=== PATIENT | male | born 1955 | race Caucasian/White ===

== ENCOUNTER 2020-02-23 15:49 | Outpatient (CLI) | payer MEDICARE, SELFPAY ==
--- NOTE | ~2020-02-23 | MR_ITS ---
EXAMINATION: MR lumbar spine wo/w con DATE: 02/23/2020 17:40 INDICATION: Lumbar radiculopathy. TECHNIQUE: Magnetic resonance imaging (MRI) of the lumbar spine was performed without and with 20 mL MultiHance intravenous contrast. Sequences included sagittal T2-weighted FSE, sagittal T2-weighted FS FSE, and sagittal and axial T1-weighted FSE. Postcontrast sequences included axial T2-weighted FSE a nd axial and sagittal T1-weighted FS FSE. COMPARISON: Lumbar spine MRI 12/05/2017 FINDINGS: There is 8 degrees dextrocurvature of lumbar spine. There is 4 mm retrolisthesis of L1 on L 2 and L2 on L3. There is a chronic burst fracture of L1 with 2/5 loss of height. There are changes of posterior fusion procedure from L3 to L5 with pedicle screws and laminectomies. There is a 2.3 x 0.9 x 1.9 cm fluid collection in the postlaminectomy space, consistent with a seroma. There is severely decreased disc height at L1-L2 and L2-L3, moderately decreased disc height at L3-L4, mildly decreased disc height at L4-L5, and severely decreased disc height at L5-S1. The distal spinal cord signal int ensity is normal. The conus medullaris is at L1. The following disc levels are specifically discussed : L1-L2: The disc is bulging. There is severe bilateral facet joint osteoarthritis. There is mild right and moderate left neural foraminal stenosis. There is mild central canal stenosis. L2-L3: The disc is bulging and has an annular fissure. There is severe bilateral facet joint osteoart hritis. There is moderate bilateral neural foraminal stenosis. There is severe central canal stenosis . L3-L4: The disc is bulging and has an annular fissure. There is mild bilateral facet joint hypertroph y. There is mild bilateral neural foraminal stenosis. There is mild central canal stenosis. L4-L5: The disc is bulging and has an annular fissure. There is severe bilateral facet joint hypertro phy. There is mild bilateral neural foraminal stenosis. There is mild central canal stenosis. L5-S1: The disc is bulging and has an annular fissure. There is severe right and moderate left facet joint osteoarthritis. There is mild bilateral neural foraminal stenosis. There is mild central canal stenosis. IMPRESSION: 1. Severe lumbar spondylosis, stable from 12/05/2017. 2. Posterior fusion procedure from L3 to L5. Reviewed, dictated and finalized at location E.
[2020-02-23 17:01] LABS: Estimated Glomerular Filt Rate > 60
== END 2020-02-23 15:50 | disposition home or self-care (01) ==
PROVIDERS: PCP Internal Medicine
DX: M47.26 Other spondylosis with radiculopathy, lumbar region (principal); Z98.1 Arthrodesis status
CPT/HCPCS: 36415; 72158; A9577

== ENCOUNTER 2020-06-29 08:27 | Outpatient (CLI) | payer MEDICARE, SELFPAY ==
--- NOTE | ~2020-06-29 | NM_ITS ---
EXAMINATION: NM bone 3 phase DATE: 06/29/2020 12:36 INDICATION: Other mechanical complication of other specified internal prosthetic. TECHNIQUE: 25.2 mCi Tc-99m HDP was administered intravenously. Scintigrams of the knees were obtained in angiographic, blood pool, and delayed phases. COMPARISON: Bilateral knee radiographs 05/05/2020 FINDINGS: Angiographic phase images are normal. The intermediate static and delayed phases images dem onstrate increased activity in both knees at the distal femora, proximal tibiae, and patellae adjacen t to the arthroplasties. The radiographs demonstrate no periprosthetic lucencies to suggest loosening or infection. IMPRESSION: 1. Increased activity around the arthroplasties of both knees, which is a nonspecific finding and ma y be normal or may be a sign of loosening or infection. Reviewed, dictated and finalized at location A. IMPRESSION: 1. Increased activity around the arthroplasties of both knees, which is a nons pecific finding and may be normal or may be a sign of loosening or infection.
--- NOTE | ~2020-06-29 | XR_ITS ---
XR lumbar spine 2-3V 06/29/2020 09:12 Indication: Low back pain Procedure: 3 views lumbar spine Comparison: MRI dated 02/23/2020 Findings: There is subtle retrolisthesis at L1-2. There is chronic burst fracture of L1. There is dis c narrowing at all lumbar levels. There are changes of posterior fusion from L3-L5 with pedicle screw s and laminectomies. There is lateral bone graft mass at the fusion levels. Sacral foramen are symmet cesar. There is a left hip arthroplasty. No significant change to alignment from MRI overlying for diff erences of technique. Impression: 1: Severe lumbar spondylosis, stable alignment. 2: Posterior spinal fusion at L3-L5. Reviewed, dictated and finalized at location A. Impression: 1: Severe lumbar spondylosis, stable alignment. 2: Posterior spinal fusion at L3-L5.
== END 2020-06-29 08:28 | disposition home or self-care (01) ==
PROVIDERS: PCP Internal Medicine; Referring Provider Neurological Surgery; Visit Provider Orthopaedic Surgery
DX: T85.698A Other mechanical complication of other specified internal prosthetic devices, implants and grafts, initial encounter (principal); M47.896 Other spondylosis, lumbar region; Z98.1 Arthrodesis status
CPT/HCPCS: 72100; 78315; A9561

== ENCOUNTER 2020-08-11 10:00 | Outpatient (CLI) | payer MEDICARE, SELFPAY ==
--- NOTE | 2020-08-11 | ECG_ITS ---
Measurements Intervals [place] Rate: 84 P: [place]: 0 QRS: -12 QRSD: 108 T: 8 QT: 394 QTc: 468 Interpretive Statements ATRIAL FIBRILLATION BORDERLINE T WAVE ABNORMALITY- INFERIOR LEADS ABNORMAL ECG Electronically Signed On 08-11-2020 10:47:00 BAG SEALER by Shen Parsons D.O.
== END 2020-08-11 10:01 | disposition home or self-care (01) ==
LOC: ANHCARD 10:03
PROVIDERS: PCP Internal Medicine; Visit Provider Orthopaedic Surgery
DX: Z01.818 Encounter for other preprocedural examination (principal); I48.91 Unspecified atrial fibrillation
CPT/HCPCS: 93005

== ENCOUNTER 2020-08-19 11:27 | Emergency (ER) | payer MEDICARE, SELFPAY ==
--- NOTE | ~2020-08-19 | CT_ITS ---
EXAMINATION: CTA chest PE protocol DATE: 08/19/2020 13:40 INDICATION: Chest pain. COVID-19 pneumonia. TECHNIQUE: Computed tomography angiography (CTA) of the chest was performed with 100 mL Omnipaque-350 intravenous contrast timed to evaluate the pulmonary arteries. Coronal maximum intensity projection 3D-reconstructions were created by the technologist. Automated exposure control and iterative reconst ruction technique were employed. The dose-length product was 946.95 mGy-cm. COMPARISON: CT abdomen 03/26/2008, chest single view 08/19/2020 FINDINGS: There are peripheral groundglass opacities in all lobes, left worse than right. No pleural effusion. The heart size is normal. There are coronary artery calcifications. No pericardial effusion . There is no pulmonary embolus. There are gallstones in the gallbladder, which is normal in size. Gy necomastia is noted. There is a multinodular goiter. There are bridging endplate osteophytes at multi ple levels in the spine, consistent with diffuse idiopathic skeletal hyperostosis (DISH). There is mo derate thoracic spondylosis. IMPRESSION: 1. No pulmonary embolus. 2. Multifocal peripheral lung disease, consistent with COVID-19 pneumonia. Reviewed, dictated and finalized at location A. E SPLITTER
--- NOTE | ~2020-08-19 | XR_ITS ---
EXAMINATION: XR chest 1V portable DATE: 08/19/2020 13:11 INDICATION: COVID-19 pneumonia. TECHNIQUE: A single frontal view of the chest was obtained on 2 radiographs. COMPARISON: Chest 2 views 10/05/2018 FINDINGS: There are mild airspace opacities in left mid and lower lung zones. No pleural effusion or pneumothorax. The heart size is normal. IMPRESSION: 1. Mild airspace opacities in left mid and lower lung zones, consistent with pneumonia. Reviewed, dictated and finalized at location A. TENANCE MECHANIC MILLWRIGHT IMPRESSION: 1. Mild airspace opacities in left mid and lower lung zones, consistent with pn eumonia.
[2020-08-19 11:34] VITALS: BP 107/63; PULSE 109; RESP 18; TEMP 38.1; O2SAT 99
--- NOTE | 2020-08-19 11:44 | ED.SOB ---
HPI - SOB/Dyspnea General Chief Complaint: Shortness of Breath/Dyspnea Stated Complaint: covid +, CP, SOB Time Seen by Provider: 08/19/20 11:44 Source: patient Mode of arrival: ambulatory Limitations: no limitations History of Present Illness HPI Narrative: Patient is a 64-year-old gentleman with a history of hypertension, congestive heart failure, coronary artery disease with history of stent, A. fib, taking Plavix and Eliquis, who presents for evaluation of chest pain and shortness of breath in the setting of a Covid infection. Patient has had symptoms for over 10 days, reporting intermittent fevers, myalgias, diarrhea. He denies nausea. He reports feeling diffusely weak without focal numbness or weakness. Patient states the chest pain has been constant over his chest over the past several days, described as a heaviness without radiation to the jaw, shoulder or back. No associated diaphoresis. Patient feels mostly short of breath with exertion. Related Data Allergies Allergy/AdvReac Type Severity Reaction Status Date / Time No Known Allergies Allergy Unknown Verified 08/05/19 18:48 No Known Allergies Allergy Uncoded 08/05/19 18:48 Review of Systems Review of Systems: Narrative: CONSTITUTIONAL: Reports fever and chills EYES: Denies visual changes, redness, or discharge. ENT: Reporting congestion CARDIOVASCULAR: Reporting chest pain without edema RESPIRATORY: Reporting cough and shortness of breath GASTROINTESTINAL: Denies abdominal pain, nausea, vomiting, reporting diarrhea GENITOURINARY: Denies dysuria or hematuria. SKIN: Denies rash or itching. MUSCULOSKELETAL: Denies back pain, joint pain, reporting myalgias NEUROLOGIC: Denies headache, numbness, reports feeling weak PMFSH Past Medical History Medical History Atrial fibrillation Coronary artery disease Hyperlipidemia Hypertension Surgical History Surgical History History of coronary artery stent placement Social History Social History (Updated 08/19/20 @ 12:26 by Varsha Hernandez MD) Alcohol intake: never Substance use: never Living arrangements: with family Gender identity (if verbalized by the patient): Male Exam Narrative: Exam Narrative: GENERAL: Awake, alert, conversant HEAD: Normocephalic, atraumatic. EYES: PERRLA and EOMI. ENT: Nares clear, no rhinorrhea or epistaxis. Mucous membranes moist. NECK: Supple. CHEST: Mild tachypnea, no yuly respiratory distress, breathing is even and nonlabored, no audible wheezing HEART: Tachycardic rate, sinus rhythm ABDOMEN:Non distended, non tender EXTREMITIES: Normal range of motion. No edema. SKIN: Warm, dry, chronic skin changes bilateral lower extremities, no calf tenderness NEURO:No focal deficits. Alert and oriented x3 Course Vital Signs Vital signs: Vital Signs Temperature 38.1 C H 08/19/20 11:34 Pulse Rate 109 H 08/19/20 11:34 Respiratory Rate 18 08/19/20 11:34 Blood Pressure 107/63 08/19/20 11:34 Pulse Oximetry 99 08/19/20 11:34 Temperature 38.1 C H 08/19/20 11:34 Pulse Rate 118 H 08/19/20 12:40 Respiratory Rate 20 08/19/20 12:40 Blood Pressure 103/82 08/19/20 12:40 Pulse Oximetry 97 08/19/20 12:40 MDM - SOB/Dyspnea MDM Narrative Medical decision making narrative: Patient presenting for evaluation of cough, shortness of breath in the setting of a Covid diagnosis. The time of assessment, patient is not having any respiratory distress. Oxygen saturations are 99% on room air. He is mildly tachycardic, rate is atrial fibrillation which she has a history of and is anticoagulated for. IV access obtained and labs are drawn. Laboratory results are reassuring. No leukocytosis. No anemia. No acute kidney injury or electrolyte derangement. No elevation in troponin. D-dimer was a bit elevated so we obtain a CTA which shows no evidence of PE. Patient w
[2020-08-19 11:52] LABS: Basophils Percent Auto 0.2 % (0.2-1.2); Hematocrit 42.5 % (42.0-52.0); Hemoglobin 14.5 g/dL (14.0-18.0); Immature Granulocyte Absolute 0.02 K/mm3 (0.00-0.031); Immature Granulocyte Percent A 0.4 % (0-0.5); Lymphocytes Absolute Auto 1.16 K/mm3 (0.9-3.2); Lymphocytes Percent Auto 21.8 % (18.3-44.2); Mean Corpuscular HGB Conc 34.1 g/dl (32-36); Mean Corpuscular Volume 93.8 fl (80-100); Mean Platelet Volume 11.2 fl (7.4-10.4); Monocytes Absolute Auto 0.4 K/mm3 (0.1-0.6); Monocytes Percent Auto 7.5 % (2.6-8.5); Neutrophils Absolute Auto 3.7 K/mm3 (1.3-6.7); Neutrophils Percent Auto 70.1 % (45.5-73.1); Platelet Count Result 197 k/mm3 (150-375); Red Blood Count 4.53 M/mm3 (4.6-6.20); Red Cell Distribution Width 12.2 % (11.5-14.5); White Blood Count 5.3 K/mm3 (4.5-10.0)
[2020-08-19 12:03] LABS: Alanine Aminotransferase 26 U/L (4-50); Albumin Level 4.3 g/dL (3.5-5.1); Alkaline Phosphatase 82 U/L (38-126); Anion Gap 13 mmol/L (8-16); Aspartate Amino Transferase 49 U/L (17-59); Bilirubin,Total 0.8 mg/dL (0.2-1.3); Blood Urea Nitrogen 15 mg/dL (9-20); Calcium 9.5 mg/dL (8.4-10.2); Carbon Dioxide 26 mmol/L (22-30); Chloride 97 mmol/L (98-107); Estimated CRCL calculation 112 ml/min; Estimated Glomerular Filt Rate > 60; Glucose 117 mg/dL (75-110); Potassium 3.4 mmol/L (3.4-5.0); Sodium 136 mmol/L (137-145)
[2020-08-19 12:38] LABS: Alveolar/Arterial O2 Gradient 43.8 mmHg; Base Excess ABG -0.8 mEq/l (+/-2.0); Carboxyhemoglobin 0.8 % THb (0-2.0); Fractional Inspired Oxygen 21 %; HCO3 ABG 20.6 mEq/l (22.0-26.0); Methemoglobin ABG 0.3 %THb (0-1.5); Oxygen Content ABG 18.7 %vol (16.0-22.0); Oxygen Saturation ABG 96.4 % (95.0-100.0); Oxyhemoglobin 94.1 % THb (90.0-100.0); PO2 ABG 74.8 mmHg (80.0-100.0); PO2 FiO2 Ratio Arterial Blood 3.56 %; Reduced Hemoglobin 4.8 %THb (0-5.0); Total Hemoglobin 14.1 g/dL (12.0-18.0)
[2020-08-19 12:39] LABS: pH ABG 7.516 (7.350-7.450)
[2020-08-19 12:40] VITALS: BP 103/82; PULSE 118; RESP 20; O2SAT 97
[2020-08-19 12:40] LABS: Device ROOM AIR; Modified Allen's Test Pass; Site Drawn LEFT RADIAL
[2020-08-19 12:49] LABS: CRP 3.1 mg/dL (<1.0); Lactate Dehydrogenase 637 U/L (313-618)
[2020-08-19 12:59] LABS: NT Pro B Type Natriuretic Pept 512 PG/ML (5-100); Troponin I < 0.012 ng/mL (0.000-0.034)
[2020-08-19] MEDS: SODIUM CHLORIDE 0.9% IV 1,000 ML 999 ML IV CONT (13:13)
[2020-08-19] MEDS: ONDANSETRON INJ 4 MG/2 ML VIAL IV PUSH (13:14)
[2020-08-19] MEDS: MORPHINE SULFATE (*CRX) 4 MG/ML INJ IV PUSH (13:15)
[2020-08-19] MEDS: ACETAMINOPHEN 500 MG TABLET 1000 MG PO (13:17)
[2020-08-19 13:18] LABS: Prothrombin Time 14.1 Seconds (11.1-14.7)
[2020-08-19 13:19] LABS: Lactic Acid Reflex 1.6 mmol/L (0.7-2.1); Partial Thromboplastin Time 32.6 SECONDS (22.3-36.8)
[2020-08-19 13:21] LABS: D Dimer 0.93 ug/mL (<0.48)
[2020-08-19 14:41] VITALS: BP 110/65; PULSE 90; RESP 17; O2SAT 100
--- NOTE | 2020-08-19 14:43 | PC.NURSE ---
PT was walked with pulse ox on finger, Pt stats went from 97-96% . Will inform Dr. Hernandez of this.
[2020-08-19 14:55] LABS: Add Urine Microscopic? YES; Appearance Urine Clear (Clear); Bilirubin Urine Negative (Negative); Blood Urine Negative (Negative); Color Urine Yellow (Yellow); Glucose Urine UA Negative (Negative); Ketones Urine Negative (Negative); Leukocyte Esterase Ur Negative LEU/UL (Negative); Mucus Urine Rare /lpf; Nitrate Urine Negative (Negative); Protein Urine 1+ mg/dL (Negative); RBC Urine 0-2 /hpf (0-2); Squamous Epithelial Cell Urine Rare /hpf (Few); WBC Urine 0-3 /hpf
[2020-08-19 14:56] LABS: Specific Grav Ur 1.043 (1.001-1.035)
--- NOTE | 2020-08-19 15:39 | ECG_ITS ---
Measurements Intervals [place] Rate: 112 P: [place]: 0 QRS: -21 QRSD: 113 T: -11 QT: 343 QTc: 470 Interpretive Statements ATRIAL FIBRILLATION WITH RAPID VENTRICULAR RESPONSE INTRAVENTRICULAR CONDUCTION DELAY BASELINE ARTIFACT- I, III, AVL, AVF, V6 ABNORMAL ECG Electronically Signed On 08-19-2020 16:41:24 ELECTRIC MELT OPERATOR by Shen Parsons D.O.
== END 2020-08-19 15:03 | disposition home or self-care (01) ==
PROVIDERS: Emergency Provider Emergency Medicine; PCP Internal Medicine
DX: U07.1 COVID-19 (principal); E86.0 Dehydration; I11.0 Hypertensive heart disease with heart failure; I50.9 Heart failure, unspecified; I25.10 Atherosclerotic heart disease of native coronary artery without angina pectoris; Z95.5 Presence of coronary angioplasty implant and graft; I48.91 Unspecified atrial fibrillation; Z79.01 Long term (current) use of anticoagulants; Z79.02 Long term (current) use of antithrombotics/antiplatelets; R91.8 Other nonspecific abnormal finding of lung field
CPT/HCPCS: 36415; 36600; 71045; 71275; 80053; 81001; 82375; 82728; 82805; 83050; 83605; 83615; 83880; 84484; 85025; 85380; 85610; 85730; 86140; 87040; 93005; 96361; 96374; 96375; 99284; A9270; J2270; J2405; J7030; Q9967

== ENCOUNTER → 2020-11-19 01:06 | Outpatient (CLI) | payer MEDICARE, SELFPAY ==
[2020-11-19 19:48] LABS: SARS-CoV-2 RNA PCR Negative
== END ==
PROVIDERS: PCP Internal Medicine; Visit Provider Internal Medicine Gastroenterology
DX: Z01.812 Encounter for preprocedural laboratory examination (principal); Z20.822 Contact with and (suspected) exposure to COVID-19
CPT/HCPCS: C9803; U0003; U0005

== ENCOUNTER 2020-11-23 01:10 | Day surgery (SDC) | payer MEDICARE, SELFPAY ==
[2020-11-07 13:06] VITALS: BMI 25.3
--- NOTE | 2020-11-07 13:24 | PC.NURSE ---
Pt. tested positive for COVID 08/09/2020. Symptoms included: headache, fever, loss of appetite, and congestion. Nay Abernathy RN 11/07/20 [id number]
[2020-11-23 09:54] VITALS: BP 125/80; PULSE 82; RESP 18; TEMP 36.2; O2SAT 98; BMI 39.2
[2020-11-23] MEDS: LACTATED RINGERS 1,000 ML 150 ML IV CONT (10:08)
--- NOTE | 2020-11-23 10:31 | WPDANESEPPF ---
Anes - Initial Pre Proc Eval Procedure: Operation Date: 11/23/20 10:30 Proposed Procedures p Screening Colonoscopy - Glenn Aguero MD Date/Time: 11/23/20 10:31 Surgeon: Glenn Aguero MD Pre Op Diagnosis: personal hx colon polyps Patient Data Age: 64 Gender: M Height: 6 ft 5 in Weight: 150.2 kg Last Vital Signs Temp 36.2 C L 11/23/20 09:54 Pulse 82 11/23/20 09:54 Resp 18 11/23/20 09:54 BP 125/80 11/23/20 09:54 Pulse Ox 98 11/23/20 09:54 Allergies Allergy/AdvReac Type Severity Reaction Status Date / Time No Known Allergies Allergy Unknown Verified 11/23/20 09:47 Home Medications Medication Instructions Recorded Confirmed Type allopurinol 300 mg PO DAILY 11/07/20 11/07/20 History amlodipine 5 mg PO DAILY 11/07/20 11/07/20 History amoxicillin 500 mg PO DAILY PRN 11/07/20 11/07/20 History apixaban [Eliquis] 5 mg PO DAILY 11/07/20 11/23/20 History atorvastatin 40 mg PO DAILY 11/07/20 11/07/20 History carvedilol 6.25 mg PO BID 11/07/20 11/07/20 History cholecalciferol (vitamin D3) 50 mcg PO DAILY 11/07/20 11/07/20 History clopidogrel 75 mg PO DAILY 11/07/20 11/23/20 History furosemide 20 mg PO DAILY 11/07/20 11/07/20 History hydrochlorothiazide 25 mg PO DAILY 11/07/20 11/07/20 History [id number]-[id number]-vit K-lycop 1 tablet PO DAILY 11/07/20 11/07/20 History [Men's Multivitamin] potassium chloride 20 meq PO DAILY 11/07/20 11/07/20 History quinapril 40 mg PO DAILY 11/07/20 11/07/20 History sodium,potassium,mag sulfates See Rx Instructions .ROUTE 11/07/20 Rx [Suprep Bowel Prep Kit] .COMPLEX #1 ml spironolactone 25 mg PO DAILY 11/07/20 11/07/20 History Patient hx anesthesia problems: none Family hx anesthesia problems: none PMFSH Past Medical History Medical History Atrial fibrillation Coronary artery disease Hyperlipidemia Hypertension Surgical History Surgical History History of coronary artery stent placement Social History Social History Smoking status: Never smoker Alcohol intake: never Alcohol use details: very rarely Substance use: never Living arrangements: with family Gender identity (if verbalized by the patient): Male Spiritual care concerns: No Anes - Eval Final PreProcedure Day of Procedure 11/23/20 10:31 Patient weight: morbidly obese Heart: irregular rhythm Lungs: clear to auscultation Airway: Mallampati scale class II Neurological: alert and oriented Last oral intake: >/= 8 hours ASA classification: III Emergent: no Anesthetic plan: proceed Anesthesia type and monitoring: general GIVS and standard monitoring Informed Consent: The patient's anesthetic plan and its attendant risks and benefits were discussed with the patient/family/POA. Questions were solicited and answers provided to the satisfaction of the patient/family/POA.
--- NOTE | 2020-11-23 10:34 | PM.HPGS ---
History of Present Illness History of Present Illness Consent: Risks, benefits, and alternatives have been discussed and questions answered. Patient agrees to proceed with procedure. Chief complaint: personal hx colon polyps Narrative: Du Anderson is a 64 year old male with colon polyps about 5 years ago. Review of Systems Constitutional: Constitutional: Denies headache(s) and Denies weakness Eyes: Eyes: Denies blurry vision ENT: Reports Normal hearing present, Denies headache(s) and Denies neck pain Cardiovascular: Cardiovascular: Denies chest pain and Denies dyspnea Respiratory: Respiratory: Denies dyspnea Gastrointestinal: Gastrointestinal: Reports no additional gastrointestinal complaints Genitourinary: Genitourinary: Denies dysuria Musculoskeletal: Musculoskeletal: Denies neck pain Integumentary/Breasts: Skin/Breast: Denies dry skin Neurologic: Reports Normal hearing present, Denies headache(s) and Denies weakness Psychiatric: Psychiatric: Denies anxiety Endocrine: Endocrine: Denies change in body appearance Hematologic/Lymphatic: Hematologic/Lymphatic: Denies easy bleeding Allergic/Immunologic: Allergic/Immunologic: Denies urticaria PMFSH Past Medical History Medical History Atrial fibrillation Coronary artery disease Hyperlipidemia Hypertension Surgical History Surgical History History of coronary artery stent placement Social History Social History Smoking status: Never smoker Alcohol intake: never Alcohol use details: very rarely Substance use: never Living arrangements: with family Gender identity (if verbalized by the patient): Male Spiritual care concerns: No Meds Home Medications and Allergies Home Medications Medication Instructions Recorded Confirmed Type allopurinol 300 mg PO DAILY 11/07/20 11/07/20 History amlodipine 5 mg PO DAILY 11/07/20 11/07/20 History amoxicillin 500 mg PO DAILY PRN 11/07/20 11/07/20 History apixaban [Eliquis] 5 mg PO DAILY 11/07/20 11/23/20 History atorvastatin 40 mg PO DAILY 11/07/20 11/07/20 History carvedilol 6.25 mg PO BID 11/07/20 11/07/20 History cholecalciferol (vitamin D3) 50 mcg PO DAILY 11/07/20 11/07/20 History clopidogrel 75 mg PO DAILY 11/07/20 11/23/20 History furosemide 20 mg PO DAILY 11/07/20 11/07/20 History hydrochlorothiazide 25 mg PO DAILY 11/07/20 11/07/20 History cuznhgqb-oqh-qmpvn-vit K-lycop 1 tablet PO DAILY 11/07/20 11/07/20 History [Men's Multivitamin] potassium chloride 20 meq PO DAILY 11/07/20 11/07/20 History quinapril 40 mg PO DAILY 11/07/20 11/07/20 History sodium,potassium,mag sulfates See Rx Instructions .ROUTE 11/07/20 Rx [Suprep Bowel Prep Kit] .COMPLEX #1 ml spironolactone 25 mg PO DAILY 11/07/20 11/07/20 History Allergies Allergy/AdvReac Type Severity Reaction Status Date / Time No Known Allergies Allergy Unknown Verified 11/23/20 09:47 Vital Signs Vital Signs - 24 hr 11/23/20 09:54 Temperature 97.1 F L Pulse Rate 82 Respiratory Rate 18 Blood Pressure 125/80 Pulse Oximetry 98 Exam Const: General: comfortable and no acute distress HENMT: General nose exam: Normal nares present Eyes: General: appearance normal, both eyes and all related structures Neck: Neck: no JVD Resp: Auscultation: clear to auscultation bilaterally Cardio: Rate: regular rate Rhythm: regular rhythm GI: Inspection: non-distended GI Palp: Yes Soft to palpation Skin: General skin exam: normal color Neuro: General: gait normal Speech: normal speech Extrem: General: normal to inspection Psych: Mental Status: mental status grossly normal Assessment and Plan Assessment and plan (1) Adenomatous colon polyp: Code(s): D12.6 - Benign neoplasm of colon, unspecified Status: Acute Assessment and Plan:
[2020-11-23 11:06] VITALS: BP 120/80; PULSE 88; RESP 22; O2SAT 97
--- NOTE | 2020-11-23 11:14 | SUR.PHASEII ---
PT ARRIVED TO RECOVERY WITH NASAL PACKING FOR NOSE BLEED. SPOKE WITH DR FALK ABOUT WHEN PT SHOULD RESTART BLOOD THINNERS. PER DR FALK PT SHOULD RESTART PLAVIX AND ELIQUIS IN 3 DAYS, PT NOTIFIED AND STATES UNDERSTANDING.
[2020-11-23 11:16] VITALS: BP 110/78; PULSE 86; RESP 20; O2SAT 98
[2020-11-23 11:26] VITALS: BP 102/70; PULSE 88; RESP 22; O2SAT 99
[2020-11-23 11:36] VITALS: BP 124/85; PULSE 68; RESP 20; O2SAT 99
--- NOTE | 2020-11-23 11:48 | SUR.PHASEII ---
1140: PT REMOVED NASAL PACKING WITHOUT DIFFICULTY, NO FURTHER BLEEDING OR ISSUES.
== END 2020-11-23 11:47 | disposition home or self-care (01) ==
PROVIDERS: PCP Internal Medicine; Visit Provider Internal Medicine Gastroenterology
PROC: 0DJD8ZZ Inspection of Lower Intestinal Tract, Via Natural or Artificial Opening Endoscopic (ICD-10-PCS; CPT 45378; principal; 2020-11-23 10:30)
DX: Z12.11 Encounter for screening for malignant neoplasm of colon (principal); K63.89 Other specified diseases of intestine; K62.1 Rectal polyp; K57.30 Diverticulosis of large intestine without perforation or abscess without bleeding; K64.8 Other hemorrhoids; I48.91 Unspecified atrial fibrillation; I25.10 Atherosclerotic heart disease of native coronary artery without angina pectoris; I10 Essential (primary) hypertension; E78.5 Hyperlipidemia, unspecified; Z79.01 Long term (current) use of anticoagulants; Z79.02 Long term (current) use of antithrombotics/antiplatelets; Z95.5 Presence of coronary angioplasty implant and graft; E66.01 Morbid (severe) obesity due to excess calories; Z68.39 Body mass index [BMI] 39.0-39.9, adult
CPT/HCPCS: 45385; 88305; C9803; J2704; J7120; U0003; U0005

== ENCOUNTER 2024-09-28 00:43 | Day surgery (SDC) | payer MEDICARE, SELFPAY ==
[2024-09-18 10:54] VITALS: BMI 40.1
--- NOTE | 2024-09-24 12:35 | PC.NURSE ---
Spoke with patient regarding medication plavix and eliquis. Patient verbalizes understanding that the last dose is to be taken on respectively 09/23/24 and 09/25/2024 and the Endoscopist will instruct them when to restart after the procedure.
[2024-09-28 07:23] VITALS: BP 151/93; PULSE 86; RESP 18; TEMP 36.2; O2SAT 99
[2024-09-28] MEDS: LACTATED RINGERS 1,000 ML 150 ML IV CONT (07:34)
--- NOTE | 2024-09-28 08:17 | P.PNAN_ITS ---
Anes - Initial Pre Proc Eval Procedure: Operation Date: 09/28/24 08:30 Proposed Procedures p Colonoscopy - Glenn Aguero MD Date/Time: 09/28/24 08:17 Surgeon: Glenn Aguero MD Pre Op Diagnosis: Personal hx of colon polyps Patient Data Age: 68 Gender: M Height: 1.93 m Weight: 150.6 kg Last Vital Signs Temp 97.1 F L 09/28/24 07:23 Pulse 86 09/28/24 07:23 Resp 18 09/28/24 07:23 BP 151/93 H 09/28/24 07:23 Pulse Ox 99 09/28/24 07:23 O2 Del Method Room Air 09/28/24 07:23 Allergies Allergy/AdvReac Type Severity Reaction Status Date / Time rosuvastatin (From Crestor) AdvReac Abdominal Verified 09/28/24 07:20 Pain Home Medications ?Medication ?Instructions ?Recorded ?Confirmed ?Type allopurinol 300 mg tablet 300 mg PO DAILY 11/07/20 09/28/24 History apixaban 5 mg tablet (Eliquis) 5 mg PO DAILY 11/07/20 09/28/24 History atorvastatin 40 mg tablet 40 mg PO DAILY 11/07/20 09/28/24 History carvedilol 6.25 mg tablet 6.25 mg PO BID 11/07/20 09/28/24 History cholecalciferol (vitamin D3) 25 50 mcg PO DAILY 11/07/20 09/28/24 History mcg (1,000 unit) capsule clopidogrel 75 mg tablet 75 mg PO DAILY 11/07/20 09/28/24 History furosemide 20 mg tablet 20 mg PO DAILY 11/07/20 09/28/24 History nzyvxhid-eglggrbb-qycrm acid 400 1 tablet PO DAILY 11/07/20 09/28/24 History mcg-vit K 20 mcg-lycop 300 mcg tablet (Men's Multivitamin) potassium chloride 20 mEq 20 meq PO DAILY 11/07/20 09/28/24 History tablet,extended release(part/cryst) dapagliflozin propanediol 5 mg 5 mg PO DAILY 09/17/22 09/28/24 History tablet (Farxiga) sacubitril 24 mg-valsartan 26 mg 1 tablet PO BID 09/17/22 09/28/24 History tablet (Entresto) Patient hx anesthesia problems: none Family hx anesthesia problems: none Results Review: All pre-operative results and documents have been reviewed as part of the pre- operative evaluation. [facility] Past Medical History Medical History Adenomatous colon polyp Atrial fibrillation Coronary artery disease Hyperlipidemia Hypertension Surgical History Surgical History History of incision and drainage I&D perirectal abscess 09/17/2022 History of coronary artery stent placement Family History Family History Other Heart disease Hypertension Social History Social History Smoking status: Never smoker Alcohol intake: current Alcohol use details: once a week Substance use: never Substance use type: does not use Living arrangements: with family Gender identity (if verbalized by the patient): Male Spiritual care concerns: No Anes - Eval Final PreProcedure Day of Procedure 09/28/24 08:17 Patient weight: morbidly obese Heart: regular rate and rhythm Lungs: clear to auscultation Airway: Mallampati scale class II Neurological: alert and oriented ASA classification: IV Emergent: no Anesthetic plan: proceed Anesthesia type and monitoring: general GIVS and standard monitoring Results Review: All pre-operative results and documents have been reviewed as part of the pre- operative evaluation. Cardiology note reviewed. S/p PTCA multiple times, most recently 2021. ECHO 2023 w LVEF 43%. Afib, PHILLIP, hyperlipidemia. Informed Consent: The patient's anesthetic plan and its attendant risks and benefits were discussed with the patient/family/POA. Questions were solicited and answers provided to the satisfaction of the patient/family/POA.
--- NOTE | 2024-09-28 08:17 | PM.HPGS ---
History of Present Illness History of Present Illness Consent: Risks, benefits, and alternatives have been discussed and questions answered. Patient agrees to proceed with procedure. 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. Review of Systems Review of Systems: All systems reviewed & are unremarkable except as noted in HPI and below PMFSH Past Medical History Medical History (Updated 10/29/22 @ 14:53 by Kristy Stone) Adenomatous colon polyp Atrial fibrillation Coronary artery disease Hyperlipidemia Hypertension Surgical History Surgical History (Updated 10/02/22 @ 10:40 by Clara Felix) History of incision and drainage I&D perirectal abscess 09/17/2022 History of coronary artery stent placement Family History Family History Other Heart disease Hypertension Social History Social History Smoking status: Never smoker Alcohol intake: current Alcohol use details: once a week Substance use: never Substance use type: does not use Living arrangements: with family Gender identity (if verbalized by the patient): Male Spiritual care concerns: No Meds Home Medications and Allergies Home Medications ?Medication ?Instructions ?Recorded ?Confirmed ?Type allopurinol 300 mg tablet 300 mg PO DAILY 11/07/20 09/28/24 History apixaban 5 mg tablet (Eliquis) 5 mg PO DAILY 11/07/20 09/28/24 History atorvastatin 40 mg tablet 40 mg PO DAILY 11/07/20 09/28/24 History carvedilol 6.25 mg tablet 6.25 mg PO BID 11/07/20 09/28/24 History cholecalciferol (vitamin D3) 25 50 mcg PO DAILY 11/07/20 09/28/24 History mcg (1,000 unit) capsule clopidogrel 75 mg tablet 75 mg PO DAILY 11/07/20 09/28/24 History furosemide 20 mg tablet 20 mg PO DAILY 11/07/20 09/28/24 History hwenzlus-tcieldio-jpswa acid 400 1 tablet PO DAILY 11/07/20 09/28/24 History mcg-vit K 20 mcg-lycop 300 mcg tablet (Men's Multivitamin) potassium chloride 20 mEq 20 meq PO DAILY 11/07/20 09/28/24 History tablet,extended release(part/cryst) dapagliflozin propanediol 5 mg 5 mg PO DAILY 09/17/22 09/28/24 History tablet (Farxiga) sacubitril 24 mg-valsartan 26 mg 1 tablet PO BID 09/17/22 09/28/24 History tablet (Entresto) Allergies Allergy/AdvReac Type Severity Reaction Status Date / Time rosuvastatin (From Crestor) AdvReac Abdominal Verified 09/28/24 07:20 Pain Vital Signs Vital Signs - 24 hr 09/28/24 07:23 Temperature 97.1 F L Pulse Rate 86 Respiratory Rate 18 Blood Pressure 151/93 H Pulse Oximetry 99 Oxygen Delivery Room Air Exam Const: General: comfortable and no acute distress HENMT: Face/Nose/Sinus: Normal nares present Eyes: General: appearance normal, both eyes and all related structures Neck: Neck: no JVD Resp: Auscultation: clear to auscultation bilaterally Cardio: Rate: regular rate Rhythm: regular rhythm GI: Inspection: non-distended GI Palp: Yes Soft to palpation Skin: General skin exam: normal color Neuro: General: gait normal Speech: normal speech Extrem: General: normal to inspection Psych: Mental Status: mental status grossly normal Assessment and Plan Assessment and plan (1) Adenomatous colon polyp: Code(s): D12.6 - Benign neoplasm of colon, unspecified Status: Acute Assessment and Plan: colonoscopy
[2024-09-28 08:48] VITALS: BP 133/75; PULSE 93; RESP 18; O2SAT 99
[2024-09-28 08:58] VITALS: BP 117/83; PULSE 96; RESP 18; O2SAT 100
[2024-09-28 09:08] VITALS: BP 125/80; PULSE 97; RESP 18; O2SAT 98
--- OUTSIDE RECORDS SUMMARY | 2024-10-05 02:44 | XMS_ITS | Encounter Summary ---
Author Organization [facility] Address [address] [place] [address] Care Team Providers Care Hospital Technician Name Role Phone Gianluca Price MD Primary Care Provider [phone] Reason for Visit * Auth/Cert Specialty Diagnoses / Procedures Referred By Antonietta livingston Referred To Contact Diagnoses na Procedures ARTHROPLASTY TOTAL HIP Referral ID Status Reason Start Date Expiration Date Visits Re quested Visits Authorized [id number] 1 1 Encounter Details Date Type Department Care Team (Late st Contact Info) Description 09/13/2021 10:05 AM REPORT WRITER Anesthesia Event [facility] - Perioperative Surgery [address] [place] [address] Kj Herrmann, [address] [place] [address] Zenon Durham MD [address] [place] [address] Anesthesia Record Procedure Summary Procedure Name Responsible Anesthesiologist Anesthesia Start Time Anesthesia Stop Time RIGHT TOTAL HIP ARTHROPLASTY (Right: Hip) Kj Herrmann DO 09/13/21 1005 09/13/21 1200 Events Date Time Event Comment 09/13/2021 0752 1005 An Start 1005 An Start Data 1010 PT Reassessment 1011 An Induction 1014 An Intubation 1035 Timeout Anesthesia part icipated in timeout at the time documented in the record by nursing. 1036 Incision 1147 An Emergence 1153 Extubation 1153 Electnc Sig This record is electronically signed by the providers listed under staff. 1154 an stop data 1154 ANPTO2 1200 An Stop Meds Name Total midazolam 2 mg/2mL injection 2 mg fentaNYL 100 mcg/2mL injection 200 mcg lidocaine 1% (PF) injection (50 mg/5mL) 100 mg propofol 200 mg/20mL injection 100 mg rocuronium 50 mg/5mL injection 80 mg ondansetron 4 mg/2mL injection 4 mg phenylephrine 100 mcg/mL solution 1,200 mcg dexamethasone 4 mg/mL injection 4 mg ceFAZolin (Ancef) 3,000 mg in 115 mL IVP B 3 g vancomycin (Vancocin) 1,500 mg in 500 mL NaCl IVPB 1,500 mg etomidate 20 mg/10mL injection 20 mg ePHEDrine 50 mg/mL injection 20 mg tranexamic acid 1000 mg/10mL injection 1 ,000 mg sugammadex 200 mg/2mL injection 400 mg lactated ringers infusion 700 mL * Agents Name Exp. Sevoflurane Exp. N2O O2 Air Insp. Sevoflurane * Blood No blood administrations on file. Lines, Drains, and Airways Type Details Placement Removal Peripheral IV Date: 09/13/21; Time : 0757; Orientation: Left, Posterior; Placed By: kevyn veronica rn; Tolerance: Well 09/13/21 0757 by Lauren Aldrich RN 09/16/21 1130 by Eileen Nuno RN ETT Date: 09/13/21; Time : 1014; Placed By: CRYS Vargas; Vent: easy with oral airway mask; Induction: Standard IV; Blade Type: Claudio; Blade Size: 4; Laryngoscopy View: Grade 2 (partial cords); Intubation Adjuncts: Stylet, Cricoid Pressure; Tube: Endotracheal Tube; Tube Type: Cuffed-inflated; Tube Size(mm): 8 MM; Depth of Insertion: 23 CM; Measured From: teeth; Attempts: 1; Cuff Vol(mL): 10 mL; Verified By: Direct visualization, Bilateral breath sounds, Chest Auscultation, CO2 Monitor 09/13/21 1014 by Corrina Keyes APRN-CRNA 09/13/21 1153 by Corrina Keyes APRN-CRNA Procedural Site (Incision) 09/13/21; 1036; Right, Lateral; Hip; 09/16/21; 185109/13/21 1036 by Greer Putnam RN 09/16/21 185 by [facility], Auto Release documented in this encounter Social History Tobacco Use Types Packs/Day Years Used Date Smoking Tobacco: Never Smokeless Tobacco: Never Alcohol Use Standard Drinks/Week Comments Yes 0 (1 standard drink = 0.6 oz pur e alcohol) occas AUDIT-C Answer Date Recorded Q1: How often do you have a drink containing alc ohol? Never 09/13/2021 Average Number of Drinks Not on file 021 Q3: How often do you have si x or more drinks on one occasion? Never 09/13/2021 Sex and Gender Information Value Date Recorded Sex Assigned at Not on file Gender Identity Not on file Sexual Orientation Not on file documented as of this encounter Functional Status Functional Status Response Date of Assess ment Is person deaf or have serious hearing difficult y? No 09/13/2021 Is person blind or have serious difficulty seein g? No 09/13/2021 Does person have serious dif ficulty walking/climbing stairs? No 09/13/2021 Does person have difficulty dressing/bathing? No 09/13/2021 Does person have difficulty doing errands alone? No 09/13/2021 Cognitive Status Response Date of Assessm ent Does person have difficulty concentrating/remembering/making decisions? No 09/13/2021 documented as of this encounter Progress Notes * Corrina Keyes APRN-NURSING FACULTY - 09/13/2021 12:04 PM CST ANESTHESIA POSTOP EVALUATION NOTE Procedure: RIGHT TOTAL HIP ARTHROPLASTY (Right Hip) Du Anderson is a 65 year old male Patient Vitals for the past 6 hrs: BP Temp Pulse Resp SpO2 Pain Rating Score #1 Pain Scale/Observation 09/13/21 0754 121/87 97.9 ??F (36.6 ??C) 88 17 97 % 6 N 09/13/21 1158 136/90 98 ??F (36.7 ??C) 92 16 99 % -- B 09/13/21 1200 123/79 -- 91 18 98 % -- -- Anesthesia Type: general ETT * No Diagnosis Codes entered * Mental Status: awake, alert and oriented Neuro Status: No numbness, tingling or visual disturbances Respiratory Function: natural Cardiac Function: stable Postop Pain: acceptable to the patient Postop Hydration: adequate Postop Nausea: none Assessment: no apparent anesthetic complications, patient tolerated procedure well and no evidence of recall Patient Disposition: Release from Anesthesia Care COMPLICATIONS: No complications documented. RT WRITER * Zenon Durham MD - 09/13/2021 7:50 AM CST ANESTHESIA PREOPERATIVE EVALUATION NOTE Procedure: RIGHT TOTAL HIP ARTHROPLASTY (Right ) Vitals: See nursing notes ANESTHESIA PRE-EVALUATION NOTE History of Present Illness: Pre anesthesia clinic notes: +PONV. H/o lumbar spinal fusion in 2013.??Endorses that anesthesia team was??ultimately??unable to place spinal anesthetic for??right knee replacement??surgery??in 2016, though it was attempted.?? Denies any family history of anesthetic complications. ?? CAD s/p stenting x 4 in 2016 A.Fib CHF -- EF 46% per TTE 05/2021 Mild MR per TTE 05/2021 HTN, HLD -compliant with all daily meds- amlodipine, quinapril, carvedilol, furosemide, HCTZ, atorvastatin, Eliquis 5 mg BID, Plavix 75 mg daily -follows [place] [place]Sudhir [place] [facility] OV -cardiology presurgical clearance documentation note is in paper chart. Cardiac Cath 11/2019: (care everywhere): [id number] 3 vessel disease of the RCA, LAD and superior ramus. ??His prior complex stents are patent with mild to moderate restenosis. ??We will continue to medically manage his coronary disease. ?? BP 114/70 / HR 74 here today -denies ever sx of A.Fib- no palpitations or tachycardia. ?? PHILLIP- compliant with nightly CPAP use. ?? Previous Airway Management: ETT Placed: Blade Type: MAC Blade Size: 4 GradeGrade: 1 The patient is a current non-smoker. Physical Exam: Orientation X3 Airway/Mallampati Score: I Mouth Opening Distance: 3 fingerwidths Neck ROM: full TM Distance: > 3 FB Teeth: normal Heart: normal - S1 S2 Lungs: clear to ausculation bilaterally Abdomen Exam: obese Review of Systems: History of anesthetic complications: Yes PONV: Yes Diagnostic Tests: Echo(s) reviewed: Yes. Lab(s) reviewed: Yes. ANESTHESIA PLAN ASA Score: 3 NPO Status: No solids since midnight Anesthesia Plan: general ETT Planned Induction: intravenous Planned Postop Destination: PACU Anesthetic plan was discussed with: patient Anesthetic Plan discussion was: Consented BMI, Height, Weight Tobacco History Estimated body mass index is 41.72 kg/m?? as calculated from the following: Height as of this encounter: 1.956 m (6' 5 ). Weight as of this encounter: 159.6 kg (351 lb 12.8 oz). Social History Tobacco Use Smoking Status Never Smoker Smokeless Tobacco Never Used Alcohol History Drug History Social History Substance and Sexual Activity Alcohol Use Yes Comment: occas Social History Substance and Sexual Activity Drug Use Not Currently Outpatient Medications: Inpatient Medications: No outpatient medications have been marked as taking for the 09/13/21 encounter (Hospital Encounter). Current Facility-Administered Medications Medication Dose Last Admin ??? acetaminophen 1,000 mg ??? ceFAZolin 1 g ??? ceFAZolin 2 g ??? celecoxib 400 mg ??? lactated ringers ??? lidocaine 0.5 mL ??? oxyCODONE CR 12hr 20 mg ??? povidone-iodine ??? vancomycin 1,500 mg Allergies: Allergies Allergen Reactions ??? Rosuvastatin Myalgias Relevant Problems No relevant active problems Problem List: Patient Active Problem List Diagnosis Date Noted ??? Primary osteoarthritis of left hip 12/22/2019 Priority: Not Prioritized Medical History: Past Medical History: Diagnosis Date ??? Atherosclerosis of coronary artery ??? Atrial fibrillation a fib ??? CHF (congestive heart failure) ??? Essential hypertension ??? Obesity ??? PONV (postoperative nausea and vomiting) ??? Pure hypercholesterolemia ??? Sleep apnea Surgical History: Past Surgical History: Procedure Laterality Date ??? CARDIAC CATHETERIZATION, LEFT 2016 4 stents total ??? HIP ARTHROPLASTY, TOTAL Left 12/22/2019 LEFT HIP ARTHROPLASTY ??? HIP ARTHROPLASTY, TOTAL Left 12/22/2019 Left; LEFT HIP ARTHROPLASTY ??? Knee Replacement Right 2016 ??? Knee Replacement Left 2017 ??? LUMBAR SPINE FUSION 2013 Covid Vaccine: Lab Results: Recent Labs Component Name 08/29/21 0830 SODIUM 136 POTASSIUM 3.4* CALCIUM 9.9 CHLORIDE 103 CO2 23 GLUCOSE 104 BUN 12 CREATININE 0.84 No results found for requested labs within last 120 days. Recent Labs Result Component Current Result Albumin 4.0 (08/29/2021) Alkaline Phosphatase 89 (08/29/2021) ALT 16 (08/29/2021) Anion Gap 10 (08/29/2021) AST 16 (08/29/2021) Bilirubin Total 0.6 (08/29/2021) eGFR by MDRD >60 (08/29/2021) RT WRITER documented in this encounter Procedure Notes * Corrina Keyes APRN-CRNA - 09/13/2021 10:37 AM CSTAssociated Order(s): ETT Placement Endotracheal Tube Placement: Patient Location: OR. Intubation Event Date/Time: 09/13/2021 10:14 AM Procedure: intubation (87289). Procedure Section: Sedation: under general anesthesia. Indications for Airway Management: anesthesia Induction: standard IV Patient Position: sniffing Mask Ventilation: easy with oral airway. Blade Type: Claudio Blade Size: 4 Laryngoscopy View: grade 2 (partial cords) Intubation Adjuncts: cricoid pressure and stylet Tube: endotracheal tube Tube type: cuff - inflated Tube Size (MM): 8 Depth of Insertion (CM): 23 Measured From: teeth Cuff volume (mL): 10 Number of Attempts: 1. Placement Verified By: direct visualization, bilateral breath sounds, chest auscultation and CO2 monitor Tube secured with: adhesive tape. Dentition unchanged? Yes Difficult Airway? No. Procedure Start Time: 09/13/2021 10:14 AM. Staff Section Anesthesia Provider: Corrina Keyes APRN-CRNA, Performed the procedure RT WRITER documented in this encounter Miscellaneous Notes * Anesthesia Transfer of Care - Corrina Keyes APRN-CRNA - 09/13/2021 12:00 PM CST ANESTHESIA TRANSFER OF CARE NOTE Today's Date: 09/13/2021 Date of : 1955 Patient: Du Anderson Procedure(s): RIGHT TOTAL HIP ARTHROPLASTY Surgeon(s): Primary: Maryjane Segura MD Preop Diagnosis: * No Diagnosis Codes entered * Pre-op Meds (From admission, onward) Start Stop Status Route Frequency Ordered 09/13/21 0745 acetaminophen (Tylenol) tablet 1,000 mg 09/13 0750 Completed PO PRE-OP ONCE 09/13/21 0740 09/13/21 0745 ceFAZolin (Ancef) 3,000 mg in 115 mL IVPB 09/13 1020 Completed IV ONCE 09/13/21 0740 09/13/21 0745 celecoxib (CeleBREX) capsule 400 mg 09/13 0749 Completed PO PRE-OP ONCE 09/13/21 0740 09/13/21 1025 dexAMETHasone (Decadron) injection -- Sent IV PRN 09/13/21 1040 09/13/21 1036 ePHEDrine injection -- Sent IV PRN 09/13/21 1036 09/13/21 1011 etomidate (Amidate) injection -- Sent IV PRN 09/13/21 1041 09/13/21 1010 fentaNYL (PF) (Sublimaze) injection -- Sent IV PRN 09/13/21 1039 09/13/21 0745 lactated ringers infusion 09/13 0744 Dispensed IV PRE-OP CONTINUOUS 09/13/21 0740 09/13/21 1011 lidocaine PF (Xylocaine MPF) 1 % injection -- Sent IV PRN 09/13/21 1039 09/13/21 0745 lidocaine PF (Xylocaine MPF) 1 % injection 0.5 mL 09/13 0750 Completed INFILTRATION PRE-OP ONCE 09/13/21 0740 09/13/21 1005 midazolam (Versed) injection -- Sent IV PRN 09/13/21 1039 09/13/21 1129 ondansetron (Zofran) injection -- Sent IV PRN 09/13/21 1129 09/13/21 0745 oxyCODONE CR 12hr (OxyCONTIN) tablet 20 mg 09/13 0749 Completed PO PRE-OP ONCE 09/13/21 0740 09/13/21 1026 phenylephrine 100 mcg/mL injection -- Sent IV PRN 09/13/21 1029 09/13/21 0745 povidone-iodine (Betadine) 5 % solution 09/13 0750 Completed NA PRE-OP ONCE 09/13/21 0741 09/13/21 1011 propofol (Diprivan) injection -- Sent IV PRN 09/13/21 1039 09/13/21 1012 rocuronium (Zemuron) injection -- Sent IV PRN 09/13/21 1040 09/13/21 0755 scopolamine (Transderm-Scop) 1 patch -- Verified TD EVERY 72 HOURS PRN 09/13/21 0755 09/13/21 0900 scopolamine patch placement confirmation -- Verified TD 2 TIMES DAILY 09/13/21 0806 09/13/21 1030 tranexamic acid (Cyklokapron) injection -- Sent IV PRN 09/13/21 1038 09/13/21 0745 vancomycin (Vancocin) 1,500 mg in 500 mL NaCl IVPB 09/13 1025 Completed IV PRE-OP ONCE 09/13/21 0740 * No Diagnosis Codes entered * . Allergies Allergen Reactions ??? Rosuvastatin Myalgias Vitals: Patient Vitals for the past 3 hrs: BP Temp Pulse Resp SpO2 09/13/21 1200 123/79 -- 91 18 98 % 09/13/21 1158 136/90 98 ??F (36.7 ??C) 92 16 99 % Lines, Drains, and Airways Type Details Placement Removal Peripheral IV Date: 09/13/21; Time: 756; Orientation: Left, Posterior; Location: Hand; Placed By: kevyn veronica rn; Gauge: 20 Gauge; Locals: Injectable; Tolerance: Well 09/13/[id number] by Lauren Aldrich RN ETT Date: 09/13/21; Time: 1013; Placed By: CRYS Vargas; Vent: easy with oral airway mask; Induction: Standard IV; Blade Type: Claudio; Blade Size: 4; Laryngoscopy View: Grade 2 (partial cords); Intubation Adjuncts: Stylet, Cricoid Pressure; Tube: Endotracheal Tube; Tube Type: Cuffed-inflated; Tube Size(mm): 8 MM; Depth of Insertion: 23 CM; Measured From: teeth; Attempts: 1; Cuff Vol(mL): 10 mL; Verified By: Direct visualization, Bilateral breath sounds, Chest Auscultation, CO2 Monitor 09/13/21 1014 by Corrina Keyes APRN-CRNA 09/13/21 1153 by Corrina Keyes APRN-CRNA Intraprocedure I/O Totals Intake ceFAZolin (Ancef) 3,000 mg in 115 mL IVPB 60.00 mL vancomycin (Vancocin) 1,500 mg in 500 mL NaCl IVPB 500.00 mL Total Intake 560 mL Output Estimated Blood Loss 600 mL Total Output 600 mL Net Net Volume -40 mL Patient Transfer Location: PACU Transport Airway: supplemental O2 and spontaneous respirations Complications: None Handoff Given? Yes Checklist or Protocol - The aldrich handoff elements that must be included in the transfer of care checklist include: 1. Identification of patient. 2. Identification of responsible practitioner (PACU nurse or advanced practitioner). 3. Discussion of pertinent medical history. 4. Discussion of the surgical/procedure course (procedure, reason for surgery, procedure performed). 5. Intraoperative anesthetic management and issue/concerns. 6. Expectations/Plans for the early post-procedure period. 7. Opportunity for questions and acknowledgement of understanding of report from the receiving PACUteam. CRYS Vargas RT WRITER documented in this encounter Plan of Treatment Not on file documented as of this encounter Procedures Procedure Name Priority Date/Time Associated Diagnosis Comments ENDOTRACHEAL TUBE NOTE Routine 09/13/2021 10:37 AM REPORT WRITER documented in this encounter Results * ETT LINE PERFORMABLE (09/13/2021 10:37 AM REPORT WRITER) Narrative Corrina Keyes APRN-CRNA - 09/13/2021 10:37 AM REPORT WRITER Corrina Keyes APRN-CRNA ? 09/13/2021 10:38 AM Endotracheal Tube Placement: ? Patient Location: OR. Intubation Event Date/Time: ??09/13/2021 10:14 AM Procedure: intubation ([id number]). Procedure Section: ?? Sedation: under general anesthesia. Indications for Airway Management: ??anesthesia Induction: standard IV Patient Position: ??sniffing Mask Ventilation: easy with oral airway. Blade Type: Claudio Blade Size: 4 Laryngoscopy View: grade 2 (partial cords) Intubation Adjuncts: cricoid pressure and stylet Tube: endotracheal tube Tube type: cuff - inflated Tube Size (MM): 8 Depth of Insertion (CM): 23 Measured From: teeth Cuff volume (mL): ??10 Number of Attempts: 1. Placement Verified By: direct visualization, bilateral breath sounds, chest auscultation and CO2 monitor Tube secured with: ??adhesive tape. Dentition unchanged? ??Yes Difficult Airway? ??No. Procedure Start Time: 09/13/2021 10:14 AM. Staff Section ? Anesthesia Provider: Corrina Keyes APRN-NURSING FACULTY, Performed the procedure Kj Herrmann DO GENERAL ANESTHESIA O RDERABLES documented in this encounter Visit Diagnoses Not on filedocumented in this encounter Administered Medications Inactive Administered Medications - up to 3 most recent administrations Medication Order MAR Action Action Date Dose Rate Site ceFAZolin (Ancef) 3,000 mg in 115 mL IVPB 3,000 mg (3 g), at 230 mL/hr, Intravenous, ONCE, 1 dose, On Sat09/13/21 at 0745, Administer 30 minutes prior to surgical incision. May repeat dose in 3 hours if surgical incision is not yet closed. Refrigerate, Indication for anti-infective therapy: Surgical prophylaxis, Pre-op $ Given 09/13/2021 10:20 AM REPORT WRITER 3 g dexAMETHasone (Decadron) injection Intravenous, PRN, Starting on Sat09/13/21 at 1025, Until Sat09/13/21 at 1205, Anesthesia Intra-op $ Given 09/13/2021 10:25 AM REPORT WRITER 4 mg ePHEDrine injection Intravenous, PRN, Starting on Sat09/13/21 at 1036, Until Sat09/13/21 at 1205, Anesthesia Intra-op $ Given 09/13/2021 11:33 AM REPORT WRITER 5 mg $ Given 09/13/2021 11:11 AM REPORT WRITER 5 mg $ Given 09/13/2021 10:40 AM REPORT WRITER 5 mg etomidate (Amidate) injection Intravenous, PRN, Starting on Sat09/13/21 at 1011, Until Sat09/13/21 at 1205, Anesthesia Intra-op $ Given 09/13/2021 10:11 AM REPORT WRITER 20 mg fentaNYL (PF) (Sublimaze) injection Intravenous, PRN, Starting on Sat09/13/21 at 1010, Until Sat09/13/21 at 1205, Anesthesia Intra-op $ Given 09/13/2021 11:54 AM REPORT WRITER 50 mcg $ Given 09/13/2021 11:19 AM REPORT WRITER 50 mcg $ Given 09/13/2021 10:10 AM REPORT WRITER 100 mcg lactated ringers infusion at 20 mL/hr, Intravenous, PRE-OP CONTINUOUS, Starting on Sat09/13/21 at 0745, Until Sat09/13/21 at 1401, Pre-op Restarted 09/13/2021 11:54 AM REPORT WRITER $ New Bag/Syringe 09/13/2021 7:50 AM REPORT WRITER 20 mL/ hr lidocaine PF (Xylocaine MPF) 1 % injection Intravenous, PRN, Starting on Sat09/13/21 at 1011, Until Sat09/13/21 at 1205, Anesthesia Intra-op $ Given 09/13/2021 10:11 AM REPORT WRITER 100 mg midazolam (Versed) injection Intravenous, PRN, Starting on Sat09/13/21 at 1005, Until Sat09/13/21 at 1205, Anesthesia Intra-op $ Given 09/13/2021 10:05 AM REPORT WRITER 2 mg ondansetron (Zofran) injection Intravenous, PRN, Starting on Sat09/13/21 at 1129, Until Sat09/13/21 at 1205, Anesthesia Intra-op $ Given 09/13/2021 11:29 AM REPORT WRITER 4 mg phenylephrine 100 mcg/mL injection Intravenous, PRN, Starting on Sat09/13/21 at 1026, Until Sat09/13/21 at 1205, Anesthesia Intra-op $ Given 09/13/2021 11:41 AM REPORT WRITER 100 mcg $ Given 09/13/2021 11:38 AM REPORT WRITER 100 mcg $ Given 09/13/2021 11:31 AM REPORT WRITER 100 mcg propofol (Diprivan) injection Intravenous, PRN, Starting on Sat09/13/21 at 1011, Until Sat09/13/21 at 1205, Anesthesia Intra-op $ Given 09/13/2021 10:13 AM REPORT WRITER 50 mg $ Given 09/13/2021 10:11 AM REPORT WRITER 50 mg rocuronium (Zemuron) injection Intravenous, PRN, Starting on Sat09/13/21 at 1012, Until Sat09/13/21 at 1205, Anesthesia Intra-op $ Given 09/13/2021 11:20 AM REPORT WRITER 10 mg $ Given 09/13/2021 10:50 AM REPORT WRITER 20 mg $ Given 09/13/2021 10:12 AM REPORT WRITER 50 mg sugammadex (Bridion) injection Intravenous, PRN, Starting on Sat09/13/21 at 1147, Until Sat09/13/21 at 1205, Anesthesia Intra-op $ Given 09/13/2021 11:47 AM REPORT WRITER 400 mg tranexamic acid (Cyklokapron) injection Intravenous, PRN, Starting on Sat09/13/21 at 1030, Until Sat09/13/21 at 1205, Anesthesia Intra-op $ Given 09/13/2021 10:30 AM REPORT WRITER 1,000 mg vancomycin (Vancocin) 1,500 mg in 500 mL NaCl IVPB 1,500 mg, at 333.33 mL/hr, Intravenous, PRE-OP ONCE, 1 dose, On Sat09/13/21 at 0745, Infuse over 90 minutes, initiated within 2 hours prior to surgical incision., Indication for anti-infective therapy: Surgical prophylaxis, Pre-op $ Given 09/13/2021 10:25 AM REPORT WRITER 1,500 mg documented in this encounter Care Teams Hospital Technician Relationship Specialty Start Date End Date Gianluca Price MD [address] [place] [phone] PCP - General Internal Medicine 08/29/21 documented as of this encounter
--- OUTSIDE RECORDS SUMMARY | 2024-10-05 02:44 | XMS_ITS | Referral Summary ---
Author Organization [facility] [employer] Address [address] [place] [address] Care Team Providers Care Supercalender Operator Helper Name Role Phone Gianluca Price MD Primary Care Provider [phone] Source Comments [facility] [employer],non-[facility] Affiliates and Associated Physician Practices is amultiple site organization consisting of ambulatory clinics and hospital sitesin [place], [place], [place] and [place]. This disclosure is being madepursuant to the Care Everywhere program and may not contain all information available regarding this patient. Last updated 18.[facility] [employer] Allergies Active Allergy Reactions Criticality Noted Date Comments Rosuvastatin Myalgias 12/22/2019 Medications * Be aware that medications may not be up to date on this document. Alwaysverify current medications with the patient. Medication Sig Dispensed Refills Start Date End Date Status allopurinol (ZYLOPRIM) 300 MG tabletIndications :Primary Gout Take 300 mg by mouth once daily Reasons: Primary Gout Active quinapril (ACCUPRIL) 40 MG tabletIndications :Hypertension Take 40 mg by mouth once daily Reasons: High Blood Pressure Disorder Active hydroCHLOROthiazi de (HYDRODIURIL) 25 MG tabletIndications :Hypertension Take 25 mg by mouth once daily Reasons: High Blood Pressure Disorder Active atorvastatin (LIPITOR) 40 MG tabletIndications :Hyperlipidemia Take 40 mg by mouth once daily Reasons: High Amount of Fats in the Blood Active clopidogrel (PLAVIX) 75 MG tabletIndications :Acute Coronary Syndrome Take 75 mg by mouth once daily Reasons: Acute Coronary Syndrome Active carvedilol (COREG) 6.25 MG tabletIndications :Hypertension Take 6.25 mg by mouth 2 times daily with morning and evening meal Reasons: High Blood Pressure Disorder Active furosemide (LASIX) 20 MG tabletIndications :Hypertension Take 20 mg by mouth 2 times daily Reasons: High Blood Pressure Disorder Active potassium chloride ER (KLOR-CON M) 20 MEQ tabletIndications :Hypokalemia Take 20 mEq by mouth once daily Reasons: Low Amount of Potassium in the Blood Active amLODIPine (NORVASC) 5 MG tabletIndications :Hypertension Take 5 mg by mouth once daily Reasons: High Blood Pressure Disorder Active apixaban (ELIQUIS) 5 MG tabletIndications :Cerebrovascular Accident Take 5 mg by mouth 2 times daily Reasons: Cerebrovascular Accident or Stroke Active HYDROcodone-aceta minophen (NORCO) 7.5-325 MG tablet Take 1 (one) tablet by mouth every 4 hours as needed for Pain 40 tablet 09/15/2021 Active Active Problems Problem Noted Date Diagnosed Date Primary osteoarthritis of right hip 09/13/2021 Primary osteoarthritis of left hip 12/22/2019 Social History Tobacco Use Types Packs/Day Years [...] on file Sexual Orientation Not on file Last Filed Vital Signs Vital Sign Reading Time Taken Comments Blood Pressure 149/93 09/16/2021 7:19 AM [employer] Pulse 89 09/16/2021 7:19 AM [employer] Temperature 36.3 ??C (97.3 ??F) 09/16/2021 7:19 AM CS T Respiratory Rate 17 09/16/2021 7:19 AM [employer] Oxygen Saturation 99% 09/16/2021 7:19 AM [employer] Inhaled Oxygen Concentration - - Weight 159.6 kg (351 lb 12.8 oz) 09/13/2021 7:45 AM [employer] Height 195.6 cm (6' 5 ) 09/13/2021 7:45 AM [employer] Body Mass Index 41.72 09/13/2021 7:45 AM [employer] Functional Status Functional Status Response Date of [...] person have difficulty concentrating/remembering/making decisions? No 09/13/2021 Plan of Treatment Not on file Medical Devices Implanted Type Area Top Distribution Executive Device Identifier Shelf Expiration Date Model / Serial / Lot Screw 6.5mm 35mm Dome Hip Actb Canc Implanted:Qty: 1 on 12/22/2019 by Maryjane Segura MD at [facility] Left: Hip [employer] 09/14/2026 [id number] / / [id number] Shell Actb 58mm Hip Lmt Hl Rnglc+ Implanted:Qty: 1 on 12/22/2019 by Maryjane Segura MD at [facility] Left: Hip [employer] 08/08/2029 [id number] / / [id number] Acetabular Liner E1 Antioxidant Infused 36mm Head Size Liner Size 25 Implanted:Qty: 1 on 12/22/2019 by Maryjane Segura MD at [facility] Left: Hip [employer] 09/12/2023 [id number] / / [id number] Standard Femoral Stemsize 12 X 140mm Implanted:Qty: 1 on 12/22/2019 by Maryjane Segura MD at [facility] Left: Hip [employer] 07/31/2029 [id number] / / [id number] Head Fem 36mm Hip Blx D Optn G7 Implanted:Qty: 1 on 12/22/2019 by Maryjane Segura MD at [facility] Left: Hip [employer] 08/28/2028 [id number] / / [id number] Slv Centering G7 +3mm Ofst Tpr Hip Ti Ty Implanted:Qty: 1 on 12/22/2019 by Maryjane Segura MD at [facility] Left: Hip [employer] 09/23/2028 [id number] / / [id number] Head Fem 36mm Hip Blx D Optn G7 Implanted:Qty: 1 on 09/13/2021 by Maryjane Segura MD at [facility] Right: Hip [employer] 01/10/2031 [id number] / / [id number] Slv Centering G7 Std Ofst Tpr Hip Ti Ty Implanted:Qty: 1 on 09/13/2021 by Maryjane Segura MD at [facility] Right: Hip [employer] 03/16/2031 [id number] / / [id number] Stem Fem 11mm 135mm Hip 135d Std Ofst Implanted:Qty: 1 on 09/13/2021 by Maryjane Segura MD at [facility] Right: Hip [employer] 03/10/2031 [id number] / / [id number] Self Tapping Bone Screw 6.5 X35mm Implanted:Qty: 1 on 09/13/2021 by Maryjane Segura MD at [facility] Right: Hip 06/20/2031 / / [id number] High Wall Loaner Implanted:Qty: 1 on 09/13/2021 by Maryjane Segura MD at [facility] Right: Hip 05/20/2026 [id number] / / [id number] Shell Actb 54mm Hip Lmt Hl Clr Cd Pps G7 Implanted:Qty: 1 on 09/13/2021 by Maryjane Segura MD at [facility] Right: Hip [employer] 05/19/2031 [id number] / / [id number] Advance Directives * Full Code (Latest Code Status on File) Date Activated Date Inactivated Comments 09/13/2021 2:02 PM 09/16/2021 1:57 PM * Full Code Date Activated Date Inactivated Comments 12/22/2019 3:46 PM 12/25/2019 4:57 PM Care Teams Supercalender Operator Helper Relationship Specialty Start Date End Date Gianluca Price MD [address] [place] [phone] PCP - General Internal Medicine 08/29/21
--- OUTSIDE RECORDS SUMMARY | 2024-10-05 02:44 | XMS_ITS | Patient Health Summary ---
Author Organization [facility] Address [address] [place] [address] Care Team Providers Care Backfiller Name Role Phone Gianluca Price MD Primary Care Provider [phone] [facility],non-owned Affiliates and Associated Physician Practices is amultiple site organization consisting of ambulatory clinics and hospital sitesin [place], [place], [place] and [place]. This disclosure is being madepursuant to the Care Everywhere program and may not contain all information available regarding this patient. Last updated 18.[facility] Allergies * Rosuvastatin(Myalgias) Medications * Be aware that medications may not be up to date on this document. Alwaysverify current medications with the patient. * allopurinol (ZYLOPRIM) 300 MG tablet Take 300 mg by mouth once daily Reasons: Primary Gout * quinapril (ACCUPRIL) 40 MG tablet Take 40 mg by mouth once daily Reasons: High Blood Pressure Disorder * hydroCHLOROthiazide (HYDRODIURIL) 25 MG tablet Take 25 mg by mouth once daily Reasons: High Blood Pressure Disorder * atorvastatin (LIPITOR) 40 MG tablet Take 40 mg by mouth once daily Reasons: High Amount of Fats in the Blood * clopidogrel (PLAVIX) 75 MG tablet Take 75 mg by mouth once daily Reasons: Acute Coronary Syndrome * carvedilol (COREG) 6.25 MG tablet Take 6.25 mg by mouth 2 times daily with morning and evening meal Reasons: High Blood Pressure Disorder * furosemide (LASIX) 20 MG tablet Take 20 mg by mouth 2 times daily Reasons: High Blood Pressure Disorder * potassium chloride ER (KLOR-CON M) 20 MEQ tablet Take 20 mEq by mouth once daily Reasons: Low Amount of Potassium in the Blood * amLODIPine (NORVASC) 5 MG tablet Take 5 mg by mouth once daily Reasons: High Blood Pressure Disorder * apixaban (ELIQUIS) 5 MG tablet Take 5 mg by mouth 2 times daily Reasons: Cerebrovascular Accident or Stroke * HYDROcodone-acetaminophen (NORCO) 7.5-325 MG tablet(Started 09/15/2021) Take 1 (one) tablet by mouth every 4 hours as needed for Pain Active Problems Problem Noted Date Diagnosed Date [...] Comments Blood Pressure 149/93 09/16/2021 7:19 AM IRRIGATION ENGINEER Pulse 89 09/16/2021 7:19 AM IRRIGATION ENGINEER Temperature 36.3 ??C (97.3 ??F) 09/16/2021 7:19 AM CS T Respiratory Rate 17 09/16/2021 7:19 AM IRRIGATION ENGINEER Oxygen Saturation 99% 09/16/2021 7:19 AM IRRIGATION ENGINEER Inhaled Oxygen Concentration - - Weight 159.6 kg (351 lb 12.8 oz) 09/13/2021 7:45 AM IRRIGATION ENGINEER Height 195.6 cm (6' 5 ) 09/13/2021 7:45 AM IRRIGATION ENGINEER Body Mass Index 41.72 09/13/2021 7:45 AM IRRIGATION ENGINEER Medical Devices Implanted Type Area Commercial Shrimping Captain Device Identifier Shelf Expiration Date Model / Serial / Lot Screw 6.5mm 35mm Dome Hip Actb Canc Implanted:Qty: 1 on 12/22/2019 by Maryjane Segura MD at [facility] Left: Hip [employer] 09/14/2026 [id number] / / [id number] Shell Actb 58mm Hip Lmt Hl Rnglc+ Implanted:Qty: 1 on 12/22/2019 by Maryjane Segura MD at [facility] Left: Hip [employer] 08/08/2029 [id number] / / [id number] Acetabular Liner E1 Antioxidant Infused 36mm Head Size Liner Size 25 Implanted:Qty: 1 on 12/22/2019 by Maryjane Segura MD at [facility] Left: Hip [employer] 09/12/2023 [id number] / / [id number] Standard Femoral Stemsize 12 X 140mm Implanted:Qty: 1 on 12/22/2019 by Maryjane Segura MD at [facility] Left: Hip [employer] 07/31/2029 [id number] / / [id number] Head Fem 36mm Hip Blx D Optn G7 Implanted:Qty: 1 on 12/22/2019 by Maryjane Segura MD at [facility] Left: Hip [employer] 08/28/2028 [id number] / / [id number] Slv Centering G7 +3mm Ofst Tpr Hip Ti Ty Implanted:Qty: 1 on 12/22/2019 by Maryjane Segura MD at [facility] Left: Hip [employer] 09/23/2028 [id number] / / [id number] Head Fem 36mm Hip Blx D Optn G7 Implanted:Qty: 1 on 09/13/2021 by Maryjane Segura MD at [facility] Right: Hip [employer] 01/10/2031 [id number] / / [id number] Slv Centering G7 Std Ofst Tpr Hip Ti Ty Implanted:Qty: 1 on 09/13/2021 by Maryjane Segura MD at [facility] Right: Hip [employer] 03/16/2031 [id number] / / [id number] Stem Fem 11mm 135mm Hip 135d Std Ofst Implanted:Qty: 1 on 09/13/2021 by Maryjane Segura MD at [facility] Right: Hip [employer] 03/10/2031 [id number] / / [id number] Self Tapping Bone Screw 6.5 X35mm Implanted:Qty: 1 on 09/13/2021 by Maryjane Segura MD at [facility] Right: Hip 06/20/2031 / / [id number] High Wall Loaner Implanted:Qty: 1 on 09/13/2021 by Maryjane Segura MD at [facility] Right: Hip 05/20/2026 [id number] / / [id number] Shell Actb 54mm Hip Lmt Hl Clr Cd Pps G7 Implanted:Qty: 1 on 09/13/2021 by Maryjane Segura MD at [facility] Right: Hip [employer] 05/19/2031 [id number] / / [id number] Procedures * CARDIAC STRESS TEST ORDER(Performed 09/18/2021) * IMAGING/RADIOLOGY/XRAY RESULTS ORDER(Performed 09/18/2021) * HGB HCT PANEL(Performed 09/15/2021) Performed for Primary osteoarthritis of right hip * HGB HCT PANEL(Performed 09/14/2021) Performed for Primary osteoarthritis of right hip * HOME CPAP/BIPAP FOR HOSP USE: NOCTURNAL 02(Performed 09/14/2021) * ENDOTRACHEAL TUBE NOTE(Performed 09/13/2021) * OK TOTAL HIP REPLACEMENT(Performed 09/13/2021) * HOME CPAP/BIPAP FOR HOSP USE: NOCTURNAL 02(Performed 09/13/2021) * COMPREHENSIVE METABOLIC PANEL(Performed 08/29/2021) Performed for Preop examination * CARDIAC RHYTHM STRIP ORDER(Performed 12/29/2019) * IMAGING/RADIOLOGY/XRAY RESULTS ORDER(Performed 12/29/2019) * B-TYPE NATRIURETIC PEPTIDE(Performed 12/24/2019) * HGB HCT PANEL(Performed 12/24/2019) Performed for Primary osteoarthritis of left hip * EKG 12-LEAD(Performed 12/23/2019) Performed for Coronary artery disease involving [place] coronary artery of [place] heart without angina pectoris * HGB HCT PANEL(Performed 12/23/2019) Performed for Primary osteoarthritis of left hip * EKG 12-LEAD(Performed 12/23/2019) Performed for Coronary artery disease involving [place] coronary artery of [place] heart without angina pectoris * CULTURE WOUND+GRAM STAIN(Performed 12/22/2019) Performed for Diagnosis unknown * CULTURE ANAEROBE(Performed 12/22/2019) Performed for Diagnosis unknown * ENDOTRACHEAL TUBE NOTE(Performed 12/22/2019) * OK TOTAL HIP REPLACEMENT(Performed 12/22/2019) * MAGNESIUM BLOOD(Performed 12/22/2019) Performed for Preop examination * BASIC METABOLIC PANEL (CALCIUM TOTAL)(Performed 12/22/2019) Performed for Preop examination * EKG 12-LEAD(Performed 10/22/2019) Performed for Preop examination * CBC W AUTO DIFFERENTIAL(Performed 10/22/2019) Performed for Preop examination * COMPREHENSIVE METABOLIC PANEL(Performed 10/22/2019) Performed for Preop examination * CULTURE MSSA/MRSA(Performed 10/22/2019) Performed for Preop examination Results * CARDIAC STRESS TEST ORDER (09/18/2021 9:47 PM IRRIGATION ENGINEER) Narrative 09/18/2021 9:47 PM IRRIGATION ENGINEER Ordered by an unspecified provider. Scanned Document CARDIAC SERVICES ORD ERABLES * IMAGING RADIOLOGY XRAY RESULTS ORDER (09/18/2021 8:34 PM IRRIGATION ENGINEER) Only the most recent of2 resultswithin the time period is included. Anatomical Region Laterality Modality Other Narrative 09/18/2021 8:34 PM IRRIGATION ENGINEER Ordered by an unspecified provider. Scanned Document IMAGING * (ABNORMAL) HGB HCT PANEL (09/15/2021 3:53 AM IRRIGATION ENGINEER) Only the most recent of4 resultswithin the time period is included. Hemoglobin 9.5(L) 12.0 - 17.6 gm/dL 09/15/2021 4:04 AM IRRIGATION ENGINEER [facility] Hematocrit 30.7(L) 35.2 - 51.7 % 09/15/2021 4:04 AM IRRIGATION ENGINEER [facility] Blood BLOOD SPECIMEN / Unknown Venipuncture / Unknown 09/15/2021 3:53 AM IRRIGATION ENGINEER 09/15/2021 3:58 AM IRRIGATION ENGINEER Maryjane Segura MD LAB - HEMATOLOGY ORD ERABLES [facility] [address] [place] [address] * ETT LINE PERFORMABLE (09/13/2021 10:37 AM IRRIGATION ENGINEER) Narrative Corrina Keyes APRN-CRNA - 09/13/2021 10:37 AM IRRIGATION ENGINEER Corrina Keyes APRN-CRNA ? 09/13/2021 10:38 AM Endotracheal Tube Placement: ? Patient Location: OR. Intubation Event Date/Time: ??09/13/2021 10:14 AM Procedure: intubation (11385). Procedure Section: ?? Sedation: under general anesthesia. [...] Staff Section ? Anesthesia Provider: Corrina Keyes APRN-CRNA, Performed the procedure Kj Herrmann DO GENERAL ANESTHESIA O RDERABLES * (ABNORMAL) COMPREHENSIVE METABOLIC PANEL (08/29/2021 8:30 AM IRRIGATION ENGINEER) Only the most recent of2 resultswithin the time period is included. Glucose 104 70 - 105 mg/dL 08/29/2021 9:16 AM IRRIGATION ENGINEER [facility] Sodium 136 136 - 145 mmol/L 08/29/2021 9:16 AM IRRIGATION ENGINEER [facility] Potassium 3.4(L) 3.5 - 5.1 mmol/L 08/29/2021 9:16 AM [facility] Chloride 103 98 - 107 mmol/L 08/29/2021 9:16 AM [facility] CO2 23 23 - 31 mmol/L 08/29/2021 9:16 AM [facility] Calcium 9.9 8.4 - 10.4 mg/dL 08/29/2021 9:16 AM [facility] Anion Gap 10 8 - 18 mmol/L 08/29/2021 9:16 AM [facility] BUN 12 8.4 - 25.7 mg/dL 08/29/2021 9:16 AM [facility] Creatinine 0.84 0.72 - 1.25 mg/dL 08/29/2021 9:16 AM [facility] Alkaline Phosphatase 89 40 - 150 U/L 08/29/2021 9:16 AM [facility] ALT 16 0 - 61 U/L 08/29/2021 9:16 AM [facility] AST 16 5 - 34 U/L 08/29/2021 9:16 AM [facility] Protein Total 7.4 6.4 - 8.3 gm/dL 08/29/2021 9:16 AM [facility] Albumin 4.0 3.2 - 4.6 gm/dL 08/29/2021 9:16 AM [facility] Bilirubin Total 0.6 0.2 - 1.2 mg/dL 08/29/2021 9:16 AM [facility] eGFR by MDRD >60 >60 mL/min/1.7 3m2 08/29/2021 9:16 AM [facility] eGFR by MDRD >60 >60 mL/min/1.7 3m2 08/29/2021 9:16 AM [facility] Blood BLOOD SPECIMEN / Unknown Venipuncture / Unknown 08/29/2021 8:30 AM IRRIGATION ENGINEER 08/29/2021 8:52 AM [facility] Coreen Tripp AOC OPERATIONS INTELLIGENCE OFFICER[employer] TRUCK DRIVER LAB - CHEM ISTRY ORDERABLES [facility] [address] [place] [address] * CARDIAC RHYTHM STRIP ORDER (12/29/2019 3:04 PM CDT) Narrative 12/29/2019 3:04 PM CDT Ordered by an unspecified provider. Scanned Document CARDIAC SERVICES ORD ERABLES * (ABNORMAL) B-TYPE NATRIURETIC PEPTIDE (12/24/2019 5:40 AM CDT) BNP 129(H) <=100 pg/mL 12/24/2019 6:33 AM CDT [facility] Blood BLOOD SPECIMEN / Unknown Venipuncture / Unknown 12/24/2019 5:40 AM CDT 12/24/2019 5:44 AM CDT Mansoor Lafleur MD LAB - CHEMISTRY ORDE RABAUDRA Performing Organization Address City/[facility] Co de Phone Number [facility] [address] [place] [address] * EKG 12-LEAD (12/23/2019 12:49 PM CDT) Only the most recent of3 resultswithin the time period is included. Ventricular Rate 118 BPM [facility] Atrial Rate 125 BPM [facility] QRS Duration ms 98 ms [facility] Q-T Interval ms 376 ms [facility] QTC Calculation (Bezet) 527 ms [facility] Calculated R [place] 0 degrees [facility] Calculated T [place] 2 degrees [facility] Interpretation EKG Atrial fibrillation with rapid ventricular response with premature ventricular or aberrantly conducted complexes Prolonged QT Abnormal ECG Confirmed by ALLIE SUN NAN ([id number]) on 12/31/2019 9:38:07 AM [facility] 12/23/2019 12:4 9 PM CDT 12/31/2019 9:38 AM CDT Mansoor Lafleur MD ECG ORDERABLES Performing Organization Address City/[facility]/ZIP Co de Phone Number [facility] * CULTURE WOUND+GRAM STAIN (12/22/2019 1:00 PM CDT) Pathologist [facility] Culture No growth MARCELLO 12/25/2019 6:48 AM CDT [facility] Gram Stain Heavy Red blood cells 12/25/2019 6:48 AM CDT [facility] Gram Stain No organisms seen 12/25/2019 6:48 AM CDT [facility] Microbiology ENTIRE HIP REGION / Unknown 12/22/2019 1:00 PM CDT 12/22/2019 1:53 PM CDT Narrative [facility] - 12/25/2019 6:48 AM CDT Surgical Description: Swab Left Hip Maryjane Segura MD LAB - MICROBIOLOGY O AYAKA Performing Organization Address [facility] de Phone Number [facility] [address] [place] [address], [facility] [phone] * CULTURE ANAEROBE (12/22/2019 1:00 PM CDT) Culture No anaerobic organisms isolated MARCELLO 2019 7:08 AM CDT [facility] Microbiology E[place]IRE [place]IP REGION / Unknown 12/22/2019 1:00 PM CDT 12/22/2019 1:53 PM CDT Narrative [facility] - 2019 7:08 AM CDT Surgical Description: Swab Left Hip Maryjane Segura MD LAB - MICROBIOLOGY O AYAKA Performing Organization Address [facility] Phone Number [facility] [address] [place] [address], [facility] [phone] * ETT LINE PERFORMABLE (12/22/2019 12:35 PM CDT) Narrative Pasquale Coronado APRN-TOWERMAN - 12/22/2019 12:35 PM CDT Pasquale Coronado APRN-TOWERMAN ? 12/22/2019 12:35 PM Endotracheal Tube Placement: ? Patient Location: OR. Procedure: intubation (37094). Procedure Section: ?? Sedation: under general anesthesia. Indications for Airway Management: ??anesthesia Procedure pretreatments used? ??Nursing documentation on the MAR ? Procedure Pretreatments (manual): ??100% O2 Induction: standard IV Patient Position: ??sniffing Mask Ventilation: easy with oral airway. Blade Type: Claudio Blade Size: 4 Laryngoscopy View: grade 1 (full cords) Intubation Adjuncts: stylet Tube: endotracheal tube Placement: oral Tube type: cuff - inflated Tube Size (MM): 8 Depth of Insertion (CM): 22 Measured From: teeth Cuff volume (mL): ??8 Cuff Inflated With: air Number of Attempts: 1. Placement Verified By: direct visualization, bilateral breath sounds and CO2 monitor Tube secured with: ??adhesive tape. Difficult Airway? ??No. Staff Section ?? Anesthesia Provider: Pasquale Coronado, AOC OPERATIONS INTELLIGENCE OFFICER-TOWERMAN, Performed the procedure Fredo Will MD GENERAL ANESTHESIA O RDERABLES * (ABNORMAL) BASIC METABOLIC PANEL (CALCIUM TOTAL) (12/22/2019 10:46 AM CDT) Pathologist [facility] Glucose 105 70 - 105 mg/dL 12/22/2019 11:15 AM CDT [facility] Sodium 138 136 - 145 mmol/L 12/22/2019 11:15 AM CDT [facility] Potassium 3.3(L) 3.5 - 5.1 mmol/L 12/22/2019 11:15 AM CDT [facility] Chloride 104 98 - 107 mmol/L 12/22/2019 11:15 AM CDT [facility] CO2 21(L) 23 - 31 mmol/L 12/22/2019 11:15 AM CDT [facility] Calcium 10.2 8.4 - 10.4 mg/dL 12/22/2019 11:15 AM CDT [facility] Anion Gap 13 8 - 16 mmol/L 12/22/2019 11:15 AM CDT [facility] BUN 18 8.4 - 25.7 mg/dL 12/22/2019 11:15 AM CDT [facility] Creatinine 0.77 0.72 - 1.25 mg/dL 12/22/2019 11:15 AM CDT [facility] eGFR by MDRD >60 >60 mL/min/1.7 3m2 12/22/2019 11:15 AM CDT [facility] eGFR by MDRD >60 >60 mL/min/1.7 3m2 12/22/2019 11:15 AM CDT [facility] Blood BLOOD SPECIMEN / Unknown Venipuncture / Unknown 12/22/2019 10:46 AM CDT 12/22/2019 10:54 AM CDT Vicenta Morejon LAB - CHEMISTRY MILLY WEBER Performing Organization Address [facility] Co de Phone Number [facility] [address] [place] [address] * MAGNESIUM BLOOD (12/22/2019 10:46 AM CDT) Magnesium 1.7 1.6 - 2.6 mg/dL 12/22/2019 11:15 AM CDT [facility] Blood BLOOD SPECIMEN / Unknown Venipuncture / Unknown 12/22/2019 10:46 AM CDT 12/22/2019 10:54 AM CDT Vicenta Morejon LAB - CHEMISTRY M[place]Y WEBER Performing Organization Address [facility] Co de Phone Number [facility] [address] [place] [phone] * CULTURE MSSA/MRSA (10/22/2019 10:34 AM IRRIGATION ENGINEER) Pathologist [facility] Culture Negative for Staphylococcus aureus (MRSA/MSSA) 10/24/2019 8:12 AM IRRIGATION ENGINEER [facility] Microbiology SPECIMEN FROM NASAL FOSSAE / Unknown Collection / Unknown 10/22/2019 10:34 AM IRRIGATION ENGINEER 10/22/2019 10:42 AM IRRIGATION ENGINEER Coreen Tripp AOC [employer]PER[employer] INTELLIGENCE OFFICER[employer] TRUCK DRIVER LAB - MICR OBIOLOGY ORDERABLES Performing Organization Address [facility] Co de Phone Number [facility] [address] [place] [phone] * (ABNORMAL) CBC W AUTO DIFFERENTIAL (10/22/2019 10:34 AM IRRIGATION ENGINEER) WBC 9.4 4.4 - 10.7 x10E9/L 10/22/2019 10:47 AM IRRIGATION ENGINEER [facility] WBC Corrected 10/22/2019 10:47 AM IRRIGATION ENGINEER [facility] RBC 4.73 3.80 - 5.40 x10E12/L 10/22/2019 10:47 AM IRRIGATION ENGINEER [facility] Hemoglobin 14.5 12.0 - 17.6 gm/dL 10/22/2019 10:47 AM IRRIGATION ENGINEER [facility] Hematocrit 44.0 35.2 - 51.7 % 10/22/2019 10:47 AM [facility] MCV 93.0 80.7 - 98.3 fl 10/22/2019 10:47 AM [facility] MCH 30.7 26.7 - 34.0 pg 10/22/2019 10:47 AM [facility] MCHC 33.0 30.8 - 35.9 gm/dL 10/22/2019 10:47 AM [facility] Platelet Count 237 153 - 416 x10E9/L 10/22/2019 10:47 AM [facility] RDW-CV 13.4 12.1 - 14.9 % 10/22/2019 10:47 AM [facility] MPV 11.1 9.4 - 12.9 fl 10/22/2019 10:47 AM [facility] Neutrophils % 65.6 44.0 - 73.0 % 10/22/2019 10:47 AM [facility] Lymphocytes % 20.9 20.0 - 43.0 % 10/22/2019 10:47 AM [facility] Monocytes % 10.8 5.0 - 13.0 % 10/22/2019 10:47 AM [facility] Eosinophils % 1.0 0.0 - 6.0 % 10/22/2019 10:47 AM [facility] Basophils % 0.7 0.0 - 2.0 % 10/22/2019 10:47 AM [facility] Immature Granulocytes 1.0 0 - 1 % 10/22/2019 10:47 AM [facility] Neutrophil Absolute 6.16 2.01 - 7.14 x10E9/L 10/22/2019 10:47 AM [facility] Lymphocytes Absolute 1.96 1.07 - 3.94 x10E9/L 10/22/2019 10:47 AM [facility] Monocytes Absolute 1.01 0.26 - 1.07 x10E9/L 10/22/2019 10:47 AM [facility] Eosinophils Absolute 0.09 0 - 0.47 x10E9/L 10/22/2019 10:47 AM [facility] Basophils Absolute 0.07 0 - 0.08 x10E9/L 10/22/2019 10:47 AM [facility] Immature Granulocytes Absolute 0.09(H) 0.00 - 0.06 x10E9/L 10/22/2019 10:47 AM IRRIGATION ENGINEER [facility] nRBC Auto 0 /100 WBC 10/22/2019 10:47 AM IRRIGATION ENGINEER [facility] Blood BLOOD SPECIMEN / Unknown Venipuncture / Unknown 10/22/2019 10:34 AM IRRIGATION ENGINEER 10/22/2019 10:43 AM IRRIGATION ENGINEER Coreen Tripp AOC [employer]PER[employer] INTELLIGENCE OFFICER[employer] TRUCK DRIVER LAB - [place] TOLOGY ORDERABLES Performing Organization Address City/State/[facility] Co de Phone Number [facility] [address] [place] [phone] Care Teams Backfiller Relationship Specialty Start Date End Date Gianluca Price MD [address] [place] [phone] PCP - General Internal Medicine 08/29/21
--- OUTSIDE RECORDS SUMMARY | 2024-10-05 02:44 | XMS_ITS | Encounter Summary ---
Author Organization [facility] Address [address] [place] [address] Care Team Providers Care Legislative Director Name Role Phone Gianluca Price MD Primary Care Provider [phone] Reason for Visit * Auth/Cert Specialty Diagnoses / Procedures Referred By Antonietta livingston Referred To Contact Diagnoses na Procedures ARTHROPLASTY TOTAL HIP Referral ID Status Reason Start Date Expiration Date Visits Re quested Visits Authorized [id number] 1 1 Encounter Details Date Type Department Care Team (Late st Contact Info) Description 09/13/2021 9:14 AM CREDIT UNION FIELD EXAMINER - 09/13/2021 11:07 AM CREDIT UNION FIELD EXAMINER Surgery [facility] - Perioperative Surgery [address] [place] [address] [place] [id number] [place] [id number] RIGHT TOTAL HIP ARTHROPLASTY Surgery Details Date/Time Status Location OR Service Patient Class Case Class Case Type Trauma Case? 09/13/2021 9:14 AM Posted [facility] MAIN OR OR 15 Orthopedics Surgery Day Care Over Night Elective > 5 days Panel 1 Procedure LRB Anes Op Region Wound Class Comments RIGHT TOTAL HIP ARTHROPLASTY Right General Hip C lean Surgeon Surgeon Role Service Panel Maryjane Chowdhury MD Primary Orthopedics 1 Special Needs BIOMET (BERTO) NOTIFIED-NB documented in this encounter Social History Tobacco [...] on file documented as of this encounter Last Filed Vital Signs Vital Sign Reading Time Taken Comments Blood Pressure 121/87 09/13/2021 7:54 AM CREDIT UNION FIELD EXAMINER Pulse 88 09/13/2021 7:54 AM CREDIT UNION FIELD EXAMINER Temperature 36.6 ??C (97.9 ??F) 09/13/2021 7:54 AM CS T Respiratory Rate 17 09/13/2021 7:54 AM CREDIT UNION FIELD EXAMINER Oxygen Saturation 97% 09/13/2021 7:54 AM CREDIT UNION FIELD EXAMINER Inhaled Oxygen Concentration - - Weight 159.6 kg (351 lb 12.8 oz) 09/13/2021 7:45 AM CREDIT UNION FIELD EXAMINER Height 195.6 cm (6' 5 ) 09/13/2021 7:45 AM CREDIT UNION FIELD EXAMINER Body Mass Index 41.72 09/13/2021 7:45 AM CREDIT UNION FIELD EXAMINER documented in this encounter Functional Status Functional Status Response [...] No 09/13/2021 documented as of this encounter Discharge Summaries * Maryjane Chowdhury MD - 09/16/2021 12:48 PM CST Dc summary Dc home Regular Diet Full wb Pain meds- norco Low Dose aspiri Dx djd Procedure thr Right complcaiotn None Condition improved oiffice Fu 3 Weeks fmayylack IT UNION FIELD EXAMINER documented in this encounter Medications at Time of Discharge Medication Sig Dispensed Refills Start Date End Date allopurinol (ZYLOPRIM) 300 MG tabletIndications:Pr imary Gout Take 300 mg by mouth once daily Reasons: Primary Gout amLODIPine (NORVASC) 5 MG tabletIndications:Hy pertension Take 5 mg by mouth once daily Reasons: High Blood Pressure Disorder apixaban (ELIQUIS) 5 MG tabletIndications:Ce rebrovascular Accident Take 5 mg by mouth 2 times daily Reasons: Cerebrovascular Accident or Stroke atorvastatin (LIPITOR) 40 MG tabletIndications:Hy perlipidemia Take 40 mg by mouth once daily Reasons: High Amount of Fats in the Blood carvedilol (COREG) 6.25 MG tabletIndications:Hy pertension Take 6.25 mg by mouth 2 times daily with morning and evening meal Reasons: High Blood Pressure Disorder clopidogrel (PLAVIX) 75 MG tabletIndications:Ac antione Coronary Syndrome Take 75 mg by mouth once daily Reasons: Acute Coronary Syndrome furosemide (LASIX) 20 MG tabletIndications:Hy pertension Take 20 mg by mouth 2 times daily Reasons: High Blood Pressure Disorder hydroCHLOROthiazide (HYDRODIURIL) 25 MG tabletIndications:Hy pertension Take 25 mg by mouth once daily Reasons: High Blood Pressure Disorder HYDROcodone-acetamin ophen (NORCO) 7.5-325 MG tablet Take 1 (one) tablet by mouth every 4 hours as needed for Pain 40 tablet 09/15/2021 potassium chloride ER (KLOR-CON M) 20 MEQ tabletIndications:Hy pokalemia Take 20 mEq by mouth once daily Reasons: Low Amount of Potassium in the Blood quinapril (ACCUPRIL) 40 MG tabletIndications:Hy pertension Take 40 mg by mouth once daily Reasons: High Blood Pressure Disorder documented as of this encounter Progress Notes * Eileen Pool - 09/16/2021 11:27 AM CST Problem: Pain/Discomfort Goal: Patient exhibits reduced pain/discomfort as evidenced by pain scores 09/16/2021 1126 by Eileen Pool Outcome: Adequate for Discharge 09/16/2021 1041 by Eileen Pool Outcome: Progressing Note: Lian will use pharmacologic and non-pharmacological means, such as ice and rest, to help reduce pain Goal: Patient uses pharmacological and non-pharmacological pain management strategies. Outcome: Adequate for Discharge Goal: Patient verbalizes acceptable level of pain relief and ability to engage in desired activity. Outcome: Adequate for Discharge Problem: Procedural Site (Incision) Care Goal: Incision remains intact with edges well approximated 09/16/2021 1126 by Eileen Pool Outcome: Adequate for Discharge 09/16/2021 1041 by Eileen Pool Outcome: Progressing Note: Lian's dressing will remain clean, dry, and intact Goal: Incision is free of infection. Outcome: Adequate for Discharge Problem: Hip Precautions Goal: Hip precautions are followed Outcome: Adequate for Discharge Problem: Fall Risk Goal: Fall risk and fall related injury risk are minimized (interventions related to the fall risk can be found in the flowsheet documentation) 09/16/2021 1126 by Eileen Pool Outcome: Adequate for Discharge 09/16/2021 1041 by Eileen Pool Outcome: Progressing Note: Lian will use his call light and ask for assistance when trying to ambulate out of bed IT UNION FIELD EXAMINER * Mary Lou Chaidez, OT - 09/16/2021 11:11 AM CST Occupational Therapy Treatment Summary Chart reviewed for diagnosis and medical systems review. Nursing consented for OT. . Explained purpose of OT and patient consented to participate in therapy. PPE worn by staff: gloves;mask - surgical Precautions: Falls, RLE WBAT w/ posterior hip precautions Patient participated in education/review of precautions/restrictions this session. SUBJECTIVE: Pt awake, agreeable to participate. Patient Arthroplasty Liaison (PAL): Psychosocial: Patient Behaviors: Calm;Cooperative Patient's goal for the day: not stated OBJECTIVE: Cognition: Orientation Level: Oriented X4 Cognition: Follows Commands-Consistent;Attention/concentration-normal for age;Processing-Appropriate Pain Assessment: Pain Rating Score #: 5 Pain Location : Hip Pain Orientation: Right Functional Mobility: Bed Mobility: Supine to Sit: Minimal Assistance Transfers: Sit to Stand: Stand By Assist Stand to Sit: Stand By Assist ADL Tasks: Feeding: Complete [place] Oral Facial Hygiene: Minimal Assistance Bathing: Moderate Assistance Upper Body Dressing: Set-up Lower Body Dressing: Moderate Assistance Toileting: Minimal Assistance Activity Tolerance/Vital Signs: Activity Tolerance: Requires rest breaks ASSESSMENT: Pt tolerated OT well. Pt able to verbalize hip precautions in supine. Pt sat EOB min A to move RLE towards EOB. Pt required mod A to don sweatpants, when standing to pull clothing up, pants fell down needing assist from OT to pull pants back up due to posterior hip precaution, total A to [facility] socks and don personal socks and tennis shoes due to no AE present. Pt requesting tostay sitting EOB, declined need for grooming stating he already completed it earlier. Call light and phone in reach. All lines, monitors, IV's, equipment in place and intact pre and post visit. RN, Demarcus, notified of patient's performance/location end of session. Educated patient/family in role of OT, POC, ADLs and functional mobility, safety/fall precautions Please refer to the Filed Flowsheet OT Treatment for further details. Refer to care plan for goals. RECOMMENDATIONS/PLAN: Continue OT OT Discharge Recommendations: Home;Daily Assist;Home Health OT Recommended Transportation Method: Private Car If this is the last Occupational Therapy visit, this serves as the discharge summary. CARLOS Barreto/L X [id number] IT UNION FIELD EXAMINER * Eileen Pool - 09/16/2021 10:44 AM CST Patient is A&O X 4 VSS Dressing is clean, dry, and intact [place] given for pain CGA with walker when ambulating Voiding adequate amounts of urine via the urinal Discharged home at 1248, with medication and ice IT UNION FIELD EXAMINER * Eileen Pool - 09/16/2021 10:44 AM CST Problem: Pain/Discomfort Goal: Patient exhibits reduced pain/discomfort as evidenced by pain scores Outcome: Progressing Note: Lian will use pharmacologic and non-pharmacological means, such as ice and rest, to help reduce pain Problem: Procedural Site (Incision) Care Goal: Incision remains intact with edges well approximated Outcome: Progressing Note: Lian's dressing will remain clean, dry, and intact Problem: Fall Risk Goal: Fall risk and fall related injury risk are minimized (interventions related to the fall risk can be found in the flowsheet documentation) Outcome: Progressing Note: Lian will use his call light and ask for assistance when trying to ambulate out of bed IT UNION FIELD EXAMINER * Zenon Ramirez DO - 09/16/2021 10:30 AM CST Hospitalist Progress Note 09/16/2021 Clinical Course Admitted with a right elliot Drainage stopped No new complaints ROS No cp, sob, n/v Exam Vitals: 09/15/21 1720 09/15/21 2041 09/16/21 0406 09/16/21 0719 BP: 112/55 113/75 146/88 149/93 Pulse: 93 93 89 Resp: 20 20 17 Temp: 97.4 ??F (36.3 ??C) 97.3 ??F (36.3 ??C) SpO2: 96% 94% 99% Weight: Height: General appearance: alert, cooperative, no distress, oriented to person, place, and time Lungs: breath sounds normal and symmetric; no rales or wheezes Heart: regular rhythm, normal S1 and S2, without murmurs, gallops or rubs Abdomen: soft without mass, non-tender, with normal bowel sounds Extremities: no clubbing, cyanosis or edema Skin: dressing intact MEDICATIONS FOR CURRENT ENCOUNTER: SCHEDULED MEDICATIONS: 0.9% NaCl injection 3 mL, Intracatheter, q8h allopurinol (Zyloprim) tablet 300 mg, Oral, QDAY amLODIPine (Norvasc) tablet 5 mg, Oral, QDAY aspirin tablet 325 mg, Oral, BID WC atorvastatin (Lipitor) tablet 40 mg, Oral, AT BEDTIME carvedilol (Coreg) tablet 6.25 mg, Oral, BID WC celecoxib (CeleBREX) capsule 400 mg, Oral, QDAY furosemide (Lasix) tablet 20 mg, Oral, BID hydroCHLOROthiazide (Hydrodiuril) tablet 25 mg, Oral, QDAY lisinopril (Prinivil; Zestril) tablet 20 mg, Oral, QDAY polyethylene glycol 3350 (Miralax) packet 17 g, Oral, QDAY potassium chloride ER (Klor-Con M) tablet 20 mEq, Oral, QDAY scopolamine patch placement confirmation, Transdermal, BID ?? senna-docusate (Senokot-S) tablet 1 tablet, Oral, BID CONTINUOUS MEDICATIONS: ?? lactated ringers infusion, Intravenous, Continuous PRN MEDICATIONS: Or Or Or Or acetaminophen (Tylenol) tablet 650 mg, Oral, q4h PRN bisacodyl (Dulcolax) suppository 10 mg, Rectal, QDAY PRN bisacodyl EC (Dulcolax) tablet 5 mg, Oral, QDAY PRN diphenhydrAMINE (Benadryl) capsule 25 mg, Oral, q8h PRN diphenhydrAMINE (Benadryl) capsule 50 mg, Oral, q8h PRN famotidine (Pepcid) tablet 20 mg, Oral, BID PRN HYDROcodone-acetaminophen ([place]) 10-325 MG tablet 1 tablet, Oral, q4h PRN HYDROcodone-acetaminophen ([place]) 5-325 MG tablet 1 tablet, Oral, q4h PRN magnesium hydroxide (Milk Of Magnesia) suspension 30 mL, Oral, PRN ondansetron (Zofran) injection 4 mg, Intravenous, q6h PRN scopolamine (Transderm-Scop) 1 patch, Transdermal, q72h PRN sodium phosphate rectal (Fleet) enema 133 mL, Rectal, PRN ?? zolpidem (Ambien) tablet 5 mg, Oral, AT BEDTIME PRN Data My review of labs, imaging, notes and other tests is significant for : Recent Labs Component Name 08/29/21 0830 12/22/19 1046 10/22/19 1034 SODIUM 136 138 139 POTASSIUM 3.4* 3.3* 3.7 CHLORIDE 103 104 104 CO2 23 21* 24 BUN 12 18 15 CREATININE 0.84 0.77 0.79 GLUCOSE 104 105 93 CALCIUM 9.9 10.2 9.8 Recent Labs Component Name 09/15/21 0353 09/14/21 0200 12/24/19 0540 12/23/19 0208 10/22/19 1034 WBC - - - - 9.4 HGB 9.5* 10.7* 11.3* - 14.5 HCT 30.7* 34.5* 34.1* - 44.0 PLTCOUNT - - - - 237 - = values in this interval not displayed. No data found. Assessment and Plan CAD -asa -hold plavix ?? afib -hold eliquis ?? Hypertension - continue home regimen and adjust as needed. -hold for low bp ?? sandra -cont cpap ?? S/p right total hip arthroplasty - physical therapy - pain management -Dvt prophylaxis per orthopedic surgery recommendations. - Encourage incentive spirometry. Zenon Ramirez DO IT UNION FIELD EXAMINER * Laila Wong, CHIEF TELEPHONE OPERATOR - 09/16/2021 9:55 AM CST Physical Therapy Treatment Summary Chart review completed. Nursing consented for PT. Explained purpose of PT and patient consented to participate in therapy. Pt medicated prior to PT.Pt ed in WBAT, safe gt and transfers with ww, HEP, ice use, post hip prec. PPE worn by staff: mask - surgical PPE worn by patient: mask - surgical SUBJECTIVE: I have a leg culinary art teacher at home. Dr. Chowdhury just said not to turn my leg in. My back is my biggest problem . Patient's Goal for the Day: Go home. Pain Assessment: Pt with his usual back pn. OBJECTIVE: Orientation Level: Oriented X4 Precautions: Fall, post hip prec. Bed Mobility: Supine to Sit: Minimal Assistance (with HOB up and rail.) Transfers: Sit to Stand: Stand By Assist;Requires Verbal Cues for Safety;Requires Verbal Cues for Technique from very tall bed Stand to Sit: Stand By Assist;Requires Verbal Cues for Safety;Requires Verbal Cues for Technique tovery tall bed Mobility: Distance Ambulated: 80 FEET (-100 ft.) Ambulation: Assistive Device: Gait Belt;Walker-Bariatric;Walker-2 Wheeled Ambulation: Level of Assistance: Stand By Assist;Requires Verbal Cues for Safety;Requires Verbal Cues for Technique (to mod I, too far from ww, flexed posture (back issues).) Ambulation: Gait Deviations: Base of Support - Increased;Doris - Decreased;Heel Strike - Decreased;Increased Trunk Flexion;Push Off - Decreased;Step Length - Decreased Weight Bearing Status-RLE: Weight Bearing as Tolerated Balance: Standing - Static: Good;With Both Upper Extremity's Support Standing - Dynamic: Good;With Both Upper Extremity's Support Exercise: 10 reps. Activity Tolerance: Activity Tolerance: Tolerates ADLs without rest breaks ASSESSMENT: Pt shantanu rx well. He demo varied gt pattern and transfer techniques due to long standing back issues. He has a leg culinary art teacher and other AE at home that he is encouraged to use to assist in his recovery. He verbalizes 3/3 hip prec. Cues for hand placement sit/stand. Pt states he has a tall bedat home, and a recliner. His bed is adjustable (required min A to sit up from hospital bed with HOBelevated and use of rail). When amb he is steady but demo wide CARYL, flexed posture with pt a littledistanced from ww (back issues, difficulty straightening up). Pt feels ready for home. He states hehas a roomy car (PT did not practice car transfer yesterday due to this, nor did CHIEF TELEPHONE OPERATOR assess today as transfer car is low and small. Pt is a tall, big corrina. He declines practice). He also states there are no TREE his home so stair training was not assessed today per pt request. Pt shantanu well overall andfeels ready for home. Goals reviewed. Pt sitting EOB after RX with tray table, phone and call lightin reach to await nurse to check his bandage before getting his clean clothes on to go home. Call light and phone in reach. All lines, monitors, IV's, equipment in place and intact pre and post visit. RNDemarcus, notified of patient's performance/location end of session. She was in room at end of session. PT Tech, not, present to assist throughout the session. Pt was educated in PT plan of care, fall precautions, and benefits of OOB activity/PT. Please refer to the Filed Flowsheet PT Treatment for further details. RECOMMENDATIONS/PLAN: Anticipate discharge home today. Pt will benefit from HH PT to maximize independent, functional mobility post ELLIOT surgery. PT Discharge Recommendations: Home;Daily Assist;24 Hour Supervision;Home Health PT Recommended Transportation Method: Private Car EDIN [place], 8656 IT UNION FIELD EXAMINER * Joana Finnegan RN - 09/16/2021 12:02 AM CST Problem: Pain/Discomfort Goal: Patient exhibits reduced pain/discomfort as evidenced by pain scores Outcome: Progressing Goal: Patient uses pharmacological and non-pharmacological pain management strategies. Outcome: Progressing Goal: Patient verbalizes acceptable level of pain relief and ability to engage in desired activity. Outcome: Progressing Ms. Andrade will have tolerable pain during this shift. Problem: Procedural Site (Incision) Care Goal: Incision remains intact with edges well approximated Outcome: Progressing Goal: Incision is free of infection. Outcome: Progressing Mr. Andrade will have no signs of infection during this shift,. Problem: Hip Precautions Goal: Hip precautions are followed Outcome: Progressing Mr. Andrade will follow hip precautions during this shift. Problem: Fall Risk Goal: Fall risk and fall related injury risk are minimized (interventions related to the fall risk can be found in the flowsheet documentation) Outcome: Progressing Mr. Andrade will have bed alarm on during this shift. IT UNION FIELD EXAMINER * Fabiana You RN - 09/15/2021 4:37 PM CST Alert and orientated X4. Vital signs stable. Pain controlled with norco, ice and rest Abd, 4x4 and medipore changed as dressing was saturated with serosanguinous drainage, will continueto monitor Voiding without difficulty Up with PT/OT with no problems IT UNION FIELD EXAMINER * Nu Hernandez RN - 09/15/2021 3:22 PM CST Case Management Progress Note Anticipated level of care at discharge: Home Health Care Discharge Plan: Home with home health care Pt admitted s/p right knee arthroplasty. Plan is for pt to discharge home with home health care when medically ready. Pt's will provide transportation. Basic Needs Assessment (BNA) Score: 7 Anticipated Discharge Date: Anticipated Discharge Date: 09/15/21 Transportation at Discharge: Family Transportation to MD:Family Equipment at Home: Equipment At Home: Cane-Straight;Walker-2 Wheeled;Scooter- Power;Electromechanical Assembly Technician;Shoe Horn-Long Handled;Sock Aid Additional DME needed: Hunger Screening: Within the past 12 months the food we bought just didn't last and we didn't have money to get more.: Never true Within the past 12 months we worried whether our food would run out before we got money to buy more: Never true Food Bank Resources Provided: Not offered to the patient Medication affordability concerns: No Auth Number (if required) NH: DME: Medications: Transportation: Name: Nu Hernandez RN Phone: [phone] IT UNION FIELD EXAMINER * Jaleesa Hodges PT - 09/15/2021 2:36 PM CST Physical Therapy Treatment Summary Patient was seen BID this date for physical therapy. Pt consented to treatment. PPE worn by staff: gloves, mask PPE worn by patient: mask Subjective: Pt reporting most of his pain is coming from his back rather than his hip. Agreeable toPT. States he is going home tomorrow AM. Pain: 5/10 in the R hip and spine. Objective: Transfers: Supine to/from sit with minimal assistance and use of gait belt as leg culinary art teacher. Sit to/from stand with standby assistance from elevated bed, minimal assistance from low w/c. Ambulation: Patient ambulated 20 feet with bariatric ww and standby assistance Steps/Curb: Instructed patient to ascend/descend 4 steps with rails with miin assistance. Instructed patient to ascend/descend curb with bariatric ww and min assistance. Patient educated in safe gait and transfer technique, use of ice therapy, posterior hip precautions, step and curb technique and importance of increased activity. Patient remained in reach of call light. Applied ice pack post-treatment. Assessment/Plan: Pt tolerates session well, educated on step and curb technique this date with goodunderstanding. Pt continues to fatigue quickly. Requires assist to stand from lower w/c and for step/curb. No drainage observed from dressing. Pt will benefit from one more session tomorrow morning and possible family training with spouse to ensure safety at home. Jaleesa PT, DPT [phone] 09/15/2021 IT UNION FIELD EXAMINER * Maryjane Chowdhury MD - 09/15/2021 2:06 PM CST Ortho Pod 2 Doing Well Dc Home Tomorrow fmayrama IT UNION FIELD EXAMINER * Jaleesa Hodges, PT - 09/15/2021 11:49 AM CST Physical Therapy Treatment Summary Chart review completed. Nursing consented for PT. Explained purpose of PT and patient consented to participate in therapy. PPE worn by staff: gloves;mask - surgical PPE worn by patient: gown - patient, clean;mask - surgical SUBJECTIVE: Pt c/o nausea upon arrival, RN informed. Pt stating they just changed his dressing, butevery time he sits up in the chair it gets worse. Pt reports his back pain is probably worse than his hip pain at this point. Patient Arthroplasty Liaison (PAL): spouse Patient's Goal for the Day: walk Pain Assessment: Pain Rating Score #: 5 Pain Location : Hip Pain Orientation: Right OBJECTIVE: Orientation Level: Oriented X4 Precautions: falls, WBAT RLE, posterior hip Bed Mobility: Supine to Sit: Activity Does Not Occur (sitting EOB pre and post session) Sit to Supine: Activity Does Not Occur Transfers: Sit to Stand: Stand By Assist Stand to Sit: Stand By Assist Mobility: Distance Ambulated: 100 FEET Ambulation: Assistive Device: Gait Belt;Walker-2 Wheeled Ambulation: Level of Assistance: Minimum Assistance Ambulation: Gait Deviations: Antalgic;Doris - Decreased;Increased Trunk Flexion;Increased Weight Bearing through Upper Extremity;Step Length - Decreased Weight Bearing Status-RLE: Weight Bearing as Tolerated Balance: Sitting - Static: Good Standing - Static: Fair + Activity Tolerance: Activity Tolerance: Requires rest breaks;Observed shortness of breath after activity ASSESSMENT: Pt tolerates session fair. Activity limited this date by pt c/o nausea. RN informed. Ptambulates with antalgic gait and increased trunk flexion, pt reports he does this at baseline d/t spinal pain. Pt fatigues quickly and ambulates quickly back to room for seated rest break. Pt left sitting EOB at end of session. Ice therapy applied after treatment. Call light and phone in reach. All lines, monitors, IV's, equipment in place and intact pre and post visit. RN notified of patient's performance/location end of session. Pt educated in PT plan of care, fall precautions, and benefits of OOB activity. Please refer to the Filed Flowsheet PT Treatment for further details. RECOMMENDATIONS/PLAN: PT Discharge Recommendations: Home;Daily Assist;Home Health PT Recommended Transportation Method: Private Car Jaleesa PT, DPT [phone] IT UNION FIELD EXAMINER * Zenon Ramirez, DO - 09/15/2021 11:34 AM CST Hospitalist Progress Note 09/15/2021 Clinical Course Admitted with a right elliot Some draining from incision. Walks stooped over ROS No cp, sob, n/v Exam Vitals: 09/14/21 2020 09/15/21 0035 09/15/21 0448 09/15/21 1040 BP: 142/85 112/70 Pulse: 87 88 91 108 Resp: 16 Temp: 98.5 ??F (36.9 ??C) SpO2: 94% 93% 93% 95% Weight: Height: General appearance: alert, cooperative, no distress, oriented to person, place, and time Lungs: breath sounds normal and symmetric; no rales or wheezes Heart: regular rhythm, normal S1 and S2, without murmurs, gallops or rubs Abdomen: soft without mass, non-tender, with normal bowel sounds Extremities: no clubbing, cyanosis or edema Skin: dressing intact MEDICATIONS FOR CURRENT ENCOUNTER: SCHEDULED MEDICATIONS: 0.9% NaCl injection 3 mL, Intracatheter, q8h allopurinol (Zyloprim) tablet 300 mg, Oral, QDAY amLODIPine (Norvasc) tablet 5 mg, Oral, QDAY aspirin tablet 325 mg, Oral, BID WC atorvastatin (Lipitor) tablet 40 mg, Oral, AT BEDTIME carvedilol (Coreg) tablet 6.25 mg, Oral, BID WC celecoxib (CeleBREX) capsule 400 mg, Oral, QDAY furosemide (Lasix) tablet 20 mg, Oral, BID hydroCHLOROthiazide (Hydrodiuril) tablet 25 mg, Oral, QDAY lisinopril (Prinivil; Zestril) tablet 20 mg, Oral, QDAY polyethylene glycol 3350 (Miralax) packet 17 g, Oral, QDAY potassium chloride ER (Klor-Con M) tablet 20 mEq, Oral, QDAY scopolamine patch placement confirmation, Transdermal, BID senna-docusate (Senokot-S) tablet 1 tablet, Oral, BID ?? [] ondansetron (Zofran) injection 4 mg, Intravenous, q6h CONTINUOUS MEDICATIONS: ?? lactated ringers infusion, Intravenous, Continuous PRN MEDICATIONS: Or Or Or Or acetaminophen (Tylenol) tablet 650 mg, Oral, q4h PRN bisacodyl (Dulcolax) suppository 10 mg, Rectal, QDAY PRN bisacodyl EC (Dulcolax) tablet 5 mg, Oral, QDAY PRN diphenhydrAMINE (Benadryl) capsule 25 mg, Oral, q8h PRN diphenhydrAMINE (Benadryl) capsule 50 mg, Oral, q8h PRN famotidine (Pepcid) tablet 20 mg, Oral, BID PRN HYDROcodone-acetaminophen ([place]) 10-325 MG tablet 1 tablet, Oral, q4h PRN HYDROcodone-acetaminophen ([place]) 5-325 MG tablet 1 tablet, Oral, q4h PRN magnesium hydroxide (Milk Of Magnesia) suspension 30 mL, Oral, PRN ondansetron (Zofran) injection 4 mg, Intravenous, q6h PRN scopolamine (Transderm-Scop) 1 patch, Transdermal, q72h PRN sodium phosphate rectal (Fleet) enema 133 mL, Rectal, PRN ?? zolpidem (Ambien) tablet 5 mg, Oral, AT BEDTIME PRN Data My review of labs, imaging, notes and other tests is significant for : Recent Labs Component Name 08/29/21 0830 12/22/19 1046 10/22/19 1034 SODIUM 136 138 139 POTASSIUM 3.4* 3.3* 3.7 CHLORIDE 103 104 104 CO2 23 21* 24 BUN 12 18 15 CREATININE 0.84 0.77 0.79 GLUCOSE 104 105 93 CALCIUM 9.9 10.2 9.8 Recent Labs Component Name 09/15/21 0353 09/14/21 0200 12/24/19 0540 12/23/19 0208 10/22/19 1034 WBC - - - - 9.4 HGB 9.5* 10.7* 11.3* - 14.5 HCT 30.7* 34.5* 34.1* - 44.0 PLTCOUNT - - - - 237 - = values in this interval not displayed. No data found. Assessment and Plan CAD -asa -hold plavix ?? afib -hold eliquis ?? Hypertension - continue home regimen and adjust as needed. -hold for low bp ?? sandra -cont cpap ?? S/p right total hip arthroplasty - physical therapy - pain management -Dvt prophylaxis per orthopedic surgery recommendations. - Encourage incentive spirometry. Zenon Ramirez DO IT UNION FIELD EXAMINER * Chen Flores, OT - 09/15/2021 10:32 AM CST Occupational Therapy Treatment Summary Chart reviewed for diagnosis and medical systems review. Nursing consented for OT. . Explained purpose of OT and patient consented to participate in therapy. PPE worn by staff: gloves;mask - surgical Precautions: RLE WBAT, posterior hip precautions Patient participated in education/review of precautions/restrictions this session. SUBJECTIVE: Patient agreeable to OT session, states I am doing fine. I am going home tomorrow. Patient Arthroplasty Liaison (PAL): spouse (not present) Psychosocial: Patient Behaviors: Calm;Cooperative Patient's goal for the day: Walk to bathroom to brush my teeth OBJECTIVE: Cognition: Orientation Level: Oriented X4 Cognition: Follows Commands-Consistent Attention Span: Appears intact Pain Assessment: Pain Rating Score #: 5 Pain Location : Hip Pain Orientation: Right Functional Mobility: Bed Mobility: Supine to Sit: Minimal Assistance (assist for RLE management) Sit to Supine: Activity Does Not Occur Transfers: using WW Sit to Stand: Stand By Assist;Requires Verbal Cues for Safety;Requires Verbal Cues for Technique Stand to Sit: Stand By Assist;Requires Verbal Cues for Safety;Requires Verbal Cues for Technique Toilet Transfers: Declined Balance: Static standing using WW: close SPV Pt ambulates from bedside <> bathroom using WW with SBA for safety, requires intermittent v/cfor safety ADL Tasks: (per observation and clinical judgment) Feeding: Complete Meade Oral Facial Hygiene: Set-up;Supervision (standing at sink ) Bathing: Minimal Assistance (using AE) Upper Body Dressing: Set-up Lower Body Dressing: Minimal Assistance (anticipated using AE) Toileting: Set-up;Supervision Activity Tolerance/Vital Signs: Activity Tolerance: Requires rest breaks;Observed shortness of breath after activity SpO2: 95 % Pulse: 108 BP: 112/70 ASSESSMENT: Patient tolerated session fairly well this date. Goal of session to progress safety/independence with ADLs and in room functional mobility to support safe d/c home. Pt able to verbalize 75% of posterior precautions independently, with primarily discussion on use during LE dressing d/t having all AE items at home including sock aide, pneumatic tool repairer, and long handled shoe horn. Pt requires SBA-close SPV in standing for safety and cues for technique for AD management. Patient will benefit from acute OT services to support return maximum baseline independence. Call light and phone in reach. Pt sitting EOB with all needs met at end of session. All lines, monitors, IV's, equipment in place and intact pre and post visit. RN, notified of patient's performance/location end of session. Please refer to the Filed Flowsheet OT Treatment for further details. Refer to care plan for goals. RECOMMENDATIONS/PLAN: Will continue to follow OT Discharge Recommendations: Home;Daily Assist;Home Health OT If this is the last Occupational Therapy visit, this serves as the discharge summary. Chen OTR/L [phone] IT UNION FIELD EXAMINER * Fabiana You RN - 09/15/2021 10:09 AM CST Problem: Pain/Discomfort Goal: Patient exhibits reduced pain/discomfort as evidenced by pain scores Outcome: Progressing Note: Pain is controlled by [place] 10, ice, and rest Goal: Patient uses pharmacological and non-pharmacological pain management strategies. Outcome: Progressing Goal: Patient verbalizes acceptable level of pain relief and ability to engage in desired activity. Outcome: Progressing Problem: Procedural Site (Incision) Care Goal: Incision remains intact with edges well approximated Outcome: Progressing Note: 4x4, abd, and medipore tape to right hip extremity remains intact with scant serosanguinous drainage, will change Goal: Incision is free of infection. Outcome: Progressing Note: No signs or symptoms of infection noted Problem: Hip Precautions Goal: Hip precautions are followed Outcome: Progressing Note: All proper hip precautions put in place Problem: Fall Risk Goal: Fall risk and fall related injury risk are minimized (interventions related to the fall risk can be found in the flowsheet documentation) Outcome: Progressing Note: Pt will work with PT to learn ambulate safely and will remain free from falls IT UNION FIELD EXAMINER * Mari Zavala RN - 09/15/2021 7:30 AM CST Patient was given norco for pain. With dressings to right hip intact.will continue to observe. IT UNION FIELD EXAMINER * Sandra Mcneill, PT - 09/14/2021 2:51 PM CST Physical Therapy Treatment Summary Patient was seen BID this date for physical therapy. Pt consented to treatment. PPE worn by staff:Gloves, surgical mask. PPE worn by patient: Surgical mask. Subjective: I just want to try walking this afternoon and get back to bed . Pain: 7/10 in the right hip. Objective: Transfers: Supine to/from sit with min/mod assist of R LE. Sit to/from stand with min assist x1. . Ambulation: Patient ambulated 65feet with BWW SBA. Cues for posture correction, proper stride. Exercise: Instructed ankle pumps only. Other ex deferred d/t hip drainage. Patient educated in safe transfers, BWW gait, ex modification. Patient remained in reach of call light. Applied ice pack post-treatment. PT tech did not assist with treatment this date. Assessment/Plan: Seated tall bedside chair start of session. Sit-stand min assist. Observed surgical wound dressing with min bloody shadowing. No active drainage. Proceeded with BWW gait as noted above. Demonstrates antalgic step to gait, increased trunk flex, wt bearing thru UE's.Cues for proper technique. Patient returned to bed with min/mod R LE assist in hip prec range. Observed increase in bloody drainage on gown post ambulation. Ju EDDY, notified and will assess. Resting comfortably end of visit. Ice applied. Ex deferred d/t drainage. Patient educated ankle pumps, breathing ex only until drainage reassessed. Verbalized understanding. Continue acute PT. Plan BID with possible Dc Sat per Dr. Chowdhury. Sandra, PT [phone] 09/14/2021 IT UNION FIELD EXAMINER * Aurora Angelo RN - 09/14/2021 1:46 PM CST Case Management Initial Note Anticipated level of care at discharge: Home Health Care Right total hip arthroplasty. 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 He Has increase incisional drainage that is being evaluated overnight and today. He continues with PT treatments. Discharge Plan: Chart review. S/P right knee arthroplasty. Plan is to discharge home with HHPT. Patient lives with his in a single story home with no steps to enter. Patient was ambulatory with a cane and walker prior to admit. His will provide transportation at discharge. He has a 2 Wheeled walker for home use. Agreeable to [facility] at discharge. Will continue to follow for dc needs. 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 No Basic Needs Assessment (BNA) Score: 7 Anticipated Discharge Date: Anticipated Discharge Date: 09/17/21 Transportation at Discharge: Family Transportation to MD:Family Equipment at Home: Equipment At Home: Cane-Straight;Walker-2 Wheeled;Scooter- Power;Electromechanical Assembly Technician;Shoe Horn-Long Handled;Sock Aid Additional DME needed: none Pharmacy benefit: Yes Patient voiced concerns with affordability of medications: no Hunger Screening: Within the past 12 months the food we bought just didn't last and we didn't have money to get more.: Never true Within the past 12 months we worried whether our food would run out before we got money to buy more: Never true [employer] Resources Provided: Not offered to the patient Name: Aurora Angelo RN IT UNION FIELD EXAMINER * Celina Dale RN - 09/14/2021 1:41 PM CST Pt A and O x 4. VSS. Pt tolerating his diet. Up with CGA using walker. Incisional dressing is saturated x 2 and was changed. Pt complaining of incisional pain given [place] and he verbalized relief. Will continue to monitor.Celina Dale RN 09/14/2021 1:45 PM Given report to Jael EDDY. IT UNION FIELD EXAMINER * Charito Sandra, PT - 09/14/2021 1:01 PM CST Physical Therapy Treatment Summary Chart review completed. Nursing consented for PT. (Ju) Explained purpose of PT and patient consented to participate in therapy. PPE worn by staff: gloves;mask - surgical PPE worn by patient: gown - patient, clean SUBJECTIVE: The nurse just changed my dressing due to drainage . (Prior to therapist arrival). Patient Arthroplasty Liaison (PAL): Spouse Patient's Goal for the Day: Consents to working with therapy. Pain Assessment: Pain Rating Score #: 5 Pain Location : Hip Pain Orientation: Right Pain Quality: Aching;Sharp OBJECTIVE: Orientation Level: Oriented X4 Precautions: Total Hip Precautions: Yes (R Post ELLIOT, No abd ex or abd pillow, WBAT) Other Precautions: (Fall) Bed Mobility: Supine to Sit: Minimal Assistance (Of R LE) Sit to Supine: Activity Does Not Occur (Seated bedside chair end of visit) Transfers: Sit to Stand: Minimal Assistance;Requires Verbal Cues for Technique Stand to Sit: Minimal Assistance;Requires Verbal Cues for Technique Mobility: Distance Ambulated: 24 FEET Ambulation: Assistive Device: Gait Belt;Walker-2 Wheeled Chidi Ambulation: Level of Assistance: Minimum Assistance Ambulation: Gait Deviations: Antalgic;Doris - Decreased;Increased Trunk Flexion;Increased Weight Bearing through Upper Extremity;Step Length - Decreased Weight Bearing Status-RLE: Weight Bearing as Tolerated Balance: Sitting - Static: Good;With Both Upper Extremity's Support Standing - Static: Fair +;With Both Upper Extremity's Support Exercise: ELLIOT x 10 reps. No Abd Ex Activity Tolerance: SpO2: 94 % Pulse: 108 BP: 121/90 ASSESSMENT: Patient able to verbalize post hip precautions. Patient performed supine ELLIOT ex x 10 reps. No abd ex. Requires min assist of R LE for bed transfer. Ambulation to restroom SBA BWW. + void.Cues for posture awareness, proper stride. Patient requesting assistance with LE dressing change d/t soilage. As therapist was assisting, observed active bloody drainage distal incision. Notified Ju EDDY who performed assessment, surgical dressing change. Patient resting comfortably tall bedside chair end of session. Call light and phone in reach. All lines, monitors, IV's, equipment in place and intact pre and post visit. SURJIT Dodd notified of patient's performance/location end of session. PT Tech not present to assist throughout the session. Pt educated in PT plan of care, fall precautions, and benefits of OOB activity. Please refer to the Filed Flowsheet PT Treatment for further details. RECOMMENDATIONS/PLAN: Continue acute PT. Plan PM session. Possible DC Sat per Dr. Chowdhury. PT Discharge Recommendations: Home;Daily Assist;Home Health PT Recommended Transportation Method: Private Car JODI Flores [phone] IT UNION FIELD EXAMINER * Zenon Ramirez, DO - 09/14/2021 11:50 AM CST Hospitalist Progress Note 09/14/2021 Clinical Course Admitted with a right elliot ROS No cp, sob, n/v Exam Vitals: 09/13/21 2348 09/14/21 0431 09/14/21 0811 09/14/21 1053 BP: 117/77 122/84 144/88 103/63 Pulse: 87 105 (!) 112 101 Resp: 16 16 18 Temp: 98.1 ??F (36.7 ??C) 97.5 ??F (36.4 ??C) 97.7 ??F (36.5 ??C) 99 ??F (37.2 ??C) SpO2: 92% 94% 94% 96% Weight: Height: General appearance: alert, cooperative, no distress, oriented to person, place, and time Lungs: breath sounds normal and symmetric; no rales or wheezes Heart: regular rhythm, normal S1 and S2, without murmurs, gallops or rubs Abdomen: soft without mass, non-tender, with normal bowel sounds Extremities: no clubbing, cyanosis or edema Skin: dressing intact MEDICATIONS FOR CURRENT ENCOUNTER: ?? SCHEDULED MEDICATIONS: ?? 0.9% NaCl injection 3 mL, Intracatheter, q8h ?? allopurinol (Zyloprim) tablet 300 mg, Oral, QDAY ?? amLODIPine (Norvasc) tablet 5 mg, Oral, QDAY ?? aspirin tablet 325 mg, Oral, BID WC ?? atorvastatin (Lipitor) tablet 40 mg, Oral, AT BEDTIME ?? carvedilol (Coreg) tablet 6.25 mg, Oral, BID WC ?? celecoxib (CeleBREX) capsule 400 mg, Oral, QDAY ?? furosemide (Lasix) tablet 20 mg, Oral, BID ?? hydroCHLOROthiazide (Hydrodiuril) tablet 25 mg, Oral, QDAY ?? lisinopril (Prinivil; Zestril) tablet 20 mg, Oral, QDAY ?? ondansetron (Zofran) injection 4 mg, Intravenous, q6h ?? potassium chloride ER (Klor-Con M) tablet 20 mEq, Oral, QDAY ?? scopolamine patch placement confirmation, Transdermal, BID ?? senna-docusate (Senokot-S) tablet 1 tablet, Oral, BID ?? CONTINUOUS MEDICATIONS: ?? lactated ringers infusion, Intravenous, Continuous ?? PRN MEDICATIONS: ?? Or ?? Or ?? Or ?? Or ?? acetaminophen (Tylenol) tablet 650 mg, Oral, q4h PRN ?? bisacodyl (Dulcolax) suppository 10 mg, Rectal, QDAY PRN ?? bisacodyl EC (Dulcolax) tablet 5 mg, Oral, QDAY PRN ?? diphenhydrAMINE (Benadryl) capsule 25 mg, Oral, q8h PRN ?? diphenhydrAMINE (Benadryl) capsule 50 mg, Oral, q8h PRN ?? famotidine (Pepcid) tablet 20 mg, Oral, BID PRN ?? HYDROcodone-acetaminophen ([place]) 10-325 MG tablet 1 tablet, Oral, q4h PRN ?? HYDROcodone-acetaminophen ([place]) 5-325 MG tablet 1 tablet, Oral, q4h PRN ?? ketorolac (Toradol) injection 15 mg, Intravenous, q6h PRN ?? magnesium hydroxide (Milk Of Magnesia) suspension 30 mL, Oral, PRN ?? ondansetron (Zofran) injection 4 mg, Intravenous, q6h PRN ?? scopolamine (Transderm-Scop) 1 patch, Transdermal, q72h PRN ?? sodium phosphate rectal (Fleet) enema 133 mL, Rectal, PRN ?? zolpidem (Ambien) tablet 5 mg, Oral, AT BEDTIME PRN Data My review of labs, imaging, notes and other tests is significant for : Recent Labs Component Name 08/29/21 0830 12/22/19 1046 10/22/19 1034 SODIUM 136 138 139 POTASSIUM 3.4* 3.3* 3.7 CHLORIDE 103 104 104 CO2 23 21* 24 BUN 12 18 15 CREATININE 0.84 0.77 0.79 GLUCOSE 104 105 93 CALCIUM 9.9 10.2 9.8 Recent Labs Component Name 09/14/21 0200 12/24/19 0540 12/23/19 0208 10/22/19 1034 10/22/19 1034 WBC - - - - 9.4 HGB 10.7* 11.3* 12.5 - 14.5 HCT 34.5* 34.1* 38.3 - 44.0 PLTCOUNT - - - - 237 - = values in this interval not displayed. No data found. Assessment and Plan CAD -asa -hold plavix ?? afib -hold eliquis ?? Hypertension - continue home regimen and adjust as needed. -hold for low bp ?? sandra -cont cpap ?? S/p right total hip arthroplasty - physical therapy - pain management -Dvt prophylaxis per orthopedic surgery recommendations. - Encourage incentive spirometry. Zenon Ramirez DO IT UNION FIELD EXAMINER * Dulce Juarez - 09/14/2021 8:46 AM CST - Lian is alert and orientated x4 - VSS - Pt remained free from falls this shift - Voiding w/o difficulties - Last BM 09/13 - Pain managed with ice and [place] 5mg - Ambulating with CGA - Pressure dressing c/d/i. Did become saturated at shift change per day shift RN after ambulating. Dulce Juarez RN IT UNION FIELD EXAMINER * Chaidez Mary Lou, OT - 09/14/2021 8:45 AM CST Occupational Therapy Initial Evaluation Orders received. Chart reviewed for diagnosis and medical systems review. Nursing consented for OT. Explained purpose of OT and patient consented to participate in therapy. PPE worn by staff: gloves;mask - surgical Precautions: Falls, RLE WBAT w/ posterior hip precautions SUBJECTIVE: Pt awake, supine, agreeable to participate. Pt had h/o L ELLIOT December 2019, said he didn'tuse a shower chair before. Pt used the AE for LB dressing last time, and knows how to use it. Patient Arthroplasty Liaison (PAL): Pt's Apoorva Psychosocial: Patient Behaviors: Calm;Cooperative Pt's goal for therapy: Not stated Occupational Profile/PLOF: Pt indep w/ ADLs and functional mobility w/o AD inside, pt used a scooter for longer distances. Pt reports he has a bad back. Type of Residence: Private Residence Lives with:: Spouse Home Structure: One Story Primary Bedroom: First Floor Primary Bathroom: First Floor Bathroom : Tub/Shower Combo Equipment At Home: Cane-Straight;Walker-2 Wheeled;Scooter-Power;Electromechanical Assembly Technician;Shoe Horn-Long Handled;SockAid (Taller toilet) Mobility: Ambulate-In Home ;With Assistive Device Fallen Within 6 Mos: No Have Help at Home?: Yes, there is help at home now How often is assistance provided?: assist prn Level of Help Sufficient?: Yes Oxygen at Home: No Activity at Home: Driving Vision: No impairment Hearing Exceptions: No impairment PLOF ADL: Prior to Admission Feeding: Complete Meade Prior to Admission Oral Facial Hygiene: Complete Meade Prior to Admission Bathing: Complete Meade Prior to Admission Upper Body Dressing: Complete Meade Prior to Admission Lower Body Dressing: Complete Meade Prior to Admission Toileting: Complete Meade Prior to Admission Bladder: Independent Prior to Admission Bowel: Independent Cognition: Orientation Level: Oriented X4 Cognition: Follows Commands-Consistent;Attention/concentration-normal for age;Processing-Appropriate Pain Assessment: Pain Rating Score #: 5 (pt pre-medicated per RN) Pain Location : Hip Pain Orientation: Right RUE Assessment: AROM - Right Upper Extremity: Within Functional Limits Strength - Right Upper Extremity: Within Functional Limits Disc Jockey Strength: Disc Jockey Strength - Right Upper Extremity: WFL LUE Assessment: AROM - Left Upper Extremity: Within Functional Limits Strength - Left Upper Extremity: Within Functional Limits Disc Jockey Strength: Disc Jockey Strength - Left Upper Extremity: WFL Basic ADL's: Feeding: Complete Meade Oral Facial Hygiene: Minimal Assistance Bathing: Moderate Assistance Upper Body Dressing: Minimal Assistance Lower Body Dressing: Other (Comment) (TBD-no AE present) Toileting: Minimal Assistance Functional Mobility: Bed Mobility: Supine to Sit: Minimal Assistance Transfers: Sit to Stand: Minimal Assistance Stand to Sit: Minimal Assistance Vitals: Activity Tolerance: Requires rest breaks HR elevated to approx 152 after activity, decreases to 90s-110s (RN notified) ASSESSMENT: Pt tolerated OT well. Pt sat EOB min A. Pt ambulated to sink min A w/ bariatric FWW, completed grooming standing at sink min A w/ OT cues for pt to stand upright as tolerated w/ awarenessof limited forward flexion w/ hip precaution. Pt returned to tall hip chair min A w/ FWW. OT issuedpt LH bath sponge. Call light and phone in reach. All lines, monitors, IV's, equipment in place and intact pre and post visit. RNJu, notified of patient's performance/location end of session. Educated patient/family in role of OT, POC, ADLs and functional mobility, safety/fall precautions Problem list: Decreased strength, decreased ROM, decreased balance, impaired functional mobility Functional limitation: Decreased independence with transfers; decreased ability to perform ADLs, decreased safety with functional mobility. Rationale for therapy: Patient will benefit from OT to address the above issues. Patient will be seen for: ADL retraining, functional transfers, balance Refer to Plan of Care for OT goals. Refer to filed flow sheet for further details. RECOMMENDATIONS/PLAN: Continue OT OT Discharge Recommendations: Home;Daily Assist;Home Health OT Recommended Transportation Method: To be Determined If this is the last Occupational Therapy visit, this serves as the discharge summary. CARLOS Barreto/Saira X [phone] IT UNION FIELD EXAMINER * Sandra Mcneill, PT - 09/13/2021 10:33 PM CST Physical Therapy Evaluation R Post ELLIOT 09/13/21, WBAT. PT orders received. Chart reviewed for diagnosis and medical systems review. Nursing consented for PT. Christina Explained purpose of PT and patient consented to participate in therapy. PPE worn by staff: gloves;mask - surgical PPE worn by patient: gown - patient, clean SUBJECTIVE: I can feel the soreness in the hip. What do we need to do? Patient educated purpose of visit. Agreeable. 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 Scooter use for longer distances. Hx of L ELLIOT December 2019 so familiar with program. Patient Arthroplasty Liaison (PAL): Spouse Home Situation: Type of Residence: Private Residence Lives with:: Spouse Steps to Enter: No Home Structure: One Story (no basement) Equipment At Home: Cane-Straight;CPAP;Electromechanical Assembly Technician;Shoe Horn-Long Handled;Sock Aid;Toilet Seat - Raised;Walker-2 Wheeled;Other - Comment (Scooter, leg culinary art teacher) Prior Level of Functioning: Mobility: Ambulate-In Community;Ambulate-In Home ;Independent;With Assistive Device;Driving Fallen Within 6 Mos: No Have Help at Home?: Yes, there is help at home now Activity at Home: Active;Driving Pain Assessment: Pain Rating Score #: 7 Pain Location : Hip Pain Orientation: Right Pain Quality: Aching;Sharp Patient/family stated goal: Consents to working with therapy. OBJECTIVE: Precautions: Total Hip Precautions: Yes (R Post ELLIOT, No abd ex or abd pillow, WBAT) Other Precautions: (Fall) Cognition: Orientation Level: Oriented X4 Level of Consciousness-Adult: Alert ROM and Strength: AROM - Right Lower Extremity: Exceptions AROM - Left Lower Extremity: Within Functional Limits Sensation: Intact light touch LE's Balance: Sitting - Static: Good;With Both Upper Extremity's Support Standing - Static: Fair +;With Both Upper Extremity's Support Bed Mobility: Supine to Sit: Minimal Assistance;Requires Verbal Cues for Technique;Requires Physical Cues for Technique Sit to Supine: Moderate Assistance;Requires Verbal Cues for Technique;Requires Physical Cues for Technique Transfers: Sit to Stand: Minimal Assistance;Moderate Assistance;Requires Verbal Cues for Technique;Requires Physical Cues for Technique Stand to Sit: Minimal Assistance;Moderate Assistance;Requires Verbal Cues for Technique;Requires Physical Cues for Technique Mobility: Distance Ambulated: 20 FEET Ambulation: Assistive Device: Gait Belt;Walker-2 Wheeled Ambulation: Level of Assistance: Minimum Assistance Ambulation: Gait Deviations: Antalgic;Doris - Decreased;Increased Trunk Flexion;Step Length - Decreased Weight Bearing Status-RLE: Weight Bearing as Tolerated Exercise: Educated significance of ankle pumps, proper breathing exercise every hour. Activity Tolerance: SpO2: 94 % Pulse: 108 BP: 121/90 ASSESSMENT: Fair tolerance functional activity. Limited d/t pain requiring min/mod assist mobility activities. Demonstrates antalgic gait, flexed posture. (Hx chronic back pain). Cues for posture awareness, proper stride. Issued and reviewed post hip precautions. Educated safe transfers, proper legpositioning, icing. + void. Patient resting comfortably end of visit. Ice and sequentials applied. Call light and phone in reach with bed alarm activated. All lines, monitors, IV's, equipment in place and intact pre and post visit. SURJIT Vasquez notified of patient's performance/location end of session. PT Tech not present to assist throughout the session. Pt educated in PT plan of care, fall precautions, and benefits of OOB activity. Problem list: decreased strength, decreased balance, decreased endurance, decreased ROM Functional limitations: Decreased independence with ambulation/transfers, decreased safety with functional mobility. Rationale for therapy: Patient will benefit from PT to address the above issues. Please refer to Filed Flowsheet PT Evaluation for further details. Refer to Plan of Care for PT goals. RECOMMENDATIONS/PLAN: Continue acute PT. Plan BID. May need time. PT Discharge Recommendations: 24 Hour Supervision;Home Health PT Recommended Transportation Method: Private Car JODI Flores [phone] IT UNION FIELD EXAMINER * Brigida Soares RN - 09/13/2021 8:02 PM CST Problem: Pain/Discomfort Goal: Patient exhibits reduced pain/discomfort as evidenced by pain scores Outcome: Progressing Note: Pain is controlled by medications, ice, and rest. Goal: Patient uses pharmacological and non-pharmacological pain management strategies. Outcome: Progressing Goal: Patient verbalizes acceptable level of pain relief and ability to engage in desired activity. Outcome: Progressing Problem: Procedural Site (Incision) Care Goal: Incision remains intact with edges well approximated Outcome: Progressing Note: Surgical dressing remains C/D/I. Goal: Incision is free of infection. Outcome: Progressing Note: Dressing C/D/I and no S/S of infection noted. Problem: Hip Precautions Goal: Hip precautions are followed Outcome: Progressing Problem: Fall Risk Goal: Fall risk and fall related injury risk are minimized (interventions related to the fall risk can be found in the flowsheet documentation) Note: Patient uses call light appropriately and has good safety awareness. IT UNION FIELD EXAMINER * Brigida Soares RN - 09/13/2021 7:58 PM CST Pt. Is alert and oriented x 4. SBA with wheeled walker. VSS. Tolerating regular diet. [place] 10 given for pain control. Silver dressing bloody upon admission to floor from PACU and changed, changed again at this time aspatient was sitting up in bed and bled through dressing. Encouraged patient lie down and ice hip atthis time. Ambulated to , voiding adequate amounts of urine. IT UNION FIELD EXAMINER documented in this encounter H&P Notes * Maryjane Chowdhury MD - 09/12/2021 4:39 PM CST [facility] HISTORY AND PHYSICAL PATIENT: LIAN ANDRADE MR#: [id number] ADMIT DATE: CSN: [id number] : 1955 ROOM: PHYSICIAN: MARYJANE CHOWDHURY MD CHIEF COMPLAINT: Right hip pain. HISTORY OF PRESENT ILLNESS: The patient is here for elective right total hip replacement. He has 10 years of progressive right hip pain, is limiting ability to stand, walk, stoop, drive, climb, bend, and with fear of falling. The patient has failed conservative measures including NSAIDs and over 3 months of physical therapy. He is here for elective right total hip replacement. PAST MEDICAL HISTORY: Hip pain. REVIEW OF SYSTEMS: Hip pain. FAMILY HISTORY: DJD. SOCIAL HISTORY: Nonsmoker. PHYSICAL EXAMINATION: GENERAL: The patient is awake, alert, and oriented x3. CHEST: Clear. HEART: Regular rate and rhythm. ABDOMEN: Soft. NEUROVASCULAR: Intact. No mental status changes. Good motion in neck, upper extremities. Painful limited range of motion in the right hip. DIAGNOSTIC DATA: X-rays showed advanced DJD of the right hip. PLAN: Right total hip replacement. The patient understands and wished to proceed. Maryjane Chowdhury MD [facility] #: [id number] IT UNION FIELD EXAMINER documented in this encounter Consult Notes * Nu Bruno - 09/16/2021 12:48 PM CSTAssociated Order(s): IP CONSULT TO HOME HEALTH CARE Received home care orders. Patient is an advanced ortho patient set up with [facility]. Face sheet, HH orders, admitting H&P, & AVS were faxed. Thank you for the referral. Nu Bruno Admissions Associate [facility] IT UNION FIELD EXAMINER * Zenon Ramirez DO - 09/13/2021 4:15 PM CSTAssociated Order(s): IP CONSULT TO HOSPITALIST Initial Hospitalist Consult Note Date of Consult: 09/13/2021 Patient's Primary Care Physician: Gianluca Price MD Physician Requesting Consult: Maryjane Chowdhury MD Reason for Consultation: Evaluation of patient's medical problems, which include hypertension, coronary artery disease and sandra Name: Lian Andrade Age: [age] year old Sex: male Chief Complaint/History of Present Illness This is a 65 year old male admitted to the hosptial to undergo right elliot. The procedure was done under General anesthetic and there was 600 mls of blood loss noted. The patient tolerated the procedure well and is seen on the floor for further evaluation. Patient denies complaints of: Headache , Chest Pain, Cough, Dyspnea, Abdominal Pain, nausea, Vomiting, Diarrhea, Constipation, Dysuria, or dizziness. The patients right Hip is symptomatic for over several years, aggravated with activity. Radiographs show severe DJD of the right Hip. Patient is failing conservative management. Past Medical History: Diagnosis Date ??? Atherosclerosis of coronary artery ??? Atrial fibrillation a fib ??? CHF (congestive heart failure) ??? Essential hypertension ??? Obesity ??? PONV (postoperative nausea and vomiting) ??? Pure hypercholesterolemia ??? Sleep apnea Past Surgical History: Procedure Laterality Date ??? CARDIAC CATHETERIZATION, LEFT 2016 4 stents total ??? HIP ARTHROPLASTY, TOTAL Left 12/22/2019 Left; LEFT HIP ARTHROPLASTY ??? Hip Replacement Right 09/13/2021 ??? Knee Replacement Right 2016 ??? Knee Replacement Left 2017 ??? LUMBAR SPINE FUSION 2013 Medications Prior to Admission Medication Sig Dispense Refill ??? allopurinol (ZYLOPRIM) 300 MG tablet Take 300 mg by mouth once daily Reasons: Primary Gout ??? amLODIPine (NORVASC) 5 MG tablet Take 5 mg by mouth once daily Reasons: High Blood Pressure Disorder ??? apixaban (ELIQUIS) 5 MG tablet Take 5 mg by mouth 2 times daily Reasons: Cerebrovascular Accident or Stroke ??? atorvastatin (LIPITOR) 40 MG tablet Take 40 mg by mouth once daily Reasons: High Amount of Fatsin the Blood ??? carvedilol (COREG) 6.25 MG tablet Take 6.25 mg by mouth 2 times daily with morning and evening meal Reasons: High Blood Pressure Disorder ??? clopidogrel (PLAVIX) 75 MG tablet Take 75 mg by mouth once daily Reasons: Acute Coronary Syndrome ??? furosemide (LASIX) 20 MG tablet Take 20 mg by mouth 2 times daily Reasons: High Blood Pressure Disorder ??? hydroCHLOROthiazide (HYDRODIURIL) 25 MG tablet Take 25 mg by mouth once daily Reasons: High Blood Pressure Disorder ??? potassium chloride ER (KLOR-CON M) 20 MEQ tablet Take 20 mEq by mouth once daily Reasons: Low Amount of Potassium in the Blood ??? quinapril (ACCUPRIL) 40 MG tablet Take 40 mg by mouth once daily Reasons: High Blood Pressure Disorder Allergies Allergen Reactions ??? Rosuvastatin Myalgias Social History Socioeconomic History ??? Marital status: Spouse name: Not on file ??? Number of children: Not on file ??? Years of education: Not on file ??? Highest education level: Not on file Occupational History ??? Not on file Tobacco Use ??? Smoking status: Never Smoker ??? Smokeless tobacco: Never Used Vaping Use ??? Vaping Use: Never used Substance and Sexual Activity ??? Alcohol use: Yes Comment: occas ??? Drug use: Not Currently ??? Sexual activity: Not on file Other Topics Concern ??? Not on file Social History Narrative ??? Not on file Social Determinants of Health Financial Resource Strain: Not on file Food Insecurity: Not on file Transportation Needs: Not on file Physical Activity: Not on file Stress: Not on file Social Connections: Not on file Intimate Partner Violence: Not on file Housing Stability: Not on file No family history on file. Review of Systems Constitutional: No unexplained fever, sweats. Eyes: Vision stable, no discomfort. Ears, nose, mouth, and throat: No mouth dryness, sores, hearing stable , no nasal discharge. Respiratory: No cough, dyspnea, wheezing, pleuritic pain. Cardiovascular: No exertional chest pain, palpitations, edema, claudication. Gastrointestinal: No bleeding, frequent reflux, dysphagia, change in bowels, pain. Genitourinary: No dysuria,frequency, bleeding. Skin: No recent rashes, or pruritus Hematologic/lymphatic: No history of anemia. No abnormal bleeding or bruising. Musculoskeletal: Hip pain Neurological: Stable gait, no numbness, tingling, syncope, dizziness. Behavioral/Psych: No sleep disturbance, memory changes, depression. Endocrine: No fatigue or weight change. Exam Vitals: 09/13/21 1315 09/13/21 1330 09/13/21 1354 09/13/21 1440 BP: 126/87 133/96 117/74 139/81 Pulse: 82 88 73 91 Resp: 18 19 18 Temp: 97.3 ??F (36.3 ??C) 97.3 ??F (36.3 ??C) SpO2: 97% 97% 95% 96% Weight: Height: General appearance: alert, cooperative, no distress Head: Normocephalic, without trauma Eyes: sclera and conjunctiva clear, EOMI and PERRLA, lids normal Throat: no mucous membrane abnormalities Neck: range of motion is intact, no masses, thyroid not enlarged, no adenopathy. No bruit. Lungs: breath sounds normal and symmetric; no rales or wheezes Heart: regular rhythm, normal S1 and S2, without murmurs, gallops or rubs Abdomen: soft without mass, non-tender, with normal bowel sounds Extremities: no clubbing, cyanosis or edema. Right hip bandaged Skin: no rashes or other abnormalities are noted Neurologic: mental status normal; alert and oriented X 3; cranial nerves II - XII are grossly intact Data Recent Labs Component Name 12/24/19 0540 12/23/19 0208 10/22/19 1034 WBC - - 9.4 HGB 11.3* 12.5 14.5 HCT 34.1* 38.3 44.0 PLTCOUNT - - 237 Recent Labs Component Name 08/29/21 0830 SODIUM 136 POTASSIUM 3.4* CHLORIDE 103 CO2 23 BUN 12 CREATININE 0.84 GLUCOSE 104 CALCIUM 9.9 ALBUMIN 4.0 ALKPHOS 89 ALT 16 AST 16 TBIL 0.6 TPROT 7.4 EGFR >60 No results for input(s): TROPONIN in the last 74303 hours. No results for input(s): TSH in the last 31844 hours. Assessment and Plan CAD -asa -hold plavix afib -hold eliquis Hypertension - continue home regimen and adjust as needed. -hold for low bp sandra -cont cpap S/p right total hip arthroplasty - physical therapy - pain management -Dvt prophylaxis per orthopedic surgery recommendations. - Encourage incentive spirometry. Zenon Ramirez DO CC: Maryjane Chowdhury MD , Gianluca Price MD IT UNION FIELD EXAMINER documented in this encounter OR Notes * Operative - Maryjane Chowdhury MD - 09/13/2021 6:38 PM CST [facility] OPERATIVE REPORT PATIENT: : LIAN ANDRADE MR#: [id number] ADMIT DATE: 09/13/2021 CSN: [id number] DATE OF SURGERY: 09/13/2021 : 1955 PHYSICIAN: Maryjane Chowdhury MD ROOM: 0126 SURGEON: Maryjane Chowdhury MD. PREOPERATIVE DIAGNOSIS: Degenerative joint disease of the right hip. POSTOPERATIVE DIAGNOSIS: Degenerative joint disease of the right hip. PROCEDURE PERFORMED: Right total hip replacement. ANESTHESIA: General. INFORMED CONSENT: Yes. TIME-OUT: Yes. ANTIBIOTICS: Yes. COMPLICATIONS: None. TSA: Yes. COMPONENTS: Biomet. ESTIMATED BLOOD LOSS: Minimal. PROCEDURE: The patient was brought to the operating room, placed supine on the operating table and induced with general anesthesia, placed in lateral position, properly positioned and padded. Right hip was prepped and draped in usual sterile fashion. Time-out was performed and a 5-inch longitudinal incision was made in the lateral aspect of the right hip. Dissection was carried down to subcutaneous tissues, fascia split longitudinally. A posterior approach to hip was performed by dividing external rotators and posterior capsule. Hip was dislocated posteriorly. Femoral neck was cut. Femoral head was removed. Acetabulum was exposed, cleared of soft tissue and debris. Reamed to 53 mm, and 100 then 54. A 54 mm cementless acetabular cup was placed with a 35 mm screw and an E-poly Hi-Wall liner. Femoral canal was then exposed, reamed, and broached. An 11 reduced proximal cementless femoral stem was placed with a +3 neck and a 36 mm ceramic head. Hip was reduced. Good fixation, stability, alignment, range of motion stability and range of motion was obtained. Wound was irrigated antibiotic containing solution and IrriSept solution g vancomycin powder was placed wound was closed in sequential layers using #2 Quill for repair of the fascia 2-0 Vicryl to avoid subcutaneous tissues and gio for the skin. Sterile dressing was applied. Sponge and instrument counts were correct. Stable to recovery room no intraoperative complication compartment. Maryjane Huynh. MD [place] [facility] #: [id number] IT UNION FIELD EXAMINER * Brief Op Note - Maryjane Chowdhury MD - 09/13/2021 10:36 AM CST Brief Op Note Procedure: RIGHT TOTAL HIP ARTHROPLASTY Patient Name: Lian Andrade Date of Service: 09/13/2021 Pre-Op Diagnosis: *djd Post-Op Diagnosis: djd Surgeon(s) and Role: * Maryjane Chowdhury MD - Primary Agriculture Research Director(s): Anesthesia Type: general ETT Complications: none Findings: djd EBL: 600 mL Urine Output : IV Fluid Intake: Drains: * No LDAs found * Specimen(s): * No specimens in log * Implant(s): Implant Name Type Inv. Item Serial No. Circle Edger Lot No. LRB No. Used Action SELF TAPPING BONE SCREW 6.5 X35MM [id number] Right 1 Implanted HIGH WALL LOANER [id number] Right 1 Implanted Shell Actb 54Mm Hip Lmt Hl Clr Cd Pps G7 Shell Actb 54Mm Hip Lmt Hl Clr Cd Pps G7 Tana Biomet [id number] Right 1 Implanted Head Fem 36Mm Hip Blx D Optn G7 Head Fem 36Mm Hip Blx D Optn G7 Tana Biomet [id number] Right 1 Implanted Slv Centering G7 Std Ofst Tpr Hip Ti Ty Slv Centering G7 Std Ofst Tpr Hip Ti Ty Tana Biomet [id number] Right 1 Implanted Stem Fem 11Mm 135Mm Hip 135D Std Ofst Stem Fem 11Mm 135Mm Hip 135D Std Ofst Tana Biomet [id number] Right 1 Implanted Maryjane Chowdhury MD [id number] IT UNION FIELD EXAMINER documented in this encounter Plan of Treatment Not on file documented as of this encounter Procedures Procedure Name Priority Date/Time Associated Diagnosis Comments CARDIAC STRESS TEST ORDER 09/18/2021 9:47 PM CREDIT UNION FIELD EXAMINER IMAGING/RADIOLOGY/ XRAY RESULTS ORDER 09/18/2021 8:34 PM CREDIT UNION FIELD EXAMINER HGB HCT PANEL AM Draw 09/15/2021 3:53 AM CREDIT UNION FIELD EXAMINER Primary osteoarthritis of right hip HGB HCT PANEL AM Draw 09/14/2021 2:00 AM CREDIT UNION FIELD EXAMINER Primary osteoarthritis of right hip HOME CPAP/BIPAP FOR HOSP USE: NOCTURNAL 02 Routine 09/14/2021 12:01 AM CREDIT UNION FIELD EXAMINER MS TOTAL HIP REPLACEMENT 09/13/2021 9:55 AM CREDIT UNION FIELD EXAMINER Special Needs BIOMET (BERTO) NOTIFIED-NB HOME CPAP/BIPAP FOR HOSP USE: NOCTURNAL 02 Routine 09/13/2021 8:07 AM CREDIT UNION FIELD EXAMINER documented in this encounter Results * CARDIAC STRESS TEST ORDER (09/18/2021 9:47 PM CREDIT UNION FIELD EXAMINER) Narrative 09/18/2021 9:47 PM CREDIT UNION FIELD EXAMINER Ordered by an unspecified provider. Scanned Document CARDIAC SERVICES ORD ERABLES * IMAGING RADIOLOGY XRAY RESULTS ORDER (09/18/2021 8:34 PM CREDIT UNION FIELD EXAMINER) Anatomical Region Laterality Modality Other Narrative 09/18/2021 8:34 PM CREDIT UNION FIELD EXAMINER Ordered by an unspecified provider. Scanned Document IMAGING * (ABNORMAL) HGB HCT PANEL (09/15/2021 3:53 AM CREDIT UNION FIELD EXAMINER) Hemoglobin 9.5(L) 12.0 - 17.6 gm/dL 09/15/2021 4:04 AM CREDIT UNION FIELD EXAMINER [facility] Hematocrit 30.7(L) 35.2 - 51.7 % 09/15/2021 4:04 AM CREDIT UNION FIELD EXAMINER [facility] Blood BLOOD SPECIMEN / Unknown Venipuncture / Unknown 09/15/2021 3:53 AM CREDIT UNION FIELD EXAMINER 09/15/2021 3:58 AM CREDIT UNION FIELD EXAMINER Maryjane Chowdhury MD LAB - HEMATOLOGY ORD ERABLES [facility] [address] [place] [address] * (ABNORMAL) HGB HCT PANEL (09/14/2021 2:00 AM CREDIT UNION FIELD EXAMINER) Hemoglobin 10.7(L) 12.0 - 17.6 gm/dL 09/14/2021 2:15 AM CREDIT UNION FIELD EXAMINER [facility] Hematocrit 34.5(L) 35.2 - 51.7 % 09/14/2021 2:15 AM CREDIT UNION FIELD EXAMINER [facility] Blood BLOOD SPECIMEN / Unknown Venipuncture / Unknown 09/14/2021 2:00 AM CREDIT UNION FIELD EXAMINER 09/14/2021 2:12 AM CREDIT UNION FIELD EXAMINER Maryjane Chowdhury MD LAB - HEMATOLOGY ORD ERABLES [facility] [address] [place] [address] documented in this encounter Visit Diagnoses Not on filedocumented in this encounter Administered Medications Inactive Administered Medications - up to 3 most recent administrations Medication Order MAR Action Action Date Dose Rate Site 0.9% NaCl injection 3 mL 3 mL, Intracatheter, EVERY 8 HOURS, First dose on Sat09/14/21 at 0600, Until Discontinued, Post-op $ Given 09/16/2021 6:12 AM CREDIT UNION FIELD EXAMINER 3 mL $ Given 09/15/2021 8:28 PM CREDIT UNION FIELD EXAMINER 3 mL $ Given 09/15/2021 12:38 PM CREDIT UNION FIELD EXAMINER 3 mL acetaminophen (Tylenol) tablet 650 mg 650 mg, Oral, EVERY 4 HOURS PRN, Fever, Mild Pain, Starting on Sat09/13/21 at 1402, Until 09/16/21 at 1352, For temperature greater [id number] [id number] F or for mild pain., Post-op allopurinol (Zyloprim) tablet 300 mg 300 mg, Oral, DAILY, First dose on Sat09/14/21 at 0900, Until Discontinued $ Given 09/16/2021 8:29 AM CREDIT UNION FIELD EXAMINER 300 mg $ Given 09/15/2021 8:33 AM CREDIT UNION FIELD EXAMINER 300 mg $ Given 09/14/2021 8:14 AM CREDIT UNION FIELD EXAMINER 300 mg amLODIPine (Norvasc) tablet 5 mg 5 mg, Oral, DAILY, First dose on Sat09/14/21 at 0900, Until Discontinued, Hold for sbp < 120 $ Given 09/16/2021 8:29 AM CREDIT UNION FIELD EXAMINER 5 mg $ Given 09/15/2021 8:34 AM CREDIT UNION FIELD EXAMINER 5 mg $ Given 09/14/2021 8:14 AM CREDIT UNION FIELD EXAMINER 5 mg aspirin tablet 325 mg 325 mg, Oral, 2 TIMES DAILY WITH MEALS, First dose on Sat09/14/21 at 0800, Until Discontinued, VTE Prophylaxis, post-op Hip, Post-op $ Given 09/16/2021 8:29 AM CREDIT UNION FIELD EXAMINER 325 mg $ Given 09/15/2021 5:19 PM CREDIT UNION FIELD EXAMINER 325 mg $ Given 09/15/2021 8:33 AM CREDIT UNION FIELD EXAMINER 325 mg atorvastatin (Lipitor) tablet 40 mg 40 mg, Oral, AT BEDTIME, First dose on Sat09/13/21 at 2100, Until Discontinued $ Given 09/15/2021 8:28 PM CREDIT UNION FIELD EXAMINER 40 mg $ Given 09/14/2021 8:21 PM CREDIT UNION FIELD EXAMINER 40 mg $ Given 09/13/2021 8:53 PM CREDIT UNION FIELD EXAMINER 40 mg bisacodyl (Dulcolax) suppository 10 mg 10 mg, Rectal, DAILY PRN, Constipation, Starting on Sat09/13/21 at 1402, Until 09/16/21 at 1352, Not to be given night of surgery. Use MOM first. If MOM ineffective then use bisacodyl. If bisacodyl ineffective use Fleets enema. Use rectal if oral is ineffective, or patient is unable to take oral medications., Post-op bisacodyl EC (Dulcolax) tablet 5 mg 5 mg, Oral, DAILY PRN, Constipation, Starting on Sat09/13/21 at 1402, Until 09/16/21 at 1352, Not to be given night of surgery. Use MOM first. If MOM ineffective then use bisacodyl. If bisacodyl ineffective use Fleets enema., Post-op bupivacaine liposome (Exparel) 1.3 % injection PRN, Starting on Sat09/13/21 at 1059, Until Sat09/13/21 at 1157, Intra-op $ Given 09/13/2021 10:59 AM CREDIT UNION FIELD EXAMINER 20 mL Operative Site bupivacaine PF (Marcaine PF) 0.25 % injection PRN, Starting on Sat09/13/21 at 1059, Until Sat09/13/21 at 1157, Intra-op $ Given 09/13/2021 10:59 AM CREDIT UNION FIELD EXAMINER 30 mL Operative Site carvedilol (Coreg) tablet 6.25 mg 6.25 mg, Oral, 2 TIMES DAILY WITH MEALS, First dose on Sat09/13/21 at 1800, Until Discontinued, Hold for sbp < 120 Take with food $ Given 09/16/2021 8:29 AM CREDIT UNION FIELD EXAMINER 6.25 mg $ Given 09/15/2021 8:34 AM CREDIT UNION FIELD EXAMINER 6.25 mg $ Given 09/14/2021 5:47 PM CREDIT UNION FIELD EXAMINER 6.25 mg celecoxib (CeleBREX) capsule 400 mg 400 mg, Oral, DAILY, First dose on Alina 09/14/21 at 0900, Until Discontinued, Post-op $ Given 09/16/2021 8:29 AM CREDIT UNION FIELD EXAMINER 400 mg $ Given 09/15/2021 8:33 AM CREDIT UNION FIELD EXAMINER 400 mg $ Given 09/14/2021 8:13 AM CREDIT UNION FIELD EXAMINER 400 mg diphenhydrAMINE (Benadryl) capsule 25 mg 25 mg, Oral, EVERY 8 HOURS PRN, Itching, Starting on Sat09/13/21 at 1402, Until 09/16/21 at 1352, Post-op diphenhydrAMINE (Benadryl) capsule 50 mg 50 mg, Oral, EVERY 8 HOURS PRN, Itching, Starting on Sat09/13/21 at 1402, Until 09/16/21 at 1352, May give 50 mg if 25 mg is ineffective., Post-op famotidine (Pepcid) tablet 20 mg 20 mg, Oral, 2 TIMES DAILY PRN, Heartburn, Starting on Sat09/13/21 at 1402, Until 09/16/21 at 1352, Post-op $ Given 09/15/2021 5:19 PM CREDIT UNION FIELD EXAMINER 20 mg furosemide (Lasix) tablet 20 mg 20 mg, Oral, 2 TIMES DAILY, First dose on Alina 09/14/21 at 0900, Until Discontinued, Hold for sbp < 120 $ Given 09/16/2021 8:29 AM CREDIT UNION FIELD EXAMINER 20 mg $ Given 09/15/2021 8:34 AM CREDIT UNION FIELD EXAMINER 20 mg $ Given 09/14/2021 8:21 PM CREDIT UNION FIELD EXAMINER 20 mg hydroCHLOROthiazide (Hydrodiuril) tablet 25 mg 25 mg, Oral, DAILY, First dose on Alina 09/14/21 at 0900, Until Discontinued, Hold for sbp < 120 $ Given 09/16/2021 8:29 AM CREDIT UNION FIELD EXAMINER 25 mg $ Given 09/15/2021 8:33 AM CREDIT UNION FIELD EXAMINER 25 mg $ Given 09/14/2021 8:13 AM CREDIT UNION FIELD EXAMINER 25 mg HYDROcodone-acetaminophen ([place]) 10-325 MG tablet 1 tablet 1 tablet, Oral, EVERY 4 HOURS PRN, Severe Pain, Starting on Sat09/13/21 at 1402, Until 09/16/21 at 1352, Post-op $ Given 09/16/2021 8:28 AM CREDIT UNION FIELD EXAMINER 1 tablet $ Given 09/16/2021 12:27 AM CREDIT UNION FIELD EXAMINER 1 tablet $ Given 09/15/2021 8:33 PM CREDIT UNION FIELD EXAMINER 1 tablet HYDROcodone-acetaminophen ([place]) 5-325 MG tablet 1 tablet 1 tablet, Oral, EVERY 4 HOURS PRN, Moderate Pain, or for pain prior to painful procedures/therapy, Starting on Sat09/13/21 at 1402, Until 09/16/21 at 1352, Post-op $ Given 09/14/2021 6:52 AM CREDIT UNION FIELD EXAMINER 1 tablet $ Given 09/14/2021 2:09 AM CREDIT UNION FIELD EXAMINER 1 tablet $ Given 09/13/2021 10:41 PM CREDIT UNION FIELD EXAMINER 1 tablet lactated ringers infusion at 100 mL/hr, Intravenous, CONTINUOUS, Starting on Sat09/13/21 at 1230, Until 09/16/21 at 1352, Post-op $ New Bag/Syringe 09/13/2021 2:40 PM CREDIT UNION FIELD EXAMINER 100 mL/hr lisinopril (Prinivil; Zestril) tablet 20 mg 20 mg, Oral, DAILY, First dose on Alina 09/14/21 at 0900, Until Discontinued, Hold for sbp < 120 $ Given 09/16/2021 8:29 AM CREDIT UNION FIELD EXAMINER 20 mg $ Given 09/15/2021 8:33 AM CREDIT UNION FIELD EXAMINER 20 mg $ Given 09/14/2021 8:13 AM CREDIT UNION FIELD EXAMINER 20 mg magnesium hydroxide (Milk Of Magnesia) suspension 30 mL 30 mL, Oral, PRN, Constipation, Starting on Sat09/13/21 at 1402, Until 09/16/21 at 1352, Use MOM first. If MOM ineffective then use bisacodyl. If bisacodyl ineffective use Fleets enema. Shake well before using., Post-op ondansetron (Zofran) injection 4 mg 4 mg, Intravenous, EVERY 6 HOURS PRN, Nausea/Vomiting, Starting on Sat09/14/21 at 1200, Until 09/16/21 at 1352, May repeat x1 if no relief for total of 8 mg., Post-op $ Given 09/15/2021 11:32 AM CREDIT UNION FIELD EXAMINER 4 mg polyethylene glycol 3350 (Miralax) packet 17 g 17 g, Oral, DAILY, First dose on Sat09/15/21 at 0900, Until Discontinued, Mix in 8 ounces of water, juice, soda, coffee or tea prior to administration $ Given 09/16/2021 8:28 AM CREDIT UNION FIELD EXAMINER 17 g $ Given 09/15/2021 8:34 AM CREDIT UNION FIELD EXAMINER 17 g potassium chloride ER (Klor-Con M) tablet 20 mEq 20 mEq, Oral, DAILY, First dose on Alina 09/14/21 at 0900, Until Discontinued, Do not crush or chew. $ Given 09/16/2021 8:29 AM CREDIT UNION FIELD EXAMINER 20 mEq $ Given 09/15/2021 8:33 AM CREDIT UNION FIELD EXAMINER 20 mEq $ Given 09/14/2021 8:13 AM CREDIT UNION FIELD EXAMINER 20 mEq scopolamine (Transderm-Scop) 1 patch 1 patch, Administer over 72 Hours, EVERY 72 HOURS PRN, Nausea/Vomiting, Starting on Sat09/13/21 at 0755, Until 09/16/21 at 1352, Apply patch behind the ear, do not cut patch, only 1 patch should be worn at a time and remove old patch before applying new patch.This patch may contain metal and is not compatible with MRI. Notify radiology of patch location upon arrival to MRI. Each patch contains 1.5 mg scopolamine base and is formulated to deliver 1 mg of scopolamine over 72 hours. $ Applied 09/13/2021 7:56 AM [employer] 1 patch Behind Right Ear scopolamine patch placement confirmation Transdermal, 2 TIMES DAILY, First dose on Sat09/13/21 at 0900, Until Discontinued, Patient has a patch to be confirmed on transition to inpatient and 2 times daily. senna-docusate (Senokot-S) tablet 1 tablet 1 tablet, Oral, 2 TIMES DAILY, First dose on Sat09/13/21 at 1730, Until Discontinued, Post-op $ Given 09/16/2021 8:28 AM [employer]AM[employer]ER 1 tablet $ Given 09/15/2021 8:27 PM [employer]AM[employer]ER 1 tablet $ Given 09/15/2021 8:33 AM [employer] EXAMINER 1 tablet sodium phosphate rectal (Fleet) enema 133 mL 133 mL (1 enema), Rectal, PRN, Constipation, Starting on Sat09/13/21 at 1402, Until 09/16/21 at 1352, Use MOM first. If MOM ineffective then use bisacodyl. If bisacodyl ineffective use Fleets enema., Post-op vancomycin (Vancocin) injection PRN, Starting on Sat09/13/21 at 1059, Until Sat09/13/21 at 1157, Intra-op $ Given 09/13/2021 10:59 AM [employer]ER 1,000 mg Operative Site zolpidem (Ambien) tablet 5 mg 5 mg, Oral, AT BEDTIME PRN, Insomnia, Starting on Alina 09/14/21 at 2100, Until 09/16/21 at 1352, Not to be given the night of surgery, Post-op documented in this encounter Active and Recently Administered Medications Times are shown in [employer]. Scheduled Medication Order 09/14/2021 09/15/2021 09/16/2021 0.9% NaCl injection 3 mL 3 mL, Intracatheter, EVERY 8 HOURS, First dose on Alina 09/14/21 at 0600, Until Discontinued, Post-op 0652 ($ Given - Provider: Dulce Juarez)1504 ($ Given - Provider: Celina Dale RN)2020 ($ Given - Provider: Natalia Lo, SURJIT) 0715 ($ Given - Provider: Mari Zavala RN)1238 ($ Given - Provider: Fabiana You RN)2027 ($ Given - Provider: Joana Finnegan RN) 0612 ($ Given - Provider: Joana Finnegan RN) allopurinol (Zyloprim) tablet 300 mg 300 mg, Oral, DAILY, First dose on Alina 09/14/21 at 0900, Until Discontinued 0814 ($ Given - Provider: Celina Dale RN) 0833 ($ Given - Provider: Fabiana You RN) 0829 ($ Given - Provider: Eileen Pool) amLODIPine (Norvasc) tablet 5 mg 5 mg, Oral, DAILY, First dose on Alina 09/14/21 at 0900, Until Discontinued, Hold for sbp < 120 0814 ($ Given - Provider: Celina Dale RN) 0834 ($ Given - Provider: Fabiana You RN) 0829 ($ Given - Provider: Eileen Pool) aspirin tablet 325 mg 325 mg, Oral, 2 TIMES DAILY WITH MEALS, First dose on Alina 09/14/21 at 0800, Until Discontinued, VTE Prophylaxis, post-op Hip, Post-op 0813 ($ Given - Provider: Celina Dale RN)1747 ($ Given - Provider: Natalia Lo RN) 0833 ($ Given - Provider: Fabiana You RN)1719 ($ Given - Provider: Fabiana You RN) 0829 ($ Given - Provider: Eileen Pool) atorvastatin (Lipitor) tablet 40 mg 40 mg, Oral, AT BEDTIME, First dose on Sat09/13/21 at 2100, Until Discontinued 2020 ($ Given - Provider: Natalia Lo, SURJIT) 2027 ($ Given - Provider: Joana Finnegan, SURJIT) carvedilol (Coreg) tablet 6.25 mg 6.25 mg, Oral, 2 TIMES DAILY WITH MEALS, First dose on Sat09/13/21 at 1800, Until Discontinued, Hold for sbp < 120 Take with food 0813 ($ Given - Provider: Celina Dale RN)1747 ($ Given - Provider: Natalia Lo RN) 0834 ($ Given - Provider: Fabiana You RN)172 (Not Administered - Provider: Fabiana You RN - Reason: Per Administration Instructions) 0829 ($ Given - Provider: Eileen Pool) celecoxib (CeleBREX) capsule 400 mg 400 mg, Oral, DAILY, First dose on Sat09/14/21 at 0900, Until Discontinued, Post-op 0813 ($ Given - Provider: Celina Dale RN) 0833 ($ Given - Provider: Fabiana You RN) 0829 ($ Given - Provider: Eileen Pool) furosemide (Lasix) tablet 20 mg 20 mg, Oral, 2 TIMES DAILY, First dose on Sat09/14/21 at 0900, Until Discontinued, Hold for sbp < 120 0814 ($ Given - Provider: Celina Dale RN)2020 ($ Given - Provider: Natalia Lo, SURJIT) 0834 ($ Given - Provider: Fabiana You RN)2034 (Not Administered - Provider: Joana Finnegan, SURJIT - Reason: Per Administration Instructions) 0829 ($ Given - Provider: Eileen Pool) hydroCHLOROthiazide (Hydrodiuril) tablet 25 mg 25 mg, Oral, DAILY, First dose on Sat09/14/21 at 0900, Until Discontinued, Hold for sbp < 120 0813 ($ Given - Provider: Celina Dale RN) 0833 ($ Given - Provider: Fabiana You RN) 0829 ($ Given - Provider: Eileen Pool) lisinopril (Prinivil; Zestril) tablet 20 mg 20 mg, Oral, DAILY, First dose on Sat09/14/21 at 0900, Until Discontinued, Hold for sbp < 120 0813 ($ Given - Provider: Celina Dale RN) 0833 ($ Given - Provider: Fabiana You RN) 0829 ($ Given - Provider: Eileen Pool) ondansetron (Zofran) injection 4 mg ()(Linked Group 1) 4 mg, Intravenous, EVERY 6 HOURS, 3 doses, First dose on Sat09/13/21 at 1800, Last dose on Sat09/14/21 at 0600, Administer over 2 to 5 minutes., Post-op 0006 (Not Administered - Provider: Christina Burton RN - Reason: Refused-Patient)0653 ($ Given - Provider: Dulce Juarez) polyethylene glycol 3350 (Miralax) packet 17 g 17 g, Oral, DAILY, First dose on Sat09/15/21 at 0900, Until Discontinued, Mix in 8 ounces of water, juice, soda, coffee or tea prior to administration 0834 ($ Given - Provider: Fabiana You RN) 0828 ($ Given - Provider: Eileen Pool) potassium chloride ER (Klor-Con M) tablet 20 mEq 20 mEq, Oral, DAILY, First dose on Sat09/14/21 at 0900, Until Discontinued, Do not crush or chew. 0813 ($ Given - Provider: Celina Dale RN) 0833 ($ Given - Provider: Fabiana You RN) 0829 ($ Given - Provider: iEleen Pool) scopolamine patch placement confirmation Transdermal, 2 TIMES DAILY, First dose on Sat09/13/21 at 0900, Until Discontinued, Patient has a patch to be confirmed on transition to inpatient and 2 times daily. 0814 (Removed - Provider: Celina Dale RN - Comment: by patient)2020 (Removed - Provider: Natalia Lo RN - Comment: via pt) 102 (Removed - Provider: Fabiana You RN)2033 (*Reviewed - Provider: Joana Finnegan RN) 0830 (Removed - Provider: Eileen Pool) senna-docusate (Senokot-S) tablet 1 tablet 1 tablet, Oral, 2 TIMES DAILY, First dose on Sat09/13/21 at 1730, Until Discontinued, Post-op 0813 ($ Given - Provider: Celina Dale RN)2020 ($ Given - Provider: Natalia Lo, SURJIT) 0833 ($ Given - Provider: Fabiana You RN)2026 ($ Given - Provider: Joana Finnegan RN) 0828 ($ Given - Provider: Eileen Pool) Continuous Medication Order 09/14/2021 09/15/2021 09/16/2021 lactated ringers infusion at 100 mL/hr, Intravenous, CONTINUOUS, Starting on Sat09/13/21 at 1230, Until 09/16/21 at 1352, Post-op PRN Medication Order 09/14/2021 09/15/2021 09/16/2021 acetaminophen (Tylenol) tablet 650 mg 650 mg, Oral, EVERY 4 HOURS PRN, Fever, Mild Pain, Starting on Sat09/13/21 at 1402, Until 09/16/21 at 1352, For temperature greater [id number] degress F or for mild pain., Post-op bisacodyl (Dulcolax) suppository 10 mg(Linked Group 2) 10 mg, Rectal, DAILY PRN, Constipation, Starting on Sat09/13/21 at 1402, Until 09/16/21 at 1352, Not to be given night of surgery. Use MOM first. If MOM ineffective then use bisacodyl. If bisacodyl ineffective use Fleets enema. Use rectal if oral is ineffective, or patient is unable to take oral medications., Post-op bisacodyl EC (Dulcolax) tablet 5 mg(Linked Group 2) 5 mg, Oral, DAILY PRN, Constipation, Starting on Sat09/13/21 at 1402, Until 09/16/21 at 1352, Not to be given night of surgery. Use MOM first. If MOM ineffective then use bisacodyl. If bisacodyl ineffective use Fleets enema., Post-op diphenhydrAMINE (Benadryl) capsule 25 mg(Linked Group 3) 25 mg, Oral, EVERY 8 HOURS PRN, Itching, Starting on Sat09/13/21 at 1402, Until 09/16/21 at 1352, Post-op diphenhydrAMINE (Benadryl) capsule 50 mg(Linked Group 3) 50 mg, Oral, EVERY 8 HOURS PRN, Itching, Starting on Sat09/13/21 at 1402, Until 09/16/21 at 1352, May give 50 mg if 25 mg is ineffective., Post-op famotidine (Pepcid) tablet 20 mg 20 mg, Oral, 2 TIMES DAILY PRN, Heartburn, Starting on Sat09/13/21 at 1402, Until 09/16/21 at 1352, Post-op 1719 ($ Given - Provider: Fabiana You RN) HYDROcodone-acetaminop hen ([place]) 10-325 MG tablet 1 tablet 1 tablet, Oral, EVERY 4 HOURS PRN, Severe Pain, Starting on Sat09/13/21 at 1402, Until 09/16/21 at 1352, Post-op 1154 ($ Given - Provider: Celina Dale RN)1747 ($ Given - Provider: Natalia Lo RN)2219 ($ Given - Provider: Natalia Lo RN) 0246 ($ Given - Provider: Natalia Lo RN)0715 ($ Given - Provider: Mari Zavala RN)1238 ($ Given - Provider: Fabiana You RN)2033 ($ Given - Provider: Joana Finnegan RN) 0027 ($ Given - Provider: Joana Finnegan RN)0828 ($ Given - Provider: Eileen Pool) HYDROcodone-acetaminop hen ([place]) 5-325 MG tablet 1 tablet 1 tablet, Oral, EVERY 4 HOURS PRN, Moderate Pain, or for pain prior to painful procedures/therapy, Starting on Sat09/13/21 at 1402, Until 09/16/21 at 1352, Post-op 0209 ($ Given - Provider: Christina Burton RN)0652 ($ Given - Provider: Dulce Juarez) magnesium hydroxide (Milk Of Magnesia) suspension 30 mL(Linked Group 2) 30 mL, Oral, PRN, Constipation, Starting on Sat09/13/21 at 1402, Until 09/16/21 at 1352, Use MOM first. If MOM ineffective then use bisacodyl. If bisacodyl ineffective use Fleets enema. Shake well before using., Post-op ondansetron (Zofran) injection 4 mg(Linked Group 1) 4 mg, Intravenous, EVERY 6 HOURS PRN, Nausea/Vomiting, Starting on Alina 09/14/21 at 1200, Until 09/16/21 at 1352, May repeat x1 if no relief for total of 8 mg., Post-op 1132 ($ Given - Provider: Fabiana You RN) scopolamine (Transderm-Scop) 1 patch 1 patch, Administer over 72 Hours, EVERY 72 HOURS PRN, Nausea/Vomiting, Starting on Sat09/13/21 at 0755, Until 09/16/21 at 1352, Apply patch behind the ear, do not cut patch, only 1 patch should be worn at a time and remove old patch before applying new patch.This patch may contain metal and is not compatible with MRI. Notify radiology of patch location upon arrival to MRI. Each patch contains 1.5 mg scopolamine base and is formulated to deliver 1 mg of scopolamine over 72 hours. 0829 (Removed - Provider: Eileen Pool) sodium phosphate rectal (Fleet) enema 133 mL(Linked Group 2) 133 mL (1 enema), Rectal, PRN, Constipation, Starting on Sat09/13/21 at 1402, Until 09/16/21 at 1352, Use MOM first. If MOM ineffective then use bisacodyl. If bisacodyl ineffective use Fleets enema., Post-op zolpidem (Ambien) tablet 5 mg 5 mg, Oral, AT BEDTIME PRN, Insomnia, Starting on Sat09/14/21 at 2100, Until 09/16/21 at 1352, Not to be given the night of surgery, Post-op Linked Groups Order Group 1: ondansetron (Zofran) injection 4 mg ()Jump to med 4 mg, Intravenous, EVERY 6 HOURS, 3 doses, First dose on Sat09/13/21 at 1800, Last dose on Sat09/14/21 at 0600, Administer over 2 to 5 minutes., Post-op Followed by ondansetron (Zofran) injection 4 mgJump to med 4 mg, Intravenous, EVERY 6 HOURS PRN, Nausea/Vomiting, Starting on Alina 09/14/21 at 1200, Until 09/16/21 at 1352, May repeat x1 if no relief for total of 8 mg., Post-op Group 2: magnesium hydroxide (Milk Of Magnesia) suspension 30 mLJump to med 30 mL, Oral, PRN, Constipation, Starting on 09/13/21 at 1402, Until 09/16/21 at 1352, Use MOM first. If MOM ineffective then use bisacodyl. If bisacodyl ineffective use Fleets enema. Shake well before using., Post-op Or bisacodyl EC (Dulcolax) tablet 5 mgJump to med 5 mg, Oral, DAILY PRN, Constipation, Starting on 09/13/21 at 1402, Until 09/16/21 at 1352, Not to be given night of surgery. Use MOM first. If MOM ineffective then use bisacodyl. If bisacodyl ineffective use Fleets enema., Post-op Or bisacodyl (Dulcolax) suppository 10 mgJump to med 10 mg, Rectal, DAILY PRN, Constipation, Starting on 09/13/21 at 1402, Until 09/16/21 at 1352, Not to be given night of surgery. Use MOM first. If MOM ineffective then use bisacodyl. If bisacodyl ineffective use Fleets enema. Use rectal if oral is ineffective, or patient is unable to take oral medications., Post-op Or sodium phosphate rectal (Fleet) enema 133 mLJump to med 133 mL (1 enema), Rectal, PRN, Constipation, Starting on 09/13/21 at 1402, Until 09/16/21 at 1352, Use MOM first. If MOM ineffective then use bisacodyl. If bisacodyl ineffective use Fleets enema., Post-op Group 3: diphenhydrAMINE (Benadryl) capsule 25 mgJump to med 25 mg, Oral, EVERY 8 HOURS PRN, Itching, Starting on 09/13/21 at 1402, Until 09/16/21 at 1352, Post-op Or diphenhydrAMINE (Benadryl) capsule 50 mgJump to med 50 mg, Oral, EVERY 8 HOURS PRN, Itching, Starting on Sat09/13/21 at 1402, Until 09/16/21 at 1352, May give 50 mg if 25 mg is ineffective., Post-op documented in this encounter Care Teams Legislative Director Relationship Specialty Start Date End Date Gianluca Price MD [address] [place] [id number] PCP - General Internal Medicine 08/29/21 documented as of this encounter
--- OUTSIDE RECORDS SUMMARY | 2024-10-05 02:44 | XMS_ITS | Encounter Summary ---
Author Organization [facility] Address [facility] [place] [address] Care Team Providers Care Complex Manager Name Role Phone Unavailable Primary Care Provider Unavailabl e Reason for Visit * Auth/Cert Specialty Diagnoses / Procedures Referred By Contac t Referred To Contact Procedures ARTHROPLASTY TOTAL HIP Referral ID Status Reason Start Date Expiration Date Visits Re quested Visits Authorized [id number] 1 1 Encounter Details Date Type Department Care Team (Latest Contact Info) Description 12/22/2019 9:57 AM CDT - 12/25/2019 3:07 PM CDT Hospital Encounter DP 1[facility] [id number] [place] [id number] [place] [address] [place] [address] Surgery Orthopedics Discharge Disposition: Home Health Care Svc Social History Tobacco Use Types Packs/Day Years Used Date Smoking Tobacco: Never Smokeless Tobacco: Never Alcohol Use Standard Drinks/Week Comments Yes 0 (1 standard drink = 0.6 oz pur e alcohol) occas Sex and Gender Information Value Date Recorded Sex Assigned at Not on file Gender Identity Not on file Sexual Orientation Not on file documented as of this encounter Last Filed Vital Signs Vital Sign Reading Time Taken Comments Blood Pressure 113/77 12/25/2019 12:36 PM CDT Pulse 102 12/25/2019 12:36 PM CDT Temperature 36.8 ??C (98.2 ??F) 12/25/2019 12:36 PM C DT Respiratory Rate 18 12/25/2019 12:36 PM CDT Oxygen Saturation 100% 12/25/2019 12:36 PM CDT Inhaled Oxygen Concentration - - Weight 139.7 kg (308 lb) 12/22/2019 11:34 AM CDT Height 195.6 cm (6' 5 ) 12/22/2019 11:34 AM CDT Body Mass Index 36.52 12/22/2019 11:34 AM CDT documented in this encounter Functional Status Functional Status Response Date of Assess ment Is person deaf or have serious hearing difficult y? No 12/25/2019 Is person blind or have serious difficulty seein g? No 12/25/2019 Does person have serious dif ficulty walking/climbing stairs? No 12/25/2019 Does person have difficulty dressing/bathing? No 12/25/2019 Does person have difficulty doing errands alone? Yes 12/25/2019 Cognitive Status Response Date of Assessm ent Does person have difficulty concentrating/remembering/making decisions? No 12/25/2019 documented as of this encounter Discharge Summaries * Maryjane Segura MD - 12/25/2019 3:07 PM CDT Dc summary Dc home regular diet Full wb Pain meds- norco Elaquis Dx djd right hip Procedure right total hip complications none Condition improved office fu 3 weeks fmrama documented in this encounter Medications at Time of Discharge Medication Sig Dispensed Refills Start Date End Date allopurinol (ZYLOPRIM) 300 MG tabletIndications:P rimary Gout Take 300 mg by mouth once daily Reasons: Primary Gout amLODIPine (NORVASC) 5 MG tabletIndications:H ypertension Take 5 mg by mouth once daily Reasons: High Blood Pressure Disorder apixaban (ELIQUIS) 5 MG tabletIndications:C erebrovascular Accident Take 5 mg by mouth 2 times daily Reasons: Cerebrovascular Accident or Stroke atorvastatin (LIPITOR) 40 MG tabletIndications:H yperlipidemia Take 40 mg by mouth once daily Reasons: High Amount of Fats in the Blood carvedilol (COREG) 6.25 MG tabletIndications:H ypertension Take 6.25 mg by mouth 2 times daily with morning and evening meal Reasons: High Blood Pressure Disorder clopidogrel (PLAVIX) 75 MG tabletIndications:A cute Coronary Syndrome Take 75 mg by mouth once daily Reasons: Acute Coronary Syndrome furosemide (LASIX) 20 MG tabletIndications:H ypertension Take 20 mg by mouth 2 times daily Reasons: High Blood Pressure Disorder hydroCHLOROthiazide (HYDRODIURIL) 25 MG tabletIndications:H ypertension Take 25 mg by mouth once daily Reasons: High Blood Pressure Disorder potassium chloride ER (KLOR-CON M) 20 MEQ tabletIndications:H ypokalemia Take 20 mEq by mouth once daily Reasons: Low Amount of Potassium in the Blood quinapril (ACCUPRIL) 40 MG tabletIndications:H ypertension Take 40 mg by mouth once daily Reasons: High Blood Pressure Disorder HYDROcodone-acetami nophen (NORCO) 10-325 MG tablet Take 1 tablet by mouth every 6 hours as needed for Pain 50 tablet 12/24/2019 08/29/2021 spironolactone (ALDACTONE) 25 MG tabletIndications:H ypertension Take 25 mg by mouth once daily Reasons: High Blood Pressure Disorder 08/29/20 21 documented as of this encounter Progress Notes * Kiersten Castro RN - 12/25/2019 3:46 PM CDT Shift summary: Lian is A&O x4. Approved for discharge by Dr. Segura, Dr. Lafleur and Dr. Alarcon. IV and telemetry were removed. Discharge instructions were provided and all questions were answered. He was wheeled out for discharge at 15:07. * Kiersten Castro RN - 12/25/2019 3:44 PM CDT Problem: Fall Risk Goal: Fall risk and fall related injury risk are minimized Outcome: Goal Met Note: Fall precautions in place. Patient remains safe. Problem: Incision Care Goal: Incision remains intact with edges well approximated Outcome: Goal Met Note: Dressing is c/d/I. Goal: Incision is free of infection. Outcome: Goal Met Note: No signs or symptoms of infection noted. Problem: Hip Precautions Goal: Hip precautions are followed Outcome: Goal Met Note: Patient is aware of hip precautions. Problem: Pain/Discomfort Goal: Patient exhibits reduced pain/discomfort as evidenced by pain scores Outcome: Goal Met Note: Pain is controlled by ice, rest and medication. Goal: Patient uses pharmacological and non-pharmacological pain management strategies. Outcome: Goal Met Goal: Patient exhibits reduced pain/discomfort as evidenced by pain scores Outcome: Goal Met Note: Pain is controlled by ice, rest and medication. * Brendan Alarcon MD - 12/25/2019 3:07 PM CDT [facility] [place] Brendan Alarcon MD Patient's Primary Care Physician: Gianluca Price MD , Name: Lian Andrade Age: [age] year old Sex: male Admission date:12/22/2019 Reason for Cardiac Evaluation CAD, history of atrial fibrillation History of Present Illness Lian Andrade is a 63 year old male has a past medical history of Atherosclerosis of coronary artery, Essential hypertension, Obesity, PONV (postoperative nausea and vomiting), Pure hypercholesterolemia, and Sleep apnea. Patient was admitted to the hospital for hip replacement. No cp No dyspnea No Syncope No palpitations ROS A complete review of systems is performed. Pertinent negatives and/or positives are noted in HPI HISTORY Past Medical History: Diagnosis Date ??? Atherosclerosis of coronary artery ??? Essential hypertension ??? Obesity ??? PONV (postoperative nausea and vomiting) ??? Pure hypercholesterolemia ??? Sleep apnea Past Surgical History: Procedure Laterality Date ??? CARDIAC CATHETERIZATION, LEFT 2015 4 stents total ??? HIP ARTHROPLASTY, TOTAL Left 12/22/2019 LEFT HIP ARTHROPLASTY ??? HIP ARTHROPLASTY, TOTAL Left 12/22/2019 Left; LEFT HIP ARTHROPLASTY ??? Knee Replacement Right 2016 ??? Knee Replacement Left 2017 ??? LUMBAR SPINE FUSION 2013 No family history on file. Allergies Allergen Reactions ??? Rosuvastatin Myalgias Social History Tobacco Use ??? Smoking status: Never Smoker ??? Smokeless tobacco: Never Used Substance Use Topics ??? Alcohol use: Yes Comment: occas ??? Drug use: Not Currently EXAMINATION Filed Vitals: 12/25/19 0719 12/25/19 0956 12/25/19 1027 12/25/19 1236 BP: 109/64 110/67 113/77 Pulse: 96 (!) 113 102 Resp: 18 18 Temp: 99 ??F (37.2 ??C) 98.2 ??F (36.8 ??C) TempSrc: Oral Oral SpO2: 98% 100% Weight: Height: Intake/Output Summary (Last 24 hours) at 12/25/2019 1724 Last data filed at 12/25/2019 1338 Gross per 24 hour Intake 790 ml Output 900 ml Net -110 ml General appearance- NAD- conversant Eyes- anicteric ENMT Oral mucosa moist. Neck- supple Chest Clear no rales ronchi CVS Nl s1 s2 no murmurs/gallops irreg JVD - none/No carotid bruit Abdomen Soft Nontender Bowel sounds present Extremities Edema None. No cyanosis Psych- Awake alert oriented LABS Recent Labs Component Name 12/24/19 0540 12/23/19 0208 10/22/19 1034 WBC - - 9.4 HGB 11.3* 12.5 14.5 HCT 34.1* 38.3 44.0 PLTCOUNT - - 237 Recent Labs Component Name 12/22/19 1046 10/22/19 1034 SODIUM 138 139 POTASSIUM 3.3* 3.7 BUN 18 15 CREATININE 0.77 0.79 No results for input(s): CHOL, TRIG, HDL, LDLCALC in the last 16131 hours. Recent Labs Component Name 12/24/19 0540 BNP 129* No results for input(s): INR in the last 29434 hours. No results for input(s): TROPONINI in the last 40819 hours. ASSESSMENT/ PLAN Status post hip replacement History of coronary artery disease status post 4 stents No CP Old records reviewed CAD s/p Complex coronary disease. PCI of trifurcating left main circumflex, inferior ramus, superior ramus, and ostial LAD in a staged manner with multiple CRISTHIAN stents in 2016, atrial fibrillation s/pTEE/CV 11-05-19. WILMER showed Mod-severe MR and Moderate TR Stress test showed-stress test revealed Evidence of moderate size and - severe ischemia in the basal- and mid-segment of the anterior wall extending into the anterolateral wall. Recent cardiac catheterization revealed [id number] 3 vessel disease of the RCA, LAD and superior ramus. ??His prior complex stents are patent with mild to moderate restenosis. History of atrial fibrillation Patient has paroxysmal atrial fibrillation. Rates controlled Patient is on Eliquis.- Low blood pressure. Patient received IV fluids. We may need to modify his BP meds. Dyslipidemia Continue statin therapy. Thank you for allowing us to participate in the care of Lian Andrade BRENDAN ALARCON MD [facility] Pager # [phone] * Susanne Baltazar RN - 12/25/2019 11:51 AM CDT Progressing with therapy. Plan remains to discharge home with [facility]. Spouse to provide transportationat discharge. Will continue to follow for discharge needs. Susanne Baltazar RN, BSN Gemologist [phone] * Josselyn Louise, PT - 12/25/2019 11:02 AM CDT Physical Therapy Treatment Summary Chart review completed. Nursing consented for PT. Explained purpose of PT and patient consented to participate in therapy. Sp L post ELLIOT SUBJECTIVE: Patient sitting up in chair. Declines supine exercises or instr in supine<> sit- states he has been using leg telemarketer and also his will be able to assist him at home. States he has no steps at home and his L LE is too sore to practice step today. Patient Patient Arthroplasty Liaison (PAL): will assist at DC Patient's Goal for the Day: Pain Assessment: Pain Rating Score #: 5 Pain Location : Hip Pain Orientation: Left Pain Quality: Aching OBJECTIVE: Orientation Level: Oriented X4 Precautions: L post ELLIOT Bed Mobility: Supine to Sit: (pt declined- states he is using leg telemarketer ) Sit to Supine: Moderate Assistance;Requires Verbal Cues for Technique;Requires Verbal Cues for Safety(instr in use of leg telemarketer.using side rails) Transfers: Sit to Stand: Modified Echo Stand to Sit: Modified Echo Mobility: Distance Ambulated: 70 FEET(x2) Ambulation: Assistive Device: Gait Belt;Walker-2 Wheeled Ambulation: Level of Assistance: Modified Echo;Requires Verbal Cues for Technique;Requires Verbal Cues for Safety Ambulation: Gait Deviations: Antalgic;Doris - Decreased;Increased Trunk Flexion;Step Length - Decreased;Weight Shift - Decreased;Increased Weight Bearing through Upper Extremity;Heel Strike - Decreased Weight Bearing Status-LLE: Weight Bearing as Tolerated Balance: Standing - Static: Good -;With Both Upper Extremity's Support Standing - Dynamic: Good -;With Both Upper Extremity's Support Exercise: instr in sitting B LE AP GS and LAQ x 12-15 reps Activity Tolerance: Pulse: (!) 113(at rest. post gait HR 123) ASSESSMENT: Patient progressing with gait training - improved stride length and foot clearance L LE. PT demonstrates ability to maintain L ELLIOT precautions with mobility. Ice therapy applied after treatment. Call light and phone in reach RN, , notified of patient's performance/location end of session. Pt educated in PT plan of care, fall precautions, and benefits of OOB activity Please refer to the Filed Flowsheet PT Treatment for further details. RECOMMENDATIONS/PLAN: Patient planning DC home with [facility] Josselyn Louise, PT x * Mansoor Lafleur MD - 12/25/2019 10:41 AM CDT Admit Date: 12/22/2019 9:57 AM Hospital Day: 3 Reason for visit/follow up: Joint replacement New Symptoms Patient has no new symptoms Data Vitals: 12/24/19 2331 12/25/19 0455 12/25/19 0719 12/25/19 0956 BP: 115/63 125/65 109/64 110/67 Pulse: 105 106 96 Resp: 18 18 18 Temp: 97.9 ??F (36.6 ??C) 98.6 ??F (37 ??C) 99 ??F (37.2 ??C) SpO2: 95% 99% 98% Weight: Height: Intake/Output Summary (Last 24 hours) at 12/25/2019 1041 Last data filed at 12/25/2019 0720 Gross per 24 hour Intake 1030 ml Output 1100 ml Net -70 ml My review of labs, imaging, notes and other tests is significant for anemia Recent Labs Component Name 12/22/19 1046 10/22/19 1034 SODIUM 138 139 POTASSIUM 3.3* 3.7 CHLORIDE 104 104 CO2 21* 24 BUN 18 15 CREATININE 0.77 0.79 GLUCOSE 105 93 CALCIUM 10.2 9.8 Recent Labs Component Name 12/24/19 0540 12/23/19 0208 10/22/19 1034 WBC - - 9.4 HGB 11.3* 12.5 14.5 HCT 34.1* 38.3 44.0 PLTCOUNT - - 237 MEDICATIONS FOR CURRENT ENCOUNTER: SCHEDULED MEDICATIONS: 0.9% NaCl injection 3 mL, Intracatheter, q8h allopurinol (ZYLOPRIM) tablet 300 mg, Oral, QDAY amLODIPine (NORVASC) tablet 5 mg, Oral, QDAY apixaban (ELIQUIS) tablet 5 mg, Oral, BID atorvastatin (LIPITOR) tablet 40 mg, Oral, QDAY carvedilol (COREG) tablet 6.25 mg, Oral, BID WC celecoxib (CeleBREX) capsule 400 mg, Oral, QDAY furosemide (LASIX) tablet 20 mg, Oral, QDAY hydroCHLOROthiazide (HYDRODIURIL) tablet 25 mg, Oral, QDAY lisinopril (PRINIVIL; ZESTRIL) tablet 10 mg, Oral, QDAY polyethylene glycol 3350 (MIRALAX) packet 17 g, Oral, QDAY potassium chloride ER (KLOR-CON M) tablet 20 mEq, Oral, BID senna-docusate (SENOKOT-S) tablet 1 tablet, Oral, BID ?? spironolactone (ALDACTONE) tablet 25 mg, Oral, QDAY CONTINUOUS MEDICATIONS: ?? lactated ringers infusion, Intravenous, Continuous Exam General appearance: alert, cooperative, Heart: regular rhythm, normal S1 and S2, without murmurs, Lungs: breath sounds symmetric; no rales or wheezes Abdomen: soft , non-tender, with normal bowel sounds Extremities: no cyanosis , trace edema Assessment and Plan CAD Resume cardiac meds. resume plavix at dc Resumed eliquis ?? HTN Resumed home medications with parameters. PRN antihypertensives also ordered BP in acceptable range ?? Hyperlipidemia Continue statin ?? 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 Noted and asymptomatic. ?? Left total hip replacement. Followed post op orders. Tolerated PT per protocol DVT prophylaxis: back on Eliquis Okay to discharge patient from medical standpoint Discharge medication list reviewed and reconciled. ?? * Rosetta Blanchard, OT - 12/25/2019 9:49 AM CDT Occupational Therapy Treatment Summary Chart reviewed for diagnosis and medical systems review. Nursing consented for OT. Explained purpose of OT and patient consented to participate in therapy. 63 y/o male presenting s/p L ELLIOT Posterior Approach PMH and chart reviewed.?? Precautions:??fall; Posterior Hip Precautions Patient participated in education/review of precautions/restrictions this session. SUBJECTIVE: Pt agreeable to OT session, sitting up in chair on arrival. Pt reporting possibly discharging home today. Pt reporting spouse will be able to provide supervision for ADLs at home. Psychosocial: Calm; Cooperative Pt's goal for therapy: LE dressing OBJECTIVE: Pain Assessment: Pain Rating Score #: 3 Pain Location : Hip Pain Orientation: Left Cognition: Orientation Level: Oriented X4 Level of Consciousness-Adult: Alert Cognition: Follows Commands-Consistent;Attention/concentration-normal for age;Processing-Appropriate Functional Mobility: Transfers (with use of 2-WW): Sit to Stand: Stand By Assist;Requires Verbal Cues for Safety;Requires Verbal Cues for Technique Stand to Sit: Stand By Assist;Requires Verbal Cues for Safety;Requires Verbal Cues for Technique ADL Tasks (clinical observation and judgement): Feeding: Complete Echo Oral Facial Hygiene: Stand By Assist Bathing: Minimal Assistance Upper Body Dressing: Set-up Lower Body Dressing: Minimal Assistance Toileting: Minimal Assistance Activity Tolerance/Vital Signs: Activity Tolerance: Requires rest breaks ASSESSMENT: Pt able to recall 3/3 posterior total hip precautions. Therapist reviewed use of DME, safe techniques for ADL completion, and fall prevention techniques. Pt completing LE dressing (don/doff socks, pants, and shoes) with use of AE with min A (A required for correct use of LH shoe horn and A for standing balance/transfer with use of 2-WW). Will continue to follow and progress activity as able/tolerated. Call light and phone in reach. All lines, monitors, IV's, equipment in place and intact pre and post visit. RN notified of patient's performance/location end of session. Please refer to the Filed Flowsheet OT Treatment for further details. Refer to care plan for goals. RECOMMENDATIONS/PLAN: AM-PAC Basic Activity score for this patient is CMS 0-100% Score (Calculated): 42.8 % degree of impairment with higher scores indicating patient may benefit from further inpatient services. OT Discharge Recommendations: Home Health OT If this is the last Occupational Therapy visit, this serves as the discharge summary. Rosetta Blanchard OT [phone] * Mari Zavala RN - 12/25/2019 6:16 AM CDT Shift highlight:patient was given norco for left hip pain. With abductor pillow in place while in bed. * Cindi Pressley RN - 12/24/2019 7:49 PM CDT Resting in bed alert, oriented Up with contact guard assist. Remains tachy/ afib on tele. Paged screen print operator exchange to discuss rate control, waiting for return call. Pt denies chest pain, no sob. Pain controlled with norco. No further drainage visible on left hip dressing * Mari Zavala RN - 12/24/2019 6:54 PM CDT Problem: Fall Risk Goal: Fall risk and fall related injury risk are minimized Outcome: Ongoing Lian calls before getting up Problem: Incision Care Goal: Incision remains intact with edges well approximated Outcome: Ongoing Goal: Incision is free of infection. Outcome: Ongoing Dressing changed this morning Problem: Hip Precautions Goal: Hip precautions are followed Outcome: Ongoing With abductor pillow in place while in bed Problem: Pain/Discomfort Goal: Patient exhibits reduced pain/discomfort as evidenced by pain scores Outcome: Ongoing Lian verbalized acceptable pain score within 1 hour of taking norco. * Maryjane Segura MD - 12/24/2019 4:43 PM CDT orto Pos 2 Doing well Dc home tomorrow fmaylack * Josselyn Louise, PT - 12/24/2019 2:25 PM CDT Physical Therapy Treatment Summary Patient was seen BID this date for physical therapy. Pt consented to treatment. Sp L Post ELLIOT. Subjective: I am doing better with using the strap and getting in and out of bed. Pain: 5/10 in the L hip Objective: Patient sitting up in chair when therapist arrived Transfers: Sit to/from stand with min- sba assistance Car transfer demonstrates to patient- patient is DC in [facility]. Ambulation: Patient ambulated 70 feet x 2 with ww and min assistance- flexed posture. Step to gait pattern. Improving with L foot clearance Steps/Curb: VC for sequence and ww placement Instructed patient to ascend/descend curb with ww and min assistance. Exercise: Patient performed 12 reps of ELLIOT HEP in sitting Patient educated in ELLIOT precautions. patientrecalls 3/3 and demonstrates ability to maintain precautions with mobility. Patient remained in reach of call light. Applied ice pack post-treatment. Assessment/Plan: Patient progressing with functional mobility. Demonstrates good balance and safetywith gait and transfers. Continue PT per SALEEM Louise, PT 12/24/2019 * Mansoor Lafleur MD - 12/24/2019 12:16 PM CDT Admit Date: 12/22/2019 9:57 AM Hospital Day: 2 Reason for visit/follow up: Joint replacement New Symptoms Patient has no new symptoms Data Vitals: 12/23/19 1925 12/23/19 2141 12/24/19 0308 12/24/19 0710 BP: 137/79 117/67 113/67 149/83 Pulse: (!) 134 (!) 114 109 99 Resp: 18 Temp: 98.1 ??F (36.7 ??C) 98.6 ??F (37 ??C) 98.2 ??F (36.8 ??C) 98.4 ??F (36.9 ??C) SpO2: 98% 99% 98% 97% Weight: Height: Intake/Output Summary (Last 24 hours) at 12/24/2019 1216 Last data filed at 12/24/2019 0522 Gross per 24 hour Intake 2610.36 ml Output 2975 ml Net -364.64 ml My review of labs, imaging, notes and other tests is significant for stable hgb Recent Labs Component Name 12/22/19 1046 10/22/19 1034 SODIUM 138 139 POTASSIUM 3.3* 3.7 CHLORIDE 104 104 CO2 21* 24 BUN 18 15 CREATININE 0.77 0.79 GLUCOSE 105 93 CALCIUM 10.2 9.8 Recent Labs Component Name 12/24/19 0540 12/23/19 0208 10/22/19 1034 WBC - - 9.4 HGB 11.3* 12.5 14.5 HCT 34.1* 38.3 44.0 PLTCOUNT - - 237 MEDICATIONS FOR CURRENT ENCOUNTER: SCHEDULED MEDICATIONS: 0.9% NaCl injection 3 mL, Intracatheter, q8h allopurinol (ZYLOPRIM) tablet 300 mg, Oral, QDAY amLODIPine (NORVASC) tablet 5 mg, Oral, QDAY apixaban (ELIQUIS) tablet 5 mg, Oral, BID atorvastatin (LIPITOR) tablet 40 mg, Oral, QDAY carvedilol (COREG) tablet 6.25 mg, Oral, BID WC celecoxib (CeleBREX) capsule 400 mg, Oral, QDAY furosemide (LASIX) tablet 20 mg, Oral, QDAY hydroCHLOROthiazide (HYDRODIURIL) tablet 25 mg, Oral, QDAY lisinopril (PRINIVIL; ZESTRIL) tablet 10 mg, Oral, QDAY polyethylene glycol 3350 (MIRALAX) packet 17 g, Oral, QDAY senna-docusate (SENOKOT-S) tablet 1 tablet, Oral, BID ?? [] ondansetron (ZOFRAN) injection 4 mg, Intravenous, q6h CONTINUOUS MEDICATIONS: ?? lactated ringers infusion, Intravenous, Continuous Exam General appearance: alert, cooperative, Heart: regular rhythm, normal S1 and S2, without murmurs, Lungs: breath sounds symmetric; no rales or wheezes Abdomen: soft , non-tender, with normal bowel sounds Extremities: no cyanosis , trace edema Assessment and Plan CAD Resume cardiac meds. resume plavix at dc Resumed eliquis ?? HTN Resumed home medications with parameters. PRN antihypertensives also ordered BP in acceptable range ?? Hyperlipidemia Continue statin ?? 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 Noted and asymptomatic. ?? Left total hip replacement. Following post op orders. PT per protocol DVT prophylaxis: back on Eliquis Bowel regimen ordered. ?? * Rosetta Blanchard OT - 12/24/2019 11:45 AM CDT Occupational Therapy Treatment Summary Chart reviewed for diagnosis and medical systems review. Nursing consented for OT. . Explained purpose of OT and patient consented to participate in therapy. 63 y/o male presenting s/p L ELLIOT Posterior Approach PMH and chart reviewed. Precautions: fall; Posterior Hip Precautions Patient participated in education/review of precautions/restrictions this session. SUBJECTIVE: Pt agreeable to OT session, in bed on arrival. Pt reporting spouse can assist him at d/c, reporting she works in a school cafeteria, but only working mornings at this time. Psychosocial: Calm; Cooperative Patient's goal for the day: UE/LE dressing OBJECTIVE: Cognition: Orientation Level: Oriented X4 Cognition: Follows Commands-Consistent;Processing-Appropriate;Attention/concentration-normal for age Pain Assessment: Pain Rating Score #: 5 Pain Location : Hip Pain Orientation: Left Functional Mobility: Bed Mobility: Supine to Sit: Moderate Assistance;Requires Verbal Cues for Technique;Requires Physical Cues for Technique Transfers (with use of 2-WW): Sit to Stand: Minimal Assistance;Requires Verbal Cues for Technique;Requires Physical Cues for Technique Stand to Sit: Minimal Assistance;Requires Verbal Cues for Technique;Requires Physical Cues for Technique Toilet Transfers: Minimal Assistance;Requires Verbal Cues for Technique;Requires Physical Cues for Technique ADL Tasks (clinical observation and judgement): Feeding: Complete Echo Oral Facial Hygiene: Minimal Assistance Bathing: Moderate Assistance Upper Body Dressing: Set-up Lower Body Dressing: Minimal Assistance Toileting: Minimal Assistance Activity Tolerance/Vital Signs: Activity Tolerance: Complains of fatigue after standing activity/gait;Requires rest breaks ASSESSMENT: Pt benefiting from OT services. Posterior total hip precautions reviewed with completion of ADLs. UE/LE dressing completed seated/standing from chair with use of 2-WW this date. Cues required for correct use of AE and min A for dynamic standing balance for LE dressing. Pt also educated on use of DME to ensure adherence to hip precautions on handout and educated/issued Fall Prevention handout. Will continue to follow and progress activity as able/tolerated. Call light and phone in reach. All lines, monitors, IV's, equipment in place and intact pre and post visit. RN notified of patient's performance/location end of session. Please refer to the Filed Flowsheet OT Treatment for further details. Refer to care plan for goals. RECOMMENDATIONS/PLAN: AM-PAC Basic Activity score for this patient is CMS 0-100% Score (Calculated): 46.65 % degree of impairment with higher scores indicating patient may benefit from further inpatient services. OT Discharge Recommendations: Home Health OT;24 Hour Supervision;24 Hour Care;Daily Assist;To Be Determined If this is the last Occupational Therapy visit, this serves as the discharge summary. Rosetta Blanchard OT [phone] * Josselyn Louise, PT - 12/24/2019 10:02 AM CDT Physical Therapy Treatment Summary Chart review completed. Nursing consented for PT. Explained purpose of PT and patient consented to participate in therapy. Sp L ELLIOT posterior - WBAT SUBJECTIVE: I really could not walk very far at home- just room to room. Patient Arthroplasty Liaison (PAL): will assist at DC Patient's Goal for the Day: walk Pain Assessment: Pain Rating Score #: 5 Pain Location : Hip Pain Orientation: Left Pain Quality: Gnawing;Pressure OBJECTIVE: Orientation Level: Oriented X4 Precautions: L posterior LELIOT. WBAT Bed Mobility: Sit to Supine: Moderate Assistance;Requires Verbal Cues for Technique;Requires Verbal Cues for Safety(instr in use of leg telemarketer.using side rails) Transfers: Sit to Stand: Minimal Assistance;Requires Verbal Cues for Technique;Requires Verbal Cues for Safety Stand to Sit: Minimal Assistance;Requires Verbal Cues for Safety;Requires Verbal Cues for Technique Mobility: Distance Ambulated: 50 FEET Ambulation: Assistive Device: Gait Belt;Walker-2 Wheeled Ambulation: Level of Assistance: Requires Verbal Cues for Technique;Requires Verbal Cues for Safety;Minimum Assistance Ambulation: Gait Deviations: Step Length - Decreased;Weight Shift - Decreased;Increased Weight Bearing through Upper Extremity;Doris - Decreased;Push Off - Decreased;Heel Strike - Decreased Weight Bearing Status-LLE: Weight Bearing as Tolerated Balance: Standing - Static: Good -;With Both Upper Extremity's Support Standing - Dynamic: Good -;With Both Upper Extremity's Support Exercise: instr in L ELLIOT exercises x 12 reps Activity Tolerance: VSS see doc flow ASSESSMENT: Patient demonstrated progress with supine- sit with use of leg telemarketer. Patient presentswith flexed posture, L Le weakness, requires min a with gait for safety and balance. Ice therapy applied after treatment. Call light and phone in reach RN, notified of patient's performance/location end of session. Pt educated in PT plan of care, fall precautions, and benefits of OOB activity Please refer to the Filed Flowsheet PT Treatment for further details. RECOMMENDATIONS/PLAN: Patient planning DC home with [facility] Josselyn Louise, PT x * Mari Zavala RN - 12/24/2019 7:47 AM CDT Problem: Fall Risk Goal: Fall risk and fall related injury risk are minimized Outcome: Ongoing Ilan calls before getting up Problem: Incision Care Goal: Incision remains intact with edges well approximated Outcome: Ongoing Goal: Incision is free of infection. Outcome: Ongoing Dressing changed this morning Problem: Hip Precautions Goal: Hip precautions are followed Outcome: Ongoing With abductor pillow in place while in bed Problem: Pain/Discomfort Goal: Patient exhibits reduced pain/discomfort as evidenced by pain scores Outcome: Ongoing Lian verbalized acceptable pain score within 1 hour of taking norco. * Mari Zavala RN - 12/24/2019 7:34 AM CDT Shift highlight:patient was up at bedside using walker with contact guard assist and gait belt. 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 * Brendan Alarcon MD - 12/23/2019 9:06 PM CDT [facility] [place] Brendan Alarcon MD Patient's Primary Care Physician: Gianluca Price MD , Name: Lian Andrade Age: [age] year old Sex: male Admission date:12/22/2019 Reason for Cardiac Evaluation CAD, history of atrial fibrillation History of Present Illness Lian Andrade is a 63 year old male has a past medical history of Atherosclerosis of coronary artery, Essential hypertension, Obesity, PONV (postoperative nausea and vomiting), Pure hypercholesterolemia, and Sleep apnea. Patient was admitted to the hospital for hip replacement. No cp No dyspnea No Syncope No palpitations ROS A complete review of systems is performed. Pertinent negatives and/or positives are noted in HPI HISTORY Past Medical History: Diagnosis Date ??? Atherosclerosis of coronary artery ??? Essential hypertension ??? Obesity ??? PONV (postoperative nausea and vomiting) ??? Pure hypercholesterolemia ??? Sleep apnea Past Surgical History: Procedure Laterality Date ??? CARDIAC CATHETERIZATION, LEFT 2015 4 stents total ??? HIP ARTHROPLASTY, TOTAL Left 12/22/2019 LEFT HIP ARTHROPLASTY ??? HIP ARTHROPLASTY, TOTAL Left 12/22/2019 Left; LEFT HIP ARTHROPLASTY ??? Knee Replacement Right 2016 ??? Knee Replacement Left 2017 ??? LUMBAR SPINE FUSION 2013 No family history on file. Allergies Allergen Reactions ??? Rosuvastatin Myalgias Social History Tobacco Use ??? Smoking status: Never Smoker ??? Smokeless tobacco: Never Used Substance Use Topics ??? Alcohol use: Yes Comment: occas ??? Drug use: Not Currently EXAMINATION Filed Vitals: 12/23/19 1442 12/23/19 1530 12/23/19 1740 12/23/19 1925 BP: 106/54 100/57 113/70 137/79 Pulse: (!) 136 (!) 169 (!) 120 (!) 134 Resp: 18 18 Temp: 98.4 ??F (36.9 ??C) 98.1 ??F (36.7 ??C) TempSrc: Oral Oral SpO2: 97% 100% 98% Weight: Height: Intake/Output Summary (Last 24 hours) at 12/23/20192105 Last data filed at 12/23/20192004 Gross per 24 hour Intake 3450.36 ml Output 825 ml Net 2625.36 ml General appearance- NAD- conversant Eyes- anicteric ENMT Oral mucosa moist. Neck- supple Chest Clear no rales ronchi CVS Nl s1 s2 no murmurs/gallops irregular JVD - none/No carotid bruit Abdomen Soft Nontender Bowel sounds present Extremities Edema None. No cyanosis Psych- Awake alert oriented LABS Recent Labs Component Name 12/23/19 0208 10/22/19 1034 WBC - 9.4 HGB 12.5 14.5 HCT 38.3 44.0 PLTCOUNT - 237 Recent Labs Component Name 12/22/19 1046 10/22/19 1034 SODIUM 138 139 POTASSIUM 3.3* 3.7 BUN 18 15 CREATININE 0.77 0.79 No results for input(s): CHOL, TRIG, HDL, LDLCALC in the last 14059 hours. No results for input(s):BNP, NTPROBNP in the last 31215 hours. No results for input(s): INR in the last 08169 hours. No results for input(s): TROPONINI in the last 59707 hours. CURRENT MEDS SCHEDULED MEDICATIONS: 0.9% NaCl injection 3 mL, Intracatheter, q8h allopurinol (ZYLOPRIM) tablet 300 mg, Oral, QDAY amLODIPine (NORVASC) tablet 5 mg, Oral, QDAY apixaban (ELIQUIS) tablet 5 mg, Oral, BID atorvastatin (LIPITOR) tablet 40 mg, Oral, QDAY carvedilol (COREG) tablet 6.25 mg, Oral, BID WC celecoxib (CeleBREX) capsule 400 mg, Oral, QDAY furosemide (LASIX) tablet 20 mg, Oral, QDAY hydroCHLOROthiazide (HYDRODIURIL) tablet 25 mg, Oral, QDAY lisinopril (PRINIVIL; ZESTRIL) tablet 10 mg, Oral, QDAY polyethylene glycol 3350 (MIRALAX) packet 17 g, Oral, QDAY senna-docusate (SENOKOT-S) tablet 1 tablet, Oral, BID [COMPLETED] ceFAZolin (ANCEF) 2,000 mg in 50 ml IVPB, Intravenous, q8h [] ondansetron (ZOFRAN) injection 4 mg, Intravenous, q6h CONTINUOUS MEDICATIONS: 0.9% NaCl infusion, Intravenous, Continuous lactated ringers infusion, Intravenous, Continuous DATA ASSESSMENT/ PLAN Status post hip replacement History of coronary artery disease status post 4 stents No chest pain. No evidence of acute coronary syndrome. Old records reviewed CAD s/p Complex coronary disease. PCI of trifurcating left main circumflex, inferior ramus, superior ramus, and ostial LAD in a staged manner with multiple CRISTHIAN stents in 2016, atrial fibrillation s/pTEE/CV 11-05-19. WILMER showed Mod-severe MR and Moderate TR Stress test showed-stress test revealed Evidence of moderate size and - severe ischemia in the basal- and mid-segment of the anterior wall extending into the anterolateral wall. Recent cardiac catheterization revealed [id number] 3 vessel disease of the RCA, LAD and superior ramus. ??His prior complex stents are patent with mild to moderate restenosis. History of atrial fibrillation Patient has paroxysmal atrial fibrillation. Rates are under control. Patient is on Eliquis.- restarted Low blood pressure. Patient received IV fluids. We may need to modify his BP meds. Dyslipidemia Continue statin therapy. Thank you for allowing us to participate in the care of Lian Andrade BRENDAN ALARCON MD [facility] Pager # [phone] * Maddi Em RN - 12/23/2019 8:12 PM CDT A/O X 4 BP was low most of AM; Dr Lafleur made aware and 500cc bolus of NS given and started on NS at 100/hr. BP came up in afternoon. Because of low BP, tylenol given in AM and then in afternoon when BP higher [place] 5 given. [place] dsg to L posterior hip is cdi this afternoon; it was changed on NOC shift last night. Voiding without difficulties. Pt on telemetry and stays in A Fib most of time. Pt is asymptomatic. Cardiology notified of consultyesterday and call placed to office early today. 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 * Maddi Em RN - 12/23/2019 8:12 PM CDT Problem: Fall Risk Goal: Fall risk and fall related injury risk are minimized Outcome: Ongoing Flowsheets (Taken 12/23/2019 0909) Ariadna Mendez Fall Risk Total: 12 [place] Fall Risk Precaution Interventions: Call light/belongings in reach Bed in low position and locked Wheelchairs and chairs locked Side rails upx2 Ensure adequate lighting Clutter free and spill free environment Educate to the purpose of universal fall precautions Educate to call for assistance Keep closet and bathroom doors closed when not in use Use of appropriate footwear (see row information) Moderate Fall Risk Interventions (11-14): Follow universal fall precautions (UFPs) Individualize HD Falls Care Plan Place FALL RISK ID band on patient Instruct patient/ family to call staff for assistance when getting out of bed or access out of reach items Provide patient/family education based on risk assessment using the HDS Place YELLOW Fall Precaution signage outside patient door Do not leave pts unattended while toileting or in the bathroom Mobility Interventions Related to Falls: Use gait belt when assisting patient to ambulate when not contraindicated Use proper positioning assist devices (chair belts, wedges, recliners) Toileting Fall Interventions: Toilet patient at regular and frequent intervals Toilet prior to giving pain medications Note: Pt will work with PT to learn to ambulate safely with walker Problem: Incision Care Goal: Incision remains intact with edges well approximated Outcome: Ongoing Note: Unable to assess due to dsg in place. Goal: Incision is free of infection. Outcome: Ongoing Note: Unable to assess due to dsg in place; there will be no drainage or odor coming from dsg. Problem: Hip Precautions Goal: Hip precautions are followed Outcome: Ongoing Note: Hip precautions are being followed. Problem: Pain/Discomfort Goal: Patient exhibits reduced pain/discomfort as evidenced by pain scores Outcome: Ongoing Goal: Patient uses pharmacological and non-pharmacological pain management strategies. Outcome: Ongoing * Zora Felix RPH - 12/23/2019 5:23 PM CDT [facility] Pharmacy Services Admission Medication Review Lian Andrade is a 63 year old male I have reviewed patient's home medication list with the patient and the electronic medical record. The medication list review was after the physician has seen and acted upon, and is now ready for re-review/order by physician. Medication List Revisions Medications removed: aspirin, baclofen, temazepam, ciprofloxacin Medications added: Eliquis 5mg twice daily & Aldactone 25mg daily Thank you for the opportunity to take part of Lian Andrade's care. Zora Felix RPH * Laila Wong PTA - 12/23/2019 2:55 PM CDT Physical Therapy Treatment Summary Patient was seen BID this date for physical therapy. Pt consented to treatment. Pt cont'd with low BP, on IVF. BP monitored t/o session. Subjective: I feel the best now that I have since I've been here . Pain: no real c/o. Objective: Transfers: Supine to sit with mod assistance with HOB up and rail Sit to/from stand with min assistance Ambulation: Patient ambulated 38 feet with ww and min assistance of 1 and SBA of another for safety/IV pole Exercise: Patient performed 10 reps of ELLIOT HEP. Patient educated in no hip ABD ex, post hip prec, safe mob, S/S of low BP if symptomatic and to usecall light for assist back to bed if feeling symptomatic. Pt's BP stable at 103/58 HOB up 20 deg, 100/61 sitting EOB and 106/54 post amb. HR 132 post amb. Pt in chair after RX with tray table, phone and call light in reach. Patient remained in reach of call light. Applied ice pack post-treatment. Pt stated he felt his wound was bleeding. Assessed bandage, some faint red drainage noted through bandage with [address] the way through bandage but not dripping or leaking. Nsg notified. Assessment/Plan: Pt progress is slow. Advance to inc mobility, stairs, car transfer as able. Laila Wong PTA Ext [phone] 12/23/2019 * Susanne Baltazar RN - 12/23/2019 11:32 AM CDT Case Management Progress Note Anticipated level of care at discharge: Home Health Care Discharge Plan: Met with patient at the bedside. S/P left total hip arthroplasty. Plan is to discharge home with [facility]. Patient lives with his spouse in a 1 story home with no steps to enter. Spouse will provide transportation at discharge. Patient has a 2 Wheeled walker for home use. Will have [facility] at discharge. Patient declined offer to contact family/caregiver to discuss discharge plans. 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 Chart reviewed for diagnosis and medical systems review. Nursing consented for OT. Explained purpose of OT and patient consented to participate in therapy. 63 y/o male presenting s/p L ELLIOT Posterior Approach PMH and chart reviewed. Precautions: fall; Posterior Hip Precautions SUBJECTIVE: Pt agreeable to OT eval, sitting up in chair on arrival. Pt reporting spouse is off of work at this time and can assist him PRN. 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 Psychosocial: Patient Behaviors: Calm;Cooperative Pt's goal for therapy: to go home with family support Occupational Profile/PLOF: Type of Residence: Private Residence Lives with:: Spouse Home Structure: One Story Primary Bedroom: First Floor Primary Bathroom: First Floor Bathroom : Tub/Shower Combo(and walk-in shower ) Equipment At Home: Cane-Straight;Walker-2 Wheeled;Toilet Seat - Raised;Sock Aid Mobility: Ambulate-In Community;Ambulate-In Home ;Independent Fallen Within 6 Mos: 1 Have Help at Home?: Yes, there is help at home now How often is assistance provided?: spouse can assist PRN at d/c Level of Help Sufficient?: Yes Activity at Home: Sedentary Cognition: Orientation Level: Oriented X4 Level of Consciousness-Adult: Alert Cognition: Follows Commands-Consistent;Attention/concentration-normal for age;Processing-Appropriate Pain Assessment: Pain Rating Score #: 5 Pain Location : Hip Pain Orientation: Left RUE Assessment: AROM - Right Upper Extremity: Within Functional Limits Strength - Right Upper Extremity: Within Functional Limits LUE Assessment: AROM - Left Upper Extremity: Within Functional Limits Strength - Left Upper Extremity: Within Functional Limits Basic ADL's (clinical observation and judgement): Feeding: Complete Echo Oral Facial Hygiene: Minimal Assistance Bathing: Moderate Assistance Upper Body Dressing: Set-up Lower Body Dressing: Moderate Assistance Toileting: Minimal Assistance Functional Mobility: -to/from bathroom with use of 2-WW with min A for balance/WW management Transfers (With use of 2-WW): Sit to Stand: Minimal Assistance;Requires Verbal Cues for Technique;Requires Physical Cues for Technique Stand to Sit: Minimal Assistance;Requires Verbal Cues for Technique;Requires Physical Cues for Technique Toilet Transfers: Minimal Assistance;Requires Verbal Cues for Technique;Requires Physical Cues for Technique Vitals: Activity Tolerance: Requires rest breaks;Complains of fatigue after standing activity/gait ASSESSMENT: Pt educated on posterior hip precautions on handout and safe use of 2-WW for ADL completion. Pt reporting has sock aid at home, spouse to bring in to practice use next session. Pt also educated/issued card filer, LH sponge, shoe horn to assist. Pt able to demo back use for LE dressing (doff B socks and don/doff pants) with mod A (min A for use of AE and min A for dynamic standing balance for clothing management). Pt educated on elevated toilet seat and tub-transfer bench for showering at d/manufacturing director ensure adherence with hip precautions. Pt educated on sponge bathing until home health to complete assessment for DME needs. Will continue to follow and progress activity as able/tolerated. Call light and phone in reach. All lines, monitors, IV's, equipment in place and intact pre and post visit. RN notified of patient's performance/location end of session. Problem list: Decreased strength, decreased ROM, decreased endurance, decreased balance, impaired functional mobility, decreased coordination, impaired safety awareness, cognitive impairment, impaired cardiopulmonary function, decreased knowledge of condition, decreased pain tolerance, need for family/caregiver training Functional limitation: Decreased independence with transfers; decreased ability to perform ADLs, decreased UE strength, decreased safety with functional mobility. Rationale for therapy: Patient will benefit from OT to address the above issues. Patient will be seen for: ADL retraining, functional transfers, balance, endurance, exercise. Refer to Plan of Care for OT goals. Refer to filed flow sheet for further details. RECOMMENDATIONS/PLAN: AM-PAC Basic Activity score for this patient is CMS 0-100% Score (Calculated): 50.11 % degree of impairment with higher scores indicating patient may benefit from further inpatient services. OT Discharge Recommendations: Home Health OT and daily assist from spouse PRN If this is the last Occupational Therapy visit, this serves as the discharge summary. Rosetta Blanchard OT [phone] * Mansoor Lafleur MD - 12/23/2019 10:17 AM CDT Admit Date: 12/22/2019 9:57 AM Hospital Day: 1 Reason for visit/follow up: Joint replacement New Symptoms Patient has no new symptoms Data Vitals: 12/22/19 2243 12/23/19 0154 12/23/19 0829 12/23/19 1006 BP: 125/81 101/66 107/63 (!) 138/100 Pulse: 103 94 58 80 Resp: Temp: 97.9 ??F (36.6 ??C) 97.7 ??F (36.5 ??C) 98.2 ??F (36.8 ??C) SpO2: 100% 99% 97% Weight: Height: Intake/Output Summary (Last 24 hours) at 12/23/2019 1017 Last data filed at 12/23/2019 0909 Gross per 24 hour Intake 2230 ml Output 450 ml Net 1780 ml My review of labs, imaging, notes and other tests is significant for stable hgb Recent Labs Component Name 12/22/19 1046 10/22/19 1034 SODIUM 138 139 POTASSIUM 3.3* 3.7 CHLORIDE 104 104 CO2 21* 24 BUN 18 15 CREATININE 0.77 0.79 GLUCOSE 105 93 CALCIUM 10.2 9.8 Recent Labs Component Name 12/23/19 0208 10/22/19 1034 WBC - 9.4 HGB 12.5 14.5 HCT 38.3 44.0 PLTCOUNT - 237 MEDICATIONS FOR CURRENT ENCOUNTER: ?? SCHEDULED MEDICATIONS: ?? 0.9% NaCl injection 3 mL, Intracatheter, q8h ?? allopurinol (ZYLOPRIM) tablet 300 mg, Oral, QDAY ?? amLODIPine (NORVASC) tablet 5 mg, Oral, QDAY ?? aspirin tablet 325 mg, Oral, BID WC ?? atorvastatin (LIPITOR) tablet 40 mg, Oral, QDAY ?? carvedilol (COREG) tablet 6.25 mg, Oral, BID WC ?? celecoxib (CeleBREX) capsule 400 mg, Oral, QDAY ?? furosemide (LASIX) tablet 20 mg, Oral, QDAY ?? hydroCHLOROthiazide (HYDRODIURIL) tablet 25 mg, Oral, QDAY ?? lisinopril (PRINIVIL; ZESTRIL) tablet 10 mg, Oral, QDAY ?? ondansetron (ZOFRAN) injection 4 mg, Intravenous, q6h ?? polyethylene glycol 3350 (MIRALAX) packet 17 g, Oral, QDAY ?? senna-docusate (SENOKOT-S) tablet 1 tablet, Oral, BID ?? [COMPLETED] ceFAZolin (ANCEF) 2,000 mg in 50 ml IVPB, Intravenous, q8h ?? [COMPLETED] ceFAZolin (ANCEF) 3,000 mg in 115 mL IVPB, Intravenous, Once ?? [COMPLETED] fentaNYL (PF) (SUBLIMAZE) injection 50 mcg, Intravenous, Once ?? [COMPLETED] fentaNYL (PF) (SUBLIMAZE) injection 50 mcg, Intravenous, Once ?? [COMPLETED] fentaNYL (PF) (SUBLIMAZE) injection 50 mcg, Intravenous, Once ?? [COMPLETED] povidone-iodine (BETADINE) 5 % solution, Topical, Once ?? CONTINUOUS MEDICATIONS: ?? lactated ringers infusion, Intravenous, Continuous Exam General appearance: alert, cooperative, Heart: regular rhythm, normal S1 and S2, without murmurs, Lungs: breath sounds symmetric; no rales or wheezes Abdomen: soft , non-tender, with normal bowel sounds Extremities: no cyanosis , trace edema Assessment and Plan CAD Resume cardiac meds. Holding plavix Resume once okay with Dr Segura Home med review per pharmacist. Patient mentioned he takes ?oral anticoagulant ?? HTN Resumed home medications with parameters. PRN antihypertensives also ordered BP in acceptable range ?? Hyperlipidemia Continue statin ?? History of gout Continue allopurinol History of a fib Irregular on telemetry today HR elevated IV fluids Resume BB Cardiology consult noted. Communicated with Dr Alarcon 12 lead EKG: A fib with RVR Discussed with RN ?? Left total hip replacement. Following post op orders. PT per protocol DVT prophylaxis per surgeon preference Bowel regimen ordered. ?? Discussed with Dr Segura, will resume Eliquis as per home dose * Laila Wong PTA - 12/23/2019 10:10 AM CDT Physical Therapy Treatment Summary Chart review completed. Nursing consented for PT. Explained purpose of PT and patient consented to participate in therapy. Pt up in hip chair. Issueddischarge ticket and ed. Reviewed post hip prec with handout in room. Pt left hip booklet at home. Pt ed in use of call light and not to get up without staff assist.Reviewed hip prec with in depth demo/explanation of 90 degrees of hip flex in sup/sit/stand.Pt ed in performing frequent AP, QS, IS everette quently and drinking plenty of fluids.Pt ed in WBAT, safe gt and transfers with ww, HEP, ice use, role of OT, use/purpose of ABD wedge, pt allowed to sleep on R side with pillow or folded blanket between knees, how to inc seat height with folded blankets/pillows at home if needed. Pt states he has a power recliner chair at home, sleeps in bed at home. H/O chronic back pn/issues. SUBJECTIVE: I've been up in the chair a while, I'll stay here until it's bed time. That bed is notcomfortable . Patient Arthroplasty Liaison (PAL): not stated. Patient's Goal for the Day: Agrees/ready for PT. Pain Assessment: No real c/o, states 12/14. Using ice, meds per nsg/doctor due to low BP per nsg. OBJECTIVE: Orientation Level: Appropriate for developmental age;Oriented X4 Precautions: Fall, post hip prec, no ABD ex per Dr. Segura. Bed Mobility: Not assessed. Pt prefers to stay up in hip chair, modified ex with use of stool to prop leg on while sitting. Will assess this p.m. Transfers: Sit to Stand: Minimal Assistance;Requires Verbal Cues for Safety;Requires Verbal Cues for Technique(tall/hip chair.) Stand to Sit: Minimal Assistance;Requires Verbal Cues for Safety;Requires Verbal Cues for Technique(tall/hip chair.) Mobility: Distance Ambulated: 30 FEET Ambulation: Assistive Device: Gait Belt;Walker-Bariatric;Walker-2 Wheeled Ambulation: Level of Assistance: Minimum Assistance;Stand By Assist;Requires Verbal Cues for Safety;Requires Verbal Cues for Technique Ambulation: Gait Deviations: Doris - Decreased;Heel Strike - Decreased;Push Off - Decreased;Increased Trunk Flexion;Increased Weight Bearing through Upper Extremity;Step Length - Decreased Weight Bearing Status-LLE: Weight Bearing as Tolerated Balance: Standing - Static: Good;With Both Upper Extremity's Support Standing - Dynamic: Good -;With Both Upper Extremity's Support Exercise: 10 reps. Activity Tolerance: Activity Tolerance: Requires rest breaks;Requires seated rest breaks;Complains of fatigue after standing activity/gait Pulse: 80('s to 110's at rest and up to 130 post amb.) BP: (!) 138/100(took x 2 with similar reading.) ASSESSMENT: Pt shantanu fairly well. Amb short distance with flexed posture and H/O chronic back pn. VSSexcept BP reading as noted, nsg notified. No SOB. Progress may be a little slower than expected pending cardiology/ H/O back pn/issues. Goals reviewed. Pt in hip chair after RX with tray table, phoneand call light in reach. Ice therapy applied after treatment. Call light and phone in reach. All lines, monitors, IV's, equipment in place and intact pre and post visit. RNKassidy, notified of patient's performance/location end of session. Pt was educated in PT plan of care, fall precautions, and benefits of OOB activity/PT. Please refer to the Filed Flowsheet PT Treatment for further details. RECOMMENDATIONS/PLAN: Rec cont'd PT for gt, strength, AD and ROM progression.Anticipate discharge home Fri, or [place] if needed pending progress, team to be updated at rounds this afternoon. Pt will benefit from PT to maximize independent, functional mobility post ELLIOT surgery. PT Discharge Recommendations: Home;24 Hour Supervision;Home Health PT(vs AR.) Recommended Transportation Method: Private Car Laila Wong PTA x [phone] * Blaine Riley RN - 12/23/2019 12:38 AM CDT Problem: Fall Risk Goal: Fall risk and fall related injury risk are minimized Outcome: Ongoing Fall precautions in place Problem: Incision Care Goal: Incision remains intact with edges well approximated Outcome: Ongoing Monitor Problem: Hip Precautions Goal: Hip precautions are followed Outcome: Ongoing Review hip precautions with pt * Joana Finnegan RN - 12/22/2019 6:25 PM CDT Shift Summary: Arrived to the unit at 1600. 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 Neuro checks completed. Silver dressing intact. Up with therapy, sitting in chair. Significant other at bedside. * Vicenta Abbasi, PT - 12/22/2019 5:14 PM CDT Physical Therapy Evaluation PT orders received. Chart reviewed for diagnosis and medical systems review. Nursing consented for PT. Explained purpose of PT and patient consented to participate in therapy. S/p L Posterior ELLIOT H/o B TKA, L spine fusiion, cardiac stents, apnea, obesity SUBJECTIVE: Pt states I'm drowsy but is agreeable to therapy. Pt stated he was limited in his mobility prior to surgery to walking to the bathroom d/t pain. Patient Arthroplasty Liaison (PAL): pt's Home Situation: Type of Residence: Private Residence Lives with:: Spouse Steps to Enter: No Home Structure: One Story Equipment At Home: Cane-Straight;Walker-2 Wheeled;Toilet Seat - Raised Prior Level of Functioning: Mobility: Ambulate-In Community;Driving Fallen Within 6 Mos: 1 Have Help at Home?: Yes, there is help at home now Pain Assessment: Pain Rating Score #: 5 Pain Location : Hip Pain Orientation: Left Pain Quality: Gnawing;Pressure Patient/family stated goal: Return to walking and activities without pain OBJECTIVE: Precautions: Total Hip Precautions: Yes(L Posterior ) Other Precautions: Fall Cognition: Orientation Level: Oriented X4 Level of Consciousness-Adult: Alert;Drowsy Participation: Active Participation ROM and Strength: AROM - Right Lower Extremity: Within Functional Limits Strength - Right Lower Extremity: Within Functional Limits AROM - Left Lower Extremity: Exceptions Strength - Left Lower Extremity: Exceptions Sensation: Sensation - Right Lower Extremity: Within Normal Limits Sensation - Left Lower Extremity: Within Normal Limits Balance: Standing - Static: Fair;With Both Upper Extremity's Support Standing - Dynamic: Fair;With Both Upper Extremity's Support Bed Mobility: Supine to Sit: Minimal Assistance;Requires Verbal Cues for Safety;Requires Verbal Cues for Technique Transfers: Sit to Stand: Moderate Assistance;Requires Verbal Cues for Safety;Requires Verbal Cues for Technique Stand to Sit: Minimal Assistance;Requires Verbal Cues for Safety;Requires Verbal Cues for Technique Mobility: Distance Ambulated: 5 FEET Ambulation: Assistive Device: Walker-2 Wheeled;Gait Belt Ambulation: Level of Assistance: Requires Verbal Cues for Safety;Requires Verbal Cues for Technique;Minimum Assistance Ambulation: Gait Deviations: Doris - Decreased;Heel Strike - Decreased;Push Off - Decreased;Increased Trunk Flexion;Increased Weight Bearing through Upper Extremity Weight Bearing Status-LLE: Weight Bearing as Tolerated Exercise: ELLIOT protocol with ankle pumps, quad sets, glut sets x 10 reps, seated LAQ Activity Tolerance: SpO2: 100 % Pulse: 65 BP: 114/82 ASSESSMENT: S/p L posterior ELLIOT with pt tolerating Tx well with pain managed at 5/10 with PEST CONTROL OPERATOR. Pt amb 5 ft from bed to chair with min A and VCs with flexed trunk, and mod A for sit to stand d/t c/o weakness . Pt has chronic back pain that also limits pt's mobility.Pt will need to ambulate 150 ft FWW independently to return home with his and HHPT. Call light and phone in reach with pt up in chair. All lines, monitors, IV's, equipment in place and intact pre and post visit. RNJoana, notified of patient's performance/location end of session. Pt educated in PT plan of care, fall precautions, and benefits of OOB activity, ELLIOT ex, hip precautions, proper technique with transfers and bed mobility. Problem list: decreased strength, decreased balance, decreased endurance, decreased ROM Functional limitations: Decreased independence with ambulation/transfers, decreased safety with functional mobility. Rationale for therapy: Patient will benefit from PT to address the above issues. Please refer to Filed Flowsheet PT Evaluation for further details. Refer to Plan of Care for PT goals. RECOMMENDATIONS/PLAN: Continue PT BID in hospital to maximize pt's functional independence. Discharge Equipment Recommendations: None(pt has DME) PT Discharge Recommendations: Home Health PT Recommended Transportation Method: Private Car )Vicenta Abbasi, PT x [phone] * Joana Finnegan RN - 12/22/2019 4:31 PM CDT Problem: Fall Risk Goal: Fall risk and fall related injury risk are minimized Outcome: Ongoing Flowsheets (Taken 12/22/2019 1710) [place] Fall Risk Precaution Interventions: Call light/belongings in reach Bed in low position and locked Wheelchairs and chairs locked Side rails upx2 Ensure adequate lighting Clutter free and spill free environment Educate to the purpose of universal fall precautions Educate to call for assistance Keep closet and bathroom doors closed when not in use Use of appropriate footwear (see row information) Problem: Incision Care Goal: Incision remains intact with edges well approximated Outcome: Ongoing Note: Mr. Hutchinsons incisions will remain intact during this shift. Goal: Incision is free of infection. Outcome: Ongoing Problem: Incision Care Goal: Incision is free of infection. Outcome: Ongoing Mr. Andrade will have incisons intact during this shift. Problem: Hip Precautions Goal: Hip precautions are followed Outcome: Ongoing Mr. Andrade will have hip precautions during this shift. * Franca Canada RN - 12/22/2019 11:43 AM CDT Potassium 3.3, Dr Morejon aware. documented in this encounter H&P Notes * Maryjane Segura MD - 12/23/2019 12:25 PM CDT Images from the original note were not included. HISTORY AND PHYSICAL PATIENT: LIAN ANDRADE MR#: [id number] ADMIT DATE: 10/22/2019 CSN: [id number] : 1955 ROOM: PHYSICIAN: MARYJANE Huynh. MD [place] ? CHIEF COMPLAINT: Left hip pain. ?? HISTORY OF PRESENT ILLNESS: The patient is here with a 10 years of sharp, stabbing, progressive left hip pain Release ability to stand, walk drive climb exercise perform hygiene, activities of daily living, and with fear of falling. It has been refractory to all conservative measures including NSAIDs, injections, and therapy. Here for elective left total hip replacement. ?? PAST MEDICAL HISTORY: Hip pain. ?? REVIEW OF SYSTEMS: Hip pain. ?? FAMILY HISTORY: DJD. ?? SOCIAL HISTORY: Nonsmoker. ?? [address] [id number] Notes Report Lian Andrade , : 1955, Sex: M Adm: 10/22/2019, D/C: 10/22/2019 Maryjane Segura MD Physician Surgery Orthopedics H&P Signed Date of Service: 10/22/2019 11:59 PM Creation Time: 12/21/2019 ??4:39 PM Show:Clear all [x]Manual[]Template[]Copied Added by: [x]Maryjane Segura MD []Hover for details ? [facility] ?? HISTORY AND PHYSICAL PATIENT: LIAN ANDRADE MR#: [id number] ADMIT DATE: 10/22/2019 CSN: [id number] : 1955 ROOM: PHYSICIAN: MARYJANE Huynh. MD [place] ? CHIEF COMPLAINT: Left hip pain. ?? HISTORY OF PRESENT ILLNESS: The patient is here with a 10 years of sharp, stabbing, progressive left hip pain Release ability to stand, walk drive climb exercise perform hygiene, activities of daily living, and with fear of falling. It has been refractory to all conservative measures including NSAIDs, injections, and therapy. Here for elective left total hip replacement. ?? PAST MEDICAL HISTORY: Hip pain. ?? REVIEW OF SYSTEMS: Hip pain. ?? FAMILY HISTORY: DJD. ?? SOCIAL HISTORY: Nonsmoker. ?? PHYSICAL EXAM: Patient awake alert oriented x3. CHEST: Clear. HEART: Regular rate and rhythm. ABDOMEN: Soft. NEUROVASCULAR: Intact. No mental status changes. Good motion of neck, upper extremities. Painful limited range of motion of left hip with limp and antalgia. ?? DIAGNOSTIC DATA: X-rays show advanced DJD of the left hip with pevm-ob-lhot disease. ?? PLAN: Elective left total hip replacement patient understands and wished to proceed. ? Maryjane Huynh. MD [place] ? [facility] #: [id number] ?? 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 CHEST: Clear. HEART: Regular rate and rhythm. ABDOMEN: Soft. NEUROVASCULAR: Intact. No mental status changes. Good motion of neck, upper extremities. Painful limited range of motion of left hip with limp and antalgia. ?? DIAGNOSTIC DATA: X-rays show advanced DJD of the left hip with vtrm-ye-wozb Disease. * Maryjane Segura MD - 12/23/2019 12:24 PM CDT Cc djd hpi Hip djd for elective total hip replacement Full note dictated p e Painful right hip with limp xrays djd right hip Plan Right thr fmayrama documented in this encounter Consult Notes * Lindsey Concepcion - 12/25/2019 3:19 PM CDT Pt discharge paperwork has been faxed to [facility]. Thank you for this referral. Lindsey Concepcion Admission Associate [facility] [phone] [email or web address] * Lindsey Concepcion - 12/23/2019 4:36 PM CDTAssociated Order(s): IP CONSULT TO HOME HEALTH CARE Pt information has been faxed to [facility]. Will follow upon discharge. Lindsey Concepcion Admission Associate [facility] [phone] [email or web address] * Brendan Alarcon MD - 12/22/2019 11:10 PM CDT [facility] [place] Brendan Alarcon MD Patient's Primary Care Physician: Gianluca Price MD , Name: Lian Andrade Age: [age] year old Sex: male Admission date:12/22/2019 Reason for Cardiac Evaluation CAD, history of atrial fibrillation History of Present Illness Lian Andrade is a 63 year old male has a past medical history of Atherosclerosis of coronary artery, Essential hypertension, Obesity, PONV (postoperative nausea and vomiting), Pure hypercholesterolemia, and Sleep apnea. Patient was admitted to the hospital for hip replacement. No chest pain no shortness of breath no palpitations no syncope. ROS A complete review of systems is performed. Pertinent negatives and/or positives are noted in HPI HISTORY Past Medical History: Diagnosis Date ??? Atherosclerosis of coronary artery ??? Essential hypertension ??? Obesity ??? PONV (postoperative nausea and vomiting) ??? Pure hypercholesterolemia ??? Sleep apnea Past Surgical History: Procedure Laterality Date ??? CARDIAC CATHETERIZATION, LEFT 2015 4 stents total ??? HIP ARTHROPLASTY, TOTAL Left 12/22/2019 LEFT HIP ARTHROPLASTY ??? Knee Replacement Right 2016 ??? Knee Replacement Left 2017 ??? LUMBAR SPINE FUSION 2013 No family history on file. Allergies Allergen Reactions ??? Rosuvastatin Myalgias Social History Tobacco Use ??? Smoking status: Never Smoker ??? Smokeless tobacco: Never Used Substance Use Topics ??? Alcohol use: Yes Comment: occas ??? Drug use: Not Currently EXAMINATION Filed Vitals: 12/22/19 1804 12/22/19 1825 12/22/19 2030 12/22/19 2243 BP: 103/67 141/78 125/81 Pulse: 80 54 (!) 123 103 Resp: 18 18 18 18 Temp: 97.3 ??F (36.3 ??C) 97.9 ??F (36.6 ??C) 97.9 ??F (36.6 ??C) TempSrc: Oral Oral Oral SpO2: 100% 100% 100% 100% Weight: Height: Intake/Output Summary (Last 24 hours) at 12/22/2019 2310 Last data filed at 12/22/20192030 Gross per 24 hour Intake 1750 ml Output 300 ml Net 1450 ml General appearance- NAD- conversant Eyes- anicteric ENMT Oral mucosa moist. Neck- supple Chest Clear no rales ronchi CVS Nl s1 s2 no murmurs/gallops JVD - none/No carotid bruit Abdomen Soft Nontender Bowel sounds present Extremities Edema None. No cyanosis Psych- Awake alert oriented LABS Recent Labs Component Name 10/22/19 1034 WBC 9.4 HGB 14.5 HCT 44.0 PLTCOUNT 237 Recent Labs Component Name 12/22/19 1046 10/22/19 1034 SODIUM 138 139 POTASSIUM 3.3* 3.7 BUN 18 15 CREATININE 0.77 0.79 No results for input(s): CHOL, TRIG, HDL, LDLCALC in the last 56395 hours. No results for input(s):BNP, NTPROBNP in the last 98121 hours. No results for input(s): INR in the last 56673 hours. No results for input(s): TROPONINI in the last 96818 hours. CURRENT MEDS SCHEDULED MEDICATIONS: allopurinol (ZYLOPRIM) tablet 300 mg, Oral, QDAY amLODIPine (NORVASC) tablet 5 mg, Oral, QDAY atorvastatin (LIPITOR) tablet 40 mg, Oral, QDAY carvedilol (COREG) tablet 6.25 mg, Oral, BID WC ceFAZolin (ANCEF) 2,000 mg in 50 ml IVPB, Intravenous, q8h lisinopril (PRINIVIL; ZESTRIL) tablet 10 mg, Oral, QDAY ondansetron (ZOFRAN) injection 4 mg, Intravenous, q6h polyethylene glycol 3350 (MIRALAX) packet 17 g, Oral, QDAY senna-docusate (SENOKOT-S) tablet 1 tablet, Oral, BID [COMPLETED] ceFAZolin (ANCEF) 3,000 mg in 115 mL IVPB, Intravenous, Once [COMPLETED] fentaNYL (PF) (SUBLIMAZE) injection 50 mcg, Intravenous, Once [COMPLETED] fentaNYL (PF) (SUBLIMAZE) injection 50 mcg, Intravenous, Once [COMPLETED] fentaNYL (PF) (SUBLIMAZE) injection 50 mcg, Intravenous, Once [COMPLETED] povidone-iodine (BETADINE) 5 % solution, Topical, Once [START ON 12/23/2019] 0.9% NaCl injection 3 mL, Intracatheter, q8h [START ON 12/23/2019] aspirin tablet 325 mg, Oral, BID WC [START ON 12/23/2019] celecoxib (CeleBREX) capsule 400 mg, Oral, QDAY [START ON 12/23/2019] furosemide (LASIX) tablet 20 mg, Oral, QDAY [START ON 12/23/2019] hydroCHLOROthiazide (HYDRODIURIL) tablet 25 mg, Oral, QDAY CONTINUOUS MEDICATIONS: lactated ringers infusion, Intravenous, Continuous DATA ASSESSMENT/ PLAN Status post hip replacement History of coronary artery disease status post 4 stents No chest pain. No evidence of acute coronary syndrome. Old records will be reviewed History of atrial fibrillation Patient is on Eliquis. Dyslipidemia Continue statin therapy. Thank you for allowing us to participate in the care of Lian Andrade BRENDAN ALARCON MD [facility] Pager # [phone] * Mansoor Lafleur MD - 12/22/2019 5:00 PM CDTAssociated Order(s): IP CONSULT TO HOSPITALIST Initial Hospitalist Consult Note Date of Consult: 12/22/2019 Patient's Primary Care Physician: Gianluca Price MD Physician Requesting Consult: Maryjane Segura MD Reason for Consultation: Evaluation of patient's medical problems, Name: Lian Andrade Age: [age] year old Race: Sex: male Chief Complaint/History of Present Illness Patient is , a 63 year old male, who has been admitted to [facility] Replacement center after a successful hip repalcement Patient is sleepy but able to answer questions. No complains of nausea or vomiting, chest pain or shortness of breath. No recent fevers or chills. No headache or blurred vision. No weight gain or loss. No falls, seizures or loss of consciousness . No cough with expectoration. No diplopia, tinnitus.No abdominal pain. Some pain in operated hip2/10 worse with movement. Not associated with fever Past Medical History: Diagnosis Date ??? Atherosclerosis of coronary artery ??? Essential hypertension ??? Obesity ??? PONV (postoperative nausea and vomiting) ??? Pure hypercholesterolemia ??? Sleep apnea Past Surgical History: Procedure Laterality Date ??? CARDIAC CATHETERIZATION, LEFT 2016 4 stents total ??? HIP ARTHROPLASTY, TOTAL Left 12/22/2019 LEFT HIP ARTHROPLASTY ??? Knee Replacement Right 2017 ??? Knee Replacement Left 2017 ??? LUMBAR SPINE FUSION 2014 No family history on file. mother had DM Social History Occupational History ??? Not on file Tobacco Use ??? Smoking status: Never Smoker ??? Smokeless tobacco: Never Used Substance and Sexual Activity ??? Alcohol use: Yes Comment: occas ??? Drug use: Not Currently ??? Sexual activity: Not on file Medications Prior to Admission Medication Sig Dispense Refill ??? allopurinol (ZYLOPRIM) 300 MG tablet Take 300 mg by mouth once daily ??? amLODIPine (NORVASC) 5 MG tablet Take 5 mg by mouth once daily ??? aspirin (ASPIRIN) 81 MG tablet Take 81 mg by mouth once daily ??? atorvastatin (LIPITOR) 40 MG tablet Take 40 mg by mouth once daily ??? carvedilol (COREG) 6.25 MG tablet Take 6.25 mg by mouth 2 times daily with morning and evening meal ??? clopidogrel (PLAVIX) 75 MG tablet Take 75 mg by mouth once daily ??? furosemide (LASIX) 20 MG tablet Take 20 mg by mouth once daily ??? hydroCHLOROthiazide (HYDRODIURIL) 25 MG tablet Take 25 mg by mouth once daily ??? potassium chloride ER (KLOR-CON M) 20 MEQ tablet Take 20 mEq by mouth 2 times daily ??? quinapril (ACCUPRIL) 40 MG tablet Take 40 mg by mouth once daily ??? traMADol (ULTRAM) 50 MG tablet Take 50 mg by mouth Allergies Allergen Reactions ??? Rosuvastatin Myalgias Review of Systems A 14 point review of systems was negative except as described in HPI. 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 Psychiatric: patient calm and does not appear anxious Skin: no rashes Data I have reviewed the patient's labs and the review is significant for: Recent Labs Component Name 10/22/19 1034 WBC 9.4 HGB 14.5 HCT 44.0 PLTCOUNT 237 Recent Labs Component Name 12/22/19 1046 10/22/19 1034 SODIUM 138 139 POTASSIUM 3.3* 3.7 CHLORIDE 104 104 CO2 21* 24 BUN 18 15 CREATININE 0.77 0.79 GLUCOSE 105 93 CALCIUM 10.2 9.8 Assessment and Plan Records available in chart ( paper and electronic) were reviewed. Home medications were reviewed CAD Resume cardiac meds. Holding plavix till dc HTN Resume home medications with parameters. PRN antihypertensives also ordered. Monitor BP. Hyperlipidemia Continue statin History of gout Continue allopurinol Left total hip replacement. Follow post op orders.Initiate PT per protocol DVT prophylaxis per surgeon preference Bowel regimen ordered. Treatment plan discussed with patient at bedside. All questions were answered. Orders placed in chart. CC: Gianluca Price MD, Maryjane Segura MD documented in this encounter OR Notes * Operative - Maryjane Segura MD - 12/22/2019 2:11 PM CDT [facility] OPERATIVE REPORT PATIENT: : LIAN ANDRADE MR#: [id number] ADMIT DATE: 12/22/2019 CSN: [id number] DATE OF SURGERY: 12/22/2019 : 1955 PHYSICIAN: Maryjane Segura MD [facility]OM: [facility] SURGEON: Maryjane Segura MD. PREOPERATIVE DIAGNOSIS: Degenerative joint disease of left hip. POSTOPERATIVE DIAGNOSIS: Degenerative joint disease of left hip. PROCEDURES PERFORMED: Left total hip replacement. ANESTHESIA: General. INFORMED CONSENT: Yes. TIME-OUT: Yes. ANTIBIOTICS: Yes. COMPLICATIONS: None. TXA: Yes. COMPONENTS: Biomet. PROCEDURE: The patient was brought to the operating room, placed supine on the operating table, and induced with general anesthesia, placed in lateral position, properly positioned, padded. Left hip was prepped and draped in usual sterile fashion. Time-out was performed and a 4 inch longitudinal incision was made in the lateral aspect of the left hip dissection carried down through subcutaneous tissues. Fascia was split longitudinally. Hemostasis was obtained with electrocautery. Posterior approach to hip was performed dividing external rotators and posterior capsule. Marked amount of fluid was in anterior capsule and was cultured. Hip was dislocated. Femoral head was rotated and femoral neck was cut. Femoral head was extracted. Acetabulum was exposed, cleared of soft tissue debris, reamed to 57 mm and 58 mm cementless acetabular cup was placed with a 35 mm screw and an E-poly Hi- Wall liner. Femoral canal was then exposed, reamed, and broached, and a 12 reduced proximal cementless femoral stem was placed with a +3 neck and a 36 mm ceramic head. Hip was reduced. Good fixation, stability, alignment, range of motion, leg length, and stability were obtained. Hemostasis was obtained with electrocautery. Wound was irrigated with antibiotic-containing solution and IrriSept solution. A gram of vancomycin powder was placed. Wound was in closed sequential layers using #2 Quill for the fascia, 2-0 Vicryl for subcutaneous tissues, and 4-0 Monocryl and Steri-Strips for skin. Sterile dressing was applied. Sponge and instrument counts were correct. Stable to recovery room. Maryjane Segura MD [facility] #: [id number] * Brief Op Note - Maryjane Segura MD - 12/22/2019 12:37 PM CDT Brief Op Note Procedure: LEFT HIP ARTHROPLASTY Patient Name: Lian Andrade Date of Service: 12/22/2019 Pre-Op Diagnosis: * djd Post-Op Diagnosis: djd Surgeon(s) and Role: * Maryjane Segura MD - Primary Semiconductor Engineer(s): Anesthesia Type: general ETT Complications: none Findings: djd EBL: minimal blood loss Urine Output : IV Fluid Intake: Drains: * No LDAs found * Specimen(s): Maryjane Segura MD [id number] documented in this encounter Plan of Treatment Scheduled Orders Name Type Priority Associated Diagnoses Orde r Schedule EKG 12-LEAD ECG Routine Preop examination ONCE for 1 Occurrences starting 12/23/2019 until 12/23/2019 documented as of this encounter Procedures Procedure Name Priority Date/Time Associated Diagnosis Comments CARDIAC RHYTHM STRIP ORDER 12/29/2019 3:04 PM CDT IMAGING/RADIOLOGY/ XRAY RESULTS ORDER 12/29/2019 2:51 PM CDT HGB HCT PANEL AM Draw 12/24/2019 5:40 AM CDT Primary osteoarthritis of left hip B-TYPE NATRIURETIC PEPTIDE AM Draw 12/24/2019 5:40 AM CDT EKG 12-LEAD Routine 12/23/2019 12:49 PM CDT Coronary artery disease involving [place] coronary artery of [place] heart without angina pectoris HGB HCT PANEL AM Draw 12/23/2019 2:08 AM CDT Primary osteoarthritis of left hip EKG 12-LEAD Routine 12/23/2019 12:35 AM CDT Coronary artery disease involving [place] coronary artery of [place] heart without angina pectoris CULTURE WOUND+GRAM STAIN STAT 12/22/2019 1:00 PM CDT Diagnosis unknown CULTURE ANAEROBE STAT 12/22/2019 1:00 PM CDT Diagnosis unknown TN TOTAL HIP REPLACEMENT 12/22/2019 11:57 AM CDT Special Needs BIOMET (BERTO) NOTIFIED-NB BASIC METABOLIC PANEL (CALCIUM TOTAL) STAT 12/22/2019 10:46 AM CDT Preop examination MAGNESIUM BLOOD STAT 12/22/2019 10:46 AM CDT Preop examination documented in this encounter Results * CARDIAC RHYTHM STRIP ORDER (12/29/2019 3:04 PM CDT) Narrative 12/29/2019 3:04 PM CDT Ordered by an unspecified provider. Scanned Document CARDIAC SERVICES ORD ERABLES * IMAGING RADIOLOGY XRAY RESULTS ORDER (12/29/2019 2:51 PM CDT) Anatomical Region Laterality Modality Other Narrative 12/29/2019 2:51 PM CDT Ordered by an unspecified provider. Scanned Document IMAGING * (ABNORMAL) B-TYPE NATRIURETIC PEPTIDE (12/24/2019 5:40 AM CDT) [facility] BNP 129(H) <=100 pg/mL 12/24/2019 6:33 AM CDT [facility] Blood BLOOD SPECIMEN / Unknown Venipuncture / Unknown 12/24/2019 5:40 AM CDT 12/24/2019 5:44 AM CDT Mansoor Lafleur MD LAB - CHEMISTRY [place] Performing Organization Address City/[facility]/ZIP Co de Phone Number [facility] [address] [place] [address] * (ABNORMAL) HGB HCT PANEL (12/24/2019 5:40 AM CDT) [facility] Hemoglobin 11.3(L) 12.0 - 17.6 gm/dL 12/24/2019 5:53 AM CDT [facility] Hematocrit 34.1(L) 35.2 - 51.7 % 12/24/2019 5:53 AM CDT [facility] Blood BLOOD SPECIMEN / Unknown Venipuncture / Unknown 12/24/2019 5:40 AM CDT 12/24/2019 5:44 AM CDT Maryjane Segura MD LAB - HEMATOLOGY ORD CHRIS Performing Organization Address City/[facility]/ZIP Co de Phone Number [facility] [address] [place] [address] * EKG 12-LEAD (12/23/2019 12:49 PM CDT) Ventricular Rate 118 BPM [facility] Atrial Rate 125 BPM [facility] QRS Duration ms 98 ms [facility] Q-T Interval ms 376 ms [facility] QTC Calculation (Bezet) 527 ms [facility] Calculated R Stringer 0 degrees [facility] Calculated T Stringer 2 degrees [facility] Interpretation EKG Atrial fibrillation with rapid ventricular response with premature ventricular or aberrantly conducted complexes Prolonged QT Abnormal ECG Confirmed by NAN KELLEY MD ([id number]) on 12/31/2019 9:38:07 AM [facility] 12/23/2019 12:4 9 PM CDT 12/31/2019 9:38 AM CDT Mansoor Lafleur MD ECG ORDERABLES Performing Organization Address City/[facility] Co de Phone Number [facility] * HGB HCT PANEL (12/23/2019 2:08 AM CDT) Hemoglobin 12.5 12.0 - 17.6 gm/dL 12/23/2019 3:48 AM CDT [facility] Hematocrit 38.3 35.2 - 51.7 % 12/23/2019 3:48 AM CDT [facility] Blood BLOOD SPECIMEN / Unknown Venipuncture / Unknown 12/23/2019 2:08 AM CDT 12/23/2019 3:33 AM CDT Maryjane Segura MD LAB - HEMATOLOGY ORD ERABLES Performing Organization Address City/[facility]/ZIP Co de Phone Number [facility] [address] [place] [address] * EKG 12-LEAD (12/23/2019 12:35 AM CDT) Ventricular Rate 103 BPM [facility] Atrial Rate 150 BPM [facility] QRS Duration ms 100 ms [facility] Q-T Interval ms 398 ms [facility] QTC Calculation (Bezet) 521 ms [facility] Calculated R Stringer -14 degrees [facility] Calculated T Stringer 19 degrees [facility] Interpretation EKG Atrial fibrillation with rapid ventricular response Nonspecific ST abnormality Prolonged QT Abnormal ECG When compared with ECG of 22-OCT-2019 11:56, No significant change was found Confirmed by AZRAK MD, EM ([id number]) on 12/23/2019 8:43:50 AM [facility]USE 12/23/2019 12:3 5 AM CDT 12/23/2019 8:43 AM CDT Brendan Alarcon MD ECG ORDERABLES Performing Organization Address [facility] Co de Phone Number [facility] * CULTURE WOUND+GRAM STAIN (12/22/2019 1:00 PM CDT) Culture No growth MARCELLO 12/25/2019 6:48 AM CDT [facility] Gram Stain Heavy Red blood cells 12/25/2019 6:48 AM CDT [facility] Gram Stain No organisms seen 12/25/2019 6:48 AM CDT [facility] Microbiology ENTIRE HIP REGION / Unknown 12/22/2019 1:00 PM CDT 12/22/2019 1:53 PM CDT Narrative [facility] - 12/25/2019 6:48 AM CDT Surgical Description: Swab Left Hip Maryjane Segura MD LAB - MICROBIOLOGY O AYAKA Performing Organization Address [facility] Phone Number [facility] [address] [place] [address], [facility] [phone] * CULTURE ANAEROBE (12/22/2019 1:00 PM CDT) Culture No anaerobic organisms isolated MARCELLO 2019 7:08 AM CDT [facility] Microbiology ENTIRE HIP REGION / Unknown 12/22/2019 1:00 PM CDT 12/22/2019 1:53 PM CDT Narrative [facility] - 2019 7:08 AM CDT Surgical Description: Swab Left Hip aMryjane Segura MD LAB - MICROBIOLOGY O AYAKA Performing Organization Address [facility]/ZIP Co de Phone Number [facility] [address] [place] [address], [facility] [phone] * MAGNESIUM BLOOD (12/22/2019 10:46 AM CDT) Magnesium 1.7 1.6 - 2.6 mg/dL 12/22/2019 11:15 AM CDT [facility] Blood BLOOD SPECIMEN / Unknown Venipuncture / Unknown 12/22/2019 10:46 AM CDT 12/22/2019 10:54 AM CDT Vicenta Morejon DO LAB - CHEMISTRY [place] [facility] [address] [place] [address] * (ABNORMAL) BASIC METABOLIC PANEL (CALCIUM TOTAL) (12/22/2019 10:46 AM CDT) Pathologist [facility] Glucose 105 70 - 105 mg/dL 12/22/2019 11:15 AM CDT [facility] Sodium 138 136 - 145 mmol/L 12/22/2019 11:15 AM CDT [facility] Potassium 3.3(L) 3.5 - 5.1 mmol/L 12/22/2019 11:15 AM CDT [facility] Chloride 104 98 - 107 mmol/L 12/22/2019 11:15 AM CDT [facility] CO2 21(L) 23 - 31 mmol/L 12/22/2019 11:15 AM CDT [facility] Calcium 10.2 8.4 - 10.4 mg/dL 12/22/2019 11:15 AM CDT [facility] Anion Gap 13 8 - 16 mmol/L 12/22/2019 11:15 AM CDT [facility] BUN 18 8.4 - 25.7 mg/dL 12/22/2019 11:15 AM CDT [facility] Creatinine 0.77 0.72 - 1.25 mg/dL 12/22/2019 11:15 AM CDT [facility] eGFR by MDRD >60 >60 mL/min/1.7 3m2 12/22/2019 11:15 AM CDT [facility] eGFR by MDRD >60 >60 mL/min/1.7 3m2 12/22/2019 11:15 AM CDT [facility] Blood BLOOD SPECIMEN / Unknown Venipuncture / Unknown 12/22/2019 10:46 AM CDT 12/22/2019 10:54 AM CDT Vicenta Morejon DO LAB - CHEMISTRY [place] [facility] [address] [place] [address] documented in this encounter Visit Diagnoses Diagnosis Preop examination- Primary Preoperative examination, unspecified Diagnosis unknown Other unknown and unspecified cause of morbidity or mortality Primary osteoarthritis of left hip Primary localized osteoarthrosis, pelvic region and thigh Coronary artery disease involving [place] coronary artery of [place] heart without angina pectoris Primary osteoarthritis of left hip Primary localized osteoarthrosis, pelvic region and thigh documented in this encounter Administered Medications Inactive Administered Medications - up to 3 most recent administrations Medication Order MAR Action Action Date Dose Rate Site 0.9% NaCl infusion at 100 mL/hr, Intravenous, CONTINUOUS, Starting on Sat12/23/19 at 1330, Until Sat12/23/19 at 2329 $ New Bag/Syringe 12/23/2019 2:15 PM CDT 100 mL/hr 0.9% NaCl injection 3 mL 3 mL, Intracatheter, EVERY 8 HOURS, First dose on Sat12/23/19 at 0600, Until Discontinued, Post-op $ Given 12/25/2019 5:09 AM CDT 3 mL $ Given 12/24/2019 7:36 PM CDT 3 mL $ Given 12/24/2019 5:50 PM CDT 3 mL 0.9% NaCl IV Bolus 500 mL, at 247.93 mL/hr, Administer over 121 Minutes, 4 TIMES DAILY PRN, if BP is less than 90 mmHg Systolic, Starting on Sat12/22/19 at 1632, Until Sat12/25/19 at 1652 $ New Bag/Syringe 12/23/2019 12:06 PM CDT 500 mL 247.93 mL/hr acetaminophen (TYLENOL) tablet 1,000 mg 1,000 mg, Oral, PRE-OP ONCE, 1 dose, On Sat12/22/19 at 0830, For patients >50 Kg. Not for bariatric or cardiac patients., Pre-op $ Given 12/22/2019 10:46 AM CDT 1,000 mg acetaminophen (TYLENOL) tablet 650 mg 650 mg, Oral, EVERY 4 HOURS PRN, Fever, Mild Pain, Starting on Sat12/22/19 at 1545, Until Sat12/25/19 at 1652, For temperature greater [id number] [id number] F or for mild pain., Post-op $ Given 12/23/2019 9:35 AM CDT 650 mg allopurinol (ZYLOPRIM) tablet 300 mg 300 mg, Oral, DAILY, First dose on Sat12/22/19 at 1700, Until Discontinued $ Given 12/25/2019 9:57 AM CDT 300 mg $ Given 12/24/2019 8:52 AM CDT 300 mg $ Given 12/23/2019 12:03 PM CDT 300 mg delivzop-tbrpzctun-gknyytfnxxa (MAALOX;MYLANTA) suspension 15 mL 15 mL, Oral, EVERY 6 HOURS PRN, Heartburn, use if TUMS unable to control symptoms of if patient has difficulty swallowing TUMS, Starting on Sat12/22/19 at 1632, Until Sat12/25/19 at 1652, Shake well before using. amLODIPine (NORVASC) tablet 5 mg 5 mg, Oral, DAILY, First dose on Sat12/22/19 at 1700, Until Discontinued, Hold dose if Blood pressure is less than 120mm Hg systolic $ Given 12/24/2019 1:3 8 PM CDT 5 mg $ Given 12/22/2019 5:47 PM CDT 5 mg apixaban (ELIQUIS) tablet 5 mg 5 mg, Oral, 2 TIMES DAILY, First dose on Sat12/23/19 at 2100, Until Discontinued $ Given 12/25/2019 9:58 AM CDT 5 mg $ Given 12/24/2019 7:31 PM CDT 5 mg $ Given 12/24/2019 8:52 AM CDT 5 mg aspirin tablet 325 mg 325 mg, Oral, 2 TIMES DAILY WITH MEALS, 730 doses, First dose on Sat12/23/19 at 0800, Last dose on Sat12/21/20 at 1800, VTE Prophylaxis, post-op Hip, Post-op $ Given 12/23/2019 5:45 PM CDT 325 mg atorvastatin (LIPITOR) tablet 40 mg 40 mg, Oral, DAILY, First dose on Sat12/22/19 at 1700, Until Discontinued $ Given 12/25/2019 9:58 AM CDT 40 mg $ Given 12/24/2019 8:52 AM CDT 40 mg $ Given 12/23/2019 9:12 AM CDT 40 mg bisacodyl (DULCOLAX) suppository 10 mg 10 mg, Rectal, DAILY PRN, Constipation, Starting on Sat12/22/19 at 1545, Until Sat12/25/19 at 1652, Not to be given night of surgery. Use MOM first. If MOM ineffective then use bisacodyl. If bisacodyl ineffective use Fleets enema. Use rectal if oral is ineffective, or patient is unable to take oral medications., Post-op bisacodyl EC (DULCOLAX) tablet 5 mg 5 mg, Oral, DAILY PRN, Constipation, Starting on Sat12/22/19 at 1545, Until Sat12/25/19 at 1652, Not to be given night of surgery. Use MOM first. If MOM ineffective then use bisacodyl. If bisacodyl ineffective use Fleets enema., Post-op calcium carbonate (TUMS) chew tablet 1 tablet 1 tablet, Oral, PRN, Heartburn, Starting on Sat12/22/19 at 1632, Until Sat12/25/19 at 1652 carvedilol (COREG) tablet 6.25 mg 6.25 mg, Oral, 2 TIMES DAILY WITH MEALS, First dose on Sat12/22/19 at 1800, Until Discontinued, Take with food .Hold dose if BP is less than 110 systolic or heart rate is less than 60 bpm. $ Given 12/25/2019 9:56 AM CDT 6.25 mg $ Given 12/24/2019 5:49 PM CDT 6.25 mg $ Given 12/24/2019 8:52 AM CDT 6.25 mg ceFAZolin (ANCEF) 2,000 mg in 50 ml IVPB 2,000 mg (2 g), at 100 mL/hr, Intravenous, EVERY 8 HOURS, 2 doses, First dose on Sat12/22/19 at 1800, Last dose on Sat12/23/19 at 0200, Give first dose 6 hours after last dose in surgery. Last dose to be completed within 24 hours of close of incision., Indication for anti-infective therapy: Surgical prophylaxis, Post-op $ New Bag/Syringe 12/23/2019 1:45 AM CDT 2,000 mg 100 mL/hr $ New Bag/Syringe 12/22/2019 5:48 PM CDT 2,000 mg 100 mL /hr celecoxib (CeleBREX) capsule 400 mg 400 mg, Oral, PRE-OP ONCE, 1 dose, On Sat12/22/19 at 0830, Pre-op $ Given 12/22/2019 10:46 AM CDT 400 mg celecoxib (CeleBREX) capsule 400 mg 400 mg, Oral, DAILY, First dose on Sat12/23/19 at 0900, Until Discontinued, Post-op $ Given 12/25/2019 9:57 AM CDT 400 mg $ Given 12/24/2019 8:52 AM CDT 400 mg $ Given 12/23/2019 9:12 AM CDT 400 mg diphenhydrAMINE (BENADRYL) capsule 25 mg 25 mg, Oral, EVERY 8 HOURS PRN, Itching, Starting on Sat12/22/19 at 1545, Until Sat12/25/19 at 1652, Post-op diphenhydrAMINE (BENADRYL) capsule 50 mg 50 mg, Oral, EVERY 8 HOURS PRN, Itching, Starting on Sat12/22/19 at 1545, Until Sat12/25/19 at 1652, May give 50 mg if 25 mg is ineffective., Post-op famotidine (PEPCID) tablet 20 mg 20 mg, Oral, 2 TIMES DAILY PRN, Heartburn, Starting on Sat12/22/19 at 1545, Until Sat12/25/19 at 1652, Post-op fentaNYL (PF) (SUBLIMAZE) injection 50 mcg 50 mcg, Intravenous, ONCE, 1 dose, On Sat12/22/19 at 1130, Pre-op $ Given 12/22/2019 11:16 AM CDT 50 mcg fentaNYL (PF) (SUBLIMAZE) injection 50 mcg 50 mcg, Intravenous, ONCE, 1 dose, On Sat12/22/19 at 1130, Pre-op $ Given 12/22/2019 11:24 AM CDT 50 mcg fentaNYL (PF) (SUBLIMAZE) injection 50 mcg 50 mcg, Intravenous, ONCE, 1 dose, On Sat12/22/19 at 1145, Pre-op $ Given 12/22/2019 11:44 AM CDT 50 mcg fluticasone propionate (FLONASE) nasal spray 1 spray 1 spray, Each Nostril, DAILY PRN, nasal congestion, Starting on Sat12/22/19 at 1632, Until Sat12/25/19 at 1652, Shake gently before use. furosemide (LASIX) tablet 20 mg 20 mg, Oral, DAILY, First dose on Sat12/23/19 at 0900, Until Discontinued, Hold dose if Blood pressure is less than 120mm Hg systolic $ Given 12/24/2019 8:52 AM CDT 20 mg guaiFENesin (ROBITUSSIN) solution 10 mL 10 mL, Oral, EVERY 6 HOURS PRN, Cough, Starting on Sat12/22/19 at 1632, Until Sat12/25/19 at 1652 hydroCHLOROthiazide (HYDRODIURIL) tablet 25 mg 25 mg, Oral, DAILY, First dose on Sat12/23/19 at 0900, Until Discontinued, Hold dose if Blood pressure is less than 120mm Hg systolic $ Given 12/24/2019 8:52 AM CDT 25 mg HYDROcodone-acetaminophen (NORCO) 10-325 MG tablet 1 tablet 1 tablet, Oral, EVERY 4 HOURS PRN, Severe Pain, Starting on Sat12/22/19 at 1545, Until Sat12/25/19 at 1652, Post-op $ Given 12/24/2019 5:49 PM CDT 1 tablet HYDROcodone-acetaminophen (NORCO) 5-325 MG tablet 1 tablet 1 tablet, Oral, EVERY 4 HOURS PRN, Moderate Pain, or for pain prior to painful procedures/therapy, Starting on Sat12/22/19 at 1545, Until Sat12/25/19 at 1652, Post-op $ Given 12/25/2019 9:57 AM CDT 1 tablet $ Given 12/25/2019 5:07 AM CDT 1 tablet $ Given 12/24/2019 9:33 PM CDT 1 tablet HYDROmorphone (DILAUDID) injection 0.5 mg 0.5 mg, Intravenous, EVERY 10 MIN PRN, Severe Pain, 4 doses, Starting on Sat12/22/19 at 1400, Until Sat12/22/19 at 1515, Maximum total of 4 doses If patient reaches max total dose, please consult anesthesiologist prior to further administration of pain meds. Hold pain meds if there are signs of hypoventilation., PACU $ Given 12/22/2019 3:15 PM CDT 0.5 mg $ Given 12/22/2019 2:45 PM CDT 0.5 mg $ Given 12/22/2019 2:30 PM CDT 0.5 mg ketorolac (TORADOL) injection 15 mg 15 mg, Intravenous, EVERY 6 HOURS PRN, Moderate Pain, Starting on Sat12/22/19 at 1545, Until Sat12/23/19 at 1544, Post-op $ Given 12/23/2019 4:26 AM CDT 15 mg $ Given 12/22/2019 9:49 PM CDT 15 mg lactated ringers infusion at 20 mL/hr, Intravenous, PRE-OP CONTINUOUS, Starting on Sat12/22/19 at 0830, Until Sat12/22/19 at 1545, Pre-op $ New Bag/Syringe 12/22/2019 1:26 PM CDT $ New Bag/Syringe 12/22/2019 10:46 AM CDT 20 mL /hr lactated ringers infusion at 100 mL/hr, Intravenous, CONTINUOUS, Starting on Sat12/22/19 at 1415, Until Sat12/25/19 at 1652, Post-op $ New Bag/Syringe 12/22/2019 7:44 PM CDT 1 00 mL/hr $ New Bag/Syringe 12/22/2019 3:50 PM CDT 100 mL /hr lidocaine buffered 1 % injection 0.5 mL 0.5 mL, Infiltration, PRE-OP ONCE, 1 dose, On Sat12/22/19 at 0830, May be used (0.5 ml locally to anesthetize prior to insertion). For patients not allergic to local anesthetics., Pre-op $ Given 12/22/2019 10:46 AM CDT 0.5 mL lisinopril (PRINIVIL; ZESTRIL) tablet 10 mg 10 mg, Oral, DAILY, First dose on Sat12/22/19 at 1715, Until Discontinued, Hold dose if Blood pressure is less than 120mm Hg systolic $ Given 12/24/2019 5:49 PM CDT 10 mg $ Given 12/22/2019 5:46 PM CDT 10 mg magnesium hydroxide (MILK OF MAGNESIA) suspension 30 mL 30 mL, Oral, PRN, Constipation, Starting on Sat12/22/19 at 1545, Until Sat12/25/19 at 1652, Use MOM first. If MOM ineffective then use bisacodyl. If bisacodyl ineffective use Fleets enema. Shake well before using., Post-op $ Given 12/24/2019 7:36 PM CDT 30 mL metoclopramide (REGLAN) injection 5 mg 5 mg, Intravenous, EVERY 6 HOURS PRN, Nausea/Vomiting, Starting on Sat12/22/19 at 1632, Until Sat12/25/19 at 1652, Try reglan if zofran is unable to control nausea. morphine 1 mg/ml PEST CONTROL OPERATOR PEST CONTROL OPERATOR Dose: 1 mg, PEST CONTROL OPERATOR Lockout Interval: 12 Minutes, One Hour Limit\Max Limit: 6 mg, Clinician Bolus (Load): Not Ordered, Intravenous, PEST CONTROL OPERATOR, Starting on Sat12/22/19 at 1415, Until Sat12/25/19 at 1652, PEST CONTROL OPERATOR Pump Therapy: Normal Risk (PEST CONTROL OPERATOR only) Contact physician if respiratory rate falls below 10/minute. If respiratory rate < 7/min administer naloxone (Narcan) 0.2 mg IV STAT, begin oxygen at 4-10 LPM, STOP PEST CONTROL OPERATOR immediately, and contact physician., Post-op $ New Bag/Syringe 12/22/2019 2:22 PM CDT naloxone (NARCAN) injection 0.2 mg 0.2 mg, Intravenous, PRN, Other, respiratoryrate less than 7, Starting on Sat12/22/19 at 1545, Until Sat12/25/19 at 1652, If respiratory rate < 7/min administer naloxone (Narcan) 0.2 mg IV STAT, Post-op nitroGLYCERIN (NITRO-BID) 2 % ointment 1 inch 1 inch, Topical, 3 TIMES DAILY PRN, HTN, Starting on Sat12/22/19 at 1632, Until Sat12/25/19 at 1652, If blood pressure more than 160mmHg systolic or 100mmHg diastolic ondansetron (ZOFRAN) injection 4 mg 4 mg, Intravenous, EVERY 6 HOURS, 3 doses, First dose on Sat12/22/19 at 1930, Last dose on Sat12/23/19 at 0730, Administer over 2 to 5 minutes., Post-op $ Given 12/23/2019 1:44 AM CDT 4 mg $ Given 12/22/2019 7:34 PM CDT 4 mg ondansetron (ZOFRAN) injection 4 mg 4 mg, Intravenous, EVERY 6 HOURS PRN, Nausea/Vomiting, Starting on Sat12/23/19 at 1330, Until Sat12/25/19 at 1652, May repeat x1 if no relief for total of 8 mg., Post-op oxyCODONE CR 12hr (OxyCONTIN) tablet 20 mg 20 mg, Oral, PRE-OP ONCE, 1 dose, On Sat12/22/19 at 0830, Do not crush, chew, or cut in half., Pre-op $ Given 12/22/2019 10:46 AM CDT 20 mg polyethylene glycol 3350 (MIRALAX) packet 17 g 17 g, Oral, DAILY, First dose on Sat12/22/19 at 1645, Until Discontinued, Mix in 8 ounces of water, juice, soda, coffee or tea prior to administration $ Given 12/25/2019 9:56 AM CDT 17 g $ Given 12/24/2019 8:56 AM CDT 17 g $ Given 12/23/2019 9:11 AM CDT 17 g potassium chloride ER (KLOR-CON M) tablet 20 mEq 20 mEq, Oral, 2 TIMES DAILY, First dose on Sat12/25/19 at 0930, Until Discontinued, Do not crush or chew. $ Given 12/25/2019 9:58 AM CDT 20 mEq povidone-iodine (BETADINE) 5 % solution Topical, ONCE, 1 dose, On Sat12/22/19 at 1100, Pre-op $ Given 12/22/2019 10:45 AM CDT prochlorperazine (COMPAZINE) injection 10 mg 10 mg, Intravenous, ONCE PRN, Nausea/Vomiting, 1 dose, Starting on Sat12/22/19 at 1400, Until Sat12/22/19 at 1415, Second choice, use if first choice was ineffective., PACU $ Given 12/22/2019 2:15 PM CDT 10 mg senna-docusate (SENOKOT-S) tablet 1 tablet 1 tablet, Oral, 2 TIMES DAILY, First dose on Sat12/22/19 at 2100, Until Discontinued, Post-op $ Given 12/25/2019 9:56 AM CDT 1 tablet $ Given 12/24/2019 7:31 PM CDT 1 tablet $ Given 12/24/2019 8:52 AM CDT 1 tablet sodium phosphate rectal (FLEET) enema 133 mL 133 mL (1 enema), Rectal, PRN, Constipation, Starting on Sat12/22/19 at 1545, Until Sat12/25/19 at 1652, Use MOM first. If MOM ineffective then use bisacodyl. If bisacodyl ineffective use Fleets enema., Post-op spironolactone (ALDACTONE) tablet 25 mg 25 mg, Oral, DAILY, First dose on Sat12/25/19 at 0930, Until Discontinued $ Given 12/25/2019 9:57 AM CDT 25 mg throat lozenge 1 lozenge 1 lozenge, Oral, EVERY 2 HOURS PRN, Sore Throat, Starting on Sat12/23/19 at 1314, Until Sat12/25/19 at 1652 $ Given 12/23/2019 1:29 PM CDT 1 lozenge trimethobenzamide (TIGAN) injection 200 mg 200 mg, Intramuscular, EVERY 6 HOURS PRN, Nausea/Vomiting, Starting on Sat12/22/19 at 1632, Until Sat12/25/19 at 1652, IM use only; do not administer IV Use Tigan if zofran and reglan unable to control nausea. zolpidem (AMBIEN) tablet 5 mg 5 mg, Oral, AT BEDTIME PRN, Insomnia, Starting on Sat12/23/19 at 0000, Until Sat12/25/19 at 1652, Not to be given the night of surgery, Post-op $ Given 12/25/2019 1:36 AM CDT 5 mg documented in this encounter Active and Recently Administered Medications Times are shown in CDT. Scheduled Medication Order 12/23/2019 12/24/2019 12/25/2019 0.9% NaCl injection 3 mL 3 mL, Intracatheter, EVERY 8 HOURS, First dose on Sat12/23/19 at 0600, Until Discontinued, Post-op 0426 ($ Given - Provider: Blaine Riley RN)1415 (Not Administered - Provider: Maddi Em RN - Reason: IV Currently Infusing)2141 (Not Administered - Provider: Mari Zavala, SURJIT - Reason: Loss of Access) 0522 ($ Given - Provider: Mari Zavala RN)1750 ($ Given - Provider: Theresa Lees RN)1935 ($ Given - Provider: Mari Zavala RN)215 (Not Administered - Provider: Mari Zavala RN - Reason: See Comments - Comment: given at 1935) 0509 ($ Given - Provider: Mari Zavala RN)1400 (Due) allopurinol (ZYLOPRIM) tablet 300 mg 300 mg, Oral, DAILY, First dose on Sat12/22/19 at 1700, Until Discontinued 1203 ($ Given - Provider: Maddi Em RN) 0852 ($ Given - Provider: Cindi Pressley RN) 0957 ($ Given - Provider: Kiersten Castro RN) amLODIPine (NORVASC) tablet 5 mg 5 mg, Oral, DAILY, First dose on Sat12/22/19 at 1700, Until Discontinued, Hold dose if Blood pressure is less than 120mm Hg systolic 0912 (Not Administered - Provider: Maddi Em RN - Reason: Per Administration Instructions) 1338 ($ Given - Provider: Cindi Pressley RN) 0957 (Not Administered - Provider: Kiersten Castro RN - Reason: Per Administration Instructions) apixaban (ELIQUIS) tablet 5 mg 5 mg, Oral, 2 TIMES DAILY, First dose on Sat12/23/19 at 2100, Until Discontinued 214 ($ Given - Provider: Mari Zavala RN) 0852 ($ Given - Provider: Cindi Pressley RN)193 ($ Given - Provider: Mari Zavala RN) 0958 ($ Given - Provider: Kiersten Castro RN) aspirin tablet 325 mg (CANCELED) 325 mg, Oral, 2 TIMES DAILY WITH MEALS, 730 doses, First dose on Sat12/23/19 at 0800, Last dose on Sat12/21/20 at 1800, VTE Prophylaxis, post-op Hip, Post-op 0933 (Not Administered - Provider: Maddi Em RN - Reason: Refused-Patient)1745 ($ Given - Provider: Maddi Em RN) atorvastatin (LIPITOR) tablet 40 mg 40 mg, Oral, DAILY, First dose on Sat12/22/19 at 1700, Until Discontinued 0912 ($ Given - Provider: Maddi Em RN) 0852 ($ Given - Provider: Cindi Pressley, RN) 0958 ($ Given - Provider: Kiersten Castro, RN) carvedilol (COREG) tablet 6.25 mg 6.25 mg, Oral, 2 TIMES DAILY WITH MEALS, First dose on Sat12/22/19 at 1800, Until Discontinued, Take with food .Hold dose if BP is less than 110 systolic or heart rate is less than 60 bpm. 0912 (Not Administered - Provider: Maddi Em RN - Reason: Per Administration Instructions)1400 ($ Given - Provider: Maddi Em RN - Comment: wants given to slow HR)1745 ($ Given - Provider: Maddi Em RN) 0852 ($ Given - Provider: Cindi Pressley RN)1749 ($ Given - Provider: Theresa Lees RN) 0956 ($ Given - Provider: Kiersten Castro, SURJIT) ceFAZolin (ANCEF) 2,000 mg in 50 ml IVPB (COMPLETED) 2,000 mg (2 g), at 100 mL/hr, Intravenous, EVERY 8 HOURS, 2 doses, First dose on Sat12/22/19 at 1800, Last dose on Sat12/23/19 at 0200, Give first dose 6 hours after last dose in surgery. Last dose to be completed within 24 hours of close of incision., Indication for anti-infective therapy: Surgical prophylaxis, Post-op 0145 ($ New Bag/Syringe - Provider: Blaine Riley RN)0232 (Stopped - Provider: Blaine Riley RN) celecoxib (CeleBREX) capsule 400 mg 400 mg, Oral, DAILY, First dose on Sat12/23/19 at 0900, Until Discontinued, Post-op 0912 ($ Given - Provider: Maddi Em RN) 0852 ($ Given - Provider: Cindi Pressley RN) 0957 ($ Given - Provider: Kiersten Castro, SURJIT) furosemide (LASIX) tablet 20 mg 20 mg, Oral, DAILY, First dose on Sat12/23/19 at 0900, Until Discontinued, Hold dose if Blood pressure is less than 120mm Hg systolic 0912 (Not Administered - Provider: Maddi Em RN - Reason: Per Administration Instructions) 0852 ($ Given - Provider: Cindi Pressley RN) 0957 (Not Administered - Provider: Kiersten Castro RN - Reason: Per Administration Instructions) hydroCHLOROthiazide (HYDRODIURIL) tablet 25 mg 25 mg, Oral, DAILY, First dose on Sat12/23/19 at 0900, Until Discontinued, Hold dose if Blood pressure is less than 120mm Hg systolic 0912 (Not Administered - Provider: Maddi Em RN - Reason: Per Administration Instructions) 0852 ($ Given - Provider: Cindi Pressley RN) 0957 (Not Administered - Provider: Kiersten Castro RN - Reason: Per Administration Instructions) lisinopril (PRINIVIL; ZESTRIL) tablet 10 mg 10 mg, Oral, DAILY, First dose on Sat12/22/19 at 1715, Until Discontinued, Hold dose if Blood pressure is less than 120mm Hg systolic 0912 (Not Administered - Provider: Maddi Em RN - Reason: Per Administration Instructions) 1749 ($ Given - Provider: Theresa Lees RN) 0956 (Not Administered - Provider: Kiersten Castro RN - Reason: Per Administration Instructions) ondansetron (ZOFRAN) injection 4 mg ()(Linked Group 1) 4 mg, Intravenous, EVERY 6 HOURS, 3 doses, First dose on Sat12/22/19 at 1930, Last dose on Sat12/23/19 at 0730, Administer over 2 to 5 minutes., Post-op 0144 ($ Given - Provider: Blaine Riley RN)0913 (Not Administered - Provider: Maddi Em RN - Reason: Refused-Patient) polyethylene glycol 3350 (MIRALAX) packet 17 g 17 g, Oral, DAILY, First dose on Sat12/22/19 at 1645, Until Discontinued, Mix in 8 ounces of water, juice, soda, coffee or tea prior to administration 0911 ($ Given - Provider: Maddi Em RN) 0856 ($ Given - Provider: Cindi Pressley RN) 0956 ($ Given - Provider: Kiersten Castro, SURJIT) potassium chloride ER (KLOR-CON M) tablet 20 mEq 20 mEq, Oral, 2 TIMES DAILY, First dose on Sat12/25/19 at 0930, Until Discontinued, Do not crush or chew. 0958 ($ Given - Provider: Kiersten Castro, SURJIT) senna-docusate (SENOKOT-S) tablet 1 tablet 1 tablet, Oral, 2 TIMES DAILY, First dose on Sat12/22/19 at 2100, Until Discontinued, Post-op 0912 ($ Given - Provider: Maddi Em, SURJIT)2140 ($ Given - Provider: Mari Zavala, SURJIT) 0852 ($ Given - Provider: Cindi Pressley, SURJIT)1931 ($ Given - Provider: Mari Zavala, SURJIT) 0956 ($ Given - Provider: Kiersten Castro RN) spironolactone (ALDACTONE) tablet 25 mg 25 mg, Oral, DAILY, First dose on Sat12/25/19 at 0930, Until Discontinued 0957 ($ Given - Provider: Kiersten Castro RN) Continuous Medication Order 12/23/2019 12/24/2019 12/25/2019 0.9% NaCl infusion () at 100 mL/hr, Intravenous, CONTINUOUS, Starting on Sat12/23/19 at 1330, Until Sat12/23/19 at 2329 1415 ($ New Bag/Syringe - Provider: Maddi Em RN) lactated ringers infusion at 100 mL/hr, Intravenous, CONTINUOUS, Starting on Sat12/22/19 at 1415, Until Sat12/25/19 at 1652, Post-op morphine 1 mg/ml PEST CONTROL OPERATOR PEST CONTROL OPERATOR Dose: 1 mg, PEST CONTROL OPERATOR Lockout Interval: 12 Minutes, One Hour Limit\Max Limit: 6 mg, Clinician Bolus (Load): Not Ordered, Intravenous, PEST CONTROL OPERATOR, Starting on Sat12/22/19 at 1415, Until Sat12/25/19 at 1652, PEST CONTROL OPERATOR Pump Therapy: Normal Risk (PEST CONTROL OPERATOR only) Contact physician if respiratory rate falls below 10/minute. If respiratory rate < 7/min administer naloxone (Narcan) 0.2 mg IV STAT, begin oxygen at 4-10 LPM, STOP PEST CONTROL OPERATOR immediately, and contact physician., Post-op PRN Medication Order 12/23/2019 12/24/2019 12/25/2019 0.9% NaCl IV Bolus 500 mL, at 247.93 mL/hr, Administer over 121 Minutes, 4 TIMES DAILY PRN, if BP is less than 90 mmHg Systolic, Starting on Sat12/22/19 at 1632, Until Sat12/25/19 at 1652 1206 ($ New Bag/Syringe - Provider: Maddi Em, RN)1411 (Stopped - Provider: Maddi Em RN) acetaminophen (TYLENOL) tablet 650 mg 650 mg, Oral, EVERY 4 HOURS PRN, Fever, Mild Pain, Starting on Sat12/22/19 at 1545, Until Sat12/25/19 at 1652, For temperature greater [id number] [id number] F or for mild pain., Post-op 0935 ($ Given - Provider: Maddi Em RN) uesiwsob-fpvlrmfcn-ivaaad icone (MAALOX;MYLANTA) suspension 15 mL 15 mL, Oral, EVERY 6 HOURS PRN, Heartburn, use if TUMS unable to control symptoms of if patient has difficulty swallowing TUMS, Starting on Sat12/22/19 at 1632, Until Sat12/25/19 at 1652, Shake well before using. bisacodyl (DULCOLAX) suppository 10 mg(Linked Group 2) 10 mg, Rectal, DAILY PRN, Constipation, Starting on Sat12/22/19 at 1545, Until Sat12/25/19 at 1652, Not to be given night of surgery. Use MOM first. If MOM ineffective then use bisacodyl. If bisacodyl ineffective use Fleets enema. Use rectal if oral is ineffective, or patient is unable to take oral medications., Post-op 1935 (See Alternative - Provider: Mari Zavala RN) bisacodyl EC (DULCOLAX) tablet 5 mg(Linked Group 2) 5 mg, Oral, DAILY PRN, Constipation, Starting on Sat12/22/19 at 1545, Until Sat12/25/19 at 1652, Not to be given night of surgery. Use MOM first. If MOM ineffective then use bisacodyl. If bisacodyl ineffective use Fleets enema., Post-op 1935 (See Alternative - Provider: Mari Zavala RN) calcium carbonate (TUMS) chew tablet 1 tablet 1 tablet, Oral, PRN, Heartburn, Starting on Sat12/22/19 at 1632, Until Sat12/25/19 at 1652 diphenhydrAMINE (BENADRYL) capsule 25 mg(Linked Group 3) 25 mg, Oral, EVERY 8 HOURS PRN, Itching, Starting on Sat12/22/19 at 1545, Until Sat12/25/19 at 1652, Post-op diphenhydrAMINE (BENADRYL) capsule 50 mg(Linked Group 3) 50 mg, Oral, EVERY 8 HOURS PRN, Itching, Starting on Sat12/22/19 at 1545, Until Sat12/25/19 at 1652, May give 50 mg if 25 mg is ineffective., Post-op famotidine (PEPCID) tablet 20 mg 20 mg, Oral, 2 TIMES DAILY PRN, Heartburn, Starting on Sat12/22/19 at 1545, Until Sat12/25/19 at 1652, Post-op fluticasone propionate (FLONASE) nasal spray 1 spray 1 spray, Each Nostril, DAILY PRN, nasal congestion, Starting on Sat12/22/19 at 1632, Until Sat12/25/19 at 1652, Shake gently before use. guaiFENesin (ROBITUSSIN) solution 10 mL 10 mL, Oral, EVERY 6 HOURS PRN, Cough, Starting on Sat12/22/19 at 1632, Until Sat12/25/19 at 1652 HYDROcodone-acetaminophen (NORCO) 10-325 MG tablet 1 tablet 1 tablet, Oral, EVERY 4 HOURS PRN, Severe Pain, Starting on Sat12/22/19 at 1545, Until Sat12/25/19 at 1652, Post-op 1749 ($ Given - Provider: Theresa Lees RN) HYDROcodone-acetaminophen (NORCO) 5-325 MG tablet 1 tablet 1 tablet, Oral, EVERY 4 HOURS PRN, Moderate Pain, or for pain prior to painful procedures/therapy, Starting on Sat12/22/19 at 1545, Until Sat12/25/19 at 1652, Post-op 0426 ($ Given - Provider: Blaine Riley RN)0913 (Not Administered - Provider: Maddi Em RN - Reason: See Comments - Comment: BP 98/62)1744 ($ Given - Provider: Maddi Em, SURJIT)2144 ($ Given - Provider: Mari Zavala, SURJIT) 0156 ($ Given - Provider: Mari Zavala RN)0532 ($ Given - Provider: Mari Zavala RN)1055 ($ Given - Provider: Cindi Pressley RN)2133 ($ Given - Provider: Mari Zavala, SURJIT) 0507 ($ Given - Provider: Mari Zavala RN)0957 ($ Given - Provider: Kiersten Castro RN) ketorolac (TORADOL) injection 15 mg () 15 mg, Intravenous, EVERY 6 HOURS PRN, Moderate Pain, Starting on Sat12/22/19 at 1545, Until Sat12/23/19 at 1544, Post-op 0426 ($ Given - Provider: Blaine Riley RN) magnesium hydroxide (MILK OF MAGNESIA) suspension 30 mL(Linked Group 2) 30 mL, Oral, PRN, Constipation, Starting on Sat12/22/19 at 1545, Until Sat12/25/19 at 1652, Use MOM first. If MOM ineffective then use bisacodyl. If bisacodyl ineffective use Fleets enema. Shake well before using., Post-op 1936 ($ Given - Provider: Mari Zavala RN) metoclopramide (REGLAN) injection 5 mg 5 mg, Intravenous, EVERY 6 HOURS PRN, Nausea/Vomiting, Starting on Sat12/22/19 at 1632, Until Sat12/25/19 at 1652, Try reglan if zofran is unable to control nausea. naloxone (NARCAN) injection 0.2 mg 0.2 mg, Intravenous, PRN, Other, respiratoryrate less than 7, Starting on Sat12/22/19 at 1545, Until Sat12/25/19 at 1652, If respiratory rate < 7/min administer naloxone (Narcan) 0.2 mg IV STAT, Post-op nitroGLYCERIN (NITRO-BID) 2 % ointment 1 inch 1 inch, Topical, 3 TIMES DAILY PRN, HTN, Starting on Sat12/22/19 at 1632, Until Sat12/25/19 at 1652, If blood pressure more than 160mmHg systolic or 100mmHg diastolic ondansetron (ZOFRAN) injection 4 mg(Linked Group 1) 4 mg, Intravenous, EVERY 6 HOURS PRN, Nausea/Vomiting, Starting on Sat12/23/19 at 1330, Until Sat12/25/19 at 1652, May repeat x1 if no relief for total of 8 mg., Post-op sodium phosphate rectal (FLEET) enema 133 mL(Linked Group 2) 133 mL (1 enema), Rectal, PRN, Constipation, Starting on Sat12/22/19 at 1545, Until Sat12/25/19 at 1652, Use MOM first. If MOM ineffective then use bisacodyl. If bisacodyl ineffective use Fleets enema., Post-op 1936 (See Alternative - Provider: Mari Zavala, SURJIT) throat lozenge 1 lozenge 1 lozenge, Oral, EVERY 2 HOURS PRN, Sore Throat, Starting on Sat12/23/19 at 1314, Until Sat12/25/19 at 1652 1329 ($ Given - Provider: Maddi Em RN) trimethobenzamide (TIGAN) injection 200 mg 200 mg, Intramuscular, EVERY 6 HOURS PRN, Nausea/Vomiting, Starting on Sat12/22/19 at 1632, Until Sat12/25/19 at 1652, IM use only; do not administer IV Use Tigan if zofran and reglan unable to control nausea. zolpidem (AMBIEN) tablet 5 mg 5 mg, Oral, AT BEDTIME PRN, Insomnia, Starting on Sat12/23/19 at 0000, Until Sat12/25/19 at 1652, Not to be given the night of surgery, Post-op 0136 ($ Given - Provider: Mari Zavala, SURJIT) Linked Groups Order Group 1: ondansetron (ZOFRAN) injection 4 mg ()Jump to med 4 mg, Intravenous, EVERY 6 HOURS, 3 doses, First dose on Sat12/22/19 at 1930, Last dose on Sat12/23/19 at 0730, Administer over 2 to 5 minutes., Post-op Followed by ondansetron (ZOFRAN) injection 4 mgJump to med 4 mg, Intravenous, EVERY 6 HOURS PRN, Nausea/Vomiting, Starting on Sat12/23/19 at 1330, Until Sat12/25/19 at 1652, May repeat x1 if no relief for total of 8 mg., Post-op Group 2: magnesium hydroxide (MILK OF MAGNESIA) suspension 30 mLJump to med 30 mL, Oral, PRN, Constipation, Starting on Tu12/22/19 at 1545, Until Sat12/25/19 at 1652, Use MOM first. If MOM ineffective then use bisacodyl. If bisacodyl ineffective use Fleets enema. Shake well before using., Post-op Or bisacodyl EC (DULCOLAX) tablet 5 mgJump to med 5 mg, Oral, DAILY PRN, Constipation, Starting on Sat12/22/19 at 1545, Until Sat12/25/19 at 1652, Not to be given night of surgery. Use MOM first. If MOM ineffective then use bisacodyl. If bisacodyl ineffective use Fleets enema., Post-op Or bisacodyl (DULCOLAX) suppository 10 mgJump to med 10 mg, Rectal, DAILY PRN, Constipation, Starting on Sat12/22/19 at 1545, Until Sat12/25/19 at 1652, Not to be given night of surgery. Use MOM first. If MOM ineffective then use bisacodyl. If bisacodyl ineffective use Fleets enema. Use rectal if oral is ineffective, or patient is unable to take oral medications., Post-op Or sodium phosphate rectal (FLEET) enema 133 mLJump to med 133 mL (1 enema), Rectal, PRN, Constipation, Starting on Sat12/22/19 at 1545, Until Sat12/25/19 at 1652, Use MOM first. If MOM ineffective then use bisacodyl. If bisacodyl ineffective use Fleets enema., Post-op Group 3: diphenhydrAMINE (BENADRYL) capsule 25 mgJump to med 25 mg, Oral, EVERY 8 HOURS PRN, Itching, Starting on Sat12/22/19 at 1545, Until Sat12/25/19 at 1652, Post-op Or diphenhydrAMINE (BENADRYL) capsule 50 mgJump to med 50 mg, Oral, EVERY 8 HOURS PRN, Itching, Starting on Sat12/22/19 at 1545, Until Sat12/25/19 at 1652, May give 50 mg if 25 mg is ineffective., Post-op documented in this encounter
--- OUTSIDE RECORDS SUMMARY | 2024-10-05 02:44 | XMS_ITS | Encounter Summary ---
Author Organization [facility] Address [address] [place] [address] Care Team Providers Care Balloon Tester Name Role Phone Unavailable Primary Care Provider Unavailabl e Reason for Visit * Auth/Cert Specialty Diagnoses / Procedures Referred By Contac t Referred To Contact Procedures ARTHROPLASTY TOTAL HIP Referral ID Status Reason Start Date Expiration Date Visits Re quested Visits Authorized [id number] 1 Encounter Details Date Type Department Care Team (Late st Contact Info) Description 12/22/2019 12:07 PM CDT Anesthesia Event [facility] - Perioperative Surgery [address] [place] [address] [place] [address] [place] [address] Kj Herrmann, DO [address] [facility] [address] [place] [address] Anesthesia Record Procedure Summary Procedure Name Responsible Anesthesiologist Anesthesia Start Time Anesthesia Stop Time LEFT HIP ARTHROPLASTY (Left: Hip) Fredo Will MD 12/22/19 1207 12/22/19 1354 Events Date Time Event Comment 12/22/2019 1140 1207 An Start 1207 An Start Data 1214 PT Reassessment 1214 An Induction 1217 An Intubation 1236 Timeout Anesthesia part icipated in timeout at the time documented in the record by nursing. 1237 Incision 1334 An Emergence 1344 Extubation 1344 Electnc Sig 1344 an stop data 1344 ANPTO2 1354 An Stop Meds Name Total midazolam 2 mg/2mL injection 2 mg fentaNYL 100 mcg/2mL injection 200 mcg propofol 200 mg/20mL injection 50 mg rocuronium 50 mg/5mL injection 50 mg ondansetron 4 mg/2mL injection 4 mg phenylephrine 100 mcg/mL solution 200 mc g dexamethasone 4 mg/mL injection 4 mg ceFAZolin (ANCEF) 3,000 mg in 115 mL IVP B 3 g etomidate 20 mg/10mL injection 20 mg sugammadex 200 mg/2mL injection 200 mg lactated ringers infusion 1,000 mL * Agents Name Exp. Sevoflurane Exp. N2O O2 Air Insp. Sevoflurane * Blood No blood administrations on file. Lines, Drains, and Airways Type Details Placement Removal Peripheral IV Date: 12/22/19; Time : 1102; Orientation: Left; Placed By: melissa carbajal rn; Length (in): 1 14in; Tolerance: Well 12/22/19 1102 by Franca Canada RN 12/23/190 by Mari Zavala RN ETT Date: 12/22/19; Time : 1235; Placed By: CRYS Jacobo; Vent: easy with oral airway mask; Induction: Standard IV; Blade Type: Claudio; Blade Size: 4; Laryngoscopy View: Grade 1 (full cords); Intubation Adjuncts: Stylet; Tube: Endotracheal Tube; Placement: Oral; Tube Type: Cuffed-inflated; Tube Size(mm): 8 MM; Depth of Insertion: 22 CM; Measured From: teeth; Attempts: 1; Cuff Infated: Air; Cuff Vol(mL): 8 mL; Verified By: Direct visualization, Bilateral breath sounds, CO2 Monitor 12/22/19 1235 by Pasquale Coronado APRN-CRNA 12/22/19 1344 by Pasquale Coronado APRN-CRNA Procedural Site (Incision) 12/22/19; 1340; Left; Hip; 12/25/19; 215112/22/19 1340 by Fabiana Webb RN 12/25/192151 by Generic, Auto Release documented in this encounter Social [...] or have serious hearing difficult y? No 12/22/2019 Is person blind or have serious difficulty seein g? No 12/22/2019 Does person have serious dif ficulty walking/climbing stairs? No 12/22/2019 Does person have difficulty dressing/bathing? No 12/22/2019 Does person have difficulty doing errands alone? No 12/22/2019 Cognitive Status Response Date of Assessm ent Does person have difficulty concentrating/remembering/making decisions? No 12/22/2019 documented as of this encounter Progress Notes * Pasquale Coronado, FEEDER CATCHER TOBACCO-SCANNING SUPERVISOR - 12/22/2019 1:54 PM CDT ANESTHESIA POSTOP EVALUATION NOTE Procedure: LEFT HIP ARTHROPLASTY (Left Hip) Du Anderson is a 63 year old male Patient Vitals for the past 6 hrs: BP Temp Pulse Resp SpO2 Pain Rating Score #1 Pain Scale/Observation 12/22/19 1109 -- -- -- -- -- 9 N 12/22/19 1134 115/89 98.3 ??F (36.8 ??C) 97 20 98 % 9 N Anesthesia Type: general ETT * No Diagnosis Codes entered * Mental Status: awake, alert, oriented, sufficiently recovered from acute administration of anesthesia to participate in the evaluation, neurologic status has returned to preoperative level and neurologic status has returned to expected level of consciousness Neuro Status: No numbness, tingling or visual disturbances Respiratory Function: natural and requires O2 Cardiac Function: stable Postop Pain: acceptable to the patient Postop Hydration: adequate Postop Nausea: none Assessment: no apparent anesthetic complications, patient tolerated procedure well and no evidence of recall Patient Disposition: Release from Anesthesia Care Non Reportable Improvement Section (otherwise blank): * Vicenta Morejon DO - 12/22/2019 11:43 AM CDT ANESTHESIA PREOPERATIVE EVALUATION NOTE Procedure: LEFT HIP ARTHROPLASTY NPO status: Since Midnight;*Except Oral meds with H2O (12/22/2019 11:20 AM) Vitals: Patient Vitals for the past 6 hrs: BP Temp Pulse Resp SpO2 Pain Rating Score #1 12/22/19 1134 115/89 98.3 ??F (36.8 ??C) 97 20 98 % 9 12/22/19 1109 -- -- -- -- -- 9 ANESTHESIA PRE-EVALUATION NOTE Physical Exam: Orientation X3 (pt has left eye droop.) Airway/Mallampati Score: I Mouth Opening Distance: 3 fingerwidths Neck ROM: full Teeth: normal Heart: regular rate rhythm Lungs: normal Abdomen Exam: obese ANESTHESIA PLAN ASA Score: 3 NPO Status: No solids since midnight and No liquids within 2 hours Planned Induction: intravenous Planned Adjuncts: art line Planned Postop Destination: PACU Anesthetic plan was discussed with: patient Anesthetic Plan discussion was: Consented Overall additional findings/comments: Patient has hx of afib 25-40% ef. He was cleared by his male infertility specialist Dr. Mitchell. He has had a recent cath as well. Pt today is in afib, with a rate of about 107, bp 115/89. I spoke with his male infertility specialist, to be sure Mr Anderson was optimized despite the afib, he stated Mr. Anderson is still optimized but requested that we consult cardiology for inpatient care as well. Consult entered for Dr. Cruz. Dr. Mitchell requests Dr. Cruz keep him in the loop. . BMI, Height, Weight Tobacco History Estimated body mass index is 36.52 kg/m?? as calculated from the following: Height as of this encounter: 1.956 m (6' 5 ). Weight as of this encounter: 139.7 kg (308 lb). Social History Tobacco Use Smoking Status Never Smoker Smokeless Tobacco Never Used Alcohol History Drug History Social History Substance and Sexual Activity Alcohol Use Yes Comment: occas Social History Substance and Sexual Activity Drug Use Not Currently Outpatient Medications: Inpatient Medications: No outpatient medications have been marked as taking for the 12/22/19 encounter (Hospital Encounter). Current Facility-Administered Medications Medication Dose Last Dose ??? ceFAZolin 3 g ??? lactated ringers Allergies: Allergies Allergen Reactions ??? Rosuvastatin Myalgias Relevant Problems No relevant active problems Problem List: There are no active problems to display for this patient. Medical History: Past Medical History: Diagnosis Date ??? Atherosclerosis of coronary artery ??? Essential hypertension ??? Obesity ??? PONV (postoperative nausea and vomiting) ??? Pure hypercholesterolemia ??? Sleep apnea Surgical History: Past Surgical History: Procedure Laterality Date ??? CARDIAC CATHETERIZATION, LEFT 2016 4 stents total ??? Knee Replacement Right 2017 ??? Knee Replacement Left 2018 ??? LUMBAR SPINE FUSION 2013 Lab Results: Recent Labs Component Name 10/22/19 1034 WBC 9.4 RBC 4.73 HCT 44.0 HGB 14.5 PLTCOUNT 237 MCV 93.0 MCH 30.7 MCHC 33.0 MPV 11.1 Recent Labs Component Name 12/22/19 1046 SODIUM 138 POTASSIUM 3.3* CALCIUM 10.2 CHLORIDE 104 CO2 21* GLUCOSE 105 BUN 18 CREATININE 0.77 Recent Labs Component Name 12/22/19 1046 MAGNESIUM 1.7 Invalid input(s): PREGTESTUR Recent Labs Component Name 12/22/19 1046 10/22/19 1034 ALT - 27 AST - 19 ALKPHOS - 113 ANIONGAP 13 11 EGFR >60 >60 ALBUMIN - 4.3 documented in this encounter Procedure Notes * Pasquale Coronado APRN-CRNA - 12/22/2019 12:35 PM CDTAssociated Order(s): ETT Placement Endotracheal Tube Placement: Patient Location: OR. Procedure: intubation (31144). Procedure Section: Sedation: under general anesthesia. Indications for Airway Management: anesthesia Procedure pretreatments used? Nursing documentation on the [facility] Procedure Pretreatments (manual): 100% O2 Induction: standard IV Patient Position: sniffing Mask Ventilation: easy with oral airway. Blade Type: Claudio Blade Size: 4 Laryngoscopy View: grade 1 (full cords) Intubation Adjuncts: stylet Tube: endotracheal tube Placement: oral Tube type: cuff - inflated Tube Size (MM): 8 Depth of Insertion (CM): 22 Measured From: teeth Cuff volume (mL): 8 Cuff Inflated With: air Number of Attempts: 1. Placement Verified By: direct visualization, bilateral breath sounds and CO2 monitor Tube secured with: adhesive tape. Difficult Airway? No. Staff Section Anesthesia Provider: Pasquale Coronado APRN-CRNA, Performed the procedure documented in this encounter Miscellaneous Notes * Anesthesia Transfer of Care - Pasquale Coronado, CRYS - 12/22/2019 1:54 PM CDT ANESTHESIA TRANSFER OF CARE NOTE Today's Date: 12/22/2019 Date of : 1955 Patient: Du Anderson Procedure(s): LEFT HIP ARTHROPLASTY Surgeon(s): Primary: Maryjane Segura MD Preop Diagnosis: * No Diagnosis Codes entered * Pre-op Meds (From admission, onward) Start Stop Status Route Frequency Ordered 12/22/19 0830 acetaminophen (TYLENOL) tablet 1,000 mg 12/21 1046 Completed PO PRE-OP ONCE 12/22/19 0821 12/22/19 0830 ceFAZolin (ANCEF) 3,000 mg in 115 mL IVPB 12/21 1207 Completed IV ONCE 12/22/19 0821 12/22/19 0830 celecoxib (CeleBREX) capsule 400 mg 12/21 1046 Completed PO PRE-OP ONCE 12/22/19 0821 12/22/19 1130 fentaNYL (PF) (SUBLIMAZE) injection 50 mcg 12/21 1116 Completed IV ONCE 12/22/19 1115 12/22/19 1130 fentaNYL (PF) (SUBLIMAZE) injection 50 mcg 12/21 1124 Completed IV ONCE 12/22/19 1123 12/22/19 1145 fentaNYL (PF) (SUBLIMAZE) injection 50 mcg 12/21 1144 Completed IV ONCE 12/22/19 1143 12/22/19 0830 lactated ringers infusion 12/21 0829 Dispensed IV PRE-OP CONTINUOUS 12/22/19 0821 12/22/19 0830 lidocaine buffered 1 % injection 0.5 mL 12/21 1046 Completed INFILTRATION PRE-OP ONCE 12/22/19 0821 12/22/19 0830 oxyCODONE CR 12hr (OxyCONTIN) tablet 20 mg 12/21 1046 Completed PO PRE-OP ONCE 12/22/19 0821 12/22/19 1100 povidone-iodine (BETADINE) 5 % solution 12/21 1045 Completed TP ONCE 12/22/19 1045 * No Diagnosis Codes entered * . Allergies Allergen Reactions ??? Rosuvastatin Myalgias Vitals: Patient Vitals for the past 3 hrs: BP Temp Pulse Resp SpO2 Pain Rating Score #1 12/22/19 1134 115/89 98.3 ??F (36.8 ??C) 97 20 98 % 9 12/22/19 1109 -- -- -- -- -- 9 Lines, Drains, and Airways Type Details Placement Removal Peripheral IV Date: 12/22/19; Time: 1102; Orientation: Left; Location: Wrist; Placed By: melissa carbajal rn; Length (in): 1 14in; Gauge: 18 Gauge; Locals: Trans Dermal; Tolerance: Well 12/22/19 1102 by Franca Canada RN ETT Date: 12/22/19; Time: 1235; Placed By: CRYS Jacobo; Vent: easy with oral airway mask; Induction: Standard IV; Blade Type: Claudio; Blade Size: 4; Laryngoscopy View: Grade 1 (full cords); Intubation Adjuncts: Stylet; Tube: Endotracheal Tube; Placement: Oral; Tube Type: Cuffed-inflated; Tube Size(mm): 8 MM; Depth of Insertion: 22 CM; Measured From: teeth; Attempts: 1; Cuff Infated: Air; Cuff Vol(mL): 8 mL; Verified By: Direct visualization, Bilateral breath sounds, CO2 Monitor 12/22/19 1235 by Pasquale Coronado APRN-CRNA 12/22/19 1344 by Pasquale Coronado APRN-CRNA Intraprocedure I/O Totals lactated ringers infusion Volume infused 1000 ml Patient Transfer Location: PACU Transport Airway: supplemental O2 and spontaneous respirations Complications: None Handoff Given? Yes Checklist or Protocol - The [place] handoff elements that must be included in [...] of report from the receiving PACUteam. CRYS Jacobo documented in this encounter Plan of Treatment Not on file documented as of this encounter Procedures Procedure Name Priority Date/Time Associated Diagnosis Comments ENDOTRACHEAL TUBE NOTE Routine 12/22/2019 12:35 PM CDT documented in this encounter Results * ETT LINE PERFORMABLE (12/22/2019 12:35 PM CDT) Narrative Pasquale Coronado APRN-CRNA - 12/22/2019 12:35 PM CDT Pasquale Coronado APRN-CRNA ? 12/22/2019 12:35 PM Endotracheal Tube Placement: ? Patient Location: OR. Procedure: intubation ([id number]). Procedure Section: ?? Sedation: under general anesthesia. [...] ??No. Staff Section ?? Anesthesia Provider: Pasquale Coronado APRN-CRNA, Performed the procedure Fredo Will MD GENERAL ANESTHESIA O RDERABLES documented in this encounter Visit Diagnoses Not on filedocumented in this encounter Administered Medications Inactive Administered Medications - up to 3 most recent administrations Medication Order MAR Action Action Date Dose Rate Site ceFAZolin (ANCEF) 3,000 mg in 115 mL IVPB 3,000 mg (3 g), at 230 mL/hr, Intravenous, ONCE, 1 dose, On Sat12/22/19 at 0830, Administer 30 minutes prior to surgical incision. May repeat dose in 3 hours if surgical incision is not yet closed. Refrigerate, Indication for anti-infective therapy: Surgical prophylaxis, Pre-op $ Given 12/22/2019 12:07 PM CDT 3 g dexamethasone (DECADRON) injection PRN, Starting on Sat12/22/19 at 1238, Until Sat12/22/19 at 1354, Anesthesia Intra-op $ Given 12/22/2019 12:38 PM CDT 4 mg etomidate (AMIDATE) injection PRN, Starting on Sat12/22/19 at 1214, Until Sat12/22/19 at 1354, Anesthesia Intra-op $ Given 12/22/2019 12:14 PM CDT 20 mg fentaNYL (PF) (SUBLIMAZE) injection PRN, Starting on Sat12/22/19 at 1213, Until Sat12/22/19 at 1354, Anesthesia Intra-op $ Given 12/22/2019 1:30 PM CDT 50 mcg $ Given 12/22/2019 12:36 PM CDT 50 mcg $ Given 12/22/2019 12:13 PM CDT 100 mcg lactated ringers infusion at 20 mL/hr, Intravenous, PRE-OP CONTINUOUS, Starting on Sat12/22/19 at 0830, Until Sat12/22/19 at 1545, Pre-op $ New Bag/Syringe 12/22/2019 1:26 PM CDT $ New Bag/Syringe 12/22/2019 10:46 AM CDT 20 mL /hr midazolam (VERSED) injection PRN, Starting on Sat12/22/19 at 1207, Until Sat12/22/19 at 1354, Anesthesia Intra-op $ Given 12/22/2019 12:07 PM CDT 2 mg ondansetron (ZOFRAN) injection PRN, Starting on Sat12/22/19 at 1324, Until Sat12/22/19 at 1354, Anesthesia Intra-op $ Given 12/22/2019 1:24 PM CDT 4 mg phenylephrine 100 mcg/mL injection PRN, Starting on Sat12/22/19 at 1333, Until Sat12/22/19 at 1354, Anesthesia Intra-op $ Given 12/22/2019 1:33 PM CDT 200 mcg propofol (DIPRIVAN) injection PRN, Starting on Sat12/22/19 at 1214, Until Sat12/22/19 at 1354, Anesthesia Intra-op $ Given 12/22/2019 12:14 PM CDT 50 mg rocuronium (ZEMURON) injection PRN, Starting on Sat12/22/19 at 1214, Until Sat12/22/19 at 1354, Anesthesia Intra-op $ Given 12/22/2019 12:14 PM CDT 50 mg sugammadex (BRIDION) injection PRN, Starting on Sat12/22/19 at 1330, Until Sat12/22/19 at 1354, Anesthesia Intra-op $ Given 12/22/2019 1:30 PM CDT 200 mg documented in this encounter
--- OUTSIDE RECORDS SUMMARY | 2024-10-05 02:44 | XMS_ITS | Clinical Summary ---
Author Organization [facility] [employer] Address [address] [place] [address] Care Team Providers Care Manager Investigations Name Role Phone Gianluca Price MD Primary Care Provider [phone] Source Comments [facility] [employer],non-owned Affiliates and Associated Physician Practices is amultiple site organization consisting of ambulatory clinics and hospital sitesin [place], [place], [place] and [place]. This disclosure is being madepursuant to the Care Everywhere program and may not contain all information available regarding this patient. Last updated 18.[facility] [employer] Allergies Active Allergy Reactions Criticality Noted Date [...] Comments Blood Pressure 149/93 09/16/2021 7:19 AM PRESSER MACHINE Pulse 89 09/16/2021 7:19 AM PRESSER MACHINE Temperature 36.3 ??C (97.3 ??F) 09/16/2021 7:19 AM CS T Respiratory Rate 17 09/16/2021 7:19 AM PRESSER MACHINE Oxygen Saturation 99% 09/16/2021 7:19 AM PRESSER MACHINE Inhaled Oxygen Concentration - - Weight 159.6 kg (351 lb 12.8 oz) 09/13/2021 7:45 AM PRESSER MACHINE Height 195.6 cm (6' 5 ) 09/13/2021 7:45 AM PRESSER MACHINE Body Mass Index 41.72 09/13/2021 7:45 AM PRESSER MACHINE Plan of Treatment Health Maintenance Due Date Last Done Comments COLOGUARD (AGES 45-75) - COLON CA SCREENING 1955 COLON MONITORING 1955 COLONOSCOPY - COLON CA SCREENING 1955 CT COLONOGRAPHY - COLON CA SCREENING 1955 Colorectal Cancer Screening 1955 FIT - COLON CA SCREENING 1955 FLEX SIG - COLON CA SCREENING 1955 HEPATITIS C SCREENING 12/23/1973 DTAP/TDAP/TD VACCINES (1 - Tdap) 12/27/1974 ZOSTER VACCINE (1 of 2) 12/27/2005 Respiratory Syncytial Virus (RSV) Vaccine Pt: or over 60 yrs (1 - Risk 60-74 years 1-dose series) 2015 PNEUMOCOCCAL VACCINE 65+ (1 of 1 - PCV) 12/27/2020 DEPRESSION SCREENING 10/07/2023 MEDICARE AWV ? CALENDAR YEAR 2023 COVID-19 VACCINE ( season) 2024 08/02/2021, 12/08/2020 INFLUENZA VACCINE (#1) 2024 , 06/28/2021, 06/27/2020, Additional history exists HEPATITIS B VACCINE Aged Out No longe r eligible based on patient's age to complete this topic HIB VACCINE Aged Out No longer eligi ble based on patient's age to complete this topic HPV VACCINE Aged Out No longer eligi ble based on patient's age to complete this topic MENINGOCOCCAL VACCINE Aged Out No wyatt lynnette eligible based on patient's age to complete this topic Medical Devices Implanted Type Area Fruit Cutter Device Identifier Shelf Expiration Date Model / Serial / Lot Screw 6.5mm 35mm Dome Hip Actb Canc Implanted:Qty: 1 on 12/22/2019 by Maryjane Segura MD at [facility] Left: Hip [employer] 09/14/2026 [id number] / / [id number] Shell Actb 58mm Hip Lmt Hl Rnglc+ Implanted:Qty: 1 on 12/22/2019 by Maryjane Segura MD at [facility] Left: Hip [employer] 08/08/2029 [id number] / / [id number] Acetabular Liner E1 Antioxidant Infused 36mm Head Size Liner Size 25 Implanted:Qty: 1 on 12/22/2019 by Maryjane Segura MD at [facility] Left: Hip [employer] 09/12/2023 [id number] / / [id number] Standard Femoral Stemsize 12 X 140mm Implanted:Qty: 1 on 12/22/2019 by Maryjane Segura MD at [facility] Left: Hip [employer] 07/31/2029 [id number] / / [id number] Head Fem 36mm Hip Blx D Optn G7 Implanted:Qty: 1 on 12/22/2019 by Maryjane Segura MD at [facility] Left: Hip [employer] 08/28/2028 [id number] / / [id number] Slv Centering G7 +3mm Ofst Tpr Hip Ti Ty Implanted:Qty: 1 on 12/22/2019 by Maryjane Segura MD at [facility] Left: Hip [employer] 09/23/2028 [id number] / / [id number] Head Fem 36mm Hip Blx D Optn G7 Implanted:Qty: 1 on 09/13/2021 by Maryjane Segura MD at [facility] Right: Hip [employer] 01/10/2031 [id number] / / [id number] Slv Centering G7 Std Ofst Tpr Hip Ti Ty Implanted:Qty: 1 on 09/13/2021 by Maryjane Segura MD at [facility] Right: Hip [employer] 03/16/2031 [id number] / / [id number] Stem Fem 11mm 135mm Hip 135d Std Ofst Implanted:Qty: 1 on 09/13/2021 by Maryjane Segrua MD at [facility] Right: Hip [employer] 03/10/2031 [id number] / / [id number] Self Tapping Bone Screw 6.5 X35mm Implanted:Qty: 1 on 09/13/2021 by Maryjane Segura MD at [facility] Right: Hip 06/20/2031 / / [id number] High Wall Loaner Implanted:Qty: 1 on 09/13/2021 by Maryjane Segura MD at [facility] Right: Hip 05/20/2026 [id number] / / [id number] Shell Actb 54mm Hip Lmt Hl Clr Cd Pps G7 Implanted:Qty: 1 on 09/13/2021 by Maryjane Segura MD at [facility] Right: Hip [employer] 05/19/2031 [id number] / / [id number] Advance Directives * Full Code (Latest Code Status on File) Date Activated Date Inactivated Comments 09/13/2021 2:02 PM 09/16/2021 1:57 PM * Full Code Date Activated Date Inactivated Comments 12/22/2019 3:46 PM 12/25/2019 4:57 PM Care Teams Manager Investigations Relationship Specialty Start Date End Date Gianluca Price MD [address] [place] [address] [address] [place] [id number] PCP - General Internal Medicine 08/29/21
--- OUTSIDE RECORDS SUMMARY | 2024-10-05 02:44 | XMS_ITS | Encounter Summary ---
Author Organization [facility] Address [address] [place] [address] Care Team Providers Care Hose Seamer Name Role Phone Unavailable Primary Care Provider Unavailabl e Reason for Visit * Auth/Cert Specialty Diagnoses / Procedures Referred By Contac t Referred To Contact Procedures ARTHROPLASTY TOTAL HIP Referral ID Status Reason Start Date Expiration Date Visits Re quested Visits Authorized [id number] 1 1 Encounter Details Date Type Department Care Team (Late st Contact Info) Description 12/22/2019 12:00 PM CDT - 12/22/2019 1:57 PM CDT Surgery [facility] - Perioperative Surgery [address] [place] [address] [place] [id number] [facility] [address] [place] [id number] LEFT HIP ARTHROPLASTY Surgery Details Date/Time Status Location OR Service Patient Class Case Class Case Type Trauma Case? 12/22/2019 12:00 PM Posted [facility] MAIN OR OR 16 Orthopedics Surgery Day Care Over Night Elective > 5 days Panel 1 Procedure LRB Anes Op Region Wound Class Comments LEFT HIP ARTHROPLASTY Left General Hip Clean Surgeon Surgeon Role Service Panel Maryjane Chowdhury [...] Sign Reading Time Taken Comments Blood Pressure 125/93 12/22/2019 1:50 PM CDT Pulse 119 12/22/2019 1:50 PM CDT Temperature 36.2 ??C (97.2 ??F) 12/22/2019 1:50 PM CD T Respiratory Rate 16 12/22/2019 1:50 PM CDT Oxygen Saturation 100% 12/22/2019 1:50 PM CDT Inhaled Oxygen Concentration - - [...] Discharge Summaries * Maryjane Chowdhury MD - 12/25/2019 3:07 PM CDT Dc summary Dc home regular diet Full wb Pain meds- norco Elaquis Dx djd right hip Procedure right total hip complications none Condition improved office fu 3 weeks elsa documented in this encounter Medications at Time [...] A&O x4. Approved for discharge by Dr. Chowdhury, Dr. Lafleur and Dr. Alarcon. IV and [...] Alarcon MD - 12/25/2019 3:07 PM CDT [facility] [place] Brendan Alarcon MD Patient's Primary Care Physician: [...] CHOL, TRIG, HDL, LDLCALC in the last 33879 hours. Recent Labs Component Name 12/24/19 0540 BNP 129* No results for input(s): INR in the last 15600 hours. No results for input(s): TROPONINI in the last 65296 hours. ASSESSMENT/ PLAN Status post hip replacement [...] the anterolateral wall. Recent cardiac catheterization revealed [id number] 3 vessel disease of the RCA, LAD [...] care of Lian Andrade BRENDAN ALARCON MD [facility] Pager # [phone] * Susanne Baltazar RN - 12/25/2019 11:51 AM CDT Progressing with therapy. Plan remains to discharge home with [facility]. Spouse to provide transportationat discharge. Will continue to follow for discharge needs. Susanne Baltazar RN, BSN Interactive Video Technician [phone] * Josselyn Louise, PT - 12/25/2019 11:02 AM CDT Physical Therapy Treatment Summary Chart review completed. Nursing consented for PT. Explained purpose of PT and patient consented to participate in therapy. Sp L post ELLIOT SUBJECTIVE: Patient sitting up in chair. Declines supine exercises or instr in supine<> sit- states he has been using leg director of promotions and also his will be able to [...] (pt declined- states he is using leg director of promotions ) Sit to Supine: Moderate Assistance;Requires Verbal Cues for Technique;Requires Verbal Cues for Safety(instr in use of leg director of promotions.using side rails) Transfers: Sit to Stand: Modified [place] Stand to Sit: Modified [place] Mobility: Distance Ambulated: 70 FEET(x2) Ambulation: Assistive Device: Gait Belt;Walker-2 Wheeled Ambulation: Level of Assistance: Modified [place];Requires Verbal Cues for Technique;Requires Verbal Cues for [...] details. RECOMMENDATIONS/PLAN: Patient planning DC home with [facility] Josselyn Louise, PT x * Mansoor Lafleur [...] CAD Resume cardiac meds. resume plavix at mi Resumed eliquis ?? HTN Resumed home medications with parameters. PRN antihypertensives also ordered BP in acceptable range ?? Hyperlipidemia Continue statin ?? History of gout Continue allopurinol History of a fib In A fib with RVR at times On coreg computer security manager following Mild expected anemia of acute blood [...] Tasks (clinical observation and judgement): Feeding: Complete [place] Oral Facial Hygiene: Stand By Assist Bathing: [...] assist. Remains tachy/ afib on tele. Paged computer security manager exchange to discuss rate control, waiting for [...] 1 hour of taking norco. * Maryjane Chowdhury MD - 12/24/2019 4:43 PM CDT orto [...] demonstrates to patient- patient is DC in SUV. Ambulation: Patient ambulated 70 feet x 2 [...] safetywith gait and transfers. Continue PT per POC Josselyn Louise, PT 12/24/2019 * Mansoor Lafleur MD - 12/24/2019 12:16 PM CDT Admit Date: 12/22/2019 9:57 AM Hospital Day: 2 Reason for visit/follow up: Joint replacement New Symptoms Patient has no new symptoms Data Vitals: 12/23/19 1925 12/23/19 2141 12/24/19 0308 12/24/19 0710 BP: 137/79 117/67 113/67 149/83 Pulse: (!) 134 (!) 114 109 99 Resp: Temp: 98.1 ??F (36.7 ??C) 98.6 ??F [...] In A fib with RVR On coreg computer security manager following Mild expected anemia of acute blood loss. Noted and asymptomatic. ?? Left total hip replacement. Following post op orders. PT per protocol DVT prophylaxis: back on Eliquis Bowel regimen ordered. ?? * Rosetta Blanchard, OT - 12/24/2019 11:45 AM CDT Occupational [...] Tasks (clinical observation and judgement): Feeding: Complete [place] Oral Facial Hygiene: Minimal Assistance Bathing: Moderate [...] Orientation Level: Oriented X4 Precautions: L posterior ELLIOT. WBAT Bed Mobility: Sit to Supine: Moderate Assistance;Requires Verbal Cues for Technique;Requires Verbal Cues for Safety(instr in use of leg director of promotions.using side rails) Transfers: Sit to Stand: Minimal [...] with supine- sit with use of leg director of promotions. Patient presentswith flexed posture, L Le weakness, [...] details. RECOMMENDATIONS/PLAN: Patient planning DC home with [facility] Josselyn Louise, PT x * Mari Zavala [...] contact guard assist and gait belt. On classroom monitor. * Brendan Alarcon MD - 12/23/2019 9:06 PM CDT [facility] [place] Brendan Alarcon MD Patient's Primary Care Physician: [...] CHOL, TRIG, HDL, LDLCALC in the last 62222 hours. No results for input(s):BNP, NTPROBNP in the last 91544 hours. No results for input(s): INR in the last 23315 hours. No results for input(s): TROPONINI in the last 66791 hours. CURRENT MEDS SCHEDULED MEDICATIONS: 0.9% NaCl [...] staged manner with multiple CRISTHIAN stents in 2015, atrial fibrillation s/pTEE/CV 11-05-19. WILMER showed Mod-severe MR and Moderate TR Stress test showed-stress test revealed Evidence of moderate size and - severe ischemia in the basal- and mid-segment of the anterior wall extending into the anterolateral wall. Recent cardiac catheterization revealed [id number]-bv-[id number] 3 vessel disease of the RCA, LAD [...] care of Lian Andrade BRENDAN ALARCON MD [facility] Pager # [phone] * Maddi Em RN - 12/23/2019 8:12 PM CDT A/O X 4 BP was low most of AM; Dr Lafleur made aware and 500cc bolus of NS given and started on NS at 100/hr. BP came up in afternoon. Because of low BP, tylenol given in AM and then in afternoon when BP higher [place] 5 given. [place] dsg to L posterior hip is cdi this afternoon; it was changed on NOC shift last night. Voiding without difficulties. Pt on telemetry and stays in A Fib most of time. Pt is asymptomatic. Cardiology notified of consultyesterday and call placed to office early today. Brine Purifier came by this afternoon but have not received any new orders as of the end of this shift. * Maddi Em RN - 12/23/2019 8:12 PM CDT Problem: Fall Risk Goal: Fall risk and fall related injury risk are minimized Outcome: Ongoing Flowsheets (Taken 12/23/2019 0909) Rosenthal Andrea Fall Risk Total: 12 [place] Fall Risk Precaution Interventions: Call light/belongings in [...] Felix RPH - 12/23/2019 5:23 PM CDT [facility] Pharmacy Services Admission Medication Review Lian Andrade [...] arthroplasty. Plan is to discharge home with [facility]. Patient lives with his spouse in a 1 story home with no steps to enter. Spouse will provide transportation at discharge. Patient has a 2 Wheeled walker for home use. Will have [facility] at discharge. Patient declined offer to contact family/caregiver to discuss discharge plans. Basic Needs Assessment (BNA) Score: 7 Complex Needs Assessment (COIL FORMER) Score: Social Support Domain Score: Medical Status [...] PRN. 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 Psychosocial: Patient [...] ADL's (clinical observation and judgement): Feeding: Complete [place] Oral Facial Hygiene: Minimal Assistance Bathing: Moderate [...] practice use next session. Pt also educated/issued LH firer automatic stoker, LH sponge, LH shoe horn to assist. Pt able to demo back use for LE dressing (doff B socks and don/doff pants) with mod A (min A for use of AE and min A for dynamic standing balance for clothing management). Pt educated on elevated toilet seat and tub-transfer bench for showering at d/hairspring i inspector ensure adherence with hip precautions. Pt educated [...] Vitals: 12/22/19 2243 12/23/19 0154 12/23/19 0829 03/18/20 1006 BP: 125/81 101/66 107/63 (!) 138/100 [...] Holding plavix Resume once okay with Dr Chowdhury Home med review per pharmacist. Patient mentioned [...] Bowel regimen ordered. ?? Discussed with Dr Chowdhury, will resume Eliquis as per home dose [...] hip prec, no ABD ex per Dr. Chowdhury. Bed Mobility: Not assessed. Pt prefers to [...] and intact pre and post visit. RN, Pat, notified of patient's performance/location end of session. [...] Method: Private Car Laila Wong PTA x [phone] * Blaine Riley RN - 12/23/2019 12:38 [...] at 1600. Pain well controlled with morphine COUNSELING DEPARTMENT CHAIR. Neuro checks completed. Silver dressing intact. Up [...] tolerating Tx well with pain managed at 02/13 with COUNSELING DEPARTMENT CHAIR. Pt amb 5 ft from bed to [...] place and intact pre and post visit. Joana EDDY, notified of patient's performance/location end of session. [...] are minimized Outcome: Ongoing Flowsheets (Taken 12/22/2019 6742) [place] Fall Risk Precaution Interventions: Call light/belongings in [...] edges well approximated Outcome: Ongoing Note: Mr. Cobian incisions will remain intact during this shift. [...] H&P Notes * Maryjane Chowdhury MD - 12/23/2019 12:25 PM CDT Images from the original note were not included. HISTORY AND PHYSICAL PATIENT: LIAN ANDRADE MR#: [id number] ADMIT DATE: 10/22/2019 CSN: [id number] : 1955 ROOM: PHYSICIAN: MARYJANE CHOWDHURY MD ? CHIEF COMPLAINT: Left hip pain. ?? [...] HISTORY: DJD. ?? SOCIAL HISTORY: Nonsmoker. ?? [address] [address] Notes Report Lian Andrade , : 1955, Sex: M Adm: 10/22/2019, D/C: 10/22/2019 Maryjane Chowdhury MD Physician Surgery Orthopedics H&P Signed Date of Service: 10/22/2019 11:59 PM Creation Time: 12/21/2019 ??4:39 PM Show:Clear all [x]Manual[]Template[]Copied Added by: [x]Maryjane Chowdhury MD []Hover for details ? [facility] ?? HISTORY AND PHYSICAL PATIENT: LIAN ANDRADE MR#: [id number] ADMIT DATE: 10/22/2019 CSN: [id number] : 1955 ROOM: PHYSICIAN: MARYJANE CHOWDHURY MD ? CHIEF COMPLAINT: Left hip pain. ?? [...] advanced DJD of the left hip with onga-sx-emcz disease. ?? PLAN: Elective left total hip replacement patient understands and wished to proceed. ? Maryjane Huynh. MD [place] ? [facility]/MODL #: [id number] ?? Last signed by: Maryjane Chowdhury MD at 12/22/2019 ??1:40 PM ??1:40 PM Pensions Retirement Plan Specialist Information Trans ID [id number] Dictation Time 12/21/2019 ??2:44 PM Trans Status Signed Trans Time 12/21/2019 ??4:30 PM Trans Doc Type History and Physical Note Details Author Maryjane Chowdhury MD File Time 12/22/2019 ??1:40 PM Author Type Physician Status Signed Last Core Maker Maryjane Chowdhury MD [facility] 10/22/2019 PRE ADMIT TESTING on 10/22/2019 Detailed Report PHYSICAL EXAM: Patient awake alert oriented x3. CHEST: Clear. HEART: Regular rate and rhythm. ABDOMEN: Soft. NEUROVASCULAR: Intact. No mental status changes. Good motion of neck, upper extremities. Painful limited range of motion of left hip with limp and antalgia. ?? DIAGNOSTIC DATA: X-rays show advanced DJD of the left hip with tesp-zo-ymkw Disease. * Maryjane Chowdhury MD - 12/23/2019 12:24 PM CDT Cc djd hpi Hip djd for elective total hip replacement Full note dictated p e Painful right hip with limp xrays djd right hip Plan Right thr fmaylack documented in this encounter Consult Notes * Lindsey Concepcion - 12/25/2019 3:19 PM CDT Pt discharge paperwork has been faxed to [facility]. Thank you for this referral. Lindsey Concepcion Admission Associate [facility] [place] [phone] [email or web address] * Lindsey Concepcion - 12/23/2019 4:36 PM CDTAssociated Order(s): IP CONSULT TO HOME HEALTH CARE Pt information has been faxed to [facility]. Will follow upon discharge. Lindseyglenys Concepcion Admission Associate [facility] Health at Home [phone] [email or web address] * Brendan Alarcon MD - 12/22/2019 11:10 PM CDT [facility] [place] Brendan Alarcon MD Patient's Primary Care Physician: [...] Height: Intake/Output Summary (Last 24 hours) at 12/22/20192309 Last data filed at 12/22/20192030 Gross per [...] CHOL, TRIG, HDL, LDLCALC in the last 01350 hours. No results for input(s):BNP, NTPROBNP in the last 82083 hours. No results for input(s): INR in the last 58300 hours. No results for input(s): TROPONINI in the last 47681 hours. CURRENT MEDS SCHEDULED MEDICATIONS: allopurinol (ZYLOPRIM) [...] care of Lian Andrade BRENDAN ALARCON MD [facility] Pager # [phone] * Mansoor Lafleur MD - 12/22/2019 5:00 [...] FUSION 2013 No family history on file. 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 Psychiatric: patient [...] in chart. CC: Gianluca Price MD, Maryjane Chowdhury MD documented in this encounter OR Notes * Operative - Maryjane Chowdhury MD - 12/22/2019 2:11 PM CDT [facility] OPERATIVE REPORT PATIENT: : LIAN ANDRADE MR#: [id number] ADMIT DATE: 12/22/2019 CSN: [id number] DATE OF SURGERY: 12/22/2019 : 1955 PHYSICIAN: Maryjane Chowdhury MD ROOM: [facility] SURGEON: Maryjane Chowdhury MD. PREOPERATIVE DIAGNOSIS: Degenerative [...] were correct. Stable to recovery room. Maryjane Chowdhury MD [facility]/MODL #: [id number] * Brief Op Note - Maryjane Chowdhury MD - 12/22/2019 12:37 PM CDT Brief Op Note Procedure: LEFT HIP ARTHROPLASTY Patient Name: Lian Andrade Date of Service: 12/22/2019 Pre-Op Diagnosis: * djd Post-Op Diagnosis: djd Surgeon(s) and Role: * Maryjane Chowdhury MD - Primary Mechanical Tech(s): Anesthesia Type: general ETT Complications: none Findings: djd EBL: minimal blood loss Urine Output : IV Fluid Intake: Drains: * No LDAs found * Specimen(s): Maryjane Chowdhury MD [id number] documented in this encounter Plan of Treatment [...] 12:49 PM CDT Coronary artery disease involving beaver coronary artery of beaver heart without angina pectoris HGB HCT PANEL AM Draw 12/23/2019 2:08 AM CDT Primary osteoarthritis of left hip EKG 12-LEAD Routine 12/23/2019 12:35 AM CDT Coronary artery disease involving beaver coronary artery of beaver heart without angina pectoris CULTURE WOUND+GRAM STAIN STAT 12/22/2019 1:00 PM CDT Diagnosis unknown CULTURE ANAEROBE STAT 12/22/2019 1:00 PM CDT Diagnosis unknown NM TOTAL HIP REPLACEMENT 12/22/2019 11:57 AM CDT [...] 129(H) <=100 pg/mL 12/24/2019 6:33 AM CDT [facility] Blood BLOOD SPECIMEN / Unknown Venipuncture / Unknown 12/24/2019 5:40 AM CDT 12/24/2019 5:44 AM CDT Mansoor Lafleur MD LAB - CHEMISTRY [place] [facility] [address] [place] [address] * (ABNORMAL) HGB HCT PANEL (12/24/2019 5:40 AM CDT) Hemoglobin 11.3(L) 12.0 - 17.6 gm/dL 12/24/2019 5:53 AM CDT [facility] Hematocrit 34.1(L) 35.2 - 51.7 % 12/24/2019 5:53 AM CDT [facility] Blood BLOOD SPECIMEN / Unknown Venipuncture / Unknown 12/24/2019 5:40 AM CDT 12/24/2019 5:44 AM CDT Maryjane Chowdhury MD LAB - HEMATOLOGY ORD ERABLES Performing Organization Address [facility]/ZIP Co de Phone Number [facility] [address] [place] [address] * EKG 12-LEAD (12/23/2019 12:49 PM CDT) Ventricular Rate 118 BPM [facility] Atrial Rate 125 BPM [facility] QRS Duration ms 98 ms [facility] Q-T Interval ms 376 ms [facility] QTC Calculation (Bezet) 527 ms [facility] Calculated R Mor[place] 0 degrees [facility] Calculated T Mora 2 degrees [facility] Interpretation EKG Atrial fibrillation with rapid ventricular response with premature ventricular or aberrantly conducted complexes Prolonged QT Abnormal ECG Confirmed by ALLIE SUN NAN ([id number]) on 12/31/2019 9:38:07 AM [facility] 12/23/2019 12:4 9 PM CDT 12/31/2019 9:38 AM CDT Mansoor Lafleur MD ECG ORDERABLES Performing Organization Address [facility] Co de Phone Number [facility] * HGB HCT PANEL (12/23/2019 2:08 AM CDT) Hemoglobin 12.5 12.0 - 17.6 gm/dL 12/23/2019 3:48 AM CDT [facility] Hematocrit 38.3 35.2 - 51.7 % 12/23/2019 3:48 AM CDT [facility] Blood BLOOD SPECIMEN / Unknown Venipuncture / Unknown 12/23/2019 2:08 AM CDT 12/23/2019 3:33 AM CDT Maryjane Chowdhury MD LAB - HEMATOLOGY ORD ERABLES Performing Organization Address [place]/[facility]/ZIP Co de Phone Number [facility] [address] [place] [address] * EKG 12-LEAD (12/23/2019 12:35 AM CDT) Ventricular Rate 103 BPM [facility] Atrial Rate 150 BPM [facility] QRS Duration ms 100 ms [facility] Q-T Interval ms 398 ms [facility] QTC Calculation (Bezet) 521 ms [facility] Calculated R Mora -14 degrees [facility] Calculated T Mora 19 degrees [facility] Interpretation EKG Atrial fibrillation with rapid ventricular response Nonspecific ST abnormality Prolonged QT Abnormal ECG When compared with ECG of 22-OCT-2019 11:56, No significant change was found Confirmed by EM TO MD ([id number]) on 12/23/2019 8:43:50 AM [facility] 12/23/2019 12:3 5 AM CDT 12/23/2019 8:43 AM CDT Brendan Alarcon MD ECG ORDERABLES Performing Organization Address [place]/[facility]/ZIP Co de Phone Number [facility] * CULTURE WOUND+GRAM STAIN (12/22/2019 1:00 PM CDT) Culture No growth MARCELLO 12/25/2019 6:48 AM CDT [facility] Gram Stain Heavy Red blood cells 12/25/2019 6:48 AM CDT [facility] Gram Stain No organisms seen 12/25/2019 6:48 AM CDT [facility] Microbiology ENTIRE HIP REGION / Unknown 12/22/2019 1:00 PM CDT 12/22/2019 1:53 PM CDT Narrative [facility] - 12/25/2019 6:48 AM CDT Surgical Description: Swab Left Hip Maryjane Chowdhury MD LAB - MICROBIOLOGY O RDERABLES Performing Organization Address [place]/[facility]/ZIP Co de Phone Number [facility] [address] [place] [address], [facility] [phone] * CULTURE ANAEROBE (12/22/2019 1:00 PM CDT) Culture No anaerobic organisms isolated MARCELLO 2019 7:08 AM CDT [facility] Microbiology ENTIRE HIP REGION / Unknown 12/22/2019 1:00 PM CDT 12/22/2019 1:53 PM CDT Narrative [facility] - 2019 7:08 AM CDT Surgical Description: Swab Left Hip Maryjane Chowdhury MD LAB - MICROBIOLOGY O RDERABLES [facility] [address] [place] [address], [facility] [phone] * MAGNESIUM BLOOD (12/22/2019 10:46 AM CDT) Magnesium 1.7 1.6 - 2.6 mg/dL 12/22/2019 11:15 AM CDT [facility] Blood BLOOD SPECIMEN / Unknown Venipuncture / Unknown 12/22/2019 10:46 AM CDT 12/22/2019 10:54 AM CDT Vicenta Morejon DO LAB - CHEMISTRY [place] Performing Organization Address [place]/[facility]/ZIP Co de Phone Number [facility] [address] [place] [address] * (ABNORMAL) BASIC METABOLIC PANEL (CALCIUM TOTAL) (12/22/2019 10:46 AM CDT) Glucose 105 70 - 105 mg/dL 12/22/2019 11:15 AM CDT [facility] Sodium 138 136 - 145 mmol/L 12/22/2019 11:15 AM CDT [facility] Potassium 3.3(L) 3.5 - 5.1 mmol/L 12/22/2019 11:15 AM CDT [facility] Chloride 104 98 - 107 mmol/L 12/22/2019 11:15 AM CDT [facility] CO2 21(L) 23 - 31 mmol/L 12/22/2019 11:15 AM CDT [facility] Calcium 10.2 8.4 - 10.4 mg/dL 12/22/2019 11:15 AM CDT [facility] Anion Gap 13 8 - 16 mmol/L 12/22/2019 11:15 AM CDT [facility] BUN 18 8.4 - 25.7 mg/dL 12/22/2019 11:15 AM CDT [facility] Creatinine 0.77 0.72 - 1.25 mg/dL 12/22/2019 11:15 AM CDT [facility] eGFR by MDRD >60 >60 mL/min/1.7 3m2 12/22/2019 11:15 AM CDT [facility] eGFR by MDRD >60 >60 mL/min/1.7 3m2 12/22/2019 11:15 AM CDT [facility] Blood BLOOD SPECIMEN / Unknown Venipuncture / Unknown 12/22/2019 10:46 AM CDT 12/22/2019 10:54 AM CDT Vicenta Morejon DO LAB - CHEMISTRY [place] [facility] [address] [place] [address] documented in this encounter Visit Diagnoses Not [...] 500 mL 247.93 mL/hr acetaminophen (TYLENOL) tablet 650 mg 650 mg, Oral, EVERY 4 HOURS PRN, Fever, Mild Pain, Starting on Sat12/22/19 at 1545, Until Sat12/25/19 at 1652, For temperature greater [id number] [id number] F or for mild pain., Post-op $ Given 12/23/2019 9:35 AM CDT 650 mg allopurinol (ZYLOPRIM) tablet 300 mg 300 mg, Oral, DAILY, First dose on Sat12/22/19 at 1700, Until Discontinued $ Given 12/25/2019 9:57 AM CDT 300 mg $ Given 12/24/2019 8:52 AM CDT 300 mg $ Given 12/23/2019 12:03 PM CDT 300 mg kshnhszg-zsolqtnzj-ergplqrcukt (MAALOX;MYLANTA) suspension 15 mL 15 mL, Oral, [...] Given 12/24/2019 8:52 AM CDT 5 mg atorvastatin (LIPITOR) tablet 40 mg 40 [...] ineffective use Fleets enema., Post-op bupivacaine liposome (EXPAREL) 1.3 % injection PRN, Starting on Sat12/22/19 at 1237, Until Sat12/22/19 at 1349, Intra-op $ Given 12/22/2019 12:37 PM CDT 20 mL Left Hip bupivacaine PF (MARCAINE PF) 0.25 % injection PRN, Starting on Sat12/22/19 at 1237, Until Sat12/22/19 at 1349, Intra-op $ Given 12/22/2019 12:37 PM CDT 30 mL Left Hip calcium carbonate (TUMS) chew tablet 1 tablet [...] Given 12/24/2019 8:52 AM CDT 6.25 mg celecoxib (CeleBREX) capsule 400 mg [...] Given 12/24/2019 9:33 PM CDT 1 tablet lactated ringers infusion at 100 mL/hr, Intravenous, CONTINUOUS, Starting on Sat12/22/19 at 1415, Until Sat12/25/19 at 1652, Post-op $ New Bag/Syringe 12/22/2019 7:44 PM CDT 1 00 mL/hr $ New Bag/Syringe 12/22/2019 3:50 PM CDT 100 mL /hr lisinopril (PRINIVIL; ZESTRIL) tablet 10 mg 10 [...] unable to control nausea. morphine 1 mg/ml COUNSELING DEPARTMENT CHAIR COUNSELING DEPARTMENT CHAIR Dose: 1 mg, COUNSELING DEPARTMENT CHAIR Lockout Interval: 12 Minutes, One Hour Limit\Max Limit: 6 mg, Clinician Bolus (Load): Not Ordered, Intravenous, COUNSELING DEPARTMENT CHAIR, Starting on Sat12/22/19 at 1415, Until Sat12/25/19 at 1652, COUNSELING DEPARTMENT CHAIR Pump Therapy: Normal Risk (COUNSELING DEPARTMENT CHAIR only) Contact physician if respiratory rate falls below 10/minute. If respiratory rate < 7/min administer naloxone (Narcan) 0.2 mg IV STAT, begin oxygen at 4-10 LPM, STOP COUNSELING DEPARTMENT CHAIR immediately, and contact physician., Post-op $ New [...] relief for total of 8 mg., Post-op polyethylene glycol 3350 (MIRALAX) packet 17 g [...] Given 12/25/2019 9:58 AM CDT 20 mEq senna-docusate (SENOKOT-S) tablet 1 tablet 1 tablet, [...] zofran and reglan unable to control nausea. vancomycin (VANCOCIN) injection PRN, Starting on Sat12/22/19 at 1237, Until Sat12/22/19 at 1349, Intra-op $ Given 12/22/2019 12:37 PM CDT 1,000 mg Left Hip zolpidem (AMBIEN) tablet 5 mg 5 mg, [...] Post-op 0426 ($ Given - Provider: Blaine Riley, SURJIT)1415 (Not Administered - Provider: Maddi Em RN - Reason: IV Currently Infusing)214 (Not Administered - Provider: Mari Zavala RN - Reason: Loss of Access) 0522 ($ Given - Provider: Mari Zavala, SURJIT)1750 ($ Given - Provider: Theresa Lees, SURJIT)193 ($ Given - Provider: Mari Zavala, SURJIT)215 (Not Administered - Provider: Mari Zavala RN - Reason: See Comments - Comment: given at 193) 0509 ($ Given - Provider: Mari Zavala [...] dose on Sat12/23/19 at 2100, Until Discontinued 2141 ($ Given - Provider: Mari Zavala RN) 0852 ($ Given - Provider: Cindi Pressley RN)1931 ($ Given - Provider: Mari Zavala RN) [...] ($ Given - Provider: Cindi Pressley RN) 0958 ($ Given - Provider: Kiersetn Castro RN) carvedilol (COREG) tablet 6.25 mg 6.25 mg, Oral, 2 TIMES DAILY WITH MEALS, First dose on Sat12/22/19 at 1800, Until Discontinued, Take with food .Hold dose if BP is less than 110 systolic or heart rate is less than 60 bpm. 09 (Not Administered - Provider: Maddi Em RN - Reason: Per Administration Instructions)1400 ($ Given - Provider: Maddi Em RN - Comment: wants given to slow HR)1745 ($ Given - Provider: Maddi Em RN) 0852 ($ Given - Provider: Cindi Pressley RN)1749 ($ Given - Provider: Theresa Lees RN) 0956 ($ Given - Provider: Kiersten Castro RN) ceFAZolin (ANCEF) 2,000 mg in 50 ml [...] on Sat12/23/19 at 0900, Until Discontinued, Post-op 09 ($ Given - Provider: Maddi Em RN) 0852 ($ Given - Provider: Cindi Pressley RN) 0957 ($ Given - Provider: Kiersten Castro, SURJIT) furosemide (LASIX) tablet 20 mg 20 mg, Oral, DAILY, First dose on Sat12/23/19 at 0900, Until Discontinued, Hold dose if Blood pressure is less than 120mm Hg systolic 911 (Not Administered - Provider: Maddi Em RN [...] administration 0911 ($ Given - Provider: Maddi Em, SURJIT) 0856 ($ Given - Provider: Cindi Pressley RN) 0956 ($ Given - Provider: Kiersten Castro, SURJIT) potassium chloride ER (KLOR-CON M) tablet 20 mEq 20 mEq, Oral, 2 TIMES DAILY, First dose on Sat12/25/19 at 0930, Until Discontinued, Do not crush or chew. 0958 ($ Given - Provider: Kierstenconchita Castro RN) senna-docusate (SENOKOT-S) tablet 1 tablet 1 tablet, Oral, 2 TIMES DAILY, First dose on Sat12/22/19 at 2100, Until Discontinued, Post-op 0912 ($ Given - Provider: Maddi Em RN)2140 ($ Given - Provider: Mari Zavala, SURJIT) 0852 ($ Given - Provider: Cindi Pressley RN)1931 ($ Given - Provider: Mari Zavala, SURJIT) [...] Sat12/25/19 at 1652, Post-op morphine 1 mg/ml COUNSELING DEPARTMENT CHAIR COUNSELING DEPARTMENT CHAIR Dose: 1 mg, COUNSELING DEPARTMENT CHAIR Lockout Interval: 12 Minutes, One Hour Limit\Max Limit: 6 mg, Clinician Bolus (Load): Not Ordered, Intravenous, COUNSELING DEPARTMENT CHAIR, Starting on Sat12/22/19 at 1415, Until Sat12/25/19 at 1652, COUNSELING DEPARTMENT CHAIR Pump Therapy: Normal Risk (COUNSELING DEPARTMENT CHAIR only) Contact physician if respiratory rate falls below 10/minute. If respiratory rate < 7/min administer naloxone (Narcan) 0.2 mg IV STAT, begin oxygen at 4-10 LPM, STOP COUNSELING DEPARTMENT CHAIR immediately, and contact physician., Post-op PRN Medication [...] HOURS PRN, Fever, Mild Pain, Starting on 12/22/19 at 1545, Until Sat12/25/19 at 1652, For temperature greater [id number] degress F or for mild pain., Post-op 0935 ($ Given - Provider: Maddi Em, SURJIT) vuwvnchj-dbbigdeyc-uekcco icone (MAALOX;MYLANTA) suspension 15 mL 15 mL, [...] is unable to take oral medications., Post-op 193 (See Alternative - Provider: Mari Zavala, SURJIT) bisacodyl EC (DULCOLAX) tablet 5 mg(Linked Group 2) 5 mg, Oral, DAILY PRN, Constipation, Starting on Sat12/22/19 at 1545, Until Sat12/25/19 at 1652, Not to be given night of surgery. Use MOM first. If MOM ineffective then use bisacodyl. If bisacodyl ineffective use Fleets enema., Post-op 1935 (See Alternative - Provider: Mari Zavala, SURJIT) calcium carbonate (TUMS) chew tablet 1 tablet 1 tablet, Oral, PRN, Heartburn, Starting on 12/22/19 at 1632, Until Sat12/25/19 at 1652 diphenhydrAMINE [...] 1652, Post-op 0426 ($ Given - Provider: lBaine Riley RN)0913 (Not Administered - Provider: Maddi Em RN - Reason: See Comments - Comment: BP 98/62)1744 ($ Given - Provider: Maddi Em RN)2144 ($ Given - Provider: Mari Zavala RN) 0156 ($ Given - Provider: Mari Zavala, SURJIT)0532 ($ Given - Provider: Mari Zavala, SURJIT)1055 ($ Given - Provider: Cindi Pressley RN)2133 ($ Given - Provider: Mari Zavala RN) 0507 ($ Given - Provider: Mari Zavala, SURJIT)0957 ($ Given - Provider: Kiersten Castro RN) [...] (1 enema), Rectal, PRN, Constipation, Starting on Tu12/22/19 at 1545, Until Sat12/25/19 at 1652, Use MOM first. If MOM ineffective then use bisacodyl. If bisacodyl ineffective use Fleets enema., Post-op Group 3: diphenhydrAMINE (BENADRYL) capsule 25 mgJump to med 25 mg, Oral, EVERY 8 HOURS PRN, Itching, Starting on Tu12/22/19 at 1545, Until Sat12/25/19 at 1652, Post-op Or diphenhydrAMINE (BENADRYL) capsule 50 mgJump to med 50 mg, Oral, EVERY 8 HOURS PRN, Itching, Starting on Tu12/22/19 at 1545, Until Sat12/25/19 at 1652, May give 50 mg if 25 mg is ineffective., Post-op documented in this encounter
--- OUTSIDE RECORDS SUMMARY | 2024-10-05 02:44 | XMS_ITS | Encounter Summary ---
Author Organization [facility] Address [address] [place] [address] [place] [address] Care Team Providers Care Call Center Trainer Name Role Phone Gianluca Price MD Primary Care Provider [phone] Reason for Visit * Auth/Cert Specialty Diagnoses / Procedures Referred By Antonietta livingston Referred To Contact Diagnoses na Procedures ARTHROPLASTY TOTAL HIP Referral ID Status Reason Start Date Expiration Date Visits Re quested Visits Authorized [id number] 1 1 Encounter Details Date Type Department Care Team (Latest Contact Info) Description 09/13/2021 7:06 AM TUBE BENDER - 09/16/2021 12:48 PM TUBE BENDER Hospital Encounter DP [address] [address] [place] [address] [address] [place] [address] Surgery Orthopedics Discharge Disposition: Home [...] Comments Blood Pressure 149/93 09/16/2021 7:19 AM TUBE BENDER Pulse 89 09/16/2021 7:19 AM TUBE BENDER Temperature 36.3 ??C (97.3 ??F) 09/16/2021 7:19 AM CS T Respiratory Rate 17 09/16/2021 7:19 AM TUBE BENDER Oxygen Saturation 99% 09/16/2021 7:19 AM TUBE BENDER Inhaled Oxygen Concentration - - Weight 159.6 kg (351 lb 12.8 oz) 09/13/2021 7:45 AM TUBE BENDER Height 195.6 cm (6' 5 ) 09/13/2021 7:45 AM TUBE BENDER Body Mass Index 41.72 09/13/2021 7:45 AM TUBE BENDER documented in this encounter Functional Status Functional [...] Condition improved oiffice Fu 3 Weeks fmayylack BENDER documented in this encounter Medications at Time [...] Pressure Disorder clopidogrel (PLAVIX) 75 MG tabletIndications:Ac hamilton Coronary Syndrome Take 75 mg by mouth [...] when trying to ambulate out of bed BENDER * Mary Lou Chaidez, OT - 09/16/2021 [...] Stand By Assist ADL Tasks: Feeding: Complete Yolo Oral Facial Hygiene: Minimal Assistance Bathing: Moderate [...] to posterior hip precaution, total A to [facility] socks and don personal socks and tennis [...] visit, this serves as the discharge summary. MUNA BarretoR/Saira X [id number] BENDER * Eileen Pool - 09/16/2021 10:44 AM CST Patient is A&O X 4 VSS Dressing is clean, dry, and intact [place] given for pain CGA with walker when ambulating Voiding adequate amounts of urine via the urinal Discharged home at 1248, with medication and ice BENDER * Eileen Pool - 09/16/2021 10:44 AM [...] when trying to ambulate out of bed BENDER * Zenon Ramirez DO - 09/16/2021 10:30 AM CST Hospitalist Progress Note 09/16/2021 Clinical Course Admitted with a right elliot Drainage stopped No new complaints ROS No cp, sob, n/v Exam Vitals: 09/15/21 1720 09/15/21 2041 09/16/21 0406 09/16/21 0719 BP: 112/55 113/75 146/88 149/93 Pulse: 93 93 89 Resp: 17 Temp: 97.4 ??F (36.3 ??C) 97.3 [...] tablet 20 mg, Oral, BID PRN HYDROcodone-acetaminophen ([place]) 10-325 MG tablet 1 tablet, Oral, q4h PRN HYDROcodone-acetaminophen ([place]) 5-325 MG tablet 1 tablet, Oral, q4h [...] - Encourage incentive spirometry. Zenon Ramirez DO BENDER * Laila Wong, PODIATRY TEACHER - 09/16/2021 9:55 AM CST Physical Therapy [...] - surgical SUBJECTIVE: I have a leg motor express clerk at home. Dr. Chowdhury just said not [...] standing back issues. He has a leg motor express clerk and other AE at home that he [...] transfer yesterday due to this, nor did PODIATRY TEACHER assess today as transfer car is low and small. Pt is a tall, big corrina. He declines practice). He also states there are no RUBY his home so stair training was not [...] discharge home today. Pt will benefit from PT to maximize independent, functional mobility post ELLIOT surgery. PT Discharge Recommendations: Home;Daily Assist;24 Hour Supervision;Home Health PT Recommended Transportation Method: Private Car EDIN Ulloa, 0766 BENDER * Joana Finnegan RN - 09/16/2021 12:02 [...] have bed alarm on during this shift. BENDER * Fabiana You RN - 09/15/2021 4:37 PM CST Alert and orientated X4. Vital signs stable. Pain controlled with norco, ice and rest Abd, 4x4 and medipore changed as dressing was saturated with serosanguinous drainage, will continueto monitor Voiding without difficulty Up with PT/OT with no problems BENDER * Nu Hernandez RN - 09/15/2021 3:22 [...] at Home: Equipment At Home: Cane-Straight;Walker-2 Wheeled;Scooter- Power;Ritual Circumciser;Shoe Horn-Long Handled;Sock Aid Additional DME needed: Hunger [...] Medications: Transportation: Name: Nu Hernandez RN Phone: [phone] BENDER * Jaleesa Hodges PT - 09/15/2021 2:36 [...] and use of gait belt as leg motor express clerk. Sit to/from stand with standby assistance from [...] at home. Jaleesa PT, DPT [id number] 09/15/2021 BENDER * Maryjane Chowdhury MD - 09/15/2021 2:06 PM CST Ortho Pod 2 Doing Well Dc Home Tomorrow fmayrama BENDER * Jaleesa Hodges PT - 09/15/2021 11:49 AM CST Physical [...] PT Recommended Transportation Method: Private Car JODI Lazcano, DPT [phone] BENDER * Zenon Ramirez DO - 09/15/2021 11:34 AM CST Hospitalist Progress Note 09/15/2021 Clinical Course Admitted with a right elliot Some draining from incision. Walks stooped over ROS No cp, sob, n/v Exam Vitals: 09/14/21201909/15/21 0035 09/15/21 0448 09/15/21 1040 BP: 142/85 [...] tablet 20 mg, Oral, BID PRN HYDROcodone-acetaminophen ([place]) 10-325 MG tablet 1 tablet, Oral, q4h PRN HYDROcodone-acetaminophen ([place]) 5-325 MG tablet 1 tablet, Oral, q4h [...] - Encourage incentive spirometry. Zenon Ramirez DO BENDER * Chen Flores, OT - 09/15/2021 10:32 [...] (per observation and clinical judgment) Feeding: Complete Yolo Oral Facial Hygiene: Set-up;Supervision (standing at sink [...] AE items at home including sock aide, hot mill supervisor, and long handled shoe horn. Pt requires [...] this serves as the discharge summary. Chen TOROR/L [phone] BENDER * Fabiana You RN - 09/15/2021 10:09 AM CST Problem: Pain/Discomfort Goal: Patient exhibits reduced pain/discomfort as evidenced by pain scores Outcome: Progressing Note: Pain is controlled by [place] 10, ice, and rest Goal: Patient uses [...] safely and will remain free from falls BENDER * Mari Zavala RN - 09/15/2021 7:30 AM CST Patient was given norco for pain. With dressings to right hip intact.will continue to observe. BENDER * Sandra Mcneill, PT - 09/14/2021 2:51 [...] per Dr. Chowdhury. Sandra, PT [phone] 09/14/2021 BENDER * Aurora Angelo RN - 09/14/2021 1:46 [...] Wheeled walker for home use. Agreeable to [facility] at discharge. Will continue to follow for dc needs. Patient or outside medical sales representative requests care coordination reach out to family or caregiver listed above regarding discharge planning and at time of discharge? No Basic Needs Assessment (BNA) Score: 7 Anticipated Discharge Date: Anticipated Discharge Date: 09/17/21 Transportation at Discharge: Family Transportation to MD:Family Equipment at Home: Equipment At Home: Cane-Straight;Walker-2 Wheeled;Scooter- Power;Ritual Circumciser;Shoe Horn-Long Handled;Sock Aid Additional DME needed: none [...] to the patient Name: Aurora Angelo RN BENDER * Celina Dale RN - 09/14/2021 1:41 PM CST Pt A and O x 4. VSS. Pt tolerating his diet. Up with CGA using walker. Incisional dressing is saturated x 2 and was changed. Pt complaining of incisional pain given [place] and he verbalized relief. Will continue to monitor.Celina Dale RN 09/14/2021 1:45 PM Given report to Jael EDDY. BENDER * Sandra Mcneill, PT - 09/14/2021 1:01 PM CST Physical [...] Transportation Method: Private Car JODI Flores [phone] BENDER * Zenon Ramirez, DO - 09/14/2021 11:50 [...] 20 mg, Oral, BID PRN ?? HYDROcodone-acetaminophen ([place]) 10-325 MG tablet 1 tablet, Oral, q4h PRN ?? HYDROcodone-acetaminophen ([place]) 5-325 MG tablet 1 tablet, Oral, q4h [...] - Encourage incentive spirometry. Zenon Ramirez DO BENDER * Dulce Juarez - 09/14/2021 8:46 AM CST - Lian is alert and orientated x4 - VSS - Pt remained free from falls this shift - Voiding w/o difficulties - Last BM 09/13 - Pain managed with ice and [place] 5mg - Ambulating with CGA - Pressure dressing c/d/i. Did become saturated at shift change per day shift RN after ambulating. Dulce Juarez RN BENDER * Mary Lou Chaidez OT - 09/14/2021 8:45 AM CST Occupational [...] : Tub/Shower Combo Equipment At Home: Cane-Straight;Walker-2 Wheeled;Scooter-Power;Ritual Circumciser;Shoe Horn-Long Handled;SockAid (Taller toilet) Mobility: Ambulate-In Home ;With Assistive Device Fallen Within 6 Mos: No Have Help at Home?: Yes, there is help at home now How often is assistance provided?: assist prn Level of Help Sufficient?: Yes Oxygen at Home: No Activity at Home: Driving Vision: No impairment Hearing Exceptions: No impairment PLOF ADL: Prior to Admission Feeding: Complete Yolo Prior to Admission Oral Facial Hygiene: Complete Yolo Prior to Admission Bathing: Complete Yolo Prior to Admission Upper Body Dressing: Complete Yolo Prior to Admission Lower Body Dressing: Complete Yolo Prior to Admission Toileting: Complete Yolo Prior to Admission Bladder: Independent Prior to Admission Bowel: Independent Cognition: Orientation Level: Oriented X4 Cognition: Follows Commands-Consistent;Attention/concentration-normal for age;Processing-Appropriate Pain Assessment: Pain Rating Score #: 5 (pt pre-medicated per RN) Pain Location : Hip Pain Orientation: Right RUE Assessment: AROM - Right Upper Extremity: Within Functional Limits Strength - Right Upper Extremity: Within Functional Limits Reliability Technologist Strength: Reliability Technologist Strength - Right Upper Extremity: WFL LUE Assessment: AROM - Left Upper Extremity: Within Functional Limits Strength - Left Upper Extremity: Within Functional Limits Reliability Technologist Strength: Reliability Technologist Strength - Left Upper Extremity: WFL Basic ADL's: Feeding: Complete Yolo Oral Facial Hygiene: Minimal Assistance Bathing: Moderate [...] place and intact pre and post visit. Ju EDDY, notified of patient's performance/location end of [...] visit, this serves as the discharge summary. MUNA BarretoR/Saira X [id number] BENDER * Sandra Mcneill, PT - 09/13/2021 10:33 [...] do? Patient educated purpose of visit. Agreeable. 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 Scooter use for longer distances. Hx of L ELLIOT December 2019 so familiar with program. Patient Arthroplasty Liaison (PAL): Spouse Home Situation: Type of Residence: Private Residence Lives with:: Spouse Steps to Enter: No Home Structure: One Story (no basement) Equipment At Home: Cane-Straight;CPAP;Ritual Circumciser;Shoe Horn-Long Handled;Sock Aid;Toilet Seat - Raised;Walker-2 Wheeled;Other - Comment (Scooter, leg motor express clerk) Prior Level of Functioning: Mobility: Ambulate-In Community;Ambulate-In [...] Health PT Recommended Transportation Method: Private Car JOID Flores [phone] BENDER * Brigida Soares RN - 09/13/2021 8:02 [...] light appropriately and has good safety awareness. BENDER * Brigida Soares RN - 09/13/2021 7:58 PM CST Pt. Is alert and oriented x 4. SBA with wheeled walker. VSS. Tolerating regular diet. [place] 10 given for pain control. Silver dressing bloody upon admission to floor from PACU and changed, changed again at this time aspatient was sitting up in bed and bled through dressing. Encouraged patient lie down and ice hip atthis time. Ambulated to BR, voiding adequate amounts of urine. BENDER documented in this encounter H&P Notes * Maryjane Chowdhury MD - 09/12/2021 4:39 PM CST [facility] HISTORY AND PHYSICAL PATIENT: LIAN ANDRADE MR#: [id number] ADMIT DATE: CSN: [id number] : 1955 ROOM: PHYSICIAN: MARYJANE CHOWDHURY MD [...] and wished to proceed. Maryjane Chowdhury MD [facility] #: [id number] BENDER documented in this encounter Consult Notes * Nu Bruno - 09/16/2021 12:48 PM CSTAssociated Order(s): IP CONSULT TO HOME HEALTH CARE Received home care orders. Patient is an advanced ortho patient set up with [facility]. Face sheet, HH orders, admitting H&P, & AVS were faxed. Thank you for the referral. uN Bruno Admissions Associate [facility] BENDER * Zenon Ramirez DO - 09/13/2021 4:15 [...] results for input(s): TROPONIN in the last 65859 hours. No results for input(s): TSH in the last 86434 hours. Assessment and Plan CAD -asa -hold plavix afib -hold eliquis Hypertension - continue home regimen and adjust as needed. -hold for low bp sandra -cont cpap S/p right total hip arthroplasty - physical therapy - pain management -Dvt prophylaxis per orthopedic surgery recommendations. - Encourage incentive spirometry. Zenon Ramirez DO CC: Maryjane Chowdhury MD , Gianluca Price MD BENDER documented in this encounter OR Notes * Operative - Maryjane Chowdhury MD - 09/13/2021 6:38 PM CST [facility] OPERATIVE REPORT PATIENT: : LIAN ANDRADE MR#: [id number] ADMIT DATE: 09/13/2021 CSN: [id number] DATE OF SURGERY: 09/13/2021 : 1955 PHYSICIAN: [...] recovery room no intraoperative complication compartment. Maryjane Chowdhury MD [facility] #: [id number] BENDER * Brief Op Note - Maryjane Chowdhury MD - 09/13/2021 10:36 AM CST Brief Op Note Procedure: RIGHT TOTAL HIP ARTHROPLASTY Patient Name: Lian Andrade Date of Service: 09/13/2021 Pre-Op Diagnosis: *djd Post-Op Diagnosis: djd Surgeon(s) and Role: * Maryjane Chowdhury MD - Primary Hybrid Powertrain Development Engineer(s): Anesthesia Type: general ETT Complications: none Findings: djd EBL: 600 mL Urine Output : IV Fluid Intake: Drains: * No LDAs found * Specimen(s): * No specimens in log * Implant(s): Implant Name Type Inv. Item Serial No. Maid Cleaning Cooking Lot No. LRB No. Used Action SELF TAPPING BONE SCREW 6.5 X35MM [id number] Right 1 Implanted HIGH WALL LOANER [id number] Right 1 Implanted Shell Actb 54Mm Hip Lmt Hl Clr Cd Pps G7 Shell Actb 54Mm Hip Lmt Hl Clr Cd Pps G7 Tana Biomet [id number] Right 1 Implanted Head Fem 36Mm Hip Blx D Optn G7 Head Fem 36Mm Hip Blx D Optn G7 Tana Biomet [id number] Right 1 Implanted Slv Centering G7 Std Ofst Tpr Hip Ti Ty Slv Centering G7 Std Ofst Tpr Hip Ti Ty Tana Biomet [id number] Right 1 Implanted Stem Fem 11Mm 135Mm Hip 135D Std Ofst Stem Fem 11Mm 135Mm Hip 135D Std Ofst Tana Biomet [id number] Right 1 Implanted Maryjane Chowdhury MD [id number] BENDER documented in this encounter Plan of Treatment Not on file documented as of this encounter Procedures Procedure Name Priority Date/Time Associated Diagnosis Comments CARDIAC STRESS TEST ORDER 09/18/2021 9:47 PM TUBE BENDER IMAGING/RADIOLOGY/ XRAY RESULTS ORDER 09/18/2021 8:34 PM TUBE BENDER HGB HCT PANEL AM Draw 09/15/2021 3:53 AM TUBE BENDER Primary osteoarthritis of right hip HGB HCT PANEL AM Draw 09/14/2021 2:00 AM TUBE BENDER Primary osteoarthritis of right hip HOME CPAP/BIPAP FOR HOSP USE: NOCTURNAL 02 Routine 09/14/2021 12:01 AM TUBE BENDER AR TOTAL HIP REPLACEMENT 09/13/2021 9:55 AM TUBE BENDER Special Needs BIOMET (BERTO) NOTIFIED-NB HOME CPAP/BIPAP FOR HOSP USE: NOCTURNAL 02 Routine 09/13/2021 8:07 AM TUBE BENDER documented in this encounter Results * CARDIAC STRESS TEST ORDER (09/18/2021 9:47 PM TUBE BENDER) Narrative 09/18/2021 9:47 PM TUBE BENDER Ordered by an unspecified provider. Scanned Document CARDIAC SERVICES ORD ERABLES * IMAGING RADIOLOGY XRAY RESULTS ORDER (09/18/2021 8:34 PM TUBE BENDER) Anatomical Region Laterality Modality Other Narrative 09/18/2021 8:34 PM TUBE BENDER Ordered by an unspecified provider. Scanned Document IMAGING * (ABNORMAL) HGB HCT PANEL (09/15/2021 3:53 AM TUBE BENDER) Hemoglobin 9.5(L) 12.0 - 17.6 gm/dL 09/15/2021 4:04 AM TUBE BENDER [facility] Hematocrit 30.7(L) 35.2 - 51.7 % 09/15/2021 4:04 AM TUBE BENDER [facility] Blood BLOOD SPECIMEN / Unknown Venipuncture / Unknown 09/15/2021 3:53 AM TUBE BENDER 09/15/2021 3:58 AM TUBE BENDER Maryjane Chowdhury MD LAB - HEMATOLOGY ORD ERABLES Performing Organization Address City/[facility] Co de Phone Number [facility] [address] [place] [id number] * (ABNORMAL) HGB HCT PANEL (09/14/2021 2:00 AM TUBE BENDER) Hemoglobin 10.7(L) 12.0 - 17.6 gm/dL 09/14/2021 2:15 AM TUBE BENDER [facility] Hematocrit 34.5(L) 35.2 - 51.7 % 09/14/2021 2:15 AM TUBE BENDER [facility] Blood BLOOD SPECIMEN / Unknown Venipuncture / Unknown 09/14/2021 2:00 AM TUBE BENDER 09/14/2021 2:12 AM TUBE BENDER Maryjane Chowdhury MD LAB - HEMATOLOGY ORD ERABLES Performing Organization Address City/[facility] Co de Phone Number [facility] [id number] [place] [phone] documented in this encounter Visit Diagnoses Diagnosis Primary osteoarthritis of right hip- Primary Primary localized osteoarthrosis, pelvic region and thigh Primary osteoarthritis of right hip Primary localized osteoarthrosis, pelvic region and thigh Primary osteoarthritis of left hip Primary localized osteoarthrosis, pelvic region and thigh documented in this encounter Administered Medications Inactive Administered Medications - up to 3 most recent administrations Medication Order MAR Action Action Date Dose Rate Site 0.9% NaCl injection 3 mL 3 mL, Intracatheter, EVERY 8 HOURS, First dose on Alina 09/14/21 at 0600, Until Discontinued, Post-op $ Given 09/16/2021 6:12 AM TUBE BENDER 3 mL $ Given 09/15/2021 8:28 PM TUBE BENDER 3 mL $ Given 09/15/2021 12:38 PM TUBE BENDER 3 mL acetaminophen (Tylenol) tablet 1,000 mg 1,000 mg, Oral, PRE-OP ONCE, 1 dose, On Sat09/13/21 at 0745, For patients >50 Kg. Not for bariatric or cardiac patients., Pre-op $ Given 09/13/2021 7:50 AM TUBE BENDER 1,000 mg acetaminophen (Tylenol) tablet 650 mg 650 mg, Oral, EVERY 4 HOURS PRN, Fever, Mild Pain, Starting on Sat09/13/21 at 1402, Until 09/16/21 at 1352, For temperature greater [id number] degress F or for mild pain., Post-op allopurinol (Zyloprim) tablet 300 mg 300 mg, Oral, DAILY, First dose on Alina 09/14/21 at 0900, Until Discontinued $ Given 09/16/2021 8:29 AM TUBE BENDER 300 mg $ Given 09/15/2021 8:33 AM TUBE BENDER 300 mg $ Given 09/14/2021 8:14 AM TUBE BENDER 300 mg amLODIPine (Norvasc) tablet 5 mg 5 mg, Oral, DAILY, First dose on Alina 09/14/21 at 0900, Until Discontinued, Hold for sbp < 120 $ Given 09/16/2021 8:29 AM TUBE BENDER 5 mg $ Given 09/15/2021 8:34 AM TUBE BENDER 5 mg $ Given 09/14/2021 8:14 AM TUBE BENDER 5 mg aspirin tablet 325 mg 325 mg, Oral, 2 TIMES DAILY WITH MEALS, First dose on Alina 09/14/21 at 0800, Until Discontinued, VTE Prophylaxis, post-op Hip, Post-op $ Given 09/16/2021 8:29 AM TUBE BENDER 325 mg $ Given 09/15/2021 5:19 PM TUBE BENDER 325 mg $ Given 09/15/2021 8:33 AM TUBE BENDER 325 mg atorvastatin (Lipitor) tablet 40 mg 40 mg, Oral, AT BEDTIME, First dose on Sat09/13/21 at 2100, Until Discontinued $ Given 09/15/2021 8:28 PM TUBE BENDER 40 mg $ Given 09/14/2021 8:21 PM TUBE BENDER 40 mg $ Given 09/13/2021 8:53 PM TUBE BENDER 40 mg bisacodyl (Dulcolax) suppository 10 mg [...] If bisacodyl ineffective use Fleets enema., Post-op carvedilol (Coreg) tablet 6.25 mg 6.25 mg, Oral, 2 TIMES DAILY WITH MEALS, First dose on Sat09/13/21 at 1800, Until Discontinued, Hold for sbp < 120 Take with food $ Given 09/16/2021 8:29 AM TUBE BENDER 6.25 mg $ Given 09/15/2021 8:34 AM TUBE BENDER 6.25 mg $ Given 09/14/2021 5:47 PM TUBE BENDER 6.25 mg ceFAZolin (Ancef) 1,000 mg in 50 ml IVPB 1,000 mg (1 g), at 100 mL/hr, Intravenous, ONCE, 1 dose, On Sat09/13/21 at 0745, Administer 30 minutes prior to surgical incision. May repeat dose in 3 hours if surgical incision is not yet closed., Indication for anti-infective therapy: Surgical prophylaxis, Pre-op $ Admin. by Other Provider 09/13/2021 5:57 PM TUBE BENDER 1,000 mg 100 mL/hr celecoxib (CeleBREX) capsule 400 mg 400 mg, Oral, PRE-OP ONCE, 1 dose, On Sat09/13/21 at 0745, Pre-op $ Given 09/13/2021 7:49 AM TUBE BENDER 400 mg celecoxib (CeleBREX) capsule 400 mg 400 mg, Oral, DAILY, First dose on Alina 09/14/21 at 0900, Until Discontinued, Post-op $ Given 09/16/2021 8:29 AM TUBE BENDER 400 mg $ Given 09/15/2021 8:33 AM TUBE BENDER 400 mg $ Given 09/14/2021 8:13 AM TUBE BENDER 400 mg diphenhydrAMINE (Benadryl) capsule 25 mg [...] 2 TIMES DAILY PRN, Heartburn, Starting on 09/13/21 at 1402, Until 09/16/21 at 1352, Post-op $ Given 09/15/2021 5:19 PM TUBE BENDER 20 mg fentaNYL (PF) (Sublimaze) injection 50 mcg 50 mcg, Intravenous, EVERY 10 MIN PRN, Severe Pain, 4 doses, Starting on Sat09/13/21 at 1208, Until 09/13/21 at 1401, Maximum total of 4 doses If patient reaches max total dose, please consult anesthesiologist prior to further administration of pain meds. Hold pain meds if there are signs of hypoventilation., PACU $ Given 09/13/2021 12:57 PM TUBE BENDER 50 mcg $ Given 09/13/2021 12:18 PM TUBE BENDER 50 mcg furosemide (Lasix) tablet 20 mg 20 mg, Oral, 2 TIMES DAILY, First dose on Alina 09/14/21 at 0900, Until Discontinued, Hold for sbp < 120 $ Given 09/16/2021 8:29 AM TUBE BENDER 20 mg $ Given 09/15/2021 8:34 AM TUBE BENDER 20 mg $ Given 09/14/2021 8:21 PM TUBE BENDER 20 mg hydroCHLOROthiazide (Hydrodiuril) tablet 25 mg 25 mg, Oral, DAILY, First dose on Alina 09/14/21 at 0900, Until Discontinued, Hold for sbp < 120 $ Given 09/16/2021 8:29 AM TUBE BENDER 25 mg $ Given 09/15/2021 8:33 AM TUBE BENDER 25 mg $ Given 09/14/2021 8:13 AM TUBE BENDER 25 mg HYDROcodone-acetaminophen ([place]) 10-325 MG tablet 1 tablet 1 tablet, Oral, EVERY 4 HOURS PRN, Severe Pain, Starting on Sat09/13/21 at 1402, Until 09/16/21 at 1352, Post-op $ Given 09/16/2021 8:28 AM TUBE BENDER 1 tablet $ Given 09/16/2021 12:27 AM TUBE BENDER 1 tablet $ Given 09/15/2021 8:33 PM TUBE BENDER 1 tablet HYDROcodone-acetaminophen ([place]) 5-325 MG tablet 1 tablet 1 tablet, Oral, EVERY 4 HOURS PRN, Moderate Pain, or for pain prior to painful procedures/therapy, Starting on Sat09/13/21 at 1402, Until 09/16/21 at 1352, Post-op $ Given 09/14/2021 6:52 AM TUBE BENDER 1 tablet $ Given 09/14/2021 2:09 AM TUBE BENDER 1 tablet $ Given 09/13/2021 10:41 PM TUBE BENDER 1 tablet lactated ringers infusion at 20 mL/hr, Intravenous, PRE-OP CONTINUOUS, Starting on Sat09/13/21 at 0745, Until Sat09/13/21 at 1401, Pre-op Restarted 09/13/2021 11:54 AM TUBE BENDER $ New Bag/Syringe 09/13/2021 7:50 AM TUBE BENDER 20 mL/ hr lactated ringers infusion at 100 mL/hr, Intravenous, CONTINUOUS, Starting on Sat09/13/21 at 1230, Until 09/16/21 at 1352, Post-op $ New Bag/Syringe 09/13/2021 2:40 PM TUBE BENDER 100 mL/hr lidocaine PF (Xylocaine MPF) 1 % injection 0.5 mL 0.5 mL, Infiltration, PRE-OP ONCE, 1 dose, On Sat09/13/21 at 0745, May be used (0.5 ml locally to anesthetize prior to insertion). For patients not allergic to local anesthetics., Pre-op $ Given 09/13/2021 7:50 AM TUBE BENDER 0.5 mL lisinopril (Prinivil; Zestril) tablet 20 mg 20 mg, Oral, DAILY, First dose on Sat09/14/21 at 0900, Until Discontinued, Hold for sbp < 120 $ Given 09/16/2021 8:29 AM TUBE BENDER 20 mg $ Given 09/15/2021 8:33 AM TUBE BENDER 20 mg $ Given 09/14/2021 8:13 AM TUBE BENDER 20 mg magnesium hydroxide (Milk Of Magnesia) [...] 2 to 5 minutes., Post-op $ Given 09/14/2021 6:53 AM TUBE BENDER 4 mg ondansetron (Zofran) injection 4 mg 4 mg, Intravenous, EVERY 6 HOURS PRN, Nausea/Vomiting, Starting on Sat09/14/21 at 1200, Until 09/16/21 at 1352, May repeat x1 if no relief for total of 8 mg., Post-op $ Given 09/15/2021 11:32 AM TUBE BENDER 4 mg oxyCODONE CR 12hr (OxyCONTIN) tablet 20 mg 20 mg, Oral, PRE-OP ONCE, 1 dose, On Sat09/13/21 at 0745, Do not crush, chew, or cut in half., Pre-op $ Given 09/13/2021 7:49 AM TUBE BENDER 20 mg polyethylene glycol 3350 (Miralax) packet 17 g 17 g, Oral, DAILY, First dose on Sat09/15/21 at 0900, Until Discontinued, Mix in 8 ounces of water, juice, soda, coffee or tea prior to administration $ Given 09/16/2021 8:28 AM TUBE BENDER 17 g $ Given 09/15/2021 8:34 AM TUBE BENDER 17 g potassium chloride ER (Klor-Con M) tablet 20 mEq 20 mEq, Oral, DAILY, First dose on Alina 09/14/21 at 0900, Until Discontinued, Do not crush or chew. $ Given 09/16/2021 8:29 AM TUBE BENDER 20 mEq $ Given 09/15/2021 8:33 AM TUBE BENDER 20 mEq $ Given 09/14/2021 8:13 AM TUBE BENDER 20 mEq povidone-iodine (Betadine) 5 % solution Nasal, PRE-OP ONCE, 1 dose, On Sat09/13/21 at 0745 $ Given 09/13/2021 7:50 AM TUBE BENDER scopolamine (Transderm-Scop) 1 patch 1 patch, Administer [...] 72 hours. $ Applied 09/13/2021 7:56 AM TUBE BENDER 1 patch Behind Right Ear scopolamine patch placement confirmation Transdermal, 2 TIMES DAILY, First dose on Sat09/13/21 at 0900, Until Discontinued, Patient has a patch to be confirmed on transition to inpatient and 2 times daily. senna-docusate (Senokot-S) tablet 1 tablet 1 tablet, Oral, 2 TIMES DAILY, First dose on Sat09/13/21 at 1730, Until Discontinued, Post-op $ Given 09/16/2021 8:28 AM TUBE BENDER 1 tablet $ Given 09/15/2021 8:27 PM TUBE BENDER 1 tablet $ Given 09/15/2021 8:33 AM TUBE BENDER 1 tablet sodium phosphate rectal (Fleet) enema [...] Recently Administered Medications Times are shown in TUBE BENDER. Scheduled Medication Order 09/14/2021 09/15/2021 09/16/2021 0.9% [...] You RN)2027 ($ Given - Provider: Joana Finnegan, SURJIT) 0612 ($ Given - Provider: Joana Finnegan [...] Dale RN)1747 ($ Given - Provider: Natalia Lo, SURJIT) 0833 ($ Given - Provider: Fabiana You RN)1719 ($ Given - Provider: Fabiana You RN) 0829 ($ Given - Provider: Eileen Pool) atorvastatin (Lipitor) tablet 40 mg 40 mg, Oral, AT BEDTIME, First dose on Sat09/13/21 at 2100, Until Discontinued 2020 ($ Given - Provider: Natalia Lo RN) 2027 ($ Given - Provider: Joana Finnegan, SURJIT) carvedilol (Coreg) tablet 6.25 mg 6.25 mg, Oral, 2 TIMES DAILY WITH MEALS, First dose on Sat09/13/21 at 1800, Until Discontinued, Hold for sbp < 120 Take with food 0813 ($ Given - Provider: Celina Dale RN)1747 ($ Given - Provider: Natalia Lo RN) 0834 ($ Given - Provider: Fabiana You RN)1720 (Not Administered - Provider: Fabiana You RN - Reason: Per Administration Instructions) 0829 ($ Given - Provider: Eileen Pool) celecoxib (CeleBREX) capsule 400 mg 400 mg, Oral, DAILY, First dose on Sat09/14/21 at 0900, Until Discontinued, Post-op 0813 ($ Given - Provider: Celina Dale RN) 0833 ($ Given - Provider: Fabiana oYu RN) 0829 ($ Given - Provider: Eileen Pool) furosemide (Lasix) tablet 20 mg 20 mg, Oral, 2 TIMES DAILY, First dose on Sat09/14/21 at 0900, Until Discontinued, Hold for sbp < 120 0814 ($ Given - Provider: Celina Dale RN)2020 ($ Given - Provider: Natalia Lo RN) [...] 0829 ($ Given - Provider: Eileen Pool) scopolamine patch placement confirmation Transdermal, 2 TIMES DAILY, First dose on Sat09/13/21 at 0900, Until Discontinued, Patient has a patch to be confirmed on transition to inpatient and 2 times daily. 0814 (Removed - Provider: Celina Dale RN - Comment: by patient)2020 (Removed - Provider: Natalia Lo RN - Comment: via pt) 1021 (Removed - Provider: Fabiana You RN)2033 (*Reviewed - Provider: Joana Finnegan RN) 08 (Removed - Provider: Eileen Pool) senna-docusate (Senokot-S) tablet 1 tablet 1 tablet, Oral, 2 TIMES DAILY, First dose on Sat09/13/21 at 1730, Until Discontinued, Post-op 0813 ($ Given - Provider: Celina Dale, RN)2020 ($ Given - Provider: Natalai Lo, RN) 0833 ($ Given - Provider: Fabiana You, SURJIT)2026 ($ Given - Provider: Joana Finnegan RN) [...] Until 09/16/21 at 1352, For temperature greater [id number] degress F or for mild pain., Post-op [...] - Provider: Fabiana You RN) HYDROcodone-acetaminop hen ([place]) 10-325 MG tablet 1 tablet 1 tablet, [...] Given - Provider: Eileen Pool) HYDROcodone-acetaminop hen ([place]) 5-325 MG tablet 1 tablet 1 tablet, [...] on Sat09/13/21 at 1800, Last dose on Alina 09/14/21 at 0600, Administer over 2 to 5 [...] Post-op documented in this encounter Care Teams Call Center Trainer Relationship Specialty Start Date End Date Gianluca Price MD [address] [place] [id number] PCP - General Internal Medicine 08/29/21 documented as of this encounter
--- OUTSIDE RECORDS SUMMARY | 2024-10-05 02:44 | XMS_ITS | Encounter Summary ---
Author Organization [facility] Address [address] [place] [address] [place] [address] Care Team Providers Care Genetic Coordinator Name Role Phone Gianluca Price MD Primary Care Provider Encounter Details Date Type Department Care Team (Latest Contact Info) Description 08/29/2021 7:54 AM CAR RESTORER - 08/29/2021 11:59 PM CAR RESTORER Hospital Encounter [facility] [address] [place] [address] [place] [address] [place] [address] Discharge Disposition: Home or Self Care Social History Tobacco Use Types Packs/Day Years [...] Sign Reading Time Taken Comments Blood Pressure 114/70 08/29/2021 8:30 AM CAR RESTORER Pulse 74 08/29/2021 8:30 AM CAR RESTORER Temperature 36.8 ??C (98.2 ??F) 08/29/2021 8:30 AM CS T Respiratory Rate - - Oxygen Saturation 97% 08/29/2021 8:30 AM CAR RESTORER Inhaled Oxygen Concentration - - Weight 156.5 kg (345 lb) 08/29/2021 8:30 AM CAR RESTORER Height 195.6 cm (6' 5 ) 08/29/2021 8:30 AM CAR RESTORER Body Mass Index 40.91 08/29/2021 8:30 AM CAR RESTORER documented in this encounter Functional Status Functional [...] 12/25/2019 documented as of this encounter Discharge Instructions * Patient Instructions* Coreen Tripp, KILN ST[employer]IC[employer]UST[employer] BROKER - 08/29/2021 8:45 AM CAR RESTORER 1) Please contact the prescribing provider of the Eliquis in order to obtain the plan for holding this medication prior to surgery. Ideally, our anesthesia team requests that Eliquis is held (stopped) for 72 hours prior to surgery,HOWEVER, ultimately, the decision-maker regarding determining the plan for holding this medication prior to surgery is the prescribing provider (ie. gate technician or primary care provider, etc). 2) Please contact the prescribing provider of the Plavix in order to obtain the plan for holding this medication prior to surgery. Ideally, our anesthesia team requests that Plavix is held (stopped) for 7 days prior to surgery, HOWEVER, ultimately, the decision-maker regarding determining the plan for holding this medication prior to surgery is the prescribing provider (ie. gate technician or primary care provider, etc). 3) Your potassium is LOW on the labs that were done today. I would recommend that you increase potassium-rich foods in your diet, to include foods such as: bananas, sweet potatoes, cooked broccoli, & cooked spinach, as examples. The labs done today will be sent to your primary care provider. You will be notified if your primary care provider has any additional recommendations for management of this lab result prior to surgery. Medication Instructions for Surgery Current Outpatient Medications Medication Sig Note Dispense Refill ??? allopurinol (ZYLOPRIM) 300 MG tablet Take 300 mg by mouth once daily Reasons: Primary Gout ??? amLODIPine (NORVASC) 5 MG tablet Take 5 mg by mouth once daily Reasons: High Blood Pressure Disorder 08/29/2021: Take morning of surgery ??? apixaban (ELIQUIS) 5 MG tablet Take 5 mg by mouth 2 times daily Reasons: Cerebrovascular Accident or Stroke 08/29/2021: To verify with gate technician when to hold prior to surgery ??? atorvastatin (LIPITOR) 40 MG tablet Take 40 mg by mouth once daily Reasons: High Amount of Fatsin the Blood ??? carvedilol (COREG) 6.25 MG tablet Take 6.25 mg by mouth 2 times daily with morning and evening meal Reasons: High Blood Pressure Disorder 08/29/2021: Take morning of surgery ??? clopidogrel (PLAVIX) 75 MG tablet Take 75 mg by mouth once daily Reasons: Acute Coronary Syndrome 08/29/2021: To verify with gate technician when to hold prior to surgery ??? furosemide (LASIX) 20 MG tablet Take [...] once daily Reasons: High Blood Pressure Disorder 08/29/2021: Take morning of surgery If you are taking any NSAIDs (Advil, Ibuprofen, Naproxen, Aleve, Motrin, Meloxicam, etc.), please stop 10 days prior to surgery as these are considered blood thinning medications. Date of surgery: 09-13-2021 Arrival Time: 6:30 am Time of surgery: 8:30 am ??? You will be notified if your arrival time changes ??? Please report to the [facility] Building. Take the elevators across from outpatient registration to the second floor, exit left and enter the Outpatient Surgery waiting room. Sign in and be seated. ??? Bring a copy of your living will or power of ip attorney form if we do not have a current copy. Day of surgery instructions ??? Do not eat or drink anything after midnight unless directed by your surgeon (no gum, mints, or candy). You may brush your teeth, swish and spit. ??? If you use a CPAP/BiPAP machine, please bring it with you on the day of surgery (for overnight stay). ??? Do not bring or wear jewelry (including body piercings). Leave valuables at home ??? Bring your eyeglasses. Do not wear contacts. ??? Take a shower using the antibacterial soap, following the instructions given. ??? Dress in clean clothing appropriate to wear after your surgery. ??? Arrange for a responsible adult to bring you to the hospital, and to drive you home. ??? Bring you insurance information and proof of identification, such as your local city driver's license, with you to the hospital, and any necessary co-insurance. If you are having any problems on the day of surgery, please call the Ambulatory Surgery desk at [phone]. Since you have received a COVID vaccine, you will not be required to complete a COVID test prior tosurgery. However, if you develop any symptoms of COVID 19 or have a significant exposure to COVID 19 please contact your surgeons office immediately. A REMINDER, YOU SHOULD PRACTICE SOCIAL DISTANCING FOR AT LEAST 7 DAYS PRIOR TO SURGERY. COVID Related Hospital Precautions When you arrive to the hospital the day of your surgery you will enter the [facility]. We are currently requiring [place] Masking in the hospital. You will need to wear a mask into thehospital and at all times while admitted. We recommend that you bring a second mask with you. VISITOR GUIDELINES: To promote the safety of our patients, employees and the community, we continueto limit visitors throughout our [facility] care sites.You will be allowed two visitors at a time. Visiting hours once you are admitted to the hospital after surgery are from 8AM-8PM. All visitors must wear a mask. PREOPERATIVE CHRLORHEXIDINE (CHG) ? BATHING INSTRUCTIONS Before surgery, you can play an important role in your own health. Because skin is not sterile,we need to be sure that your skin is as free of germs as possible before surgery. You can reduce the number of germs on your skin by carefully washing before surgery. Following these instructions will help you be sure that your skin is clean before surgery IMPORTANT: You will need to shower with a special soap called Chlorohexidine gluconate (CHG) ?. A common brand name for this soap is Hibiclens, but any brand is acceptable to use. The soap will come in a liquid. This may be purchased at any local pharmacy. If you are allergic to Chlorohexidine use Dial antibacterial soap for your shower/bath. ? Shower or bathe with CHG? the night before and the morning of surgery. ? Do not shave the area of your body where surgery will be performed. ? Wash your hair usual with your normal shampoo. ? Rinse your hair and body thoroughly after you shampoo remove all shampoo residues. ? Apply the CHG? to the entire body ONLY FROM THE NECK DOWN. Do not use CHG? near your eyes or earsto avoid permanent injury to those areas. ? Wash thoroughly, paying special attention to the area where surgery will be performed. ? Turn the water off to prevent rinsing the soap off too soon. ? Wash your body gently for five (5) minutes. Do not scrub your skin too hard. ? Do not wash with your regular soap after CHG? is used. ? Turn the water back on and rinse your body thoroughly. ? Pat yourself dry with a clean, soft towel. ? Do not use lotion, cream, or powder. ? Make sure clean linens are on your bed the night prior to surgery. ? Wear clean clothes. ? Repeat this process the morning of surgery using ONLY CHG soap. * Not to be used by people allergic to Chlorhexidine INCENTIVE SPIROMETER The following provides an overview of how you will use the spirometer after your surgery. Our goal is for you to become familiar with usage prior to your surgery date, as this improves the ability touse properly. Please attempt to use 2-3 times daily in the week leading up to your surgery date. DO NOT bring this spirometer with you the day of surgery, as you will be provided a new one after your surgery. Using your incentive spirometer after surgery will help your lungs clear and will help keep your lungs active throughout the recovery process, as if you were performing your daily activities. How to use the incentive spirometer: 1. Sit on the edge of your bed if possible, or sit up as far as you can in bed. 2. Hold the incentive spirometer in an upright position. 3. Place the mouthpiece in your mouth and seal your lips tightly around it. 4. Breathe in slowly and as deeply as possible. Notice the blue piston rising toward the top of thecolumn. The blue indicator on the right should float between the two blue arrows. 5. Hold your breath as long as possible. Then exhale slowly and allow the piston to fall to fall tothe bottom of the column. 6. Rest for a few seconds and repeat steps one to 5 at least 10 times every hour. 7. Position the blue indicator on the left side of the spirometer to show your best effort. Use theindicator as a goal to work toward during each slow deep breath. 8. After each set of 10 deep breaths. Cough to be sure your lungs are clear. If you have an incision, support your incision when coughing by placing a pillow firmly against it. 9. Once you are able to get out of bed safely, take frequent walks and practice the cough. RESTORER documented in this encounter Medications at Time [...] as of this encounter Progress Notes * Muriel Nicolas RN - 08/29/2021 9:37 AM CST Labs from SEC visit faxed to PCP via [employer] per instructions. RESTORER * Coreen Tripp APRN-CNP - 08/29/2021 8:01 AM CST Images from the original note were not included. PRESURGICAL OPTIMIZATION EVALUATION Patient Name: Du Anderson : 1955 SUBJECTIVE: Du Anderson is a 65 year old y.o. male presenting to the [facility]. He is scheduled for the followin09/13/21 RIGHT TOTAL HIP ARTHROPLASTY Maryjane Segura MD +PONDelma. H/o lumbar spinal fusion in 2013. Endorses that anesthesia team was ultimately unable to place spinal anesthetic for right knee replacement surgery in 2016, though it was attempted. Denies any family history of anesthetic complications. CAD s/p stenting x 4 in 2016 A.Fib CHF -- EF 46% per TTE 05/2021 Mild MR per TTE 05/2021 HTN, HLD -compliant with all daily meds- amlodipine, quinapril, carvedilol, furosemide, HCTZ, atorvastatin, Eliquis 5 mg BID, Plavix 75 mg daily -follows with gate technician Dr.Sudhir Bradley @ [facility] -- last OV -cardiology presurgical clearance documentation note is in paper chart. Cardiac Cath 11/2019: (care everywhere): [id number] 3 vessel disease of the RCA, LAD and superior ramus. ??His prior complex stents are patent with mild to moderate restenosis. ??We will continue to medically manage his coronary disease. ?? BP 114/70 / HR 74 here today -denies ever sx of A.Fib- no palpitations or tachycardia. PHILLIP- compliant with nightly CPAP use. Patient denies h/o asthma, COPD, PE, CHF, cardiac devices, stroke, seizure, neuromuscular diseases,bleeding/clotting disorders, diabetes, thyroid disease, kidney disease, liver disease. PCP is Dr.Lawrence Price -- PCP preop medical clearance documentation note is in paper chart. Review of Systems: As noted in HPI and also as outlined below Denies chest pain/pressure, palpitations, TOLLIVER, orthopnea, PND, syncope and swelling of the BLE. No cough, wheezing or shortness of breath Denies rash, open or unhealed sores and lesions No URI's in past 4-6 weeks. +reflux intermittently after eating Filipino food- sx resolve with taking Tums or Rolaids prn basis. Functional Status Assessment: METS (Metabolic Equivalents of Task) Score: equal to 4 METs Does cooking and laundry at home. Walks around his home with a cane. Uses a motorized scooter when needs to go longer distances, such as at the hospital today for his appointment. Reports unable to stand/walk for longer than 3 minutes because it then causes lower back pain. No exertional CP or SOB with this activity. PMH: Past Medical History: Diagnosis Date ??? Atherosclerosis of coronary artery ??? Atrial fibrillation a fib ??? CHF (congestive heart failure) ??? Essential hypertension ??? Obesity ??? PONV (postoperative nausea and vomiting) ??? Pure hypercholesterolemia ??? Sleep apnea PSH: Past Surgical History: Procedure Laterality Date ??? CARDIAC CATHETERIZATION, LEFT 2016 4 stents total ??? HIP ARTHROPLASTY, TOTAL Left 12/22/2019 LEFT HIP ARTHROPLASTY ??? HIP ARTHROPLASTY, TOTAL Left 12/22/2019 Left; LEFT HIP ARTHROPLASTY ??? Knee Replacement Right 2016 ??? Knee Replacement Left 2017 ??? LUMBAR SPINE FUSION 2013 Allergies: Allergies Allergen Reactions ??? Rosuvastatin Myalgias Current Medications: Outpatient Medications Marked as Taking for the 08/29/21 encounter (Hospital Encounter) with [facility] Medication Sig ??? allopurinol (ZYLOPRIM) 300 MG tablet Take [...] once daily Reasons: High Blood Pressure Disorder OBJECTIVE: BP 114/70 Pulse 74 Temp 98.2 ??F (36.8 ??C) Ht 1.956 m (6' 5 ) Wt 156.5 kg (345 lb) SpO2 97% BMI 40.91 kg/m2 Physical Exam: Airway/Mallamapati Score: deferred due to masking/covid precautions Mouth Opening Distance: deferred due to masking/covid precautions Neck ROM: normal range of motion and supple TM Distance: deferred due to masking/covid precautions Teeth: deferred due to masking/covid precautions General appearance - alert, well appearing, and in no distress and overweight Mental status - alert, oriented to person, place, and time Chest - clear to auscultation, no wheezes, rales or rhonchi, symmetric air entry Heart - regular rate, irregular rhythm. No murmur. 1+ pitting edema noted to BLE. Pertinent Diagnostic Tests: EKG tracing 07/2021 is in paper chart. NM Stress Test 07/12/21: (care everywhere): TTE 05/15/21: (care everywhere): Cardiac Cath 11/30/19: (care everywhere): Recent Labs Component Name 08/29/21 0830 12/22/19 1046 10/22/19 1034 SODIUM 136 138 139 POTASSIUM 3.4* 3.3* 3.7 CHLORIDE 103 104 104 CO2 23 21* 24 BUN 12 18 15 CREATININE 0.84 0.77 0.79 GLUCOSE 104 105 93 CALCIUM 9.9 10.2 9.8 ALT 16 - 27 ALKPHOS 89 - 113 AST 16 - 19 TBIL 0.6 - 0.8 TPROT 7.4 - 7.3 EGFR >60 >60 >60 A/P 1. Encounter for other pre-procedural examination All labs completed today were discussed with patient during clinic visit. Thoroughly discussed withpatient that all labs done today were obtained for preoperative screening purposes, and further management/recommendations and additional work-up (if necessary) will be deferred to the patient's primary care provider. All labwork done today will be sent to patient's primary care provider for continuity/coordination of care. Consulted with anesthesiologist ; case discussed, including NM Stress Test report 07/12/21. has no further recommendations preoperatively. Mild hypokalemia - K+ 3.4 -pt will continue taking daily oral potassium supplementation as has been doing -advised to increase potassium-rich foods in diet -advised f/u with PCP regarding lab results -will send a copy of all labs done today to PCP office for presurgical review and continuity/coordination of care -further management perioperatively, surveillance in future, and additional work-up as deemed necessary will be deferred to PCP. Preoperative Domain Results Recommendations BMI BMI (Calculated): 40.9 Initiate anti-inflammatory ( Mediterranean ) style diet in the perioperative period, unless otherwise contraindicated. Nutrition Recent Labs Component Name 08/29/21 0830 10/22/19 1034 ALBUMIN 4.0 4.3 Anti-inflammatory ( Mediterranean ) style diet discussed/encouraged perioperatively. Educational resource provided. Diabetes No results for input(s): HGBA1C, A1C, [id number], EAG in the last 18497 hours. N/A Non-diabetic Cardiac Records reviewed Will defer to both PCP and anesthesia team to determine if any additional cardiac testing/work-up is necessary prior to upcoming scheduled surgery. Pulmonary /PHILLIP +PHILLIP compliant with nightly CPAP use. Incentive Spirometer (IS) provided and patient was instructed regarding use. Encouraged daily use of IS prior to surgery. Smoking Social History Tobacco Use Smoking Status Never Smoker Smokeless Tobacco Never Used N/A Non-smoker Infection Prevention Denies h/o MRSA. CHG bathing instructions given to patient by nursing staff per protocol. Encouraged good hygiene and handwashing preoperatively. Chronic narcotic use Reviewed medication use with patient, specifically regarding if currently taking narcotics or not. If patient reported current narcotic use: Discussed with patient that if able to minimize narcotic use in the preoperative period, it will certainly aid/help with pain control/management postoperatively. VTE prophylaxis N/A Education provided re: Post-op VTE prevention. Follow specific recommendations from surgeon's office re: VTE prophylaxis. Preoperative testing CBC CMP results reviewed See notes above NPO instructions given to patient by RN per protocol. Preoperative/Day of Surgery medication instructions given to patient by RN per surgeon/anesthesia standing orders. AVS printed and given to patient. See AVS for additional instructions/information that was given topatient during this clinic visit. RUPINDER Loaiza RESTORER documented in this encounter Plan of Treatment Not on file documented as of this encounter Procedures Procedure Name Priority Date/Time Associated Diagnosis Comments COMPREHENSIVE METABOLIC PANEL Routine 08/29/2021 8:30 AM CAR RESTORER Preop examination documented in this encounter Results * (ABNORMAL) COMPREHENSIVE METABOLIC PANEL (08/29/2021 8:30 AM CAR RESTORER) [facility] Glucose 104 70 - 105 mg/dL 08/29/2021 9:16 AM CAR RESTORER [facility] Sodium 136 136 - 145 mmol/L 08/29/2021 9:16 AM CAR RESTORER [facility] Potassium 3.4(L) 3.5 - 5.1 mmol/L 08/29/2021 9:16 AM CAR RESTORER [facility] Chloride 103 98 - 107 mmol/L 08/29/2021 9:16 AM CAR RESTORER [facility] CO2 23 23 - 31 mmol/L 08/29/2021 9:16 AM CAR RESTORER [facility] Calcium 9.9 8.4 - 10.4 mg/dL 08/29/2021 9:16 AM CAR RESTORER [facility] Anion Gap 10 8 - 18 mmol/L 08/29/2021 9:16 AM CAR RESTORER [facility] BUN 12 8.4 - 25.7 mg/dL 08/29/2021 9:16 AM [facility] Creatinine 0.84 0.72 - 1.25 mg/dL 08/29/2021 9:16 AM CAR RESTORER [facility] Alkaline Phosphatase 89 40 - 150 U/L 08/29/2021 9:16 AM CAR RESTORER [facility] ALT 16 0 - 61 U/L 08/29/2021 9:16 AM CAR RESTORER [facility] AST 16 5 - 34 U/L 08/29/2021 9:16 AM [facility] Protein Total 7.4 6.4 - 8.3 gm/dL 08/29/2021 9:16 AM [facility] Albumin 4.0 3.2 - 4.6 gm/dL 08/29/2021 9:16 AM [facility] Bilirubin Total 0.6 0.2 - 1.2 mg/dL 08/29/2021 9:16 AM CAR RESTORER [facility] eGFR by MDRD >60 >60 mL/min/1.7 3m2 08/29/2021 9:16 AM [facility] eGFR by MDRD >60 >60 mL/min/1.7 3m2 08/29/2021 9:16 AM [facility] Blood BLOOD SPECIMEN / Unknown Venipuncture / Unknown 08/29/2021 8:30 AM CAR RESTORER 08/29/2021 8:52 AM CAR RESTORER Coreen Tripp [employer] BROKER [facility] - CHEM ISTRY ORDERABLES [facility] [address] [place] [address] documented in this encounter Visit Diagnoses Diagnosis Preop examination- Primary Preoperative examination, unspecified documented in this encounter Care Teams Genetic Coordinator Relationship Specialty Start Date End Date Gianluca Price MD [address] [place] [address] [address] [place] [address] PCP - General Internal Medicine 08/29/21 documented as of this encounter
--- OUTSIDE RECORDS SUMMARY | 2024-10-05 02:44 | XMS_ITS | Encounter Summary ---
Author Organization [facility] Address [address] [place] [address] Care Team Providers Care Project Consultant Name Role Phone Unavailable Primary Care Provider Unavailabl e Encounter Details Date Type Department Care Team (Late st Contact Info) Description 11/12/2019 6:30 PM GENERAL OPERATIONS MANAGER Anesthesia Event [facility] - Perioperative Surgery [address] [place], [place] [id number] Nuris Moser MD [address] [facility] [address] [place] [address] Anesthesia Record Procedure Summary Procedure Name Responsible Anesthesiologist Anesthesia Start Time Anesthesia Stop Time SURGICAL CASE DISCONTINUED PREOP Events Date Time Event Comment 11/12/2019 1830 AN Not Meds * Agents No agents on file. * Blood No blood administrations on file. Lines, Drains, and Airways No LDAs on file. documented in this encounter Social History Tobacco [...] on file documented as of this encounter Plan of Treatment Not on file documented as of this encounter Visit Diagnoses Not on filedocumented in this encounter
--- OUTSIDE RECORDS SUMMARY | 2024-10-05 02:44 | XMS_ITS | Encounter Summary ---
Author Organization [facility] Address [address] [place] [address] [place] [address] Care Team Providers Care Program Control Analyst Name Role Phone Unavailable Primary Care Provider Unavailabl e Encounter Details Date Type Department Care Team (Latest Contact Info) Description 10/22/2019 10:08 AM DIRECTOR OF CODING - 10/22/2019 11:59 PM DIRECTOR OF CODING Hospital Encounter [facility] [address] [place] [address] [place] [address] [place] [address] Discharge Disposition: Home or Self Care Anesthesia Record Procedure Summary Procedure Name Responsible [...] Sign Reading Time Taken Comments Blood Pressure 136/90 10/22/2019 10:54 AM DIRECTOR OF CODING Pulse 96 10/22/2019 11:36 AM DIRECTOR OF CODING Temperature - - Respiratory Rate - - Oxygen Saturation 95% 10/22/2019 10:35 AM DIRECTOR OF CODING Inhaled Oxygen Concentration - - Weight 150.6 kg (332 lb) 10/22/2019 10:35 AM DIRECTOR OF CODING Height 193 cm (6' 4 ) 10/22/2019 10:35 AM DIRECTOR OF CODING Body Mass Index 40.41 10/22/2019 10:35 AM DIRECTOR OF CODING documented in this encounter Discharge Instructions * Patient Instructions* Coreen Tripp, PHYSICIAN PRACTICE COORDINATOR-SENIOR SOFTWARE DEVELOPMENT MANAGER - 10/22/2019 12:13 PM DIRECTOR OF CODING I spoke with your camera technician . I notified him of the abnormal heart rhythm that we noted today. is going to have his nurse Verenice call you later today in order to set-up an appointment in the office prior to your surgery. He is sending a prescription for a blood thinner called Zayda to your pharmacy, and he would likeyou pick-up this prescription today. He wants you to STOP the aspirin staring today. Additionally, when nurse Verenice calls you, please make sure that you verify/understand the instructions that has regarding your blood thinners and how he wants you to take them. If you do not get call from Verenice the nurse this afternoon, then please give Paula's office a call first thing tomorrow morning. It was nice meeting you today! Pre-Surgery Nasal Screening [facility] is dedicated to providing you with excellent care. Patient safety is our top priority and we are committed to delivering best practices to ensure your protection during the pre- and post-surgical timeframe. Bacteria both inside and outside the hospital can cause infection. Two germs of particular concern are Multidrug-Resistant Staphylococcus Aureus (MRSA) and Methicillin-Sensitive Staphylococcus Aureus(MSSA). These germs can cause infection, but it also can live in or on the body without causing anysymptoms. MSSA also is very common, and is found on the skin or in the nose. To identify and properly manage MRSA or MSSA, we obtain a nasal swab for culture from all patients before surgery. The culture will identify if any MRSA or MSSA is present in your nose so that it can be treated before yoursurgery. If MRSA or MSSA is identified, you will be notified by our office. You will be called ONLY if the test is positive, and instructed to do the following treatment: 1. A topical antibiotic nasal ointment will be prescribed for you. This ointment is commonly referred to as Mupirocin or Bactroban. Apply this ointment to the inside of both your nares (nostrils) with a cotton swab (Q-tip) TWICE daily for 5 days. The office staff will go over these specific instructions with you. 2. You were provided a bottle of Chlorhexidine (Hibiclens) at the time of your preadmission testingvisit. To effectively treat the MRSA/MSSA you need to shower daily for 5 days using the Chlorhexidine from the neck down. The bottle provided will not last for the entire 5 day course, so you will want to pick one up from your local pharmacy. If you are allergic to Chlorhexidine, you may use liquid antibacterial soap such as Dial. These measures can reduce the potential for infection in your incision following your surgery. If you have any questions, you may call us or your surgeons office. Thank you for trusting [facility] with your care as we strive to achieve exceptional patient outcomes. [facility] Incentive Spirometer OVERIVEW The following provides an overview of how [...] and as deeply as possible. Notice the yellow piston rising toward the top of the column. The yellow indicator should reach the blue outlined area. 5. Hold your breath as long as possible. Then exhale slowly and allow the piston to fall to fall tothe bottom of the column. 6. Rest for a few seconds and repeat steps one to 5 at least 10 times every hour. 7. Position the yellow indicatior on the left side of the spirometer to show your best effort. Use the indicator as a goal to work toward during each slow deep breath. 8. After each set of 10 deep breaths. Cough to be sure your lungs are clear. If you have an incision, support your incision when coughing by placing a pillow firmly against it. 9. Once you are able to get out of bed safely, take frequent walks and practice the cough. CTOR OF CODING documented in this encounter Medications at Time of Discharge Medication Sig Dispensed Refills Start Date End Date allopurinol (ZYLOPRIM) 300 MG tabletIndications:Prima ry Gout Take 300 mg by mouth once daily Reasons: Primary Gout amLODIPine (NORVASC) 5 MG tabletIndications:Hyper tension Take 5 mg by mouth once daily Reasons: High Blood Pressure Disorder atorvastatin (LIPITOR) 40 MG tabletIndications:Hyper lipidemia Take 40 mg by mouth once daily Reasons: High Amount of Fats in the Blood carvedilol (COREG) 6.25 MG tabletIndications:Hyper tension Take 6.25 mg by mouth 2 times daily with morning and evening meal Reasons: High Blood Pressure Disorder clopidogrel (PLAVIX) 75 MG tabletIndications:Acute Coronary Syndrome Take 75 mg by mouth once daily Reasons: Acute Coronary Syndrome furosemide (LASIX) 20 MG tabletIndications:Hyper tension Take 20 mg by mouth 2 times daily Reasons: High Blood Pressure Disorder hydroCHLOROthiazide (HYDRODIURIL) 25 MG tabletIndications:Hyper tension Take 25 mg by mouth once daily Reasons: High Blood Pressure Disorder potassium chloride ER (KLOR-CON M) 20 MEQ tabletIndications:Hypok alemia Take 20 mEq by mouth once daily Reasons: Low Amount of Potassium in the Blood quinapril (ACCUPRIL) 40 MG tabletIndications:Hyper tension Take 40 mg by mouth once daily Reasons: High Blood Pressure Disorder aspirin (ASPIRIN) 81 MG tablet Take 81 mg by mouth once daily 12/23/2019 traMADol (ULTRAM) 50 MG tablet Take 50 mg by mouth 12/25/19 20 documented as of this encounter Progress Notes * Muriel Nicolas RN - 10/22/2019 1:23 PM CST Labs from SEC visit faxed to PCP via [employer] per instructions. CTOR OF CODING * Michell Perea RN - 10/22/2019 1:[address] Tamayo office spoke with Jenni and informed her pt has new onset afib and needs updated cardiac clearance prior to surgery. Pt is aware and is scheduled for preop appt prior to OR. CTOR OF CODING * Coreen Tripp, PHYSICIAN PRACTICE COORDINATOR-SENIOR SOFTWARE DEVELOPMENT MANAGER - 10/22/2019 11:11 AM CST PRESURGICAL OPTIMIZATION EVALUATION Patient Name: Lian Andrade : 1955 SUBJECTIVE: Lian Andrade is a 63 year old y.o. male presenting [facility] the [facility]. He is scheduled for the followin11/11/19 LEFT HIP ARTHROPLASTY Maryjane Chowdhury MD +PONDelma. H/o lumbar spinal fusion in 2013. Endorses that anesthesia team was ultimately unable to place spinal anesthetic for right knee replacement surgery in 2016, though it was attempted. Denies any family history of anesthetic complications. CAD s/p stenting x 4 in 2015 HTN HLD -compliant with all medications, including ASA 81 mg daily & Plavix daily -follows with camera technician Dr.Amit Mitchell at [facility] ---> see paper chart for cardiology clearance documentation dated 10/14/19 -denies h/o [place] in past -does not check BP's at home -states ONLY took quinapril, lipitor, & tramadol this morning. Did not yet take beta modesta this morning. He wasn't sure if needed to take meds today or not in light of uncertainness of testing to be done today. -denies any recent cardiac testing (ie. Stress test, Echo) since stenting in 2015 BP 120/86 on 10/16/19 documented PCP note BP Readings from Last 3 Encounters: 10/22/19 136/90 -plan to hold Plavix 5 days preoperatively per camera technician note PHILLIP- compliant with nightly CPAP use; follows with barber or beauty shop manager Dr.Martinez ---> see presurgical pulm clearance in paper chart. Obesity- BMI 40.41 on today's calculation PCP is Dr.Lawrence Price -- PCP preoperative medical evaluation clearance documentation note date10/16/19 is in paper chart. Patient denies h/o asthma, COPD, PE, CHF, heart murmur, heart arrhythmia, cardiac devices, stoke, seizure, neuromuscular diseases, bleeding/clotting disorders, diabetes, thyroid disease, kidney disease, liver disease. Review of Systems: Denies chest pain, palpitations, irregular heart beat, syncope, TOLLIVER, orthopnea, PND, or swelling ofthe feet or ankles. No dizziness. No cough, wheezing or shortness of breath Admits easy bruising secondary to anticoagulation use Denies rash and open or unhealed sores No URI's in past 4-6 weeks No reflux Functional Status Assessment: METS (Metabolic Equivalents of Task) Score: < 4 METs Physical activity/exertion is very limited secondary to left hip pain. Generally, uses a walker and/or cane when getting around. When going longer distances, he does use a scooter, which he is using here today during this clinic visit. States would be unable to walk >1 block without stopping due to left hip pain, though, he would not have any chest pain or shortness of breath with this activity. PMH: Past Medical History: Diagnosis Date ??? Atherosclerosis of coronary artery ??? Essential hypertension ??? Obesity ??? PONV (postoperative nausea and vomiting) ??? Pure hypercholesterolemia ??? Sleep apnea PSH: Past Surgical History: Procedure Laterality Date ??? CARDIAC CATHETERIZATION, LEFT 2016 4 stents total ??? Knee Replacement Right 2017 ??? Knee Replacement Left 2017 ??? LUMBAR SPINE FUSION 2013 Allergies: No Known Allergies Current Medications: Outpatient Medications Marked as Taking for the 10/22/19 encounter (Hospital Encounter) with [facility] OPTIMIZATION Medication [...] MG tablet Take 50 mg by mouth OBJECTIVE: BP 136/90 Pulse 96 Ht 1.93 m (6' 4 ) Wt 150.6 kg (332 lb) SpO2 95% BMI 40.41 kg/m2 HR varying 96-110 bpm when pulse ox was placed on patient continuously for the latter half of this clinic visit. Physical Exam: Airway/Mallamapati Score: Grade 2: Soft palate, base of uvula, tonsillar pillars, and portion of posterior pharyngeal wall visible Mouth Opening Distance: 3 fingerwidths Neck ROM: normal range of motion and supple TM Distance: > 3 FB Teeth: normal General appearance - alert, well appearing, and in no distress and overweight Mental status - alert, oriented to person, place, and time Chest - clear to auscultation, no wheezes, rales or rhonchi, symmetric air entry Heart - irregular rhythm; tachycardia. No murmurs. Pertinent Diagnostic Tests: Recent Labs Component Name 10/22/19 1034 WBC 9.4 RBC 4.73 HGB 14.5 HCT 44.0 MCV 93.0 MCHC 33.0 PLTCOUNT 237 NEUTPCT 65.6 LYMPHPCT 20.9 BASOPHILPCT 0.7 GRANSIMMPCT 1.0 NEUTABS 6.16 LYMPHABS 1.96 BASOABS 0.07 Recent Labs Component Name 10/22/19 1034 SODIUM 139 POTASSIUM 3.7 CHLORIDE 104 CO2 24 BUN 15 CREATININE 0.79 GLUCOSE 93 CALCIUM 9.8 ALT 27 ALKPHOS 113 AST 19 TBIL 0.8 TPROT 7.3 EGFR >60 fasting labs done today. A/P 1. Encounter for other pre-procedural examination [...] primary care provider for continuity/coordination of care. Irregular heart rhythm --- A.Fib per EKG tracing x 2 done today -pt unaware of any past diagnosis A.Fib or other cardiac arrhythmia -HR varying range 96-110 bpm today, though did not take carvedilol dose this morning -BP stable -pt asymptomatic -I personally called and spoke directly w/ camera technician during clinic visit today and we discussed all pertinent findings - relays that pt stable to leave [facility] appt now, and he will have his nurse Verenice call patient later this afternoon in order to set-up an office appointment with him prior to upcoming surgery. - also states that he will have patient do the following: STOP ASA. Start Eliquis. Continue Plavix. He recommended to advise patient to pick-up Eliquis prescription from pharmacy this afternoon. I did thoroughly educate the patient to make sure that he receives/verifies the plan for anticoagulants directly from nurse Verenice when she gives him a call later on this afternoon. -pt plans to go directly home from this clinic visit and take carvedilol and other antihypertensivemedications as prescribed -further mgmt of A.Fib per camera technician -will notify surgeon office of above information -additionally, I discussed with patient that he will need to obtain the plan for holding Eliquis preoperatively from -d/w with anesthesiologist today ----> she elected to not come visit with patient during clinic visit today, but advised to ensure that camera technician is aware of new-onset AFib preoperatively. Preoperative Domain Results Recommendations BMI BMI (Calculated): 40.43 Initiate anti-inflammatory ( Mediterranean ) style diet in the perioperative period, unless otherwise contraindicated. Nutrition Recent Labs Component Name 10/22/19 1034 ALBUMIN 4.3 Anti-inflammatory ( Mediterranean ) style diet discussed/encouraged perioperatively. Educational resource provided. Diabetes No results for input(s): HGBA1C, A1C, [id number], EAG in the last 41419 hours. N/A Non-diabetic Cardiac Records reviewed EKG obtained today 10/22/2019 per anesthesia team. Cardiology to complete final confirmatory read ofEKG. Will defer to both PCP and anesthesia team to determine if any additional cardiac testing/work-up is necessary prior to upcoming scheduled surgery. See above notes Pulmonary /PHILLIP +PHILLIP compliant with nightly CPAP use Incentive Spirometer (IS) provided and patient was instructed regarding use. Encouraged daily use of IS prior to surgery. Smoking Social History Tobacco Use Smoking Status Never Smoker Smokeless Tobacco Never Used N/A Non-smoker Infection Prevention Nasal Culture MRSA/MSSA: Obtained and pending Final culture result expected inapproximately 72 hr. If positive, will initiate treatment per guidelines. Encouraged good hygiene and handwashing preoperatively. Chronic narcotic use Tramadol 50 mg PRN for left hip pain. Discussed with patient that if able to [...] was given topatient during this clinic visit. Coreen Tripp, PHYSICIAN PRACTICE COORDINATOR-SENIOR SOFTWARE DEVELOPMENT MANAGER CTOR OF CODING documented in this encounter H&P Notes * Maryjane Chowdhury MD - 10/22/2019 11:59 PM CST [facility] HISTORY AND PHYSICAL PATIENT: LIAN ANDRADE MR#: [id number] ADMIT DATE: 10/22/2019 CSN: [id number] : 1955 ROOM: PHYSICIAN: MARYJANE CHOWDHURY MD CHIEF COMPLAINT: Left hip pain. HISTORY OF PRESENT ILLNESS: The patient is here with a 10 years of sharp, stabbing, progressive left hip pain Release ability to stand, walk drive climb exercise perform hygiene, activities of daily living, and with fear of falling. It has been refractory to all conservative measures including NSAIDs, injections, and therapy. Here for elective left total hip replacement. PAST MEDICAL HISTORY: Hip pain. REVIEW OF SYSTEMS: Hip pain. FAMILY HISTORY: DJD. SOCIAL HISTORY: Nonsmoker. PHYSICAL EXAM: Patient awake alert oriented x3. CHEST: Clear. HEART: Regular rate and rhythm. ABDOMEN: Soft. NEUROVASCULAR: Intact. No mental status changes. Good motion of neck, upper extremities. Painful limited range of motion of left hip with limp and antalgia. 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 PLAN: Elective left total hip replacement patient understands and wished to proceed. Maryjane Chowdhury MD FH/MODL #: [id number] documented in this encounter Plan of Treatment Not on file documented as of this encounter Procedures Procedure Name Priority Date/Time Associated Diagnosis Comments EKG 12-LEAD Routine 10/22/2019 11:56 AM DIRECTOR OF CODING Preop examination CULTURE MSSA/MRSA Routine 10/22/2019 10: 34 AM DIRECTOR OF CODING Preop examination CBC W AUTO DIFFERENTIAL STAT 10/22/2019 10:34 AM DIRECTOR OF CODING Preop examination COMPREHENSIVE METABOLIC PANEL STAT 10/22/2019 10:34 AM DIRECTOR OF CODING Preop examination documented in this encounter Results * EKG 12-LEAD (10/22/2019 11:56 AM DIRECTOR OF CODING) Ventricular Rate 107 BPM [facility] Atrial Rate 113 BPM [facility] QRS Duration ms 98 ms [facility] Q-T Interval ms 370 ms [facility] QTC Calculation (Bezet) 493 ms [facility] Calculated R Lisco -4 degrees [facility] Calculated T Lisco -12 degrees [facility] Interpretation EKG Atrial fibrillation with rapid ventricular response Abnormal ECG No previous ECGs available Confirmed by AGNES SUN, BRENDAN ([id number]) on 10/23/2019 1:16:07 PM [facility] 10/22/2019 11:5 6 AM DIRECTOR OF CODING 10/23/2019 1:16 PM DIRECTOR OF CODING Vicenta Morejon DO ECG ORDERABLES [facility] * (ABNORMAL) CBC W AUTO DIFFERENTIAL (10/22/2019 10:34 AM DIRECTOR OF CODING) WBC 9.4 4.4 - 10.7 x10E9/L 10/22/2019 10:47 AM [facility] WBC Corrected 10/22/2019 10:47 AM [facility] RBC 4.73 3.80 - 5.40 x10E12/L 10/22/2019 10:[address] [facility] Hemoglobin 14.5 12.0 - 17.6 gm/dL 10/22/2019 10:47 AM [facility] Hematocrit 44.0 35.2 - 51.7 % 10/22/2019 10:[address] [facility] MCV 93.0 80.7 - 98.3 fl 10/22/2019 10:[address] [facility] MCH 30.7 26.7 - 34.0 pg 10/22/2019 10:47 AM [facility] MCHC 33.0 30.8 - 35.9 gm/dL 10/22/2019 10:[address] [facility] Platelet Count 237 153 - 416 x10E9/L 10/22/2019 10:[address] [facility] RDW-CV 13.4 12.1 - 14.9 % 10/22/2019 10:[address] [facility] MPV 11.1 9.4 - 12.9 fl 10/22/2019 10:[address] [facility] Neutrophils % 65.6 44.0 - 73.0 % 10/22/2019 10:[address] [facility] Lymphocytes % 20.9 20.0 - 43.0 % 10/22/2019 10:[address] [facility] Monocytes % 10.8 5.0 - 13.0 % 10/22/2019 10:47 AM [facility] Eosinophils % 1.0 0.0 - 6.0 % 10/22/2019 10:47 AM [facility] Basophils % 0.7 0.0 - 2.0 % 10/22/2019 10:[address] [facility] Immature Granulocytes 1.0 0 - 1 % 10/22/2019 10:[address] [facility] Neutrophil Absolute 6.16 2.01 - 7.14 x10E9/L 10/22/2019 10:[address] [facility] Lymphocytes Absolute 1.96 1.07 - 3.94 x10E9/L 10/22/2019 10:[address] [facility] Monocytes Absolute 1.01 0.26 - 1.07 x10E9/L 10/22/2019 10:[address] [facility] Eosinophils Absolute 0.09 0 - 0.47 x10E9/L 10/22/2019 10:[address] [facility] Basophils Absolute 0.07 0 - 0.08 x10E9/L 10/22/2019 10:[address] [facility] Immature Granulocytes Absolute 0.09(H) 0.00 - 0.06 x10E9/L 10/22/2019 10:[address] [facility] nRBC Auto 0 /100 WBC 10/22/2019 10:[address] [facility] Blood BLOOD SPECIMEN / Unknown Venipuncture / Unknown 10/22/2019 10:34 AM DIRECTOR OF CODING 10/22/2019 10:43 AM [facility] Coreen Tripp PHYSICIAN PRACTICE COORDINATOR-SENIOR SOFTWARE DEVELOPMENT MANAGER LAB - [place] TOLOGY ORDERABLES [facility] [address] [place] [id number] * COMPREHENSIVE METABOLIC PANEL (10/22/2019 10:34 AM [facility]) [facility] Glucose 93 70 - 105 mg/dL 10/22/2019 11:[address] [facility] Sodium 139 136 - 145 mmol/L 10/22/2019 11:[address] [facility] Potassium 3.7 3.5 - 4.7 mmol/L 10/22/2019 11:[address] [facility] Chloride 104 98 - 107 mmol/L 10/22/2019 11:[address] [facility] CO2 24 23 - 31 mmol/L 10/22/2019 11:[address] [facility] Calcium 9.8 8.4 - 10.4 mg/dL 10/22/2019 11:[address] [facility] Anion Gap 11 8 - 16 mmol/L 10/22/2019 11:[address] [facility] BUN 15 8.4 - 25.7 mg/dL 10/22/2019 11:[address] [facility] Creatinine 0.79 0.72 - 1.25 mg/dL 10/22/2019 11:[address] [facility] Alkaline Phosphatase 113 40 - 150 U/L 10/22/2019 11:[address] [facility] ALT 27 0 - 61 U/L 10/22/2019 11:[address] [facility] AST 19 5 - 34 U/L 10/22/2019 11:[address] [facility] Protein Total 7.3 6.4 - 8.3 gm/dL 10/22/2019 11:[address] [facility] Albumin 4.3 3.2 - 4.6 gm/dL 10/22/2019 11:[address] [facility] Bilirubin Total 0.8 0.2 - 1.2 mg/dL 10/22/2019 11:[address] [facility] eGFR by MDRD >60 >60 mL/min/1.7 3m2 10/22/2019 11:[address] [facility] eGFR by MDRD >60 >60 mL/min/1.7 3m2 10/22/2019 11:[address] [facility] Blood BLOOD SPECIMEN / Unknown 10/22/2019 10:34 AM DIRECTOR OF CODING 10/22/2019 10:43 AM DIRECTOR OF CODING Coreen Tripp APRN-SENIOR SOFTWARE DEVELOPMENT MANAGER LAB - CHEM ISTRY ORDERABLES Performing Organization Address City/State/[facility] Co de Phone Number [facility] [address] [place] [address] * CULTURE MSSA/MRSA (10/22/2019 10:34 AM DIRECTOR OF CODING) Culture Negative for Staphylococcus aureus (MRSA/MSSA) 10/24/2019 8:12 AM DIRECTOR OF CODING [facility] Microbiology SPECIMEN FROM NASAL FOSSAE / Unknown Collection / Unknown 10/22/2019 10:34 AM DIRECTOR OF CODING 10/22/2019 10:42 AM DIRECTOR OF CODING Coreen Tripp PHYSICIAN PRACTICE COORDINATOR-SENIOR SOFTWARE DEVELOPMENT MANAGER LAB - MICR OBIOLOGY ORDERABLES [facility] [address] [place], [place] [address], [facility] [phone] documented in this encounter Visit Diagnoses Diagnosis Preop examination- Primary Preoperative examination, unspecified Irregular heart rhythm Cardiac dysrhythmia, unspecified Atrial fibrillation, unspecified type (HCC) documented in this encounter
--- OUTSIDE RECORDS SUMMARY | 2024-10-05 02:46 | XMS_ITS | Encounter Summary ---
Author Organization [facility] - [facility] Address [address] [place] [address]. [place], [place] [id number] [place] [address] Care Team Providers Care Groundman Name Role Phone Gianluca Price MD Primary Care Provider [phone] Reason for Visit * Reason Onset Date Comments Information 04/04/2022 Encounter Details Date Type Department Care Team (Late st Contact Info) Description 04/04/2022 Telephone [facility] Medical [facility] Multispecialty Care - [facility] [address] [facility] [address] [place] [address] Shola Cunha MD 3 [facility] [address] [place] [address] Information Social History Tobacco Use Types Packs/Day Years Used Date Smoking Tobacco: Never Smokeless Tobacco: Never Alcohol Use Standard Drinks/Week Comments No 0 (1 standard drink = 0.6 oz pur e alcohol) AUDIT-C Answer Date Recorded Frequency of Alcohol Consumption Never 09/05/2018 Average Number of Drinks Not on file 018 Frequency of Binge Drinking Not on file 08/09 PHQ-2 Answer Date Recorded PHQ-2 Score - If the patient scores above 3, please move on to questions 3-9 0 2020 Sex and Gender Information Value Date Recorded Sex Assigned at Not on file Legal Sex Male 9:31 PM CDT Gender Identity Not on file Sexual Orientation Not on file documented as of this encounter Progress Notes * Shola Cunha MD - 04/04/2022 1:04 PM CDT Let him know he needs to follow up in December 2022 for compliance, required by insurance. Shola Cunha MD * Raegan Downey MA - 04/04/2022 12:07 PM CDT FYI * Kia Lopez - 04/04/2022 11:05 AM CDT Du stated that he is doing great with his new CPAP. No follow up needed. documented in this encounter Plan of Treatment Upcoming Encounters Date Type Department Care Team (Late st Contact Info) Description 01/13/2025 11:00 AM CDT Office Visit [facility] Pul[facility]ology Specialty Clinic - [address] [place] [address] Shola Cunha MD 3 [facility] [address] [place] [address] documented as of this encounter Visit Diagnoses Not on filedocumented in this encounter Care Teams Groundman Relationship Specialty Start Date End Date Gianluca Price MD 2043 [facility] [address] [place] [id number] PCP - General INTERNAL MEDICINE 09/04/18 documented as of this encounter
--- OUTSIDE RECORDS SUMMARY | 2024-10-05 02:46 | XMS_ITS | Encounter Summary ---
Author Organization [facility] Address [address] [place] [address]. [place], [place] [address] [place] [address] Care Team Providers Care Director Of Promotions Name Role Phone Gianluca Price MD Primary Care Provider [phone] Reason for Visit * Reason Comments Obstructive Sleep Apnea CPAP @ 11 cm Pro vider Plus * Consultation/Treatment (Routine) - Closed Specialty Diagnoses / Procedures Referred By Contac t Referred To Contact Internal Medicine Pulmonary Disease / SLEEP & RESPIRATORY CARE Diagnoses PHILLIP (obstructive sleep apnea) PHILLIP Procedures FOLLOW UP Gianluca Price MD 2043 [facility] 23 [place] [address] Phone: tel: fax: Shola Cunha MD [address] [place] [address] Phone: tel: fax: Referral ID Status Reason Start Date Expiration Date Visits Re quested Visits Authorized [id number] Closed 12/31/2020 06/29/2021 6 6 Encounter Details Date Type Department Care Team (Latest Contact Info) Description 2020 10:20 AM CDT Office Visit [facility] Medical Group Multispecialty Care - [address] [place] [address] Shola Cunha MD 3 [facility] [address] [place] [address] Obstructive Sleep Apnea (CPAP @ 11 cm Provider Plus ) Social History Tobacco Use Types Packs/Day Years Used Date Smoking Tobacco: Never Smokeless Tobacco: Never Tobacco Cessation:Counseling Given: Yes Alcohol Use Standard Drinks/Week Comments No 0 [...] on file Sexual Orientation Not on file COVID-19 Exposure Response Date Recorded In the last month, have you been in contact with someone who was confirmed or suspected to have Coronavirus / COVID-19? No / Unsure 2020 10:05 AM CDT documented as of this encounter Last Filed Vital Signs Vital Sign Reading Time Taken Comments Blood Pressure 122/72 2020 10:16 AM CDT Pulse 103 2020 10:16 AM CDT Temperature 36.8 ??C (98.2 ??F) 2020 10:16 AM C DT Respiratory Rate 16 2020 10:16 AM CDT Oxygen Saturation 98% 2020 10:16 AM CDT Inhaled Oxygen Concentration - - Weight 156.5 kg (345 lb) 2020 10:16 AM CDT Height 193 cm (6' 4 ) 2020 10:16 AM CDT Body Mass Index 41.99 2020 10:16 AM CDT documented in this encounter Patient Instructions * Patient Instructions* Shola Cunha MD - 2020 10:20 AM CDT -Continue using CPAP nightly -Change of the mask straps, tubing every 3 to 6 months -Use distilled water -Follow-up in 1 year documented in this encounter Progress Notes * Shola Cunha MD - 2020 10:20 AM CDT [facility] PULMONARY MEDICINE History Chief Complaint Patient presents with ??? Obstructive Sleep Apnea CPAP @ 11 cm Provider Plus Referring provider: Gianluca Price MD 2020 OV: He is using his CPAP nightly. Denies any issues. No problems with the mask, straps, tubing. Feels well rested and is able to stay awake easily during the day. No respiratory symptoms. 09/15/2020 OV: Du Anderson is a 65-year-old male with a past medical history of obstructive sleep apnea on CPAP, hypertension, coronary artery disease who follows up today for obstructive sleep apnea. Overall, he says that he is been doing well. He uses his CPAP every single night. He wakes up feeling refreshed. No issues falling asleep or dozing off during the day. He typically goes to bed PM and wakes up around 8:52 AM. He may wake up a few times at night to adjust his mask. He thinks that he has lost a little bit of weight. Continues to use distilled water. He is a never smoker. 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 No significant respiratory exposures that he is aware of. He does have a cat at home. No birds. Denies any respiratory symptoms including cough, dyspnea, phlegm production. Past Medical History: Diagnosis Date ??? CAD (coronary artery disease) ??? Hypertension ??? Obesity ??? PHILLIP on CPAP Past Surgical History: Procedure Laterality Date ??? BACK SURGERY ??? CARDIAC CATHETERIZATION ??? CARPAL TUNNEL RELEASE ??? REPLACEMENT TOTAL KNEE ??? TOTAL HIP ARTHROPLASTY 12/2019 right Social History Tobacco Use ??? Smoking status: Never Smoker ??? Smokeless tobacco: Never Used Substance Use Topics ??? Alcohol use: No Frequency: Never ??? Drug use: No Family History Problem Relation Name Age of Onset ??? Heart Disease Father Current Outpatient Medications Medication Sig Dispense Refill ??? allopurinol 300 MG tablet Take 300 mg by mouth daily. ??? amlodipine 5 MG tablet Take 5 mg by mouth daily. ??? apixaban (ELIQUIS) 5 MG tablet Eliquis 5 mg tablet ONE TABLET BID ??? aspirin 81 MG tablet Take 81 mg by mouth daily. ??? atorvastatin 40 MG tablet Take 40 mg by mouth daily. ??? carvedilol 6.25 MG tablet Take 6.25 mg by mouth 2 (two) times daily. ??? clopidogrel 75 MG tablet Take 75 mg by mouth daily. ??? CPAP MACHINE CPAP11 CM HS use while [id number], VentrapragadaActive ??? fenofibrate 145 MG tablet Take 145 mg by mouth daily. ??? furosemide 20 MG tablet Take 20 mg by mouth 2 (two) times daily. ??? hydrochlorothiazide 25 MG tablet Take 25 mg by mouth every morning. ??? potassium chloride CR 20 MEQ tablet TAKE 1 TABLET BY MOUTH TWO TIMES DAILY ??? quinapril (ACCUPRIL) 40 MG tablet Take 40 mg by mouth daily. ??? spironolactone 25 MG tablet spironolactone 25 mg tablet No current facility-administered medications for this visit. Allergies Allergen Reactions ??? Rosuvastatin Myalgias Immunization History Administered Date(s) Administered ??? Fluzone 6 Months+ (0.5 mL Prefilled Syringe IIV4) 06/27/2020 ??? Influenza Adult (Generic) 09/05/2018, 06/27/2020 ??? MODERNA COVID-19, mRNA, LNP-S, PF, 100 mcg/ 0.5 mL dose 12/08/2020 ??? Tdap (Generic) 08/22/2015 ??? Zoster (Zostavax) 27086 Unt/0.65Ml 12/03/2018, 04/15/2019 Review of Systems Constitutional: Negative for chills, fever and weight loss. HENT: Negative for ear pain, hearing loss and nosebleeds. Eyes: Negative for blurred vision, double vision and redness. Respiratory: Negative for cough, hemoptysis, sputum production, shortness of breath and wheezing. Cardiovascular: Negative for chest pain, palpitations, orthopnea, leg swelling and PND. Gastrointestinal: Negative for heartburn, nausea and vomiting. Genitourinary: Negative for dysuria, frequency and urgency. Musculoskeletal: Negative for myalgias. Skin: Negative for rash. Neurological: Negative for dizziness, tingling and headaches. Endo/Heme/Allergies: Does not bruise/bleed easily. Psychiatric/Behavioral: Negative for depression and suicidal ideas. Physical Exam Filed Vitals: 12/28/20 1016 BP: 122/72 Pulse: 103 Resp: 16 Temp: 98.2 ??F (36.8 ??C) TempSrc: Temporal SpO2: 98% Weight: (!) 156.5 kg (345 lb) Height: 6' 4 (1.93 m) Body mass index is 41.99 kg/m??. Physical Exam: General: Alert, pleasant, in NAD Neuro: Alert, appropriate Psych: Affect normal Head: NC, AT EENT: No Sinus tenderness to palpation, mallampati 3 Neck: Supple Lymph: No appreciable cervical lymphadenopathy Respiratory: non-labored, ctab, no wheezes/crackles, unchanged Cardiovascular: s1,s2, rrr, no audible murmur GI: non-distended, bs+ Musc: Bilateral wrist ROM wnl Ext: no edema, no clubbing Skin: No visible rashes, No visible tattoos Sleep Studies: 06/02/2003 split-night polysomnography Diagnostic portion RDI 116.3/h. CPAP at pressure 9 cm H2O was effective Pertinent Labs Reviewed [place] Sleepiness Scale Score: [facility] AMB EPWORTH SCORE 09/02/2019 Total score 0 CPAP compliance 09/15/2020 CPAP compliance reviewed. 100% use over the last 90 days. Average time 8 hours and 31 minutes. Set pressure 11 cm H2O. 95th percentile for leak is 116.6 L/min. AHI 6.3/h. 2020 reviewed. 100% use over the last 90 days. Average time 8 hours and 27 minutes. Set pressure 11 cm H2O. AHI 5.9/h Assessment 1. Obstructive sleep apnea on CPAP 2. Elevated BMI 3. Hypertension 4. Coronary artery disease Plan -Continue CPAP at 11 cm H2O, he has demonstrated good compliance and will continue to benefit from its use -Continue to change the mask, straps, tubing every 3 to 6 months -Use distilled water -Continue to work on weight loss Return in about 1 year (around 2021). Shola Cunha MD I spent over 20 minutes today reviewing the patient's medical record, obtaining history, performingan exam, documenting in the medical record and counseling and educating the patient/family/caregiver. documented in this encounter Plan of Treatment Upcoming Encounters Date Type Department Care Team (Late st Contact Info) Description 01/13/2025 11:00 AM CDT Office Visit [facility] Medical Group Pulmonology Specialty Clinic - [address] [place] [address] Shola Cunha MD 3 [facility] [address] [place] [address] documented as of this encounter Visit Diagnoses Diagnosis PHILLIP (obstructive sleep apnea)- Primary Obstructive sleep apnea (adult) (pediatric) BMI 40.0-44.9, adult ([facility]) Body Mass Index 40.0-44.9, adult CPAP (continuous positive airway pressure) dependence Dependence on other enabling machine documented in this encounter Care Teams Director Of Promotions Relationship Specialty Start Date End Date Gianluca Price MD 2043 [facility] [address] [place] [address] PCP - General INTERNAL MEDICINE 09/04/18 documented as of this encounter
--- OUTSIDE RECORDS SUMMARY | 2024-10-05 02:46 | XMS_ITS | Encounter Summary ---
Author Organization [facility] Address [address] [place] [address]. [place], [place] [address] [place] [address] Care Team Providers Care Shaft Repairer Name Role Phone Gianluca Price MD Primary Care Provider [phone] Encounter Details Date Type Department Care Team (Latest Contact Info) Description 04/25/2021 Scan HEALTH INFO SRVCS Scanned, Documents Social History Tobacco Use Types Packs/Day Years [...] as of this encounter Plan of Treatment Upcoming Encounters Date Type Department Care Team (Late st Contact Info) Description 01/13/2025 11:00 AM CDT Office Visit [facility] Medical Group Pulmonology Specialty Clinic - [address] [place] [address] Shola Cunha MD [address] [place] [address] documented as of this encounter Visit Diagnoses Not on filedocumented in this encounter Care Teams Shaft Repairer Relationship Specialty Start Date End Date Gianluca Price MD [address] [address] PCP - General INTERNAL MEDICINE 09/04/18 documented as of this encounter
--- OUTSIDE RECORDS SUMMARY | 2024-10-05 02:46 | XMS_ITS | Encounter Summary ---
Author Organization [facility] Address [address] [place] [address]. [place], [place] [address] [place] [address] Care Team Providers Care Iron Melter Name Role Phone Gianluca Price MD Primary Care Provider [phone] Reason for Visit * Reason Comments Sleep Study (SCAN) Encounter Details Date Type Department [facility] Team [facility] Description 10/03/2021 Scan HEALTH INFO SRVCS Scanned, Documents Sleep Study (SCAN) Social History Tobacco Use Types Packs/Day Years [...] Exposure Response Date Recorded In the last 10 days, have yo u been in contact with someone who was confirmed or suspected to have Coronavirus/COVID-19? No / Unsure 01/02/2022 10:16 AM CDT documented as of this encounter Plan of Treatment Upcoming Encounters Date Type Department Care Team ([facility] Contact Info) Description 01/13/2025 11:00 AM CDT Office Visit [facility] Pulmonology Specialty Clinic - [address] [place] [address] Shola Cunha MD 3 [facility] [address] [place] [address] documented as of this encounter Procedures Procedure Name Priority Date/Time Associated Diagnosis Comments SLEEP STUDY GENERIC (SCAN ORDER) 10/03/2021 documented in this encounter Results * SLEEP STUDY GENERIC (10/03/2021) 10/03/2021 Narrative 10/03/2021 Ordered by an unspecified provider. us Documents Scanned SCANNING Final Result documented in this encounter Visit Diagnoses Not on filedocumented in this encounter Care Teams Iron Melter Relationship Specialty Start Date End Date Gianluca Price MD [facility] [address] [place] [id number] PCP - General INTERNAL MEDICINE 09/04/18 documented as of this encounter
--- OUTSIDE RECORDS SUMMARY | 2024-10-05 02:46 | XMS_ITS | Encounter Summary ---
Author Organization [facility] Address [address] [place] [address]. [place], [place] [address] [place] [address] Care Team Providers Care Records Manager Name Role Phone Gianluca Price MD Primary Care Provider [phone] Reason for Visit * Reason Comments Obstructive Sleep Apnea CPAP @ 11 cm Pro vider Plus Encounter Details Date Type Department Care Team (Latest Contact Info) Description 09/15/2020 9:00 AM JUKEBOX CHECKER Office Visit [facility] Medical [facility] Multispecialty Care - [address] [place] [address] Calista Gilmore MD 3 [facility] [address] [place] [address] Obstructive Sleep Apnea (CPAP @ 11 cm [...] of Binge Drinking Not on file 08/09 Sex and Gender Information Value Date Recorded Sex Assigned at Not on file Legal Sex Male 9:31 PM CDT Gender Identity Not on file Sexual Orientation Not on file COVID-19 Exposure Response Date Recorded In the last month, have you been in contact with someone who was confirmed or suspected to have Coronavirus / COVID-19? No / Unsure 09/15/2020 8:54 AM JUKEBOX CHECKER documented as of this encounter Last Filed Vital Signs Vital Sign Reading Time Taken Comments Blood Pressure 122/72 09/15/2020 9:12 AM JUKEBOX CHECKER Pulse 79 09/15/2020 9:12 AM JUKEBOX CHECKER Temperature 36.6 ??C (97.9 ??F) 09/15/2020 9:12 AM CS T Respiratory Rate 16 09/15/2020 9:12 AM JUKEBOX CHECKER Oxygen Saturation 97% 09/15/2020 9:12 AM JUKEBOX CHECKER Inhaled Oxygen Concentration - - Weight 146.1 kg (322 lb) 09/15/2020 9:12 AM JUKEBOX CHECKER Height 193 cm (6' 4 ) 09/15/2020 9:12 AM JUKEBOX CHECKER Body Mass Index 39.2 09/15/2020 9:12 AM JUKEBOX CHECKER documented in this encounter Patient Instructions * Patient Instructions* Calista Gilmore MD - 09/15/2020 9:00 AM JUKEBOX CHECKER -Work on weight loss -We will have your mask refit to try to fix leak BOX CHECKER documented in this encounter Progress Notes * Calista Gilmore MD - 09/15/2020 9:00 AM CSTAddended by: CALISTA GILMORE on: 09/21/2020 11:02 AM Modules accepted: Level of Service BOX CHECKER * Calista Gilmore MD - 09/15/2020 9:00 AM CST [facility] PULMONARY MEDICINE History Chief Complaint Patient presents with ??? Obstructive Sleep Apnea CPAP @ 11 cm Provider Plus Referring provider: Gianluca Price MD Du Anderson is a 64-year-old male with a past medical history of obstructive sleep apnea on CPAP, hypertension, coronary artery disease who follows up today for obstructive sleep apnea. Overall, he says that he is been doing well. He uses his CPAP every single night. He wakes up feeling refreshed. No issues falling asleep or dozing off during the day. He typically goes to bed [id number] PM and wakes up around 8:52 AM. He may wake up a few times at night to adjust his mask. He thinks that he has lost a little bit of weight. Continues to use distilled water. He is a never smoker. 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 No significant respiratory exposures that he is aware of. He does have a cat at home. No birds. Denies any respiratory symptoms including cough, dyspnea, phlegm production. Past Medical History: Diagnosis Date ??? CAD (coronary artery disease) ??? Hypertension ??? Obesity ??? PHILLIP on CPAP Past Surgical History: Procedure Laterality Date ??? BACK SURGERY ??? CARDIAC CATHETERIZATION ??? REPLACEMENT TOTAL KNEE ??? TOTAL HIP [...] Take 5 mg by mouth daily. ??? aspirin 81 MG tablet Take 81 mg by mouth daily. ??? atorvastatin 40 MG tablet Take 40 mg by mouth daily. ??? carvedilol 6.25 MG tablet Take 6.25 mg by mouth 2 (two) times daily. ??? clopidogrel 75 MG tablet Take 75 mg by mouth daily. ??? CPAP MACHINE CPAP11 CM HS use while [id number], VentrapragadaActive ??? fenofibrate 145 MG tablet Take 145 mg by mouth daily. ??? furosemide 20 MG tablet Take 20 mg by mouth 2 (two) times daily. ??? hydrochlorothiazide 25 MG tablet Take 25 mg by mouth every morning. ??? potassium chloride (KLOR-CON 10) 10 MEQ Tab CR tablet Take 10 mEq by mouth daily. ??? quinapril (ACCUPRIL) 40 MG tablet Take 40 mg by mouth daily. ??? spironolactone 25 MG tablet spironolactone 25 mg tablet No current facility-administered medications for this visit. Allergies Allergen Reactions ??? Rosuvastatin Myalgias Immunization History Administered Date(s) Administered ??? Fluzone 6 Months+ (0.5 mL Prefilled Syringe IIV4) 06/27/2020 ??? Influenza Adult (Generic) 09/05/2018, 06/27/2020 ??? Tdap (Generic) 08/22/2015 ??? Zoster (Zostavax) [id number] Unt/0.65Ml 12/03/2018, 04/15/2019 Review of Systems Constitutional: [...] and suicidal ideas. Physical Exam Filed Vitals: 09/15/20 0912 BP: 122/72 Pulse: 79 Resp: 16 Temp: 97.9 ??F (36.6 ??C) TempSrc: Temporal SpO2: 97% Weight: (!) 146.1 kg (322 lb) Height: 6' 4 (1.93 m) Body mass index is 39.2 kg/m??. Physical Exam: General: Alert, pleasant, in NAD Neuro: Alert, appropriate Psych: Affect normal Head: NC, AT EENT: No Sinus tenderness to palpation, mallampati 3 Neck: Supple Lymph: No appreciable cervical lymphadenopathy Respiratory: non-labored, ctab, no wheezes/crackles Cardiovascular: s1,s2, rrr, no audible murmur GI: non-distended, bs+ Musc: Bilateral wrist ROM wnl Ext: no edema, no clubbing Skin: No visible rashes, No visible tattoos Sleep Studies: 06/02/2003 split-night polysomnography Diagnostic portion RDI 116.3/h. CPAP at pressure 9 cm H2O was effective Pertinent Labs Reviewed [place] Sleepiness Scale Score: [facility] AMB EPWORTH SCORE 09/02/2019 Total score 0 09/15/2020 CPAP compliance reviewed. 100% use over the last 90 days. Average time 8 hours and 31 minutes. Set pressure 11 cm H2O. 95th percentile for leak is 116.6 L/min. AHI 6.3/h. Assessment 1. Obstructive sleep apnea on CPAP 2. Elevated BMI 3. Hypertension 4. Coronary artery disease Plan -Continue CPAP at 11 cm H2O, he has demonstrated good compliance and will continue to benefit from its use -We will asked provider plus to reach out to him to refit his mask and try to correct leak, prior to adjusting pressure, fixing leak may improve AHI -Continue to change the mask, straps, tubing every 3 to 6 months -Use distilled water -Continue to work on weight loss Return in about 3 months (around 12/14/2020). Calista Gilmore MD BOX CHECKER documented in this encounter Plan of Treatment Upcoming Encounters Date Type Department Care Team (Late st Contact Info) Description 01/13/2025 11:00 AM CDT Office Visit [facility] Medical Group Pulmonology Specialty Clinic - [address] [place] [address] Calista Gilmore MD 3 [facility] [address] [place] [address] documented as of this encounter Visit Diagnoses Diagnosis PHILLIP (obstructive sleep apnea)- Primary Obstructive sleep apnea (adult) (pediatric) BMI 40.0-44.9, adult ([facility]) Body Mass Index 40.0-44.9, adult CPAP (continuous positive airway pressure) dependence Dependence on other enabling machine documented in this encounter Care Teams Records Manager Relationship Specialty Start Date End Date Gianluca Price MD 2043 [facility] [address] [place] [id number] PCP - General INTERNAL MEDICINE 09/04/18 documented as of this encounter
--- OUTSIDE RECORDS SUMMARY | 2024-10-05 02:46 | XMS_ITS | Encounter Summary ---
Author Organization [facility] Address [address] [place] [address]. [place], [place] [address] [place] [address] Care Team Providers Care Forming Department End Finder Name Role Phone Gianluca Price MD Primary Care Provider [phone] Encounter Details Date Type Department Care Team (Latest Contact Info) Description 12/20/2023 Travel Social History Tobacco Use Types Packs/Day Years Used Date Smoking Tobacco: Never Smokeless Tobacco: Never Alcohol Use Standard Drinks/Week Comments No 0 (1 standard drink = 0.6 oz pur e alcohol) AUDIT-C Answer Date Recorded Frequency of Alcohol Consumption Never 09/05/2018 Average Number of Drinks Not on file 018 Frequency of Binge Drinking Not on file 08/09 PHQ-2 Answer Date Recorded Patient Health Questionnaire-2 Score 0 12/20/2023 Sex and Gender Information Value Date Recorded Sex Assigned at Not on file Legal Sex Male 9:31 PM CDT Gender Identity Not on file Sexual Orientation Not on file documented as of this encounter Plan of Treatment Upcoming Encounters Date Type Department Care Team (Late st Contact Info) Description 01/13/2025 11:00 AM CDT Office Visit [facility] Medical Group Pulmonology Specialty Clinic - [address] [place] [address] Shola Cunha MD [address] [place] [address] [place] [address] documented as of this encounter Visit Diagnoses Not on filedocumented in this encounter Care Teams Forming Department End Finder Relationship Specialty Start Date End Date Gianluca Price MD [address] [phone] PCP - General INTERNAL MEDICINE 09/04/18 documented as of this encounter
--- OUTSIDE RECORDS SUMMARY | 2024-10-05 02:46 | XMS_ITS | Encounter Summary ---
Author Organization [facility] Address [address] [place] [address]. [place], [place] [address] [place] [address] Care Team Providers Care Manager English Name Role Phone Gianluca Price MD Primary Care Provider Reason for Visit * Reason Onset Date Comments Reschedule 12/10/2023 Encounter Details Date Type Department Care Team (Late st Contact Info) Description 12/10/2023 Telephone [facility] Multispecialty Care - [facility] [address] [facility] [address] [place] [address] Shola Cunha MD 3 [facility] [address] [place] [address] Reschedule Social History Tobacco Use Types Packs/Day Years [...] Date Recorded Patient Health Questionnaire-2 Score 0 01/02/2023 Sex and Gender Information Value Date Recorded Sex Assigned at Not on file Legal Sex Male 9:31 PM CDT Gender Identity Not on file Sexual Orientation Not on file documented as of this encounter Progress Notes * Balta Chirinos, Nurse Student - 12/10/2023 2:03 PM CST LVM to patient... I have been unable to reach this patient by phone. A letter is being sent to the last known home address to reschedule your 01/08/24 appointment ENTER GENERAL documented in this encounter Plan of Treatment Upcoming Encounters Date Type Department Care Team (Late st Contact Info) Description 01/13/2025 11:00 AM CDT Office Visit [facility] - [address] [place] [address] Shola Cunha MD 3 [facility] [address] [place] [address] documented as of this encounter Visit Diagnoses Not on filedocumented in this encounter Care Teams Manager English Relationship Specialty Start Date End Date Gianluca Price MD 2043 [facility] 23 [place] [phone] PCP - General INTERNAL MEDICINE 09/04/18 documented as of this encounter
--- OUTSIDE RECORDS SUMMARY | 2024-10-05 02:46 | XMS_ITS | Encounter Summary ---
Author Organization [facility] Address [address] [place] [address]. [place], [place] [address] [place] [address] Care Team Providers Care Supervisor Prepress Name Role Phone Gianluca Price MD Primary Care Provider [phone] Encounter Details Date Type Department Care Team (Latest Contact Info) Description 2020 Travel Social History Tobacco Use Types Packs/Day [...] Description 01/13/2025 11:00 AM CDT Office Visit [facility] - [address] [place] [address] Shola Cunha MD 3 [place] [address] [place] [address] documented as of this encounter Visit Diagnoses Not on filedocumented in this encounter Care Teams Supervisor Prepress Relationship Specialty Start Date End Date Gianluca Price MD 4 [facility] 23 [place] [phone] PCP - General INTERNAL MEDICINE 09/04/18 documented as of this encounter
--- OUTSIDE RECORDS SUMMARY | 2024-10-05 02:46 | XMS_ITS | Encounter Summary ---
Author Organization [facility] Address [address] [place] [address]. [place], [place] [address] [place] [address] Care Team Providers Care Air Brakes Inspector Name Role Phone Gianluca Price MD Primary Care Provider [phone] Encounter Details Date Type Department Care Team (Latest Contact Info) Description 01/02/2022 Scan HEALTH INFO SRVCS Scanned, Documents Social [...] Description 01/13/2025 11:00 AM CDT Office Visit [facility] - [address] [place], [place] [phone] Shola Cunha MD 3 [facility] 5000 [place] [address] documented as of this encounter Visit Diagnoses Not on filedocumented in this encounter Care Teams Air Brakes Inspector Relationship Specialty Start Date End Date Gianluca Price MD [address] [facility] 23 [place] [address] PCP - General INTERNAL MEDICINE 09/04/18 documented as of this encounter
--- OUTSIDE RECORDS SUMMARY | 2024-10-05 02:46 | XMS_ITS | Encounter Summary ---
Author Organization [facility] Address [address] [place] [address]. [place], [place] [address] [place] [address] Care Team Providers Care Local Owner Operator Truck Driver Name Role Phone Gianluca Price MD Primary Care Provider [phone] Reason for Visit * Reason Onset Date Comments Record Request 01/22/2024 Encounter Details Date Type Department Care Team (Late st Contact Info) Description 01/22/2024 Telephone [facility] Medical [facility] Multispecialty Care - [facility] [address] [facility] [address] [place] [address] Shola Cunha MD 3 [facility] [address] [place] [address] Record Request Social History Tobacco Use Types Packs/Day Years [...] as of this encounter Progress Notes * Marcel De León MA - 01/24/2024 9:24 AM CDT Information sent per pt request * Balta Chirinos MA - 01/23/2024 2:53 PM CDT Called pt no answer voice mail left. * Balta Chirinos MA - 01/22/2024 1:51 PM CDT Called pt at this time no answer voice mail left. * Sydney Yin - 01/22/2024 1:37 PM CDT Patient call with fax # [phone]. Dr Lang * Juliann Mendez - 01/22/2024 1:27 PM CDT Pt has requested a copy of his most recent OV and sleep study to provide his employer. He is to call back to provide the information for the office. documented in this encounter Plan of Treatment Upcoming Encounters Date Type Department Care Team (Late st Contact Info) Description 01/13/2025 11:00 AM CDT Office Visit [facility] Medical [facility] Pul[facility]ty [facility] - [place] [address] [place] [address] Shola Cunha MD [address] [place] [address] documented as of this encounter Visit Diagnoses Not on filedocumented in this encounter Care Teams Local Owner Operator Truck Driver Relationship Specialty Start Date End Date Gianluca Price MD [address] [address] PCP - General INTERNAL MEDICINE 09/04/18 documented as of this encounter
--- OUTSIDE RECORDS SUMMARY | 2024-10-05 02:46 | XMS_ITS | Encounter Summary ---
Author Organization [facility] Address [address] [place] [address]. [place], [place] [address] [place] [address] Care Team Providers Care Airline Radio Operator Name Role Phone Gianluca Price MD Primary Care Provider [phone] Encounter Details Date Type Department Care Team (Latest Contact Info) Description 09/15/2020 Travel Social History Tobacco Use Types Packs/Day [...] COVID-19? No / Unsure 09/15/2020 8:54 AM NITRATING ACID MIXER documented as of this encounter Plan of Treatment Upcoming Encounters Date Type Department Care Team (Late st Contact Info) Description 01/13/2025 11:00 AM CDT Office Visit [facility] Medical [facility] Pul[facility] Specialty Clinic - [address] [place] [address] Shola Cunha MD [address] [place] [address] documented as of this encounter Visit Diagnoses Not on filedocumented in this encounter Care Teams Airline Radio Operator Relationship Specialty Start Date End Date Gianluca Price MD [address] [address] PCP - General INTERNAL MEDICINE 09/04/18 documented as of this encounter
--- OUTSIDE RECORDS SUMMARY | 2024-10-05 02:46 | XMS_ITS | Encounter Summary ---
Author Organization [facility] Address [address] [place] [address]. [place], [place] [address] [place] [address] Care Team Providers Care Practicing Dermatologist Name Role Phone Gianluca Price MD Primary Care Provider [phone] Encounter Details Date Type Department Care Team (Latest Contact Info) Description 01/02/2022 Travel Social History Tobacco Use Types Packs/Day [...] Description 01/13/2025 11:00 AM CDT Office Visit [facility] Pul[facility]ty Clinic - [address] [place] [address] Shola Cunha MD 3 [facility] [address] [place] [address] documented as of this encounter Visit Diagnoses Not on filedocumented in this encounter Care Teams Practicing Dermatologist Relationship Specialty Start Date End Date Gianluca Price MD 2043 [facility] 23 [place] [phone] PCP - General INTERNAL MEDICINE 09/04/18 documented as of this encounter
--- OUTSIDE RECORDS SUMMARY | 2024-10-05 02:46 | XMS_ITS | Encounter Summary ---
Author Organization [facility] Address [address] [place] [address]. [place] [id number] [place] [address] Care Team Providers Care Brand Engineer Name Role Phone Gianluca Price MD Primary Care Provider [phone] Reason for Visit * Reason Comments Sleep Study (SCAN) Encounter Details Date Type Department Care Team ([facility] Contact Info) Description 01/01/2023 Scan HEALTH INFO SRVCS Scanned, Doc Med Group Sleep Study (SCAN) Social History Tobacco Use [...] suspected to have Coronavirus/COVID-19? No / Unsure 01/02/2023 10:40 AM CDT documented as of this encounter Plan of Treatment Upcoming Encounters Date Type Department Care Team ([facility] Contact Info) Description 01/13/2025 11:00 AM CDT Office Visit [facility] Medical [facility] Pulmonology Specialty Clinic - [address] [place] [address] Shola Cunha MD 3 [facility] 5000 [place] [address] documented as of this encounter Procedures Procedure Name Priority Date/Time Associated Diagnosis Comments SLEEP STUDY GENERIC (SCAN ORDER) 01/01/2023 documented in this encounter Results * SLEEP STUDY GENERIC (01/01/2023) 01/01/2023 us Doc Med Group Scanned SCANNING Final Resu lt documented in this encounter Visit Diagnoses Not on filedocumented in this encounter Care Teams Brand Engineer Relationship Specialty Start Date End Date Gianluca Price MD 2043 [facility] 23 [place] [phone] PCP - General INTERNAL MEDICINE 09/04/18 documented as of this encounter
--- OUTSIDE RECORDS SUMMARY | 2024-10-05 02:46 | XMS_ITS | Encounter Summary ---
Author Organization [facility] Address [address] [place] [address]. [place], [place] [address] [place] [address] Care Team Providers Care Slip Dumper Name Role Phone Gianluca Price MD Primary Care Provider [phone] Encounter Details Date Type Department Care Team (Latest Contact Info) Description 09/02/2019 Scan HEALTH INFO SRVCS Scanned, Documents Social [...] Description 01/13/2025 11:00 AM CDT Office Visit [facility] Medical [facility] Pulmonology Specialty Clinic - [address] [place] [address] Shola Cunha MD 3 [facility] [address] [place] [address] documented as of this encounter Visit Diagnoses Not on filedocumented in this encounter Care Teams Slip Dumper Relationship Specialty [place] [address] [place] [phone] PCP - General INTERNAL MEDICINE 09/04/18 documented as of this encounter
--- OUTSIDE RECORDS SUMMARY | 2024-10-05 02:46 | XMS_ITS | Clinical Summary ---
Author Organization [facility] Address [address] [place] [address]. [place], [place] [address] [place] [address] Care Team Providers Care Armor Reconnaissance Vehicle Crewman Name Role Phone Gianluca Price MD Primary Care Provider [phone] Allergies Active Allergy Reactions Criticality Noted Date Comments Rosuvastatin Myalgias Medium 06/30/2019 Medications CPAP MACHINE CPAP11 CM HS use while [id number] ohan, VentrapragadaActive Activ e carvedilol 6.25 MG tablet Take 1 tablet (6.25 mg total) by mouth 2 (two) times daily. Active fenofibrate 145 MG tablet Take 1 tablet (145 mg total) by mouth daily. Ac tive clopidogrel 75 MG tablet Take 1 tablet (75 mg total) by mouth daily. 08/18/20 19 Active allopurinol 300 MG tablet Take 1 tablet (300 mg total) by mouth daily. 07/08/20 19 Active apixaban (ELIQUIS) 5 MG tablet Eliquis 5 mg tablet ONE TABLET BID Active potassium chloride CR 20 MEQ tablet TAKE 1 TABLET BY MOUTH TWO TIMES DAILY 12/09/19 21 Active dapagliflozin (FARXIGA) 10 MG tablet daily. 06/21/20 22 Active sacubitril-va lsartan (ENTRESTO) 24-26 MG tablet Entresto 24 mg-26 mg tablet 03/15/20 22 Active furosemide (LASIX) 80 MG tablet furosemide 80 mg tablet 12/25/19 23 Active atorvastatin (LIPITOR) 80 MG tablet atorvastatin 80 mg tablet 04/19/20 22 Active Cholecalcifer ol 250 MCG (35906 UT) Cap Take 10,000 Units by mouth daily. Active nitroglycerin (NITROSTAT) 0.4 MG SL tablet nitroglycerin 0.4 mg sublingual tablet 06/21/20 22 Active albuterol sulfate HFA 108 (90 Base) MCG/ACT inhaler inhale 2 puffs by mouth every 6 hours 12/11/19 24 Active Active Problems Problem Noted Date Diagnosed Date Status post total hip replacement, left 12/29/19 21 Carpal tunnel syndrome 09/15/2020 Coronary arteriosclerosis 09/15/2020 Enthesopathy of hip region 09/15/2020 Lesion of ulnar nerve 09/15/2020 Olecranon bursitis 09/15/2020 Osteoarthritis of knee 09/15/2020 Pure hypercholesterolemia 09/15/2020 Spinal stenosis of lumbar region 09/15/2020 Impotence 09/15/2020 Low back pain, non-specific 06/08/2020 Overview (09/15/2020): Last Assessment & Plan: Mr. Anderson has recurrent low back pain and neurogenic claudication secondary to adjacent level lumbar stenosis at L2-3. Patient also has a BMI of 39.93. His current weight is 328 lb. We discussed that patient benefit from adjacent level decompression and fusion, but is at high risk for complication given his medical comorbidities and excessive weight. He will need to reduce his weight down to BMI of 35 which weights to weight of 287 lb to become a surgical candidate. He will talk to Dr. Okeefe about options and will research ketogenic diet for weight loss. We discussed this is a hard stop for surgical intervention and that he need to down to this weight to proceed the surgery. I plan to see him back in three months for re-evaluation. Primary osteoarthritis of left hip 12/22/2019 Entrapment of left ulnar nerve 11/25/2018 Entrapment of right ulnar nerve 11/25/2018 CPAP (continuous positive airway pressure) depen dence 12/23/2017 Gout 11/19/2017 Arthralgia of multiple joints 05/07/2017 Obesity 12/25/2016 PHILLIP (obstructive sleep apnea) 12/25/2016 Triple vessel coronary artery disease 11/04/2015 Abnormal cardiovascular stress test 10/19/2015 Hyperlipidemia 10/19/2015 Shortness of breath 10/19/2015 Essential hypertension 10/19/2015 Immunizations Name Administration Dates Next Due COVID-19 Vaccine (Generic) 07/06/2022,01/05/2021 ,12/08/2020 Fluzone 6 Months+ Quad (0.5 mL Prefilled Syringe) 06/27/2020 Influenza (Generic) 07/06/2022 Influenza Adult (Generic) 07/07/2021,06/27/2020, 09/05/2018 MODERNA COVID-19 (12+) MRNA, LNP-S, PF, 100 MCG/ 0.5 ML DOSE 12/08/2020 PFIZER COVID-19 (CHILD 6M-4Y ), MRNA [place]RARIO-SUCROSE, 3 MCG/0.2ML DOSE 08/09/2021 Pneumococcal (Pneumovax 23) 05/04/2022 Pneumococcal (Prevnar 13) 02/21/2021 Tdap (Generic) 08/22/2015 Zoster (Zostavax) 15013 Unt/0.65Ml 04/15/2019, Family History Medical History Relation Comments Heart Disease Father Relation Status Comments Father Social History Tobacco Use Types Packs/Day Years [...] Sign Reading Time Taken Comments Blood Pressure 121/84 12/20/2023 11:31 AM CDT Pulse 85 12/20/2023 11:31 AM CDT Temperature 36.9 ??C (98.4 ??F) 12/20/2023 11:31 AM C DT Respiratory Rate 18 12/20/2023 11:31 AM CDT Oxygen Saturation 97% 12/20/2023 11:31 AM CDT RA Inhaled Oxygen Concentration - - Weight 156.5 kg (345 lb) 12/20/2023 11:31 AM CDT Height 193 cm (6' 4 ) 12/20/2023 11:31 AM CDT Body Mass Index 41.99 12/20/2023 11:31 AM CDT Plan of Treatment Upcoming Encounters Date Type Department Care Team (Late st Contact Info) Description 01/13/2025 11:00 AM CDT Office Visit [facility] Group Pulmonology Specialty Clinic - [address] [place] [address] Shola Cunha MD 3 [facility] [address] [place] [address] Health Maintenance Due Date Last Done Comments ASCVD LDL 1955 Colorectal Cancer Screening Colonoscopy (10 Years) 1955 Hepatitis C 12/27/1973 RSV Immunization or 60+ Years (1 - Risk 60-74 years 1-dose series) 2015 Zoster Vaccines (2 of 3) 06/10/2019 04/15/2019, 11/08 Annual Medicare Wellness Visit 12/27/2020 COVID-19 Vaccine ( season) 2024 07/06/2022, 08/09/2021, 01/05/2021, Additional history exists Influenza Adult (#1) 2024 07/06/2022, 07/07/2021, 06/27/2020, Additional history exists DTaP, Tdap and Td Vaccines (2 - Td or Tdap) 08/22/2025 08/22/2015 Pneumococcal Vaccine: 65+ Years Completed 05/04/2022, 02/21/2021 Meningococcal Vaccine Aged Out No wyatt lynnette eligible based on patient's age to complete this topic RSV Immunizations Under 20 Months Aged Out No longer eligible based on patient's age to complete this topic Insurance [employer] Care Teams Armor Reconnaissance Vehicle Crewman Relationship Specialty Start Date End Date Gianluca Price MD [address] [address] PCP - General INTERNAL MEDICINE 09/04/18
--- OUTSIDE RECORDS SUMMARY | 2024-10-05 02:46 | XMS_ITS | Encounter Summary ---
Author Organization [facility] Address [address] [place] [address]. [place], [place] [address] [place] [address] Care Team Providers Care Mutual Fund Sales Agent Name Role Phone Gianluca Price MD Primary Care Provider [phone] Reason for Visit * Reason Comments Sleep Study (SCAN) Encounter Details Date Type Department Care Team ([facility] Contact Info) Description 12/27/2020 Scan HEALTH INFO SRVCS Scanned, Documents Sleep [...] Upcoming Encounters Date Type Department Care Team ([facility] Contact Info) Description 01/13/2025 11:00 AM CDT Office Visit [facility] Medical [facility] Pulmonology Specialty Clinic - [address] [place] [address] Shola Cunha MD [address] [place] [address] documented as of this encounter Procedures Procedure Name Priority Date/Time Associated Diagnosis Comments SLEEP STUDY GENERIC (SCAN ORDER) 12/27/2020 documented in this encounter Results * SLEEP STUDY GENERIC (12/27/2020) 12/27/2020 Narrative 12/27/2020 Ordered by an unspecified provider. us Documents Scanned SCANNING Final Result documented in this encounter Visit Diagnoses Not on filedocumented in this encounter Care Teams Mutual Fund Sales Agent Relationship Specialty Start Date End Date Gianluca Price MD 2044 [facility] 23 [place] [address] PCP - General INTERNAL MEDICINE 09/04/18 documented as of this encounter
--- OUTSIDE RECORDS SUMMARY | 2024-10-05 02:46 | XMS_ITS | Encounter Summary ---
Author Organization [facility] Address [address] [place] [address]. [place], [place] [address] [place] [address] Care Team Providers Care Buggy Loader Name Role Phone Gianluca Price MD Primary Care Provider [phone] Reason for Visit * Reason Comments Obstructive Sleep Apnea CPAP Encounter Details Date Type Department Care Team (Latest Contact Info) Description 01/02/2023 11:00 AM CDT Office Visit [facility] Medical [facility] Multispecialty Care - [address], [address] [place] [address] Shola Cunha MD 3 [facility] [address] [place] [address] Obstructive Sleep Apnea (CPAP ) Social History Tobacco Use Types Packs/Day [...] Sign Reading Time Taken Comments Blood Pressure 146/87 01/02/2023 10:56 AM CDT Pulse 93 01/02/2023 10:56 AM CDT Temperature 36.3 ??C (97.4 ??F) 01/02/2023 10:56 AM C DT Respiratory Rate 12 01/02/2023 10:56 AM CDT Oxygen Saturation 98% 01/02/2023 10:56 AM CDT Inhaled Oxygen Concentration - - Weight 158.3 kg (349 lb) 01/02/2023 10:56 AM CDT Height 193 cm (6' 4 ) 01/02/2023 10:56 AM CDT Body Mass Index 42.48 01/02/2023 10:56 AM CDT documented in this encounter Patient Instructions * Patient Instructions* Shola Cunha MD - 01/02/2023 11:00 AM CDT - Continue using CPAP nightly - Use distilled water - Change the mask, headgear, tubing every 3 to 6 months - Work on weight loss - Follow-up with me in 1 year documented in this encounter Progress Notes * Shola Cunha MD - 01/02/2023 11:00 AM CDT [facility] PULMONARY MEDICINE History Chief Complaint Patient presents with ??? Obstructive Sleep Apnea CPAP Referring provider: Gianluca Price MD 01/02/2023 OV: Overall no significant issues or changes in his health over the past year. Continues to use his CPAP nightly. Feeling better with the auto settings. 01/02/2022 OV: No significant issues or changes in his health over the past year. He did have a hip replacement. No issues with the CPAP machine. Using it nightly. Finds it to be beneficial. 2020 OV: He is using his CPAP nightly. Denies any issues. No problems with the mask, straps, tubing. Feels well rested and is able to stay awake easily during the day. No respiratory symptoms. 09/15/2020 OV: Du Anderson is a 67-year-old male with a past medical history of obstructive sleep apnea on CPAP, hypertension, coronary artery disease who follows up today for obstructive sleep apnea. Overall, he says that he is been doing well. He uses his CPAP every single night. He wakes up feeling refreshed. No issues falling asleep or dozing off during the day. He typically goes to bed [id number] PM and wakes up around 8:52 AM. He may wake up a few times at night to adjust his mask. He thinks that he has lost a little bit of weight. Continues to use distilled water. He is a never smoker. 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 No significant respiratory exposures that he is [...] History Tobacco Use ??? Smoking status: Never ??? Smokeless tobacco: Never Vaping Use ??? Vaping Use: Never used Substance Use Topics ??? Alcohol use: No ??? Drug use: No Family History Problem Relation Name Age of Onset ??? Heart Disease Father Current Outpatient Medications Medication Sig Dispense Refill ??? allopurinol 300 MG tablet Take 1 tablet (300 mg total) by mouth daily. ??? apixaban (ELIQUIS) 5 MG tablet Eliquis 5 mg tablet ONE TABLET BID ??? atorvastatin (LIPITOR) 80 MG tablet atorvastatin 80 mg tablet ??? carvedilol 6.25 MG tablet Take 1 tablet (6.25 mg total) by mouth 2 (two) times daily. ??? Cholecalciferol 250 MCG (82133 UT) Cap Take 10,000 Units by mouth daily. ??? clopidogrel 75 MG tablet Take 1 tablet (75 mg total) by mouth daily. ??? CPAP MACHINE CPAP11 CM HS use while [id number], VentrapragadaActive ??? dapagliflozin (FARXIGA) 10 MG tablet daily. ??? fenofibrate 145 MG tablet Take 1 tablet (145 mg total) by mouth daily. ??? furosemide (LASIX) 80 MG tablet furosemide 80 mg tablet ??? nitroglycerin (NITROSTAT) 0.4 MG SL tablet nitroglycerin 0.4 mg sublingual tablet ??? potassium chloride CR 20 MEQ tablet TAKE 1 TABLET BY MOUTH TWO TIMES DAILY ??? sacubitril-valsartan (ENTRESTO) 24-26 MG tablet Entresto 24 mg-26 mg tablet No current facility-administered medications for this visit. Allergies Allergen Reactions ??? Rosuvastatin Myalgias Immunization History Administered Date(s) Administered ??? Fluzone 6 Months+ Quad (0.5 mL Prefilled Syringe) 06/27/2020 ??? Influenza Adult (Generic) 09/05/2018, 06/27/2020 ??? MODERNA COVID-19, MRNA, LNP-S, PF, 100 MCG/ 0.5 ML DOSE 12/08/2020 ??? Tdap (Generic) 08/22/2015 ??? Zoster (Zostavax) 24609 Unt/0.65Ml 12/03/2018, 04/15/2019 Review of Systems Constitutional: [...] and suicidal ideas. Physical Exam Filed Vitals: 01/02/23 1056 BP: (!) 146/87 Pulse: 93 Resp: 12 Temp: 97.4 ??F (36.3 ??C) TempSrc: Temporal SpO2: 98% Weight: (!) 158.3 kg (349 lb) Height: 6' 4 (1.93 m) Body mass index is 42.48 kg/m??. Physical Exam: General: Alert, pleasant, in NAD Neuro: Alert, appropriate Psych: Affect normal Head: NC, AT EENT: No Sinus tenderness to palpation, mallampati 3 Neck: Supple Lymph: No appreciable cervical lymphadenopathy Respiratory: No crackles. No wheezing. Cardiovascular: s1,s2, rrr, no audible murmur GI: non-distended, bs+ Musc: Bilateral wrist ROM wnl Ext: no edema, no clubbing Skin: No visible rashes, No visible tattoos Sleep Studies: 06/02/2003 split-night polysomnography Diagnostic portion RDI 116.3/h. CPAP at pressure 9 cm H2O was effective Pertinent Labs Reviewed [place] Sleepiness Scale Score: 09/02/2019 11:07 AM [facility] AMB EPWORTH SCORE Total score 0 CPAP compliance 09/15/2020 CPAP compliance reviewed. 100% use over the last 90 days. Average time 8 hours and 31 minutes. Set pressure 11 cm H2O. 95th percentile for leak is 116.6 L/min. AHI 6.3/h. 2020 reviewed. 100% use over the last 90 days. Average time 8 hours and 27 minutes. Set pressure 11 cm H2O. AHI 5.9/h 01/02/2022 reviewed. 100% use over the last 90 days. Average time 8 hours and 30 minutes. Pressure set at 11 cm H2O. AHI 6.4/h. 01/02/2023 reviewed. 100% use over the last 90 days but average time 8 hours and 7 minutes. Pressureset between 11 and 20 cm H2O. AHI 4.7/h Assessment 1. Obstructive sleep apnea on CPAP 2. Elevated BMI 3. Hypertension 4. Coronary artery disease Plan -Continue auto CPAP 11 to 20 cm H2O. He demonstrates good compliance and will continue to benefit from use -Continue to change the mask, straps, tubing every 3 to 6 months -Use distilled water -Weight loss heavily encouraged Return in about 1 year (around 01/03/2024). Shola Cunha MD documented in this encounter Plan of Treatment Upcoming Encounters Date Type Department Care Team (Late st Contact Info) Description 01/13/2025 11:00 AM CDT Office Visit [facility] - [address] [place] [address] Shola Cunha MD 3 [facility] [address] [place] [address] documented as of this encounter Visit Diagnoses Diagnosis PHILLIP (obstructive sleep apnea)- Primary Obstructive sleep apnea (adult) (pediatric) Class 3 severe obesity due to excess calories without serious comorbidity with body mass index (BMI) of 40.0 to 44.9 in adult ([facility]) CPAP (continuous positive airway pressure) dependence Dependence on other enabling machine documented in this encounter Care Teams Buggy Loader Relationship Specialty Start Date End Date Gianluca Price MD 2044 [facility] [address] [place] [address] PCP - General INTERNAL MEDICINE 09/04/18 documented as of this encounter
--- OUTSIDE RECORDS SUMMARY | 2024-10-05 02:46 | XMS_ITS | Encounter Summary ---
Author Organization [facility] Address [address] [place] [address]. [place], [place] [address] [place] [address] Care Team Providers Care Machine Tool Mechanic Name Role Phone Gianluca Price MD Primary Care Provider [phone] Reason for Visit * Reason Comments Obstructive Sleep Apnea * Consultation/Treatment (Routine) - Authorized Specialty Diagnoses / Procedures Referred By Contac t Referred To Contact Internal Medicine Pulmonary Disease / SLEEP & RESPIRATORY CARE Diagnoses 1 yr PHILLIP Procedures FOLLOW UP Shola Cunha MD [address] [address] Phone: tel: fax: Shola Cunha MD [address] [address] Phone: tel: fax: Referral ID Status Reason Start Date Expiration Date V isits Requested Visits Authorized [id number] Authorized 12/20/2023 12/19/2024 99 99 Encounter Details Date Type Department Care Team (Late st Contact Info) Description 12/20/2023 11:40 AM CDT Office Visit [facility] Group Pulmonology Specialty Clinic - [address] [place] [address] Shola Cunha MD [address] [id number] Obstructive Sleep Apnea Social History Tobacco Use Types Packs/Day Years [...] Mass Index 41.99 12/20/2023 11:31 AM CDT documented in this encounter Patient Instructions * Patient Instructions* Shola Cunha MD - 12/20/2023 11:40 AM CDT Continue using CPAP every single night Use distilled water Change the mask, headgear, tubing every 3 to 6 months Work on weight loss Follow-up with me in 1 year documented in this encounter Progress Notes * Shola Cunha MD - 12/20/2023 11:40 AM CDT [facility] PULMONARY MEDICINE History Chief Complaint Patient presents with Obstructive Sleep Apnea Referring provider: Shola Cunha MD 12/20/2023 OV: No significant issues since his last visit with me. Remains on CPAP, using it nightly. No issues with the machine. Weight is about the same 01/02/2023 OV: Overall no significant issues or [...] the day. He typically goes to bed [id number] PM and wakes up around 8:52 AM. He may wake up a few times at night to adjust his mask. He thinks that he has lost a little bit of weight. Continues to use distilled water. He is a never smoker. 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 No significant respiratory exposures that he is aware of. He does have a cat at home. No birds. Denies any respiratory symptoms including cough, dyspnea, phlegm production. Past Medical History: Diagnosis Date CAD (coronary artery disease) Hypertension Obesity PHILLIP on CPAP Past Surgical History: Procedure Laterality Date BACK SURGERY CARDIAC CATHETERIZATION CARPAL TUNNEL RELEASE REPLACEMENT TOTAL KNEE TOTAL HIP ARTHROPLASTY 12/2019 right Social History Tobacco Use Smoking status: Never Smokeless tobacco: Never Vaping Use Vaping Use: Never used Substance Use Topics Alcohol use: No Drug use: No Family History Problem Relation Name Age of Onset Heart Disease Father Current Outpatient Medications Medication Sig Dispense Refill albuterol sulfate HFA 108 (90 Base) MCG/ACT inhaler inhale 2 puffs by mouth every 6 hours allopurinol 300 MG tablet Take 1 tablet (300 mg total) by mouth daily. apixaban (ELIQUIS) 5 MG tablet Eliquis 5 mg tablet ONE TABLET BID atorvastatin (LIPITOR) 80 MG tablet atorvastatin 80 mg tablet carvedilol 6.25 MG tablet Take 1 tablet (6.25 mg total) by mouth 2 (two) times daily. Cholecalciferol 250 MCG (82411 UT) Cap Take 10,000 Units by mouth daily. clopidogrel 75 MG tablet Take 1 tablet (75 mg total) by mouth daily. CPAP MACHINE CPAP11 CM HS use while [id number], VentrapragadaActive dapagliflozin (FARXIGA) 10 MG tablet daily. fenofibrate 145 MG tablet Take 1 tablet (145 mg total) by mouth daily. furosemide (LASIX) 80 MG tablet furosemide 80 mg tablet nitroglycerin (NITROSTAT) 0.4 MG SL tablet nitroglycerin 0.4 mg sublingual tablet potassium chloride CR 20 MEQ tablet TAKE 1 TABLET BY MOUTH TWO TIMES DAILY sacubitril-valsartan (ENTRESTO) 24-26 MG tablet Entresto 24 mg-26 mg tablet No current facility-administered medications for this visit. Review of patient's allergies indicates: Allergen Reactions Rosuvastatin Myalgias Immunization History Administered Date(s) Administered COVID-19 Vaccine (Generic) 12/08/2020, 01/05/2021, 07/06/2022 Fluzone 6 Months+ Quad (0.5 mL Prefilled Syringe) 06/27/2020 Influenza 07/06/2022 Influenza Adult (Generic) 09/05/2018, 06/27/2020, 07/07/2021 MODERNA COVID-19 (12+) MRNA, LNP-S, PF, 100 MCG/ 0.5 ML DOSE 12/08/2020 BigString COVID-19 (CHILD 6M-4Y), MRNA [place]-SUCROSE, 3 MCG/0.2ML DOSE 08/09/2021 Pneumococcal (Pneumovax 23) 05/04/2022 Pneumococcal (Prevnar 13) 02/21/2021 Tdap (Generic) 08/22/2015 Zoster (Zostavax) 74261 Unt/0.65Ml 12/03/2018, 04/15/2019 Review of Systems Constitutional: [...] and suicidal ideas. Physical Exam Filed Vitals: 12/20/23 1131 BP: 121/84 Pulse: 85 Resp: 18 Temp: 98.4 ??F (36.9 ??C) TempSrc: Temporal SpO2: 97% Weight: (!) 156.5 kg (345 lb) Height: 1.93 m (6' 4 ) Body mass index is 41.99 kg/m??. Physical Exam: General: Alert, pleasant, in NAD Neuro: Alert, appropriate Psych: Affect normal Head: NC, AT EENT: No Sinus tenderness to palpation, mallampati 3 Neck: Supple Lymph: No appreciable cervical lymphadenopathy Respiratory: Normal bilateral breath sounds Cardiovascular: s1,s2, rrr, no audible murmur GI: non-distended, bs+ Musc: Bilateral wrist ROM wnl Ext: no edema, no clubbing Skin: No visible rashes, No visible tattoos Sleep Studies: 06/02/2003 split-night polysomnography Diagnostic portion RDI 116.3/h. CPAP at pressure 9 cm H2O was effective Pertinent Labs Reviewed [place] Sleepiness Scale Score: 09/02/2019 11:07 AM [facility] AMB EPWORTH SCORE Total score 0 CPAP [...] 11 and 20 cm H2O. AHI 4.7/h 12/20/2023 reviewed. 100% use over the past 30 days per average time 8 hours and 33 minutes. Pressure set between 11 and 20 cm H2O. AHI 4.4/h Assessment 1. Obstructive sleep apnea on CPAP 2. Obesity, BMI 41 3. Hypertension 4. Coronary artery disease Plan -Continue auto CPAP 11 to 20 cm H2O. compliance is perfect and he continues to benefit from use -Continue to change the mask, straps, tubing every 3 to 6 months -Use distilled water - Encouraged weight loss efforts today Return in about 1 year (around 12/19/2024). Shola Cunha MD documented in this encounter Plan of Treatment Upcoming Encounters Date Type Department Care Team (Late st Contact Info) Description 01/13/2025 11:00 AM CDT Office Visit [facility] Medical Group Pulmonology Specialty Clinic - [address] [place] [address] Shola Cunha MD [address] [address] documented as of this encounter Visit Diagnoses Diagnosis PHILLIP (obstructive sleep apnea)- Primary Obstructive sleep apnea (adult) (pediatric) Class 3 severe obesity due to excess calories without serious comorbidity with body mass index (BMI) of 40.0 to 44.9 in adult ([facility]) CPAP (continuous positive airway pressure) dependence Dependence on other enabling machine documented in this encounter Care Teams Machine Tool Mechanic Relationship Specialty Start Date End Date Gianluca Price MD 2043 [facility] [address] [place] [id number] PCP - General INTERNAL MEDICINE 09/04/18 documented as of this encounter
--- OUTSIDE RECORDS SUMMARY | 2024-10-05 02:46 | XMS_ITS | Encounter Summary ---
Author Organization [facility] Address [address] [place] [address]. [place], [place] [address] [place] [address] Care Team Providers Care Melter Helper Name Role Phone Gianluca Price MD Primary Care Provider [phone] Encounter Details Date Type Department Care Team (Latest Contact Info) Description 01/02/2023 Travel Social History Tobacco Use Types Packs/Day [...] Description 01/13/2025 11:00 AM CDT Office Visit [facility] Pulmonology Specialty Clinic - [address] [place] [address] Shola Cunha MD [address] [place] [address] documented as of this encounter Visit Diagnoses Not on filedocumented in this encounter Care Teams Melter Helper Relationship Specialty Start Date End Date Gianluca Price MD [address] [address] PCP - General INTERNAL MEDICINE 09/04/18 documented as of this encounter
--- OUTSIDE RECORDS SUMMARY | 2024-10-05 02:46 | XMS_ITS | Encounter Summary ---
Author Organization [facility] Address [address] [place] [address]. [place], [place] [address] [place] [address] Care Team Providers Care Liquid Yeast Supervisor Name Role Phone Gianluca Price MD Primary Care Provider [phone] Reason for Visit * Reason Comments Obstructive Sleep Apnea CPAP @ 11 cm Pro vider Plus * Consultation/Treatment (Routine) - Closed Specialty Diagnoses / Procedures Referred By Contac t Referred To Contact Internal Medicine Pulmonary Disease / SLEEP & RESPIRATORY CARE Diagnoses Sleep apnea, unspecified 1 yr PHILLIP Procedures FOLLOW UP Gianluca Price MD 2043 [facility] [address] [place] [address] Phone: tel: fax: Shola Cunha MD [address] [place] [address] Phone: tel: fax: Referral ID Status Reason Start Date Expiration Date Visits Re quested Visits Authorized [id number] Closed 12/29/2021 06/27/2022 6 6 Encounter Details Date Type Department Care Team (Latest Contact Info) Description 01/02/2022 11:00 AM CDT Office Visit [facility] Medical Group Multispecialty Care - [address] [place] [address] Shola Cunha MD 3 [facility] [address] [place] [address] Obstructive Sleep Apnea (CPAP @ 11 cm Provider Plus) Social History Tobacco Use Types Packs/Day Years [...] Sign Reading Time Taken Comments Blood Pressure 118/64 01/02/2022 10:32 AM CDT Pulse 88 01/02/2022 10:32 AM CDT Temperature 36.3 ??C (97.3 ??F) 01/02/2022 10:32 AM C DT Respiratory Rate 14 01/02/2022 10:32 AM CDT Oxygen Saturation 98% 01/02/2022 10:32 AM CDT Inhaled Oxygen Concentration - - Weight 156.9 kg (346 lb) 01/02/2022 10:32 AM CDT Height 193 cm (6' 4 ) 01/02/2022 10:32 AM CDT Body Mass Index 42.12 01/02/2022 10:32 AM CDT documented in this encounter Patient Instructions * Patient Instructions* Shola Cunha MD - 01/02/2022 11:00 AM CDT 1. We are going to adjust the settings on her CPAP to be an auto CPAP between 11 and 20 to see if this controls the pauses in breathing a little bit better 2. Continue using distilled water 3. Change the mask adjustment to every 3 to 6 months 4. Let us know if our orders were not followed and we can call provider plus to be sure they do it 5. In 3 months, call the office and asked for us to check your compliance to be sure that the new settings are working okay for you 6. Work on some efforts of weight loss, diet, exercise 7. Plan to follow-up with me in 1 year, sooner if needed documented in this encounter Progress Notes * Shola Cunha MD - 01/02/2022 11:00 AM CDT [facility] PULMONARY MEDICINE History Chief Complaint Patient presents with ??? Obstructive Sleep Apnea CPAP @ 11 cm Provider Plus Referring provider: Gianluca Price MD 01/02/2022 OV: No significant issues or changes [...] symptoms. 09/15/2020 OV: Du Anderson is a 66-year-old male with a past medical history of obstructive sleep apnea on CPAP, hypertension, coronary artery disease who follows up today for obstructive sleep apnea. Overall, he says that he is been doing well. He uses his CPAP every single night. He wakes up feeling refreshed. No issues falling asleep or dozing off during the day. He typically goes to bed [id number] PM and wakes up around 8:52 AM. He may wake up a few times at night to adjust his mask. He thinks that he has lost a little bit of weight. Continues to use distilled water. He is a never smoker. 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 No significant respiratory exposures that he [...] mg tablet ONE TABLET BID ??? atorvastatin 40 MG tablet Take 40 mg by mouth daily. ??? carvedilol 6.25 MG tablet Take 6.25 mg by mouth 2 (two) times daily. ??? clopidogrel 75 MG tablet Take 75 mg by mouth daily. ??? CPAP MACHINE CPAP11 CM HS use while [id number], VentrapragadaActive ??? furosemide 20 MG tablet Take 20 mg by mouth 2 (two) times daily. ??? hydrochlorothiazide 25 MG tablet Take 25 mg by mouth every morning. ??? potassium chloride CR 20 MEQ tablet TAKE 1 TABLET BY MOUTH TWO TIMES DAILY ??? quinapril (ACCUPRIL) 40 MG tablet Take 40 mg by mouth daily. ??? fenofibrate 145 MG tablet Take 145 mg by mouth daily. No current facility-administered medications for this visit. Allergies Allergen Reactions ??? Rosuvastatin Myalgias Immunization History Administered Date(s) Administered ??? Fluzone 6 Months+ Quad (0.5 mL Prefilled Syringe) 06/27/2020 ??? Influenza Adult (Generic) 09/05/2018, 06/27/2020 ??? MODERNA COVID-19, mRNA, LNP-S, PF, 100 mcg/ 0.5 mL dose 12/08/2020 ??? Tdap (Generic) 08/22/2015 ??? Zoster (Zostavax) 56026 Unt/0.65Ml 12/03/2018, 04/15/2019 Review of Systems Constitutional: [...] and suicidal ideas. Physical Exam Filed Vitals: 01/02/22 1032 BP: 118/64 Pulse: 88 Resp: 14 Temp: 97.3 ??F (36.3 ??C) TempSrc: Temporal SpO2: 98% Weight: (!) 156.9 kg (346 lb) Height: 6' 4 (1.93 m) Body mass index is 42.12 kg/m??. Physical Exam: General: Alert, pleasant, in [...] cm H2O was effective Pertinent Labs Reviewed [place] Sleepiness Scale Score: [facility] AMB EPWORTH SCORE 09/02/2019 Total score [...] set at 11 cm H2O. AHI 6.4/h. Assessment 1. Obstructive sleep apnea on CPAP 2. Elevated BMI 3. Hypertension 4. Coronary artery disease Plan -Change CPAP to an auto 11 to 20 cm H2O to try to improve his AHI -Continue to change the mask, straps, tubing every 3 to 6 months -Use distilled water -Advised further efforts at weight loss with diet, exercise -Advised that he call in 3 months so that we can check on his compliance to be sure the new settings are working well Return in about 1 year (around 01/02/2023). Shola Cunha MD documented in this encounter Plan of Treatment Upcoming Encounters Date Type Department Care Team (Late st Contact Info) Description 01/13/2025 11:00 AM CDT Office Visit [facility] Medical [facility] Pulmonology Specialty Clinic - [address] [place] [address] Shola Cunha MD 3 [facility] [address] [place] [address] documented as of this encounter Visit Diagnoses Diagnosis PHILLIP (obstructive sleep apnea)- Primary Obstructive sleep apnea (adult) (pediatric) BMI 40.0-44.9, adult ([facility]) Body Mass Index 40.0-44.9, adult CPAP (continuous positive airway pressure) dependence Dependence on other enabling machine Class 3 severe obesity due to excess calories without serious comorbidity with body mass index (BMI) of 40.0 to 44.9 in adult ([facility]) documented in this encounter Care Teams Liquid Yeast Supervisor Relationship Specialty Start Date End Date Gianluca Priec MD 2043 [facility] [address] [place] [id number] PCP - General INTERNAL MEDICINE 09/04/18 documented as of this encounter
--- OUTSIDE RECORDS SUMMARY | 2024-10-05 02:46 | XMS_ITS | Encounter Summary ---
Author Organization [facility] Address [address] [place] [address]. [place], [place] [address] [place] [address] Care Team Providers Care Sales Representative Business Courses Name Role Phone Gianulca Price MD Primary Care Provider [phone] Reason for Visit * Reason Onset Date Comments Surgical Clearance 10/13/2019 Encounter Details Date Type Department Care Team (Late st Contact Info) Description 10/13/2019 Telephone [facility] Multispecialty Care - [facility] [address] [facility], [address] [place] [id number] Diego Martinez MD Surgical Clearance Social History Tobacco Use Types Packs/Day Years [...] as of this encounter Progress Notes * Raegan Benjamin MA - 10/13/2019 4:00 PM CST Letter faxed and pt informed OR GROUP MANAGER * Raegan Benjamin MA - 10/13/2019 2:47 PM CST Last seen 09-02-19, would he need another visit? Or okay for surgery ? OR GROUP MANAGER * Brigida Loyd - 10/13/2019 1:45 PM CST Pt is going to be having a hip replacement surgery but is needing a pulmonary clearance first. Can we do this for him? Please call pt. OR GROUP MANAGER documented in this encounter Plan of Treatment Upcoming Encounters Date Type Department Care Team (Late st Contact Info) Description 01/13/2025 11:00 AM CDT Office Visit [facility] - [address] [place] [address] Shola Cunha MD 3 [facility] [address] [place] [address] documented as of this encounter Visit Diagnoses Not on filedocumented in this encounter Care Teams Sales Representative Business Courses Relationship Specialty Start Date End Date Gianluca Price MD [address] [facility] [address] [place] [address] PCP - General INTERNAL MEDICINE 09/04/18 documented as of this encounter
--- OUTSIDE RECORDS SUMMARY | 2024-10-05 02:46 | XMS_ITS | Encounter Summary ---
Author Organization [facility] Address [address] [place] [address]. [place], [place] [address] [place] [address] Care Team Providers Care Auto Job Estimator Name Role Phone Gianluca Price MD Primary Care Provider [phone] Reason for Visit * Reason Comments Sleep Study (SCAN) Encounter Details Date Type Department Care Team ([facility] Contact Info) Description 09/14/2020 Scan HEALTH INFO SRVCS Scanned, Documents Sleep [...] COVID-19? No / Unsure 09/15/2020 8:54 AM SOLIDS CONTROL TECHNICIAN documented as of this encounter Plan of Treatment Upcoming Encounters Date Type Department Care Team ([facility] Contact Info) Description 01/13/2025 11:00 AM CDT Office Visit [facility] Pul[facility]ty [facility] - [address] [place] [address] Shola Cunha MD [address] [place] [address] documented as of this encounter Procedures Procedure Name Priority Date/Time Associated Diagnosis Comments SLEEP STUDY GENERIC (SCAN ORDER) 09/14/2020 documented in this encounter Results * SLEEP STUDY GENERIC (09/14/2020) 09/14/2020 Narrative 09/14/2020 Ordered by an unspecified provider. us Documents Scanned SCANNING Final Result documented in this encounter Visit Diagnoses Not on filedocumented in this encounter Care Teams Auto Job Estimator Relationship Specialty Start Date End Date Gianluca Price MD [address] [place] [address] PCP - General INTERNAL MEDICINE 09/04/18 documented as of this encounter
--- OUTSIDE RECORDS SUMMARY | 2024-10-05 02:46 | XMS_ITS | Encounter Summary ---
Author Organization [facility] Address [address] [place] [address]. [place], [place] [address] [place] [address] Care Team Providers Care Machine Chocolate Molder Name Role Phone Gianluca Price MD Primary Care Provider [phone] Reason for Visit * Reason Onset Date Comments Orders 01/02/2022 Encounter Details Date Type Department Care Team (Late st Contact Info) Description 01/02/2022 Telephone [facility] Medical Group Multispecialty Care - [facility] [address] [facility] [address] [place] [address] Shola Cunha MD 3 [facility] [address] [place] [address] Orders Social History Tobacco Use Types Packs/Day Years [...] AM CDT documented as of this encounter Progress Notes * Raegan Downey MA - 01/02/2022 12:06 PM CDT Order faxed * Raegan Downey MA - 01/02/2022 11:57 AM CDT ----- Message from Shola Cunha MD sent at 01/02/2022 10:46 AM CDT ----- Regarding: Change CPAP settings Change settings to an autoCPAP 11-20 cmH2O. Shola Cunha MD documented in this encounter Plan of Treatment Upcoming Encounters Date Type Department Care Team (Late st Contact Info) Description 01/13/2025 11:00 AM CDT Office Visit [facility] Pul[facility]ty [facility] - [address] [place] [address] Shola Cunha MD 3 [facility] [address] [place] [address] documented as of this encounter Visit Diagnoses Not on filedocumented in this encounter Care Teams Machine Chocolate Molder Relationship Specialty Start Date End Date Gianluca Price MD 20[address] [facility] 23 [place] [address] PCP - General INTERNAL MEDICINE 09/04/18 documented as of this encounter
--- OUTSIDE RECORDS SUMMARY | 2024-10-05 02:46 | XMS_ITS | Encounter Summary ---
Author Organization [facility] Address [address] [place] [address]. [place], [place] [address] [place] [address] Care Team Providers Care Machine Pie Maker Name Role Phone Gianluca Price MD Primary Care Provider [phone] Reason for Visit * Reason Onset Date Comments Reschedule 12/10/2023 Encounter Details Date Type Department Care Team (Late st Contact Info) Description 12/10/2023 Telephone [facility] Medical Group Multispecialty Care - [facility] 3 [facility] [address] [place] [address] Shola Cunha MD 3 [facility] [address] [place] [address] Reschedule Social History Tobacco Use Types Packs/Day [...] * Balta Chirinos, Nurse Student - 12/10/2023 2:02 PM CST LVM to patient.. I have been unable to reach this patient by phone. A letter is being sent to the last known home address to reschedule your 01/08/24 appointment. CTOR OF INSTRUCTIONAL TECHNOLOGY documented in this encounter Plan of Treatment Upcoming Encounters Date Type Department Care Team (Late st Contact Info) Description 01/13/2025 11:00 AM CDT Office Visit [facility] Medical [facility] Pul[facility] Specialty Clinic - [address] [place] [address] Shola Cunha MD 3 [facility] [address] [place] [address] documented as of this encounter Visit Diagnoses Not on filedocumented in this encounter Care Teams Machine Pie Maker Relationship Specialty Start Date End Date Gianluca Price MD 2043 [facility] 23 [place] [phone] PCP - General INTERNAL MEDICINE 09/04/18 documented as of this encounter
--- OUTSIDE RECORDS SUMMARY | 2024-10-05 02:46 | XMS_ITS | Encounter Summary ---
Author Organization [facility] Address [address] [place] [address]. [place], [place] [address] [place] [address] Care Team Providers Care Ironworker Foreman Name Role Phone Gianluca Price MD Primary Care Provider [phone] Reason for Visit * Reason Onset Date Comments Orders 09/15/2020 Encounter Details Date Type Department Care Team (Late st Contact Info) Description 09/15/2020 Telephone [facility] Medical Group Multispecialty Care - [facility] [address] [facility] [place] [address] Shola Cunha MD 3 [facility] [address] [place] [address] Orders Social History Tobacco Use Types Packs/Day [...] COVID-19? No / Unsure 09/15/2020 8:54 AM BIOLOGICAL TECHNICAL OFFICER documented as of this encounter Progress Notes * Nu Lerner CRT - 09/15/2020 9:24 AM CST ----- Message from Shola Cunha MD sent at 09/15/2020 9:19 AM BIOLOGICAL TECHNICAL OFFICER ----- Regarding: CPAP Please reach out and ask the company to refit his mask, there is too much leak with current mask. Shola Cunha MD OGICAL TECHNICAL OFFICER documented in this encounter Plan of Treatment Upcoming Encounters Date Type Department Care Team (Late st Contact Info) Description 01/13/2025 11:00 AM CDT Office Visit [facility]ty [facility] - [address] [place] [address] Shola Cunha MD 3 [facility] [address] [place] [address] documented as of this encounter Visit Diagnoses Not on filedocumented in this encounter Care Teams Ironworker Foreman Relationship Specialty Start Date End Date Gianluca Price MD 2043 [facility] 23 [place] [address] PCP - General INTERNAL MEDICINE 09/04/18 documented as of this encounter
--- OUTSIDE RECORDS SUMMARY | 2024-10-05 02:47 | XMS_ITS | Encounter Summary ---
Author Organization [facility] Address [address] [place] [address]. [place], [place] [address] [place] [address] Care Team Providers Care Gyro Mechanic Name Role Phone Unavailable Primary Care Provider Unavailabl e Encounter Details Date Type Department Care Team (Late st Contact Info) Description 01/01/2017 Abstract [facility] Medical Group Multispecialty Care - [facility] [address] [facility], [address] [place] [phone] Diego Martinez MD Social History Tobacco Use Types Packs/Day Years Used Date Smoking Tobacco: Never Assessed Sex and Gender Information Value Date Recorded Sex Assigned at Not on file Legal Sex Male 9:31 PM CDT Gender Identity Not on file Sexual Orientation Not on file documented as of this encounter Last Filed Vital Signs Vital Sign Reading Time Taken Comments Blood Pressure 110/62 01/01/2017 10:47 AM CDT Pulse 66 01/01/2017 10:47 AM CDT Temperature - - Respiratory Rate - - Oxygen Saturation - - Inhaled Oxygen Concentration - - Weight 138.3 kg (305 lb) 01/01/2017 10:47 AM CDT Height 193 cm (6' 4 ) 01/01/2017 10:47 AM CDT Body Mass Index 37.13 01/01/2017 10:47 AM CDT documented in this encounter Progress Notes * Diego Martinez MD - 01/01/2017 4:06 PM CDT Message Recorded as Task Date: 01/01/2017 10:59 AM, Created By: Diego Martinez Task Name: Follow Up Assigned To: [facility]-Nursing Team Regarding Patient: Du Anderson, Status: In Progress Comment: Diego Martinez - 01 Jan 2017 10:59 AM TASK CREATED decrease cpap to 11cm Quiana Gibsonan 01 Jan 2017 11:37 AM TASK EDITED Order faxed to Provider Ananth, waiting on office note to fax. ArthurVicenta 01 Jan 2017 11:38 AM TASK IN PROGRESS Vicenta Gibson 01 Jan 2017 4:06 PM TASK EDITED Office note faxed to Provider Ananth. Signatures Electronically signed by : Vicenta Gibson, ; Jan 01 2017 4:06PM TIRE DUSTER (Author) * Diego Martinez MD - 01/01/2017 10:30 AM CDT Assessment 1. PHILLIP (obstructive sleep apnea) (327.23) (G47.33) 2. Obesity (278.00) (E66.9) Plan Obesity 1. Follow-up visit in 1 year Outpatient Follow-up Status: Hold For - Scheduling Requested for: 01Jan2017 Ordered; For: Obesity; Ordered By: Diego Martinez Performed: Due: [id number] PHILLIP (obstructive sleep apnea) 2. From CPAP To CPAP 11 CM HS use while sleeping Rx By: Diego Martinez; Dispense: 0 Days ; #:1; Refill: 0; For: PHILLIP (obstructive sleep apnea);GONZALEZ = N; Record Compliance with CPAP has been excellent. I recommended that he should continue his CPAP. If his family notices snoring after the CPAP has been decreased to 11 cm he was advised to contact us. He was advised to continue using the CPAP postoperatively. I recommended replacement mask and straps every 6 months Reason For Visit Chronic Recheck Visit Chief Complaint Follow-up of CPAP therapy History of Present Illness HPI: He claims to use the CPAP nightly. He denies any issues with the mask fit. He denies daytime somnolence. He has been slowly losing weight. He is scheduled to have an elective knee surgery. He would like the CPAP decreased. Review of Systems Constitutional: weight loss Head Eyes Ears Nose and Throat: negative. Cardiovascular: Negative. Respiratory: Negative. Gastrointestinal: Negative. Genitourinary: Negative. Musculoskeletal: Negative. Integumentary: Negative. Neurological: Negative. Psychiatric: Negative. Endocrine: Negative. Hematologic/Lymphatic: Negative. Active Problems 1. CAD (coronary artery disease) (414.00) (I25.10) 2. Essential hypertension (401.9) (I10) 3. Obesity (278.00) (E66.9) 4. PHILLIP (obstructive sleep apnea) (327.23) (G47.33) Surgical History 1. History of Back Surgery 2. History of Cath Placement Of Stent 2 Family History 1. No pertinent family history 2. No pertinent family history Social History ?? Never a smoker Current Meds 1. Accupril 40 MG Oral Tablet; Therapy: (Recorded:25Dec2016) to Recorded 2. Aspirin 81 MG TABS; Therapy: (Recorded:25Dec2016) to Recorded 3. Brilinta 90 MG Oral Tablet; Therapy: (Recorded:25Dec2016) to Recorded 4. Carvedilol 6.25 MG Oral Tablet; Therapy: (Recorded:01Jan2017) to Recorded 5. CPAP; Therapy: (Recorded:25Dec2016) to Recorded 6. Fenofibrate 145 MG Oral Tablet; Therapy: (Recorded:25Dec2016) to Recorded 7. HydroCHLOROthiazide 25 MG Oral Tablet; Therapy: (Recorded:25Dec2016) to Recorded 8. Hydrocodone-Acetaminophen 5-325 MG Oral Tablet; Therapy: (Recorded:01Jan2017) to Recorded 9. Klor-Con 10 10 MEQ Oral Tablet Extended Release; Therapy: (Recorded:25Dec2016) to Recorded 10. Lipitor 20 MG Oral Tablet; Therapy: (Recorded:25Dec2016) to Recorded 11. Niacin 500 MG Oral Tablet; Therapy: (Recorded:25Dec2016) to Recorded Allergies 1. No Known Drug Allergies Vitals Recorded: 01Jan2017 10:47AM Temperature 98.1 F Heart Rate 66 Respiration 18 Systolic 110 Diastolic 62 O2 Saturation 95, RA Height 6 ft 4 in Weight 305 lb BMI Calculated 37.13 BSA Calculated 2.65 Physical Exam Constitutional: General appearance: Normal. patient was observed to be, but well developed and well nourished. Head and Face: no strap zacarias. Eyes: Conjunctiva and lids: Normal. Ears, Nose, Mouth, and Throat: External inspection of ears and nose: Normal. Neck: Neck Appearance: Normal. The neck was normal and was supple. the trachea was midline. Cardiovascular Auscultation of heart: Normal. The heart rate was normal. The rhythm was regular. Heart sounds: normal S1 and normal S2. Pulmonary Chest: Normal. Respiratory effort: Normal. Auscultation of lungs: Normal. Auscultation of the lungs revealed decreased breath sounds diffusely. no rales or crackles were heard bilaterally. no wheezing. Lymphatic Palpation of lymph nodes in neck: Normal. Skin Skin and subcutaneous tissue: Normal. Spirometry He uses the CPAP 100% of the time, more than 8 hours per night. Signatures Electronically signed by : Diego Martinez M.D.; Jan 01 2017 12:28PM TIRE DUSTER (Author) documented in this encounter Plan of Treatment Upcoming Encounters Date Type Department Care Team (Late st Contact Info) Description 01/13/2025 11:00 AM CDT Office Visit [facility] Medical Group Pulmonology Specialty Clinic - [address] [place] [address] Shola Cunha MD [address] [place] [address] documented as of this encounter Visit Diagnoses Not on filedocumented in this encounter
--- OUTSIDE RECORDS SUMMARY | 2024-10-05 02:47 | XMS_ITS | Encounter Summary ---
Author Organization [facility] Address [address] [place] [address]. [place], [place] [address] [place] [address] Care Team Providers Care Mattress Stuffer Name Role Phone Gianluca Price MD Primary Care Provider [phone] Reason for Visit * Reason Comments Lab (SCAN) Encounter Details Date Type Department Care Team (Latest Contact Info) Description 09/01/2019 Scan [facility] HEALTH INFO SRVCS Scanned, Documents Lab (SCAN) Social History Tobacco Use Types Packs/Day [...] 01/13/2025 11:00 AM CDT Office Visit [facility] Pulmonology Specialty Clinic - [address] [place] [address] Shola Cunha MD [address] [place] [address] documented as of this encounter Procedures Procedure Name Priority Date/Time Associated Diagnosis Comments OUTSIDE LAB (SCAN ORDER) Routine 09/01/2019 documented in this encounter Results * OUTSIDE LAB (09/01/2019) 09/01/2019 us Documents Scanned SCANNING Edited Result - Final documented in this encounter Visit Diagnoses Not on filedocumented in this encounter Care Teams Mattress Stuffer Relationship Specialty Start Date End Date Gianluca Price MD [address] [address] PCP - General INTERNAL MEDICINE 09/04/18 documented as of this encounter
--- OUTSIDE RECORDS SUMMARY | 2024-10-05 02:47 | XMS_ITS | Encounter Summary ---
Author Organization [facility] Address [address] [place] [address]. [place], [place] [address] [place] [address] Care Team Providers Care Piece Work Checker Name Role Phone Gianluca Price MD Primary Care Provider [phone] Reason for Visit * Reason Comments Obstructive Sleep Apnea CPAP @ 11 cm Pro vider Plus * Consultation/Treatment (Routine) - Closed Specialty Diagnoses / Procedures Referred By Contact Referred To Contact INTERNAL MEDICINE / SLEEP & RESPIRATORY CARE Diagnoses PHILLIP (obstructive sleep apnea) 1 yr follow up Procedures FOLLOW UP Gianluca Price MD [address] [phone] Phone: tel: fax: Diego Haley MD Referral ID Status Reason Start Date Expiration Date Visits Re quested Visits Authorized [id number] Closed 08/10/2019 10/05/2019 6 6 Encounter Details Date Type Department Care Team (Late st Contact Info) Description 09/02/2019 11:00 AM COCOA BUTTER FILTER OPERATOR Office Visit [facility] Medical Group Multispecialty Care - [facility] 3 [facility], [address] [place] [phone] Diego Haley MD Obstructive Sleep Apnea (CPAP @ 11 cm [...] Sign Reading Time Taken Comments Blood Pressure 132/72 09/02/2019 11:04 AM COCOA BUTTER FILTER OPERATOR Pulse 97 09/02/2019 11:04 AM COCOA BUTTER FILTER OPERATOR Temperature 36.9 ??C (98.5 ??F) 09/02/2019 11:[address] Respiratory Rate 16 09/02/2019 11:04 AM COCOA BUTTER FILTER OPERATOR Oxygen Saturation 98% 09/02/2019 11:04 AM COCOA BUTTER FILTER OPERATOR Inhaled Oxygen Concentration - - Weight 154.7 kg (341 lb) 09/02/2019 11:04 AM COCOA BUTTER FILTER OPERATOR Height 193 cm (6' 4 ) 09/02/2019 11:04 AM COCOA BUTTER FILTER OPERATOR Body Mass Index 41.51 09/02/2019 11:04 AM COCOA BUTTER FILTER OPERATOR documented in this encounter Progress Notes * Diego Haley MD - 09/02/2019 11:00 AM CST [facility] SLEEP MEDICINE History Chief Complaint Patient presents with ??? Obstructive Sleep Apnea CPAP @ 11 cm Provider Plus HPI: Du Anderson is a 63-year-old male who presents for follow-up of CPAP therapy. He claims to use the CPAP nightly. He recently replaced his CPAP, he likes the new CPAP which he feels is quieter he denies daytime somnolence. He also states that he cannot sleep without CPAP. Past Medical History: Diagnosis Date ??? CAD (coronary artery disease) ??? Hypertension ??? Obesity ??? PHILLIP on CPAP Past Surgical History: Procedure Laterality Date ??? BACK SURGERY ??? CARDIAC CATHETERIZATION ??? REPLACEMENT TOTAL KNEE Social History Tobacco Use ??? Smoking status: Never Smoker ??? Smokeless tobacco: Never Used Substance Use Topics ??? Alcohol use: No Frequency: Never ??? Drug use: No Family History Family history unknown: Yes Current Outpatient Medications Medication Sig Dispense Refill ??? allopurinol 300 MG tablet ??? amlodipine 5 MG tablet ??? aspirin 81 MG tablet ??? atorvastatin 40 MG tablet ??? carvedilol 6.25 MG tablet ??? clopidogrel 75 MG tablet ??? CPAP MACHINE CPAP11 CM use while [id number], VentrapragadaActive ??? fenofibrate 145 MG tablet ??? furosemide 20 MG tablet ??? hydrochlorothiazide 25 MG tablet ??? niacin 500 MG Tab ??? potassium chloride (KLOR-CON 10) 10 MEQ Tab CR tablet ??? quinapril (ACCUPRIL) 40 MG tablet No current facility-administered medications for this visit. No Known Allergies Immunization History Administered Date(s) Administered ??? Influenza Adult (Generic) 09/05/2018 Review of Systems Constitutional: Negative for chills, diaphoresis, fever, malaise/fatigue and weight loss. HENT: Positive for congestion. Negative for ear discharge, hearing loss, nosebleeds, sinus pain, sore throat and tinnitus. Eyes: Negative for discharge. Respiratory: Negative for sputum production, shortness of breath, wheezing and stridor. Cardiovascular: Negative for chest pain, palpitations, orthopnea, claudication, leg swelling and PND. Gastrointestinal: Negative for abdominal pain, blood in stool, constipation, diarrhea, heartburn, melena, nausea and vomiting. Genitourinary: Negative for frequency and urgency. Musculoskeletal: Negative for back pain, joint pain and myalgias. Skin: Negative for rash. Neurological: Negative for dizziness, tingling, sensory change, weakness and headaches. Endo/Heme/Allergies: Negative for environmental allergies and polydipsia. Bruises/bleeds easily. Psychiatric/Behavioral: Negative for depression. The patient is not nervous/anxious. Physical Exam Wt Readings from Last 3 Encounters: 09/02/19 (!) 154.7 kg (341 lb) 09/05/18 (!) 153.8 kg (339 lb) Temp Readings from Last 3 Encounters: 09/02/19 98.5 ??F (36.9 ??C) 09/05/18 98.3 ??F (36.8 ??C) BP Readings from Last 3 Encounters: 09/02/19 132/72 09/05/18 124/60 Pulse Readings from Last 3 Encounters: 09/02/19 97 09/05/18 77 Resp Readings from Last 3 Encounters: 09/02/19 16 09/05/18 18 PF Readings from Last 3 Encounters: No data found for PF SpO2 Readings from Last 3 Encounters: 09/02/19 98% 09/05/18 97% Physical Exam: General: Well-developed, well-nourished, not in distress Neuro: alert, appropriate Head: No strap zacarias, no facial abnormalities Neck: supple, no jvd, no thyromegaly, no adenopathy Resp: non-labored, clear to auscultation, no adventitious sounds CV: S1 and S2 are well heard Ext: no clubbing or edema. Skin: no visible rashes Data: [facility] AMB EPWORTH SCORE 09/02/2019 Total score 0 He uses CPAP consistently more than 8 hours, Apnea Hypopnea index is 2.4/h on 11 cm of CPAP Assessment SNOMED CT(R) 1. PHILLIP (obstructive sleep apnea) OBSTRUCTIVE SLEEP APNEA SYNDROME 2. CPAP (continuous positive airway pressure) dependence DEPENDENCE ON CONTINUOUS POSITIVE AIRWAY PRESSURE VENTILATION 3. BMI 40.0-44.9, adult ([facility]) BODY MASS INDEX 40+ - SEVERELY OBESE Plan He is advised to continue using the CPAP, replaced the mask and straps every 6 months. Weight loss was encouraged. I also recommended replacing the mask and straps every 6 months. Dictation performed with [employer], variance may occur. DIEGO HALEY MD A BUTTER FILTER OPERATOR documented in this encounter Plan of Treatment Upcoming Encounters Date Type Department Care Team (Late st Contact Info) Description 01/13/2025 11:00 AM CDT Office Visit [facility] Medical Group Pulmonology Specialty Clinic - [address] [place] [address] Shola Cunha MD [address] [place] [address] documented as of this encounter Visit Diagnoses Diagnosis PHILLIP (obstructive sleep apnea)- Primary Obstructive sleep apnea (adult) (pediatric) CPAP (continuous positive airway pressure) dependence Dependence on other enabling machine BMI 40.0-44.9, adult ([facility]) Body Mass Index 40.0-44.9, adult documented in this encounter Care Teams Piece Work Checker Relationship Specialty Start Date End Date Gianluca Price MD [address] [phone] PCP - General INTERNAL MEDICINE 09/04/18 documented as of this encounter
--- OUTSIDE RECORDS SUMMARY | 2024-10-05 02:47 | XMS_ITS | Encounter Summary ---
Author Organization [facility] Address [address] [place] [address]. [place], [place] [address] [place] [address] Care Team Providers Care Soup Person Name Role Phone Gianluca Price MD Primary Care Provider [phone] Reason for Visit * Reason Onset Date Comments Orders 03/11/2019 Encounter Details Date Type Department Care Team (Late st Contact Info) Description 03/11/2019 Telephone [facility] Medical Group Multispecialty Care - [address], [address] [place] [phone] Diego Martinez MD Orders Social History Tobacco Use Types Packs/Day [...] Progress Notes * Raegan Benjamin MA - 03/11/2019 1:38 PM CDT Order sent to [facility] and pt informed * Ana Gandhi - 03/11/2019 11:59 AM CDT Pt called saying that he needs a new cpap order to [facility]. He said his machine is no longer working correctly and also to give him a call back to let him know that we sent theorder. documented in this encounter Plan of Treatment Upcoming Encounters Date Type Department Care Team (Late st Contact Info) Description 01/13/2025 11:00 AM CDT Office Visit [facility] Pul[facility]ology Specialty Clinic - [address] [place] [address] Shola Cunha MD 3 [facility] [address] [place] [address] documented as of this encounter Visit Diagnoses Not on filedocumented in this encounter Care Teams Soup Person Relationship Specialty Start Date End Date Gianluca Price MD 2043 [facility] [place] [facility] 23 [place] [phone] PCP - General INTERNAL MEDICINE 09/04/18 documented as of this encounter
--- OUTSIDE RECORDS SUMMARY | 2024-10-05 02:47 | XMS_ITS | Encounter Summary ---
Author Organization [facility] Address [address] [place] [address]. [place], [place] [address] [place] [address] Care Team Providers Care Regional Sales Coordinator Name Role Phone Gianluca Price MD Primary Care Provider [phone] Encounter Details Date Type Department Care Team (Latest Contact Info) Description 03/11/2019 Scan HEALTH INFO SRVCS Scanned, Documents Social [...] Description 01/13/2025 11:00 AM CDT Office Visit [facility] Medical Group Pulmonology Specialty Clinic - [address] [place] [address] Shola Cunha MD 3 [facility] [address] [place] [address] documented as of this encounter Visit Diagnoses Not on filedocumented in this encounter Care Teams Regional Sales Coordinator Relationship Specialty [place] [address] [place] [phone] PCP - General INTERNAL MEDICINE 09/04/18 documented as of this encounter
--- OUTSIDE RECORDS SUMMARY | 2024-10-05 02:47 | XMS_ITS | Encounter Summary ---
Author Organization [facility] Address [address] [place] [address]. [place], [place] [address] [place] [address] Care Team Providers Care Retention Specialist Name Role Phone Gianluca Price MD Primary Care Provider [phone] Reason for Visit * Reason Onset Date Comments Orders 11/10/2018 Encounter Details Date Type Department Care Team (Late st Contact Info) Description 11/10/2018 Telephone [facility] Medical Group Multispecialty Care - [address], [address] [place] [phone] Diego Martinez MD Orders Social History Tobacco [...] Progress Notes * Raegan Benjamin MA - 11/12/2018 3:39 PM CST Order sent to [facility] along with OV note and LM informing patient. INE BENDER * Brigida Loyd - 11/10/2018 11:06 AM CST Pt is needing new supplies (mask etc) for his cpap Please fax order for supplies to [facility] in [place] and also his most recent office note INE BENDER documented in this encounter Plan of Treatment Upcoming Encounters Date Type Department Care Team (Late st Contact Info) Description 01/13/2025 11:00 AM CDT Office Visit [facility] Medical [facility] Pul[facility]ology Specialty Clinic - [address] [place] [address] hSola Cunha MD 3 [facility] [address] [place] [address] documented as of this encounter Visit Diagnoses Not on filedocumented in this encounter Care Teams Retention Specialist Relationship Specialty Start Date End Date Gianluca Price MD 2043 [facility] 23 [place] [phone] PCP - General INTERNAL MEDICINE 09/04/18 documented as of this encounter
--- OUTSIDE RECORDS SUMMARY | 2024-10-05 02:47 | XMS_ITS | Encounter Summary ---
Author Organization [facility] Address [address] [place] [address]. [place], [place] [address] [place] [address] Care Team Providers Care Broaching Machine Operator Name Role Phone Unavailable Primary Care Provider Unavailabl e Encounter Details Date Type Department Care Team (Latest Contact Info) Description 01/02/2017 Abstract [facility] Medical Group Social History Tobacco Use Types Packs/Day Years [...] Description 01/13/2025 11:00 AM CDT Office Visit [facility] Medical Group Pulmonology Specialty Clinic - [address] [place] [address] Shola Cunha MD [address] [place] [address] documented as of this encounter Visit Diagnoses Not on filedocumented in this encounter
--- OUTSIDE RECORDS SUMMARY | 2024-10-05 02:47 | XMS_ITS | Encounter Summary ---
Author Organization [facility] Address [address] [place] [address]. [place], [place] [address] [place] [address] Care Team Providers Care Electrical Project Engineer Name Role Phone Gianluca Price MD Primary Care Provider [phone] Reason for Visit * Reason Onset Date Comments Appointment Request 09/04/2018 Error 09/04/2018 Encounter Details Date Type Department Care Team (Late Contact Info) Description 09/04/2018 Telephone [facility] Multispecialty Care - [address], [address] [place] [phone] Diego Martinez MD Appointment Request; Error Social History Tobacco Use Types Packs/Day Years Used Date Smoking Tobacco: Never Assessed AUDIT-C Answer Date Recorded Frequency of Alcohol Consumption Never 09/05/2018 Average Number of Drinks Not on file 018 Frequency of Binge Drinking Not on file 08/09 Sex and Gender Information Value Date Recorded Sex Assigned at Not on file Legal Sex Male 9:31 PM CDT Gender Identity Not on file Sexual Orientation Not on file documented as of this encounter Progress Notes * Janay Ruiz - 09/04/2018 10:21 AM CST Encounter opened in error. ARCHITECT documented in this encounter Plan of Treatment Upcoming Encounters Date Type Department Care Team (Late st Contact Info) Description 01/13/2025 11:00 AM CDT Office Visit [facility] Medical [address] Medical [facility] Pulmonology Specialty Clinic - [address] [place] [address] Shola Cunha MD 3 [facility] [address] [place] [address] documented as of this encounter Visit Diagnoses Diagnosis ERRONEOUS ENCOUNTER--DISREGARD- Primary documented in this encounter Care Teams Electrical Project Engineer Relationship Specialty Start Date End Date Gianluca Price MD 2043 [facility] 23 [place] [phone] PCP - General INTERNAL MEDICINE 09/04/18 documented as of this encounter
--- OUTSIDE RECORDS SUMMARY | 2024-10-05 02:47 | XMS_ITS | Encounter Summary ---
Author Organization [facility] Address [address] [place] [address]. [place], [place] [address] [place] [address] Care Team Providers Care Well Driller Name Role Phone Unavailable Primary Care Provider Unavailabl e Encounter Details Date Type Department Care Team (Latest Contact Info) Description 06/02/2003 Abstract [facility] Social History Tobacco Use Types [...] [place] [facility]ty Clinic - [address] [place] [address] Shola Cunha MD [address] [place] [address] documented as of this encounter Visit Diagnoses Not on filedocumented in this encounter
--- OUTSIDE RECORDS SUMMARY | 2024-10-05 02:47 | XMS_ITS | Encounter Summary ---
Author Organization [facility] Address [address] [place] [address]. [place], [place] [address] [place] [address] Care Team Providers Care Pea Viner Mechanic Name Role Phone Unavailable Primary Care Provider Unavailabl e Encounter Details Date Type Department Care Team (Latest Contact Info) Description 05/18/2003 Abstract [facility] Medical Group Social History Tobacco Use Types [...] 11:00 AM CDT Office Visit [facility] Pul[facility]ology Specialty Clinic - [address] [place] [address] Shola Cunha MD [address] [place] [address] documented as of this encounter Visit Diagnoses Not on filedocumented in this encounter
--- OUTSIDE RECORDS SUMMARY | 2024-10-05 02:47 | XMS_ITS | Encounter Summary ---
Author Organization [facility] Address [address] [place] [address]. [place] [address] [place] [address] Care Team Providers Care Behavioral Pediatrician Name Role Phone Unavailable Primary Care Provider Unavailabl e Encounter Details Date Type Department Care Team (Late st Contact Info) Description 12/23/2017 Abstract [facility] Medical Group Multispecialty Care - [address], [address] [place] [phone] Diego Martinez MD Social History Tobacco Use Types Packs/Day Years Used Date Smoking Tobacco: Never Assessed Sex and Gender Information Value Date Recorded Sex Assigned at Not on file Legal Sex Male 9:31 PM CDT Gender Identity Not on file Sexual Orientation Not on file documented as of this encounter Last Filed Vital Signs Vital Sign Reading Time Taken Comments Blood Pressure 122/68 12/23/2017 9:25 AM CDT Pulse 82 12/23/2017 9:25 AM CDT Temperature - - Respiratory Rate - - Oxygen Saturation - - Inhaled Oxygen Concentration - - Weight 152 kg (335 lb) 12/23/2017 9:25 AM CDT Height 193 cm (6' 4 ) 12/23/2017 9:25 AM CDT Body Mass Index 40.78 12/23/2017 9:25 AM CDT documented in this encounter Progress Notes * Diego Martinez MD - 12/23/2017 9:20 AM CDT Assessment 1. PHILLIP (obstructive sleep apnea) (327.23) (G47.33) 2. Obesity (278.00) (E66.9) 3. BMI 40.0-44.9, adult (V85.41) (Z68.41) 4. CPAP (continuous positive airway pressure) dependence (V46.8) (Z99.89) Plan PHILLIP (obstructive sleep apnea) 1. CPAP; 11 CM HS use while sleeping Rx By: Diego Martinez; Dispense: 0 Days ; #:1; Refill: 0; For: PHILLIP (obstructive sleep apnea);GONZALEZ = N; Record 2. Follow-up visit in 1 year Outpatient Follow-up Status: Hold For - Scheduling Requested for: 23Dec2017 Ordered; For: PHILLIP (obstructive sleep apnea); Ordered By: Diego Martinez Performed: Due: 06Jan2018 Discussion/Summary Appliance with CPAP has been excellent. He was advised to continue using the CPAP, lose weight, replaced the mask and straps every 6 months. Note completed with Óscar, variance may occur. Reason For Visit Chronic Recheck Visit Chief Complaint Follow-up of CPAP therapy History of Present Illness HPI: Claims to use the CPAP nightly, in fact he states that he cannot sleep without the CPAP. He denies problems with the mask fit, daytime somnolence, his family does not report snoring. Review of Systems Constitutional: Negative. Head Eyes Ears Nose and Throat: negative. Cardiovascular: Negative... Respiratory: Negative. Gastrointestinal: Negative. Genitourinary: Negative. Musculoskeletal: Negative. Integumentary: Negative. Neurological: Negative. Psychiatric: Negative. Endocrine: Negative. Hematologic/Lymphatic: Negative. Active Problems 1. CAD (coronary artery disease) (414.00) (I25.10) 2. Essential hypertension (401.9) (I10) 3. Obesity (278.00) (E66.9) 4. PHILLIP (obstructive sleep apnea) (327.23) (G47.33) Surgical History 1. History of Back Surgery 2. History of Cath Placement Of Stent 2 3. History of Knee Surgery Right Family History 1. No pertinent family history 2. No pertinent family history Social History ?? Never a smoker Current Meds 1. Accupril 40 MG Oral Tablet; Therapy: (Recorded:25Dec2016) to Recorded 2. Aspirin 81 MG TABS; Therapy: (Recorded:25Dec2016) to Recorded 3. Brilinta 90 MG Oral Tablet; Therapy: (Recorded:25Dec2016) to Recorded 4. Carvedilol 6.25 MG Oral Tablet; Therapy: (Recorded:01Jan2017) to Recorded 5. CPAP; 11 CM HS use while sleeping; Last Rx:01Jan2017 Ordered 6. Fenofibrate 145 MG Oral Tablet; Therapy: [...] 1. No Known Drug Allergies Vitals Recorded: 23Dec2017 09:25AM Temperature 98.2 F Heart Rate 82 Respiration 18 Systolic 122 Diastolic 68 O2 Saturation 95 Height 6 ft 4 in Weight 335 lb BMI Calculated 40.78 BSA Calculated 2.76 Physical Exam Constitutional: General appearance: Normal. patient was observed to be, but well developed and well nourished. Head and Face: no strap zacarias.. Eyes: Conjunctiva and lids: Normal. Ears, Nose, [...] Normal. Skin Skin and subcutaneous tissue: Normal. Results/Data He uses the CPAP consistently 8 hours per night Signatures Electronically signed by : Diego Martinez M.D.; Dec 23 2017 10:39AM OLDER WORKER SPECIALIST (Author) documented in this encounter Plan of Treatment Upcoming Encounters Date Type Department Care Team (Late st Contact Info) Description 01/13/2025 11:00 AM CDT Office Visit [facility] Medical Group Pulmonology Specialty Clinic - [address] [place] [address] Shola Cunha MD [address] [place] [address] documented as of this encounter Visit Diagnoses Not on filedocumented in this encounter
--- OUTSIDE RECORDS SUMMARY | 2024-10-05 02:47 | XMS_ITS | Encounter Summary ---
Author Organization [facility] Address [address] [place] [address]. [place], [place] [address] [place] [address] Care Team Providers Care Technical Implementation Lead Name Role Phone Unavailable Primary Care Provider Unavailabl e Encounter Details Date Type Department Care Team (Latest Contact Info) Description 01/11/2016 Abstract [facility] Medical Group Social History Tobacco Use Types [...] Description 01/13/2025 11:00 AM CDT Office Visit [facility] Medical Group Pulmonology Specialty Clinic - [address] [place] [address] Shola Cunha MD [address] [place] [address] documented as of this encounter Visit Diagnoses Not on filedocumented in this encounter
--- OUTSIDE RECORDS SUMMARY | 2024-10-05 02:47 | XMS_ITS | Encounter Summary ---
Author Organization [facility] Address [address] [place] [address]. [place], [place] [address] [place] [address] Care Team Providers Care Doughnut Batter Mixer Name Role Phone Gianluca Price MD Primary Care Provider [phone] Reason for Visit * Reason Comments Outside Record (SCAN) Encounter Details Date Type Department Care Team (Late Contact Info) Description 09/04/2018 Scan HEALTH INFO SRVCS Scanned, Documents Outside Record (SCAN) Social History Tobacco Use Types Packs/Day [...] Upcoming Encounters Date Type Department Care Team ([facility] Contact Info) Description 01/13/2025 11:00 AM CDT Office Visit [facility] Medical Group Pulmonology Specialty Clinic - [address] [place] [address] Shola Cunha MD [address] [facility] [address] [place] [address] documented as of this encounter Visit Diagnoses Not on filedocumented in this encounter Care Teams Doughnut Batter Mixer Relationship Specialty Start Date End Date Gianluca Price MD 2043 [facility] [address] [place] [phone] PCP - General INTERNAL MEDICINE 09/04/18 documented as of this encounter
--- OUTSIDE RECORDS SUMMARY | 2024-10-05 02:47 | XMS_ITS | Encounter Summary ---
Author Organization [facility] / [facility] Address [address] [place] [address] [address] Care Team Providers Care Lead Cytogenetic Technologist Name Role Phone Gianluca Price MD Primary Care Provider [phone] Reason for Visit * Reason Comments Obstructive Sleep Apnea CPAP F/U (new to medicare needs F2F) Excessive Sleepiness Daytime * Consultation/Treatment (Routine) - Closed Specialty Diagnoses / Procedures Referred By Contact Referred To Contact INTERNAL MEDICINE / SLEEP & RESPIRATORY CARE Diagnoses PHILLIP (obstructive sleep apnea) 1 yr follow up Procedures FOLLOW UP Gianluca Pirce MD [address] [address] Phone: tel: fax: Diego Haley MD Referral ID Status Reason Start Date Expiration Date Visits Re quested Visits Authorized [id number] Closed 08/10/2019 10/05/2019 6 6 Encounter Details Date Type Department Care Team (Late st Contact Info) Description 09/05/2018 11:00 AM ARCHIVAL RECORDS CLERK Office Visit [facility] Medical Group Multispecialty Care - [facility] [address] [facility] [address] [place] [phone] Diego Haley MD Obstructive Sleep Apnea (CPAP F/U (new to medicare needs F2F)); Excessive Sleepiness Daytime Social History Tobacco Use Types Packs/Day Years [...] Sign Reading Time Taken Comments Blood Pressure 124/60 09/05/2018 11:04 AM ARCHIVAL RECORDS CLERK Pulse 77 09/05/2018 11:04 AM ARCHIVAL RECORDS CLERK Temperature 36.8 ??C (98.3 ??F) 09/05/2018 11:[address] Respiratory Rate 18 09/05/2018 11:04 AM ARCHIVAL RECORDS CLERK Oxygen Saturation 97% 09/05/2018 11:04 AM ARCHIVAL RECORDS CLERK Inhaled Oxygen Concentration - - Weight 153.8 kg (339 lb) 09/05/2018 11:04 AM ARCHIVAL RECORDS CLERK Height 193 cm (6' 4 ) 09/05/2018 11:04 AM ARCHIVAL RECORDS CLERK Body Mass Index 41.26 09/05/2018 11:04 AM ARCHIVAL RECORDS CLERK documented in this encounter Progress Notes * Diego Haley MD - 09/05/2018 11:00 AM CST [facility] SLEEP MEDICINE History Chief Complaint Patient presents with ??? Obstructive Sleep Apnea CPAP F/U (new to medicare needs F2F) ??? Excessive Sleepiness Daytime HPI: Du Anderson is a 62-year-old male who presents for follow-up of CPAP therapy and sleep apnea syndrome. Patient claims that he has been using the CPAP faithfully, denies any problems with the mask fit, denies daytime somnolence. He recently became a Medicare patient. He feels that the CPAP has been beneficial. Past Medical History: Diagnosis Date ??? CAD [...] Outpatient Medications Medication Sig Dispense Refill ??? aspirin 81 MG tablet ??? atorvastatin (LIPITOR) 20 MG tablet ??? carvedilol 6.25 MG tablet ??? CPAP MACHINE CPAP11 CM HS use while [id number], VentrapragadaActive ??? fenofibrate 145 MG tablet ??? hydrochlorothiazide 25 MG tablet ??? niacin 500 MG Tab ??? potassium chloride (KLOR-CON 10) 10 MEQ Tab CR tablet ??? quinapril (ACCUPRIL) 40 MG tablet ??? ticagrelor (BRILINTA) 90 MG tablet No current facility-administered medications for this visit. No Known Allergies Immunization History Administered Date(s) Administered ??? Influenza Adult (Generic) 09/05/2018 Review of Systems Constitutional: Negative for chills, diaphoresis, fever, malaise/fatigue and weight loss. HENT: Positive for congestion. Negative for ear discharge, hearing loss, nosebleeds, sinus pain, sore throat and tinnitus. Respiratory: Negative for sputum production, shortness of breath, wheezing and stridor. Cardiovascular: Negative for chest pain, palpitations, orthopnea, claudication, leg swelling and PND. Gastrointestinal: Positive for heartburn. Negative for abdominal pain, blood in stool, constipation, diarrhea, melena, nausea and vomiting. Neurological: Negative for sensory change, speech change, focal weakness, loss of consciousness andweakness. Endo/Heme/Allergies: Negative for environmental allergies and polydipsia. Bruises/bleeds easily. Physical Exam Filed Vitals: 09/05/18 1104 BP: 124/60 Pulse: 77 Resp: 18 Temp: 98.3 ??F (36.8 ??C) SpO2: 97% Weight: (!) 153.8 kg (339 lb) Height: 6' 4 (1.93 m) Physical Exam: General: Well-developed, well-nourished, not in distress Neuro: alert, appropriate Head: No strap zacarias, no facial abnormalities Neck: supple, no jvd, no thyromegaly, no adenopathy Resp: non-labored, clear to auscultation, no adventitious sounds CV: S1 and S2 are well heard Ext: no clubbing or edema. Skin: no visible rashes Data: He uses the CPAP consistently more than 8 hours ESS 11/30 Assessment Compliance with CPAP has been excellent, sleep apnea appears to be under good control with CPAP. Shira Sandy was seen today for obstructive sleep apnea and excessive sleepiness daytime. Diagnoses and all orders for this visit: Obstructive sleep apnea CPAP (continuous positive airway pressure) dependence BMI 40.0-44.9, adult ([facility]) He was advised to continue using the CPAP, replaced the mask and straps every 6 months. I also encouraged him to lose weight. Dictation performed with Dragon, variance may occur. DIEGO HALEY MD IVAL RECORDS CLERK documented in this encounter Plan of Treatment Upcoming Encounters Date Type Department Care Team (Late st Contact Info) Description 01/13/2025 11:00 AM CDT Office Visit [facility] Medical Group Pulmonology [facility]ty [facility] - [address] [place] [address] Shola Cunha MD 3 [facility] [address] [place], [place] [id number] Scheduled Orders Name Type Priority Associated Diagnoses Orde r Schedule POS AIRWAY PRESSURE, CPAP (in Clinic) Procedures Routine Obstructive sleep apnea Ordered: 09/05/2018 documented as of this encounter Visit Diagnoses Diagnosis Obstructive sleep apnea- Primary Obstructive sleep apnea (adult) (pediatric) CPAP (continuous positive airway pressure) dependence Dependence on other enabling machine BMI 40.0-44.9, adult ([facility]) Body Mass Index 40.0-44.9, adult documented in this encounter Care Teams Lead Cytogenetic Technologist Relationship Specialty Start Date End Date Gianluca Price MD [address] [facility] [address] [place] [id number] PCP - General INTERNAL MEDICINE 09/04/18 documented as of this encounter
--- OUTSIDE RECORDS SUMMARY | 2024-10-05 02:49 | XMS_ITS | Encounter Summary ---
Author Organization [facility] Address [address] [place] [address] Phone Care Team Providers Care Folder Seamer Name Role Phone Gianluca Price MD Primary Care Provider Ayden Corona DO Unavailable [phone] Roberto Medley MD Unavailable [phone] Encounter Details Date Type Department Care Team (Late st Contact Info) Description 04/13/2024 Telephone [facility] Cardiology [address] [place] [address] Ari Bradley MD [address] [facility] [address] [place] [address] Social History Tobacco Use Types Packs/Day Years Used Date Smoking Tobacco: Never Passive Smoke Exposure: Never Smokeless Tobacco: Never Alcohol Use Standard Drinks/Week Comments Yes 0 (1 standard drink = 0.6 oz pur e alcohol) Occasionally AUDIT-C Answer Date Recorded Q1: How often do you have a drink containing alc ohol? 2-4 times a month 01/09/2024 Q2: How many drinks containi ng alcohol do you have on a typical day when you are drinking? 1 or 2 01/09/2024 Q3: How often do you have si x or more drinks on one occasion? Never 01/09/2024 PHQ-2 Answer Date Recorded PHQ-2 Total Score (If total score is 3 or more points, staff should administer the PHQ-9) 2 06/07/2020 Personal Safety Answer Date Recorded Have you ever been in or are you currently in a harmful physical or emotional relationship or is someone making you feel afraid or unsafe? Denies 01/09/2024 Sex and Gender Information Value Date Recorded Sex Assigned at Not on file Legal Sex Male 3:11 AM TEMPERING MACHINE OPERATOR Gender Identity Not on file Sexual Orientation Not on file Occupation Industry Job Start Date Job End Date Retired Not on file Not on file Not on file documented as of this encounter Miscellaneous Notes * Telephone Encounter - Varsha Evans NP - 04/13/2024 8:42 AM CDT ----- Message from Ari Bradley MD sent at 04/13/2024 7:36 AM CDT ----- Low sugar diet ----- Message ----- From: [facility] Results In Sent: 04/08/2024 4:35 PM CDT To: Ari Bradley MD My chart message sent documented in this encounter Plan of Treatment Not on file documented as of this encounter Visit Diagnoses Not on filedocumented in this encounter Care Teams Folder Seamer Relationship Specialty Start Date End Date Gianluca Price MD PCP - General 06/18/17 Ayden Corona DO [address] [facility] [address] [place] [address] Referring Physician Surgery 10/29/22 Roberto Medley MD [phone] [place] [address] Surgeon Colon and Rectal Surgery 11/23/22 documented as of this encounter
--- OUTSIDE RECORDS SUMMARY | 2024-10-05 02:49 | XMS_ITS | Encounter Summary ---
Author Organization [facility] Address [address] [place] [address] Phone Care Team Providers Care Oil Burner Name Role Phone Gianluca Price MD Primary Care Provider Ayden Corona DO Unavailable [phone] Roberto Medley MD Unavailable [phone] Encounter Details Date Type Department Care Team (Late st Contact Info) Description 07/02/2024 Telephone [facility] Cardiology [address] [facility] [address] [place] [address] [place] [address] Ari Bradley MD [address] [facility] [address] [place] [address] Social History Tobacco Use Types Packs/Day Years [...] on file Legal Sex Male 3:11 AM LINK FABRIC MACHINE OPERATOR Gender Identity Not on file Sexual Orientation Not on file Occupation Industry Job Start Date Job End Date Retired Not on file Not on file Not on file documented as of this encounter Ordered Prescriptions Prescription Sig Dispense Quantity Refills Last Filled Start Date End Date nitroglycerin (NITROSTAT) 0.[address] 1 tablet (0.4 mg total) under the tongue every 5 (five) minutes as needed for chest pain (prn) 25 tablet 1 07/02/2024 4 documented in this encounter Miscellaneous Notes * Telephone Encounter - Bipin Mills RMA - 07/02/2024 12:37 PM CDT Requested Prescriptions Pending Prescriptions Disp Refills nitroglycerin (NITROSTAT) 0.4 mg SL tablet 25 tablet 2 Sig: Place 1 tablet (0.4 mg total) under the tongue every 5 (five) minutes as needed for chest pain(prn) Last provider visit: 04/06/24 Next provider visit: 10/28/24 Preferred pharmacy: [facility]/pharmacy #[id number] - [place], [place] - [address] [place] [address] [address] [facility] [address] Was med refilled or sent back to Provider Pool for clarification? MED WAS REFILLED * Telephone Encounter - Kia Colón - 07/02/2024 11:51 AM CDT Kirk Pt calling to have nitro .4 mg sent to [facility] pharmacy on [address] in [place], [place]. States he has never taken it and his bottle is . Would like a smaller supply as well if possible. documented in this encounter Plan of Treatment Not on file documented as of this encounter Visit Diagnoses Not on filedocumented in this encounter Discontinued Medications Medication Sig Discontinue Reason Start Date End Da te nitroglycerin (NITROSTAT) 0.[address] 1 tablet (0.4 mg total) under the tongue every 5 (five) minutes as needed for chest pain (prn) Reorder 06/21/2022 07/02/2024 documented as of this encounter Care Teams Oil Burner Relationship Specialty Start Date End Date Gianluca Price MD PCP - General 06/18/17 Ayden Corona DO [address] [place] [address] Referring Physician Surgery 10/29/22 Roberto Medley MD [phone] [place] [address] Surgeon Colon and Rectal Surgery 11/23/22 documented as of this encounter
--- OUTSIDE RECORDS SUMMARY | 2024-10-05 02:49 | XMS_ITS | Encounter Summary ---
Author Organization [facility] Address [address] [place] [address] Phone Care Team Providers Care Oncology Registrar Name Role Phone Gianluca Price MD Primary Care Provider Ayden Coorna DO Unavailable [phone] Roberto Medley MD Unavailable [phone] Reason for Referral * Cardiology (Routine) - Pending Review Specialty Diagnoses / Procedures Referred By Contac t Referred To Contact Diagnoses Acute diastolic congestive heart failure (CMS/HCC) (HCC) Procedures Transthoracic Echo (TTE) Complete W Doppler/CF Ari Bradley MD [address] [facility] [address] [place] [address] Phone: tel: fax: [facility] Cardiology [address] [facility] [address] [place] [address] Phone: tel: fax: Referral ID Status Reason Start Date Expiration Date V isits Requested Visits Authorized [id number] Pending Review 09/23/2024 10/23/2025 1 1 ATIONS MANAGER/COORDINATOR Reason for Visit * Reason Onset Date Comments Request For Order(s) 09/23/2024 Echo Encounter Details Date Type Department Care Team (Late st Contact Info) Description 09/23/2024 Telephone [facility] Cardiology [address] [facility] 8th [place] [address] [place] [address] Ari Bradley MD [address] [facility] [address] [place] [address] Request For Order(s) (Echo) Social History Tobacco Use Types Packs/Day Years [...] on file Legal Sex Male 3:11 AM OPERATIONS MANAGER/COORDINATOR Gender Identity Not on file Sexual Orientation Not on file Occupation Industry Job Start Date Job End Date Retired Not on file Not on file Not on file documented as of this encounter Miscellaneous Notes * Telephone Encounter - Vickie Ann - 09/24/2024 10:32 AM OPERATIONS MANAGER/COORDINATOR LMOR @ [phone] for pt to c/b to schedule Echo. Right now there are available Echo's at [facility] or [facility] on 09/28/24 ATIONS MANAGER/COORDINATOR * Telephone Encounter - Sydney Nunez RN - 09/23/2024 4:29 PM OPERATIONS MANAGER/COORDINATOR Kirk Bonilla to Nurse Pls call [facility] Pt has questions about the office notes. Did pt have echo with doppler? Echo need prior to colonoscopy on Saturday. ATIONS MANAGER/COORDINATOR * Telephone Encounter - Tata Cross - 09/23/2024 3:16 PM CST Kirk Bonilla to Nurse Pls call [facility] Pt has questions about the office notes. Did pt have echo with doppler? ATIONS MANAGER/COORDINATOR documented in this encounter Plan of Treatment Scheduled Orders Name Type Priority Associated Diagnoses Order Schedule Transthoracic Echo (TTE) Complete W Doppler/CF Echocardiography Routine Acute diastolic congestive heart failure (CMS/HCC) (HCC) Expected: 09/24/2024, Expires: 09/23/2025 documented as of this encounter Visit Diagnoses Diagnosis Acute diastolic congestive heart failure (CMS/HCC) (HCC)- Primary documented in this encounter Care Teams Oncology Registrar Relationship Specialty Start Date End Date Gianluca Price MD PCP - General 06/18/17 Ayden Corona DO [address] [facility] [address] [place] [address] Referring Physician Surgery 10/29/22 Roberto Medley MD [phone] [place] [address] Surgeon Colon and Rectal Surgery 11/23/22 documented as of this encounter
--- OUTSIDE RECORDS SUMMARY | 2024-10-05 02:49 | XMS_ITS | Encounter Summary ---
Author Organization [facility] Healthcare Address [address] [place] [address] Care Team Providers Care Scabbler Name Role Phone Gianluca Price MD Primary Care Provider Ayden Corona DO Unavailable [phone] Roberto Medley MD Unavailable [phone] Reason for Visit * Auth/Cert (Routine) Specialty Diagnoses / Procedures Referred By Contac t Referred To Contact Diagnoses Anal fistula Anal fistula [K60.3] Procedures MA RECTAL TUMOR EXCISION TRANSANAL ENDOSCOPIC MA CLOSURE RECTOVESICAL FISTULA MA UNLISTED PROCEDURE RECTUM ENDOSCOPIC TRANSANAL MICROSURGERY - CLOSURE OF FISTULA Referral ID Status Reason Start Date Expiration Date Visits Re quested Visits Authorized [id number] 1 1 Encounter Details Date Type Department Care Team (Late st Contact Info) Description 01/09/2024 11:40 AM CDT Anesthesia Event [facility] Operating Room [address] ABHILASH Escobar [id number] Michela Izaguirre MD [address] [place] [address] Sydney Truong NP [address] [facility] [id number] [place] [address] Anesthesia Record Procedure Summary Procedure Name Responsible Anesthesiologist Anesthesia Start Time Anesthesia Stop Time ENDOSCOPIC TRANSANAL MICROSURGERY - CLOSURE OF FISTULA (Anus) Michela Izaguirre MD 01/09/24 1140 01/09/24 1326 Events Date Time Event Comment 01/09/2024 0828 In Preop 0853 1104 AN Equip Check 1140 An Start 1143 In Room 1144 An Start Data 1150 An Induction The patient was reevaluated immediately before moderate or deep sedation use and before anesthesia induction. 1152 An Intubation 1154 Anesthesia Ready 1213 Proc Start 1307 An Extubation 1308 Proc Fin 1309 Quick Note Weak, Mask vent on 100%. Sat increasing with oral airway. Still acting weak despite To4s. IV Suggam 1314 an stop data 1317 Out of Room 1326 Handoff to RN I completed my handoff to the receiving nurse during which we: 1. Patient identified 2. Responsible provider identified 3. Pertinent medical history reviewed 4. Procedure type and surgical course discussed 5. Intraoperative anesthetic management and any significant issues discussed 6. Expectations and concerns for postop period discussed 7. Questions solicited from receiving nurse 8. Patient disposition at the time of handoff: PACU 1326 An Stop Meds Name Total fentaNYL PF 100 mcg Lidocaine IV 1% PF 50 mg propofol 140 mg rocuronium 30 mg ondansetron PF 4 mg dexamethasone 4 mg/ml 4 mg ertapenem (INVanz) 1,000 mg in sodium ch loride 0.9% 100 mL IVPB 1,000 mg sugammadex 200 mg Lactated Ringer's (LR) infusion 900 mL * Agents Name O2 N2O Air Sevoflurane Inspired Sevoflurane * Blood No blood administrations on file. Lines, Drains, and Airways Type Details Placement Removal Closed/Suction/Open Drain 11/22/23; 1130; No; 1; Other (Comment) (rectum); Other (Comment) (16 fr. mushroom catheter); 16 Fr. 11/22/23 1130 by Natacha Rae RN Peripheral IV Placement Date: 01/09/24; Placement Time: 904; Catheter Size: 20 G; Orientation: Posterior, Right; Location: Forearm; Site Prep: Chlorhexidine; Technique: Anatomical landmarks; Inserted by: SURJIT Rubio; Insertion Attempts: 1; Patient Tolerance: Tolerated well 01/09/24 09 by Miki Rubio RN Closed/Suction/Open Drain 01/09/24; 1259; No; Buttock; Other (Comment) (mushroom catheter); 16 Fr. 04/04/24 1259 by Lynette Packer RN ETT Placement Date: 01/09/24; Placement Time: 1221 (created via procedure documentation); Mask Ventilation: 1; Technique: Video laryngoscopy; Type: ETT - single; Single Lumen Tube Size: 7.5 mm; Cuffed: Yes; Laryngoscope: Claudio; Blade Size: 4; Location: Oral; Insertion Attempts: 1; Placement Verification: Auscultation; Airway Comment: Atraumatic x 1. +BBS/+ETCO2. 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 Gender Identity Not on file Sexual Orientation Not on file Occupation Industry Job Start Date Job End Date Retired Not on file Not on file Not on file documented as of this encounter OR Notes * Anesthesia Postprocedure Evaluation - Michela Izaguirre MD - 01/09/2024 4:51 PM CDT Patient: Du Anderson Procedure Summary Date: 01/09/24 Room / Location: [facility] Anesthesia Start: 1140 Anesthesia Stop: 1326 Procedure: ENDOSCOPIC TRANSANAL MICROSURGERY - CLOSURE OF FISTULA (Anus) Diagnosis: Anal fistula (Anal fistula [K60.3]) Surgeons: Roberto Medley MD Responsible Provider: Michela Izaguirre MD Anesthesia Type: general ASA Status: 3 Anesthesia Type: general Last vitals BP 134/82 Pulse 101 Temp (!) 35.6 ??C (96.1 ??F) Resp 17 SpO2 96% Anesthesia Post Evaluation Patient location during evaluation: PACU Patient participation: complete - patient participated Level of consciousness: fully awake Pain score: 0 Pain management: adequate Airway patency: adequate Evidence of recall: no Cardiovascular status: acceptable Respiratory status: acceptable Hydration status: acceptable Pt is: normothermic Nausea/Vomiting status: none Comments: Pt stable and ready for discharge No notable events documented. * Anesthesia Procedure Notes - Abigail Steen CRNA - 01/09/2024 12:20 PM CDT Associated Order(s): Airway Airway Patient location: OR Urgency: elective Indications for airway management: anesthesia Difficult airway: no Staff: Placed by: MANAGER WATER WASTEWATER: Abigail Steen CRNA Emergent airway documentation: Risks and benefits discussed: yes Consent obtained: yes Consent given by: patient Airway prep: Preoxygenated: yes Patient position: sniffing Mask difficulty assessment: 1 - vent by mask Spontaneous ventilation during airway: absent Sedation level during airway: GA Final airway details: Final airway type: endotracheal airway Tube type: ETT ETT size: 7.5 mm Cuffed: yes Technique used for successful ETT placement: video laryngoscopy Devices/Methods used in placement: cricoid pressure and stylet Insertion site: oral Blade type: Claudio Video blade type: Lee Blade size: 4 Cormack-Lehane (video): grade I - full view of glottis Cuff volume: 8 mL Cuff inflated with: air ETT to lips: 22 cm Placement verified by: auscultation Airway secured with: transpore tape Number of attempts: 1 Additional comments: Atraumatic x 1. +BBS/+ETCO2. Mouth and dentition unchanged. * Anesthesia Preprocedure Evaluation - Michela Izaguirre MD - 12/26/2023 10:10 AM CDT Images from the original note were not included. [facility] for Preoperative Assessment and Planning Preoperative Evaluation Record Evaluation type/location: TPAP from [facility] Planned procedure site: [facility] OR Date: 12/26/23 NOTE: This note represents a preoperative evaluation initiated via telephone interview. NO PHYSICALEXAM was performed at the time of initial assessment. A physical exam may be added to this note anddocumented below. Anesthesia Evaluation Du Anderson is a 67 y.o. male ENDOSCOPIC TRANSANAL MICROSURGERY - CLOSURE OF FISTULA (Anus) Pre-Op Diagnosis Codes: * Anal fistula [K60.3] HISTORY HPI Du Anderson 67 year old male s/p EUA rectum , unroofing anal sinus on 11/22/23 ([facility]) who is beingevaluated prior to undergoing endoscopic transanal microsurgery- closure of fistula for anal fistula PMH HTN, HLD, CAD, with CRISTHIAN 2021, 2015,a-fib on Eliquis, PHILLIP, GERD, chronic pain,and obesity Past Medical History Information obtained from: patient and chart. Neurological Pertinent negatives: seizures; neuromuscular disease; CVA/stroke; TIA; CEA; ICA stenosis; dementia/mild cognitive impairment and carotid artery stent Cardiovascular + Hypertension Hypertension year diagnosed: 2003. Typical systolic BP - 125 Typical diastolic BP - 75 + Hyperlipidemia (Treated with statin) + CAD + Drug-eluting stent(s) (04/27 RCA CRISTHIAN placed and s/p multiple CRISTHIAN-- 04/2016 CRISTHIAN X 1 to RCA; 12/2015 CRISTHIAN X 2-- Superior Ramus & Prox LAD; 11/2015 CRISTHIAN X 2-- LCx & Inferior Ramus) - Prior stent(s) date: 04/2022, 2015. + CHF (EF 45% per TTE 07/2022) Diastolic function: unknown/unspecified LVEF: 40-50%. + Current valvular disease - MR - mild; TR - mild. + Atrial fibrillation/flutter (on Eliquis) - Pertinent negatives: LA ; CABG ; valve replacement; arrhythmia; pacemaker/ICD; PVD; DVT/PE; bare metal stent(s) and coronary angioplasty Comments: Followed by gravure press operator, Dr Bradley-- Last OV 05/2023 Respiratory + Sleep apnea (PHILLIP) Prescribed device: CPAP and PAP compliant. Pertinent negatives: COPD; asthma; pulmonary hypertension; no O2 use outside the hospital and non-smoker Hepatic / Heme Pertinent negatives: liver disease; history of anemia; history of thrombocytopenia and history of Eddie positive Gastrointestinal + GERD - PRN medication use only. Symptoms < 1x/week. Pertinent negatives: hiatal hernia Renal / Pertinent negatives: renal disease; dialysis and nephrolithiasis Musculoskeletal/Pain + Chronic pain (Lower back) - back pain. + Osteoarthritis Pertinent negatives: chronic opioid use and previous treatment for opioid use disorder Endocrine / Other + Obesity (BMI >30) (BMI 40.08)- morbid obesity (BMI>40). Pertinent negatives: diabetes mellitus; thyroid disease; cancer history; rheumatological disease and transplanted organ Functional Capacity Functional capacity: <4 METs Functional capacity limited by a non-cardiovascular, non-pulmonary condition. Comments: Can walk ~200 feet before needing to stop and rest d/t back pain and need to lean againstsomething or sit down from pain- Denies SOB/CP with activity. Review of Systems + palpitations (Occasional with Afib remote hx) + easy bruising (d/t Eliquis and Plavix-- denies excessive bleeding no nose bleeed or bleeding fromhis gums) + chronic pain (Lower back) + vision loss (corrective lenses) Pertinent negatives: productive cough; wheezing; SOB; recent cold/flu; fever; chest pain; orthopnea; pedal edema; PND; Sickle Cell disease/trait; previous transfusion; transfusion reaction; melena/hematochezia; bleeding problems; syncope and dizziness PAT Summary and Plans Cardiac risk classification of planned procedure: low cardiac risk. Preoperative assessment status: complete. Initial preoperative evaluation discussed with: Santiago Ashford MD Additional comments: Du Anderson is a 67 y.o. male who is being evaluated prior to undergoing a low cardiac risk surgery. Revised Cardiac Risk Index factors are (ischemic heart disease and historyof CHF) for a total RCRI of 2 out of 6. Functional capacity is <4 METs Obstructive sleep apnea (PHILLIP) screening status is HIGH RISK due to known PHILLIP. This assessment was performed via telephone. Therefore the physical exam has been deferred to the day of surgery team. The patient was provided with preoperative instructions for their medications. The patient was informed that instructions regarding stopping any therapeutic antiplatelet or anticoagulant medications will be provided by the surgeon's office. Patient instructions were provided by telephone and electronically sent via [employer]. Patient verbalized understanding of instructions. Blood bank needs for day of procedure: No type and screen needed Pending labs/tests include: None The patient is on clopidogrel therapy and has a history of CRISTHIAN and CAD. Because the risk of increased bleeding likely outweighs the benefits of this therapy perioperatively, we recommend discontinuing clopidogrel for 7 days prior to the procedure and resuming therapy when feasible in the postoperative period. The patient reports the following plan is already in place, which we are in agreement with: hold 7 days prior to procedure. Please call the CPAP clinic ([phone]) with any questions. The patient is on oral anticoagulation therapy with apixaban (ELIQUIS) and is scheduled for a procedure with a planned/possible nerve block and/or is at low or intermediate risk for perioperative thrombosis. Estimated creatinine clearance is presumed to be greater than 30 ml/min pending lab results. We recommend holding all doses of this anticoagulant for 72 hours prior to the procedure. Therapeutic anticoagulation should be resumed post-operatively when the bleeding risk is acceptable. Alternative anticoagulation therapies can be used in the interim if acceptable. The patient reports the following plan is already in place, which we are in agreement with: stop 3 days prior to procedure.. Please call the CPAP chart room clinician ([phone]) to revisit risk assessment, with any questions, or to discuss alternative management plans. Similar procedure completed at [facility] [place] [place] 04/2023 without issues. Discussed case with CPAP attending complex hx and plan for Plavix and Eliquis. OK to proceed as planned. TPAP assessment complete Preoperative evaluation performed by Sydney Truong NP on 12/26/23 at 10:06 AM . 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/26/2022 Abnormal EKG 04/19/2022 Chest pain 04/19/2022 Acute diastolic congestive heart failure (CMS/HCC) ([facility]) 04/19/2022 Low back pain, non-specific 06/08/2020 Coronary artery disease involving [place] coronary artery of [place] heart without angina pectoris 11/04/2015 Abnormal cardiovascular stress test 10/19/2015 Shortness of breath 10/19/2015 Hyperlipidemia 10/19/2015 Hypertension 10/19/2015 Past Medical History: Diagnosis Date Arthritis Atrial fibrillation ([facility]) ([facility]) s/p cardioversion 2019-- Currently treated with Eliquis CHF (congestive heart failure) (CMS/[facility]) ([facility]) Coronary artery disease s/p multiple CRISTHIAN-- 04/2016 CRISTHIAN X 1 to RCA; 12/2015 CRISTHIAN X 2-- Superior Ramus & Prox LAD; 11/2015 CRISTHIAN X 2-- LCx & Inferior Ramus Gout Hypercholesterolemia Treated with statin Hypertension Dxd ~2003 Mitral regurgitation Morbid obesity ([facility]) PHILLIP (obstructive sleep apnea) CPAP machine nightly Osteoarthritis PONV (postoperative nausea and vomiting) Tricuspid regurgitation Past Surgical History: Procedure Laterality Date ANAL EXAMINATION UNDER ANESTHESIA 12/10/2022 Exam under anesthesia and seton placement ANAL EXAMINATION UNDER ANESTHESIA 04/26/2023 Exam under anesthesia and perineal drain placement CARDIAC STENT PLACEMENT 12/2015 CRISTHIAN X 2-- Superior Ramus & Prox LAD; 11/2015 CRISTHIAN X 2-- LCx & Inferior Ramus CARDIAC STENT PLACEMENT 04/2022 CRISTHIAN X 1 to RCA CARDIOVERSION 2019 WILMER guided COLONOSCOPY Multiple-- Last ~2019 EXAMINATION UNDER ANESTHESIA 11/2023 EXAM UNDER ANESTHESIA - RECTUM with mushroom drain placement FISTULA REPAIR 02/21/2023 Ligation of intersphincteric fistula tract and drainage of perianal sinus tract PARTIAL HIP ARTHROPLASTY Right 09/2021 POSTERIOR FUSION LUMBAR SPINE 2014 L3-5 PSF ([facility]) TOTAL HIP ARTHROPLASTY Left 12/2019 TOTAL KNEE ARTHROPLASTY Right 01/2016 TOTAL KNEE ARTHROPLASTY Left 05/2018 Allergies Allergen Reactions Rosuvastatin Muscle pain Med List Status: Nurse Complete Set By: Jenny Jorge RN at 12/19/2023 9:42 AM Taking? Last Dose Start Date End Date Provider acetaminophen (TYLENOL) 500 mg tablet -- -- -- Abran Canales MD allopurinol (ZYLOPRIM) 300 mg tablet 12/18/2023 06/01/18 -- Abran Canales MD apixaban (ELIQUIS) 5 mg tablet 12/19/2023 07/06/20 -- Hussain Mitchell MD Take 1 tablet (5 mg total) by mouth 2 (two) times a day Patient taking differently: Take 1 tablet (5 mg total) by mouth 2 (two) times a day atorvastatin (LIPITOR) 80 mg tablet 12/19/2023 11/18/23 -- Ari Bradley MD Take 1 tablet (80 mg total) by mouth ball worker before breakfast Notes: Requesting 1 year supply bisacodyL 5 mg tablet -- 11/26/23 -- Roberto Medley MD The day before surgery take 2 tabs at 10 am with 8 oz of clear liquid. At 12 pm, take 2 more tabs with 8 oz of clear liquid. Notes: If this is not covered by insurance, please direct patient to the OTC product. carvediloL (COREG) 6.25 mg tablet 12/19/2023 11/18/23 -- Ari Bradley MD Take 1 tablet (6.25 mg total) by mouth 2 (two) times a day with meals Patient taking differently: Take 1 tablet (6.25 mg total) by mouth 2 (two) times a day with meals Notes: Please send a replace/new response with 100-Day Supply if appropriate to maximize member benefit. Requesting 1 year supply. cholecalciferol (VITAMIN D-3) 52166 unit capsule 12/19/2023 -- -- Abran Canales MD clopidogreL (PLAVIX) 75 mg tablet 12/19/2023 11/18/23 -- Ari Bradley MD Take 1 tablet (75 mg total) by mouth every morning Patient taking differently: Take 1 tablet (75 mg total) by mouth every morning dapagliflozin (FARXIGA) 10 mg tablet 12/19/2023 06/21/22 -- Ari Bradley MD Take 1 tablet (10 mg total) by mouth daily Patient taking differently: Take 1 tablet (10 mg total) by mouth ball worker before breakfast Notes: [id number] 09/05/2024 furosemide (LASIX) 80 mg tablet 12/19/2023 11/18/23 -- Ari Bradley MD Take 1 tablet (80 mg total) by mouth daily Patient taking differently: Take 1 tablet (80 mg total) by mouth every morning Notes: Please send a replace/new response with 100-Day Supply if appropriate to maximize member benefit. Requesting 1 year supply. metroNIDAZOLE (FLAGYL) 500 mg tablet -- 11/26/23 -- Roberto Medley MD The day before surgery take metronidazole (Flagyl) 500 mg by mouth at 1 PM, 2 PM, and 10 PM. multivitamin capsule 12/19/2023 -- -- ProviderAbran MD neomycin (MYCIFRADIN) 500 mg tablet -- 11/26/23 -- Roberto Medley MD The day before surgery take neomycin 1000 mg (2 tablets) by mouth at 1 PM, 2 PM, and 10 PM. nitroglycerin (NITROSTAT) 0.4 mg SL tablet () -- 06/21/22 12/19/[address] 1 tablet (0.4 mg total) under the tongue every 5 (five) minutes as needed for chest pain (prn) Notes: Never taken polyethylene glycol (MIRALAX) 17 gram/dose bulk powder () -- 11/26/23 12/19/23 Roberto Medley MD Take 238 g by mouth once for 1 dose The day before surgery mix 238 grams Miralax with 64 ounces clear liquid. 11 AM begin drinking Miralax 8 ounces every 15 minutes until finished for bowel evacuation. potassium chloride ER 20 mEq CR tablet 12/19/2023 10/01/23 -- Ari Bradley MD TAKE 1 TABLET BY MOUTH TWICE DAILY Notes: Please send a replace/new response with 100-Day Supply if appropriate to maximize member benefit. Requesting 1 year supply. sacubitriL-valsartan (ENTRESTO) 24-26 mg tablet 12/19/2023 05/16/23 -- Ari Bradley MD Take 1 tablet by mouth 2 (two) times a day Patient taking differently: Take 1 tablet by mouth 2 (two) times a day No current facility-administered medications for this encounter. Current Outpatient Medications: acetaminophen (TYLENOL) 500 mg tablet allopurinol (ZYLOPRIM) 300 mg tablet apixaban (ELIQUIS) 5 mg tablet atorvastatin (LIPITOR) 80 mg tablet bisacodyL 5 mg tablet carvediloL (COREG) 6.25 mg tablet cholecalciferol (VITAMIN D-3) 67495 unit capsule clopidogreL (PLAVIX) 75 mg tablet dapagliflozin (FARXIGA) 10 mg tablet furosemide (LASIX) 80 mg tablet metroNIDAZOLE (FLAGYL) 500 mg tablet multivitamin capsule neomycin (MYCIFRADIN) 500 mg tablet nitroglycerin (NITROSTAT) 0.4 mg SL tablet polyethylene glycol (MIRALAX) 17 gram/dose bulk powder potassium chloride ER 20 mEq CR tablet sacubitriL-valsartan (ENTRESTO) 24-26 mg tablet Social History Tobacco Use Smoking Status Never Passive exposure: Never Smokeless Tobacco Never Alcohol Use: Not At Risk (12/19/2023) AUDIT-C Frequency of Alcohol Consumption: 2-4 times a month Average Number of Drinks: 1 or 2 Frequency of Binge Drinking: Never Substance and Sexual Activity Drug Use Never Family History Problem Relation Age of Onset Diabetes Mother Hypertension Mother Heart attack Father 59 Family history of heart attack - (Added by TW Conv) Hypertension Father Heart disease Brother Hypertension Brother Anesthesia problems Neg Hx There were no vitals filed for this visit. Relevant diagnostics: ECG(s): N/A Echocardiogram(s):07/20/2022 SUMMARY: LA is markedly dilated. Normal RV cavity size. LV cavity size is normal. Normal LV wall thickness/mass. Mild LV global hypokinesis. Normal Inferior vena cava. Normal aorta. No AR seen, Mild MR, no , no MS, mild TV regurgitation, normal PV.Diastolic function: indeterminate.LVEF 45%. Stress test(s): N/A Cardiac catheterization(s): 04/25/2022 [facility] RESULTS: - Interventional Comments Right coronary artery was wired with a power turn flex without difficulty. Most severe lesion in the midportion was pre-dilated with a 2 5 x 15 NC emerge. Intravascular ultrasound revealed diffuse disease extending to the proximal aspect of the vessel before became more normal in appearance. On thebasis 4 0 x 40 mm drug-eluting Synergy stent was selected and deployed at 20 atmospheres. The mid and proximal portion team under expanded was post dilated with a 4026 NC [place]. This gave excellent result with 0% stenosis ANTHONY 3 flow. - Diagnostic Impression Successful drug-eluting Synergy stent to the proximal mid right coronary artery with 0% stenosis ANTHONY 3 flow. - Therapeutic Recommendations Patient's post intervention regimen should include daily aspirin 81 mg likely limited 2 weeks givenhis need to be on Eliquis. He should be on clopidogrel 75 mg a day with a goal of 6 months. His Eliquis may be resumed on 04/26.. If his clopidogrel was stopped after 6 months,aspirin 81mg should be restarted. PFT(s): N/A Vascular studies: N/A Other: N/A PT: No results found for requested labs within last 30 days. INR: No results found for requested labs within last 30 days. APTT: No results found for requested labs within last 30 days. Hgb A1C: No results found for requested labs within last 30 days. CBC RBC: No results found for requested labs within last 30 days. RDW: No results found for requested labs within last 30 days. MCHC: No results found for requested labs within last 30 days. MCH: No results found for requested labs within last 30 days. MCV: No results found for requested labs within last 30 days. Hct: No results found for requested labs within last 30 days. Hgb: No results found for requested labs within last 30 days. WBC: No results found for requested labs within last 30 days. MPV: No results found for requested labs within last 30 days. Platelets: No results found for requested labs within last 30 days. RDW CV: No results found for requested labs within last 30 days. RDW Sd: No results found for requested labs within last 30 days. BMP Glucose: No results found for requested labs within last 30 days. Calcium: No results found for requested labs within last 30 days. Sodium: No results found for requested labs within last 30 days. Potassium: No results found for requested labs within last 30 days. CO2: No results found for requested labs within last 30 days. Chloride: No results found for requested labs within last 30 days. BUN: No results found for requested labs within last 30 days. Creatinine: No results found for requested labs within last 30 days. Dawson index score: 85 DOS Physical Exam Medical history, medications, and allergies reviewed. Attestation: This PAT evaluation 12/26/2023. Airway Exam: Mallampati: III Cervical ROM: FROM TM distance: normal Patient presents with thick neck and gibson. Cardiovascular Exam: Rate: regular Rhythm: regular Pulmonary Exam: LCTA, bilat EENT Exam: trachea midline Dental Exam: Appears intact Skin Exam: Skin is warm. Current state: Patient's current state is cooperative. Anesthesia Plan ASA 3 My patient is approved for the Anesthesia Controlled Medication protocol when under care of a MANAGER WATER WASTEWATER Planned anesthesia: General Team communication plan: oral ET tube Induction: Induction: intravenous. Informed Consent: Discussed plan with MANAGER WATER WASTEWATER. Anesthesia plan and risks discussed with patient. Consent and Attending signature: I and/or my designee have discussed the anesthesia plan, benefits, possible alternatives, parental presence at time of induction (if indicated), and clinically relevant risks that may include dental injury, unintentional awareness, and/or other complications. The patient and/or parent/legal guardian understand, and agree to proceed. All questions answered. documented in this encounter Plan of Treatment Not on file documented as of this encounter Procedures Procedure Name Priority Date/Time Associated Diagnosis Comments MA AN PROCEDURE PLACEHOLDER Routine 01/09/2024 12:20 PM CDT MA AN ELECTIVE ENDOTRACHEAL AIRWAY Routine 01/09/2024 12:20 PM CDT documented in this encounter Results * MA AN ELECTIVE ENDOTRACHEAL AIRWAY, MA AN PROCEDURE PLACEHOLDER (01/09/2024 12:20 PM CDT) Narrative Abigail Steen CRNA - 01/09/2024 12:20 PM CDT Abigail Steen CRNA ? 01/09/2024 12:21 PM Airway Patient location: OR Urgency: elective Indications for airway management: anesthesia Difficult airway: no Staff: Placed by: MANAGER WATER WASTEWATER: Abigail Steen CRNA Emergent airway documentation: Risks and benefits discussed: yes Consent obtained: yes Consent given by: patient Airway prep: Preoxygenated: yes Patient position: sniffing Mask difficulty assessment: 1 - vent by mask Spontaneous ventilation during airway: absent Sedation level during airway: GA Final airway details: Final airway type: endotracheal airway Tube type: ETT ETT size: 7.5 mm Cuffed: yes Technique used for successful ETT placement: video laryngoscopy Devices/Methods used in placement: cricoid pressure and stylet Insertion site: oral Blade type: Claudio Video blade type: Lee Blade size: 4 Cormack-Lehane (video): grade I - full view of glottis Cuff volume: 8 mL Cuff inflated with: air ETT to lips: 22 cm Placement verified by: auscultation Airway secured with: transpore tape Number of attempts: 1 Additional comments: Atraumatic x 1. +BBS/+ETCO2. Mouth and dentition unchanged. [facility] Lenny Izaguirre MD ANESTHESIA ORDERABLES Zayra gupta Result documented in this encounter Visit Diagnoses Not on filedocumented in this encounter Administered Medications Inactive Administered Medications - up to 3 most recent administrations Medication Order MAR Action Action Date Dose Rate Site dexAMETHasone (DECADRON) 4 mg/mL injection intravenous, Administer over 2 Minutes, As needed, Starting on Alina 01/09/24 at 1204, Anesthesia Intra-op Given 01/09/2024 12:04 PM CDT 4 mg ertapenem (INVanz) 1,000 mg in sodium chloride 0.9% 100 mL IVPB 1,000 mg, intravenous, at 200 mL/hr, Administer over 30 Minutes, Every 24 hours scheduled, First dose on Alina 01/09/24 at 1145, For 1 dose, Intra-Op, Do not mix with dextrose or other medications. Mini-bag Plus, Indications: Prophylaxis, SurgicalIndications:Prophylaxis , Surgical New Bag 01/09/2024 12:17 PM CDT 1,000 mg fentaNYL (SUBLIMAZE) preservative free injection intravenous, As needed, Starting on Alina 01/09/24 at 1140, Anesthesia Intra-op Given 01/09/2024 11:48 AM CDT 50 mcg Given 01/09/2024 11:40 AM CDT 50 mcg Lactated Ringer's (LR) infusion 30 mL/hr, intravenous, Continuous, Starting on Ailna 01/09/24 at 0915, For 4 hours, Use a 500 ml bag for End Stage Renal Disease Patients. Discontinue if fluid still running once patient arrives to floor. Restarted 01/09/2024 1:15 PM CDT Rate/Dose Verify 01/09/2024 11:40 AM CDT 30 mL/ hr New Bag 01/09/2024 9:07 AM CDT 30 mL/hr 30 mL/hr lidocaine (PF) (XYLOCAINE) 10 mg/mL (1 %) preservative free injection intravenous, As needed, Starting on Alina 01/09/24 at 1150, Anesthesia Intra-op Given 01/09/2024 11:50 AM CDT 50 mg ondansetron (ZOFRAN) injection intravenous, Administer over 2 Minutes, As needed, Starting on Alina 01/09/24 at 1201, Anesthesia Intra-op Given 01/09/2024 12:01 PM CDT 4 mg propofoL (DIPRIVAN) 10 mg/mL IV intravenous, As needed, Starting on Alina 01/09/24 at 1150, Anesthesia Intra-op Bolus 01/09/2024 12:43 PM CDT 50 mg New Bag 01/09/2024 11:50 AM CDT 90 mg rocuronium (ZEMURON) injection intravenous, As needed, Starting on Alina 01/09/24 at 1151, Anesthesia Intra-op Given 01/09/2024 11:51 AM CDT 30 mg sugammadex (BRIDION) 100 mg/mL intravenous solution intravenous, As needed, Starting on Alina 01/09/24 at 1312, Anesthesia Intra-op Given 01/09/2024 1:12 PM CDT 200 mg documented in this encounter Care Teams Scabbler Relationship Specialty Start Date End Date Gianluca Price MD PCP - General 06/18/17 Ayden Corona DO [address] [place] [address] Referring Physician Surgery 10/29/22 Roberto Medley MD [id number] [place] [address] Surgeon Colon and Rectal Surgery 11/23/22 documented as of this encounter
--- OUTSIDE RECORDS SUMMARY | 2024-10-05 02:49 | XMS_ITS | Encounter Summary ---
Author Organization [facility] Healthcare Address [address] [place] [address] Care Team Providers Care Event Technician Name Role Phone Gianluca Price MD Primary Care Provider Chloe Ayden Pham DO Unavailable [phone] Roberto Medley MD Unavailable [phone] Reason for Visit * Auth/Cert (Routine) Specialty Diagnoses / Procedures Referred By Contac t Referred To Contact Diagnoses Anal fistula Anal fistula [K60.3] Procedures MI RECTAL TUMOR EXCISION TRANSANAL ENDOSCOPIC MI CLOSURE RECTOVESICAL FISTULA MI UNLISTED PROCEDURE RECTUM ENDOSCOPIC TRANSANAL MICROSURGERY - CLOSURE OF FISTULA Referral ID Status Reason Start Date Expiration Date Visits Re quested Visits Authorized [id number] 1 1 Encounter Details Date Type Department Care Team (Late st Contact Info) Description 01/09/2024 10:45 AM CDT - 01/09/2024 12:45 PM CDT Surgery [facility] Operating Room [address] [place] [address] Robetro Medley MD [id number] [place], [place] [id number] ENDOSCOPIC TRANSANAL MICROSURGERY - CLOSURE OF FISTULA Surgery Details Date/Time Status Location OR Service Patient Class Case Class Case Type Trauma Case? 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 Gender Identity Not on file Sexual Orientation Not on file Occupation Industry Job Start Date Job End Date Retired Not on file Not on file Not on file documented as of this encounter Last Filed Vital Signs Vital Sign Reading Time Taken Comments Blood Pressure 117/78 01/09/2024 8:53 AM CDT Pulse 85 01/09/2024 8:53 AM CDT Temperature 36 ??C (96.8 ??F) 01/09/2024 8:53 AM CDT Respiratory Rate - - Oxygen Saturation 96% 01/09/2024 8:53 AM CDT Inhaled Oxygen Concentration - - Weight 153.3 kg (338 lb) 12/19/2023 9:40 AM CDT Height 195.6 cm (6' 5 ) 12/19/2023 9:40 AM CDT Body Mass Index 40.08 12/19/2023 9:40 AM CDT documented in this encounter Discharge Summaries * Natacha Pa, OPTICAL INSTRUMENT ASSEMBLER - 01/10/2024 8:13 AM CDT Inpatient Discharge Summary BRIEF OVERVIEW Admitting Provider: Roberto Medley MD Discharge Provider: Roberto Medley MD Primary Care Physician at Discharge: Gianluca Price MD [phone] Admission Date: 01/09/2024 Discharge Date: 01/10/2024 Admission Location: [facility] Problems/Diagnoses: Principal Problem (Resolved): Anal fistula Active Problems: No Active Problems: There are no active problems currently on the Problem List. Please update the Problem List and refresh. DETAILS OF HOSPITAL STAY Presenting Problem/History of Present Illness: Du Anderson 67 year old male s/p EUA rectum , unroofing anal sinus on 11/22/23 ([facility]) who presentsfor an endoscopic transanal microsurgery- closure of anal fistula. PMH HTN, HLD, CAD, with CRISTHIAN 2021, 2015,a-fib on Eliquis, PHILLIP, GERD, chronic pain,and obesity Hospital Course: Mr. Du Anderson with a diagnosis of Anal fistula, was electively taken to the operating room on 01/09/2024 and underwent a Procedure(s) (LRB): ENDOSCOPIC TRANSANAL MICROSURGERY - CLOSURE OF FISTULA (N/A) with Dr. Roberto Medley MD. For full operative details, please see dictated summary. The patient tolerated the procedure well and post operatively was admitted to the Colorectal Surgery Floor, on the enhanced recovery pathway. There, hisdiet was advanced and his pain was controlled on IV and oral medication. By day of discharge, 01/10/24: The patient's pain was well controlled on oral medications. The patient was participating in IS and had stable respirations with good oxygen saturations on room air. The patient's IVF had been discontinued. The patient was tolerating a regular diet. The patient was voiding spontaneously. The patient ambulated without difficulty. Throughout the patient's hospital stay, DVT prophylaxis was administered via SCDs and subcutaneous injections. The patient was deemed fit for discharge to Home with a anal mushroom catheter in place.. He will resume his Plavix on 01/10, resume Eliquis on 01/14. Patient was cautioned to check his blood pressureprior to resumption of antihypertensive medications. He verbalized understanding of all these instructions. Active Issues Requiring Follow-up: Follow up with Dr. Medley in 1 month. Operative Procedures Performed: Procedure(s): ENDOSCOPIC TRANSANAL MICROSURGERY - CLOSURE OF FISTULA Discharge Details Physical Exam at Discharge: Discharge Condition: good Pulse: 78 Resp: 17 BP: 109/70 Temp: 36.1 ??C (97 ??F) Weight: (!) 153.3 kg (338 lb) Pertinent Exam Findings at Discharge: rectum: mushroom catheter intact. No bleeding noted. Discharge Disposition: Discharge to home or self care Code Status at Discharge: Full code Discharge Instructions: Activity Instructions Discharge Activity: Driving restrictions -Do not drive for 1 week or while taking narcotic pain medications. Discharge Activity: Lifting restrictions -Do NOT lift greater than 10 pounds for 6 weeks. Discharge Activity: Stairs -You may climb one flight of stairs. Discharge Activity: Walking -You may walk as tolerated. Diet Instructions Adult Discharge Diet Diet Type: Return to previous diet Other Instructions Call provider for: increased temperature -Temperature greater than 101 degrees F Call provider for: nausea, vomiting, diarrhea -If you have persistent nausea, vomiting or diarrhea (more than 10 stools per day) that does not stop Call provider for: redness, tenderness, or signs of infection (pain, swelling, redness, odor or green/yellow discharge around incision site) Call provider for: severe uncontrolled pain Call provider for: any other concerns or questions The Colorectal surgery office hours are Saturday- Saturday 8:00am to 4:00pm, phone number: . After hours, on the weekends or holidays the exchange line is . Call provider if: you feel dizzy, very tired or like you may faint Care Instructions: Incentive Spirometer - Continue to use your incentive spirometer Care Instructions: Shower -You may shower Special Instructions: Continue following PT/OT instructions Discharge Medications: Current Medications TAKE these medications acetaminophen 500 mg tablet Take 2 tablets (1,000 mg total) by mouth every 6 (six) hours as needed for pain Commonly known as: TYLENOL allopurinoL 300 mg tablet Take 1 tablet (300 mg total) by mouth nightly For: treatment to prevent acute gout attack Commonly known as: ZYLOPRIM apixaban 5 mg tablet Take 1 tablet (5 mg total) by mouth 2 (two) times a day Commonly known as: ELIQUIS Start taking on: January 15, 2024 atorvastatin 80 mg tablet Take 1 tablet (80 mg total) by mouth applications analyst before breakfast For: excessive fat in the blood Commonly known as: LIPITOR carvediloL 6.25 mg tablet Take 1 tablet (6.25 mg total) by mouth 2 (two) times a day with meals Commonly known as: COREG cholecalciferol 17936 unit capsule Take 1 capsule (10,000 Units total) by mouth applications analyst before breakfast For: supplement Commonly known as: VITAMIN D-3 clopidogreL 75 mg tablet Take 1 tablet (75 mg total) by mouth every morning For: stent placed 2019 Commonly known as: PLAVIX Start taking on: January 11, 2024 dapagliflozin propanediol 10 mg tablet Take 1 tablet (10 mg total) by mouth daily Commonly known as: FARXIGA furosemide 80 mg tablet Take 1 tablet (80 mg total) by mouth daily Commonly known as: LASIX multivitamin capsule Take 1 capsule by mouth applications analyst before breakfast For: treatment to prevent vitamin deficiency nitroglycerin 0.[address] 1 tablet (0.4 mg total) under the tongue every 5 (five) minutes as needed for chest pain (prn) Commonly known as: NITROSTAT oxyCODONE 5 mg immediate release tablet Take 1 tablet (5 mg total) by mouth every 4 (four) hours as needed for pain For: pain Commonly known as: ROXICODONE polyethylene glycol 17 gram/dose bulk powder Take 238 g by mouth once for 1 dose The day before surgery mix 238 grams Miralax with 64 ounces clear liquid. 11 AM begin drinking Miralax 8 ounces every 15 minutes until finished for bowel evacuation. Commonly known as: MIRALAX potassium chloride ER 20 mEq CR tablet TAKE 1 TABLET BY MOUTH TWICE DAILY Commonly known as: KLOR-CON sacubitriL-valsartan 24-26 mg tablet Take 1 tablet by mouth 2 (two) times a day Commonly known as: ENTRESTO Outpatient Follow-Up: Future Appointments Date Time Provider Department Center 02/07/2024 3:30 PM Roberto Medley MD C/R [facility] 04/06/2024 3:30 PM Ari Bradley MD [facility] Cardiology Cosigned by Roberto Medley MD at 01/17/2024 11:21 AM CDT documented in this encounter Medications at Time of Discharge acetaminophen (TYLENOL) 500 mg tablet Take 2 tablets (1,000 mg total) by mouth every 6 (six) hours as needed for pain allopurinol (ZYLOPRIM) 300 mg tabletIndications :prevention of acute gout attack Take 1 tablet (300 mg total) by mouth nightly 06/01/2018 apixaban (ELIQUIS) 5 mg tablet Take 1 tablet (5 mg total) by mouth 2 (two) times a day 60 tablet 3 01/15/2024 cholecalciferol (VITAMIN D-3) 12778 unit capsuleIndication s:supplement Take 1 capsule (10,000 Units total) by mouth applications analyst before breakfast clopidogreL (PLAVIX) 75 mg tabletIndications :stent placed 2019 Take 1 tablet (75 mg total) by mouth every morning 90 tablet 3 01/11/2024 multivitamin capsuleIndication s:Vitamin Deficiency Prevention Take 1 capsule by mouth applications analyst before breakfast atorvastatin (LIPITOR) 80 mg tabletIndications :hyperlipidemia Take 1 tablet (80 mg total) by mouth applications analyst before breakfast 90 tablet 3 11/18/2023 4 carvediloL (COREG) 6.25 mg tablet Take 1 tablet (6.25 mg total) by mouth 2 (two) times a day with meals 200 tablet 2 11/18/2023 4 dapagliflozin propanediol (FARXIGA) 10 mg tablet Take 1 tablet (10 mg total) by mouth daily 21 tablet 12/31/2023 4 furosemide (LASIX) 80 mg tablet Take 1 tablet (80 mg total) by mouth daily 100 tablet 2 11/18/2023 4 nitroglycerin (NITROSTAT) 0.[address] 1 tablet (0.4 mg total) under the tongue every 5 (five) minutes as needed for chest pain (prn) 25 tablet 2 06/21/2022 4 oxyCODONE (ROXICODONE) 5 mg immediate release tabletIndications :Pain Take 1 tablet (5 mg total) by mouth every 4 (four) hours as needed for pain 10 tablet 01/10/2024 4 polyethylene glycol (MIRALAX) 17 gram/dose bulk powder Take 238 g by mouth once for 1 dose The day before surgery mix 238 grams Miralax with 64 ounces clear liquid. 11 AM begin drinking Miralax 8 ounces every 15 minutes until finished for bowel evacuation. 238 g 11/26/2023 4 potassium chloride ER 20 mEq CR tablet TAKE 1 TABLET BY MOUTH TWICE DAILY 200 tablet 2 10/01/2023 4 sacubitriL-valsar stanley (ENTRESTO) 24-26 mg tablet Take 1 tablet by mouth 2 (two) times a day 180 tablet 3 05/16/2023 4 documented as of this encounter Ordered Prescriptions Prescription Sig Dispense Quantity Refills Last Filled Start Date End Date clopidogreL (PLAVIX) 75 mg tabletIndications: stent placed 2019 Take 1 tablet (75 mg total) by mouth every morning 90 tablet 3 01/11/2024 apixaban (ELIQUIS) 5 mg tablet Take 1 tablet (5 mg total) by mouth 2 (two) times a day 60 tablet 3 01/15/2024 oxyCODONE (ROXICODONE) 5 mg immediate release tabletIndications: Pain Take 1 tablet (5 mg total) by mouth every 4 (four) hours as needed for pain 10 tablet 01/10/2024 4 documented in this encounter Discharge Disposition Disposition Code Departure Means Destination Comment s Discharge to home or self care documented in this encounter Progress Notes * Katie Hou MD - 01/09/2024 3:31 PM CDT Colorectal Surgery Post-Operative Check Overview Du Anderson is a 68 y.o. male who presents to the floor following a Procedure(s): ENDOSCOPIC TRANSANAL MICROSURGERY - CLOSURE OF FISTULA for Anal fistula Subjective and Interval - pain well controlled; denies shortness of breath, nausea, vomiting - sitting up in bed, watching TV Objective: Physical Exam: Constitutional: appears well-developed, no acute distress, awake/conversant, appropriate HEENT: normocephalic/atraumatic CV: palpable pulses bilaterally Resp: breathing unlabored on room air Abd: soft, non-tender, non-distended Vitals: 24hr Min/Max: Temp Min: 35.5 ??C (95.9 ??F) Max: 36 ??C (96.8 ??F) Pulse Min: 85 Max: 106 BP Min: 117/78 Max: 143/83 Resp Min: 10 Max: 18 SpO2 Min: 96 % Max: 99 % Most Recent : Vitals: 01/09/24 1420 BP: 134/82 Pulse: 101 Resp: 17 Temp: (!) 35.6 ??C (96.1 ??F) SpO2: 96% No intake/output data recorded. I/O this shift: In: 1100 [I.V.:1000; IV Piggyback:100] Out: 150 [Emesis/NG output:100; Blood:50] Assessment and Plan Patient doing well on the floor following endoscopic transanal closure of fistula - Regular diet - Pain control - Eliquis held Katie Hou MD S General Surgery, PGY1 documented in this encounter H&P Notes * Roberto Medley MD - 01/09/2024 10:19 AM CDT I have reviewed the H&P, examined the patient, and endorse the findings as written. Plan of Care : Based on the above findings, I consider Du Anderson to be an acceptable risk for : Procedure(s): ENDOSCOPIC TRANSANAL MICROSURGERY - CLOSURE OF FISTULA Source Note - Michela Izaguirre MD - 12/26/2023 10:10 AM CDT Images from the original note were not included. Center for Preoperative Assessment and Planning Preoperative Evaluation Record Evaluation type/location: TPAP from [facility] Planned procedure site: [facility] OR Date: 12/26/23 NOTE: This note represents [...] rectum , unroofing anal sinus on 11/22/23 ([facility]) who is beingevaluated prior to undergoing endoscopic [...] & Inferior Ramus) - Prior stent(s) date: 2015. + CHF (EF 45% per TTE 07/2022) Diastolic function: unknown/unspecified LVEF: 40-50%. + Current valvular disease - MR - mild; TR - mild. + Atrial fibrillation/flutter (on Eliquis) - Pertinent negatives: [place] ; CABG ; valve replacement; arrhythmia; pacemaker/ICD; PVD; DVT/PE; bare metal stent(s) and coronary angioplasty Comments: Followed by ring stamper, Dr Bradley-- Last OV 05/2023 Respiratory + [...] provided by telephone and electronically sent via [employer]. Patient verbalized understanding of instructions. Blood bank [...] to procedure. Please call the CPAP clinic ([phone]) with any questions. The patient is on [...] Please call the CPAP chart room clinician ([phone]) to revisit risk assessment, with any questions, or to discuss alternative management plans. Similar procedure completed [place] [facility] 04[place]2023 without issues. Discussed case with CPAP [...] 04/19/2022 Acute diastolic congestive heart failure (CMS/HCC) ([facility]) 04/19/2022 Low back pain, non-specific 06/08/2020 Coronary artery disease involving tulalip coronary artery of tulalip heart without angina pectoris 11/04/2015 Abnormal cardiovascular stress test 10/19/2015 Shortness of breath 10/19/2015 Hyperlipidemia 10/19/2015 Hypertension 10/19/2015 Past Medical History: Diagnosis Date Arthritis Atrial fibrillation (CMS/HCC) ([facility]) s/p cardioversion 2019-- Currently treated with Eliquis CHF (congestive heart failure) (CMS/[facility]) ([facility]) Coronary artery disease s/p multiple CRISTHIAN-- 04/2016 CRISTHIAN X 1 to RCA; 12/2015 CRISTHIAN X 2-- Superior Ramus & Prox LAD; 11/2015 CRISTHIAN X 2-- LCx & Inferior Ramus Gout Hypercholesterolemia Treated with statin Hypertension Dxd ~2003 Mitral regurgitation Morbid obesity ([facility]) PHILLIP (obstructive sleep apnea) CPAP machine nightly Osteoarthritis PONV (postoperative nausea and vomiting) Tricuspid regurgitation Past Surgical History: Procedure Laterality Date ANAL EXAMINATION UNDER ANESTHESIA 12/10/2022 Exam under anesthesia and seton placement ANAL EXAMINATION UNDER ANESTHESIA 04/26/2023 Exam under anesthesia and perineal drain placement CARDIAC STENT PLACEMENT 2016 12/2015 CRISTHIAN X 2-- Superior Ramus & [...] (TYLENOL) 500 mg tablet -- -- -- ProviderAbran MD allopurinol (ZYLOPRIM) 300 mg tablet 12/18/2023 [...] 1 tablet (80 mg total) by mouth applications analyst before breakfast Notes: Requesting 1 year supply [...] Requesting 1 year supply. cholecalciferol (VITAMIN D-3) 54803 unit capsule 12/19/2023 -- -- Abran Canales [...] 1 tablet (10 mg total) by mouth applications analyst before breakfast Notes: [id number] 09/05/2024 furosemide (LASIX) 80 mg tablet 12/19/2023 [...] 10 PM. multivitamin capsule 12/19/2023 -- -- Abran Canales MD neomycin (MYCIFRADIN) 500 mg tablet -- [...] (COREG) 6.25 mg tablet cholecalciferol (VITAMIN D-3) 64644 unit capsule clopidogreL (PLAVIX) 75 mg tablet [...] 45%. Stress test(s): N/A Cardiac catheterization(s): 04/25/2022 [facility] RESULTS: - Interventional Comments Right coronary artery [...] Medication protocol when under care of a TELECOMMUNICATIONS LINE INSTALLER Planned anesthesia: General Team communication plan: oral ET tube Induction: Induction: intravenous. Informed Consent: Discussed plan with TELECOMMUNICATIONS LINE INSTALLER. Anesthesia plan and risks discussed with patient. Consent and Attending signature: I and/or my designee have discussed the anesthesia plan, benefits, possible alternatives, parental presence at time of induction (if indicated), and clinically relevant risks that may include dental injury, unintentional awareness, and/or other complications. The patient and/or parent/legal guardian understand, and agree to proceed. All questions answered. documented in this encounter Nursing Notes * Dillan Jeter RN - 01/10/2024 10:58 AM CDT Patient was sent for discharge, ID band and IV line was removed. Discharge instruction was given and explained to the patient documented in this encounter Miscellaneous Notes * Plan of Care - Raissa Moe RN - 01/10/2024 11:00 AM CDT Patient care and status discussed at multidisciplinary discharge rounds. Charge Nurse, Therapy Lead, Seater Grinder, Pharmacist, Furniture Sales Associate, Studio Operations Manager, and Provider present. Patient discussed in care team rounds today, no needs identified for case management. * Plan of Care - Dillan Jeter RN - 01/10/2024 10:56 AM CDT Goals: Summary: Problem: Neurosensory Goal: Achieves stable or improved neurological status Outcome: Adequate for Discharge Goal: Absence of seizures Outcome: Adequate for Discharge Goal: Remains free of injury related to seizures activity Outcome: Adequate for Discharge Goal: Achieves maximal functionality and self care Outcome: Adequate for Discharge Goal: Ability to maintain intracranial pressure will improve Outcome: Adequate for Discharge Problem: Respiratory Goal: Achieves optimal ventilation and oxygenation Outcome: Adequate for Discharge Goal: Ability to maintain a clear airway will improve Outcome: Adequate for Discharge Goal: Mechanical Ventilation will be safely managed Outcome: Adequate for Discharge Problem: Cardiovascular Goal: Maintains optimal cardiac output and hemodynamic stability Outcome: Adequate for Discharge Goal: Absence of cardiac dysrhythmias or at baseline Outcome: Adequate for Discharge Goal: Cardiovascular status will improve Outcome: Adequate for Discharge Problem: Skin/Tissue Integrity Goal: Skin integrity remains intact Outcome: Adequate for Discharge Goal: Incisions, wounds, or drain sites healing without S/S of infection Outcome: Adequate for Discharge Goal: Oral mucous membranes remain intact Description: Outcome: Adequate for Discharge Problem: Musculoskeletal Goal: Return mobility to safest level of function Outcome: Adequate for Discharge Goal: Maintain proper alignment of affected body part Outcome: Adequate for Discharge Goal: Return ADL status to a safe level of function Outcome: Adequate for Discharge Goal: Ability to perform activities at highest level will improve Outcome: Adequate for Discharge Goal: Mobility, ROM and muscle strength will improve Outcome: Adequate for Discharge * Plan of Care - Yuli Vides RN - 01/09/2024 9:07 PM CDT Problem: Respiratory Goal: Achieves optimal ventilation and oxygenation Outcome: Progressing Problem: Skin/Tissue Integrity Goal: Skin integrity remains intact Outcome: Progressing Flowsheets (Taken 01/09/20242104) Skin integrity remains intact: Assess and document risk factors for pressure injury development Assess and document skin integrity Monitor for areas of redness and/or skin breakdown Goal: Incisions, wounds, or drain sites healing without S/S of infection Outcome: Progressing Flowsheets (Taken 01/09/20242104) Incision(s), Wound(s) or Drain Site(s) healing without S/S of infection: Assess and document skin integrity Assess and document dressing/incision, wound bed, drain sites and surrounding tissue Problem: Musculoskeletal Goal: Return mobility to safest level of function Outcome: Progressing Flowsheets (Taken 01/09/20242104) Return mobility to safest level of function: Assess patient stability and activity tolerance for standing, transferring and ambulating with or without assistive devices Assist with transfers and ambulation using safe patient handling equipment as needed Ensure adequate protection for wounds/incisions during mobilization Problem: Gastrointestinal Goal: Minimal or absence of nausea and vomiting Outcome: Progressing Flowsheets (Taken 01/09/20242104) Minimal or absence of nausea and vomiting: Assess gastrointestinal status * Plan of Care - Dayday Booker RN - 01/09/2024 3:31 PM CDT Goals: monitor perineal dressing, I&O, elevate, ambulate safely, pain control Summary: Problem: Neurosensory Goal: Achieves stable or improved neurological status Outcome: Progressing Goal: Absence of seizures Outcome: Progressing Goal: Remains free of injury related to seizures activity Outcome: Progressing Goal: Achieves maximal functionality and self care Outcome: Progressing Goal: Ability to maintain intracranial pressure will improve Outcome: Progressing Problem: Respiratory Goal: Achieves optimal ventilation and oxygenation Outcome: Progressing Goal: Ability to maintain a clear airway will improve Outcome: Progressing Goal: Mechanical Ventilation will be safely managed Outcome: Progressing Problem: Cardiovascular Goal: Maintains optimal cardiac output and hemodynamic stability Outcome: Progressing Goal: Absence of cardiac dysrhythmias or at baseline Outcome: Progressing Goal: Cardiovascular status will improve Outcome: Progressing Problem: Skin/Tissue Integrity Goal: Skin integrity remains intact Outcome: Progressing Goal: Incisions, wounds, or drain sites healing without S/S of infection Outcome: Progressing Goal: Oral mucous membranes remain intact Description: Outcome: Progressing Problem: Musculoskeletal Goal: Return mobility to safest level of function Outcome: Progressing Goal: Maintain proper alignment of affected body part Outcome: Progressing Goal: Return ADL status to a safe level of function Outcome: Progressing Goal: Ability to perform activities at highest level will improve Outcome: Progressing Goal: Mobility, ROM and muscle strength will improve Outcome: Progressing Problem: Gastrointestinal Goal: Minimal or absence of nausea and vomiting Outcome: Progressing Goal: Maintains or returns to baseline bowel function Outcome: Progressing Goal: Maintains adequate nutritional intake Outcome: Progressing Goal: Establish and maintain optimal ostomy function Outcome: Progressing Goal: Will show no signs and symptoms of gastrointestinal bleeding Outcome: Progressing Problem: Genitourinary Goal: Absence of urinary retention Outcome: Progressing Problem: Infection Goal: Absence of fever/infection during anticipated neutropenic period Outcome: Progressing Problem: Metabolic/Fluid and Electrolytes Goal: Electrolytes maintained within normal limits Outcome: Progressing Goal: Hemodynamic stability and optimal renal function maintained Outcome: Progressing Goal: Glucose maintained within prescribed range Outcome: Progressing Problem: Hematologic Goal: Maintains hematologic stability Outcome: Progressing * Op Note - Roberto Medley MD - 01/09/2024 10:45 AM CDT SURGICAL TEAM: Surgeons and Role: * Roberto Medley MD - Primary * Katie Hou MD - Resident - Assisting * Sandeep Bueno MD - Fellow ANESTHESIA: General PREOPERATIVE DIAGNOSIS (ES): Rectal perineal fistula POSTOPERATIVE DIAGNOSIS (ES): Rectal perineal fistula NAME OF OPERATION: Transanal Endoscopic closure of rectal perineal fistula INDICATIONS FOR PROCEDURE: The patient is a 68 y.o. 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 It has been nonhealing and on a recent exam, he had an internal opening in the rectum. He comes to the operating room for an attempt at TEM closure. OPERATIVE FINDINGS: There was relatively dense induration around the internal opening. Infection present at the time of surgery as evidenced by gross infection in the operative field. DESCRIPTION OF PROCEDURE: The patient was brought to the operating room and placed under general anesthesia in the right lateral decubitus position. After gentle anal dilatation, the TEM scope was passed transanally. The rectum was insufflated to 15 mm of mercury. The internal opening was visualized in the right low to mid r ectum. The internal opening was inspected. There were no masses. There was some granulation tissue within this opening. That was completely fulgurated. The internal opening was then closed with a running V lock suture in two layers. The procedure was terminated. ESTIMATED BLOOD LOSS: Minimal INTRAOPERATIVE FLUIDS: See anesthesia record. SPONGE/INSTRUMENT/NEEDLE COUNTS: Correct times two. PRESENCE STATEMENT: I was present for the entire procedure from start to finish. * Perioperative Nursing Note - Jenny Jorge RN - 12/19/2023 9:51 AM CDT [facility] Perioperative Nursing Note Telephone Preoperative Evaluation ([facility]) - TELEPHONE ONLY, NO PHYSICAL EXAM Date: 12/19/23 This assessment was completed with the patient. Vitals: 12/19/23 0940 Weight: (!) 153.3 kg (338 lb) Height: 195.6 cm (6' 5 ) CHEST CIRCUMFERENCE: n/a Social History Tobacco Use Smoking Status Never Passive exposure: Never Smokeless Tobacco Never Substance and Sexual Activity Drug Use Never Alcohol Use Q1: How often do you have a drink containing alcohol?: 2-4 times a month Q2: How many drinks containing alcohol do you have on a typical day when you are drinking?: 1 or 2 Outpatient Medications Marked as Taking for the 01/09/24 encounter (Hospital Encounter) Medication Sig Dispense Refill acetaminophen (TYLENOL) 500 mg tablet Take 2 tablets (1,000 mg total) by mouth every 6 (six) hours as needed for pain allopurinol (ZYLOPRIM) 300 mg tablet Take 1 tablet (300 mg total) by mouth nightly apixaban (ELIQUIS) 5 mg tablet Take 1 tablet (5 mg total) by mouth 2 (two) times a day (Patient taking differently: Take 1 tablet (5 mg total) by mouth 2 (two) times a day) 60 tablet 3 atorvastatin (LIPITOR) 80 mg tablet Take 1 tablet (80 mg total) by mouth applications analyst before breakfast 90 tablet 3 bisacodyL 5 mg tablet The day before surgery take 2 tabs at 10 am with 8 oz of clear liquid. At 12 pm, take 2 more tabs with 8 oz of clear liquid. 4 tablet 0 carvediloL (COREG) 6.25 mg tablet Take 1 tablet (6.25 mg total) by mouth 2 (two) times a day with meals (Patient taking differently: Take 1 tablet (6.25 mg total) by mouth 2 (two) times a day with meals) 200 tablet 2 cholecalciferol (VITAMIN D-3) 22166 unit capsule Take 1 capsule (10,000 Units total) by mouth earlymorning before breakfast clopidogreL (PLAVIX) 75 mg tablet Take 1 tablet (75 mg total) by mouth every morning (Patient taking differently: Take 1 tablet (75 mg total) by mouth every morning) 90 tablet 3 dapagliflozin (FARXIGA) 10 mg tablet Take 1 tablet (10 mg total) by mouth daily (Patient taking differently: Take 1 tablet (10 mg total) by mouth applications analyst before breakfast) 14 tablet 0 furosemide (LASIX) 80 mg tablet Take 1 tablet (80 mg total) by mouth daily (Patient taking differently: Take 1 tablet (80 mg total) by mouth every morning) 100 tablet 2 metroNIDAZOLE (FLAGYL) 500 mg tablet The day before surgery take metronidazole (Flagyl) 500 mg by mouth at 1 PM, 2 PM, and 10 PM. 3 tablet 0 multivitamin capsule Take 1 capsule by mouth applications analyst before breakfast neomycin (MYCIFRADIN) 500 mg tablet The day before surgery take neomycin 1000 mg (2 tablets) by mouth at 1 PM, 2 PM, and 10 PM. 6 tablet 0 nitroglycerin (NITROSTAT) 0.[address] 1 tablet (0.4 mg total) under the tongue every 5 (five) minutes as needed for chest pain (prn) 25 tablet 2 polyethylene glycol (MIRALAX) 17 gram/dose bulk powder Take 238 g by mouth once for 1 dose The day before surgery mix 238 grams Miralax with 64 ounces clear liquid. 11 AM begin drinking Miralax 8 ounces every 15 minutes until finished for bowel evacuation. 238 g 0 potassium chloride ER 20 mEq CR tablet TAKE 1 TABLET BY MOUTH TWICE DAILY 200 tablet 2 sacubitriL-valsartan (ENTRESTO) 24-26 mg tablet Take 1 tablet by mouth 2 (two) times a day (Patienttaking differently: Take 1 tablet by mouth 2 (two) times a day) 180 tablet 3 Implants Stent CloudRunner I/O Synergy Xd 4mm 48mm System Coronary Stent Everolimus [id number] - [id number] - [id number] - Implanted (Right) Coronary Artery Inventory item: Cequel Data SYNERGY XD 4MM 48MM SYSTEM CORONARY STENT EVEROLIMUS [id number] Model/Cat number: [id number] Serial number: [id number] Change Agent: CloudRunner I/O Lot number: [id number] As of 04/25/2022 Status: Implanted SKIN SCREENINGS Dawson index score: 85 NUTRITION PATIENT CARE PLANNING Advance Directives (For Healthcare) Have you reviewed your Advance Directive and is it valid for this stay?: Not applicable Advance Directive: Patient does not have advance directive Assistive Devices/DME: Cane, Eyeglasses, CPAP/BiPAP, Motorized scooter Hearing - Right Ear: Functional Hearing - Left Ear: Functional Discharge Planning Type of Residence: Private residence Living Arrangements: Spouse/significant other Support Systems: Spouse/significant other Patient expects to be discharged to:: 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 Arrival time and surgical time will be provided to the patient by their surgeon. You should wear clothing that is clean, loose, comfortable and easy to get in and out of on the dayof surgery. You should remove nail coverings, artificial nails and nail nigerien prior to the day of surgery. You should leave your valuables and any jewelry at home. No metal or piercings are allowed in the operating room. You should bring your insurance card, a photo ID (example: Photo Finish Photographer's License) and a method of payment for any insurance copay, deductible or copay for discharge medications. You should bring a complete, up-to-date, list of all your medications on the day of surgery, including any over the counter medications or supplements you may take. Please note on your medication list, the last date & time you took each medication. The healthcare team, on the day of surgery, will ask for this information. You should bring your Advanced Directive and/or Living Will with you on the day of surgery if you have not verified a copy is already in your Epic Chart. If you are having surgery at [facility], please arrive on the day of surgery with the name and phone number of your local 24 hour pharmacy. Due to evening discharges, your routine pharmacy may be closed. In order to obtain your prescriptions that evening, your surgeon may need to send prescriptions to this pharmacy or have you take prescriptions to this pharmacy when you are discharged. Without this information, you may not be able to obtain your prescriptions that evening. A Guide for Patients Having Surgery: Your Pathway to Excellent Care OUR GOAL IS TO PROVIDE YOU WITH EXCELLENT CARE Use this guide to learn about what you can do before, during and after surgery to help your recovery. You are the most important person on your health care team. By becoming informed and involved, you can contribute to the success of your surgery. If your surgeon's directions are different than those in this guide, talk with your nurse or surgeon to confirm the information. It is important that you understand how to take care of yourself at home after surgery. Be sure to bring this guide with you on the day of surgery and take it home with you after surgery. Write down questions for your nurse or surgeon on the last page of this booklet. Important pages to be reviewed BEFORE surgery: Page 1: QR codes for Surgery Center maps Page 3: Types of Anesthesia Page 5: Tips for the day & night before surgery Page 6: When to stop eating BEFORE surgery and examples of clear liquids Page 7-10: Preventing Infection: Chlorhexidine Gluconate (CHG) Bathing Instructions You may access A Guide for Patients Having Surgery: Your Pathway to Excellent Care by the followinglink: [email or web address] How To Prepare Your Skin For Surgery Below is the Pre-Surgical Bathing Protocol you should follow for your surgery. If your surgeon provides you different bathing instructions, please follow your surgeon's orders. Normal Bathing: Bathe with regular soap the night before and/or day of surgery. Normal Bathing Protocol Bathe with your normal soap the night before and/or the morning of surgery. Wear clean clothes or pajamas to sleep in. After showering DO NOT put on deodorant, hair products, conditioners, lotions, creams, powders, Vaseline or any non-essential products. Remove nail coverings, artificial nails and nail nigerien. Place clean linens on your bed the night before surgery. Shaving: You may shave your face, legs and underarms during your evening shower. Avoid shaving on the day of surgery. Travel/Exposure Screening: Travel Screening Have you traveled outside the [place] in the last 6 months?: No Exposure Screening Have you been exposed to anyone who is sick in the last 30 days?: No Have you been exposed to or tested positive for COVID-19 within the last 10 days?: No Infectious Disease Screening Are you having any of the following:: Cough New or worsening cough for more than one month? : No As of 07/31/2022 any COVID TESTING required for surgery will be set up by your surgeon's office. Please reach out to your surgeon's office if you develop any COVID symptoms, test positive for COVID or are exposed to a COVID positive person. If you have questions, please call the [facility] Staff at [phone], Saturday-Saturday 8am-4:30pm. All patients should read the below section: COVID 19 Updates & Visitor Policy: Please access [email or web address] for the most updated information. Information on [facility]: Please view [email or web address] (Patient & Visitor Information) for additional details regarding Advanced Directive forms, AWARE, directions, parking information, lodging, Internet access, dining and more. Information on [facility] or [facility] ([facility]): Please view [email or web address] (Patient and Visitor Information) for parking/directions and more. For MyChart information, to activate account or password recovery, please go to [email or web address] or call [phone] (toll-free: [phone]), Sat- Saturday 8am-5pm. Information for Suicide Prevention: National Suicide Prevention Lifeline (7-061- 737-QRGE (2568)) or call or text 420. Chat resources: [email or web address]. Surgery Times: For patients having surgery @ [facility], if your surgeon's office has not notified you of your surgery time by 2pm THE BUSINESS DAY BEFORE your surgery, please call the surgery center at [phone] and ask for your surgeon's office Dr Medley. The [facility] Planning ([facility]) does not provide arrival times for the day of surgery or provide the duration of surgery. This information is provided by your surgeon'soffice or by the center where you are having surgery. We appreciate your understanding. documented in this encounter Plan of Treatment Not on file documented as of this encounter Procedures Procedure Name Priority Date/Time Associated Diagnosis Comments ENDOSCOPIC TRANSANAL MICROSURGERY 01/09/2024 11:43 AM CDT Anal fistula POC ISTAT Routine 01/09/2024 9:10 AM CDT POCT GLUCOSE DEVICE Routine 01/09/2024 9 :08 AM CDT documented in this encounter Results * POC ISTAT (01/09/2024 9:10 AM CDT) K POC 3.7 3.3 - 4.9 mmol/L Comment: Interpretive Data This method is not able to assess for hemolysis, which may falsely increase potassium concentrations. If further testing is needed to evaluate this result, consider in-laboratory plasma potassium. Current Interpretive Data was last revised on 2022. POC Device Number [id number] CYNTHIA [email or web address] POC Performer [id number] CYNTHIA [email or web address] Blood 01/09/2024 9:10 AM CDT 01/09/2024 9:10 AM CDT Roberto Medley MD LAB BLOOD ORDERABLES Final Res ult Performing Organization Address City/[facility]/ZIP Co de Phone Number [facility] [id number] [facility]. Department [place] [address] * POCT glucose (01/09/2024 9:08 AM CDT) Pathologist [facility] Glucose, POC 100 70 - 199 mg/dL Comment: Interpretive Data Glucose is assumed to be non-fasting. Fasting Glucose reference ranges are: 0 - 150 years: ??70 mg/dL - 99 mg/dL Current interpretive data was last revised on 2014. POC Performer [id number] CYN[employer]IA [email or web address] POC Device Number [id number] CY[email or web address] Blood 01/09/2024 9:08 AM CDT 01/09/2024 9:08 AM CDT Roberto Medley MD LAB POCT ORDERABLES - DEVICE F inal Result Performing Organization Address City/[facility]/ZIP Co de Phone Number [facility]YARELI [facility] [address] [facility]. [place] [address] documented in this encounter Visit Diagnoses Diagnosis Anal fistula- Primary Anal fistula Anal fistula documented in this encounter Admitting Diagnoses Diagnosis Anal fistula documented in this encounter Administered Medications Inactive Administered Medications - up to 3 most recent administrations Medication Order MAR Action Action Date Dose Rate Site acetaminophen (TYLENOL) tablet 1,000 mg 1,000 mg, oral, Every 6 hours scheduled, First dose on Sat01/09/24 at 1800 Given 01/10/2024 5:31 AM CDT 1,000 mg Given 01/09/2024 11:10 PM CDT 1,000 mg Given 01/09/2024 6:44 PM CDT 1,000 mg allopurinoL (ZYLOPRIM) tablet 300 mg 300 mg, oral, Nightly, First dose on Sat01/09/24 at 2100, Indications: prevention of acute gout attackIndications:prevention of acute gout attack Given 01/09/2024 8:07 PM CDT 300 mg atorvastatin (LIPITOR) tablet 80 mg 80 mg, oral, Daily (early AM), First dose on Sat01/10/24 at 0600, Indications: hyperlipidemiaIndications:hyperlipidemia Given 01/10/2024 5:31 AM CDT 80 mg carvediloL (COREG) tablet 6.25 mg 6.25 mg, oral, 2 times daily with meals (bkfst, dinner), First dose on Sat01/09/24 at 1800, Hold for SBP <120 or HR <60 Given 01/10/2024 9:47 AM CDT 6.25 mg Given 01/09/2024 6:44 PM CDT 6.25 mg dextrose 5% and Lactated Ringer's infusion 75 mL/hr, intravenous, Continuous, Starting on Sat01/09/24 at 1500, Discontinue POD1 after breakfast New Bag 01/10/2024 4:27 AM CDT 75 mL/hr 75 mL/hr New Bag 01/09/2024 3:13 PM CDT 75 mL/hr 75 mL/hr enoxaparin (LOVENOX) syringe 40 mg 40 mg, subcutaneous, Every 12 hours scheduled, First dose on Sat01/09/24 at 2100, Indications: Deep Vein Thrombosis PreventionIndications:Deep Vein Thrombosis Prevention Given 01/10/2024 9:48 AM CDT 40 mg Left Lower Abdomen Given 01/09/2024 8:07 PM CDT 40 mg Ri ght Lower Abdomen HYDROmorphone (DILAUDID) injection 0.2 mg 0.2 mg, intravenous, Administer over 2 Minutes, Every 4 hours PRN, 2nd line for pain, Starting on Alina 01/09/24 at 1520 mineral oil As needed, Starting on Alina 01/09/24 at 1219, Intra-Op Given 01/09/2024 12:19 PM CDT 1 Application ondansetron (ZOFRAN) injection 4 mg 4 mg, intravenous, Administer over 2 Minutes, Every 4 hours PRN, nausea, vomiting, 1st line, Starting on Alina 01/09/24 at 1507, Indications: for nausea/vomitingIndications:for nausea/vomiting Given 01/09/2024 3:13 PM CDT 4 mg oxyCODONE (ROXICODONE) tablet 5 mg 5 mg, oral, Every 4 hours PRN, 1st line for pain, Starting on Alina 01/09/24 at 1520, Indications: PainIndications:Pain prochlorperazine (COMPAZINE) injection 5 mg 5 mg, intravenous, Administer over 2 Minutes, Every 6 hours PRN, nausea, vomiting, Starting on Alina 01/09/24 at 1507 sodium chloride 0.9% flush 0.5-20 mL 0.5-20 mL, intra-catheter, Every 8 hours scheduled, First dose on Alina 01/09/24 at 1500, Flush volume based on line type and size. Given 01/10/2024 5:31 AM CDT 10 mL Given 01/09/2024 9:17 PM CDT 10 mL Given 01/09/2024 3:13 PM CDT 10 mL sodium chloride 0.9% irrigation As needed, Starting on Alina 01/09/24 at 1240, Intra-Op Given 01/09/2024 12:40 PM CDT 1,000 mL documented in this encounter Discontinued Medications Medication Sig Discontinue Reason Start Date End Da te bisacodyL 5 mg tablet The day before surgery take 2 tabs at 10 am with 8 oz of clear liquid. At 12 pm, take 2 more tabs with 8 oz of clear liquid. 11/26/2023 01/09/2024 neomycin (MYCIFRADIN) 500 mg tablet The day before surgery take neomycin 1000 mg (2 tablets) by mouth at 1 PM, 2 PM, and 10 PM. 11/26/2023 01/09/2024 metroNIDAZOLE (FLAGYL) 500 mg tablet The day before surgery take metronidazole (Flagyl) 500 mg by mouth at 1 PM, 2 PM, and 10 PM. 11/26/2023 01/09/2024 apixaban (ELIQUIS) 5 mg tablet Take 1 tablet (5 mg total) by mouth 2 (two) times a day 07/06/2020 01/10/2024 clopidogreL (PLAVIX) 75 mg tabletIndications:gela nt placed 2018 Take 1 tablet (75 mg total) by mouth every morning 11/18/2023 01/10/2024 documented as of this encounter Active and Recently Administered Medications Times are shown in CDT. Scheduled Medication Order 01/08/2024 01/09/2024 01/10/2024 acetaminophen (TYLENOL) tablet 1,000 mg 1,000 mg, oral, Every 6 hours scheduled, First dose on Sat01/09/24 at 1800 1844 (Given - Provider: Dayday Booker RN)2310 (Given - Provider: Yuli Vides RN) 0531 (Given - Provider: Yuli Vides RN) allopurinoL (ZYLOPRIM) tablet 300 mg 300 mg, oral, Nightly, First dose on Sat01/09/24 at 2100, Indications: prevention of acute gout attack 2006 (Given - Provider: Yuli Vides RN) atorvastatin (LIPITOR) tablet 80 mg 80 mg, oral, Daily (early AM), First dose on Sat01/10/24 at 0600, Indications: hyperlipidemia 0531 (Given - Provid er: Yuli Vides RN) calcium carbonate (TUMS) chewable tablet 500 mg (COMPLETED) 500 mg (200 mg of elemental calcium), oral, Once, On Sat01/09/24 at 2345, For 1 dose 2311 (Given - Provider: Yuli Vides RN) carvediloL (COREG) tablet 6.25 mg 6.25 mg, oral, 2 times daily with meals (bkfst, dinner), First dose on Sat01/09/24 at 1800, Hold for SBP <120 or HR <60 1844 (Given - Provider: Dayday Booker, SURJIT) 0947 (Given - Provider: Dillan Jeter, SURJIT) enoxaparin (LOVENOX) syringe 40 mg 40 mg, subcutaneous, Every 12 hours scheduled, First dose on Sat01/09/24 at 2100, Indications: Deep Vein Thrombosis Prevention 2006 (Given - Provider: Yuli Vides, RN) 0948 (Given - Provider: Dillan Jeter, SURJIT) ertapenem (INVanz) 1,000 mg in sodium chloride 0.9% 100 mL IVPB (CANCELED) 1,000 mg, intravenous, at 200 mL/hr, Administer over 30 Minutes, Every 24 hours scheduled, First dose on Sat01/09/24 at 1145, For 1 dose, Intra-Op, Do not mix with dextrose or other medications. Mini-bag Plus, Indications: Prophylaxis, Surgical 1217 (New Bag - Provider: Abigail Steen CRNA) furosemide (LASIX) tablet 80 mg 80 mg, oral, Daily, First dose on Sat01/10/24 at 0900, Indications: Edema, On hold since Sat01/10/2024 at 0711 until manually unheld 0711 (Held by Provid er - Provider: Natacha Pa NP - Reason: Change in Patient Status)0900 (Dose Auto Held - Provider: Natacha Pa NP)1521 (Unheld by Provider - Provider: Automatic Discharge Provider) sacubitriL-valsartan (ENTRESTO) 24-26 mg tablet 1 tablet 1 tablet, oral, 2 times daily, First dose on Sat01/09/24 at 1800, On hold since Sat01/09/2024 at 1507 until manually unheld 1507 (Held by Provider - Provider: Katie Hou MD - Reason: Change in Patient Status)1800 (Not Given - Provider: Dayday Booker RN - Reason: See Provider Order) 0900 (Dose Auto Held - Provider: Katie Hou MD)1521 (Unheld by Provider - Provider: Automatic Discharge Provider) sodium chloride 0.9% flush 0.5-20 mL 0.5-20 mL, intra-catheter, Every 8 hours scheduled, First dose on Sat01/09/24 at 1500, Flush volume based on line type and size. 1513 (Given - Provider: Dayday Booker RN)2117 (Given - Provider: Yuli Vides, RN) 0531 (Given - Provider: Yuli Vides, RN) Continuous Medication Order 01/08/2024 01/09/2024 01/10/2024 dextrose 5% and Lactated Ringer's infusion 75 mL/hr, intravenous, Continuous, Starting on Alina 01/09/24 at 1500, Discontinue POD1 after breakfast 1513 (New Bag - Provider: Dayday Booker RN) 0427 (New Bag - Provider: Yuli Vides, RN)1521 (Due: Stopped) Lactated Ringer's (LR) infusion () 30 mL/hr, intravenous, Continuous, Starting on Alina 01/09/24 at 0915, For 4 hours, Use a 500 ml bag for End Stage Renal Disease Patients. Discontinue if fluid still running once patient arrives to floor. 0907 (New Bag - Provider: Miki Rubio RN)1140 (Rate/Dose Verify - Provider: Abigail Steen CRNA)1314 (Paused - Provider: Abigail Steen CRNA - Comment: Switch to gravity)1315 (Restarted - Provider: Abigail Steen CRNA) Lactated Ringer's (LR) infusion () 125 mL/hr, intravenous, Continuous, Starting on Alina 01/09/24 at 1400, For 4 hours, Phase I, Discontinue upon discharge from PACU to the floor. 1348 (New Bag - Provider: Brigida Piper RN) PRN Medication Order 01/08/2024 01/09/2024 01/10/2024 Carrier Fluids for Secondary Infusion - 0.9% Sodium Chloride 30 mL, intravenous, As needed, For priming tubing and/or flushing, Starting on Alina 01/09/24 at 1420, 0-250 ml/hr to flush line after IV infusions when no maintenance IV ordered. Infuse 30mL at the same rate as the secondary infusion. Run as primary IV, not intended for KVO. HYDROmorphone (DILAUDID) injection 0.2 mg (CANCELED) 0.2 mg, intravenous, Administer over 2 Minutes, Every 5 min PRN, 1st line for pain, Use as 1st line pain med for inpatients or for patients with extremely severe pain., Starting on Alina 01/09/24 at 1328, Phase I, Use as first line pain medication for inpatients. May use as first line medication for outpatients with extremely severe pain (7 out of 10 or above), history of opioid tolerance, or history of Chronic Pain with opioid tolerance, after consulting with Anesthesiologist. Inform anesthesiologist when dose reaches 2 mg for inpatients or 1 mg for outpatients., Indications: Chronic Pain with Opioid Tolerance, Pain, Severe Pain with Opioid Tolerance 1330 (Given - Provider: Brigida Piper, SURJIT)1335 (Given - Provider: Brigida Piper RN)1340 (Given - Provider: Brigida Piper RN)1350 (Given - Provider: Brigida Piper RN)1415 (Given - Provider: Brigida Piper RN) HYDROmorphone (DILAUDID) injection 0.2 mg 0.2 mg, intravenous, Administer over 2 Minutes, Every 4 hours PRN, 2nd line for pain, Starting on Alina 01/09/24 at 1520 mineral oil (CANCELED) As needed, Starting on Alina 01/09/24 at 1219, Intra-Op 1219 (Given - Provider: Roberto Medley MD - Comment: instrument use) ondansetron (ZOFRAN) injection 4 mg 4 mg, intravenous, Administer over 2 Minutes, Every 4 hours PRN, nausea, vomiting, 1st line, Starting on Alina 01/09/24 at 1507, Indications: for nausea/vomiting 1513 (Given - Provider: Dayday Booker, SURJIT) oxyCODONE (ROXICODONE) tablet 5 mg 5 mg, oral, Every 4 hours PRN, 1st line for pain, Starting on Alina 01/09/24 at 1520, Indications: Pain prochlorperazine (COMPAZINE) injection 5 mg 5 mg, intravenous, Administer over 2 Minutes, Every 6 hours PRN, nausea, vomiting, Starting on Alina 01/09/24 at 1507 sodium chloride 0.9% flush 0.5-20 mL 0.5-20 mL, intra-catheter, As needed, line care, Starting on Alina 01/09/24 at 1420, Flush volume based on line type and size. Flush before and after each use. sodium chloride 0.9% irrigation (CANCELED) As needed, Starting on Alina 01/09/24 at 1240, Intra-Op 1240 (Given - Provider: Roberto Medley MD - Comment: on field for irrigation) documented in this encounter Orders Medications Ordered That Laith ht Not Have Been Administered Count Last Ordered Date First Ordered Date acetaminophen (TYLENOL) tablet 1,000 mg 1 0 01/09/2024 acetaminophen (TYLENOL) tablet 500 mg 1 01/2024 allopurinoL (ZYLOPRIM) tablet 300 mg 1 01/2024 atorvastatin (LIPITOR) tablet 80 mg 1 01/08 calcium carbonate (TUMS) ezequiel wable tablet 500 mg 1 01/09/2024 Carrier Fluids for Secondary Infusion - 0.9% Sodium Chloride 1 01/09/2024 carvediloL (COREG) tablet 6.25 mg 1 024 dextrose 5% and Lactated Ringer's infusion 1 01/09/2024 diphenhydrAMINE (BENADRYL) 5 0 mg/mL injection 12.5 mg 1 01/09/2024 enoxaparin (LOVENOX) syringe 40 mg 1 2023 ertapenem (INVanz) 1,000 mg in sodium chloride 0.9% 100 mL IVPB 1 01/09/2024 famotidine (PEPCID) injection 20 mg 1 01/08 fentaNYL (SUBLIMAZE) preserv ative free injection 25 mcg 1 01/09/2024 furosemide (LASIX) tablet 80 mg 1 4 hydrALAZINE (APRESOLINE) injection 5 mg 1 0 01/09/2024 HYDROcodone-acetaminophen (N ORCO) 5-325 mg per tablet 1 tablet 1 01/09/2024 HYDROmorphone (DILAUDID) injection 0.2 mg 2 01/09/2024 labetaloL (NORMODYNE,TRANDAT E) injection 5 mg 1 01/09/2024 Lactated Ringer's (LR) infusion 2 lidocaine (PF) (XYLOCAINE) 1 0 mg/mL (1 %) preservative free injection 2-10 mg 1 01/09/2024 meperidine (DEMEROL) preserv ative free injection 12.5 mg 1 01/09/2024 naloxone (NARCAN) 0.4 mg/mL injection 0.04-0.4 mg 1 01/09/2024 ondansetron (ZOFRAN) injection 4 mg 2 01/08 oxyCODONE (ROXICODONE) tablet 5 mg 1 2023 prochlorperazine (COMPAZINE) injection 5 mg 2 01/09/2024 sacubitriL-valsartan (ENTRES TO) 24-26 mg tablet 1 tablet 1 01/09/2024 scopolamine patch 72 hour 1 patch 1 024 sodium chloride 0.9% flush 0.5-20 mL 3 01/2024 Diet Count Last Ordered Date First Orde red Date ADULT DISCHARGE DIET 1 01/10/2024 Nursing Count Last Ordered Date First Orde red Date DISCHARGE ACTIVITY 4 01/10/2024 DISCHARGE CALL PROVIDER 6 01/10/2024 DISCHARGE DRESSING 2 01/10/2024 DISCHARGE INSTRUCTIONS 1 01/10/2024 Admission Count Last Ordered Date First Orde red Date ADMIT TO INPATIENT 2 01/10/2024 INITIATE OUTPATIENT IN A BED 1 01/09/2024 Discharge Count Last Ordered Date First Orde red Date DISCHARGE PATIENT 1 01/10/2024 documented in this encounter Care Teams Event Technician Relationship Specialty Start Date End Date Gianluca Price MD PCP - General 06/18/17 Ayden Corona DO [address] [facility] [address] [place] [address] Referring Physician Surgery 10/29/22 Roberto Medley MD [phone] [place] [address] Surgeon Colon and Rectal Surgery 11/23/22 documented as of this encounter
--- OUTSIDE RECORDS SUMMARY | 2024-10-05 02:49 | XMS_ITS | Encounter Summary ---
Author Organization [facility] Address [address] [place] [address] Phone Care Team Providers Care Land Examiner Name Role Phone Gianluca Price MD Primary Care Provider Ayden Corona DO Unavailable [phone] Roberto Medley MD Unavailable [phone] Encounter Details Date Type Department Care Team (Late st Contact Info) Description 05/25/2024 Telephone [facility] Cardiology [address] [facility] Advanced Medicine 8th [place] [address] [place] [address] Lori Hernandez Social History Tobacco Use Types Packs/Day Years [...] on file 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 Gender Identity Not on file Sexual Orientation Not on file Occupation Industry Job Start Date Job End Date Retired Not on file Not on file Not on file documented as of this encounter Miscellaneous Notes * Telephone Encounter - Lori Hernandez - 05/25/2024 11:15 AM CDT [facility] CALLING TO R/S 10/15/24 F/U APPT documented in this encounter Plan of Treatment Not on file documented as of this encounter Visit Diagnoses Not on filedocumented in this encounter Care Teams Land Examiner Relationship Specialty Start Date End Date Gianluca Price MD PCP - General 06/18/17 Ayden Corona DO [address] [address] Referring Physician Surgery 10/29/22 Roberto Medley MD [phone] [place] [address] Surgeon Colon and Rectal Surgery 11/23/22 documented as of this encounter
--- OUTSIDE RECORDS SUMMARY | 2024-10-05 02:49 | XMS_ITS | Encounter Summary ---
Author Organization [facility] Address [address] [place] [address] Care Team Providers Care Production Pattern Maker Name Role Phone Gianluca Price MD Primary Care Provider ChloeAyden DO Unavailable [phone] Roberto Medley MD Unavailable [phone] Reason for Visit * Auth/Cert (Routine) Specialty Diagnoses / Procedures Referred By Contac t Referred To Contact Diagnoses Anal fistula Anal fistula [K60.3] Procedures MS RECTAL TUMOR EXCISION TRANSANAL ENDOSCOPIC MS CLOSURE RECTOVESICAL FISTULA MS UNLISTED PROCEDURE RECTUM ENDOSCOPIC TRANSANAL MICROSURGERY - CLOSURE OF FISTULA Referral ID Status Reason Start Date Expiration Date Visits Re quested Visits Authorized [id number] 1 1 Encounter Details Date Type Department Care Team (Latest Contact Info) Description 01/09/2024 8:28 AM CDT - 01/10/2024 11:21 AM CDT Hospital Encounter [facility] [address] [address] [place] [address] Roberto Medley MD [phone] [place] [address] Anal fistula (Primary Dx) Discharge Disposition: Discharge to home or self care Social History Tobacco Use Types Packs/Day Years [...] on file 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 Gender Identity Not on file Sexual Orientation Not on file Occupation Industry Job Start Date Job End Date Retired Not on file Not on file Not on file documented as of this encounter Last Filed Vital Signs Vital Sign Reading Time Taken Comments Blood Pressure 109/70 01/10/2024 3:35 AM CDT Pulse 78 01/10/2024 3:35 AM CDT Temperature 36.1 ??C (97 ??F) 01/10/2024 3:35 AM CDT Respiratory Rate 17 01/10/2024 3:30 AM CDT Oxygen Saturation 99% 01/10/2024 6:05 AM CDT Inhaled Oxygen Concentration - - Weight 153.3 kg (338 lb) 12/19/2023 9:40 AM CDT Height 195.6 cm (6' 5 ) 12/19/2023 9:40 AM CDT Body Mass Index 40.08 12/19/2023 9:40 AM CDT documented in this encounter Discharge Summaries * Natacha Pa NP - 01/10/2024 8:13 AM CDT Inpatient Discharge Summary BRIEF OVERVIEW Admitting Provider: Roberto Medley MD Discharge Provider: Roberto Medley MD Primary Care Physician at Discharge: Gianluca Price MD [phone] Admission Date: 01/09/2024 Discharge Date: 01/10/2024 Admission Location: [facility] Problems/Diagnoses: Principal Problem (Resolved): Anal fistula Active Problems: No Active Problems: There are no active problems currently on the Problem List. Please update the Problem List and refresh. DETAILS OF HOSPITAL STAY Presenting Problem/History of Present Illness: Du Anderson 67 year old male s/p EUA rectum , unroofing anal sinus on 11/22/23 ([facility]) who presentsfor an endoscopic transanal microsurgery- [...] 1 tablet (80 mg total) by mouth tombstone polisher before breakfast For: excessive fat in the blood Commonly known as: LIPITOR carvediloL 6.25 mg tablet Take 1 tablet (6.25 mg total) by mouth 2 (two) times a day with meals Commonly known as: COREG cholecalciferol 09563 unit capsule Take 1 capsule (10,000 Units total) by mouth tombstone polisher before breakfast For: supplement Commonly known as: [...] multivitamin capsule Take 1 capsule by mouth tombstone polisher before breakfast For: treatment to prevent vitamin [...] 02/07/2024 3:30 PM Roberto Medley MD C/R [facility] 04/06/2024 3:30 PM Ari Bradley MD [facility] Cardiology Cosigned by Roberto Medley MD at [...] 60 tablet 3 01/15/2024 cholecalciferol (VITAMIN D-3) 13450 unit capsuleIndication s:supplement Take 1 capsule (10,000 Units total) by mouth tombstone polisher before breakfast clopidogreL (PLAVIX) 75 mg tabletIndications :stent placed 2019 Take 1 tablet (75 mg total) by mouth every morning 90 tablet 3 01/11/2024 multivitamin capsuleIndication s:Vitamin Deficiency Prevention Take 1 capsule by mouth tombstone polisher before breakfast atorvastatin (LIPITOR) 80 mg tabletIndications :hyperlipidemia Take 1 tablet (80 mg total) by mouth tombstone polisher before breakfast 90 tablet 3 11/18/2023 4 [...] finished for bowel evacuation. 238 g 11/26/2023 07/01/202 4 potassium chloride ER 20 mEq CR [...] Preoperative Evaluation Record Evaluation type/location: TPAP from [facility] Planned procedure site: [facility] OR Date: 12/26/23 NOTE: This note [...] rectum , unroofing anal sinus on 11/22/23 ([facility]) who is beingevaluated prior to undergoing endoscopic [...] Atrial fibrillation/flutter (on Eliquis) - Pertinent negatives: GA ; CABG ; valve replacement; arrhythmia; pacemaker/ICD; PVD; DVT/PE; bare metal stent(s) and coronary angioplasty Comments: Followed by lay brother, Dr Bradley-- Last OV 05/2023 Respiratory + [...] provided by telephone and electronically sent via [employer]. Patient verbalized understanding of instructions. Blood bank [...] to procedure. Please call the CPAP clinic ([phone]) with any questions. The patient is on [...] Please call the CPAP chart room clinician ([phone]) to revisit risk assessment, with any questions, or to discuss alternative management plans. Similar procedure completed at [facility] [place] [place] 04/2023 without issues. Discussed case with [...] pain 04/19/2022 Acute diastolic congestive heart failure (CMS/[facility]) ([facility]) 04/19/2022 Low back pain, non-specific 06/08/2020 Coronary artery disease involving [place] coronary artery of [place] heart without angina pectoris 11/04/2015 Abnormal cardiovascular stress test 10/19/2015 Shortness of breath 10/19/2015 Hyperlipidemia 10/19/2015 Hypertension 10/19/2015 Past Medical History: Diagnosis Date Arthritis Atrial fibrillation (CMS/[facility]) ([facility]) s/p cardioversion 2019-- Currently treated with Eliquis CHF (congestive heart failure) ([facility]) ([facility]) Coronary artery disease s/p multiple CRISTHIAN-- 04/2016 CRISTHIAN X 1 to RCA; 12/2015 CRISTHIAN X 2-- Superior Ramus & Prox LAD; 11/2015 CRISTHIAN X 2-- LCx & Inferior Ramus Gout Hypercholesterolemia Treated with statin Hypertension Dxd ~2003 Mitral regurgitation Morbid obesity (HCC) PHILLIP (obstructive sleep apnea) CPAP machine nightly [...] 1 tablet (80 mg total) by mouth tombstone polisher before breakfast Notes: Requesting 1 year supply [...] Requesting 1 year supply. cholecalciferol (VITAMIN D-3) 30472 unit capsule 12/19/2023 -- -- Abran Canales [...] 1 tablet (10 mg total) by mouth tombstone polisher before breakfast Notes: [id number] 09/05/2024 furosemide (LASIX) 80 mg tablet 12/19/2023 [...] (COREG) 6.25 mg tablet cholecalciferol (VITAMIN D-3) 40076 unit capsule clopidogreL (PLAVIX) 75 mg tablet [...] 45%. Stress test(s): N/A Cardiac catheterization(s): 04/25/2022 [facility] RESULTS: - Interventional Comments Right coronary artery [...] Medication protocol when under care of a PROPERTY MASTER Planned anesthesia: General Team communication plan: oral ET tube Induction: Induction: intravenous. Informed Consent: Discussed plan with PROPERTY MASTER. Anesthesia plan and risks discussed with patient. [...] multidisciplinary discharge rounds. Charge Nurse, Therapy Lead, [facility] Shift Lead, Pharmacist, Shirt Trimmer, Senior Advisory, and Provider present. Patient discussed in care [...] 1 tablet (80 mg total) by mouth tombstone polisher before breakfast 90 tablet 3 bisacodyL 5 [...] meals) 200 tablet 2 cholecalciferol (VITAMIN D-3) 01086 unit capsule Take 1 capsule (10,000 Units [...] 1 tablet (10 mg total) by mouth tombstone polisher before breakfast) 14 tablet 0 furosemide (LASIX) [...] multivitamin capsule Take 1 capsule by mouth tombstone polisher before breakfast neomycin (MYCIFRADIN) 500 mg tablet [...] a day) 180 tablet 3 Implants Stent Yidio Synergy Xd 4mm 48mm System Coronary Stent Everolimus [id number] - [id number] - [id number] - Implanted (Right) Coronary Artery Inventory item: [employer] SYNERGY XD 4MM 48MM SYSTEM CORONARY STENT EVEROLIMUS [id number] Model/Cat number: [id number] Serial number: [id number] Kick Boxer: Yidio Lot number: [id number] As of 04/25/2022 Status: Implanted SKIN SCREENINGS [...] expects to be discharged to:: Private residence ASSURANCE ANALYST NO ADDITIONAL COMMENTS/ FOLLOW UP * Pre-Procedure [...] remove nail coverings, artificial nails and nail macedonian prior to the day of surgery. You should leave your valuables and any jewelry at home. No metal or piercings are allowed in the operating room. You should bring your insurance card, a photo ID (example: Preventative Maintenance Technician's License) and a method of payment for [...] Chart. If you are having surgery at [facility], please arrive on the day of surgery [...] Pathway to Excellent Care by the followinglink: [email or web address] How To Prepare Your Skin For Surgery [...] Remove nail coverings, artificial nails and nail macedonian. Place clean linens on your bed the [...] questions, please call the CPAP Staff at [phone], Saturday-Saturday 8am-4:30pm. All patients should read the below section: COVID 19 Updates & Visitor Policy: Please access [email or web address] for the most updated information. Information on [facility]: Please view [email or web address] (Patient & Visitor Information) for additional details regarding Advanced Directive forms, AWARE, directions, parking information, lodging, Internet access, dining and more. Information on [facility] or [facility] ([facility]): Please view [email or web address] (Patient and Visitor Information) for parking/directions and more. For MyChart information, to activate account or password recovery, please go to [email or web address] or call [phone] (toll-free: [phone]), Sat- Saturday 8am-5pm. Information for Suicide Prevention: National Suicide Prevention Lifeline (5-181- 509-FUNW (8969)) or call or text 407. Chat resources: SocialTagg.100e.com. Surgery Times: For patients having surgery @ [facility], if your surgeon's office has not notified you of your surgery time by 2pm THE BUSINESS DAY BEFORE your surgery, please call the surgery center at [phone] and ask for your surgeon's office Dr [...] * POC ISTAT (01/09/2024 9:10 AM CDT) Pathologist [facility] K POC 3.7 3.3 - 4.9 mmol/L Comment: Interpretive Data This method is not able to assess for hemolysis, which may falsely increase potassium concentrations. If further testing is needed to evaluate this result, consider in-laboratory plasma potassium. Current Interpretive Data was last revised on 2022. POC Device Number [id number] CYNTHIA RICECrowd FusionJENNIFER POC Performer [id number] CYNTHIA TUTTLE Blood 01/09/2024 9:10 AM CDT 01/09/2024 9:10 AM CDT Roberto Medley MD LAB BLOOD ORDERABLES Final Res ult Performing Organization Address [facility] Co de Phone Number CYNTHIA [facility] [address] [place] [address] * POCT glucose (01/09/2024 9:08 AM CDT) [facility] Glucose, POC 100 70 - 199 mg/dL Comment: Interpretive Data Glucose is assumed to be non-fasting. Fasting Glucose reference ranges are: 0 - 150 years: ??70 mg/dL - 99 mg/dL Current interpretive data was last revised on 2014. POC Performer [id number] CYNTHIA Targazyme POC Device Number [id number] CYNTHIA RICEWJENNIFER Blood 01/09/2024 9:08 AM CDT 01/09/2024 9:08 AM CDT Roberto Medley MD LAB POCT ORDERABLES - DEVICE F inal Result Performing Organization Address [facility] Co de Phone Number CYNTHIA BJWCH [address] [place] [address] documented in this encounter Visit Diagnoses Diagnosis Anal fistula- Primary Anal fistula documented in this encounter Admitting Diagnoses Diagnosis Anal fistula documented in this encounter Administered Medications Inactive Administered Medications - up to 3 most recent administrations Medication Order MAR Action Action Date Dose Rate Site acetaminophen (TYLENOL) tablet 1,000 mg 1,000 mg, oral, Every 6 hours scheduled, First dose on Alina 01/09/24 at 1800 Given 01/10/2024 5:31 AM CDT [...] Given 01/10/2024 5:31 AM CDT 80 mg calcium carbonate (TUMS) chewable tablet 500 mg 500 mg (200 mg of elemental calcium), oral, Once, On Sat01/09/24 at 2345, For 1 dose Given 01/09/2024 11:11 PM CDT 500 mg carvediloL (COREG) tablet 6.25 mg 6.25 [...] Opioid Tolerance, Pain, Severe Pain with Opioid ToleranceIndications:Chronic Pain with Opioid Tolerance,Pain,Severe Pain with Opioid Tolerance Given 01/09/2024 2:15 PM CDT 0.2 mg Given 01/09/2024 1:50 PM CDT 0.2 mg Given 01/09/2024 1:40 PM CDT 0.2 mg HYDROmorphone (DILAUDID) injection 0.2 mg 0.2 mg, intravenous, Administer over 2 Minutes, Every 4 hours PRN, 2nd line for pain, Starting on Alina 01/09/24 at 1520 Lactated Ringer's (LR) infusion 30 mL/hr, intravenous, Continuous, Starting on Alina 01/09/24 at 0915, For 4 hours, Use a 500 ml bag for End Stage Renal Disease Patients. Discontinue if fluid still running once patient arrives to floor. Restarted 01/09/2024 1:15 PM CDT Rate/Dose Verify 01/09/2024 11:40 AM CDT 30 mL/ hr New Bag 01/09/2024 9:07 AM CDT 30 mL/hr 30 mL/hr Lactated Ringer's (LR) infusion 125 mL/hr, intravenous, Continuous, Starting on Alina 01/09/24 at 1400, For 4 hours, Phase I, Discontinue upon discharge from PACU to the floor. New Bag 01/09/2024 1:48 PM CDT 125 mL/hr 125 mL/hr ondansetron (ZOFRAN) injection 4 mg 4 mg, [...] Given 01/09/2024 3:13 PM CDT 10 mL documented in this encounter Discontinued Medications [...] Every 6 hours scheduled, First dose on Alina 01/09/24 at 1800 1844 (Given - Provider: Dayday Booker RN)2310 (Given - Provider: Yuli Vides RN) 0531 (Given - Provider: Yuli Vides RN) allopurinoL (ZYLOPRIM) tablet 300 mg 300 mg, oral, Nightly, First dose on Alina 01/09/24 at 2100, Indications: prevention of acute gout attack 2006 (Given - Provider: Yuli Vides RN) atorvastatin (LIPITOR) tablet 80 mg 80 mg, oral, Daily (early AM), First dose on Sat01/10/24 at 0600, Indications: hyperlipidemia 0531 (Given - Provid er: Yuli Vides RN) calcium carbonate (TUMS) chewable tablet 500 mg (COMPLETED) 500 mg (200 mg of elemental calcium), oral, Once, On Alina 01/09/24 at 2345, For 1 dose 2311 (Given - Provider: Yuli Vides RN) carvediloL (COREG) tablet 6.25 mg 6.25 mg, oral, 2 times daily with meals (bkfst, dinner), First dose on Alina 01/09/24 at 1800, Hold for SBP <120 or HR <60 1844 (Given - Provider: Dayday Booker RN) 0947 (Given - Provider: Dillan Jeter, SURJIT) enoxaparin (LOVENOX) syringe 40 mg 40 mg, subcutaneous, Every 12 hours scheduled, First dose on Alina 01/09/24 at 2100, Indications: Deep Vein Thrombosis Prevention 2006 (Given - Provider: Yuli Vides RN) 0948 (Given - Provider: Dillan Jeter, [...] Surgical 1217 (New Bag - Provider: Abigail Steen, FRANCISCO J) furosemide (LASIX) tablet 80 mg 80 mg, [...] Sat01/09/24 at 1500, Discontinue POD1 after breakfast 151 (New Bag - Provider: Dayday Booker RN) 0427 (New Bag - Provider: Yuli Vides, RN)1521 (Due: Stopped) Lactated Ringer's (LR) infusion () 30 mL/hr, intravenous, Continuous, Starting on Sat01/09/24 at 0915, For 4 hours, Use a [...] floor. 1348 (New Bag - Provider: Brigida Piper, SURJIT) PRN Medication Order 01/08/2024 01/09/2024 01/10/2024 Carrier [...] Opioid Tolerance 1330 (Given - Provider: Brigida Piper RN)1335 (Given - Provider: Brigida Piper RN)1340 (Given - Provider: Brigida Piper RN)1350 (Given - Provider: Brigida Piper, SURJIT)1415 (Given - Provider: Brigida Piper RN) HYDROmorphone [...] for nausea/vomiting 1513 (Given - Provider: Dayday Booker RN) oxyCODONE (ROXICODONE) tablet 5 mg 5 mg, [...] Date First Ordered Date acetaminophen (TYLENOL) tablet 500 mg 1 01/2024 Carrier Fluids for Secondary Infusion - 0.9% Sodium Chloride 01/09/2024 diphenhydrAMINE (BENADRYL) 5 0 mg/mL injection 12.5 mg 1 01/09/2024 ertapenem (INVanz) 1,000 mg in sodium chloride 0.9% 100 mL IVPB 01/09/2024 famotidine (PEPCID) injection 20 mg 01/08 fentaNYL (SUBLIMAZE) preserv ative free injection 25 mcg 1 01/09/2024 furosemide (LASIX) tablet 80 mg 1 hydrALAZINE (APRESOLINE) injection 5 mg 1 0 01/09/2024 HYDROcodone-acetaminophen (N ORCO) 5-325 mg per tablet 1 tablet 1 01/09/2024 HYDROmorphone (DILAUDID) injection 0.2 mg 1 01/09/2024 labetaloL (NORMODYNE,TRANDAT E) injection 5 mg 1 01/09/2024 lidocaine (PF) (XYLOCAINE) 1 0 mg/mL (1 %) preservative free injection 2-10 mg 1 01/09/2024 meperidine (DEMEROL) preserv ative free injection 12.5 mg 1 01/09/2024 mineral oil 1 01/09/2024 naloxone (NARCAN) 0.4 mg/mL injection 0.04-0.4 mg 1 01/09/2024 ondansetron (ZOFRAN) injection 4 mg 1 01/08 oxyCODONE (ROXICODONE) tablet 5 mg 1 2023 prochlorperazine (COMPAZINE) injection 5 mg 2 01/09/2024 sacubitriL-valsartan (ENTRES TO) 24-26 mg tablet 1 tablet 1 01/09/2024 scopolamine patch 72 hour 1 patch 1 024 sodium chloride 0.9% flush 0.5-20 mL 2 01/2024 sodium chloride 0.9% irrigation 1 Diet Count Last Ordered Date First Orde [...] 01/10/2024 documented in this encounter Care Teams Production Pattern Maker Relationship Specialty Start Date End Date Gianluca Price MD PCP - General 06/18/17 Ayden Corona DO [address] [facility] [address] [place] [address] Referring Physician Surgery 10/29/22 Roberto Medley MD [phone] [place] [address] Surgeon Colon and Rectal Surgery 11/23/22 documented as of this encounter
--- OUTSIDE RECORDS SUMMARY | 2024-10-05 02:49 | XMS_ITS | Encounter Summary ---
Author Organization [facility] Address [address] [place] [address] Phone Care Team Providers Care 1St Grade Teacher Name Role Phone Gianluca Price MD Primary Care Provider Ayden Corona DO Unavailable [phone] Roberto Medley MD Unavailable [phone] Reason for Visit * Reason Onset Date Comments Med Refill 05/26/2024 Encounter Details Date Type Department Care Team (Late st Contact Info) Description 05/26/2024 Telephone [facility] Scheduling [address] [place] [address] Ari Bradley MD [address] [facility] [address] [place] [address] Med Refill Social History Tobacco Use Types Packs/Day Years [...] on file 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 Gender Identity Not on file Sexual Orientation Not on file Occupation Industry Job Start Date Job End Date Retired Not on file Not on file Not on file documented as of this encounter Ordered Prescriptions Prescription Sig Dispense Quantity Refills Last Filled Start Date End Date dapagliflozin propanediol (FARXIGA) 10 mg tabletIndications: Heart Failure Take 1 tablet (10 mg total) by mouth daily 30 tablet 05/26/2024 07/24/2024 documented in this encounter Miscellaneous Notes * Telephone Encounter - Alcira Feliz CMA - 05/26/2024 10:05 AM CDT Sent a refill on farxiga 10 mg into [facility] for pt fu cem 10/28/2024 documented in this encounter Plan of Treatment Not on file documented as of this encounter Visit Diagnoses Not on filedocumented in this encounter Discontinued Medications Medication Sig Discontinue Reason Start Date End Da te dapagliflozin propanediol (FARXIGA) 10 mg tabletIndications:Heart Failure Take 1 tablet (10 mg total) by mouth daily Reorder 04/03/2024 05/26/2024 documented as of this encounter Care Teams 1St Grade Teacher Relationship Specialty Start Date End Date Gianluca Price MD PCP - General 06/18/17 Ayden Corona DO [address] [address] Referring Physician Surgery 10/29/22 Roberto Medley MD [phone] [place] [address] Surgeon Colon and Rectal Surgery 11/23/22 documented as of this encounter
--- OUTSIDE RECORDS SUMMARY | 2024-10-05 02:49 | XMS_ITS | Referral Summary ---
Author Organization [facility] Address [address] [place] [address] Care Team Providers Care Electric Detector Operator Name Role Phone Gianluca Price MD Primary Care Provider Chloe Ayden Pham DO Unavailable Roberto Medley MD Unavailable [phone] Encounters Date Type Department Care Team Description 09/23/2024 Telephone [facility] Cardiology [address] [facility] 8th [place] [address] [place] [address] Ari Bradley MD Request For Order(s) (Echo) from Last 3 Months Allergies Active Allergy Reactions Criticality Noted Date Comments Rosuvastatin Muscle pain Medium 06/30/2019 Medications allopurinol (ZYLOPRIM) 300 mg tabletIndicatio ns:prevention of acute gout attack Take 1 tablet (300 mg total) by mouth nightly 8 Active multivitamin capsuleIndicati ons:Vitamin Deficiency Prevention Take 1 capsule by mouth house parent before breakfast Active cholecalciferol (VITAMIN D-3) 65493 unit capsuleIndicati ons:supplement Take 1 capsule (10,000 Units total) by mouth house parent before breakfast Active acetaminophen (TYLENOL) 500 mg tablet Take 2 tablets (1,000 mg total) by mouth every 6 (six) hours as needed for pain Active apixaban (ELIQUIS) 5 mg tablet Take 1 tablet (5 mg total) by mouth 2 (two) times a day 60 tablet 3 4 Active clopidogreL (PLAVIX) 75 mg tabletIndicatio ns:stent placed 2019 Take 1 tablet (75 mg total) by mouth every morning 90 tablet 3 4 Active sacubitriL-vals kayleigh (ENTRESTO) 24-26 mg tabletIndicatio ns:chronic heart failure Take 1 tablet by mouth 2 (two) times a day 60 tablet 11 4 Active amoxicillin 500 mg capsule 4 Active potassium chloride ER 20 mEq CR tablet Take 1 tablet (20 mEq total) by mouth 2 (two) times a day 200 tablet 2 4 Active furosemide (LASIX) 80 mg tablet TAKE 1 TABLET BY MOUTH EVERY DAY 90 tablet 1 4 Active carvediloL (COREG) 6.25 mg tablet TAKE 1 TABLET BY MOUTH TWICE A DAY WITH MEALS 180 tablet 1 4 Active dapagliflozin propanediol (Farxiga) 10 mg tablet TAKE 1 TABLET BY MOUTH EVERY DAY 90 tablet 1 4 Active atorvastatin (LIPITOR) 80 mg tablet TAKE 1 TABLET BY MOUTH PHARMACEUTICAL ENGINEER BEFORE BREAKFAST 90 tablet 3 4 Active nitroglycerin (NITROSTAT) 0.4 mg SL tabletIndicatio ns:acute episode of anginal pain Place 1 tablet (0.4 mg total) under the tongue every 5 (five) minutes as needed for chest pain (prn) Up to 3 doses per episode. If chest pain persists after the 3rd dose, call 911. 25 tablet 4 4 Active nitroglycerin (NITROSTAT) 0.[address] 1 tablet (0.4 mg total) under the tongue every 5 (five) minutes as needed for chest pain (prn) 25 tablet 1 4 09/21/20 24 Discontinu ed(Reorder ) Active Problems Problem Noted Date Diagnosed Date Anal fistula 01/10/2024 Surgical wound, non healing 11/08/2023 Abnormal EKG 04/19/2022 Overview (04/19/2022): Added automatically from request for surgery [id number] Chest pain 04/19/2022 Overview (04/19/2022): Added automatically from request for surgery [id number] Acute diastolic congestive heart failure (CMS/HC C) 04/19/2022 Overview (04/19/2022): Added automatically from request for surgery [id number] Low back pain, non-specific 06/08/2020 Assessment & Plan (06/08/2020 11:09 AM CDT): Mr. Anderson has recurrent low back pain [...] him back in three months for re-evaluation. Coronary artery disease invo lving [place] coronary artery of [place] heart without angina pectoris 11/04/2015 Abnormal cardiovascular stress test 10/19/2015 Shortness of breath 10/19/2015 Hyperlipidemia 10/19/2015 Hypertension 10/19/2015 Resolved Problems Problem Noted Date Diagnosed Date Resolved Date Anal fistula 11/26/2022 01/10/2024 Overview (11/26/2022): Added automatically from request for surgery [id number] Social History Tobacco Use Types Packs/Day Years Used Date Smoking Tobacco: Never Passive Smoke Exposure: Never Smokeless Tobacco: Never Tobacco Cessation:Counseling Given: Not Answered Alcohol Use Standard Drinks/Week Comments Yes 0 [...] on file 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 Gender Identity Not on file Sexual Orientation Not on file Occupation Industry Job Start Date Job End Date Retired Not on file Not on file Not on file Last Filed Vital Signs Vital Sign Reading Time Taken Comments Blood Pressure 134/96 04/06/2024 3:19 PM CDT Pulse 95 04/06/2024 3:19 PM CDT Temperature 36.4 ??C (97.6 ??F) 04/06/2024 3:19 PM CD T Respiratory Rate 17 01/10/2024 3:30 AM CDT Oxygen Saturation 99% 04/06/2024 3:19 PM CDT Inhaled Oxygen Concentration - - Weight 154.1 kg (339 lb 12.8 oz) 04/06/2024 3:19 PM CDT Height 195.6 cm (6' 5 ) 04/06/2024 3:19 PM CDT Body Mass Index 40.29 04/06/2024 3:19 PM CDT Plan of Treatment Not on file Medical Devices Implanted Type Area Product Assurance Engineer Device Identifier Shelf Expiration Date Model / Serial / Lot [employer] Petros Synergy Xd 4mm 48mm System Coronary Stent Everolimus [id number] - [id number] - [id number] Implanted:Qty: 1 on 04/25/2022 by Kam Adamson MD at [facility] Stent Right: Coronary Artery [employer] Petros 07/04/2023 [id number] / [id number] / [id number] Insurance AETNA MEDICARE GOLD [facility] MDCR HMO REF [facility] Address: [address] [address] [place] [address] [facility] MEDICARE GOLD Advance Directives For more information, please contact: [phone] * Full Code (Latest Code Status on File) Date Activated Date Inactivated Comments 01/09/2024 2:20 PM 01/10/2024 3:26 PM * Full Code Date Activated Date Inactivated Comments 04/25/2022 5:48 PM 04/26/2022 1:03 AM * Full Code Date Activated Date Inactivated Comments 11/30/2019 1:02 PM 11/30/2019 8:23 PM Care Teams Electric Detector Operator Relationship Specialty Start Date End Date Gianluca Price MD PCP - General 06/18/17 Ayden Corona DO [address] [address] Referring Physician Surgery 10/29/22 Roberto Medley MD [phone] [place] [address] Surgeon Colon and Rectal Surgery 11/23/22
--- OUTSIDE RECORDS SUMMARY | 2024-10-05 02:49 | XMS_ITS | CONTINUITY OF CARE DOCUMENT ---
Author Name paula mitchell Address Unknown Organization [facility] Address [address] [place] [address] [address] [place] [address] Phone [phone] Care Team Providers Care Electric Meter Tester Shop Name Role Phone Lilo Gordon MD Unavailable [phone] JONO SHEA MD Unavailable [phone] JONO SHEA MD Unavailable [phone] INSURANCE PROVIDERS Payer name Policy type / Coverage type Pitman red republican ID [facility] Code Blue insurance Post.Bid.Ship [id number]
--- OUTSIDE RECORDS SUMMARY | 2024-10-05 02:49 | XMS_ITS | Clinical Summary ---
Author Organization [facility] Address [address] [place] [address] Care Team Providers Care Radiator Core Tester Name Role Phone Gianluca Price MD Primary Care Provider Ayden Corona DO Unavailable [phone] Roberto Medley MD Unavailable [phone] Allergies Active Allergy Reactions Criticality Noted Date Comments Rosuvastatin Muscle pain Medium 06/30/2019 Medications allopurinol (ZYLOPRIM) 300 mg tabletIndicatio ns:prevention of acute gout attack Take 1 tablet (300 mg total) by mouth nightly 8 Active multivitamin capsuleIndicati ons:Vitamin Deficiency Prevention Take 1 capsule by mouth press assistant and feeder before breakfast Active cholecalciferol (VITAMIN D-3) 29757 unit capsuleIndicati ons:supplement Take 1 capsule (10,000 Units total) by mouth press assistant and feeder before breakfast Active acetaminophen (TYLENOL) 500 mg tablet Take 2 tablets (1,000 mg total) by mouth every 6 (six) hours as needed for pain Active apixaban (ELIQUIS) 5 mg tablet Take 1 tablet (5 mg total) by mouth 2 (two) times a day 60 tablet 3 4 Active clopidogreL (PLAVIX) 75 mg tabletIndicatio ns:stent placed 2018 Take 1 tablet (75 mg [...] mg tablet TAKE 1 TABLET BY MOUTH STRIP CATCHER BEFORE BREAKFAST 90 tablet 3 4 Active [...] (04/19/2022): Added automatically from request for surgery [id number] Chest pain 04/19/2022 Overview (04/19/2022): Added automatically from request for surgery [id number] Acute diastolic congestive heart failure (CMS/HC C) 04/19/2022 Overview (04/19/2022): Added automatically from request for surgery [id number] Low back pain, non-specific 06/08/2020 Assessment & [...] for re-evaluation. Coronary artery disease invo lving [place] coronary artery of [place] heart without angina pectoris 11/04/2015 Abnormal cardiovascular stress test 10/19/2015 Shortness of breath 10/19/2015 Hyperlipidemia 10/19/2015 Hypertension 10/19/2015 Resolved Problems Problem Noted Date Diagnosed Date Resolved Date Anal fistula 11/26/2022 01/10/2024 Overview (11/26/2022): Added automatically from request for surgery [id number] Encounters Date Type Department Care Team Description 09/23/2024 Telephone [facility] [address] [facility] 8th [place] [address] [place] [address] Ari Bradley MD Request For Order(s) (Echo) from Last 3 Months Surgical History Surgery Date Site/Laterality Comments CARDIAC STENT PLACEMENT 10/07/2015 - 10/06/201612/2015 CRISTHIAN X 2-- Superior Ramus & Prox LAD; 11/2015 CRISTHIAN X 2-- LCx & Inferior Ramus CARDIOVERSION 10/07/2019 - 10/06/2020 WILMER guided POSTERIOR FUSION LUMBAR SPINE 10/07/2013 - 10/06/2014 L3-5 PSF ([facility]) TOTAL KNEE ARTHROPLASTY 01/06/2016 - 02/04/2016 Right TOTAL KNEE ARTHROPLASTY 05/07/2018 - 06/06/2018 Left TOTAL HIP ARTHROPLASTY 12/06/2019 - 01/05/2020 Left PARTIAL HIP ARTHROPLASTY 09/06/2021 - 10/06/2021 Right CARDIAC STENT PLACEMENT 04/06/2022 - 05/06/2022 CRISTHIAN X 1 to RCA ANAL EXAMINATION UNDER ANESTHESIA 12/10/2022 Exam under anesthesia and seton placement FISTULA REPAIR 02/21/2023 Ligation of intersphincteric fistula tract and drainage of perianal sinus tract COLONOSCOPY Multiple-- Last ~2019 ANAL EXAMINATION UNDER ANESTHESIA 04/26/2023 Exam under anesthesia and perineal drain placement EXAMINATION UNDER ANESTHESIA 11/07/2023 - 12/05/2023 EXAM UNDER ANESTHESIA - RECTUM with mushroom drain placement FISTULA REPAIR 01/09/2024 Transanal Endoscopic closure of rectal perineal fistula Medical History Medical History Date Comments Coronary artery disease s/p mult iple CRISTHIAN-- 04/2016 CRISTHIAN X 1 to RCA; 12/2015 CRISTHIAN X 2-- Superior Ramus & Prox LAD; 11/2015 CRISTHIAN X 2-- LCx & Inferior Ramus Hypertension Dxd ~2003 Hypercholesterolemia Treated wit h statin Gout PHILLIP (obstructive sleep apnea) CP AP machine nightly Osteoarthritis Atrial fibrillation (CMS/HCC) ([facility]) s/p cardioversion 2019-- Currently treated with Eliquis Mitral regurgitation Tricuspid regurgitation CHF (congestive heart failur e) (CMS/HCC) ([facility]) Arthritis PONV (postoperative nausea and vomiting) Morbid obesity ([facility]) Family History Medical History Relation Name Comments Heart disease Brother Hypertension Brother Heart attack Father Family history of heart attack - (Added by TW Conv) Hypertension Father Diabetes Mother Hypertension Mother Anesthesia problems Neg Hx Relation Name Status Comments Brother Father Mother Social History Tobacco Use Types Packs/Day Years [...] on file 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 Gender Identity Not on file Sexual Orientation Not on file Occupation Industry Job Start Date Job End Date Retired Not on file Not on file Not on file Obstetrics History Last Filed Vital Signs Vital Sign Reading [...] 04/06/2024 3:19 PM CDT Plan of Treatment Health Maintenance Due Date Last Done Comments Colon Cancer Screening-Colonoscopy 1955 Hepatitis C Screening 1955 Prostate Cancer Screening-PSA 1955 Hepatitis B Screening 12/27/1973 Zoster Vaccine (2 of 3) 06/10/2019 04/15/2019, 12/03 Well Visit 65+ 12/27/2020 Depression Screening 06/07/2021 06/07/2020, 06/07/20 20 Influenza Vaccine (#1) 2024 2, 07/07/2021, 06/27/2020, Additional history exists Fall Risk Assessment 01/09/2025 01/10/2024 DTaP/Tdap/Td Vaccine (2 - Td or Tdap) 08/22/2025 08/22/2015 Pneumococcal vaccine 65+ Completed 05/04/2022, 02/04 Medical Devices Implanted Type Area President And Chief Executive Officer Device Identifier Shelf Expiration Date Model / Serial / Lot [employer] Petros Synergy Xd 4mm 48mm System Coronary Stent Everolimus [id number] - [id number] - [id number] Implanted:Qty: 1 on 04/25/2022 by Kam Adamson MD at [facility] Stent Right: Coronary Artery [employer] Petros 07/04/2023 [id number] / [id number] / [id number] Insurance AETNA MEDICARE GOLD [facility] MDCR HMO REF AETNA MEDICARE GOLD Advance Directives For more information, please contact: [phone] * Full Code (Latest Code Status on File) Date Activated Date Inactivated Comments 01/09/2024 2:20 PM 01/10/2024 3:26 PM * Full Code Date Activated Date Inactivated Comments 04/25/2022 5:48 PM 04/26/2022 1:03 AM * Full Code Date Activated Date Inactivated Comments 11/30/2019 1:02 PM 11/30/2019 8:23 PM Care Teams Radiator Core Tester Relationship Specialty Start Date End Date Gianluca Price MD PCP - General 06/18/17 Ayden Corona DO [address] [facility] [address] [place] [address] Referring Physician Surgery 10/29/22 Roberto Medley MD [phone] [place] [address] Surgeon Colon and Rectal Surgery 11/23/22
--- OUTSIDE RECORDS SUMMARY | 2024-10-05 02:49 | XMS_ITS | Encounter Summary ---
Author Organization [facility] Address [address] [place] [address] Phone Care Team Providers Care Torpedoman'S Mate Name Role Phone Gianluca Price MD Primary Care Provider Ayden Corona DO Unavailable [phone] Roberto Medley MD Unavailable [phone] Encounter Details Date Type Department Care Team (Late st Contact Info) Description 04/08/2024 Orders Only [facility] Cardiology [address] 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 Gender Identity Not on file Sexual Orientation Not on file Occupation Industry Job Start Date Job End Date Retired Not on file Not on file Not on file documented as of this encounter Plan of Treatment Not on file documented as of this encounter Procedures Procedure Name Priority Date/Time Associated Diagnosis Comments CBC WITH AUTO DIFFERENTIAL Routine 04/08/2024 9:25 AM CDT LIPID PANEL Routine 04/08/2024 9:25 AM CDT COMPREHENSIVE METABOLIC PANEL Routine 04/08/2024 9:25 AM CDT documented in this encounter Results * CBC with auto differential (04/08/2024 9:25 AM CDT) WBC 5.1 3.8 - 10.8 Thousand/u L [facility] RBC, POC 4.60 4.20 - 5.80 Million/uL [facility] Hgb 14.8 13.2 - 17.1 g/dL [employer] Hct 44.9 38.5 - 50.0 % [facility] MCV 97.6 80.0 - 100.0 fL [facility] MCH 32.2 27.0 - 33.0 pg [facility] MCHC 33.0 32.0 - 36.0 g/dL [facility] Rdw 14.2 11.0 - 15.0 % [facility] Platelets 192 140 - 400 Thousand/u L [facility] MPV 12.2 7.5 - 12.5 fL [facility] Neutrophils, abs 2,412 1,500 - 7,800 cells/uL [facility] Lymphocytes, abs 1,969 850 - 3,900 cells/uL [facility] Monocyte abs 500 200 - 950 cells/uL [facility] Eosinophils, abs 158 15 - 500 cells/uL [facility] Basophils, abs 61 0 - 200 cells/uL [facility] Neutrophils 47.3 % [facility] Lymphocyte pct 38.6 % [facility] Monocytes 9.8 % [facility] Eosinophils 3.1 % [facility] Basophils 1.2 % [facility] 04/08/2024 9:25 AM CDT 04/08/2024 9:26 AM CDT Narrative [facility] - 04/08/2024 4:30 PM CDT FASTING:YES FASTING: YES us Ari Bradley MD LAB BLOOD ORDERABLES Final Res ult SELENE [facility] [address] [place] [address] * Comprehensive metabolic panel (04/08/2024 9:25 AM CDT) Pathologist [facility] Glucose 96 65 - 99 mg/dL [facility] Comment: ? Fasting reference interval BUN 18 7 - 25 mg/dL [facility] Creatinine 0.85 0.70 - 1.35 mg/dL [facility] eGFR 95 > OR = 60 mL/min/1.7 3m2 [facility] BUN/creat ratio SEE NOTE: (calc) [facility] Comment: ?? Not Reported: BUN and Creatinine are within ?? reference range. ? Sodium 139 135 - 146 mmol/L [facility] Potassium, pl 3.5 3.5 - 5.3 mmol/L [facility] Chloride 103 98 - 110 mmol/L [facility] CO2 29 20 - 32 mmol/L [facility] Calcium 9.2 8.6 - 10.3 mg/dL [facility] Protein, sr 6.8 6.1 - 8.1 g/dL [facility] Albumin 4.1 3.6 - 5.1 g/dL [facility] GLOBULIN 2.7 1.9 - 3.7 g/dL (calc) [facility] Alb/glob ratio 1.5 1.0 - 2.5 (calc) [facility] Bilirubin, total 0.8 0.2 - 1.2 mg/dL [facility] Alk phos 81 35 - 144 U/L [facility] AST 16 10 - 35 U/L [facility] ALT (SGPT) 20 9 - 46 U/L [facility] 04/08/2024 9:25 AM CDT 04/08/2024 9:26 AM CDT Narrative [facility] - 04/08/2024 4:30 PM CDT FASTING:YES FASTING: YES us Ari Bradley MD LAB BLOOD ORDERABLES Final Res ult [facility] [address] [place] [address] * (ABNORMAL) Lipid panel (04/08/2024 9:25 AM CDT) [facility] Cholesterol 123 <200 mg/dL [facility] HDL 37(L) > OR = 40 mg/dL [facility] Triglycerides 230(H) <150 mg/dL [facility] Comment: If a non-fasting specimen was collected, consider repeat triglyceride testing on a fasting specimen if clinically indicated. Naomi et al. J. of Clin. Lipidol. 2015;9:129-169. LDL 57 mg/dL (calc) [facility] Comment: Reference range: <100 Desirable range <100 mg/dL for primary prevention; ?? <70 mg/dL for patients with CHD or diabetic patients with > or = 2 CHD risk factors. LDL-C is now calculated using the Kenyon calculation, which is a validated novel method providing better accuracy than the Friedewald equation in the estimation of LDL-C. Carroll SS et al. LULA. 2013;310(19): 3502-5653 (http://education.Latio/faq/NGH553) Chol/HDL ratio 3.3 <5.0 (calc) [facility] Non-HDL, (LDL+VLDL) 86 <130 mg/dL (calc) [facility] Comment: For patients with diabetes plus 1 major ASCVD risk factor, treating to a non-HDL-C goal of <100 mg/dL (LDL-C of <70 mg/dL) is considered a therapeutic option. 04/08/2024 9:25 AM CDT 04/08/2024 9:26 AM CDT Narrative [facility] - 04/08/2024 4:30 PM CDT FASTING:YES FASTING: YES us Ari Bradley MD LAB BLOOD ORDERABLES Final Res ult [facility] [address] [place] [address] documented in this encounter Visit Diagnoses Not on filedocumented in this encounter Care Teams Torpedoman'S Mate Relationship Specialty Start Date End Date Gianluca Price MD PCP - General 06/18/17 Ayden Corona DO [address] [facility] [address] [place] [address] Referring Physician Surgery 10/29/22 Roberto Medley MD [phone] [place] [address] Surgeon Colon and Rectal Surgery 11/23/22 documented as of this encounter
--- OUTSIDE RECORDS SUMMARY | 2024-10-05 02:49 | XMS_ITS | Encounter Summary ---
Author Organization [facility] Address [address] [facility] [address] [place] [address] Phone Care Team Providers Care Beach Attendant Name Role Phone Gianluca Price MD Primary Care Provider Ayden Corona DO Unavailable [phone] Roberto Medley MD Unavailable [phone] Reason for Visit * Reason Comments Post-op Visit S/P Transanal Endosc opic closure of rectal perineal fistula * Consultation (Routine) - Authorized Specialty Diagnoses / Procedures Referred By Antonietta livingston Referred To Contact Surgery / Colon and Rectal Surgery Diagnoses Anal fistula Gianluca Price MD [address] [facility] [address] [place] [address] Phone: tel: fax: Roberto Medley MD [address] [facility] [phone] [place] [address] Phone: tel: fax: Referral ID Status Reason Start Date Expiration Date Visits Requested Visits Authorized [id number] Authorized Specialty Services Required 11/08/2023 12/07/2024 12 12 Encounter Details Date Type Department Care Team (Late st Contact Info) Description 02/07/2024 3:30 PM CDT Office Visit [facility] Surgery [address] 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 Gender Identity Not on file Sexual Orientation Not on file Occupation Industry Job Start Date Job End Date Retired Not on file Not on file Not on file documented as of this encounter Last Filed Vital Signs Vital Sign Reading Time Taken Comments Blood Pressure 134/89 02/07/2024 3:03 PM CDT Pulse 101 02/07/2024 3:03 PM CDT Temperature 36.7 ??C (98 ??F) 02/07/2024 3:03 PM CDT Respiratory Rate - - Oxygen Saturation 99% 02/07/2024 3:03 PM CDT Inhaled Oxygen Concentration - - Weight 152.9 kg (337 lb) 02/07/2024 3:03 PM CDT Height 195.6 cm (6' 5 ) 02/07/2024 3:03 PM CDT Body Mass Index 39.96 02/07/2024 3:03 PM CDT documented in this encounter Progress Notes * Roberto Medley MD - 02/07/2024 3:30 PM CDT Established Patient Follow-up Visit Interval History: The patient is a 68 y.o. male with a rectocutaneous fistula that we treated with a TEM procedure. He says he has doing a lot better. He says he has no pain. He says the drain fell out. He is still having some mild drainage. Review of Systems: All other systems negative except as per HPI and scanned media Physical exam: Constellation: No apparent distress. Head: Normocephalic Eyes: Anicteric Ears, mouth and nose: Normal Neurologic: Non-focal motor function Respiratory: Non-labored breathing Skin: No rashes Musculoskeletal: No gross bony deformities On exam externally, the fistula site still has some seropurulent drainage and some hypertrophic granulation tissue. Assessment and Plan: Mr. Du Anderson is a 68 y.o. male who is symptomatically much better after a TEM repair of a fistula. I am not 100% convinced that it is completely healed. I told him to watch the drainage. If it is still draining after another couple of months, I asked him to call us and we would see him again.I am not sure where to go from here. If he still does have the fistula and is doing well without a s eton, I would probably leave it as it is. There are no other good fixes for this fistula. Roberto Medley MD 02/07/2024 4:02 PM This note was created in part with the assistance of [employer] voice recognition software. Cutting And Creasing Press Operator variances and error may occur. Not every sentence has been reviewed in its entirety. For questions about the documentation above, please contact Dr. Medley. documented in this encounter Plan of Treatment Not on file documented as of this encounter Visit Diagnoses Diagnosis Anal fistula documented in this encounter Discontinued Medications Medication Sig Discontinue Reason Start Date End Da te apixaban (ELIQUIS) 5 mg tabletIndications:atrial fibrillation Take 1 tablet (5 mg total) by mouth 2 (two) times a day Therapy completed 02/07/2024 02/07/2024 sacubitriL-valsartan (ENTRESTO) 24-26 mg tabletIndications:chronic heart failure Take 1 tablet by mouth 2 (two) times a day Therapy completed 02/07/2024 02/07/2024 documented as of this encounter Orders Outpatient Referral Count Last Ordered Date Fir st Ordered Date AMB REFERRAL TO COLORECTAL SURGERY 1 2023 documented in this encounter Care Teams Beach Attendant Relationship Specialty Start Date End Date Gianluca Price MD PCP - General 06/18/17 Ayden Corona DO [address] [facility] [address] [place] [address] Referring Physician Surgery 10/29/22 Roberto Medley MD [address] [facility] [phone] [place] [address] Surgeon Colon and Rectal Surgery 11/23/22 documented as of this encounter
--- OUTSIDE RECORDS SUMMARY | 2024-10-05 02:49 | XMS_ITS | Encounter Summary ---
Author Organization [facility] Address [address] [place] [address] Phone Care Team Providers Care Cadmium Liquor Maker Name Role Phone Gianluca Price MD Primary Care Provider Ayden Corona DO Unavailable [phone] Roberto Medley MD Unavailable [phone] Encounter Details Date Type Department Care Team (Latest Contact Info) Description 04/06/2024 3:30 PM CDT Office Visit [facility] Cardiology [address] [place] [address] Ari Bradley MD [address] [facility] [address] [place] [address] Coronary artery disease involving match-e-be-nash-she-wish band coronary artery of match-e-be-nash-she-wish band heart without angina pectoris (Primary Dx); Primary hypertension; Mixed hyperlipidemia Social History Tobacco Use Types Packs/Day Years [...] on file 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 Gender Identity Not on file Sexual Orientation [...] 04/06/2024 3:19 PM CD T Respiratory Rate - - Oxygen Saturation 99% 04/06/2024 3:19 PM CDT Inhaled Oxygen Concentration - - Weight 154.1 kg (339 lb 12.8 oz) 04/06/2024 3:19 PM CDT Height 195.6 cm (6' 5 ) 04/06/2024 3:19 PM CDT Body Mass Index 40.29 04/06/2024 3:19 PM CDT documented in this encounter Ordered Prescriptions Prescription Sig Dispense Quantity Refills Last Filled Start Date End Date potassium chloride ER 20 mEq CR tablet Take 1 tablet (20 mEq total) by mouth 2 (two) times a day 200 tablet 2 04/06/2024 documented in this encounter Progress Notes * Ari Bradley MD - 04/06/2024 3:30 PM CDT 04/06/2024 Cardiology Consult Patient's Name: Du Anderson : 1955 [place]: 04/06/2024 PRINCIPAL AND SECONDARY DIAGNOSES: 1. Complex coronary disease. PCI of trifurcating left main circumflex, inferior ramus, superior ramus, and ostial LAD in a staged manner with multiple CRISTHIAN stents in 2016. Cath /PCI 04/25/2022 ; Successful drug-eluting Synergy stent to the proximal mid right coronary artery with 0% stenosis ANTHONY 3 flow. 2. Ischemic Cardiomyopathy . Echo 04/06/2022 LVEF 44% 3. Moderate to severe MR, central MR (ERO: 0.32, RVol: 44) without systolic flow reversal in the pulmonary veins. Improved to mild MR by Echo on 04/06/2022 4. Atrial fibrillation. 5. Hypertension. 6. Morbid obesity which is central abdominal obesity. 7. Obstructive sleep apnea. 8. Dyslipidemia. Very atherogenic LDL particle size of 215 as well as type B pattern. 9. Elevated lipoprotein A of 215 which is three times the reference value of 75. INTERVAL HISTORY: Du Anderson is a 68 y.o. male who returns for follow-up. He is doing well. He continues to do well. His shortness of breath improved. No chest pain noted.. In fact chest pain was never his main symptoms. He denies any leg swelling.No history of COV-19 infection noted. He had a stenting of his ostial LAD, ostial ramus, and ostial circumflex in the past. He had a PCI of RCA on 04/25/2022. He had LV dysfunction and moderate to severe central mitral regurgitation based on echocardiogram done in October 2019. His echo on 04/06/2022 showed LVEF 44% with mild MR only. REVIEW OF SYMPTOMS: All systems were reviewed and were negative except those stated above. ALLERGIES: Allergies Allergen Reactions Rosuvastatin Muscle pain MEDICATIONS: Current Outpatient Medications on File Prior to Visit Medication Sig Dispense Refill acetaminophen (TYLENOL) 500 mg tablet Take 2 tablets (1,000 mg total) by mouth every 6 (six) hours as needed for pain allopurinol (ZYLOPRIM) 300 mg tablet Take 1 tablet (300 mg total) by mouth nightly apixaban (ELIQUIS) 5 mg tablet Take 1 tablet (5 mg total) by mouth 2 (two) times a day 60 tablet 3 apixaban (ELIQUIS) 5 mg tablet Take 1 tablet (5 mg total) by mouth 2 (two) times a day 56 tablet 0 atorvastatin (LIPITOR) 80 mg tablet Take 1 tablet (80 mg total) by mouth chemical dependency nurse before breakfast 90 tablet 3 carvediloL (COREG) 6.25 mg tablet Take 1 tablet (6.25 mg total) by mouth 2 (two) times a day with meals (Patient taking differently: Take 1 tablet (6.25 mg total) by mouth 2 (two) times a day with meals) 200 tablet 2 cholecalciferol (VITAMIN D-3) 90405 unit capsule Take 1 capsule (10,000 Units total) by mouth earlymorning before breakfast clopidogreL (PLAVIX) 75 mg tablet Take 1 tablet (75 mg total) by mouth every morning 90 tablet 3 dapagliflozin propanediol (FARXIGA) 10 mg tablet Take 1 tablet (10 mg total) by mouth daily 21 tablet 0 furosemide (LASIX) 80 mg tablet Take 1 tablet (80 mg total) by mouth daily (Patient taking differently: Take 1 tablet (80 mg total) by mouth every morning) 100 tablet 2 multivitamin capsule Take 1 capsule by mouth chemical dependency nurse before breakfast nitroglycerin (NITROSTAT) 0.[address] 1 tablet (0.4 mg total) under the tongue every 5 (five) minutes as needed for chest pain (prn) 25 tablet 2 oxyCODONE (ROXICODONE) 5 mg immediate release tablet Take 1 tablet (5 mg total) by mouth every 4 (four) hours as needed for pain (Patient not taking: Reported on 02/07/2024) 10 tablet 0 polyethylene glycol (MIRALAX) 17 gram/dose bulk powder Take 238 g by mouth once for 1 dose The day before surgery mix 238 grams Miralax with 64 ounces clear liquid. 11 AM begin drinking Miralax 8 ounces every 15 minutes until finished for bowel evacuation. (Patient not taking: Reported on 02/07/2024)238 g 0 potassium chloride ER 20 mEq CR tablet TAKE 1 TABLET BY MOUTH TWICE DAILY 200 tablet 2 sacubitriL-valsartan (ENTRESTO) 24-26 mg tablet Take 1 tablet by mouth 2 (two) times a day (Patienttaking differently: Take 1 tablet by mouth 2 (two) times a day) 180 tablet 3 sacubitriL-valsartan (ENTRESTO) 24-26 mg tablet Take 1 tablet by mouth 2 (two) times a day 60 tablet 11 No current facility-administered medications on file prior to visit. PHYSICAL EXAM: Blood pressure 134/96, pulse 95, temperature 36.4 ??C (97.6 ??F), height 195.6 cm (6' 5 ), weight (!) 154.1 kg (339 lb 12.8 oz), SpO2 99%. Constitutional: Appearance: He is well-developed. HENT: Head: Normocephalic and atraumatic. Eyes: Conjunctiva/sclera: Conjunctivae normal. Pupils: Pupils are equal, round, and reactive to light. Comments: No Xanthelasma Neck: Thyroid: No thyromegaly. Vascular: No JVD. Cardiovascular: Rate and Rhythm: Normal rate and regular rhythm. Pulses: Intact distal pulses. Heart sounds: Normal heart sounds. No murmur heard. No friction rub. No gallop. Pulmonary: Effort: Pulmonary effort is normal. No respiratory distress. Breath sounds: Normal breath sounds. No wheezing or rales. Chest: Chest wall: No tenderness. Abdominal: General: Bowel sounds are normal. Palpations: Abdomen is soft. There is no mass. Tenderness: There is no abdominal tenderness. Musculoskeletal: General: No tenderness. Normal range of motion. Cervical back: Neck supple. Skin: General: Skin is warm and dry. Findings: No erythema or rash. Neurological: Mental Status: He is alert and oriented to person, place, and time. Deep Tendon Reflexes: Reflexes are normal and symmetric. OBJECTIVE DATA: I reviewed the following labs and discussed with the patient. Lab Results Component Value Date CHOL 130 06/21/2022 CHOL 128 07/29/2020 CHOL 111 06/02/2019 Lab Results Component Value Date HDL 42 06/21/2022 HDL 41 07/29/2020 HDL 44 06/02/2019 Lab Results Component Value Date LDLCALC 59 06/21/2022 LDLCALC 63 07/29/2020 LDL 44 06/02/2019 LDL 57 09/23/2018 LDL 75 06/04/2018 Lab Results Component Value Date TRIG 145 06/21/2022 TRIG 121 07/29/2020 TRIG 146 06/02/2019 Lab Results Component Value Date GLUCOSE 100 01/09/2024 CALCIUM 9.9 06/21/2022 SODIUM 139 06/21/2022 POTASSIUM 4.0 06/21/2022 CO2 28 06/21/2022 CHLORIDE 104 06/21/2022 BUNSER 14 06/21/2022 CREATININE 0.88 06/21/2022 Lab Results Component Value Date TROPONINI <0.01 11/08/2013 No results found for: HGBA1C Lab Results Component Value Date WBC 7.0 04/25/2022 HGB 11.5 (L) 04/25/2022 HCT 37.5 (L) 04/25/2022 MCV 79.4 (L) 04/25/2022 LABPLAT 227 04/25/2022 Lab Results Component Value Date ALT 22 06/21/2022 AST 26 06/21/2022 ALKPHOS 102 06/21/2022 BILITOT 0.7 06/21/2022 Cardiac PET 11/19/2019 IMPRESSION: 1. Evidence of moderate size and - severe ischemia in the basal- and mid-segment of the anterior wall extending into the anterolateral wall. 2. Normal rest perfusion. 3. Left ventricular size and systolic function were not evaluated due to presence of atrial fibrillation. 4. Flow quantification with more pronounced reductions in hyperemic MBF and MFR in the described ischemic areas, while stress related flows and MFR also reduced in the remote regions. Nuclear Stress Test 07/12/2021 Images Interpretation The Spect gated images revealed medium evidence of irreversible perfusion defect at the inferior wall that is nontransmural, with paul-infarct ischemia. The Spect gated images demonstrate abnormal wall motion. Gated Spect imaging demonstrates hypokinesis that is more prominent in the inferior wall. Calculated ejection fraction is 54 %. The TID ratio is 1.00. The LHR is 0.40. [employer] Myocardial perfusion imaging is abnormal. There are moderate areas of ischemia in the inferior locations of moderate severity. (See interpretation above) Overall left ventricular systolic function was normal with a calculated LVEF of 54 % with regional wall abnormalities. Gated Spect imaging demonstrates hypokinesis that is more prominent in the inferior wall. There was not LV dilatation present. Clinically normal ECG. Electrocardiographically normal ECG. Cardiac Cath 04/25/2022 Selective Coronary Arteriography: Left Coronary System: 1. The left main coronary artery is large caliber vessel and patent with luminal irregularities. 2. The circumflex coronary artery is non dominant vessel, . Proximal LCX is 30% atherosclerotic plaque noted. , First very proximal marginal branch stent is patent with luminal irregularities. Obtusemarginal branch is patent with luminal irregularities. 3. The right coronary artery is large dominant vessel, proximally 30% stenosed,mid RCA is 70% stenosed, distal RCA have luminal irregularities, PDA have luminal irregularities. Distal PLV branchs areoccluded fills by left to right collaterals. 4. Th Left Anterior descending artery ; Stent in proximal LAD is patent with luminal irregularities. Stent in ramus is patent with luminal irregularities. Mod LAD and distal LAD is patent with luminal irregularities. Diagonal and septal branches are patent with luminal irregularities. DIAGNOSTIC IMPRESSIONS: 1. 3 Vessel CAD with patent stent in LAD, Ramus ,first marginal branch and 70% mid RCA lesion. 2. No gradient across aortic valve. 3. The left ventricular end-diastolic pressure is 19-21 mmHg. THERAPEUTIC RECOMMENDATIONS: Finding discussed with Dr Adamson ,He will plan to intrervene the RCA in view of abnormal stress test. PCI 04/25/2022 Diagnostic Impression Successful drug-eluting Synergy stent to the proximal mid right coronary artery with 0% stenosis ANTHONY 3 flow Echo 01/03/24 SUMMARY: LA is mildly dilated. Normal RV cavity size. LV cavity size is normal. Normal LV wall thickness/mass Mild LV global hypokinesis with LVEF 43%. . Normal Inferior vena cava. Normal aorta. No AR seen, Mild MR, no , no MS, mild TV regurgitation, normal PV.Strain quality is inadequate for accurate reporting. Diastolic function: indeterminate I reviewed the following labs and discussed with the patient. Lab Results Component Value Date CHOL 130 06/21/2022 CHOL 128 07/29/2020 CHOL 111 06/02/2019 Lab Results Component Value Date HDL 42 06/21/2022 HDL 41 07/29/2020 HDL 44 06/02/2019 Lab Results Component Value Date LDLCALC 59 06/21/2022 LDLCALC 63 07/29/2020 LDL 44 06/02/2019 LDL 57 09/23/2018 LDL 75 06/04/2018 Lab Results Component Value Date TRIG 145 06/21/2022 TRIG 121 07/29/2020 TRIG 146 06/02/2019 No results found for: POCCHDLR No results found for: POCNONHDL No results found for: POCCHLPL Lab Results Component Value Date GLUCOSE 100 01/09/2024 CALCIUM 9.9 06/21/2022 SODIUM 139 06/21/2022 POTASSIUM 4.0 06/21/2022 CO2 28 06/21/2022 CHLORIDE 104 06/21/2022 BUNSER 14 06/21/2022 CREATININE 0.88 06/21/2022 Lab Results Component Value Date TROPONINI <0.01 11/08/2013 No results found for: HGBA1C Lab Results Component Value Date WBC 7.0 04/25/2022 HGB 11.5 (L) 04/25/2022 HCT 37.5 (L) 04/25/2022 MCV 79.4 (L) 04/25/2022 LABPLAT 227 04/25/2022 Lab Results Component Value Date ALT 22 06/21/2022 AST 26 06/21/2022 ALKPHOS 102 06/21/2022 BILITOT 0.7 06/21/2022 ASSESSMENT AND PLAN: 1. Coronary disease; His prior stents were patent. Recent PCI of RCA was done successfully on 04/25/2022. He is on Plavix. He is also on Eliquis.He have NTG prn available. 2. Atrial Fibrillation; He is on Eliquis. No history of TIA/CVA noted. CHF and moderate to severe MR ; Recent Echo on 04/06/2022 as mentioned above did not showed significant MR. ,His LVEF is 44%. He is on Plavix for his stents and Eliquis for his atrial fibrillation. He is off of aspirin. No sign of fluid overload. 2. Hypertension, well controlled., low salt diet. 3. Dyslipidemia. He is on high-dose Lipitor and Niacin 1,000 mg BID. Tolerating well. He is on atorvastatin to 80 mg a day. Will get a lipid profile., CBC, BMP. 4. Obstructive sleep apnea. 5. Osteoarthritis. He has done well after B/l knee replacements. 6. Lifestyle. I advised daily exercise. 7. Hypokalemia. We will continue KCL to 40 mEq daily 8. Chronic atrial fibrillation: He is on Eliquis 5 mg BID. In the past he has been attempted to getcardioversion in 11/05/2019 , he had WILMER cardioversion lasted for few minutes only. Last ECG showed Afib with HR 92 bpm. Low voltage to body habitus. She is off aspirin. 9. Mild LV systolic dysfunction esequiel to ischemic cardiomyopathy or previous severe MR. : His recent echo showed only mild MR. LVEF 44%. He is On entresto 24/26 mg BID. Will get BNP, BMP in 2 weeks. Echo with doppler in 2-3 months. Will add Jardiance 10 mg a day. He will continue lasix 80 mg a day. Low salt diet. He as it caused gynecomastia. Will get an echocardiogram with Doppler for evaluation LVEF could not tolerate spironolactone in the past, we are trying again to add spironolactone 12.5 mga day BNP in 1-2 weeks' time Heart Failure: Reduced Ejection Fraction (HFrEF) and Improved Ejection Fraction (HFimpEF) Guideline-directed medications: Current: Notes/plan: Evidence-based beta-modesta (1) Coreg 6.25 mg twice a day ARNi, Acei or ARB (1) sacubitriL-valsartan (ENTRESTO) 24/26 mg twice a day Mineralocorticoid Receptor Antagonist (1) Spironolactone 12.5 mg SGLT2i (1) Jardiance 10 mg a day Hydralazine & nitrate (1 in -Americans) Diuretics as needed (1) Advance care planning & code status Code Status: RTc 6 m Thank you for letting me participating in this patient care. Please feel free to call me or my office for any cardiac questions. Ari Bradley M.D., F.A.C.C., M.B.A. rotogravure press operator Cardiovascular Division [facility] [employer] Senior Vice President [place] [address] This note contains information and findings from prior encounters which remain the same for today'sencounter. I have reviewed and made updates where applicable. This note was written using a voice recognition system hardware device. Please note there may be variance in spelling, grammar, and syntax because of the voice recognition system hardware. Therefore,not every sentence has been reviewed in its entirety. If there are any concerns about verbiage above please contact me at [phone]. documented in this encounter Plan of Treatment Not on file documented as of this encounter Visit Diagnoses Diagnosis Coronary artery disease involving match-e-be-nash-she-wish band coronary artery of match-e-be-nash-she-wish band heart without angina pectoris- Primary Primary hypertension Unspecified essential hypertension Mixed hyperlipidemia documented in this encounter Discontinued Medications Medication Sig Discontinue Reason Start Date End Da te apixaban (ELIQUIS) 5 mg tablet Take 1 tablet (5 mg total) by mouth 2 (two) times a day Duplicate order 04/03/2024 04/06/2024 oxyCODONE (ROXICODONE) 5 mg immediate release tabletIndications:Pain Take 1 tablet (5 mg total) by mouth every 4 (four) hours as needed for pain Therapy completed 01/10/2024 04/06/2024 polyethylene glycol (MIRALAX) 17 gram/dose bulk powder Take 238 g by mouth once for 1 dose The day before surgery mix 238 grams Miralax with 64 ounces clear liquid. 11 AM begin drinking Miralax 8 ounces every 15 minutes until finished for bowel evacuation. Therapy completed 11/26/2023 04/06/2024 sacubitriL-valsartan (ENTRESTO) 24-26 mg tablet Take 1 tablet by mouth 2 (two) times a day Duplicate order 05/16/2023 04/06/2024 potassium chloride ER 20 mEq CR tablet TAKE 1 TABLET BY MOUTH TWICE DAILY Reorder 10/01/2023 04/06/2024 documented as of this encounter Historical Medications * This list may reflect changes made after this encounter. Medication Sig Dispense Quantity Refills Last Filled Start D ate End Date amoxicillin 500 mg capsule 04/06/2024 added in this encounter Care Teams Cadmium Liquor Maker Relationship Specialty Start Date End Date Gianluca Price MD PCP - General 06/18/17 Ayden Corona DO [address] [facility] [address] [address] Referring Physician Surgery 10/29/22 Roberto Medley MD [address] [facility] [phone] [place] [address] Surgeon Colon and Rectal Surgery 11/23/22 documented as of this encounter
--- OUTSIDE RECORDS SUMMARY | 2024-10-05 02:49 | XMS_ITS | Encounter Summary ---
Author Organization [facility] Address [address] [place] [address] Phone Care Team Providers Care Pizzamaker Name Role Phone Gianluca Price MD Primary Care Provider Ayden Corona DO Unavailable [phone] Roberto Medley MD Unavailable Reason for Visit * Reason Onset Date Comments Surgery Confirmation 01/08/2024 Encounter Details Date Type Department Care Team (Late st Contact Info) Description 01/08/2024 Telephone [facility] Department of Surgery, Section of Colon and Rectal Surgery [address] 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 Prep: Miralax/Duloclax. Antibiotics: Flagyl and Neomycin Immunonutrition: taking Ensure Surgery and will have completed 5 days of immunonutrition. Shower: patient aware to use the night before and morning of procedure Carbohydrate: 2 bottles of Ensure Pre-Surgery the evening before, and 1 bottle to be completed by 6:45 am. Patient reminded to bring Patient Journey Guides: Yes Cysto/Stent placement: No Confirmed arrival time of 8:45 am at [facility], report to Main Entrance. documented in this encounter Plan of Treatment Not on file documented as of this encounter Visit Diagnoses Not on filedocumented in this encounter Care Teams Pizzamaker Relationship Specialty Start Date End Date Gianluca Price MD PCP - General 06/18/17 Ayden Corona DO [address] [address] Referring Physician Surgery 10/29/22 Roberto Medley MD [phone] [place] [address] Surgeon Colon and Rectal Surgery 11/23/22 documented as of this encounter
--- OUTSIDE RECORDS SUMMARY | 2024-10-05 02:50 | XMS_ITS | Encounter Summary ---
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 Name Role Phone Gianluca Price MD Primary Care Provider ChloeAyden DO Unavailable [phone] Roberto Medley MD Unavailable [phone] Reason for Visit * Auth/Cert (Routine) Specialty Diagnoses / Procedures Referred By Contac t Referred To Contact Diagnoses Anal fistula Anal fistula [K60.3] Procedures TX ANRCT XM SURG REQ ANES GENERAL SPI/EDRL DX TX I&D PERIANAL ABSCESS SUPERFICIAL EXAM UNDER ANESTHESIA - RECTUM INCISION AND DRAINAGE ABSCESS - GREGORIO-ANAL Referral ID Status Reason Start Date Expiration Date Visits Re quested Visits Authorized [id number] 1 1 Encounter Details Date Type Department Care Team (Late st Contact Info) Description 04/26/2023 8:00 AM CDT - 04/26/2023 8:30 AM CDT Surgery [facility] at [facility] [address] [place] [address] Roberto Medley MD [phone] [place] [address] EXAM UNDER ANESTHESIA - RECTUM with drain plalcement Surgery Details Date/Time Status Location OR Service Patient Class Case Cl ass Case Type Trauma Case? 04/26/2023 8:00 AM Posted [facility] Operating Room [place] OR 2 Colorectal Outpatient Elective Panel 1 Procedure LRB Anes Op Region Wound Class Comments EXAM UNDER ANESTHESIA - RECTUM with drain plalcement N/A Monitor Anesthesia Care Anus N/A Surgeon Surgeon Role Service Panel Roberto Medley MD Primary Colorectal 1 Phoenix Nathan MD Fellow Colorectal 1 documented in this encounter Social History Tobacco Use Types Packs/Day Years Used Date Smoking Tobacco: Never Passive Smoke Exposure: Never Smokeless Tobacco: Never Alcohol Use Standard Drinks/Week Comments Yes 0 (1 standard drink = 0.6 oz pur e alcohol) Occasionally AUDIT-C Answer Date Recorded Q1: How often do you have a drink containing alc ohol? 2-4 times a month 04/26/2023 Q2: How many drinks containi ng alcohol do you have on a typical day when you are drinking? 3 or 4 04/26/2023 Q3: How often do you have si x or more drinks on one occasion? 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 Gender Identity Not on file Sexual Orientation Not on file Occupation Industry Job Start Date Job End Date Retired Not on file Not on file Not on file documented as of this encounter Last Filed Vital Signs Vital Sign Reading Time Taken Comments Blood Pressure 99/70 04/26/2023 8:30 AM CDT Pulse 78 04/26/2023 8:30 AM CDT Temperature 36.5 ??C (97.7 ??F) 04/26/2023 8:15 AM CD T Respiratory Rate 9 04/26/2023 8:30 AM CDT Oxygen Saturation 92% 04/26/2023 8:30 AM CDT Inhaled Oxygen Concentration - - Weight 154.2 kg (340 lb) 04/10/2023 1:25 PM CDT Height 195.6 cm (6' 5 ) 04/10/2023 1:25 PM CDT Body Mass Index 40.32 04/10/2023 1:25 PM CDT documented in this encounter Discharge Instructions * Discharge Instructions* Phoenix Nathan MD - 04/26/2023 7:47 AM CDT COLON AND RECTAL SURGERY Post-Operative Instructions for Outpatient Procedure Pain Some pain is to be expected after a procedure. We recommend alternating between Tylenol 1000mg and Ibuprofen 600mg every 3 hours (maximum dose of Tylenol 4000mg and Ibuprofen 2400mg) and using the prescribed narcotics for any breakthrough pain. Heat or ice may also be used to provide relief, but becareful not to burn yourself as this area is numb. Make sure to take pain medication with food. Sitz baths/warm tub soaks can be used 3 times daily or as needed. If prescribed Percocet, Petal, Tylenol #3, or any agent containing acetaminophen (Tylenol), do not use additional Tylenol. If using another NSAID, do not use additional Ibuprofen. If previously instructed by another physician NOT to use Tylenol or Ibuprofen, please refrain from using this Medication. Bowel Function It is important to keep your bowel movements soft and easy to pass. Eat a high fiber diet, take a stool softener daily or 1 tablespoon of Metamucil daily to help with this. Drink at least 64 oz of non-caffeinated fluids daily. Narcotics cause constipation quickly, which can lead to increased pain and healing time, take Miralax as needed if you have not had a bowel movement in 48 hours. Bleeding Some bleeding is common after a procedure. Please call our office if you notice any blood loss greater than ?? cup of blood, blood clots larger than a quarter or if blood is dripping out and not stopping. If you feel faint, lightheaded, and dizzy or like you will pass out, call 9-1-1 immediately. Nausea/ Vomiting It is not uncommon to have nausea or vomiting after anesthesia. Taking pain medication on an empty stomach can cause nausea or vomiting. If you develop nausea or vomiting 24 hours after your procedure or cannot keep fluids down, call our office or go to your local Emergency Room. Fever/ Chills If you develop any fever over 101.5F or chills, please call our office. It is common to have a low grade fever after a procedure (under 101.5F), use of the OTC medications can help with this. Activity No driving while taking any narcotics. No lifting anything over 10 lbs or straining for 2 weeks following a removal of a hemorrhoid. Walk as much as possible to help prevent constipation. Wound Care If you have an incision, keep the incision clean and dry. Please shower daily, letting soap and water run over the incision and pat dry. Do not scrub. If there is any drainage, you can cover the area with gauze to absorb this. Change this gauze daily, or as needed if it becomes saturated throughout the day. Do not apply any antibioticointments to this area. If your doctor left in packing, remove this 24 hours after your procedure. Wash hands and replace packing if directed. If you have a seton, rotate the seton once a week to prevent skin from covering opening. Other If unable to urinate for 8 hours, call our office or go to the ER. If having skin breakdown or irritation, using a skin barrier (Brandi or Calmoseptine) can provide relief and healing. Sutures may be visible or felt, these will dissolve over time. If the suture is causing irritation,you can tuck gauze in between it and your skin or call the oce and we can schedule an appointment to have it cut back. Please restart your Plavix and Eliquis today. Call Your Surgeon???s Office for All Questions and Concerns Office: [phone] (Saturday - Saturday, 8am to 4pm) Exchange: [phone] (after hours, holidays and weekends) * Attachments The following attachments cannot be sent through Care Everywhere. * [facility] PATHWAY TO EXCELLENT CARE AFTER SURGERY documented in this encounter Medications at Time of Discharge allopurinol (ZYLOPRIM) 300 mg tabletIndication s:prevention of acute gout attack Take 1 tablet (300 mg total) by mouth nightly 06/01/2018 cholecalciferol (VITAMIN D-3) 13081 unit capsuleIndicatio ns:supplement Take 1 capsule (10,000 Units total) by mouth director home before breakfast multivitamin capsuleIndicatio ns:Vitamin Deficiency Prevention Take 1 capsule by mouth director home before breakfast amoxicillin 500 mg capsule Take by mouth as needed (dental procedure) 01/25/2023 4 apixaban (ELIQUIS) 5 mg tablet Take 1 tablet (5 mg total) by mouth 2 (two) times a day 60 tablet 3 07/06/2020 4 atorvastatin (LIPITOR) 80 mg tablet Take 1 tablet (80 mg total) by mouth daily 30 tablet 11 04/19/2022 3 carvediloL (COREG) 6.25 mg tablet TAKE 1 TABLET BY MOUTH TWICE DAILY WITH MEALS 200 tablet 2 12/24/2022 4 clopidogreL (PLAVIX) 75 mg tablet TAKE 1 TABLET BY MOUTH DAILY 90 tablet 3 07/29/2022 3 dapagliflozin (FARXIGA) 10 mg tablet Take 1 tablet (10 mg total) by mouth daily 14 tablet 06/21/2022 4 furosemide (LASIX) 80 mg tablet TAKE 1 TABLET BY MOUTH DAILY 100 tablet 2 12/24/2022 4 nitroglycerin (NITROSTAT) 0.[address] 1 tablet (0.4 mg total) under the tongue every 5 (five) minutes as needed for chest pain (prn) 25 tablet 2 06/21/2022 4 oxyCODONE (ROXICODONE) 5 mg immediate release tabletIndication s:Pain Take 1 tablet (5 mg total) by mouth every 6 (six) hours as needed for pain 5 tablet 04/26/2023 4 polyethylene glycol (MIRALAX) 17 gram/dose powder Take 17 g by mouth daily for 14 days 238 g 04/26/2023 4 potassium chloride ER 20 mEq CR tablet Take 1 tablet (20 mEq total) by mouth 2 (two) times a day 180 tablet 3 09/06/2022 3 sacubitriL-valsa rtan (ENTRESTO) 24-26 mg tablet Take 1 tablet by mouth 2 (two) times a day 180 tablet 3 03/15/2022 3 documented as of this encounter Ordered Prescriptions Prescription Sig Dispense Quantity Refills Last Filled Start Date End Date oxyCODONE (ROXICODONE) 5 mg immediate release tabletIndications: Pain Take 1 tablet (5 mg total) by mouth every 6 (six) hours as needed for pain 5 tablet 04/26/2023 11/22/2023 polyethylene glycol (MIRALAX) 17 gram/dose powder Take 17 g by mouth daily for 14 days 238 g 04/26/2023 11/11/2023 documented in this encounter Discharge Disposition Disposition Code Departure Means Destination Comment s Discharge to home or self care documented in this encounter H&P Notes * Phoenix Nathan MD - 04/26/2023 7:45 AM CDT I have reviewed the H&P, examined the patient, and endorse the findings as written. Plan of Care : Based on the above findings, I consider Du Anderson to be an acceptable risk for : Procedure(s): EXAM UNDER ANESTHESIA - RECTUM INCISION AND DRAINAGE ABSCESS - GREGORIO-ANAL Cosigned by Roberto Medley MD at 04/26/2023 7:47 AM CDT Source Note - Rosetta Lombardi MD - 04/12/2023 11:34 AM CDT Images from the original note were not included. Center for Preoperative Assessment and Planning Preoperative Evaluation Record Evaluation type/location: TPAP from [facility] Planned procedure site: [facility] OR Date: 04/12/23 NOTE: This note represents a preoperative evaluation initiated via telephone interview. NO PHYSICALEXAM was performed at the time of initial assessment. A physical exam may be added to this note anddocumented below. Anesthesia Evaluation Du Anderson is a 67 y.o. male Procedure(s): EXAM UNDER ANESTHESIA - RECTUM INCISION AND DRAINAGE ABSCESS - GREGORIO-ANAL Pre-Op Diagnosis Codes: * Anal fistula [K60.3] HISTORY HPI Du Anderson is a 67 y.o. male with CAD s/p CRISTHIAN (2015 & 04/2022), CHF (EF 45%), Afib, HTN, HLD, PHILLIP, Morbid Obesity (BMI= 40), Chronic pain presenting for evaluation having EUA Rectum, I&D Abscess for Anal fistula. Past Medical History Information obtained from: patient and chart. Neurological Pertinent negatives: seizures; neuromuscular disease; CVA/stroke; TIA; CEA; ICA stenosis; dementia/mild cognitive impairment and carotid artery stent Cardiovascular + Hypertension Hypertension year diagnosed: 2003. Typical systolic BP - 125 Typical diastolic BP - 75 + Hyperlipidemia (Treated with statin) + CAD (s/p multiple CRISTHIAN-- 04/2016 CRISTHIAN X 1 to RCA; 12/2015 CRISTHIAN X 2-- Superior Ramus & Prox LAD; 11/2015 CRISTHIAN X 2-- LCx & Inferior Ramus) + Drug-eluting stent(s) (s/p multiple CRISTHIAN-- 04/2016 CRISTHIAN X 1 to RCA; 12/2015 CRISTHIAN X 2-- Superior Ramus & Prox LAD; 11/2015 CRISTHIAN X 2-- LCx & Inferior Ramus) + CHF (EF 45% per TTE 07/2022) Diastolic function: unknown/unspecified LVEF: 40-50%. + Current valvular disease - MR - mild; TR - mild. Pertinent negatives: [place] ; CABG ; valve replacement; atrial fibrillation; arrhythmia; pacemaker/ICD;PVD; DVT/PE; bare metal stent(s) and coronary angioplasty Comments: Followed by asphalt worker, Dr Bradley-- Last OV Respiratory + Sleep apnea (PHILLIP) Prescribed device: [...] disorder Endocrine / Other + Obesity (BMI >30)- morbid obesity (BMI>40). Pertinent negatives: diabetes mellitus; thyroid disease; cancer history; rheumatological disease and transplanted organ Functional Capacity Functional capacity: <4 METs Functional capacity limited by a non-cardiovascular, non-pulmonary condition. Comments: Can walk ~200 feet before needing to stop and rest d/t back pains-- Denies SOB/CP with activity. Review of Systems + palpitations (Occasional with Afib) + easy bruising (d/t Eliquis and Plavix-- denies excessive bleeding) + chronic pain (Lower back) + numbness/tingling (Intermittent N/T LUE d/t nerve issue in elbow) + vision loss (+Glasses) + heartburn (PRN Rolaids) Pertinent negatives: productive cough; wheezing; SOB; recent cold/flu; fever; chest pain; orthopnea; pedal edema; PND; Sickle Cell disease/trait; previous transfusion; transfusion reaction; melena/hematochezia; bleeding problems; syncope; dizziness; muscle weakness; hard of hearing; nausea; dysphagia; diarrhea; dentures/partials; chipped/loose teeth; abdominal pain; diaphoresis and no unexpected weight change PAT Summary and Plans Cardiac risk classification of planned procedure: low cardiac risk. Disposition: suitable for outpatient surgery center. Preoperative assessment status: complete. Initial preoperative evaluation discussed with: Carlos Do MD Additional comments: Du Anderson is a 67 y.o. male who is being evaluated prior to undergoing a low cardiac risk surgery. Revised Cardiac Risk Index factors are (ischemic heart disease and historyof CHF) for a total RCRI of 2 out of 6. Functional capacity is <4 METs (specifically:Decreased activity d/t pain). Comorbidities include: CAD s/p CRISTHIAN (2015 & 04/2022), CHF (EF 45%), Afib, HTN, HLD, PHILLIP, Morbid Obesity (BMI= 40), Chronic pain Obstructive sleep apnea (PHILLIP) screening status is [...] provided by telephone and electronically sent via [facility]. Patient verbalized understanding of instructions. Blood bank needs for day of procedure: No type and screen needed CBC done 04/25/2022, CMP done 06/21/2022-- Cr= 0.88 Pending labs/tests include: None EKG 02/06/2023, TTE 07/20/2022, LHC 04/25/2022, Stress test 07/12/2021--See diagnostic section and in Epic This patient has a history of atrial fibrillation at LOW risk for perioperative thromboembolic events with a KSH2RT1-UXSs score of 4 and no known history of related thromboembolic events, as per the 2017 ACC Expert Consensus Pathway. The patient is on oral anticoagulation therapy with apixaban (ELIQUIS) and is scheduled for a procedure with a planned/possible nerve block and/or is at low or intermediate risk for perioperative thrombosis. Estimated creatinine clearance is 133 ml/min. We recommend holding all doses of this anticoagulant for 72 hours prior to the procedure. Therapeutic anticoagulation should be resumed post-operatively when the bleeding risk is acceptable. Alternative anticoagulation therapies can be used in the interim if acceptable. The patient is on clopidogrel therapy and has a history of CRISTHIAN and CAD. Due to the likely higher bleeding risk of this drug, we recommend switching the patient to aspirin therapy for the perioperative period. We recommend discontinuing clopidogrel for 7 days prior to the procedure and starting aspirin 81 mg daily at that time. The patient can be switched back to their original medication when thebleeding risk has decreased. Please call the CPAP chart room clinician ([phone]) with any questions or to discuss alternative management plans. Per [place], Dr Bradley's OV note 01/23/2023-- He is on Plavix. I have stopped ASA as he is also on Eliquis. He is other vinson recommended to start walking . [He] will start the aspirin back after April 11, 2023 when [he] will stop the Plavix. Notified surgeon's office regarding above issue(s)-- Staff message sent to [facility] and requested they FU with pt and instruct pt on final recs for aspirin, Plavix, and Eliquis. Pt had Ligation of intersphincteric fistula tract done 02/21/2023 at [facility]-- No documented complications with anesthesia noted and pt is stable at baseline. TPAP assessment complete. Preoperative evaluation performed by Toya He NP on 04/12/23 at 11:40 AM . Patient Active Problem List Diagnosis Abnormal cardiovascular stress test Shortness of breath Hyperlipidemia Hypertension Coronary artery disease involving [place] coronary artery of [place] heart without angina pectoris Low back pain, non-specific Abnormal EKG Chest pain Acute diastolic congestive heart failure ([facility]) ([facility]) Anal fistula Past Medical History: Diagnosis Date Arthritis Atrial fibrillation ([facility]) ([facility]) s/p cardioversion 2019-- Currently treated with Eliquis CHF (congestive heart failure) ([facility]) ([facility]) Coronary artery disease s/p multiple CRISTHIAN-- 04/2016 CRISTHIAN X 1 to RCA; 12/2015 CRISTHIAN X 2-- Superior Ramus & Prox LAD; 11/2015 CRISTHIAN X 2-- LCx & Inferior Ramus Gout Hypercholesterolemia Treated with statin Hypertension Dxd ~2003 Mitral regurgitation Morbid obesity ([facility]) PHILLIP (obstructive sleep apnea) CPAP machine nightly Osteoarthritis PONV (postoperative nausea and vomiting) Tricuspid regurgitation Past Surgical History: Procedure Laterality Date ANAL EXAMINATION UNDER ANESTHESIA 12/10/2022 Exam under anesthesia and seton placement CARDIAC STENT PLACEMENT 12/2015 CRISTHIAN X 2-- Superior Ramus & Prox LAD; 11/2015 CRISTHIAN X 2-- LCx & Inferior Ramus CARDIAC STENT PLACEMENT 04/2022 CRISTHIAN X 1 to RCA CARDIOVERSION 2019 WILMER guided COLONOSCOPY Multiple-- Last ~2019 FISTULA REPAIR 02/21/2023 Ligation of intersphincteric fistula tract and drainage of perianal sinus tract PARTIAL HIP ARTHROPLASTY Right 09/2021 POSTERIOR FUSION LUMBAR SPINE 2014 L3-5 PSF ([place]) TOTAL HIP ARTHROPLASTY Left 12/2019 TOTAL KNEE ARTHROPLASTY Right 01/2016 TOTAL KNEE ARTHROPLASTY Left 05/2018 Allergies Allergen Reactions Rosuvastatin Muscle pain Med List Status: Nurse Complete Set By: Gely Hutchins RN at 04/10/2023 1:25 PM Taking? Last Dose Start Date End Date Provider allopurinol (ZYLOPRIM) 300 mg tablet 04/09/2023 06/01/18 -- Abrna Canales MD amoxicillin 500 mg capsule More than a month 01/25/23 -- Abran Canales MD apixaban (ELIQUIS) 5 mg tablet 04/10/2023 07/06/20 -- Hussain Mitchell MD Take 1 tablet (5 mg total) by mouth 2 (two) times a day Patient taking differently: Take 1 tablet (5 mg total) by mouth 2 (two) times a day atorvastatin (LIPITOR) 80 mg tablet 04/10/2023 04/19/22 04/19/23 Ari Bradley MD Take 1 tablet (80 mg total) by mouth daily Patient taking differently: Take 1 tablet (80 mg total) by mouth director home before breakfast carvediloL (COREG) 6.25 mg tablet 04/10/2023 12/24/22 -- Ari Bradley MD TAKE 1 TABLET BY MOUTH TWICE DAILY WITH MEALS Patient taking differently: Take 1 tablet (6.25 mg total) by mouth 2 (two) times a day with meals Notes: Requesting 1 year supply cholecalciferol (VITAMIN D-3) 55366 unit capsule 04/10/2023 -- -- Abran Canales MD clopidogreL (PLAVIX) 75 mg tablet 04/10/2023 07/29/22 -- Ari Bradley MD TAKE 1 TABLET BY MOUTH DAILY Patient taking differently: Take 1 tablet (75 mg total) by mouth director home before breakfast Notes: Requesting 1 year supply dapagliflozin (FARXIGA) 10 mg tablet 04/10/2023 06/21/22 -- Ari Bradley MD Take 1 tablet (10 mg total) by mouth daily Patient taking differently: Take 1 tablet (10 mg total) by mouth director home before breakfast Notes: [id number] 09/05/2024 furosemide (LASIX) 80 mg tablet 04/10/2023 12/24/22 -- Ari Bradley MD TAKE 1 TABLET BY MOUTH DAILY Patient taking differently: Take 1 tablet (80 mg total) by mouth director home before breakfast Notes: Requesting 1 year supply multivitamin capsule 04/10/2023 -- -- Provider, MD Abran nitroglycerin (NITROSTAT) 0.4 mg SL tablet -- 06/21/22 06/21/[address] 1 tablet (0.4 mg total) under the tongue every 5 (five) minutes as needed for chest pain (prn) Notes: Never taken oxyCODONE (ROXICODONE) 5 mg immediate release tablet More than a month 02/21/23 -- Evy Looney MD Take 1 tablet (5 mg total) by mouth every 4 (four) hours as needed for pain potassium chloride ER 20 mEq CR tablet 04/10/2023 09/06/22 -- Ari Bradley MD Take 1 tablet (20 mEq total) by mouth 2 (two) times a day Patient taking differently: Take 1 tablet (20 mEq total) by mouth 2 (two) times a day Notes: Last K+: 4.0 on 06/21/22 sacubitriL-valsartan (ENTRESTO) 24-26 mg tablet 04/10/2023 03/15/22 -- Ari Bradley MD Take 1 tablet by mouth 2 (two) times a day No current facility-administered medications for this encounter. Current Outpatient Medications: allopurinol (ZYLOPRIM) 300 mg tablet apixaban (ELIQUIS) 5 mg tablet atorvastatin (LIPITOR) 80 mg tablet carvediloL (COREG) 6.25 mg tablet cholecalciferol (VITAMIN D-3) 82654 unit capsule clopidogreL (PLAVIX) 75 mg tablet dapagliflozin (FARXIGA) 10 mg tablet furosemide (LASIX) 80 mg tablet multivitamin capsule nitroglycerin (NITROSTAT) 0.4 mg SL tablet potassium chloride ER 20 mEq CR tablet sacubitriL-valsartan (ENTRESTO) 24-26 mg tablet amoxicillin 500 mg capsule oxyCODONE (ROXICODONE) 5 mg immediate release tablet Social History Tobacco Use Smoking Status Never Passive exposure: Never Smokeless Tobacco Never Alcohol Use: Not At Risk (04/10/2023) AUDIT-C Frequency of Alcohol Consumption: 2-4 times a month Average Number of Drinks: 3 or 4 Frequency of Binge Drinking: Never Substance and Sexual Activity Drug Use Never Family History Problem Relation Age of Onset Diabetes Mother Hypertension Mother Heart attack Father 59 Family history of heart attack - (Added by TW Conv) Hypertension Father Heart disease Brother Hypertension Brother Anesthesia problems Neg Hx PAT Physical Exam Additional comments: Telephone assessment has been performed and DOS physical exam will need to be performed by anesthesia provider. There were no vitals filed for this visit. Relevant diagnostics: ECG(s): EKG 02/06/2023-- Afib 94 bpm Echocardiogram(s): TTE 07/20/2022-- LA is markedly dilated. Normal RV cavity size. LV cavity size is normal. Normal LV wall thickness/mass. Mild LV global hypokinesis. Normal Inferior vena cava. Normal aorta. No AR seen, Mild MR, no , no MS, mild TV regurgitation, normal PV.Diastolic function: indeterminate.LVEF 45%. Stress test(s): Stress test 07/12/2021-- Pharmaceutical Myocardial perfusion imaging is abnormal. There [...] Clinically normal ECG. Electrocardiographically normal ECG. Cardiac catheterization(s): [facility] 04/25/2022-- 1. 3 Vessel CAD with patent stent in LAD, Ramus ,first marginal branch and 70% mid RCA lesion. 2. No gradient across aortic valve. 3. The left ventricular end-diastolic pressure is 19-21 mmHg. - Diagnostic Impression Successful drug-eluting Synergy stent [...] within last 30 days. Dawson index score: 95 DOS Physical Exam Medical history, medications, and allergies reviewed. Attestation: This PAT evaluation Airway Exam: Mallampati: III Cervical ROM: FROM Cardiovascular Exam: Rate: regular Rhythm: regular Pulmonary Exam: LCTA, bilat Anesthesia Plan ASA 3 My patient is approved for the Anesthesia Controlled Medication protocol when under care of a CLOTH BRUSHING AND SUEDING SUPERVISOR Planned anesthesia: MAC Induction: Induction: intravenous. Postoperative Plan: No plan for postoperative opioid use. No postoperative mechanical ventilation intended. Patient's planned disposition post procedure is Outpatient. Informed Consent: Discussed plan with CLOTH BRUSHING AND SUEDING SUPERVISOR. Anesthesia plan and risks discussed with patient. Consent and Attending signature: I and/or my designee have discussed the anesthesia plan, benefits, possible alternatives, parental presence at time of induction (if indicated), and clinically relevant risks that may include dental injury, unintentional awareness, and/or other complications. The patient and/or parent/legal guardian understand, and agree to proceed. All questions answered. documented in this encounter Miscellaneous Notes * Op Note - Roberto Medley MD - 04/26/2023 8:00 AM CDT SURGICAL TEAM Surgeon(s) and Role: * Roberto Medley MD - Primary * Phoenix Nathan MD - Fellow ANESTHESIA: Monitor Anesthesia Care PREOPERATIVE DIAGNOSIS (ES): Anal fistula POSTOPERATIVE DIAGNOSIS (ES): Perianal sinus NAME OF OPERATION: Exam under anesthesia and perineal drain placement INDICATIONS FOR PROCEDURE: The patient is a 67 y.o. male with a history of an anal fistula. He had a lift procedure for repair. He still has drainage from the former external opening. We had originally placed a mushroom catheter in that opening, but it fell out on postoperative day eight. He is brought back to the operating room to evaluate for a new fistula or sinus. FINDINGS: The right-sided perianal external opening was probed and the probe again passed deep in the post anal space. There was no residual fistula. DESCRIPTION OF PROCEDURE: The patient was brought the operating room, placed under MAC anesthesia in the prone jose-knife position. The perineum was prepped and draped in normal sterile fashion and anesthetized with 40 mL of 0.25% Marcaine. A detailed digital rectal exam was performed which was normal. An anoscope was placed in the anal canal. The previous internal opening and lift incision were completely healed. There was no evidence of any residual internal opening. The external opening was probed and the probe passed deep in the post anal space over a length of about 6-7 cm. This was injected with hydrogen peroxide. No hydrogen peroxide appeared within the wound after injection of 10 mL. A 16 Romansh mushroom catheter was then placed within this perianal sinus and fixed to the skin with a silk suture. The plan will be to leave this drain in for at least 10-12 weeks. Estimated Blood Loss: None IV Fluids: See Anesthesia records Sponge, Instrument and Needle counts: Correct times two Presence statement: I was present for the entire procedure from start to finish * Pre-Procedure Instructions - Toya He NP - 04/12/2023 12:24 PM CDT [facility] Pre[facility] Assessment and Planning CPAP Clinic Location: [facility] The night before your surgery: * Do not eat anything after midnight the night before your procedure. The morning of your surgery: * You may have clear liquids on your surgery day. You must stop drinking two hours before you arrive to the surgery facility. Acceptable clear liquids include water, clear sports drinks, black coffee, or clear soda. DO NOT drink any milk, creamer, or alcohol. * Your surgeon's office may have provided additional instructions or restrictions. Please follow those instructions. * You may brush your teeth and rinse your mouth out. * Do not glue your dentures. * Do not wear jewelry, body piercings, makeup, hairpins, false eyelashes or contact lenses to the hospital. * Leave any valuables at home or with your family. Outpatient Surgery: * You must have a responsible adult drive you home and stay with you for 24 hours after your surgery * You cannot be alone at home or in a hotel * Please call your surgeon's office if you do not have someone to drive you home and/or stay with you after surgery * Please bring any items you may need to spend the night in the hospital. Sometimes patients need to be cared for in the hospital overnight. If you have Sleep Apnea (PHILLIP): * Bring your CPAP/BiPAP/VPAP machine to the hospital the day of your surgery * For a few days after your surgery, you will need to wear your CPAP/ BiPAP/VPAP machine any time your are sleeping. This includes when you take a nap. Instructions For Your Medications: Pre-Surgery Instructions: Medication Instructions allopurinol (ZYLOPRIM) 300 mg tablet Take night before surgery as usual apixaban (ELIQUIS) 5 mg tablet Surgeon's office will instruct you on this medication. atorvastatin (LIPITOR) 80 mg tablet Take morning of surgery carvediloL (COREG) 6.25 mg tablet Take morning of surgery cholecalciferol (VITAMIN D-3) 57035 unit capsule Don't take on day of surgery clopidogreL (PLAVIX) 75 mg tablet Surgeon's office will instruct you on this medication. dapagliflozin (FARXIGA) 10 mg tablet Don't take on day of surgery furosemide (LASIX) 80 mg tablet Don't take on day of surgery multivitamin capsule Stop taking 1 week prior to surgery nitroglycerin (NITROSTAT) 0.4 mg SL tablet Take on day of surgery if needed potassium chloride ER 20 mEq CR tablet Don't take on day of surgery sacubitriL-valsartan (ENTRESTO) 24-26 mg tablet Take morning of surgery amoxicillin 500 mg capsule Take on day of surgery if needed oxyCODONE (ROXICODONE) 5 mg immediate release tablet Take on day of surgery if needed Your surgeon will tell you IF YOU SHOULD STOP the following medications and WHEN TO STOP taking them. Do not stop taking them on your own without being told to do so: ELIQUIS, PLAVIX & ASPIRIN General Instructions For Medications: * Stop all of these medications 5 days prior to your surgery: excedrin, motrin, advil, ibuprofen, aleve, naproxen, meloxicam, celebrex, celecoxib. For medications that you are instructed to take on the morning of surgery, take the medications with a few sips of water. Stop all of these medications 7-14 days prior to your surgery: Vitamin E, Herbal medicines, Diet Pills If you take aspirin, do not stop taking it unless you were instructed to do so. If you have pain, you may take tylenol (acetaminophen). Do not take more than 6 tablets or 3000 mg (3 g) within a 24 period. Call your surgeon and the CPAP clinic if any of the following happens before surgery: Any changes in your health You have a fever You have any signs of an infection (chest, urinary tract or tooth) You have been to the Emergency Room or were in the hospital You have started taking any new medications You have questions about a bowel prep or special diet before surgery You have symptoms of COVID-19 such as a new or worsening cough, shortness of breath, fever, body aches, loss of taste or smell, diarrhea or vomiting, or sore throat. You have a household contact with COVID-19. You test positive for COVID-19. * Perioperative Nursing Note - Gely Hutchins RN - 04/10/2023 1:30 PM CDT Center for Preoperative Assessment and Planning Perioperative Nursing Note Telephone Preoperative Evaluation ([facility]) - TELEPHONE ONLY, NO PHYSICAL EXAM Date: 04/10/23 Vitals: 04/10/23 1325 Weight: (!) 154.2 kg (340 lb) Height: 195.6 cm (6' 5 ) CHEST CIRCUMFERENCE: n/a Social History Tobacco Use Smoking Status Never Passive exposure: Never Smokeless Tobacco Never Substance and Sexual Activity Drug Use Never Alcohol Use Q1: How often do you have a drink containing alcohol?: 2-4 times a month Q2: How many drinks containing alcohol do you have on a typical day when you are drinking?: 3 or 4 Q3: How often do you have six or more drinks on one occasion?: Never Outpatient Medications Marked as Taking for the 04/26/23 encounter (Hospital Encounter) Medication Sig Dispense Refill allopurinol (ZYLOPRIM) 300 mg tablet Take 1 [...] 1 tablet (80 mg total) by mouth director home before breakfast) 30 tablet 11 carvediloL (COREG) 6.25 mg tablet TAKE 1 TABLET BY MOUTH TWICE DAILY WITH MEALS (Patient taking differently: Take 1 tablet (6.25 mg total) by mouth 2 (two) times a day with meals) 200 tablet 2 cholecalciferol (VITAMIN D-3) 17840 unit capsule Take 1 capsule (10,000 Units total) by mouth earlymorning before breakfast clopidogreL (PLAVIX) 75 mg tablet TAKE 1 TABLET BY MOUTH DAILY (Patient taking differently: Take 1 tablet (75 mg total) by mouth director home before breakfast) 90 tablet 3 dapagliflozin (FARXIGA) 10 mg tablet Take 1 tablet (10 mg total) by mouth daily (Patient taking differently: Take 1 tablet (10 mg total) by mouth director home before breakfast) 14 tablet 0 furosemide (LASIX) 80 mg tablet TAKE 1 TABLET BY MOUTH DAILY (Patient taking differently: Take 1 tablet (80 mg total) by mouth director home before breakfast) 100 tablet 2 multivitamin capsule Take 1 capsule by mouth director home before breakfast nitroglycerin (NITROSTAT) 0.[address] 1 tablet (0.4 mg total) under the tongue every 5 (five) minutes as needed for chest pain (prn) 25 tablet 2 potassium chloride ER 20 mEq CR tablet Take 1 tablet (20 mEq total) by mouth 2 (two) times a day (Patient taking differently: Take 1 tablet (20 mEq total) by mouth 2 (two) times a day) 180 tablet 3 sacubitriL-valsartan (ENTRESTO) 24-26 mg tablet Take 1 tablet by mouth 2 (two) times a day 180 tablet 3 Implants Stent [employer] Chris Synergy Xd 4mm 48mm System Coronary Stent Everolimus [id number] - [id number] - [id number] - Implanted (Right) Coronary Artery Inventory item: [employer] SCIENTIFIC CHRIS SYNERGY XD 4MM 48MM SYSTEM CORONARY STENT EVEROLIMUS [id number] Model/Cat number: [id number] Serial number: [id number] Community Director: [employer] Lot number: [id number] As of 04/25/2022 Status: Implanted SKIN Piercings Remaining: No Wound (LDAs) Type of Wound (LDA): (denies) SCREENINGS Dawson index score: 95 NUTRITION PATIENT CARE PLANNING Advance Directives (For Healthcare) Have you reviewed your Advance Directive and is it valid for this stay?: Not applicable Advance Directive: Patient does not have advance directive 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 Communication Needs: Glasses Assistive Devices/DME: Eyeglasses, CPAP/BiPAP, Cane, Motorized scooter Hearing - Right Ear: Functional Hearing - Left Ear: Functional Discharge Planning Type of Residence: Private residence Living Arrangements: Spouse/significant other Support Systems: Spouse/significant other Patient expects to be discharged to:: Private residence SUPERVISING BAILIFF NO ADDITIONAL COMMENTS/ FOLLOW UP * Pre-Procedure Instructions - Gely Hutchins RN - 04/10/2023 1:28 PM CDT [facility]ENTER FOR PREOPERATIVE ASSESSMENT AND PLANNING [...] remove nail coverings, artificial nails and nail hungarian prior to the day of surgery. You should leave your valuables and any jewelry at home. No metal or piercings are allowed in the operating room. You should bring your insurance card, a photo ID (example: Motor Vehicle Escort Driver's License) and a method of payment for [...] copy is already in your Epic Chart. A Guide for Patients Having Surgery: Your [...] Remove nail coverings, artificial nails and nail hungarian. Place clean linens on your bed the [...] Are you having any of the following:: None As of 07/31/2022 any COVID TESTING required for surgery will be set up by your surgeon's office. Please reach out to your surgeon's office if you develop any COVID symptoms, test positive for COVID or are exposed to a COVID positive person. If you have questions, please call the CPAP Staff at [phone], Saturday-Saturday 8am-4:30pm. All patients should read the below section: COVID 19 Updates & Visitor Policy: Please access [email or web address] for the most updated information. Information on [facility]: Please view [email or web address] (Patient & Visitor Information) for additional details regarding Advanced Directive forms, AWARE, directions, parking information, lodging, Internet access, dining and more. For MyChart information, to activate account or password recovery, please go to [email or web address] or call [phone] (toll-free: [phone]). Information for Suicide Prevention: National Suicide Prevention Lifeline (6-869- 200-YOQN (0508)). Surgery Times: For patients having surgery @ [facility], [facility] or [facility] ([facility]), if your surgeon's office has not notified you of your surgery time by NOON THE BUSINESS DAY BEFORE your surgery, please call [phone] and ask for your surgeon's office Dr. Kecia Medley. documented in this encounter Plan of Treatment Not on file documented as of this encounter Procedures Procedure Name Priority Date/Time Associated Diagnosis Comments EXAM UNDER ANESTHESIA - RECTUM 04/26/2023 8:00 AM CDT Anal fistula documented in this encounter Visit Diagnoses Diagnosis Anal fistula- Primary Encounter for preadmission testing Anal fistula documented in this encounter Admitting Diagnoses Diagnosis Anal fistula documented in this encounter Administered Medications Inactive Administered Medications - up to 3 most recent administrations Medication Order MAR Action Action Date Dose Rate Site acetaminophen (TYLENOL) tablet 1,000 mg 1,000 mg, oral, Once, On Sat04/26/23 at 0730, For 1 dose, Pre-Op, Indications: Pre-Emptive AnalgesiaIndications :Pre-Emptive Analgesia Given 04/26/2023 7:18 AM CDT 1,000 mg BUPivacaine-EPINEPHr ine (MARCAINE with EPI) 0.25 %-1:200,000 preservative free injection As needed, Starting on Sat04/26/23 at 0809, Intra-Op Given 04/26/2023 8:09 AM CDT 40 mL Surgical Site Carrier Fluids for Secondary Infusion - 0.9% Sodium Chloride 30 mL, intravenous, As needed, For priming tubing and/or flushing, Starting on Sat04/26/23 at 0649, Pre-Op, 0-250 ml/hr to flush line after IV infusions when no maintenance IV ordered. Infuse 30mL at the same rate as the secondary infusion. Run as primary IV, not intended for KVO.Indications:Enco unter for preadmission testing hydrogen peroxide 3 % external solution As needed, Starting on Sat04/26/23 at 0810, Intra-Op Given 04/26/2023 8:10 AM CDT 1 Application Surgical Site Lactated Ringer's (LR) infusion 30 mL/hr, intravenous, Continuous, Starting on Sat04/26/23 at 0730, Pre-OpIndications:En counter for preadmission testing Lactated Ringer's (LR) infusion 30 mL/hr, intravenous, Continuous, Starting on Sat04/26/23 at 0730, Pre-Op, Rate/Dose Change 04/26/2023 8:04 AM CDT 30 mL/hr Rate/Dose Verify 04/26/2023 8:00 AM CDT 30 mL/h r New Bag 04/26/2023 7:14 AM CDT 30 mL/hr 30 mL/hr sodium chloride 0.9% flush 0.5-20 mL 0.5-20 mL, intra-catheter, As needed, line care, Starting on Sat04/26/23 at 0649, Pre-Op, Flush volume based on line type and size. Flush before and after each use.Indications:Encounter for preadmission testing sodium chloride 0.9% irrigation As needed, Starting on Sat04/26/23 at 0810, Intra-Op Given 04/26/2023 8:10 AM CDT 500 mL Surgical Site sterile water irrigation As needed, Starting on Sat04/26/23 at 0811, Intra-Op Given 04/26/2023 8:11 AM CDT 500 mL Other (Comment) documented in this encounter Discontinued Medications Medication Sig Discontinue Reason Start Date End Da te niacin 500 mg tablet Take 1 tablet (500 mg total) by mouth 2 (two) times a day with meals 10/05/2019 04/10/2023 oxyCODONE (ROXICODONE) 5 mg immediate release tabletIndications:Pain Take 1 tablet (5 mg total) by mouth every 4 (four) hours as needed for pain Stop Taking at Discharge 02/21/2023 04/26/2023 documented as of this encounter Historical Medications * This list may reflect changes made after this encounter. amoxicillin 500 mg capsule Take by mouth as needed (dental procedure) 01/25/2023 11/11/2023 added in this encounter Active and Recently Administered Medications Times are shown in CDT. Scheduled Medication Order 04/24/2023 04/25/2023 04/26/2023 acetaminophen (TYLENOL) tablet 1,000 mg (COMPLETED) 1,000 mg, oral, Once, On Sat04/26/23 at 0730, For 1 dose, Pre-Op, Indications: Pre-Emptive Analgesia 0718 (Given - Provid er: Verenice Sheriff RN) Continuous Medication Order 04/24/2023 04/25/2023 04/26/2023 Lactated Ringer's (LR) infusion 30 mL/hr, intravenous, Continuous, Starting on Sat04/26/23 at 0730, Pre-Op 0730 (Due) Lactated Ringer's (LR) infusion 30 mL/hr, intravenous, Continuous, Starting on Sat04/26/23 at 0730, Pre-Op, 0714 (New Bag - Prov ider: Verenice Sheriff RN)0800 (Rate/Dose Verify - Provider: Kar Wilson CRNA)0804 (Rate/Dose Change - Provider: Kar Wilson CRNA)1301 (Due: Stopped) PRN Medication Order 04/24/2023 04/25/2023 04/26/2023 BUPivacaine-EPINEPHrine (MARCAINE with EPI) 0.25 %-1:200,000 preservative free injection (CANCELED) As needed, Starting on Sat04/26/23 at 0809, Intra-Op 0809 (Given - Provid er: Roberto Medley MD) Carrier Fluids for Secondary Infusion - 0.9% Sodium Chloride 30 mL, intravenous, As needed, For priming tubing and/or flushing, Starting on Sat04/26/23 at 0649, Pre-Op, 0-250 ml/hr to flush line after IV infusions when no maintenance IV ordered. Infuse 30mL at the same rate as the secondary infusion. Run as primary IV, not intended for KVO. fentaNYL (SUBLIMAZE) preservative free syringe 50 mcg 50 mcg, intravenous, Once as needed, uncontrolled pain on PACU admission, Starting on Sat04/26/23 at 0819, For 1 dose, Phase I, Then proceed to PACU 1st line analgesic., Indications: Pain fentaNYL (SUBLIMAZE) preservative free syringe 50 mcg 50 mcg, intravenous, Once as needed, breakthrough pain, Starting on Sat04/26/23 at 0819, For 1 dose, Phase I, Administer for uncontrolled or increasing pain while in PACU only. HYDROcodone-acetaminophen (NORCO) 5-325 mg per tablet 1 tablet 1 tablet, oral, Once as needed, 1st line for pain, Starting on Sat04/26/23 at 0819, For 1 dose, Phase I, When able to tolerate PO., Indications: Pain hydrogen peroxide 3 % external solution (CANCELED) As needed, Starting on Sat04/26/23 at 0810, Intra-Op 0810 (Given - Provid er: Roberto Medley MD) lidocaine PF (XYLOCAINE) 10 mg/mL (1 %) preservative free injection 2-10 mg 2-10 mg (0.2-1 mL), other, Once as needed, pain with IV placement, Starting on Sat04/26/23 at 0649, For 1 dose, Pre-Op, Administer volume needed to infiltrate IV site. naloxone (NARCAN) 0.4 mg/mL injection 0.04-0.4 mg 0.04-0.4 mg, intravenous, Once as needed, other, excessive sedation/respiratory depression, Starting on Sat04/26/23 at 0819, For 1 dose, Phase I, Dilute 0.4 mg with 9 mL NS (final concentration 0.04 mg/mL). For respiratory depression (respiratory rate less than 6), administer 0.4 mg IVP over 30 seconds. For excessive sedation administer 0.04 mg (1 mL) every 1 minute until desired level of alertness. For IV, administer over 30 seconds., Indications: Opioid Toxicity ondansetron (ZOFRAN) injection 4 mg 4 mg, intravenous, Administer over 2 Minutes, Once as needed, nausea, vomiting, Starting on Sat04/26/23 at 0819, For 1 dose, Phase I, Proceed to prochlorperazine if ondansetron has been given within the last 6 hours. prochlorperazine (COMPAZINE) injection 5 mg 5 mg, intravenous, Administer over 2 Minutes, Once as needed, nausea, vomiting, Starting on Sat04/26/23 at 0819, For 1 dose, Phase I, If nausea/vomiting not relieved by ondansetron within 30 minutes or if ondansetron has been given within the last 6 hours. sodium chloride 0.9% flush 0.5-20 mL 0.5-20 mL, intra-catheter, As needed, line care, Starting on Sat04/26/23 at 0649, Pre-Op, Flush volume based on line type and size. Flush before and after each use. sodium chloride 0.9% irrigation (CANCELED) As needed, Starting on Sat04/26/23 at 0810, Intra-Op 0810 (Given - Provid er: Roberto Medley MD) sterile water irrigation (CANCELED) As needed, Starting on Sat04/26/23 at 0811, Intra-Op 0811 (Given - Provid er: Roberto Medley MD - Comment: instrument rinse) documented in this encounter Orders Medications Ordered That Laith ht Not Have Been Administered Count Last Ordered Date First Ordered Date Carrier Fluids for Secondary Infusion - 0.9% Sodium Chloride 1 04/26/2023 fentaNYL (SUBLIMAZE) preserv ative free syringe 50 mcg 2 04/26/2023 HYDROcodone-acetaminophen (N ORCO) 5-325 mg per tablet 1 tablet 1 04/26/2023 Lactated Ringer's (LR) infusion 1 3 lidocaine PF (XYLOCAINE) 10 mg/mL (1 %) preservative free injection 2-10 mg 1 04/26/2023 naloxone (NARCAN) 0.4 mg/mL injection 0.04-0.4 mg 1 04/26/2023 ondansetron (ZOFRAN) injection 4 mg 1 04/26 prochlorperazine (COMPAZINE) injection 5 mg 04/26/2023 sodium chloride 0.9% flush 0.5-20 mL 04/07 documented in this encounter 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
--- OUTSIDE RECORDS SUMMARY | 2024-10-05 02:50 | XMS_ITS | Encounter Summary ---
Author Organization [facility] Healthcare Address [address] [facility] [place] [address] Care Team Providers Care Gameplay Engineer Name Role Phone Gianluca Price MD Primary Care Provider Ayden Corona DO Unavailable [phone] Roberto Medley MD Unavailable [phone] Reason for Visit * Auth/Cert (Routine) Specialty Diagnoses / Procedures Referred By Contac t Referred To Contact Diagnoses Anal fistula Anal fistula [K60.3] Procedures AZ ANRCT XM SURG REQ ANES GENERAL SPI/EDRL DX AZ I&D PERIANAL ABSCESS SUPERFICIAL EXAM UNDER ANESTHESIA - RECTUM INCISION AND DRAINAGE ABSCESS - RUTH-ANAL Referral ID Status Reason Start Date Expiration Date Visits Re quested Visits Authorized [id number] 1 1 Encounter Details Date Type Department Care Team (Late st Contact Info) Description 04/26/2023 8:00 AM CDT Anesthesia Event [facility] [address] [place] [address] Rosetta Lombardi MD [address] [place] [address] Swetha Lake NP [address] [facility] [phone] [place] [address] Anesthesia Record Procedure Summary Procedure Name Responsible Anesthesiologist Anesthesia Start Time Anesthesia Stop Time EXAM UNDER ANESTHESIA - RECTUM with drain plalcement (Anus) Rosetta Lombardi MD 04/26/23 0800 04/26/23 0818 Events Date Time Event Comment 04/26/2023 0744 0800 An Start 0800 An Start Data 0800 In Room 0803 Start Supplemental O2 0804 An Induction The patient was reevaluated immediately before moderate or deep sedation use and before anesthesia induction. 0804 Anesthesia Ready 0809 Proc Start 0809 Incision Start 0812 an stop data 0815 Proc Fin 0815 Out of Room 0818 An Stop 0819 Handoff to RN I completed my handoff [...] Patient disposition at the time of handoff: No value filed. Meds Name Total lidocaine (cardiac) syringe 2 % 40 mg propofol 100 mg Lactated Ringer's (LR) infusion 0 mL * Agents Name O2 N2O Air * Blood No blood administrations on file. Lines, Drains, and Airways Type Details Placement Removal RETIRED Surgical Site 12/10/22; 0852; Ruth-anal; 01/09/24; Removal date unknown/not present on admission 12/10/22 0852 by Adelia Justice RN 01/09/24 0000 by Nahed Thornton RN RETIRED Surgical Site 02/21/23; 0657; Rectum; 01/09/24; Removal date unknown/not present on admission 02/21/23 0657 by Pricila Joel RN 01/09/24 0000 by Nahed Thornton RN Closed/Suction/Open Drain 02/21/23; 0800; 1; Medial; Perineal; Other (Comment) (Mushroom Catheter 12 Fr. Drain); 12 Fr.; Removal date unknown/not present on admission 02/21/23 0800 by Pricila Joel RN 01/09/24 0000 by Nahed Thornton RN Peripheral IV Placement Date: 04/26/23; Placement Time: 708; Catheter Size: 22 G; Orientation: Left, Posterior; Location: Hand; Site Prep: Chlorhexidine; Insertion Attempts: 1; Patient Tolerance: Tolerated well; Removal Date: 04/26/23; Removal Time: 0904/26/23 0709 by Verenice Sheriff RN 04/26/23 0900 by Gem Baez RN Closed/Suction/Open Drain 04/26/23; 0810; Buttock; 16 Fr. 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 Gender Identity Not on file Sexual Orientation Not on file Occupation Industry Job Start Date Job End Date Retired Not on file Not on file Not on file documented as of this encounter OR Notes * Anesthesia Postprocedure Evaluation - Rosetta Lombardi MD - 04/26/2023 8:33 AM CDT Patient: Du Anderson Procedure Summary Date: 04/26/23 Room / Location: [facility] OPERATING ROOM 02 / [facility] Operating Room Anesthesia Start: 0800 Anesthesia Stop: 0818 Procedure: EXAM UNDER ANESTHESIA - RECTUM with drain plalcement (Anus) Diagnosis: Anal fistula (Anal fistula [K60.3]) Providers: Roberto Medley MD Responsible Provider: Rosetta Lombardi MD Anesthesia Type: MAC ASA Status: 3 Anesthesia Type: MAC Last vitals BP 93/59 Pulse 79 Temp 36.5 ??C (97.7 ??F) (Temporal) Resp 16 SpO2 91% Anesthesia Post Evaluation Patient location during evaluation: PACU Patient participation: complete - patient participated Level of consciousness: fully awake Pain management: satisfactory to patient Airway patency: adequate and patent Evidence of recall: no Cardiovascular status: acceptable and hemodynamically stable Respiratory status: acceptable Hydration status: acceptable Pt is: normothermic Nausea/Vomiting status: none No notable events documented. * Anesthesia Preprocedure Evaluation - Rosetta Lombardi MD - 04/12/2023 11:34 AM CDT Images from the original note were not included. [facility] Planning Preoperative Evaluation Record Evaluation type/location: TPAP from [facility] Planned procedure site: [facility] OR Date: 04/12/23 NOTE: This note represents a preoperative evaluation initiated via telephone interview. NO PHYSICALEXAM was performed at the time of initial assessment. A physical exam may be added to this note anddocumented below. Anesthesia Evaluation Du Anderson is a 67 y.o. male Procedure(s): EXAM UNDER ANESTHESIA - RECTUM INCISION AND DRAINAGE ABSCESS - RUTH-ANAL Pre-Op Diagnosis Codes: * Anal fistula [K60.3] [...] - mild; TR - mild. Pertinent negatives: DC ; CABG ; valve replacement; atrial fibrillation; arrhythmia; pacemaker/ICD;PVD; DVT/PE; bare metal stent(s) and coronary angioplasty Comments: Followed by [facility], Dr [facility]-- Last OV Respiratory + Sleep [...] complete. Initial preoperative evaluation discussed with: Carlos oD MD Additional comments: Du Anderson is a [...] provided by telephone and electronically sent via [employer]. Patient verbalized understanding of instructions. Blood bank needs for day of procedure: No type and screen needed CBC done 04/25/2022, CMP done 06/21/2022-- Cr= 0.88 Pending labs/tests include: None EKG 02/06/2023, TTE 07/20/2022, LHC 04/25/2022, Stress test 07/12/2021--See diagnostic section and in Epic This patient has a history of atrial fibrillation at LOW risk for perioperative thromboembolic events with a [id number] score of 4 and no known history [...] Please call the CPAP chart room clinician ([phone]) with any questions or to discuss alternative management plans. Per Cards, Dr [facility]'s OV note 01/23/2023-- He is [...] of intersphincteric fistula tract done 02/21/2023 at [facility]-- No documented complications with anesthesia noted and pt is stable at baseline. TPAP assessment complete. Preoperative evaluation performed by Toya He NP on 04/12/23 at 11:40 AM . Patient Active Problem List Diagnosis Abnormal cardiovascular stress test Shortness of breath Hyperlipidemia Hypertension Coronary artery disease involving [place] coronary artery of [place] heart without angina pectoris Low back pain, non-specific Abnormal EKG Chest pain Acute diastolic congestive heart failure (CMS/HCC) (HCC) Anal fistula Past Medical History: Diagnosis Date Arthritis Atrial fibrillation ([facility] ([facility]) s/p cardioversion 2019-- Currently treated with Eliquis CHF (congestive heart failure) ([facility] ([facility]) Coronary artery disease s/p multiple CRISTHIAN-- 04/2016 CRISTHIAN X 1 to RCA; 12/2015 CRISTHIAN X 2-- Superior Ramus & Prox LAD; 11/2015 CRISTHIAN X 2-- LCx & Inferior Ramus Gout Hypercholesterolemia Treated with statin Hypertension Dxd ~2003 Mitral regurgitation Morbid obesity ([facility]) PHILLIP (obstructive sleep apnea) CPAP machine nightly [...] (ZYLOPRIM) 300 mg tablet 04/09/2023 06/01/18 -- ProviderAbran MD amoxicillin 500 mg capsule More than [...] 1 tablet (80 mg total) by mouth certified credit counselor before breakfast carvediloL (COREG) 6.25 mg tablet 04/10/2023 12/24/22 -- Ari [facility] MD TAKE 1 TABLET BY MOUTH TWICE DAILY WITH MEALS Patient taking differently: Take 1 tablet (6.25 mg total) by mouth 2 (two) times a day with meals Notes: Requesting 1 year supply cholecalciferol (VITAMIN D-3) 81518 unit capsule 04/10/2023 -- -- ProviderAbran MD clopidogreL (PLAVIX) 75 mg tablet 04/10/2023 07/29/22 -- Ari [facility] MD TAKE 1 TABLET BY MOUTH DAILY Patient taking differently: Take 1 tablet (75 mg total) by mouth certified credit counselor before breakfast Notes: Requesting 1 year supply dapagliflozin (FARXIGA) 10 mg tablet 04/10/2023 06/21/22 -- Ari [facility] MD Take 1 tablet (10 mg total) by mouth daily Patient taking differently: Take 1 tablet (10 mg total) by mouth certified credit counselor before breakfast Notes: [id number] 09/05/2024 furosemide (LASIX) 80 mg tablet 04/10/2023 12/24/22 -- Ari [facility] MD TAKE 1 TABLET BY MOUTH DAILY Patient taking differently: Take 1 tablet (80 mg total) by mouth certified credit counselor before breakfast Notes: Requesting 1 year supply multivitamin capsule 04/10/2023 -- -- Abran Canales MD nitroglycerin (NITROSTAT) 0.4 mg SL tablet -- [...] (COREG) 6.25 mg tablet cholecalciferol (VITAMIN D-3) 19566 unit capsule clopidogreL (PLAVIX) 75 mg tablet [...] normal ECG. Electrocardiographically normal ECG. Cardiac catheterization(s): [facility] 04/25/2022-- 1. 3 Vessel CAD with patent [...] Medication protocol when under care of a RENAL TECHNICIAN Planned anesthesia: MAC Induction: Induction: intravenous. Postoperative Plan: No plan for postoperative opioid use. No postoperative mechanical ventilation intended. Patient's planned disposition post procedure is Outpatient. Informed Consent: Discussed plan with RENAL TECHNICIAN. Anesthesia plan and risks discussed with patient. [...] MAR Action Action Date Dose Rate Site Lactated Ringer's (LR) infusion 30 mL/hr, intravenous, Continuous, Starting on Sat04/26/23 at 0730, Pre-Op, Rate/Dose Change 04/26/2023 8:04 AM CDT 30 mL/hr Rate/Dose Verify 04/26/2023 8:00 AM CDT 30 mL/h r New Bag 04/26/2023 7:14 AM CDT 30 mL/hr 30 mL/hr lidocaine (cardiac) (XYLOCAINE) preservative free injection intravenous, As needed, Starting on Sat04/26/23 at 0804, Anesthesia Intra-op, Indications: Ventricular ArrhythmiasIndications:Ventricular Arrhythmias Given 04/26/2023 8:04 AM CDT 40 mg propofoL (DIPRIVAN) 10 mg/mL IV intravenous, As needed, Starting on Sat04/26/23 at 0804, Anesthesia Intra-op Given 04/26/2023 8:04 AM CDT 100 mg documented in this encounter Care Teams Gameplay Engineer Relationship Specialty Start Date End Date Gianluca Price MD PCP - General 06/18/17 Ayden Corona DO [address] [facility] [address] [place] [address] Referring Physician Surgery 10/29/22 Roberto Medley MD [phone] [place] [address] Surgeon Colon and Rectal Surgery 11/23/22 documented as of this encounter
--- OUTSIDE RECORDS SUMMARY | 2024-10-05 02:50 | XMS_ITS | Encounter Summary ---
Author Organization [facility] Address [address] [place] [address] Phone Care Team Providers Care Deputy Grand Jury Name Role Phone Gianluca Price MD Primary Care Provider Ayden Corona DO Unavailable [phone] Roberto Medley MD Unavailable [phone] Reason for Visit * Reason Comments Follow-up Non healing perianal sinus * Consultation (Routine) - Closed Specialty Diagnoses / Procedures Referred By Antonietta livingston Referred To Contact Surgery / Colon and Rectal Surgery Diagnoses Anal fistula Ayden Corona DO [address] [facility] [address] [place] [address] Phone: tel: fax: Roberto Medley MD [address] [facility] [phone] [place] [address] Phone: tel: fax: Referral ID Status Reason Start Date Expiration Date V isits Requested Visits Authorized [id number] Closed Specialty Services Required 10/29/2022 11/28/2023 99 99 Encounter Details Date Type Department Care Team (Late st Contact Info) Description 11/08/2023 12:45 PM HOSPITAL WELLNESS COORDINATOR Office Visit [facility] 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 Gender Identity Not on file Sexual Orientation Not on file Occupation Industry Job Start Date Job End Date Retired Not on file Not on file Not on file documented as of this encounter Last Filed Vital Signs Vital Sign Reading Time Taken Comments Blood Pressure 134/90 11/08/2023 1:09 PM HOSPITAL WELLNESS COORDINATOR Pulse 102 11/08/2023 1:09 PM HOSPITAL WELLNESS COORDINATOR Temperature 36.9 ??C (98.4 ??F) 11/08/2023 1:09 PM CS T Respiratory Rate - - Oxygen Saturation 99% 11/08/2023 1:09 PM HOSPITAL WELLNESS COORDINATOR Inhaled Oxygen Concentration - - Weight 157.9 kg (348 lb) 11/08/2023 1:09 PM HOSPITAL WELLNESS COORDINATOR Height 195.6 cm (6' 5 ) 11/08/2023 1:09 PM HOSPITAL WELLNESS COORDINATOR Body Mass Index 41.27 11/08/2023 1:09 PM HOSPITAL WELLNESS COORDINATOR documented in this encounter Progress Notes * Roberto Medley MD - 11/08/2023 12:45 PM CST Established Patient Follow-up Visit Interval History: The patient is a 67 y.o. male with a perianal sinus. We placed a drain last summer. About a month ago, his drain fell out. He said he had a lot of drainage immediately after but that it has been draining much less recently. He still has to wear a gauze. Review of Systems: All other systems negative except as per HPI and scanned media Physical exam: Constellation: No apparent distress. Head: Normocephalic Eyes: Anicteric Ears, mouth and nose: Normal Neurologic: Non-focal motor function Respiratory: Non-labored breathing Skin: No rashes Musculoskeletal: No gross bony deformities On exam, there is granulating opening there. There was not a significant amount of purulent drainage. Assessment and Plan: Mr. Du Anderson is a 67 y.o. male with a perianal sinus. I told him I do not think it is going to heal completely without opening it and curetting it out and then packing it. I recommended that wedo that. We will interrogated for a fistula at the time of that exam, but I think it is still just a perianal sinus. He knows he is going to have to pack this for at least a month or two after we open it. Roberto Medley MD 11/07/2023 5:48 PM This note was created in part with the assistance of [employer] voice recognition software. Traffic Control Operator variances and error may occur. Not every sentence has been reviewed in its entirety. For questions about the documentation above, please contact Dr. Medley. ITAL WELLNESS COORDINATOR documented in this encounter Plan of Treatment Not on file documented as of this encounter Visit Diagnoses Diagnosis Non-healing surgical wound, subsequent encounter- Primary documented in this encounter Care Teams Deputy Grand Jury Relationship Specialty Start Date End Date Gianluca Price MD PCP - General 06/18/17 Ayden Corona DO [address] [address] Referring Physician Surgery 10/29/22 Roberto Medley MD [phone] [place] [address] Surgeon Colon and Rectal Surgery 11/23/22 documented as of this encounter
--- OUTSIDE RECORDS SUMMARY | 2024-10-05 02:50 | XMS_ITS | Encounter Summary ---
Author Organization [facility] Address [address] [place] [address] Phone Care Team Providers Care Plastic Maker Name Role Phone Gianluca Price MD Primary Care Provider Ayden Corona DO Unavailable [phone] Roberto Medley MD Unavailable [phone] Reason for Visit * Reason Comments Follow-up Large ischiorectal s inus with perirectal drain in place Encounter Details Date Type Department Care Team (Late st Contact Info) Description 09/06/2023 12:45 PM SKIDDER Office Visit [facility] Surgery [address] [facility] [address] [place] [address] Roberto Medley MD [address] [facility] [phone] [place] [address] Anal fistula (Primary Dx) Social History Tobacco Use Types [...] on file 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 Gender Identity Not on file Sexual Orientation Not on file Occupation Industry Job Start Date Job End Date Retired Not on file Not on file Not on file documented as of this encounter Last Filed Vital Signs Vital Sign Reading Time Taken Comments Blood Pressure 123/87 09/06/2023 12:39 PM SKIDDER Pulse 97 09/06/2023 12:39 PM SKIDDER Temperature 36.4 ??C (97.6 ??F) 09/06/2023 12:[address] Respiratory Rate - - Oxygen Saturation 97% 09/06/2023 12:39 PM SKIDDER Inhaled Oxygen Concentration - - Weight 159 kg (350 lb 8 oz) 09/06/2023 12:39 PM SKIDDER Height 195.6 cm (6' 5 ) 09/06/2023 12:39 PM SKIDDER Body Mass Index 41.56 09/06/2023 12:39 PM SKIDDER documented in this encounter Progress Notes * Roberto Medley MD - 09/06/2023 12:45 PM CST Established Patient Follow-up Visit Interval History: The patient is a 67 y.o. 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 He has ahistory of previous fistula disease. He has had a longstanding mushroom catheter in the cavity and comes in today for potential removal. He said the drain slipped out after we cut the suture and he pushes then and now is disappeared. He has had some minimally improved drainage. Review of Systems: All other systems negative except as per HPI and scanned media Physical exam: Constellation: No apparent distress. Head: Normocephalic Eyes: Anicteric Ears, mouth and nose: Normal Neurologic: Non-focal motor function Respiratory: Non-labored breathing Skin: No rashes Musculoskeletal: No gross bony deformities On exam his perineum, the drain disappeared. I reached into the external opening with a clamp and was able to find it and delivered out through the external opening. We secured it with a safety pin. This is still quite a deep cavity. There was also fair amount of purulent drainage around the drain. Assessment and Plan: Mr. Du Anderson is a 67 y.o. male with a large perianal sinus that is healing extremely slowly. I will see him back in 2-3 months. We will assess him for catheter removal at that time. If it is not much better, we might consider opening it much more widely and packing it. Roberto Medley MD 09/05/2023 12:58 PM This note was created in part with the assistance of [employer] voice recognition software. Soft Work Wrapper Layer And Examiner variances and error may occur. Not every sentence has been reviewed in its entirety. For questions about the documentation above, please contact Dr. Medley. DER documented in this encounter Plan of Treatment Not on file documented as of this encounter Visit Diagnoses Diagnosis Anal fistula- Primary documented in this encounter Historical Medications * This list may reflect changes made after this encounter. clopidogreL (PLAVIX) 75 mg tabletIndications :stent placed 2019 Take 1 tablet (75 mg total) by mouth every morning 09/02/2023 11/18/2023 added in this encounter Care Teams Plastic Maker Relationship Specialty Start Date End Date Gianluca Price MD PCP - General 06/18/17 Ayden Corona DO [address] [facility] [address] [address] Referring Physician Surgery 10/29/22 Roberto Medley MD [phone] [place] [address] Surgeon Colon and Rectal Surgery 11/23/22 documented as of this encounter
--- OUTSIDE RECORDS SUMMARY | 2024-10-05 02:50 | XMS_ITS | Encounter Summary ---
Author Organization [facility] Healthcare Address [address] [place] [address] Care Team Providers Care Sorter Upholstery Parts Name Role Phone Gianluca Price MD Primary Care Provider ChloeAyden DO Unavailable [phone] Roberto Medley MD Unavailable [phone] Reason for Visit * Auth/Cert (Routine) Specialty Diagnoses / Procedures Referred By Contac t Referred To Contact Diagnoses Non-healing surgical wound, sequela Non-healing surgical wound, sequela [T81.89XS] Procedures OH ANRCT XM SURG REQ ANES GENERAL SPI/EDRL DX OH INCISION & DRAINAGE ABSCESS COMPLICATED/MULTIPLE EXAM UNDER ANESTHESIA - RECTUM UNROOFING ANAL SINUS Referral ID Status Reason Start Date Expiration Date Visits Re quested Visits Authorized [id number] 1 1 Encounter Details Date Type Department Care Team (Late st Contact Info) Description 11/22/2023 11:00 AM PRODUCTION SOUND MIXER - 11/22/2023 11:30 AM PRODUCTION SOUND MIXER Surgery [facility] [address] [place] [address] Roberto Medley MD [address] [facility] [phone] [place] [address] EXAM UNDER ANESTHESIA - RECTUM with mushroom drain placement Surgery Details Date/Time Status Location OR Service Patient Class Case Cl ass Case Type Trauma Case? 11/22/2023 11:00 AM Posted [facility] Operating Room [place] OR 2 Colorectal Outpatient Elective Panel 1 Procedure LRB Anes Op Region Wound Class Comments EXAM UNDER ANESTHESIA - RECTUM with mushroom drain placement N/A Monitor Anesthesia Care Anus Class IV - Dirty or Infected Surgeon Surgeon Role Service Panel Roberto Medley MD Primary Colorectal 1 Sandeep Bueno MD Fellow Colorectal 1 [...] containing alc ohol? 2-4 times a month 11/22/2023 Q2: How many drinks containi ng alcohol do you have on a typical day when you are drinking? 1 or 2 11/22/2023 Q3: How often do you have si x or more drinks on one occasion? Never 11/22/2023 PHQ-2 Answer Date Recorded PHQ-2 Total Score (If total score is 3 or more points, staff should administer the PHQ-9) 2 06/07/2020 Personal Safety Answer Date Recorded Have you ever been in or are you currently in a harmful physical or emotional relationship or is someone making you feel afraid or unsafe? Denies 11/22/2023 Sex and Gender Information Value Date Recorded Sex Assigned at Not on file Legal Sex Male 3:11 AM PRODUCTION SOUND MIXER Gender Identity Not on file Sexual Orientation Not on file Occupation Industry Job Start Date Job End Date Retired Not on file Not on file Not on file documented as of this encounter Last Filed Vital Signs Vital Sign Reading Time Taken Comments Blood Pressure 102/83 11/22/2023 9:57 AM PRODUCTION SOUND MIXER Pulse 78 11/22/2023 9:57 AM PRODUCTION SOUND MIXER Temperature 36.2 ??C (97.2 ??F) 11/22/2023 9:[address] Respiratory Rate 18 11/22/2023 9:57 AM PRODUCTION SOUND MIXER Oxygen Saturation 96% 11/22/2023 9:57 AM PRODUCTION SOUND MIXER Inhaled Oxygen Concentration - - Weight 153.3 kg (338 lb) 11/22/2023 9:57 AM PRODUCTION SOUND MIXER Height 195.6 cm (6' 5 ) 11/22/2023 9:57 AM PRODUCTION SOUND MIXER Body Mass Index 40.08 11/22/2023 9:57 AM PRODUCTION SOUND MIXER documented in this encounter Discharge Instructions * Discharge Instructions* Sandeep Bueno MD - 11/22/2023 11:43 AM PRODUCTION SOUND MIXER COLON AND RECTAL SURGERY Post-Operative Instructions for Outpatient Procedure Pain Some pain is to be expected after a procedure. We recommend alternating between Tylenol 1000mg OR Ibuprofen 600mg every 4 hours and using the prescribed narcotics for any breakthrough pain. Heat or ice may also be used to provide relief, but be careful not to burn yourself as this area is numb. Make sure to take pain medication with food. Sitz baths/warm tub soaks can be used 3 times daily or as needed. If prescribed Percocet, [place], Tylenol #3, or any agent containing acetaminophen [...] an appointment to have it cut back. Call Your Surgeon???s Office for All Questions and Concerns Office: [phone] (Saturday - Saturday, 8am to 4pm) Exchange: [phone] (after hours, holidays and weekends) UCTION SOUND MIXER * Attachments The following attachments cannot be sent through Care Everywhere. * [facility] PATHWAY TO EXCELLENT CARE AFTER SURGERY documented in this encounter Medications at Time of Discharge acetaminophen (TYLENOL) 500 mg tablet Take 2 tablets (1,000 mg total) by mouth every 6 (six) hours as needed for pain allopurinol (ZYLOPRIM) 300 mg tabletIndication s:prevention of acute gout attack Take 1 tablet (300 mg total) by mouth nightly 06/01/2018 cholecalciferol (VITAMIN D-3) 66076 unit capsuleIndicatio ns:supplement Take 1 capsule (10,000 Units total) by mouth jewelry sales coordinator before breakfast multivitamin capsuleIndicatio ns:Vitamin Deficiency Prevention Take 1 capsule by mouth jewelry sales coordinator before breakfast apixaban (ELIQUIS) 5 mg tablet Take 1 tablet (5 mg total) by mouth 2 (two) times a day 60 tablet 3 07/06/2020 4 atorvastatin (LIPITOR) 80 mg tabletIndication s:hyperlipidemia Take 1 tablet (80 mg total) by mouth jewelry sales coordinator before breakfast 90 tablet 3 11/18/2023 4 carvediloL (COREG) 6.25 mg tablet Take 1 tablet (6.25 mg total) by mouth 2 (two) times a day with meals 200 tablet 2 11/18/2023 4 clopidogreL (PLAVIX) 75 mg tabletIndication s:stent placed 2019 Take 1 tablet (75 mg total) by mouth every morning 90 tablet 3 11/18/2023 4 dapagliflozin (FARXIGA) 10 mg tablet Take 1 tablet (10 mg total) by mouth daily 14 tablet 06/21/2022 4 furosemide (LASIX) 80 mg tablet Take 1 tablet (80 mg total) by mouth daily 100 tablet 2 11/18/2023 4 nitroglycerin (NITROSTAT) 0.[address] 1 tablet (0.4 mg total) under the tongue every 5 (five) minutes as needed for chest pain (prn) 25 tablet 2 06/21/2022 4 potassium chloride ER 20 mEq CR tablet TAKE 1 TABLET BY MOUTH TWICE DAILY 200 tablet 2 10/01/2023 4 sacubitriL-valsa rtan (ENTRESTO) 24-26 mg tablet Take 1 tablet by mouth 2 (two) times a day 180 tablet 3 05/16/2023 4 documented as of this encounter Discharge Disposition Disposition Code Departure Means Destination Comment s Discharge to home or self care documented in this encounter H&P Notes * Sandeep Bueno MD - 11/22/2023 9:32 AM CST I have reviewed the H&P, examined the patient, and endorse the findings as written. Plan of Care : Based on the above findings, I consider Du Anderson to be an acceptable risk for : Procedure(s): EXAM UNDER ANESTHESIA - RECTUM UNROOFING ANAL SINUS Cosigned by Roberto Medley MD at 11/22/2023 11:08 AM PRODUCTION SOUND MIXER UCTION SOUND MIXER UCTION SOUND MIXER Source Note - Roberto Medley MD - 11/08/2023 12:45 PM PRODUCTION SOUND MIXER Established Patient Follow-up Visit Interval History: The [...] created in part with the assistance of [employer] voice recognition software. Section 8 Property Manager variances and error may occur. Not every sentence has been reviewed in its entirety. For questions about the documentation above, please contact Dr. Medley. UCTION SOUND MIXER documented in this encounter Miscellaneous Notes * Perioperative Nursing Note - Natacha Rae RN - 11/22/2023 11:40 AM PRODUCTION SOUND MIXER 4x4 gauze and tape applied post op UCTION SOUND MIXER * Op Note - Roberto Medley MD - 11/22/2023 11:24 AM CST SURGICAL TEAM Surgeon(s) and Role: * Roberto Medley MD - Primary * Sandeep Bueno MD - Fellow ANESTHESIA: Monitor Anesthesia Care PREOPERATIVE DIAGNOSIS (ES): Perianal sinus POSTOPERATIVE DIAGNOSIS (ES): High supra levator fistula NAME OF OPERATION: Exam under anesthesia and drain placement INDICATIONS FOR PROCEDURE: The patient is a 67 y.o. 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 He has a persistent sinus. He comes to the operating room in an attempt at treatment. FINDINGS: We identified a fistula to the mid rectum, we were unable to visualize the internal opening but we could palpate it in the right lateral mid rectum. DESCRIPTION OF PROCEDURE: The patient was brought the operating room, placed under MAC anesthesia in the prone jose-knife position. The perineum was prepped and draped in normal sterile fashion and anesthetized with 40 mL of 0.25% Marcaine. A detailed digital rectal exam was performed which was unremarkable. An anoscope was placed in the anal canal.The old internal opening could be seen in the posterior midline. We injected the right-sided sinus with hydrogen peroxide and no peroxide came out of the old internal opening. After some injection, peroxide came from the proximal rectum. We were unable to actually visualize the internal opening because it was so high. We passed a probe through the fistula tract and were able to introduce it into the rectum. We could not thread a seton through this tract because it was too long. The decision wasmade to just drain the fistula externally. The only possible way to fix this would be with a TEM closure of the internal opening. We will discuss this with him in the office at some point. Estimated Blood Loss: None IV Fluids: See Anesthesia records Sponge, Instrument and Needle counts: Correct times two Presence statement: I was present for the entire procedure from start to finish UCTION SOUND MIXER * Pre-Procedure Instructions - Toya Menon NP - 11/14/2023 2:10 PM CST [facility] CPAP Clinic Location: [facility] The night before your surgery: * Do [...] home and/or stay with you after surgery If you have Sleep Apnea (PHILLIP): * For a few days after your surgery, you will need to wear your CPAP/ BiPAP/VPAP machine any time your are sleeping. This includes when you take a nap. Instructions For Your Medications: Pre-Surgery Instructions: Medication Instructions acetaminophen (TYLENOL) 500 mg tablet Take on day of surgery if needed allopurinol (ZYLOPRIM) 300 mg tablet Take night prior to procedure per usual schedule apixaban (ELIQUIS) 5 mg tablet Per surgeon instructions atorvastatin (LIPITOR) 80 mg tablet Take morning of surgery carvediloL (COREG) 6.25 mg tablet Take morning of surgery cholecalciferol (VITAMIN D-3) 17672 unit capsule Don't take on day of surgery clopidogreL (PLAVIX) 75 mg tablet Per surgeon instructions dapagliflozin (FARXIGA) 10 mg tablet Don't take on day of surgery furosemide (LASIX) 80 mg tablet Don't take on day of surgery multivitamin capsule Don't take on day of surgery nitroglycerin (NITROSTAT) 0.4 mg SL tablet Take on day of surgery if needed oxyCODONE (ROXICODONE) 5 mg immediate release tablet Take on day of surgery if needed potassium chloride ER 20 mEq CR tablet Don't take on day of surgery sacubitriL-valsartan (ENTRESTO) 24-26 mg tablet Take morning of surgery aspirin 81 mg enteric coated tablet States not taking yet will start after completion of Plavix RX Your surgeon will tell you IF YOU SHOULD STOP the following medications and WHEN TO STOP taking them. Do not stop taking them on your own without being told to do so: Eliquis and Plavix General Instructions For Medications: * Stop all [...] E, Herbal medicines, Diet Pills If you have pain, you may take [...] with COVID-19. You test positive for COVID-19. UCTION SOUND MIXER * Perioperative Nursing Note - Desi Donald RN - 11/11/2023 2:43 PM CST [facility] Perioperative Nursing Note Telephone Preoperative Evaluation ([facility]) - TELEPHONE ONLY, NO PHYSICAL EXAM Date: 11/11/23 This assessment was completed with the patient. Vitals: 11/11/23 1411 Weight: (!) 153.3 kg (338 lb) Height: 195.6 cm (6' 5 ) Social History Tobacco Use Smoking Status Never Passive exposure: Never Smokeless Tobacco Never Substance and Sexual Activity Drug Use Never Alcohol Use Q1: How often do you have a drink containing alcohol?: 2-4 times a month Q2: How many drinks containing alcohol do you have on a typical day when you are drinking?: 1 or 2 Q3: How often do you have six or more drinks on one occasion?: Never Outpatient Medications Marked as Taking for the 11/22/23 encounter (Hospital Encounter) Medication Sig Dispense Refill [...] 1 tablet (80 mg total) by mouth jewelry sales coordinator before breakfast 90 tablet 3 carvediloL (COREG) 6.25 mg tablet TAKE 1 TABLET BY MOUTH TWICE DAILY WITH MEALS (Patient taking differently: Take 1 tablet (6.25 mg total) by mouth 2 (two) times a day with meals) 200 tablet 2 cholecalciferol (VITAMIN D-3) 99655 unit capsule Take 1 capsule (10,000 Units total) by mouth earlymorning before breakfast clopidogreL (PLAVIX) 75 mg tablet Take 1 tablet (75 mg total) by mouth every morning dapagliflozin (FARXIGA) 10 mg tablet Take 1 tablet (10 mg total) by mouth daily (Patient taking differently: Take 1 tablet (10 mg total) by mouth jewelry sales coordinator before breakfast) 14 tablet 0 furosemide (LASIX) 80 mg tablet TAKE 1 TABLET BY MOUTH DAILY (Patient taking differently: Take 1 tablet (80 mg total) by mouth jewelry sales coordinator before breakfast) 100 tablet 2 multivitamin capsule Take 1 capsule by mouth jewelry sales coordinator before breakfast nitroglycerin (NITROSTAT) 0.[address] 1 tablet (0.4 mg total) under the tongue every 5 (five) minutes as needed for chest pain (prn) 25 tablet 2 oxyCODONE (ROXICODONE) 5 mg immediate release tablet Take 1 tablet (5 mg total) by mouth every 6 (six) hours as needed for pain 5 tablet 0 potassium chloride ER 20 mEq CR tablet TAKE 1 TABLET BY MOUTH TWICE DAILY 200 tablet 2 sacubitriL-valsartan (ENTRESTO) 24-26 mg tablet Take 1 tablet by mouth 2 (two) times a day (Patienttaking differently: Take 1 tablet by mouth 2 (two) times a day) 180 tablet 3 Implants Stent [employer] Synergy Xd 4mm 48mm System Coronary Stent Everolimus [id number] - [id number] - [id number] - Implanted (Right) Coronary Artery Inventory item: MD-IT SYNERGY XD 4MM 48MM SYSTEM CORONARY STENT EVEROLIMUS [id number] Model/Cat number: [id number] Serial number: [id number] 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: [employer] Lot number: [id number] As of 04/25/2022 Status: Implanted SKIN Piercings Remaining: No Wound (LDAs) Type of Wound (LDA): (denies) SCREENINGS Dawson index score: 100 NUTRITION PATIENT CARE PLANNING Advance Directives (For Healthcare) Advance Directive: Patient does not have advance directive Communication/Mill Oiler Needs Communication Barriers: Visual Communication Needs: Glasses Assistive Devices/DME: Eyeglasses, CPAP/BiPAP, Cane, Motorized scooter Discharge Planning Type of Residence: Private residence Living Arrangements: Spouse/significant other Support Systems: Spouse/significant other Patient expects to be discharged to:: Private residence PAID SEARCH ANALYST NO ADDITIONAL COMMENTS/ FOLLOW UP UCTION SOUND MIXER * Pre-Procedure Instructions - Desi Donald RN - 11/11/2023 2:15 PM CST [facility] (CPAP) [...] remove nail coverings, artificial nails and nail ku[place]i prior to the day of surgery. You should leave your valuables and any jewelry at home. No metal or piercings are allowed in the operating room. You should bring your insurance card, a photo ID (example: Facilities Assistant's License) and a method of payment for [...] Pathway to Excellent Care by the followinglink: [email or web address] How To Prepare Your Skin For Surgery [...] Remove nail coverings, artificial nails and nail kuwaiti. Place clean linens on your bed the [...] questions, please call the CPAP Staff at [phone], Saturday-Saturday 8am-4:30pm. All patients should read the below section: COVID 19 Updates & Visitor Policy: Please access [email or web address] for the most updated information. Information on [facility]: Please view [email or web address] (Patient & Visitor Information) for additional details regarding Advanced Directive forms, AWARE, directions, parking information, lodging, Internet access, dining and more. Information on [facility] or [facility] [place] ([facility]): Please view [email or web address] (Patient and Visitor Information) for parking/directions and more. For MyChart information, to activate account or password recovery, please go to [email or web address] or call [phone] (toll-free: [phone]), Sat- Saturday 8am-5pm. Information for Suicide Prevention: National Suicide Prevention Lifeline (2-239- 284-XQJJ (4175)) or call or text 290. Chat resources: [facility] [facility]. Surgery Times: For patients having surgery @ [facility] or [facility] [place] ([facility]), if your surgeon's office has not notified you of your surgery time by NOON THE BUSINESS DAY BEFORE your surgery, please call [phone] and ask for your surgeon's office [facility] ([facility]) does not provide arrival times for the day of surgery or provide the duration of surgery. This information is provided by your surgeon'soffice or by the center where you are having surgery. We appreciate your understanding. UCTION SOUND MIXER documented in this encounter Plan of Treatment Not on file documented as of this encounter Procedures Procedure Name Priority Date/Time Associated Diagnosis Comments EXAM UNDER ANESTHESIA - RECTUM 11/22/2023 11:18 AM PRODUCTION SOUND MIXER Non-healing surgical wound, sequela documented in this encounter Visit Diagnoses Diagnosis Surgical wound, non healing- Primary Non-healing surgical wound Non-healing surgical wound, sequela documented in this encounter Admitting Diagnoses Diagnosis Surgical wound, non healing Non-healing surgical wound documented in this encounter Administered Medications Inactive Administered Medications - up to 3 most recent administrations Medication Order MAR Action Action Date Dose Rate Site acetaminophen (TYLENOL) tablet 1,000 mg 1,000 mg, oral, Once, On Sat11/22/23 at 1015, For 1 dose, Pre-Op, Indications: Pre-Emptive AnalgesiaIndications:Pre- Emptive Analgesia Given 11/22/2023 10:04 AM PRODUCTION SOUND MIXER 1,000 mg BUPivacaine (MARCAINE) 0.25 % (2.5 mg/mL) preservative free injection As needed, Starting on Sat11/22/23 at 1124, Intra-Op Given 11/22/2023 11:24 AM PRODUCTION SOUND MIXER 40 mL Surgical Site Carrier Fluids for Secondary Infusion - 0.9% Sodium Chloride 30 mL, intravenous, As needed, For priming tubing and/or flushing, Starting on Sat11/22/23 at 0943, Pre-Op, 0-250 ml/hr to flush line after IV infusions when no maintenance IV ordered. Infuse 30mL at the same rate as the secondary infusion. Run as primary IV, not intended for KVO. famotidine (PEPCID) tablet 20 mg 20 mg, oral, Once, On Sat11/22/23 at 1015, For 1 dose, Pre-Op, Please give in pre-op. Thanks!, Indications: gastroesophageal reflux diseaseIndications:gastro esophageal reflux disease Given 11/22/2023 10:04 AM PRODUCTION SOUND MIXER 20 mg Lactated Ringer's (LR) infusion 30 mL/hr, intravenous, Continuous, Starting on Sat11/22/23 at 1015, Pre-Op Lactated Ringer's (LR) infusion 30 mL/hr, intravenous, Continuous, Starting on Sat11/22/23 at 1015, Pre-Op Rate/Dose Change 11/22/2023 11:20 AM PRODUCTION SOUND MIXER 30 mL/hr Rate/Dose Verify 11/22/2023 11:18 AM PRODUCTION SOUND MIXER 30 mL/ hr New Bag 11/22/2023 10:06 AM PRODUCTION SOUND MIXER 30 mL/hr 30 mL/hr sodium chloride 0.9% flush 0.5-20 mL 0.5-20 mL, intra-catheter, As needed, line care, Starting on Sat11/22/23 at 0943, Pre-Op, Flush volume based on line type and size. Flush before and after each use. sodium chloride 0.9% irrigation As needed, Starting on Sat11/22/23 at 1113, Intra-Op Given 11/22/2023 11:13 AM PRODUCTION SOUND MIXER 500 mL Surgical Site sterile water irrigation As needed, Starting on Sat11/22/23 at 1114, Intra-Op Given 11/22/2023 11:14 AM PRODUCTION SOUND MIXER 500 mL Other (Comment) documented in this encounter Discontinued Medications Medication Sig Discontinue Reason Start Date End Da te amoxicillin 500 mg capsule Take by mouth as needed (dental procedure) Therapy completed 01/25/2023 11/11/2023 apixaban (ELIQUIS) 5 mg tablet Take 1 tablet (5 mg total) by mouth 2 (two) times a day for 28 days Therapy completed 11/05/2023 11/11/2023 dapagliflozin propanediol (FARXIGA) 10 mg tablet Take 1 tablet (10 mg total) by mouth daily for 28 days Therapy completed 11/05/2023 11/11/2023 sacubitriL-valsartan (ENTRESTO) 24-26 mg tabletIndications:chron ic heart failure Take 1 tablet by mouth 2 (two) times a day for 28 days Therapy completed 11/05/2023 11/11/2023 polyethylene glycol (MIRALAX) 17 gram/dose powder Take 17 g by mouth daily for 14 days Therapy completed 04/26/2023 11/11/2023 oxyCODONE (ROXICODONE) 5 mg immediate release tabletIndications:Pain Take 1 tablet (5 mg total) by mouth every 6 (six) hours as needed for pain Stop Taking at Discharge 04/26/2023 11/22/2023 aspirin 81 mg enteric coated tablet Take 1 tablet (81 mg total) by mouth daily Stop Taking at Discharge 05/30/2023 11/22/2023 documented as of this encounter Historical Medications * This list may reflect changes made after this encounter. acetaminophen (TYLENOL) 500 mg tablet Take 2 tablets (1,000 mg total) by mouth every 6 (six) hours as needed for pain added in this encounter Active and Recently Administered Medications Times are shown in PRODUCTION SOUND MIXER. Scheduled Medication Order 11/20/2023 11/21/2023 11/22/2023 acetaminophen (TYLENOL) tablet 1,000 mg (COMPLETED) 1,000 mg, oral, Once, On Sat11/22/23 at 1015, For 1 dose, Pre-Op, Indications: Pre-Emptive Analgesia 1004 (Given - Provid er: Gem Baez RN) famotidine (PEPCID) tablet 20 mg (COMPLETED) 20 mg, oral, Once, On Sat11/22/23 at 1015, For 1 dose, Pre-Op, Please give in pre-op. Thanks!, Indications: gastroesophageal reflux disease 1004 (Given - Provid er: Gem Baez RN) sodium chloride 0.9% flush 0.5-20 mL 0.5-20 mL, intra-catheter, Every 8 hours scheduled, First dose on Sat11/22/23 at 1400, Pre-Op, Flush volume based on line type and size. Continuous Medication Order 11/20/2023 11/21/2023 11/22/2023 Lactated Ringer's (LR) infusion 30 mL/hr, intravenous, Continuous, Starting on Sat11/22/23 at 1015, Pre-Op 1015 (Due) Lactated Ringer's (LR) infusion 30 mL/hr, intravenous, Continuous, Starting on Sat11/22/23 at 1015, Pre-Op 1006 (New Bag - Prov ider: Gem Baez RN)1118 (Rate/Dose Verify - Provider: Kar Wilson CRNA)1120 (Rate/Dose Change - Provider: Kar Wilson CRNA)1656 (Due: Stopped) PRN Medication Order 11/20/2023 11/21/2023 11/22/2023 BUPivacaine (MARCAINE) 0.25 % (2.5 mg/mL) preservative free injection (CANCELED) As needed, Starting on Sat11/22/23 at 1124, Intra-Op 1124 (Given - Provid er: Roberto Medley MD) Carrier Fluids for Secondary Infusion - 0.9% Sodium Chloride 30 mL, intravenous, As needed, For priming tubing and/or flushing, Starting on Sat11/22/23 at 0943, Pre-Op, 0-250 ml/hr to flush line after IV infusions when no maintenance IV ordered. Infuse 30mL at the same rate as the secondary infusion. Run as primary IV, not intended for KVO. fentaNYL (SUBLIMAZE) preservative free syringe 50 mcg 50 mcg, intravenous, Once as needed, uncontrolled pain on PACU admission, Starting on Sat11/22/23 at 1147, For 1 dose, Phase I, Then proceed to PACU 1st line analgesic., Indications: Pain hydrALAZINE (APRESOLINE) injection 5 mg 5 mg, intravenous, Administer over 2 Minutes, Every 15 min PRN, high blood pressure, Starting on Sat11/22/23 at 1147, Phase I, Max cumulative dose 20 mg. Dose if systolic BP greater than 180 AND heart rate less than 70., Indications: hypertension HYDROmorphone (DILAUDID) injection 0.2 mg 0.2 mg, intravenous, Administer over 2 Minutes, Every 10 min PRN, 1st line for pain, Starting on Sat11/22/23 at 1147, Phase I, Switch to 2nd line analgesic order if pain is uncontrolled or increasing after 2 doses. Notify Anesthesiologist if total PACU dose reaches 2 mg and pain score 5/10 or more., Indications: Pain HYDROmorphone (DILAUDID) injection 0.4 mg 0.4 mg, intravenous, Administer over 2 Minutes, Every 10 min PRN, 2nd line for pain, Starting on Sat11/22/23 at 1147, Phase I, May administer 10 mintes after 2nd dose of 1st line analgesic agent for uncontrolled or increasing pain. Revert to 1st line dose if POSS of 3. Notify Anesthesiologist if total PACU dose reaches 2 mg and pain score 5/10 or more., Indications: Pain labetaloL (NORMODYNE,TRANDATE) injection 5 mg 5 mg, intravenous, at 30 mL/hr, Administer over 2 Minutes, Every 10 min PRN, high blood pressure, Starting on Sat11/22/23 at 1147, Phase I, Max cumulative dose 20 mg. Dose if systolic blood pressure greater than 180 AND HR greater than 70. lidocaine PF (XYLOCAINE) 10 mg/mL (1 %) preservative free injection 2-10 mg 2-10 mg (0.2-1 mL), other, Once as needed, pain with IV placement, Starting on Sat11/22/23 at 0943, For 1 dose, Pre-Op, Administer volume needed to infiltrate IV site. naloxone (NARCAN) 0.4 mg/mL injection 0.04-0.4 mg 0.04-0.4 mg, intravenous, Once as needed, other, excessive sedation/respiratory depression, Starting on Sat11/22/23 at 1147, For 1 dose, Phase I, Dilute 0.4 [...] Once as needed, nausea, vomiting, Starting on Sat11/22/23 at 1147, For 1 dose, Phase I, Proceed to prochlorperazine if ondansetron has been given within the last 6 hours. oxyCODONE (ROXICODONE) tablet 5 mg 5 mg, oral, Once as needed, 1st line for pain, Starting on Sat11/22/23 at 1147, For 1 dose, Phase I, When able to tolerate PO. May repeat in 1 hour if pain is uncontrolled or increasing after 1st dose., Indications: Pain prochlorperazine (COMPAZINE) injection 5 mg 5 mg, intravenous, Administer over 2 Minutes, Once as needed, nausea, vomiting, Starting on Sat11/22/23 at 1147, For 1 dose, Phase I, If nausea/vomiting not relieved by ondansetron within 30 minutes or if ondansetron has been given within the last 6 hours. sodium chloride 0.9% flush 0.5-20 mL 0.5-20 mL, intra-catheter, As needed, line care, Starting on Sat11/22/23 at 0943, Pre-Op, Flush volume based on line type and size. Flush before and after each use. sodium chloride 0.9% flush 0.5-20 mL 0.5-20 mL, intra-catheter, As needed, line care, Starting on Sat11/22/23 at 0943, Pre-Op, Flush volume based on line type and size. Flush before and after each use. sodium chloride 0.9% irrigation (CANCELED) As needed, Starting on Sat11/22/23 at 1113, Intra-Op 1113 (Given - Provid er: Roberto Medley MD) sterile water irrigation (CANCELED) As needed, Starting on Sat11/22/23 at 1114, Intra-Op 1114 (Given - Provid er: Roberto Medley MD - Comment: used as an instrument rinse) documented in this encounter Orders Medications Ordered That Laith ht Not Have Been Administered Count Last Ordered Date First Ordered Date Carrier Fluids for Secondary Infusion - 0.9% Sodium Chloride 1 11/22/2023 fentaNYL (SUBLIMAZE) preserv ative free syringe 50 mcg 1 11/22/2023 hydrALAZINE (APRESOLINE) injection 5 mg 1 0 11/22/2023 HYDROmorphone (DILAUDID) injection 0.2 mg 1 11/22/2023 HYDROmorphone (DILAUDID) injection 0.4 mg 1 11/22/2023 labetaloL (NORMODYNE,TRANDAT E) injection 5 mg 1 11/22/2023 Lactated Ringer's (LR) infusion 1 lidocaine PF (XYLOCAINE) 10 mg/mL (1 %) preservative free injection 2-10 mg 1 11/22/2023 naloxone (NARCAN) 0.4 mg/mL injection 0.04-0.4 mg 1 11/22/2023 ondansetron (ZOFRAN) injection 4 mg 1 11/22 oxyCODONE (ROXICODONE) tablet 5 mg 1 2023 prochlorperazine (COMPAZINE) injection 5 mg 1 11/22/2023 sodium chloride 0.9% flush 0.5-20 mL 3 11/07 documented in this encounter Care Teams Sorter Upholstery Parts Relationship Specialty Start Date End Date Gianluca Price MD PCP - General 06/18/17 Ayden Corona DO [address] [facility] [address] [place] [address] Referring Physician Surgery 10/29/22 Roberto Medley MD [address] [facility] [phone] [place] [address] Surgeon Colon and Rectal Surgery 11/23/22 documented as of this encounter
--- OUTSIDE RECORDS SUMMARY | 2024-10-05 02:50 | XMS_ITS | Encounter Summary ---
Author Organization [facility] Address [address] [place] [address] Phone Care Team Providers Care Accountant Systems Name Role Phone Gianluca Price MD Primary Care Provider Ayden Corona DO Unavailable [phone] Roberto Medley MD Unavailable [phone] Reason for Visit * Reason Comments Post-op Visit Perianal sinus Encounter Details Date Type Department Care Team (Late st Contact Info) Description 05/03/2023 12:45 PM CDT Office Visit [facility] Surgery [address] [place] [address] Roberto Medley MD [address] 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 Gender Identity Not on file Sexual Orientation Not on file Occupation Industry Job Start Date Job End Date Retired Not on file Not on file Not on file documented as of this encounter Last Filed Vital Signs Vital Sign Reading Time Taken Comments Blood Pressure 129/71 05/03/2023 12:20 PM CDT Pulse 98 05/03/2023 12:20 PM CDT Temperature 36.5 ??C (97.7 ??F) 05/03/2023 12:20 PM C DT Respiratory Rate - - Oxygen Saturation 95% 05/03/2023 12:20 PM CDT Inhaled Oxygen Concentration - - Weight 163.5 kg (360 lb 8 oz) 05/03/2023 12:20 P M CDT Height 195.6 cm (6' 5 ) 05/03/2023 12:20 PM CDT Body Mass Index 42.75 05/03/2023 12:20 PM CDT documented in this encounter Progress Notes * Roberto Medley MD - 05/03/2023 12:45 PM CDT Colorectal Post-operative Visit Patient ID: Du Anderson is a 67 y.o. male who is a week out from an exam under anesthesia. He has a paul anal sinus that is likely a fistula but we have not been able to demonstrate an internal opening on exams. We placed a drain in the sinus with the plan to leave it in for at least 3-4 months.The drain fell out this week. Physical Exam: On exam, he has the sinus. We were able to replace a 16 Dutch drain in the office. We secured to the skin with multiple nylon sutures. I am going to see him back in two months. He knows to call us if the drain falls out. Assessment and Plan: Mr. Anderson has drain in this sinus. I want to leave it in at least 3-4 months if not longer. I will see him back in two months. 05/03/2023 Roberto Medley MD This note was created in part with the assistance of [email or web address] voice recognition software. Segmental Paving Supervisor variances and error may occur. Not every sentence has been reviewed in its entirety. For questions about the documentation above, please contact Dr. Medley. documented in this encounter Plan of Treatment Not on file documented as of this encounter Visit Diagnoses Diagnosis Anal fistula- Primary documented in this encounter Care Teams Accountant Systems Relationship Specialty Start Date End Date Gianluca Price MD PCP - General 06/18/17 Ayden Corona DO [address] [facility] [address] [place] [address] Referring Physician Surgery 10/29/22 Roberto Medley MD [phone] [place] [address] Surgeon Colon and Rectal Surgery 11/23/22 documented as of this encounter
--- OUTSIDE RECORDS SUMMARY | 2024-10-05 02:50 | XMS_ITS | Encounter Summary ---
Author Organization [facility] Address [address] [place] [address] Phone Care Team Providers Care Financial Sales Advisor Name Role Phone Gianluca Price MD Primary Care Provider Ayden Corona DO Unavailable [phone] Roberto Medley MD Unavailable Encounter Details Date Type Department Care Team (Latest Contact Info) Description 05/30/2023 10:15 AM CDT Office Visit [facility] Cardiology [address] [place] [address] Ari Bradley MD [address] [facility] [place] [address] Coronary artery disease involving cantwell coronary artery of cantwell heart without angina pectoris (Primary Dx); Mixed hyperlipidemia Social History Tobacco Use Types [...] on file 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 Gender Identity Not on file Sexual Orientation Not on file Occupation Industry Job Start Date Job End Date Retired Not on file Not on file Not on file documented as of this encounter Last Filed Vital Signs Vital Sign Reading Time Taken Comments Blood Pressure 120/84 05/30/2023 10:07 AM CDT Pulse 94 05/30/2023 10:07 AM CDT Temperature 36.2 ??C (97.2 ??F) 05/30/2023 1 0:07 AM CDT Respiratory Rate - - Oxygen Saturation 99% 05/30/2023 10: 07 AM CDT Inhaled Oxygen Concentration - - Weight 164.1 kg (361 lb 11.2 oz) 2022 10:07 AM CDT Height 195.6 cm (6' 5 ) 05/30/2023 10:0 7 AM CDT Body Mass Index 42.89 05/30/2023 10:07 AM CDT documented in this encounter Patient Instructions * Patient Instructions* Sydney Nunez RN - 05/30/2023 10:15 AM CDT Stop Plavix Start Aspirin 81 mg a day Return in 6 months documented in this encounter Ordered Prescriptions Prescription Sig Dispense Quantity Refills Last Filled Start Date End Date aspirin 81 mg enteric coated tablet Take 1 tablet (81 mg total) by mouth daily 30 tablet 11 05/30/2023 11/22/2023 documented in this encounter Progress Notes * Ari Bradley MD - 05/30/2023 10:15 AM CDT 05/30/2023 Cardiology Consult Patient's Name: Du Anderson : 1955 [place]: 05/30/2023 PRINCIPAL AND SECONDARY DIAGNOSES: 1. Complex coronary [...] 75. INTERVAL HISTORY: Du Anderson is a 67 y.o. male who returns for follow-up. He is doing well. He had a stenting of his ostial LAD, ostial ramus, and ostial circumflex in the past. He had a PCI of RCA on 04/25/2022. He continues to do well. He returns for follow-up. His shortness of breath improved. No chest pain noted.. In fact chest pain was never was his main symptoms. He denies any leg swelling.No history of COV-19 infection noted. He had LV dysfunction and moderate to severe central mitral regurgitation based on echocardiogram done in October 2019. His echo on 04/06/2022 showed LVEF 44% with mild MR only. REVIEW OF SYMPTOMS: All systems were reviewed and were negative except those stated above. MEDICATIONS: Current Outpatient Medications on File Prior to Visit Medication Sig Dispense Refill allopurinol (ZYLOPRIM) 300 mg tablet Take 1 tablet (300 mg total) by mouth nightly amoxicillin 500 mg capsule Take by mouth as needed (dental procedure) apixaban (ELIQUIS) 5 mg tablet Take 1 tablet (5 mg total) by mouth 2 (two) times a day (Patient taking differently: Take 1 tablet (5 mg total) by mouth 2 (two) times a day) 60 tablet 3 atorvastatin (LIPITOR) 80 mg tablet Take 1 tablet (80 mg total) by mouth contract project manager before breakfast 90 tablet 3 carvediloL (COREG) 6.25 mg tablet TAKE 1 TABLET BY MOUTH TWICE DAILY WITH MEALS (Patient taking differently: Take 1 tablet (6.25 mg total) by mouth 2 (two) times a day with meals) 200 tablet 2 cholecalciferol (VITAMIN D-3) 67792 unit capsule Take 1 capsule (10,000 Units total) by mouth earlymorning before breakfast clopidogreL (PLAVIX) 75 mg tablet TAKE 1 TABLET BY MOUTH DAILY (Patient taking differently: Take 1 tablet (75 mg total) by mouth contract project manager before breakfast) 90 tablet 3 dapagliflozin (FARXIGA) 10 mg tablet Take 1 tablet (10 mg total) by mouth daily (Patient taking differently: Take 1 tablet (10 mg total) by mouth contract project manager before breakfast) 14 tablet 0 furosemide (LASIX) 80 mg tablet TAKE 1 TABLET BY MOUTH DAILY (Patient taking differently: Take 1 tablet (80 mg total) by mouth contract project manager before breakfast) 100 tablet 2 multivitamin capsule Take 1 capsule by mouth contract project manager before breakfast nitroglycerin (NITROSTAT) 0.[address] 1 tablet (0.4 mg total) under the tongue every 5 (five) minutes as needed for chest pain (prn) 25 tablet 2 oxyCODONE (ROXICODONE) 5 mg immediate release tablet Take 1 tablet (5 mg total) by mouth every 6 (six) hours as needed for pain 5 tablet 0 polyethylene glycol (MIRALAX) 17 gram/dose powder Take 17 g by mouth daily for 14 days 238 g 0 potassium chloride ER 20 mEq CR tablet Take 1 tablet (20 mEq total) by mouth 2 (two) times a day (Patient taking differently: Take 1 tablet (20 mEq total) by mouth 2 (two) times a day) 180 tablet 3 sacubitriL-valsartan (ENTRESTO) 24-26 mg tablet Take 1 tablet by mouth 2 (two) times a day 180 tablet 3 No current facility-administered medications on file prior to visit. PHYSICAL EXAM: Blood pressure 120/84, pulse 94, temperature 36.2 ??C (97.2 ??F), height 195.6 cm (6' 5 ), weight (!) 164.1 kg (361 lb 11.2 oz), SpO2 99 %. GEN: pleasant in NAD; alert, comfortable HENT: NCAT, MMM, anicteric Neck: no trauma, no JVD CVS: RRR, S1S2, no rubs/murmurs/gallops PULM: non-labored, CTAB, good inspiratory effort ABD: soft, not tender to palpation EXT: equal radial pulses, no edema Neuro: motor and sensation grossly intact Skin: warm, dry, no cyanosis OBJECTIVE DATA: Lab Results Component Value Date GLUCOSE 98 06/21/2022 CALCIUM 9.9 06/21/2022 SODIUM 139 06/21/2022 POTASSIUM 4.0 06/21/2022 CO2 28 06/21/2022 CHLORIDE 104 06/21/2022 BUNSER 14 06/21/2022 CREATININE 0.88 06/21/2022 Lab Results Component Value Date NTPROBNP 577 (H) 03/15/2022 Lab Results Component Value Date WBC 7.0 04/25/2022 HGB 11.5 (L) 04/25/2022 HCT 37.5 (L) 04/25/2022 MCV 79.4 (L) 04/25/2022 LABPLAT 227 04/25/2022 Lab Results Component Value Date LDL 44 06/02/2019 HDL 42 06/21/2022 Cardiac PET 11/19/2019 IMPRESSION: 1. Evidence [...] with 0% stenosis ANTHONY 3 flow Echo 07/20/2022 SUMMARY: LA is markedly dilated. Normal RV cavity size. LV cavity size is normal. Normal LV wall thickness/mass. Mild LV global hypokinesis. Normal Inferior vena cava. Normal aorta. No AR seen, Mild MR, no , no MS, mild TV regurgitation, normal PV.Diastolic function: indeterminate.LVEF 45%. ASSESSMENT AND PLAN: 1. Coronary disease; His prior stents were patent. Recent PCI of RCA was done successfully on 04/25/2022. He does not want to do cardiac Rehab phase. He is on Plavix. I have stopped ASA as he is also on Eliquis. He is other vinson recommended to start walking . She will start the aspirin back after April 11, 2023 when he will stop the Plavix. 2. Atrial Fibrillation; He is on Eliquis. No history of TIA/CVA noted. CHF and moderate to severe MR ; Recent Echo on 04/06/2022 as mentioned above did not showed significant MR. ,His LVEF is 44%. He is on Plavix for his stents and Eliquis for his atrial fibrillation. He is off of aspirin. 2. Hypertension, well controlled. 3. Dyslipidemia. He is on high-dose Lipitor and Niacin 1,000 mg BID. Tolerating well. Will increaseatorvastatin to 80 mg a day. 4. Obstructive sleep apnea. 5. Osteoarthritis. He [...] echo showed only mild MR. LVEF 44%. will d/c amlodipine,quinapril and HCTZ.. He is On entresto 24/26mg BID. Will get BNP, BMP in 2 weeks. Echo with doppler in 2-3 months. Will add Jardiance 10 mg a day. He will continue lasix 80 mg a day. Low salt diet. RTc 3 m It was pleasure to participate in the care of Du Anderson. We will see him back in six months. Sincerely, Ari Bradley M.D., F.A.C.C. it project lead [facility]. [place] This note was written using a voice recognition system hardware device. Please note there may be variance in spelling, stephanie, and syntax because of the voice recognition system hardware. Therefore,not every sentence has been reviewed in its entirety. If there are any concerns about verbage aboveplease contact me at [phone]. documented in this encounter Plan of Treatment Not on file documented as of this encounter Visit Diagnoses Diagnosis Coronary artery disease involving cantwell coronary artery of cantwell heart without angina pectoris- Primary Mixed hyperlipidemia documented in this encounter Discontinued Medications Medication Sig Discontinue Reason Start Date End Da te clopidogreL (PLAVIX) 75 mg tablet TAKE 1 TABLET BY MOUTH DAILY Therapy completed 07/29/2022 05/30/2023 documented as of this encounter Care Teams Financial Sales Advisor Relationship Specialty Start Date End Date Gianluca Price MD PCP - General 06/18/17 Ayden Corona DO [address] [facility] [address] [place] [address] Referring Physician Surgery 10/29/22 Roberto Medley MD [phone] [place] [address] Surgeon Colon and Rectal Surgery 11/23/22 documented as of this encounter
--- OUTSIDE RECORDS SUMMARY | 2024-10-05 02:50 | XMS_ITS | Encounter Summary ---
Author Organization [facility] Address [address] [place] [address] Phone Care Team Providers Care Stamp Analyst Name Role Phone Gianluca Price MD Primary Care Provider Ayden Corona DO Unavailable [phone] Roberto Medley MD Unavailable [phone] Encounter Details Date Type Department Care Team (Late st Contact Info) Description 11/18/2023 Telephone [facility] Cardiology [address] 8th [place] [address] [place] [address] Ari Bradley MD [address] [place] [address] Social History Tobacco Use Types Packs/Day Years Used Date Smoking Tobacco: Never Passive Smoke Exposure: Never Smokeless Tobacco: Never Alcohol Use Standard Drinks/Week Comments Yes 0 (1 standard drink = 0.6 oz pur e alcohol) Occasionally AUDIT-C Answer Date Recorded Q1: How often do you have a drink containing alc ohol? 2-4 times a month 11/11/2023 Q2: How many drinks containi ng alcohol do you have on a typical day when you are drinking? 1 or 2 11/11/2023 Q3: How often do you have si x or more drinks on one occasion? 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 Gender Identity Not on file Sexual Orientation Not on file Occupation Industry Job Start Date Job End Date Retired Not on file Not on file Not on file documented as of this encounter Ordered Prescriptions Prescription Sig Dispense Quantity Refills Last Filled Start Date End Date atorvastatin (LIPITOR) 80 mg tabletIndications: hyperlipidemia Take 1 tablet (80 mg total) by mouth safety compliance specialist before breakfast 90 tablet 3 11/18/2023 4 clopidogreL (PLAVIX) 75 mg tabletIndications: stent placed 2019 Take 1 tablet (75 mg total) by mouth every morning 90 tablet 3 11/18/2023 4 furosemide (LASIX) 80 mg tablet Take 1 tablet (80 mg total) by mouth daily 100 tablet 2 11/18/2023 4 carvediloL (COREG) 6.25 mg tablet Take 1 tablet (6.25 mg total) by mouth 2 (two) times a day with meals 200 tablet 2 11/18/2023 4 documented in this encounter Miscellaneous Notes * Telephone Encounter - Heather Pat CMA - 11/18/2023 2:48 PM HAND COREMAKER Requested Prescriptions Pending Prescriptions Disp Refills carvediloL (COREG) 6.25 mg tablet 200 tablet 2 Sig: Take 1 tablet (6.25 mg total) by mouth 2 (two) times a day with meals furosemide (LASIX) 80 mg tablet 100 tablet 2 Sig: Take 1 tablet (80 mg total) by mouth daily clopidogreL (PLAVIX) 75 mg tablet 90 tablet 3 Sig: Take 1 tablet (75 mg total) by mouth every morning atorvastatin (LIPITOR) 80 mg tablet 90 tablet 3 Sig: Take 1 tablet (80 mg total) by mouth safety compliance specialist before breakfast Last provider visit: 05/30/2023 Next provider visit: 01/02/2024 Preferred pharmacy: [facility]/pharmacy #[id number] - [place], [place] - [address] [address] [facility] [address] Was med refilled or sent back to Provider Pool for clarification? MED WAS REFILLED COREMAKER * Telephone Encounter - Tim Pricemy Jasmine - 11/18/2023 2:33 PM CST Kirk Pt is calling to advise he no longer uses [facility] and all scripts need to go through [facility] [place] Carvedilol Furosemide Clopidogrel Atorvastatin [facility] [place], COREMAKER documented in this encounter Plan of Treatment Not on file documented as of this encounter Visit Diagnoses Not on filedocumented in this encounter Discontinued Medications Medication Sig Discontinue Reason Start Date End Da te atorvastatin (LIPITOR) 80 mg tabletIndications:hyper lipidemia Take 1 tablet (80 mg total) by mouth safety compliance specialist before breakfast Reorder 05/06/2023 11/18/2023 clopidogreL (PLAVIX) 75 mg tabletIndications:stent placed 2019 Take 1 tablet (75 mg total) by mouth every morning Reorder 09/02/2023 11/18/2023 carvediloL (COREG) 6.25 mg tablet TAKE 1 TABLET BY MOUTH TWICE DAILY WITH MEALS Reorder 11/11/2023 11/18/2023 furosemide (LASIX) 80 mg tablet TAKE 1 TABLET BY MOUTH DAILY Reorder 11/18/2023 11/18/2023 documented as of this encounter Care Teams Stamp Analyst Relationship Specialty Start Date End Date Gianluca Price MD PCP - General 06/18/17 Ayden Corona DO [address] [address] Referring Physician Surgery 10/29/22 Roberto Medley MD [phone] [place] [address] Surgeon Colon and Rectal Surgery 11/23/22 documented as of this encounter
--- OUTSIDE RECORDS SUMMARY | 2024-10-05 02:50 | XMS_ITS | Encounter Summary ---
Author Organization [facility] Address [address] [place] [address] Phone Care Team Providers Care Receiver/Laborer Name Role Phone Gianluca Price MD Primary Care Provider Ayden Corona DO Unavailable [phone] Roberto Medley MD Unavailable [phone] Reason for Referral * Cardiology (Routine) - Closed Specialty Diagnoses / Procedures Referred By Contac t Referred To Contact Diagnoses Coronary artery disease involving salamatof coronary artery of salamatof heart without angina pectoris Acute diastolic congestive heart failure (CMS/HCC) (HCC) Procedures Transthoracic Echo (TTE) Complete W Doppler/CF Abigail Woodard MD [address] [facility] [address] [place] [address] Phone: tel: fax: [facility] (All Locations) Referral ID Status Reason Start Date Expiration Date Visits Re quested Visits Authorized [id number] Closed 01/02/2024 01/31/2025 1 1 Encounter Details Date Type Department Care Team (Late st Contact Info) Description 01/02/2024 10:45 AM CDT Office Visit [facility] Cardiology [address] [address] [place] [address] Abigail Woodard MD [address] [address] [place] [address] Coronary artery disease involving salamatof coronary artery of salamatof heart without angina pectoris (Primary Dx); Acute diastolic congestive heart failure (CMS/HCC) (HCC) Social History Tobacco Use Types Packs/Day Years Used Date Smoking Tobacco: Never Passive Smoke Exposure: Never Smokeless Tobacco: Never Alcohol Use Standard Drinks/Week Comments Yes 0 (1 standard drink = 0.6 oz pur e alcohol) Occasionally AUDIT-C Answer Date Recorded Q1: How often do you have a drink containing alc ohol? 2-4 times a month 12/19/2023 Q2: How many drinks containi ng alcohol do you have on a typical day when you are drinking? 1 or 2 12/19/2023 Q3: How often do you have si x or more drinks on one occasion? 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 Gender Identity Not on file Sexual Orientation Not on file Occupation Industry Job Start Date Job End Date Retired Not on file Not on file Not on file documented as of this encounter Last Filed Vital Signs Vital Sign Reading Time Taken Comments Blood Pressure 154/97 01/02/2024 10:45 AM CDT Pulse 96 01/02/2024 10:45 AM CDT Temperature 36.4 ??C (97.6 ??F) 01/02/2024 10:45 AM C DT Respiratory Rate - - Oxygen Saturation 99% 01/02/2024 10:45 AM CDT Inhaled Oxygen Concentration - - Weight 155.1 kg (342 lb) 01/02/2024 10:45 AM CDT Height 195.6 cm (6' 5 ) 01/02/2024 10:45 AM CDT Body Mass Index 40.56 01/02/2024 10:45 AM CDT documented in this encounter Progress Notes * Abigail Woodard MD - 01/02/2024 10:45 AM CDT 01/02/2024 Cardiology Consult Patient's Name: Du Anderson : 1955 [place]: 01/02/2024 PRINCIPAL AND SECONDARY DIAGNOSES: 1. Complex coronary disease. PCI of trifurcating left main circumflex, inferior ramus, superior ramus, and ostial LAD in a staged manner with multiple CRISTHIAN stents in 2015. Cath /PCI 04/25/2022 ; Successful drug-eluting Synergy [...] on 04/25/2022. He continues to do well. . His shortness of breath improved. No chest [...] (two) times a day) 60 tablet 3 apixaban (ELIQUIS) 5 mg tablet Take 1 tablet (5 mg total) by mouth 2 (two) times a day 56 tablet 0 atorvastatin (LIPITOR) 80 mg tablet Take 1 tablet (80 mg total) by mouth medical coder before breakfast 90 tablet 3 bisacodyL 5 [...] meals) 200 tablet 2 cholecalciferol (VITAMIN D-3) 89023 unit capsule Take 1 capsule (10,000 Units [...] 1 tablet (10 mg total) by mouth medical coder before breakfast) 14 tablet 0 dapagliflozin propanediol (FARXIGA) 10 mg tablet Take [...] multivitamin capsule Take 1 capsule by mouth medical coder before breakfast neomycin (MYCIFRADIN) 500 mg tablet [...] by mouth 2 (two) times a day 112 tablet 0 No current facility-administered medications on file prior to visit. PHYSICAL EXAM: Blood pressure 154/97, pulse 96, temperature 36.4 ??C (97.6 ??F), height 195.6 cm (6' 5 ), weight (!) 155.1 kg (342 lb), SpO2 99%. GEN: pleasant in NAD; alert, comfortable HENT: NCAT, MMM, anicteric Neck: no trauma, no JVD CVS: RRR, S1S2, no rubs/murmurs/gallops PULM: non-labored, CTAB, good inspiratory effort ABD: soft, not tender to palpation EXT: equal radial pulses, no edema Neuro: motor and sensation grossly intact Skin: warm, dry, no cyanosis OBJECTIVE DATA: I reviewed the following labs [...] 06/02/2019 Lab Results Component Value Date GLUCOSE 98 [...] cardiac Rehab phase. He is on Plavix. He is also on Eliquis. He is other vinson recommended to start walking . 2. Atrial Fibrillation; He is on Eliquis. [...] LVEF could not tolerate spironolactone in the past RTc 3 m Thank you for letting me participating in this patient care. Please feel free to call me or my office for any cardiac questions. Abigail Woodard M.D., F.A.C.C., M.B.A. street car mechanic Cardiovascular Division [employer] [facility] [employer] [place] [address] This note contains information and findings from [...] about verbiage above please contact me at [phone]. documented in this encounter Plan of Treatment Not on file documented as of this encounter Results * TRANSTHORACIC ECHO (TTE) COMPLETE W DOPPLER/CF W CONTRAST (01/03/2024 3:41 PM CDT) LV EF 43 % CARDIOREPORT Anatomical Region Laterality Modality Ultrasound 01/03/2024 3:00 PM CDT Narrative 01/04/2024 12:00 AM CDT Patient name: Du Anderson Date of test: 01/03/2024 Type of test: TTE w/Doppler [facility] #: 0 Date of : 1955 (M) [employer] Contact Representative: Dani García RDCS Referring Physician: ABIGAIL WOODARD MD Contrast Agent: 1.1 ml Optison Administered, (1.9 ml wasted). Contrast Administered by: Dani García RDCS Supervised/Interpreted by: Abigail Woodard MD Diagnosis: Location: [facility] Reason for test: CAD MV Structure: Normal, ?MV Motion: Normal, ?? Mitral Annulus: Normal AV Structure: tricuspid and is Normal, ?? AV Motion: Normal Aotic root: Normal, ?TM: Normal, ?? PV: Normal Valvular Vegetations: none seen, ?Mass/Thrombi: none seen RA: Normal Measurements: ?M-Mode ?Normal ? Aotic Root: ? <3.8 ? LA: ? <4.0 ? RV: ? <2.8 ? LV(ED): ? <5.7 ? LV(ES): ? Variable ?2D Linear Normal ? Aotic Root: 3.1 cm ?<4.0 ? Ao Indexed: 1.1 cm/M2 <2.0 ? LA: ? 4.9 cm ?<4.0 ? RV: ? 4.9 cm ?<4.2 ? LV(ED): ? 5.2 cm ?<5.9 ? LV(ES): ? 3.4 cm ?<4.0 ?2D Vol. ?? Normal ?Indexed ?? Indexed Normal RA: ? 111.0 ml ?39.5 ml/M2 ?11-39 ? LA: ? 108.0 ml ?38.4 ml/M2 ?16-34 ? RV: ? <12.7 ? LV(ED): ? 120.0 ml ??62-150 ?42.7 ml/M2 ?<75 ? LV(ES): ? 68.0 ml ?? 21-61 ? 24.2 ml/M2 ?<32 ?3D Vol. ? Indexed Normal LV(ED): ?<75 ? LV(ES): ?<32 ? LV EF: 43 % ?? (Normal: >=52%) ?? LV Septum: 0.9 cm ?(Normal: <1.0 cm) Wall Motion Scoring (1=Normal 2=Hypo 3=Akinetic 4=Dyskin./Aneurysm 0=Not visualized) Parasternal Long [place]:MAS=2 BAS=2 MIL=2 ALICJA=2 Parasternal Short [place]:MAS=2 MIS=2 AZ=2 MIL=2 MAL=2 MA=2 Apical 4 Chambers:=2 MIS=2 BIS=2 BAL=2 MAL=2 AL=2 AC=2 Apical 2 Chambers:AI=2 AZ=2 BI=2 BA=2 MA=2 AA=2 AC=2 LV Global Longitudinal Strain: RV Global Longitudinal Strain: LV Function: Mild Global reduction in LV Ejection Fraction (EF= 41-51%) RV Function: Normal Septal Motion: Normal Pericardial Effusion: none seen Atrial Septum: Normal DOPPLER/COLOR FLOW DOPPLER RESULTS: Diastolic Function: indeterminate Tricuspid Valve: mild TV regurgitation Pulmonic Valve: normal PV AV Regurgitation: No AR seen AV Stenosis: no AV Area: ??cm2 AV Pressure Gradient (mmHg): Mean: 0, Peak:0 MV Regurgitation: Mild MR MV Stenosis: no MS MV Area: ??cm2 MV Pressure Gradient (mmHg): Mean: 0 MV ERO: ??cm Regurg. Vol.: ??ml/beat Regurg. Frac.: ??% PA Pressure: 28+RA mmHg DOPPLER/COLOR FOLOW DOPPLER COMMENTS: No AR seen, Mild MR, no , no MS, mild TV regurgitation, normal PV. Diastolic function: indeterminate CONTRAST: 1.1 ml Optison Administered, (1.9 ml wasted). SUMMARY: LA is mildly dilated. Normal RV cavity size. LV cavity size is normal. Normal LV wall thickness/mass Mild LV global hypokinesis with LVEF 43%. . Normal Inferior vena cava. Normal aorta. ??No AR seen, Mild MR, no , no MS, mild TV regurgitation, normal PV.Strain quality is inadequate for accurate reporting. Diastolic function: indeterminate Confirmed on ??01/04/2024 - 00:00:19 by Abigail Woodard MD By signing this report, the attending steam setter certifies that he or she has personally supervised and interpreted the echocardiogram and has reviewed and or edited and agrees with the written comments contained within the report. Procedure Note Abigail Woodard MD - 01/04/2024 Patient name: Du Anderson Date of test: 01/03/2024 Type of test: TTE w/[facility] #: 0 Date of : 1955 (M) [employer] Contact Representative: Dani García RDCS Referring Physician: ABIGAIL WOODARD MD Contrast Agent: 1.1 ml Optison Administered, (1.9 ml wasted). Contrast Administered by: Dani García RDCS Supervised/Interpreted by: Abigail Woodard MD Diagnosis: Location: [facility] Reason for test: CAD MV Structure: Normal, MV Motion: Normal, Mitral Annulus: Normal AV Structure: tricuspid and is Normal, AV Motion: Normal Aotic root: Normal, TM: Normal, PV: Normal Valvular Vegetations: none seen, Mass/Thrombi: none seen RA: Normal Measurements: M-Mode Normal Aotic Root: <3.8 LA: <4.0 RV: <2.8 LV(ED): <5.7 LV(ES): Variable 2D Linear Normal Aotic Root: 3.1 cm <4.0 Ao Indexed: 1.1 cm/M2 <2.0 LA: 4.9 cm <4.0 RV: 4.9 cm <4.2 LV(ED): 5.2 cm <5.9 LV(ES): 3.4 cm <4.0 2D Vol. Normal Indexed Indexed Normal RA: 111.0 ml 39.5 ml/M2 11-39 LA: 108.0 ml 38.4 ml/M2 16-34 RV: <12.7 LV(ED): 120.0 ml 62-150 42.7 ml/M2 <75 LV(ES): 68.0 ml 21-61 24.2 ml/M2 <32 3D Vol. Indexed Normal LV(ED): <75 LV(ES): <32 LV EF: 43 % (Normal: >=52%) LV Septum: 0.9 cm (Normal: <1.0 cm) Wall Motion Scoring (1=Normal 2=Hypo 3=Akinetic 4=Dyskin./Aneurysm 0=Not visualized) Parasternal Long [place]:MAS=2 BAS=2 MIL=2 ALICJA=2 Parasternal Short [place]:MAS=2 MIS=2 AZ=2 MIL=2 MAL=2 MA=2 Apical 4 Chambers:=2 MIS=2 BIS=2 BAL=2 MAL=2 AL=2 AC=2 Apical 2 Chambers:AI=2 AZ=2 BI=2 BA=2 MA=2 AA=2 AC=2 LV Global Longitudinal Strain: RV Global Longitudinal Strain: LV Function: Mild Global reduction in LV Ejection Fraction (EF= 41-51%) RV Function: Normal Septal Motion: Normal Pericardial Effusion: none seen Atrial Septum: Normal DOPPLER/COLOR FLOW DOPPLER RESULTS: Diastolic Function: indeterminate Tricuspid Valve: mild TV regurgitation Pulmonic Valve: normal PV AV Regurgitation: No AR seen AV Stenosis: no AV Area: cm2 AV Pressure Gradient (mmHg): Mean: 0, Peak:0 MV Regurgitation: Mild MR MV Stenosis: no MS MV Area: cm2 MV Pressure Gradient (mmHg): Mean: 0 MV ERO: cm Regurg. Vol.: ml/beat Regurg. Frac.: % PA Pressure: 28+RA mmHg DOPPLER/COLOR FOLOW DOPPLER COMMENTS: No AR seen, Mild MR, no , no MS, mild TV regurgitation, normal PV. Diastolic function: indeterminate CONTRAST: 1.1 ml Optison Administered, (1.9 ml wasted). SUMMARY: LA is mildly dilated. Normal RV cavity size. LV cavity size is normal. Normal LV wall thickness/mass Mild LV global hypokinesis with LVEF 43%. . Normal Inferior vena cava. Normal aorta. No AR seen, Mild MR, no , no MS, mild TV regurgitation, normal PV.Strain quality is inadequate for accurate reporting. Diastolic function: indeterminate Confirmed on 01/04/2024 - 00:00:19 by Abigail Woodard MD By signing this report, the attending steam setter certifies that he or she has personally supervised and interpreted the echocardiogram and has reviewed and or edited and agrees with the written comments contained within the report. Abigail Woodard MD CV ECHO PROCEDURES Final Resul t documented in this encounter Visit Diagnoses Diagnosis Coronary artery disease involving salamatof coronary artery of salamatof heart without angina pectoris- Primary Acute diastolic congestive heart failure (CMS/HCC) (HCC) Coronary artery disease involving salamatof coronary artery of salamatof heart without angina pectoris Acute diastolic congestive heart failure (CMS/HCC) (HCC) documented in this encounter Discontinued Medications Medication Sig Discontinue Reason Start Date End Da te dapagliflozin (FARXIGA) 10 mg tablet Take 1 tablet (10 mg total) by mouth daily Duplicate order 06/21/2022 01/02/2024 sacubitriL-valsartan (ENTRESTO) 24-26 mg tabletIndications:chroni c heart failure Take 1 tablet by mouth 2 (two) times a day Duplicate order 12/31/2023 01/02/2024 apixaban (ELIQUIS) 5 mg tablet Take 1 tablet (5 mg total) by mouth 2 (two) times a day Duplicate order 12/31/2023 01/02/2024 documented as of this encounter Care Teams Receiver/Laborer Relationship Specialty Start Date End Date Gianluca Price MD PCP - General 06/18/17 Ayden Corona DO [address] [facility] [address] [place] [address] Referring Physician Surgery 10/29/22 Roberto Medley MD [phone] [place] [address] Surgeon Colon and Rectal Surgery 11/23/22 documented as of this encounter
--- OUTSIDE RECORDS SUMMARY | 2024-10-05 02:50 | XMS_ITS | Encounter Summary ---
Author Organization [facility] Address [address] [place] [address] Phone Care Team Providers Care Scraper Hand Name Role Phone Gianluca Price MD Primary Care Provider Ayden Corona DO Unavailable [phone] Roberto Medley MD Unavailable [phone] Reason for Visit * Reason Onset Date Comments Med Samples 05/23/2023 Farxiga, Entrest o and Eliquis Encounter Details Date Type Department Care Team (Late st Contact Info) Description 05/23/2023 Telephone [facility] Cardiology [address] [facility] [address] [place] [address] Ari Bradley MD [address] [facility] [address] [place] [address] Med Samples (Farxiga, Entresto and Eliquis) Social History Tobacco Use Types Packs/Day Years [...] on file 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 Gender Identity Not on file Sexual Orientation Not on file Occupation Industry Job Start Date Job End Date Retired Not on file Not on file Not on file documented as of this encounter Miscellaneous Notes * Telephone Encounter - Sydney Nunez RN - 05/27/2023 6:37 PM CDT Samples of of the following set aside for pt to order picker at [facility]: Farxiga 10 mg #: 21 LOT: [id number] Exp: 02/03/2026 Entresto 24/26 mg #: 56 LOT: [id number] Exp: 06/06/2025 Eliquis 5 mg #: 56 LOT: [id number] Exp: 01/04/2025 documented in this encounter Plan of Treatment Not on file documented as of this encounter Visit Diagnoses Not on filedocumented in this encounter Care Teams Scraper Hand Relationship Specialty Start Date End Date Gianluca Price MD PCP - General 06/18/17 Ayden Corona DO [address] [facility] [address] [place] [address] Referring Physician Surgery 10/29/22 Roberto Medley MD [phone] [place] [address] Surgeon Colon and Rectal Surgery 11/23/22 documented as of this encounter
--- OUTSIDE RECORDS SUMMARY | 2024-10-05 02:50 | XMS_ITS | Encounter Summary ---
Author Organization [facility] Address [address] [place] [address] Care Team Providers Care Financial Reserve Clerk Name Role Phone Gianluac Price MD Primary Care Provider ChloeAyden DO Unavailable [phone] Roberto Medley MD Unavailable [phone] Reason for Visit * Auth/Cert (Routine) Specialty Diagnoses / Procedures Referred By Contac t Referred To Contact Diagnoses Anal fistula Anal fistula [K60.3] Procedures CA ANRCT XM SURG REQ ANES GENERAL SPI/EDRL DX CA I&D PERIANAL ABSCESS SUPERFICIAL EXAM UNDER ANESTHESIA - RECTUM INCISION AND DRAINAGE ABSCESS - GREGORIO-ANAL Referral ID Status Reason Start Date Expiration Date Visits Re quested Visits Authorized [id number] 1 1 Encounter Details Date Type Department Care Team (Latest Contact Info) Description 04/26/2023 6:05 AM CDT - 04/26/2023 9:01 AM CDT Hospital Encounter [facility] Surgery at [facility] [address] [place] [address] Roberto Medley MD [address] [facility] [phone] [place] [address] Encounter for preadmission testing (Primary Dx) Discharge Disposition: Discharge to home [...] on file 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 If prescribed Percocet, [place], Tylenol #3, or any agent containing acetaminophen [...] Office for All Questions and Concerns Office: [phone] (Saturday - Saturday, 8am to 4pm) Exchange: [phone] (after hours, holidays and weekends) * Attachments The following attachments cannot be sent through Care Everywhere. * [facility] PATHWAY TO EXCELLENT CARE AFTER SURGERY documented in this encounter Medications at Time of Discharge allopurinol (ZYLOPRIM) 300 mg tabletIndication s:prevention of acute gout attack Take 1 tablet (300 mg total) by mouth nightly 06/01/2018 cholecalciferol (VITAMIN D-3) 48318 unit capsuleIndicatio ns:supplement Take 1 capsule (10,000 Units total) by mouth director of early childhood education before breakfast multivitamin capsuleIndicatio ns:Vitamin Deficiency Prevention Take 1 capsule by mouth director of early childhood education before breakfast amoxicillin 500 mg capsule Take [...] Preoperative Evaluation Record Evaluation type/location: TPAP from [facility] Planned procedure site: [facility] OR Date: 04/12/23 NOTE: This note [...] - mild; TR - mild. Pertinent negatives: MD ; CABG ; valve replacement; atrial fibrillation; arrhythmia; pacemaker/ICD;PVD; DVT/PE; bare metal stent(s) and coronary angioplasty Comments: Followed by client resolution specialist, Dr [facility]-- Last OV Respiratory + Sleep [...] provided by telephone and electronically sent via [employer] | [employer]. Patient verbalized understanding of instructions. Blood bank needs for day of procedure: No type and screen needed CBC done 04/25/2022, CMP done 06/21/2022-- Cr= 0.88 Pending labs/tests include: None EKG 02/06/2023, TTE 07/20/2022, LHC 04/25/2022, Stress test 07/12/2021--See diagnostic section and in Epic This patient has a history of atrial fibrillation at LOW risk for perioperative thromboembolic events with a [id number] score of 4 and no known history [...] Please call the CPAP chart room clinician [phone]) with any questions or to discuss alternative [...] of intersphincteric fistula tract done 02/21/2023 at [facility]-- No documented complications with anesthesia noted and pt is stable at baseline. TPAP assessment complete. Preoperative evaluation performed by Toya He NP on 04/12/23 at 11:40 AM . Patient Active Problem List Diagnosis Abnormal cardiovascular stress test Shortness of breath Hyperlipidemia Hypertension Coronary artery disease involving confederated gosh[place] coronary artery of conf[place]osh[place] heart without angina pectoris Low back pain, non-specific Abnormal EKG Chest pain Acute diastolic congestive heart failure (CMS/HCC) (HCC) Anal fistula Past Medical History: Diagnosis Date Arthritis Atrial fibrillation (CMS/HCC) (HCC) s/p cardioversion 2019-- Currently treated with Eliquis CHF (congestive heart failure) (CMS/HCC) (HCC) Coronary artery disease s/p multiple CRISTHIAN-- 04/2016 [...] ARTHROPLASTY Right 09/2021 POSTERIOR FUSION LUMBAR SPINE 2013 L3-5 PSF ([place]) TOTAL HIP ARTHROPLASTY Left 12/2019 TOTAL KNEE ARTHROPLASTY Right 01/2016 TOTAL KNEE ARTHROPLASTY Left 05/2018 Allergies Allergen Reactions Rosuvastatin Muscle pain Med List Status: Nurse Complete Set By: Gely Hutchins RN at 04/10/2023 1:25 PM Taking? Last Dose Start Date End Date Provider allopurinol (ZYLOPRIM) 300 mg tablet 04/09/2023 06/01/18 -- ProviderAbran MD amoxicillin 500 mg capsule More than a month 01/25/23 -- ProviderAbran MD apixaban (ELIQUIS) 5 mg tablet 04/10/2023 [...] tablet (80 mg total) by mouth director of early childhood education before breakfast carvediloL (COREG) 6.25 mg tablet 04/10/2023 12/24/22 -- Ari [facility] MD TAKE 1 TABLET BY MOUTH TWICE DAILY WITH MEALS Patient taking differently: Take 1 tablet (6.25 mg total) by mouth 2 (two) times a day with meals Notes: Requesting 1 year supply cholecalciferol (VITAMIN D-3) 66866 unit capsule 04/10/2023 -- -- ProviderAbran MD clopidogreL (PLAVIX) 75 mg tablet 04/10/2023 07/29/22 -- Ari [facility] MD TAKE 1 TABLET BY MOUTH DAILY Patient taking differently: Take 1 tablet (75 mg total) by mouth director of early childhood education before breakfast Notes: Requesting 1 year supply dapagliflozin (FARXIGA) 10 mg tablet 04/10/2023 06/21/22 -- Ari [facility] MD Take 1 tablet (10 mg total) by mouth daily Patient taking differently: Take 1 tablet (10 mg total) by mouth director of early childhood education before breakfast Notes: [id number] 09/05/2024 furosemide (LASIX) 80 mg tablet 04/10/2023 12/24/22 -- Ari [facility] MD TAKE 1 TABLET BY MOUTH DAILY Patient taking differently: Take 1 tablet (80 mg total) by mouth director of early childhood education before breakfast Notes: Requesting 1 year supply multivitamin capsule 04/10/2023 -- -- ProviderAbran MD nitroglycerin (NITROSTAT) 0.4 mg SL tablet [...] (COREG) 6.25 mg tablet cholecalciferol (VITAMIN D-3) 29949 unit capsule clopidogreL (PLAVIX) 75 mg tablet [...] normal ECG. Electrocardiographically normal ECG. Cardiac catheterization(s): [facility] 04/25/2022-- 1. 3 Vessel CAD with patent [...] Medication protocol when under care of a SALES SUPPORT REPRESENTATIVE Planned anesthesia: MAC Induction: Induction: intravenous. Postoperative Plan: No plan for postoperative opioid use. No postoperative mechanical ventilation intended. Patient's planned disposition post procedure is Outpatient. Informed Consent: Discussed plan with SALES SUPPORT REPRESENTATIVE. Anesthesia plan and risks discussed with patient. [...] after injection of 10 mL. A 16 Irish mushroom catheter was then placed within this [...] Preoperative Assessment and Planning CPAP Clinic Location: [facility] The night before your surgery: [...] Take morning of surgery cholecalciferol (VITAMIN D-3) 48925 unit capsule Don't take on day of [...] Planning Perioperative Nursing Note Telephone Preoperative Evaluation ([facility]) - TELEPHONE ONLY, NO PHYSICAL EXAM [...] tablet (80 mg total) by mouth director of early childhood education before breakfast) 30 tablet 11 carvediloL (COREG) 6.25 mg tablet TAKE 1 TABLET BY MOUTH TWICE DAILY WITH MEALS (Patient taking differently: Take 1 tablet (6.25 mg total) by mouth 2 (two) times a day with meals) 200 tablet 2 cholecalciferol (VITAMIN D-3) 12249 unit capsule Take 1 capsule (10,000 Units total) by mouth earlymorning before breakfast clopidogreL (PLAVIX) 75 mg tablet TAKE 1 TABLET BY MOUTH DAILY (Patient taking differently: Take 1 tablet (75 mg total) by mouth director of early childhood education before breakfast) 90 tablet 3 dapagliflozin (FARXIGA) 10 mg tablet Take 1 tablet (10 mg total) by mouth daily (Patient taking differently: Take 1 tablet (10 mg total) by mouth director of early childhood education before breakfast) 14 tablet 0 furosemide (LASIX) 80 mg tablet TAKE 1 TABLET BY MOUTH DAILY (Patient taking differently: Take 1 tablet (80 mg total) by mouth director of early childhood education before breakfast) 100 tablet 2 multivitamin capsule Take 1 capsule by mouth director of early childhood education before breakfast nitroglycerin (NITROSTAT) 0.4 mg SL [...] a day 180 tablet 3 Implants Stent [employer] Chris Synergy Xd 4mm 48mm System Coronary Stent Everolimus [id number] - [id number] - [id number] - Implanted (Right) Coronary Artery Inventory item: [employer] SYNERGY XD 4MM 48MM SYSTEM CORONARY STENT EVEROLIMUS [id number] Model/Cat number: [id number] Serial number: [id number] Wedding Coordinator: [employer] Chris Lot number: [id number] As of 04/25/2022 Status: Implanted SKIN Piercings Remaining: No Wound (LDAs) Type of Wound (LDA): (denies) SCREENINGS Dawson index score: 95 NUTRITION PATIENT CARE PLANNING Advance Directives (For Healthcare) Have you reviewed your Advance Directive and is it valid for this stay?: Not applicable Advance Directive: Patient does not have advance directive Communication/Senior Systems Programmer Needs Communication Needs: Glasses Assistive Devices/DME: Eyeglasses, CPAP/BiPAP, Cane, Motorized scooter Hearing - Right Ear: Functional Hearing - Left Ear: Functional Discharge Planning Type of Residence: Private residence Living Arrangements: Spouse/significant other Support Systems: Spouse/significant other Patient expects to be discharged to:: Private residence FLOW COORDINATOR NO ADDITIONAL COMMENTS/ FOLLOW UP * Pre-Procedure Instructions - Gely Hutchins RN - 04/10/2023 1:28 PM CDT [facility] PRE-SURGICAL NURSING INSTRUCTIONS Telephone Assessment General Information Discussed with Patient: Surgery location provided to patient. Arrival time and surgical time will be provided to the patient by their surgeon. You should wear clothing that is clean, loose, comfortable and easy to get in and out of on the dayof surgery. You should remove nail coverings, artificial nails and nail iraqi prior to the day of surgery. You should leave your valuables and any jewelry at home. No metal or piercings are allowed in the operating room. You should bring your insurance card, a photo ID (example: Meeting Planner's License) and a method of payment for [...] Remove nail coverings, artificial nails and nail iraqi. Place clean linens on your bed the [...] questions, please call the CPAP Staff at [phone], Saturday-Saturday 8am-4:30pm. All patients should read the below section: COVID 19 Updates & Visitor Policy: Please access [email or web address] for the most updated information. Information on [facility]: Please view [email or web address] (Patient & Visitor Information) for additional details regarding Advanced Directive forms, AWARE, directions, parking information, lodging, Internet access, dining and more. For MyChart information, to activate account or password recovery, please go to [email or web address] or call [phone] (toll-free: [phone]). Information for Suicide Prevention: National Suicide Prevention Lifeline (5-012- 451-ZCVI (4349)). Surgery Times: For patients having surgery @ [facility], [facility] or [facility] ([facility]), if your surgeon's office has not notified you of your surgery time by NOON THE BUSINESS DAY BEFORE your surgery, please call [phone] and ask for your surgeon's office Dr. Kecia Medley. documented in this encounter Plan of Treatment Not on file documented as of this encounter Procedures Procedure Name Priority Date/Time Associated Diagnosis Comments EXAM UNDER ANESTHESIA - RECTUM 04/26/2023 8:00 AM CDT Anal fistula documented in this encounter Visit Diagnoses Diagnosis Anal fistula- Primary Encounter for preadmission testing documented in this encounter Admitting Diagnoses Diagnosis Anal fistula documented in this encounter Administered Medications Inactive Administered Medications - up to 3 most recent administrations Medication Order MAR Action Action Date Dose Rate Site acetaminophen (TYLENOL) tablet 1,000 mg 1,000 mg, oral, Once, On Sat04/26/23 at 0730, For 1 dose, Pre-Op, Indications: Pre-Emptive AnalgesiaIndications:Pre-E mptive Analgesia Given 04/26/2023 7:18 AM CDT 1,000 mg Carrier Fluids for Secondary Infusion - 0.9% Sodium Chloride 30 mL, intravenous, As needed, For priming tubing and/or flushing, Starting on Sat04/26/23 at 0649, Pre-Op, 0-250 ml/hr to flush line after IV infusions when no maintenance IV ordered. Infuse 30mL at the same rate as the secondary infusion. Run as primary IV, not intended for KVO.Indications:Encounter for preadmission testing Lactated Ringer's (LR) infusion 30 mL/hr, intravenous, Continuous, Starting on Sat04/26/23 at 0730, Pre-OpIndications:Encounte r for preadmission testing Lactated Ringer's (LR) infusion [...] and after each use.Indications:Encounter for preadmission testing documented in this encounter Discontinued Medications Medication [...] Count Last Ordered Date First Ordered Date BUPivacaine-EPINEPHrine (MAR SHANNA with EPI) 0.25 %-1:200,000 preservative free injection 1 04/26/2023 Carrier Fluids for Secondary Infusion - 0.9% Sodium Chloride 1 04/26/2023 fentaNYL (SUBLIMAZE) preserv ative free syringe 50 mcg 2 04/26/2023 HYDROcodone-acetaminophen (N ORCO) 5-325 mg per tablet 1 tablet 1 04/26/2023 hydrogen peroxide 3 % external solution 1 0 04/26/2023 Lactated Ringer's (LR) infusion 1 lidocaine PF (XYLOCAINE) 10 mg/mL (1 %) preservative free injection 2-10 mg 1 04/26/2023 naloxone (NARCAN) 0.4 mg/mL injection 0.04-0.4 mg 1 04/26/2023 ondansetron (ZOFRAN) injection 4 mg 1 04/26 prochlorperazine (COMPAZINE) injection 5 mg 1 04/26/2023 sodium chloride 0.9% flush 0.5-20 mL 1 04/07 sodium chloride 0.9% irrigation 1 sterile water irrigation 1 04/26/2023 documented in this encounter Care Teams Financial Reserve Clerk Relationship Specialty Start Date End Date Gianluca Price MD PCP - General 06/18/17 Ayden Corona DO [address] [facility] [address] [place] [address] Referring Physician Surgery 10/29/22 Roberto Medley MD [phone] [place] [address] Surgeon Colon and Rectal Surgery 11/23/22 documented as of this encounter"
--- OUTSIDE RECORDS SUMMARY | 2024-10-05 02:50 | XMS_ITS | Encounter Summary ---
Author Organization [facility] Address [address] [place] [address] Phone Care Team Providers Care Electronic Parts Designer Name Role Phone Gianluca Price MD Primary Care Provider Ayden Corona DO Unavailable [phone] Roberto Medley MD Unavailable Reason for Visit * Cardiology (Routine) - Closed Specialty Diagnoses / Procedures Referred By Contac t Referred To Contact Diagnoses Coronary artery disease involving cabazon coronary artery of cabazon heart without angina pectoris Acute diastolic congestive heart failure (CMS/HCC) (HCC) Procedures Transthoracic Echo (TTE) Complete W Doppler/CF Abigail Woodard MD [address] [facility] [address] [place] [address] Phone: tel: fax: [facility] (All Locations) Referral ID Status Reason Start Date Expiration Date Visits Re quested Visits Authorized [id number] Closed 01/02/2024 01/31/2025 1 1 Encounter Details Date Type Department Care Team (Latest Contact Info) Description 01/03/2024 3:00 PM CDT Ancillary Procedure [facility] Cardiology [address] [facility] [address] [place] [address] Coronary artery disease involving cabazon coronary artery of cabazon heart without angina pectoris; Acute diastolic congestive heart failure (CMS/HCC) (HCC) [...] on file 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 Gender Identity Not on file Sexual Orientation Not on file Occupation Industry Job Start Date Job End Date Retired Not on file Not on file Not on file documented as of this encounter Plan of Treatment Not on file documented as of this encounter Procedures Procedure Name Priority Date/Time Associated Diagnosis Comments TRANSTHORACIC ECHO (TTE) COMPLETE W DOPPLER/CF W CONTRAST Routine 01/03/2024 3:41 PM CDT Coronary artery disease involving cabazon coronary artery of cabazon heart without angina pectoris Acute diastolic congestive heart failure (CMS/HCC) (HCC) documented in this encounter Results * TRANSTHORACIC ECHO (TTE) COMPLETE W DOPPLER/CF W CONTRAST (01/03/2024 3:41 PM CDT) LV EF 43 % CARDIOREPORT Anatomical Region Laterality Modality Ultrasound 01/03/2024 3:00 PM CDT Narrative 01/04/2024 12:00 AM CDT Patient name: Du Anderson Date of test: 01/03/2024 Type of test: TTE w/Doppler Hospital #: 0 Date of : 1955 (M) Summer School Coordinator: Dani García RDCS Referring Physician: ABIGAIL WOODARD MD Contrast Agent: 1.1 ml Optison Administered, (1.9 ml wasted). Contrast Administered by: Dani García RDCS Supervised/Interpreted by: Abigail Woodard MD Diagnosis: [place] [facility] Reason for test: CAD MV Structure: Normal, [...] 2=Hypo 3=Akinetic 4=Dyskin./Aneurysm 0=Not visualized) Parasternal Long [place]:MAS=2 BAS=2 MIL=2 ALICJA=2 Parasternal Short [place]:MAS=2 MIS=2 VA=2 MIL=2 MAL=2 MA=2 Apical 4 Chambers:=2 MIS=2 BIS=2 BAL=2 MAL=2 AL=2 AC=2 Apical 2 Chambers:AI=2 VA=2 BI=2 BA=2 MA=2 AA=2 AC=2 LV Global [...] MD By signing this report, the attending electronic prepress technician certifies that he or she has personally supervised and interpreted the echocardiogram and has reviewed and or edited and agrees with the written comments contained within the report. Procedure Note Abigail Woodard MD - 01/04/2024 Patient name: Du Anderson Date of test: 01/03/2024 Type of test: TTE w/Doppler [place] [facility] #: 0 Date of : 1955 (M) Summer [employer] Coordinator: Dani García RDCS Referring Physician: ABIGAIL WOODARD MD Contrast Agent: 1.1 ml Optison Administered, (1.9 ml wasted). Contrast Administered by: Dani García RDCS Supervised/Interpreted by: Abigail Woodard MD Diagnosis: Location: [facility] Reason for test: CAD MV Structure: Normal, [...] 2=Hypo 3=Akinetic 4=Dyskin./Aneurysm 0=Not visualized) Parasternal Long [place]:MAS=2 BAS=2 MIL=2 ALICJA=2 Parasternal Short [place]:MAS=2 MIS=2 VA=2 MIL=2 MAL=2 MA=2 Apical 4 Chambers:=2 MIS=2 BIS=2 BAL=2 MAL=2 AL=2 AC=2 Apical 2 Chambers:AI=2 VA=2 BI=2 BA=2 MA=2 AA=2 AC=2 LV Global [...] MD By signing this report, the attending electronic prepress technician certifies that he or she has personally supervised and interpreted the echocardiogram and has reviewed and or edited and agrees with the written comments contained within the report. us Abigail Woodard MD CV ECHO PROCEDURES Final Resul t documented in this encounter Visit Diagnoses Diagnosis Coronary artery disease involving cabazon coronary artery of cabazon heart without angina pectoris Acute diastolic congestive heart failure (CMS/HCC) (HCC) documented in this encounter Administered Medications Inactive Administered Medications - up to 3 most recent administrations Medication Order MAR Action Action Date Dose Rate Site perflutren protein-a (OPTISON) 3 mL in sodium chloride 0.9% 8 mL syringe 1-8 mL, intravenous, Once in imaging, contrast, Starting on Sat01/03/24 at 1540, For 1 dose, Intra-Procedure (CV) Contrast Given 01/03/2024 3:41 PM CDT 3 mL documented in this encounter Orders Medications Ordered That Laith ht Not Have Been Administered Count Last Ordered Date First Ordered Date perflutren protein-a (OPTISO N) 3 mL in sodium chloride 0.9% 8 mL syringe 1 01/03/2024 documented in this encounter Care Teams Electronic Parts Designer Relationship Specialty Start Date End Date Gianluca Price MD PCP - General 06/18/17 Ayden Corona DO [address] [place] [address] Referring Physician Surgery 10/29/22 Roberto Medley MD [phone] [place] [address] Surgeon Colon and Rectal Surgery 11/23/22 documented as of this encounter
--- OUTSIDE RECORDS SUMMARY | 2024-10-05 02:50 | XMS_ITS | Encounter Summary ---
Author Organization [facility] Address [address] [place] [address] Phone Care Team Providers Care Bottom Loader Name Role Phone Gianluca Price MD Primary Care Provider Ayden Corona DO Unavailable [phone] Roberto Medley MD Unavailable [phone] Reason for Visit * Reason Comments Follow-up Perianal sinus with drain placement Encounter Details Date Type Department Care Team (Late st Contact Info) Description 06/28/2023 12:45 PM CDT Office Visit [facility] Surgery [address] [facility] [address] 2nd [address] [place] [address] Roberto Medley MD [address] [facility] [phone] [place] [address] Anal fistula (Primary Dx) Social History Tobacco [...] on file 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 Gender Identity Not on file Sexual Orientation Not on file Occupation Industry Job Start Date Job End Date Retired Not on file Not on file Not on file documented as of this encounter Last Filed Vital Signs Vital Sign Reading Time Taken Comments Blood Pressure 115/82 06/28/2023 12:41 PM CDT Pulse 91 06/28/2023 12:41 PM CDT Temperature 36.9 ??C (98.4 ??F) 06/28/2023 12:41 PM C DT Respiratory Rate - - Oxygen Saturation 95% 06/28/2023 12:41 PM CDT Inhaled Oxygen Concentration - - Weight 113.6 kg (250 lb 8 oz) 06/28/2023 12:41 P M CDT Height 195.6 cm (6' 5 ) 06/28/2023 12:41 PM CDT Body Mass Index 29.7 06/28/2023 12:41 PM CDT documented in this encounter Progress Notes * Roberto Medley MD - 06/28/2023 12:45 PM CDT Established Patient Follow-up Visit Interval History: The patient is a 67 y.o. male with A perirectal drain. It was placed in a large ischiorectal sinus.We had to replace it twice because it fell out on two occasions. He has been doing better with it. The drainage has decreased. Review of Systems: All other systems negative except as per HPI and scanned media Physical exam: Constellation: No apparent distress. Head: Normocephalic Eyes: Anicteric Ears, mouth and nose: Normal Neurologic: Non-focal motor function Respiratory: Non-labored breathing Skin: No rashes Musculoskeletal: No gross bony deformities The drain is in place but is still somewhat loose. It is not ready to pull. Assessment and Plan: Mr. Du Anderson is a 67 y.o. male With a drain in place. I will see him back in two months and we could consider pulling the drain at that time. Roberto Medley MD 06/28/2023 1:26 PM This note was created in part with the assistance of [employer] voice recognition software. Tank Bottom Assembler variances and error may occur. Not every sentence has been reviewed in its entirety. For questions about the documentation above, please contact Dr. Medley. documented in this encounter Plan of Treatment Not on file documented as of this encounter Visit Diagnoses Diagnosis Anal fistula- Primary documented in this encounter Care Teams Bottom Loader Relationship Specialty Start Date End Date Gianluca Price MD PCP - General 06/18/17 Ayden Corona DO [address] [facility] [address] [place] [address] Referring Physician Surgery 10/29/22 Roberto Medley MD [phone] [place] [address] Surgeon Colon and Rectal Surgery 11/23/22 documented as of this encounter
--- OUTSIDE RECORDS SUMMARY | 2024-10-05 02:50 | XMS_ITS | Encounter Summary ---
Author Organization [facility] Healthcare Address [address] [facility] [place] [address] Care Team Providers Care Operations Officer Name Role Phone Gianluca Price MD Primary Care Provider Ayden Corona DO Unavailable [phone] Roberto Medley MD Unavailable [phone] Reason for Visit * Auth/Cert (Routine) Specialty Diagnoses / Procedures Referred By Contac t Referred To Contact Diagnoses Non-healing surgical wound, sequela Non-healing surgical wound, sequela [T81.89XS] Procedures AR ANRCT XM SURG REQ ANES GENERAL SPI/EDRL DX AR INCISION & DRAINAGE ABSCESS COMPLICATED/MULTIPLE EXAM UNDER ANESTHESIA - RECTUM UNROOFING ANAL SINUS Referral ID Status Reason Start Date Expiration Date Visits Re quested Visits Authorized [id number] 1 1 Encounter Details Date Type Department Care Team (Late st Contact Info) Description 11/22/2023 11:18 AM SHELLFISH SHUCKER Anesthesia Event [facility] [address] [place] [address] Tuan Pacheco MD [address] [place] [address] Toya Menon NP [address] [facility] [id number] [place] [address] Anesthesia Record Procedure Summary Procedure Name Responsible Anesthesiologist Anesthesia Start Time Anesthesia Stop Time EXAM UNDER ANESTHESIA - RECTUM with mushroom drain placement (Anus) Tuan Pacheco MD 11/22/23 1118 11/22/23 1145 Events Date Time Event Comment 11/22/2023 1104 1118 An Start 1118 An Start Data 1118 In Room 1120 Start Supplemental O2 1120 An Induction The patient was reevaluated immediately before moderate or deep sedation use and before anesthesia induction. 1123 Anesthesia Ready 1124 Proc Start 1124 Incision Start 1139 an stop data 1141 Proc Fin 1141 Out of Room 1145 An Stop 1146 Handoff to RN I completed my handoff [...] (cardiac) syringe 2 % 40 mg propofol 180 mg Lactated Ringer's (LR) infusion 0 mL * Agents Name O2 N2O Air * Blood No blood administrations on file. Lines, Drains, and Airways Type Details Placement Removal Closed/Suction/Open Drain 11/22/23; 1130; No; 1; Other (Comment) (rectum); Other (Comment) (16 fr. mushroom catheter); 16 Fr. 11/22/23 1130 by Natacha Rae RN RETIRED Surgical Site 12/10/22; 0852; Ruth-anal; 01/09/24; Removal date unknown/not present on admission 12/10/22 0852 by Adelia Justice RN 01/09/24 0000 by Nahed Thornton, SURJIT RETIRED Surgical Site 02/21/23; 0657; Rectum; 01/09/24; Removal date unknown/not present on admission 02/21/23 0657 by Pricila Joel RN 01/09/24 0000 by Nahed Thornton, SURJIT Closed/Suction/Open Drain 02/21/23; 0800; 1; Medial; Perineal; Other (Comment) (Mushroom Catheter 12 Fr. Drain); 12 Fr.; Removal date unknown/not present on admission 02/21/23 0800 by Pricila Joel RN 01/09/24 0000 by Nahed Thornton RN Closed/Suction/Open Drain 04/26/23; 0810; Buttock; 16 Fr. (mushroom cath); Removal date unknown/not present on admission 04/26/23 0810 by Du Valle RN 01/09/24 0000 by Nahed Thornton RN RETIRED Surgical Site 04/26/23; 0812; Buttocks; 01/09/24; Removal date unknown/not present on admission 04/26/23 0812 by Du Valle RN 01/09/24 0000 by Nahed Thornton RN Peripheral IV Placement Date: 11/22/23; Placement Time: 1003; Catheter Size: 22 G; Orientation: Left, Posterior; Location: Hand; Site Prep: Chlorhexidine; Insertion Attempts: 1; Patient Tolerance: Tolerated well; Removal Date: 11/22/23; Removal Time: 1224 11/22/23 1003 by Gem Baez RN 11/22/23 1224 by Natacha Burciaga RN documented in this encounter Social History [...] on file Legal Sex Male 3:11 AM SHELLFISH SHUCKER Gender Identity Not on file Sexual Orientation Not on file Occupation Industry Job Start Date Job End Date Retired Not on file Not on file Not on file documented as of this encounter OR Notes * Anesthesia Postprocedure Evaluation - Tuan Pacheco MD - 11/22/2023 2:33 PM CST Patient: Du Anderson Procedure Summary Date: 11/22/23 Room / Location: [facility] OPERATING ROOM / [facility] Operating Room Anesthesia Start: 1118 Anesthesia Stop: 1145 Procedure: EXAM UNDER ANESTHESIA - RECTUM with mushroom drain placement (Anus) Diagnosis: Non-healing surgical wound, sequela (Non-healing surgical wound, sequela [T81.89XS]) Providers: Roberto Medley MD Responsible Provider: Tuan Pacheco MD Anesthesia Type: MAC ASA Status: 3 Anesthesia Type: MAC Last vitals BP 105/76 Pulse 87 Temp 36.1 ??C (97 ??F) (Temporal) Resp (!) 6 SpO2 94% Anesthesia Post Evaluation Patient location during evaluation: PACU Patient participation: complete - patient participated Level of consciousness: follows simple commands and fully awake Pain management: adequate Airway patency: adequate Cardiovascular status: hemodynamically stable Respiratory status: acceptable and room air Hydration status: acceptable Pt is: normothermic Nausea/Vomiting status: none No notable events documented. LFISH SHUCKER * Anesthesia Preprocedure Evaluation - Tuan Pacheco MD - 11/15/2023 11:06 AM CST Images from the original note were not included. [facility] Preoperative Assessment and Planning Preoperative Evaluation Record Evaluation type/location: TPAP from [facility] Planned procedure site: [facility] OR Date: 11/15/23 NOTE: This note represents a preoperative evaluation initiated via telephone interview. NO PHYSICALEXAM was performed at the time of initial assessment. A physical exam may be added to this note anddocumented below. Anesthesia Evaluation Du Anderson is a 67 y.o. male Procedure(s): EXAM UNDER ANESTHESIA - RECTUM UNROOFING ANAL SINUS Pre-Op Diagnosis Codes: * Non-healing surgical wound, sequela [T81.89XS] HISTORY HPI 67 year old male being evaluated for EUA rectum , unroofing anal sinus for non healing wound with PMH HTN, HLD, CAD, with CRISTHIAN 2021, [...] Atrial fibrillation/flutter (on Eliquis) - Pertinent negatives: AK ; CABG ; valve replacement; arrhythmia; pacemaker/ICD; PVD; DVT/PE; bare metal stent(s) and coronary angioplasty Comments: Followed by sales service manager, Dr Bradley-- Last OV 05/2023 Respiratory + [...] provided by telephone and electronically sent via [employer]. Patient verbalized understanding of instructions. Blood bank [...] to procedure. Please call the CPAP clinic ([phone]) with any questions. The patient is on [...] Please call the CPAP chart room clinician ([phone]) to revisit risk assessment, with any questions, or to discuss alternative management plans. Similar procedure completed at [facility] 04/2023 without issues. Discussed case with CPAP attending complex hx and plan for Plavix and Eliquis. OK to proceed as planned. Preoperative evaluation performed by Toya Menon NP on 11/15/23 at 11:06 AM TPAP assessment complete . 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/26/2022 Abnormal EKG 04/19/2022 Chest pain 04/19/2022 Acute diastolic congestive heart failure (CMS/HCC) ([facility]) 04/19/2022 Low back pain, non-specific 06/08/2020 Coronary artery disease involving ho-chunk coronary artery of ho-chunk heart without angina pectoris 11/04/2015 Abnormal cardiovascular stress test 10/19/2015 Shortness of breath 10/19/2015 Hyperlipidemia 10/19/2015 Hypertension 10/19/2015 Past Medical History: Diagnosis Date Arthritis Atrial fibrillation (CMS/HCC) ([facility]) s/p cardioversion 2019-- Currently treated with Eliquis CHF (congestive heart failure) (CMS/[facility]ER[facility]) ([facility]) Coronary artery disease s/p multiple CRISTHIAN-- 04/2016 [...] 05/2018 Allergies Allergen Reactions Rosuvastatin Muscle pain Taking? Last Dose Start Date End Date Provider acetaminophen (TYLENOL) 500 mg tablet Past Month -- -- ProviderAbran MD allopurinol (ZYLOPRIM) 300 mg tablet 11/10/2023 06/01/18 -- ProviderAbran MD apixaban (ELIQUIS) 5 mg tablet 11/11/2023 07/06/20 -- Hussain Mitchell MD Take 1 tablet (5 mg total) by mouth 2 (two) times a day Patient taking differently: Take 1 tablet (5 mg total) by mouth 2 (two) times a day aspirin 81 mg enteric coated tablet Not Taking 05/30/23 05/29/24 Ari Bradley MD Take 1 tablet (81 mg total) by mouth daily Patient not taking: Reported on 11/11/2023 atorvastatin (LIPITOR) 80 mg tablet 11/11/2023 05/06/23 -- Ari Bradley MD Take 1 tablet (80 mg total) by mouth financial auditor before breakfast Notes: Requesting 1 year supply carvediloL (COREG) 6.25 mg tablet 11/11/2023 11/11/23 -- Ari Bradley MD TAKE 1 TABLET BY MOUTH TWICE DAILY WITH MEALS Patient taking differently: Take 1 tablet (6.25 mg total) by mouth 2 (two) times a day with meals Notes: Please send a replace/new response with 100-Day Supply if appropriate to maximize member benefit. Requesting 1 year supply. cholecalciferol (VITAMIN D-3) 15429 unit capsule 11/11/2023 -- -- Abran Canales MD clopidogreL (PLAVIX) 75 mg tablet 11/11/2023 09/02/23 -- Abran Canales MD dapagliflozin (FARXIGA) 10 mg tablet 11/11/2023 06/21/22 -- Ari Bradley MD Take 1 tablet (10 mg total) by mouth daily Patient taking differently: Take 1 tablet (10 mg total) by mouth financial auditor before breakfast Notes: [id number] 09/05/2024 furosemide (LASIX) 80 mg tablet 11/11/2023 12/24/22 -- Ari Bradley MD TAKE 1 TABLET BY MOUTH DAILY Patient taking differently: Take 1 tablet (80 mg total) by mouth financial auditor before breakfast Notes: Requesting 1 year supply multivitamin capsule 11/11/2023 -- -- ProviderAbran MD nitroglycerin (NITROSTAT) 0.4 mg SL tablet () -- 06/21/22 11/11/[address] 1 tablet (0.4 mg total) under the tongue every 5 (five) minutes as needed for chest pain (prn) Notes: Never taken oxyCODONE (ROXICODONE) 5 mg immediate release tablet -- 04/26/23 -- Phoenix Nathan MD Take 1 tablet (5 mg total) by mouth every 6 (six) hours as needed for pain potassium chloride ER 20 mEq CR tablet 11/11/2023 10/01/23 -- Ari Bradley MD TAKE 1 TABLET BY MOUTH TWICE DAILY Notes: Please send a replace/new response with 100-Day Supply if appropriate to maximize member benefit. Requesting 1 year supply. sacubitriL-valsartan (ENTRESTO) 24-26 mg tablet 11/11/2023 05/16/23 -- Ari Bradley MD Take 1 [...] (COREG) 6.25 mg tablet cholecalciferol (VITAMIN D-3) 88181 unit capsule clopidogreL (PLAVIX) 75 mg tablet dapagliflozin (FARXIGA) 10 mg tablet furosemide (LASIX) 80 mg tablet multivitamin capsule nitroglycerin (NITROSTAT) 0.4 mg SL tablet oxyCODONE (ROXICODONE) 5 mg immediate release tablet potassium chloride ER 20 mEq CR tablet sacubitriL-valsartan (ENTRESTO) 24-26 mg tablet aspirin 81 mg enteric coated tablet Social History Tobacco Use Smoking Status Never Passive exposure: Never Smokeless Tobacco Never Alcohol Use: Not At Risk (11/11/2023) AUDIT-C Frequency of Alcohol Consumption: 2-4 times [...] Brother Hypertension Brother Anesthesia problems Neg Hx Relevant diagnostics: ECG(s): N/A Echocardiogram(s):07/20/2022 SUMMARY: LA is markedly dilated. Normal RV cavity size. LV cavity size is normal. Normal LV wall thickness/mass. Mild LV global hypokinesis. Normal Inferior vena cava. Normal aorta. No AR seen, Mild MR, no , no MS, mild TV regurgitation, normal PV.Diastolic function: indeterminate.LVEF 45%. Stress test(s): N/A Cardiac catheterization(s): 04/25/2022 [facility] RESULTS: - Interventional Comments Right [...] PFT(s): N/A Vascular studies: N/A Other: N/A There were no vitals filed for this visit. PT: No results found for requested labs [...] within last 30 days. Dawson index score: 100 DOS Physical Exam Medical history, medications, and allergies reviewed. Attestation: This PAT evaluation 11/22/2023. Airway Exam: Mallampati: II Cervical ROM: FROM Cardiovascular Exam: Rate: regular Rhythm: irregular Pulmonary Exam: LCTA, bilat EENT Exam: trachea midline Dental Exam: Appears intact Skin Exam: Skin is warm. Abdominal Exam: Abdomen is soft. Current state: Patient's current state is cooperative and interactive. Anesthesia Plan ASA 3 My patient is approved for the Anesthesia Controlled Medication protocol when under care of a ENVIRONMENTAL PROTECTION SPECIALIST Planned anesthesia: MAC Induction: Induction: intravenous. Postoperative Plan: No plan for postoperative opioid use. No postoperative mechanical ventilation intended. Patient's planned disposition post procedure is Outpatient. Informed Consent: Discussed plan with ENVIRONMENTAL PROTECTION SPECIALIST. Anesthesia plan and risks discussed with patient. Consent and Attending signature: I and/or my designee have discussed the anesthesia plan, benefits, possible alternatives, parental presence at time of induction (if indicated), and clinically relevant risks that may include dental injury, unintentional awareness, and/or other complications. The patient and/or parent/legal guardian understand, and agree to proceed. All questions answered. LFISH SHUCKER LFISH SHUCKER documented in this encounter Plan of Treatment Not on file documented as of this encounter Visit Diagnoses Not on filedocumented in this encounter Administered Medications Inactive Administered Medications - up to 3 most recent administrations Medication Order MAR Action Action Date Dose Rate Site Lactated Ringer's (LR) infusion 30 mL/hr, intravenous, Continuous, Starting on Sat11/22/23 at 1015, Pre-Op Rate/Dose Change 11/22/2023 11:20 AM SHELLFISH SHUCKER 30 mL/hr Rate/Dose Verify 11/22/2023 11:18 AM SHELLFISH SHUCKER 30 mL/ hr New Bag 11/22/2023 10:06 AM SHELLFISH SHUCKER 30 mL/hr 30 mL/hr lidocaine (cardiac) (XYLOCAINE) preservative free injection intravenous, As needed, Starting on Sat11/22/23 at 1120, Anesthesia Intra-op, Indications: Ventricular ArrhythmiasIndications:Ventricular Arrhythmias Given 11/22/2023 11:20 AM SHELLFISH SHUCKER 40 mg propofoL (DIPRIVAN) 10 mg/mL IV intravenous, As needed, Starting on Sat11/22/23 at 1120, Anesthesia Intra-op Bolus 11/22/2023 11:31 AM SHELLFISH SHUCKER 40 mg Bolus 11/22/2023 11:25 AM SHELLFISH SHUCKER 40 mg New Bag 11/22/2023 11:20 AM SHELLFISH SHUCKER 100 mg documented in this encounter Care Teams Operations Officer Relationship Specialty Start Date End Date Gianluca Price MD PCP - General 06/18/17 Ayden Corona DO [address] [place] [address] Referring Physician Surgery 10/29/22 Roberto Medley MD [phone] [place] [address] Surgeon Colon and Rectal Surgery 11/23/22 documented as of this encounter
--- OUTSIDE RECORDS SUMMARY | 2024-10-05 02:50 | XMS_ITS | Encounter Summary ---
Author Organization [facility] Address [address] [place] [address] Phone Care Team Providers Care Stull Installer Name Role Phone Gianluca Price MD Primary Care Provider Ayden Corona DO Unavailable [phone] Roberto Medley MD Unavailable [phone] Reason for Visit * Reason Onset Date Comments Procedure 11/25/2023 Encounter Details Date Type Department Care Team (Late st Contact Info) Description 11/25/2023 Telephone [facility] Department of Surgery, Section of Colon and Rectal Surgery [address] [facility] [address] [facility] [address] [facility] [address], [place] [address] Wilda Galarza, RMA Procedure Social History Tobacco Use Types Packs/Day Years [...] on file Legal Sex Male 3:11 AM TISSUE INSERTER Gender Identity Not on file Sexual Orientation Not on file Occupation Industry Job Start Date Job End Date Retired Not on file Not on file Not on file documented as of this encounter Miscellaneous Notes * Telephone Encounter - Wilda Galarza, [facility] - 11/25/2023 12:46 PM TISSUE INSERTER Spoke to patient scheduling surgery. Patient verbalized understanding and is in agreement with details listed below. Date: 01/09/2024 Time: 9:30 am Location: [facility], report to Main Entrance. Prep: Miralax/Duloclax. Antibiotics: Flagyl and Neomycin Immunonutrition: OTC boost, ensure, or carnation instant breakfast Carbohydrate: 2 bottles of Gatorade or Powerade the evening before, and 1 bottle morning of surgerytwo hours prior to arrival time. Cysto/Stent placement: No Prep for case started: Yes Case message sent to RN: Yes Case message sen to research: Yes Post op appointment scheduled: Yes Patient Journey Guide given: mychart Ostomy Kit given: No UE INSERTER documented in this encounter Plan of Treatment Not on file documented as of this encounter Visit Diagnoses Not on filedocumented in this encounter Care Teams Stull Installer Relationship Specialty Start Date End Date Gianluca Price MD PCP - General 06/18/17 Ayden Corona DO [address] [place] [address] Referring Physician Surgery 10/29/22 Roberto Medley MD [phone] [place] [address] Surgeon Colon and Rectal Surgery 11/23/22 documented as of this encounter
--- OUTSIDE RECORDS SUMMARY | 2024-10-05 02:50 | XMS_ITS | Encounter Summary ---
Author Organization [facility] Address [address] [place] [address] Phone Care Team Providers Care Apprentice Machinist Outside Name Role Phone Gianluca Price MD Primary Care Provider Ayden Corona DO Unavailable [phone] Roberto Medley MD Unavailable [phone] Reason for Visit * Reason Onset Date Comments Med Samples 09/02/2023 Eliquis, Entrest o and Farxiga Encounter Details Date Type Department Care Team (Late st Contact Info) Description 09/02/2023 Telephone [facility] Cardiology [address] [facility] [address] [place] [address] Ari Bradley MD [address] [facility] [address] [place] [address] Med Samples (Eliquis, Entresto and Farxiga) Social History Tobacco Use Types Packs/Day Years [...] on file Legal Sex Male 3:11 AM AIRCRAFT FUSELAGE FRAMER Gender Identity Not on file Sexual Orientation Not on file Occupation Industry Job Start Date Job End Date Retired Not on file Not on file Not on file documented as of this encounter Miscellaneous Notes * Telephone Encounter - Sydney Nunez RN - 09/02/2023 11:10 PM AIRCRAFT FUSELAGE FRAMER Per pt's portal message, the following samples set aside for the pt to hand picker at [facility] on 09/06/23: Eliquis 5 mg #: 56 LOT: [id number] Exp: 05/06/2025 Entresto mg #: 56 LOT: [id number] Exp: 01/28/2026 Farxiga 10 mg #: 28 LOT: [id number] Exp: 03/06/2026 RAFT FUSELAGE FRAMER documented in this encounter Plan of Treatment Not on file documented as of this encounter Visit Diagnoses Not on filedocumented in this encounter Care Teams Apprentice Machinist Outside Relationship Specialty Start Date End Date Gianluca Price MD PCP - General 06/18/17 Ayden Corona DO [address] [address] Referring Physician Surgery 10/29/22 Roberto Medley MD [address] [facility] [phone] [place] [address] Surgeon Colon and Rectal Surgery 11/23/22 documented as of this encounter
--- OUTSIDE RECORDS SUMMARY | 2024-10-05 02:50 | XMS_ITS | Encounter Summary ---
Author Organization [facility] Address [address] [place] [address] Phone Care Team Providers Care Window And Siding Craftsman Name Role Phone Gianluca Price MD Primary Care Provider Ayden Corona DO Unavailable [phone] Roberto Medley MD Unavailable [phone] Reason for Visit * Reason Onset Date Comments Surgery Confirmation 11/21/2023 Encounter Details Date Type Department Care Team (Late st Contact Info) Description 11/21/2023 Telephone [facility] Surgery [address] [facility] 2nd Floor [address] [place] [address] Wilda Galarza, [facility] Surgery Confirmation Social [...] on file Legal Sex Male 3:11 AM ADJUSTER ARBITRATOR Gender Identity Not on file Sexual Orientation Not on file Occupation Industry Job Start Date Job End Date Retired Not on file Not on file Not on file documented as of this encounter Miscellaneous Notes * Telephone Encounter - Wilda Galarza RMA - 11/21/2023 11:09 AM ADJUSTER ARBITRATOR Spoke to patient and confirmed prep and surgery. Prep: NPO after midnight Patient was reminded they need a jinriksha driver Confirmed arrival time of 9:00 am at [facility], report to 1st floor [address]. STER ARBITRATOR documented in this encounter Plan of Treatment Not on file documented as of this encounter Visit Diagnoses Not on filedocumented in this encounter Care Teams Window And Siding Craftsman Relationship Specialty Start Date End Date Gianluca Price MD PCP - General 06/18/17 Ayden Corona DO [address] [address] Referring Physician Surgery 10/29/22 Roberto Medley MD [id number] [place] [address] Surgeon Colon and Rectal Surgery 11/23/22 documented as of this encounter
--- OUTSIDE RECORDS SUMMARY | 2024-10-05 02:50 | XMS_ITS | Encounter Summary ---
Author Organization [facility] Address [address] [place] [address] Care Team Providers Care Senior Net Web Developer Name Role Phone Gianluca Price MD Primary Care Provider ChloeAyden DO Unavailable [phone] Roberto Medley MD Unavailable [phone] Reason for Visit * Auth/Cert (Routine) Specialty Diagnoses / Procedures Referred By Contac t Referred To Contact Diagnoses Non-healing surgical wound, sequela Non-healing surgical wound, sequela [T81.89XS] Procedures KS ANRCT XM SURG REQ ANES GENERAL SPI/EDRL DX KS INCISION & DRAINAGE ABSCESS COMPLICATED/MULTIPLE EXAM UNDER ANESTHESIA - RECTUM UNROOFING ANAL SINUS Referral ID Status Reason Start Date Expiration Date Visits Re quested Visits Authorized [id number] 1 1 Encounter Details Date Type Department Care Team (Latest Contact Info) Description 11/22/2023 8:55 AM HORTICULTURE SUPERVISOR - 11/22/2023 12:50 PM HORTICULTURE SUPERVISOR Hospital Encounter [facility] Surgery at [facility] [address] [place] [address] Roberto Medley MD [address] [facility] [id number] [place] [address] Discharge Disposition: Discharge to home or self [...] on file Legal Sex Male 3:11 AM HORTICULTURE SUPERVISOR Gender Identity Not on file Sexual Orientation Not on file Occupation Industry Job Start Date Job End Date Retired Not on file Not on file Not on file documented as of this encounter Last Filed Vital Signs Vital Sign Reading Time Taken Comments Blood Pressure 105/76 11/22/2023 12:05 PM HORTICULTURE SUPERVISOR Pulse 87 11/22/2023 12:05 PM HORTICULTURE SUPERVISOR Temperature 36.1 ??C (97 ??F) 11/22/2023 11:47 AM HORTICULTURE SUPERVISOR Respiratory Rate 6 11/22/2023 12:05 PM HORTICULTURE SUPERVISOR Oxygen Saturation 94% 11/22/2023 12:05 PM HORTICULTURE SUPERVISOR Inhaled Oxygen Concentration - - Weight 153.3 kg (338 lb) 11/22/2023 9:57 AM HORTICULTURE SUPERVISOR Height 195.6 cm (6' 5 ) 11/22/2023 9:57 AM HORTICULTURE SUPERVISOR Body Mass Index 40.08 11/22/2023 9:57 AM HORTICULTURE SUPERVISOR documented in this encounter Discharge Instructions * Discharge Instructions* Sandeep Bueno MD - 11/22/2023 11:43 AM HORTICULTURE SUPERVISOR COLON AND RECTAL SURGERY Post-Operative Instructions for [...] daily or as needed. If prescribed Percocet, [place], Tylenol #3, or any agent containing acetaminophen [...] Office for All Questions and Concerns Office: [phone] (Saturday - Saturday, 8am to 4pm) Exchange: [phone] (after hours, holidays and weekends) ICULTURE SUPERVISOR * Attachments The following attachments cannot be sent through Care Everywhere. * [facility] PATHWAY TO EXCELLENT CARE AFTER SURGERY documented in this encounter Medications at Time of Discharge acetaminophen (TYLENOL) 500 mg tablet Take 2 tablets (1,000 mg total) by mouth every 6 (six) hours as needed for pain allopurinol (ZYLOPRIM) 300 mg tabletIndication s:prevention of acute gout attack Take 1 tablet (300 mg total) by mouth nightly 06/01/2018 cholecalciferol (VITAMIN D-3) 67527 unit capsuleIndicatio ns:supplement Take 1 capsule (10,000 Units total) by mouth convention worker before breakfast multivitamin capsuleIndicatio ns:Vitamin Deficiency Prevention Take 1 capsule by mouth convention worker before breakfast apixaban (ELIQUIS) 5 mg tablet Take 1 tablet (5 mg total) by mouth 2 (two) times a day 60 tablet 3 07/06/2020 4 atorvastatin (LIPITOR) 80 mg tabletIndication s:hyperlipidemia Take 1 tablet (80 mg total) by mouth convention worker before breakfast 90 tablet 3 11/18/2023 4 [...] Roberto Medley MD at 11/22/2023 11:08 AM HORTICULTURE SUPERVISOR ICULTURE SUPERVISOR ICULTURE SUPERVISOR Source Note - Roberto Medley MD - 11/08/2023 12:45 PM HORTICULTURE SUPERVISOR Established Patient Follow-up Visit Interval History: The [...] created in part with the assistance of Door 6 voice recognition software. Mailer Apprentice variances and error may occur. Not every sentence has been reviewed in its entirety. For questions about the documentation above, please contact Dr. Medley. ICULTURE SUPERVISOR documented in this encounter Miscellaneous Notes * Perioperative Nursing Note - Natacha Rae RN - 11/22/2023 11:40 AM HORTICULTURE SUPERVISOR 4x4 gauze and tape applied post op ICULTURE SUPERVISOR * Op Note - Roberto Medley MD [...] the entire procedure from start to finish ICULTURE SUPERVISOR * Pre-Procedure Instructions - Toya Menon NP - 11/14/2023 2:10 PM [facility] Clinic Location: [facility] The night before your surgery: * Do [...] Take morning of surgery cholecalciferol (VITAMIN D-3) 77398 unit capsule Don't take on day of [...] with COVID-19. You test positive for COVID-19. ICULTURE SUPERVISOR * Perioperative Nursing Note - Desi Donald RN - 11/11/2023 2:43 PM [facility] Perioperative Nursing Note Telephone Preoperative Evaluation ([facility]) - TELEPHONE ONLY, NO PHYSICAL EXAM [...] 1 tablet (80 mg total) by mouth convention worker before breakfast 90 tablet 3 carvediloL (COREG) 6.25 mg tablet TAKE 1 TABLET BY MOUTH TWICE DAILY WITH MEALS (Patient taking differently: Take 1 tablet (6.25 mg total) by mouth 2 (two) times a day with meals) 200 tablet 2 cholecalciferol (VITAMIN D-3) 76550 unit capsule Take 1 capsule (10,000 Units total) by mouth earlymorning before breakfast clopidogreL (PLAVIX) 75 mg tablet Take 1 tablet (75 mg total) by mouth every morning dapagliflozin (FARXIGA) 10 mg tablet Take 1 tablet (10 mg total) by mouth daily (Patient taking differently: Take 1 tablet (10 mg total) by mouth convention worker before breakfast) 14 tablet 0 furosemide (LASIX) 80 mg tablet TAKE 1 TABLET BY MOUTH DAILY (Patient taking differently: Take 1 tablet (80 mg total) by mouth convention worker before breakfast) 100 tablet 2 multivitamin capsule Take 1 capsule by mouth convention worker before breakfast nitroglycerin (NITROSTAT) 0.4 mg SL [...] a day) 180 tablet 3 Implants Stent [employer] Chris Synergy Xd 4mm 48mm System Coronary Stent Everolimus [id number] - [id number] - [id number] - Implanted (Right) Coronary Artery Inventory item: [employer] CH[employer] SYNERGY XD 4MM 48MM SYSTEM CORONARY STENT EVEROLIMUS [id number] Model/Cat number: [id number] Serial number: [id number] Registered Radiographer: [employer] Lot number: [id number] As of 04/25/2022 Status: Implanted SKIN Piercings Remaining: No Wound (LDAs) Type of Wound (LDA): (denies) SCREENINGS Dawson index score: 100 NUTRITION PATIENT CARE PLANNING Advance Directives (For Healthcare) Advance Directive: Patient does not have advance directive Communication/Estimator Printing Plate Making Needs Communication Barriers: Visual Communication Needs: Glasses Assistive Devices/DME: Eyeglasses, CPAP/BiPAP, Cane, Motorized scooter Discharge Planning Type of Residence: Private residence Living Arrangements: Spouse/significant other Support Systems: Spouse/significant other Patient expects to be discharged to:: Private residence CLINICAL TECHNOLOGIST NO ADDITIONAL COMMENTS/ FOLLOW UP ICULTURE SUPERVISOR * Pre-Procedure Instructions - Desi Donald RN [...] remove nail coverings, artificial nails and nail sao tomean prior to the day of surgery. You should leave your valuables and any jewelry at home. No metal or piercings are allowed in the operating room. You should bring your insurance card, a photo ID (example: Medical Device Sales's License) and a method of payment for [...] Chart. If you are having surgery at [facility], please arrive on the day of [...] Pathway to Excellent Care by the followinglink: [email or web address] How To Prepare Your Skin For Surgery [...] Remove nail coverings, artificial nails and nail sao tomean. Place clean linens on your bed the [...] questions, please call the CPAP Staff at [phone], Saturday-Saturday 8am-4:30pm. All patients should read the below section: COVID 19 Updates & Visitor Policy: Please access [email or web address] for the most updated information. Information on [facility] & the [facility] Center: Please view [email or web address] (Patient & Visitor Information) for additional details regarding Advanced Directive forms, AWARE, directions, parking information, lodging, Internet access, dining and more. Information on [facility] or [facility] ([facility]): Please view [email or web address] (Patient and Visitor Information) for parking/directions and more. For MyChart information, to activate account or password recovery, please go to [email or web address] or call [phone] (toll-free: [phone]), Sat- Saturday 8am-5pm. Information for Suicide Prevention: National Suicide Prevention Lifeline (8-054- 473-XXNP (0237)) or call or text 554. Chat resources: Brainient.org. Surgery Times: For patients having surgery @ [facility] or [facility] ([facility]), if your surgeon's office has not notified you of your surgery time by NOON THE BUSINESS DAY BEFORE your surgery, please call [phone] and ask for your surgeon's office [facility] (CPAP) does not provide arrival times for the day of surgery or provide the duration of surgery. This information is provided by your surgeon'soffice or by the center where you are having surgery. We appreciate your understanding. ICULTURE SUPERVISOR documented in this encounter Plan of Treatment Not on file documented as of this encounter Procedures Procedure Name Priority Date/Time Associated Diagnosis Comments EXAM UNDER ANESTHESIA - RECTUM 11/22/2023 11:18 AM HORTICULTURE SUPERVISOR Non-healing surgical wound, sequela documented in this encounter Visit Diagnoses Diagnosis Surgical wound, non healing- Primary Non-healing surgical wound documented in this encounter Admitting Diagnoses Diagnosis Surgical wound, non healing Non-healing surgical wound documented in this encounter Administered Medications Inactive Administered Medications - up to 3 most recent administrations Medication Order MAR Action Action Date Dose Rate Site acetaminophen (TYLENOL) tablet 1,000 mg 1,000 mg, oral, Once, On Sat11/22/23 at 1015, For 1 dose, Pre-Op, Indications: Pre-Emptive AnalgesiaIndications:Pre-Emp tive Analgesia Given 11/22/2023 10:04 AM HORTICULTURE SUPERVISOR 1,000 mg Carrier Fluids for Secondary Infusion [...] give in pre-op. Thanks!, Indications: gastroesophageal reflux diseaseIndications:gastroeso phageal reflux disease Given 11/22/2023 10:04 AM HORTICULTURE SUPERVISOR 20 mg Lactated Ringer's (LR) infusion 30 mL/hr, intravenous, Continuous, Starting on Sat11/22/23 at 1015, Pre-Op Lactated Ringer's (LR) infusion 30 mL/hr, intravenous, Continuous, Starting on Sat11/22/23 at 1015, Pre-Op Rate/Dose Change 11/22/2023 11:20 AM HORTICULTURE SUPERVISOR 30 mL/hr Rate/Dose Verify 11/22/2023 11:18 AM HORTICULTURE SUPERVISOR 30 mL/ hr New Bag 11/22/2023 10:06 AM HORTICULTURE SUPERVISOR 30 mL/hr 30 mL/hr sodium chloride 0.9% flush 0.5-20 mL 0.5-20 mL, intra-catheter, As needed, line care, Starting on Sat11/22/23 at 0943, Pre-Op, Flush volume based on line type and size. Flush before and after each use. documented in this encounter Discontinued Medications Medication [...] Recently Administered Medications Times are shown in HORTICULTURE SUPERVISOR. Scheduled Medication Order 11/20/2023 11/21/2023 11/22/2023 acetaminophen [...] Count Last Ordered Date First Ordered Date BUPivacaine (MARCAINE) 0.25 % (2.5 mg/mL) preservative free injection 1 11/22/2023 Carrier Fluids for Secondary Infusion - 0.9% Sodium Chloride 1 11/22/2023 fentaNYL (SUBLIMAZE) preserv ative free syringe 50 mcg 1 11/22/2023 hydrALAZINE (APRESOLINE) injection 5 mg 1 0 11/22/2023 HYDROmorphone (DILAUDID) injection 0.2 mg 1 11/22/2023 HYDROmorphone (DILAUDID) injection 0.4 mg 1 11/22/2023 labetaloL (NORMODYNE,TRANDAT E) injection 5 mg 1 11/22/2023 Lactated Ringer's (LR) infusion 1 4 lidocaine PF (XYLOCAINE) 10 mg/mL (1 %) preservative free injection 2-10 mg 1 11/22/2023 naloxone (NARCAN) 0.4 mg/mL injection 0.04-0.4 mg 1 11/22/2023 ondansetron (ZOFRAN) injection 4 mg 1 11/22 oxyCODONE (ROXICODONE) tablet 5 mg 1 2023 prochlorperazine (COMPAZINE) injection 5 mg 1 11/22/2023 sodium chloride 0.9% flush 0.5-20 mL 3 11/07 sodium chloride 0.9% irrigation 1 4 sterile water irrigation 1 11/22/2023 documented in this encounter Care Teams Senior Net Web Developer Relationship Specialty Start Date End Date Gianluca Price MD PCP - General 06/18/17 Ayden Corona DO [address] [address] Referring Physician Surgery 10/29/22 Roberto Medley MD [phone] [place] [address] Surgeon Colon and Rectal Surgery 11/23/22 documented as of this encounter
--- OUTSIDE RECORDS SUMMARY | 2024-10-05 02:51 | XMS_ITS | Encounter Summary ---
Author Organization [facility] Healthcare Address [address] [place] [address] Care Team Providers Care Application Packaging Specialist Name Role Phone Gianluca Price MD Primary Care Provider Reason for Visit * Consultation (Routine) - Closed Specialty Diagnoses / Procedures Referred By Contac t Referred To Contact Occupational Therapy Diagnoses Spinal stenosis, lumbar region without neurogenic claudication Gianluca Price MD [address] [address] Phone: tel: fax: [address] [phone] Referral ID Status Reason Start Date Expiration Date V isits Requested Visits Authorized [id number] Closed Specialty Services Required 05/17/2022 06/16/2023 24 24 Encounter Details Date Type Department Care Team (Late st Contact Info) Description 06/25/2022 2:00 PM CDT Therapy [facility] Occupational Therapy [address] [place] [id number] Joby Hunter OT Spinal stenosis, lumbar region without neurogenic claudication Social History Tobacco Use Types Packs/Day Years Used Date Smoking Tobacco: Never Smokeless Tobacco: Never Alcohol Use Standard Drinks/Week Comments Yes 0 (1 standard drink = 0.6 oz pur e alcohol) Occasionally AUDIT-C Answer Date Recorded Q1: How often do you have a drink containing alc ohol? 2-3 times a week 04/25/2022 Q2: How many drinks containi ng alcohol do you have on a typical day when you are drinking? 1 or 2 04/25/2022 Q3: How often do you have si x or more drinks on one occasion? 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 Time in: 14:00 Time out: 2:54 PM [facility] [id number] ([id number]) [id number] Seating/Mobility Evaluation To be completed by Swedger or Physical/Occupational Therapist In Association With Mobility Device Specialist PATIENT INFORMATION: Name:Du Anderson : 1955 Sex: M Evaluation Date:06/25/22 Address: [address] [place] [id number] Physician: Gianluca Price MD Mobility Device Therapist: License #: Phone #: This form will serve as the LMN for the following suppliers: Primary:[employer] Contact Name:Praneeth Bonilla Phone #:[phone] Phone #: [phone] Mobility Device Specialist: Title & Phone#: [employer] Program or 2nd Supplier: Contact Name: Phone #: Spouse / Parent / Caregiver / Guardian Name: Apoorva Anderson Relationship:(Spouse) Phone #: [phone] (Home Phone) Primary Therapist: Joby Hunter OT Phone #: Insurance / Payer: [facility] Medicare Patient Recipient #: Reason for Referral: Mobility Evaluation Patient Goals: Improve independence with MRADLs Caregiver Goals and Specific Limitations that May Effect Care: MEDICAL HISTORY: Primary Diagnosis: lumbar spinal Stenosis with h/o laminectomy and fusion 2013, with subsequent sharp pain with long periods of standing and walking. Pt reports he gets epidurals but they are not effective Onset: 2013 Secondary Diagnoses : LT olecranon bursitis, enthesopathy of hip region, sleep apnea, h/o LT ulnar nerve entrapment, bilateral total hip and knee replacements, Coronary Artery Dissease, essential hypertension, chronic lower extremity venous stasis changes, gout, Complex coronary disease. PCI of trifurcating left main circumflex, inferior ramus, superior ramus, and ostial LAD in a staged manner with multiple CRISTHIAN stents in 2015, Ischemic Cardiomyopathy, mild MR by Echo on 04/06/2022, Atrial fibrillation. [X] Progressive Disease Relevant Past and Future Surgeries:bilateral total hip and knee replacements, multiple cardiac stents, lumbar laminectomy and fusion Height: 6'5 Weight: 348# Describe Changes Past 2-5 years - Include Seating Measurements If Relevant: pt reports fluctuationsbetween 5-10 pounds due to water weight and changes in diet. Cardio Status: Functional Limitations: shortness of breath and fatigue with activity [ ] Intact [ X ] Impaired [ ] Severely Impaired Respiratory Status: Functional Limitations: shortness of breath and fatigue with activity [ ] Intact [ X ] Impaired [ ] Severely Impaired Orthotics: N/A Amputee [ ] Yes [X ] No HOME ENVIRONMENT: [ X] House [ ] Condo / Town Home [ ] Apartment [ ] Asst Living [ ] LTCF [ X] Own [ ] Rent [ ] Lives Alone [ X] Lives with Others (Who?): Hours with caregiver: always available if needed Home is Accessible to Equipment Storage of Wheelchair: [ X ] In Home [ ] Other: Stairs: [ ] Yes [ X] No level entry Ramp: [ ] Yes [ X] No Comments:(Describe management of equipment if stairs present - Describe security of Storage if Other is Checked) COMMUNITY ADL: TRANSPORTATION: [X ] Car [ ] Van [ ] Public Transportation [ ] Adapted W/C Lift [ ] Ambulance [ ] Other: drives small SUV [ ] Sits in Wheelchair During Transport Where is W/C Stored During Transport? In back of car [place] [ ] Yes [X] No [X ] Self Rail Car Painter/Sandblaster Drive While in Wheelchair [ ] Yes [ X ] No Employment: retired, patient states he retired early due to back pain Specific Requirements Pertaining to Mobility: School:N/A Specific Requirements Pertaining to Mobility: Other: FUNCTIONAL/SENSORY PROCESSING SKILLS: Handedness: [ X ] Right [ ] Left Comments: Visual Acuity is Adequate For Safe Wheelchair Operation: [X] Yes [ ] No Processing Skills are Adequate for Safe Wheelchair Operation: [ X ] Yes [ ] No Comments - Describe Limitations: COMMUNICATION: Verbal Communication [ X ] WFL Receptive [X ] WFL Expressive [ X] Understandable [ ] Difficult to Understand [ ] Non-Communicative [ ] Uses an Augmentative Communication Device - Special Agent Fbi/Model : AAC Mount Needed: SENSATION and SKIN ISSUES: Sensation [ ] Intact [ X ] Impaired [ ] Absent [ ] Hyposensate [ ] Hypersensate [ ] Defensiveness Level of sensation: reports numbness and shooting sensation to bilateral LE's with prolonged standing and walking, intact sensation to buttocks and hands Pressure Relief: Able to Perform Effective Pressure Relief : [ X] Yes [ ] No Method: If not, Why?: Skin Issues/Skin Integrity Current Skin Issues [ ] Yes [ X] No [ ] Intact [ ] Red Area [ ] Open Area [ ] Scar Tissue [ ] At Risk from Prolonged Sitting Where: History of Skin Issues [ ] Yes [ X] No Where: When: Hx of Skin Flap Surgeries [ ]Yes [ X] No Where: When: Complaint of Pain: (Describe Location, Severity (Scale 1-10), Acute or Chronic, And How It Interferes With Ability To Operate Equip.): pt reports no pain while at rest, does report pain at a level of 5-8/10 with walking, pain progressively worsens with increased time walking/standing ADL STATUS (In Reference to Wheelchair Use): Indep Assist Unable Indep with Equipment Not assessed Comments Dressing X Independent with dressing utilizing adaptive equipment Eating X Describe Oral Motor Skills: Grooming/Hygiene X Meal Prep X assists with all meal prep and homemaking tasks IADLS X Bowel Mngmnt: [ X] Continent [ ] Incontinent [ ] Accidents Comments: Bladder Mngmnt: [X ] Continent [ ] Incontinent [ ] Accidents Comments: CURRENT SEATING / MOBILITY: Current Mobility Base: [ ] None [ ] Dependent [ ] Dependent with Tilt [ ] Manual [ X ] Scooter [ ] Power Type of Control: Special Agent Fbi: Size: Model: Serial #: Pediatric [ ] Adult [ ] Color: Age: Current Condition of Mobility Base: Current Seating System: Age of Seating System: COMPONENT FIREARMS ASSEMBLY SUPERVISOR/CONDITION Seat Base Cushion Back Lateral Trunk Supports Thigh Support Knee Support Foot Support Foot Strap Head Support Pelvic Stabilization Anterior Chest Shoulder Support UE support Other (Tilt/Recline, etc) When Relevant: Overall Seat Height: Overall W/C Length: Overall W/C Width: Describe Posture in Present Seating System: Number of Hours/Day Spent in Wheelchair? Mr. Anderson states he currently spends most time seated and cannot tolerate long periods of standing WHEELCHAIR SKILLS: (Shown by Trial) PT. IS TOTALLY DEPENDENT FOR MOBILITY YES [ ] NO [ ] Indep Assist Dependent/ Unable N/A Comments Bed<->W/C Chair Transfers X Forward flexed posture, antalgic gait using single point cane W/C<->Commode Transfers X Manual W/C Propulsion: [ ] UE or LE Strength and Endurance Sufficient to Participate in ADLs using Manual Wheelchair Arm: [ ] Left [ ] Right [ ] Both Foot: [ ] Left [ ] Right [ ] Both Bilateral LE strength is not sufficient for w/c propulsion, Left arm strength and endurance is lacking due to Left ulnar nerve entrapment and olecranon bursitis Operate Scooter: [ X ] Strength, Hand Textile Broker, Balance, Transfer Appropriate for Use [ X] Living Environment Appropriate for Scooter Use Mr. Anderson reports that his current scooter fits throughout his home. Indep Assist Dependent/ Unable N/A Comments Operate Power W/C: Std. Joystick [ ] Safe [ ] Functional Distance: Operate Power W/C: W/Alternative Controls [ ] Safe [ ] Functional Distance: MOBILITY/BALANCE: Balance Balance Transfers Ambulation Sitting Balance Standing Balance [ X] Independent [ ] Independent [ X] WFL [ ] WFL [ ] Min Assist [ ] Ambulates with Assist [ ] Uses UE for Balance in Sitting [ X ] Min Assist [ ] Mod Assist [ ] Ambulates with Device [ ] Min Assist [ ] Mod Assist [ ] Max Assist [ X ] Indep Short Distance Only [ ] Mod Assist [ ] Max Assist [ ] Dependent [ ] Unable to Ambulate [ ] Max Assist [ ] Unable [ ] Sliding Board [ ] Unable [ ] Lift / Sling Required Comments: Able to ambulate limited distances due to progressive LE numbness and back pain with standing and ambulation. MAT EVALUATION: Measurements in Sitting: Left Right Measurments in Sitting: A: Shoulder Width H: Seat to Top of Shoulder B: Chest Width I: Acromion Process C: Chest Depth (Front - Back) J: Inferior Angle of Scapula D: Hip Width K: Seat to Elbow E: Between Knees L: Seat to Iliac Crest F: Top of Head M: Upper leg length G: Occiput N: Lower leg length ++ Overall Width (asymmetrical width for windswept legs or scoliotic posture O: Foot Length Additional Comments: Hamstring flexibility: Pelvis to thigh angle [ ] accommodate greater than 90 Thigh to calf angle [ ] accommodate less than 90 DESCRIBE REFLEXES/TONAL INFLUENCE ON BODY: EXPLAIN WHY PATIENT IS NON-AMBULATORY: POSTURE: COMMENTS: PELVIS [ X ] [ ] [ ] Neutral Posterior Anterior [ ] Fixed [ ] Other [ ] Partly Flexible [ ] Flexible [ X ] [ ] [ ] WFL R elev L elev [ ] Fixed [ ] Other [ ] Partly Flexible [ ] Flexible PELVIS [ X ] [ ] [ ] WFL Right Left Anterior Anterior [ ] Fixed [ ] Other [ ] Partly Flexible [ ] Flexible TRUNK [X] [ ] [ ] WFL [employer]. [employer]. Lumbar Kyphosis Lordosis [ ] Fixed [ ] Flexible [ ] Partly Flexible [ ] Other [X] [ ] [ ] WFL Convex Convex Left Right [ ] c-curve [ ] s-curve [ ] multiple [ ] Fixed [ ] Flexible [ ] Partly Flexible [ ] Other TRUNK [X] Neutral [ ] Left-anterior [ ] Right-anterior [ ] Fixed [ ] Flexible [ ] Partly Flexible [ ] Other Describe LE Neurological Influence/Tone: WNL POSTURE: COMMENTS: HIPS [ X ] [ ] [ ] Neutral ABduct Adduct [ ] Fixed [ ] Subluxed [ ] Partly Flexible [ ] Dislocated [ ] Flexible [ X ] [ ] [ ] Neutral Right Left [ ] Fixed [ ] Other [ ] Partly Flexible [ ] Flexible HIPS Hip Flexion / Extension Limitations: WFL HIPS Hip Internal / External Range of Motion Limitations: WFL KNEES & FEET Knee ROM: Left Right [ X ] WFL [ X] WFL [ ] Limitations [ ] Limitations History of bilateral knee replacements Foot Positioning: [ X ] WFL [ ] L [ ] R ROM concerns: Dorsiflexed [ ] L [ ] R Plantarflexed [ ] L [ ] R Inversion [ ] L [ ] R Eversion [ ] L [ ] R POSTURE: COMMENTS: HEAD & NECK [ ] Functional [ X ] Flexed [ ] Extended [ ] Rotated L [ ] Lat Flexed L [ ] Rotated R [ ] Lat Flexed R [ ] Cervical Hyperextension [ X ] Good Head Control [ ] Adequate Head Control [ ] Limited Head Control [ ] Absent Head Control Describe Tone / Movement Of Head And Neck: Forward flexed in sitting and standing but able to correct UPPER EXTREMITY SHOULDERS Left Right [X] Functional [X] Functional [ ] Elev / Dep [ ] Elev / Dep [ ] Pro-retract [ ] Pro-retract [ ] Subluxed [ ] Subluxed ROM for Upper Extremity [ ] WNL [ X ] WFL Limitations: UE Strength (4/5): [ ] N/A [ ] None [ ] Concerns: Describe Tone / Movement Of UE: UPPER EXTREMITY ELBOWS Left 0-110* 4-/5 Right WFL 4/5 ROM Strength Strength concerns: WRIST & HAND Left Right WFL WFL [ ] Fisting Strength / Dexterity: RT 4/5, LT 4-/5 Goals for Wheelchair Mobility [ X] [place] with mobility in the home and mobility related ADLs (MRADLs) in the community [ X ] [place] with MRADLs in the community [ ] Provide dependent mobility [ ] Provide recline [ ] Provide tilt Goals for Seating system [ X] Optimize pressure distribution [ ] Provide support needed to facilitate function or safety [ ] Provide corrective forces to assist with maintaining or improving posture [ ] Accommodate client???s posture: current seated postures and positions are not flexible or wilnot tolerate corrective forces [ ] Client to be independent with relieving pressure in the wheelchair [ ] Enhance physiological function such as breathing, swallowing, digestion Equipment Trial: (Must be of adequate duration to demonstrate independence for patient with previous dependent mobility. Describe Duration and Location of Trial: Trial not completed at this time but per patient he has a scooter he has a scooter and is able to utilize scooter independently in his home for all MRADLs. Patient Demonstrated Ability To Use Equipment Safely & Efficiently [X] Yes [ ] No Comments: State why other equipment was unsuccessful: Pt cannot use an appropriately fitted cane or walker due to history of spinal stenosis with laminectomy and fusion with progressive LE pain and numbness with functional mobility tasks in home. Pt cannot use an optimally configured manual wheelchair due to history of LT ulnar nerve entrapmentwith bursitis. Pt can safely transfer on/off of scooter and navigate tiller. Patient demonstrates sufficient sitting balance to maintain safe sitting balance during mrADLs using scooter. Home environment is appropriate for use of scooter. RECOMMENDATIONS & JUSTIFICATION (Lowest Appropriate Group Must Be Recommended) MOBILITY BASE JUSTIFICATION Mfgr: janet Model: Seat Width: Seat Depth: Can Be Grown To: (Must Complete) Seat Width: Seat Depth: [ X] provide transport from point A to B [ X ] non- standard width/depth necessary [ X ] promote Indep mobility to accommodate anatomical measurement [ X] is not a safe, functional ambulator [ X ] walker or cane inadequate [ ] [ ] Manual Mobility Base [ ] non-functional ambulator [ X ] Scooter / POV [ X] can safely operate [ X ] has adequate trunk stability [ X] can safely transfer [ X] can not functionally propel manual wheelchair [ ] Power Mobility Base [ ] non-ambulatory [ ] can not functionally and safely [ ] can not functionally propel operate scooter / POV Manual wheelchair [ ] Stroller Base [ ] infant / child [ ] non-functional ambulator [ ] unable to propel manual wheelchair [ ] non-functional UE [ ] allows for growth [ ] Indep mobility is not a goal at this time Reasons This Particular WC Was Chosen for Patient? Patient will require heavy duty scooter due to current weight and height Why Isn???t a Lower Group Appropriate for Patient? Pt cannot use an appropriately fitted cane or walker due to history of spinal stenosis with laminectomy and fusion with progressive LE pain and numbness with functional mobility tasks in home. Pt cannot use an optimally configured manual wheelchair due to history of LT ulnar nerve entrapmentwith bursitis MOBILITY BASE JUSTIFICATION Tilt Base or added [ ] Forward [ ] Backward [ ] Powered tilt on powered chair [ ] Powered tilt on manual chair [ ] Manual tilt on manual base [ ] change position against gravitational [ ] management of tone Force on head and shoulders [ ] rest periods [ ] change in position for pressure [ ] control edema Relief/ Can not weight shift [ ] facilitate postural control [ ] transfers [ ] Recline [ ] Power recline on power base [ ] Manual recline on manual base [ ] accommodate femur to back angle [ ] rest periods [ ] bring to full recline for ADL care [ ] repositioning for transfers or [ ] change position for pressure clothing / diaper / catheter changes Relief / can not weight shift [ ] head positioning Transportation tie-down option [ ] to provide crash tested tie down brackets Elevator on Mobility Base [ ] Wheelchair [ ] Scooter [ ] Increase Indep in transfers [ ] raise height for communication at [ ] Increase Indep in ADLs standing level [ ] Push handles [ ] extended [ ] angle adjustable [ ] standard [ ] caregiver access [ ] allows hooking to enable [ ] caregiver assist increased ability to perform ADL's or maintain balance Retort Loader weight required [ ] self propulsion [ ] [ ] lifting Heavy Duty required [ X ] user weight greater than 250 pounds [ ] broken frame on previous chair [ ] extreme tone [ ] multiple seat functions [ ] over active movement [ ] Specific seat height required Floor to seat height [ ] foot propulsion [ ] access to table or desk top [ ] transfers [ ] [ ] accommodation of leg length MOBILITY BASE JUSTIFICATION Rear wheel placement / Axle Adjustability [ ] None [ ] semi adjustable [ ] fully adjustable [ ] improved UE access to wheels [ ] 1-arm drive access [ ] improved stability [ ] amputee placement [ ] changing angle in space for Improvement of postural stability Angle Adjustable Back [ ] postural control [ ] UE functional control [ ] control of tone / spasticity [ ] accommodation for seating system [ ] accommodation of range of motion [ ] POWER WHEELCHAIR CONTROLS [ ] Proportional Type Body Parts Left Right [ ] Non-proportional / switches Type Body Parts Upgraded Electronics [ ] [ ] Display box [ ] Digital interface electronics [ ] ASL Head Array [ ] Sip and puff tubing kit [ ] Upgraded tracking electronics [ ] Safety Reset Switches [ ] Single or Multiple Actuator Control Module [ ] provides access for controlling wheelchair [ ] lacks motor control to operate proportional drive control [ ] unable to understand proportional controls [ ] programming for accurate control [ ] progressive disease / changing condition [ ] needed in order to operate power / tilt Through joystick control [ ] allows user to see in which mode and drive the wheelchair is set; necessary for alternate drive controls [ ] allows w/c to operate when using [ ] non-proportional drive alternative drive controls control needed (Explain) [ ] allows client to operate wheelchair through switches placed in tri-panel headrest [ ] needed to operate sip and puff drive controls [ ] increase safety when driving [ ] correct tracking when on uneven surfaces [ ] Used to change modes and stop the wheelchair when driving in latch mode [ ] Allow the client to operate the power seat function(s) through the joystick control If Expandable Controller Recommended, Provide Additional Narrative In Space At End Of Form regarding Why Patient Requires Expandable Controller vs. Non-Expandable Controller MOBILITY BASE JUSTIFICATION JUSTIFICATION [ ] Mount for switches or joystick [ ] attaches switches to w/c [ ] Swing away for acces or transfers [ ] midline for optimal placement [ ] provides for consistent access Attendant controlled joystick plus mount [ ] safety [ ] long distance driving [ ] operation of seat functions [ ] compliance with transportation regulations [ ] Battery [ X ] power motor on wheelchair Data Sciences Director [ X ] charge battery for wheelchair Push rim active assist [ ] enable propulsion of manual wheelchair on sloped terrain [ ] enable propulsion of manual wheelchair for distance Hangers / Leg rests [ ] 60 [ ] 70 [ ] 90 [ ] elevating [ ]heavy duty [ ] articulating [ ] fixed [ ] lift off [ ] swing away [ ] rotational hands hanger brackets [ ] adjustable knee angle [ ] adjustable calf panel [ ] Longer extension tube [ ] provide LE support [ ] accommodate to hamstring tightness [ ] elevate legs during recline [ ] provide change in position for Les [ ] maintain placement of feet on footplate [ ] durability [ ] enable transfers [ ] decrease edema [ ] Accommodate lower leg length [ ] Foot support [ ] adjustable Footplate [ ] R [ ] L [ ] flip up [ ] depth/angle adjustable [ ] provide foot support [ ] accommodate to ankle ROM [ ] allow foot to go under wheelchair base [ ] transfers [ ] Armrests [ ] fixed [ ] adjustable height [ ] removable [ ] swing away [ ] flip back [ ] reclining [ ] full length pads [ ] desk [ ] pads tubular [ ] provide support with elbow at 90 [ ] provide support for w/c tray [ ] change of height / angles for variable activities [ ] remove for transfers [ ] allow to come closer to table top [ ] remove for access to tables [ ] Side guards [ ] prevent clothing getting caught in wheel or becoming soiled Wheel size: Wheel style [ ] mag [ ] spokes [ ] [ ] increase access to wheel [ ] allow for seating system to fit on base [ ] increase propulsion ability [ ] maintenance [ ] Quick Release Wheels [ ] allows wheels to be removed to decrease width of w/c for storage [ ] decrease weight for lifting [ ] Wheel rims / hand rims [ ] metal [ ] plastic coated [ ] vertical projections [ ] oblique projections [ ] provide ability to propel manual wheelchair [ ] increase self-propulsion with hand weakness / decreased laborer electroplating Tires: [ ] pneumatic [ ] flat free inserts [ ] solid [ ] decrease maintenance [ ] prevent frequent flats [ ] increase shock absorbency [ ] decrease pain from road shock [ ] decrease spasms from road shock [ ] Yanni housing: Yanni size: Style: [ ] maneuverabilty [ ] stability of wheelchair [ ] increase shock absorbency [ ] durability [ ] maintenance [ ] angle adjustment for posture [ ] decrease pain from road shock [ ] decrease spasms from road shock [ ] allow for feet to come under wheelchair base [ ] allows change in seat to floor height [ ] Shock absorbers [ ] decrease vibration [ ] provide smoother ride over rough terrain Spoke Protector [ ] prevent hands from getting caught in spokes [ ] One armed device [ ] L [ ] R [ ] enable propulsion of manual wheelchair with one arm [ ] Anti-tippers [ ] prevent wheelchair from tipping backward [ ] Amputee adapter [ ] provide support for stump/residual extremity [ ] Crutch/cane turner [ ] Oxygen Cylinder turner [ ] IV hands hanger [ ] stabilize accessory on wheelchair Brake/wheel lock extension [ ] R [ ] L [ ] increase indep in applying wheel locks Other: Other: SEATING COMPONENT RECOMMENDATIONS AND JUSTIFICATION Component Manuf/mod/size Justification Justification Seat Cushion [ ] accommodate impaired sensation [ ] decubitus ulcers present [ ] prevent pelvic extension [ ] low maintenance [ ] stabilize pelvis [ ] accommodate obliquity [ ] accommodate multiple deformity [ ] neutralize LE [ ] increase pressure distribution [ ] Seat Wedge [ ] accommodate ROM [ ] Provide increased aggressiveness of seat shape to decrease sliding down in the seat Cover Replacement [ ] protect back or seat cushion [ ] Mounting hardware Lateral trunk supports Headrest Medial thigh support Back Seat Fixed Swing away for: [ ] attach seat platform / cushion to w/c frame [ ] attach back cushion to w/c frame [ ] mount headrest [ ] swing medial thigh support away [ ] swing lateral supports away for transfers Seat Board Back Board [ ] support cushion to prevent hammocking [ ] allows attachment of cushion to mobility base Back [ ] provide lateral trunk support [ ] accommodate deformity [ ] accommodate or decrease tone [ ] facilitate tone [ ] provide posterior trunk support [ ] provide lumbar/sacral support [ ] support trunk in midline [ ] Lateral pelvic/thigh support [ ] pelvis in neutral [ ] accommodate pelvis [ ] position upper legs [ ] accommodate tone [ ] removable for transfers [ ] Medial Knee Support [ ] decrease adduction [ ] accommodate ROM [ ] remove for transfers [ ] alignment Foot Support [ ] position foot [ ] accommodate deformity [ ] stability [ ] decrease tone [ ] control position Ankle strap/heel loops [ ] support foot on foot support [ ] decrease extraneous [ ] provide input to heel [ ] protect foot movement Lateral trunk supports [ ] R [ ] L [ ] decrease lateral trunk leaning [ ] accommodate asymmetry [ ] contour for increased contact [ ] safety [ ] control of tone [ ] Anterior chest strap, vest, or shoulder retractors [ ] decrease forward movement of shoulder [ ] accommodation of TLSO decrease forward movement of trunk [ ] added abdominal support [ ] alignment [ ] assistance with shoulder control [ ] decrease shoulder elevation [ ] Headrest [ ] provide posterior head support [ ] provide posterior neck support [ ] provide lateral head support [ ] provide anterior head support [ ] support during tilt and recline [ ] improve feeding [ ] improve respiration [ ] placement of switches [ ] safety [ ] accommodate ROM [ ] accommodate tone [ ] improve visual orientation Neck Support [ ] decrease neck rotation [ ] decrease forward neck flexion Upper Extremity Support Arm trough Posterior hand support 1/2 tray Full tray Swivel mount [ ] R [ ] L [ ] decrease edema [ ] decrease subluxation [ ] control tone [ ] provide work surface [ ] placement for AAC/Computer/EADL [ ] decrease gravitational pull on shoulders [ ] provide midline positioning [ ] provide support to increase UE function [ ] provide hand support in natural position Pelvic Positioner Belt SubASIS bar Dual Pull [ ] stabilize tone [ ] decrease falling out of chair will not decrease potential for sliding due to pelvic tilting [ ] prevent excessive rotation [ ] pad for protection over svetlana prominence [ ] prominence comfort [ ] special pull angle to control rotation [ ] Bag or pouch Holds: [ ] medicines [ ] special food [ ] orthotics [ ] clothing changes [ ] diapers [ ] catheter / hygiene [ ] ostomy supplies [ ] OTHER: ADDITIONAL NARRATIVE DOCUMENTATION (MUST BE LEGIBLE): Pt cannot use an appropriately fitted cane or walker due to history of spinal stenosis with laminectomy and fusion with progressive LE pain and numbness with functional mobility tasks in home. Pt cannot use an optimally configured manual wheelchair due to history of LT ulnar nerve entrapmentwith bursitis. Pt can safely transfer on/off of scooter and navigate tiller. Patient demonstrates sufficient sitting balance to maintain safe sitting balance during mrADLs using scooter. SIGNATURES SHOWN BELOW MUST BE COMPLETED! Patient/Client/Caregiver/ Guardian Signature: Date: Therapist Name/Title Printed: Joby Hunter OT Therapist???s Signature: Date:06/25/22 Supplier???s Rep/Title Printed: Supplier???s Rep Signature: Date: This is to certify that I, the above signed therapist have the following affiliations: [ ] This DME Provider [ ] Special Agent [employer] of Recommended Equipment [ ] Patient???s Agency Operator Care Facility [ X ] None of the above My signature below certifies that I agree with the recommendations above and order the equipment shown on the provider???s itemized stewart list. Physician???s Signature: Date: HFS [id number] (R-11-14) [id number] documented in this encounter Plan of Treatment Not on file documented as of this encounter Visit Diagnoses Diagnosis Spinal stenosis, lumbar region without neurogenic claudication documented in this encounter Orders Outpatient Referral Count Last Ordered Date Fir st Ordered Date AMB REFERRAL ORDER TO OCCUPATIONAL THERAPY 1 06/25/2022 documented in this encounter Care Teams Application Packaging Specialist Relationship Specialty Start Date End Date Gianluca Price MD PCP - General 06/18/17 documented as of this encounter
--- OUTSIDE RECORDS SUMMARY | 2024-10-05 02:51 | XMS_ITS | Encounter Summary ---
Author Organization [facility] Address [address] [place] [address] Phone Care Team Providers Care Steamer Operator Name Role Phone Gianluca Price MD Primary Care Provider Reason for Visit * Reason Onset Date Comments Cardiac Rehab 06/12/2022 refused Encounter Details Date Type Department Care Team (Late st Contact Info) Description 06/12/2022 Telephone [facility] Cardiology [facility] Building [address] [place] [address] Sydney De La Paz Cardiac Rehab (refused) Social History Tobacco Use Types Packs/Day Years [...] on file Legal Sex Male 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 * Telephone Encounter - Sydney Chairez - 06/12/2022 8:53 AM CDT Called pt and LMOR if interested in cardiac rehab and to call back either way. * Telephone Encounter - Sydney Chairez - 06/12/2022 8:52 AM CDT ----- Message from Sydney Nunez RN sent at 06/07/2022 1:49 AM CDT ----- Regarding: cardiac rehab Pt had a PCI on 04/25/22. He has not messaged me back if he was interested in starting cardiac rehab. Can you call pt and see if he is interested and where he would like to go? documented in this encounter Plan of Treatment Not on file documented as of this encounter Visit Diagnoses Not on filedocumented in this encounter Care Teams Steamer Operator Relationship Specialty Start Date End Date Gianluca Price MD PCP - General 06/18/17 documented as of this encounter
--- OUTSIDE RECORDS SUMMARY | 2024-10-05 02:51 | XMS_ITS | Encounter Summary ---
Author Organization [facility] Healthcare Address [address] [place] [address] Care Team Providers Care Hide Inspector And Sorter Name Role Phone Gianluca Price MD Primary Care Provider Reason for Visit * Auth/Cert Specialty Diagnoses / Procedures Referred By Contac t Referred To Contact Diagnoses Abnormal EKG Abnormal stress test Chest pain, unspecified type Coronary artery disease of [place] artery of [place] heart with stable angina pectoris (HCC) Acute diastolic congestive heart failure (CMS/HCC) (HCC) Abnormal EKG [R94.31] Abnormal stress test [R94.39] Chest pain, unspecified type [R07.9] Coronary artery disease of [place] artery of [place] heart with stable angina pectoris (CMS/HCC) (HCC) [I25.118] Acute diastolic congestive heart failure (CMS/HCC) (HCC) [I50.31] Procedures TX CATH PLMT L HRT & ARTS W/NJX & ANGIO IMG S&I LEFT HEART CATHETERIZATION WITH CORONARY ANGIOGRAPHY AND WITH OR WITHOUT LEFT VENTRICULOGRAM [id number] Referral ID Status Reason Start Date Expiration Date Visits Re quested Visits Authorized [id number] 1 1 Encounter Details Date Type Department Care Team (Late st Contact Info) Description 04/25/2022 11:35 AM CDT - 04/25/2022 1:10 PM CDT Surgery [facility] [address] [place] [address] Ari Bradley MD [address] [place] [address] LEFT HEART CATHETERIZATION WITH CORONARY ANGIOGRAPHY AND WITH OR WITHOUT LEFT VENTRICULOGRAM [id number] Surgery Details Date/Time Status Location OR Service Patient Class Case Class Case Type Trauma Case? 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 Gender Identity Not on file Sexual Orientation Not on file Occupation Industry Job Start Date Job End Date Retired Not on file Not on file Not on file documented as of this encounter Last Filed Vital Signs Vital Sign Reading Time Taken Comments Blood Pressure 129/85 04/25/2022 11:25 AM CDT Pulse 87 04/25/2022 11:25 AM CDT Temperature 36.8 ??C (98.2 ??F) 04/25/2022 1 1:25 AM CDT Respiratory Rate - - Oxygen Saturation 96% 04/25/2022 11: 25 AM CDT Inhaled Oxygen Concentration - - Weight 158.5 kg (349 lb 5.8 oz) 022 11:25 AM CDT Height 193 cm (6' 4 ) 04/25/2022 11:25 AM CDT Body Mass Index 42.53 04/25/2022 11:25 AM CDT documented in this encounter Discharge Instructions * Discharge Instructions* Meet Orta RN - 04/25/2022 5:49 PM CDT Discharge Instructions For Cardiac Catheterization (Radial Approach) The Radial Artery is the small artery on the thumb side of your wrist. Your doctor has used this artery for your procedure. At the end of your procedure your doctor placed a special pressure pad/banddirectly on the artery to stop the bleeding and applied a wrist support to keep your wrist and handin a quiet position. We have removed that band and the support and have a Band-aid over the site. You may remove the Band-aid in the morning. Gently clean the area and apply a new Band-aid in the morning if you wish. Activity Restrictions: Take it easy for the next few days. We encourage you to perform your usual activities; you should move your arm, wrist, hand and fingers when you go home. Perform hand exercises by making a fist and opening it 5-10 times a minute as often as you remember. Due to your sedation: do not drive for 24 hours, and do not make any legal decisions for 24 hours. Keep the site dry. Do not soak your arm in water or a bath for 7 days. Washing your hands and showering is okay. Do not lift more than 5 pounds with your affect arm for 7 days. No heavy impact activities for one week. All activities are permitted after one week if no problems occur. Due to receiving sedation for your procedure: Do not make any legal decisions for 24 hours Do not operate potentially dangerous machinery for 24 hours Do not drink alcohol for 24hours Continue to take your home medications on your regular schedule. Restart Apixanban in the am on April 26. If you notice bleeding at the puncture site: Apply gentle direct pressure with your fingers over the site for 15 minutes. After 15 minutes you may release the pressure gently. If the bleeding re-starts or continues; reapply direct pressure and call 911. NEVER wrap a dressing or adhesive tape completely around your wrist as this can cause serious circulation complications. Call your doctor immediately for any of these rare but serious problems. If you are unable to reach your doctor go to the nearest Emergency Room. A swelling or bruise that is increasing in size or getting worse rather than disappearing. Severe pain at the puncture site, affected hand or forearm Your affected hand becomes cold, pale, or numb as compared to your other hand. Your arm becomes red, warm to the touch, or swollen as compared to your other arm. IV dye reactions are rare but can occur. If you develop a rash, hives, or itching of the skin or have throat tightness, notice selling of the tongue or lips, you may be having a dye reaction. For routine questions or concerns regarding your care after your catheterization please feel free to call us. From 7am-5pm M-F call our Outpatient Nurse Coordinators at [phone]. If you need to speak to someone after 5pm please call [facility] at [phone] and ask the oil spreader operator topage the Cardiac Doctor Of Pharmacy Fellow operations and maintenance technican. documented in this encounter Medications at Time of Discharge allopurinol (ZYLOPRIM) 300 mg tabletIndications :prevention of acute gout attack Take 1 tablet (300 mg total) by mouth nightly 06/01/2018 apixaban (ELIQUIS) 5 mg tablet Take 1 tablet (5 mg total) by mouth 2 (two) times a day 60 tablet 3 07/06/2020 01/10/2024 aspirin 81 mg chewable tablet Take 1 tablet (81 mg total) by mouth daily 30 tablet 04/25/2022 06/21/2022 atorvastatin (LIPITOR) 80 mg tablet Take 1 tablet (80 mg total) by mouth daily 30 tablet 11 04/19/2022 05/06/2023 carvediloL (COREG) 6.25 mg tablet TAKE 1 TABLET BY MOUTH TWICE DAILY WITH MEALS 180 tablet 3 03/11/2022 12/24/2022 clopidogreL (PLAVIX) 75 mg tablet TAKE 1 TABLET BY MOUTH DAILY 90 tablet 3 10/10/2021 07/29/2022 empagliflozin (JARDIANCE) 10 mg tabletIndications :type 2 diabetes mellitus Take 1 tablet (10 mg total) by mouth daily 14 tablet 04/19/2022 06/21/2022 furosemide (LASIX) 80 mg tablet Take 1 tablet (80 mg total) by mouth daily 90 tablet 2 04/19/2022 12/24/2022 niacin 500 mg tablet Take 1 tablet (500 mg total) by mouth 2 (two) times a day with meals 180 tablet 3 10/05/2019 04/10/2023 potassium chloride ER 20 mEq CR tablet TAKE 1 TABLET BY MOUTH TWO TIMES DAILY 180 tablet 3 12/08/2020 09/06/2022 sacubitriL-valsar stanley (ENTRESTO) 24-26 mg tablet Take 1 tablet by mouth 2 (two) times a day 180 tablet 3 03/15/2022 05/16/2023 spironolactone (ALDACTONE) 25 mg tablet TAKE 1 TABLET BY MOUTH DAILY 90 tablet 3 12/08/2020 11/23/2022 documented as of this encounter Ordered Prescriptions Prescription Sig Dispense Quantity Refills Last Filled Start Date End Date aspirin 81 mg chewable tablet Take 1 tablet (81 mg total) by mouth daily 30 tablet 04/25/2022 06/21/2022 documented in this encounter Discharge Disposition Disposition Code Departure Means Destination Discharge to home or self care documented in this encounter Nursing Notes * Ada Boogie RN - 04/25/2022 8:46 PM CDT Patient ambulated to bathroom, denies dizziness. Right wrist no bleeding, no hematoma. Adhesive bandage dry and intact. IV discontinued left and right hand, no swelling, no redness present. Labs reviewed and approved by Dr. Hammad Seymour. Patient verbalized understanding of discharge instructions andmedications including calling Dr. Bradley's office tomorrow for follow up appointment. All belongings returned to patient, AVS reviewed and signed by patient, patient discharged per MD order via wheelchair, with responsible caregiver patient's family. documented in this encounter Miscellaneous Notes * Perioperative Nursing Note - Meet Orta RN - 04/25/2022 8:06 PM CDT Pt. instructed to start low dose 81 mg aspirin tomorrow. Pt. Verbalized he had baby aspirin at home. Cardiac rehab ordered. * Pre-Cardiac Catheterization Workup and H&P - Mitch Staton MD - 04/25/2022 4:18 PM CDT PRE-CARDIAC CATHETERIZATION WORKUP Patient Name: Du Anderson Patient Patient : 1955 Date of Procedure: 04/25/2022 ORDERING POUNCER: Surgeon(s): Kam Adamson I., MD Ramos, Anil Gregorio, Mitch Aguillon MD Procedure(s): Coronary Flow Velocity (CFR) / Instantaneous Flow Velocity (IFR), 1st Vessel Requested Diagnostic: [] Coronary Angiograms Only [] Left Heart Cath [] LV Gram [] Right Heart Cath [] Right and Left Heart Cath Valve Study: [] Aortic [] Mitral [] Pulmonic [] Tricuspid [] Pulmonary HTN Study [] Pericardial Constriction Study [] Congential Study [] Other Study: Requested Intervention: [x] Coronary [] FFR [] Percutaneous VAD [] IAPB [] Pericardiocentesis [] Vascular [] Renal Valvuloplasty: [] Aortic [] Mitral [] Pulmonic [] Tricuspid Strucutural Heart: [] ASD/PFO Closure [] VSD Closure [] TAVR [] Other Intervention: NARRATIVE: 63-year-old man with multiple cardiovascular risk factors, known to have CAD and status post multiple prior PCIs presenting with worsening angina and shortness of breath who is being referred following his cardiac catheterization which demonstrated severe mid-RCA stenosis. ALLERGIES: Rosuvastatin Topical Iodine Allergy: [x] No [] Yes IV Contrast Allergy: [x] No [] Yes If yes, Premedicated for contrast allergy: [] No [] Yes PRE-Procedure Medications Antiarrhythmic Agent: [] Yes [x] No [] Contraindicated Aspirin: [x] Yes [] No [] Contraindicated Beta Anatoliy (Any): [x] Yes [] No [] Contraindicated Ca Channel Anatoliy (Any): [] Yes [x] No [] Contraindicated Long Acting Nirates (Any): [] Yes [x] No [] Contraindicated Non-Statin (Any): [] Yes [x] No [] Contraindicated Ranolazin: [] Yes [] No [] Contraindicated Statin (Any): [x] Yes [] No [] Contraindicated Indications for Doctor Of Pharmacy visit (Select all that apply): [] ACS less than or equal to 24 hours [x] ACS greater than 24 hours [] Stable/Known CAD [] Cardiac Arrhythmia [] Post Cardiac Transplant [] New Onset Angina less than or equal to 2 months [] Suspected CAD [] Worsening Angina [] Cardiomyopathy [] Pre-operative evaluation [] Valvular Disease [] LV Dysfunction [] Evaluation for Exercise Clearance [] Syncope [] Pericardial Disease [] Resuscitated Cardiac Arrest [] Congenital Heart Disease [] Evaluate CAD [] Pre-Transplant Evaluation [] Abnormal Stress Test [] Pulmonary HTN [] Heart Failure [] Other: Chest Pain Symptom Assessment: [] Typical Angina [] Atypical Angina [] Non-anginal Chest Pain [] Asymptomatic HISTORY AND RISK FACTORS Family History of Premature CAD: [] Yes [x] No [] Male less than 55 years old [] Female less than 65 years old Relationship: Cerebrovascular Disease: [] Yes [x] No Hypertension: [x] Yes [] No Diabetes Mellitus: [] Yes [x] No Dyslipidemia: [x] Yes [] No Peripheral Arterial Disease: [] Yes [x] No Chronic Lung Disease: [] Yes [x] No Prior Heart Failure: [x] Yes [] No [] CKD [] ESRD [] Dialysis [] HD []PD: Prior OR: [] Yes [x] No If Yes, Most Recent OR Date: Tobacco Use Social History Tobacco Use Smoking Status Never Smoker Smokeless Tobacco Never Used Previous Cardiac and Peripheral Interventions: (Include hospital/procedure/most recent date) Cardiac Cath/Prior PCI:[x] Yes [] No If Yes, Most Recent PCI Date: Report Available: [x] Yes [] No Prior CABG: [] Yes [x] No If Yes, Most Recent CABG Date: Report Available: [] Yes [] No Valvular Surgery: [] Yes [x] No Report Available: [] Yes [] No (Include percutaneous procedures): Peripheral Intervention: [] Yes [x] No Report Available: [] Yes [] No LABS Results for orders placed or performed during the hospital encounter of 04/25/22 CBC without differential Result Value Ref Range WBC 6.5 3.8 - 9.9 K/cumm Hgb 11.5 (L) 13.0 - 17.5 g/dL Hct 38.0 (L) 38.9 - 50.3 % Plt 226 150 - 400 K/cumm MPV 11.4 9.1 - 12.3 fL RBC 4.83 4.30 - 5.80 M/cumm MCV 78.7 (L) 81.3 - 96.4 fL MCH 23.8 (L) 27.1 - 33.3 pg MCHC 30.3 (L) 32.3 - 35.7 g/dL RDW CV 17.1 (H) 11.1 - 14.9 % RDW SD 48.4 (H) 35.7 - 48.1 fL NRBC abs 0.00 0.00 - 0.01 K/cumm Type and screen Result Value Ref Range ABO Rh O Positive Eddie, indirect Negative ECG 12 lead Result Value Ref Range Ventricular Rate EKG/Min 78 BPM Atrial Rate 70 BPM QRS-Interval (MSEC) 104 ms QT-Interval (MSEC) 416 ms QTc 474 ms R Madison 0 degrees T Madison 11 degrees Diagnosis Atrial fibrillation Abnormal ECG When compared with ECG of 13-NOV-2019 09:27, PREVIOUS ECG IS PRESENT Cath/PCI Indication: [x] CAD (without Ischemic Sx) [] Stable Angina [x] New Onset Angina less than or equal to 2 months [] NSTE-ACS [] Other: [] STEMI Symptom Date: Time: [] Thrombolytic [] Yes [] No If Yes, Start Date Time [] Staged PCI, Anginal symptoms stable on Medical Therapy and restricted activity: Anginal Class within 2 weeks [] CCS I [] CCS II [] CCS III [] CCS IV If AMI: [] Cardiogenic Shock at First Medical Contact [] Systolic Blood Pressure: and Heart Rate: at First Medical Contact [] Cardiac arrest within 24 hours [] Cardiogenic shock within 24 hours [] Cardiogenic shock at start of PCI Heart Failure: [x] Yes [] NO If Yes, Newly Diagnosed: [x] Yes [] No NYHS Class: [] Class I [] Class II [] Class III [] Class IV HF Type: [] Diastolic [] Systolic [] Unknown Test Performed (Choose One): [] Exercise Stress Test (w/o imaging) [] Stress Echocardiogram [] Stress Nuclear [] Stress Imaging w/CMR [] Cardiac CTA If Yes, Result: Result: [] Negative [] Positive [] Indeterminate IF Positive: Risk/Extent of ischemia: [] Low [] Intermediate [] High FINDINGS LVEF Assessed: [x] Yes [] No If yes, Most recent LVEF %: PHYSICAL EXAM Vitals: 04/25/22 1520 BP: 132/79 Pulse: 86 Resp: 19 Temp: SpO2: 98% General appearance: appears stated age, cooperative and no distress Eyes: conjunctivae/corneas clear. PERRL, anicteric Neck: no adenopathy, no carotid bruit, no JVD, supple, symmetrical, trachea midline and thyroid notenlarged, symmetric, no tenderness/mass/nodules Lungs: clear to auscultation bilaterally Heart: regular rate and rhythm, S1, S2 normal, no murmur, click, rub or gallop Abdomen: soft, non-tender; bowel sounds normal; no masses, no organomegaly Extremities: extremities normal, warm and well-perfused Pulses: 2+ and symmetric Skin: Skin color, texture, turgor normal. No rashes or lesions Neurologic: Alert and oriented x4, non-focal Psych: Normal mood and affect Pulses Carotid/Bruit Brachial Radial Femoral/Bruit Popiteal DP PT Left 2+ 2+ Right 2+ 2+ CS Clinical Frailty Scale: [] 1: Very Fit [] 2: Well [] 3: Managing Well [x] 4: Vulnerable [] 5: Mildly Frail [] 6: Moderately Frail [] 7: Severely Frail [] 8: Very Severely Frail [] 9: Terminally Ill PLAN: Procedure, risks, benefits and alternatives have been explained to the patient. The patient voiced understanding, consent is signed and orders are written. Form Completed/Reviewed and Assessment Completed by: Mitch Seymour M.D. Fellow in Cardiovascular Disease [facility] in [facility] Cosigned by Kam Adamson MD at 04/25/2022 4:30 PM CDT * Pre-Sedation Documentation - Mitch Staton MD - 04/25/2022 4:16 PM CDT Sedation Plan ASA 3 - Severe systemic disease Risks, benefits, and alternatives discussed with patient. History of sedation/Anesthesia complications:No History of transfusion reaction: No Current Facility-Administered Medications Medication Dose Route Frequency Provider Last Rate Last Admin ??? Carrier Fluids for Secondary Infusion - 0.9% Sodium Chloride 30 mL intravenous PRN Jania Montanez NP ??? heparin in 0.9% sodium chloride 25,000 unit/250 mL infusion (premix) 1,000 Units/hr intravenousTitrated Patti Montanez NP 10 mL/hr at 04/25/22 1426 1,000 Units/hr at 04/25/22 1426 ??? sodium chloride 0.9% flush 0.5-20 mL 0.5-20 mL intra-catheter Q8H NBA Patti Montanez NP ??? sodium chloride 0.9% flush 0.5-20 mL 0.5-20 mL intra-catheter PRN Patti Montanez NP ??? sodium chloride 0.9% infusion 150 mL/hr intravenous Continuous Patti Montanez NP 150 mL/hr at 04/25/22 1140 150 mL/hr at 04/25/22 1140 Laboratory review: Chemistry BMP No results found for: GLUCOSE, CALCIUM, SODIUM, POTASSIUM, CO2, BUNSER, CREATININE, CBC: Lab Results Component Value Date WBC 6.5 04/25/2022 RBC 4.83 04/25/2022 HGB 11.5 (L) 04/25/2022 HCT 38.0 (L) 04/25/2022 MCV 78.7 (L) 04/25/2022 MCH 23.8 (L) 04/25/2022 MCHC 30.3 (L) 04/25/2022 RDWCV 17.1 (H) 04/25/2022 RDWSD 48.4 (H) 04/25/2022 MPV 11.4 04/25/2022 NRBCABS 0.00 04/25/2022 and Coags: No results found for: PT, PTT, APTT, FFN, FIBRINOGEN, INR, ACTIVATEDCL Current meds/Labs/Test Results that may affect sedation reviewed: Yes Last PO Intake: Date of Last Liquid: 04/25/22, Time of Last Liquid: 09 Date of Last Solid: 04/24/22, Time of Last Solid: 2199 HEENT Exam: negative Sedation Plan: Moderate Cosigned by Kam Adamson MD at 04/25/2022 4:30 PM CDT * Pre-Sedation Documentation - Santiago Masterson MD - 04/25/2022 12:07 PM CDT Sedation Plan ASA 2 - Mild systemic disease Mallampati class: III. Risks, benefits, and alternatives discussed with patient. History of sedation/Anesthesia complications:No History of transfusion reaction: No Current Facility-Administered Medications Medication Dose Route Frequency Provider Last Rate Last Admin ??? Carrier Fluids for Secondary Infusion - 0.9% Sodium Chloride 30 mL intravenous PRN Jania Montanez NP ??? sodium chloride 0.9% flush 0.5-20 mL 0.5-20 mL intra-catheter Q8H NBA Patti Montanez NP ??? sodium chloride 0.9% flush 0.5-20 mL 0.5-20 mL intra-catheter PRN Patti Montanez NP ??? sodium chloride 0.9% infusion 150 mL/hr intravenous Continuous Patti Montanez NP 150 mL/hr at 04/25/22 1140 150 mL/hr at 04/25/22 1140 Laboratory review: Chemistry BMP No results found for: GLUCOSE, CALCIUM, SODIUM, POTASSIUM, CO2, BUNSER, CREATININE, CBC:No results found for: WBC, RBC, HGB, HCT, MCV, MCH, MCHC, RDW, RDWCV, RDWSD, MPV, NRBC, NRBCABS, NRBCPCT and Coags: No results found for: PT, PTT, APTT, FFN, FIBRINOGEN, INR, ACTIVATEDCL Current meds/Labs/Test Results that may affect sedation reviewed: Yes Last PO Intake: 2300 04/24 Date of Last Liquid: 04/25/22, Time of Last Liquid: 0900 Date of Last Solid: 04/24/22, Time of Last Solid: 0 HEENT Exam: negative Sedation Plan: Moderate Cosigned by Ari Bradley MD at 04/25/2022 12:39 PM CDT * Pre-Cardiac Catheterization Workup and H&P - Santiago Masterson MD - 04/20/2022 1:37 PM CDT PRE-CARDIAC CATHETERIZATION WORKUP Patient Name: Du Anderson Patient Patient : 1955 Date of Procedure: 04/25/2022 ORDERING POUNCER: Surgeon(s): Ari Bradley MD Procedure(s): LEFT HEART CATHETERIZATION WITH CORONARY ANGIOGRAPHY AND WITH OR WITHOUT LEFT VENTRICULOGRAM [id number] Requested Diagnostic: [] Coronary Angiograms Only [x] Left Heart Cath [] LV Gram [] Right Heart Cath [] Right and Left Heart Cath Valve Study: [] Aortic [] Mitral [] Pulmonic [] Tricuspid [] Pulmonary HTN Study [] Pericardial Constriction Study [] Congential Study [] Other Study: Requested Intervention: [] Coronary [] FFR [] Percutaneous VAD [] IAPB [] Pericardiocentesis [] Vascular [] Renal Valvuloplasty: [] Aortic [] Mitral [] Pulmonic [] Tricuspid Strucutural Heart: [] ASD/PFO Closure [] VSD Closure [] TAVR [] Other Intervention: 63 year old male with h/o Hypertension, Obstructive sleep apnea, Dyslipidemia, CAD s/p Complex coronary disease. PCI of trifurcating left main circumflex, inferior ramus, superior ramus, and ostial LAD in a staged manner with multiple CRISTHIAN stents??in 2016, atrial fibrillation s/p WILMER/CV 11-05-19. Patient endorses a constant chest heaviness that worsens when he lies flat and improves when he lays onhis side. Also endorses TOLLIVER ie.walking 50 feet. S/s have been occurring over the last couple monthsReferred for [facility]. NARRATIVE: ALLERGIES: Rosuvastatin Topical Iodine Allergy: [x] No [] Yes IV Contrast Allergy: [x] No [] Yes If yes, Premedicated for contrast allergy: [] No [] Yes PRE-Procedure Medications Antiarrhythmic Agent: [] Yes [x] No [] Contraindicated Aspirin: [] Yes [x] No [] Contraindicated Beta Anatoliy (Any): [x] Yes [] No [] Contraindicated Ca Channel Anatoliy (Any): [] Yes [x] No [] Contraindicated Long Acting Nirates (Any): [] Yes [] No [] Contraindicated Non-Statin (Any): [] Yes [x] No [] Contraindicated Ranolazin: [] Yes [x] No [] Contraindicated Statin (Any): [x] Yes [] No [] Contraindicated Indications for Doctor Of Pharmacy visit (Select all that apply): [] ACS less than or equal to 24 hours [x] ACS greater than 24 hours [] Stable/Known CAD [] Cardiac Arrhythmia [] Post Cardiac Transplant [] New Onset Angina less than or equal to 2 months [] Suspected CAD [] Worsening Angina [] Cardiomyopathy [] Pre-operative evaluation [] Valvular Disease [] LV Dysfunction [] Evaluation for Exercise Clearance [] Syncope [] Pericardial Disease [] Resuscitated Cardiac Arrest [] Congenital Heart Disease [x] Evaluate CAD [] Pre-Transplant Evaluation [] Abnormal Stress Test [] Pulmonary HTN [] Heart Failure [] Other: Chest Pain Symptom Assessment: [] Typical Angina [x] Atypical Angina [] Non-anginal Chest Pain [] Asymptomatic HISTORY AND RISK FACTORS Family History of Premature CAD: [] Yes [x] No [] Male less than 55 years old [] Female less than 65 years old Relationship: Cerebrovascular Disease: [] Yes [x] No Hypertension: [x] Yes [] No Diabetes Mellitus: [] Yes [x] No Dyslipidemia: [x] Yes [] No Peripheral Arterial Disease: [] Yes [x] No Chronic Lung Disease: [] Yes [x] No Prior Heart Failure: [x] Yes [] No [] CKD [] ESRD [] Dialysis [] HD []PD: Prior OR: [] Yes [x] No If Yes, Most Recent OR Date: Tobacco Use Social History Tobacco Use Smoking Status Never Smoker Smokeless Tobacco Never Used Previous Cardiac and Peripheral Interventions: (Include hospital/procedure/most recent date) Cardiac Cath/Prior PCI:[x] Yes [] No If Yes, Most Recent PCI Date: 11-30-19 Report Available: [x] Yes [] No ?? [id number] 3 vessel disease of the RCA, LAD and superior ramus. His prior complex stents are patent with mild to moderate restenosis. Prior CABG: [] Yes [x] No If Yes, Most Recent CABG Date: Report Available: [] Yes [] No Valvular Surgery: [] Yes [x] No Report Available: [] Yes [] No (Include percutaneous procedures): Peripheral Intervention: [] Yes [x] No Report Available: [] Yes [] No LABS Results for orders placed or performed in visit on 04/19/22 Pro B-type natriuretic peptide Result Value Ref Range NT-proBNP 766 (H) <=300 pg/mL Comprehensive metabolic panel Result Value Ref Range Sodium 143 135 - 145 mmol/L Potassium, pl 4.1 3.3 - 4.9 mmol/L Chloride 106 97 - 110 mmol/L CO2 26 22 - 32 mmol/L Anion gap 11 2 - 15 mmol/L BUN 14 8 - 25 mg/dL Creatinine 0.98 0.80 - 1.30 mg/dL Glucose 96 70 - 199 mg/dL Calcium 9.8 8.5 - 10.3 mg/dL Bilirubin, total 0.5 0.1 - 1.2 mg/dL Protein, pl 7.7 6.5 - 8.5 g/dL Albumin 4.5 3.5 - 5.0 g/dL Alk phos 98 40 - 130 Units/L ALT 21 7 - 55 Units/L AST 25 10 - 50 Units/L CBC with auto differential Result Value Ref Range WBC 9.7 3.8 - 9.9 K/cumm Hgb 11.9 (L) 13.0 - 17.5 g/dL Hct 39.6 38.9 - 50.3 % Plt 278 150 - 400 K/cumm MPV 11.8 9.1 - 12.3 fL RBC 4.89 4.30 - 5.80 M/cumm MCV 81.0 (L) 81.3 - 96.4 fL MCH 24.3 (L) 27.1 - 33.3 pg MCHC 30.1 (L) 32.3 - 35.7 g/dL RDW CV 17.7 (H) 11.1 - 14.9 % RDW SD 51.5 (H) 35.7 - 48.1 fL NRBC abs 0.00 0.00 - 0.01 K/cumm Differential, auto Result Value Ref Range Neutrophil abs 6.1 1.7 - 6.5 K/cumm Imm gran abs 0.0 0.0 - 0.1 K/cumm Lymphocyte abs 2.4 0.8 - 3.3 K/cumm Monocyte abs 0.9 (H) 0.2 - 0.8 K/cumm Eosinophil abs 0.2 0.0 - 0.5 K/cumm Basophil abs 0.1 0.0 - 0.1 K/cumm Neutrophil pct 63.0 % Imm gran pct 0.4 % Lymphocyte pct 24.7 % Monocyte pct 9.0 % Eosinophil pct 2.1 % Basophil pct 0.8 % eGFR Result Value Ref Range eGFR 85 (L) 90 - 130 mL/min/1.73 m2 Cath/PCI Indication: [] CAD (without Ischemic Sx) [] Stable Angina [x] New Onset Angina less than or equal to 2 months [x] NSTE-ACS [] Other: [] STEMI Symptom Date: Time: [] Thrombolytic [] Yes [] No If Yes, Start Date Time [] Staged PCI, Anginal symptoms stable on Medical Therapy and restricted activity: Anginal Class within 2 weeks [] CCS I [] CCS II [] CCS III [x] CCS IV Heart Failure: [x] Yes [] NO If Yes, Newly Diagnosed: [] Yes [x] No [facility] Class: [] Class I [] Class II [x] Class III [] Class IV HF Type: [] Diastolic [x] Systolic [] Unknown Test Performed (Choose One): [] Exercise Stress Test (w/o imaging) [] Stress Echocardiogram [] Stress Nuclear [] Stress Imaging w/CMR [] Cardiac CTA If Yes, Result: Result: [] Negative [] Positive [] Indeterminate IF Positive: Risk/Extent of ischemia: [] Low [] Intermediate [] High FINDINGS LVEF Assessed: [] Yes [] No If yes, Most recent LVEF %: ECHO:04-16-22 LA is mildly dilated. Normal RV cavity size. LV cavity size is normal. Normal LV wall thickness/mass. mild global LV hypokinesis noted. LVEF 44%. Normal Inferior vena cava. Normal aorta. No AR seen, Mild MR, no , no MS, mild TV regurgitation, normal PV.Strain quality is inadequate for accurate reporting. Diastolic function: Normal Nurse Coordinator: Lucia Hermosillo RN Date: 04-20-22 Time: 1352 PHYSICAL EXAM BP 129/85 Pulse 87 Temp 36.8 ??C (98.2 ??F) (Oral) Ht 193 cm (6' 4 ) Wt (!) 158.5 kg (349 lb 5.8 oz) SpO2 96% BMI 42.53 kg/m?? General appearance: appears stated age, cooperative and no distress Eyes: conjunctivae/corneas clear. PERRL, anicteric Neck: no adenopathy, no carotid bruit, no JVD, supple, symmetrical, trachea midline and thyroid notenlarged, symmetric, no tenderness/mass/nodules Lungs: clear to auscultation bilaterally Heart: regular rate and rhythm, S1, S2 normal, no murmur, click, rub or gallop Abdomen: soft, non-tender; bowel sounds normal; no masses, no organomegaly Extremities: extremities normal, warm and well-perfused Pulses: 2+ and symmetric Skin: Skin color, texture, turgor normal. No rashes or lesions Neurologic: Alert and oriented x4, non-focal Psych: Normal mood and affect Pulses Carotid/Bruit Brachial Radial Femoral/Bruit Popiteal DP PT Left 2+ 2+ 2+ 2+ 2+ 2+ 2+ Right 2+ 2+ 2+ 2+ 2+ 2+ 2+ CARDIAC EXAM: As above EKG: sinus CXR: no acute abnormality CSHA Clinical Frailty Scale: [] 1: Very Fit [] 2: Well [] 3: Managing Well [x] 4: Vulnerable [] 5: Mildly Frail [] 6: Moderately Frail [] 7: Severely Frail [] 8: Very Severely Frail [] 9: Terminally Ill PLAN: Procedure, risks, benefits and alternatives have been explained to the patient. The patient voiced understanding, consent is signed and orders are written. Form Completed/Reviewed and Assessment Completed by: Santiago Masterson [employer] Cosigned by Ari Bradley MD at 04/25/2022 12:39 PM CDT documented in this encounter Plan of Treatment Not on file documented as of this encounter Procedures Procedure Name Priority Date/Time Associated Diagnosis Comments EGFR STAT 04/25/2022 8:00 PM CDT CBC WITHOUT DIFFERENTIAL STAT 04/25/2022 8:00 PM CDT BASIC METABOLIC PANEL STAT 04/25/2022 8:00 PM CDT POCT ACTIVATED CLOTTING TIME, LOW RANGE Routine 04/25/2022 5:42 PM CDT CORONARY OCT, 1ST VESSEL Routine 04/25/2022 5:41 PM CDT Chest pain, unspecified type CRISTHIAN MAJOR CORONARY Routine 04/25/2022 5: 41 PM CDT Chest pain, unspecified type POCT ACTIVATED CLOTTING TIME, LOW RANGE Routine 04/25/2022 5:10 PM CDT POCT ACTIVATED CLOTTING TIME, LOW RANGE Routine 04/25/2022 4:57 PM CDT HC ANTIBODY SCREEN RBC Timed 2:00 PM CDT LEFT HEART CATHETERIZATION WITH CORONARY ANGIOGRAPHY AND WITH AND WITHOUT LEFT VENTRICULOGRAM Routine 04/25/2022 1:13 PM CDT Abnormal EKG Abnormal stress test Chest pain, unspecified type Coronary artery disease of [place] artery of [place] heart with stable angina pectoris (CMS/HCC) (HCC) Acute diastolic congestive heart failure (CMS/HCC) (HCC) CBC WITHOUT DIFFERENTIAL Routine 04/25/2022 12:58 PM CDT ECG 12-LEAD Routine 04/25/2022 11:26 AM CDT documented in this encounter Results * eGFR (04/25/2022 8:00 PM CDT) Pathologist [facility] eGFR >90 90 - 130 mL/min/1. 73 m2 [facility] Comment: Collection date/time has been modified to: 20:00:00. ??Previous collection date/time: 12:02:00. Interpretive Data Reference Interval Normal ?>/= 90 mL/min/1.73m2 Mildly decreased* ? 60 - 89 mL/min/1.73m2 Mildly to moderately decreased ?45 - 59 mL/min/1.73m2 Moderately to severely decreased ??30 - 44 mL/min/1.73m2 Severely decreased ?15 - 29 mL/min/1.73m2 Kidney Failure ?< 15 ??mL/min/1.73m2 *Relative to young adult level Estimated glomerular filtration rate is determined by the 2020 CKD-EPI equation recommended by the National Kidney Foundation (A Unifying Approach to GFR Estimation: Recommendations of the NKF-ASK Task Force on Reassessing the Inclusion of Race in Diagnosing Kidney Disease, JASN 202). The CKD-EPI equation should not be used for patients with unstable renal function and has not been validated in children and those over 70. Current interpretive data was last reviewed 2021. Blood 04/25/2022 8:00 PM CDT 04/25/2022 8:18 PM CDT us Mitch Seymour MD LAB BLOOD ORDERABL ES Edited Result - Final [facility] Department [place] [address] * Basic metabolic panel (04/25/2022 8:00 PM CDT) Sodium 141 135 - 145 mmol/L [facility] Comment:Collection date/time has been modified to: 20:00:00. Previous collection date/time: 12:02:00. Potassium, pl 3.4 3.3 - 4.9 mmol/L [facility] Comment:Collection date/time has been modified to: 20:00:00. Previous collection date/time: 12:02:00. Chloride 107 97 - 110 mmol/L [facility] Comment:Collection date/time has been modified to: 20:00:00. Previous collection date/time: 12:02:00. CO2 24 22 - 32 mmol/L [facility] Comment:Collection date/time has been modified to: 20:00:00. Previous collection date/time: 12:02:00. Anion gap 10 2 - 15 mmol/L [facility] Comment:Collection date/time has been modified to: 20:00:00. Previous collection date/time: 12:02:00. BUN 11 8 - 25 mg/dL [facility] Comment:Collection date/time has been modified to: 20:00:00. Previous collection date/time: 12:02:00. Creatinine 0.85 0.80 - 1.30 mg/dL [facility] Comment:Collection date/time has been modified to: 20:00:00. Previous collection date/time: 12:02:00. Glucose 168 70 - 199 mg/dL [facility] Comment: Collection date/time has been modified to: 20:00:00. ??Previous collection date/time: 12:02:00. Interpretive Data Fasting glucose >/= 126 mg/dl is diagnostic for diabetes. ?? Fasting is defined as no caloric intake for at least 8 hours. Fasting glucose between 100 mg/dl to 125 mg/dl is diagnostic of prediabetes. In a patient with classic symptoms of hyperglycemia or hyperglycemic crisis, a random glucose >/= 200 mg/dl is diagnostic for diabetes. In the absence of unequivocal hyperglycemia, results should be confirmed by repeat testing. The classification and Diagnosis of Diabetes Diabetes Care 2017;40 (Suppl. 1):S11. Current interpretive data was last revised 2017. Calcium 8.6 8.5 - 10.3 mg/dL [facility] Comment:Collection date/time has been modified to: 20:00:00. Previous collection date/time: 12:02:00. Blood 04/25/2022 8:00 PM CDT 04/25/2022 8:05 PM CDT us Mitch Seymour MD LAB BLOOD ORDERABL ES Edited Result - Final [facility] One [facility] Department [place] [address] * (ABNORMAL) CBC without differential (04/25/2022 8:00 PM CDT) WBC 7.0 3.8 - 9.9 K/cumm [facility] Comment:Collection date/time has been modified to: 20:00:00. Previous collection date/time: 12:02:00. Hgb 11.5(L) 13.0 - 17.5 g/dL [facility] Comment:Collection date/time has been modified to: 20:00:00. Previous collection date/time: 12:02:00. Hct 37.5(L) 38.9 - 50.3 % [facility] Comment:Collection date/time has been modified to: 20:00:00. Previous collection date/time: 12:02:00. Plt 227 150 - 400 K/cumm [facility] Comment:Collection date/time has been modified to: 20:00:00. Previous collection date/time: 12:02:00. MPV 11.2 9.1 - 12.3 fL [facility] Comment:Collection date/time has been modified to: 20:00:00. Previous collection date/time: 12:02:00. RBC 4.72 4.30 - 5.80 M/cumm [facility] Comment:Collection date/time has been modified to: 20:00:00. Previous collection date/time: 12:02:00. MCV 79.4(L) 81.3 - 96.4 fL [facility] Comment:Collection date/time has been modified to: 20:00:00. Previous collection date/time: 12:02:00. MCH 24.4(L) 27.1 - 33.3 pg [facility] Comment:Collection date/time has been modified to: 20:00:00. Previous collection date/time: 12:02:00. MCHC 30.7(L) 32.3 - 35.7 g/dL [facility] Comment:Collection date/time has been modified to: 20:00:00. Previous collection date/time: 12:02:00. RDW CV 17.2(H) 11.1 - 14.9 % [facility] Comment:Collection date/time has been modified to: 20:00:00. Previous collection date/time: 12:02:00. RDW SD 49.3(H) 35.7 - 48.1 fL [facility] Comment:Collection date/time has been modified to: 20:00:00. Previous collection date/time: 12:02:00. NRBC abs 0.00 0.00 - 0.01 K/cumm [facility] Comment:Collection date/time has been modified to: 20:00:00. Previous collection date/time: 12:02:00. Blood 04/25/2022 8:00 PM CDT 04/25/2022 8:05 PM CDT us Mitch Seymour MD LAB BLOOD ORDERABL ES Edited Result - Final Performing Organization Address [facility] Co de Phone Number [facility] Department [place] [address] * (ABNORMAL) POCT Activated clotting time, low range (04/25/2022 5:42 PM CDT) ACT 249(H) 123 - 168 sec [facility] Blood 04/25/2022 5:42 PM CDT 04/25/2022 5:42 PM CDT us Ari Bradley MD LAB POCT ORDERABLES - DEVICE F inal Result Performing Organization Address [facility] Co de Phone Number [facility] Department [place] [address] * CRISTHIAN MAJOR CORONARY, CORONARY OCT, 1ST VESSEL (04/25/2022 5:41 PM CDT) Anatomical Region Laterality Modality X-Ray Angiograph y Narrative 04/25/2022 6:00 PM CDT Final Cardiac Catheterization Report Clinical Profile: ??Patient is a 66-year-old male with a history of paroxysmal atrial fibrillation, hypertension obstructive sleep apnea and known coronary artery disease with ischemic cardiomyopathy with chronic systolic heart failure. ??He has had extensive percutaneous revascularization in the past in 5 being a trifurcation left main circumflex, inferior ramus, superior ramus and ostial LAD and a staged manner 2016. Recently has been complaining of episodes of chest pressure is concerning for angina. ??A stress test showed evidence of inferior ischemia. ??He underwent cardiac catheterization earlier today which showed progression of his right coronary artery to correspond to the stress test. Procedure: 1. Patient is prepped and draped usual sterile fashion. 2. After giving local anesthesia, Existing the right radial artery was exchanged for a 5/6 slender sheath. 3. Heparin was given. 4. Drug-eluting Synergy stent placement to the proximal mid LAD. ?? Diffusely disease segment extending 42 mm me 80% in its worst with moderate calcification with antegrade ANTHONY 3 flow ACC aha lesion type C. This is low syntax score. 5. Equipment used: ??6 [place] hockey-stick guide, power turn flex, 2 5 x 15 NC emerge, 4 0 x 26 NC Sapphire, 4 x 40 mm drug-eluting Synergy stent, [place] [facility] intravascular ultrasound. 6. Intravascular ultrasound performed. 7. I provided direct [id number] moderate conscious sedation which was administered by independent trained nurse using fentanyl and Versed for 55 minutes. 8. Hemostasis was achieved by TR band RESULTS: - Interventional Comments Right coronary artery was wired with a power turn flex without difficulty. Most severe lesion in the midportion was pre-dilated with a 2 5 x 15 NC emerge. ??Intravascular ultrasound revealed diffuse disease extending to the proximal aspect of the vessel before became more normal in appearance. On the basis 4 0 x 40 mm drug-eluting Synergy stent was selected and deployed at 20 atmospheres. ??The mid and proximal portion team under expanded was post dilated with a 4026 NC Sapphire. ??This gave excellent result with 0% stenosis ANTHONY 3 flow. - Diagnostic Impression Successful drug-eluting Synergy stent to the proximal mid right coronary artery with 0% stenosis ANTHONY 3 flow. - Therapeutic Recommendations Patient's post intervention regimen should include daily aspirin 81 mg likely limited 2 weeks given his need to be on Eliquis. ??He should be on clopidogrel 75 mg a day with a goal of 6 months. ??His Eliquis may be resumed on 04/26.. ??If his clopidogrel was stopped after 6 months,aspirin 81mg should be restarted. This note was written using a voice recognition system hardware device. ?? Please note there may be variance in spelling, stephanie, and syntax because of the voice recognition system hardware. ??Therefore, not every sentence has been reviewed in its entirety. ??If there are any concerns about verbage above please contact Kam Adamson at [phone]. us Santiago Masterson MD CV CARDIAC CATH PROCEDU RES Final Result * (ABNORMAL) POCT Activated clotting time, low range (04/25/2022 5:10 PM CDT) ACT 318(H) 123 - 168 sec [facility] Blood 04/25/2022 5:10 PM CDT 04/25/2022 5:10 PM CDT Ari Bradley MD LAB POCT ORDERABLES - DEVICE F inal Result Performing Organization Address City/[facility]/ZIP Co de Phone Number [facility] Department [place] [address] * POCT Activated clotting time, low range (04/25/2022 4:57 PM CDT) ACT 139 123 - 168 sec [facility] Blood 04/25/2022 4:57 PM CDT 04/25/2022 4:57 PM CDT Ari Bradley MD LAB POCT ORDERABLES - DEVICE F inal Result Performing Organization Address City/[facility]/ZIP Co de Phone Number [facility] Department [place] [address] * Type and screen (04/25/2022 2:00 PM CDT) ABO Rh O Positive [facility] Eddie, indirect Negative [facility] Comment:Patient has previous antibody history Blood 04/25/2022 2:00 PM CDT 04/25/2022 2:10 PM CDT Narrative [facility] - 04/25/2022 4:02 PM CDT Has the patient had Daratumumab or Isatuximab in the past 6 months?->Unknown us Patti Cobb VIBRATING SCREED OPERATOR LAB BLOOD BANK TEST ORDERABLE S Final Result [facility] Department [place] [address] * LEFT HEART CATHETERIZATION WITH CORONARY ANGIOGRAPHY AND WITH AND WITHOUT LEFT VENTRICULOGRAM (04/25/2022 1:13 PM CDT) Anatomical Region Laterality Modality X-Ray Angiograph y Narrative 04/25/2022 1:52 PM CDT CARDIAC CATHETERIZATION Patient: Du Anderson [id number] : 1955 Date of Service: 04/25/2022 FINAL PATIENT CLINICAL PROFILE: Du Anderson is a 66 y.o. White male came for a cardiac cath. PRINCIPAL AND SECONDARY DIAGNOSES: 1. Complex coronary disease. PCI of trifurcating left main circumflex, inferior ramus, superior ramus, and ostial LAD in a staged manner with multiple CRISTHIAN stents in 2015. Cath His prior complex stents are patent with mild to moderate restenosis. 2. Ischemic Cardiomyopathy . Echo ?? LVEF 44% 3. Moderate to severe MR, [...] three times the reference value of 75. 1. ?? INTERVAL HISTORY: ?? He had a stenting of his ostial LAD, ostial ramus, and ostial circumflex in the past. He continues to do well. ??He had a ??cardiac catheterization on 11/30/2019 which showed his prior stents were patent with mild to moderate restenosis. ??He returns for follow-up. ??He is short of breath with mild activities,even in door activities. He occasionally get chest pain too. He states prior to stents in coronaries he had similar symptoms , chest pain was never his main symptoms. . ??He denies any leg swelling.No history of COV-19 infection noted. ?? He had LV dysfunction and moderate to severe central mitral regurgitation based on echocardiogram done in October 2019. His echo on 04/06/2022 showed LVEF 44% with mild MR only. ? Nuclear Stress Test 07/16/2021 [employer] Myocardial perfusion imaging is abnormal. ?? There are moderate areas of ischemia in the inferior locations of moderate severity. (See interpretation above) ?? Overall left ventricular systolic function was normal with a calculated LVEF of 54 % with regional wall abnormalities. Gated Spect imaging demonstrates hypokinesis ??that is more prominent in the inferior wall. There was not LV dilatation present. ?? Clinically normal ECG. ??Electrocardiographically normal ECG. Echo 04/06/2022 ?? SUMMARY: LA is mildly dilated. Normal RV cavity size. LV cavity size is normal. Normal LV wall thickness/mass. mild global LV hypokinesis noted. LVEF 44%. ??Normal Inferior vena cava. Normal aorta. ??No AR seen, Mild MR, no , no MS, mild TV regurgitation, normal PV.Strain quality is inadequate for accurate reporting. Diastolic function: Normal ?? Lab Results Component Value Date WBC 9.7 04/19/2022 HGB 11.9 (L) 04/19/2022 HCT 39.6 04/19/2022 LABPLAT 278 04/19/2022 CHOL 128 07/29/2020 TRIG 121 07/29/2020 HDL 41 07/29/2020 LDL 44 06/02/2019 AST 25 04/19/2022 SODIUM 143 04/19/2022 POTASSIUM 4.1 04/19/2022 CHLORIDE 106 04/19/2022 CREATININE 0.98 04/19/2022 BUNSER 14 04/19/2022 CO2 26 04/19/2022 BNP 25 01/18/2021 TSH 1.83 06/02/2019 Detailed consent was obtained. The risk and benefit of the procedure were discussed with the patient. The patient is undergoing left heart catheterization. Pt labs were reviewed prior to the procedure. PROCEDURE: 1. The patient was brought to the cardiac catheterization laboratory after informed consent. 2. I provided direct face to face monitoring for conscious sedation administered by independently trained nurse using 25 mcg of fentanyl and 1.0 mg of versed. ??I directly observed the patient for 35 minutes. 3. The right radial artery was prepped and draped under aseptic condition. 4. ??2% Lidocaine was used for local anesthesia. 5. A 5F [place] sheath was placed in the right radial artery using a short Cook needle with the modified Seldinger technique without any difficulty. 6. A 5F / 110-cm long Ghanshyam catheter 3.5 was placed over the Versacore wire in the ascending aorta without any difficulty. 6. Left ventricular hemodynamics were obtained and pullback pressure was obtained. 7. This catheter was used to cannulate the left coronary artery and images were obtained in different views. Same catheter was used to cannulate ??the right coronary artery without difficulty and images obtained in different views. 8. This catheter was removed over the versacore/ J-wire. No complications noted. 9. Medication used NTG 200 mcg + Verapamil 2.5 mg intraarterially and 5000 unit of IV heparin. 1000 unit heparin given in radial sheath at the end of the procedure. Sheath is sutured and secured. RESULTS: Left Heart Hemodynamics: The left ventricular end-diastolic pressure is 19-20 mmHg. There is no gradient on pull back across the aortic valve. Angiography: Left Ventriculogram:Not done. Selective Coronary Arteriography: Left Coronary System: 1. The left main coronary artery is large caliber vessel and patent with luminal irregularities. 2. The circumflex coronary artery is non dominant vessel, . Proximal LCX is 30% atherosclerotic plaque noted. , First very proximal marginal branch stent is ??patent with luminal irregularities. Obtuse marginal branch is patent with luminal irregularities. 3. ??The right coronary artery is large dominant vessel, proximally 30% stenosed,mid RCA is 70% stenosed, distal RCA have luminal irregularities, PDA have luminal irregularities. Distal PLV branchs are occluded fills by left to right collaterals. 4. [...] RCA in view of abnormal stress test. The patient will follow-up with me in two- three weeks. I have discussed the findings in detail with the family. No complications were noted. Right radial artery arteriotomy site ?? instructions were given to the patient. No complications were ??Noted. Pt remained hemodynamically stable. [id number] I personally performed or supervised the procedure reported above and was physically present during the entire procedure. This note was written using a voice recognition system hardware device. ?? Please note there may be variance in spelling, stephanie, and syntax because of the voice recognition system hardware. ??Therefore, not every sentence has been reviewed in its entirety. ??If there are any concerns about verbage above please contact me ?? at [phone]. us Ari Bradley MD CV CARDIAC CATH PROCEDURES Fin al Result * (ABNORMAL) CBC without differential (04/25/2022 12:58 PM CDT) Pathologist [facility] WBC 6.5 3.8 - 9.9 K/cumm [facility] Hgb 11.5(L) 13.0 - 17.5 g/dL [facility] Hct 38.0(L) 38.9 - 50.3 % [facility] Plt 226 150 - 400 K/cumm [facility] MPV 11.4 9.1 - 12.3 fL [facility] RBC 4.83 4.30 - 5.80 M/cumm [facility] MCV 78.7(L) 81.3 - 96.4 fL [facility] MCH 23.8(L) 27.1 - 33.3 pg [facility] MCHC 30.3(L) 32.3 - 35.7 g/dL [facility] RDW CV 17.1(H) 11.1 - 14.9 % [facility] RDW SD 48.4(H) 35.7 - 48.1 fL [facility] NRBC abs 0.00 0.00 - 0.01 K/cumm [facility] Blood 04/25/2022 12:5 8 PM CDT 04/25/2022 1:23 PM CDT Narrative [facility] - 04/25/2022 1:44 PM CDT To be drawn after hydration bolus complete us Patti Cobb NP LAB BLOOD ORDERABLES Final Re sult [facility] Department [place] [address] * ECG 12 lead (04/25/2022 11:26 AM CDT) Ventricular Rate EKG/Min 78 BPM [facility] Atrial Rate 70 BPM [facility] QRS-Interval (MSEC) 104 ms [facility] QT-Interval (MSEC) 416 ms [facility] QTc 474 ms [facility] R [place] 0 degrees [facility] T [place] 11 degrees [facility] Diagnosis Atrial fibrillation possible inferior infarction, old Abnormal ECG When compared with ECG of 13-NOV-2019 09:27, No significant change was found Confirmed by WILLIAN QUIROGA M.D ([id number]) on 04/26/2022 11:33:48 AM [facility] 04/25/2022 11:2 6 AM CDT 04/26/2022 11:33 AM CDT us Patti Cobb NP ECG ORDERABLES Final Result Performing Organization Address [facility]/ZIP Co de Phone Number [facility] documented in this encounter Visit Diagnoses Diagnosis Abnormal EKG Nonspecific abnormal electrocardiogram (ECG) (EKG) Abnormal stress test Other nonspecific abnormal cardiovascular system function study Chest pain, unspecified type Coronary artery disease of [place] artery of [place] heart with stable angina pectoris (HCC) Acute diastolic congestive heart failure (CMS/HCC) (HCC) Abnormal cardiovascular stress test Other nonspecific abnormal cardiovascular system function study Coronary artery disease involving [place] coronary artery of [place] heart without angina pectoris Abnormal EKG Nonspecific abnormal electrocardiogram (ECG) (EKG) Abnormal stress test Other nonspecific abnormal cardiovascular system function study Chest pain, unspecified type Coronary artery disease of [place] artery of [place] heart with stable angina pectoris (HCC) Acute diastolic congestive heart failure (CMS/HCC) (HCC) Chest pain, unspecified type documented in this encounter Admitting Diagnoses Diagnosis Abnormal cardiovascular stress test Other nonspecific abnormal cardiovascular system function study Coronary artery disease involving [place] coronary artery of [place] heart without angina pectoris Abnormal EKG Nonspecific abnormal electrocardiogram (ECG) (EKG) Chest pain Unspecified chest pain Acute diastolic congestive heart failure (CMS/HCC) (HCC) documented in this encounter Administered Medications Inactive Administered Medications - up to 3 most recent administrations Medication Order MAR Action Action Date Dose Rate Site acetaminophen (TYLENOL) tablet 650 mg 650 mg, oral, Every 4 hours PRN, 1st line for pain, fever, fever greater than 38.3 C, Starting on Sat04/25/22 at 1747, Recovery (CV), Indications: Fever, PainIndications:Fever,Pain Given 04/25/2022 6:16 PM CDT 650 mg aspirin chewable tablet 162 mg 162 mg, oral, Once, On Sat04/25/22 at 1415, For 1 dose Given 04/25/2022 1:50 PM CDT 162 mg Carrier Fluids for Secondary Infusion - 0.9% Sodium Chloride 30 mL, intravenous, As needed, For priming tubing and/or flushing, Starting on Sat04/25/22 at 1109, Pre-Procedure (CV), 0-250 ml/hr to flush line after IV infusions when no maintenance IV ordered. Infuse 30mL at the same rate as the secondary infusion. Run as primary IV, not intended for KVO. ceFAZolin (ANCEF) 1 gram/10 mL in sterile water (premix) 1 g 1 g, intravenous, at 200 mL/hr, Administer over 3 Minutes, Once, On Sat04/25/22 at 1415, For 1 dose, Indications: Prophylaxis, SurgicalIndications:Prophyl axis, Surgical Given 04/25/2022 1:49 PM CDT 1 g 200 mL/hr clopidogreL (PLAVIX) tablet 525 mg 525 mg, oral, Once, On Sat04/25/22 at 1415, For 1 dose Given 04/25/2022 1:50 PM CDT 525 mg fentaNYL (SUBLIMAZE) preservative free injection As needed, Starting on Sat04/25/22 at 1255, Intra-Procedure (CV) Given 04/25/2022 12:55 PM CDT 25 mcg heparin 1,000 unit/mL injection As needed, Starting on Sat04/25/22 at 1258, Intra-Procedure (CV) Given 04/25/2022 1:20 PM CDT 1,000 Units Given 04/25/2022 12:58 PM CDT 5,000 Units heparin in 0.45% sodium chloride 25,000 units/250 mL (100 units/mL) infusion (premix) Continuous PRN, Starting on Sat04/25/22 at 1320, Intra-Procedure (CV) New Bag 04/25/2022 1:20 PM CDT 500 Units/hr 5 mL/hr heparin in 0.9% sodium chloride 25,000 unit/250 mL infusion (premix) 1,000 Units/hr (10 mL/hr), intravenous, Titrated, Starting on Sat04/25/22 at 1445, WEIGHT-BASED HEPARIN INFUSION Initial rate:: 6.3 Units/kg/hr. Max initial rate 1,000 units/hr. Adjust infusion based upon nomogram: PTT less than 40 seconds: Bolus if ordered (see PRN bolus order) , then increase infusion rate 3 units/kg/hour PTT 40 - 50.9 seconds: Bolus if ordered (see PRN bolus order), then increase infusion rate 2 units/kg/hour PTT 51 - 59.9 seconds: No bolus, increase infusion rate 1 unit/kg/hour PTT 60 - 94.9 seconds: No change PTT 95 - 104.9 seconds: No bolus, decrease infusion rate 1 unit/kg/hour PTT 105 - 114.9 seconds: Hold infusion for 30 minutes, then decrease infusion rate 2 units/kg/hour PTT 115 or greater seconds: Hold infusion for 1 hour, then decrease infusion rate 3 units/kg/hour Draw STAT PTT 6 hrs after initiation of heparin infusion, draw STAT PTT 6 hours after each dose/rate change, and every 6 hours until 2 consecutive PTTs are within therapeutic range. Once two consecutive PTT's are therapeutic (60-94.9 seconds), then draw PTT every AM until heparin is discontinued., Indications: Acute Coronary SyndromeIndications:Acute Coronary Syndrome New Bag 04/25/2022 2:26 PM CDT 1,000 Units/hr 10 mL/hr ioversoL (OPTIRAY 350) injection As needed, Starting on Sat04/25/22 at 1311, Intra-Procedure (CV) Given 04/25/2022 1:11 PM CDT 87 mL lidocaine (XYLOCAINE) 10 mg/mL (1 %) injection As needed, Starting on Sat04/25/22 at 1253, Intra-Procedure (CV), Indications: Administration of Local AnesthesiaIndications:Admi nistration of Local Anesthesia Given 04/25/2022 12:53 PM CDT 5 mL Right Radial midazolam (VERSED) 1 mg/mL preservative free injection Administer over 2 Minutes, As needed, Starting on Sat04/25/22 at 1255, Intra-Procedure (CV) Given 04/25/2022 12:55 PM CDT 1 mg nitroglycerin injection 100 mcg/mL in D5W 10 mL As needed, Starting on Sat04/25/22 at 1300, Intra-Procedure (CV) Given 04/25/2022 1:00 PM CDT 200 mcg sodium chloride 0.9% bolus 300 mL 300 mL, intravenous, Once, On Sat04/25/22 at 1145, For 1 dose, Pre-Procedure (CV), Immediately on arrival (at least 30 minutes prior to procedure) New Bag 04/25/2022 11:39 AM CDT 300 mL sodium chloride 0.9% flush 0.5-20 mL 0.5-20 mL, intra-catheter, Every 8 hours scheduled, First dose on Sat04/25/22 at 1400, Pre-Procedure (CV), Flush volume based on line type and size. sodium chloride 0.9% flush 0.5-20 mL 0.5-20 mL, intra-catheter, As needed, line care, Starting on Sat04/25/22 at 1109, Pre-Procedure (CV), Flush volume based on line type and size. Flush before and after each use. sodium chloride 0.9% infusion 150 mL/hr, intravenous, Continuous, Starting on Sat04/25/22 at 1145, Pre-Procedure (CV) New Bag 04/25/2022 11:40 AM CDT 150 mL/hr 150 mL/hr verapamiL (ISOPTIN) injection Administer over 2 Minutes, As needed, Starting on Sat04/25/22 at 1301, Intra-Procedure (CV) Given 04/25/2022 1:01 PM CDT 2.5 mg documented in this encounter Active and Recently Administered Medications Times are shown in CDT. Scheduled Medication Order 04/23/2022 04/24/2022 04/25/2022 aspirin chewable tablet 162 mg (COMPLETED) 162 mg, oral, Once, On Sat04/25/22 at 1415, For 1 dose 1350 (Given - Provid er: Kia Martinez RN) ceFAZolin (ANCEF) 1 gram/10 mL in sterile water (premix) 1 g (COMPLETED) 1 g, intravenous, at 200 mL/hr, Administer over 3 Minutes, Once, On Sat04/25/22 at 1415, For 1 dose, Indications: Prophylaxis, Surgical 1349 (Given - Provid er: Kia Martinez RN) clopidogreL (PLAVIX) tablet 525 mg (COMPLETED) 525 mg, oral, Once, On Sat04/25/22 at 1415, For 1 dose 1350 (Given - Provid er: Kia Martinez RN) sodium chloride 0.9% bolus 300 mL (COMPLETED)(Linked Group 1) 300 mL, intravenous, Once, On Sat04/25/22 at 1145, For 1 dose, Pre-Procedure (CV), Immediately on arrival (at least 30 minutes prior to procedure) 1139 (New Bag - Prov ider: Charlene Trejo RN) sodium chloride 0.9% flush 0.5-20 mL 0.5-20 mL, intra-catheter, Every 8 hours scheduled, First dose on Sat04/25/22 at 1400, Pre-Procedure (CV), Flush volume based on line type and size. 1400 (Not Given - Pr ovider: Kia Martinez RN - Reason: IV Infusing) Continuous Medication Order 04/23/2022 04/24/2022 04/25/2022 heparin in 0.9% sodium chloride 25,000 unit/250 mL infusion (premix) 1,000 Units/hr (10 mL/hr), intravenous, Titrated, Starting on Sat04/25/22 at 1445, WEIGHT-BASED HEPARIN INFUSION Initial rate:: 6.3 Units/kg/hr. Max initial rate 1,000 units/hr. Adjust infusion based upon nomogram: PTT less than 40 seconds: Bolus if ordered (see PRN bolus order) , then increase infusion rate 3 units/kg/hour PTT 40 - 50.9 seconds: Bolus if ordered (see PRN bolus order), then increase infusion rate 2 units/kg/hour PTT 51 - 59.9 seconds: No bolus, increase infusion rate 1 unit/kg/hour PTT 60 - 94.9 seconds: No change PTT 95 - 104.9 seconds: No bolus, decrease infusion rate 1 unit/kg/hour PTT 105 - 114.9 seconds: Hold infusion for 30 minutes, then decrease infusion rate 2 units/kg/hour PTT 115 or greater seconds: Hold infusion for 1 hour, then decrease infusion rate 3 units/kg/hour Draw STAT PTT 6 hrs after initiation of heparin infusion, draw STAT PTT 6 hours after each dose/rate change, and every 6 hours until 2 consecutive PTTs are within therapeutic range. Once two consecutive PTT's are therapeutic (60-94.9 seconds), then draw PTT every AM until heparin is discontinued., Indications: Acute Coronary Syndrome 1426 (New Bag - Prov ider: Mary Lou Hope RN - Comment: flat rate ordered 10 ml/hr. Not to titrate at this time - preprocedure)1645 (Stopped - Provider: Gem Gray RN) sodium chloride 0.9% infusion(Linked Group 1) 150 mL/hr, intravenous, Continuous, Starting on Sat04/25/22 at 1145, Pre-Procedure (CV) 1140 (New Bag - Prov ider: Charlene Trejo RN) sodium chloride 0.9% infusion 100 mL/hr, intravenous, Administer over 5 Hours, Continuous, Starting on Sat04/25/22 at 1830, For 4 hours, Recovery (CV) 1830 (Due) PRN Medication Order 04/23/2022 04/24/2022 04/25/2022 acetaminophen (TYLENOL) tablet 650 mg 650 mg, oral, Every 4 hours PRN, 1st line for pain, fever, fever greater than 38.3 C, Starting on Sat04/25/22 at 1747, Recovery (CV), Indications: Fever, Pain 1816 (Given - Provid er: Meet Orta RN) Carrier Fluids for Secondary Infusion - 0.9% Sodium Chloride 30 mL, intravenous, As needed, For priming tubing and/or flushing, Starting on Sat04/25/22 at 1109, Pre-Procedure (CV), 0-250 ml/hr to flush line after IV infusions when no maintenance IV ordered. Infuse 30mL at the same rate as the secondary infusion. Run as primary IV, not intended for KVO. fentaNYL (SUBLIMAZE) preservative free injection (CANCELED) As needed, Starting on Sat04/25/22 at 1255, Intra-Procedure (CV) 1255 (Given - Provid er: Nahed Ortiz RN) fentaNYL (SUBLIMAZE) preservative free injection (CANCELED) As needed, Starting on Sat04/25/22 at 1643, Intra-Procedure (CV) 1643 (Given - Provid er: Gem Gray RN)1705 (Canceled Entry - Provider: Gem Gray RN)1732 (Given - Provider: Gem Gray RN) heparin 1,000 unit/mL injection (CANCELED) As needed, Starting on Sat04/25/22 at 1258, Intra-Procedure (CV) 1258 (Given - Provid er: Ari Bradley MD)1320 (Given - Provider: Ari Bradley MD) heparin 1,000 unit/mL injection (CANCELED) As needed, Starting on Sat04/25/22 at 1702, Intra-Procedure (CV) 1702 (Given - Provid er: Anil Ramos MD) heparin in 0.45% sodium chloride 25,000 units/250 mL (100 units/mL) infusion (premix) (COMPLETED) Continuous PRN, Starting on Sat04/25/22 at 1320, Intra-Procedure (CV) 1320 (New Bag - Prov ider: Nahed Ortiz RN) ioversoL (OPTIRAY 350) injection (CANCELED) As needed, Starting on Sat04/25/22 at 1311, Intra-Procedure (CV) 1311 (Given - Provid er: Ari Bradley MD) ioversoL (OPTIRAY 350) injection (CANCELED) As needed, Starting on Sat04/25/22 at 1742, Intra-Procedure (CV) 1742 (Given - Provid er: Kam Adamson MD) lidocaine (XYLOCAINE) 10 mg/mL (1 %) injection (CANCELED) As needed, Starting on Sat04/25/22 at 1253, Intra-Procedure (CV), Indications: Administration of Local Anesthesia 1253 (Given - Provid er: Santiago Masterson MD) midazolam (VERSED) 1 mg/mL preservative free injection (CANCELED) Administer over 2 Minutes, As needed, Starting on Sat04/25/22 at 1255, Intra-Procedure (CV) 1255 (Given - Provid er: Nahed Ortiz RN) midazolam (VERSED) 1 mg/mL preservative free injection (CANCELED) Administer over 2 Minutes, As needed, Starting on Sat04/25/22 at 1643, Intra-Procedure (CV) 1643 (Given - Provid er: Gem Gray RN)1705 (Canceled Entry - Provider: Gem Gray RN)1732 (Given - Provider: Gem Gray RN) niCARdipine (CARDENE) 1 mg/10 mL in sodium chloride 0.9% (premix) (CANCELED) As needed, Starting on Sat04/25/22 at 1655, Intra-Procedure (CV) 1655 (Given - Provid er: Anil Ramos MD)1728 (Given - Provider: Kam Adamson MD) nitroglycerin injection 100 mcg/mL in D5W 10 mL (CANCELED) As needed, Starting on Sat04/25/22 at 1300, Intra-Procedure (CV) 1300 (Given - Provid er: Ari Bradley MD) nitroglycerin injection 100 mcg/mL in D5W 10 mL (CANCELED) As needed, Starting on Sat04/25/22 at 1655, Intra-Procedure (CV) 1655 (Given - Provid er: Anil Ramos MD)1706 (Given - Provider: Anil Ramos MD)1728 (Given - Provider: Kam Adamson MD) sodium chloride 0.9% flush 0.5-20 mL 0.5-20 mL, intra-catheter, As needed, line care, Starting on Sat04/25/22 at 1109, Pre-Procedure (CV), Flush volume based on line type and size. Flush before and after each use. sodium chloride 0.9% infusion (COMPLETED) Continuous PRN, Starting on Sat04/25/22 at 1651, Intra-Procedure (CV) 1651 (New Bag - Prov ider: Gem Gray, SURJIT) verapamiL (ISOPTIN) injection (CANCELED) Administer over 2 Minutes, As needed, Starting on Sat04/25/22 at 1301, Intra-Procedure (CV) 1301 (Given - Provid er: Ari Bradley MD) Linked Groups Order Group 1: sodium chloride 0.9% bolus 300 mL (COMPLETED)Jump to med 300 mL, intravenous, Once, On Sat04/25/22 at 1145, For 1 dose, Pre-Procedure (CV), Immediately on arrival (at least 30 minutes prior to procedure) Followed by sodium chloride 0.9% infusionJump to med 150 mL/hr, intravenous, Continuous, Starting on Sat04/25/22 at 1145, Pre- Procedure (CV) documented in this encounter Orders Medications Ordered That Laith ht Not Have Been Administered Count Last Ordered Date First Ordered Date Carrier Fluids for Secondary Infusion - 0.9% Sodium Chloride 04/25/2022 fentaNYL (SUBLIMAZE) preserv ative free injection 04/25/2022 heparin 1,000 unit/mL injection heparin in 0.45% sodium chlo ride 25,000 units/250 mL (100 units/mL) infusion (premix) 04/25/2022 heparin in 0.9% sodium chlor joanie 25,000 unit/250 mL infusion (premix) 04/25/2022 ioversoL (OPTIRAY 350) injection 04/25/20 midazolam (VERSED) 1 mg/mL p reservative free injection 04/25/2022 niCARdipine (CARDENE) 1 mg/1 0 mL in sodium chloride 0.9% (premix) 04/25/2022 nitroglycerin injection 100 mcg/mL in D5W 10 mL 04/25/2022 sodium chloride 0.9% flush 0.5-20 mL 2 04/07 sodium chloride 0.9% infusion 2 04/25/2022 Discharge Count Last Ordered Date First Orde red Date DISCHARGE PATIENT 1 04/25/2022 CORE MEASURES Count Last Ordered Date First Ord ered Date REASON FOR NO VTE PROPHYLAXIS AT ADMISSION 04/25/2022 REASON FOR NOT PRESCRIBING S TATIN MEDICATION AT DISCHARGE 1 04/25/2022 Case Request Count Last Ordered Date First Orde red Date CASE REQUEST INVESTMENT BANKING MANAGER 1 04/25/2022 documented in this encounter Care Teams Hide Inspector And Sorter Relationship Specialty Start Date End Date Gianluca Price MD PCP - General 06/18/17 documented as of this encounter
--- OUTSIDE RECORDS SUMMARY | 2024-10-05 02:51 | XMS_ITS | Encounter Summary ---
Author Organization [facility] Address [address] [place] [address] Phone Care Team Providers Care Infant Teacher Name Role Phone Gianluca Price MD Primary Care Provider Ayden Coorna DO Unavailable [phone] Roberto Medley MD Unavailable [phone] Reason for Visit * Reason Onset Date Comments Scheduling Appointments 12/10/2022 Encounter Details Date Type Department Care Team (Late st Contact Info) Description 12/10/2022 Telephone [facility] Surgery [address] [place] [address] Medical Office Building [address] [place] [address] Olivia Mccarty RMA Scheduling Appointments Social History Tobacco Use Types Packs/Day Years Used Date Smoking Tobacco: Never Smokeless Tobacco: Never Alcohol Use Standard Drinks/Week Comments Yes 0 (1 standard drink = 0.6 oz pur e alcohol) Occasionally AUDIT-C Answer Date Recorded Q1: How often do you have a drink containing alc ohol? 2-4 times a month 12/10/2022 Q2: How many drinks containi ng alcohol do you have on a typical day when you are drinking? 1 or 2 12/10/2022 Q3: How often do you have si x or more drinks on one occasion? 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 UX DEVELOPER * Telephone Encounter - Olivia Mccarty RMA - 12/10/2022 9:18 AM CST ----- Message from Sage Howard MD sent at 12/10/2022 9:13 AM UI UX DEVELOPER ----- Good morning, Needs a [address] Mdeley. Had a seton placed at [facility]. Thanks. UX DEVELOPER documented in this encounter Plan of Treatment Not on file documented as of this encounter Visit Diagnoses Not on filedocumented in this encounter Care Teams Infant Teacher Relationship Specialty Start Date End Date Gianluca Price MD PCP - General 06/18/17 Ayden Corona DO [address] [facility] [address] [place] [address] Referring Physician Surgery 10/29/22 Roberto Medley MD [id number] [place] [address] Surgeon Colon and Rectal Surgery 11/23/22 documented as of this encounter
--- OUTSIDE RECORDS SUMMARY | 2024-10-05 02:51 | XMS_ITS | Encounter Summary ---
Author Organization [facility] Address [address] [place] [address] Phone Care Team Providers Care Property Caretaker Name Role Phone Gianluca Price MD Primary Care Provider Reason for Visit * Reason Onset Date Comments Procedure question/concern 04/26/2022 PCI Encounter Details Date Type Department Care Team (Late st Contact Info) Description 04/26/2022 Telephone [facility] Cardiology [address] [facility] Advanced Medicine 8th [place] [address] [place] [address] Ari Bradley MD [address] [facility] [address] [place] [address] Procedure question/concern (PCI) Social History Tobacco Use Types Packs/Day Years [...] on file 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 Dr. Price ofc calling in regards to pt stent placement and would like to speak RN regarding this matter. Dr. Price is pt pcp Called Dr. Price's office and spoke with Lala and confirmed that pt had a PCI in the RCA yesterday. * Telephone Encounter - Dang Browning - 04/26/2022 8:57 AM CDT Kirk Price of[facility] calling in regards to pt stent placement and would like to speak RN regarding this matter. Dr. Price is pt pcp documented in this encounter Plan of Treatment Not on file documented as of this encounter Visit Diagnoses Not on filedocumented in this encounter Care Teams Property Caretaker Relationship Specialty Start Date End Date Gianluca Price MD PCP - General 06/18/17 documented as of this encounter
--- OUTSIDE RECORDS SUMMARY | 2024-10-05 02:51 | XMS_ITS | Encounter Summary ---
Author Organization [facility] Healthcare Address [address] [place] [address] Care Team Providers Care Value Stream Manager Name Role Phone Gianluca Price MD Primary Care Provider Chloe Ayden Pham DO Unavailable [phone] Roberto Medley MD Unavailable [phone] Reason for Visit * Auth/Cert (Routine) Specialty Diagnoses / Procedures Referred By Contac t Referred To Contact Diagnoses Anal fistula Anal fistula [K60.3] Procedures AL ANRCT XM SURG REQ ANES GENERAL SPI/EDRL DX AL SURG TX ANAL FISTULA SUBQ AL PLACEMENT SETON EXAM UNDER ANESTHESIA - RECTUM ANAL FISTULOTOMY PLACEMENT SETON Referral ID Status Reason Start Date Expiration Date Visits Re quested Visits Authorized [id number] 1 1 Encounter Details Date Type Department Care Team (Late st Contact Info) Description 12/10/2022 8:30 AM BRICK KILN BURNER Anesthesia Event [facility] Operating Room [address] [place] [address] Nehemiah Hansen MD [address] [place], [place] [id number] Raquel Parikh NP [address] [facility] [phone] [place] [address] Anesthesia Record Procedure Summary Procedure Name Responsible Anesthesiologist Anesthesia Start Time Anesthesia Stop Time EXAM UNDER ANESTHESIA - RECTUM (Anus) Nehemiah Hansen MD 12/10/22 0830 12/10/22 0901 Events Date Time Event Comment 12/10/2022 0706 In Preop 0708 AN Equip Check 0729 0830 An Start 0830 An Start Data 0831 In Room 0836 Start Supplemental O2 0836 An Induction The patient was reevaluated immediately before moderate or deep sedation use and before anesthesia induction. 0836 Anesthesia Ready 0839 Proc Start 0839 Incision Start 0850 Proc Fin 0854 Out of Room 0854 an stop data 0901 Handoff to RN I completed my handoff [...] disposition at the time of handoff: PACU 900 Handoff to RN I completed my handoff [...] disposition at the time of handoff: PACU 900 An Stop Meds Name Total midazolam 2 mg/2 mL 2 mg fentaNYL PF 100 mcg Lidocaine IV 1% 50 mg propofol 100 mg ondansetron PF 4 mg dexAMETHasone 4 mg/mL 4 mg Lactated Ringer's (LR) infusion 0 mL * Agents Name O2 N2O Air * Blood No blood administrations on file. Lines, Drains, and Airways Type Details Placement Removal Peripheral IV Placement Date: 12/10/22; Placement Time: 740; Catheter Size: 22 G; Orientation: Anterior, Left; Location: Wrist; Removal Date: 12/10/22; Removal Time: 1007 12/10/22 0741 by Dulce Caruso RN 12/10/22 1007 by Cece Cabral, SURJIT RETIRED Surgical Site 12/10/22; 0852; Ruth-anal; 01/09/24; [...] on file Legal Sex Male 3:11 AM BRICK KILN BURNER Gender Identity Not on file Sexual Orientation Not on file Occupation Industry Job Start Date Job End Date Retired Not on file Not on file Not on file documented as of this encounter OR Notes * Anesthesia Postprocedure Evaluation - Nehemiah Hansen MD - 12/10/2022 9:56 AM CST Patient: Du Anderson Procedure Summary Date: 12/10/22 Room / Location: [facility]PERATING ROOM 02 / [facility] Anesthesia Start: 829 Anesthesia Stop: 900 Procedures: EXAM UNDER ANESTHESIA - RECTUM (Anus) PLACEMENT SETON (Anus) Diagnosis: Anal fistula (Anal fistula [K60.3]) Surgeons: Roberto Medley MD Responsible Provider: Nehemiah Hansen MD Anesthesia Type: general ASA Status: 3 Anesthesia Type: general Last vitals BP 99/61 Pulse 89 Temp 36.4 ??C (97.5 ??F) Resp 15 SpO2 98% Anesthesia Post Evaluation Patient location during evaluation: PACU Patient participation: complete - patient participated Level of consciousness: fully awake Pain score: 3 Pain management: adequate Airway patency: adequate Evidence of recall: no Cardiovascular status: hemodynamically stable and acceptable Respiratory status: acceptable and room air Hydration status: acceptable Pt is: normothermic Nausea/Vomiting status: none and resolved and tolerable No notable events documented. K KILN BURNER * Anesthesia Preprocedure Evaluation - Nehemiah Hansen MD - 11/26/2022 4:04 PM CST Images from the original note were not included. [facility] Preoperative [facility] and Planning Preoperative Evaluation Record Evaluation type/location: TPAP from [facility] Planned procedure site: [facility] OR Date: 11/26/22 NOTE: This note represents a preoperative evaluation initiated via telephone interview. NO PHYSICALEXAM was performed at the time of initial assessment. A physical exam may be added to this note anddocumented below. Anesthesia Evaluation Procedure(s): EXAM UNDER ANESTHESIA - RECTUM ANAL FISTULOTOMY PLACEMENT SETON Pre-Op Diagnosis Codes: * Anal fistula [K60.3] HISTORY HPI Du Anderson is a 66 y.o. male undergoing EUA of rectum, anal fistulotomy and seton placement foranal fistula. Past Medical History Information obtained from: patient and chart. Neurological Pertinent negatives: neuromuscular disease; CVA/stroke and TIA Cardiovascular + Hypertension + Hyperlipidemia + CAD + Drug-eluting stent(s) (04/2022: proximal mid RCA;2015: trifurcating left main circumflex, inferior ramus, superior ramus, and ostial LAD) - Prior stent(s) date: 04/25/2022;2015. + CHF (per 07/2022 ECHO) CHF Etiology: ischemic. Diastolic function: unspecified dysfunction LVEF: 40-50%. + Current valvular disease (07/2022 ECHO) - MR - mild; TR - mild. + Atrial fibrillation/flutter - Rhythm type: permanent (AF episode >1yr). 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 Pertinent negatives: COPD; pulmonary hypertension; no O2 use outside the hospital and non-smoker Hepatic / Heme Pertinent negatives: liver disease Renal / Pertinent negatives: renal disease and dialysis Endocrine / Other + Obesity (BMI >30) (BMI 40.91)- morbid obesity (BMI>40). Pertinent negatives: diabetes mellitus; thyroid disease; cancer history; transplanted organ and infectious disease Functional Capacity Functional capacity: <4 METs Comments: Back pain limits activity Review of Systems + palpitations (2/2 atrial fibrillation ) Pertinent negatives: productive cough; SOB; recent cold/flu; fever; chest pain; orthopnea; PND; previous transfusion; bleeding problems and syncope PAT Summary and Plans Cardiac risk classification of planned procedure: low cardiac risk. Preoperative assessment status: complete. Initial preoperative evaluation discussed with: Santiago Ashford MD Additional comments: Du Anderson is a 66 y.o. male who is being evaluated prior to undergoing a low cardiac risk surgery. Revised Cardiac Risk Index factors are (ischemic heart disease and historyof CHF) for a total RCRI of 2 out of 6. Functional capacity is <4 METs (specifically:back pain limits activity). PRELIMINARY Obstructive sleep apnea (PHILLIP) screening status is HIGH RISK due to known PHILLIP. Full PHILLIP screening deferred until DOS due to TPAP. Blood bank needs for day of procedure: No type and screen needed Pending labs/tests include: no labs indicated DOS: none This assessment was performed via telephone. Therefore the physical exam has been deferred to the day of surgery team. The patient was provided with preoperative instructions for their medications. The patient was instructed to shower/bathe the night prior and the morning of the planned procedure using an antibacterial soap. This patient has a history of atrial fibrillation at LOW risk for perioperative thromboembolic events with a HTK6MS1-FAQu score of 4 and no known history of related thromboembolic events, as per the 2017 ACC Expert Consensus Pathway. The patient is on oral anticoagulation therapy with apixaban (ELIQUIS) and is scheduled for a procedure with a planned/possible nerve block and/or is at low or intermediate risk for perioperative thrombosis. Estimated creatinine clearance is presumed to be greater than 30 ml/min. We recommend holding all doses of this anticoagulant for 72 hours prior to the procedure. Therapeutic anticoagulation should be resumed post-operatively when the bleeding risk is acceptable. Alternative anticoagulationtherapies can be used in the interim if acceptable. The patient reports that such a plan is alreadyin place. Please call the CPAP chart room clinician ([phone]) to revisit risk assessment, with any questions, or to discuss alternative management plans.?? The patient is on clopidogrel therapy and has a history of CRISTHIAN, CAD and atrial fibrillation. Due tothe likely higher bleeding risk of this drug, we recommend switching the patient to aspirin therapyfor the perioperative period. We recommend discontinuing clopidogrel for 7 days prior to the procedure and starting aspirin 81 mg daily at that time. The patient can be switched back to their original medication when the bleeding risk has decreased. Plerts staff message sent to surgeon's office. Please call the CPAP chart room clinician ([phone]) with any questions or to discuss alternative management plans. Patient instructions were provided electronically sent via [facility]. Patient verbalized understanding of preoperative plan. Preoperative evaluation performed by Raquel Parikh NP on 11/27/22 at 9:56 AM. TPAP assessment complete . Patient Active Problem List Diagnosis ??? Abnormal cardiovascular stress test ??? Shortness of breath ??? Hyperlipidemia ??? Hypertension ??? Coronary artery disease involving teller coronary artery of teller heart without angina pectoris ??? Low back pain, non-specific ??? Abnormal EKG ??? Chest pain ??? Acute diastolic congestive heart failure (CMS/HCC) (HCC) ??? Anal fistula Past Medical History: Diagnosis Date ??? Arthritis ??? Atrial fibrillation (CMS/HCC) (HCC) ??? CHF (congestive heart failure) (CMS/HCC) (HCC) ??? Coronary artery disease ??? Gout ??? Hypercholesterolemia ??? Hypertension ??? Mitral regurgitation ??? PHILLIP (obstructive sleep apnea) ??? Osteoarthritis ??? Tricuspid regurgitation Past Surgical History: Procedure Laterality Date ??? CARDIAC STENT PLACEMENT 2015 4 ??? CARDIAC STENT PLACEMENT 04/2022 ??? CARDIOVERSION 2019 [facility] guided ??? PARTIAL HIP ARTHROPLASTY Right 09/2021 ??? POSTERIOR FUSION LUMBAR SPINE 2014 L3-5 PSF ([facility]) ??? TOTAL HIP ARTHROPLASTY Left 12/2019 ??? TOTAL KNEE ARTHROPLASTY Right 01/2016 ??? TOTAL KNEE ARTHROPLASTY Left 05/2018 Allergies Allergen Reactions ??? Rosuvastatin Muscle pain Med List Status: Nurse Complete Set By: Clara Cruz RN at 11/26/2022 3:31 PM Taking? Last Dose Start Date End Date Provider allopurinol (ZYLOPRIM) 300 mg tablet 11/25/2022 06/01/18 -- Abran Canales MD apixaban (ELIQUIS) 5 mg tablet 11/26/2022 07/06/20 -- Hussain Mitchell MD Take 1 tablet (5 mg total) by mouth 2 (two) times a day Patient taking differently: Take 5 mg by mouth 2 (two) times a day atorvastatin (LIPITOR) 80 mg tablet 11/26/2022 04/19/22 04/19/23 Ari Bradley MD Take 1 tablet (80 mg total) by mouth daily Patient taking differently: Take 80 mg by mouth cleaning staff supervisor before breakfast carvediloL (COREG) 6.25 mg tablet 11/26/2022 03/11/22 -- Ari Bradley MD TAKE 1 TABLET BY MOUTH TWICE DAILY WITH MEALS Patient taking differently: Take 6.25 mg by mouth 2 (two) times a day with meals Notes: Requesting 1 year supply cholecalciferol (VITAMIN D-3) 45201 unit capsule 11/26/2022 -- -- Abran Canales MD clopidogreL (PLAVIX) 75 mg tablet 11/26/2022 07/29/22 -- Ari Bradley MD TAKE 1 TABLET BY MOUTH DAILY Patient taking differently: Take 75 mg by mouth cleaning staff supervisor before breakfast Notes: Requesting 1 year supply dapagliflozin (FARXIGA) 10 mg tablet 11/26/2022 06/21/22 -- Ari Bradley MD Take 1 tablet (10 mg total) by mouth daily Patient taking differently: Take 10 mg by mouth cleaning staff supervisor before breakfast Notes: [id number] 09/05/2024 furosemide (LASIX) 80 mg tablet 11/26/2022 04/19/22 -- Ari Bradley MD Take 1 tablet (80 mg total) by mouth daily Patient taking differently: Take 80 mg by mouth cleaning staff supervisor before breakfast multivitamin capsule 11/26/2022 -- -- Abran Canales MD niacin 500 mg tablet 11/26/2022 10/05/19 11/26/22 Hussain Mitchell MD Take 1 tablet (500 mg total) by mouth 2 (two) times a day with meals Patient taking differently: Take 500 mg by mouth 2 (two) times a day with meals nitroglycerin (NITROSTAT) 0.4 mg SL tablet -- 06/21/22 06/21/[address] 1 tablet (0.4 mg total) under the tongue every 5 (five) minutes as needed for chest pain (prn) Notes: Emergency use potassium chloride ER 20 mEq CR tablet 11/26/2022 09/06/22 -- Ari Bradley MD Take 1 tablet (20 mEq total) by mouth 2 (two) times a day Notes: Last K+: 4.0 on 06/21/22 sacubitriL-valsartan (ENTRESTO) 24-26 mg tablet 11/26/2022 03/15/22 -- Ari Bradley MD Take 1 tablet by mouth 2 (two) times a day No current facility-administered medications for this encounter. Current Outpatient Medications: ??? allopurinol (ZYLOPRIM) 300 mg tablet ??? apixaban (ELIQUIS) 5 mg tablet ??? atorvastatin (LIPITOR) 80 mg tablet ??? carvediloL (COREG) 6.25 mg tablet ??? cholecalciferol (VITAMIN D-3) 11949 unit capsule ??? clopidogreL (PLAVIX) 75 mg tablet ??? dapagliflozin (FARXIGA) 10 mg tablet ??? furosemide (LASIX) 80 mg tablet ??? multivitamin capsule ??? niacin 500 mg tablet ??? potassium chloride ER 20 mEq CR tablet ??? sacubitriL-valsartan (ENTRESTO) 24-26 mg tablet ??? nitroglycerin (NITROSTAT) 0.4 mg SL tablet Social History Tobacco Use Smoking Status Never Smokeless Tobacco Never Alcohol Use: Not At Risk ??? Frequency of Alcohol Consumption: 2-4 times a month ??? Average Number of Drinks: 1 or 2 ??? Frequency of Binge Drinking: Never Substance and Sexual Activity Drug Use Never Family History Problem Relation Age of Onset ??? Heart attack Father 59 Family history of heart attack - (Added by TW Conv) ??? Hypertension Father ??? Diabetes Mother ??? Hypertension Mother ??? Heart disease Brother ??? Hypertension Brother There were no vitals filed for this visit. Relevant diagnostics: ECG(s): N/A Echocardiogram(s): 07/20/2022: SUMMARY: LA is markedly dilated. Normal RV cavity size. LV cavity size is normal. Normal LV wall thickness/mass. Mild LV global hypokinesis. Normal Inferior vena cava. Normal aorta. No AR seen, Mild MR, no , no MS, mild TV regurgitation, normal PV.Diastolic function: indeterminate.LVEF 45%. Stress test(s): 07/12/2021: Impression Pharmaceutical Myocardial perfusion imaging is abnormal. [...] LV dilatation present. ?? Clinically normal ECG. Electrocardiographically normal ECG. Cardiac catheterization(s): 04/25/2022: Interventional Comments Right coronary artery was wired [...] result with 0% stenosis ANTHONY 3 flow. ?? - Diagnostic Impression Successful drug-eluting Synergy stent to the proximal mid right coronary artery with 0% stenosis ANTHONY 3 flow. PFT(s): N/A Vascular studies: N/A Other: N/A PT: No results found for requested labs within last 720 hours. INR: No results found for requested labs within last 720 hours. APTT: No results found for requested labs within last 720 hours. Hgb A1C: No results found for requested labs within last 720 hours. CBC RBC: No results found for requested labs within last 720 hours. RDW: No results found for requested labs within last 720 hours. MCHC: No results found for requested labs within last 720 hours. MCH: No results found for requested labs within last 720 hours. MCV: No results found for requested labs within last 720 hours. Hct: No results found for requested labs within last 720 hours. Hgb: No results found for requested labs within last 720 hours. WBC: No results found for requested labs within last 720 hours. MPV: No results found for requested labs within last 720 hours. Platelets: No results found for requested labs within last 720 hours. RDW CV: No results found for requested labs within last 720 hours. RDW Sd: No results found for requested labs within last 720 hours. BMP Glucose: No results found for requested labs within last 720 hours. Calcium: No results found for requested labs within last 720 hours. Sodium: No results found for requested labs within last 720 hours. Potassium: No results found for requested labs within last 720 hours. CO2: No results found for requested labs within last 720 hours. Chloride: No results found for requested labs within last 720 hours. BUN: No results found for requested labs within last 720 hours. Creatinine: No results found for requested labs within last 720 hours. Dawson index score: 95 DOS Physical Exam Medical history, medications, and allergies reviewed. Attestation: This PAT evaluation Airway Exam: Mallampati: III Cervical ROM: FROM Cardiovascular Exam: Rate: regular Rhythm: regular Pulmonary Exam: LCTA, bilat Anesthesia Plan ASA 3 My patient is approved for the Anesthesia Controlled Medication protocol when under care of a [employer] FAC[employer] Planned anesthesia: General Informed Consent: Anesthesia plan and risks discussed with patient. Plan and Consent Comments: M obesity, ischemic cardiomyopathy last Ej fx 45%; Plavix last dose >5d, Eliquis last dose >72 hours Consent and Attending signature: I and/or my designee have discussed the anesthesia plan, benefits, possible alternatives, parental presence at time of induction (if indicated), and clinically relevant risks that may include dental injury, unintentional awareness, and/or other complications. The patient and/or parent/legal guardian understand, and agree to proceed. All questions answered. K KILN BURNER K KILN BURNER documented in this encounter Plan of Treatment Not on file documented as of this encounter Visit Diagnoses Not on filedocumented in this encounter Administered Medications Inactive Administered Medications - up to 3 most recent administrations Medication Order MAR Action Action Date Dose Rate Site dexAMETHasone (DECADRON) 4 mg/mL injection intravenous, Administer over 2 Minutes, As needed, Starting on Sat12/10/22 at 0841, Anesthesia Intra-op Given 12/10/2022 8:41 AM BRICK KILN BURNER 4 mg fentaNYL (SUBLIMAZE) preservative free injection intravenous, As needed, Starting on Sat12/10/22 at 0836, Anesthesia Intra-op Given 12/10/2022 8:39 AM BRICK KILN BURNER 50 mcg Given 12/10/2022 8:36 AM BRICK KILN BURNER 50 mcg Lactated Ringer's (LR) infusion 30 mL/hr, intravenous, Continuous, Starting on Sat12/10/22 at 0745, For 4 hours, Pre-Op, Use a 500 ml bag for End Stage Renal Disease Patients. Discontinue if fluid still running once patient arrives to floor. Rate/Dose Change 12/10/2022 8:43 AM BRICK KILN BURNER 30 mL/hr Rate/Dose Verify 12/10/2022 8:30 AM BRICK KILN BURNER 30 mL/h r New Bag 12/10/2022 7:41 AM BRICK KILN BURNER 30 mL/hr 30 mL/hr lidocaine PF (XYLOCAINE) 10 mg/mL (1 %) preservative free injection intravenous, As needed, Starting on Sat12/10/22 at 0836, Anesthesia Intra-op Given 12/10/2022 8:36 AM BRICK KILN BURNER 50 mg midazolam (VERSED) 1 mg/mL injection intravenous, As needed, Starting on Sat12/10/22 at 0836, Anesthesia Intra-op Given 12/10/2022 8:36 AM BRICK KILN BURNER 2 mg ondansetron (ZOFRAN) injection intravenous, Administer over 2 Minutes, As needed, Starting on Sat12/10/22 at 0841, Anesthesia Intra-op Given 12/10/2022 8:41 AM BRICK KILN BURNER 4 mg propofoL (DIPRIVAN) 10 mg/mL IV intravenous, As needed, Starting on Sat12/10/22 at 0836, Anesthesia Intra-op Given 12/10/2022 8:36 AM BRICK KILN BURNER 100 mg documented in this encounter Care Teams Value Stream Manager Relationship Specialty Start Date End Date Gianluca Price MD PCP - General 06/18/17 Ayden Corona DO [address] [address] Referring Physician Surgery 10/29/22 Roberto Medley MD [phone] [place] [address] Surgeon Colon and Rectal Surgery 11/23/22 documented as of this encounter
--- OUTSIDE RECORDS SUMMARY | 2024-10-05 02:51 | XMS_ITS | Encounter Summary ---
Author Organization [facility] Healthcare Address [address] [place] [address] Care Team Providers Care Equipment Maintenance Superintendent Name Role Phone Gianluca Price MD Primary Care Provider ChloeAyden DO Unavailable [phone] Roberto Medley MD Unavailable [phone] Reason for Visit * Auth/Cert (Routine) Specialty Diagnoses / Procedures Referred By Contac t Referred To Contact Diagnoses Anal fistula Anal fistula [K60.3] Procedures OH ANRCT XM SURG REQ ANES GENERAL SPI/EDRL DX OH SURG TX ANAL FISTULA SUBQ OH PLACEMENT SETON EXAM UNDER ANESTHESIA - RECTUM ANAL FISTULOTOMY PLACEMENT SETON Referral ID Status Reason Start Date Expiration Date Visits Re quested Visits Authorized [id number] 1 1 Encounter Details Date Type Department Care Team (Latest Contact Info) Description 12/10/2022 6:31 AM QUALITY TECHNICIAN FIBERGLASS - 12/10/2022 11:00 AM QUALITY TECHNICIAN FIBERGLASS Hospital Encounter [facility] Operating Room [address] [place] [address] Roberto Medley MD [id number] [place] [address] Discharge Disposition: Discharge to home or self [...] on file Legal Sex Male 3:11 AM QUALITY TECHNICIAN FIBERGLASS Gender Identity Not on file Sexual Orientation Not on file Occupation Industry Job Start Date Job End Date Retired Not on file Not on file Not on file documented as of this encounter Last Filed Vital Signs Vital Sign Reading Time Taken Comments Blood Pressure 124/73 12/10/2022 9:50 AM QUALITY TECHNICIAN [facility]ER[employer] Pulse 89 12/10/2022 9:50 AM QUALITY TECHNICIAN FIBERGLASS Temperature 36.3 ??C (97.3 ??F) 12/10/2022 9:35 AM CS T Respiratory Rate 22 12/10/2022 9:50 AM QUALITY TECHNICIAN FIBERGLASS Oxygen Saturation 97% 12/10/2022 9:50 AM QUALITY TECHNICIAN FIBERGLASS Inhaled Oxygen Concentration - - Weight 156.5 kg (345 lb) 11/26/2022 3:30 PM QUALITY TECHNICIAN FIBERGLASS Height 195.6 cm (6' 5 ) 11/26/2022 3:30 PM QUALITY TECHNICIAN FIBERGLASS Body Mass Index 40.91 11/26/2022 3:30 PM QUALITY TECHNICIAN F[employer]ERGL[facility] documented in this encounter Discharge Instructions * Discharge Instructions* Cece Cabral RN - 12/10/2022 9:09 AM QUALITY TECHNICIAN [employer]ERGLASS You may shower immediately after surgery, allow soapy water to run over the area, rinse clean and gently pat dry. Apply a dry gauze or gauze with antibiotic ointment daily or as needed when soiled until there is no longer drainage on the dressing when you go to change it. Alternate over the counter Tylenol and ibuprofen if you have no contraindication to these medications for pain. You may have been prescribed an additional medication for pain - take this only if the over the counter medication is insufficient as the prescription medication causes constipation. Soak your bottom in a few inches of warm water in a bathtub or basin (Sitz baths) three times a dayand after bowel movements to help with pain control and to keep the area clean. It is important to prevent constipation. If you are taking prescription pain medication, also take the prescribed stool softener and add an over the counter laxative like Miralax as needed. Please call the office if you have gone more than 48 hours without a bowel movement for instruction. You have received anesthesia, therefore, for the next 24 hours and/or while taking narcotic pain medication; -Do NOT drive a vehicle -Do NOT drink alcohol -Do NOT make important personal or business decisions or sign legal documents. Examples of narcotic pain medication include Percocet, Oxycontin, Cusseta, Hydrocodone, and Oxycodone. FAQs (frequently asked questions) about Surgical Site Infections What is a Surgical Site Infection (SSI)? A surgical site infection is and infection that occurs after surgery in the part of the body where the surgery took place. Most patients who have surgery do not develop an infection. However, infections develop in about 1 to 3 out of every 100 patients who have surgery. Some of the common symptoms fo a surgical site infection are: Redness and pain around the area where you had surgery Drainage of cloudy fluid from your surgical wound Fever Can SSIs be treated? Yes. Most surgical site infections can be treated with antibiotics. The antibiotic given to you depends on the bacteria (germs) causing the infection. Sometimes patients with SSIs causing the infection. Sometimes patients with SSIs also need another surgery to treat the infection. What are some of the things that hospitals are doing to prevent SSIs? To prevent SSIs, doctors, nurses, and other healthcare providers: Clean their hands and arms up to their elbows with an antiseptic agent just before the surgery. Clean their hands with soap and water or an alcohol-based hand rub before and after caring for eachpatient. May remove some of your hair immediately before your surgery using electric clippers if the hair isin the same area where the procedure will occur. They should not shave you with a razor. Wear special hair covers, masks, gowns, and gloves during surgery to keep the surgery area clean. Give you antibiotics before your surgery starts. In most cases, you should get antibiotics within 60 minutes before the surgery starts and the antibiotics should be stopped within 24 hours after surgery. Clean the skin at the site of your surgery with a special soap that kills germs. What can I do to help prevent SSIs? Before your surgery: Tell your doctor about other medical problems you may have. Health problems such as allergies, diabetes, and obesity could affect your surgery and your treatment. Quit smoking. Patients who smoke get more infections. Talk to your doctor about how you can quit before your surgery. Do not shave near where you will have surgery. Shaving with a razor can irritate your skin and makeit easier to develop an infection. At the time of your surgery: Speak up if someone tries to shave you with a razor before surgery. Ask why you need to be shaved and talk with your surgeon if you have any concerns. Ask if you will get antibiotics before surgery. After your surgery: Make sure that your healthcare providers clean their hands before examining you, either with soap and water or an alcohol-based hand rub. If you do not see you providers clean their hands, please ask them to do so. Family and friends who visit you should not touch the surgical wound or dressings. Family and friends should clean their hands with soap and water or an alcohol- based hand rub beforeand after visiting You. If you do not see them clean their hands, ask them to clean their hands. What do I need to do when I go home from the hospital? Before you go home, your doctor or nurse should explain everything you need to know about taking care of your wound. Make sure you understand how to care for your wound before you leave the hospital. Always clean your hands before and after caring for your wound. Before you go home, make sure you know who to contact if you have questions or problems after you get home. If you have any symptoms of an infection, such as a redness and pain at the surgery site, drainage,or fever, call your doctor immediately. If you have additional questions, please ask your doctor or nurse. Safety Tips for Preventing Falls at Home Falls happen at home for many reasons. Here are several things that are known to add to your risk of falling: Poor vision or hearing History of falls Use of an assistive device, such as a cane or walker Poor nutrition Certain medications Multiple medications Being older than 65 years of age Conditions in the home, such as slippery floors, loose rugs, cords on the floor If you answer ???yes?? to any of the following questions, please consider discussing your risk of falling with your primary care practitioner: Have you fallen in the last year? Do you feel unsteady when standing or walking? Do you have a fear of falling? If your primary care practitioner recommends physical therapy, we are available to assist: [facility] STAR: [facility] [phone] [place] [phone] [facility] [phone] How are some things that you can do that will lower your risk for falls at home: Arrange furniture to prevent tripping or bumping into it. Keep a light on in the bedroom & bathroom to help you see at night. Have your doctor or pharmacist review your medications. Remove things that you can trip over like phone cords, rugs & footstools. Wear sturdy non-skid slippers or shoes with flat or low heels Use handrails when going up & down stairs. Take one step at a time. Begin a regular exercise program When getting up, sit on the edge of the bed/chair for a few minutes before standing. Sit & stand up slowly. Avoid tilting your head back. Watch out for sidewalks & curbs that are not even. Replace worn walker, cane & crutch tips. Disclaimer: This material provides general information only. It should not be used in place of the advice, instructions, or treatment given by your doctor or other health animal caregiver. ITY TECHNICIAN FIBERGLASS ITY TECHNICIAN [facility] documented in this encounter Medications at Time of Discharge allopurinol (ZYLOPRIM) 300 mg tabletIndication s:prevention of acute gout attack Take 1 tablet (300 mg total) by mouth nightly 06/01/2018 cholecalciferol (VITAMIN D-3) 44872 unit capsuleIndicatio ns:supplement Take 1 capsule (10,000 Units total) by mouth tour manager before breakfast multivitamin capsuleIndicatio ns:Vitamin Deficiency Prevention Take 1 capsule by mouth tour manager before breakfast oxyCODONE (ROXICODONE) 5 mg immediate release tabletIndication s:Pain Take 1 tablet (5 mg total) by mouth every 6 (six) hours as needed for pain for up to 10 days 7 tablet 12/10/2022 3 apixaban (ELIQUIS) 5 mg tablet Take 1 tablet (5 mg total) by mouth 2 (two) times a day 60 tablet 3 07/06/2020 4 atorvastatin (LIPITOR) 80 mg tablet Take 1 tablet (80 mg total) by mouth daily 30 tablet 11 04/19/2022 3 carvediloL (COREG) 6.25 mg tablet TAKE 1 TABLET BY MOUTH TWICE DAILY WITH MEALS 180 tablet 3 03/11/2022 3 clopidogreL (PLAVIX) 75 mg tablet TAKE 1 TABLET BY MOUTH DAILY 90 tablet 3 07/29/2022 3 dapagliflozin (FARXIGA) 10 mg tablet Take 1 tablet (10 mg total) by mouth daily 14 tablet 06/21/2022 4 furosemide (LASIX) 80 mg tablet Take 1 tablet (80 mg total) by mouth daily 90 tablet 2 04/19/2022 3 niacin 500 mg tablet Take 1 tablet (500 mg total) by mouth 2 (two) times a day with meals 180 tablet 3 10/05/2019 3 nitroglycerin (NITROSTAT) 0.[address] [...] 6 (six) hours as needed for pain for up to 10 days 7 tablet 12/10/2022 12/20/2022 documented in this encounter Discharge Disposition Disposition Code Departure Means Destination Comment s Discharge to home or self care documented in this encounter H&P Notes * Roberto Medley MD - 12/10/2022 8:11 AM CST I have reviewed the H&P, examined the patient, and endorse the findings as written. Plan of Care : Based on the above findings, I consider Du Anderson to be an acceptable risk for : Procedure(s): EXAM UNDER ANESTHESIA - RECTUM ANAL FISTULOTOMY PLACEMENT SETON ITY TECHNICIAN [facility]ERGLASS Source Note - Roberto Medley MD - 11/23/2022 2:30 PM QUALITY TECHNICIAN F[facility]ERGLASS Colorectal Surgery Consultation Consult requested by Ayden Corona, * Chief Complaint: Du Anderson is a 66 y.o. male with chief complaint of anal fistula HPI: Du Anderson is a 66 y.o. male who developed a perianal abscess back in September. It was drained.It recurred. It drained spontaneously. Since that time, he is had intermittent drainage and bleeding. Of note, he has a drug-eluting stent that was placed back in March. He is on Plavix. He is okay to stop it for procedures. Review of Systems: All other systems negative except as per HPI and scanned media Physical exam: Constellation: No apparent distress. Head: Normocephalic, atraumatic Eyes: Anicteric, extraocular movements intact Ears, mouth and nose: Normal Neurologic: Non-focal motor function Pulmonary: Non-labored breathing, no audible wheezing Integumentary: No rashes Musculoskeletal: No gross bony deformities On external inspection, he has a right-sided external opening. We probed it and the probe seems to track very superficially towards the anal canal radially. Assessment and Plan: Mr. Du Anderson is a 66 y.o. male with an anal fistula that we should be able to treat with a fistulotomy but I warned him that he might need a seton. We discussed the surgery the risks including bleeding and incontinence. We will set him up for the surgery in the near future. Roberto Medley MD 11/23/2022 3:03 PM This note was created in part with the assistance of [employer] voice recognition software. Environmental Compliance Specialist variances and error may occur. Not every sentence has been reviewed in its entirety. For questions about the documentation above, please contact Dr. Medley. ITY TECHNICIAN FIBERGLASS documented in this encounter Miscellaneous Notes * Op Note - Roberto Medley MD - 12/10/2022 8:39 AM CST SURGICAL TEAM Surgeon(s) and Role: * Roberto Medley MD - Primary ANESTHESIA: Monitor Anesthesia Care PREOPERATIVE DIAGNOSIS (ES): Anal fistula POSTOPERATIVE DIAGNOSIS (ES): Anal fistula NAME OF OPERATION: Exam under anesthesia and seton placement INDICATIONS FOR PROCEDURE: The patient is a 66 y.o. male with an anal fistula. He is brought to the operating room for treatment. FINDINGS: The fistula tract to a posterior midline internal opening. There was significant amount of sphincter involvement in this tract. DESCRIPTION OF PROCEDURE: The patient was brought the operating room, placed under MAC anesthesia in the prone jose-knife position. The perineum was prepped and draped in normal sterile fashion and anesthetized with 40 mL of 0.25% Marcaine. A detailed digital rectal exam was performed which was remarkable for some puckering in the posterior anal canal. An anoscope was placed in the anal canal and it was evaluated. There was an obvious internal opening at the posterior midline. Probe was passed through the external opening and we were able to navigate the fistula tract to the internal opening. The intervening tissue was palpated over the probe and it was approximately half of the posterior sphincter muscles involved. The decision was made to place a seton and a loose vessel loop seton was placed through the fistula tract and secured to itself. Estimated Blood Loss: None IV Fluids: See Anesthesia records Sponge, Instrument and Needle counts: Correct times two Presence statement: I was present for the entire procedure from start to finish ITY TECHNICIAN FIBERGLASS * Brief Op Note - Sage Howard MD - 12/10/2022 8:39 AM CST Operative Progress Note Surgical Team: Surgeon(s) and Role: * Roberto Medley MD - Primary Anesthesiologist: Nehemiah Hansen MD CUPOLA MECHANIC: Lucas Kimble CRNA Histologic Technician: Adelia Justice RN Histologic Technician Relief: Natacha Cardoza CRNFA Scrub: Coreen Davis RN; Damaris Osman ST DATE OF SURGERY : 12/10/2022 Preoperative Diagnosis: Pre-op Diagnosis * Anal fistula [K60.3] Postoperative Diagnosis: Post-op Diagnosis * Anal fistula [K60.3] Procedure(s): Procedure(s) (LRB): EXAM UNDER ANESTHESIA - RECTUM (N/A) PLACEMENT SETON (N/A) Operative Findings: Exam under anesthesia, Right Anal Fistula tract noted to posterior midline opening. Seton placed. Estimated Blood Loss: 5 mL Intraoperative Fluids: 0 mls Specimens: No specimen collected in procedure Implants: Nothing was implanted during the procedure Blood/Blood Products Transfused: 0 mls Complications: None Condition on Discharge from the operating room was stable Sage Howard MD Date: 12/10/2022 Time: 9:10 AM TEACHING ATTESTATION : I was present and directly participated in the entire procedure (including opening and closing). Cosigned by Roberto Medley MD at 12/12/2022 4:03 PM QUALITY TECHNICIAN FIBERGLASS ITY TECHNICIAN F[employer]ERGLASS ITY TECHNICIAN [facility]ERGLASS * Pre-Procedure Instructions - Raquel Parikh NP - 11/26/2022 4:11 PM CST [facility] CP[facility] Location: [facility] The night before your surgery: * Do [...] valuables at home or with your family. * If you have an implantable device with a remote, bring the remote with you on the day of surgery. * If you use home oxygen, bring your portable oxygen tank with you on the day of surgery Outpatient Surgery: * You must have a [...] Instructions allopurinol (ZYLOPRIM) 300 mg tablet Take medication as prescribed atorvastatin (LIPITOR) 80 mg tablet Take morning of surgery carvediloL (COREG) 6.25 mg tablet Take morning of surgery cholecalciferol (VITAMIN D-3) 90416 unit capsule Don't take on day of surgery dapagliflozin (FARXIGA) 10 mg tablet Don't take on day of surgery furosemide (LASIX) 80 mg tablet Don't take on day of surgery multivitamin capsule Stop taking 1 week prior to surgery niacin 500 mg tablet Take morning of surgery potassium chloride ER 20 mEq CR tablet Don't take on day of surgery sacubitriL-valsartan (ENTRESTO) 24-26 mg tablet Take morning of surgery nitroglycerin (NITROSTAT) 0.4 mg SL tablet Take on day of surgery if needed Your surgeon will tell you IF YOU SHOULD STOP the following medications and WHEN TO STOP taking them. Do not stop taking them on your own without being told to do so: apixaban (ELIQUIS) 5 mg tablet clopidogreL (PLAVIX) 75 mg tablet General Instructions For Medications: For medications that you are instructed to [...] with COVID-19. You test positive for COVID-19. ITY TECHNICIAN [facility]ERGLASS * Perioperative Nursing Note - Clara Cruz, SURJIT - 11/26/2022 3:39 PM QUALITY TECHNICIAN [facility]ERGLASS [facility] Preoperative Assessment and Planning Perioperative Nursing Note Telephone Preoperative Evaluation ([facility]) - TELEPHONE ONLY, NO PHYSICAL EXAM Date: 11/26/22 Vitals: 11/26/22 1530 Weight: (!) 156.5 kg (345 lb) Height: 195.6 cm (6' 5 ) CHEST CIRCUMFERENCE: n/a Social History Tobacco Use Smoking Status Never Smokeless Tobacco Never Substance and Sexual [...] Outpatient Medications Marked as Taking for the 12/10/22 encounter (Hospital Encounter) Medication Sig Dispense Refill allopurinol (ZYLOPRIM) 300 mg tablet Take 300 mg by mouth nightly apixaban (ELIQUIS) 5 mg tablet Take 1 tablet (5 mg total) by mouth 2 (two) times a day (Patient taking differently: Take 5 mg by mouth 2 (two) times a day) 60 tablet 3 atorvastatin (LIPITOR) 80 mg tablet Take 1 tablet (80 mg total) by mouth daily (Patient taking differently: Take 80 mg by mouth tour manager before breakfast) 30 tablet 11 carvediloL (COREG) 6.25 mg tablet TAKE 1 TABLET BY MOUTH TWICE DAILY WITH MEALS (Patient taking differently: Take 6.25 mg by mouth 2 (two) times a day with meals) 180 tablet 3 cholecalciferol (VITAMIN D-3) 38749 unit capsule Take 10,000 Units by mouth tour manager before breakfast clopidogreL (PLAVIX) 75 mg tablet TAKE 1 TABLET BY MOUTH DAILY (Patient taking differently: Take 75mg by mouth tour manager before breakfast) 90 tablet 3 dapagliflozin (FARXIGA) 10 mg tablet Take 1 tablet (10 mg total) by mouth daily (Patient taking differently: Take 10 mg by mouth tour manager before breakfast) 14 tablet 0 furosemide (LASIX) 80 mg tablet Take 1 tablet (80 mg total) by mouth daily (Patient taking differently: Take 80 mg by mouth tour manager before breakfast) 90 tablet 2 multivitamin capsule Take 1 capsule by mouth tour manager before breakfast niacin 500 mg tablet Take 1 tablet (500 mg total) by mouth 2 (two) times a day with meals (Patient taking differently: Take 500 mg by mouth 2 (two) times a day with meals) 180 tablet 3 potassium chloride ER 20 mEq CR tablet Take 1 tablet (20 mEq total) by mouth 2 (two) times a day 180 tablet 3 sacubitriL-valsartan (ENTRESTO) 24-26 mg tablet Take 1 tablet by mouth 2 (two) times a day 180 tablet 3 Implants Stent [employer] Synergy Xd 4mm 48mm System Coronary Stent Everolimus [id number] - [id number] - [id number] - Implanted (Right) Coronary Artery Inventory item: [employer]ENT[employer] CHRIS SYNERGY XD 4MM 48MM SYSTEM CORONARY STENT EVEROLIMUS [id number] Model/Cat number: [id number] Serial number: [id number] Electronic Components Assembler: [employer] Lot number: [id number] As of 04/25/2022 Status: Implanted SKIN Piercings Remaining: No Wound (LDAs) Type of Wound (LDA): (open area to right buttox with gauze dressing) SCREENINGS Dawson index score: 95 NUTRITION PATIENT CARE PLANNING Advance Directives (For Healthcare) Have you reviewed your Advance Directive and is it valid for this stay?: No Advance Directive: Patient does not have advance directive Communication/Shot Examiner Needs Communication Needs: Glasses Assistive Devices/DME: Eyeglasses, CPAP/BiPAP Discharge Planning Type of Residence: Private residence Living Arrangements: Spouse/significant other Support Systems: Spouse/significant other Assistance Needed: spouse to provide DC ride post-op [employer] NO ADDITIONAL COMMENTS/ FOLLOW UP On Plavix & Eliquis s/p a-fib & cardiac stent 04/2022 ITY TECHNICIAN F[facility]ERGLASS * Pre-Procedure Instructions - Clara Cruz RN - 11/26/2022 3:38 PM QUALITY TECHNICIAN [facility]ERGL[facility] (CPAP) [...] remove nail coverings, artificial nails and nail lebanese prior to the day of surgery. You should leave your valuables and any jewelry at home. No metal or piercings are allowed in the operating room. You should bring your insurance card, a photo ID (example: Co Founder And Ceo's License) and a method of payment for any insurance copay, deductible or copay for discharge medications. You should bring a complete, up-to-date list of all your medications on the day of surgery, including any over the counter medications or supplements you may take. You should bring your Advanced Directive and/or Living Will with you on the day of surgery if you have not verified a copy is already in your Epic Chart. If you are having surgery at [facility], please arrive on the day of surgery [...] to [facility] by the followinglink: [email or web address] How To Prepare Your Skin For Surgery [...] Remove nail coverings, artificial nails and nail lebanese. Place clean linens on your bed the night before surgery. Shaving: You may shave your face, legs and underarms during your evening shower. Avoid shaving on the day of surgery. Travel/Exp osure Screening: Travel Screening Have you traveled outside the .[place] in the last 6 months?: No Exposure Screening Have you been exposed to anyone who is sick in the last 30 days?: No Have you been exposed to or tested positive for COVID-19 within the last 10 days?: No Have you tested positive for monkeypox within the last 28 days or are you waiting for a monkeypox test result?: No Infectious Disease Screening Are you having [...] questions, please call the CPAP Staff at [phone], Saturday-Saturday 8am-4:30pm. All patients should read the below section: All visitors/patients are being asked to wear a clean face mask when entering the hospital. COVID 19 Updates & Visitor Policy: Please access [email or web address] for the most updated information. Information on [facility]: Please view [email or web address] (Patient & Visitor Information) for additional details regarding Advanced Directive forms, AWARE, directions, parking information, lodging, Internet access, dining and more. Information on [facility] or [facility] ([facility]): Please view [email or web address] (Patient and Visitor Information) for parking/directions and more. For MyChart information, to activate account or password recovery, please go to [email or web address] or call [phone] (toll-free: [phone]). Information for Suicide Prevention: National Suicide Prevention Lifeline ([phone] Surgery Times: For patients having surgery @ [facility], [facility], [facility] or [facility] ([facility]), if your surgeon's office has not notified you of your surgery time by NOON THE BUSINESS DAY BEFORE your surgery, please call [phone] and ask for your surgeon's office ITY TECHNICIAN FIBERGLASS documented in this encounter Plan of Treatment Not on file documented as of this encounter Procedures Procedure Name Priority Date/Time Associated Diagnosis Comments PLACEMENT SETON 12/10/2022 8:31 AM QUALITY TECHNICIAN FIBERGLASS Anal fistula EXAM UNDER ANESTHESIA - RECTUM 12/10/2022 8:31 AM QUALITY TECHNICIAN FIBERGLASS Anal fistula documented in this encounter Visit Diagnoses Diagnosis Anal fistula- Primary documented in this encounter Admitting Diagnoses Diagnosis Anal fistula documented in this encounter Administered Medications Inactive Administered Medications - up to 3 most recent administrations Medication Order MAR Action Action Date Dose Rate Site acetaminophen (TYLENOL) tablet 500 mg 500 mg, oral, Every 6 hours PRN, headaches, other, Breakthrough Pain and Supplement to other pain meds, Starting on Sat12/10/22 at 0854, For 2 doses, Phase I, When able to tolerate PO after consulting with Anesthesiologist. Do not administer if patient has already received Acetaminophen-containing medications in PACU., Indications: PainIndications:Pain Given 12/10/2022 9:19 AM QUALITY TECHNICIAN FIBERGLASS 500 mg famotidine (PEPCID) injection 20 mg 20 mg, intravenous, Administer over 2 Minutes, Once, On Sat12/10/22 at 0745, For 1 dose, Pre-Op Given 12/10/2022 7:41 AM QUALITY TECHNICIAN FIBERGLASS 20 mg Lactated Ringer's (LR) infusion 30 mL/hr, intravenous, Continuous, Starting on Sat12/10/22 at 0745, For 4 hours, Pre-Op, Use a 500 ml bag for End Stage Renal Disease Patients. Discontinue if fluid still running once patient arrives to floor. Rate/Dose Change 12/10/2022 8:43 AM QUALITY TECHNICIAN FIBERGLASS 30 mL/hr Rate/Dose Verify 12/10/2022 8:30 AM QUALITY TECHNICIAN FIBERGLASS 30 mL/h r New Bag 12/10/2022 7:41 AM QUALITY TECHNICIAN FIBERGLASS 30 mL/hr 30 mL/hr ondansetron (ZOFRAN) injection 4 mg 4 mg, intravenous, Administer over 2 Minutes, Once, On Sat12/10/22 at 0745, For 1 dose, Pre-Op Given 12/10/2022 7 :41 AM QUALITY TECHNICIAN FIBERGLASS 4 mg documented in this encounter Historical Medications * This list may reflect changes made after this encounter. cholecalciferol (VITAMIN D-3) 50520 unit capsuleIndicatio ns:supplement Take 1 capsule (10,000 Units total) by mouth tour manager before breakfast multivitamin capsuleIndicatio ns:Vitamin Deficiency Prevention Take 1 capsule by mouth tour manager before breakfast added in this encounter Active and Recently Administered Medications Times are shown in QUALITY TECHNICIAN FIBERGLASS. Scheduled Medication Order 12/08/2022 12/09/2022 12/10/2022 famotidine (PEPCID) injection 20 mg (COMPLETED) 20 mg, intravenous, Administer over 2 Minutes, Once, On Sat12/10/22 at 0745, For 1 dose, Pre-Op 07 (Given - Provid er: Dulce Caruso RN) ondansetron (ZOFRAN) injection 4 mg (COMPLETED) 4 mg, intravenous, Administer over 2 Minutes, Once, On Sat12/10/22 at 0745, For 1 dose, Pre-Op 0741 (Given - Provid er: Dulce Caruso RN) Continuous Medication Order 12/08/2022 12/09/2022 12/10/2022 Lactated Ringer's (LR) infusion (CANCELED) 30 mL/hr, intravenous, Continuous, Starting on Sat12/10/22 at 0745, For 4 hours, Pre-Op, Use a 500 ml bag for End Stage Renal Disease Patients. Discontinue if fluid still running once patient arrives to floor. 0741 (New Bag - Prov ider: Dulce Caruso RN)0830 (Rate/Dose Verify - Provider: Lucas Kimble CRNA)0843 (Rate/Dose Change - Provider: Lucas Kimble CRNA) PRN Medication Order 12/08/2022 12/09/2022 12/10/2022 acetaminophen (TYLENOL) tablet 500 mg 500 mg, oral, Every 6 hours PRN, headaches, other, Breakthrough Pain and Supplement to other pain meds, Starting on Sat12/10/22 at 0854, For 2 doses, Phase I, When able to tolerate PO after consulting with Anesthesiologist. Do not administer if patient has already received Acetaminophen-containing medications in PACU., Indications: Pain 0919 (Given - Provid er: Cece Cabral RN) bacitracin-polymyxin B (POLYSPORIN) 500-10,000 unit/gram ointment tube (CANCELED) As needed, Starting on Sat12/10/22 at 0850, Intra-Op 0850 (Given - Provid er: Roberto Medley MD) bupivacaine-EPINEPHrine (MARCAINE with EPI) 0.25 %-1:200,000 preservative free injection (CANCELED) As needed, Starting on Sat12/10/22 at 0850, Intra-Op 0850 (Given - Provid er: Roberto Medley MD) diphenhydrAMINE (BENADRYL) injection 12.5 mg 12.5 mg, intravenous, Administer over 1 Minutes, Every 5 min PRN, itching, other, For Nausea, administer 25 mg IV., Starting on Sat12/10/22 at 0854, For 4 doses, Phase I, Max cumulative dose 50 mg., Indications: Itching fentaNYL (SUBLIMAZE) preservative free injection 25 mcg 25 mcg, intravenous, Every 5 min PRN, 2nd line for pain, Use Fentanyl as 1st line medication for extremely severe pain for outpatients, and follow with oral pain medication., Starting on Sat12/10/22 at 0854, For 4 doses, Phase I, Use as 1st line for outpatients, dose not to exceed 100 mics. If pain still extremely severe after 100 mics of Fentanyl, may proceed to Dilaudid after consulting with Anesthesiologist. If patient able to tolerate PO meds and pain improved after Fentanyl, proceed to Oral pain medication., Indications: Pain hydrALAZINE (APRESOLINE) injection 5 mg 5 mg, intravenous, Administer over 2 Minutes, Every 5 min PRN, high blood pressure, Starting on Sat12/10/22 at 0854, Phase I, Max cumulative dose 20 mg. Dose if systolic BP greater than 180 AND heart rate less than 70., Indications: hypertension HYDROcodone-acetaminophen (NORCO) 5-325 mg per tablet 1 tablet 1 tablet, oral, Every 20 min PRN, 3rd line for pain, breakthrough pain, May use as 1st line pain medication if pain not extremely severe and patient able to tolerate PO meds. If unable to tolerate PO meds or outpatient complaining of extremely severe pain, start with Fentanyl and follow with Oral meds., Starting on Sat12/10/22 at 0854, For 2 doses, Phase I, May administer TWO pills together if pain moderate to severe and patient able to tolerate PO meds, after consulting with Anesthesiologist., Indications: Pain HYDROmorphone (DILAUDID) injection 0.2 mg 0.2 mg, intravenous, Administer over 2 Minutes, Every 5 min PRN, 1st line for pain, Use as 1st line pain med for inpatients or for patients with extremely severe pain., Starting on Sat12/10/22 at 0854, Phase I, Use as first line pain medication for inpatients. May use as first line medication for outpatients with extremely severe pain, history of opioid tolerance, or history of Chronic Pain with opioid tolerance, after consulting with Anesthesiologist. Inform anesthesiologist when dose reaches 2 mg for inpatients or 1 mg for outpatients., Indications: Chronic Pain with Opioid Tolerance, Pain, Severe Pain with Opioid Tolerance labetaloL (NORMODYNE,TRANDATE) injection 5 mg 5 mg, intravenous, Every 5 min PRN, high blood pressure, Starting on Sat12/10/22 at 0854, For 4 doses, Phase I, Max cumulative dose 20 mg. Dose if systolic blood pressure greater than 180 AND HR greater than 70. meperidine (DEMEROL) preservative free injection 12.5 mg 12.5 mg, intravenous, Administer over 5 Minutes, Every 10 min PRN, shivering, Starting on Sat12/10/22 at 0854, For 2 doses, Phase I, Max cumulative dose 25 mg., Indications: Shivering naloxone (NARCAN) 0.4 mg/mL injection 0.04-0.4 mg 0.04-0.4 mg, intravenous, Once as needed, other, excessive sedation/respiratory depression, Starting on Sat12/10/22 at 0854, For 1 dose, Phase I, Dilute 0.4 mg with 9 mL NS (final concentration 0.04 mg/mL). For respiratory depression (respiratory rate less than 6), administer 0.4 mg IVP over 30 seconds. For excessive sedation administer 0.04 mg (1 mL) every 1 minute until desired level of alertness. Consult with Anesthesiologist before administration. Administer 40 mics at a time. For IV, administer over 30 seconds., Indications: Opioid Toxicity ondansetron (ZOFRAN) injection 4 mg 4 mg, intravenous, Administer over 2 Minutes, Once as needed, nausea, vomiting, Starting on Sat12/10/22 at 0854, For 1 dose, Phase I, Proceed to prochlorperazine if ondansetron has been given within the last 6 hours. prochlorperazine (COMPAZINE) injection 5 mg 5 mg, intravenous, Administer over 2 Minutes, Once as needed, nausea, vomiting, Starting on Sat12/10/22 at 0854, For 2 doses, Phase I, If nausea/vomiting not relieved by ondansetron within 30 minutes or if ondansetron has been given within the last 6 hours. May repeat in 15 minutes of nausea not relieved. sodium chloride 0.9% irrigation (CANCELED) As needed, Starting on Sat12/10/22 at 0850, Intra-Op 0850 (Given - Provid er: Roberto Medley MD) documented in this encounter Orders Medications Ordered That Laith ht Not Have Been Administered Count Last Ordered Date First Ordered Date bacitracin-polymyxin B (POLY SPORIN) 500-10,000 unit/gram ointment tube 1 12/10/2022 bupivacaine-EPINEPHrine (MAR SHANNA with EPI) 0.25 %-1:200,000 preservative free injection 1 12/10/2022 diphenhydrAMINE (BENADRYL) i njection 12.5 mg 1 12/10/2022 famotidine (PEPCID) injection 20 mg 1 12/10 fentaNYL (SUBLIMAZE) preserv ative free injection 25 mcg 1 12/10/2022 hydrALAZINE (APRESOLINE) injection 5 mg 1 0 12/10/2022 HYDROcodone-acetaminophen (N ORCO) 5-325 mg per tablet 1 tablet 1 12/10/2022 HYDROmorphone (DILAUDID) injection 0.2 mg 1 12/10/2022 labetaloL (NORMODYNE,TRANDAT E) injection 5 mg 1 12/10/2022 Lactated Ringer's (LR) infusion 1 3 lidocaine PF (XYLOCAINE) 10 mg/mL (1 %) preservative free injection 2-10 mg 1 12/10/2022 meperidine (DEMEROL) preserv ative free injection 12.5 mg 1 12/10/2022 naloxone (NARCAN) 0.4 mg/mL injection 0.04-0.4 mg 1 12/10/2022 ondansetron (ZOFRAN) injection 4 mg 1 12/10 prochlorperazine (COMPAZINE) injection 5 mg 1 12/10/2022 scopolamine patch 72 hour 1 patch 1 023 sodium chloride 0.9% flush 0.5-20 mL 1 03/2023 sodium chloride 0.9% irrigation 1 3 Diet Count Last Ordered Date First Orde red Date ADULT DISCHARGE DIET 1 12/10/2022 Nursing Count Last Ordered Date First Orde red Date DISCHARGE ACTIVITY 4 12/10/2022 DISCHARGE CALL PROVIDER 6 12/10/2022 DISCHARGE DRESSING 4 12/10/2022 OTHER FOLLOW UP 1 12/10/2022 Discharge Count Last Ordered Date First Orde red Date DISCHARGE PATIENT 1 12/10/2022 documented in this encounter Care Teams Equipment Maintenance Superintendent Relationship Specialty Start Date End Date Gianluca Price MD PCP - General 06/18/17 Ayden Corona DO [address] [place] [address] Referring Physician Surgery 10/29/22 Roberto Medley MD [phone] [place] [address] Surgeon Colon and Rectal Surgery 11/23/22 documented as of this encounter
--- OUTSIDE RECORDS SUMMARY | 2024-10-05 02:51 | XMS_ITS | Encounter Summary ---
Author Organization [facility] Address [address] [place] [address] Phone Care Team Providers Care Engraved Roller Inspector Name Role Phone Gianluca Price MD Primary Care Provider Ayden Corona DO Unavailable [phone] Reason for Visit * Reason Onset Date Comments Medical Records Request 11/16/2022 Medical Records Encounter Details Date Type Department Care Team (Late st Contact Info) Description 11/16/2022 Telephone [facility] Department of Surgery, Section of Colon and Rectal Surgery [address], [place] [address] Margie Hotl BS Medical Records Request (Medical Records) Social History Tobacco Use Types Packs/Day Years [...] on file Legal Sex Male 3:11 AM COLLECTIONS CURATOR Gender Identity Not on file Sexual Orientation Not on file Occupation Industry Job Start Date Job End Date Retired Not on file Not on file Not on file documented as of this encounter Miscellaneous Notes * Telephone Encounter - Margie Holt - 11/16/2022 11:11 AM COLLECTIONS CURATOR Referral in media fro Dr. Conrad Referring Surg clinic notes in media 09/17/22 I&D was in office and noted in the office note ECTIONS CURATOR documented in this encounter Plan of Treatment Not on file documented as of this encounter Visit Diagnoses Not on filedocumented in this encounter Care Teams Engraved Roller Inspector Relationship Specialty Start Date End Date Gianluca Price MD PCP - General 06/18/17 Ayden Corona DO [address] [address] Referring Physician Surgery 10/29/22 documented as of this encounter
--- OUTSIDE RECORDS SUMMARY | 2024-10-05 02:51 | XMS_ITS | Encounter Summary ---
Author Organization [facility] Address [address] [place] [address] Phone Care Team Providers Care Database Security Administrator Name Role Phone Gianluca Price MD Primary Care Provider Ayden Corona DO Unavailable [phone] Roberto Medley MD Unavailable [phone] Reason for Visit * Reason Onset Date Comments medical concern 03/07/2023 Encounter Details Date Type Department Care Team (Late st Contact Info) Description 03/07/2023 Telephone [facility] Department of Surgery, Section of Colon and Rectal Surgery [address] [facility], [place] [address] Manda Blanca medical concern Social History Tobacco Use Types Packs/Day Years Used Date Smoking Tobacco: Never Smokeless Tobacco: Never Alcohol Use Standard Drinks/Week Comments Yes 0 (1 standard drink = 0.6 oz pur e alcohol) Occasionally AUDIT-C Answer Date Recorded Q1: How often do you have a drink containing alc ohol? 2-4 times a month 02/21/2023 Q2: How many drinks containi ng alcohol do you have on a typical day when you are drinking? 3 or 4 02/21/2023 Q3: How often do you have si x or more drinks on one occasion? Never 02/21/2023 PHQ-2 Answer Date Recorded PHQ-2 Total Score (If total score is 3 or more points, staff should administer the PHQ-9) 2 06/07/2020 Sex and Gender Information Value Date Recorded Sex Assigned at Not on file Legal Sex Male 3:11 AM QLIKVIEW DEVELOPER Gender Identity Not on file Sexual Orientation Not on file Occupation Industry Job Start Date Job End Date Retired Not on file Not on file Not on file documented as of this encounter Miscellaneous Notes * Telephone Encounter - Manda Blanca - 03/07/2023 11:59 AM CDT Pt had medical concerns transferred call to KRISTINA Ryder documented in this encounter Plan of Treatment Not on file documented as of this encounter Visit Diagnoses Not on filedocumented in this encounter Care Teams Database Security Administrator Relationship Specialty Start Date End Date Gianluca Price MD PCP - General 06/18/17 Ayden Corona DO [address] [address] Referring Physician Surgery 10/29/22 Roberto Medley MD [phone] [place] [address] Surgeon Colon and Rectal Surgery 11/23/22 documented as of this encounter
--- OUTSIDE RECORDS SUMMARY | 2024-10-05 02:51 | XMS_ITS | Encounter Summary ---
Author Organization [facility] Address [address] [place] [address] Phone Care Team Providers Care Assistant Wrestling Coach Name Role Phone Gianluca Price MD Primary Care Provider Reason for Visit * Cardiology (Routine) - Closed Specialty Diagnoses / Procedures Referred By Contac t Referred To Contact Diagnoses Coronary artery disease involving telida coronary artery of telida heart without angina pectoris Procedures Transthoracic Echo (TTE) Complete W Doppler/CF Abigail Woodard MD [address] [facility] [address] [place] [address] Phone: tel: fax: [facility] (All Locations) Referral ID Status Reason Start Date Expiration Date Visits Re quested Visits Authorized [id number] Closed 06/21/2022 07/21/2023 1 1 Encounter Details Date Type Department Care Team (Latest Contact Info) Description 07/20/2022 11:00 AM CDT Ancillary Procedure [facility] Cardiology [address] [facility] [address] [place] [address] Coronary artery disease involving telida coronary artery of telida heart without angina pectoris Social History Tobacco Use Types Packs/Day Years [...] on file 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 Gender Identity Not on file Sexual Orientation Not on file Occupation Industry Job Start Date Job End Date Retired Not on file Not on file Not on file documented as of this encounter Plan of Treatment Not on file documented as of this encounter Procedures Procedure Name Priority Date/Time Associated Diagnosis Comments TRANSTHORACIC ECHO (TTE) COMPLETE W DOPPLER/CF W CONTRAST Routine 07/20/2022 11:44 AM CDT Coronary artery disease involving telida coronary artery of telida heart without angina pectoris documented in this encounter Results * TRANSTHORACIC ECHO (TTE) COMPLETE W DOPPLER/CF W CONTRAST (07/20/2022 11:44 AM CDT) LV EF 45 % CARDIOREPORT Anatomical Region Laterality Modality Ultrasound 07/20/2022 11:0 0 AM CDT Narrative 07/20/2022 7:32 PM CDT Patient name: Du Anderson Date of test: 07/20/2022 Type of test: TTE w/Doppler Hospital #: [id number] Date of : 1955 (M) Head Sawyer Automatic: LUDIVINA Morrissey ??RDCS Referring Physician: ABIGAIL WOODARD MD Contrast Agent: 1.1 ml Optison Administered, (1.9 ml wasted). Contrast Administered by: Sydney Nunez RN Supervised/Interpreted by: Abigail Woodard MD Diagnosis: Location: [facility] Reason for test: CAD MV Structure: [...] Variable ?2D Linear Normal ? Aotic Root: 3.2 cm ?<4.0 ? Ao Indexed: 1.2 cm/M2 <2.0 ? LA: ? 5.4 cm ?<4.0 ? RV: ? 5.6 cm ?<4.2 ? LV(ED): ? 5.3 cm ?<5.9 ? LV(ES): ? 4.0 cm ?<4.0 ?2D Vol. ?? Normal ?Indexed ?? Indexed Normal RA: ? 107.0 ml ?38.6 ml/M2 ?11-39 ? LA: ? 143.0 ml ?51.6 ml/M2 ?16-34 ? RV: ? <12.7 ? LV(ED): ? 121.0 ml ??62-150 ?43.7 ml/M2 ?<75 ? LV(ES): ? 66.0 ml ?? 21-61 ? 23.8 ml/M2 ?<32 ?3D Vol. ? Indexed Normal LV(ED): ?<75 ? LV(ES): ?<32 ? LV EF: 45 % ?? (Normal: >=52%) ?? LV Septum: 1.0 cm ?(Normal: <1.0 cm) Wall Motion Scoring (1=Normal 2=Hypo 3=Akinetic 4=Dyskin./Aneurysm 0=Not visualized) Parasternal Long Powell:MAS=2 BAS=2 MIL=2 ALICJA=2 Parasternal Short Powell:MAS=2 MIS=2 ME=2 MIL=2 MAL=2 MA=2 Apical 4 Chambers:=2 MIS=2 BIS=2 BAL=2 MAL=2 AL=2 AC=2 Apical 2 Chambers:AI=2 ME=2 BI=2 BA=2 MA=2 AA=2 AC=2 LV Global [...] Vol.: ??ml/beat Regurg. Frac.: ??% PA Pressure: 34+RA mmHg DOPPLER/COLOR FOLOW DOPPLER COMMENTS: No AR seen, Mild MR, no , no MS, mild TV regurgitation, normal PV. Diastolic function: indeterminate CONTRAST: 1.1 ml Optison Administered, (1.9 ml wasted). SUMMARY: LA is markedly dilated. Normal RV cavity size. LV cavity size is normal. Normal LV wall thickness/mass. Mild LV global hypokinesis. ??Normal Inferior vena cava. Normal aorta. ??No AR seen, Mild MR, no , no MS, mild TV regurgitation, normal PV.Diastolic function: indeterminate.LVEF 45%. Confirmed on ??07/20/2022 - 19:32:51 by Abigail Woodard MD By signing this report, the attending goggles assembler certifies that he or she has personally supervised and interpreted the echocardiogram and has reviewed and or edited and agrees with the written comments contained within the report. Procedure Abigail Vallejo MD - 07/20/2022 Patient name: Du Anderson Date of test: 07/20/2022 Type of test: TTE w/Doppler [facility] #: [id number] Date of : 1955 (M) Head Sawyer Automatic: LUDIVINA Morrissey [facility] Referring Physician: ABIGAIL WOODARD MD Contrast Agent: 1.1 ml Optison Administered, (1.9 ml wasted). Contrast Administered by: Sydney Nunez RN Supervised/Interpreted by: Abigail Woodard MD Diagnosis: Location: [facility] Reason for test: CAD MV Structure: Normal, MV Motion: Normal, Mitral Annulus: Normal AV Structure: tricuspid and is Normal, AV Motion: Normal Aotic root: Normal, TM: Normal, PV: Normal Valvular Vegetations: none seen, Mass/Thrombi: none seen RA: Normal Measurements: M-Mode Normal Aotic Root: <3.8 LA: <4.0 RV: <2.8 LV(ED): <5.7 LV(ES): Variable 2D Linear Normal Aotic Root: 3.2 cm <4.0 Ao Indexed: 1.2 cm/M2 <2.0 LA: 5.4 cm <4.0 RV: 5.6 cm <4.2 LV(ED): 5.3 cm <5.9 LV(ES): 4.0 cm <4.0 2D Vol. Normal Indexed Indexed Normal RA: 107.0 ml 38.6 ml/M2 11-39 LA: 143.0 ml 51.6 ml/M2 16-34 RV: <12.7 LV(ED): 121.0 ml 62-150 43.7 ml/M2 <75 LV(ES): 66.0 ml 21-61 23.8 ml/M2 <32 3D Vol. Indexed Normal LV(ED): <75 LV(ES): <32 LV EF: 45 % (Normal: >=52%) LV Septum: 1.0 cm (Normal: <1.0 cm) Wall Motion Scoring (1=Normal 2=Hypo 3=Akinetic 4=Dyskin./Aneurysm 0=Not visualized) Parasternal Long [place]:MAS=2 BAS=2 MIL=2 ALICJA=2 Parasternal Short Powell:MAS=2 MIS=2 ME=2 MIL=2 MAL=2 MA=2 Apical 4 Chambers:=2 MIS=2 BIS=2 BAL=2 MAL=2 AL=2 AC=2 Apical 2 Chambers:AI=2 ME=2 BI=2 BA=2 MA=2 AA=2 AC=2 LV Global [...] Vol.: ml/beat Regurg. Frac.: % PA Pressure: 34+RA mmHg DOPPLER/COLOR FOLOW DOPPLER COMMENTS: No AR seen, Mild MR, no , no MS, mild TV regurgitation, normal PV. Diastolic function: indeterminate CONTRAST: 1.1 ml Optison Administered, (1.9 ml wasted). SUMMARY: LA is markedly dilated. Normal RV cavity size. LV cavity size is normal. Normal LV wall thickness/mass. Mild LV global hypokinesis. Normal Inferior vena cava. Normal aorta. No AR seen, Mild MR, no , no MS, mild TV regurgitation, normal PV.Diastolic function: indeterminate.LVEF 45%. Confirmed on 07/20/2022 - 19:32:51 by Abigail Woodard MD By signing this report, the attending goggles assembler certifies that he or she has personally supervised and interpreted the echocardiogram and has reviewed and or edited and agrees with the written comments contained within the report. Abigail Woodard MD CV ECHO PROCEDURES Final Resul t documented in this encounter Visit Diagnoses Diagnosis Coronary artery disease involving telida coronary artery of telida heart without angina pectoris documented in this encounter Administered Medications Inactive Administered Medications - up to 3 most recent administrations Medication Order MAR Action Action Date Dose Rate Site perflutren protein-a (OPTISON) 3 mL in sodium chloride 0.9% 8 mL syringe 1-8 mL, intravenous, Once in imaging, contrast, Starting on Sat07/20/22 at 1104, For 1 dose, Intra-Procedure (CV) Contrast Given 07/20/2022 11:30 AM CDT 3 mL documented in this encounter Orders Medications Ordered That Laith ht Not Have Been Administered Count Last Ordered Date First Ordered Date perflutren protein-a (OPTISO N) 3 mL in sodium chloride 0.9% 8 mL syringe 1 07/20/2022 documented in this encounter Care Teams Assistant Wrestling Coach Relationship Specialty Start Date End Date Gianluca Price MD PCP - General 06/18/17 documented as of this encounter
--- OUTSIDE RECORDS SUMMARY | 2024-10-05 02:51 | XMS_ITS | Encounter Summary ---
Author Organization [facility] Address [address] [place] [address] Phone Care Team Providers Care Brokerage Coordinator Name Role Phone Gianluca Price MD Primary Care Provider Reason for Visit * Reason Onset Date Comments Appointment 04/25/2022 cath follow up Encounter Details Date Type Department Care Team (Late st Contact Info) Description 04/25/2022 Telephone [facility] [address] [facility] [address] [place] [address] Ari Bradley MD [address] [facility] [address] [place] [address] Appointment (cath follow up) Social History Tobacco Use Types Packs/Day Years [...] on file 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 Bradley, telephone orders given for pt to get set up for an OV in 2 weeks to see him for a cath follow up as he had a PCI placed at [facility] today. Message sent to Giovanna to help reschedule his Nov. OV. documented in this encounter Plan of Treatment Not on file documented as of this encounter Visit Diagnoses Not on filedocumented in this encounter Care Teams Brokerage Coordinator Relationship Specialty Start Date End Date Gianluca Price MD PCP - General 06/18/17 documented as of this encounter
--- OUTSIDE RECORDS SUMMARY | 2024-10-05 02:51 | XMS_ITS | Encounter Summary ---
Author Organization [facility] Address [address] [place] [address] Phone Care Team Providers Care Speed Belt Sander Tender Name Role Phone Gianluca Price MD Primary Care Provider Ayden Corona DO Unavailable [phone] Roberto Brooks MD Unavailable [phone] Reason for Visit * Reason Onset Date Comments CPAP Follow Up 04/18/2023 Encounter Details Date Type Department Care Team (Late st Contact Info) Description 04/18/[address] [facility] Department of Surgery, Section of Colon and Rectal Surgery [address] [facility] [address], [place] [address] Wilda Galarza, A CPAP Follow Up Social History Tobacco Use Types Packs/Day Years Used Date Smoking Tobacco: Never Passive Smoke Exposure: Never Smokeless Tobacco: Never Alcohol Use Standard Drinks/Week Comments Yes 0 (1 standard drink = 0.6 oz pur e alcohol) Occasionally AUDIT-C Answer Date Recorded Q1: How often do you have a drink containing alc ohol? 2-4 times a month 04/10/2023 Q2: How many drinks containi ng alcohol do you have on a typical day when you are drinking? 3 or 4 04/10/2023 Q3: How often do you have si x or more drinks on one occasion? 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 He verbalizedunderstanding and agreement with recommendations. * Telephone Encounter - Wilda Galarza RMA - 04/18/2023 10:47 AM CDT ----- Message from Toya He NP sent at 04/12/2023 12:21 PM CDT ----- Regarding: CPAP Message-- BROOKS The patient is on oral anticoagulation therapy [...] Please call the CPAP chart room clinician [phone]) with any questions or to discuss alternative management plans. Per Cards, Dr Bradley's OV note 01/23/2023-- He is on Plavix. I have stopped ASA as he is also on Eliquis. He is other vinson recommended to start walking . [He] will start the aspirin back after April 11, 2023 when [he] will stop the Plavix. ##Please FU with pt regarding above issue(s)-- Please instruct pt on final recs for aspirin, Plavix, and Eliquis. >NOTE: There is no need to reply to this message but if you would like to send a non-urgent reply, please address it to the [facility] staff message POOL address [facility] CPAP PULP BLEACHER (number [phone]). Please note that messages to this address will be replied to within approximately 1 business day. If you have an urgent reply, please call the CPAP at [phone]. documented in this encounter Plan of Treatment Not on file documented as of this encounter Visit Diagnoses Not on filedocumented in this encounter Care Teams Speed Belt Sander Tender Relationship Specialty Start Date End Date Gianluca Price MD PCP - General 06/18/17 Ayden Corona DO [address] [address] Referring Physician Surgery 10/29/22 Roberto Brooks MD [id number] [place] [address] Surgeon Colon and Rectal Surgery 11/23/22 documented as of this encounter
--- OUTSIDE RECORDS SUMMARY | 2024-10-05 02:51 | XMS_ITS | Encounter Summary ---
Author Organization [facility] Address [address] [place] [address] Phone Care Team Providers Care Travel Ot Name Role Phone Gianluca Price MD Primary Care Provider Ayden Corona DO Unavailable [phone] Roberto Medley MD Unavailable [phone] Reason for Visit * Reason Onset Date Comments reschedule procedure 04/10/2023 Encounter Details Date Type Department Care Team (Late st Contact Info) Description 04/10/2023 Telephone [facility] Department of Surgery, Section of Colon and Rectal Surgery [address] [facility] [address], [place] [address] Wilda Galarza, A reschedule procedure Social History Tobacco Use Types Packs/Day Years [...] on file 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 Patient verbalized understanding and agreement with new date and time. documented in this encounter Plan of Treatment Not on file documented as of this encounter Visit Diagnoses Not on filedocumented in this encounter Care Teams Travel Ot Relationship Specialty Start Date End Date Gianluca Price MD PCP - General 06/18/17 Ayden Corona DO [address] [address] Referring Physician Surgery 10/29/22 Robetro Medley MD [phone] [place] [address] Surgeon Colon and Rectal Surgery 11/23/22 documented as of this encounter
--- OUTSIDE RECORDS SUMMARY | 2024-10-05 02:51 | XMS_ITS | Encounter Summary ---
Author Organization [facility] Address [address] [place] [address] Phone Care Team Providers Care Character Impersonator Name Role Phone Gianluca Price MD Primary Care Provider Ayden Corona DO Unavailable [phone] Roberto Medley MD Unavailable Reason for Visit * Reason Onset Date Comments Surgery Confirmation 04/25/2023 Encounter Details Date Type Department Care Team (Late st Contact Info) Description 04/25/2023 Telephone [facility] Department of Surgery, Section of Colon and Rectal Surgery [address] [facility] [address]th [address], [place] [address] Radha Hernandez RMA Surgery Confirmation Social History Tobacco Use Types [...] on file 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 Medley's MA to confirm surgery. documented in this encounter Plan of Treatment Not on file documented as of this encounter Visit Diagnoses Not on filedocumented in this encounter Care Teams Character Impersonator Relationship Specialty Start Date End Date Gianluca Price MD PCP - General 06/18/17 Ayden Corona DO [address] [facility] [address] [place] [address] Referring Physician Surgery 10/29/22 Roberto Medley MD [phone] [place] [address] Surgeon Colon and Rectal Surgery 11/23/22 documented as of this encounter
--- OUTSIDE RECORDS SUMMARY | 2024-10-05 02:51 | XMS_ITS | Encounter Summary ---
Author Organization [facility] Address [address] [place] [address] Phone Care Team Providers Care Supervisor Laboratory Animal Facility Name Role Phone Gianluca Price MD Primary Care Provider Ayden Corona DO Unavailable [phone] Roberto Medley MD Unavailable [phone] Reason for Visit * Reason Comments Post-op Visit Anal fistula with se ton in place * Consultation (Routine) - Closed Specialty Diagnoses / Procedures Referred By Antonietta livingston Referred To Contact Surgery / Colon and Rectal Surgery Diagnoses Anal fistula Ayden Corona DO [address] [facility] [address] [place] [address] Phone: tel: fax: Roberto Medley MD [address] [facility] [phone] [place] [address] Phone: tel: fax: Referral ID Status Reason Start Date Expiration Date V isits Requested Visits Authorized [id number] Closed Specialty Services Required 10/29/2022 11/28/2023 99 99 Encounter Details Date Type Department Care Team (Late st Contact Info) Description 01/11/2023 3:00 PM CDT Office Visit [facility] [address] [facility] [address] [place] [address] Roberto Medley MD [phone] [place] [address] Anal fistula (Primary Dx) Social History Tobacco [...] on file 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 Gender Identity Not on file Sexual Orientation Not on file Occupation Industry Job Start Date Job End Date Retired Not on file Not on file Not on file documented as of this encounter Last Filed Vital Signs Vital Sign Reading Time Taken Comments Blood Pressure 145/79 01/11/2023 3:58 PM CDT Pulse 126 01/11/2023 3:58 PM CDT Temperature 36.9 ??C (98.4 ??F) 01/11/2023 3:58 PM CD T Respiratory Rate - - Oxygen Saturation 97% 01/11/2023 3:58 PM CDT Inhaled Oxygen Concentration - - Weight 157.4 kg (347 lb) 01/11/2023 3:58 PM CDT Height 195.6 cm (6' 5 ) 01/11/2023 3:58 PM CDT Body Mass Index 41.15 01/11/2023 3:58 PM CDT documented in this encounter Progress Notes * Roberto Medley MD - 01/11/2023 3:00 PM CDT Established Patient Follow-up Visit Interval History: The patient is a 67 y.o. male with an anal fistula. We placed a seton because her significant amount of muscle involvement. He is back today in follow-up. He is doing better but he is having some drainage. Review of Systems: All other systems negative except as per HPI and scanned media Physical exam: Constellation: No apparent distress. Head: Normocephalic Eyes: Anicteric Ears, mouth and nose: Normal Neurologic: Non-focal motor function Respiratory: Non-labored breathing Skin: No rashes Musculoskeletal: No gross bony deformities On exam, the seton is much more fixed in the tract. Assessment and Plan: Mr. Du Anderson is a 67 y.o. male with a seton through an anal fistula. In another month, he should be ready for a lift procedure. We discussed that. We discussed the risk of failure. We discussedthe chance that if he does fail, we can just do a fistulotomy of intersphincteric fistula. We will arrange that for sometime in the near future. Roberto Medley MD 01/11/2023 4:15 PM This note was created in part with the assistance of [employer] voice recognition software. Emergency Department Physician variances and error may occur. Not every sentence has been reviewed in its entirety. For questions about the documentation above, please contact Dr. Medley. documented in this encounter Plan of Treatment Not on file documented as of this encounter Visit Diagnoses Diagnosis Anal fistula- Primary documented in this encounter Care Teams Supervisor Laboratory Animal Facility Relationship Specialty Start Date End Date Gianluca Price MD PCP - General 06/18/17 Ayden Corona DO [address] [address] Referring Physician Surgery 10/29/22 Roberto Medley MD [phone] [place] [address] Surgeon Colon and Rectal Surgery 2/17/23 documented as of this encounter
--- OUTSIDE RECORDS SUMMARY | 2024-10-05 02:51 | XMS_ITS | Encounter Summary ---
Author Organization [facility] Healthcare Address [address] [place] [address] Care Team Providers Care Marketing Professor Name Role Phone Gianluca Price MD Primary Care Provider Reason for Visit * Auth/Cert Specialty Diagnoses / Procedures Referred By Contac t Referred To Contact Diagnoses Abnormal EKG Abnormal stress test Chest pain, unspecified type Coronary artery disease of [place] artery of [place] heart with stable angina pectoris (HCC) Acute diastolic congestive heart failure (CMS/HCC) (HCC) Abnormal EKG [R94.31] Abnormal stress test [R94.39] Chest pain, unspecified type [R07.9] Coronary artery disease of [place] artery of [place] heart with stable angina pectoris (CMS/HCC) (HCC) [I25.118] Acute diastolic congestive heart failure (CMS/HCC) (HCC) [I50.31] Procedures IA CATH PLMT L HRT & ARTS W/NJX & ANGIO IMG S&I LEFT HEART CATHETERIZATION WITH CORONARY ANGIOGRAPHY AND WITH OR WITHOUT LEFT VENTRICULOGRAM [id number] Referral ID Status Reason Start Date Expiration Date Visits Re quested Visits Authorized [id number] 1 1 Encounter Details Date Type Department Care Team (Late st Contact Info) Description 04/25/2022 3:38 PM CDT - 04/25/2022 5:23 PM CDT Surgery [facility] [address] [place] [address] Kam Adamson MD [address] [place] [address] PCI CRISTHIAN MAJOR CORONARY [id number] - [id number] Surgery Details Date/Time Status Location OR Service Patient Class Case Class Case Type Trauma Case? 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 If you need to speak to someone after 5pm please call [facility] at [phone] and ask the skidder operator topage the Cardiac Real Estate Valuer Fellow affirmative action specialist. documented in this encounter Medications at Time [...] : 1955 Date of Procedure: 04/25/2022 ORDERING FISH HATCHERY SUPERINTENDENT: Surgeon(s): Kam Adamson I., MD Ramos, Anil [...] [x] Yes [] No [] Contraindicated Beta Naatoliy (Any): [x] Yes [] No [] Contraindicated Ca Channel Anatoliy (Any): [] Yes [x] No [] Contraindicated Long Acting Nirates (Any): [] Yes [x] No [] Contraindicated Non-Statin (Any): [] Yes [x] No [] Contraindicated Ranolazin: [] Yes [] No [] Contraindicated Statin (Any): [x] Yes [] No [] Contraindicated Indications for Real Estate Valuer visit (Select all that apply): [] ACS [...] ESRD [] Dialysis [] HD []PD: Prior [place]: [] Yes [x] No If Yes, Most Recent [place] Date: Tobacco Use Social History Tobacco Use [...] (MSEC) 416 ms QTc 474 ms R [place] 0 degrees T [place] 11 degrees Diagnosis Atrial fibrillation Abnormal ECG [...] Yes, Newly Diagnosed: [x] Yes [] No [place] Class: [] Class I [] Class II [...] PT Left 2+ 2+ Right 2+ 2+ CSHA Clinical Frailty Scale: [] 1: Very [...] Seymour M.D. Fellow in Cardiovascular Disease [facility] in [facility] Cosigned by Kam Adamson MD at 04/25/2022 [...] : 1955 Date of Procedure: 04/25/2022 ORDERING FISH HATCHERY SUPERINTENDENT: Surgeon(s): Ari Bradley MD Procedure(s): LEFT HEART CATHETERIZATION WITH CORONARY ANGIOGRAPHY AND WITH OR WITHOUT LEFT VENTRICULOGRAM [id number] Requested Diagnostic: [] Coronary Angiograms Only [x] [...] occurring over the last couple monthsReferred for [facility]. NARRATIVE: ALLERGIES: Rosuvastatin Topical Iodine Allergy: [x] [...] Yes [] No [] Contraindicated Indications for Real Estate Valuer visit (Select all that apply): [] ACS [...] ESRD [] Dialysis [] HD []PD: Prior [place]: [] Yes [x] No If Yes, Most Recent [place] Date: Tobacco Use Social History Tobacco Use Smoking Status Never Smoker Smokeless Tobacco Never Used Previous Cardiac and Peripheral Interventions: (Include hospital/procedure/most recent date) Cardiac Cath/Prior PCI:[x] Yes [] No If Yes, Most Recent PCI Date: 11-30-19 Report Available: [x] Yes [] No ?? [id number] 3 vessel disease of the RCA, LAD [...] Yes, Newly Diagnosed: [] Yes [x] No NYHS Class: [] Class I [] [...] above EKG: sinus CXR: no acute abnormality [facility] Clinical Frailty Scale: [] 1: Very Fit [...] Completed/Reviewed and Assessment Completed by: Santiago Masterson Copy Operator Cosigned by Ari Bradley MD at 04/25/2022 [...] pain, unspecified type Coronary artery disease of [place] artery of [place] heart with stable angina pectoris (CMS/HCC) (HCC) Acute diastolic congestive heart failure (CMS/HCC) (HCC) CBC WITHOUT DIFFERENTIAL Routine 04/25/2022 12:58 PM CDT ECG 12-LEAD Routine 04/25/2022 11:26 AM CDT documented in this encounter Results * eGFR (04/25/2022 8:00 PM CDT) eGFR >90 90 - 130 mL/min/1. 73 m2 [facility] Comment: Collection date/time has been modified to: [...] of Race in Diagnosing Kidney Disease, JASN 2020). The CKD-EPI equation should not be used for patients with unstable renal function and has not been validated in children and those over 70. Current interpretive data was last reviewed 2021. Blood 04/25/2022 8:00 PM CDT 04/25/2022 8:18 PM CDT Mitch Seymour MD LAB BLOOD ORDERABL ES Edited Result - Final [facility] Department [place] [address] * Basic metabolic panel (04/25/2022 8:00 PM CDT) Sodium 141 135 - 145 mmol/L [facility] Comment:Collection date/time has been modified to: 20:00:00. Previous collection date/time: 12:02:00. Potassium, pl 3.4 3.3 - 4.9 mmol/L [facility] Comment:Collection date/time has been modified to: 20:00:00. Previous collection date/time: 12:02:00. Chloride 107 97 - 110 mmol/L [facility] Comment:Collection date/time has been modified to: 20:00:00. Previous collection date/time: 12:02:00. CO2 24 22 - 32 mmol/L [facility] Comment:Collection date/time has been modified to: 20:00:00. Previous collection date/time: 12:02:00. Anion gap 10 2 - 15 mmol/L [facility] Comment:Collection date/time has been modified to: 20:00:00. Previous collection date/time: 12:02:00. BUN 11 8 - 25 mg/dL [facility] Comment:Collection date/time has been modified to: 20:00:00. Previous collection date/time: 12:02:00. Creatinine 0.85 0.80 - 1.30 mg/dL [facility] Comment:Collection date/time has been modified to: 20:00:00. Previous collection date/time: 12:02:00. Glucose 168 70 - 199 mg/dL [facility] Comment: Collection date/time has been modified to: [...] Calcium 8.6 8.5 - 10.3 mg/dL [facility] Comment:Collection date/time has been modified to: 20:00:00. Previous collection date/time: 12:02:00. Blood 04/25/2022 8:00 PM CDT 04/25/2022 8:05 PM CDT us Mitch Seymour MD LAB BLOOD ORDERABL ES Edited Result - Final [facility] Department [place] [address] * (ABNORMAL) CBC without differential (04/25/2022 8:00 PM CDT) WBC 7.0 3.8 - 9.9 K/cumm [facility] Comment:Collection date/time has been modified to: 20:00:00. Previous collection date/time: 12:02:00. Hgb 11.5(L) 13.0 - 17.5 g/dL [facility] Comment:Collection date/time has been modified to: 20:00:00. Previous collection date/time: 12:02:00. Hct 37.5(L) 38.9 - 50.3 % [facility] Comment:Collection date/time has been modified to: 20:00:00. Previous collection date/time: 12:02:00. Plt 227 150 - 400 K/cumm [facility] Comment:Collection date/time has been modified to: 20:00:00. Previous collection date/time: 12:02:00. MPV 11.2 9.1 - 12.3 fL [facility] Comment:Collection date/time has been modified to: 20:00:00. Previous collection date/time: 12:02:00. RBC 4.72 4.30 - 5.80 M/cumm [facility] Comment:Collection date/time has been modified to: 20:00:00. Previous collection date/time: 12:02:00. MCV 79.4(L) 81.3 - 96.4 fL [facility] Comment:Collection date/time has been modified to: 20:00:00. Previous collection date/time: 12:02:00. MCH 24.4(L) 27.1 - 33.3 pg [facility] Comment:Collection date/time has been modified to: 20:00:00. Previous collection date/time: 12:02:00. MCHC 30.7(L) 32.3 - 35.7 g/dL [facility] Comment:Collection date/time has been modified to: 20:00:00. Previous collection date/time: 12:02:00. RDW CV 17.2(H) 11.1 - 14.9 % [facility] Comment:Collection date/time has been modified to: 20:00:00. Previous collection date/time: 12:02:00. RDW SD 49.3(H) 35.7 - 48.1 fL [facility] Comment:Collection date/time has been modified to: 20:00:00. Previous collection date/time: 12:02:00. NRBC abs 0.00 0.00 - 0.01 K/cumm [facility] Comment:Collection date/time has been modified to: 20:00:00. Previous collection date/time: 12:02:00. Blood 04/25/2022 8:00 PM CDT 04/25/2022 8:05 PM CDT us Mitch Seymour MD LAB BLOOD ORDERABL ES Edited Result - Final Performing Organization Address City/[facility] [address]/ZIP Co de Phone Number [facility] Department [place] [address] * (ABNORMAL) POCT Activated clotting time, low range (04/25/2022 5:42 PM CDT) ACT 249(H) 123 - 168 sec [facility] Blood 04/25/2022 5:42 PM CDT 04/25/2022 5:42 PM CDT us Ari Bradley MD LAB POCT ORDERABLES - DEVICE F inal Result Performing Organization Address City/[facility] [address]/ZIP Co de Phone Number [facility] Department [place] [address] * CRISTHIAN MAJOR CORONARY, CORONARY OCT, 1ST [...] low syntax score. 5. Equipment used: ??6 [place]que hockey-stick guide, power turn flex, 2 5 x 15 NC emerge, 4 0 x 26 NC Sapphire, 4 x 40 mm drug-eluting Synergy stent, [place] [facility] intravascular ultrasound. 6. Intravascular ultrasound performed. 7. I provided direct [id number] moderate conscious sedation which was administered by [...] verbage above please contact Kam Adamson at [phone]. Santiago Masterson MD CV CARDIAC CATH PROCEDU RES Final Result * (ABNORMAL) POCT Activated clotting time, low range (04/25/2022 5:10 PM CDT) ACT 318(H) 123 - 168 sec [facility] Blood 04/25/2022 5:10 PM CDT 04/25/2022 5:10 PM CDT Ari Bradley MD LAB POCT ORDERABLES - DEVICE F inal Result Performing Organization Address [facility] [address]/[facility] Co de Phone Number [facility] [place] [address] * POCT Activated clotting time, low range (04/25/2022 4:57 PM CDT) ACT 139 123 - 168 sec [facility] Blood 04/25/2022 4:57 PM CDT 04/25/2022 4:57 PM CDT Result [facility] Ari Bradley MD LAB POCT ORDERABLES - DEVICE F inal Result Performing Organization Address [facility] [address]/[facility] Co de Phone Number [facility] [place] [address] * Type and screen (04/25/2022 2:00 PM CDT) ABO Rh O Positive [facility] Eddie, indirect Negative [facility] Comment:Patient has previous antibody history Blood 04/25/2022 2:00 PM CDT 04/25/2022 2:10 PM CDT Narrative [facility] - 04/25/2022 4:02 PM CDT Has the patient had Daratumumab or Isatuximab in the past 6 months?->Unknown us Patti Cobb NP LAB BLOOD BANK TEST ORDERABLE S Final Result [facility] Department [place] [address] * LEFT HEART CATHETERIZATION WITH CORONARY ANGIOGRAPHY AND WITH AND WITHOUT LEFT VENTRICULOGRAM (04/25/2022 1:13 PM CDT) Anatomical Region Laterality Modality X-Ray Angiograph y Narrative 04/25/2022 1:52 PM CDT CARDIAC CATHETERIZATION Patient: Du Anderson [id number] : 1955 Date of Service: 04/25/2022 FINAL PATIENT CLINICAL PROFILE: Du Anderson is a 66 y.o. White male came for a cardiac cath. PRINCIPAL AND SECONDARY DIAGNOSES: 1. Complex coronary disease. PCI of trifurcating left main circumflex, inferior ramus, superior ramus, and ostial LAD in a staged manner with multiple CRISTHIAN stents in 2016. Cath His prior complex stents are patent [...] used for local anesthesia. 5. A 5F [place] sheath was placed in the right radial [...] complications were ??Noted. Pt remained hemodynamically stable. [phone] I personally performed or supervised the procedure [...] verbage above please contact me ?? at [phone]. us Ari Bradley MD CV CARDIAC CATH PROCEDURES Fin al Result * (ABNORMAL) CBC without differential (04/25/2022 12:58 PM CDT) WBC 6.5 3.8 - 9.9 K/cumm [facility] Hgb 11.5(L) 13.0 - 17.5 g/dL [facility] Hct 38.0(L) 38.9 - 50.3 % [facility] Plt 226 150 - 400 K/cumm [facility] MPV 11.4 9.1 - 12.3 fL [facility] RBC 4.83 4.30 - 5.80 M/cumm [facility] MCV 78.7(L) 81.3 - 96.4 fL [facility] MCH 23.8(L) 27.1 - 33.3 pg [facility] MCHC 30.3(L) 32.3 - 35.7 g/dL [facility] RDW CV 17.1(H) 11.1 - 14.9 % [facility] RDW SD 48.4(H) 35.7 - 48.1 fL [facility] NRBC abs 0.00 0.00 - 0.01 K/cumm [facility] Blood 04/25/2022 12:5 8 PM CDT 04/25/2022 1:23 PM CDT Narrative [facility] - 04/25/2022 1:44 PM CDT To be drawn after hydration bolus complete Patti Cobb NP LAB BLOOD ORDERABLES Final Re sult Performing Organization Address [facility] [address] [facility] Co de Phone Number [facility] Department [place] [address] * ECG 12 lead (04/25/2022 11:26 AM CDT) Pathologist [facility] Ventricular Rate EKG/Min 78 BPM [facility] Atrial Rate 70 BPM [facility] QRS-Interval (MSEC) 104 ms [facility] QT-Interval (MSEC) 416 ms [facility] QTc 474 ms [facility] R [place] 0 degrees [facility] T [place] 11 degrees [facility] Diagnosis Atrial fibrillation possible inferior infarction, old Abnormal ECG When compared with ECG of 13-NOV-2019 09:27, No significant change was found Confirmed by WILLIAN QUIROGA M.D ([id number]) on 04/26/2022 11:33:48 AM [facility] 04/25/2022 11:2 6 AM CDT 04/26/2022 11:33 AM CDT Patti Cobb PAYROLL REPRESENTATIVE ECG ORDERABLES Final Result Performing Organization Address [facility] [address] [facility] de Phone Number [facility] documented in this encounter Visit Diagnoses Diagnosis Abnormal EKG Nonspecific abnormal electrocardiogram (ECG) (EKG) Abnormal stress test Other nonspecific abnormal cardiovascular system function study Chest pain, unspecified type Coronary artery disease of [place] artery of [place] heart with stable angina pectoris (HCC) Acute diastolic congestive heart failure (CMS/HCC) (HCC) Abnormal cardiovascular stress test Other nonspecific abnormal cardiovascular system function study Coronary artery disease involving [place] coronary artery of [place] heart without angina pectoris Abnormal EKG Nonspecific abnormal electrocardiogram (ECG) (EKG) Abnormal stress test Other nonspecific abnormal cardiovascular system function study Chest pain, unspecified type Coronary artery disease of [place] artery of [place] heart with stable angina pectoris (HCC) Acute diastolic congestive heart failure (CMS/HCC) (HCC) Chest pain, unspecified type documented in this encounter Admitting Diagnoses Diagnosis Abnormal cardiovascular stress test Other nonspecific abnormal cardiovascular system function study Coronary artery disease involving [place] coronary artery of [place] heart without angina pectoris Abnormal EKG Nonspecific [...] at 1415, For 1 dose, Indications: Prophylaxis, SurgicalIndications:Prophylax is, Surgical Given 04/25/2022 1:49 PM CDT 1 g 200 mL/hr clopidogreL (PLAVIX) tablet 525 mg 525 mg, oral, Once, On Sat04/25/22 at 1415, For 1 dose Given 04/25/2022 1:50 PM CDT 525 mg fentaNYL (SUBLIMAZE) preservative free injection As needed, Starting on Sat04/25/22 at 1643, Intra-Procedure (CV) Given 04/25/2022 5:32 PM CDT 50 mcg Given 04/25/2022 4:43 PM CDT 50 mcg heparin 1,000 unit/mL injection As needed, Starting on Sat04/25/22 at 1702, Intra-Procedure (CV) Given 04/25/2022 5:02 PM CDT 10,000 Units heparin in 0.9% sodium chloride 25,000 unit/250 [...] injection As needed, Starting on Sat04/25/22 at 1742, Intra-Procedure (CV) Given 04/25/2022 5:42 PM CDT 75 mL midazolam (VERSED) 1 mg/mL preservative free injection Administer over 2 Minutes, As needed, Starting on Sat04/25/22 at 1643, Intra-Procedure (CV) Given 04/25/2022 5:32 PM CDT 2 mg Given 04/25/2022 4:43 PM CDT 2 mg niCARdipine (CARDENE) 1 mg/10 mL in sodium chloride 0.9% (premix) As needed, Starting on Sat04/25/22 at 1655, Intra-Procedure (CV) Given 04/25/2022 5:28 PM CDT 150 mcg Given 04/25/2022 4:55 PM CDT 200 mcg nitroglycerin injection 100 mcg/mL in D5W 10 mL As needed, Starting on Sat04/25/22 at 1655, Intra-Procedure (CV) Given 04/25/2022 5:28 PM CDT 100 mcg Given 04/25/2022 5:06 PM CDT 150 mcg Given 04/25/2022 4:55 PM CDT 200 mcg sodium chloride 0.9% [...] 11:40 AM CDT 150 mL/hr 150 mL/hr sodium chloride 0.9% infusion Continuous PRN, Starting on Sat04/25/22 at 1651, Intra-Procedure (CV) New Bag 04/25/2022 4:51 PM CDT 150 mL/hr 150 mL/hr documented in this encounter Active and Recently [...] Gem Gray RN)1732 (Given - Provider: Gem Gary RN) heparin 1,000 unit/mL injection (CANCELED) As [...] 25,000 units/250 mL (100 units/mL) infusion (premix) 2 04/25/2022 heparin in 0.9% sodium chlor joanie 25,000 unit/250 mL infusion (premix) 04/25/2022 ioversoL (OPTIRAY 350) injection 04/25/20 lidocaine (XYLOCAINE) 10 mg/ mL (1 %) injection 04/25/2022 midazolam (VERSED) 1 mg/mL p reservative free injection 04/25/2022 nitroglycerin injection 100 mcg/mL in D5W 10 mL 04/25/2022 sodium chloride 0.9% flush 0.5-20 mL 2 04/07 sodium chloride 0.9% infusion 04/25/2022 verapamiL (ISOPTIN) injection 1 04/25/2022 Discharge Count Last Ordered Date First Orde red Date DISCHARGE PATIENT 1 04/25/2022 CORE MEASURES Count Last Ordered Date First Ord ered Date REASON FOR NO VTE PROPHYLAXIS AT ADMISSION 04/25/2022 REASON FOR NOT PRESCRIBING S TATIN MEDICATION AT DISCHARGE 1 04/25/2022 Case Request Count Last Ordered Date First Orde red Date CASE REQUEST SNUBBER 1 04/25/2022 documented in this encounter Care Teams Marketing Professor Relationship Specialty Start Date End Date Gianluca Price MD PCP - General 06/18/17 documented as of this encounter
--- OUTSIDE RECORDS SUMMARY | 2024-10-05 02:51 | XMS_ITS | Encounter Summary ---
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 73 m2 [facility] Comment: Interpretive Data Reference Interval Normal ?>/= 90 [...] interpretive data was last reviewed 2021. Blood 06/21/2022 10:5 7 AM CDT 06/21/2022 1:54 PM CDT us Ari Bradley MD LAB BLOOD ORDERABLES Final Res ult [facility]IA [facility] Department [place] [address] * Lipid panel (06/21/2022 10:57 AM CDT) Cholesterol 130 30 - 199 mg/dL [facility] Comment: Interpretive Data Ages < or = 19 years ??Acceptable: ? <170 mg/dL ??Borderline high: ??170-199 mg/dL ??High: ? >or= 200 mg/dL Ages > or = 20 years ??Desirable: ?<200 mg/dL ??Borderline high: ??200-239 mg/dL ??High: ? >or= 240 mg/dL Literature References: 1. Expert Panel on Integrated Guidelines for Cardiovascular Health and Risk Reduction in Children and Adolescents. Pediatrics 2011;128:S213 2. NCEP Expert Panel. Circulation 2004;110:227 Current Interpretive Data was last revised on 2018. Triglycerides 145 <=149 mg/dL [facility] Comment: Interpretive Data Ages < or = 9 years ??Acceptable: ? <75 mg/dL ??Borderline high: ??75-99 mg/dL ??High: ? >or= 100 mg/dL Ages 10 to 20 years ??Acceptable: ? <90 mg/dL ??Borderline high: ??90-129 mg/dL ??High: ? >or= 130 mg/dL Ages > or = 20 years ??Desirable: ?<150 mg/dL ??Borderline high: ??150-199 mg/dL ??High: ? 200-499 mg/dL ?Very high: ?? >or= 499 mg/dL Literature References: 1. Expert Panel on Integrated Guidelines for Cardiovascular Health and Risk Reduction in Children and Adolescents. Pediatrics 2011;128:S213 2. NCEP Expert Panel. Circulation 2004;110:227 Current Interpretive Data was last revised on 2018. HDL 42 >=40 mg/dL [facility] Comment: Interpretive Data Ages < or = 19 years ??Acceptable: ? >45 mg/dL ??Borderline low: ?? 40-45 mg/dL ??Low: ? <40 mg/dL Ages > or = 20 years ??Desirable: ?>or= 60 mg/dL ??Low: ? <40 mg/dL Literature References: 1. Expert Panel on Integrated Guidelines for Cardiovascular Health and Risk Reduction in Children and Adolescents. Pediatrics 2011;128:S213 2. NCEP Expert Panel. Circulation 2004;110:227 Current Interpretive Data was last revised on 2018. LDL, calculated 59 <=129 mg/dL [facility] Comment: Interpretive Data Ages < or = 19 years ??Acceptable: ? <110 mg/dL ??Borderline high: ??110-129 mg/dL ??High: ?>or= 130 mg/dL Ages > or = 20 years ??Optimal: ? <100 mg/dL ??Near optimal: ?100-129 mg/dL ??Borderline high: ?? 130-159 mg/dL ??High: ?>160 mg/dL Literature References: 1. Expert Panel on Integrated Guidelines for Cardiovascular Health and Risk Reduction in Children and Adolescents. Pediatrics 2011;128:S213 2. NCEP Expert Panel. Circulation 2004;110:227 Current Interpretive Data was last revised on 2018. Non-HDL Cholesterol 88 mg/dL [facility] Comment: Interpretive Data Ages < or = 19 years ??Acceptable: ?<120 mg/dL ??Borderline high: ??120-144 mg/dL ??High: ?>145 mg/dL Ages > or = 20 years ??When triglycerides are >200 mg/dL, Non-HDL cholesterol is a secondary target of ? therapy with treatment goals that are 30 mg/dL greater than the LDL cholesterol target. ? Literature References: 1. Expert Panel on Integrated Guidelines for Cardiovascular Health and Risk Reduction in Children and Adolescents. Pediatrics 2011;128:S213 2. NCEP Expert Panel. Circulation 2004;110:227 Current Interpretive Data was last revised on 2018. Chol/HDL ratio 3 [facility] Blood 06/21/2022 10:5 7 AM CDT 06/21/2022 1:50 PM CDT us Ari Bradley MD LAB BLOOD ORDERABLES Final Res ult [facility] Department [place] [address] * Comprehensive metabolic panel (06/21/2022 10:57 AM CDT) Sodium 139 135 - 145 mmol/L [facility] Potassium, pl 4.0 3.3 - 4.9 mmol/L [facility] Chloride 104 97 - 110 mmol/L [facility] CO2 28 22 - 32 mmol/L [facility] Anion gap 7 2 - 15 mmol/L [facility] BUN 14 8 - 25 mg/dL [facility] Creatinine 0.88 0.80 - 1.30 mg/dL [facility] Glucose 98 70 - 199 mg/dL [facility] Comment: Interpretive Data Fasting glucose >/= 126 mg/dl [...] interpretive data was last revised 2017. Calcium 9.9 8.5 - 10.3 mg/dL [facility] Bilirubin, total 0.7 0.1 - 1.2 mg/dL [facility] Protein, pl 8.1 6.5 - 8.5 g/dL [facility] Albumin 4.7 3.5 - 5.0 g/dL [facility] Alk phos 102 40 - 130 Units/L [facility] ALT 22 7 - 55 Units/L [facility] AST 26 10 - 50 Units/L [facility] Blood 06/21/2022 10:5 7 AM CDT 06/21/2022 1:50 PM CDT us Ari Bradley MD LAB BLOOD ORDERABLES Final Res ult [facility] Department [place] [address] documented in this encounter Visit Diagnoses Diagnosis Dyslipidemia Other and unspecified hyperlipidemia documented in this encounter Care Teams Company Laborer Relationship Specialty Start Date End Date Gianluca Price MD PCP - General 06/18/17 documented as of this encounter
--- OUTSIDE RECORDS SUMMARY | 2024-10-05 02:51 | XMS_ITS | Encounter Summary ---
Author Organization [facility] Address [address] [place] [address] Phone Care Team Providers Care Stoneworking Sander Name Role Phone Gianluca Price MD Primary Care Provider Ayden Corona DO Unavailable [phone] Roberto Medley MD Unavailable [phone] Encounter Details Date Type Department Care Team (Late st Contact Info) Description 02/27/2023 Telephone [facility] Department of Surgery, Section of Colon and Rectal Surgery [address] [place] [address] Advanced Medicine 12th Floor, [place] [address] Wilda Galarza, A Social History Tobacco Use Types Packs/Day Years [...] on file 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 I was out of the office Saturday and was in clinic all day yesterday. I called him back today to discuss and answer any question he may have. I left him a voicemail to call me back. documented in this encounter Plan of Treatment Not on file documented as of this encounter Visit Diagnoses Not on filedocumented in this encounter Care Teams Stoneworking Sander Relationship Specialty Start Date End Date Gianluca Price MD PCP - General 06/18/17 Ayden Corona DO [address] [address] Referring Physician Surgery 10/29/22 Roberto Medley MD [address] [facility] [id number] [place] [address] Surgeon Colon and Rectal Surgery 11/23/22 documented as of this encounter
--- OUTSIDE RECORDS SUMMARY | 2024-10-05 02:51 | XMS_ITS | Encounter Summary ---
Author Organization [facility] Healthcare Address [address] [place] [address] Care Team Providers Care Pediatric Hospitalist Name Role Phone Gianluca Price MD Primary Care Provider ChloeAyden DO Unavailable [phone] Roberto Medley MD Unavailable [phone] Reason for Visit * Auth/Cert (Routine) Specialty Diagnoses / Procedures Referred By Contac t Referred To Contact Diagnoses Anal fistula Anal fistula [K60.3] Procedures MT ANRCT XM SURG REQ ANES GENERAL SPI/EDRL DX MT SURG TX ANAL FISTULA SUBQ MT PLACEMENT SETON EXAM UNDER ANESTHESIA - RECTUM ANAL FISTULOTOMY PLACEMENT SETON Referral ID Status Reason Start Date Expiration Date Visits Re quested Visits Authorized [id number] 1 1 Encounter Details Date Type Department Care Team (Late st Contact Info) Description 12/10/2022 8:45 AM COMPOUND FINISHER - 12/10/2022 9:45 AM COMPOUND FINISHER Surgery [facility] Operating Room [address] [place] [address] Roberto Medley MD [id number] [place] [address] EXAM UNDER ANESTHESIA - RECTUM Surgery Details Date/Time Status Location OR Service Patient Class Case Cl ass Case Type Trauma Case? 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 Gender Identity Not on file Sexual Orientation Not on file Occupation Industry Job Start Date Job End Date Retired Not on file Not on file Not on file documented as of this encounter Last Filed Vital Signs Vital Sign Reading Time Taken Comments Blood Pressure 127/70 12/10/2022 9:45 AM COMPOUND FINISHER Pulse 80 12/10/2022 9:45 AM COMPOUND FINISHER Temperature 36.3 ??C (97.3 ??F) 12/10/2022 9:35 AM CS T Respiratory Rate 14 12/10/2022 9:45 AM COMPOUND FINISHER Oxygen Saturation 100% 12/10/2022 9:45 AM COMPOUND FINISHER Inhaled Oxygen Concentration - - Weight 156.5 kg (345 lb) 11/26/2022 3:30 PM COMPOUND FINISHER Height 195.6 cm (6' 5 ) 11/26/2022 3:30 PM COMPOUND FINISHER Body Mass Index 40.91 11/26/2022 3:30 PM COMPOUND FINISHER documented in this encounter Discharge Instructions * Discharge Instructions* Cece Cabral RN - 12/10/2022 9:09 AM COMPOUND FINISHER You may shower immediately after surgery, allow [...] of narcotic pain medication include Percocet, Oxycontin, [place], Hydrocodone, and Oxycodone. FAQs (frequently asked questions) [...] physical therapy, we are available to assist: [facility] STAR: [facility] [phone] [place] [phone] [facility] [phone] How are some things that you can [...] given by your doctor or other health reproductive healthcare assistant. OUND FINISHER OUND FINISHER documented in this encounter Medications at Time of Discharge allopurinol (ZYLOPRIM) 300 mg tabletIndication s:prevention of acute gout attack Take 1 tablet (300 mg total) by mouth nightly 06/01/2018 cholecalciferol (VITAMIN D-3) 99319 unit capsuleIndicatio ns:supplement Take 1 capsule (10,000 Units total) by mouth mower operator before breakfast multivitamin capsuleIndicatio ns:Vitamin Deficiency Prevention Take 1 capsule by mouth mower operator before breakfast oxyCODONE (ROXICODONE) 5 mg immediate [...] ANESTHESIA - RECTUM ANAL FISTULOTOMY PLACEMENT SETON OUND FINISHER Source Note - Roberto Medley MD - 11/23/2022 2:30 PM COMPOUND FINISHER Colorectal Surgery Consultation Consult requested by Ayden [...] created in part with the assistance of [employer] voice recognition software. Hospice Entrance Attendant variances and error may occur. Not every sentence has been reviewed in its entirety. For questions about the documentation above, please contact Dr. Medley. OUND FINISHER documented in this encounter Miscellaneous Notes * [...] the entire procedure from start to finish OUND FINISHER * Brief Op Note - Sage Howard MD - 12/10/2022 8:39 AM CST Operative Progress Note Surgical Team: Surgeon(s) and Role: * Roberto Medley MD - Primary Anesthesiologist: Nehemiah Hansen MD EDITOR AT LARGE: Lucas Kimble CRNA Biomedical Service Engineer: Adelia Justice RN Biomedical Service Engineer Relief: Natacha Cardoza CRNFA Scrub: Coreen Davis [...] Roberto Medley MD at 12/12/2022 4:03 PM COMPOUND FINISHER OUND FINISHER OUND FINISHER * Pre-Procedure Instructions - Raquel Parikh, ROBERT - 11/26/2022 4:11 PM CST [facility] CPAP Clinic Location: [facility] The night before your surgery: [...] Take morning of surgery cholecalciferol (VITAMIN D-3) 02925 unit capsule Don't take on day of [...] with COVID-19. You test positive for COVID-19. OUND FINISHER * Perioperative Nursing Note - Clara Cruz RN - 11/26/2022 3:39 PM COMPOUND FINISHER [facility] Planning Perioperative Nursing Note Telephone Preoperative Evaluation ([facility]) - TELEPHONE ONLY, NO PHYSICAL EXAM Date: [...] taking differently: Take 80 mg by mouth mower operator before breakfast) 30 tablet 11 carvediloL (COREG) 6.25 mg tablet TAKE 1 TABLET BY MOUTH TWICE DAILY WITH MEALS (Patient taking differently: Take 6.25 mg by mouth 2 (two) times a day with meals) 180 tablet 3 cholecalciferol (VITAMIN D-3) 82477 unit capsule Take 10,000 Units by mouth mower operator before breakfast clopidogreL (PLAVIX) 75 mg tablet TAKE 1 TABLET BY MOUTH DAILY (Patient taking differently: Take 75mg by mouth mower operator before breakfast) 90 tablet 3 dapagliflozin (FARXIGA) 10 mg tablet Take 1 tablet (10 mg total) by mouth daily (Patient taking differently: Take 10 mg by mouth mower operator before breakfast) 14 tablet 0 furosemide (LASIX) 80 mg tablet Take 1 tablet (80 mg total) by mouth daily (Patient taking differently: Take 80 mg by mouth mower operator before breakfast) 90 tablet 2 multivitamin capsule Take 1 capsule by mouth mower operator before breakfast niacin 500 mg tablet Take [...] a day 180 tablet 3 Implants Stent Emerson [employer] Chris Synergy Xd 4mm 48mm System Coronary Stent Everolimus [id number] - [id number] - [id number] - Implanted (Right) Coronary Artery Inventory item: [employer] SCIENTIFIC CHRIS SYNERGY XD 4MM 48MM SYSTEM CORONARY STENT EVEROLIMUS [id number] Model/Cat number: [id number] Serial number: [id number] Big Data Solutions Architect: Hypecal Lot number: [id number] As of 04/25/2022 Status: Implanted SKIN Piercings Remaining: No Wound (LDAs) Type of Wound (LDA): (open area to right buttox with gauze dressing) SCREENINGS Dawson index score: 95 NUTRITION PATIENT CARE PLANNING Advance Directives (For Healthcare) Have you reviewed your Advance Directive and is it valid for this stay?: No Advance Directive: Patient does not have advance directive Communication/Ignition Specialist Needs Communication Needs: Glasses Assistive Devices/DME: Eyeglasses, CPAP/BiPAP Discharge Planning Type of Residence: Private residence Living Arrangements: Spouse/significant other Support Systems: Spouse/significant other Assistance Needed: spouse to provide DC ride post-op FERTILIZER SUPERVISOR NO ADDITIONAL COMMENTS/ FOLLOW UP On Plavix & Eliquis s/p a-fib & cardiac stent 04/2022 OUND FINISHER * Pre-Procedure Instructions - Clara Cruz RN - 11/26/2022 3:38 PM COMPOUND FINISHER [facility] (CPAP) [...] remove nail coverings, artificial nails and nail tanzanian prior to the day of surgery. You should leave your valuables and any jewelry at home. No metal or piercings are allowed in the operating room. You should bring your insurance card, a photo ID (example: Power System Dispatcher's License) and a method of payment for [...] Chart. If you are having surgery at [facility], please arrive on the [...] Pathway to Excellent Care by the followinglink: [email or web address] How To Prepare Your Skin [...] Remove nail coverings, artificial nails and nail tanzanian. Place clean linens on your bed the [...] questions, please call the CPAP Staff at [phone], Saturday-Saturday 8am-4:30pm. All patients should read the below section: All visitors/patients are being asked to wear a clean face mask when entering the hospital. COVID 19 Updates & Visitor Policy: Please access [email or web address] for the most updated information. Information on [facility]: Please view [email or web address] (Patient & Visitor Information) for additional details regarding Advanced Directive forms, AWARE, directions, parking information, lodging, Internet access, dining and more. Information on [facility] or [facility] ([facility]): Please view [email or web address] (Patient and Visitor Information) for parking/directions and more. For MyChart information, to activate account or password recovery, please go to [email or web address] or call [phone] (toll-free: [phone]). Information for Suicide Prevention: National Suicide Prevention Lifeline (8-301- 724-LMCD (0178)). Surgery Times: For patients having surgery @ [facility], [facility] or [facility] ([facility]), if your surgeon's office has not notified you of your surgery time by NOON THE BUSINESS DAY BEFORE your surgery, please call [phone] and ask for your surgeon's office OUND FINISHER documented in this encounter Plan of Treatment Not on file documented as of this encounter Procedures Procedure Name Priority Date/Time Associated Diagnosis Comments PLACEMENT SETON 12/10/2022 8:31 AM COMPOUND FINISHER Anal fistula EXAM UNDER ANESTHESIA - RECTUM 12/10/2022 8:31 AM COMPOUND FINISHER Anal fistula documented in this encounter Visit [...] not administer if patient has already received Acetaminophen-conta ining medications in PACU., Indications: PainIndications:Pratibha n Given 12/10/2022 9:19 AM COMPOUND FINISHER 500 mg bacitracin-polymyxi n B (POLYSPORIN) 500-10,000 unit/gram ointment tube As needed, Starting on Sat12/10/22 at 0850, Intra-Op Given 12/10/2022 8:50 AM COMPOUND FINISHER 1 application (deactivated) bupivacaine-EPINEPH rine (MARCAINE with EPI) 0.25 %-1:200,000 preservative free injection As needed, Starting on Sat12/10/22 at 0850, Intra-Op Given 12/10/2022 8:50 AM COMPOUND FINISHER 40 mL Surgical Site famotidine (PEPCID) injection 20 mg 20 mg, intravenous, Administer over 2 Minutes, Once, On Sat12/10/22 at 0745, For 1 dose, Pre-Op Given 12/10/2022 7:41 AM COMPOUND FINISHER 20 mg Lactated Ringer's (LR) infusion 30 mL/hr, intravenous, Continuous, Starting on Sat12/10/22 at 0745, For 4 hours, Pre-Op, Use a 500 ml bag for End Stage Renal Disease Patients. Discontinue if fluid still running once patient arrives to floor. Rate/Dose Change 12/10/2022 8:43 AM COMPOUND FINISHER 30 mL/hr Rate/Dose Verify 12/10/2022 8:30 AM COMPOUND FINISHER 30 mL/h r New Bag 12/10/2022 7:41 AM COMPOUND FINISHER 30 mL/hr 30 mL/hr ondansetron (ZOFRAN) injection 4 mg 4 mg, intravenous, Administer over 2 Minutes, Once, On Sat12/10/22 at 0745, For 1 dose, Pre-Op Given 12/10/2022 7:41 AM COMPOUND FINISHER 4 mg sodium chloride 0.9% irrigation As needed, Starting on Sat12/10/22 at 0850, Intra-Op Given 12/10/2022 8:50 AM COMPOUND FINISHER 250 mL documented in this encounter Historical Medications * This list may reflect changes made after this encounter. cholecalciferol (VITAMIN D-3) 42752 unit capsuleIndicatio ns:supplement Take 1 capsule (10,000 Units total) by mouth mower operator before breakfast multivitamin capsuleIndicatio ns:Vitamin Deficiency Prevention Take 1 capsule by mouth mower operator before breakfast added in this encounter Active and Recently Administered Medications Times are shown in COMPOUND FINISHER. Scheduled Medication Order 12/08/2022 12/09/2022 12/10/2022 famotidine [...] Count Last Ordered Date First Ordered Date diphenhydrAMINE (BENADRYL) i njection 12.5 mg 1 [...] 1 12/10/2022 Lactated Ringer's (LR) infusion 1 lidocaine PF [...] chloride 0.9% flush 0.5-20 mL 1 03/2023 Diet Count Last Ordered Date First Orde red Date ADULT DISCHARGE DIET 1 12/10/2022 Nursing Count Last Ordered Date First Orde red Date DISCHARGE ACTIVITY 4 12/10/2022 DISCHARGE CALL PROVIDER 6 12/10/2022 DISCHARGE DRESSING 4 12/10/2022 OTHER FOLLOW UP 1 12/10/2022 Discharge Count Last Ordered Date First Orde red Date DISCHARGE PATIENT 1 12/10/2022 documented in this encounter Care Teams Pediatric Hospitalist Relationship Specialty Start Date End Date Gianluca Price MD PCP - General 06/18/17 Ayden Corona DO [address] [facility] [address] [place] [address] Referring Physician Surgery 10/29/22 Roberto Medley MD [id number] [place] [address] Surgeon Colon and Rectal Surgery 11/23/22 documented as of this encounter
--- OUTSIDE RECORDS SUMMARY | 2024-10-05 02:51 | XMS_ITS | Encounter Summary ---
Author Organization [facility] Address [address] [place] [address] Care Team Providers Care Unarmed Security Officer Name Role Phone Gianluca Price MD Primary Care Provider Ayden Corona Ankit DO Unavailable [phone] Roberto Medley MD Unavailable [phone] Reason for Visit * Auth/Cert (Routine) Specialty Diagnoses / Procedures Referred By Contac t Referred To Contact Diagnoses Anal fistula Anal fistula [K60.3] Procedures IN SURG TX ANAL FISTULA INTERSPHINCTERIC LIGATION INTERSPHINCTERIC FISTULA TRACT Referral ID Status Reason Start Date Expiration Date Visits Re quested Visits Authorized [id number] 1 1 Encounter Details Date Type Department Care Team (Late st Contact Info) Description 02/21/2023 7:15 AM CDT - 02/21/2023 8:30 AM CDT Surgery [facility] Operating Room [address] [place] [address] Roberto Medley MD [phone] [place] [address] LIGATION INTERSPHINCTERIC FISTULA TRACT Surgery Details Date/Time Status Location OR Service Patient Class Case Cl ass Case Type Trauma Case? 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 Gender Identity Not on file Sexual Orientation Not on file Occupation Industry Job Start Date Job End Date Retired Not on file Not on file Not on file documented as of this encounter Last Filed Vital Signs Vital Sign Reading Time Taken Comments Blood Pressure 117/77 02/21/2023 6:10 AM CDT Pulse 83 02/21/2023 6:10 AM CDT Temperature 36.7 ??C (98.1 ??F) 02/21/2023 6:10 AM CD T Respiratory Rate 14 02/21/2023 6:10 AM CDT Oxygen Saturation 97% 02/21/2023 6:10 AM CDT Inhaled Oxygen Concentration - - Weight 154.2 kg (340 lb) 01/24/2023 3:55 PM CDT Height 195.6 cm (6' 5 ) 01/24/2023 3:55 PM CDT Body Mass Index 40.32 01/24/2023 3:55 PM CDT documented in this encounter Discharge Instructions * Discharge Instructions* Aurora Petty RN - 02/21/2023 8:47 AM CDT You have received anesthesia, therefore, for the next 24 hours and/or while taking narcotic pain medication; -Do NOT drive a vehicle -Do NOT drink alcohol -Do NOT make important personal or business decisions or sign legal documents. Examples of narcotic pain medication include Percocet, Oxycontin, [place], Hydrocodone, and Oxycodone. FAQs (frequently asked questions) [...] physical therapy, we are available to assist: [facility] STAR: [facility] Aleksey [facility] [phone] [place] [phone] [facility] [phone] How are some things that you can [...] given by your doctor or other health director career services. documented in this encounter Medications at Time of Discharge allopurinol (ZYLOPRIM) 300 mg tabletIndication s:prevention of acute gout attack Take 1 tablet (300 mg total) by mouth nightly 06/01/2018 cholecalciferol (VITAMIN D-3) 62307 unit capsuleIndicatio ns:supplement Take 1 capsule (10,000 Units total) by mouth cnc set up operator before breakfast multivitamin capsuleIndicatio ns:Vitamin Deficiency Prevention Take 1 capsule by mouth cnc set up operator before breakfast amoxicillin 500 mg capsule Take [...] MOUTH DAILY 100 tablet 2 12/24/2022 4 niacin 500 mg tablet Take 1 tablet [...] 4 (four) hours as needed for pain 15 tablet 02/21/2023 3 potassium chloride ER 20 mEq CR [...] 4 (four) hours as needed for pain 15 tablet 02/21/2023 04/26/2023 documented in this encounter Discharge Disposition Disposition Code Departure Means Destination Comment s Discharge to home or self care Wheelchair documented in this encounter H&P Notes * Roberto Medley MD - 02/21/2023 7:10 AM CDT I have reviewed the H&P, examined the patient, and endorse the findings as written. Plan of Care : Based on the above findings, I consider Du Anderson to be an acceptable risk for : Procedure(s): LIGATION INTERSPHINCTERIC FISTULA TRACT Source Note - Char Guzmán NP - 02/05/2023 2:44 PM CDT Images from the original note were not included. [facility] Preoperative [facility] and Planning Preoperative Evaluation Record Evaluation type/location: TPAP from [facility] Planned procedure site: [facility] OR Date: 02/05/23 NOTE: This note represents a preoperative evaluation initiated via telephone interview. NO PHYSICALEXAM was performed at the time of initial assessment. A physical exam may be added to this note anddocumented below. Anesthesia Evaluation Du Anderson is a 67 y.o. male Procedure(s): LIGATION INTERSPHINCTERIC FISTULA TRACT Pre-Op Diagnosis Codes: * Anal fistula [K60.3] HISTORY HPI Du Anderson is a 67 y.o. male who is being evaluated prior to undergoing fistulotomy of intersphincteric fistula for anal fistula s.p seton placement 12/10/2022 Past Medical History Information obtained from: patient and chart. Neurological Pertinent negatives: neuromuscular disease; CVA/stroke and TIA Cardiovascular + Hypertension + Hyperlipidemia + CAD + Drug-eluting stent(s) (04/2022: proximal mid RCA;2015: trifurcating left main circumflex, inferior ramus, superior ramus, and ostial LAD) - Prior stent(s) date: 04/25/2022;2016. + CHF (per 07/2022 ECHO) CHF Etiology: ischemic. Diastolic function: unspecified dysfunction LVEF: 40-50%. + Current valvular disease (07/2022 ECHO) - MR - mild; TR - mild. + Atrial fibrillation/flutter (11/05/2019 , he had W[facility]MER cardioversion lasted for few minutes only) - Prior electrical cardioversion. Rhythm type: permanent (AF episode >1yr). Pertinent negatives: NH ; CABG ; pacemaker/ICD; DVT/PE and bare metal stent(s) Comments: Zinc Plater: - last visit 01/23/2023 Respiratory + Sleep apnea (PHILLIP) Prescribed device: PAP compliant and CPAP. Pertinent negatives: COPD; pulmonary hypertension; no O2 use outside the hospital and non-smoker Hepatic / Heme Pertinent negatives: liver disease Renal / Pertinent negatives: renal disease and dialysis Musculoskeletal/Pain + Osteoarthritis Endocrine / Other + Obesity (BMI >30) (BMI 40.32)- morbid obesity (BMI>40). Pertinent negatives: diabetes mellitus; [...] low cardiac risk. Preoperative assessment status: complete. Additional comments: Du Anderson is a 66 [...] risk for perioperative thromboembolic events with a [id number] score of 4 and no known history [...] Please call the CPAP chart room clinician ([phone]) to revisit risk assessment, with any questions, [...] medication when the bleeding risk has decreased. The patient reports that such a plan is already in place since the last surgery. Please call the CPAP chart room clinician ([phone]) with any questions or to discuss alternative management plans. Patient instructions were provided electronically sent via [facility]. Patient verbalized understanding of preoperative plan. Patient has hx PONV Patient is s/p EUA rectum on 12/10/2022. Patient reports doing well with last surgery and has had no changes in health status or medication since. Preoperative evaluation performed by Char Guzmán NP 2:45 PM 02/05/23 . TPAP assessment complete . Patient Active Problem List Diagnosis ??? Abnormal cardiovascular stress test ??? Shortness of breath ??? Hyperlipidemia ??? Hypertension ??? Coronary artery disease involving circle coronary artery of circle heart without angina pectoris ??? Low back [...] PHILLIP (obstructive sleep apnea) ??? Osteoarthritis ??? PONV (postoperative nausea and vomiting) ??? Tricuspid regurgitation Past Surgical History: Procedure Laterality Date ??? ANAL EXAMINATION UNDER ANESTHESIA 12/10/2022 Exam under anesthesia and seton placement ??? CARDIAC STENT PLACEMENT 2015 4 ??? CARDIAC STENT PLACEMENT 04/2022 ??? CARDIOVERSION 2019 [facility]MER guided ??? PARTIAL HIP ARTHROPLASTY Right 09/2021 ??? POSTERIOR FUSION LUMBAR SPINE 2014 L3-5 PSF ([facility]) ??? TOTAL HIP ARTHROPLASTY Left 12/2019 ??? TOTAL KNEE ARTHROPLASTY Right 01/2016 ??? TOTAL KNEE ARTHROPLASTY Left 05/2018 Allergies Allergen Reactions ??? Rosuvastatin Muscle pain Med List Status: Nurse Complete Set By: Lindsey Chappell RN at 01/24/2023 4:02 PM Taking? Last Dose Start Date End Date Provider allopurinol (ZYLOPRIM) 300 mg tablet 01/23/2023 06/01/18 -- Abran Canales MD apixaban (ELIQUIS) 5 mg tablet 01/24/2023 07/06/20 -- Hussain Mitchell MD Take 1 tablet (5 mg total) by mouth 2 (two) times a day Patient taking differently: Take 1 tablet (5 mg total) by mouth 2 (two) times a day atorvastatin (LIPITOR) 80 mg tablet 01/24/2023 04/19/22 04/19/23 Ari Bradley MD Take 1 tablet (80 mg total) by mouth daily Patient taking differently: Take 1 tablet (80 mg total) by mouth cnc set up operator before breakfast carvediloL (COREG) 6.25 mg tablet 01/24/2023 12/24/22 -- Ari Bradley MD TAKE 1 TABLET BY MOUTH TWICE DAILY WITH MEALS Patient taking differently: Take 1 tablet (6.25 mg total) by mouth 2 (two) times a day with meals Notes: Requesting 1 year supply cholecalciferol (VITAMIN D-3) 31730 unit capsule 01/24/2023 -- -- Abran Canales MD clopidogreL (PLAVIX) 75 mg tablet 01/24/2023 07/29/22 -- Ari Bradley MD TAKE 1 TABLET BY MOUTH DAILY Patient taking differently: Take 1 tablet (75 mg total) by mouth cnc set up operator before breakfast Notes: Requesting 1 year supply dapagliflozin (FARXIGA) 10 mg tablet 01/24/2023 06/21/22 -- Ari Bradley MD Take 1 tablet (10 mg total) by mouth daily Patient taking differently: Take 1 tablet (10 mg total) by mouth cnc set up operator before breakfast Notes: [id number] 09/05/2024 furosemide (LASIX) 80 mg tablet 01/24/2023 12/24/22 -- Ari Bradley MD TAKE 1 TABLET BY MOUTH DAILY Patient taking differently: Take 1 tablet (80 mg total) by mouth cnc set up operator before breakfast Notes: Requesting 1 year supply multivitamin capsule 01/24/2023 -- -- ProviderAbran MD niacin 500 mg tablet () 01/24/2023 10/05/19 01/24/23 Hussain Mitchell MD Take 1 tablet (500 mg total) by mouth 2 (two) times a day with meals Patient taking differently: Take 1 tablet (500 mg total) by mouth 2 (two) times a day with meals nitroglycerin (NITROSTAT) 0.4 mg SL tablet -- 06/21/22 06/21/[address] 1 tablet (0.4 mg total) under the tongue every 5 (five) minutes as needed for chest pain (prn) Notes: Emergency use potassium chloride ER 20 mEq CR tablet 01/24/2023 09/06/22 -- Ari Bradley MD Take 1 tablet (20 mEq total) by mouth 2 (two) times a day Patient taking differently: Take 1 tablet (20 mEq total) by mouth 2 (two) times a day Notes: Last K+: 4.0 on 06/21/22 sacubitriL-valsartan (ENTRESTO) 24-26 mg tablet 01/24/2023 03/15/22 -- Ari Bradley MD Take 1 tablet by mouth 2 (two) times a day No current facility-administered medications for this encounter. Current Outpatient Medications: ??? allopurinol (ZYLOPRIM) 300 mg tablet ??? apixaban (ELIQUIS) 5 mg tablet ??? atorvastatin (LIPITOR) 80 mg tablet ??? carvediloL (COREG) 6.25 mg tablet ??? cholecalciferol (VITAMIN D-3) 94992 unit capsule ??? clopidogreL (PLAVIX) 75 mg tablet ??? dapagliflozin (FARXIGA) 10 mg tablet ??? furosemide (LASIX) 80 mg tablet ??? multivitamin capsule ??? niacin 500 mg tablet ??? nitroglycerin (NITROSTAT) 0.4 mg SL tablet ??? potassium chloride ER 20 mEq CR tablet ??? sacubitriL-valsartan (ENTRESTO) 24-26 mg tablet Facility-Administered Medications Ordered in Other Encounters: ??? acetaminophen (TYLENOL) tablet 500 mg, 500 mg, oral, Q6H PRN, 500 mg at 12/10/22 0919 ??? diphenhydrAMINE (BENADRYL) injection 12.5 mg, 12.5 mg, intravenous, Q5 Min PRN ??? fentaNYL (SUBLIMAZE) preservative free injection 25 mcg, 25 mcg, intravenous, Q5 Min PRN ??? hydrALAZINE (APRESOLINE) injection 5 mg, 5 mg, intravenous, Q5 Min PRN ??? HYDROcodone-acetaminophen (NORCO) 5-325 mg per tablet 1 tablet, 1 tablet, oral, Q20 Min PRN ??? HYDROmorphone (DILAUDID) injection 0.2 mg, 0.2 mg, intravenous, Q5 Min PRN ??? labetaloL (NORMODYNE,TRANDATE) injection 5 mg, 5 mg, intravenous, Q5 Min PRN ??? meperidine (DEMEROL) preservative free injection 12.5 mg, 12.5 mg, intravenous, Q10 Min PRN ??? naloxone (NARCAN) 0.4 mg/mL injection 0.04-0.4 mg, 0.04-0.4 mg, intravenous, Once PRN ??? ondansetron (ZOFRAN) injection 4 mg, 4 mg, intravenous, Once PRN ??? prochlorperazine (COMPAZINE) injection 5 mg, 5 mg, intravenous, Once PRN Social History Tobacco Use Smoking Status Never Smokeless Tobacco Never Vaping Use Vaping Status Never Used Alcohol Use: Not At Risk (01/24/2023) AUDIT-C ??? Frequency of Alcohol Consumption: 2-4 times a month ??? Average Number of Drinks: 1 or 2 ??? Frequency of Binge Drinking: Never Substance and Sexual Activity Drug Use Never Family History Problem Relation Age of Onset ??? Diabetes Mother ??? Hypertension Mother ??? Heart attack Father 59 Family history of heart attack - (Added by TW Conv) ??? Hypertension Father ??? Heart disease Brother ??? Hypertension Brother ??? Anesthesia problems Neg Hx There were no vitals filed for this visit. Relevant diagnostics: ECG(s): N/A ?? Echocardiogram(s): 07/20/2022: ?? SUMMARY: LA is markedly dilated. Normal RV cavity size. LV cavity size is normal. Normal LV wall thickness/mass. Mild LV global hypokinesis. ??Normal Inferior vena cava. Normal aorta. ??No AR seen, Mild MR, no , no MS, mild TV regurgitation, normal PV.Diastolic function: indeterminate.LVEF 45%. ?? Stress test(s): 07/12/2021: ?? Impression Pharmaceutical Myocardial perfusion imaging is abnormal. ?? There are moderate??areas of ischemia??in the inferior locations of moderate??severity. (See interpretation above) ?? Overall left ventricular systolic function was normal??with a calculated LVEF of 54 % with??regional wall abnormalities. Gated Spect imaging demonstrates hypokinesis ??that is more prominent in the inferior wall. There was not??LV dilatation present. ?? Clinically normal??ECG. ??Electrocardiographically normal??ECG. ?? Cardiac catheterization(s): 04/25/2022: Interventional Comments Right coronary artery was wired with a power turn flex without difficulty. ??Most severe lesion in the midportion was pre-dilated with a 2 5 x 15 NC emerge. ??Intravascular ultrasound revealed diffuse disease extending to the proximal aspect of the vessel before became more normal in appearance. ??On the basis 4 0 x 40 mm [...] artery with 0% stenosis ANTHONY 3 flow. ?? PFT(s): N/A ?? Vascular studies: N/A ?? Other: N/A PT: No results found for [...] within last 30 days. Dawson index score: 90 documented in this encounter Nursing Notes * Aurora Petty RN - 02/21/2023 9:26 AM CDT BPs not captured between 0835 and 0915. RN remained at bedside throughout recovery for monitoring. VSS. Dr. Seymour at bedside to sign pt out. Pt expressed no questions or concerns upon D/C. documented in this encounter Miscellaneous Notes * Op Note - Roberto Medley MD - 02/21/2023 7:34 AM CDT SURGICAL TEAM Surgeon(s) and Role: * Roberto Medley MD - Primary ANESTHESIA: Monitor Anesthesia Care PREOPERATIVE DIAGNOSIS (ES): Anal fistula POSTOPERATIVE DIAGNOSIS (ES): Anal fistula and perianal sinus tract NAME OF OPERATION: Ligation of intersphincteric fistula tract and drainage of perianal sinus tract INDICATIONS FOR PROCEDURE: The patient is a 67 y.o. male with an anal fistula. He has had an indwelling loose seton for quite sometime and is brought the operating room for a ligation of the intersphincteric fistula tract. FINDINGS: The fistula tract was well-defined. In addition to this fistula tract, there was a large 10 cm deepperi rectal sinus tract that was communicating with the fistula tract at its most superficial point. DESCRIPTION OF PROCEDURE: The patient was brought the operating room, placed under MAC anesthesia in the prone jose-knife position. The perineum was prepped and draped in normal sterile fashion and anesthetized with 40 mL of 0.25% Marcaine. A detailed digital rectal exam was performed which was remarkable only for the setonin place.. The seton was removed and replaced with a ureteral stent. A circum anal incision was made in the intersphincteric groove at the site of the fistula. The intersphincteric space was identified. Dissection was carried out in this space on either side of the fistula. The fistula was then encircled. The fibrotic tissue around the seton was then better defined and elongated. Vicryl ligatures were then placed on each side and tied down. The fistula was then divided with a 15 blade scalpel between the two suture ligatures. The external opening was injected with hydrogen peroxide and there was no bubbling. After 10 mL had been injected, we noted bubbling from deep within our wound well removed from our fistula tract. At this point, we probed the external opening and the entire length ofthe suture scissors disappeared in a cephalad direction into this deep sinus tract. We then placed some plication sutures to bring more external sphincter muscle for the internal portion of our fistula tract.. The internal opening was probed from the anal canal and the probe would not pass. The wound was irrigated. Some Vicryl stitches were placed in the intersphincteric space to reapproximate the muscle layers. The dermis was then closed with interrupted two 0 chromic sutures. The internal opening was closed transanally with a [id number] Vicryl. We then placed a mushroom catheter into this deep sinus tract and secured that to the skin with an 0 silk. Plan will be to leave this mushroom catheter in for several months before removal. Estimated Blood Loss: Minimal IV Fluids: See Anesthesia records Sponge, Instrument and Needle counts: Correct times two Presence statement: I was present for the entire procedure from start to finish * Pre-Procedure Instructions - Char Guzmán NP - 02/05/2023 1:43 PM CDT Center for Preoperative Assessment and Planning CPAP Clinic Location: [facility] CPAP The night before your surgery: * Do not eat anything after midnight the night before your procedure. and * Do not smoke or use tobacco products after midnight the night before surgery. It is best to stop smoking now to improve your health. The morning of your surgery: * You [...] with you on the day of surgery * If you are going to be admitted after surgery at [facility], COVID testing may be performed on the day of surgery, even if you are up to date on your COVID-19 vaccine. * If having surgery at [facility], you may want to bring a credit card if you want to use our Mobile Pharmacy for your discharge medications. Mobile pharmacy is not available at [facility], the Orthopedic Center, or the [place] for [facility]. Outpatient Surgery: * You must have a [...] This includes when you take a nap. If you have Diabetes: * If your blood sugar is low before you come to the hospital, drink a small amount of sugar water or clear juice like apple or cranberry juice. DO NOT drink orange or pineapple juice. These are not clear liquids. * Please call your surgeon and/or the CPAP Clinic if you have any questions. Instructions For Your Medications: Pre-Surgery Instructions: Medication Instructions allopurinol (ZYLOPRIM) 300 mg tablet Take morning of surgery apixaban (ELIQUIS) 5 mg tablet Your surgeon will provide you with instructions for the day of surgery. atorvastatin (LIPITOR) 80 mg tablet Take morning of surgery carvediloL (COREG) 6.25 mg tablet Take morning of surgery cholecalciferol (VITAMIN D-3) 58809 unit capsule Don't take on day of surgery clopidogreL (PLAVIX) 75 mg tablet Your surgeon will provide you with instructions for the day of surgery. dapagliflozin (FARXIGA) 10 mg tablet Don't take on day of surgery furosemide (LASIX) 80 mg tablet Don't take on day of surgery multivitamin capsule Stop taking 1 week prior to surgery niacin 500 mg tablet Don't take on day of surgery nitroglycerin (NITROSTAT) 0.4 mg SL tablet Take on day of surgery if needed potassium chloride ER 20 mEq CR tablet Don't take on day of surgery sacubitriL-valsartan (ENTRESTO) 24-26 mg tablet Don't take on day of surgery Your surgeon will tell you IF YOU SHOULD STOP the following medications and WHEN TO STOP taking them. Do not stop taking them on your own without being told to do so: ELIQUIS, plavix General Instructions For Medications: * Stop all [...] for COVID-19. * Perioperative Nursing Note - Lindsey Chappell RN - 01/24/2023 4:05 PM CDT Center for Preoperative Assessment and Planning Perioperative Nursing Note Telephone Preoperative Evaluation ([facility]) - TELEPHONE ONLY, NO PHYSICAL EXAM Date: 01/24/23 Vitals: 01/24/23 1555 Weight: (!) 154.2 kg (340 lb) Height: 195.6 cm (6' 5 ) CHEST CIRCUMFERENCE: n/a Social History Tobacco Use Smoking Status Never Smokeless Tobacco Never Vaping Use Vaping Status Never Used Substance and Sexual Activity Drug Use Never [...] Outpatient Medications Marked as Taking for the 02/21/23 encounter (Hospital Encounter) Medication Sig Dispense Refill [...] 1 tablet (80 mg total) by mouth cnc set up operator before breakfast) 30 tablet 11 carvediloL (COREG) 6.25 mg tablet TAKE 1 TABLET BY MOUTH TWICE DAILY WITH MEALS (Patient taking differently: Take 1 tablet (6.25 mg total) by mouth 2 (two) times a day with meals) 200 tablet 2 cholecalciferol (VITAMIN D-3) 22864 unit capsule Take 1 capsule (10,000 Units total) by mouth earlymorning before breakfast clopidogreL (PLAVIX) 75 mg tablet TAKE 1 TABLET BY MOUTH DAILY (Patient taking differently: Take 1 tablet (75 mg total) by mouth cnc set up operator before breakfast) 90 tablet 3 dapagliflozin (FARXIGA) 10 mg tablet Take 1 tablet (10 mg total) by mouth daily (Patient taking differently: Take 1 tablet (10 mg total) by mouth cnc set up operator before breakfast) 14 tablet 0 furosemide (LASIX) 80 mg tablet TAKE 1 TABLET BY MOUTH DAILY (Patient taking differently: Take 1 tablet (80 mg total) by mouth cnc set up operator before breakfast) 100 tablet 2 multivitamin capsule Take 1 capsule by mouth cnc set up operator before breakfast niacin 500 mg tablet Take 1 tablet (500 mg total) by mouth 2 (two) times a day with meals (Patient taking differently: Take 1 tablet (500 mg total) by mouth 2 (two) times a day with meals) 180 tablet3 nitroglycerin (NITROSTAT) 0.[address] [...] a day 180 tablet 3 Implants Stent [employer] Chris Synergy Xd 4mm 48mm System Coronary Stent Everolimus [id number] - [id number] - [id number] - Implanted (Right) Coronary Artery Inventory item: [employer] CHR[employer] SYNERGY XD 4MM 48MM SYSTEM CORONARY STENT EVEROLIMUS [id number] Model/Cat number: [id number] Serial number: [id number] Volunteer Recruitment Coordinator: [employer] Chris Lot number: [id number] As of 04/25/2022 Status: Implanted SKIN Piercings Remaining: No Wound (LDAs) Type of Wound (LDA): (denies) SCREENINGS Dawson index score: 90 PATIENT CARE PLANNING Advance Directives (For Healthcare) Have you reviewed your Advance Directive and is it valid for this stay?: Yes Advance Directive: Not applicable, Patient does not have advance directive Communication/Printing Grey Cloth Tender Needs Communication Needs: Glasses Assistive Devices/DME: Eyeglasses, CPAP/BiPAP, Cane, Motorized scooter Hearing - Right Ear: Functional Hearing - Left Ear: Functional Discharge Planning Type of Residence: Private residence Living Arrangements: Spouse/significant other Support Systems: Spouse/significant other Patient expects to be discharged to:: Private residence [employer] [employer] NO ADDITIONAL COMMENTS/ FOLLOW UP * Pre-Procedure Instructions - Lindsey Chappell RN - 01/24/2023 4:02 PM CDT CENTER FOR PREOPERATIVE ASSESSMENT AND [...] remove nail coverings, artificial nails and nail albanian prior to the day of surgery. You should leave your valuables and any jewelry at home. No metal or piercings are allowed in the operating room. You should bring your insurance card, a photo ID (example: [place]'s License) and a method of payment for [...] Chart. If you are having surgery at [facility], please arrive on the day of surgery [...] Pathway to Excellent Care by the followinglink: [email or web address] How To Prepare Your Skin For Surgery [...] Remove nail coverings, artificial nails and nail albanian. Place clean linens on your bed the [...] questions, please call the CPAP Staff at [phone], Saturday-Saturday 8am-4:30pm. All patients should read the below section: All visitors/patients are being asked to wear a clean face mask when entering the hospital. COVID 19 Updates & Visitor Policy: Please access [email or web address] for the most updated information. Information on [facility]: Please view [email or web address] (Patient & Visitor Information) for additional details regarding Advanced Directive forms, AWARE, directions, parking information, lodging, Internet access, dining and more. Information on [facility] or [facility] ([facility]): Please view [email or web address] (Patient and Visitor Information) for parking/directions and more. For MyChart information, to activate account or password recovery, please go to [email or web address] or call [phone] (toll-free: [phone]). Information for Suicide Prevention: National Suicide Prevention Lifeline (0-261- 505-XHKB (5642)). Surgery Times: For patients having surgery @ [facility], [facility] or [facility] ([facility]), if your surgeon's office has not notified you of your surgery time by NOON THE BUSINESS DAY BEFORE your surgery, please call [phone] and ask for your surgeon's office Dr. Medley. documented in this encounter Plan of Treatment Not on file documented as of this encounter Procedures Procedure Name Priority Date/Time Associated Diagnosis Comments LIGATION INTERSPHINCTERIC FISTULA TRACT 02/21/2023 7:15 AM CDT Anal fistula documented in this encounter Visit Diagnoses Diagnosis Anal fistula- Primary Anal fistula documented in this encounter Admitting Diagnoses Diagnosis Anal fistula documented in this encounter Administered Medications Inactive Administered Medications - up to 3 most recent administrations Medication Order MAR Action Action Date Dose Rate Site bacitracin-polymyxin B (POLYSPORIN) 500-10,000 unit/gram ointment tube As needed, Starting on Alina 02/21/23 at 0747, Intra-Op Given 02/21/2023 7:47 AM CDT 1 Application Surgical Site BUPivacaine-EPINEPHrine (MARCAINE w/EPI) 0.25 %-1:200,000 injection As needed, Starting on Alina 02/21/23 at 0729, Intra-Op Given 02/21/2023 7:29 AM CDT 40 mL Surgical Site Lactated Ringer's (LR) infusion 30 mL/hr, intravenous, Continuous, Starting on Alina 02/21/23 at 0615, For 4 hours, Pre-Op, Use a 500 ml bag for End Stage Renal Disease Patients. Discontinue if fluid still running once patient arrives to floor. New Bag 02/21/2023 7:12 AM CDT New Bag 02/21/2023 6:02 AM CDT 30 mL/hr 30 mL/hr oxyCODONE (ROXICODONE) tablet 5 mg 5 mg, oral, Once, On Alina 02/21/23 at 0930, For 1 dose, Phase I, Indications: PainIndications:Pain Given 02/21/2023 8:50 AM CDT 5 mg sodium chloride 0.9% irrigation As needed, Starting on Alina 02/21/23 at 0729, Intra-Op Given 02/21/2023 7:29 AM CDT 500 mL Surgical Site documented in this encounter Active and Recently Administered Medications Times are shown in CDT. Scheduled Medication Order 02/19/2023 02/20/2023 02/21/2023 oxyCODONE (ROXICODONE) tablet 5 mg (COMPLETED) 5 mg, oral, Once, On Alina 02/21/23 at 0930, For 1 dose, Phase I, Indications: Pain 0850 (Given - Provid er: Aurora Petty RN) Continuous Medication Order 02/19/2023 02/20/2023 02/21/2023 Lactated Ringer's (LR) infusion 30 mL/hr, intravenous, Continuous, Starting on Alina 02/21/23 at 0615, For 4 hours, Pre-Op, Use a 500 ml bag for End Stage Renal Disease Patients. Discontinue if fluid still running once patient arrives to floor. 0602 (New Bag - Prov ider: Con Prado RN)0711 (Paused - Provider: Lloyd Reddy CRNA - Comment: Switch to gravity)0712 (New Bag - Provider: Lloyd Reddy CRNA)0835 (Anesthesia Volume Adjustment - Provider: Lloyd Reddy CRNA)1326 (Due: Stopped) Lactated Ringer's (LR) infusion 125 mL/hr, intravenous, Continuous, Starting on Alina 02/21/23 at 0915, For 4 hours, Phase I, Discontinue upon discharge from PACU to the floor. 0908 (Stopped - Prov ider: Aurora Petty RN) PRN Medication Order 02/19/2023 02/20/2023 02/21/2023 acetaminophen (TYLENOL) tablet 500 mg 500 mg, oral, Every 6 hours PRN, headaches, other, Breakthrough Pain and Supplement to other pain meds, Starting on Alina 02/21/23 at 0831, For 2 doses, Phase I, When able to tolerate PO after consulting with Anesthesiologist. Do not administer if patient has already received Acetaminophen-containing medications in PACU., Indications: Pain bacitracin-polymyxin B (POLYSPORIN) 500-10,000 unit/gram ointment tube (CANCELED) As needed, Starting on Alina 02/21/23 at 0747, Intra-Op 0747 (Given - Provid er: Roberto Medley MD - Comment: Given at end of procedure) BUPivacaine-EPINEPHrine (MARCAINE w/EPI) 0.25 %-1:200,000 injection (CANCELED) As needed, Starting on Alina 02/21/23 at 0729, Intra-Op 0729 (Given - Provid er: Roberto Medley MD) diphenhydrAMINE (BENADRYL) 50 mg/mL injection 12.5 mg 12.5 mg, intravenous, Administer over 1 Minutes, Every 5 min PRN, itching, other, For Nausea, administer 25 mg IV., Starting on Alina 02/21/23 at 0831, For 4 doses, Phase I, Max cumulative dose 50 mg., Indications: Itching fentaNYL (SUBLIMAZE) preservative free injection 25 mcg 25 mcg, intravenous, Every 5 min PRN, 2nd line for pain, Use Fentanyl as 1st line medication for extremely severe pain for outpatients, and follow with oral pain medication., Starting on Alina 02/21/23 at 0831, For 4 doses, Phase I, Use as [...] min PRN, high blood pressure, Starting on [facility] 02/21/23 at 0831, Phase I, Max cumulative dose 20 mg. [...] and follow with Oral meds., Starting on [facility] 02/21/23 at 0831, For 2 doses, Phase I, May administer [...] patients with extremely severe pain., Starting on [facility] 02/21/23 at 0831, Phase I, Use as first line pain [...] min PRN, high blood pressure, Starting on [facility] 02/21/23 at 0831, For 4 doses, Phase I, Max cumulative dose 20 mg. Dose if systolic blood pressure greater than 180 AND HR greater than 70. meperidine (DEMEROL) preservative free injection 12.5 mg 12.5 mg, intravenous, Administer over 5 Minutes, Every 10 min PRN, shivering, Starting on Alina 02/21/23 at 0831, For 2 doses, Phase I, Max cumulative dose 25 mg., Indications: Shivering naloxone (NARCAN) 0.4 mg/mL injection 0.04-0.4 mg 0.04-0.4 mg, intravenous, Once as needed, other, excessive sedation/respiratory depression, Starting on Alina 02/21/23 at 0831, For 1 dose, Phase I, Dilute 0.4 [...] Once as needed, nausea, vomiting, Starting on Alina 02/21/23 at 0831, For 1 dose, Phase I, Proceed to prochlorperazine if ondansetron has been given within the last 6 hours. prochlorperazine (COMPAZINE) injection 5 mg 5 mg, intravenous, Administer over 2 Minutes, Once as needed, nausea, vomiting, Starting on Alina 02/21/23 at 0831, For 2 doses, Phase I, If nausea/vomiting not relieved by ondansetron within 30 minutes or if ondansetron has been given within the last 6 hours. May repeat in 15 minutes of nausea not relieved. sodium chloride 0.9% irrigation (CANCELED) As needed, Starting on Alina 02/21/23 at 0729, Intra-Op 0729 (Given - Provid er: Roberto Medley MD - Comment: On sterile field) documented in this encounter Orders Medications Ordered That Laith ht Not Have Been Administered Count Last Ordered Date First Ordered Date acetaminophen (TYLENOL) tablet 500 mg 1 diphenhydrAMINE (BENADRYL) 5 0 mg/mL injection 12.5 mg 1 02/21/2023 famotidine (PEPCID) injection 20 mg 1 02/21 fentaNYL (SUBLIMAZE) preserv ative free injection 25 mcg 1 02/21/2023 hydrALAZINE (APRESOLINE) injection 5 mg 1 0 02/21/2023 HYDROcodone-acetaminophen (N ORCO) 5-325 mg per tablet 1 tablet 1 02/21/2023 HYDROmorphone (DILAUDID) injection 0.2 mg 1 02/21/2023 labetaloL (NORMODYNE,TRANDAT E) injection 5 mg 1 02/21/2023 Lactated Ringer's (LR) infusion 1 lidocaine PF (XYLOCAINE) 10 mg/mL (1 %) preservative free injection 2-10 mg 1 02/21/2023 meperidine (DEMEROL) preserv ative free injection 12.5 mg 1 02/21/2023 naloxone (NARCAN) 0.4 mg/mL injection 0.04-0.4 mg 1 02/21/2023 ondansetron (ZOFRAN) injection 4 mg 1 02/21 prochlorperazine (COMPAZINE) injection 5 mg 1 02/21/2023 scopolamine patch 72 hour 1 patch 1 023 sodium chloride 0.9% flush 0.5-20 mL 1 02/04 Diet Count Last Ordered Date First Orde red Date ADULT DISCHARGE DIET 1 02/21/2023 Nursing Count Last Ordered Date First Orde red Date ACTIVITY 1 02/21/2023 DISCHARGE INSTRUCTIONS 3 02/21/2023 PATIENT MAY SHOWER 1 02/21/2023 WOUND CARE 2 02/21/2023 Discharge Count Last Ordered Date First Orde red Date DISCHARGE PATIENT 1 02/21/2023 documented in this encounter Care Teams Unarmed Security Officer Relationship Specialty Start Date End Date Gianluca Price MD PCP - General 06/18/17 Ayden Corona DO [address] [place] [address] Referring Physician Surgery 10/29/22 Roberto Medley MD [phone] [place] [address] Surgeon Colon and Rectal Surgery 11/23/22 documented as of this encounter
--- OUTSIDE RECORDS SUMMARY | 2024-10-05 02:51 | XMS_ITS | Encounter Summary ---
Author Organization [facility] Address [address] [place] [address] Phone Care Team Providers Care Purchasing/Receiving Name Role Phone Gianluca Pirce MD Primary Care Provider Ayden Corona DO Unavailable [phone] Roberto Medley MD Unavailable [phone] Reason for Visit * Reason Comments New Patient anal fistula * Consultation (Routine) - Closed Specialty Diagnoses / Procedures Referred By Contabelino t Referred To Contact Surgery / Colon and Rectal Surgery Diagnoses Anal fistula Ayden Corona DO [address] [facility] [address] [place] [address] Phone: tel: fax: Roberto Medley MD [id number] [place] [address] Phone: tel: fax: Referral ID Status Reason Start Date Expiration Date V isits Requested Visits Authorized [id number] Closed Specialty Services Required 10/29/2022 11/28/2023 99 99 Encounter Details Date Type Department Care Team (Late st Contact Info) Description 11/23/2022 2:30 PM HUMAN INSIGHTS LEAD ADS MARKETING Office Visit [facility] [address] [facility] [address] [place] [address] Roberto Medley MD [address] [facility] [phone] [place] [address] Anal fistula Social History Tobacco Use Types [...] on file Legal Sex Male 3:11 AM HUMAN INSIGHTS LEAD ADS MARKETING Gender Identity Not on file Sexual Orientation Not on file Occupation Industry Job Start Date Job End Date Retired Not on file Not on file Not on file documented as of this encounter Last Filed Vital Signs Vital Sign Reading Time Taken Comments Blood Pressure 118/78 11/23/2022 2:28 PM HUMAN INSIGHTS LEAD ADS MARKETING Pulse 99 11/23/2022 2:28 PM HUMAN INSIGHTS LEAD ADS MARKETING Temperature 36.8 ??C (98.2 ??F) 11/23/2022 2:28 PM CS T Respiratory Rate - - Oxygen Saturation 96% 11/23/2022 2:28 PM HUMAN INSIGHTS LEAD ADS MARKETING Inhaled Oxygen Concentration - - Weight 156.5 kg (345 lb) 11/23/2022 2:28 PM HUMAN INSIGHTS LEAD ADS MARKETING Height 195.6 cm (6' 5 ) 11/23/2022 2:28 PM HUMAN INSIGHTS LEAD ADS MARKETING Body Mass Index 40.91 11/23/2022 2:28 PM HUMAN INSIGHTS LEAD ADS MARKETING documented in this encounter Progress Notes * Roberto Medley MD - 11/23/2022 2:30 PM CST Colorectal Surgery Consultation Consult requested by Ayden [...] created in part with the assistance of [employer] voice recognition software. Hurricane Tracker variances and error may occur. Not every sentence has been reviewed in its entirety. For questions about the documentation above, please contact Dr. Medley. N INSIGHTS LEAD ADS MARKETING documented in this encounter Plan of Treatment Not on file documented as of this encounter Visit Diagnoses Diagnosis Anal fistula documented in this encounter Discontinued Medications Medication Sig Discontinue Reason Start Date End Da te spironolactone (ALDACTONE) 25 mg tablet TAKE 1 TABLET BY MOUTH DAILY Therapy completed 12/08/2020 11/23/2022 documented as of this encounter Orders Outpatient Referral Count Last Ordered Date Fir st Ordered Date AMB REFERRAL TO COLORECTAL SURGERY 1 2022 documented in this encounter Care Teams Purchasing/Receiving Relationship Specialty Start Date End Date Gianluca Price MD PCP - General 06/18/17 Ayden Corona DO [address] [place] [address] Referring Physician Surgery 10/29/22 Roberto Medley MD [phone] [place] [address] Surgeon Colon and Rectal Surgery 11/23/22 documented as of this encounter
--- OUTSIDE RECORDS SUMMARY | 2024-10-05 02:51 | XMS_ITS | Encounter Summary ---
Author Organization [facility] Address [address] [place] [address] Phone Care Team Providers Care Sow Farm Manager Name Role Phone Gianluca Price MD Primary Care Provider Ayden Corona DO Unavailable [phone] Roberto Medley MD Unavailable [phone] Reason for Visit * Reason Onset Date Comments Surgery Confirmation 12/07/2022 Encounter Details Date Type Department Care Team (Late st Contact Info) Description 12/07/2022 Telephone [facility] Department of Surgery, Section of Colon and Rectal Surgery [address] [facility] Advanced Medicine 12th Floor, [place] [address] Radha Hernandez RMA Surgery Confirmation Social History Tobacco Use Types Packs/Day Years Used Date Smoking Tobacco: Never Smokeless Tobacco: Never Alcohol Use Standard Drinks/Week Comments Yes 0 (1 standard drink = 0.6 oz pur e alcohol) Occasionally AUDIT-C Answer Date Recorded Q1: How often do you have a drink containing alc ohol? 2-4 times a month 11/26/2022 Q2: How many drinks containi ng alcohol do you have on a typical day when you are drinking? 1 or 2 11/26/2022 Q3: How often do you have si x or more drinks on one occasion? Never 11/26/2022 PHQ-2 Answer Date Recorded PHQ-2 Total Score (If total score is 3 or more points, staff should administer the PHQ-9) 2 06/07/2020 Sex and Gender Information Value Date Recorded Sex Assigned at Not on file Legal Sex Male 3:11 AM ADOBE FLEX DEVELOPER Gender Identity Not on file Sexual Orientation Not on file Occupation Industry Job Start Date Job End Date Retired Not on file Not on file Not on file documented as of this encounter Miscellaneous Notes * Telephone Encounter - Radha Hernandez RMA - 12/07/2022 10:34 AM CST Spoke to patient and confirmed prep and surgery. 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 E FLEX DEVELOPER documented in this encounter Plan of Treatment Not on file documented as of this encounter Visit Diagnoses Not on filedocumented in this encounter Care Teams Sow Farm Manager Relationship Specialty Start Date End Date Gianluca Price MD PCP - General 06/18/17 Ayden Corona DO [address] [facility] [address] [place] [address] Referring Physician Surgery 10/29/22 Roberto Medley MD [phone] [place] [address] Surgeon Colon and Rectal Surgery 11/23/22 documented as of this encounter
--- OUTSIDE RECORDS SUMMARY | 2024-10-05 02:51 | XMS_ITS | Encounter Summary ---
Author Organization [facility] Address [address] [place] [address] Phone Care Team Providers Care Grocery Supervisor Name Role Phone Gianluca Price MD Primary Care Provider Reason for Visit * Reason Onset Date Comments Med Samples 07/20/2022 Farxiga, Entrest o and Eliquis Encounter Details Date Type Department Care Team (Late st Contact Info) Description 07/20/2022 Telephone [facility] Cardiology [address] [facility] [address] [place] [address] Ari Bradley MD [address] [facility] [address] [place] [address] Med Samples (Farxiga, Entresto and Eliquis) Social [...] on file Legal Sex Male 3:11 AM JAR CAPPER Gender Identity Not on file Sexual Orientation Not on file Occupation Industry Job Start Date Job End Date Retired Not on file Not on file Not on file documented as of this encounter Miscellaneous Notes * Telephone Encounter - Sydney Nunez RN - 07/22/2022 1:33 PM CDT After pt's Echocardiogram today he was given samples of the following medications as he was in the donut hole and had trouble paying for his medications: Farxiga 10 mg #28 LOT: [id number] Exp: 02/03/25 Eliquis 5 mg #56 LOT: [id number] Exp: 06/2024 Entresto 24/26 mg #112 LOT: [id number] Exp: 02/2024 documented in this encounter Plan of Treatment Not on file documented as of this encounter Visit Diagnoses Not on filedocumented in this encounter Care Teams Grocery Supervisor Relationship Specialty Start Date End Date Gianluca Price MD PCP - General 06/18/17 documented as of this encounter
--- OUTSIDE RECORDS SUMMARY | 2024-10-05 02:51 | XMS_ITS | Encounter Summary ---
Author Organization [facility] Address [address] [place] [address] Phone Care Team Providers Care Storeroom Supervisor Name Role Phone Gianluca Price MD Primary Care Provider Ayden Corona DO Unavailable [phone] Roberto Brooks MD Unavailable [phone] Reason for Visit * Reason Onset Date Comments CPAP Follow Up 11/28/2022 Encounter Details Date Type Department Care Team (Late st Contact Info) Description 11/28/2022 Telephone [facility] Department of Surgery, Section of Colon and Rectal Surgery [address] [facility] Advanced Medicine 12th Floor, [place] [address] Radha Hernandez RMA CPAP Follow Up Social History Tobacco Use [...] on file Legal Sex Male 3:11 AM GLASS TECHNICIAN Gender Identity Not on file Sexual Orientation Not on file Occupation Industry Job Start Date Job End Date Retired Not on file Not on file Not on file documented as of this encounter Miscellaneous Notes * Telephone Encounter - Radha Hernandez RMA - 11/28/2022 2:09 PM CST Spoke with patient about recommendation per CPAP notes. Patient verbalized understanding to stop Eliquis 72 hour prior to procedure and to clopidogrel for 7 days prior to the procedure and starting aspirin 81 mg daily at that time. S TECHNICIAN * Telephone Encounter - Radha Hernandez RMA - 11/28/2022 2:05 PM CST ----- Message from MK Perez sent at 11/27/2022 11:35 AM GLASS TECHNICIAN ----- Regarding: RE: TPAP message - BROOKS He can stay on Aspirin. ----- Message ----- From: Radha Hernandez RMA Sent: 11/27/2022 10:36 AM GLASS TECHNICIAN To: MK Perez Subject: FW: TPAP message - BROOKS What is the recommendation for this patient? Do he want him to stay on his asa? Radha ----- Message ----- From: Raquel Parikh NP Sent: 11/27/2022 10:13 AM GLASS TECHNICIAN To: Andrea Collado Ma Clinical [place] Subject: TPAP message - BROOKS Good morning, This patient has a history of atrial fibrillation at LOW risk for perioperative thromboembolic events with a VON6MI7-EXDf score of 4 and no known history [...] Please call the CPAP chart room clinician ([phone]) to revisit risk assessment, with any questions, [...] medication when the bleeding risk has decreased. [facility] staff message sent to surgeon's office. Please call the CPAP chart room clinician ([phone]) with any questions or to discuss alternative management plans. >>> patient states there is a plan in place to hold eliquis and aspirin but please note wewould recommend him starting 81mg PO aspirin while off his anticoagulation as described above. Patient would need instructions to start aspirin if surgeon is in agreement. Thanks, Raquel Parikh REMOTE ENCODING CENTER MANAGER >NOTE: There is no need to reply to this message but if you would like to send a non-urgent reply, please address it to the [employer] staff message POOL address [facility] REMOTE ENCODING CENTER MANAGER (number [phone]). Please note that messages to this address will be replied to within approximately 1 business day. If you have an urgent reply, please call the CPAP at [phone]. S TECHNICIAN documented in this encounter Plan of Treatment Not on file documented as of this encounter Visit Diagnoses Not on filedocumented in this encounter Care Teams Storeroom Supervisor Relationship Specialty Start Date End Date Gianluca Price MD PCP - General 06/18/17 Ayden Corona DO [address] [place] [address] Referring Physician Surgery 10/29/22 Roberto Brooks MD [phone] [place] [address] Surgeon Colon and Rectal Surgery 11/23/22 documented as of this encounter
--- OUTSIDE RECORDS SUMMARY | 2024-10-05 02:51 | XMS_ITS | Encounter Summary ---
Author Organization [facility] Address [address] [place] [address] Phone Care Team Providers Care [facility] Network Pricing Consultant Name Role Phone Gianluca rPice MD Primary Care Provider Ayden Corona DO Unavailable [phone] Roberto Medley MD Unavailable [phone] Reason for Visit * Reason Onset Date Comments Med Samples 11/21/2022 Eliquis and Farx iga Encounter Details Date Type Department Care Team (Late st Contact Info) Description 11/21/2022 Telephone [facility] Cardiology [address] [facility] 8th [place] [address] [place] [address] Ari Bradley MD [address] [facility] [address] [facility] [address] [place] [address] Med Samples (Eliquis and Farxiga) Social History Tobacco Use Types [...] on file Legal Sex Male 3:11 AM IMPRESS ASSOCIATE Gender Identity Not on file Sexual Orientation Not on file Occupation Industry Job Start Date Job End Date Retired Not on file Not on file Not on file documented as of this encounter Miscellaneous Notes * Telephone Encounter - Sydney Nunez, SURJIT - 11/21/2022 4:06 PM IMPRESS ASSOCIATE Kirk Pt calling to speak with a nurse in regards to Farxiga and Eliquis. Called and spoke with pt who wanted to know if we could set aside samples of Eliquis and Farxiga aside for him to garbage pick up worker on Saturday. Confirmed that we had samples for him. Samples of Eliquis and Farxiga set aside for pt to garbage pick up worker at [facility]: Farxiga 10 mg #: 28 LOT: [id number] Exp: 05/06/25 Eliquis 5 mg #: 56 LOT: [id number] Exp: 12/2024 ESS ASSOCIATE * Telephone Encounter - Audrey Duarte - 11/21/2022 11:03 AM CST Kirk Pt calling to speak with a nurse in regards to Farxiga and Eliquis. ESS ASSOCIATE documented in this encounter Plan of Treatment Not on file documented as of this encounter Visit Diagnoses Not on filedocumented in this encounter Care Teams Healthcare Network Pricing Consultant Relationship Specialty Start Date End Date Gianluca Price MD PCP - General 06/18/17 Ayden Corona DO [address] [facility] [address] [place] [address] Referring Physician Surgery 10/29/22 Roberto Medley MD [phone] [place] [address] Surgeon Colon and Rectal Surgery 11/23/22 documented as of this encounter
--- OUTSIDE RECORDS SUMMARY | 2024-10-05 02:51 | XMS_ITS | Encounter Summary ---
Author Organization [facility] Address [address] [place] [address] Phone Care Team Providers Care Key Account Representative Name Role Phone Gianluca Price MD Primary Care Provider Ayden Corona DO Unavailable [phone] Roberto Medley MD Unavailable [phone] Reason for Referral * Cardiology (Routine) - Closed Specialty Diagnoses / Procedures Referred By Contac t Referred To Contact Diagnoses Atrial fibrillation, unspecified type (HCC) Procedures ECG 12 lead Ari Bradley MD [address] [address] Phone: tel: fax: [facility] (All Locations) Referral ID Status Reason Start Date Expiration Date Visits Re quested Visits Authorized [id number] Closed 01/23/2023 02/22/2024 1 1 Reason for Visit * Consultation (Routine) - Closed Specialty Diagnoses / Procedures Referred By Contac t Referred To Contact Cardiology Diagnoses Mixed hyperlipidemia Primary hypertension Acute diastolic congestive heart failure (CMS/HCC) (HCC) Ari Bradley MD [address] [address] Phone: tel: fax: [facility] (All Locations) Referral ID Status Reason Start Date Expiration Date V isits Requested Visits Authorized [id number] Closed Specialty Services Required 01/22/2023 02/21/2024 12 12 Encounter Details Date Type Department Care Team (Late st Contact Info) Description 01/23/2023 8:45 AM CDT Office Visit [facility] Cardiology [address] [place] [address] Ari Bradley MD [address] [facility] [address] [place] [address] Atrial fibrillation, unspecified type (HCC) (Primary Dx); Mixed hyperlipidemia; Primary hypertension; Acute diastolic congestive heart failure (CMS/HCC) (HCC) Social History Tobacco Use Types Packs/Day Years Used Date Smoking Tobacco: Never Smokeless Tobacco: Never Alcohol Use Standard Drinks/Week Comments Yes 0 (1 standard drink = 0.6 oz pur e alcohol) Occasionally AUDIT-C Answer Date Recorded Q1: How often do you have a drink containing alc ohol? 2-4 times a month 01/24/2023 Q2: How many drinks containi ng alcohol do you have on a typical day when you are drinking? 1 or 2 01/24/2023 Q3: How often do you have si x or more drinks on one occasion? 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 Gender Identity Not on file Sexual Orientation Not on file Occupation Industry Job Start Date Job End Date Retired Not on file Not on file Not on file documented as of this encounter Last Filed Vital Signs Vital Sign Reading Time Taken Comments Blood Pressure 121/79 01/23/2023 8:44 AM CDT Pulse 88 01/23/2023 8:44 AM CDT Temperature 36.7 ??C (98.1 ??F) 01/23/2023 8:44 AM CD T Respiratory Rate - - Oxygen Saturation - - Inhaled Oxygen Concentration - - Weight 157 kg (346 lb 3.2 oz) 01/23/2023 8:44 AM CDT Height 195.6 cm (6' 5.01 ) 01/23/2023 8:44 AM CD T Body Mass Index 41.04 01/23/2023 8:44 AM CDT documented in this encounter Progress Notes * Ari Bradley MD - 01/23/2023 8:45 AM CDT Patient's Name: Du Anderson : 1955 [place]: 01/23/2023 PRINCIPAL AND SECONDARY DIAGNOSES: 1. Complex coronary [...] value of 75. INTERVAL HISTORY: Du Anderson returns for follow-up. He is doing well. He had a stenting of his ostial LAD, ostial ramus, and ostial circumflex in the past. He had a PCI of RCA on 04/25/2022. He continues to do well. He returns for follow-up. His shortness of breath improved. No chest pain noted.. In fact chest painwas never was his main symptoms. He denies any leg swelling.No history of COV-19 infection noted. He had LV dysfunction and moderate to severe central mitral regurgitation based on echocardiogram done in October 2019. His echo on 04/06/2022 showed LVEF 44% with mild MR only. Echo 04/06/2022 SUMMARY: LA is mildly dilated. Normal RV cavity size. LV cavity size is normal. Normal LV wall thickness/mass. mild global LV hypokinesis noted. LVEF 44%. Normal Inferior vena cava. Normal aorta. No AR seen, Mild MR, no , no MS, mild TV regurgitation, normal PV.Strain quality is inadequate for accurate reporting. Diastolic function: Normal REVIEW OF SYMPTOMS: All systems were reviewed and were negative except those stated above. MEDICATIONS: Current Facility-Administered Medications on File Prior to Visit Medication Dose Route Frequency Provider Last Rate Last Admin acetaminophen (TYLENOL) tablet 500 mg 500 mg oral Q6H PRN Kathya Manzo MD 500 mg at 12/10/22 0919 diphenhydrAMINE (BENADRYL) injection 12.5 mg 12.5 mg intravenous Q5 Min PRN Kathya Manzo MD fentaNYL (SUBLIMAZE) preservative free injection 25 mcg 25 mcg intravenous Q5 Min PRN Kathya Manzo MD hydrALAZINE (APRESOLINE) injection 5 mg 5 mg intravenous Q5 Min PRN Kathya Manzo MD HYDROcodone-acetaminophen (NORCO) 5-325 mg per tablet 1 tablet 1 tablet oral Q20 Min PRN Kathya Manzo MD HYDROmorphone (DILAUDID) injection 0.2 mg 0.2 mg intravenous Q5 Min PRKathya Vázquez MD labetaloL (NORMODYNE,TRANDATE) injection 5 mg 5 mg intravenous Q5 Min PRN Kathya Manzo MD meperidine (DEMEROL) preservative free injection 12.5 mg 12.5 mg intravenous Q10 Min PRKathya Vázquez MD naloxone (NARCAN) 0.4 mg/mL injection 0.04-0.4 mg 0.04-0.4 mg intravenous Once PRN Kathya Manzo MD ondansetron (ZOFRAN) injection 4 mg 4 mg intravenous Once PRN Kathya Manzo MD prochlorperazine (COMPAZINE) injection 5 mg 5 mg intravenous Once PRN Kathya Manzo MD Current Outpatient Medications on File Prior to [...] 1 tablet (80 mg total) by mouth insurance loss control surveyor before breakfast) 30 tablet 11 carvediloL (COREG) 6.25 mg tablet TAKE 1 TABLET BY MOUTH TWICE DAILY WITH MEALS 200 tablet 2 cholecalciferol (VITAMIN D-3) 64329 unit capsule Take 1 capsule (10,000 Units total) by mouth earlymorning before breakfast clopidogreL (PLAVIX) 75 mg tablet TAKE 1 TABLET BY MOUTH DAILY (Patient taking differently: Take 1 tablet (75 mg total) by mouth insurance loss control surveyor before breakfast) 90 tablet 3 dapagliflozin (FARXIGA) 10 mg tablet Take 1 tablet (10 mg total) by mouth daily (Patient taking differently: Take 1 tablet (10 mg total) by mouth insurance loss control surveyor before breakfast) 14 tablet 0 furosemide (LASIX) 80 mg tablet TAKE 1 TABLET BY MOUTH DAILY 100 tablet 2 multivitamin capsule Take 1 capsule by mouth insurance loss control surveyor before breakfast niacin 500 mg tablet Take [...] (two) times a day 180 tablet 3 PHYSICAL EXAM: Blood pressure 121/79, pulse 88, temperature 36.7 ??C (98.1 ??F), height 195.6 cm (6' 5.01 ), weight (!) 157 kg (346 lb 3.2 oz). GEN: pleasant in NAD; alert, comfortable HENT: [...] Date LDL 44 06/02/2019 HDL 42 06/21/2022 Cath / PCI 04/25/2022 Successful drug-eluting Synergy stent to the proximal mid right coronary artery with 0% stenosis ANTHONY 3 flow. ASSESSMENT AND PLAN: Du Anderson is a very pleasant 61-year-old gentleman here for follow-up. 1. Coronary disease ; His prior stents were patent. Recent PCI of RCA was done successfully on 04/25/2022. He does not want to do cardiac Rehab phase. He is on Plavix. I have stopped ASA as he is alsoon Eliquis. He is other vinson recommended to start walking . She will start the aspirin back after April 11, 2020 when she will stop the Plavix. 2. Atrial Fibrillation ; He is on Eliquis. No history of [...] to 40 mEq daily 8. Chronic atrial fibrillation :He is on Eliquis 5 mg BID. In [...] six months. Sincerely, Ari Bradley M.D., F.A.C.C. cooker mechanic [facility]. [place] This note was written using a voice recognition system hardware device. Please note there may be variance in spelling, stephanie, and syntax because of the voice recognition system hardware. Therefore,not every sentence has been reviewed in its entirety. If there are any concerns about verbage aboveplease contact me at [phone]. documented in this encounter Plan of Treatment Not on file documented as of this encounter Procedures Procedure Name Priority Date/Time Associated Diagnosis Comments ECG 12-LEAD Routine 01/23/2023 Atrial fibrillation, unspecified type (HCC) documented in this encounter Results * ECG 12 lead (01/23/2023) Ari Bradley MD ECG ORDERABLES Final Result documented in this encounter Visit Diagnoses Diagnosis Atrial fibrillation, unspecified type (HCC)- Primary Mixed hyperlipidemia Primary hypertension Unspecified essential hypertension Acute diastolic congestive heart failure (CMS/HCC) (HCC) documented in this encounter Orders Outpatient Referral Count Last Ordered Date Fir st Ordered Date AMB REFERRAL TO CARDIOLOGY 1 01/23/2023 documented in this encounter Care Teams Key Account Representative Relationship Specialty Start Date End Date Gianluca Price MD PCP - General 06/18/17 Ayden Corona DO [address] [facility] [address] [place] [address] Referring Physician Surgery 10/29/22 Roberto Medley MD [phone] [place] [address] Surgeon Colon and Rectal Surgery 11/23/22 documented as of this encounter
--- OUTSIDE RECORDS SUMMARY | 2024-10-05 02:51 | XMS_ITS | Encounter Summary ---
Author Organization [facility] Address [address] [place] [address] Phone Care Team Providers Care Skiver Operator Name Role Phone Gianluca Price MD Primary Care Provider Ayden Corona DO Unavailable [phone] Roberto Medley MD Unavailable [phone] Reason for Visit * Reason Onset Date Comments Patient issue/concern 03/07/2023 Encounter Details Date Type Department Care Team (Late st Contact Info) Description 03/07/2023 Telephone [facility] Department of Surgery, Section of Colon and Rectal Surgery [address] [facility] [address], [place] [address] Wilda Galarza, A Patient issue/concern Social History Tobacco Use Types Packs/Day Years [...] on file 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 They area is still open and draining and has no signs or symptoms of infection. I spoke with SURJIT Peña she statedto have the patient monitor the area and if he develops any s/s to call the office. Patient verbalized understanding and agreement with plan. Request pictures from patient: No Patient within 7 days of discharge from inpatient stay? No documented in this encounter Plan of Treatment Not on file documented as of this encounter Visit Diagnoses Not on filedocumented in this encounter Care Teams Skiver Operator Relationship Specialty Start Date End Date Gianluca Price MD PCP - General 06/18/17 Ayden Corona DO [address] [address] Referring Physician Surgery 10/29/22 Roberto Medley MD [phone] [place] [address] Surgeon Colon and Rectal Surgery 11/23/22 documented as of this encounter
--- OUTSIDE RECORDS SUMMARY | 2024-10-05 02:51 | XMS_ITS | Encounter Summary ---
Author Organization [facility] Address [address] [place] [address] Phone Care Team Providers Care Car Dryer Name Role Phone Gianluca Price MD Primary Care Provider Reason for Referral * Cardiology (Routine) - Closed Specialty Diagnoses / Procedures Referred By Contabelino t Referred To Contact Diagnoses Coronary artery disease involving nightmute coronary artery of nightmute heart without angina pectoris Procedures Transthoracic Echo (TTE) Complete W Doppler/CF Abigail Woodard MD [address] [facility] [address] [place] [address] Phone: tel: fax: [facility] (All Locations) Referral ID Status Reason Start Date Expiration Date Visits Re quested Visits Authorized [id number] Closed 06/21/2022 07/21/2023 1 1 Reason for Visit * Consultation (Routine) - Closed Specialty Diagnoses / Procedures Referred By Contabelino t Referred To Contact Cardiology Diagnoses Coronary artery disease of nightmute artery of nightmute heart with stable angina pectoris (HCC) Gianluca Price MD [address] [place] [address] Phone: tel: fax: [facility] (All Locations) Referral ID Status Reason Start Date Expiration Date V isits Requested Visits Authorized [id number] Closed Specialty Services Required 02/08/2022 08/07/2022 6 6 Encounter Details Date Type Department Care Team (Late st Contact Info) Description 06/21/2022 10:00 AM CDT Office Visit [facility] Cardiology [address] [place] [address] Abigail Woodard MD [address] [facility] [address] [place] [address] Coronary artery disease involving nightmute coronary artery of nightmute heart without angina pectoris (Primary Dx) Social History Tobacco Use Types [...] on file 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 Gender Identity Not on file Sexual Orientation Not on file Occupation Industry Job Start Date Job End Date Retired Not on file Not on file Not on file documented as of this encounter Last Filed Vital Signs Vital Sign Reading Time Taken Comments Blood Pressure 128/79 06/21/2022 10:12 AM CDT Pulse 99 06/21/2022 10:12 AM CDT Temperature 36.7 ??C (98.1 ??F) 06/21/2022 1 0:12 AM CDT Respiratory Rate - - Oxygen Saturation 98% 06/21/2022 10: 12 AM CDT Inhaled Oxygen Concentration - - Weight 157.3 kg (346 lb 12.8 oz) 2021 10:12 AM CDT Height 193 cm (6' 3.98 ) 06/21/2022 10: 12 AM CDT Body Mass Index 42.23 06/21/2022 10:12 AM CDT documented in this encounter Patient Instructions * Patient Instructions* Abigail Woodard MD - 06/21/2022 10:00 AM CDT Farxiga 10 mg a day Echo with doppler Rtc 4 M documented in this encounter Ordered Prescriptions Prescription Sig Dispense Quantity Refills Last Filled Start Date End Date dapagliflozin (FARXIGA) 10 mg tablet Take 1 tablet (10 mg total) by mouth daily 14 tablet 06/21/2022 4 dapagliflozin (FARXIGA) 10 mg tablet Take 1 tablet (10 mg total) by mouth daily 30 tablet 2 06/21/2022 2 dapagliflozin (FARXIGA) 10 mg tablet Take 1 tablet (10 mg total) by mouth daily 90 tablet 2 06/21/2022 2 nitroglycerin (NITROSTAT) 0.[address] 1 tablet (0.4 mg total) under the tongue every 5 (five) minutes as needed for chest pain (prn) 25 tablet 2 06/21/2022 4 dapagliflozin (FARXIGA) 10 mg tablet Take 1 tablet (10 mg total) by mouth daily 90 tablet 2 06/21/2022 2 documented in this encounter Progress Notes * Abigail Woodard MD - 06/21/2022 10:00 AM CDT 06/21/2022 Patient's Name: Du Anderson : 1955 [place]: 06/21/2022 PRINCIPAL AND SECONDARY DIAGNOSES: 1. Complex coronary [...] three times the reference value of 75. 10 . INTERVAL HISTORY: Du Anderson returns for follow-up. He had a stenting of his ostial LAD, ostial ramus, and ostial circumflex in the past. He had a PCI of RCA on 04/25/2022. He continues to do well. He returns for follow-up. His shortness of breath improved. No chest pain noted.. In fact chest pain was never was hismain symptoms. He denies any leg swelling.No history [...] mg tablet Take 300 mg by mouth daily apixaban (ELIQUIS) 5 mg tablet Take 1 tablet (5 mg total) by mouth 2 (two) times a day 60 tablet 3 aspirin 81 mg chewable tablet Take 1 tablet (81 mg total) by mouth daily 30 tablet 0 atorvastatin (LIPITOR) 80 mg tablet Take 1 tablet (80 mg total) by mouth daily 30 tablet 11 carvediloL (COREG) 6.25 mg tablet TAKE 1 TABLET BY MOUTH TWICE DAILY WITH MEALS 180 tablet 3 clopidogreL (PLAVIX) 75 mg tablet TAKE 1 TABLET BY MOUTH DAILY 90 tablet 3 empagliflozin (JARDIANCE) 10 mg tablet Take 1 tablet (10 mg total) by mouth daily 14 tablet 0 furosemide (LASIX) 80 mg tablet Take 1 tablet (80 mg total) by mouth daily 90 tablet 2 niacin 500 mg tablet Take 1 tablet (500 mg total) by mouth 2 (two) times a day with meals 180 tablet 3 potassium chloride ER 20 mEq CR tablet TAKE 1 TABLET BY MOUTH TWO TIMES DAILY 180 tablet 3 sacubitriL-valsartan (ENTRESTO) 24-26 mg tablet Take 1 tablet by mouth 2 (two) times a day 180 tablet 3 spironolactone (ALDACTONE) 25 mg tablet TAKE 1 TABLET BY MOUTH DAILY 90 tablet 3 No current facility-administered medications on file prior to visit. PHYSICAL EXAM: There were no vitals taken for this visit. GEN: pleasant in NAD; alert, comfortable HENT: NCAT, MMM, anicteric Neck: no trauma, no JVD CVS: RRR, S1S2, no rubs/murmurs/gallops PULM: non-labored, CTAB, good inspiratory effort ABD: soft, not tender to palpation EXT: equal radial pulses, no edema Neuro: motor and sensation grossly intact Skin: warm, dry, no cyanosis OBJECTIVE DATA: Lab Results Component Value Date GLUCOSE 168 04/25/2022 CALCIUM 8.6 04/25/2022 SODIUM 141 04/25/2022 POTASSIUM 3.4 04/25/2022 CO2 24 04/25/2022 CHLORIDE 107 04/25/2022 BUNSER 11 04/25/2022 CREATININE 0.85 04/25/2022 Lab Results Component Value Date NTPROBNP 577 (H) 03/15/2022 Lab Results Component Value Date WBC 7.0 04/25/2022 HGB 11.5 (L) 04/25/2022 HCT 37.5 (L) 04/25/2022 MCV 79.4 (L) 04/25/2022 LABPLAT 227 04/25/2022 Lab Results Component Value Date LDL 44 06/02/2019 HDL 41 07/29/2020 Cath / PCI 04/25/2022 Successful drug-eluting Synergy [...] recommended to start walking . 2. Atrial Fibrillation ; He is on [...] 92 bpm. Low voltage to body habitus. 9. Mild LV systolic dysfunction esequiel to ischemic cardiomyopathy or previous severe MR. : His recent echo showed only mild MR. LVEF 445. will d/c amlodipine,quinapril and HCTZ.. He is [...] see him back in six months. Sincerely, Abigail Woodard M.D., F.A.C.C. business support [facility]. [place] This note was written using a voice recognition system hardware device. Please note there may be variance in spelling, stephanie, and syntax because of the voice recognition system hardware. Therefore,not every sentence has been reviewed in its entirety. If there are any concerns about verbage above please contact me at [phone]. documented in this encounter Plan of Treatment [...] #: 0 Date of : 1955 (M) Community Artist: LUDIVINA Morrissey ??RDCS Referring Physician: ABIGAIL WOODARD MD Contrast Agent: 1.1 ml Optison Administered, (1.9 ml wasted). Contrast Administered by: Sydney Nunez RN Supervised/Interpreted by: Abigail Woodard MD Diagnosis: Location: [facility] Reason for test: CAD MV [...] 2=Hypo 3=Akinetic 4=Dyskin./Aneurysm 0=Not visualized) Parasternal Long [place]:MAS=2 BAS=2 MIL=2 ALICJA=2 Parasternal Short [place]:MAS=2 MIS=2 CA=2 MIL=2 MAL=2 MA=2 Apical 4 Chambers:=2 MIS=2 BIS=2 BAL=2 MAL=2 AL=2 AC=2 Apical 2 Chambers:AI=2 CA=2 BI=2 BA=2 MA=2 AA=2 AC=2 LV Global [...] MD By signing this report, the attending boston cutter certifies that he or she has personally supervised and interpreted the echocardiogram and has reviewed and or edited and agrees with the written comments contained within the report. Procedure Note Abigail Woodard MD - 07/20/2022 Patient name: Du Anderson Date of test: 07/20/2022 Type of test: TTE w/Doppler [facility] #: 0 Date of : 1955 (M) Community Artist: LUDIVINA Morrissey CS Referring Physician: ABIGAIL WOODARD MD Contrast Agent: 1.1 ml Optison Administered, (1.9 ml wasted). Contrast Administered by: Sydney Nunez, RN Supervised/Interpreted by: Abigail Woodard MD Diagnosis: Location: [facility] Reason for test: CAD MV [...] 2=Hypo 3=Akinetic 4=Dyskin./Aneurysm 0=Not visualized) Parasternal Long [place]:MAS=2 BAS=2 MIL=2 ALICJA=2 Parasternal Short [place]:MAS=2 MIS=2 CA=2 MIL=2 MAL=2 MA=2 Apical 4 Chambers:=2 MIS=2 BIS=2 BAL=2 MAL=2 AL=2 AC=2 Apical 2 Chambers:AI=2 CA=2 BI=2 BA=2 MA=2 AA=2 AC=2 LV Global [...] MD By signing this report, the attending boston cutter certifies that he or she has personally supervised and interpreted the echocardiogram and has reviewed and or edited and agrees with the written comments contained within the report. Result [facility] Abigail Woodard MD CV ECHO PROCEDURES Final Resul t documented in this encounter Visit Diagnoses Diagnosis Coronary artery disease involving nightmute coronary artery of nightmute heart without angina pectoris- Primary Coronary artery disease involving nightmute coronary artery of nightmute heart without angina pectoris documented in this encounter Discontinued Medications Medication Sig Discontinue Reason Start Date End Da te empagliflozin (JARDIANCE) 10 mg tabletIndications:type 2 diabetes mellitus Take 1 tablet (10 mg total) by mouth daily 04/19/2022 06/21/2022 aspirin 81 mg chewable tablet Take 1 tablet (81 mg total) by mouth daily 04/25/2022 06/21/2022 dapagliflozin (FARXIGA) 10 mg tablet Take 1 tablet (10 mg total) by mouth daily Reorder 06/21/2022 06/21/2022 dapagliflozin (FARXIGA) 10 mg tablet Take 1 tablet (10 mg total) by mouth daily Reorder 06/21/2022 06/21/2022 dapagliflozin (FARXIGA) 10 mg tablet Take 1 tablet (10 mg total) by mouth daily Reorder 06/21/2022 06/21/2022 documented as of this encounter Care Teams Car Dryer Relationship Specialty Start Date End Date Gianluca Price MD PCP - General 06/18/17 documented as of this encounter
--- OUTSIDE RECORDS SUMMARY | 2024-10-05 02:51 | XMS_ITS | Encounter Summary ---
Author Organization [facility] Address [address] [place] [address] Phone Care Team Providers Care Wagon Driller Name Role Phone Gianluca Price MD Primary Care Provider Ayden Corona DO Unavailable [phone] Roberto Medley MD Unavailable Reason for Visit * Reason Onset Date Comments Surgery Confirmation 02/20/2023 Encounter Details Date Type Department Care Team (Late st Contact Info) Description 02/20/2023 Telephone [facility] Department of Surgery, Section of Colon and Rectal Surgery [address] [facility] [address] [facility] [address], [place] [address] Radha Hernandez RMA Surgery Confirmation [...] on file 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 Prep: NPO after midnight Patient was reminded they need a cdl flatbed truck driver Confirmed arrival time of 5:15 am at [facility], report to Main Entrance. documented in this encounter Plan of Treatment Not on file documented as of this encounter Visit Diagnoses Not on filedocumented in this encounter Care Teams Wagon Driller Relationship Specialty Start Date End Date Gianluca Price MD PCP - General 06/18/17 Ayden Corona DO [address] [facility] [address] [place] [address] Referring Physician Surgery 10/29/22 Roberto Medley MD [phone] [place] [address] Surgeon Colon and Rectal Surgery 11/23/22 documented as of this encounter
--- OUTSIDE RECORDS SUMMARY | 2024-10-05 02:51 | XMS_ITS | Encounter Summary ---
Author Organization [facility] Healthcare Address [address] [place] [address] Care Team Providers Care Card Writer Hand Name Role Phone Gianluca Price MD Primary Care Provider Ayden Corona Ankit DO Unavailable [phone] Roberto Medley MD Unavailable [phone] Reason for Visit * Auth/Cert (Routine) Specialty Diagnoses / Procedures Referred By Contac t Referred To Contact Diagnoses Anal fistula Anal fistula [K60.3] Procedures DC SURG TX ANAL FISTULA INTERSPHINCTERIC LIGATION INTERSPHINCTERIC FISTULA TRACT Referral ID Status Reason Start Date Expiration Date Visits Re quested Visits Authorized [id number] 1 1 Encounter Details Date Type Department Care Team (Latest Contact Info) Description 02/21/2023 5:18 AM CDT - 02/21/2023 9:26 AM CDT Hospital Encounter [facility] Operating Room [address] [place] [address] Roberto Medley MD [address] [facility] [phone] [place] [address] Discharge Disposition: Discharge to home or self [...] on file 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 FAQs (frequently asked questions) [...] physical therapy, we are available to assist: [facility] STAR: [facility] [phone] [place] [phone] [facility] [phone] How are some things that you can [...] given by your doctor or other health certified social workers in health care. documented in this encounter Medications at Time of Discharge allopurinol (ZYLOPRIM) 300 mg tabletIndication s:prevention of acute gout attack Take 1 tablet (300 mg total) by mouth nightly 06/01/2018 cholecalciferol (VITAMIN D-3) 87183 unit capsuleIndicatio ns:supplement Take 1 capsule (10,000 Units total) by mouth construction director before breakfast multivitamin capsuleIndicatio ns:Vitamin Deficiency Prevention Take 1 capsule by mouth construction director before breakfast amoxicillin 500 mg capsule Take [...] Preoperative Evaluation Record Evaluation type/location: TPAP from [facility] Planned procedure site: [facility] OR Date: 02/05/23 NOTE: This note [...] type: permanent (AF episode >1yr). 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 Please call the [facility] chart room clinician ([phone]) with any questions or to discuss alternative management plans. Patient instructions were provided electronically sent via [employer]. Patient verbalized understanding of preoperative plan. Patient [...] ??? Hypertension ??? Coronary artery disease involving [place]vi coronary artery of chemehuevi heart without angina pectoris ??? Low back [...] Right 09/2021 ??? POSTERIOR FUSION LUMBAR SPINE 2013 L3-5 PSF ([place]) ??? TOTAL HIP ARTHROPLASTY [...] 1 tablet (80 mg total) by mouth construction director before breakfast carvediloL (COREG) 6.25 mg tablet 01/24/2023 12/24/22 -- Ari Bradley MD TAKE 1 TABLET BY MOUTH TWICE DAILY WITH MEALS Patient taking differently: Take 1 tablet (6.25 mg total) by mouth 2 (two) times a day with meals Notes: Requesting 1 year supply cholecalciferol (VITAMIN D-3) 40257 unit capsule 01/24/2023 -- -- Abran Canales MD clopidogreL (PLAVIX) 75 mg tablet 01/24/2023 07/29/22 -- Ari Bradley MD TAKE 1 TABLET BY MOUTH DAILY Patient taking differently: Take 1 tablet (75 mg total) by mouth construction director before breakfast Notes: Requesting 1 year supply dapagliflozin (FARXIGA) 10 mg tablet 01/24/2023 06/21/22 -- Ari Bradley MD Take 1 tablet (10 mg total) by mouth daily Patient taking differently: Take 1 tablet (10 mg total) by mouth construction director before breakfast Notes: [id number] 09/05/2024 furosemide (LASIX) 80 mg tablet 01/24/2023 12/24/22 -- Ari Bradley MD TAKE 1 TABLET BY MOUTH DAILY Patient taking differently: Take 1 tablet (80 mg total) by mouth construction director before breakfast Notes: Requesting 1 year supply multivitamin capsule 01/24/2023 -- -- Abran Canales MD niacin 500 mg tablet () 01/24/2023 [...] 6.25 mg tablet ??? cholecalciferol (VITAMIN D-3) 70284 unit capsule ??? clopidogreL (PLAVIX) 75 mg [...] mg, oral, Q6H PRN, 500 mg at 03/03/29 919 ??? diphenhydrAMINE (BENADRYL) injection 12.5 mg, 12.5 [...] internal opening was closed transanally with a [id number] Vicryl. We then placed a mushroom catheter [...] going to be admitted after surgery at [facility], COVID testing may be performed on the day of surgery, even if you are up to date on your COVID-19 vaccine. * If having surgery at [facility], you may want to bring a credit card if you want to use our Mobile Pharmacy for your discharge medications. Mobile pharmacy is not available at [facility], [facility], or the [facility]. Outpatient Surgery: * You must have a [...] Take morning of surgery cholecalciferol (VITAMIN D-3) 36340 unit capsule Don't take on day of [...] Planning Perioperative Nursing Note Telephone Preoperative Evaluation ([facility]) - TELEPHONE ONLY, NO PHYSICAL EXAM [...] 1 tablet (80 mg total) by mouth construction director before breakfast) 30 tablet 11 carvediloL (COREG) 6.25 mg tablet TAKE 1 TABLET BY MOUTH TWICE DAILY WITH MEALS (Patient taking differently: Take 1 tablet (6.25 mg total) by mouth 2 (two) times a day with meals) 200 tablet 2 cholecalciferol (VITAMIN D-3) 32773 unit capsule Take 1 capsule (10,000 Units total) by mouth earlymorning before breakfast clopidogreL (PLAVIX) 75 mg tablet TAKE 1 TABLET BY MOUTH DAILY (Patient taking differently: Take 1 tablet (75 mg total) by mouth construction director before breakfast) 90 tablet 3 dapagliflozin (FARXIGA) 10 mg tablet Take 1 tablet (10 mg total) by mouth daily (Patient taking differently: Take 1 tablet (10 mg total) by mouth construction director before breakfast) 14 tablet 0 furosemide (LASIX) 80 mg tablet TAKE 1 TABLET BY MOUTH DAILY (Patient taking differently: Take 1 tablet (80 mg total) by mouth construction director before breakfast) 100 tablet 2 multivitamin capsule Take 1 capsule by mouth construction director before breakfast niacin 500 mg tablet Take [...] a day 180 tablet 3 Implants Stent [employer] Chris Synergy Xd 4mm 48mm System Coronary Stent Everolimus [id number] - [id number] - [id number] - Implanted (Right) Coronary Artery Inventory item: [email or web address] CHRIS SYNERGY XD 4MM 48MM SYSTEM CORONARY STENT EVEROLIMUS [id number] Model/Cat number: [id number] Serial number: [id number] Supervisor Ski Production: [employer] Lot number: [id number] As of 04/25/2022 Status: Implanted SKIN Piercings Remaining: No Wound (LDAs) Type of Wound (LDA): (denies) SCREENINGS Dawson index score: 90 PATIENT CARE PLANNING Advance Directives (For Healthcare) Have you reviewed your Advance Directive and is it valid for this stay?: Yes Advance Directive: Not applicable, Patient does not have advance directive Communication/Pin Or Clip Fastener Needs Communication Needs: Glasses Assistive Devices/DME: Eyeglasses, CPAP/BiPAP, Cane, Motorized scooter Hearing - Right Ear: Functional Hearing - Left Ear: Functional Discharge Planning Type of Residence: Private residence Living Arrangements: Spouse/significant other Support Systems: Spouse/significant other Patient expects to be discharged to:: Private residence 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 You should leave your valuables and any jewelry at home. No metal or piercings are allowed in the operating room. You should bring your insurance card, a photo ID (example: Controls Engineer's License) and a method of payment for [...] Chart. If you are having surgery at [facility], please arrive on the day of surgery [...] Care by the followinglink: [email or web address] How To Prepare Your Skin [...] Remove nail coverings, artificial nails and nail citizen of [place]. Place clean linens on your bed the [...] questions, please call the CPAP Staff at [phone], Saturday-Saturday 8am-4:30pm. All patients should read the below section: All visitors/patients are being asked to wear a clean face mask when entering the hospital. COVID 19 Updates & Visitor Policy: Please access [email or web address] for the most updated information. Information on [facility]: Please view [email or web address] (Patient & Visitor Information) for additional details regarding Advanced Directive forms, AWARE, directions, parking information, lodging, Internet access, dining and more. Information on [facility] or [facility] ([facility]): Please view [email or web address] (Patient and Visitor Information) for parking/directions and more. For MyChart information, to activate account or password recovery, please go to [email or web address] or call [phone] (toll-free: [phone]). Information for Suicide Prevention: National Suicide Prevention Lifeline (6-155- 001-EPZT (7935)). Surgery Times: For patients having surgery @ [facility], [facility], [facility] or [facility] ([facility]), if your surgeon's office has not notified you of your surgery time by NOON THE BUSINESS DAY BEFORE your surgery, please call [phone] and ask for your surgeon's office Dr. [...] Given 02/21/2023 8:50 AM CDT 5 mg documented in this [...] min PRN, high blood pressure, Starting on Alina 02/21/23 at 0831, Phase I, Max cumulative [...] and follow with Oral meds., Starting on Alina 02/21/23 at 0831, For [...] with extremely severe pain., Starting on Alina 02/21/23 at 0831, Phase I, Use as [...] min PRN, high blood pressure, Starting on Alina 02/21/23 at 0831, For [...] Date acetaminophen (TYLENOL) tablet 500 mg 1 bacitracin-polymyxin B (POLY SPORIN) 500-10,000 unit/gram ointment tube 1 02/21/2023 BUPivacaine-EPINEPHrine (MAR SHANNA w/EPI) 0.25 %-1:200,000 injection 1 02/21/2023 diphenhydrAMINE (BENADRYL) 5 0 mg/mL injection 12.5 [...] chloride 0.9% flush 0.5-20 mL 1 02/04 sodium chloride 0.9% irrigation 1 Diet Count Last Ordered Date First Orde red Date ADULT DISCHARGE DIET 1 02/21/2023 Nursing Count Last Ordered Date First Orde red Date ACTIVITY 1 02/21/2023 DISCHARGE INSTRUCTIONS 3 02/21/2023 PATIENT MAY SHOWER 1 02/21/2023 WOUND CARE 2 02/21/2023 Discharge Count Last Ordered Date First Orde red Date DISCHARGE PATIENT 1 02/21/2023 documented in this encounter Care Teams Card Writer Hand Relationship Specialty Start Date End Date Gianluca Price MD PCP - General 06/18/17 Ayden Corona DO [address] [address] Referring Physician Surgery 10/29/22 Roberto Medley MD [address] [facility] [phone] [place] [address] Surgeon Colon and Rectal Surgery 11/23/22 documented as of this encounter
--- OUTSIDE RECORDS SUMMARY | 2024-10-05 02:51 | XMS_ITS | Encounter Summary ---
Author Organization [facility] Address [address] [place] [address] Phone Care Team Providers Care Drill Sharpener Operator Name Role Phone Gianluca Price MD Primary Care Provider Ayden Corona DO Unavailable [phone] Roberto Medley MD Unavailable Reason for Visit * Reason Onset Date Comments Test Results 07/23/2022 Echo Encounter Details Date Type Department Care Team (Late st Contact Info) Description 07/23/2022 Telephone [facility] Cardiology [address] 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 Called and spoke with pt making him aware of his echo results and that per Dr. Bradley, there won't beany changes to the plan of care at this time * Telephone Encounter - Sandra Pitts BS - 07/23/2022 1:45 PM CDT YAMILET PT CALLING TO DISCUSS HIS ECHO TEST RESULTS. documented in this encounter Plan of Treatment Not on file documented as of this encounter Visit Diagnoses Not on filedocumented in this encounter Care Teams Drill Sharpener Operator Relationship Specialty Start Date End Date Gianluca Price MD PCP - General 06/18/17 Ayden Corona DO [address] [id number] Referring Physician Surgery 10/29/22 Roberto Medley MD [address] [facility] [phone] [place] [address] Surgeon Colon and Rectal Surgery 11/23/22 documented as of this encounter
--- OUTSIDE RECORDS SUMMARY | 2024-10-05 02:51 | XMS_ITS | Encounter Summary ---
Author Organization [facility] Healthcare Address [address] [facility] [place] [address] Care Team Providers Care Reamer Hand Name Role Phone Gianluca Price MD Primary Care Provider Ayden Corona DO Unavailable [phone] Roberto Medley MD Unavailable [phone] Reason for Visit * Auth/Cert (Routine) Specialty Diagnoses / Procedures Referred By Contac t Referred To Contact Diagnoses Anal fistula Anal fistula [K60.3] Procedures [place] SURG TX ANAL FISTULA INTERSPHINCTERIC LIGATION INTERSPHINCTERIC FISTULA TRACT Referral ID Status Reason Start Date Expiration Date Visits Re quested Visits Authorized [id number] 1 1 Encounter Details Date Type Department Care Team (Late st Contact Info) Description 02/21/2023 7:12 AM CDT Anesthesia Event [facility] Operating Room [address] [place] [address] Cathy Seymour MD [address] [place] [address] Char Guzmán NP [address] [facility] [phone] [place] [address] Anesthesia Record Procedure Summary Procedure Name Responsible Anesthesiologist Anesthesia Start Time Anesthesia Stop Time LIGATION INTERSPHINCTERIC FISTULA TRACT (Anus) Cathy Seymour MD 02/21/23 0712 02/21/23 0836 Events Date Time Event Comment 02/21/2023 0532 In Preop 0700 0710 AN Equip Check 0712 An Start 0715 In Room 0720 An Start Data 0723 Start Supplemental O2 0723 An Induction The patient was reevaluated immediately before moderate or deep sedation use and before anesthesia induction. 0723 Anesthesia Ready 0729 Proc Start 0734 Incision Start 0829 an stop data 0829 Proc Fin 0830 Out of Room 0835 Handoff to RN I completed my handoff [...] disposition at the time of handoff: PACU 0836 An Stop Meds Name Total midazolam 2 mg/2 mL 2 mg fentaNYL PF 50 mcg Lidocaine IV 1% 20 mg propofol 60 mg propofol 622.97 mg ondansetron PF 4 mg dexmedeTOMIDine 32 mcg Lactated Ringer's (LR) infusion 700 mL * Agents Name O2 N2O Air * Blood No blood administrations on file. 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 Gender Identity Not on file Sexual Orientation Not on file Occupation Industry Job Start Date Job End Date Retired Not on file Not on file Not on file documented as of this encounter OR Notes * Anesthesia Postprocedure Evaluation - Cathy Seymour MD - 02/21/2023 9:06 AM CDT Patient: Du Anderson Procedure Summary Date: 02/21/23 Room / Location: [facility] OPERATING ROOM 02 / [facility] OPERATING ROOM Anesthesia Start: 711 Anesthesia Stop: 835 Procedure: LIGATION INTERSPHINCTERIC FISTULA TRACT (Anus) Diagnosis: Anal fistula (Anal fistula [K60.3]) Surgeons: Roberto Medley MD Responsible Provider: Cathy Seymour MD Anesthesia Type: MAC ASA Status: 3 Anesthesia Type: MAC Last vitals BP 117/77 Pulse 83 Temp 36.7 ??C (98.1 ??F) Resp 14 SpO2 97% Anesthesia Post Evaluation Patient location during evaluation: PACU Patient participation: complete - patient participated Level of consciousness: fully awake Pain score: 0 Pain management: adequate Airway patency: adequate Evidence of recall: no Cardiovascular status: acceptable Respiratory status: acceptable Hydration status: acceptable Pt is: normothermic Nausea/Vomiting status: none No notable events documented. * Anesthesia Preprocedure Evaluation - Cathy Seymour MD - 02/05/2023 2:44 PM CDT Images from the original note were not included. Center for Preoperative Assessment and Planning Preoperative Evaluation Record Evaluation type/location: TPAP from [facility] Planned procedure site: [facility] OR Date: 02/05/23 NOTE: This note represents a preoperative evaluation initiated via telephone interview. NO PHYSICALEXAM was performed at the time of initial assessment. A physical exam may be added to this note anddocumented below. Anesthesia Evaluation uD Anderson is a 67 y.o. male Procedure(s): [...] CAD + Drug-eluting stent(s) (04/2022: proximal mid RCA;2016: trifurcating left main circumflex, inferior ramus, superior [...] type: permanent (AF episode >1yr). 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 Patient instructions were provided electronically sent via [employer]. Patient verbalized understanding of preoperative plan. Patient [...] ??? Hypertension ??? Coronary artery disease involving [place] coronary artery of [place] heart without angina pectoris ??? Low back [...] 1 tablet (80 mg total) by mouth percher before breakfast carvediloL (COREG) 6.25 mg tablet 01/24/2023 12/24/22 -- Ari Bradley MD TAKE 1 TABLET BY MOUTH TWICE DAILY WITH MEALS Patient taking differently: Take 1 tablet (6.25 mg total) by mouth 2 (two) times a day with meals Notes: Requesting 1 year supply cholecalciferol (VITAMIN D-3) 77292 unit capsule 01/24/2023 -- -- Abran Canales MD clopidogreL (PLAVIX) 75 mg tablet 01/24/2023 07/29/22 -- Ari Bradley MD TAKE 1 TABLET BY MOUTH DAILY Patient taking differently: Take 1 tablet (75 mg total) by mouth percher before breakfast Notes: Requesting 1 year supply dapagliflozin (FARXIGA) 10 mg tablet 01/24/2023 06/21/22 -- Ari Bradley MD Take 1 tablet (10 mg total) by mouth daily Patient taking differently: Take 1 tablet (10 mg total) by mouth percher before breakfast Notes: [id number] 09/05/2024 furosemide (LASIX) 80 mg tablet 01/24/2023 12/24/22 -- Ari Bradley MD TAKE 1 TABLET BY MOUTH DAILY Patient taking differently: Take 1 tablet (80 mg total) by mouth percher before breakfast Notes: Requesting 1 year supply multivitamin capsule 01/24/2023 -- -- Provider, MD Abran niacin 500 mg tablet () 01/24/2023 10/05/19 [...] 6.25 mg tablet ??? cholecalciferol (VITAMIN D-3) 21210 unit capsule ??? clopidogreL (PLAVIX) 75 mg [...] last 30 days. Dawson index score: 90 DOS Physical Exam Medical history, medications, and allergies reviewed. Attestation: With today's edits, I endorse the findings of the procedural assessment dated: 02/05/2023. Airway Exam: Mallampati: III Cervical ROM: FROM TM distance: >4 Cardiovascular Exam: Rate: regular Rhythm: regular Negative for Murmur Pulmonary Exam: LCTA, bilat EENT Exam: trachea midline Dental Exam: Appears intact Current state: Patient's current state is cooperative. Anesthesia Plan ASA 3 My patient is approved for the Anesthesia Controlled Medication protocol when under care of a RV SERVICER Planned anesthesia: MAC Informed Consent: Discussed plan with RV SERVICER. Anesthesia plan and risks discussed with patient. Plan and Consent Comments: Ga if needed Consent and Attending signature: I and/or my [...] MAR Action Action Date Dose Rate Site dexmedeTOMIDine (PRECEDEX) injection intravenous, As needed, Starting on Alina 02/21/23 at 0727, Anesthesia Intra-op Given 02/21/2023 7:35 AM CDT 8 mcg Given 02/21/2023 7:27 AM CDT 8 mcg Given 02/21/2023 7:23 AM CDT 16 mcg fentaNYL (SUBLIMAZE) preservative free injection intravenous, As needed, Starting on Alina 02/21/23 at 0723, Anesthesia Intra-op Given 02/21/2023 7:27 AM CDT 25 mcg Given 02/21/2023 7:23 AM CDT 25 mcg Lactated Ringer's (LR) infusion 30 mL/hr, intravenous, Continuous, Starting on Alina 02/21/23 at 0615, For 4 hours, Pre-Op, Use a 500 ml bag for End Stage Renal Disease Patients. Discontinue if fluid still running once patient arrives to floor. New Bag 02/21/2023 7:12 AM CDT New Bag 02/21/2023 6:02 AM CDT 30 mL/hr 30 mL/hr lidocaine PF (XYLOCAINE) 10 mg/mL (1 %) preservative free injection intravenous, As needed, Starting on Alina 02/21/23 at 0723, Anesthesia Intra-op Given 02/21/2023 7:23 AM CDT 20 mg midazolam (VERSED) 1 mg/mL injection intravenous, As needed, Starting on Alina 02/21/23 at 0712, Anesthesia Intra-op Given 02/21/2023 7:12 AM CDT 2 mg ondansetron (ZOFRAN) injection intravenous, Administer over 2 Minutes, As needed, Starting on Alina 02/21/23 at 0736, Anesthesia Intra-op Given 02/21/2023 7:36 AM CDT 4 mg propofoL (DIPRIVAN) 10 mg/mL IV intravenous, As needed, Starting on Alina 02/21/23 at 0723, Anesthesia Intra-op Given 02/21/2023 7:23 AM CDT 60 mg propofoL (DIPRIVAN) 10 mg/mL IV intravenous, Continuous PRN, Starting on Alina 02/21/23 at 0723, Anesthesia Intra-op Rate/Dose Change 02/21/2023 7:39 AM CDT 60 mcg/kg/min 55.512 mL/hr New Bag 02/21/2023 7:23 AM CDT 80 mcg/kg/min 74.016 mL /hr documented in this encounter Care Teams Reamer Hand Relationship Specialty Start Date End Date Gianluca Price MD PCP - General 06/18/17 Ayden Corona DO [address] [facility] [address] [place] [address] Referring Physician Surgery 10/29/22 Roberto Medley MD [address] [facility] [phone] [place] [address] Surgeon Colon and Rectal Surgery 11/23/22 documented as of this encounter
--- OUTSIDE RECORDS SUMMARY | 2024-10-05 02:51 | XMS_ITS | Encounter Summary ---
Author Organization [facility] Address [address] [place] [address] Phone Care Team Providers Care Public Health Internship Name Role Phone Gianluca Price MD Primary Care Provider Ayden Corona DO Unavailable [phone] Roberto Medley MD Unavailable [phone] Reason for Visit * Reason Onset Date Comments Med Samples 01/21/2023 Entresto, Farxig a and Eliquis Encounter Details Date Type Department Care Team (Late st Contact Info) Description 01/21/2023 Telephone [facility] Cardiology [address] [facility] [address] Medicine 8th [place] [address] [place] [address] Ari Bradley MD [address] [place] [address] Med Samples (Entresto, Farxiga and Eliquis) Social History Tobacco Use Types [...] on file 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 NO FURTHER INFORMATION GIVEN Called and spoke with pt who mentioned that he has an OV on Saturday with Dr. Bradley and wanted samples of all 3 medications (Entresto, Farxiga and Eliquis). Samples set aside for the pt: Entresto 24/26 mg #: 56 LOT: [id number] Exp: 01/2025 Farxiga 10 mg #: 28 LOT: [id number] Exp: 07/06/2025 Eliquis 5 mg #: 56 LOT: [id number] Exp: 12/2024 * Telephone Encounter - Lori Hernandez - 01/21/2023 1:36 PM CDT [facility] PT CALLING IN REGARDS TO ENTRESTO, FARXIGA AND ELIQUIS. NO FURTHER INFORMATION GIVEN documented in this encounter Plan of Treatment Not on file documented as of this encounter Visit Diagnoses Not on filedocumented in this encounter Care Teams Public Health Internship Relationship Specialty Start Date End Date Gianluca Price MD PCP - General 06/18/17 Ayden Corona DO [address] [facility] [address] [place] [address] Referring Physician Surgery 10/29/22 Roberto Medley MD [id number] [place] [address] Surgeon Colon and Rectal Surgery 11/23/22 documented as of this encounter
--- OUTSIDE RECORDS SUMMARY | 2024-10-05 02:51 | XMS_ITS | Encounter Summary ---
Author Organization [facility] Address [address] [place] [address] Phone Care Team Providers Care Chief Investment Officer Name Role Phone Gianluca Price MD Primary Care Provider Ayden Corona DO Unavailable [phone] Roberto Medley MD Unavailable [phone] Reason for Visit * Reason Onset Date Comments Med Samples 04/04/2023 Entresto, Eliqui s and Farixga Encounter Details Date Type Department Care Team (Late st Contact Info) Description 04/04/2023 Telephone [facility] Cardiology [address] [facility] [address] Medicine 8th [place] [address] [place] [address] Ari Bradley MD [address] [place] [address] Med Samples (Entresto, Eliquis and Farixga) Social History Tobacco Use Types Packs/Day Years [...] on file 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 He can be reached at [phone]. Pt had sent nursing a portal message asking for samples of Eliquis, Farxiga and Entresto. Samples of Eliquis 5 mg set aside for pt to chart picker at [facility]: #: 56 LOT: [id number] Exp: 01/04/2025 Farxiga 10 mg #: 28 LOT: [id number] Exp: 11/06/2025 Entresto 24/26 mg #: 56 LOT: [id number] Exp: 06/06/2025 * Telephone Encounter - Shawanda Schofield - 04/04/2023 11:46 AM CDT Kirk Patient would like a return call to discuss medications. He can be reached at [phone]. documented in this encounter Plan of Treatment Not on file documented as of this encounter Visit Diagnoses Not on filedocumented in this encounter Care Teams Chief Investment Officer Relationship Specialty Start Date End Date Gianluca Price MD PCP - General 06/18/17 Ayden Corona DO [address] [facility] [address] [place] [address] Referring Physician Surgery 10/29/22 Roberto Medley MD [id number] [place] [address] Surgeon Colon and Rectal Surgery 11/23/22 documented as of this encounter
--- OUTSIDE RECORDS SUMMARY | 2024-10-05 02:51 | XMS_ITS | Encounter Summary ---
Author Organization [facility] Address [address] [place] [address] Phone Care Team Providers Care Automatic Profile Shaper Operator Name Role Phone Gianluca Price MD Primary Care Provider Ayden Corona DO Unavailable [phone] Roberto Medely MD Unavailable [phone] Reason for Visit * Consultation (Routine) - Closed Specialty Diagnoses / Procedures Referred By Contabelino t Referred To Contact Surgery / Colon and Rectal Surgery Diagnoses Anal fistula Ayden Corona DO [address] [facility] [address] [place] [address] Phone: tel: fax: Roberto Medley MD [address] [facility] [phone] [place] [address] Phone: tel: fax: Referral ID Status Reason Start Date Expiration Date V isits Requested Visits Authorized [id number] Closed Specialty Services Required 10/29/2022 11/28/2023 99 99 Encounter Details Date Type Department Care Team (Late st Contact Info) Description 04/05/2023 1:45 PM CDT Office Visit [facility] Surgery [address] [place] [address] Roberto Medley MD [address] [facility] [phone] [place] [address] Anal fistula (Primary Dx) Social History Tobacco [...] on file 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 Gender Identity Not on file Sexual Orientation Not on file Occupation Industry Job Start Date Job End Date Retired Not on file Not on file Not on file documented as of this encounter Last Filed Vital Signs Vital Sign Reading Time Taken Comments Blood Pressure 137/86 04/05/2023 1:35 PM CDT Pulse 92 04/05/2023 1:35 PM CDT Temperature 36.4 ??C (97.6 ??F) 04/05/2023 1:35 PM CD T Respiratory Rate - - Oxygen Saturation 98% 04/05/2023 1:35 PM CDT Inhaled Oxygen Concentration - - Weight 159.2 kg (351 lb) 04/05/2023 1:35 PM CDT Height 188 cm (6' 2 ) 04/05/2023 1:35 PM CDT Body Mass Index 45.07 04/05/2023 1:35 PM CDT documented in this encounter Progress Notes * Roberto Medley MD - 04/05/2023 1:45 PM CDT Colorectal Post-operative Visit Patient ID: Du Anderson is a 67 y.o. male who had a lift procedure a month ago. At the time of that procedure, he also had a very deep post anal space sinus cavity. We left a mushroom catheter in that sinus tract with plans to keep that catheter in for several months. The catheter fell out on postop day eight. He is still having drainage from there Physical Exam: On exam, he still has this enormous deep sinus cavity and the ischial fossa on the right side. The intersphincteric wound has some granulation tissue. Assessment and Plan: Mr. Anderson has a drain that fell out and he may have a fistula to his lift incision. We need to take him for exam under anesthesia and placed a drain in this more peripheral sinus. I will also want to get a look at his fistulotomy wound and make sure it is healed and if it has not, and he has an in tersphincteric fistula, we can treat that at the time. We will set him up for that sometime in the near future. 04/04/2023 Roberto Medley MD This note was created in part with the assistance of [employer] voice recognition software. Materials Supervisor variances and error may occur. Not every sentence has been reviewed in its entirety. For questions about the documentation above, please contact Dr. Medley. documented in this encounter Plan of Treatment Not on file documented as of this encounter Visit Diagnoses Diagnosis Anal fistula- Primary documented in this encounter Care Teams Automatic Profile Shaper Operator Relationship Specialty Start Date End Date Gianluca Price MD PCP - General 06/18/17 Ayden Corona DO [address] [facility] [address] [place] [address] Referring Physician Surgery 10/29/22 Roberto Medley MD [phone] [place] [address] Surgeon Colon and Rectal Surgery 11/23/22 documented as of this encounter
--- OUTSIDE RECORDS SUMMARY | 2024-10-05 02:52 | XMS_ITS | Encounter Summary ---
Author Organization [facility] Address [address] [place] [address] Phone Care Team Providers Care Chemistry Quality Control Analyst Name Role Phone Gianluca Price MD Primary Care Provider Ayden Corona DO Unavailable [phone] Roberto Medley MD Unavailable [phone] Encounter Details Date Type Department Care Team (Latest Contact Info) Description 03/22/2021 Orders Only [facility] Scanning, Provider Social History Tobacco Use Types Packs/Day Years Used Date Smoking Tobacco: Never Smokeless Tobacco: Never Alcohol Use Standard Drinks/Week Comments Yes 0 (1 standard drink = 0.6 oz pur e alcohol) Occasionally PHQ-2 Answer Date Recorded PHQ-2 Total Score (If total score is 3 or more points, staff should administer the PHQ-9) 2 06/07/2020 Sex and Gender Information Value Date Recorded Sex Assigned at Not on file 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 Gender Identity Not on file Sexual Orientation Not on file Occupation Industry Job Start Date Job End Date Retired Not on file Not on file Not on file documented as of this encounter Plan of Treatment Not on file documented as of this encounter Procedures Procedure Name Priority Date/Time Associated Diagnosis Comments SCAN - LABS 03/22/2021 documented in this encounter Results * SCAN - LABS (03/22/2021) us Provider Scanning Final Result documented in this encounter Visit Diagnoses Not on filedocumented in this encounter Care Teams Chemistry Quality Control Analyst Relationship Specialty Start Date End Date Gianluca Price MD PCP - General 06/18/17 Ayden Corona DO [address] [facility] [address] [place] [address] Referring Physician Surgery 10/29/22 Roberto Medley MD [phone] [place] [address] Surgeon Colon and Rectal Surgery 11/23/22 documented as of this encounter
--- OUTSIDE RECORDS SUMMARY | 2024-10-05 02:52 | XMS_ITS | Encounter Summary ---
Author Organization [facility] Address [address] [place] [address] Phone Care Team Providers Care Assistant Store Manager Trainee Name Role Phone Gianluca Price MD Primary Care Provider Reason for Referral * Cardiology (Routine) - Closed Specialty Diagnoses / Procedures Referred By Contac t Referred To Contact Diagnoses Coronary artery disease involving [place] coronary artery of [place] heart without angina pectoris Procedures Transthoracic Echo Complete W Doppler/CF Abigail Woodard MD [address] [facility] [address] [place] [address] Phone: tel: fax: [facility] (All Locations) Referral ID Status Reason Start Date Expiration Date Visits Re quested Visits Authorized [id number] Closed 02/13/2022 03/15/2023 1 1 Encounter Details Date Type Department Care Team (Late st Contact Info) Description 02/13/2022 10:45 AM CDT Office Visit [facility] Cardiology [address] [place] [address] Abigail Woodard MD [address] [facility] [address] [place], [place] [id number] Primary hypertension (Primary Dx); Coronary artery disease involving [place] coronary artery of [place] heart without angina pectoris Social History Tobacco [...] on file 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 Gender Identity Not on file Sexual Orientation Not on file Occupation Industry Job Start Date Job End Date Retired Not on file Not on file Not on file documented as of this encounter Last Filed Vital Signs Vital Sign Reading Time Taken Comments Blood Pressure 142/84 02/13/2022 10:47 AM CDT Pulse 92 02/13/2022 10:47 AM CDT Temperature 36.7 ??C (98 ??F) 02/13/2022 10: 47 AM CDT Respiratory Rate - - Oxygen Saturation 98% 02/13/2022 10: 47 AM CDT Inhaled Oxygen Concentration - - Weight 154.5 kg (340 lb 9.6 oz) 022 10:47 AM CDT Height 193 cm (6' 3.98 ) 02/13/2022 10: 47 AM CDT Body Mass Index 41.48 02/13/2022 10:47 AM CDT documented in this encounter Patient Instructions * Patient Instructions* Abigail Woodard MD - 02/13/2022 10:45 AM CDT entresto 24/26 mg BID jardiANCE 10 MG A DAY D/C AMLODIPINE,QUINAPRIL. hctz Bmp, bnp IN 1-2 WEEKS ECHO WITH DOPPLER OIN 2 -3 MONTH rTC 3M documented in this encounter Ordered Prescriptions Prescription Sig Dispense Quantity Refills Last Filled Start Date End Date sacubitriL-valsart an (ENTRESTO) 24-26 mg tabletIndications: chronic heart failure Take 1 tablet by mouth 2 (two) times a day 56 tablet 02/13/2022 03/15/2022 empagliflozin (JARDIANCE) 10 mg tabletIndications: type 2 diabetes mellitus Take 1 tablet (10 mg total) by mouth daily 90 tablet 2 02/13/2022 04/19/2022 sacubitriL-valsart an (ENTRESTO) 24-26 mg tabletIndications: chronic heart failure Take 1 tablet by mouth 2 (two) times a day 180 tablet 2 02/13/2022 02/13/2022 documented in this encounter Progress Notes * Abigail Woodard MD - 02/13/2022 10:45 AM CDT 02/13/2022 Patient's Name: Du Anderson : 1955 [place]: 02/13/2022 PRINCIPAL AND SECONDARY DIAGNOSES: 1. Complex coronary disease. PCI of trifurcating left main circumflex, inferior ramus, superior ramus, and ostial LAD in a staged manner with multiple CRSITHIAN stents in 2015. 2. CHF, echo 05/2021 LVEF 46%, Marked biatrial enlargement. 3. Moderate to severe MR, central MR (ERO: 0.32, RVol: 44) without systolic flow reversal in the pulmonary veins. Improved to mild MR by Echo 05/15/2021. 4. Atrial fibrillation. 5. Hypertension. 6. Morbid [...] the past. He continues to do well. He underwent knee replacement recently. Prior to knee replacement, He had a cardiac catheterization on 11/30/2019 which showed his prior stents were patent with mild to moderate restenosis. He returns for follow-up. He is recovering well. He denies any chest pain or shortness of breath. He denies any leg swelling.No history of COV-19 infection noted. He had LV dysfunction and moderate to severe central mitral regurgitation based on echocardiogram done in October 2019. We have not repeated any testing since then. He is still on Plavix for his stents and Eliquis for his atrial fibrillation. We have discontinued the aspirin. He does not describe any chest pain nor shortness of breath. Overall he is doing very well. REVIEW OF SYMPTOMS: All systems were reviewed and were negative except those stated above. MEDICATIONS: Current Outpatient Medications on File Prior to Visit Medication Sig Dispense Refill ??? allopurinol (ZYLOPRIM) 300 mg tablet Take 300 mg by mouth daily ??? amLODIPine (NORVASC) 5 mg tablet TAKE 1 TABLET BY MOUTH DAILY 90 tablet 3 ??? apixaban (ELIQUIS) 5 mg tablet Take 1 tablet (5 mg total) by mouth 2 (two) times a day 60 tablet 3 ??? atorvastatin (LIPITOR) 40 mg tablet TAKE 1 TABLET BY MOUTH DAILY 90 tablet 3 ??? carvediloL (COREG) 6.25 mg tablet TAKE 1 TABLET BY MOUTH TWICE DAILY WITH MEALS 180 tablet 2 ??? clopidogreL (PLAVIX) 75 mg tablet TAKE 1 TABLET BY MOUTH DAILY 90 tablet 3 ??? furosemide (LASIX) 20 mg tablet TAKE 2 TABLETS BY MOUTH TWICE DAILY 360 tablet 3 ??? hydroCHLOROthiazide (HYDRODIURIL) 25 mg tablet Take 25 mg by mouth daily ??? niacin 500 mg tablet Take 1 tablet (500 mg total) by mouth 2 (two) times a day with meals 180 tablet 3 ??? potassium chloride ER 20 mEq CR tablet TAKE 1 TABLET BY MOUTH TWO TIMES DAILY 180 tablet 3 ??? quinapril (ACCUPRIL) 40 mg tablet Take 40 mg by mouth daily ??? spironolactone (ALDACTONE) 25 mg tablet TAKE 1 [...] DATA: Lab Results Component Value Date GLUCOSE 96 05/15/2021 CALCIUM 10.2 05/15/2021 SODIUM 139 05/15/2021 POTASSIUM 3.9 05/15/2021 CO2 28 05/15/2021 CHLORIDE 100 05/15/2021 BUNSER 15 05/15/2021 CREATININE 0.93 05/15/2021 No results found for: NTPROBNP Lab Results Component Value Date WBC 8.1 05/15/2021 HGB 13.2 05/15/2021 HCT 40.8 05/15/2021 MCV 83.4 05/15/2021 LABPLAT 246 05/15/2021 Lab Results Component Value Date LDL 44 06/02/2019 HDL 41 07/29/2020 Echo 05/15/2021 SUMMARY: LA is moderately dilated. Normal RV cavity size. LV cavity size is normal. Normal LV wall thickness/mass.. Mild Global LV hypokinesis noted.LVEF 46%. Normal Inferior vena cava. Normal aorta. No AR seen, Mild MR, no , no MS, mild TV regurgitation, normal PV. Diastolic function: Normal Nuclear stress test 07/16/2021 [employer] Myocardial perfusion imaging is [...] ?? Clinically normal ECG. Electrocardiographically normal ECG. ASSESSMENT AND PLAN: Du Anderson is a very pleasant 61-year-old gentleman here for follow-up. 1. Coronary disease, CHF and moderate to severe MR in the past. His recent echo on 05/15/2021 showed only mild MR. No sign of fluid overload noted. He have LV dysfunction with LVEF 46%. . His last stress test is as above. He is still on Plavix for his stents and Eliquis for his atrial fibrillation. He is off of aspirin. 2. Hypertension, well controlled. 3. Dyslipidemia. He is on high-dose Lipitor and Niacin 1,000 mg BID. Tolerating well. 4. Obstructive sleep apnea. 5. Osteoarthritis. He has done well after B/l knee replacements. 6. Lifestyle. I advised daily exercise. 7. Hypokalemia. We will continue KCL to 40 mEq daily 8. Chronic atrial fibrillation :He is on Eliquis 5 mg BID. In the past he has been attempted to getcardioversion in 11/05/2019 , he had WILMER cardioversion lasted for few minutes only. 9. Mitral valve insufficency : He is well compensated. Onlt mild MR noted by Echo on 05/15/2021.will d/c amlodipine,quinapril and HCTZ. Will start entresto 24/26 mg BID. Will get BNP, BMP in 2 weeks. Echo with doppler in 2-3 months. Will add Jardiance 10 mg a day. RTc 3 m It was pleasure to participate in the care of Du Anderson. We will see him back in six months. Sincerely, Abigail Woodard M.D., F.A.C.C. operating engineer apprentice [facility] [employer] [facility]. [place] This note was written using a voice recognition system hardware device. Please note there may be variance in spelling, stephanie, and syntax because of the voice recognition system hardware. Therefore,not every sentence has been reviewed in its entirety. If there are any concerns about verbage aboveplease contact me at [phone]. documented in this encounter Plan of Treatment Not on file documented as of this encounter Results * TRANSTHORACIC ECHO (TTE) COMPLETE W DOPPLER/CF W CONTRAST (04/16/2022 12:34 PM CDT) LV EF 44 % CARDIOREPORT Anatomical Region Laterality Modality Ultrasound 04/16/2022 12:0 0 PM CDT Narrative 04/16/2022 10:27 PM CDT Patient name: Du Anderson Date of test: 04/16/2022 Type of test: TTE w/Doppler Hospital #: 0 Date of : 1955 (M) Blow Molding Machine Tender: Nahed Tillman RDCS Referring Physician: ABIGAIL WOODARD MD Contrast Agent: 2.3 ml Optison Administered, (0.7 ml wasted). Contrast Administered by: Sydney Nunez RN Supervised/Interpreted by: Abigail Woodard MD Diagnosis: [facility] Reason for test: CAD MV [...] Indexed: 1.1 cm/M2 <2.0 ? LA: ? 4.7 cm ?<4.0 ? RV: ? 4.1 cm ?<4.2 ? LV(ED): ? 5.6 cm ?<5.9 ? LV(ES): ? 4.1 cm ?<4.0 ?2D Vol. ?? Normal ?Indexed ?? Indexed Normal RA: ? 106.0 ml ?38.6 ml/M2 ?11-39 ? LA: ? 98.0 ml ? 35.6 ml/M2 ?16-34 ? RV: ? <12.7 ? LV(ED): ? 93.0 ml ?? 62-150 ?33.8 ml/M2 ?<75 ? LV(ES): ? 52.0 ml ?? 21-61 ? 18.9 ml/M2 ?<32 ?3D Vol. ? Indexed Normal LV(ED): ?<75 ? LV(ES): ?<32 ? LV EF: 44 % ?? (Normal: >=52%) ?? LV Septum: 1.0 cm ?(Normal: <1.0 cm) Wall Motion Scoring (1=Normal 2=Hypo 3=Akinetic 4=Dyskin./Aneurysm 0=Not visualized) Parasternal Long [place]:MAS=2 BAS=2 MIL=2 ALICJA=2 Parasternal Short [place]:MAS=2 MIS=2 RI=2 MIL=2 MAL=2 MA=2 Apical 4 Chambers:=2 MIS=2 BIS=2 BAL=2 MAL=2 AL=2 AC=2 Apical 2 Chambers:AI=2 RI=2 BI=2 BA=2 MA=2 AA=2 AC=2 LV Global Longitudinal Strain: RV Global Longitudinal Strain: LV Function: Mild Global reduction in LV Ejection Fraction (EF= 41-51%) RV Function: Normal Septal Motion: Normal Pericardial Effusion: none seen Atrial Septum: Normal DOPPLER/COLOR FLOW DOPPLER RESULTS: Diastolic Function: Normal Tricuspid Valve: mild TV regurgitation Pulmonic Valve: normal PV AV Regurgitation: No AR seen AV Stenosis: no AV Area: ??cm2 AV Pressure Gradient (mmHg): Mean: 0, Peak:0 MV Regurgitation: Mild MR MV Stenosis: no MS MV Area: ??cm2 MV Pressure Gradient (mmHg): Mean: 0 MV ERO: ??cm Regurg. Vol.: ??ml/beat Regurg. Frac.: ??% PA Pressure: 26+RA mmHg DOPPLER/COLOR FOLOW DOPPLER COMMENTS: No AR seen, Mild MR, no , no MS, mild TV regurgitation, normal PV. Diastolic function: Normal CONTRAST: 2.3 ml Optison Administered, (0.7 ml wasted). SUMMARY: LA is mildly dilated. Normal RV cavity size. LV cavity size is normal. Normal LV wall thickness/mass. mild global LV hypokinesis noted. LVEF 44%. ??Normal Inferior vena cava. Normal aorta. ??No AR seen, Mild MR, no , no MS, mild TV regurgitation, normal PV.Strain quality is inadequate for accurate reporting. Diastolic function: Normal Confirmed on ??04/16/2022 - 22:27:23 by Abigail Woodard MD By signing this report, the attending process server certifies that he or she has personally supervised and interpreted the echocardiogram and has reviewed and or edited and agrees with the written comments contained within the report. Procedure Note Abigail Woodard MD - 04/16/2022 Patient name: Du Anderson Date of test: 04/16/2022 Type of test: TTE w/Doppler Hospital #: 0 Date of : 1955 (M) B[employer] M[employer] Machine Tender: Nahed Tillman [facility] Referring Physician: ABIGAIL WOODARD MD Contrast Agent: 2.3 ml Optison Administered, (0.7 ml wasted). Contrast Administered by: Sydney Nunez RN Supervised/Interpreted by: Abigail Woodard MD Diagnosis: Location: [facility] Reason for test: CAD MV Structure: [...] <4.0 Ao Indexed: 1.1 cm/M2 <2.0 LA: 4.7 cm <4.0 RV: 4.1 cm <4.2 LV(ED): 5.6 cm <5.9 LV(ES): 4.1 cm <4.0 2D Vol. Normal Indexed Indexed Normal RA: 106.0 ml 38.6 ml/M2 11-39 LA: 98.0 ml 35.6 ml/M2 16-34 RV: <12.7 LV(ED): 93.0 ml 62-150 33.8 ml/M2 <75 LV(ES): 52.0 ml 21-61 18.9 ml/M2 <32 3D Vol. Indexed Normal LV(ED): <75 LV(ES): <32 LV EF: 44 % (Normal: >=52%) LV Septum: 1.0 cm (Normal: <1.0 cm) Wall Motion Scoring (1=Normal 2=Hypo 3=Akinetic 4=Dyskin./Aneurysm 0=Not visualized) Parasternal Long [place]:MAS=2 BAS=2 MIL=2 ALICJA=2 Parasternal Short [place]:MAS=2 MIS=2 RI=2 MIL=2 MAL=2 MA=2 Apical 4 Chambers:=2 MIS=2 BIS=2 BAL=2 MAL=2 AL=2 AC=2 Apical 2 Chambers:AI=2 RI=2 BI=2 BA=2 MA=2 AA=2 AC=2 LV Global Longitudinal Strain: RV Global Longitudinal Strain: LV Function: Mild Global reduction in LV Ejection Fraction (EF= 41-51%) RV Function: Normal Septal Motion: Normal Pericardial Effusion: none seen Atrial Septum: Normal DOPPLER/COLOR FLOW DOPPLER RESULTS: Diastolic Function: Normal Tricuspid Valve: mild TV regurgitation Pulmonic Valve: normal PV AV Regurgitation: No AR seen AV Stenosis: no AV Area: cm2 AV Pressure Gradient (mmHg): Mean: 0, Peak:0 MV Regurgitation: Mild MR MV Stenosis: no MS MV Area: cm2 MV Pressure Gradient (mmHg): Mean: 0 MV ERO: cm Regurg. Vol.: ml/beat Regurg. Frac.: % PA Pressure: 26+RA mmHg DOPPLER/COLOR FOLOW DOPPLER COMMENTS: No AR seen, Mild MR, no , no MS, mild TV regurgitation, normal PV. Diastolic function: Normal CONTRAST: 2.3 ml Optison Administered, (0.7 ml wasted). SUMMARY: LA is mildly dilated. Normal RV cavity size. LV cavity size is normal. Normal LV wall thickness/mass. mild global LV hypokinesis noted. LVEF 44%. Normal Inferior vena cava. Normal aorta. No AR seen, Mild MR, no , no MS, mild TV regurgitation, normal PV.Strain quality is inadequate for accurate reporting. Diastolic function: Normal Confirmed on 04/16/2022 - 22:27:23 by Abigail Woodard MD By signing this report, the attending process server certifies that he or she has personally supervised and interpreted the echocardiogram and has reviewed and or edited and agrees with the written comments contained within the report. Abigail Woodard MD CV ECHO PROCEDURES Final Resul t documented in this encounter Visit Diagnoses Diagnosis Primary hypertension- Primary Unspecified essential hypertension Coronary artery disease involving [place] coronary artery of [place] heart without angina pectoris Coronary artery disease of [place] artery of [place] heart with stable angina pectoris (HCC)- Primary Coronary artery disease involving [place] coronary artery of [place] heart without angina pectoris documented in this encounter Discontinued Medications Medication Sig Discontinue Reason Start Date End Da te amLODIPine (NORVASC) 5 mg tabletIndications:Hyperte nsion, unspecified type TAKE 1 TABLET BY MOUTH DAILY 09/11/2021 02/13/2022 quinapril (ACCUPRIL) 40 mg tablet Take 40 mg by mouth daily 05/23/2018 02/13/2022 hydroCHLOROthiazide (HYDRODIURIL) 25 mg tablet Take 25 mg by mouth daily 06/03/2018 02/13/2022 sacubitriL-valsartan (ENTRESTO) 24-26 mg tabletIndications:chronic heart failure Take 1 tablet by mouth 2 (two) times a day Reorder 02/13/2022 02/13/2022 documented as of this encounter Care Teams Assistant Store Manager Trainee Relationship Specialty Start Date End Date Gianluca Price MD PCP - General 06/18/17 documented as of this encounter
--- OUTSIDE RECORDS SUMMARY | 2024-10-05 02:52 | XMS_ITS | Encounter Summary ---
Author Organization [facility] Address [address] [facility] [address] [place] [address] Phone Care Team Providers Care Jig Operator Name Role Phone Gianluca Price MD Primary Care Provider Reason for Visit * Consultation (Routine) - Closed Specialty Diagnoses / Procedures Referred By Contac t Referred To Contact Cardiology Diagnoses Coronary artery disease of [place] artery of [place] heart with stable angina pectoris (HCC) Gianluca Price MD [address] [facility] [address] [place] [address] Phone: tel: fax: [facility] (All Locations) Referral ID Status Reason Start Date Expiration Date V isits Requested Visits Authorized [id number] Closed Specialty Services Required 02/08/2022 08/07/2022 6 6 Encounter Details Date Type Department Care Team (Late st Contact Info) Description 04/19/2022 12:45 PM CDT Office Visit [facility] Cardiology [address] [place] [address] Ari Bradley MD [address] [facility] [address] [place] [address] Shortness of breath (Primary Dx); Chest pain, unspecified type; Dyslipidemia; Coronary artery disease of [place] artery of [place] heart with stable angina pectoris (CMS/HCC) (HCC) Social History Tobacco Use Types [...] on file 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 Gender Identity Not on file Sexual Orientation Not on file Occupation Industry Job Start Date Job End Date Retired Not on file Not on file Not on file documented as of this encounter Last Filed Vital Signs Vital Sign Reading Time Taken Comments Blood Pressure 129/77 04/19/2022 1:22 PM CDT Pulse 92 04/19/2022 1:22 PM CDT Temperature 36.7 ??C (98 ??F) 04/19/2022 1:22 PM CDT Respiratory Rate - - Oxygen Saturation 98% 04/19/2022 1:22 PM CDT Inhaled Oxygen Concentration - - Weight 161.3 kg (355 lb 9.6 oz) 04/19/2022 1:22 PM CDT Height 190.5 cm (6' 3 ) 04/19/2022 1:22 PM CDT Body Mass Index 44.45 04/19/2022 1:22 PM CDT documented in this encounter Ordered Prescriptions Prescription Sig Dispense Quantity Refills Last Filled Start Date End Date empagliflozin (JARDIANCE) 10 mg tabletIndications: type 2 diabetes mellitus Take 1 tablet (10 mg total) by mouth daily 14 tablet 04/19/2022 06/21/2022 empagliflozin (JARDIANCE) 10 mg tabletIndications: type 2 diabetes mellitus Take 1 tablet (10 mg total) by mouth daily 90 tablet 1 04/19/2022 04/19/2022 furosemide (LASIX) 80 mg tablet Take 1 tablet (80 mg total) by mouth daily 90 tablet 2 04/19/2022 12/24/2022 atorvastatin (LIPITOR) 80 mg tablet Take 1 tablet (80 mg total) by mouth daily 30 tablet 11 04/19/2022 05/06/2023 documented in this encounter Progress Notes * Ari Bradley MD - 04/19/2022 12:45 PM CDT 04/19/2022 Patient's Name: Du Anderson : 1955 CAMIL[place]: 04/19/2022 PRINCIPAL AND SECONDARY DIAGNOSES: 1. Complex coronary disease. PCI of trifurcating left main circumflex, inferior ramus, superior ramus, and ostial LAD in a staged manner with multiple CRISTHIAN stents in 2015. 2. Ischemic Cardiomyopathy . Echo LVEF 44% 3. Moderate to severe MR, [...] past. He continues to do well. He had a cardiac catheterization on 11/30/2019 whichshowed his prior stents were patent with mild to moderate restenosis. He returns for follow-up. He is short of breath with mild activities,even in door activities. He occasionally get chest pain too.He states prior to stents in coronaries he had similar symptoms , chest pain was never his main symptoms. . He denies any leg swelling.No history of [...] Take 300 mg by mouth daily ??? apixaban (ELIQUIS) 5 mg tablet Take 1 tablet (5 mg total) by mouth 2 (two) times a day 60 tablet 3 ??? atorvastatin (LIPITOR) 40 mg tablet TAKE 1 TABLET BY MOUTH DAILY 90 tablet 3 ??? carvediloL (COREG) 6.25 mg tablet TAKE 1 TABLET BY MOUTH TWICE DAILY WITH MEALS 180 tablet 3 ??? clopidogreL (PLAVIX) 75 mg tablet TAKE 1 TABLET BY MOUTH DAILY 90 tablet 3 ??? empagliflozin (JARDIANCE) 10 mg tablet Take 1 tablet (10 mg total) by mouth daily 90 tablet 2 ??? furosemide (LASIX) 20 mg tablet TAKE 2 TABLETS BY MOUTH TWICE DAILY 360 tablet 3 ??? niacin 500 mg tablet Take 1 tablet (500 mg total) by mouth 2 (two) times a day with meals 180 tablet 3 ??? potassium chloride ER 20 mEq CR tablet TAKE 1 TABLET BY MOUTH TWO TIMES DAILY 180 tablet 3 ??? sacubitriL-valsartan (ENTRESTO) 24-26 mg tablet Take 1 tablet by mouth 2 (two) times a day 180 tablet 3 ??? spironolactone (ALDACTONE) 25 mg tablet TAKE 1 TABLET BY MOUTH DAILY 90 tablet 3 No current facility-administered medications on file prior to visit. PHYSICAL EXAM: Blood pressure 129/77, pulse 92, temperature 36.7 ??C (98 ??F), height 190.5 cm (6' 3 ), weight (!)161.3 kg (355 lb 9.6 oz), SpO2 98 %. GEN: pleasant in NAD; alert, comfortable HENT: NCAT, MMM, anicteric Neck: no trauma, no JVD CVS: RRR, S1S2, no rubs/murmurs/gallops PULM: non-labored, CTAB, good inspiratory effort ABD: soft, not tender to palpation EXT: equal radial pulses, no edema Neuro: motor and sensation grossly intact Skin: warm, dry, no cyanosis OBJECTIVE DATA: Lab Results Component Value Date GLUCOSE 102 (H) 03/15/2022 CALCIUM 9.4 03/15/2022 SODIUM 138 03/15/2022 POTASSIUM 4.1 03/15/2022 CO2 26 03/15/2022 CHLORIDE 105 03/15/2022 BUNSER 15 03/15/2022 CREATININE 0.91 03/15/2022 Lab Results Component Value Date NTPROBNP 577 (H) 03/15/2022 Lab Results Component Value Date WBC 8.1 05/15/2021 HGB 13.2 05/15/2021 HCT 40.8 05/15/2021 MCV 83.4 05/15/2021 LABPLAT 246 05/15/2021 Lab Results Component Value Date LDL 44 06/02/2019 HDL 41 07/29/2020 [employer] Myocardial perfusion imaging is abnormal. [...] disease, CHF and moderate to severe MR ; Recent Echo on 04/06/2022 as mentioned above didnot showed significant MR causing shortness of breath ,his LVEF is 44%. I am quite concerned that his is probably having stent restenosis. His symptoms are similar to it, his last stress test above was abnormal . He is still on Plavix for his stents and Eliquis for his atrial fibrillation. He is off of aspirin.Will recommend cardiac cath to see the patency of stents. Pt understand the risk and benefit of thecardiac cath procedure and willing to proceed with it. Pt understand further management will be based upon the outcome of cath. This will be done only at [facility]. 2. Hypertension, well controlled. 3. Dyslipidemia. He [...] WILMER cardioversion lasted for few minutes only. ECG today showedAfib with HR 92 bpm. Low voltage to body habitus. 9. Mild LV systolic dysfunction esequiel to ischemic cardiomyopathy or previous severe MR. : His recent echo showed only mild MR. LVEF 445. will d/c amlodipine,quinapril and HCTZ.. He is On entresto 24/26mg BID. Will get BNP, BMP in 2 weeks. Echo with doppler in 2-3 months. Will add Jardiance 10 mg a day. Increase lasix to 80 mg a day. BNp, CMP,CBc . Low salt diet. RTc 3 m It was pleasure to participate in the care of Du Anderson. We will see him back in six months. Sincerely, Ari Bradley M.D., F.A.C.C. comfort station attendant [facility]. [place] This note was written using a voice recognition system hardware device. Please note there may be variance in spelling, stephanie, and syntax because of the voice recognition system hardware. Therefore,not every sentence has been reviewed in its entirety. If there are any concerns about verbage aboveplease contact me at [phone]. documented in this encounter Plan of Treatment Not on file documented as of this encounter Procedures Procedure Name Priority Date/Time Associated Diagnosis Comments ECG 12-LEAD Routine 04/19/2022 Shortness of breath Chest pain, unspecified type documented in this encounter Results * Comprehensive metabolic panel (06/21/2022 10:57 AM CDT) Sodium 139 135 - 145 mmol/L [facility] Potassium, pl 4.0 3.3 - 4.9 mmol/L [facility] Chloride 104 97 - 110 mmol/L [facility] CO2 28 22 - 32 mmol/L [facility] Anion gap 7 2 - 15 mmol/L [facility] BUN 14 8 - 25 mg/dL [facility] Creatinine 0.88 0.80 - 1.30 mg/dL [facility] Glucose 98 70 - 199 mg/dL [facility] Comment: Interpretive Data Fasting glucose >/= 126 [...] 2017. Calcium 9.9 8.5 - 10.3 mg/dL [facility] Bilirubin, total 0.7 0.1 - 1.2 mg/dL [facility] Protein, pl 8.1 6.5 - 8.5 g/dL [facility] Albumin 4.7 3.5 - 5.0 g/dL [facility] Alk phos 102 40 - 130 Units/L [facility] ALT 22 7 - 55 Units/L [facility] AST 26 10 - 50 Units/L [facility] Blood 06/21/2022 10:5 7 AM CDT 06/21/2022 1:50 PM CDT us Ari Bradley MD LAB BLOOD ORDERABLES Final Res ult [facility] Department [place] [address] * Lipid panel (06/21/2022 10:57 AM CDT) Pathologist [facility] [place] Cholesterol 130 30 - 199 mg/dL [facility] Comment: Interpretive Data Ages < or = [...] revised on 2018. Triglycerides 145 <=149 mg/dL [facility] Comment: Interpretive Data Ages < or = [...] revised on 2018. HDL 42 >=40 mg/dL [facility] Comment: Interpretive Data Ages < or = [...] on 2018. LDL, calculated 59 <=129 mg/dL [facility] Comment: Interpretive Data Ages < or = [...] revised on 2018. Non-HDL Cholesterol 88 mg/dL [facility] Comment: Interpretive Data Ages < or = [...] last revised on 2018. Chol/HDL ratio 3 [facility] Blood 06/21/2022 10:5 7 AM CDT 06/21/2022 1:50 PM CDT us Ari Bradley MD LAB BLOOD ORDERABLES Final Res ult [facility] [place] [address] * (ABNORMAL) CBC with auto differential (04/19/2022 2:19 PM CDT) Pathologist [facility] [place] WBC 9.7 3.8 - 9.9 K/cumm [facility] Hgb 11.9(L) 13.0 - 17.5 g/dL [facility] Hct 39.6 38.9 - 50.3 % [facility] Plt 278 150 - 400 K/cumm [facility] MPV 11.8 9.1 - 12.3 fL [facility] RBC 4.89 4.30 - 5.80 M/cumm [facility] MCV 81.0(L) 81.3 - 96.4 fL [facility] MCH 24.3(L) 27.1 - 33.3 pg [facility] MCHC 30.1(L) 32.3 - 35.7 g/dL [facility] RDW CV 17.7(H) 11.1 - 14.9 % [facility] RDW SD 51.5(H) 35.7 - 48.1 fL [facility] NRBC abs 0.00 0.00 - 0.01 K/cumm [facility] Blood 04/19/2022 2:19 PM CDT 04/19/2022 3:38 PM CDT Ari Bradley MD LAB BLOOD ORDERABLES Final Res ult [facility] Department [place] [address] * Comprehensive metabolic panel (04/19/2022 2:19 PM CDT) Pathologist [facility] [place] Sodium 143 135 - 145 mmol/L [facility] Potassium, pl 4.1 3.3 - 4.9 mmol/L [facility] Chloride 106 97 - 110 mmol/L [facility] CO2 26 22 - 32 mmol/L [facility] Anion gap 11 2 - 15 mmol/L [facility] BUN 14 8 - 25 mg/dL [facility] Creatinine 0.98 0.80 - 1.30 mg/dL [facility] Glucose 96 70 - 199 mg/dL [facility] Comment: Interpretive Data Fasting glucose >/= 126 [...] interpretive data was last revised 2017. Calcium 9.8 8.5 - 10.3 mg/dL [facility] Bilirubin, total 0.5 0.1 - 1.2 mg/dL [facility] Protein, pl 7.7 6.5 - 8.5 g/dL [facility] Albumin 4.5 3.5 - 5.0 g/dL [facility] Alk phos 98 40 - 130 Units/L [facility] ALT 21 7 - 55 Units/L [facility] AST 25 10 - 50 Units/L [facility] Blood 04/19/2022 2:19 PM CDT 04/19/2022 3:38 PM CDT us Ari Bradley MD LAB BLOOD ORDERABLES Final Res ult [facility] Department of Laboratories [place], [place] [id number] * (ABNORMAL) Pro B-type natriuretic peptide (04/19/2022 2:19 PM CDT) NT-proBNP 766(H) <=300 pg/mL [facility] Comment: Interpretive Comments: A. Dyspnea in Acute Care Setting All Ages: ?< 300 pg/ml, acute heart failure unlikely. < 50 yrs: ?300 - 450 pg/ml, further investigation warranted. ? > 450 pg/ml, acute heart failure likely. 50 - 74 yrs: ? 300 - 900 pg/ml, further investigation warranted. ? > 900 pg/ml, acute heart failure likely . > or = 75 yrs: ? 450 - 1800 pg/ml, further investigation warranted. ? > 1800 pg/ml, acute heart failure likely. B. Non-acute Setting < 75 yrs ? < 125 pg/ml, rules out heart failure. ? > or = 125 pg/ml, further investigation warranted. > or = 75 yrs ?< 450 pg/ml, rules out heart failure. ? > or = 450 pg/ml, further investigation warranted. - Knowledge of each individual patient's NT-proBNP range may be more useful than using similar cut-points for every patient. Please note that marked elevations in NT-proBNP levels may be observed in state other than Left Ventricular Congestive Failure, including: acute coronary syndromes, right heart strain/failure (including pulmonary embolism and cor pulmonale), critical illness, renal failure, as well as advanced age. - References: 1. Bess FISHER et.al. Eur Heart J. 2006:27:330-337. 2. Pito RW, Ashley CARR. J. AM Scott Cardiol: Cardiovasc Imag. 2009;2: 216- 225. Interpretive Data Last Revised Date: 2018. Blood 04/19/2022 2:19 PM CDT 04/19/2022 3:38 PM CDT us Ari Bradley MD LAB BLOOD ORDERABLES Final Res ult [facility] Department [place] [address] * ECG 12 lead (04/19/2022) Ari Bradley MD ECG ORDERABLES Final Result documented in this encounter Visit Diagnoses Diagnosis Shortness of breath- Primary Chest pain, unspecified type Dyslipidemia Other and unspecified hyperlipidemia Coronary artery disease of [place] artery of [place] heart with stable angina pectoris (HCC) documented in this encounter Discontinued Medications Medication Sig Discontinue Reason Start Date End Da te atorvastatin (LIPITOR) 40 mg tablet TAKE 1 TABLET BY MOUTH DAILY 08/07/2021 04/19/2022 furosemide (LASIX) 20 mg tablet TAKE 2 TABLETS BY MOUTH TWICE DAILY 08/07/2021 04/19/2022 empagliflozin (JARDIANCE) 10 mg tabletIndications:type 2 diabetes mellitus Take 1 tablet (10 mg total) by mouth daily 02/13/2022 04/19/2022 empagliflozin (JARDIANCE) 10 mg tabletIndications:type 2 diabetes mellitus Take 1 tablet (10 mg total) by mouth daily Reorder 04/19/2022 04/19/2022 documented as of this encounter Orders Outpatient Referral Count Last Ordered Date Fir st Ordered Date AMB REFERRAL TO CARDIOLOGY 1 04/20/2022 documented in this encounter Care Teams Jig Operator Relationship Specialty Start Date End Date Gianluca Price MD PCP - General 06/18/17 documented as of this encounter
--- OUTSIDE RECORDS SUMMARY | 2024-10-05 02:52 | XMS_ITS | Encounter Summary ---
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 Gender Identity Not on file Sexual Orientation Not on file Occupation Industry Job Start Date Job End Date Retired Not on file Not on file Not on file documented as of this encounter Plan of Treatment Not on file documented as of this encounter Procedures Procedure Name Priority Date/Time Associated Diagnosis Comments EGFR Routine 04/19/2022 2:19 PM CDT Chest pain, unspecified type DIFFERENTIAL AUTO Routine 04/19/2022 2:1 9 PM CDT Chest pain, unspecified type PRO B-TYPE NATRIURETIC PEPTIDE Routine 04/19/2022 2:19 PM CDT Chest pain, unspecified type CBC WITH AUTO DIFFERENTIAL Routine 04/19/2022 2:19 PM CDT Chest pain, unspecified type COMPREHENSIVE METABOLIC PANEL Routine 04/19/2022 2:19 PM CDT Chest pain, unspecified type documented in this encounter Results * (ABNORMAL) eGFR (04/19/2022 2:19 PM CDT) [facility] eGFR 85(L) 90 - 130 mL/min/1. 73 m2 [facility] Comment: Interpretive Data Reference Interval Normal ?>/= [...] interpretive data was last reviewed 2021. Blood 04/19/2022 2:19 PM CDT 04/19/2022 3:50 PM CDT us Ari Bradley MD LAB BLOOD ORDERABLES Final Res ult [facility] Department [place] [address] * (ABNORMAL) Differential, auto (04/19/2022 2:19 PM CDT) Neutrophil abs 6.1 1.7 - 6.5 K/cumm [facility] Imm gran abs 0.0 0.0 - 0.1 K/cumm [facility] Lymphocyte abs 2.4 0.8 - 3.3 K/cumm [facility] Monocyte abs 0.9(H) 0.2 - 0.8 K/cumm [facility] Eosinophil abs 0.2 0.0 - 0.5 K/cumm [facility] Basophil abs 0.1 0.0 - 0.1 K/cumm [facility] Neutrophil pct 63.0 % [facility] Comment: Interpretive Data Percent cell count reference ranges are not reported, since discordance with absolute values may lead to misinterpretation of CBC data. Current Interpretive Data was last revised on 2018. Imm gran pct 0.4 % [facility] Comment: Interpretive Data Percent cell count reference ranges are not reported, since discordance with absolute values may lead to misinterpretation of CBC data. Current Interpretive Data was last revised on 2018. Lymphocyte pct 24.7 % [facility] Comment: Interpretive Data Percent cell count reference ranges are not reported, since discordance with absolute values may lead to misinterpretation of CBC data. Current Interpretive Data was last revised on 2018. Monocyte pct 9.0 % [facility] Comment: Interpretive Data Percent cell count reference ranges are not reported, since discordance with absolute values may lead to misinterpretation of CBC data. Current Interpretive Data was last revised on 2018. Eosinophil pct 2.1 % [facility] Comment: Interpretive Data Percent cell count reference ranges are not reported, since discordance with absolute values may lead to misinterpretation of CBC data. Current Interpretive Data was last revised on 2018. Basophil pct 0.8 % [facility] Comment: Interpretive Data Percent cell count reference ranges are not reported, since discordance with absolute values may lead to misinterpretation of CBC data. Current Interpretive Data was last revised on 2018. Blood 04/19/2022 2:19 PM CDT 04/19/2022 3:38 PM CDT Ari Bradley MD LAB BLOOD ORDERABLES Final Res ult Performing Organization Address [facility] Co de Phone Number [facility] [place] [address] * (ABNORMAL) CBC with auto differential (04/19/2022 2:19 PM CDT) WBC 9.7 3.8 - 9.9 K/cumm [facility] Hgb 11.9(L) 13.0 - 17.5 g/dL [facility] Hct 39.6 38.9 - 50.3 % [facility] Plt 278 150 - 400 K/cumm [facility] MPV 11.8 9.1 - 12.3 fL [facility] RBC 4.89 4.30 - 5.80 M/cumm [facility] MCV 81.0(L) 81.3 - 96.4 fL [facility] MCH 24.3(L) 27.1 - 33.3 pg [facility] MCHC 30.1(L) 32.3 - 35.7 g/dL [facility] RDW CV 17.7(H) 11.1 - 14.9 % [facility] RDW SD 51.5(H) 35.7 - 48.1 fL [facility] NRBC abs 0.00 0.00 - 0.01 K/cumm [facility] Blood 04/19/2022 2:19 PM CDT 04/19/2022 3:38 PM CDT Ari Bradley MD LAB BLOOD ORDERABLES Final Res ult Performing Organization Address [facility]/ZIP Co de Phone Number [facility] [place] [address] * Comprehensive metabolic panel (04/19/2022 2:19 PM CDT) Sodium 143 135 - 145 mmol/L [facility] Potassium, pl 4.1 3.3 - 4.9 mmol/L [facility] Chloride 106 97 - 110 mmol/L [facility] CO2 26 22 - 32 mmol/L [facility] Anion gap 11 2 - 15 mmol/L [facility] BUN 14 8 - 25 mg/dL [facility] Creatinine 0.98 0.80 - 1.30 mg/dL [facility] Glucose 96 70 - 199 mg/dL [facility] Comment: Interpretive Data Fasting glucose >/= 126 [...] 2017. Calcium 9.8 8.5 - 10.3 mg/dL [facility] Bilirubin, total 0.5 0.1 - 1.2 mg/dL [facility] Protein, pl 7.7 6.5 - 8.5 g/dL [facility] Albumin 4.5 3.5 - 5.0 g/dL [facility] Alk phos 98 40 - 130 Units/L [facility] ALT 21 7 - 55 Units/L [facility] AST 25 10 - 50 Units/L [facility] Blood 04/19/2022 2:19 PM CDT 04/19/2022 3:38 PM CDT us Ari Bradley MD LAB BLOOD ORDERABLES Final Res ult [facility] Department [place] [address] * (ABNORMAL) Pro B-type natriuretic peptide (04/19/2022 2:19 PM CDT) NT-proBNP 766(H) <=300 pg/mL [facility] Comment: Interpretive Comments: A. Dyspnea in Acute [...] et.al. Eur Heart J. 2006:27:330-337. 2. Pito SARMIENTO, Ashley CARR. J. AM Scott Cardiol: Cardiovasc Imag. 2009;2: 216- 225. Interpretive Data Last Revised Date: 2018. Blood 04/19/2022 2:19 PM CDT 04/19/2022 3:38 PM CDT us Ari Bradley MD LAB BLOOD ORDERABLES Final Res ult [facility] Department [place] [address] documented in this encounter Visit Diagnoses Diagnosis Chest pain, unspecified type documented in this encounter Care Teams Internet Manager Relationship Specialty Start Date End Date Gianluca Price MD PCP - General 06/18/17 documented as of this encounter
--- OUTSIDE RECORDS SUMMARY | 2024-10-05 02:52 | XMS_ITS | Encounter Summary ---
Author Organization [facility] Address [address] [place] [address] Phone Care Team Providers Care Livestock Laborer Name Role Phone Gianluca Price MD Primary Care Provider Reason for Visit * Reason Onset Date Comments Request For Order(s) 01/18/2021 CMP, CBC an d BNP Encounter Details Date Type Department Care Team (Late st Contact Info) Description 01/18/2021 Telephone [facility] Cardiology [address] [facility] Advanced Medicine 8th [place] [address] [place] [address] Ari Bradley MD [address] 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 Order is unclear LMOR for Kiersten letting her know that Dr. Bradley ordered a CMP, CBC and BNP for pt. * Telephone Encounter - Vickie Ann - 01/18/2021 3:08 PM CDT Kirk Do you want just a BNP? Order is unclear documented in this encounter Plan of Treatment Not on file documented as of this encounter Visit Diagnoses Not on filedocumented in this encounter Care Teams Livestock Laborer Relationship Specialty Start Date End Date Gianluca Price MD PCP - General 06/18/17 documented as of this encounter
--- OUTSIDE RECORDS SUMMARY | 2024-10-05 02:52 | XMS_ITS | Encounter Summary ---
Author Organization [facility] Address [address] [place] [address] Phone Care Team Providers Care Grain Manager Name Role Phone Gianluca Price MD Primary Care Provider Reason for Visit * Reason Onset Date Comments Procedure question/concern 07/11/2021 Larissa can stress test Encounter Details Date Type Department Care Team (Late st Contact Info) Description 07/11/2021 Telephone [facility] Cardiology [address] [facility] Advanced Medicine 8th [place] [address] [place] [address] Ari Bradley MD [address] [facility] [address] [place] [address] Procedure question/concern (Lexiscan stress test ) Social History Tobacco Use Types Packs/Day [...] on file 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 Services RepresentativeSigned 10:27 AM YAMILET ?? PT CALLING TO SEE IF HE NEEDS SOMEONE TO DRIVE HIM HOME FROM HIS NUC STRESS TEST TOMORROW. CAN LEAVE A MESSAGE ON PHONE OR MYCHART. Called and spoke with pt confirming that he can drive himself home tomorrow after his stress test. * Telephone Encounter - Sandra Pitts BS - 07/11/2021 10:27 AM CDT YAMILET PT CALLING TO SEE IF HE NEEDS SOMEONE TO DRIVE HIM HOME FROM HIS NUC STRESS TEST TOMORROW. CAN LEAVE A MESSAGE ON PHONE OR MYCHART. documented in this encounter Plan of Treatment Not on file documented as of this encounter Visit Diagnoses Not on filedocumented in this encounter Care Teams Grain Manager Relationship Specialty Start Date End Date Gianluca Price MD PCP - General 06/18/17 documented as of this encounter
--- OUTSIDE RECORDS SUMMARY | 2024-10-05 02:52 | XMS_ITS | Encounter Summary ---
Author Organization [facility] Address [address] [place] [address] Phone Care Team Providers Care Sheeter Waxer Operator Name Role Phone Gianluca Price MD Primary Care Provider Reason for Referral * Consultation (Routine) - Closed Specialty Diagnoses / Procedures Referred By Contabelino t Referred To Contact Cardiology Diagnoses Hypertension, unspecified type Abigail Woodard MD [address] [facility] [address] [place] [address] Phone: tel: fax: Abigail Woodard MD [address] [facility] [address] [place] [address] Phone: tel: fax: Referral ID Status Reason Start Date Expiration Date V isits Requested Visits Authorized [id number] Closed Specialty Services Required 01/11/2021 02/10/2022 1 1 Question Answer Please select the performing region: [facility] (All Locations) [[id number]] To provider: ABIGAIL WOODARD [[id number]] # of visits: 1 Reason for Visit * Cardiology (Routine) - Closed Specialty Diagnoses / Procedures Referred By Contac t Referred To Contact Diagnoses Triple vessel coronary artery disease Procedures Transthoracic Echo Complete W Doppler/CF Abigail Woodard MD [address] [facility] [address] [place] [address] Phone: tel: fax: [facility] (All Locations) Referral ID Status Reason Start Date Expiration Date Visits Re quested Visits Authorized [id number] Closed 01/10/2021 02/09/2022 1 1 Encounter Details Date Type Department Care Team (Latest Contact Info) Description 01/25/2021 12:30 PM CDT Ancillary Procedure [facility] Cardiology [address] [facility] [address] [place] [address] Hypertension, unspecified type (Primary Dx); Triple vessel coronary artery disease Social History Tobacco Use Types Packs/Day Years [...] on file 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 Gender Identity Not on file Sexual Orientation Not on file Occupation Industry Job Start Date Job End Date Retired Not on file Not on file Not on file documented as of this encounter Plan of Treatment Scheduled Referrals Name Type Priority Associated Diagnoses Orde r Schedule Ambulatory referral to Cardiology Outpatient Referral Routine Hypertension, unspecified type Expected: 01/25/2021 (Approximate), Expires: 01/11/2022 documented as of this encounter Procedures Procedure Name Priority Date/Time Associated Diagnosis Comments TRANSTHORACIC ECHO (TTE) COMPLETE W DOPPLER/CF W CONTRAST Routine 01/25/2021 1:33 PM CDT Triple vessel coronary artery disease documented in this encounter Results * TRANSTHORACIC ECHO (TTE) COMPLETE W DOPPLER/CF W CONTRAST (01/25/2021 1:33 PM CDT) Anatomical Region Laterality Modality Ultrasound 01/25/2021 12:3 0 PM CDT Narrative 01/26/2021 7:17 PM CDT Patient name: Du Anderson Date of test: 01/25/2021 Type of test: TTE w/Doppler Hospital #: 0 Date of : 1955 (M) Hydrator Operator: LUDIVINA Morrissey ??[facility] Referring Physician: ABIGAIL WOODARD MD Contrast Agent: 1.5 ml Optison Administered, (1.5 ml wasted). Contrast Administered by: Sydney Nunez, RN Supervised/Interpreted by: Abigail Woodard MD Diagnosis: [place] [facility] Reason for test: CAD, Atrial Fibrillation MV Structure: Normal, ?MV Motion: Normal, ?? [...] Variable ?2D Linear Normal ? Aotic Root: 3.4 cm ?<4.0 ? Ao Indexed: 1.2 cm/M2 <2.0 ? LA: ? 5.4 cm ?<4.0 ? RV: ? 4.5 cm ?<4.2 ? LV(ED): ? 5.0 cm ?<5.9 ? LV(ES): ? 3.7 cm ?<4.0 ?2D Vol. ?? Normal ?Indexed ?? Indexed Normal RA: ? 68.0 ml ? 24.6 ml/M2 ?11-39 ? LA: ? 136.0 ml ?49.2 ml/M2 ?16-34 ? RV: ? <12.7 ? LV(ED): ? 113.0 ml ??62-150 ?40.8 ml/M2 ?<75 ? LV(ES): ? 54.0 ml ?? 21-61 ? 19.5 ml/M2 ?<32 ?3D Vol. ? Indexed Normal LV(ED): ?<75 ? LV(ES): ?<32 ? LV EF: 52 % ?? (Normal: >=52%) ?? LV Septum: 1.2 cm ?(Normal: <1.0 cm) Wall Motion Scoring (1=Normal 2=Hypo 3=Akinetic 4=Dyskin./Aneurysm 0=Not visualized) Parasternal [place]:MAS=1 BAS=1 MIL=1 ALICJA=1 Parasternal [place]:MAS=1 MIS=1 OR=1 MIL=1 MAL=1 MA=1 Apical 4 Chambers:=1 MIS=1 BIS=1 BAL=1 MAL=1 AL=1 AC=1 Apical 2 Chambers:AI=1 OR=1 BI=1 BA=1 MA=1 AA=1 AC=1 LV Global Longitudinal Strain: RV Global Longitudinal Strain: LV Function: Normal LV Ejection Fraction, (EF=52-72%) RV Function: Normal Septal Motion: Normal Pericardial [...] regurgitation, normal PV. Diastolic function: indeterminate CONTRAST: 1.5 ml Optison Administered, (1.5 ml wasted). SUMMARY: LA is markedly dilated. Normal RV cavity size. LV cavity size is normal. Mild concentric LV hypertrophy. Normal Inferior vena cava. Normal aorta. ??No AR seen, Mild MR, no , no MS, mild TV regurgitation, normal PV.LVEF is5 2%.Strain quality is inadequate for accurate reporting. underlying rhythm is atrial fibrillation. Confirmed on ??01/26/2021 - 19:17:32 by Abigail Woodard MD By signing this report, the attending laundry machine mechanic certifies that he or she has personally supervised and interpreted the echocardiogram and has reviewed and or edited and agrees with the written comments contained within the report. Procedure Note Abigail Woodard MD - 01/26/2021 Patient name: Du Anderson Date of test: 01/25/2021 Type of test: TTE w/Doppler [facility] #: 0 Date of : 1955 (M) Hydrator Operator: LUDIVINA Morrissey [facility] Referring Physician: ABIGAIL WOODARD MD Contrast Agent: 1.5 ml Optison Administered, (1.5 ml wasted). Contrast Administered by: Sydney Nunez RN Supervised/Interpreted by: Abigail Woodard MD Diagnosis: Location: [facility] Reason for test: CAD, Atrial Fibrillation MV Structure: Normal, MV Motion: Normal, Mitral Annulus: Normal AV Structure: tricuspid and is Normal, AV Motion: Normal Aotic root: Normal, TM: Normal, PV: Normal Valvular Vegetations: none seen, Mass/Thrombi: none seen RA: Normal Measurements: M-Mode Normal Aotic Root: <3.8 LA: <4.0 RV: <2.8 LV(ED): <5.7 LV(ES): Variable 2D Linear Normal Aotic Root: 3.4 cm <4.0 Ao Indexed: 1.2 cm/M2 <2.0 LA: 5.4 cm <4.0 RV: 4.5 cm <4.2 LV(ED): 5.0 cm <5.9 LV(ES): 3.7 cm <4.0 2D Vol. Normal Indexed Indexed Normal RA: 68.0 ml 24.6 ml/M2 11-39 LA: 136.0 ml 49.2 ml/M2 16-34 RV: <12.7 LV(ED): 113.0 ml 62-150 40.8 ml/M2 <75 LV(ES): 54.0 ml 21-61 19.5 ml/M2 <32 3D Vol. Indexed Normal LV(ED): <75 LV(ES): <32 LV EF: 52 % (Normal: >=52%) LV Septum: 1.2 cm (Normal: <1.0 cm) Wall Motion Scoring (1=Normal 2=Hypo 3=Akinetic 4=Dyskin./Aneurysm 0=Not visualized) Parasternal [place]:MAS=1 BAS=1 MIL=1 ALICJA=1 Parasternal [place]:MAS=1 MIS=1 OR=1 MIL=1 MAL=1 MA=1 Apical 4 Chambers:=1 MIS=1 BIS=1 BAL=1 MAL=1 AL=1 AC=1 Apical 2 Chambers:AI=1 OR=1 BI=1 BA=1 MA=1 AA=1 AC=1 LV Global Longitudinal Strain: RV Global Longitudinal Strain: LV Function: Normal LV Ejection Fraction, (EF=52-72%) RV Function: Normal Septal Motion: Normal Pericardial [...] regurgitation, normal PV. Diastolic function: indeterminate CONTRAST: 1.5 ml Optison Administered, (1.5 ml wasted). SUMMARY: LA is markedly dilated. Normal RV cavity size. LV cavity size is normal. Mild concentric LV hypertrophy. Normal Inferior vena cava. Normal aorta. No AR seen, Mild MR, no , no MS, mild TV regurgitation, normal PV.LVEF is5 2%.Strain quality is inadequate for accurate reporting. underlying rhythm is atrial fibrillation. Confirmed on 01/26/2021 - 19:17:32 by Abigail Woodard MD By signing this report, the attending laundry machine mechanic certifies that he or she has personally supervised and interpreted the echocardiogram and has reviewed and or edited and agrees with the written comments contained within the report. us Abigail Woodard MD CV ECHO PROCEDURES Final Resul t documented in this encounter Visit Diagnoses Diagnosis Hypertension, unspecified type- Primary Triple vessel coronary artery disease Coronary atherosclerosis of unspecified type of vessel, [place] or graft documented in this encounter Administered Medications Inactive Administered Medications - up to 3 most recent administrations Medication Order MAR Action Action Date Dose Rate Site perflutren protein-a (OPTISON) 3 mL in sodium chloride 0.9% 8 mL syringe 1-8 mL, intravenous, Once in imaging, contrast, Starting on Sat01/25/21 at 1237, For 1 dose, Intra-Procedure (CV) Given 01/25/2021 1:20 PM CDT 4 mL documented in this encounter Orders Medications Ordered That Laith ht Not Have Been Administered Count Last Ordered Date First Ordered Date perflutren protein-a (OPTISO N) 3 mL in sodium chloride 0.9% 8 mL syringe 1 01/25/2021 documented in this encounter Care Teams Sheeter Waxer Operator Relationship Specialty Start Date End Date Gianluca Price MD PCP - General 06/18/17 documented as of this encounter
--- OUTSIDE RECORDS SUMMARY | 2024-10-05 02:52 | XMS_ITS | Encounter Summary ---
Author Organization [facility] Address [address] [place] [address] Phone Care Team Providers Care Nursery Teacher Name Role Phone Gianluca Price MD Primary Care Provider Reason for Referral * Consultation (Routine) - Closed Specialty Diagnoses / Procedures Referred By Contac t Referred To Contact Cardiology Diagnoses Coronary artery disease of [place] artery of [place] heart with stable angina pectoris (HCC) Gianluca Price MD [address] [facility] [address] [place] [address] Phone: tel: fax: [facility] (All Locations) Referral ID Status Reason Start Date Expiration Date V isits Requested Visits Authorized [id number] Closed Specialty Services Required 02/08/2022 08/07/2022 6 6 Question Answer Please select the performing region: [facility] (All Locations) [167] # of visits: 1 Reason for Visit * Cardiology (Routine) - Closed Specialty Diagnoses / Procedures Referred By Contac t Referred To Contact Diagnoses Coronary artery disease involving [place] coronary artery of [place] heart without angina pectoris Procedures Transthoracic Echo Complete W Doppler/CF Abigail Woodard MD [address] [facility] [address] [place] [address] Phone: tel: fax: [facility] (All Locations) Referral ID Status Reason Start Date Expiration Date Visits Re quested Visits Authorized [id number] Closed 02/13/2022 03/15/2023 1 1 Encounter Details Date Type Department Care Team (Latest Contact Info) Description 04/16/2022 12:00 PM CDT Ancillary Procedure [facility] Cardiology [address] [facility] [address] [place] [address] Coronary artery disease of [place] artery of [place] heart with stable angina pectoris (CMS/HCC) (HCC) (Primary Dx); Coronary artery disease involving [place] coronary artery of [place] heart without angina pectoris Social History Tobacco [...] on file 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 Gender Identity Not on file Sexual Orientation Not on file Occupation Industry Job Start Date Job End Date Retired Not on file Not on file Not on file documented as of this encounter Plan of Treatment Scheduled Referrals Name Type Priority Associated Diagnoses Order Schedule Ambulatory referral to Cardiology Outpatient Referral Routine Coronary artery disease of [place] artery of [place] heart with stable angina pectoris (CMS/HCC) (HCC) Expected: 04/16/2022 (Approximate), Expires: 04/02/2023 documented as of this encounter Procedures Procedure Name Priority Date/Time Associated Diagnosis Comments TRANSTHORACIC ECHO (TTE) COMPLETE W DOPPLER/CF W CONTRAST Routine 04/16/2022 12:34 PM CDT Coronary artery disease involving [place] coronary artery of [place] heart without angina pectoris documented in this encounter Results * TRANSTHORACIC ECHO (TTE) COMPLETE W DOPPLER/CF W CONTRAST (04/16/2022 12:34 PM CDT) LV EF 44 % CARDIOREPORT Anatomical Region Laterality Modality Ultrasound 04/16/2022 12:0 0 PM CDT Narrative 04/16/2022 10:27 PM CDT Patient name: Du Anderson Date of test: 04/16/2022 Type of test: TTE w/Doppler [facility] #: 0 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 Contrast Administered by: Sydney Nunez RN Supervised/Interpreted by: Abigail Woodard MD Diagnosis: Location: [facility] Reason for test: CAD MV Structure: [...] 2=Hypo 3=Akinetic 4=Dyskin./Aneurysm 0=Not visualized) Parasternal Long [place]:MAS=2 BAS=2 MIL=2 ALICJA=2 Parasternal Short [place]:MAS=2 MIS=2 AK=2 MIL=2 MAL=2 MA=2 Apical 4 Chambers:=2 MIS=2 BIS=2 BAL=2 MAL=2 AL=2 AC=2 Apical 2 Chambers:AI=2 AK=2 BI=2 BA=2 MA=2 AA=2 AC=2 LV Global [...] MD By signing this report, the attending staff radiographer certifies that he or she has personally supervised and interpreted the echocardiogram and has reviewed and or edited and agrees with the written comments contained within the report. 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 Contrast Administered by: Sydney Nunez RN Supervised/Interpreted by: Abigail Woodard MD Diagnosis: Location: [facility] Reason for test: CAD MV Structure: [...] 2=Hypo 3=Akinetic 4=Dyskin./Aneurysm 0=Not visualized) Parasternal [place]:MAS=2 BAS=2 MIL=2 ALICJA=2 Parasternal [place]:MAS=2 MIS=2 AK=2 MIL=2 MAL=2 MA=2 Apical 4 Chambers:=2 MIS=2 BIS=2 BAL=2 MAL=2 AL=2 AC=2 Apical 2 Chambers:AI=2 AK=2 BI=2 BA=2 MA=2 AA=2 AC=2 LV Global [...] MD By signing this report, the attending staff radiographer certifies that he or she has personally supervised and interpreted the echocardiogram and has reviewed and or edited and agrees with the written comments contained within the report. us Abigail Woodard MD CV ECHO PROCEDURES Final Resul t documented in this encounter Visit Diagnoses Diagnosis Coronary artery disease of [place] artery of [place] heart with stable angina pectoris (HCC)- Primary Coronary artery disease involving [place] coronary artery of [place] heart without angina pectoris documented in this encounter Administered Medications Inactive Administered Medications - up to 3 most recent administrations Medication Order MAR Action Action Date Dose Rate Site perflutren protein-a (OPTISON) 3 mL in sodium chloride 0.9% 8 mL syringe 1-8 mL, intravenous, Once in imaging, contrast, Starting on Sat04/16/22 at 1228, For 1 dose, Intra-Procedure (CV) Contrast Given 04/16/2022 12:28 PM CDT 6 mL documented in this encounter Orders Medications Ordered That Laith ht Not Have Been Administered Count Last Ordered Date First Ordered Date perflutren protein-a (OPTISO N) 3 mL in sodium chloride 0.9% 8 mL syringe 1 04/16/2022 documented in this encounter Care Teams Nursery Teacher Relationship Specialty Start Date End Date Gianluca Price MD PCP - General 06/18/17 documented as of this encounter
--- OUTSIDE RECORDS SUMMARY | 2024-10-05 02:52 | XMS_ITS | Encounter Summary ---
Author Organization [facility] Healthcare Address [address] [place] [address] Care Team Providers Care Gate Technician Name Role Phone Gianluca Price MD Primary Care Provider Encounter Details Date Type Department Care Team (Late st Contact Info) Description 05/15/2021 1:05 PM CDT Lab [facility] Advanced Medicine [facility] [address] [place], [place] [id number] Ari Bradley MD [address] [place], [place] [id number] Hypertension, unspecified type Discharge Disposition: Discharge to home or self [...] on file 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 Gender Identity Not on file Sexual Orientation Not on file Occupation Industry Job Start Date Job End Date Retired Not on file Not on file Not on file documented as of this encounter Discharge Disposition Disposition Code Departure Means Destination Discharge to home or self care documented in this encounter Plan of Treatment Not on file documented as of this encounter Procedures Procedure Name Priority Date/Time Associated Diagnosis Comments EGFR Routine 05/15/2021 1:02 PM CDT Hypertension, unspecified type DIFFERENTIAL AUTO Routine 05/15/2021 1:0 2 PM CDT Hypertension, unspecified type PRO B-TYPE NATRIURETIC PEPTIDE Routine 05/15/2021 1:02 PM CDT Hypertension, unspecified type CBC WITH AUTO DIFFERENTIAL Routine 05/15/2021 1:02 PM CDT Hypertension, unspecified type BASIC METABOLIC PANEL Routine 05/15/2021 1:02 PM CDT Hypertension, unspecified type documented in this encounter Results * (ABNORMAL) eGFR (05/15/2021 1:02 PM CDT) [facility] eGFR 86(L) 90 - 130 mL/min/1.7 3 m2 CYNTHIA RICE Comment: Interpretive Data Reference Interval Normal ?>/= 90 mL/min/1.73m2 Mildly decreased* ? 60 - 89 mL/min/1.73m2 Mildly to moderately decreased ?45 - 59 mL/min/1.73m2 Moderately to severely decreased ??30 - 44 mL/min/1.73m2 Severely decreased ?15 - 29 mL/min/1.73m2 Kidney Failure ?< 15 ??mL/min/1.73m2 *Relative to young adult level Estimated glomerular filtration rate is determined by the CKD-EPI equation recommended by the National Kidney Foundation (KDIGO 2012 Clinical Practice Guideline for the Evaluation and Management of Chronic Kidney Disease. Kidney Intnl Suppl Oct 2012;3:1). The CKD-EPI equation should not be used for patients with unstable renal function and has not been validated in children and those over 70. Current interpretive data was last reviewed 2020 Blood specimen (specimen) 05/15/2021 1:02 PM CDT 05/15/2021 3:32 PM CDT us Ari Bradley MD LAB BLOOD ORDERABLES Final Res ult [facility] [place] [address] * (ABNORMAL) Differential, auto (05/15/2021 1:02 PM CDT) Neutrophil abs 5.0 1.7 - 6.5 K/cumm [facility] Imm gran abs 0.0 0.0 - 0.1 K/cumm [facility] Lymphocyte abs 1.9 0.8 - 3.3 K/cumm [facility] Monocyte abs 0.9(H) 0.2 - 0.8 K/cumm [facility] Eosinophil abs 0.1 0.0 - 0.5 K/cumm [facility] Basophil abs 0.1 0.0 - 0.1 K/cumm [facility] Neutrophil pct 61.8 % [facility] Comment: Interpretive Data Percent cell count reference ranges are not reported, since discordance with absolute values may lead to misinterpretation of CBC data. Current Interpretive Data was last revised on 2018. Imm gran pct 0.5 % [facility] Comment: Interpretive Data Percent cell count reference ranges are not reported, since discordance with absolute values may lead to misinterpretation of CBC data. Current Interpretive Data was last revised on 2018. Lymphocyte pct 23.7 % [facility] Comment: Interpretive Data Percent cell count reference ranges are not reported, since discordance with absolute values may lead to misinterpretation of CBC data. Current Interpretive Data was last revised on 2018. Monocyte pct 11.6 % [facility] Comment: Interpretive Data Percent cell count reference ranges are not reported, since discordance with absolute values may lead to misinterpretation of CBC data. Current Interpretive Data was last revised on 2018. Eosinophil pct 1.5 % [facility] Comment: Interpretive Data Percent cell count reference ranges are not reported, since discordance with absolute values may lead to misinterpretation of CBC data. Current Interpretive Data was last revised on 2018. Basophil pct 0.9 % CYNTHIA RICE Comment: Interpretive Data Percent cell count reference ranges are not reported, since discordance with absolute values may lead to misinterpretation of CBC data. Current Interpretive Data was last revised on 2018. Blood specimen (specimen) 05/15/2021 1:02 PM CDT 05/15/2021 3:29 PM CDT us Air Bradley MD LAB BLOOD ORDERABLES Final Res ult [facility] [place] [address] * (ABNORMAL) Pro B-type natriuretic peptide (05/15/2021 1:02 PM CDT) NT-proBNP 743(H) <=300 pg/mL CYNTHIA KRAMER Comment: Interpretive Comments: [...] Interpretive Data Last Revised Date: 2018. Blood specimen (specimen) 05/15/2021 1:02 PM CDT 05/15/2021 3:29 PM CDT us Ari Bradley MD LAB BLOOD ORDERABLES Final Res ult [facility] [place] [address] * Basic metabolic panel (05/15/2021 1:02 PM CDT) Sodium 139 135 - 145 mmol/L [facility] Potassium, pl 3.9 3.3 - 4.9 mmol/L [facility] Chloride 100 97 - 110 mmol/L [facility] CO2 28 22 - 32 mmol/L [facility] Anion gap 11 2 - 15 mmol/L [facility] BUN 15 8 - 25 mg/dL [facility] Creatinine 0.93 0.80 - 1.30 mg/dL [facility] Glucose 96 70 - 199 mg/dL [facility] Comment: Interpretive Data Fasting glucose >/= 126 [...] interpretive data was last revised 2017. Calcium 10.2 8.5 - 10.3 mg/dL [facility] Blood specimen (specimen) 05/15/2021 1:02 PM CDT 05/15/2021 3:29 PM CDT us Ari Bradley MD LAB BLOOD ORDERABLES Final Res ult [facility] [place] [address] * (ABNORMAL) CBC with auto differential (05/15/2021 1:02 PM CDT) WBC 8.1 3.8 - 9.9 K/cumm [facility] Hgb 13.2 13.0 - 17.5 g/dL [facility] Hct 40.8 38.9 - 50.3 % [facility] Plt 246 150 - 400 K/cumm [facility] MPV 11.3 9.1 - 12.3 fL [facility] RBC 4.89 4.30 - 5.80 M/cumm [facility] MCV 83.4 81.3 - 96.4 fL [facility] MCH 27.0(L) 27.1 - 33.3 pg [facility] MCHC 32.4 32.3 - 35.7 g/dL [facility] RDW CV 16.8(H) 11.1 - 14.9 % [facility] RDW SD 50.7(H) 35.7 - 48.1 fL [facility] NRBC abs 0.00 0.00 - 0.01 K/cumm [facility] Blood specimen (specimen) 05/15/2021 1:02 PM CDT 05/15/2021 3:29 PM CDT us Ari Bradley MD LAB BLOOD ORDERABLES Final Res ult [facility] [place] [address] documented in this encounter Visit Diagnoses Diagnosis Hypertension, unspecified type documented in this encounter Care Teams Gate Technician Relationship Specialty Start Date End Date Gianluca Price MD PCP - General 06/18/17 documented as of this encounter
--- OUTSIDE RECORDS SUMMARY | 2024-10-05 02:52 | XMS_ITS | Encounter Summary ---
Author Organization [facility] Address [address] [place] [address] Phone Care Team Providers Care Behavioral Health Counselor Name Role Phone Gianluca Price MD Primary Care Provider Encounter Details Date Type Department Care Team (Latest Contact Info) Description 08/28/2021 12:00 PM COMPLEX CARE NURSE Office Visit [facility] [address] [place] [address] Ari Bradley MD [address] [place], [place] [id number] Coronary artery disease involving [place] coronary artery of [place] heart without angina pectoris (Primary Dx); Primary [...] on file Legal Sex Male 3:11 AM COMPLEX CARE NURSE Gender Identity Not on file Sexual Orientation Not on file Occupation Industry Job Start Date Job End Date Retired Not on file Not on file Not on file documented as of this encounter Last Filed Vital Signs Vital Sign Reading Time Taken Comments Blood Pressure 136/85 08/28/2021 12:01 PM COMPLEX CARE NURSE Pulse 94 08/28/2021 12:01 PM COMPLEX CARE NURSE Temperature - - Respiratory Rate - - Oxygen Saturation - - Inhaled Oxygen Concentration - - Weight 156.1 kg (344 lb 1.6 oz) 021 12:01 PM COMPLEX CARE NURSE Height 193 cm (6' 3.98 ) 08/28/2021 12: 01 PM COMPLEX CARE NURSE Body Mass Index 41.9 08/28/2021 12:01 PM COMPLEX CARE NURSE documented in this encounter Patient Instructions * Patient Instructions* Ari Bradley MD - 08/28/2021 12:00 PM COMPLEX CARE NURSE [id number] LEX CARE NURSE documented in this encounter Progress Notes * Ari Bradley MD - 08/28/2021 12:00 PM CST 08/28/[address] Hussain Mitchell Patient's Name: Du Anderson : 1955 [place]: 08/28/2021 PRINCIPAL AND SECONDARY DIAGNOSES: 1. Complex coronary disease. PCI of trifurcating left main circumflex, inferior ramus, superior ramus, and ostial LAD in a staged manner with multiple CRISTHIAN stents in 2015. 2. CHF, echo 05/2021 [...] BY MOUTH DAILY 90 tablet 3 ??? clopidogreL (PLAVIX) 75 mg tablet TAKE 1 TABLET BY MOUTH DAILY 90 tablet 3 ??? furosemide (LASIX) 20 mg tablet TAKE 2 TABLETS BY MOUTH TWICE DAILY 360 tablet 3 ??? hydroCHLOROthiazide (HYDRODIURIL) 25 mg tablet Take 25 mg by mouth daily ??? potassium chloride ER 20 mEq CR tablet TAKE 1 TABLET BY MOUTH TWO TIMES DAILY 180 tablet 3 ??? quinapril (ACCUPRIL) 40 mg tablet Take 40 mg by mouth daily ??? spironolactone (ALDACTONE) 25 mg tablet TAKE 1 TABLET BY MOUTH DAILY 90 tablet 3 ??? niacin 500 mg tablet Take 1 tablet (500 mg total) by mouth 2 (two) times a day with meals 180 tablet 3 No current facility-administered medications on file prior to visit. PHYSICAL EXAM: Blood pressure 136/85, pulse 94, height 193 cm (6' 3.98 ), weight (!) 156.1 kg (344 lb 1.6 oz). GEN: pleasant in NAD; alert, comfortable [...] Onlt mild MR noted by Echo on 05/15/2021. It was pleasure to participate in the care of Du Anderson. We will see him back in six months. Sincerely, Ari Bradley M.D., F.A.C.C. weapons specialist [facility]. [place] This note was written using a voice recognition system hardware device. Please note there may be variance in spelling, stephanie, and syntax because of the voice recognition system hardware. Therefore,not every sentence has been reviewed in its entirety. If there are any concerns about verbage aboveplease contact me at [phone]. LEX CARE NURSE LEX CARE NURSE documented in this encounter Plan of Treatment Not on file documented as of this encounter Visit Diagnoses Diagnosis Coronary artery disease involving [place] coronary artery of [place] heart without angina pectoris- Primary Primary hypertension Unspecified essential hypertension Mixed hyperlipidemia documented in this encounter Care Teams Behavioral Health Counselor Relationship Specialty Start Date End Date Gianluca Price MD PCP - General 06/18/17 documented as of this encounter
--- OUTSIDE RECORDS SUMMARY | 2024-10-05 02:52 | XMS_ITS | Encounter Summary ---
Author Organization [facility] Address [address] [place] [address] Phone Care Team Providers Care Director Of Employer Services Name Role Phone Gianluca Price MD Primary Care Provider Reason for Visit * Reason Onset Date Comments Medical record status 08/25/2021 EKG Encounter Details Date Type Department Care Team (Late st Contact Info) Description 08/25/2021 Telephone [facility] [address] Advanced Medicine [address] [place] [address] [place] [address] Ari Bradley MD [address] [place] [address] Medical record status (EKG) Social History Tobacco Use Types Packs/Day Years [...] on file 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 RepresentativeSigned 12:09 PM YAMILET Ortega with [facility] req the results of pt's EKG done on DOS 07/12/21 for an upcoming surgery--they are able to see the stress test in [facility]. FAx# [phone] EKG strips from pt's stress test faxed through [facility] to [place] to [phone]. N IRONER * Telephone Encounter - Lori Jefferson - 08/25/2021 12:09 PM CST YAMILET Ortega with [facility] req the results of pt's EKG done on DOS 07/12/21 for an upcoming surgery--they are able to see the stress test in [facility]. FAx# [phone] N IRONER documented in this encounter Plan of Treatment Not on file documented as of this encounter Visit Diagnoses Not on filedocumented in this encounter Care Teams Director Of Employer Services Relationship Specialty Start Date End Date Gianluca Price MD PCP - General 06/18/17 documented as of this encounter
--- OUTSIDE RECORDS SUMMARY | 2024-10-05 02:52 | XMS_ITS | Encounter Summary ---
Author Organization [facility] Healthcare Address [address] [place] [address] Care Team Providers Care Data Examination Clerk Name Role Phone Gianluca Price MD Primary Care Provider Reason for Visit * Auth/Cert Specialty Diagnoses / Procedures Referred By Contac t Referred To Contact Diagnoses Abnormal EKG Abnormal stress test Chest pain, unspecified type Coronary artery disease of elem artery of elem heart with stable angina pectoris (HCC) Acute diastolic congestive heart failure (CMS/HCC) (HCC) Abnormal EKG [R94.31] Abnormal stress test [R94.39] Chest pain, unspecified type [R07.9] Coronary artery disease of elem artery of elem heart with stable angina pectoris (CMS/HCC) (HCC) [I25.118] Acute diastolic congestive heart failure (CMS/HCC) (HCC) [I50.31] Procedures TX CATH PLMT L HRT & ARTS W/NJX & ANGIO IMG S&I LEFT HEART CATHETERIZATION WITH CORONARY ANGIOGRAPHY AND WITH OR WITHOUT LEFT VENTRICULOGRAM [id number] Referral ID Status Reason Start Date Expiration Date Visits Re quested Visits Authorized [id number] 1 1 Encounter Details Date Type Department Care Team (Latest Contact Info) Description 04/25/2022 10:52 AM CDT - 04/25/2022 8:58 PM CDT Hospital Encounter [facility] [address] [place] [address] Ari Bradley MD [address] [place] [address] Abnormal EKG; Abnormal stress test; Chest pain, unspecified type; Coronary artery disease of elem artery of elem heart with stable angina pectoris ([facility]) ([facility]); Acute diastolic congestive heart failure ([facility]) ([facility]) Discharge Disposition: Discharge to home or self [...] on file 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 If you need to speak to someone after 5pm please call [facility] at [phone] and ask the first coat operator topage the Cardiac Tile Grader Fellow emissions repair technician. documented in this encounter Medications at Time [...] : 1955 Date of Procedure: 04/25/2022 ORDERING C D REACTOR OPERATOR: Surgeon(s): Kam Adamson I., MD Ramos, Anil [...] Yes [] No [] Contraindicated Indications for Tile Grader visit (Select all that apply): [] ACS [...] ESRD [] Dialysis [] HD []PD: Prior [place]: [] Yes [x] No If Yes, Most Recent [place] Date: Tobacco Use Social History Tobacco Use [...] (MSEC) 416 ms QTc 474 ms R [place] 0 degrees [place] 11 degrees Diagnosis Atrial fibrillation Abnormal ECG [...] Mitch Seymour M.D. Fellow in Cardiovascular Disease [facility] in [facility] Cosigned by Kam Adamson MD at 04/25/2022 [...] Last Solid: 04/24/22, Time of Last Solid: 2200 HEENT Exam: negative Sedation Plan: Moderate Cosigned [...] mL 0.5-20 mL intra-catheter Q8H NBA Patti Montanez, UMBRELLA REPAIRER ??? sodium chloride 0.9% flush 0.5-20 mL 0.5-20 mL intra-catheter PRN Patti Montanez, UMBRELLA REPAIRER ??? sodium chloride 0.9% infusion 150 mL/hr intravenous Continuous Patti Montanez, UMBRELLA REPAIRER 150 mL/hr at 04/25/22 1140 150 mL/hr [...] : 1955 Date of Procedure: 04/25/2022 ORDERING C D REACTOR OPERATOR: Surgeon(s): Ari Bradley MD Procedure(s): LEFT HEART CATHETERIZATION WITH CORONARY ANGIOGRAPHY AND WITH OR WITHOUT LEFT VENTRICULOGRAM [id number] Requested Diagnostic: [] Coronary Angiograms Only [x] [...] a staged manner with multiple CRISTHIAN stents??in 2015, atrial fibrillation s/p WILMER/CV 11-05-19. Patient endorses a constant chest heaviness that worsens when he lies flat and improves when he lays onhis side. Also endorses [place] ie.walking 50 feet. S/s have been occurring over the last couple monthsReferred for [facility] NARRATIVE: ALLERGIES: Rosuvastatin Topical Iodine Allergy: [...] Yes [] No [] Contraindicated Indications for Tile Grader visit (Select all that apply): [] ACS [...] ESRD [] Dialysis [] HD []PD: Prior [place]: [] Yes [x] No If Yes, Most Recent [place] Date: Tobacco Use Social History Tobacco Use Smoking Status Never Smoker Smokeless Tobacco Never Used Previous Cardiac and Peripheral Interventions: (Include hospital/procedure/most recent date) Cardiac Cath/Prior PCI:[x] Yes [] No If Yes, Most Recent PCI Date: 11-30-19 Report Available: [x] Yes [] No ?? [id number] 3 vessel disease of the RCA, LAD [...] Yes, Newly Diagnosed: [] Yes [x] No [facility] Class: [] Class I [] Class [...] Completed/Reviewed and Assessment Completed by: Santiago Masterson [employer] Cosigned by Ari Bradley MD at 04/25/2022 [...] pain, unspecified type Coronary artery disease of elem artery of elem heart with stable angina pectoris (CMS/HCC) (HCC) [...] BLOOD ORDERABL ES Edited Result - Final [facility] Department [place] [address] * Basic metabolic panel (04/25/2022 8:00 PM CDT) Sodium 141 135 - 145 mmol/L [facility] Comment:Collection date/time has been modified to: 20:00:00. Previous collection date/time: 12:02:00. Potassium, pl 3.4 3.3 - 4.9 mmol/L [facility] Comment:Collection date/time has been modified to: 20:00:00. Previous collection date/time: 12:02:00. Chloride 107 97 - 110 mmol/L [facility] Comment:Collection date/time has been modified to: 20:00:00. Previous collection date/time: 12:02:00. CO2 24 22 - 32 mmol/L [facility] Comment:Collection date/time has been modified to: 20:00:00. Previous collection date/time: 12:02:00. Anion gap 10 2 - 15 mmol/L [facility] Comment:Collection date/time has been modified to: 20:00:00. Previous collection date/time: 12:02:00. BUN 11 8 - 25 mg/dL [facility] Comment:Collection date/time has been modified to: 20:00:00. Previous collection date/time: 12:02:00. Creatinine 0.85 0.80 - 1.30 mg/dL [facility] Comment:Collection date/time has been modified to: 20:00:00. Previous collection date/time: 12:02:00. Glucose 168 70 - 199 mg/dL [facility] Comment: Collection date/time has been modified to: [...] 2017. Calcium 8.6 8.5 - 10.3 mg/dL [facility] Comment:Collection date/time has been modified to: 20:00:00. Previous collection date/time: 12:02:00. Blood 04/25/2022 8:00 PM CDT 04/25/2022 8:05 PM CDT us Mitch Seymour MD LAB BLOOD ORDERABL ES Edited Result - Final [facility] Department [place] [address] * (ABNORMAL) CBC without differential (04/25/2022 8:00 PM CDT) WBC 7.0 3.8 - 9.9 K/cumm [facility] Comment:Collection date/time has been modified to: 20:00:00. Previous collection date/time: 12:02:00. Hgb 11.5(L) 13.0 - 17.5 g/dL [facility] Comment:Collection date/time has been modified to: 20:00:00. Previous collection date/time: 12:02:00. Hct 37.5(L) 38.9 - 50.3 % [facility] Comment:Collection date/time has been modified to: 20:00:00. Previous collection date/time: 12:02:00. Plt 227 150 - 400 K/cumm [facility] Comment:Collection date/time has been modified to: 20:00:00. Previous collection date/time: 12:02:00. MPV 11.2 9.1 - 12.3 fL [facility] Comment:Collection date/time has been modified to: 20:00:00. Previous collection date/time: 12:02:00. RBC 4.72 4.30 - 5.80 M/cumm [facility] Comment:Collection date/time has been modified to: 20:00:00. Previous collection date/time: 12:02:00. MCV 79.4(L) 81.3 - 96.4 fL [facility] Comment:Collection date/time has been modified to: 20:00:00. Previous collection date/time: 12:02:00. MCH 24.4(L) 27.1 - 33.3 pg [facility] Comment:Collection date/time has been modified to: 20:00:00. Previous collection date/time: 12:02:00. MCHC 30.7(L) 32.3 - 35.7 g/dL [facility] Comment:Collection date/time has been modified to: 20:00:00. Previous collection date/time: 12:02:00. RDW CV 17.2(H) 11.1 - 14.9 % [facility] Comment:Collection date/time has been modified to: 20:00:00. Previous collection date/time: 12:02:00. RDW SD 49.3(H) 35.7 - 48.1 fL [facility] Comment:Collection date/time has been modified to: 20:00:00. Previous collection date/time: 12:02:00. NRBC abs 0.00 0.00 - 0.01 K/cumm [facility] Comment:Collection date/time has been modified to: 20:00:00. Previous collection date/time: 12:02:00. Blood 04/25/2022 8:00 PM CDT 04/25/2022 8:05 PM CDT us Mitch Seymour MD LAB BLOOD ORDERABL ES Edited Result - Final Performing Organization Address [facility] Co de Phone Number [facility] [place] [address] * (ABNORMAL) POCT Activated clotting time, low range (04/25/2022 5:42 PM CDT) ACT 249(H) 123 - 168 sec [facility] Blood 04/25/2022 5:42 PM CDT 04/25/2022 5:42 PM CDT us Ari Bradley MD LAB POCT ORDERABLES - DEVICE F inal Result Performing Organization Address [facility] de Phone Number [facility] Department [place] [address] * CRISTHIAN MAJOR CORONARY, CORONARY OCT, 1ST [...] low syntax score. 5. Equipment used: ??6 [place] hockey-stick guide, power turn flex, 2 5 x 15 NC emerge, 4 0 x 26 NC Sapphire, 4 x 40 mm drug-eluting Synergy stent, [place] intravascular ultrasound. 6. Intravascular ultrasound performed. 7. I provided direct [id number] moderate conscious sedation which was administered by [...] verbage above please contact Kam Adamson at [phone]. us Santiago Masterson MD CV CARDIAC CATH PROCEDU RES Final Result * (ABNORMAL) POCT Activated clotting time, low range (04/25/2022 5:10 PM CDT) ACT 318(H) 123 - 168 sec [facility] Blood 04/25/2022 5:10 PM CDT 04/25/2022 5:10 PM CDT Ari Bradley MD LAB POCT ORDERABLES - DEVICE F inal Result Performing Organization Address City/[facility]/ZIP Co de Phone Number [facility] [place] [address] * POCT Activated clotting time, low range (04/25/2022 4:57 PM CDT) ACT 139 123 - 168 sec [facility] Blood 04/25/2022 4:57 PM CDT 04/25/2022 4:57 PM CDT Ari Bradley MD LAB POCT ORDERABLES - DEVICE F inal Result Performing Organization Address [facility] de Phone Number [facility] [place] [address] * Type and screen (04/25/2022 2:00 PM CDT) ABO Rh O Positive [facility] Eddie, indirect Negative [facility] Comment:Patient has previous antibody history Blood 04/25/2022 2:00 PM CDT 04/25/2022 2:10 PM CDT Narrative [facility] - 04/25/2022 4:02 PM CDT Has the patient had Daratumumab or Isatuximab in the past 6 months?->Unknown Patti Cobb UMBRELLA REPAIRER LAB BLOOD BANK TEST ORDERABLE S Final Result Performing Organization Address [facility] Co de Phone Number [facility] [place] [address] * LEFT HEART CATHETERIZATION WITH CORONARY ANGIOGRAPHY AND WITH AND WITHOUT LEFT VENTRICULOGRAM (04/25/2022 1:13 PM CDT) Anatomical Region Laterality Modality X-Ray Angiograph y Narrative 04/25/2022 1:52 PM CDT CARDIAC CATHETERIZATION Patient: Du Anderson [id number] : 1955 Date of Service: 04/25/2022 FINAL [...] used for local anesthesia. 5. A 5F [place] sheath was placed in the right radial [...] complications were ??Noted. Pt remained hemodynamically stable. [id number] I personally performed or supervised the procedure [...] verbage above please contact me ?? at [phone]. us Ari Bradley MD CV CARDIAC CATH PROCEDURES Fin al Result * (ABNORMAL) CBC without differential (04/25/2022 12:58 PM CDT) WBC 6.5 3.8 - 9.9 K/cumm [facility] Hgb 11.5(L) 13.0 - 17.5 g/dL [facility] Hct 38.0(L) 38.9 - 50.3 % [facility] Plt 226 150 - 400 K/cumm [facility] MPV 11.4 9.1 - 12.3 fL [facility] RBC 4.83 4.30 - 5.80 M/cumm [facility] MCV 78.7(L) 81.3 - 96.4 fL [facility] MCH 23.8(L) 27.1 - 33.3 pg [facility] MCHC 30.3(L) 32.3 - 35.7 g/dL [facility] RDW CV 17.1(H) 11.1 - 14.9 % [facility] RDW SD 48.4(H) 35.7 - 48.1 fL [facility] NRBC abs 0.00 0.00 - 0.01 K/cumm [facility] Blood 04/25/2022 12:5 8 PM CDT 04/25/2022 1:23 PM CDT Narrative [facility] - 04/25/2022 1:44 PM CDT To be drawn after hydration bolus complete us Patti Cobb UMBRELLA REPAIRER LAB BLOOD ORDERABLES Final Re sult [facility] Department [place] [address] * ECG 12 lead (04/25/2022 11:26 AM CDT) Ventricular Rate EKG/Min 78 BPM [facility] Atrial Rate 70 BPM [facility] QRS-Interval (MSEC) 104 ms [facility] QT-Interval (MSEC) 416 ms [facility] QTc 474 ms [facility] R [place] 0 degrees [facility] T [place] 11 degrees [facility] Diagnosis Atrial fibrillation possible inferior infarction, old Abnormal ECG When compared with ECG of 13-NOV-2019 09:27, No significant change was found Confirmed by WILLIAN QUIROGA M.D ([id number]) on 04/26/2022 11:33:48 AM [facility] 04/25/2022 11:2 6 AM CDT 04/26/2022 11:33 AM CDT us Patti Cobb NP ECG ORDERABLES Final Result [facility] documented in this encounter Visit Diagnoses Diagnosis Abnormal EKG Nonspecific abnormal electrocardiogram (ECG) (EKG) Abnormal stress test Other nonspecific abnormal cardiovascular system function study Chest pain, unspecified type Coronary artery disease of elem artery of elem heart with stable angina pectoris (HCC) Acute diastolic congestive heart failure (CMS/HCC) (HCC) Abnormal cardiovascular stress test Other nonspecific abnormal cardiovascular system function study Coronary artery disease involving elem coronary artery of elem heart without angina pectoris Abnormal EKG Nonspecific abnormal electrocardiogram (ECG) (EKG) Abnormal stress test Other nonspecific abnormal cardiovascular system function study Chest pain, unspecified type Coronary artery disease of elem artery of elem heart with stable angina pectoris (HCC) Acute diastolic congestive heart failure (CMS/HCC) (HCC) Chest pain, unspecified type documented in this encounter Admitting Diagnoses Diagnosis Abnormal cardiovascular stress test Other nonspecific abnormal cardiovascular system function study Coronary artery disease involving elem coronary artery of elem heart without angina pectoris Abnormal EKG Nonspecific [...] Sat04/25/22 at 1747, Recovery (CV), Indications: Fever, PainIndications:Fever,Pratibha n Given 04/25/2022 6:16 PM CDT 650 mg [...] at 1415, For 1 dose, Indications: Prophylaxis, SurgicalIndications:Proph ylaxis, Surgical Given 04/25/2022 1:49 PM CDT 1 g 200 mL/hr clopidogreL (PLAVIX) tablet 525 mg 525 mg, oral, Once, On Sat04/25/22 at 1415, For 1 dose Given 04/25/2022 1:50 PM CDT 525 mg heparin in 0.9% sodium chloride 25,000 unit/250 [...] 2:26 PM CDT 1,000 Units/hr 10 mL/hr sodium chloride 0.9% bolus 300 mL 300 [...] 11:40 AM CDT 150 mL/hr 150 mL/hr documented in [...] 1651 (New Bag - Prov ider: Gem Gray RN) verapamiL (ISOPTIN) injection (CANCELED) Administer over 2 [...] 04/25/2022 fentaNYL (SUBLIMAZE) preserv ative free injection 2 04/25/2022 heparin 1,000 unit/mL injection 2 heparin in 0.45% sodium chlo ride 25,000 units/250 mL (100 units/mL) infusion (premix) 2 04/25/2022 heparin in 0.9% sodium chlor joanie 25,000 unit/250 mL infusion (premix) 04/25/2022 ioversoL (OPTIRAY 350) injection 2 04/25/20 lidocaine (XYLOCAINE) 10 mg/ mL (1 %) injection 04/25/2022 midazolam (VERSED) 1 mg/mL p reservative free injection 2 04/25/2022 niCARdipine (CARDENE) 1 mg/1 0 mL in sodium chloride 0.9% (premix) 04/25/2022 nitroglycerin injection 100 mcg/mL in D5W 10 mL 2 04/25/2022 sodium chloride 0.9% flush 0.5-20 mL 2 04/07 sodium chloride 0.9% infusion 2 04/25/2022 verapamiL (ISOPTIN) injection 1 04/25/2022 Discharge Count Last Ordered Date First Orde red Date DISCHARGE PATIENT 1 04/25/2022 CORE MEASURES Count Last Ordered Date First Ord ered Date REASON FOR NO VTE PROPHYLAXIS AT ADMISSION 04/25/2022 REASON FOR NOT PRESCRIBING S TATIN MEDICATION AT DISCHARGE 04/25/2022 Case Request Count Last Ordered Date First Orde red Date CASE REQUEST SEAT COVERER 04/25/2022 documented in this encounter Care Teams Data Examination Clerk Relationship Specialty Start Date End Date Gianluca Price MD PCP - General 06/18/17 documented as of this encounter
--- OUTSIDE RECORDS SUMMARY | 2024-10-05 02:52 | XMS_ITS | Encounter Summary ---
Author Organization [facility] Address [address] [place] [address] Phone Care Team Providers Care Lead Burner Name Role Phone Gianluca Price MD Primary Care Provider Reason for Visit * Reason Onset Date Comments Med Refill 03/15/2022 Entresto Encounter Details Date Type Department Care Team (Late st Contact Info) Description 03/15/2022 Telephone [facility] [address] Advanced Medicine 8th [place] [address] [place] [address] Ari Bradley MD [address] [place] [address] Med Refill (Entresto ) Social History Tobacco Use Types Packs/Day [...] on file 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 Pt calling to get a prescription of Entresto sent to [facility]. Pt is not experiencing any side effects since starting the Entresto. Script for Entresto 24/26 mg sent to [facility] for #180. * Telephone Encounter - Audrey Duarte - 03/15/2022 11:25 AM CDT Kirk Pt calling to get a prescription of Entresto sent to [facility]. Pt is not experiencing any side effects since starting the Entresto. documented in this encounter Plan of Treatment Not on file documented as of this encounter Visit Diagnoses Not on filedocumented in this encounter Discontinued Medications Medication Sig Discontinue Reason Start Date End Da te sacubitriL-valsartan (ENTRESTO) 24-26 mg tabletIndications:chroni c heart failure Take 1 tablet by mouth 2 (two) times a day Reorder 02/13/2022 03/15/2022 documented as of this encounter Care Teams Lead Burner Relationship Specialty Start Date End Date Gianluca Price MD PCP - General 06/18/17 documented as of this encounter
--- OUTSIDE RECORDS SUMMARY | 2024-10-05 02:52 | XMS_ITS | Encounter Summary ---
Author Organization [facility] Address [address] [place] [address] Phone Care Team Providers Care Armament Aircraft Mechanic Name Role Phone Gianluca Price MD Primary Care Provider Reason for Referral * Cardiology (Routine) - Closed Specialty Diagnoses / Procedures Referred By Antonietta livingston Referred To Contact Diagnoses Coronary artery disease with angina pectoris, unspecified vessel or lesion type, unspecified whether tejon or transplanted heart (HCC) Procedures Transthoracic Echo Complete W Doppler/CF Abigail Woodard MD [address] [address] Phone: tel: fax: [facility] (All Locations) Referral ID Status Reason Start Date Expiration Date Visits Re quested Visits Authorized [id number] Closed 05/09/2021 06/23/2021 1 1 Reason for Visit * Consultation (Routine) - Closed Specialty Diagnoses / Procedures Referred By Antonietta livingston Referred To Contact Cardiology Diagnoses Hypertension, unspecified type Abigail Woodard MD [address] [address] Phone: tel: fax: Abigail Woodard MD [address] [address] Phone: tel: fax: Referral ID Status Reason Start Date Expiration Date V isits Requested Visits Authorized [id number] Closed Specialty Services Required 01/11/2021 02/10/2022 1 1 Encounter Details Date Type Department Care Team (Late st Contact Info) Description 04/26/2021 10:45 AM CDT Office Visit [facility] Cardiology [address] [facility] [address] [place] [address] Abigail Woodard MD [address] [facility] [address] [place] [address] Coronary artery disease with angina pectoris, unspecified vessel or lesion type, unspecified whether tejon or transplanted heart (HCC) (Primary Dx); Hypertension, unspecified type Social History Tobacco Use Types [...] on file 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 Gender Identity Not on file Sexual Orientation Not on file Occupation Industry Job Start Date Job End Date Retired Not on file Not on file Not on file documented as of this encounter Last Filed Vital Signs Vital Sign Reading Time Taken Comments Blood Pressure 140/80 04/26/2021 11:07 AM CDT Pulse 98 04/26/2021 11:07 AM CDT Temperature - - Respiratory Rate - - Oxygen Saturation 98% 04/26/2021 11:07 AM CDT Inhaled Oxygen Concentration - - Weight 157.9 kg (348 lb) 04/26/2021 11:07 AM CDT Height 193 cm (6' 3.98 ) 04/26/2021 11:07 AM CDT Body Mass Index 42.38 04/26/2021 11:07 AM CDT documented in this encounter Patient Instructions * Patient Instructions* Abigail Woodard MD - 04/26/2021 10:45 AM CDT Echo with doppler BNP, BMP ,cBC RTc 4 m documented in this encounter Progress Notes * Abigail Woodard MD - 04/26/2021 10:45 AM CDT 04/26/[address] Hussain Mitchell Patient's Name: Du Anderson : 1955 CAMILA: 04/26/2021 PRINCIPAL AND SECONDARY DIAGNOSES: 1. Complex coronary disease. PCI of trifurcating left main circumflex, inferior ramus, superior ramus, and ostial LAD in a staged manner with multiple CRISTHIAN stents in 2015. 2. CHF, echo Oct 2019 LVEF 30-40%, Marked biatrial enlargement. 3. Moderate to severe MR, central MR (ERO: 0.32, RVol: 44) without systolic flow reversal in the pulmonary veins. 4. Atrial fibrillation. 5. Hypertension. 6. Morbid [...] knee replacement recently. Prior to knee replacement, he had an abnormal stress test. We performed cardiac catheterization on 11/30/2019 which showed his prior stents were patent with mild to moderate restenosis. We cleared him for hip replacement surgery. He underwent hip replacement surgery successfully without any cardiovascular problems. Today he returns for follow-up. He is recovering well. He denies any chest pain orshortness of breath. He denies any leg swelling.No history of COV- 19 infection noted. He had LV dysfunction and [...] except those stated above. MEDICATIONS: Current Outpatient Prescriptions Medication Sig Dispense Refill ??? allopurinol (ZYLOPRIM) 300 mg tablet ??? amLODIPine (NORVASC) 5 mg tablet Take 1 tablet (5 mg total) by mouth daily. 30 tablet 6 ??? aspirin 81 mg tablet Take 81 mg by mouth daily. ??? atorvastatin (LIPITOR) 40 mg tablet ??? carvedilol (COREG) 6.25 mg tablet ??? furosemide (LASIX) 20 mg tablet ??? hydroCHLOROthiazide (HYDRODIURIL) 25 mg tablet ??? HYDROcodone-acetaminophen (NORCO) 5-325 mg per tablet 0 ??? niacin ER (NIASPAN) 1,000 mg CR tablet Take 1 tablet (1,000 mg total) by mouth nightly. at bedtime. 90 tablet 2 ??? POTASSIUM CHLORIDE ER 10 mEq CR capsule ??? quinapril (ACCUPRIL) 40 mg tablet ??? ticagrelor (BRILINTA) 90 mg tablet Take one Tablet by mouth twice a day PHYSICAL EXAM: Blood pressure 140/80, pulse 98, height 193 cm (6' 3.98 ), weight (!) 157.9 kg (348 lb), SpO2 98 %. GEN: pleasant in NAD; alert, comfortable HENT: NCAT, MMM, anicteric Neck: no trauma, no JVD CVS: RRR, S1S2, no rubs/murmurs/gallops PULM: non-labored, CTAB, good inspiratory effort ABD: soft, not tender to palpation EXT: equal radial pulses, no edema Neuro: motor and sensation grossly intact Skin: warm, dry, no cyanosis OBJECTIVE DATA: Lab Results Component Value Date GLUCOSE 97 01/18/2021 CALCIUM 9.5 01/18/2021 SODIUM 140 01/18/2021 POTASSIUM 3.6 01/18/2021 CO2 27 01/18/2021 CHLORIDE 102 01/18/2021 BUNSER 19 01/18/2021 CREATININE 0.85 01/18/2021 No results found for: NTPROBNP Lab Results Component Value Date WBC 8.9 01/18/2021 HGB 11.8 (L) 01/18/2021 HCT 38.4 (L) 01/18/2021 MCV 80.2 01/18/2021 LABPLAT 279 01/18/2021 Lab Results Component Value Date LDL 44 06/02/2019 HDL 41 07/29/2020 Ref Range & Units 5 mo ago Sodium 135 - 145 mmol/L 136 Potassium, pl 3.3 - 4.9 mmol/L 4.3 Chloride 97 - 110 mmol/L 100 CO2 22 - 32 mmol/L 27 Anion gap 2 - 15 mmol/L 9 BUN 8 - 25 mg/dL 24 Creatinine 0.80 - 1.30 mg/dL 0.93 Component Latest Ref Rng & Units 09/23/2018 06/02/2019 07/29/2020 Cholesterol 30 - 199 mg/dL 139 111 128 Triglycerides <=149 mg/dL 207 (H) 146 121 HDL Cholesterol >=40 mg/dL 55 44 41 LDL Cholesterol Calc <=129 mg/dL 63 Non-HDL Cholesterol mg/dL 84 67 87 Chol/HDL ratio 2.5 2.5 3 ASSESSMENT AND PLAN: Du Anderson is a very pleasant 61-year-old gentleman here for follow-up. 1. Coronary disease, CHF and moderate to sever MR. Prior to knee replacement, he had an abnormal stress test. We performed cardiac catheterization on 11/30/2019 which showed his prior stents were patent with mild to moderate restenosis. We cleared him for hip replacement surgery. He underwent hip replacement surgery successfully without any cardiovascular problems. He had LV dysfunction and moderate to [...] valve insufficency : He is well compensated. It was pleasure to participate in the care of Du Anderson. We will see him back in six months. Sincerely, Abigail Woodard M.D., F.A.CMillyC. heel burnisher [facility]. [place] This note was written using a voice recognition system hardware device. Please note there may be variance in spelling, stephanie, and syntax because of the voice recognition system hardware. Therefore,not every sentence has been reviewed in its entirety. If there are any concerns about verbage aboveplease contact me at [phone]. documented in this encounter Plan of Treatment Not on file documented as of this encounter Results * TRANSTHORACIC ECHO (TTE) COMPLETE W DOPPLER/CF W CONTRAST (05/15/2021 3:11 PM CDT) Anatomical Region Laterality Modality Ultrasound 05/15/2021 2:00 PM CDT Narrative 05/15/2021 9:44 PM CDT Patient name: Du Anderson Date of test: 05/15/2021 Type of test: TTE w/Doppler Hospital #: [id number] Date of : 1955 (M) Rice Cleaning Machine Tender: LUDIVINA Morrissey ??RDCS Referring Physician: ABIGAIL WOODARD MD Contrast Agent: 1.5 ml Optison Administered, (1.5 ml wasted). Contrast Administered by: Sydney Nunez, SURJIT Supervised/Interpreted by: Abigail Woodard MD Diagnosis: Location: [facility] Reason for test: CAD MV Structure: [...] Variable ?2D Linear Normal ? Aotic Root: 3.3 cm ?<4.0 ? Ao Indexed: 1.2 cm/M2 <2.0 ? LA: ? 4.8 cm ?<4.0 ? RV: ? <4.2 ? LV(ED): ? 4.8 cm ?<5.9 ? LV(ES): ? 3.4 cm ?<4.0 ?2D Vol. ?? Normal ?Indexed ?? Indexed Normal RA: ? 100.0 ml ?35.9 ml/M2 ?11-39 ? LA: ? 122.0 ml ?43.8 ml/M2 ?16-34 ? RV: ? <12.7 ? LV(ED): ? 141.0 ml ??62-150 ?50.7 ml/M2 ?<75 ? LV(ES): ? 76.0 ml ?? 21-61 ? 27.3 ml/M2 ?<32 ?3D Vol. ? Indexed Normal LV(ED): ?<75 ? LV(ES): ?<32 ? LV EF: 46 % ?? (Normal: >=52%) ?? LV Septum: 0.8 cm ?(Normal: <1.0 cm) Wall Motion Scoring (1=Normal 2=Hypo 3=Akinetic 4=Dyskin./Aneurysm 0=Not visualized) Parasternal Long Chamois:MAS=2 BAS=2 MIL=2 ALICJA=2 Parasternal Short Chamois:MAS=2 MIS=2 MO=2 MIL=2 MAL=2 MA=2 Apical 4 Chambers:=2 MIS=2 BIS=2 BAL=2 MAL=2 AL=2 AC=2 Apical 2 Chambers:AI=2 MO=2 BI=2 BA=2 MA=2 AA=2 AC=2 LV Global [...] regurgitation, normal PV. Diastolic function: Normal CONTRAST: 1.5 ml Optison Administered, (1.5 ml wasted). SUMMARY: LA is moderately dilated. Normal RV cavity size. LV cavity size is normal. Normal LV wall thickness/mass.. Mild Global LV hypokinesis noted.LVEF 46%. Normal Inferior vena cava. Normal aorta. ??No AR seen, Mild MR, no , no MS, mild TV regurgitation, normal PV. Diastolic function: Normal Confirmed on ??05/15/2021 - 21:44:11 by Abigail Woodard MD By signing this report, the attending duplicating machine operator certifies that he or she has personally supervised and interpreted the echocardiogram and has reviewed and or edited and agrees with the written comments contained within the report. Procedure Note Abigail Woodard MD - 05/15/2021 Patient name: Du Anderson Date of test: 05/15/2021 Type of test: TTE w/Doppler [facility] #: 0 Date of : 1955 (M) [employer] Cle[employer] Machine Tender: LUDIVINA Morrissey [facility] Referring Physician: ABIGAIL WOODARD MD Contrast Agent: 1.5 ml Optison Administered, (1.5 ml wasted). Contrast Administered by: Sydney Nunez RN Supervised/Interpreted by: Abigail Woodard MD Diagnosis: Location: [facility] Reason for test: CAD MV Structure: Normal, MV Motion: Normal, Mitral Annulus: Normal AV Structure: tricuspid and is Normal, AV Motion: Normal Aotic root: Normal, TM: Normal, PV: Normal Valvular Vegetations: none seen, Mass/Thrombi: none seen RA: Normal Measurements: M-Mode Normal Aotic Root: <3.8 LA: <4.0 RV: <2.8 LV(ED): <5.7 LV(ES): Variable 2D Linear Normal Aotic Root: 3.3 cm <4.0 Ao Indexed: 1.2 cm/M2 <2.0 LA: 4.8 cm <4.0 RV: <4.2 LV(ED): 4.8 cm <5.9 LV(ES): 3.4 cm <4.0 2D Vol. Normal Indexed Indexed Normal RA: 100.0 ml 35.9 ml/M2 11-39 LA: 122.0 ml 43.8 ml/M2 16-34 RV: <12.7 LV(ED): 141.0 ml 62-150 50.7 ml/M2 <75 LV(ES): 76.0 ml 21-61 27.3 ml/M2 <32 3D Vol. Indexed Normal LV(ED): <75 LV(ES): <32 LV EF: 46 % (Normal: >=52%) LV Septum: 0.8 cm (Normal: <1.0 cm) Wall Motion Scoring (1=Normal 2=Hypo 3=Akinetic 4=Dyskin./Aneurysm 0=Not visualized) Parasternal Long Chamois:MAS=2 BAS=2 MIL=2 ALICJA=2 Parasternal Short Chamois:MAS=2 MIS=2 MO=2 MIL=2 MAL=2 MA=2 Apical 4 Chambers:=2 MIS=2 BIS=2 BAL=2 MAL=2 AL=2 AC=2 Apical 2 Chambers:AI=2 MO=2 BI=2 BA=2 MA=2 AA=2 AC=2 LV Global [...] regurgitation, normal PV. Diastolic function: Normal CONTRAST: 1.5 ml Optison Administered, (1.5 ml wasted). SUMMARY: LA is moderately dilated. Normal RV cavity size. LV cavity size is normal. Normal LV wall thickness/mass.. Mild Global LV hypokinesis noted.LVEF 46%. Normal Inferior vena cava. Normal aorta. No AR seen, Mild MR, no , no MS, mild TV regurgitation, normal PV. Diastolic function: Normal Confirmed on 05/15/2021 - 21:44:11 by Abigail Woodard MD By signing this report, the attending duplicating machine operator certifies that he or she has personally supervised and interpreted the echocardiogram and has reviewed and or edited and agrees with the written comments contained within the report. Abigail Woodard MD CV ECHO PROCEDURES Final Resul t * (ABNORMAL) CBC with auto differential (05/15/2021 1:02 PM CDT) Pathologist [facility] WBC 8.1 3.8 - 9.9 K/cumm [facility] Hgb 13.2 13.0 - 17.5 g/dL [facility] Hct 40.8 38.9 - 50.3 % [facility] Plt 246 150 - 400 K/cumm [facility] MPV 11.3 9.1 - 12.3 fL [facility] RBC 4.89 4.30 - 5.80 M/cumm [facility] MCV 83.4 81.3 - 96.4 fL [facility] MCH 27.0(L) 27.1 - 33.3 pg [facility] MCHC 32.4 32.3 - 35.7 g/dL [facility] RDW CV 16.8(H) 11.1 - 14.9 % [facility] RDW SD 50.7(H) 35.7 - 48.1 fL [facility] NRBC abs 0.00 0.00 - 0.01 K/cumm [facility] Blood specimen (specimen) 05/15/2021 1:02 PM CDT 05/15/2021 3:29 PM CDT Abigail Woodard MD LAB BLOOD ORDERABLES Final Res ult [facility] Department [place] [address] * Basic metabolic panel (05/15/2021 1:02 PM CDT) Pathologist [facility] Sodium 139 135 - 145 mmol/L [facility] Potassium, pl 3.9 3.3 - 4.9 mmol/L [facility] Chloride 100 97 - 110 mmol/L [facility] CO2 28 22 - 32 mmol/L [facility] Anion gap 11 2 - 15 mmol/L [facility] BUN 15 8 - 25 mg/dL [facility] Creatinine 0.93 0.80 - 1.30 mg/dL [facility] Glucose 96 70 - 199 mg/dL [facility] Comment: Interpretive Data Fasting glucose >/= [...] 2017. Calcium 10.2 8.5 - 10.3 mg/dL [facility] Blood specimen (specimen) 05/15/2021 1:02 PM CDT 05/15/2021 3:29 PM CDT us Abigail Woodard MD LAB BLOOD ORDERABLES Final Res ult [facility] [place] [address] * (ABNORMAL) Pro B-type natriuretic peptide (05/15/2021 1:02 PM CDT) NT-proBNP 743(H) <=300 pg/mL [facility] Comment: Interpretive Comments: A. Dyspnea in Acute [...] PM CDT 05/15/2021 3:29 PM CDT us Abigail Woodard MD LAB BLOOD ORDERABLES Final Res ult [facility] [place] [address] documented in this encounter Visit Diagnoses Diagnosis Coronary artery disease with angina pectoris, unspecified vessel or lesion type, unspecified whether tejon or transplanted heart (HCC)- Primary Hypertension, unspecified type Coronary artery disease with angina pectoris, unspecified vessel or lesion type, unspecified whether tejon or transplanted heart (HCC) documented in this encounter Orders Outpatient Referral Count Last Ordered Date Fir st Ordered Date AMB REFERRAL TO CARDIOLOGY 04/26/2021 documented in this encounter Care Teams Armament Aircraft Mechanic Relationship Specialty Start Date End Date Gianluca Price MD PCP - General 06/18/17 documented as of this encounter
--- OUTSIDE RECORDS SUMMARY | 2024-10-05 02:52 | XMS_ITS | Encounter Summary ---
Author Organization [facility] Address [address] [place] [address] Phone Care Team Providers Care Government Gauger Name Role Phone Gianluca Price MD Primary Care Provider Ayden Corona DO Unavailable [phone] Roberto Medley MD Unavailable [phone] Encounter Details Date Type Department Care Team (Late st Contact Info) Description 01/18/2021 Telephone [facility] Cardiology [address] [facility] [address] [facility] [address]th [place] [address] [place] [address] Ari Bradley MD [address] [place] [address] Social History Tobacco Use Types [...] on file 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 Gender Identity Not on file Sexual Orientation Not on file Occupation Industry Job Start Date Job End Date Retired Not on file Not on file Not on file documented as of this encounter Plan of Treatment Not on file documented as of this encounter Visit Diagnoses Not on filedocumented in this encounter Care Teams Government Gauger Relationship Specialty Start Date End Date Gianluca Price MD PCP - General 06/18/17 Ayden Corona DO [address] [facility] [address] [place] [address] Referring Physician Surgery 10/29/22 Roberto Medley MD [phone] [place] [address] Surgeon Colon and Rectal Surgery 11/23/22 documented as of this encounter
--- OUTSIDE RECORDS SUMMARY | 2024-10-05 02:52 | XMS_ITS | Encounter Summary ---
Author Organization [facility] Address [address] [place] [address] Phone Care Team Providers Care Printer Slotter Feeder Name Role Phone Gianluca Price MD Primary Care Provider Reason for Visit * Reason Onset Date Comments Surgical Clearance 08/14/2021 Hip Replaceme nt Encounter Details Date Type Department Care Team (Late st Contact Info) Description 08/14/2021 Telephone [facility] Cardiology [address] [facility] [address] 8th [place] [address] [place] [address] Ari Bradley MD [address] [place] [address] Surgical Clearance (Hip Replacement) Social History Tobacco Use Types Packs/Day Years [...] on file 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 Discussed with Dr. Bradley and verbal orders given that pt is cleared for surgery with an acceptable risk. Cardiac clearance form faxed back to Dr. Segura's office to [phone]. Pt was called and made aware that he was cleared for surgery. EM CONSULTANT * Telephone Encounter - Gilda Del Castillo - 08/14/2021 3:06 PM CST Pt called wants to know how he can go about getting his cardiac clearance form completed prior to his hip surgery on 09/13/2021. EM CONSULTANT documented in this encounter Plan of Treatment Not on file documented as of this encounter Visit Diagnoses Not on filedocumented in this encounter Care Teams Printer Slotter Feeder Relationship Specialty Start Date End Date Gianluca Price MD PCP - General 06/18/17 documented as of this encounter
--- OUTSIDE RECORDS SUMMARY | 2024-10-05 02:52 | XMS_ITS | Encounter Summary ---
Author Organization [facility] Address [address] [place] [address] Phone Care Team Providers Care Document Control Specialist Name Role Phone Gianluca Price MD Primary Care Provider Reason for Referral * Diagnostic Imaging (Routine) - Closed Specialty Diagnoses / Procedures Referred By Contac t Referred To Contact Diagnoses Coronary artery disease of [place] artery of [place] heart with stable angina pectoris (HCC) Cardiac LV ejection fraction of 40-49% Procedures NM MPI SPECT (Rest and/or Stress) Multiple Studies Ari Bradley MD [address] [place] [address] Phone: tel: fax: [facility] (All Locations) Referral ID Status Reason Start Date Expiration Date Visits Re quested Visits Authorized [id number] Closed 05/17/2021 08/19/2021 1 1 Reason for Visit * Reason Onset Date Comments Abnormal Echo 05/17/2021 EF: 46% Orders 05/17/2021 Lexiscan stress test Encounter Details Date Type Department Care Team (Late st Contact Info) Description 05/17/2021 Telephone [facility] Cardiology [address] [place] [address] Ari Bradley MD [address] [place] [address] Abnormal Echo (EF: 46%); Orders (Lexiscan stress test) Social History Tobacco Use Types Packs/Day Years [...] on file 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 * Telephone Encounter - Sydney Nunez RN - 05/17/2021 10:38 AM CDT Echocardiogram results reviewed by Dr. Bradley: SUMMARY: LA is moderately dilated. Normal RV cavity size. LV cavity size is normal. Normal LV wall thickness/mass.. Mild Global LV hypokinesis noted.LVEF 46%. Normal Inferior vena cava. Normal aorta. No AR seen, Mild MR, no , no MS, mild TV regurgitation, normal PV. Diastolic function: Normal Ari Bradley MD: EF is a bit low now. Get a Lexiscan stress test. Called and spoke with pt making him aware of results and he agreed to get set up for the stress test. Lexiscan stress test orders placed in [facility] and message sent to scheduling. documented in this encounter Plan of Treatment Not on file documented as of this encounter Results * NM MPI SPECT (Rest and/or Stress) Multiple Studies (07/12/2021 11:41 AM CDT) Anatomical Region Laterality Modality Body N/A Electrocardiogra phy Narrative 07/16/2021 5:11 PM CDT [facility] Heart & Vascular [address] [address] Nuclear MPI Pharmaceutical Study Patient Name: Du Anderson Gender: male : 1955 Date of Study: 07/12/21 Ordering Provider: Ari Bradley MD Primary care Provider: No physician found. Examination Myocardial Perfusion Imaging: Pharmacologic/Spect with Gated Imaging and Ejection Fraction Measurement. Cardiac History hypertension. Reason for Examination abnormal EKG, CAD, and hypertension. Cardiac Risk Factors hypertension. Stress Procedure Baseline or Resting EKG NSR Normal Pharmaceutical Parameters: Chemical Test duration: 5 min 8 sec. Baseline BP: 138 / 87 mm Hg Baseline HR: 95 /min Peak BP: 133 / 91 mm Hg Peak HR: 116 /min 74 % of PMHR HR Response to Pharmaceutical: Normal BP Response to Pharmaceutical: Normal Functional Capacity: below average ST changes: None Symptoms during Pharmaceutical Injection : None Reasons for Termination: End of Protocol Nuclear Procedure Radiopharmaceutical: 11.9 mCi Tc-99M Tetrofosmin IV for rest and 45.6 mCi Tc-99M Tetrofosmin IV for stress. Protocol: Standard myocardial perfusion images were obtained after resting injection of Tc-99M Tetrofosmin intravenously. Resting images were obtained after a 30 minutes delay. Subsequently, an intravenous infusion of 0.4 mg/5ml Lexiscan given over a 10 second injection was given under the supervision of the physician. Tc-99M tetrofosimin was injected intravenously 10-20 seconds post lexiscan/saline flush injection and standard myocardial images were obtained after a 45 minute delay. The overall quality of the study is good. Motion correction was not performed. Images Interpretation The Spect gated images revealed ??medium evidence of irreversible perfusion defect at the inferior wall that is nontransmural, with paul-infarct ischemia. The Spect gated images demonstrate abnormal wall motion. Gated Spect imaging demonstrates hypokinesis ??that is [...] not LV dilatation present. Clinically normal ECG. ??Electrocardiographically normal ECG. Recommendation Continue medical therapy. Finding discussed with the patient personally. Stress myocardial perfusion imaging has a known 10-15% false negative rate and a small (5-10%) false positive rate. I have personally supervised and interpreted this study. I have reviewed and/or edited and agree with the written comments contained within the report. us Ari Bradley MD [facility] PROC[facility] Final Result documented in this encounter Visit Diagnoses Diagnosis Cardiac LV ejection fraction of 40-49%- Primary Coronary artery disease of [place] artery of [place] heart with stable angina pectoris (HCC) Coronary artery disease of [place] artery of [place] heart with stable angina pectoris (HCC) Cardiac LV ejection fraction of 40-49% documented in this encounter Care Teams Document Control Specialist Relationship Specialty Start Date End Date Gianluca Price MD PCP - General 06/18/17 documented as of this encounter
--- OUTSIDE RECORDS SUMMARY | 2024-10-05 02:52 | XMS_ITS | Encounter Summary ---
Author Organization [facility] Address [address] [place] [address] Phone Care Team Providers Care Gericare Aide Name Role Phone Gianluca Price MD Primary Care Provider Reason for Visit * Reason Onset Date Comments Chest Pain 04/18/2022 Shortness of Breath 04/18/2022 Fatigue 04/18/2022 Encounter Details Date Type Department Care Team (Late st Contact Info) Description 04/18/2022 Telephone [facility] Cardiology [address] [facility] [address] [place] [address] [place] [address] Ari Bradley MD [address] [facility] [address] [place] [address] Chest Pain; Shortness of Breath; Fatigue Social History Tobacco Use Types Packs/Day Years [...] on file 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 Vickie AnnClinic Services RepresentativeSigned 3:17 PM Calling again Said he has been SOB for a month and a half. Has been having chest pressure off and on. Last time he had chest pressure is right now. Called and spoke with pt who was having the following complaints: Fatigue/no energy SOB upon exertion. Generalized chest pressure, but denied any Nitro use. Pt confirmed that he could not tell if he had the same type of symptoms as prior to his PCI placement. ROV added in an open spot for 04/19/22 at 1245. * Telephone Encounter - Vickie Ann - 04/18/2022 3:17 PM CDT Calling again Said he has been SOB for a month and a half. Has been having chest pressure off and on. Last time he had chest pressure is right now. * Telephone Encounter - Vickie Ann - 04/18/2022 1:29 PM CDT Kirk Wants to talk to you about the 04/16/22 Echo results and the symptoms he is still having. documented in this encounter Plan of Treatment Not on file documented as of this encounter Visit Diagnoses Not on filedocumented in this encounter Care Teams Gericare Aide Relationship Specialty Start Date End Date Gianluca Price MD PCP - General 06/18/17 documented as of this encounter
--- OUTSIDE RECORDS SUMMARY | 2024-10-05 02:52 | XMS_ITS | Encounter Summary ---
Author Organization [facility] Address [address] [place] [address] Phone Care Team Providers Care Retail Wireless Sales Consultant Name Role Phone Gianluca Price MD Primary Care Provider Reason for Visit * Cardiology (Routine) - Closed Specialty Diagnoses / Procedures Referred By Contac t Referred To Contact Diagnoses Coronary artery disease with angina pectoris, unspecified vessel or lesion type, unspecified whether kake or transplanted heart (HCC) Procedures Transthoracic Echo Complete W Doppler/CF Abigail Woodard MD [address] [facility] [address] [place] [address] Phone: tel: fax: [facility] (All Locations) Referral ID Status Reason Start Date Expiration Date Visits Re quested Visits Authorized [id number] Closed 05/09/2021 06/23/2021 1 1 Encounter Details Date Type Department Care Team (Latest Contact Info) Description 05/15/2021 2:00 PM CDT Ancillary Procedure [facility] Cardiology [address] [facility] [address] [place] [address] Coronary artery disease with angina pectoris, unspecified vessel or lesion type, unspecified whether kake or transplanted heart (HCC) Social History Tobacco Use Types Packs/Day [...] on file 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 Gender Identity Not on file Sexual Orientation Not on file Occupation Industry Job Start Date Job End Date Retired Not on file Not on file Not on file documented as of this encounter Plan of Treatment Not on file documented as of this encounter Procedures Procedure Name Priority Date/Time Associated Diagnosis Comments TRANSTHORACIC ECHO (TTE) COMPLETE W DOPPLER/CF W CONTRAST Routine 05/15/2021 3:11 PM CDT Coronary artery disease with angina pectoris, unspecified vessel or lesion type, unspecified whether kake or transplanted heart (HCC) documented in this encounter Results * TRANSTHORACIC ECHO (TTE) COMPLETE W DOPPLER/CF W CONTRAST (05/15/2021 3:11 PM CDT) Anatomical Region Laterality Modality Ultrasound 05/15/2021 2:00 PM CDT Narrative 05/15/2021 9:44 PM CDT Patient name: Du Anderson Date of test: 05/15/2021 Type of test: TTE w/Doppler Hospital #: 0 Date of : 1955 (M) Survey Instrument Operator: LUDIVINA Morrissey ??CS Referring Physician: ABIGAIL WOODARD MD Contrast Agent: 1.5 ml Optison Administered, (1.5 ml wasted). Contrast Administered by: Sydney Nunez RN Supervised/Interpreted by: Abigail Woodard MD Diagnosis: Location: [facility] Reason for test: CAD MV [...] 2=Hypo 3=Akinetic 4=Dyskin./Aneurysm 0=Not visualized) Parasternal Long [place]:MAS=2 BAS=2 MIL=2 ALICJA=2 Parasternal Short [place]:MAS=2 MIS=2 AL=2 MIL=2 MAL=2 MA=2 Apical 4 Chambers:=2 MIS=2 BIS=2 BAL=2 MAL=2 AL=2 AC=2 Apical 2 Chambers:AI=2 AL=2 BI=2 BA=2 MA=2 AA=2 AC=2 LV Global [...] MD By signing this report, the attending outside maintenance worker certifies that he or she has personally supervised and interpreted the echocardiogram and has reviewed and or edited and agrees with the written comments contained within the report. Procedure Note Abigail Woodard MD - 05/15/2021 Patient name: Du Anderson Date of test: 05/15/2021 Type of test: TTE w/Doppler [facility] #: 0 Date of : 1955 (M) Survey Instrument Operator: Olivia Patel BS [facility] Referring Physician: ABIGAIL WOODARD MD Contrast Agent: 1.5 ml Optison Administered, (1.5 ml wasted). Contrast Administered by: Sydney Nunez RN Supervised/Interpreted by: Abigail Woodard MD Diagnosis: Location: [facility] [place] Reason for test: CAD MV Structure: [...] 2=Hypo 3=Akinetic 4=Dyskin./Aneurysm 0=Not visualized) Parasternal Long [place]:MAS=2 BAS=2 MIL=2 ALICJA=2 Parasternal Short [place]:MAS=2 MIS=2 AL=2 MIL=2 MAL=2 MA=2 Apical 4 Chambers:=2 MIS=2 BIS=2 BAL=2 MAL=2 AL=2 AC=2 Apical 2 Chambers:AI=2 AL=2 BI=2 BA=2 MA=2 AA=2 AC=2 LV Global [...] MD By signing this report, the attending outside maintenance worker certifies that he or she has personally supervised and interpreted the echocardiogram and has reviewed and or edited and agrees with the written comments contained within the report. Abigail Woodard MD CV ECHO PROCEDURES Final Resul t documented in this encounter Visit Diagnoses Diagnosis Coronary artery disease with angina pectoris, unspecified vessel or lesion type, unspecified whether kake or transplanted heart (HCC) documented in this encounter Administered Medications Inactive Administered Medications - up to 3 most recent administrations Medication Order MAR Action Action Date Dose Rate Site perflutren protein-a (OPTISON) 3 mL in sodium chloride 0.9% 8 mL syringe 1-8 mL, intravenous, Once in imaging, contrast, Starting on 05/15/21 at 1416, For 1 dose, Intra-Procedure (CV) Contrast Given 05/15/2021 2:43 PM CDT 4 mL documented in this encounter Orders Medications Ordered That Laith ht Not Have Been Administered Count Last Ordered Date First Ordered Date perflutren protein-a (OPTISO N) 3 mL in sodium chloride 0.9% 8 mL syringe 1 05/15/2021 documented in this encounter Care Teams Retail Wireless Sales Consultant Relationship Specialty Start Date End Date Gianluca Price MD PCP - General 06/18/17 documented as of this encounter
--- OUTSIDE RECORDS SUMMARY | 2024-10-05 02:52 | XMS_ITS | Encounter Summary ---
Author Organization [facility] Address [address] [place] [address] Phone Care Team Providers Care Fruit Worker Name Role Phone Gianluca Price MD Primary Care Provider Reason for Visit * Diagnostic Imaging (Routine) - Closed Specialty Diagnoses / Procedures Referred By Contac t Referred To Contact Diagnoses Coronary artery disease of [place] artery of [place] heart with stable angina pectoris (HCC) Cardiac LV ejection fraction of 40-49% Procedures NM MPI SPECT (Rest and/or Stress) Multiple Studies Ari Bradley MD [address] [facility] [address] [place] [address] Phone: tel: fax: [facility] (All Locations) Referral ID Status Reason Start Date Expiration Date Visits Re quested Visits Authorized [id number] Closed 05/17/2021 08/19/2021 1 1 Encounter Details Date Type Department Care Team (Latest Contact Info) Description 07/12/2021 10:00 AM CDT Ancillary Procedure [facility] Cardiology [address] [facility] [address] [place] [address] Coronary artery disease of [place] artery of [place] heart with stable angina pectoris (CMS/HCC) (HCC); Cardiac LV ejection fraction of 40-49% Social History Tobacco Use Types Packs/Day Years [...] on file 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 Gender Identity Not on file Sexual Orientation Not on file Occupation Industry Job Start Date Job End Date Retired Not on file Not on file Not on file documented as of this encounter Plan of Treatment Not on file documented as of this encounter Procedures Procedure Name Priority Date/Time Associated Diagnosis Comments NM MPI SPECT (REST AND/OR STRESS) MULTIPLE STUDIES Schedule Routine, Read Routine (OP Routine) 07/12/2021 11:41 AM CDT Coronary artery disease of [place] artery of [place] heart with stable angina pectoris (CMS/HCC) (HCC) Cardiac LV ejection fraction of 40-49% documented in this encounter Results * NM MPI SPECT (Rest and/or Stress) Multiple Studies (07/12/2021 11:41 AM CDT) Anatomical Region Laterality Modality Body N/A Electrocardiogra phy Narrative 07/16/2021 5:11 PM CDT [facility] Heart & Vascular [address] [address] Nuclear MPI Pharmaceutical Study Patient Name: Du [...] the written comments contained within the report. Ari Bradley MD [facility] PROCEDURES Final Result documented in this encounter Visit Diagnoses Diagnosis Coronary artery disease of [place] artery of [place] heart with stable angina pectoris (HCC) Cardiac LV ejection fraction of 40-49% documented in this encounter Administered Medications Inactive Administered Medications - up to 3 most recent administrations Medication Order MAR Action Action Date Dose Rate Site regadenoson (LEXISCAN) 0.4 mg/5 mL injection 0.4 mg 0.4 mg, intravenous, Once, On Sat07/12/21 at 1115, For 1 dose, Intra-Procedure (CV), Administer IV push over 10 seconds., Indications: Myocardial Perfusion Imaging AdjunctIndications:Myocard ial Perfusion Imaging Adjunct Given 07/12/2021 11:45 AM CDT 0.4 mg tc-99m tetrofosmin (MYOVIEW) injection 11.9 millicurie 11.9 millicurie, intravenous, Once in imaging, radiopharmaceutical, Starting on Sat07/12/21 at 1015, For 1 dose, Intra-Procedure (CV), Indications: Diagnostic RadiographyIndications:Judit gnostic Radiography Given 07/12/2021 10:15 AM CDT 11.9 millicuries tc-99m tetrofosmin (MYOVIEW) injection 45.6 millicurie 45.6 millicurie, intravenous, Once in imaging, radiopharmaceutical, Starting on Sat07/12/21 at 1145, For 1 dose, Intra-Procedure (CV), Indications: Diagnostic RadiographyIndications:Judit gnostic Radiography Given 07/12/2021 11:45 AM CDT 45.6 millicuries documented in this encounter Care Teams Fruit Worker Relationship Specialty Start Date End Date Gianluca Price MD PCP - General 06/18/17 documented as of this encounter
--- OUTSIDE RECORDS SUMMARY | 2024-10-05 02:52 | XMS_ITS | Encounter Summary ---
Author Organization [facility] Address [address] [place] [address] Phone Care Team Providers Care Filler Shredder Name Role Phone Gianluca Price MD Primary Care Provider Encounter Details Date Type Department Care Team (Late st Contact Info) Description 01/18/2021 Orders Only [facility] Cardiology [address] [facility] 8th [place] [address] [place] [address] Ari Bradley MD [address] 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 Gender Identity Not on file Sexual Orientation Not on file Occupation Industry Job Start Date Job End Date Retired Not on file Not on file Not on file documented as of this encounter Plan of Treatment Not on file documented as of this encounter Procedures Procedure Name Priority Date/Time Associated Diagnosis Comments PRO B-TYPE NATRIURETIC PEPTIDE Routine 01/18/2021 3:04 PM CDT CBC WITH AUTO DIFFERENTIAL Routine 01/18/2021 3:04 PM CDT COMPREHENSIVE METABOLIC PANEL Routine 01/18/2021 3:04 PM CDT documented in this encounter Results * Pro B-type natriuretic peptide (01/18/2021 3:04 PM CDT) [facility] B type natriuretic peptide 25 <100 pg/mL [facility] Comment: BNP levels increase with age in the general population with the highest values seen in individuals greater than 75 years of age. Reference: J. Am. Scott. Cardiol. 2002; 40:976-982. 01/18/2021 3:04 PM CDT 01/18/2021 3:10 PM CDT us Ari Bradley MD LAB BLOOD ORDERABLES Final Res ult [facility] [address] [place] [address] * (ABNORMAL) CBC with auto differential (01/18/2021 3:04 PM CDT) [facility] WBC 8.9 3.8 - 10.8 Thousand/u L [facility] RBC, POC 4.79 4.20 - 5.80 Million/uL [facility] Hgb 11.8(L) 13.2 - 17.1 g/dL [facility] Hct 38.4(L) 38.5 - 50.0 % [facility] MCV 80.2 80.0 - 100.0 fL [facility] MCH 24.6(L) 27.0 - 33.0 pg [facility] MCHC 30.7(L) 32.0 - 36.0 g/dL [facility] Rdw 15.8(H) 11.0 - 15.0 % [facility] Platelets 279 140 - 400 Thousand/u L [facility] MPV 12.3 7.5 - 12.5 fL [facility] Neutrophils, abs 5,919 1,500 - 7,800 cells/uL [facility] Lymphocytes, abs 1,967 850 - 3,900 cells/uL [facility] Monocyte abs 828 200 - 950 cells/uL [facility] Eosinophils, abs 107 15 - 500 cells/uL [facility] Basophils, abs 80 0 - 200 cells/uL [facility] Neutrophils 66.5 % [facility] Lymphocyte pct 22.1 % [facility] Monocytes 9.3 % [facility] Eosinophils 1.2 % [facility] Basophils 0.9 % [facility] 01/18/2021 3:04 PM CDT 01/18/2021 3:10 PM CDT us Ari Bradley MD LAB BLOOD ORDERABLES Final Res ult [facility] [address] [place] [address] * Comprehensive metabolic panel (01/18/2021 3:04 PM CDT) Pathologist [facility] Glucose 97 65 - 99 mg/dL [facility] Comment: ? Fasting reference interval BUN 19 7 - 25 mg/dL [facility] Creatinine 0.85 0.70 - 1.25 mg/dL [facility] Comment: For patients >49 years of age, the reference limit for Creatinine is approximately 13% higher for people identified as -[place]. eGFR NON-AFR. [place] 91 > OR = 60 mL/min/1 .73m2 [facility] EGFR 106 > OR = 60 mL/min/1 .73m2 [facility] BUN/creat ratio NOT APPLICABLE 6 - 22 (calc) [facility] Sodium 140 135 - 146 mmol/L [facility] Potassium, pl 3.6 3.5 - 5.3 mmol/L [facility] Chloride 102 98 - 110 mmol/L [facility] CO2 27 20 - 32 mmol/L [facility] Calcium 9.5 8.6 - 10.3 mg/dL [facility] Protein, sr 7.0 6.1 - 8.1 g/dL [facility] Albumin 4.4 3.6 - 5.1 g/dL [facility] GLOBULIN 2.6 1.9 - 3.7 g/dL (calc) [facility] Alb/glob ratio 1.7 1.0 - 2.5 (calc) [facility] Bilirubin, total 0.6 0.2 - 1.2 mg/dL [facility] Alk phos 102 35 - 144 U/L [facility] AST 20 10 - 35 U/L [facility] ALT (SGPT) 24 9 - 46 U/L [facility] 01/18/2021 3:04 PM CDT 01/18/2021 3:10 PM CDT us Ari Bradley MD LAB BLOOD ORDERABLES Final Res ult [facility] [address] [address] documented in this encounter Visit Diagnoses Not on filedocumented in this encounter Care Teams Filler Shredder Relationship Specialty Start Date End Date Gianluca Price MD PCP - General 06/18/17 documented as of this encounter
--- OUTSIDE RECORDS SUMMARY | 2024-10-05 02:52 | XMS_ITS | Encounter Summary ---
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 Gender Identity Not on file Sexual Orientation Not on file Occupation Industry Job Start Date Job End Date Retired Not on file Not on file Not on file documented as of this encounter Plan of Treatment Not on file documented as of this encounter Procedures Procedure Name Priority Date/Time Associated Diagnosis Comments PRO B-TYPE NATRIURETIC PEPTIDE Routine 03/15/2022 9:58 AM CDT BASIC METABOLIC PANEL Routine 03/15/2022 9:58 AM CDT documented in this encounter Results * (ABNORMAL) Pro B-type natriuretic peptide (03/15/2022 9:58 AM CDT) NT PROBNP 577(H) pg/mL [facility] Comment: ??For Heart Failure (HF) diagnosis, reference ??ranges in patients with dyspnea are based on ??Bess FISHER, et al., J Am Scott Cardiol. ??2018;71:7585-5840. ?18-49 years: ?< or = 300 pg/mL Normal, HF unlikely ?> or = 450 pg/mL High probability of HF ??50-75 years: ?< or = 300 pg/mL Normal, HF unlikely ?> or = 900 pg/mL High probability of HF ??>75 years: ?< or = 300 pg/mL Normal, HF unlikely ?> or = 1800 pg/mL High probability of HF ?For patients with coronary heart disease, ??the optimal risk category cut points for ??incident HF or CVD (<253 pg/mL men, ??<372 pg/mL women) are based on [place] T. ??et al., J Am Scott Cardiol. 2007;50:205-14. ?For patients with existing HF, the optimal ??risk category cut point for HF progression ??(<300 pg/mL) is based on Heidi PATEL, et al., ??Clin Biochem. 2010;43:1405-10. For additional information, please refer to http://education.milabent/faq/PPG038 (This link is being provided for informational/ educational purposes only.) 03/15/2022 9:58 AM CDT 03/15/2022 9:59 AM CDT us Ari Bradley MD LAB BLOOD ORDERABLES Final Res ult [facility] [id number] [address] [phone] * (ABNORMAL) Basic metabolic panel (03/15/2022 9:58 AM CDT) Pathologist [facility] Glucose 102(H) 65 - 99 mg/dL [facility] Comment: ? Fasting reference interval For someone without known diabetes, a glucose value between 100 and 125 mg/dL is consistent with prediabetes and should be confirmed with a follow-up test. BUN 15 7 - 25 mg/dL [facility] Creatinine 0.91 0.70 - 1.25 mg/dL [facility] Comment: For patients >49 years of age, the reference limit for Creatinine is approximately 13% higher for people identified as -[place]. eGFR NON-AFR. UKRAINIAN 88 > OR = 60 mL/min/1 .73m2 [facility] EGFR 101 > OR = 60 mL/min/1 .73m2 [facility] BUN/creat ratio NOT APPLICABLE 6 - 22 (calc) [facility] Sodium 138 135 - 146 mmol/L [facility] Potassium, pl 4.1 3.5 - 5.3 mmol/L [facility] Chloride 105 98 - 110 mmol/L [facility] CO2 26 20 - 32 mmol/L [facility] Calcium 9.4 8.6 - 10.3 mg/dL [facility] 03/15/2022 9:58 AM CDT 03/15/2022 9:59 AM CDT us Ari Bradley MD LAB BLOOD ORDERABLES Final Res ult [facility] [address] [address] [phone] documented in this encounter Visit Diagnoses Not on filedocumented in this encounter Care Teams Fixed Income Director Relationship Specialty Start Date End Date Gianluca Price MD PCP - General 06/18/17 documented as of this encounter
--- OUTSIDE RECORDS SUMMARY | 2024-10-05 02:53 | XMS_ITS | Encounter Summary ---
Author Organization 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 Please call If questions. MS ADJUDICATOR documented in this encounter Plan of Treatment Not on file documented as of this encounter Visit Diagnoses Not on filedocumented in this encounter Care Teams Gear Shaper Relationship Specialty Start Date End Date Gianluca Price MD PCP - General 06/18/17 documented as of this encounter
--- OUTSIDE RECORDS SUMMARY | 2024-10-05 02:53 | XMS_ITS | Encounter Summary ---
Author Organization [facility] Address [address] [place] [address] Phone Care Team Providers Care Debt And Budget Counselor Name Role Phone Gianluca Price MD Primary Care Provider Encounter Details Date Type Department Care Team (Late st Contact Info) Description 11/06/2019 Telephone [facility] Cardiology [address] 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 Mitchell's recs; verbalizes understanding. Will increase potassium to 30meqbid per Dr. Mitchell's instructions. Pt already taking 20meq bid. 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 Let's intensify his heart failure management first. Please do the followin. Increase Lasix to 40 mg twice daily 2. Add spironolactone 25 mg daily 3. Add potassium 10 mEq daily 4. He is to Measure his blood pressure daily and send us the log in 1 week - I may further optimizehis beta-modesta or CATIE-inhibitor depending on his blood pressure response to diuretics. Please copy this note in his chart. Thanks! Hussain ----- Message ----- From: Anil Ramos MD Sent: 11/05/2019 11:50 AM ASSISTANT PRODUCT MANAGER To: Verenice Caldwell RN, Hussain Mitchell MD Subject: WILMER/CV on patient today Dear Dr. Mitchell, We performed a WILMER with CV on your patient Mr. Anderson today. In addition, WILMER revealed moderate LVdysfunction and moderate-severe, central MR. He has large atria. We cardioverted him once with successful church of sinus rhythm. However, he returned to afib a few minutes later and we cardioverted him again. At the moment, he remains in sinus rhythm but I suspect it will be short lived. He reported that this was all found as part of a preoperative evaluation for a ELLIOT and he has to providea report to his surgeon this afternoon, so I wanted to notify you of our results as soon as possible. Let me know if I can help further. Sincerely, Clint Ramos STANT PRODUCT MANAGER documented in this encounter Plan of Treatment Not on file documented as of this encounter Visit Diagnoses Not on filedocumented in this encounter Care Teams Debt And Budget Counselor Relationship Specialty Start Date End Date Gianluca Price MD PCP - General 06/18/17 documented as of this encounter
--- OUTSIDE RECORDS SUMMARY | 2024-10-05 02:53 | XMS_ITS | Encounter Summary ---
Author Organization [facility] Address [address] [place] [address] Phone Care Team Providers Care Night Clerk Name Role Phone Gianluca Price MD Primary Care Provider Encounter Details Date Type Department Care Team (Late st Contact Info) Description 11/06/2019 Orders Only [facility] Cardiology [address] [facility] Advanced Medicine 8th [place] [address] [place] [address] Hussain Mitchell MD [address] [place], [place] [id number] Hypertension, unspecified type (Primary Dx) Social History Tobacco Use Types Packs/Day Years Used Date Smoking Tobacco: Never Smokeless Tobacco: Never Alcohol Use Standard Drinks/Week Comments Yes 0 (1 standard drink = 0.6 oz pur e alcohol) Sex and Gender Information Value Date Recorded Sex Assigned at Not on file Legal Sex Male 3:11 AM REFRIGERATOR MOVER Gender Identity Not on file Sexual Orientation Not on file documented as of this encounter Plan of Treatment Not on file documented as of this encounter Procedures Procedure Name Priority Date/Time Associated Diagnosis Comments BASIC METABOLIC PANEL Routine 11/11/2019 11:09 AM REFRIGERATOR MOVER Hypertension, unspecified type documented in this encounter Results * Basic metabolic panel (11/11/2019 11:09 AM REFRIGERATOR MOVER) Glucose 96 65 - 139 mg/dL [facility] Comment: ? Non-fasting reference interval BUN 15 7 - 25 mg/dL [facility] Creatinine 0.80 0.70 - 1.25 mg/dL [facility] Comment: For patients >49 years of age, the reference limit for Creatinine is approximately 13% higher for people identified as -Sudanese. eGFR NON-AFR. NAMIBIAN 95 > OR = 60 mL/min/1 .73m2 [facility] EGFR 110 > OR = 60 mL/min/1 .73m2 [facility] BUN/creat ratio NOT APPLICABLE 6 - 22 (calc) [facility] Sodium 143 135 - 146 mmol/L [facility] Potassium, pl 4.4 3.5 - 5.3 mmol/L [facility] Chloride 105 98 - 110 mmol/L [facility] CO2 25 20 - 32 mmol/L [facility] Calcium 10.2 8.6 - 10.3 mg/dL [facility] Blood specimen (specimen) 11/11/2019 11:09 AM REFRIGERATOR MOVER 11/11/2019 11:09 AM REFRIGERATOR MOVER Narrative [facility] - 11/12/2019 3:11 AM REFRIGERATOR MOVER FASTING:NO FASTING: NO Resulting Agency Comment Performing Organization Information: ?Site ID: [id number] ?Name: [facility] ?Address: [id number] [place] [address] [place] [phone] ?Director: Mohamud Li D.O., MPH Hussain Mitchell MD LAB BLOOD ORDERABLES Zayra gupta Result [facility] [place] [address] [place] documented in this encounter Visit Diagnoses Diagnosis Hypertension, unspecified type- Primary documented in this encounter Care Teams Night Clerk Relationship Specialty Start Date End Date Gianluca Price MD PCP - General 06/18/17 documented as of this encounter
--- OUTSIDE RECORDS SUMMARY | 2024-10-05 02:53 | XMS_ITS | Encounter Summary ---
Author Organization [facility] Address [address] [place] [address] Phone Care Team Providers Care Grating Machine Operator Name Role Phone Gianluca Price MD Primary Care Provider Encounter Details Date Type Department Care Team (Late st Contact Info) Description 11/23/[address] Orders [address] [facility] Cardiology [address] [facility] Advanced Medicine 8th [place] [address] [place] [address] Hussain Mitchell MD [address] [place], [place] [id number] Triple vessel coronary artery disease (Primary Dx) Social History Tobacco Use Types Packs/Day Years Used Date Smoking Tobacco: Never Smokeless Tobacco: Never Alcohol Use Standard Drinks/Week Comments Yes 0 (1 standard drink = 0.6 oz pur e alcohol) Sex and Gender Information Value Date Recorded Sex Assigned at Not on file Legal Sex Male 3:11 AM PAINT SPRAYER SANDBLASTER Gender Identity Not on file Sexual Orientation Not on file documented as of this encounter Progress Notes * Verenice Caldwell RN - 11/23/2019 1:48 PM CST b T SPRAYER SANDBLASTER documented in this encounter Plan of Treatment Not on file documented as of this encounter Procedures Procedure Name Priority Date/Time Associated Diagnosis Comments CBC WITH AUTO DIFFERENTIAL Routine 11/25/2019 10:48 AM PAINT SPRAYER SANDBLASTER Triple vessel coronary artery disease documented in this encounter Results * CBC with auto differential (11/25/2019 10:48 AM PAINT SPRAYER SANDBLASTER) WBC 8.4 3.8 - 10.8 Thousand/u L [facility] RBC, POC 5.18 4.20 - 5.80 Million/uL [facility] Hgb 15.5 13.2 - 17.1 g/dL [facility] Hct 46.0 38.5 - 50.0 % [facility] MCV 88.8 80.0 - 100.0 fL [facility] MCH 29.9 27.0 - 33.0 pg [facility] MCHC 33.7 32.0 - 36.0 g/dL [facility] Rdw 13.1 11.0 - 15.0 % [facility] Platelets 326 140 - 400 Thousand/u L [facility] MPV 11.9 7.5 - 12.5 fL [facility] Neutrophils, abs 5,804 1,500 - 7,800 cells/uL [facility] Lymphocytes, abs 1,655 850 - 3,900 cells/uL [facility] Monocyte abs 756 200 - 950 cells/uL [facility] Eosinophils, abs 118 15 - 500 cells/uL [facility] Basophils, abs 67 0 - 200 cells/uL [facility] Neutrophils 69.1 % [facility] Lymphocyte pct 19.7 % [facility] Monocytes 9.0 % [facility] Eosinophils 1.4 % [facility] Basophils 0.8 % [facility] Blood specimen (specimen) 11/25/2019 10:48 AM PAINT SPRAYER SANDBLASTER 11/25/2019 10:49 AM PAINT SPRAYER SANDBLASTER Narrative Resulting Agency Comment Performing Organization Information: ?Site ID: [id number] ?Name: [facility] ?Address: [address] [phone] ?Director: Mohamud Li D.O., MPH Hussain Mitchell MD LAB BLOOD ORDERABLES Zayra gupta Result [facility] [place] documented in this encounter Visit Diagnoses Diagnosis Triple vessel coronary artery disease- Primary Coronary atherosclerosis of unspecified type of vessel, [place] or graft documented in this encounter Care Teams Grating Machine Operator Relationship Specialty Start Date End Date Gianluca Price MD PCP - General 06/18/17 documented as of this encounter
--- OUTSIDE RECORDS SUMMARY | 2024-10-05 02:53 | XMS_ITS | Encounter Summary ---
Author Organization [facility] Address [address] [place] [address] Phone Care Team Providers Care Service Liaison Representative Name Role Phone Gianluca Price MD Primary Care Provider Encounter Details Date Type Department Care Team (Late st Contact Info) Description 11/23/2019 Telephone [facility] Cardiology [address] [facility] Advanced [facility] 8th [place] [address] [place] [address] Hussain Sal MD [address] [place], [place] [id number] Social History Tobacco Use Types Packs/Day Years Used Date Smoking Tobacco: Never Smokeless Tobacco: Never Alcohol Use Standard Drinks/Week Comments Yes 0 (1 standard drink = 0.6 oz pur e alcohol) Sex and Gender Information Value Date Recorded Sex Assigned at Not on file Legal Sex Male 3:11 AM MUSIC VIDEO DIRECTOR Gender Identity Not on file Sexual Orientation Not on file documented as of this encounter Miscellaneous Notes * Telephone Encounter - Hussain Sal MD - 11/30/2019 3:36 AM MUSIC VIDEO DIRECTOR Ok thanks. We will evaluate in cathlab today C VIDEO DIRECTOR * Telephone Encounter - Verenice Caldwell RN - 11/23/2019 1:49 PM CST Pt states he has noted some blood in his stool since starting the eliquis. States it's just a little on the tissue and a few drops in the toilet bowl. I asked him to get a CBC drawn; he will do that in the next day or two. C VIDEO DIRECTOR * Telephone Encounter - Amina Cobb - 11/23/2019 10:57 AM CST SAL PT REQ CALL BACK,PLS CALL C VIDEO DIRECTOR documented in this encounter Plan of Treatment Not on file documented as of this encounter Visit Diagnoses Not on filedocumented in this encounter Care Teams Service Liaison Representative Relationship Specialty Start Date End Date Gianluca Price MD PCP - General 06/18/17 documented as of this encounter
--- OUTSIDE RECORDS SUMMARY | 2024-10-05 02:53 | XMS_ITS | Encounter Summary ---
Author Organization [facility] Address [address] [place] [address] Phone Care Team Providers Care Burglar Alarm Mechanic Name Role Phone Gianluca Price MD Primary Care Provider Reason for Referral * Cardiology (Routine) - Closed Specialty Diagnoses / Procedures Referred By Contac t Referred To Contact Diagnoses Atrial fibrillation, unspecified type (HCC) Procedures Transesophageal Echocardiogram W Possible Cardioversion Hussain Sal MD Phone: tel: fax: [facility] [address] [place] [address] Referral ID Status Reason Start Date Expiration Date Visits Re quested Visits Authorized [id number] Closed 10/22/2019 05/02/2021 1 1 UNITY CENTER WORKER Encounter Details Date Type Department Care Team (Late st Contact Info) Description 10/22/2019 Orders Only [facility] Cardiology [address] [facility] 8th [place] [address] [place] [address] Hussain Sal MD [address] [place] [address] Atrial fibrillation, unspecified type (CMS/HCC) (Primary Dx) Social History Tobacco Use Types Packs/Day Years Used Date Smoking Tobacco: Never Smokeless Tobacco: Never Alcohol Use Standard Drinks/Week Comments Yes 0 (1 standard drink = 0.6 oz pur e alcohol) Sex and Gender Information Value Date Recorded Sex Assigned at Not on file Legal Sex Male 3:11 AM COMMUNITY CENTER WORKER Gender Identity Not on file Sexual Orientation Not on file documented as of this encounter Ordered Prescriptions Prescription Sig Dispense Quantity Refills Last Filled Start Date End Date apixaban (ELIQUIS) 5 mg tablet Take 1 tablet (5 mg total) by mouth 2 (two) times a day 60 tablet 6 10/22/2019 2019 documented in this encounter Plan of Treatment Not on file documented as of this encounter Results * TRANSESOPHAGEAL ECHO (WILMER) W DOPPLER/CF W CARDIOVERSION (11/05/2019 10:26 AM COMMUNITY CENTER WORKER) Anatomical Region Laterality Modality Echocardiography 11/05/2019 10:0 0 AM COMMUNITY CENTER WORKER Narrative 11/05/2019 3:44 PM COMMUNITY CENTER WORKER Patient name: Du Anderson Date of test: 11/05/2019 Date of : 1955 () [facility] #: [id number] ?Location: [facility] Cardiac Diagnostic Lab Interpreted by: Omayra Lockhart MD Conical Mixer: Anil Ramos MD RN: Reason for Test: rule out thrombus/afib Study quality: Technically good Referring Physician: HUSSAIN SAL MD Contrast Agent: Aortic valve: tricuspid, and is mildly thickened, and the motion Normal Aortic root: Normal ? Aortic Arch: Mild Atherosclerosis Ascending Aorta: Mild Atherosclerosis ? Descending Aorta: Mild Atherosclerosis Pulmonic valve: Normal ? Pulmonary Artery: Normal Pulmonary vein: Normal Mitral valve: minimally thickened, motion Normal, and annulus is mildly calcified Tricuspid valve: Normal, Pulmonic valve: Normal Valvular vegetation: none seen, Mass/Thrombinone seen LA Appendage: No thrombus Wall Motion Scoring (1=Normal 2=Hypo 3=Akinetic 4=Dyskin. 5=Aneurysm 0=Not visualized) Short [place]-Gastric:=2 S=2 I=2 P=2 L=2 A=2 Long [place]-Gastric:BP=2 BA=2 MP=2 MA=2 AP=2 AA=2 Chamber Dimensions: RA: markedly increased LA: Moderately increased, 5.8 cm RV: LV: LV function: Moderate global left ventricular dysfunction. RV function: Normal Pericardium: No pericardial effusion seen Diastolic function: ??Atrial Septum: Lipomatous Hypertrophy Wall Thickness: RV: Normal LV: Normal Sedation/Tolerance: ??Sedation: WILMER performed with intravenous sedation. ??[employer] Admin: ?160 mg of propofol boluses given ??Tolerance: Patient tolerated procedure without difficulty. Doppler/CF results Aortic Value - Regurgitation: No AR seen Mitral Valve - Regurgitation: Mod-severe MR Aortic Value - Stenosis: Mitral Valve - Stenosis: no MS Aortic Value - Area: Mitral Value - Area: 5.3 Aortic Value - Pressure Gradient: Mitral Value - Pressure Gradient: Aortic Value - Pressure Gradient - Peak: Tricuspid: moderate TV regurgitation PA Pressure: MV ERO: 0.32 cm2 Regurg. Volume: 44 mL/beat Regurg. Fraction: 0 % Complication: None Doppler/CF comments No AR seen, Mod-severe MR, no MS, moderate TV regurgitation, trace NH. ? WILMER Summary ? Anil Ramos MD performed the WILMER probe placement with Omayra Lockhart MD present. In afib at the beginning of the study. Normal LV size and moderate LV systolic dysfunction, estimated LVEF 30-40%. Normal RV size and systolic function. Marked biatrial enlargement. LINK without thrombus but with decreased emptying velocities. Atherosclerotic aorta. Moderate-severe, central MR (ERO: 0.32, RVol: 44) without systolic flow reversal in the pulmonary veins. Mitral valve area 5.3 cm2 on 3D planimetry. Moderate TR. No other significant valve abnormalities. Patient was cardioverted successfully to sinus rhythm with 200 J shock. Unfortunately, patient converted back to atrial fibrillation within 3 min and was again successfully cardioverted to sinus rhythm with 300 J shock; remained in sinus rhythm until discharge. 3D Imaging: MV max V: 4.58, MV VTI: 138 cm. MV vena contracta 0.58. This study was supervised and interpreted by Omayra Lockhart MD Confirmed on ??11/05/2019 - 15:44:33 by Omayra Lockhart MD ?? Human Resources Team Member: Anil Ramos MD By signing this report, the attending mold maker helper certifies that he or she has personally supervised and interpreted the echocardiogram and has reviewed and or edited and agrees with the written comments contained within the report. Procedure Note Omayra Lockhart, - 11/05/2019 Patient name: Du Anderson Date of test: 11/05/2019 Date of : 1955 (M) [facility] #: [id number] Location: [facility] Cardiac Diagnostic Lab Interpreted by: Omayra Lockhart MD Conical Mixer: Anil Ramos MD RN: Reason for Test: rule out thrombus/afib Study quality: Technically good Referring Physician: HUSSAIN SAL MD Contrast Agent: Aortic valve: tricuspid, and is mildly thickened, and the motion Normal Aortic root: Normal Aortic Arch: Mild Atherosclerosis Ascending Aorta: Mild Atherosclerosis Descending Aorta: Mild Atherosclerosis Pulmonic valve: Normal Pulmonary Artery: Normal Pulmonary vein: Normal Mitral valve: minimally thickened, motion Normal, and annulus is mildly calcified Tricuspid valve: Normal, Pulmonic valve: Normal Valvular vegetation: none seen, Mass/Thrombinone seen LA Appendage: No thrombus Wall Motion Scoring (1=Normal 2=Hypo 3=Akinetic 4=Dyskin. 5=Aneurysm 0=Not visualized) Short [place]-Gastric:=2 S=2 I=2 P=2 L=2 A=2 Long [place]-Gastric:BP=2 BA=2 MP=2 MA=2 AP=2 AA=2 Chamber Dimensions: RA: markedly increased LA: Moderately increased, 5.8 cm RV: LV: LV function: Moderate global left ventricular dysfunction. RV function: Normal Pericardium: No pericardial effusion seen Diastolic function: Atrial Septum: Lipomatous Hypertrophy Wall Thickness: RV: Normal LV: Normal Sedation/Tolerance: Sedation: WILMER performed with intravenous sedation. Meds Admin: 160 mg of propofol boluses given Tolerance: Patient tolerated procedure without difficulty. Doppler/CF results Aortic Value - Regurgitation: No AR seen Mitral Valve - Regurgitation: Mod-severe MR Aortic Value - Stenosis: Mitral Valve - Stenosis: no MS Aortic Value - Area: Mitral Value - Area: 5.3 Aortic Value - Pressure Gradient: Mitral Value - Pressure Gradient: Aortic Value - Pressure Gradient - Peak: Tricuspid: moderate TV regurgitation PA Pressure: MV ERO: 0.32 cm2 Regurg. Volume: 44 mL/beat Regurg. Fraction: 0 % Complication: None Doppler/CF comments No AR seen, Mod-severe MR, no MS, moderate TV regurgitation, trace NH. WILMER Summary Anil Ramos MD performed the WILMER probe placement with Omayra Lockhart MD present. In afib at the beginning of the study. Normal LV size and moderate LV systolic dysfunction, estimated LVEF 30-40%. Normal RV size and systolic function. Marked biatrial enlargement. LINK without thrombus but with decreased emptying velocities. Atherosclerotic aorta. Moderate-severe, central MR (ERO: 0.32, RVol: 44) without systolic flow reversal in the pulmonary veins. Mitral valve area 5.3 cm2 on 3D planimetry. Moderate TR. No other significant valve abnormalities. Patient was cardioverted successfully to sinus rhythm with 200 J shock. Unfortunately, patient converted back to atrial fibrillation within 3 min and was again successfully cardioverted to sinus rhythm with 300 J shock; remained in sinus rhythm until discharge. 3D Imaging: MV max V: 4.58, MV VTI: 138 cm. MV vena contracta 0.58. This study was supervised and interpreted by Omayra Lockhart MD Confirmed on 11/05/2019 - 15:44:33 by Omayra Lockhart MD Human Resources Team Member: Anil Ramos MD By signing this report, the attending mold maker helper certifies that he or she has personally supervised and interpreted the echocardiogram and has reviewed and or edited and agrees with the written comments contained within the report. Hussain Mejia Sal MD CV ECHO PROCEDURES Final Result documented in this encounter Visit Diagnoses Diagnosis Atrial fibrillation, unspecified type (HCC)- Primary Atrial fibrillation, unspecified type (HCC) Abnormal cardiovascular stress test Other nonspecific abnormal cardiovascular system function study Shortness of breath documented in this encounter Discontinued Medications Medication Sig Discontinue Reason Start Date End Da te aspirin 81 mg tablet Take 81 mg by mouth daily. Other 10/22/2019 documented as of this encounter Care Teams Burglar Alarm Mechanic Relationship Specialty Start Date End Date Gianluca Price MD PCP - General 06/18/17 documented as of this encounter
--- OUTSIDE RECORDS SUMMARY | 2024-10-05 02:53 | XMS_ITS | Encounter Summary ---
Author Organization [facility] Address [address] [place] [address] Phone Care Team Providers Care Maintenance Representative Name Role Phone Gianluca Price MD Primary Care Provider Encounter Details Date Type Department Care Team (Late st Contact Info) Description 08/05/2020 Telephone [facility] Cardiology [address] 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 CLERK Gender Identity Not on file Sexual Orientation Not on file Occupation Industry Job Start Date Job End Date Retired Not on file Not on file Not on file documented as of this encounter Miscellaneous Notes * Telephone Encounter - Lori Hernandez - 08/05/2020 2:44 PM CDT JONELLE STATES RETURNING CALL REGARDING TEST RESULTS documented in this encounter Plan of Treatment Not on file documented as of this encounter Visit Diagnoses Not on filedocumented in this encounter Care Teams Maintenance Representative Relationship Specialty Start Date End Date Gianluca Price MD PCP - General 06/18/17 documented as of this encounter
--- OUTSIDE RECORDS SUMMARY | 2024-10-05 02:53 | XMS_ITS | Encounter Summary ---
Author Organization [facility] Care Team Providers Care Bin Operator Name Role Phone Gianluca Price MD Primary Care Provider Encounter Details Date Type Department Care Team (Latest Contact Info) Description 11/05/2019 Travel Social History Tobacco Use Types Packs/Day Years Used Date Smoking Tobacco: Never Smokeless Tobacco: Never Alcohol Use Standard Drinks/Week Comments Yes 0 (1 standard drink = 0.6 oz pur e alcohol) Sex and Gender Information Value Date Recorded Sex Assigned at Not on file Legal Sex Male 3:11 AM CLINICAL STUDIES SPECIALIST Gender Identity Not on file Sexual Orientation Not on file documented as of this encounter Plan of Treatment Not on file documented as of this encounter Visit Diagnoses Not on filedocumented in this encounter Care Teams Bin Operator Relationship Specialty Start Date End Date Gianluca Price MD PCP - General 06/18/17 documented as of this encounter
--- OUTSIDE RECORDS SUMMARY | 2024-10-05 02:53 | XMS_ITS | Encounter Summary ---
Author Organization [facility] Address [address] [place] [address] Phone Care Team Providers Care Sales Service Coordinator Name Role Phone Gianluca Price MD Primary Care Provider Encounter Details Date Type Department Care Team (Late st Contact Info) Description 10/22/2019 Telephone [facility] Cardiology [address] [facility] Advanced [facility] 8th [place] [address] [place] [address] Hussain Sal MD [address] [place], [place] [id number] Social History Tobacco Use Types Packs/Day Years Used Date Smoking Tobacco: Never Smokeless Tobacco: Never Alcohol Use Standard Drinks/Week Comments Yes 0 (1 standard drink = 0.6 oz pur e alcohol) Sex and Gender Information Value Date Recorded Sex Assigned at Not on file Legal Sex Male 3:11 AM TECHNICAL SUPPORT ENGINEER Gender Identity Not on file Sexual Orientation Not on file documented as of this encounter Miscellaneous Notes * Telephone Encounter - Verenice Caldwell RN - 10/22/2019 2:23 PM CST I spoke to pt regarding Dr. Sal's recs; verbalizes understanding. Scheduled for WILMER/CV 11/05 6am arrival Scripts sent to rx NICAL SUPPORT ENGINEER * Telephone Encounter - Hussain Sal MD - 10/22/2019 2:11 PM TECHNICAL SUPPORT ENGINEER Please stop aspirin and continue Plavix 75 mg daily and start Eliquis 5 mg BID NICAL SUPPORT ENGINEER * Telephone Encounter - Verenice Caldwell RN - 10/22/2019 1:05 PM CST Continue plavix/ASA? NICAL SUPPORT ENGINEER * Telephone Encounter - Hussain Sal MD - 10/22/2019 12:21 PM TECHNICAL SUPPORT ENGINEER I spoke with them at [facility], he is in AFib with RVR. This is a new diagnosis for him. Please do thefollowin. They are cancelling the surgery and will be rescheduling the knee surgery. 2. Please start Eliquis 5 mg b.i.d. 3. Please schedule WILMER guided cardioversion, since I'm assuming this is relatively recent onset AFib, and he will have a good chance of cardioversion to normal sinus rhythm. Thanks Hussain NICAL SUPPORT ENGINEER * Telephone Encounter - Verenice Caldwell RN - 10/22/2019 12:07 PM CST Thu from surgery center will be calling you; I transferred the call to the microbiology lab assistant front desk team member NICAL SUPPORT ENGINEER * Telephone Encounter - Hussain Sal MD - 10/22/2019 12:03 PM TECHNICAL SUPPORT ENGINEER How elevated is the heart rate? Can you please find out what the vital signs are? I can be reached in the cardiac catheterization lab room 4, if you need to reach me urgently. Thank you. Hussain NICAL SUPPORT ENGINEER * Telephone Encounter - Verenice Caldwell RN - 10/22/2019 11:54 AM CST Please page Hussain with this NICAL SUPPORT ENGINEER * Telephone Encounter - Vickie Ann - 10/22/2019 11:45 AM TECHNICAL SUPPORT ENGINEER JONELLE SAL HAS ALREADY GIVEN CLEARANCE FOR PT'S UPCOMING SURGERY BUT WANTS TO GET RECOMMENDATIONS. PT HAS IRREGULAR HEART RATE, EKG SHOWING AFIB, SLIGHTLY ELEVATED HEART RATE. THEY WILL KEEP PT THERE UNTIL DR. SAL CALLS NICAL SUPPORT ENGINEER documented in this encounter Plan of Treatment Not on file documented as of this encounter Visit Diagnoses Not on filedocumented in this encounter Care Teams Sales Service Coordinator Relationship Specialty Start Date End Date Gianluca Price MD PCP - General 06/18/17 documented as of this encounter
--- OUTSIDE RECORDS SUMMARY | 2024-10-05 02:53 | XMS_ITS | Encounter Summary ---
Author Organization [facility] Address [address] [place] [address] Care Team Providers Care Director Of Diversity And Inclusion Name Role Phone Gianluca Price MD Primary Care Provider Encounter Details Date Type Department Care Team (Late st Contact Info) Description 06/07/2020 Orders Only [facility] [place] [address] [facility] [address] [place] [address] Lai Sanchez MD [address] [place] [address] Low back pain, unspecified back pain laterality, unspecified chronicity, unspecified whether sciatica present (Primary Dx) Social History Tobacco Use Types [...] on file Legal Sex Male 3:11 AM EDUCATIONAL MANAGER Gender Identity Not on file Sexual Orientation Not on file Occupation Industry Job Start Date Job End Date Retired Not on file Not on file Not on file documented as of this encounter Plan of Treatment Not on file documented as of this encounter Visit Diagnoses Diagnosis Low back pain, unspecified back pain laterality, unspecified chronicity, unspecified whether sciatica present- Primary documented in this encounter Care Teams Director Of Diversity And Inclusion Relationship Specialty Start Date End Date Gianluca Price MD PCP - General 06/18/17 documented as of this encounter
--- OUTSIDE RECORDS SUMMARY | 2024-10-05 02:53 | XMS_ITS | Encounter Summary ---
Author Organization [facility] Address [address] [facility] [address] [place] [address] Phone Care Team Providers Care Regional Extension Service Specialist Name Role Phone Gianluca Price MD Primary Care Provider Reason for Referral * Diagnostic Imaging (Routine) - Closed Specialty Diagnoses / Procedures Referred By Antonietta livingston Referred To Contact Radiology Diagnoses Triple vessel coronary artery disease Procedures PET/CT Myocardial Perfusion Imaging (Multiple) Hussain Mitchell MD Phone: tel: fax: Referral ID Status Reason Start Date Expiration Date Visits Re quested Visits Authorized [id number] Closed 11/06/2019 05/17/2021 2 2 PICKUP DRIVER Encounter Details Date Type Department Care Team (Late st Contact Info) Description 11/06/2019 Orders Only [facility] Cardiology [address] [facility] Advanced Medicine 8th [place] [address] [place] [address] Hussain Mitchell MD [address] [place] [address] Triple vessel coronary artery disease (Primary Dx) Social History Tobacco Use Types Packs/Day Years Used Date Smoking Tobacco: Never Smokeless Tobacco: Never Alcohol Use Standard Drinks/Week Comments Yes 0 (1 standard drink = 0.6 oz pur e alcohol) Sex and Gender Information Value Date Recorded Sex Assigned at Not on file Legal Sex Male 3:11 AM MILK PICKUP DRIVER Gender Identity Not on file Sexual Orientation Not on file documented as of this encounter Plan of Treatment Not on file documented as of this encounter Results * PET/CT Myocardial Perfusion Imaging (Multiple) (11/19/2019 3:37 PM MILK PICKUP DRIVER) Anatomical Region Laterality Modality Body N/A Positron Emissio n Tomography (PET) 11/20/2019 10:3 1 AM MILK PICKUP DRIVER Impressions 11/20/2019 10:44 AM MILK PICKUP DRIVER 1. ??Evidence of moderate size and - severe ischemia in the basal- and mid-segment of the ??anterior wall extending into the anterolateral wall. 2. ??Normal rest perfusion. 3. ??Left ventricular size and systolic function were not evaluated due to presence of atrial fibrillation. 4. ??Flow quantification with more pronounced reductions in hyperemic MBF and MFR in the described ischemic areas, while stress related flows and MFR also reduced in the remote regions. ? (For detailed flow values, please see table in results). . ??Alin Minor ?? also participated in the interpretation of this examination. Dictated by: Sharif Nesbitt MD, PHD The radiology attending physician has personally reviewed this study, and had reviewed and/or edited this written report and agrees with it. Electronically signed by: Kj Shelley M.D. Narrative 11/20/2019 10:44 AM MILK PICKUP DRIVER EXAMINATION: MYOCARDIAL PET/CT PERFUSION IMAGING (STRESS/REST) DATE OF STUDY: 11/19/2019 SCANNER: mCT RADIOPHARMACEUTICAL: 10.5 mCi N-13 ammonia i.v., ??11.2 mCi N-13 ammonia i.v., Injection site: Right antecubital HISTORY:63-year-old male with coronary artery disease status post PCI of trifurcating left main circumflex, inferior ramus, superior ramus, and ostial LAD in a staged manner with multiple CRISTHIAN stents in 2016. The patient also has hypertension, morbid obesity (BMI 40 kg/m2), obstructive sleep apnea and dyslipidemia and is undergoing evaluation for knee surgery.. ??Evaluate for ischemia and/or microvascular dysfunction. TECHNIQUE: Both stress and rest imaging were performed, in the following order: stress/rest. ??The stress portion of the study was performed under the supervision of the Nuclear Medicine Attending Physician. The resting electrocardiographic prior to the start of the test was negative ??for ischemia but showing atrial fibrillation. ?The electrocardiographic during infusion of the stress agent was negative for ischemia. ??A full report of the ECG findings can be found in the MUSE reporting system. Regadenoson Stress and hemodynamics: The patient received 0.4 mg of A2A adenosine receptor agonist regadenoson (Lexiscan), infused intravenously over 10 seconds, followed approximately 20 seconds later by tracer infusion. Afib with ventricular response of 107 beats per minute and aguilar to a maximum of 120 ??beats per minute two minutes post Lexiscan injection. ??Resting blood pressure was 130/84 ??mmHg and dropped to a livier of 99/71 mm Hg. The test was stopped at the completion of the protocol. The patient reported no symptoms during vasodilation. Imaging: Stress PET/CT myocardial perfusion images were obtained after tracer injection at the peak effect of the drug. ?A minimum of 40 minutes later, rest PET/CT myocardial perfusion images were obtained after resting tracer injection. ?? COMPARISON: None FINDINGS: There is moderate size and - severe reversible radiotracer uptake in the basal- and mid-segment of the ??anterior wall extending into the anterolateral wall to signify ischemia. Normal rest perfusion. Because of the presence of atrial fibrillation rhythm during the gated-imaging, left ventricle wall motion and ejection fraction are unable to be assessed. Quantitative analysis of myocardial blood flow (MBF) in ml/g/min and myocardial flow reserve (MFR), calculated using 4DM software: ? MBF-stress ?MBF-rest ?MFR LAD: ? 1.51 ?1.15 ?1.32 ?? LCx: ? 1.51 ? 0.89 ?1.69 ? RCA: ? 1.70 ? 0.87 ?1.94 Global: ?1.52 ? 0.91 ?1.67 ?? (Normal stress MBF>1.80 ml/g/min and MFR>2.0) Incidental findings on the CT images: There is atherosclerotic calcification in the aorta and coronary arteries with stents seen in the LAD and left main circumflex. There is gallbladder sludge. ??There are multilevel degenerative change in the thoracic spine. Procedure Note Kj Shelley MD - 11/20/2019 EXAMINATION: MYOCARDIAL PET/CT PERFUSION IMAGING (STRESS/REST) DATE OF STUDY: 11/19/2019 SCANNER: mCT RADIOPHARMACEUTICAL: 10.5 mCi N-13 ammonia i.v., 11.2 mCi N-13 ammonia i.v., Injection site: Right antecubital HISTORY:63-year-old male with coronary artery disease status post PCI of trifurcating left main circumflex, inferior ramus, superior ramus, and ostial LAD in a staged manner with multiple CRISTHIAN stents in 2016. The patient also has hypertension, morbid obesity (BMI 40 kg/m2), obstructive sleep apnea and dyslipidemia and is undergoing evaluation for knee surgery.. Evaluate for ischemia and/or microvascular dysfunction. TECHNIQUE: Both stress and rest imaging were performed, in the following order: stress/rest. The stress portion of the study was performed under the supervision of the Nuclear Medicine Attending Physician. The resting electrocardiographic prior to the start of the test was negative for ischemia but showing atrial fibrillation. The electrocardiographic during infusion of the stress agent was negative for ischemia. A full report of the ECG findings can be found in the MUSE reporting system. Regadenoson Stress and hemodynamics: The patient received 0.4 mg of A2A adenosine receptor agonist regadenoson (Lexiscan), infused intravenously over 10 seconds, followed approximately 20 seconds later by tracer infusion. Afib with ventricular response of 107 beats per minute and aguilar to a maximum of 120 beats per minute two minutes post Lexiscan injection. Resting blood pressure was 130/84 mmHg and dropped to a livier of 99/71 mm Hg. The test was stopped at the completion of the protocol. The patient reported no symptoms during vasodilation. Imaging: Stress PET/CT myocardial perfusion images were obtained after tracer injection at the peak effect of the drug. A minimum of 40 minutes later, rest PET/CT myocardial perfusion images were obtained after resting tracer injection. COMPARISON: None FINDINGS: There is moderate size and - severe reversible radiotracer uptake in the basal- and mid-segment of the anterior wall extending into the anterolateral wall to signify ischemia. Normal rest perfusion. Because of the presence of atrial fibrillation rhythm during the gated-imaging, left ventricle wall motion and ejection fraction are unable to be assessed. Quantitative analysis of myocardial blood flow (MBF) in ml/g/min and myocardial flow reserve (MFR), calculated using 4DM software: MBF-stress MBF-rest MFR LAD: 1.51 1.15 1.32 LCx: 1.51 0.89 1.69 RCA: 1.70 0.87 1.94 Global: 1.52 0.91 1.67 (Normal stress MBF>1.80 ml/g/min and MFR>2.0) Incidental findings on the CT images: There is atherosclerotic calcification in the aorta and coronary arteries with stents seen in the LAD and left main circumflex. There is gallbladder sludge. There are multilevel degenerative change in the thoracic spine. IMPRESSION: 1. Evidence of moderate size and [...] MFR also reduced in the remote regions. (For detailed flow values, please see table in results). Dr. Alin Minor also participated in the interpretation of this examination. Dictated by: Sharif Nesbitt MD, PHD The radiology attending physician has personally reviewed this study, and had reviewed and/or edited this written report and agrees with it. Electronically signed by: Kj Shelley M.D. Hussain Mejia Mitchell MD IMG PET PROCEDURES Final Result documented in this encounter Visit Diagnoses Diagnosis Triple vessel coronary artery disease- Primary Coronary atherosclerosis of unspecified type of vessel, grayling or graft Triple vessel coronary artery disease Coronary atherosclerosis of unspecified type of vessel, grayling or graft documented in this encounter Care Teams Regional Extension Service Specialist Relationship Specialty Start Date End Date Gianluca Price MD PCP - General 06/18/17 documented as of this encounter
--- OUTSIDE RECORDS SUMMARY | 2024-10-05 02:53 | XMS_ITS | Encounter Summary ---
Author Organization [facility] Address [address] [place] [address] Phone Care Team Providers Care Workforce Planning Analyst Name Role Phone Gianluca Price MD Primary Care Provider Encounter Details Date Type Department Care Team (Late st Contact Info) Description 08/08/2020 Orders Only [facility] Cardiology [address] [facility] Advanced Medicine 8th [place] [address] [place] [address] Hussain Mitchell MD [address] [place] [address] Social History Tobacco Use Types [...] file 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 Gender Identity Not on file Sexual Orientation Not on file Occupation Industry Job Start Date Job End Date Retired Not on file Not on file Not on file documented as of this encounter Ordered Prescriptions Prescription Sig Dispense Quantity Refills Last Filled Start Date End Date furosemide (LASIX) 20 mg tablet Take 2 tablets (40 mg total) by mouth 2 (two) times a day 360 tablet 3 08/08/2020 1 documented in this encounter Plan of Treatment Not on file documented as of this encounter Visit Diagnoses Not on filedocumented in this encounter Discontinued Medications Medication Sig Discontinue Reason Start Date End Da te furosemide (LASIX) 40 mg tablet Take 20 mg by mouth 2 (two) times a day 08/08/2020 documented as of this encounter Care Teams Workforce Planning Analyst Relationship Specialty Start Date End Date Gianluca Price MD PCP - General 06/18/17 documented as of this encounter
--- OUTSIDE RECORDS SUMMARY | 2024-10-05 02:53 | XMS_ITS | Encounter Summary ---
Author Organization [facility] Address [address] [place] [address] Phone Care Team Providers Care Belt Machine Operator Name Role Phone Gianluca Price MD Primary Care Provider Encounter Details Date Type Department Care Team (Late st Contact Info) Description 11/13/2019 Telephone [facility] Cardiology [address] [facility] Advanced [facility] 8th [place] [address] [place] [address] Hussain Mitchell MD [address] [place], [place] [id number] Social History Tobacco Use Types Packs/Day Years Used Date Smoking Tobacco: Never Smokeless Tobacco: Never Alcohol Use Standard Drinks/Week Comments Yes 0 (1 standard drink = 0.6 oz pur e alcohol) Sex and Gender Information Value Date Recorded Sex Assigned at Not on file Legal Sex Male 3:11 AM DENTAL BILLING SPECIALIST Gender Identity Not on file Sexual Orientation Not on file documented as of this encounter Miscellaneous Notes * Telephone Encounter - Hussain Mitchell MD - 11/18/2019 9:27 AM DENTAL BILLING SPECIALIST Okay thanks AL BILLING SPECIALIST * Telephone Encounter - Nahed Zafar RN - 11/18/2019 9:08 AM DENTAL BILLING SPECIALIST Spoke with pt re: instructions for CT tomorrow. Pt asking what medications he should take prior to these scan. Pt transferred to PET/CT to have question answered. Pt also states that he is awaiting these results to have him surgery scheduled and he is in a lot of pain. Assured pt that we will call him as soon as Dr. Mitchell reviews the results with his recs. Pt verbalizes understanding. No further questions. AL BILLING SPECIALIST * Telephone Encounter - Hill Harrison - 11/17/2019 4:03 PM CST Paula Patient calling with questions regarding upcoming procedure & stress test parameters. AL BILLING SPECIALIST * Telephone Encounter - Verenice Caldwell RN - 11/13/2019 2:22 PM CST Pt is taking tramadol 50mg every 6 hours for pain, prescribed by at [facility]. Pt needs note from you stating this is ok to continue send to his surgeon at [facility] so they will continue to refill. Pt had BMP this week-results in [employer]. AL BILLING SPECIALIST * Telephone Encounter - Vickie Ann - 11/13/2019 1:05 PM DENTAL BILLING SPECIALIST Paula He said he needs to talk to a pain medicine another doctor is recommending AL BILLING SPECIALIST documented in this encounter Plan of Treatment Not on file documented as of this encounter Visit Diagnoses Not on filedocumented in this encounter Care Teams Belt Machine Operator Relationship Specialty Start Date End Date Gianluca Price MD PCP - General 06/18/17 documented as of this encounter
--- OUTSIDE RECORDS SUMMARY | 2024-10-05 02:53 | XMS_ITS | Encounter Summary ---
Author Organization [facility] Address [address] [place] [address] Phone Care Team Providers Care Resident Associate Name Role Phone Gianluca Price MD Primary Care Provider Encounter Details Date Type Department Care Team (Late st Contact Info) Description 10/22/2019 Telephone [facility] Cardiology [address] [facility] Advanced [facility] 8th [place] [address] [place] [address] Hussain Mitchell MD [address] [place], [place] [id number] Social History Tobacco Use Types Packs/Day Years Used Date Smoking Tobacco: Never Smokeless Tobacco: Never Alcohol Use Standard Drinks/Week Comments Yes 0 (1 standard drink = 0.6 oz pur e alcohol) Sex and Gender Information Value Date Recorded Sex Assigned at Not on file Legal Sex Male 3:11 AM LARGE SHEETFED PRESS OPERATOR Gender Identity Not on file Sexual Orientation Not on file documented as of this encounter Miscellaneous Notes * Telephone Encounter - Verenice Caldwell RN - 10/22/2019 3:42 PM CST I spoke to pt regarding CV/WILMER. Pt verbalizes understanding and will call back with any further questions. E SHEETFED PRESS OPERATOR * Telephone Encounter - Lebron Veronica - 10/22/2019 3:05 PM CST Mitchell Pt calling saying he has a few additional questions about upcoming procedure. Pls call to discuss. E SHEETFED PRESS OPERATOR documented in this encounter Plan of Treatment Not on file documented as of this encounter Visit Diagnoses Not on filedocumented in this encounter Care Teams Resident Associate Relationship Specialty Start Date End Date Gianluca Price MD PCP - General 06/18/17 documented as of this encounter
--- OUTSIDE RECORDS SUMMARY | 2024-10-05 02:53 | XMS_ITS | Encounter Summary ---
Author Organization [facility] Address [address] [place] [address] Phone Care Team Providers Care Damage Appraiser Name Role Phone Gianluca Price MD Primary Care Provider Encounter Details Date Type Department Care Team (Late st Contact Info) Description 02/19/2020 Orders Only [facility] Cardiology [address] [facility] Advanced Medicine 8th [place] [address] [place] [address] Hussain Mitchell MD [address] [place], [place] [id number] Triple vessel coronary artery disease (Primary Dx) Social History Tobacco Use Types Packs/Day Years Used Date Smoking Tobacco: Never Smokeless Tobacco: Never Alcohol Use Standard Drinks/Week Comments Yes 0 (1 standard drink = 0.6 oz pur e alcohol) Sex and Gender Information Value Date Recorded Sex Assigned at Not on file Legal Sex Male 3:11 AM RESIDENCY DIRECTOR Gender Identity Not on file Sexual Orientation Not on file documented as of this encounter Plan of Treatment Not on file documented as of this encounter Procedures Procedure Name Priority Date/Time Associated Diagnosis Comments CBC WITH AUTO DIFFERENTIAL Routine 02/22/2020 1:06 PM CDT Triple vessel coronary artery disease documented in this encounter Results * CBC with auto differential (02/22/2020 1:06 PM CDT) WBC 7.8 3.8 - 10.8 Thousand/u L [facility] RBC, POC 4.75 4.20 - 5.80 Million/uL [facility] Hgb 14.5 13.2 - 17.1 g/dL [facility] Hct 43.5 38.5 - 50.0 % [facility] MCV 91.6 80.0 - 100.0 fL [facility] MCH 30.5 27.0 - 33.0 pg [facility] MCHC 33.3 32.0 - 36.0 g/dL [facility] Rdw 13.2 11.0 - 15.0 % [facility] Platelets 250 140 - 400 Thousand/u L [facility] MPV 11.6 7.5 - 12.5 fL [facility] Neutrophils, abs 5,008 1,500 - 7,800 cells/uL [facility] Lymphocytes, abs 1,755 850 - 3,900 cells/uL [facility] Monocyte abs 772 200 - 950 cells/uL [facility] Eosinophils, abs 195 15 - 500 cells/uL [facility] Basophils, abs 70 0 - 200 cells/uL [facility] Neutrophils 64.2 % [facility] Lymphocyte pct 22.5 % [facility] Monocytes 9.9 % [facility] Eosinophils 2.5 % [facility] Basophils 0.9 % [facility] Blood specimen (specimen) 02/22/2020 1:06 PM CDT 02/22/2020 1:07 PM CDT Narrative [facility] - 02/23/2020 5:36 AM CDT FASTING:NO FASTING: NO us Hussain Mitchell MD LAB BLOOD ORDERABLES Zayra l Result [facility] [id number] [address] [place] [phone] documented in this encounter Visit Diagnoses Diagnosis Triple vessel coronary artery disease- Primary Coronary atherosclerosis of unspecified type of vessel, [place] or graft documented in this encounter Care Teams Damage Appraiser Relationship Specialty Start Date End Date Gianluca Price MD PCP - General 06/18/17 documented as of this encounter
--- OUTSIDE RECORDS SUMMARY | 2024-10-05 02:53 | XMS_ITS | Encounter Summary ---
Author Organization [facility] Address [address] [place] [address] Phone Care Team Providers Care Butt Welder Name Role Phone Gianluca Price MD Primary Care Provider Encounter Details Date Type Department Care Team (Late st Contact Info) Description 08/18/2020 Telephone [facility] Cardiology [address] [facility] Advanced Medicine 8th [place] [address] [place] [address] Hussain Mitchell MD [address] [place] [address] Social History Tobacco Use Types [...] on file Legal Sex Male 3:11 AM THREAD MARKER Gender Identity Not on file Sexual Orientation Not on file Occupation Industry Job Start Date Job End Date Retired Not on file Not on file Not on file documented as of this encounter Miscellaneous Notes * Telephone Encounter - Coreen Rowley, - 08/18/2020 12:43 PM THREAD MARKER Clearance from filled out, signed, faxed, and conf rcv'd AD MARKER * Telephone Encounter - Lori Jefferson - 08/18/2020 9:06 AM CST cardiac clearance and holding medication CALLER NAME: PHYLLIS FACILITY NAME: [facility] [place] PHONE NUMBER: [phone] FAX NUMBER: [phone] TYPE OF SURGERY: CARPAL TUNNEL RELEASE -LT SIDE --GEN ANESTHESIA W/ LMA NAME OF SURGEON: DR LINWOOD MARCUS SCHEDULED FOR: 08/23/20 MEDICATION TO BE HELD: FOR DAYS COMMENTS: PHYLLIS WILL BE FAXING OVER RELEASE FORM AD MARKER documented in this encounter Plan of Treatment Not on file documented as of this encounter Visit Diagnoses Not on filedocumented in this encounter Care Teams Butt Welder Relationship Specialty Start Date End Date Gianluca Price MD PCP - General 06/18/17 documented as of this encounter
--- OUTSIDE RECORDS SUMMARY | 2024-10-05 02:53 | XMS_ITS | Encounter Summary ---
Author Organization [facility] Address [address] [place] [address] Phone Care Team Providers Care Revenue Enforcement Agent Name Role Phone Gianluca Price MD Primary Care Provider Reason for Visit * Diagnostic Imaging (Routine) - Closed Specialty Diagnoses / Procedures Referred By Contac t Referred To Contact Diagnoses Atrial fibrillation, unspecified type (HCC) Shortness of breath Hypertension, unspecified type Triple vessel coronary artery disease Hyperlipidemia, unspecified hyperlipidemia type Cardiovascular disease Procedures Transthoracic Echo Complete W Doppler/CF Hussain Sal MD Phone: tel: fax: [facility] (All Locations) Referral ID Status Reason Start Date Expiration Date Visits Re quested Visits Authorized [id number] Closed 07/05/2020 08/04/2021 1 1 Encounter Details Date Type Department Care Team (Latest Contact Info) Description 07/29/2020 12:00 PM CDT Ancillary Procedure [facility] Cardiology [address] [facility] [address] [place] [address] Atrial fibrillation, unspecified type (CMS/HCC); Shortness of breath; Hypertension, unspecified type; Triple vessel coronary artery disease; Hyperlipidemia, unspecified hyperlipidemia type; Cardiovascular disease Social History Tobacco Use Types Packs/Day [...] on file 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 Gender Identity Not on file Sexual Orientation Not on file Occupation Industry Job Start Date Job End Date Retired Not on file Not on file Not on file documented as of this encounter Plan of Treatment Not on file documented as of this encounter Procedures Procedure Name Priority Date/Time Associated Diagnosis Comments TRANSTHORACIC ECHO (TTE) COMPLETE W DOPPLER/CF W CONTRAST Routine 07/29/2020 1:43 PM CDT Atrial fibrillation, unspecified type (CMS/HCC) Shortness of breath Hypertension, unspecified type Triple vessel coronary artery disease Hyperlipidemia, unspecified hyperlipidemia type Cardiovascular disease documented in this encounter Results * TRANSTHORACIC ECHO (TTE) COMPLETE W DOPPLER/CF W CONTRAST (07/29/2020 1:43 PM CDT) Anatomical Region Laterality Modality Ultrasound 07/29/2020 12:0 0 PM CDT Narrative 07/29/2020 2:55 PM CDT Patient name: Du Anderson Date of test: 07/29/2020 Type of test: TTE w/Doppler Hospital #: [id number] Date of : 1955 (M) Medical Liaison: Genie Soria RDCS Referring Physician: HUSSAIN SAL MD Contrast Agent: 1.5 ml Optison Administered, (1.5 ml wasted). Contrast Administered by: Sydney Nunez RN Supervised/Interpreted by: Farhan Griffith MD Diagnosis: Location: [facility] Reason for test: Afib MV Structure: Normal, ?MV Motion: Normal, ?? Mitral Annulus: mildly calcified AV Structure: tricuspid and is Normal, ?? AV Motion: Normal Aotic root: Normal, ?TM: Normal, ?? PV: Normal Valvular Vegetations: none seen, ?Mass/Thrombi: none seen RA: Normal Measurements: ?M-Mode ?Normal ? Aotic Root: ? <3.8 ? LA: ? <4.0 ? RV: ? <2.8 ? LV(ED): ? <5.7 ? LV(ES): ? Variable ?2D Linear Normal ? Aotic Root: 3.4 cm ?<4.0 ? Ao Indexed: 1.3 cm/M2 <2.0 ? LA: ? <4.0 ? RV: ? 5.9 cm ?<4.2 ? LV(ED): ? 5.0 cm ?<5.9 ? LV(ES): ? 2.7 cm ?<4.0 ?2D Vol. ?? Normal ?Indexed ?? Indexed Normal RA: ? 125.0 ml ?46.3 ml/M2 ?11-39 ? LA: ? 100.0 ml ?37.0 ml/M2 ?16-34 ? RV: ? <12.7 ? LV(ED): ? 156.0 ml ??62-150 ?57.7 ml/M2 ?<75 ? LV(ES): ? 90.0 ml ?? 21-61 ? 33.3 ml/M2 ?<32 ?3D Vol. ? Indexed Normal LV(ED): ?<75 ? LV(ES): ?<32 ? LV EF: 42 % ?? (Normal: >=52%) ?? LV Septum: 1.3 cm ?(Normal: <1.0 cm) Wall Motion Scoring (1=Normal 2=Hypo 3=Akinetic 4=Dyskin./Aneurysm 0=Not visualized) Parasternal Long [place]:MAS=2 BAS=2 MIL=2 ALICJA=2 Parasternal Short [place]:MAS=2 MIS=2 ID=2 MIL=2 MAL=2 MA=2 Apical 4 Chambers:=2 MIS=2 BIS=2 BAL=2 MAL=2 AL=2 AC=2 Apical 2 Chambers:AI=2 ID=2 BI=2 BA=2 MA=2 AA=2 AC=2 LV Global Longitudinal Strain: RV Global Longitudinal Strain: LV Function: Mild Global reduction in LV Ejection Fraction (EF 42%) RV Function: Normal Septal Motion: Normal Pericardial Effusion: none seen Atrial Septum: Normal DOPPLER/COLOR FLOW DOPPLER RESULTS: Diastolic Function: Tricuspid Valve: mild TV regurgitation Pulmonic Valve: normal PV AV Regurgitation: No AR seen AV Stenosis: no AV Area: ??cm2 AV Pressure Gradient (mmHg): Mean: 0, Peak:0 MV Regurgitation: Mild MR MV Stenosis: no MS MV Area: ??cm2 MV Pressure Gradient (mmHg): Mean: 0 MV ERO: ??cm Regurg. Vol.: ??ml/beat Regurg. Frac.: ??% PA Pressure: 30 mmHg DOPPLER/COLOR FOLOW DOPPLER COMMENTS: No AR seen, Mild MR, no , no MS, mild TV regurgitation, normal PV. CONTRAST: 1.5 ml Optison Administered, (1.5 ml wasted). SUMMARY: AFib (HR 80-90bpm). Mild-mod global LV systolic dysfunction (LVEF 42%); mild LVE. Moderate LAE. Mild RVE; normal RV systolic function. Normal IVC. Normal PASP (est 30mmHg). Confirmed on ??07/29/2020 - 14:55:46 by Farhan Griffith MD By signing this report, the attending technical services representative certifies that he or she has personally supervised and interpreted the echocardiogram and has reviewed and or edited and agrees with the written comments contained within the report. Procedure Note Farhan Griffith MD - 07/29/2020 Patient name: Du Anderson Date of test: 07/29/2020 Type of test: TTE /[facility] #: [id number] Date of : 1955 (M) Medical Liaison: Genie Soria RDCS Referring Physician: HUSSAIN SAL MD Contrast Agent: 1.5 ml Optison Administered, (1.5 ml wasted). Contrast Administered by: Sydney Nunez, RN Supervised/Interpreted by: Farhan Griffith MD Diagnosis: Location: [facility] Reason for test: Afib MV Structure: Normal, MV Motion: Normal, Mitral Annulus: mildly calcified AV Structure: tricuspid and is Normal, AV Motion: Normal Aotic root: Normal, TM: Normal, PV: Normal Valvular Vegetations: none seen, Mass/Thrombi: none seen RA: Normal Measurements: M-Mode Normal Aotic Root: <3.8 LA: <4.0 RV: <2.8 LV(ED): <5.7 LV(ES): Variable 2D Linear Normal Aotic Root: 3.4 cm <4.0 Ao Indexed: 1.3 cm/M2 <2.0 LA: <4.0 RV: 5.9 cm <4.2 LV(ED): 5.0 cm <5.9 LV(ES): 2.7 cm <4.0 2D Vol. Normal Indexed Indexed Normal RA: 125.0 ml 46.3 ml/M2 11-39 LA: 100.0 ml 37.0 ml/M2 16-34 RV: <12.7 LV(ED): 156.0 ml 62-150 57.7 ml/M2 <75 LV(ES): 90.0 ml 21-61 33.3 ml/M2 <32 3D Vol. Indexed Normal LV(ED): <75 LV(ES): <32 LV EF: 42 % (Normal: >=52%) LV Septum: 1.3 cm (Normal: <1.0 cm) Wall Motion Scoring (1=Normal 2=Hypo 3=Akinetic 4=Dyskin./Aneurysm 0=Not visualized) Parasternal Long [place]:MAS=2 BAS=2 MIL=2 ALICJA=2 Parasternal Short [place]:MAS=2 MIS=2 ID=2 MIL=2 MAL=2 MA=2 Apical 4 Chambers:=2 MIS=2 BIS=2 BAL=2 MAL=2 AL=2 AC=2 Apical 2 Chambers:AI=2 ID=2 BI=2 BA=2 MA=2 AA=2 AC=2 LV Global Longitudinal Strain: RV Global Longitudinal Strain: LV Function: Mild Global reduction in LV Ejection Fraction (EF 42%) RV Function: Normal Septal Motion: Normal Pericardial Effusion: none seen Atrial Septum: Normal DOPPLER/COLOR FLOW DOPPLER RESULTS: Diastolic Function: Tricuspid Valve: mild TV regurgitation Pulmonic Valve: normal PV AV Regurgitation: No AR seen AV Stenosis: no AV Area: cm2 AV Pressure Gradient (mmHg): Mean: 0, Peak:0 MV Regurgitation: Mild MR MV Stenosis: no MS MV Area: cm2 MV Pressure Gradient (mmHg): Mean: 0 MV ERO: cm Regurg. Vol.: ml/beat Regurg. Frac.: % PA Pressure: 30 mmHg DOPPLER/COLOR FOLOW DOPPLER COMMENTS: No AR seen, Mild MR, no , no MS, mild TV regurgitation, normal PV. CONTRAST: 1.5 ml Optison Administered, (1.5 ml wasted). SUMMARY: AFib (HR 80-90bpm). Mild-mod global LV systolic dysfunction (LVEF 42%); mild LVE. Moderate LAE. Mild RVE; normal RV systolic function. Normal IVC. Normal PASP (est 30mmHg). Confirmed on 07/29/2020 - 14:55:46 by Farhan Griffith MD By signing this report, the attending technical services representative certifies that he or she has personally supervised and interpreted the echocardiogram and has reviewed and or edited and agrees with the written comments contained within the report. Result [facility] Hussain Sal MD CV ECHO PROCEDURES Final Result documented in this encounter Visit Diagnoses Diagnosis Atrial fibrillation, unspecified type (HCC) Shortness of breath Hypertension, unspecified type Triple vessel coronary artery disease Coronary atherosclerosis of unspecified type of vessel, [place] or graft Hyperlipidemia, unspecified hyperlipidemia type Cardiovascular disease Unspecified cardiovascular disease documented in this encounter Administered Medications Inactive Administered Medications - up to 3 most recent administrations Medication Order MAR Action Action Date Dose Rate Site perflutren protein-a (OPTISON) 3 mL in sodium chloride 0.9% 8 mL syringe 1-8 mL, intravenous, Once in imaging, contrast, Starting on Sat07/29/20 at 1335, For 1 dose, Intra-Procedure (CV) Given 07/29/2020 1:25 PM CDT 4 mL documented in this encounter Orders Medications Ordered That Laith ht Not Have Been Administered Count Last Ordered Date First Ordered Date perflutren protein-a (OPTISO N) 3 mL in sodium chloride 0.9% 8 mL syringe 1 07/29/2020 documented in this encounter Care Teams Revenue Enforcement Agent Relationship Specialty Start Date End Date Gianluca Price MD PCP - General 06/18/17 documented as of this encounter
--- OUTSIDE RECORDS SUMMARY | 2024-10-05 02:53 | XMS_ITS | Encounter Summary ---
Author Organization [facility] Address [address] [place] [address] Phone Care Team Providers Care Cost Control Supervisor Name Role Phone Gianluca Price MD Primary Care Provider Encounter Details Date Type Department Care Team (Late st Contact Info) Description 07/06/2020 Telephone [facility] Cardiology 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 He will get labs same day as echo; orders in chart. Refill for eliquis sent to his local rx. * Telephone Encounter - Josy Gaviria BS - 07/06/2020 11:20 AM CDT Mitchell Pt calling to speak w/ Verenice. Needing meds and blood test. documented in this encounter Plan of Treatment Not on file documented as of this encounter Visit Diagnoses Not on filedocumented in this encounter Discontinued Medications Medication Sig Discontinue Reason Start Date End Da te apixaban (ELIQUIS) 5 mg tablet Take 1 tablet (5 mg total) by mouth 2 (two) times a day Reorder 2019 07/06/2020 documented as of this encounter Care Teams Cost Control Supervisor Relationship Specialty Start Date End Date Gianluca Price MD PCP - General 06/18/17 documented as of this encounter
--- OUTSIDE RECORDS SUMMARY | 2024-10-05 02:53 | XMS_ITS | Encounter Summary ---
Author Organization [facility] Address [address] [place] [address] Phone Care Team Providers Care Cut Out And Marking Machine Operator Name Role Phone Gianluca Price MD Primary Care Provider Encounter Details Date Type Department Care Team (Late st Contact Info) Description 10/23/2019 Telephone [facility] Cardiology [address] [facility] 8th [place] [address] [place] [phone] Hussain Mitchell MD [address] [place], [place] [id number] Social History Tobacco Use Types Packs/Day Years Used Date Smoking Tobacco: Never Smokeless Tobacco: Never Alcohol Use Standard Drinks/Week Comments Yes 0 (1 standard drink = 0.6 oz pur e alcohol) Sex and Gender Information Value Date Recorded Sex Assigned at Not on file 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 Mitchell's recs R ANALYST * Telephone Encounter - Hussain Mitchell MD - 10/26/2019 5:00 AM WATER ANALYST Yes, okay. R ANALYST * Telephone Encounter - Verenice Caldwell RN - 10/23/2019 10:57 AM CST Pt is taking tramadol for hip pain. He wants to make sure this is ok with the eliquis. R ANALYST * Telephone Encounter - Hill Harrison - 10/23/2019 10:48 AM CST Paula Patient returning call. R ANALYST documented in this encounter Plan of Treatment Not on file documented as of this encounter Visit Diagnoses Not on filedocumented in this encounter Care Teams Cut Out And Marking Machine Operator Relationship Specialty Start Date End Date Gianluca Price MD PCP - General 06/18/17 documented as of this encounter
--- OUTSIDE RECORDS SUMMARY | 2024-10-05 02:53 | XMS_ITS | Encounter Summary ---
Author Organization [facility] Address [address] [place] [address] Phone Care Team Providers Care Patient Accounts Coordinator Name Role Phone Gianluca Price MD Primary Care Provider Encounter Details Date Type Department Care Team (Late st Contact Info) Description 11/06/2019 Telephone [facility] Cardiology [address] [facility] 8[address] [place] [address] [place] [address] Hussain Mitchell MD [address] [place], [place] [id number] Social History Tobacco Use Types Packs/Day Years Used Date Smoking Tobacco: Never Smokeless Tobacco: Never Alcohol Use Standard Drinks/Week Comments Yes 0 (1 standard drink = 0.6 oz pur e alcohol) Sex and Gender Information Value Date Recorded Sex Assigned at Not on file 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 Please schedule; order in chart. ty N MANAGER * Telephone Encounter - Trixie Poe - 11/06/2019 1:49 PM CST Paula Pt is calling to speak w.the nurse about her convo w/Dr. Mitchell. States he wants to schedule him for some test but he would like to discuss the details of the test before it is scheduled N MANAGER * Telephone Encounter - Coreen Rowley, MS - 11/06/2019 12:18 PM LINEN MANAGER Connected AA to pt N MANAGER * Telephone Encounter - Hill Harrison - 11/06/2019 11:12 AM CST Paula Patient states returning call to Thu. N MANAGER * Telephone Encounter - eLbron Veronica - 11/06/2019 10:17 AM CST Paula Pt req to speak to you about a surgery that he wants to make sure is still going to take place. Plscall. N MANAGER documented in this encounter Plan of Treatment Not on file documented as of this encounter Visit Diagnoses Not on filedocumented in this encounter Care Teams Patient Accounts Coordinator Relationship Specialty Start Date End Date Gianluca Price MD PCP - General 06/18/17 documented as of this encounter
--- OUTSIDE RECORDS SUMMARY | 2024-10-05 02:53 | XMS_ITS | Encounter Summary ---
Author Organization [facility] Address [address] [facility] [address] [place] [address] Care Team Providers Care Manager Crisis Name Role Phone Gianluca Price MD Primary Care Provider Reason for Referral * Diagnostic Imaging (Routine) - Closed Specialty Diagnoses / Procedures Referred By Contac t Referred To Contact Radiology Procedures MRI Lumbar Spine W WO Contrast [facility] [address] [place] [address] [place] [address] Phone: tel: fax: Referral ID Status Reason Start Date Expiration Date Visits Re quested Visits Authorized [id number] Closed 06/08/2020 07/08/2021 1 1 Encounter Details Date Type Department Care Team (Late st Contact Info) Description 06/08/2020 Orders Only [facility] [address] [place] [address] [place] [phone] Abran Canales MD [address] [place] [address] Social History Tobacco Use Types Packs/Day Years [...] on file 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 Gender Identity Not on file Sexual Orientation Not on file Occupation Industry Job Start Date Job End Date Retired Not on file Not on file Not on file documented as of this encounter Plan of Treatment Not on file documented as of this encounter Procedures Procedure Name Priority Date/Time Associated Diagnosis Comments MRI LUMBAR SPINE W WO CONTRAST Schedule Routine, Read Routine (OP Routine) 02/23/2020 documented in this encounter Results * MRI Lumbar Spine W WO Contrast (02/23/2020) Anatomical Region Laterality Modality Spine N/A Magnetic Resonan ce Historical Provider MD FRANK MRI PROCEDURES Final Result documented in this encounter Visit Diagnoses Not on filedocumented in this encounter Care Teams Manager Crisis Relationship Specialty Start Date End Date Gianluca Price MD PCP - General 06/18/17 documented as of this encounter
--- OUTSIDE RECORDS SUMMARY | 2024-10-05 02:53 | XMS_ITS | Encounter Summary ---
Author Organization [facility] Healthcare Address [address] [place] [address] Care Team Providers Care Deputy County Attorney Name Role Phone Gianluca Price MD Primary Care Provider Encounter Details Date Type Department Care Team (Late st Contact Info) Description 07/29/2020 10:10 AM CDT Lab [facility] [address] [place] [address] [place] [address] [place] [address] Hussain Mitchell MD [address] [place], [place] [id number] Atrial fibrillation, unspecified type (CMS/HCC); Shortness of breath; Hypertension, unspecified type; Triple vessel coronary artery disease; Hyperlipidemia, unspecified hyperlipidemia type; Cardiovascular disease Discharge Disposition: Discharge to home or self [...] file 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 Please increase Lasix to 40 mg q.a.m. and 20 mg q.p.m. from an earlier dose of 20 mg b.i.d.. Pleasecontinue spironolactone and hydrochlorothiazide without any changes. Advise diet and exercise and some weight loss. documented in this encounter Plan of Treatment Not on file documented as of this encounter Procedures Procedure Name Priority Date/Time Associated Diagnosis Comments DIFFERENTIAL AUTO Routine 07/29/2020 10: 07 AM CDT Atrial fibrillation, unspecified type (CMS/HCC) Shortness of breath Hypertension, unspecified type Triple vessel coronary artery disease Hyperlipidemia, unspecified hyperlipidemia type Cardiovascular disease PRO B-TYPE NATRIURETIC PEPTIDE Routine 07/29/2020 10:07 AM CDT Atrial fibrillation, unspecified type (CMS/HCC) Shortness of breath Hypertension, unspecified type Triple vessel coronary artery disease Hyperlipidemia, unspecified hyperlipidemia type Cardiovascular disease CBC WITH AUTO DIFFERENTIAL Routine 07/29/2020 10:07 AM CDT Atrial fibrillation, unspecified type (CMS/HCC) Shortness of breath Hypertension, unspecified type Triple vessel coronary artery disease Hyperlipidemia, unspecified hyperlipidemia type Cardiovascular disease LIPID PANEL Routine 07/29/2020 10:07 AM CDT Atrial fibrillation, unspecified type (CMS/HCC) Shortness of breath Hypertension, unspecified type Triple vessel coronary artery disease Hyperlipidemia, unspecified hyperlipidemia type Cardiovascular disease BASIC METABOLIC PANEL Routine 07/29/2020 10:07 AM CDT Atrial fibrillation, unspecified type (CMS/HCC) Shortness of breath Hypertension, unspecified type Triple vessel coronary artery disease Hyperlipidemia, unspecified hyperlipidemia type Cardiovascular disease documented in this encounter Results * Differential, auto (07/29/2020 10:07 AM CDT) Neutrophil abs 2.9 1.7 - 6.5 K/cumm [facility] Imm gran abs 0.0 0.0 - 0.1 K/cumm [facility] Lymphocyte abs 1.6 0.8 - 3.3 K/cumm [facility] Monocyte abs 0.6 0.2 - 0.8 K/cumm [facility] Eosinophil abs 0.2 0.0 - 0.5 K/cumm [facility] Basophil abs 0.1 0.0 - 0.1 K/cumm [facility] Neutrophil pct 54.4 % [facility] Comment: Interpretive Data Percent cell count reference ranges are not reported, since discordance with absolute values may lead to misinterpretation of CBC data. Current Interpretive Data was last revised on 2018. Imm gran pct 0.6 % [facility] Comment: Interpretive Data Percent cell count reference ranges are not reported, since discordance with absolute values may lead to misinterpretation of CBC data. Current Interpretive Data was last revised on 2018. Lymphocyte pct 29.6 % [facility] Comment: Interpretive Data Percent cell count reference ranges are not reported, since discordance with absolute values may lead to misinterpretation of CBC data. Current Interpretive Data was last revised on 2018. Monocyte pct 10.9 % [facility] Comment: Interpretive Data Percent cell count reference ranges are not reported, since discordance with absolute values may lead to misinterpretation of CBC data. Current Interpretive Data was last revised on 2018. Eosinophil pct 3.2 % [facility] Comment: Interpretive Data Percent cell count reference ranges are not reported, since discordance with absolute values may lead to misinterpretation of CBC data. Current Interpretive Data was last revised on 2018. Basophil pct 1.3 % [facility] Comment: Interpretive Data Percent cell count reference ranges are not reported, since discordance with absolute values may lead to misinterpretation of CBC data. Current Interpretive Data was last revised on 2018. Blood specimen (specimen) 07/29/2020 10:07 AM CDT 07/29/2020 11:47 AM CDT Hussain Mitchell MD LAB BLOOD ORDERABLES Zayra l Result Performing Organization Address City/[facility]/ZIP Co de Phone Number [facility] [place] [address] * Basic metabolic panel (07/29/2020 10:07 AM CDT) Sodium 136 135 - 145 mmol/L [facility] Potassium, pl 4.3 3.3 - 4.9 mmol/L [facility] Chloride 100 97 - 110 mmol/L [facility] CO2 27 22 - 32 mmol/L [facility] Anion gap 9 2 - 15 mmol/L [facility] BUN 24 8 - 25 mg/dL [facility] Creatinine 0.93 0.80 - 1.30 mg/dL [facility] Glucose 102 70 - 199 mg/dL [facility] Comment: Interpretive Data Fasting glucose [...] 2017. Calcium 9.8 8.5 - 10.3 mg/dL [facility] Blood specimen (specimen) 07/29/2020 10:07 AM CDT 07/29/2020 11:47 AM CDT Narrative [facility] - 07/29/2020 12:25 PM CDT fax BMP results to [phone] Hussain Mitchell MD LAB BLOOD ORDERABLES Zayra l Result Performing Organization Address [facility]/ZIP Co de Phone Number [facility] Department [place] [address] * (ABNORMAL) Pro B-type natriuretic peptide (07/29/2020 10:07 AM CDT) NT-proBNP 948(H) <=300 pg/mL [facility] Comment: Interpretive Comments: [...] Last Revised Date: 2018. Blood specimen (specimen) 07/29/2020 10:07 AM CDT 07/29/2020 11:47 AM CDT us Hussain Mitchell MD LAB BLOOD ORDERABLES Zayra candy Result [facility] Department [place] [address] * Lipid panel (07/29/2020 10:07 AM CDT) Cholesterol 128 30 - 199 mg/dL [facility] Comment: Interpretive Data Ages < or = [...] Data was last revised on 2018. Triglycerides 121 <=149 mg/dL [facility] Comment: Interpretive Data Ages < or = [...] Data was last revised on 2018. HDL 41 >=40 mg/dL [facility] Comment: Interpretive Data Ages < or = [...] was last revised on 2018. LDL, calculated 63 <=129 mg/dL [facility] Comment: Interpretive Data Ages [...] was last revised on 2018. Non-HDL Cholesterol 87 mg/dL [facility] Comment: Interpretive Data Ages < or = [...] last revised on 2018. Chol/HDL ratio 3 [facility] Blood specimen (specimen) 07/29/2020 10:07 AM CDT 07/29/2020 11:47 AM CDT Hussain Mitchell MD LAB BLOOD ORDERABLES Zayra gupta Result [facility] Department [place] [address] * (ABNORMAL) CBC with auto differential (07/29/2020 10:07 AM CDT) WBC 5.3 3.8 - 9.9 K/cumm [facility] Hgb 13.5 13.0 - 17.5 g/dL [facility] Hct 40.0 38.9 - 50.3 % [facility] Plt 217 150 - 400 K/cumm [facility] MPV 11.5 9.1 - 12.3 fL [facility] RBC 4.22(L) 4.30 - 5.80 M/cumm [facility] MCV 94.8 81.3 - 96.4 fL [facility] MCH 32.0 27.1 - 33.3 pg [facility] MCHC 33.8 32.3 - 35.7 g/dL [facility] RDW CV 13.0 11.1 - 14.9 % [facility] RDW SD 45.1 35.7 - 48.1 fL [facility] NRBC abs 0.00 0.00 - 0.01 K/cumm [facility] Blood specimen (specimen) 07/29/2020 10:07 AM CDT 07/29/2020 11:47 AM CDT Hussain Mitchell MD LAB BLOOD ORDERABLES Zayra gupta Result [facility] Department [place] [address] documented in this encounter Visit Diagnoses Diagnosis Atrial fibrillation, unspecified type (HCC) Shortness of breath Hypertension, unspecified type Triple vessel coronary artery disease Coronary atherosclerosis of unspecified type of vessel, big sandy or graft Hyperlipidemia, unspecified hyperlipidemia type Cardiovascular disease Unspecified cardiovascular disease documented in this encounter Care Teams Deputy County Attorney Relationship Specialty Start Date End Date Gianluca Price MD PCP - General 06/18/17 documented as of this encounter
--- OUTSIDE RECORDS SUMMARY | 2024-10-05 02:53 | XMS_ITS | Encounter Summary ---
Author Organization [facility] Address [address] [place] [address] Phone Care Team Providers Care Family Day Care Provider Name Role Phone Gianluca Price MD Primary Care Provider Encounter Details Date Type Department Care Team (Late st Contact Info) Description 02/18/2020 Telephone [facility] Cardiology [address] [facility] 8th [place] [address] [place] [address] Hussain Mitchell MD [address] [place], [place] [id number] Social History Tobacco Use Types Packs/Day Years Used Date Smoking Tobacco: Never Smokeless Tobacco: Never Alcohol Use Standard Drinks/Week Comments Yes 0 (1 standard drink = 0.6 oz pur e alcohol) Sex and Gender Information Value Date Recorded Sex Assigned at Not on file 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 Mitchell's recs. Asked to CB with questions * Telephone Encounter - Hussain Mitchell MD - 02/26/2020 11:05 AM CDT Then no need for ER admission is hemoglobin is normal. Have him keep an appointment with his PMD for GI workup Home please let him know if bleeding increases or develops symptoms of dizziness shortness of breath chest pain he needs to come to the emergency room * Telephone Encounter - Verenice Caldwell RN - 02/26/2020 11:02 AM CDT He had his CBC done 02/21-normal. Please advise * Telephone Encounter - Hussain Mitchell MD - 02/26/2020 10:59 AM CDT Thank you * Telephone Encounter - Verenice Caldwell RN - 02/19/2020 3:04 PM CDT I spoke to pt. States he has a hx of hemorrhoids in the past. I ordered a CBC on him at [facility]. He will get that done today or tomorrow. Advised you would like him to have an urgent GI workup-he may defer this to his PMD, but will let me know his decision on Saturday. He understands to come to the ER if his bleeding increases or he develops any other symptoms (dizzyness, sob, chest pain, etc) * Telephone Encounter - Hussain Mitchell MD - 02/19/2020 2:23 PM CDT He needs urgent GI workup. If he cannot get that done as an outpt and continues to have bleeding, we will admit him next week * Telephone Encounter - Verenice Caldwell RN - 02/18/2020 2:02 PM CDT I spoke to pt. States he has had about 5 episodes where he is having bright red blood in his bowel movements (blood on tissue and in the toilet bowl). He saw his pain management MD who wondered if hewas on too many blood thinners. He is taking eliquis 5mg bid and plavix 75mg every day. No recent labs. Please advise * Telephone Encounter - Shannon Price - 02/18/2020 11:16 AM CDT Mitchell Pt asking to speak with the nurse. No further given. Please call. documented in this encounter Plan of Treatment Not on file documented as of this encounter Visit Diagnoses Not on filedocumented in this encounter Care Teams Family Day Care Provider Relationship Specialty Start Date End Date Gianluca Price MD PCP - General 06/18/17 documented as of this encounter
--- OUTSIDE RECORDS SUMMARY | 2024-10-05 02:53 | XMS_ITS | Encounter Summary ---
Author Organization [facility] Address [address] [place] [address] Phone Care Team Providers Care Phosphoric Acid Supervisor Name Role Phone Gianluca Price MD Primary Care Provider Encounter Details Date Type Department Care Team (Late st Contact Info) Description 11/23/[address] 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
--- OUTSIDE RECORDS SUMMARY | 2024-10-05 02:53 | XMS_ITS | Encounter Summary ---
Author Organization [facility] Address [address] [place] [address] Phone Care Team Providers Care Geography Instructor Name Role Phone Gianluca Price MD Primary Care Provider Encounter Details Date Type Department Care Team (Late st Contact Info) Description 11/19/2019 Telephone [facility] Cardiology [address] [facility] 8th [place] [address] [place] [address] Hussain Mitchell MD [address] [place] [address] Social History Tobacco Use Types Packs/Day Years Used Date Smoking Tobacco: Never Smokeless Tobacco: Never Alcohol Use Standard Drinks/Week Comments Yes 0 (1 standard drink = 0.6 oz pur e alcohol) Sex and Gender Information Value Date Recorded Sex Assigned at Not on file Legal Sex Male 3:11 AM CONTAMINATION CONSULTANT Gender Identity Not on file Sexual Orientation Not on file documented as of this encounter Miscellaneous Notes * Telephone Encounter - Coreen Rowley MS - 11/20/2019 9:33 AM CONTAMINATION CONSULTANT AA spoke to pt today; not able to clear until PET results come in AMINATION CONSULTANT * Telephone Encounter - Hussain Mitchell MD - 11/20/2019 7:55 AM CONTAMINATION CONSULTANT Connect me sometime today AMINATION CONSULTANT * Telephone Encounter - Verenice Caldwell, RN - 11/19/2019 10:34 AM CST Hussain-pt would like to speak to you. He is scheduled for his PET today at 1:30. Pt is concerned about how quickly you will get the results-I did advise him to keep this appt so we can clear him for surgery. Pt said you told him you could get him admitted to the hospital for pain control, have ortho do hissurgery and you would assist. He is very uncomfortable and can't live like this . He would like to discuss his options with you. AMINATION CONSULTANT * Telephone Encounter - Vickie Ann - 11/19/2019 9:34 AM CONTAMINATION CONSULTANT Paula He wants to talk to you about a bunch of different things AMINATION CONSULTANT documented in this encounter Plan of Treatment Not on file documented as of this encounter Visit Diagnoses Not on filedocumented in this encounter Care Teams Geography Instructor Relationship Specialty Start Date End Date Gianluca Price MD PCP - General 06/18/17 documented as of this encounter
--- OUTSIDE RECORDS SUMMARY | 2024-10-05 02:53 | XMS_ITS | Encounter Summary ---
Author Organization [facility] Address [address] [place] [address] Phone Care Team Providers Care Cable Placer Name Role Phone Gianluca Price MD Primary Care Provider Encounter Details Date Type Department Care Team (Late st Contact Info) Description 12/18/2019 Telephone [facility] Cardiology [address] 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 * Telephone Encounter - Trixie Poe - 12/18/2019 8:51 AM CDT Paula isidro/[facility] is calling asking for a copy of the patients cardiac cath from 11/30/19 and a copy of his last Echo/EKG documented in this encounter Plan of Treatment Not on file documented as of this encounter Visit Diagnoses Not on filedocumented in this encounter Care Teams Cable Placer Relationship Specialty Start Date End Date Gianluca Price MD PCP - General 06/18/17 documented as of this encounter
--- OUTSIDE RECORDS SUMMARY | 2024-10-05 02:53 | XMS_ITS | Encounter Summary ---
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
--- OUTSIDE RECORDS SUMMARY | 2024-10-05 02:53 | XMS_ITS | Encounter Summary ---
Author Organization [facility] Address [address] [place] [address] Phone Care Team Providers Care Accounting Instructor Name Role Phone Gianluca Price MD Primary Care Provider Encounter Details Date Type Department Care Team (Late st Contact Info) Description 2019 Telephone [facility] Cardiology 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 He requested scripts for eliquis and spironolactone be sent to [facility]. Scripts sent. * Telephone Encounter - Trixie Poe - 2019 9:00 AM CDT Mitchell Patient is calling asking if he can transfer his meds over to [facility]. Asking to speak w/the nurseabout this in greater detail documented in this encounter Plan of Treatment Not on file documented as of this encounter Visit Diagnoses Not on filedocumented in this encounter Discontinued Medications Medication Sig Discontinue Reason Start Date End Da te apixaban (ELIQUIS) 5 mg tablet Take 1 tablet (5 mg total) by mouth 2 (two) times a day Reorder 10/22/2019 2019 spironolactone (ALDACTONE) 25 mg tablet Take 1 tablet (25 mg total) by mouth daily Reorder 11/06/2019 2019 documented as of this encounter Care Teams Accounting Instructor Relationship Specialty Start Date End Date Gianluca Price MD PCP - General 06/18/17 documented as of this encounter
--- OUTSIDE RECORDS SUMMARY | 2024-10-05 02:53 | XMS_ITS | Encounter Summary ---
Author Organization [facility] Address [address] [place] [address] Phone Care Team Providers Care Palliative Care Nurse Practitioner Name Role Phone Gianluca Price MD Primary Care Provider Encounter Details Date Type Department Care Team (Late st Contact Info) Description 12/01/2019 Telephone [facility] Cardiology [address] [facility] 8th [place] [address] [place] [address] Hussain Mitchell MD [address] [place] [address] Social History Tobacco Use Types Packs/Day Years Used Date Smoking Tobacco: Never Smokeless Tobacco: Never Alcohol Use Standard Drinks/Week Comments Yes 0 (1 standard drink = 0.6 oz pur e alcohol) Sex and Gender Information Value Date Recorded Sex Assigned at Not on file 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 Segura's office; called pt to let him know. TLE MACHINE OPERATOR * Telephone Encounter - Hussain Mitchell MD - 12/01/2019 10:55 AM BRISTLE MACHINE OPERATOR To Whom It May Concern. We performed cardiac cath yesterday which showed mild to moderate CAD and patent stents. From a heart failure perspective, he ap[peared euvolemic yesterday. We will clear him for hip replacement surgery, with an acceptable risk for paul- procedural myocardial infarction. You may hold Plavix for 5 days and Eliquis for 2 days prior to surgery. Please continue low dose aspirin 81 mg daily if possible. Please restart Plavix and Eliquis after the hip surgery. Please avoid excessive fluid shifts as hehas a cardiomyopathy and moderate-severe MR. Please continue his beta modesta throughout the paul-procedural period as he does have a tendency to go into Afib (he has paroxysmal Afib). Please continue his diuretics. Please ensure his electrolytes (K+ and Mg++) are replaced in the paul-procedural period. Please do not hesitate to call us with questions, if any. Hussain Mitchell MD TLE MACHINE OPERATOR * Telephone Encounter - Trixie Poe - 12/01/2019 9:19 AM CST Jonelle Patient asking for a CB to discuss previous notes. TLE MACHINE OPERATOR * Telephone Encounter - Verenice Caldwell RN - 12/01/2019 9:07 AM CST Please write clearance note including recommendations for blood thinners. Thu-let pt know when complete TLE MACHINE OPERATOR TLE MACHINE OPERATOR * Telephone Encounter - Amina Cobb - 12/01/2019 9:05 AM CST JONELLE PT REQ A CALL BACK REGARDING CLEARANCE FOR FOOT SURGERY, PLS CALL TLE MACHINE OPERATOR documented in this encounter Plan of Treatment Not on file documented as of this encounter Visit Diagnoses Not on filedocumented in this encounter Care Teams Palliative Care Nurse Practitioner Relationship Specialty Start Date End Date Gianluca Price MD PCP - General 06/18/17 documented as of this encounter
--- OUTSIDE RECORDS SUMMARY | 2024-10-05 02:53 | XMS_ITS | Encounter Summary ---
Author Organization [facility] Address [address] [place] [address] Care Team Providers Care Store Administrator Name Role Phone Gianluca Price MD Primary Care Provider Encounter Details Date Type Department Care Team (Late st Contact Info) Description 11/05/2019 9:31 AM SACK SEWER MACHINE Anesthesia Event [facility] [address] [place] [address] Anil Purvis MD [address] [place] [address] Sterling Elizalde CRNA [address] [place] [address] Anesthesia Record Procedure Summary Procedure Name Responsible Anesthesiologist Anesthesia Start Time Anesthesia Stop Time TRANSESOPHAGEAL ECHOCARDIOGRAM (WILMER) W POSSIBLE CARDIOVERSION Anil Purvis MD 11/05/19 0931 11/05/19 1039 Events Date Time Event Comment 11/05/2019 0931 An Start 0931 An Start Data 0941 Start Supplemental O2 0941 Patient Positioned Laterally 0941 Bite Block Placed 0945 An Induction The patient was reevaluated immediately before moderate or deep sedation use and before anesthesia induction. 0946 Anesthesia Ready 1009 Cardioversion 200j successfu l 1014 Cardioversion Back in Af, 30 0j successful. 1031 an stop data 1039 Handoff to RN I completed my handoff [...] disposition at the time of handoff: PACU 1039 An Stop Meds Name Total lidocaine 1 % PF 40 mg propofol 160 mg propofol 391.56 mg phenylephrine 100 mcg/mL 100 mcg sodium chloride 0.9% infusion 54.5 mL * Agents Name O2% N2O O2 * Blood No blood administrations on file. Lines, Drains, and Airways Type Details Placement Removal Peripheral IV Placement Date: 10/09 ; Placement Time: 833; Catheter Size: 20 G; Orientation: Left; Location: Hand; Site Prep: Chlorhexidine; Technique: Anatomical landmarks; Inserted by: SURJIT Allred; Insertion Attempts: 1; Patient Tolerance: Tolerated well; Removal Date: 11/05/19; Removal Time: 12111/05/19 0834 by Wilda Flannery RN 11/05/19 121 by Charlene Trejo RN documented in this encounter Social History Tobacco Use Types Packs/Day Years Used Date Smoking Tobacco: Never Smokeless Tobacco: Never Alcohol Use Standard Drinks/Week Comments Yes 0 (1 standard drink = 0.6 oz pur e alcohol) Sex and Gender Information Value Date Recorded Sex Assigned at Not on file Legal Sex Male 3:11 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 Anesthesia Start: 930 Anesthesia Stop: 1038 Procedure: TRANSESOPHAGEAL ECHOCARDIOGRAM (WILMER) W POSSIBLE CARDIOVERSION Diagnosis: Atrial fibrillation, unspecified type (CMS/HCC) Scheduled Providers: Anil Purvis MD Responsible Provider: Anil Purvis MD Anesthesia Type: MAC ASA Status: 3 Anesthesia Type: MAC Last vitals BP 100/62 Pulse 69 Temp 37.2 ??C (99 ??F) (Oral) Resp 20 SpO2 96% Anesthesia Post Evaluation Patient location: [facility]. Patient participation: complete - patient participated Level of consciousness: fully awake Pain score: 0 Pain management: adequate Airway patency: adequate Evidence of recall: no Anesthetic complications: no Cardiovascular status: acceptable Respiratory status: acceptable Hydration status: acceptable Pt is: normothermic Nausea/Vomiting status: none Cosigned by Anil Purvis MD at 11/05/2019 12:10 PM SACK SEWER MACHINE SEWER MACHINE SEWER MACHINE * Anesthesia Preprocedure Evaluation - Anil Purvis MD - 11/05/2019 9:07 AM CST Images from the original note were not included. Anesthesia Evaluation Du Anderson is a 63 y.o. male * No procedures listed * * No Diagnosis Codes entered * HISTORY Past Medical History Cardiovascular + Hypertension + CAD + Drug-eluting stent(s) - Prior stent(s) date: 2015. + Atrial fibrillation/flutter - Current Rhythm: atrial fibrillation. Patient Active Problem List Diagnosis ??? Abnormal cardiovascular stress test ??? Shortness of breath ??? Hyperlipidemia ??? Hypertension ??? Triple vessel coronary artery disease Past Medical History: Diagnosis Date ??? Coronary artery disease ??? Gout ??? Hypercholesterolemia ??? Hypertension Past Surgical History: Procedure Laterality Date ??? CARDIAC STENT PLACEMENT 4 ??? KNEE SURGERY Left 05/2018 ??? KNEE SURGERY Right 01/2016 ??? SPINAL FUSION Allergies Allergen Reactions ??? Rosuvastatin Muscle pain Taking? Last Dose Start Date End Date Provider allopurinol (ZYLOPRIM) 300 mg tablet 11/04/2019 06/01/18 -- Historical Provider, amLODIPine (NORVASC) 5 mg tablet 11/05/2019 10/05/19 -- Hussain Mitchell MD Take 1 tablet (5 mg total) by mouth daily apixaban (ELIQUIS) 5 mg tablet 11/05/2019 10/22/19 -- Hussain Mitchell MD Take 1 tablet (5 mg total) by mouth 2 (two) times a day Notes: Continue plavix. Stop aspirin atorvastatin (LIPITOR) 40 mg tablet 11/04/2019 10/05/19 -- Hussain Mitchell MD Take 1 tablet (40 mg total) by mouth daily carvedilol (COREG) 6.25 mg tablet 11/05/2019 10/05/19 -- Hussain Mitchell MD Take 1 tablet (6.25 mg total) by mouth 2 (two) times a day with meals clopidogrel (PLAVIX) 75 mg tablet 11/05/2019 10/05/19 10/04/20 Hussain Mitchell MD Take 1 tablet (75 mg total) by mouth daily fenofibrate nanocrystallized (TRICOR) 145 mg tablet 11/04/2019 -- -- Historical Provider, furosemide (LASIX) 20 mg tablet 11/04/2019 10/05/19 -- Hussain Mitchell MD TAKE 3 TABLETS DAILY DOSAGEINCREASE hydroCHLOROthiazide (HYDRODIURIL) 25 mg tablet 11/04/2019 06/03/18 -- Historical Provider, HYDROcodone-acetaminophen (NORCO) 5-325 mg per tablet More than a month 04/05/18 -- Historical Provider, niacin 500 mg tablet 11/04/2019 10/05/19 10/04/20 Hussain Mitchell MD Take 1 tablet (500 mg total) by mouth 2 (two) times a day with meals potassium chloride ER (KLOR-CON) 20 mEq CR tablet 11/04/2019 10/05/19 -- Hussain Mitchell MD Take 1 tablet (20 mEq total) by mouth 2 (two) times a day Notes: Pt prefers tablet due to stewart quinapril (ACCUPRIL) 40 mg tablet 11/05/2019 05/23/18 -- Historical ProviderMD Current Outpatient Medications: ??? allopurinol (ZYLOPRIM) 300 mg tablet ??? amLODIPine (NORVASC) 5 mg tablet ??? apixaban (ELIQUIS) 5 mg tablet ??? atorvastatin (LIPITOR) 40 mg tablet ??? carvedilol (COREG) 6.25 mg tablet ??? clopidogrel (PLAVIX) 75 mg tablet ??? fenofibrate nanocrystallized (TRICOR) 145 mg tablet ??? furosemide (LASIX) 20 mg tablet ??? hydroCHLOROthiazide (HYDRODIURIL) 25 mg tablet ??? niacin 500 mg tablet ??? potassium chloride ER (KLOR-CON) 20 mEq CR tablet ??? quinapril (ACCUPRIL) 40 mg tablet ??? HYDROcodone-acetaminophen (NORCO) 5-325 mg per tablet Current Facility-Administered Medications: ??? sodium chloride 0.9% flush 0.5-20 mL, 0.5-20 mL, intra-catheter, PRN ??? sodium chloride 0.9% infusion, 30 mL/hr, intravenous, Continuous, Last Rate: 30 mL/hr at 11/05/19 0836, 30 mL/hr at 11/05/19 0836 Social History Tobacco Use Smoking Status Never Smoker Smokeless Tobacco Never Used Substance and Sexual Activity Alcohol Use Yes Substance and Sexual Activity Drug Use Never Family History Problem Relation Age of Onset ??? Heart attack Father Family history of heart attack - (Added by TW Conv) Vitals: 11/05/19 0820 BP: 135/82 Pulse: 103 Resp: 10 Temp: 37.2 ??C (99 ??F) SpO2: 94% PT: No results found for requested labs [...] for requested labs within last 720 hours. DOS Physical Exam Medical history, medications, and allergies reviewed. Attestation: This PAT evaluation 11/05/2019. Airway Exam: Mallampati: III Cervical ROM: FROM TM distance: >4 Cardiovascular Exam: Rate: tachycardia Rhythm: irregular Pulmonary Exam: LCTA, bilat Dental Exam: Appears intact Current state: Patient's current state is cooperative. Additional comments: Thick neck Anesthesia Plan ASA 3 My patient is approved for the Anesthesia Controlled Medication protocol when under care of a SAMPLE WASHER Planned anesthesia: MAC Informed Consent: Anesthesia plan and risks discussed with patient. Consent and Attending signature: I and/or my designee have discussed the anesthesia plan, benefits, possible alternatives, parental presence at time of induction (if indicated), and clinically relevant risks that may include dental injury, unintentional awareness, and/or other complications. The patient and/or parent/legal guardian understand, and agree to proceed. All questions answered. SEWER MACHINE documented in this encounter Plan of Treatment Not on file documented as of this encounter Visit Diagnoses Not on filedocumented in this encounter Administered Medications Inactive Administered Medications - up to 3 most recent administrations Medication Order MAR Action Action Date Dose Rate Site lidocaine PF (XYLOCAINE) 10 mg/mL (1 %) preservative free injection As needed, Starting on Alina 11/05/19 at 0944, Anesthesia Intra-op Given 11/05/2019 9:44 AM SACK SEWER MACHINE 40 mg phenylephrine (CARLIE-SYNEPHRINE) 0.5 mg/5 mL (100 mcg/mL) in sodium chloride 0.9% (premix) intravenous, As needed, Starting on Alina 11/05/19 at 1021, Anesthesia Intra-op Given 11/05/2019 10:21 AM SACK SEWER MACHINE 100 mcg propofol (DIPRIVAN) IV intravenous, As needed, Starting on Alina 11/05/19 at 0944, Anesthesia Intra-op Given 11/05/2019 10:12 AM SACK SEWER MACHINE 40 mg Given 11/05/2019 10:02 AM SACK SEWER MACHINE 20 mg Given 11/05/2019 9:46 AM SACK SEWER MACHINE 20 mg propofol (DIPRIVAN) IV intravenous, Continuous PRN, Starting on Alina 11/05/19 at 0944, Anesthesia Intra-op New Bag 11/05/2019 9:44 AM SACK SEWER MACHINE 100 mcg/kg/min 90.36 mL/hr sodium chloride 0.9% infusion 30 mL/hr, intravenous, Continuous, Starting on Alina 11/05/19 at 0845, Pre-Procedure (CV) Rate/Dose Change 11/05/2019 9:31 AM SACK SEWER MACHINE 30 mL/hr New Bag 11/05/2019 8:36 AM SACK SEWER MACHINE 30 mL/hr 30 mL/hr documented in this encounter Care Teams Store Administrator Relationship Specialty Start Date End Date Gianluca Price MD PCP - General 06/18/17 documented as of this encounter
--- OUTSIDE RECORDS SUMMARY | 2024-10-05 02:53 | XMS_ITS | Encounter Summary ---
Author Organization [facility] Address [address] [place] [address] Phone Care Team Providers Care Prospect Manager Name Role Phone Gianluca Price MD Primary Care Provider Encounter Details Date Type Department Care Team (Late st Contact Info) Description 10/22/2019 Telephone [facility] Cardiology [address] 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 Please call to discuss NSED MENTAL HEALTH COUNSELOR documented in this encounter Plan of Treatment Not on file documented as of this encounter Visit Diagnoses Not on filedocumented in this encounter Care Teams Prospect Manager Relationship Specialty Start Date End Date Gianluca Price MD PCP - General 06/18/17 documented as of this encounter
--- OUTSIDE RECORDS SUMMARY | 2024-10-05 02:53 | XMS_ITS | Encounter Summary ---
Author Organization [facility] Address [address] [place] [address] Phone Care Team Providers Care Cat Skinner Name Role Phone Gianluca Price MD Primary Care Provider Reason for Referral * Cardiology (Routine) - Closed Specialty Diagnoses / Procedures Referred By Contac t Referred To Contact Diagnoses Triple vessel coronary artery disease Procedures Transthoracic Echo Complete W Doppler/CF Abigail Woodard MD [address] [address] Phone: tel: fax: [facility] (All Locations) Referral ID Status Reason Start Date Expiration Date Visits Re quested Visits Authorized [id number] Closed 01/10/2021 02/09/2022 1 1 * Cardiology (Routine) - Closed Specialty Diagnoses / Procedures Referred By Contac t Referred To Contact Diagnoses Encounter to establish care with new doctor Procedures ECG 12 lead Abigail Woodard MD [address] [address] Phone: tel: fax: [facility] (All Locations) Referral ID Status Reason Start Date Expiration Date Visits Re quested Visits Authorized [id number] Closed 01/10/2021 02/09/2022 1 1 * Consultation (Routine) - Closed Specialty Diagnoses / Procedures Referred By Antonietta t Referred To Contact Cardiology Diagnoses Hypertension, unspecified type Abigail Woodard MD [address] [facility] [address] [place] [address] Phone: tel: fax: Abigail Woodard MD [address] [address] Phone: tel: fax: Referral ID Status Reason Start Date Expiration Date V isits Requested Visits Authorized [id number] Closed Specialty Services Required 01/06/2021 02/05/2022 1 1 Question Answer Please select the performing region: [facility] (All Locations) [[id number]] To provider: ABIGAIL WOODARD [[id number]] # of visits: 1 Reason for Visit * Consultation (Routine) - Closed Specialty Diagnoses / Procedures Referred By Antonietta livingston Referred To Contact Cardiology Diagnoses Hypertension, unspecified type Abigail Woodard MD [address] [address] Phone: tel: fax: Abigail Woodard MD [address] [address] Phone: tel: fax: Referral ID Status Reason Start Date Expiration Date V isits Requested Visits Authorized [id number] Closed Specialty Services Required 01/06/2021 02/05/2022 1 1 Encounter Details Date Type Department Care Team (Late st Contact Info) Description 01/10/2021 1:00 PM CDT Office Visit [facility] Cardiology 5[address] [facility] [address] [place] [address] Abigail Woodard MD 5201 [facility] [address] [place] [address] Hypertension, unspecified type (Primary Dx); Encounter to establish care with new doctor; Triple vessel coronary artery disease Social History [...] on file 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 Gender Identity Not on file Sexual Orientation Not on file Occupation Industry Job Start Date Job End Date Retired Not on file Not on file Not on file documented as of this encounter Last Filed Vital Signs Vital Sign Reading Time Taken Comments Blood Pressure 131/84 01/10/2021 12:57 PM CDT Pulse 92 01/10/2021 12:57 PM CDT Temperature - - Respiratory Rate - - Oxygen Saturation 98% 01/10/2021 12: 57 PM CDT Inhaled Oxygen Concentration - - Weight 154.8 kg (341 lb 4.8 oz) 021 12:57 PM CDT Height 193 cm (6' 3.98 ) 01/10/2021 12: 57 PM CDT Body Mass Index 41.56 01/10/2021 12:57 PM CDT documented in this encounter Patient Instructions * Patient Instructions* Abigail Woodard MD - 01/10/2021 1:00 PM CDT Cbc, CMP, BNP Echo with doppler Rtc 3 m documented in this encounter Progress Notes * Aibgail Woodard MD - 01/10/2021 1:00 PM CDT 01/10/[address] Hussain Mitchell Patient's Name: Du Anderson : 1955 [place]: 01/08/2021 PRINCIPAL AND SECONDARY DIAGNOSES: 1. Complex coronary [...] INTERVAL HISTORY: Du Anderson returns for follow-up. We have done stenting of his ostial LAD, ostial ramus, [...] orshortness of breath. He denies any leg swelling. He had LV dysfunction and moderate to [...] by mouth twice a day PHYSICAL EXAM: There were no vitals taken for this visit.GEN: pleasant in NAD; alert, comfortable HENT: NCAT, MMM, anicteric Neck: no trauma, no JVD CVS: RRR, S1S2, no rubs/murmurs/gallops PULM: non-labored, CTAB, good inspiratory effort ABD: soft, not tender to palpation EXT: equal radial pulses, no edema Neuro: motor and sensation grossly intact Skin: warm, dry, no cyanosis OBJECTIVE DATA: Lab Results Component Value Date GLUCOSE 102 07/29/2020 CALCIUM 9.8 07/29/2020 SODIUM 136 07/29/2020 POTASSIUM 4.3 07/29/2020 CO2 27 07/29/2020 CHLORIDE 100 07/29/2020 BUNSER 24 07/29/2020 CREATININE 0.93 07/29/2020 No results found for: NTPROBNP Lab Results Component Value Date WBC 5.3 07/29/2020 HGB 13.5 07/29/2020 HCT 40.0 07/29/2020 MCV 94.8 07/29/2020 LABPLAT 217 07/29/2020 Lab Results Component Value Date LDL 44 [...] any cardiovascular problems. Today he returns for follow-up.He is recovering well. He denies any chest pain or shortness of breath. He denies any leg swelling. He had LV dysfunction and moderate to severe central mitral regurgitation based on echocardiogram done in October 2019. We have not repeated any testing since then. He is still on Plavix for his stents and Eliquis for his atrial fibrillation. We have discontinued the aspirin. He does not describe any chest pain nor shortness of breath. Overall he is doing very well. We are making no changes to the diuretics. We are repeating an echo today. 2. Hypertension, well controlled. 3. Dyslipidemia. He is on high-dose Lipitor and Niacin 1,000 mg BID. He states the flushing does not bother him. On this regimen he had well controlled LDL and TG. We will check a lipid profile today. If his triglycerides are elevated I would like to switch him to fenofibrate and Vascepa. 4. Obstructive sleep apnea. 5. Osteoarthritis. He [...] minutes only. 9. Mitral valve insufficency : Will get echo for follow up. It was pleasure to participate in the care of Du Anderson. We will see him back in six months. Sincerely, Abigail Woodard M.D., F.A.C.C. mortgage broker [facility]. [place] This note was written using a voice recognition system hardware device. Please note there may be variance in spelling, stephanie, and syntax because of the voice recognition system hardware. Therefore,not every sentence has been reviewed in its entirety. If there are any concerns about verbage aboveplease contact me at [phone]. documented in this encounter Miscellaneous Notes * Addendum Note - Sydney Ngo RN - 01/10/2021 1:00 PM CDTAddended by: SYDNEY NGO on: 01/18/2021 03:23 PM Modules accepted: Orders documented in this encounter Plan of Treatment Scheduled Referrals Name Type Priority Associated Diagnoses Orde r Schedule Ambulatory referral to Cardiology Outpatient Referral Routine Hypertension, unspecified type Expected: 01/20/2021 (Approximate), Expires: 01/06/2022 documented as of this encounter Procedures Procedure Name Priority Date/Time Associated Diagnosis Comments ECG 12-LEAD Routine 01/10/2021 Encounter to establish care with new doctor documented in this encounter Results * TRANSTHORACIC ECHO (TTE) COMPLETE W DOPPLER/CF W CONTRAST (01/25/2021 1:33 PM CDT) Anatomical Region Laterality Modality Ultrasound 01/25/2021 12:3 0 PM CDT Narrative 01/26/2021 7:17 PM CDT Patient name: Du Anderson Date of test: 01/25/2021 Type of test: TTE w/Doppler Hospital #: 0 Date of : 1955 (M) Cap Inspector: LUDIVINA Morrissey ??RDCS Referring Physician: ABIGAIL WOODARD MD Contrast Agent: 1.5 ml Optison Administered, (1.5 ml wasted). Contrast Administered by: Sydney Ngo RN Supervised/Interpreted by: Abigail Woodard MD Diagnosis: Location: [facility] Reason for test: CAD, Atrial Fibrillation [...] 2=Hypo 3=Akinetic 4=Dyskin./Aneurysm 0=Not visualized) Parasternal [place]:MAS=1 BAS=1 MIL=1 ALICJA=[address] [place] [address]:MAS=1 MIS=1 HI=1 MIL=1 MAL=1 MA=1 Apical 4 Chambers:=1 MIS=1 BIS=1 BAL=1 MAL=1 AL=1 AC=1 Apical 2 Chambers:AI=1 HI=1 BI=1 BA=1 MA=1 AA=1 AC=1 LV Global [...] MD By signing this report, the attending wet end helper certifies that he or she has personally supervised and interpreted the echocardiogram and has reviewed and or edited and agrees with the written comments contained within the report. Procedure Note Abigail Woodard MD - 01/26/2021 Patient name: Du Anderson Date of test: 01/25/2021 Type of test: TTE w/Doppler Hospital #: 0 Date of : 1955 (M) Cap Inspector: LUDIVINA Morrissey [facility] Referring Physician: ABIGAIL WOODARD MD Contrast Agent: 1.5 ml Optison Administered, (1.5 ml wasted). Contrast Administered by: Sydney Ngo RN Supervised/Interpreted by: Abigail Woodard MD Diagnosis: Location: [facility] Reason for test: CAD, Atrial Fibrillation [...] 2=Hypo 3=Akinetic 4=Dyskin./Aneurysm 0=Not visualized) Parasternal [place]:MAS=1 BAS=1 MIL=1 ALICJA=[address] [place] [address]:MAS=1 MIS=1 HI=1 MIL=1 MAL=1 MA=1 Apical 4 Chambers:=1 MIS=1 BIS=1 BAL=1 MAL=1 AL=1 AC=1 Apical 2 Chambers:AI=1 HI=1 BI=1 BA=1 MA=1 AA=1 AC=1 LV Global [...] MD By signing this report, the attending wet end helper certifies that he or she has personally supervised and interpreted the echocardiogram and has reviewed and or edited and agrees with the written comments contained within the report. us Abigail Woodard MD CV ECHO PROCEDURES Final Resul t * ECG 12 lead (01/10/2021) us Abigail Woodard MD ECG ORDERABLES Final Result documented in this encounter Visit Diagnoses Diagnosis Hypertension, unspecified type- Primary Encounter to establish care with new doctor Triple vessel coronary artery disease Coronary atherosclerosis of unspecified type of vessel, united [place] or graft Hypertension, unspecified type- Primary Triple vessel coronary artery disease Coronary atherosclerosis of unspecified type of vessel, [place] or graft documented in this encounter Orders Lab Orders Without Results Count Last Ordered D ate First Ordered Date CBC WITH AUTO DIFFERENTIAL 1 01/18/2021 COMPREHENSIVE METABOLIC PANEL 1 01/18/2021 PRO B-TYPE NATRIURETIC PEPTIDE 1 01/18/2021 documented in this encounter Care Teams Cat Skinner Relationship Specialty Start Date End Date Gianluca Price MD PCP - General 06/18/17 documented as of this encounter
--- OUTSIDE RECORDS SUMMARY | 2024-10-05 02:53 | XMS_ITS | Encounter Summary ---
Author Organization [facility] Address [address] [place] [address] Phone Care Team Providers Care Overhead Crane Technician Name Role Phone Gianluca Price MD Primary Care Provider Reason for Visit * Reason Onset Date Comments RECORDS 11/15/2020 Encounter Details Date Type Department Care Team (Late st Contact Info) Description 11/15/[address] 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 Gender Identity Not on file Sexual Orientation Not on file Occupation Industry Job Start Date Job End Date Retired Not on file Not on file Not on file documented as of this encounter Miscellaneous Notes * Telephone Encounter - Coreen Rowley, - 11/15/2020 1:31 PM BULB PACKER Office note, cath & echo report faxed; conf rcv'd PACKER * Telephone Encounter - Amina Cobb - 11/15/2020 12:31 PM CST SAL REQ LAST OFFICE NOTE, CATH AND ECHO REPORT FAX [phone] PACKER documented in this encounter Plan of Treatment Not on file documented as of this encounter Visit Diagnoses Not on filedocumented in this encounter Care Teams Overhead Crane Technician Relationship Specialty Start Date End Date Gianluca Price MD PCP - General 06/18/17 documented as of this encounter
--- OUTSIDE RECORDS SUMMARY | 2024-10-05 02:53 | XMS_ITS | Encounter Summary ---
Author Organization [facility] Address [address] [place] [address] Phone Care Team Providers Care Environmental Educator Name Role Phone Gianluca Price MD Primary Care Provider Encounter Details Date Type Department Care Team (Late st Contact Info) Description 11/05/2019 Telephone [facility] Cardiology [address] [facility] Advanced [facility] 8th [place] [address] [place] [address] Hussain Mitchell MD [address] [place], [place] [id number] Social History Tobacco Use Types Packs/Day Years Used Date Smoking Tobacco: Never Smokeless Tobacco: Never Alcohol Use Standard Drinks/Week Comments Yes 0 (1 standard drink = 0.6 oz pur e alcohol) Sex and Gender Information Value Date Recorded Sex Assigned at Not on file Legal Sex 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 Mitchell regarding holding meds for his surgery next week. 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 He has questions about some of his medications Please call to discuss CAR MECHANIC documented in this encounter Plan of Treatment Not on file documented as of this encounter Visit Diagnoses Not on filedocumented in this encounter Care Teams Environmental Educator Relationship Specialty Start Date End Date Gianluca Priec MD PCP - General 06/18/17 documented as of this encounter
--- OUTSIDE RECORDS SUMMARY | 2024-10-05 02:53 | XMS_ITS | Encounter Summary ---
Author Organization [facility] Address [address] [place] [address] Phone Care Team Providers Care Tree Care Foreman Name Role Phone Gianluca Price MD Primary Care Provider Encounter Details Date Type Department Care Team (Late st Contact Info) Description 11/06/2019 Telephone [facility] Cardiology [address] [facility] [address] 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 3) Increase KCL to 30 mEq BID (total 60 mEq) 4) BMP check next week. Thanks Hussain ----- Message ----- From: Verenice Caldwell RN Sent: 11/06/2019 9:05 AM MASTER MECHANIC To: Hussain Mitchell MD Subject: RE: WILMER/CV on patient today He is already taking potassium 20meq bid. Please advise ----- Message ----- From: Hussain Mitchell MD Sent: 11/05/2019 3:12 PM MASTER MECHANIC To: Verenice Caldwell RN, # Subject: RE: WILMER/CV on patient today Hi Verenice, He has central MR with moderate LV [...] Anil Ramos MD Sent: 11/05/2019 11:50 AM MASTER MECHANIC To: Verenice Caldwell RN, Hussain Mitchell MD Subject: WILMER/CV on patient today Dear Dr. Mitchell, We performed a WILMER with CV on your patient Mr. Anderson today. In addition, WILMER revealed moderate LVdysfunction and moderate-severe, central MR. He has large atria. We cardioverted him once with successful uatsdin of sinus rhythm. However, he returned to [...] I can help further. Sincerely, Clint Ramos ER MECHANIC documented in this encounter Plan of Treatment Not on file documented as of this encounter Visit Diagnoses Not on filedocumented in this encounter Care Teams Tree Care Foreman Relationship Specialty Start Date End Date Gianluca Price MD PCP - General 06/18/17 documented as of this encounter
--- OUTSIDE RECORDS SUMMARY | 2024-10-05 02:53 | XMS_ITS | Encounter Summary ---
Author Organization [facility] Address [address] [place] [address] Phone Care Team Providers Care Housekeeping Aide Name Role Phone Gianluca Price MD Primary Care Provider Encounter Details Date Type Department Care Team (Late st Contact Info) Description 11/23/2019 Telephone [facility] Cardiology [address] [facility] Advanced [facility] 8th [place] [address] [place] [address] Hussain Mitchell MD [address] [place], [place] [id number] Social History Tobacco Use Types Packs/Day Years Used Date Smoking Tobacco: Never Smokeless Tobacco: Never Alcohol Use Standard Drinks/Week Comments Yes 0 (1 standard drink = 0.6 oz pur e alcohol) Sex and Gender Information Value Date Recorded Sex Assigned at Not on file Legal Sex Male 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 Mitchell has spoken to patient's surgeon Dr. Segura. Patient's surgery has been put on hold and the patient is to contact Dr. Segura for hip injections until surgery is rescheduled. Patient may need to be cathed. LER DYEING MACHINE OPERATOR documented in this encounter Plan of Treatment Not on file documented as of this encounter Visit Diagnoses Not on filedocumented in this encounter Care Teams Housekeeping Aide Relationship Specialty Start Date End Date Gianluca Price MD PCP - General 06/18/17 documented as of this encounter
--- OUTSIDE RECORDS SUMMARY | 2024-10-05 02:53 | XMS_ITS | Encounter Summary ---
Author Organization [facility] Healthcare Address [address] [place] [address] Care Team Providers Care Direct Marketing Coordinator Name Role Phone Gianluca Price MD Primary Care Provider Reason for Referral * Cardiology (Routine) - Closed Specialty Diagnoses / Procedures Referred By Antonietta livingston Referred To Contact Diagnoses Atrial fibrillation, unspecified type (HCC) Procedures Transesophageal Echocardiogram W Possible Cardioversion Hussain Sal MD Phone: tel: fax: [address] [phone] Referral ID Status Reason Start Date Expiration Date Visits Re quested Visits Authorized [id number] Closed 10/22/2019 05/02/2021 1 1 LINE WRITER Reason for Visit * Cardiology (Routine) - Closed Specialty Diagnoses / Procedures Referred By Antonietta livingston Referred To Contact Diagnoses Atrial fibrillation, unspecified type (HCC) Procedures Transesophageal Echocardiogram W Possible Cardioversion Hussain Sal MD Phone: tel: fax: [address] [phone] Referral ID Status Reason Start Date Expiration Date Visits Re quested Visits Authorized [id number] Closed 10/22/2019 05/02/2021 1 1 Encounter Details Date Type Department Care Team (Latest Contact Info) Description 11/05/2019 8:00 AM HEADLINE WRITER - 11/05/2019 11:59 PM HEADLINE WRITER Hospital Encounter [facility] [address] [facility] [place] [address] Hussain Sal MD [address] [place] [address] Anil Purvis MD [address] [place] [address] Atrial fibrillation, unspecified type (CMS/HCC); Abnormal cardiovascular stress test; Shortness of breath Discharge Disposition: Discharge to home or self care Social History Tobacco Use Types Packs/Day Years Used Date Smoking Tobacco: Never Smokeless Tobacco: Never Alcohol Use Standard Drinks/Week Comments Yes 0 (1 standard drink = 0.6 oz pur e alcohol) Sex and Gender Information Value Date Recorded Sex Assigned at Not on file Legal Sex Male 3:11 AM HEADLINE WRITER Gender Identity Not on file Sexual Orientation Not on file documented as of this encounter Last Filed Vital Signs Vital Sign Reading Time Taken Comments Blood Pressure 106/70 11/05/2019 11:20 AM HEADLINE WRITER Pulse 85 11/05/2019 11:20 AM HEADLINE WRITER Temperature 37.2 ??C (99 ??F) 11/05/2019 8:20 AM HEADLINE WRITER Respiratory Rate 16 11/05/2019 11:20 AM HEADLINE WRITER Oxygen Saturation 97% 11/05/2019 11:20 AM HEADLINE WRITER Inhaled Oxygen Concentration - - Weight 150.6 kg (332 lb) 11/05/2019 8:20 AM HEADLINE WRITER Height 195.6 cm (6' 5 ) 11/05/2019 8:20 AM HEADLINE WRITER Body Mass Index 39.37 11/05/2019 8:20 AM HEADLINE WRITER documented in this encounter Discharge Instructions * Discharge Instructions* Charlene Trejo RN - 11/05/2019 11:49 AM HEADLINE WRITER Discharge Instructions For Transesophageal Echocardiogram (WILMER) 1. After the procedure your throat may be sore for a few hours. If you experience trouble swallowing, stiff neck, abdominal pain, chest pain, vomiting of blood, or black or bloody stools, contact your physician immediately. 2. If you can swallow water easily, you can eat and drink normally. 3. Do not drive for 24 hours 4. Do not make any legal decisions for 24 hours 5. Do not operate potentially dangerous machinery for 24 hours 6. Do not drink alcohol for 24hours 7. Rest at home with activity as tolerated 8. Take medications that are prescribed by your physician as directed For routine questions or concerns regarding your care after your WILMER please feel free to call us. From 7am-5pm M-F call our Outpatient Nurse Coordinators at [phone]. If you need to speak to someone after 5pm please call [facility] at [phone] and ask the jitterbug operator to page the Cardiac Dopster Fellow strategic solutions consultant. LINE WRITER documented in this encounter Medications at Time of Discharge allopurinol (ZYLOPRIM) 300 mg tabletIndications:pr evention of acute gout attack Take 1 tablet (300 mg total) by mouth nightly 8 amLODIPine (NORVASC) 5 mg tabletIndications:Hy pertension, unspecified type Take 1 tablet (5 mg total) by mouth daily 90 tablet 3 9 09/27/20 20 apixaban (ELIQUIS) 5 mg tablet Take 1 tablet (5 mg total) by mouth 2 (two) times a day 60 tablet 6 0 12/28/19 20 atorvastatin (LIPITOR) 40 mg tablet Take 1 tablet (40 mg total) by mouth daily 90 tablet 3 9 09/06/20 20 carvedilol (COREG) 6.25 mg tablet Take 1 tablet (6.25 mg total) by mouth 2 (two) times a day with meals 180 tablet 3 9 07/18/20 20 clopidogrel (PLAVIX) 75 mg tablet Take 1 tablet (75 mg total) by mouth daily 90 tablet 3 9 09/06/20 20 fenofibrate nanocrystallized (TRICOR) 145 mg tablet Take by mouth 06/07/20 20 furosemide (LASIX) 20 mg tablet TAKE 3 TABLETS DAILY DOSAGEINCREASE 270 tablet 3 9 11/06/19 20 hydroCHLOROthiazide (HYDRODIURIL) 25 mg tablet Take 25 mg by mouth daily 8 02/14/20 22 HYDROcodone-acetamin ophen (NORCO) 5-325 mg per tabletIndications:Pa in 0 8 06/07/20 20 niacin 500 mg tablet Take 1 tablet (500 mg total) by mouth 2 (two) times a day with meals 180 tablet 3 9 04/10/20 23 potassium chloride ER (KLOR-CON) 20 mEq CR tablet Take 1 tablet (20 mEq total) by mouth 2 (two) times a day 180 tablet 3 9 11/06/19 20 quinapril (ACCUPRIL) 40 mg tablet Take 40 mg by mouth daily 8 02/14/20 22 documented as of this encounter Discharge Disposition Disposition Code Departure Means Destination Discharge to home or self care documented in this encounter H&P Notes * Anil Ramos MD - 11/05/2019 10:00 AM CST WILMER Pre-evaluation History/Clinical Summary: 63 yo M w/ CAD s/p multiple PCI, HTN, PHILLIP, HLD and recent afib with RVR. WILMER Indication: rule out thrombus pre-cardioversion Decisional capacity to consent for WILMER? yes Prior WILMER? no Details of prior WILMER: Prior TTE? yes - presumed at OSH Details of prior TTE: 1) Anesthesia/Sedation Risks: Prior complications with sedation or anesthesia: no Loose teeth or dentures: no EF <30%, RV dysfunction, or recent shock: no PHILLIP or severe lung disease: no ASA: Per Anesthesia 2) Bleeding Risks: Recent bleeding or contraindications to anticoagulation: no Current anticoagulation: apixaban No results found for: INR No results found for: PTT Lab Results Component Value Date LABPLAT 137 (L) 06/02/2019 LABPLAT 185 06/04/2018 LABPLAT 163 12/26/2015 3) GI Risks: Difficulty swallowing: no Prior surgery or known disease of esophagus or stomach: no Review of Systems: Review of systems as per HPI and, otherwise all other systems are negative. PMHX: has a past medical history of Coronary artery disease, Gout, Hypercholesterolemia, and Hypertension. PSHX: has a past surgical history that includes Knee surgery (Left, 05/2018); Knee surgery (Right, 01/2016); Cardiac Stent Placement; and Spinal fusion. Family Hx: family history includes Heart attack in his father. Social Hx: reports that he has never smoked. He has never used smokeless tobacco. He reports current alcohol use. He reports that he does not use drugs. Allergies: Allergies Allergen Reactions ??? Rosuvastatin Muscle pain Home Medications: HOME MEDICATIONS : allopurinol (ZYLOPRIM) 300 mg tablet amLODIPine (NORVASC) 5 mg tablet apixaban (ELIQUIS) 5 mg tablet atorvastatin (LIPITOR) 40 mg tablet carvedilol (COREG) 6.25 mg tablet clopidogrel (PLAVIX) 75 mg tablet fenofibrate nanocrystallized (TRICOR) 145 mg tablet furosemide (LASIX) 20 mg tablet hydroCHLOROthiazide (HYDRODIURIL) 25 mg tablet niacin 500 mg tablet potassium chloride ER (KLOR-CON) 20 mEq CR tablet quinapril (ACCUPRIL) 40 mg tablet HYDROcodone-acetaminophen (NORCO) 5-325 mg per tablet Current Medications: sodium chloride 0.9%, 30 mL/hr, Last Rate: 30 mL/hr (11/05/19 0836) Physical Exam: General appearance: no acute distress HEENT: NCAT, MMM, anicteric Lungs: normal air movement, non-labored Heart: RRR, S1, S2 normal Abdomen: soft, ND Extremities: extremities normal, warm and well-perfused, equal pulses Skin: warm and dry Neurologic: No abnormal movements, non-focal exam Psych: Normal mood and affect Labs and Imaging: Reviewed Plan: Proceed with WILMER Anil Ramos MD Safety Risk Lead Time: 8:48 AM Date: 11/05/2019 Cosigned by Omayra Lockhart DO at 11/05/2019 9:27 AM HEADLINE WRITER LINE WRITER LINE WRITER documented in this encounter Nursing Notes * Charlene Trejo RN - 11/05/2019 10:00 AM CST Patient is alert and oriented. Patient denies pain at this time.Patient ate and drank without any difficulty.All belongings returned to patient, AVS reviewed and signed by patient, patient dischargedper MD order via scooter, with responsible caregiver . LINE WRITER documented in this encounter Miscellaneous Notes * Pre-Sedation Documentation - Anil Ramos MD - 11/05/2019 10:00 AM CST Sedation Plan ASA 3 - Severe systemic disease Risks, benefits, and alternatives discussed with patient. History of sedation/Anesthesia complications:No History of transfusion reaction: No Current Outpatient Medications Medication Sig Dispense Refill ??? allopurinol (ZYLOPRIM) 300 mg tablet ??? amLODIPine (NORVASC) 5 mg tablet Take 1 tablet (5 mg total) by mouth daily 90 tablet 3 ??? apixaban (ELIQUIS) 5 mg tablet Take 1 tablet (5 mg total) by mouth 2 (two) times a day 60 tablet 6 ??? atorvastatin (LIPITOR) 40 mg tablet Take 1 tablet (40 mg total) by mouth daily 90 tablet 3 ??? carvedilol (COREG) 6.25 mg tablet Take 1 tablet (6.25 mg total) by mouth 2 (two) times a day with meals 180 tablet 3 ??? clopidogrel (PLAVIX) 75 mg tablet Take 1 tablet (75 mg total) by mouth daily 90 tablet 3 ??? fenofibrate nanocrystallized (TRICOR) 145 mg tablet Take by mouth ??? furosemide (LASIX) 20 mg tablet TAKE 3 TABLETS DAILY DOSAGEINCREASE 270 tablet 3 ??? hydroCHLOROthiazide (HYDRODIURIL) 25 mg tablet ??? niacin 500 mg tablet Take 1 tablet (500 mg total) by mouth 2 (two) times a day with meals 180 tablet 3 ??? potassium chloride ER (KLOR-CON) 20 mEq CR tablet Take 1 tablet (20 mEq total) by mouth 2 (two)times a day 180 tablet 3 ??? quinapril (ACCUPRIL) 40 mg tablet ??? HYDROcodone-acetaminophen (NORCO) 5-325 mg per tablet 0 Current Facility-Administered Medications Medication Dose Route Frequency Provider Last Rate Last Dose ??? sodium chloride 0.9% flush 0.5-20 mL 0.5-20 mL intra-catheter PRN Patti Montanez NP ??? sodium chloride 0.9% infusion 30 mL/hr intravenous Continuous Patti Montanez NP 30 mL/hrat 11/05/19 0836 30 mL/hr at 11/05/19 0836 Laboratory review: Chemistry BMP No results found for: GLUCOSE, CALCIUM, SODIUM, POTASSIUM, CO2, BUNSER, CREATININE Current meds/Labs/Test Results that may affect sedation reviewed: Yes Last PO Intake: HEENT Exam: negative Sedation Plan: Deep (EM priviledged/Patient Relations Specialist only) Cosigned by Omayra Lockhart DO at 11/05/2019 9:27 AM HEADLINE WRITER LINE WRITER LINE WRITER documented in this encounter Plan of Treatment Scheduled Orders Name Type Priority Associated Diagnoses Orde r Schedule ECG 12 lead ECG Routine Once for 1 Oc currences starting 11/05/2019 until 11/05/2019 documented as of this encounter Procedures Procedure Name Priority Date/Time Associated Diagnosis Comments TRANSESOPHAGEAL ECHO (WILMER) W DOPPLER/CF W CARDIOVERSION Routine 11/05/2019 10:26 AM HEADLINE WRITER Atrial fibrillation, unspecified type (CMS/HCC) POC BLOOD GAS AND CHEMISTRIES, ARTERIAL Routine 11/05/2019 8:29 AM HEADLINE WRITER documented in this encounter Results * TRANSESOPHAGEAL ECHO (WILMER) W DOPPLER/CF W CARDIOVERSION (11/05/2019 10:26 AM HEADLINE WRITER) Anatomical Region Laterality Modality Echocardiography 11/05/2019 10:0 0 AM HEADLINE WRITER Narrative 11/05/2019 3:44 PM HEADLINE WRITER Patient name: Du Anderson Date of test: 11/05/2019 Date of : 1955 (M) [facility] #: [id number] ?Location: [facility] Cardiac Diagnostic Lab Interpreted by: Omayar Lockhart MD Collision Center Manager: Anil Ramos MD RN: Reason for Test: [...] 2=Hypo 3=Akinetic 4=Dyskin. 5=Aneurysm 0=Not visualized) Short Spreckels-Gastric:=2 S=2 I=2 P=2 L=2 A=2 Long Spreckels-Gastric:BP=2 BA=2 MP=2 MA=2 AP=2 AA=2 Chamber Dimensions: RA: markedly increased LA: Moderately increased, 5.8 cm RV: LV: LV function: Moderate global left ventricular dysfunction. RV function: Normal Pericardium: No pericardial effusion seen Diastolic function: ??Atrial Septum: Lipomatous Hypertrophy Wall Thickness: RV: Normal LV: Normal Sedation/Tolerance: ??Sedation: WILMER performed with intravenous sedation. ??Meds Admin: ?160 mg of propofol boluses given [...] MR, no MS, moderate TV regurgitation, trace IL. ? WILMER Summary ? Anil Ramos MD [...] - 15:44:33 by Omayra Lockhart MD ?? Safety Risk Lead: Anil Ramos MD By signing this report, the attending retail financial analyst certifies that he or she has personally supervised and interpreted the echocardiogram and has reviewed and or edited and agrees with the written comments contained within the report. Procedure Note Omayra Lockhart, - 11/05/2019 Patient name: Du Anderson Date of test: 11/05/2019 Date of : 1955 () [facility] #: [id number] Location: [facility] Cardiac Diagnostic Lab Interpreted by: Omayra Lockhart MD Collision Center Manager: Anil Ramos MD RN: Reason for Test: [...] 2=Hypo 3=Akinetic 4=Dyskin. 5=Aneurysm 0=Not visualized) Short Spreckels-Gastric:=2 S=2 I=2 P=2 L=2 A=2 Long Spreckels-Gastric:BP=2 BA=2 MP=2 MA=2 AP=2 AA=2 Chamber Dimensions: [...] MR, no MS, moderate TV regurgitation, trace IL. WILEMR Summary Anil Ramos MD performed the WILMER [...] 11/05/2019 - 15:44:33 by Omayra Lockhart MD Safety Risk Lead: Anil Ramos MD By signing this report, the attending retail financial analyst certifies that he or she has personally supervised and interpreted the echocardiogram and has reviewed and or edited and agrees with the written comments contained within the report. Hussain Sal MD CV ECHO PROCEDURES Final Result * POC Blood Gas and Chemistries, Arterial - (11/05/2019 8:29 AM HEADLINE WRITER) [facility] POC 3.4 3.3 - 4.9 mmol/L [facility] Blood specimen (specimen) 11/05/2019 8:29 AM HEADLINE WRITER 11/05/2019 8:29 AM HEADLINE WRITER us Hussain Sal MD LAB POCT ORDERABLES - DEV ICE Final Result [facility] Department [place] [address] documented in this encounter Visit Diagnoses Diagnosis Atrial fibrillation, unspecified type (HCC) Abnormal cardiovascular stress test Other nonspecific abnormal cardiovascular system function study Shortness of breath documented in this encounter Administered Medications Inactive Administered Medications - up to 3 most recent administrations Medication Order MAR Action Action Date Dose Rate Site sodium chloride 0.9% infusion 30 mL/hr, intravenous, Continuous, Starting on Alina 11/05/19 at 0845, Pre-Procedure (CV) Rate/Dose Change 11/05/2019 9:31 AM HEADLINE WRITER 30 mL/hr New Bag 11/05/2019 8:36 AM HEADLINE WRITER 30 mL/hr 30 mL/hr documented in this encounter Orders Medications Ordered That Laith ht Not Have Been Administered Count Last Ordered Date First Ordered Date sodium chloride 0.9% flush 0.5-20 mL 1 10/09 documented in this encounter Care Teams Direct Marketing Coordinator Relationship Specialty Start Date End Date Gianluca Price MD PCP - General 06/18/17 documented as of this encounter
--- OUTSIDE RECORDS SUMMARY | 2024-10-05 02:53 | XMS_ITS | Encounter Summary ---
Author Organization [facility] Address [address] [place] [address] Phone Care Team Providers Care Copying Machine Mechanic Name Role Phone Gianluca Price MD [...] Doppler/CF Hussain Sal MD Phone: tel: fax: [facility] (All Locations) Referral ID Status Reason Start Date Expiration Date Visits Re quested Visits Authorized [id number] Closed 07/05/2020 08/04/2021 1 1 Reason for Visit * Cardiology (Routine) - Closed Specialty Diagnoses / Procedures Referred By Antonietta livingston Referred To Contact Cardiology Diagnoses Cardiovascular disease Gianluca Price MD [address] [place] [address] Phone: tel: fax: Hussain Sal MD [address] [place] [address] Phone: tel: fax: Referral ID Status Reason Start Date Expiration Date V isits Requested Visits Authorized [id number] Closed Specialty Services Required 07/04/2020 08/03/2021 1 1 Encounter Details Date Type Department Care Team (Latest Contact Info) Description 07/05/2020 2:00 PM CDT Office Visit [facility] Cardiology [address] [place] [address] Hussain Sal MD [address] [place] [address] Atrial fibrillation, unspecified type (CMS/HCC) (Primary Dx); Shortness of breath; Hypertension, unspecified type; Triple [...] on file 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 Gender Identity Not on file Sexual Orientation Not on file Occupation Industry Job Start Date Job End Date Retired Not on file Not on file Not on file documented as of this encounter Last Filed Vital Signs Vital Sign Reading Time Taken Comments Blood Pressure 112/79 07/05/2020 1:42 PM CDT Pulse 101 07/05/2020 1:42 PM CDT Temperature 36.6 ??C (97.8 ??F) 07/05/2020 1:42 PM CD T Respiratory Rate - - Oxygen Saturation 98% 07/05/2020 1:42 PM CDT Inhaled Oxygen Concentration - - Weight 147.2 kg (324 lb 9.6 oz) 07/05/2020 1:42 PM CDT Height 193 cm (6' 4 ) 07/05/2020 1:42 PM CDT Body Mass Index 39.51 07/05/2020 1:42 PM CDT documented in this encounter Patient Instructions * Patient Instructions* Hussain Sal MD - 07/05/2020 2:00 PM CDT 1. Please schedule an echo soon 2. Please walk daily 3. Please draw labs today 4. If your TG are are still high, I may switch the Niaspan to another medication. documented in this encounter Progress Notes * Hussain Sal MD - 07/05/2020 2:00 PM CDT Images from the original note were not included. Patient's Name: Du Anderson : 1955 [place]: 07/05/2020 PRINCIPAL AND SECONDARY DIAGNOSES: 1. Complex coronary [...] Eliquis for his atrial fibrillation. We have discontinuedthe aspirin. He does not describe any chest [...] by mouth twice a day PHYSICAL EXAM: Vitals BP 112/79 Pulse 101 Temp 36.6 ??C (97.8 ??F) Ht 193 cm (6' 4 ) Wt (!) 147.2 kg (324 lb 9.6 oz) SpO2 98% BMI 39.51 kg/m?? GEN: pleasant in NAD; alert, comfortable HENT: NCAT, MMM, anicteric Neck: no trauma, no JVD CVS: RRR, S1S2, no rubs/murmurs/gallops PULM: non-labored, CTAB, good inspiratory effort ABD: soft, not tender to palpation EXT: equal radial pulses, no edema Neuro: motor and sensation grossly intact Skin: warm, dry, no cyanosis OBJECTIVE DATA: Lab Results Component Value Date GLUCOSE 110 11/30/2019 CALCIUM 10.2 11/30/2019 SODIUM 135 11/30/2019 POTASSIUM 3.5 11/30/2019 CO2 23 11/30/2019 CHLORIDE 100 11/30/2019 BUNSER 11 11/30/2019 CREATININE 0.79 (L) 11/30/2019 No results found for: NTPROBNP Lab Results Component Value Date WBC 7.8 02/22/2020 HGB 14.5 02/22/2020 HCT 43.5 02/22/2020 MCV 91.6 02/22/2020 LABPLAT 250 02/22/2020 Lab Results Component Value Date LDL 44 06/02/2019 HDL 44 06/02/2019 ASSESSMENT AND PLAN: Du Anderson is a [...] will continue KCL to 40 mEq daily It was pleasure to participate in the care of Du Anderson. We will see him back in six months. Sincerely, Hussain Sal MD, MSc Product Assembler of Cardiology [facility] documented in this encounter Plan of Treatment [...] #: 0 Date of : 1955 (M) Pacs Specialist: Genie Soria AMBREEN Referring Physician: HUSSAIN SAL MD Contrast Agent: 1.5 ml Optison Administered, (1.5 ml wasted). Contrast Administered by: Sydney Nunez RN Supervised/Interpreted by: Farhan Griffith MD Diagnosis: Location: [facility] Reason for test: Afib MV Structure: [...] 2=Hypo 3=Akinetic 4=Dyskin./Aneurysm 0=Not visualized) Parasternal Long [place]:MAS=2 BAS=2 MIL=2 ALICJA=2 Parasternal Short [place]:MAS=2 MIS=2 NJ=2 MIL=2 MAL=2 MA=2 Apical 4 Chambers:=2 MIS=2 BIS=2 BAL=2 MAL=2 AL=2 AC=2 Apical 2 Chambers:AI=2 NJ=2 BI=2 BA=2 MA=2 AA=2 AC=2 LV Global [...] MD By signing this report, the attending cad engineer certifies that he or she has personally supervised and interpreted the echocardiogram and has reviewed and or edited and agrees with the written comments contained within the report. Procedure Note Farhan Griffith MD - 07/29/2020 Patient name: Du Anderson Date of test: 07/29/2020 Type of test: TTE w/Doppler [facility] #: 0 Date of : 1955 (M) Pacs Specialist: Genie Soria RDCS Referring Physician: HUSSAIN SAL MD Contrast Agent: 1.5 ml Optison Administered, (1.5 ml wasted). Contrast Administered by: Sydney Nunez RN Supervised/Interpreted by: Farhan Griffith MD Diagnosis: Location: [facility] Reason for test: Afib MV Structure: [...] 2=Hypo 3=Akinetic 4=Dyskin./Aneurysm 0=Not visualized) Parasternal Long [place]:MAS=2 BAS=2 MIL=2 ALICJA=2 Parasternal Short [place]:MAS=2 MIS=2 NJ=2 MIL=2 MAL=2 MA=2 Apical 4 Chambers:=2 MIS=2 BIS=2 BAL=2 MAL=2 AL=2 AC=2 Apical 2 Chambers:AI=2 NJ=2 BI=2 BA=2 MA=2 AA=2 AC=2 LV Global [...] MD By signing this report, the attending cad engineer certifies that he or she has personally supervised and interpreted the echocardiogram and has reviewed and or edited and agrees with the written comments contained within the report. Hussain Sal MD CV ECHO PROCEDURES Final Result * (ABNORMAL) CBC with auto differential (07/29/2020 10:07 AM CDT) [facility] WBC 5.3 3.8 - 9.9 K/cumm [facility] Hgb 13.5 13.0 - 17.5 g/dL [facility] Hct 40.0 38.9 - 50.3 % [facility] Plt 217 150 - 400 K/cumm [facility] MPV 11.5 9.1 - 12.3 fL [facility] RBC 4.22(L) 4.30 - 5.80 M/cumm [facility] MCV 94.8 81.3 - 96.4 fL [facility] MCH 32.0 27.1 - 33.3 pg [facility] MCHC 33.8 32.3 - 35.7 g/dL [facility] RDW CV 13.0 11.1 - 14.9 % [facility] RDW SD 45.1 35.7 - 48.1 fL [facility] NRBC abs 0.00 0.00 - 0.01 K/cumm [facility] Blood specimen (specimen) 07/29/2020 10:07 AM CDT 07/29/2020 11:47 AM CDT us Hussain Sal MD LAB BLOOD ORDERABLES Zayra gupta Result [facility] [place] [address] * Lipid panel (07/29/2020 10:07 AM CDT) Cholesterol 128 30 - 199 mg/dL [facility] Comment: Interpretive Data Ages < [...] revised on 2018. Triglycerides 121 <=149 mg/dL [facility] Comment: Interpretive Data Ages < [...] revised on 2018. HDL 41 >=40 mg/dL [facility] Comment: Interpretive Data Ages < or [...] on 2018. LDL, calculated 63 <=129 mg/dL [facility] Comment: Interpretive Data Ages < or [...] on 2018. Non-HDL Cholesterol 87 mg/dL [facility] Comment: Interpretive Data Ages < or [...] last revised on 2018. Chol/HDL ratio 3 [facility] Blood specimen (specimen) 07/29/2020 10:07 AM CDT 07/29/2020 11:47 AM CDT us Hussain Sal MD LAB BLOOD ORDERABLES Zayra gupta Result [facility] [place] [address] * (ABNORMAL) Pro B-type natriuretic peptide (07/29/2020 10:07 AM CDT) NT-proBNP 948(H) <=300 pg/mL [facility] Comment: Interpretive Comments: A. Dyspnea in [...] CDT 07/29/2020 11:47 AM CDT us Hussain Sal MD LAB BLOOD ORDERABLES Zayra gupta Result [facility] Department [place] [address] * Basic metabolic panel (07/29/2020 10:07 AM CDT) Sodium 136 135 - 145 mmol/L [facility] Potassium, pl 4.3 3.3 - 4.9 mmol/L [facility] Chloride 100 97 - 110 mmol/L [facility] CO2 27 22 - 32 mmol/L [facility] Anion gap 9 2 - 15 mmol/L [facility] BUN 24 8 - 25 mg/dL [facility] Creatinine 0.93 0.80 - 1.30 mg/dL [facility] Glucose 102 70 - 199 mg/dL [facility] Comment: Interpretive Data Fasting glucose [...] 2017. Calcium 9.8 8.5 - 10.3 mg/dL [facility] Blood specimen (specimen) 07/29/2020 10:07 AM CDT 07/29/2020 11:47 AM CDT Narrative [facility] - 07/29/2020 12:25 PM CDT fax BMP results to [phone] Hussain Sal MD LAB BLOOD ORDERABLES Zayra gupta Result Performing Organization Address City/State/[facility] Co de Phone Number [facility] [place] [address] documented in this encounter Visit Diagnoses Diagnosis Atrial fibrillation, unspecified type (HCC)- Primary Shortness of breath Hypertension, unspecified type Triple vessel coronary artery disease Coronary atherosclerosis of unspecified type of vessel, [place] or graft Hyperlipidemia, unspecified hyperlipidemia type Cardiovascular disease Unspecified cardiovascular disease Atrial fibrillation, unspecified type (HCC) Shortness of breath Hypertension, unspecified type Triple vessel coronary artery disease Coronary atherosclerosis of unspecified type of vessel, [place] or graft Hyperlipidemia, unspecified hyperlipidemia type Cardiovascular disease Unspecified cardiovascular disease Atrial fibrillation, unspecified type (HCC) Shortness of breath Hypertension, unspecified type Triple vessel coronary artery disease Coronary atherosclerosis of unspecified type of vessel, [place] or graft Hyperlipidemia, unspecified hyperlipidemia type Cardiovascular disease Unspecified cardiovascular disease documented in this encounter Orders Outpatient Referral Count Last Ordered Date Fir st Ordered Date AMB REFERRAL TO CARDIOLOGY 07/05/2020 documented in this encounter Care Teams Copying Machine Mechanic Relationship Specialty Start Date End Date Gianluca Price MD PCP - General 06/18/17 documented as of this encounter
--- OUTSIDE RECORDS SUMMARY | 2024-10-05 02:53 | XMS_ITS | Encounter Summary ---
Author Organization [facility] Address [address] [place] [address] Care Team Providers Care Computer Technology Instructor Name Role Phone Gianluca Price MD Primary Care Provider Reason for Referral * Diagnostic Imaging (Routine) - Closed Specialty Diagnoses / Procedures Referred By Contac t Referred To Contact Procedures XR Spine Lumbar 2 or 3 Views [facility] [address] [place] [address] [place] [phone] Phone: tel: fax: Referral ID Status Reason Start Date Expiration Date Visits Re quested Visits Authorized [id number] Closed 07/05/2020 08/04/2021 1 1 Encounter Details Date Type Department Care Team (Late st Contact Info) Description 07/05/2020 Orders Only [facility] [address] [place] [address] [place] [phone] Abran Canales MD [address] [place] [address] Social History Tobacco Use Types Packs/Day [...] on file 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 Gender Identity Not on file Sexual Orientation Not on file Occupation Industry Job Start Date Job End Date Retired Not on file Not on file Not on file documented as of this encounter Plan of Treatment Not on file documented as of this encounter Procedures Procedure Name Priority Date/Time Associated Diagnosis Comments XR SPINE LUMBAR 2 OR 3 VIEWS Schedule Routine, Read Routine (OP Routine) 06/29/2020 documented in this encounter Results * XR Spine Lumbar 2 or 3 Views (06/29/2020) Anatomical Region Laterality Modality Spine N/A Radiographic Alexandra ging us Historical Provider MD FRANK XR PROCEDURES Final R esult documented in this encounter Visit Diagnoses Not on filedocumented in this encounter Care Teams Computer Technology Instructor Relationship Specialty Start Date End Date Gianluca Price MD PCP - General 06/18/17 documented as of this encounter
--- OUTSIDE RECORDS SUMMARY | 2024-10-05 02:53 | XMS_ITS | Encounter Summary ---
Author Organization [facility] Healthcare Address [address] [place] [address] Care Team Providers Care Trolley Worker Name Role Phone Gianluca Price MD Primary Care Provider Encounter Details Date Type Department Care Team (Late st Contact Info) Description 11/30/2019 12:50 PM FILM EDITOR SUPERVISOR - 11/30/2019 2:50 PM FILM EDITOR SUPERVISOR Surgery [facility] [address] [place] [address] Hussain Mitchell MD [address] [facility] [address] [place] [address] LEFT HEART CATHETERIZATION WITH CORONARY ANGIOGRAPHY AND WITH OR WITHOUT LEFT VENTRICULOGRAM 28599 Surgery Details Date/Time Status Location OR Service Patient Class Case Class Case Type Trauma Case? 11/30/2019 12:50 PM Posted [facility]SF[facility] PUMPER CCL 04 Cardiovascular Outpatient Elective Panel 1 Procedure LRB Anes Op Region Wound Class Comments LEFT HEART CATHETERIZATION W ITH CORONARY ANGIOGRAPHY AND WITH OR WITHOUT LEFT VENTRICULOGRAM 53802 N/A Surgeon Surgeon Role Service Panel Shashi Oliva MD Fellow Cardiovascular 1 Hussain Mitchell MD Primary Cardiovascular 1 Case Notes 1000 arrivalE-LNormal BMP from 11-11-19, being repeated this AM documented in this encounter Social History Tobacco Use Types Packs/Day Years Used Date Smoking Tobacco: Never Smokeless Tobacco: Never Alcohol Use Standard Drinks/Week Comments Yes 0 (1 standard drink = 0.6 oz pur e alcohol) Sex and Gender Information Value Date Recorded Sex Assigned at Not on file Legal Sex Male 3:11 AM FILM EDITOR SUPERVISOR Gender Identity Not on file Sexual Orientation Not on file documented as of this encounter Last Filed Vital Signs Vital Sign Reading Time Taken Comments Blood Pressure 134/93 11/30/2019 2:50 PM FILM EDITOR SUPERVISOR Pulse 112 11/30/2019 2:50 PM FILM EDITOR SUPERVISOR Temperature 36.4 ??C (97.5 ??F) 11/30/2019 11:[address] Respiratory Rate 16 11/30/2019 2:50 PM FILM EDITOR SUPERVISOR Oxygen Saturation 97% 11/30/2019 2:50 PM FILM EDITOR SUPERVISOR Inhaled Oxygen Concentration - - Weight 149.7 kg (330 lb) 11/30/2019 11:10 AM FILM EDITOR SUPERVISOR Height 195.6 cm (6' 5 ) 11/30/2019 11:10 AM FILM EDITOR SUPERVISOR Body Mass Index 39.13 11/30/2019 11:10 AM FILM EDITOR SUPERVISOR documented in this encounter Discharge Instructions * Discharge Instructions* Patti Montanez, ELECTRONICS ENGINEERING TECHNICIAN - 11/30/2019 1:03 PM FILM EDITOR SUPERVISOR Discharge Instructions For Cardiac Catheterization (Radial Approach) [...] hand and fingers when you go home. ??? Perform hand exercises by making a fist and opening it 5-10 times a minute as often as you remember. ??? Due to your sedation: do not drive for 24 hours, and do not make any legal decisions for 24 hours. ??? Keep the site dry. ??? Do not soak your arm in water or a bath for 3 days. Washing your hands and showering is okay. ??? Do not lift more than 5 pounds with your affect arm for 3 days. ??? No heavy impact activities for one week. ??? All activities are permitted after one week if no problems occur. Continue to take your home medications on your regular schedule Restart Zayda powell, SaturdayNov 30, PM dose If you notice bleeding at the puncture site: ??? Apply gentle direct pressure with your fingers over the site for 15 minutes. After 15 minutes you may release the pressure gently. ??? If the bleeding re-starts or continues; reapply direct pressure and call 911. ??? NEVER wrap a dressing or adhesive tape completely around your wrist as this can cause serious circulation complications. Call your doctor immediately for any of these rare but serious problems. If you are unable to reach your doctor go to the nearest Emergency Room. ??? A swelling or bruise that is increasing in size or getting worse rather than disappearing. ??? Severe pain at the puncture site, affected hand or forearm ??? Your affected hand becomes cold, pale, or numb as compared to your other hand. ??? Your arm becomes red, warm to the touch, or swollen as compared to your other arm. ??? IV dye reactions are rare but can occur. If you develop a rash, hives, or itching of the skin or have throat tightness, notice selling of the tongue or lips, you may be having a dye reaction. For routine questions or concerns regarding your care after your catheterization please feel free to call us. From 7am-5pm M-F call our Outpatient Nurse Coordinators at [phone]. If you need to speak to someone after 5pm please call [facility] at [phone] and ask the annealing torch operator topage the Cardiac Alumina Plant Supervisor Fellow supervisor communications and signals. EDITOR SUPERVISOR documented in this encounter Medications at Time of Discharge allopurinol (ZYLOPRIM) 300 mg tabletIndications:prev ention of acute gout attack Take 1 tablet (300 mg total) by mouth nightly 06/01/2018 amLODIPine (NORVASC) 5 mg tabletIndications:Hype rtension, unspecified type Take 1 tablet (5 mg total) by mouth daily 90 tablet 3 10/05/2019 0 apixaban (ELIQUIS) 5 mg tablet Take 1 tablet (5 mg total) by mouth 2 (two) times a day 60 tablet 6 10/22/2019 0 atorvastatin (LIPITOR) 40 mg tablet Take 1 tablet (40 mg total) by mouth daily 90 tablet 3 10/05/2019 0 carvedilol (COREG) 6.25 mg tablet Take 1 tablet (6.25 mg total) by mouth 2 (two) times a day with meals 180 tablet 3 10/05/2019 0 clopidogrel (PLAVIX) 75 mg tablet Take 1 tablet (75 mg total) by mouth daily 90 tablet 3 10/05/2019 0 fenofibrate nanocrystallized (TRICOR) 145 mg tablet Take by mouth 0 furosemide (LASIX) 40 mg tablet Take 20 mg by mouth 2 (two) times a day 0 hydroCHLOROthiazide (HYDRODIURIL) 25 mg tablet Take 25 mg by mouth daily 06/03/2018 2 HYDROcodone-acetaminop hen (NORCO) 5-325 mg per tabletIndications:Pain 0 04/05/2018 0 niacin 500 mg tablet Take 1 tablet (500 mg total) by mouth 2 (two) times a day with meals 180 tablet 3 10/05/2019 3 potassium chloride ER (KLOR-CON) 20 mEq CR tablet Take 20 mEq by mouth 2 (two) times a day 1 quinapril (ACCUPRIL) 40 mg tablet Take 40 mg by mouth daily 05/23/2018 2 spironolactone (ALDACTONE) 25 mg tablet Take 1 tablet (25 mg total) by mouth daily 30 tablet 11 11/06/2019 0 documented as of this encounter Discharge Disposition Disposition Code Departure Means Destination Discharge to home or self care documented in this encounter Miscellaneous Notes * Perioperative Nursing Note - Sera Martinez, RN - 11/30/2019 4:15 PM FILM EDITOR SUPERVISOR DC instructions to pt/spouse without question/concern, verb understanding. Dressing c/d/i to right wrist without bleeding/hematoma, pulses intact, skin w/d/p, denies pain to site. DC both IV with cathlon intact. Dressed with assist of spouse. Taken out via wc in stable cond for dc home with spouse driving. EDITOR SUPERVISOR * Pre-Sedation Documentation - Patti Montanez NP - 11/30/2019 10:57 AM CST Sedation Plan ASA 2 - Mild systemic disease Risks, benefits, and alternatives discussed with patient. History of sedation/Anesthesia complications:No History of transfusion reaction: No Current Facility-Administered Medications Medication Dose Route Frequency Provider Last Rate Last Dose ??? sodium chloride 0.9% flush 0.5-20 mL 0.5-20 mL intra-catheter PRN Patti Montanez NP ??? sodium chloride 0.9% infusion 50 mL/hr intravenous Continuous Patti Montanez NP Laboratory review: Chemistry BMP No results found for: GLUCOSE, CALCIUM, SODIUM, POTASSIUM, CO2, BUNSER, CREATININE and CBC:No results found for: WBC, RBC, HGB, HCT, MCV, MCH, MCHC, RDW, RDWCV, RDWSD, MPV, NRBC, NRBCABS, NRBCPCT Current meds/Labs/Test Results that may affect sedation reviewed: Yes Last PO Intake: 16oz water 11/30/2019 @ 0800, solids 11/29/2019 @ 2100 HEENT Exam: negative Sedation Plan: Moderate Cosigned by Hussain Mitchell MD at 11/30/2019 11:22 AM FILM EDITOR SUPERVISOR EDITOR SUPERVISOR EDITOR SUPERVISOR * Pre-Cardiac Catheterization Workup and H&P - Patti Montanez NP - 11/26/2019 2:29 PM CST PRE-CARDIAC CATHETERIZATION WORKUP Patient Name: Du Anderson Patient Patient : 1955 Date of Procedure: 11/30/2019 ORDERING CASTER OPERATOR: Surgeon(s): Hussain Mitchell MD Procedure(s): LEFT HEART CATHETERIZATION WITH CORONARY ANGIOGRAPHY AND WITH OR WITHOUT LEFT VENTRICULOGRAM 09273 Requested Diagnostic: [] Coronary Angiograms Only [x] [...] VSD Closure [] TAVR [] Other Intervention: NARRATIVE:63 year old male with h/o Hypertension, Obstructive sleep apnea, Dyslipidemia, CAD s/p Complex coronary disease. PCI of trifurcating left main circumflex, inferior ramus, superior ramus, and ostial LAD in a staged manner with multiple CRISTHIAN stents in 2015, atrial fibrillation s/p WILMER/CV 11-05-19. WILMER showed Mod-severe MR and Moderate TR. Patient is pre op hip surgery. MYOCARDIAL PET/CT PERFUSION IMAGING stress test revealed Evidence of moderate size and - severe ischemia in the basal- and mid-segment of the anterior wall extending into the anterolateral wall. Denies chest pain or SOB. Referred for C. ALLERGIES: Rosuvastatin Topical Iodine Allergy: [x] No [] Yes IV Contrast Allergy: [x] No [] Yes If yes, Premedicated for contrast allergy: [] No [] Yes PRE-Procedure Medications Antiarrhythmic Agent: [] Yes [x] No [] Contraindicated Aspirin: [] Yes [x] No [] Contraindicated Beta Anatoliy (Any): [x] Yes [] No [] Contraindicated Ca Channel Anatoliy (Any): [x] Yes [] No [] Contraindicated Long Acting Nirates (Any): [] Yes [x] No [] Contraindicated Non-Statin (Any): [] Yes [x] No [] Contraindicated Ranolazin: [] Yes [x] No [] Contraindicated Statin (Any): [x] Yes [] No [] Contraindicated Indications for Alumina Plant Supervisor visit (Select all that apply): [] ACS less than or equal to 24 hours [] ACS greater than 24 hours [] Stable/Known CAD [] Cardiac Arrhythmia [] Post Cardiac Transplant [] New Onset Angina less than or equal to 2 months [] Suspected CAD [] Worsening Angina [] Cardiomyopathy [x] Pre-operative evaluation [] Valvular Disease [] LV [...] ESRD [] Dialysis [] HD []PD: Prior [place]: [] Yes [x] No If Yes, Most Recent [place] Date: Tobacco Use Social History Tobacco Use Smoking Status Never Smoker Smokeless Tobacco Never Used If Current - Every Day and Cigarettes, Amount: Previous Cardiac and Peripheral Interventions: (Include hospital/procedure/most recent date) Cardiac Cath/Prior PCI:[x] Yes [] No If Yes, Most Recent PCI Date: 12-26-15 Report Available: [x] Yes [] No revascularization of all his left sided vessels: mid LCX, ostial and proximal inferior Ramus, ostial and proximal superior Ramus, ostial and proximal LAD at the trifurcation of the left main Prior CABG: [] Yes [x] No If Yes, Most Recent CABG Date: Report Available: [] Yes [] No Valvular Surgery: [] Yes [x] No Report Available: [] Yes [] No (Include percutaneous procedures): Peripheral Intervention: [] Yes [x] No Report Available: [] Yes [] No LABS Results for orders placed or performed in visit on 11/23/19 CBC with auto differential Result Value Ref Range WBC 8.4 3.8 - 10.8 Thousand/uL RBC, POC 5.18 4.20 - 5.80 Million/uL Hgb 15.5 13.2 - 17.1 g/dL Hct 46.0 38.5 - 50.0 % MCV 88.8 80.0 - 100.0 fL MCH 29.9 27.0 - 33.0 pg MCHC 33.7 32.0 - 36.0 g/dL Rdw 13.1 11.0 - 15.0 % Platelets 326 140 - 400 Thousand/uL MPV 11.9 7.5 - 12.5 fL Neutrophils, abs 5,804 1,500 - 7,800 cells/uL Lymphocytes, abs 1,655 850 - 3,900 cells/uL Monocyte abs 756 200 - 950 cells/uL Eosinophils, abs 118 15 - 500 cells/uL Basophils, abs 67 0 - 200 cells/uL Neutrophils 69.1 % Lymphocyte pct 19.7 % Monocytes 9.0 % Eosinophils 1.4 % Basophils 0.8 % 2-5-20 WBC HGB HCT pits PT INR PTT Na K+ Glucose BUN Cr HCG 143 4.4 96 15 0.80 Cath/PCI Indication: [] CAD (without Ischemic Sx) [] Stable Angina [] New Onset Angina less than or [...] NO If Yes, Newly Diagnosed: [] Yes [] No NYHS Class: [] Class I [] Class II [x] Class III [] Class IV HF Type: [] Diastolic [] Systolic [] Unknown Test Performed (Choose One): [] Exercise Stress Test (w/o imaging) [] Stress Echocardiogram [] Stress Nuclear [] Stress Imaging w/CMR [] Cardiac CTA If Yes, Result: Result: [] Negative [x] Positive [] Indeterminate IF Positive: Risk/Extent of ischemia: [] Low [] Intermediate [x] High FINDINGSEvidence of moderate size and - severe ischemia in the basal- and mid-segment of the anterior wall extending into the anterolateral wall. ?? LVEF Assessed: [x] Yes [] No If yes, Most recent LVEF30 %: ECHO: Nurse Coordinator: Lucia Hermosillo RN Date: 11-26-19 Time: 1443 PHYSICAL EXAM There were no vitals filed for this visit. General: NAD HEENT: EOMI, oropharynx clear Neck: Supple without thyromegaly Lungs: CTAB Cardiac: RRR, normal S1 and S2, no murmurs/rubs/gallops. JVP not elevated, no LE edema. Abdomen: obese, soft, nontender, nondistended Extremities: warm, no clubbing/cyanosis Neuro: grossly intact Psych: normal affect, mood, judgment Pulses Carotid/Bruit Brachial Radial Femoral/Bruit Popiteal DP PT Left 2+ 2+ Right 2+ 2+ EKG: Atrial fibrillation, prolonged QT IMPRESSION: 63yoM h/o CAD and MR, here for [facility] Clinical Frailty Scale: [] 1: Very Fit [] 2: Well [] 3: Managing Well [] 4: Vulnerable [x] 5: Mildly Frail [] 6: Moderately Frail [] 7: Severely Frail [] 8: Very Severely Frail [] 9: Terminally Ill PLAN: Procedure, risks, benefits and alternatives have been explained to the patient. The patient voiced understanding, consent is signed and orders are written. Form Completed/Reviewed and Assessment Completed by: Name: Patti Montanez ELECTRONICS ENGINEERING TECHNICIAN-C Date: 11/30/2019 Time: 1100 Cosigned by Hussain Mitchell MD at 11/30/2019 11:22 AM FILM EDITOR SUPERVISOR EDITOR SUPERVISOR EDITOR SUPERVISOR documented in this encounter Plan of Treatment Not on file documented as of this encounter Procedures Procedure Name Priority Date/Time Associated Diagnosis Comments POCT ACTIVATED CLOTTING TIME, LOW RANGE Routine 11/30/2019 12:42 PM FILM EDITOR SUPERVISOR LEFT HEART CATHETERIZATION WITH CORONARY ANGIOGRAPHY AND WITH AND WITHOUT LEFT VENTRICULOGRAM Routine 11/30/2019 12:41 PM FILM EDITOR SUPERVISOR CBC WITHOUT DIFFERENTIAL Routine 11/30/2019 10:12 AM FILM EDITOR SUPERVISOR BASIC METABOLIC PANEL Routine 11/30/2019 10:12 AM FILM EDITOR SUPERVISOR ECG 12-LEAD Routine 11/13/2019 9:27 AM FILM EDITOR SUPERVISOR documented in this encounter Results * (ABNORMAL) POCT Activated clotting time, low range (11/30/2019 12:42 PM FILM EDITOR SUPERVISOR) ACT 277(H) 123 - 168 sec [facility] Blood specimen (specimen) 11/30/2019 12:42 PM FILM EDITOR SUPERVISOR 11/30/2019 12:42 PM FILM EDITOR SUPERVISOR Hussain Mitchell MD LAB POCT ORDERABLES - DEV ICE Final Result [facility] Department [place] [address] * LEFT HEART CATHETERIZATION WITH CORONARY ANGIOGRAPHY AND WITH AND WITHOUT LEFT VENTRICULOGRAM (11/30/2019 12:41 PM FILM EDITOR SUPERVISOR) Anatomical Region Laterality Modality X-Ray Angiograph y Narrative 11/30/2019 1:09 PM FILM EDITOR SUPERVISOR ?? Cardiovascular Procedure Center [facility] [address] [address] [place] [address] CORONARY ANGIOGRAM AND PERCUTANEOUS CORONARY INTERVENTION REPORT Patient: Du Anderson : ??1955 MR number: [id number] Date of Service: ??11/30/2019 Vp Revenue Cycle: ?? Hussain Mitchell MD Fellow: ?Shashi Oliva MD INDICATION: ??Mr. Du Anderson is undergoing cardiac catheterization to evaluate his abnormal stress test, drop in EF to 25%, severe MR and new onset AFib, discovered preoperatively prior to hip surgery. He is a very pleasant 59-year-old gentleman who has a history of hypertension, obesity (central abdominal obesity), sedentary lifestyle, obstructive sleep apnea, on CPAP for 7-8 years, chronic leg edema and congestive heart failure on Lasix, LVEDP 22 mmHg last cath, osteoarthritis, dyslipidemia, atherogenic LDL particle size of 215, type B pattern, and an elevated lipoprotein (a) of 215 (3 times the reference value of 75), and known CAD: 1. He underwent cardiac catheterization on 11/04/2015 which showed complex and calcified left coronary disease at the trifurcation of an ostial LAD, a superior ramus, and an inferior ramus. We tested an FFR of the LAD and RCA and he did have a hemodynamically significant LAD lesion, but not the RCA. We advised surgical revascularization, however patient refused. 2. Then on 11/21/2015 he underwent a PCI of the LCX and inferior ramus with two CRISTHIAN stents. 3. On 12/26/2015 he underwent a complex ostial LAD and proximal superior ramus PCI: ??The superior ramus was stented using a ??a 2.25 x 28 mm PROMUS Premier CRISTHIAN stent and the ostial proximal LAD was stented using a 3.5 x 24 mm PROMUS Premier CRISTHIAN stent. He had been having symptoms of chronic shortness of breath, which recently worsened. ??He underwent an echo which showed a drop in his EF development of severe MR. He also developed AFib with RVR. ??His hip surgery was canceled and we brought him to [facility] for a WILMER guided cardioversion. ??The WILMER was performed on 11/05/2019 which showed moderate LV dysfunction and development of moderate-severe, central MR (ERO: 0.32, RVol: 44) without systolic flow reversal in the pulmonary veins. ??He underwent successful cardioversion. ??We then performed a myocardial PET-CT stress test, which showed moderate size and - severe ischemia in the basal- and mid-segment of the ??anterior wall extending into the anterolateral wall. ??He is now undergoing cardiac catheterization to evaluate his abnormal stress test, drop in EF and development of moderate to severe central MR. PROCEDURES PERFORMED: 1. Left coronary angiography. 2. Right coronary angiography. PROCEDURE: ?? The risks, benefits and alternatives of the procedures and moderate sedation were explained to the patient and informed consent was obtained. The patient was brought to the medical lab technician and placed on the table. The planned puncture sites were prepped and draped in the usual sterile fashion. The patient was sedated for the procedure. Cardiac catheterization performed. ?? Right radial artery access. The puncture site was infiltrated with 2 % lidocaine. The vessel was accessed using the modified Seldinger technique, a wire was threaded into the vessel, and a 6 Fr GlideSheath Slender was advanced over the wire into the vessel. Vasodilators and heparin were given after access obtained. ?? Left coronary artery angiography.A 5 Fr Ghanshyam catheter was advanced to the aorta and positioned in the vessel ostia under fluoroscopic guidance. Angiography was performed in multiple projections. Intracoronary nitroglycerin was given in order to achieve maximal vasodilatation. ?? Right coronary artery angiography. A 5 Fr Ghanshyam catheter was advanced to the aorta and positioned in the vessel ostia under fluoroscopic guidance. Angiography was performed in multiple projections. Intracoronary nitroglycerin was given in order to achieve maximal vasodilatation. ?? Weight-based heparin was given for procedural anticoagulation to maintain an ACT of 300 seconds by Hemochron throughout the case. ?? Contrast given. 100 ml Optiray 350. ? At the end of the case, a Trans Radial Band was applied to the right wrist and the arterial sheath was removed with hemostasis obtained. The patient was transported to the post-procedure holding area in stable condition. ?? There were no procedural complications. ?? I provided direct [id number] monitoring of conscious sedation which was administered by an independent trained nurse. RESULTS: Hemodynamics: Hemodynamic assessment demonstrates moderately elevated LVEDP of 20 mmHg. Coronary circulation: The coronary circulation is right-dominant. There was moderate 3 vessel disease of the RCA, LAD and Superior Ramus. Left main: Angiography showed minor luminar irregularities. ?? Proximal LAD: Angiography showed a 50% lesion. ?? Mid LAD: Angiography showed a 40% lesion. ?? Distal LAD: Angiography showed severe, diffuse disease. ?? 1st diagonal: Angiography showed severe, diffuse disease. ?? 1st septal: Angiography showed diffuse disease. ?? Proximal circumflex: Angiography showed a 40% lesion. ?? Mid circumflex: Angiography showed a 40% lesion. 1st obtuse marginal: Angiography showed minor luminar irregularities. ?? Superior Ramus: Angiography showed a 50% lesion. ?? Left AV groove artery: Angiography showed minor luminar irregularities. ?? Inferior Ramus: Angiography showed a 50% lesion. Proximal RCA: Angiography showed a 30% lesion. ?? Mid RCA: Angiography showed a 60% lesion. ?? Distal RCA: Angiography showed a 50% lesion. ?? Right PDA: Angiography showed diffuse disease. Right BETTY: Angiography showed diffuse disease. SUMMARY AND THERAPEUTIC RECOMMENDATIONS: ?? Du Anderson has [id number] 3 vessel disease of the RCA, LAD and superior ramus. ??His prior complex stents are patent with mild to moderate restenosis. ??We will continue to medically manage his coronary disease. ?? We will clear him for hip replacement surgery. ??We will continue to diurese him to optimize his heart failure prior to surgery; he is on Lasix 40 mg b.i.d. and spironolactone 25 mg once daily which we will continue. ?? Please continue Aspirin 81 mg daily, Clopidogrel 75 mg daily and high intensity statin. ?? Aggressive risk factor modification and medical therapy for secondary prevention of coronary artery disease. ?? The case was reviewed and discussed with the patient and his family. ?? I was present during the entire procedure and personally dictated or confirmed the above report. Hussain Mitchell MD 11/30/2019 1:08 PM us Hussain Mitchell MD CV CARDIAC CATH PROCEDURE S Final Result * (ABNORMAL) Basic metabolic panel (11/30/2019 10:12 AM FILM EDITOR SUPERVISOR) Sodium 135 135 - 145 mmol/L [facility] Potassium, pl 3.5 3.3 - 4.9 mmol/L [facility] Chloride 100 97 - 110 mmol/L [facility] CO2 23 22 - 32 mmol/L [facility] Anion gap 12 2 - 15 mmol/L [facility] BUN 11 8 - 25 mg/dL [facility] Creatinine 0.79(L) 0.80 - 1.30 mg/dL [facility] Glucose 110 70 - 199 mg/dL [facility] Comment: Interpretive Data Fasting glucose [...] 2017. Calcium 10.2 8.5 - 10.3 mg/dL [facility] Blood specimen (specimen) 11/30/2019 10:12 AM FILM EDITOR SUPERVISOR 11/30/2019 11:25 AM FILM EDITOR SUPERVISOR us Patti Cobb ELECTRONICS ENGINEERING TECHNICIAN LAB BLOOD ORDERABLES Final Re sult Performing Organization Address [facility] Co de Phone Number [facility] Department [place] [address] * (ABNORMAL) CBC without differential (11/30/2019 10:12 AM FILM EDITOR SUPERVISOR) WBC 10.5(H) 3.8 - 9.9 K/cumm [facility] Hgb 14.6 13.0 - 17.5 g/dL [facility] Hct 42.9 38.9 - 50.3 % [facility] Plt 294 150 - 400 K/cumm [facility] MPV 11.3 9.1 - 12.3 fL [facility] RBC 4.93 4.30 - 5.80 M/cumm [facility] MCV 87.0 81.3 - 96.4 fL [facility] MCH 29.6 27.1 - 33.3 pg [facility] MCHC 34.0 32.3 - 35.7 g/dL [facility] RDW CV 13.1 11.1 - 14.9 % [facility] RDW SD 41.1 35.7 - 48.1 fL [facility] NRBC abs 0.00 0.00 - 0.01 K/cumm [facility] Blood specimen (specimen) 11/30/2019 10:12 AM FILM EDITOR SUPERVISOR 11/30/2019 12:49 PM FILM EDITOR SUPERVISOR Narrative [facility] - 11/30/2019 1:01 PM FILM EDITOR SUPERVISOR To be drawn after hydration bolus complete us Patti Cobb ELECTRONICS ENGINEERING TECHNICIAN LAB BLOOD ORDERABLES Final Re sult Performing Organization Address [facility] [place]IP Co de Phone Number [facility] Department [place] [address] * ECG 12 lead (11/13/2019 9:27 AM FILM EDITOR SUPERVISOR) Ventricular Rate EKG/Min 95 BPM [facility] Atrial Rate 92 BPM [facility] QRS-Interval (MSEC) 104 ms [facility] QT-Interval (MSEC) 386 ms [facility] QTc 485 ms [facility] R Fellows -3 degrees [facility] T Fellows 7 degrees [facility] Diagnosis Atrial fibrillation Prolonged QT Abnormal ECG When compared with ECG of 26-DEC-2015 06:46, Atrial fibrillation is new Confirmed by AGUSTIN MENA M.D ([id number]) on 11/30/2019 1:19:08 PM [facility] 11/13/2019 9:27 AM FILM EDITOR SUPERVISOR 11/30/2019 1:19 PM FILM EDITOR SUPERVISOR us Patti Cobb NP ECG ORDERABLES Final Result Performing Organization Address [facility] [place]/[facility] Co de Phone Number [facility] documented in this encounter Visit Diagnoses Not on filedocumented in this encounter Administered Medications Inactive Administered Medications - up to 3 most recent administrations Medication Order MAR Action Action Date Dose Rate Site aspirin chewable tablet 162 mg 162 mg, oral, Once, On Sat11/30/19 at 1130, For 1 dose Given 11/30/2019 11:09 AM FILM EDITOR SUPERVISOR 162 mg fentaNYL (SUBLIMAZE) preservative free injection As needed, Starting on Sat11/30/19 at 1205, Intra-Procedure (CV) Given 11/30/2019 12:21 PM FILM EDITOR SUPERVISOR 12.5 mcg Given 11/30/2019 12:05 PM FILM EDITOR SUPERVISOR 50 mcg heparin 1,000 unit/mL injection As needed, Starting on Sat11/30/19 at 1225, Intra-Procedure (CV) Given 11/30/2019 12:25 PM FILM EDITOR SUPERVISOR 10,000 Units HYDROcodone-acetaminophen (NORCO) 5-325 mg per tablet 1 tablet 1 tablet, oral, Once, On Sat11/30/19 at 1130, For 1 dose, Indications: PainIndications:Pain Given 11/30/2019 11:09 AM FILM EDITOR SUPERVISOR 1 tablet ioversol (OPTIRAY 350) injection As needed, Starting on Sat11/30/19 at 1241, Intra-Procedure (CV) Given 11/30/2019 12:41 PM FILM EDITOR SUPERVISOR 100 mL lidocaine (XYLOCAINE) 10 mg/mL (1 %) injection As needed, Starting on Sat11/30/19 at 1208, Intra-Procedure (CV), Indications: Administration of Local AnesthesiaIndications:Administr ation of Local Anesthesia Given 11/30/2019 12:08 PM FILM EDITOR SUPERVISOR 10 mL Right Radial midazolam (VERSED) preservative free injection Administer over 2 Minutes, As needed, Starting on Sat11/30/19 at 1205, Intra-Procedure (CV) Given 11/30/2019 12:08 PM FILM EDITOR SUPERVISOR 1 mg Given 11/30/2019 12:05 PM FILM EDITOR SUPERVISOR 1 mg niCARdipine (CARDENE) 1 mg/10 mL in sodium chloride 0.9% (premix) As needed, Starting on Sat11/30/19 at 1228, Intra-Procedure (CV) Given 11/30/2019 12:38 PM FILM EDITOR SUPERVISOR 125 mcg Given 11/30/2019 12:28 PM FILM EDITOR SUPERVISOR 100 mcg sodium chloride 0.9% flush 0.5-20 mL 0.5-20 mL, intra-catheter, As needed, line care, Starting on Sat11/30/19 at 1011, Pre-Procedure (CV), Flush volume based on line type and size. Flush before and after each use. , Indications: FlushingIndications:Flushi ng sodium chloride 0.9% infusion 50 mL/hr, intravenous, Continuous, Starting on Sat11/30/19 at 1045, Pre-Procedure (CV) Rate/Dose Change 11/30/2019 12:42 PM FILM EDITOR SUPERVISOR 100 mL/hr 100 mL/hr New Bag 11/30/2019 11:19 AM FILM EDITOR SUPERVISOR 50 mL/hr 50 mL/hr sodium chloride 0.9% infusion 30 mL/hr, intravenous, Continuous, Starting on Sat11/30/19 at 1200, Pre-Procedure (CV) New Bag 11/30/2019 11:21 AM FILM EDITOR SUPERVISOR 30 mL/hr 30 mL/hr verapamil (ISOPTIN) injection Administer over 2 Minutes, As needed, Starting on Sat11/30/19 at 1222, Intra-Procedure (CV) Given 11/30/2019 12:22 PM FILM EDITOR SUPERVISOR 5 mg documented in this encounter Active and Recently Administered Medications Times are shown in FILM EDITOR SUPERVISOR. Scheduled Medication Order 11/28/2019 11/29/2019 11/30/2019 aspirin chewable tablet 162 mg (COMPLETED) 162 mg, oral, Once, On Sat11/30/19 at 1130, For 1 dose 1109 (Given - Provid er: Charlene Trejo RN) HYDROcodone-acetaminophen (NORCO) 5-325 mg per tablet 1 tablet (COMPLETED) 1 tablet, oral, Once, On Sat11/30/19 at 1130, For 1 dose, Indications: Pain 1109 (Given - Provid er: Charlene Trejo, SURJIT) Continuous Medication Order 11/28/2019 11/29/2019 11/30/2019 sodium chloride 0.9% infusion 50 mL/hr, intravenous, Continuous, Starting on Sat11/30/19 at 1045, Pre-Procedure (CV) 1119 (New Bag - Prov ider: Charlene Trejo RN)1242 (Rate/Dose Change - Provider: Tony Lubin RN - Comment: Physician order) sodium chloride 0.9% infusion 30 mL/hr, intravenous, Continuous, Starting on Sat11/30/19 at 1200, Pre-Procedure (CV) 1121 (New Bag - Prov ider: Charlene Trejo RN) PRN Medication Order 11/28/2019 11/29/2019 11/30/2019 acetaminophen (TYLENOL) tablet 650 mg 650 mg, oral, Every 4 hours PRN, 1st line for pain, fever, fever greater than 38.3 C, Starting on Sat11/30/19 at 1300, Recovery (CV), Indications: Fever, Pain fentaNYL (SUBLIMAZE) preservative free injection (CANCELED) As needed, Starting on Sat11/30/19 at 1205, Intra-Procedure (CV) 1205 (Given - Provid er: Tony Lubin RN)1221 (Given - Provider: Tony Lubin RN) heparin 1,000 unit/mL injection (CANCELED) As needed, Starting on Sat11/30/19 at 1225, Intra-Procedure (CV) 1225 (Given - Provid er: Shashi Oliva MD) ioversol (OPTIRAY 350) injection (CANCELED) As needed, Starting on Sat11/30/19 at 1241, Intra-Procedure (CV) 1241 (Given - Provid er: Shashi Oliva MD) lidocaine (XYLOCAINE) 10 mg/mL (1 %) injection (CANCELED) As needed, Starting on Sat11/30/19 at 1208, Intra-Procedure (CV), Indications: Administration of Local Anesthesia 1208 (Given - Provid er: Shashi Oliva MD) midazolam (VERSED) preservative free injection (CANCELED) Administer over 2 Minutes, As needed, Starting on Sat11/30/19 at 1205, Intra-Procedure (CV) 1205 (Given - Provid er: Tony Lubin RN)1208 (Given - Provider: Tony Lubin RN)1210 (Canceled Entry - Provider: Tony Lubin RN) niCARdipine (CARDENE) 1 mg/10 mL in sodium chloride 0.9% (premix) (CANCELED) As needed, Starting on Sat11/30/19 at 1228, Intra-Procedure (CV) 1228 (Given - Provid er: Shashi Oliva MD)1238 (Given - Provider: Shashi Oliva MD) sodium chloride 0.9% flush 0.5-20 mL 0.5-20 mL, intra-catheter, As needed, line care, Starting on Sat11/30/19 at 1011, Pre-Procedure (CV), Flush volume based on line type and size. Flush before and after each use. , Indications: Flushing 1153 (DEC Hold - Pro vider: Automatic Transfer Provider - Reason: Patient not available)2017 (DEC Unhold - Provider: Automatic Discharge Provider) verapamil (ISOPTIN) injection (CANCELED) Administer over 2 Minutes, As needed, Starting on Sat11/30/19 at 1222, Intra-Procedure (CV) 1222 (Given - Provid er: Shashi Oliva MD) documented in this encounter Orders Medications Ordered That Laith ht Not Have Been Administered Count Last Ordered Date First Ordered Date acetaminophen (TYLENOL) tablet 650 mg sodium chloride 0.9% flush 0.5-20 mL 11/08 CORE MEASURES Count Last Ordered Date First Ord ered Date REASON FOR NO VTE PROPHYLAXIS AT ADMISSION 1 11/30/2019 documented in this encounter Care Teams Trolley Worker Relationship Specialty Start Date End Date Gianluca Price MD PCP - General 06/18/17 documented as of this encounter
--- OUTSIDE RECORDS SUMMARY | 2024-10-05 02:53 | XMS_ITS | Encounter Summary ---
Author Organization [facility] Address [address] [place] [address] Phone Care Team Providers Care Steam Pipe Fitter Name Role Phone Gianluca Price MD Primary Care Provider Encounter Details Date Type Department Care Team (Late st Contact Info) Description 11/05/2019 Telephone [facility] Cardiology [address] [facility] 8th [place] [address] [place] [address] Hussain Mitchell MD [address] [place], [place] [id number] Social History Tobacco Use Types Packs/Day Years Used Date Smoking Tobacco: Never Smokeless Tobacco: Never Alcohol Use Standard Drinks/Week Comments Yes 0 (1 standard drink = 0.6 oz pur e alcohol) Sex and Gender Information Value Date Recorded Sex Assigned at Not on file Legal Sex Male 3:11 AM TEAR DOWN MATCHER Gender Identity Not on file Sexual Orientation Not on file documented as of this encounter Miscellaneous Notes * Telephone Encounter - Coreen Rowley MS - 11/06/2019 2:38 PM TEAR DOWN MATCHER Connected DOWN MATCHER * Telephone Encounter - Hussain Mitchell MD - 11/06/2019 10:41 AM TEAR DOWN MATCHER Thanks Connect me at 12:15 pm today DOWN MATCHER * Telephone Encounter - Verenice Caldwell RN - 11/06/2019 10:22 AM CST Pt is expecting a call from you to discuss his results from yesterday and why his surgery is being cancelled (if you haven't already). I have already spoken to him about med changes and will also putin the order for the PET/CT DOWN MATCHER DOWN MATCHER * Telephone Encounter - Hussain Mitchell MD - 11/06/2019 10:19 AM TEAR DOWN MATCHER 1) Changes to Lasix, KCL and surgical plan as discussed. 2) Schedule a PET/CT MPI stress test. 3) He has complex stents. So please continue Plavix, especially as we work- up/treat his worsening LV dysfunction. Thank you. DOWN MATCHER * Telephone Encounter - Verenice Caldwell RN - 11/05/2019 2:59 PM CST Pt states he was told by today (that did his CV) that he should stop his plavix. Informed pt I was waiting for your recommendations regarding stopping his meds and would let him know as soon as possible. Also informed pt we received a request for clearance for the surgery as well. DOWN MATCHER * Telephone Encounter - Hill Harrison - 11/05/2019 2:42 PM CST Mitchell Patient states returning call. DOWN MATCHER * Telephone Encounter - Verenice Caldwell RN - 11/05/2019 1:18 PM CST See urgent staff msg from Dr. Olmstead regarding pts CV today DOWN MATCHER * Telephone Encounter - Trixie Poe - 11/05/2019 1:12 PM CST cardiac clearance Mitchell CALLER NAME: [facility] FACILITY NAME: [facility] PHONE NUMBER: [phone] FAX NUMBER: [phone] ATTN: Hui TYPE OF SURGERY: Hip Replacement Surgery NAME OF SURGEON: Dr. Segura SCHEDULED FOR: November 11, 2019 MEDICATION TO BE HELD: FOR DAYS COMMENTS: DOWN MATCHER documented in this encounter Plan of Treatment Not on file documented as of this encounter Visit Diagnoses Not on filedocumented in this encounter Care Teams Steam Pipe Fitter Relationship Specialty Start Date End Date Gianluca Price MD PCP - General 06/18/17 documented as of this encounter
--- OUTSIDE RECORDS SUMMARY | 2024-10-05 02:53 | XMS_ITS | Encounter Summary ---
Author Organization [facility] Healthcare Address [address] [place] [address] Care Team Providers Care Sociology Research Assistant Name Role Phone Gianluca Price MD Primary Care Provider Reason for Referral * Diagnostic Imaging (Routine) - Closed Specialty Diagnoses / Procedures Referred By Antonietta livingston Referred To Contact Radiology Diagnoses Triple vessel coronary artery disease Procedures PET/CT Myocardial Perfusion Imaging (Multiple) Hussain Mitchell MD Phone: tel: fax: Referral ID Status Reason Start Date Expiration Date Visits Re quested Visits Authorized [id number] Closed 11/06/2019 05/17/2021 2 2 INE INSTALLER Reason for Visit * Diagnostic Imaging (Routine) - Closed Specialty Diagnoses / Procedures Referred By Antonietta livingston Referred To Contact Radiology Diagnoses Triple vessel coronary artery disease Procedures PET/CT Myocardial Perfusion Imaging (Multiple) Hussain Mitchell MD Phone: tel: fax: Referral ID Status Reason Start Date Expiration Date Visits Re quested Visits Authorized [id number] Closed 11/06/2019 05/17/2021 2 2 Encounter Details Date Type Department Care Team (Latest Contact Info) Description 11/19/2019 1:03 PM MACHINE INSTALLER - 11/19/2019 11:59 PM MACHINE INSTALLER Hospital Encounter [facility] [address] [place] [id number] Hussain Mitchell MD [address] [place] [address] Triple vessel coronary artery disease Discharge Disposition: Discharge to home or self care Social History Tobacco Use Types Packs/Day Years Used Date Smoking Tobacco: Never Smokeless Tobacco: Never Alcohol Use Standard Drinks/Week Comments Yes 0 (1 standard drink = 0.6 oz pur e alcohol) Sex and Gender Information Value Date Recorded Sex Assigned at Not on file Legal Sex Male 3:11 AM MACHINE INSTALLER Gender Identity Not on file Sexual Orientation Not on file documented as of this encounter Last Filed Vital Signs Vital Sign Reading Time Taken Comments Blood Pressure 112/76 11/19/2019 2:58 PM MACHINE INSTALLER Pulse 113 11/19/2019 2:58 PM MACHINE INSTALLER 7 minutes post Lexiscan Temperature - - Respiratory Rate - - Oxygen Saturation - - Inhaled Oxygen Concentration - - Weight 150.6 kg (332 lb) 11/19/2019 2:4 5 PM MACHINE INSTALLER Height 195.6 cm (6' 5 ) 11/19/2019 2:45 PM MACHINE INSTALLER Body Mass Index 39.37 11/19/2019 2:45 PM MACHINE INSTALLER documented in this encounter Medications at Time [...] Procedure Name Priority Date/Time Associated Diagnosis Comments PET/CT MYOCARDIAL PERFUSION IMAGING (MULTIPLE) Schedule Routine, Read Routine (OP Routine) 11/19/2019 3:37 PM MACHINE INSTALLER Triple vessel coronary artery disease documented in this encounter Results * PET/CT Myocardial Perfusion Imaging (Multiple) (11/19/2019 3:37 PM MACHINE INSTALLER) Anatomical Region Laterality Modality Body N/A Positron Emissio n Tomography (PET) 11/20/2019 10:3 1 AM MACHINE INSTALLER Impressions 11/20/2019 10:44 AM MACHINE INSTALLER 1. ??Evidence of moderate size and - [...] Kj Shelley M.D. Narrative 11/20/2019 10:44 AM MACHINE INSTALLER EXAMINATION: MYOCARDIAL PET/CT PERFUSION IMAGING (STRESS/REST) DATE [...] it. Electronically signed by: Kj Shelley M.D. Result [facility] Hussain Mejia Mitchell MD IM PET PROCEDURES Final Result documented in this encounter Visit Diagnoses Diagnosis Triple vessel coronary artery disease Coronary atherosclerosis of unspecified type of vessel, port heiden or graft documented in this encounter Administered Medications Inactive Administered Medications - up to 3 most recent administrations Medication Order MAR Action Action Date Dose Rate Site n-13 ammonia injection 10-20 millicurie 10-20 millicurie, intravenous, Once in imaging, radiopharmaceutical, Starting on Alina 11/19/19 at 1504, For 1 dose Given 11/19/2019 3:23 PM MACHINE INSTALLER 11.23 millicuries n-13 ammonia injection 10-20 millicurie 10-20 millicurie, intravenous, Once in imaging, radiopharmaceutical, Starting on Alina 11/19/19 at 1504, For 1 dose Given 11/19/2019 2:45 PM MACHINE INSTALLER 10.49 millicuries regadenoson (LEXISCAN) 0.4 mg/5 mL injection 0.4 mg 0.4 mg, intravenous, Once, On Alina 11/19/19 at 1445, For 1 dose, Intra-Procedure (CV), Administer IV push over 10 seconds., Indications: Myocardial Perfusion Imaging AdjunctIndications:Myocar dial Perfusion Imaging Adjunct Given 11/19/2019 3:14 PM MACHINE INSTALLER 0.4 mg documented in this encounter Care Teams Sociology Research Assistant Relationship Specialty Start Date End Date Gianluca Price MD PCP - General 06/18/17 documented as of this encounter
--- OUTSIDE RECORDS SUMMARY | 2024-10-05 02:53 | XMS_ITS | Encounter Summary ---
Author Organization [facility] Address [address] [facility] [address] [place] [address] Care Team Providers Care Coat Tailor Name Role Phone Gianluca Price MD Primary Care Provider Reason for Visit * Reason Comments Pain * Consultation (Routine) - Closed Specialty Diagnoses / Procedures Referred By Contac t Referred To Contact Orthopedic Surgery Diagnoses Low back pain, unspecified back pain laterality, unspecified chronicity, unspecified whether sciatica present Gianluca Price MD [address] [facility] [address] [place] [address] Phone: tel: fax: Lai Sanchez MD [address] [address] Phone: tel: fax: Referral ID Status Reason Start Date Expiration Date V isits Requested Visits Authorized [id number] Closed Specialty Services Required 06/06/2020 12/03/2020 6 6 Encounter Details Date Type Department Care Team (Late st Contact Info) Description 06/07/2020 11:00 AM CDT Office Visit [facility] [address] [address] Lai Sanchez MD [address] [address] Low back pain, non-specific (Primary Dx); Low back pain, unspecified back pain laterality, unspecified chronicity, unspecified whether sciatica present Social History Tobacco Use Types Packs/Day Years [...] on file Legal Sex Male 3:11 AM 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 Gender Identity Not on file Sexual Orientation Not on file Occupation Industry Job Start Date Job End Date Retired Not on file Not on file Not on file documented as of this encounter Last Filed Vital Signs Vital Sign Reading Time Taken Comments Blood Pressure - - Pulse - - Temperature - - Respiratory Rate 14 06/07/2020 11:25 AM CDT Oxygen Saturation - - Inhaled Oxygen Concentration - - Weight 148.8 kg (328 lb) 06/07/2020 11:25 AM CDT Height 193 cm (6' 4 ) 06/07/2020 11:25 AM CDT Body Mass Index 39.93 06/07/2020 11:25 AM CDT documented in this encounter Progress Notes * Vernell Lu RN - 06/07/2020 11:00 AM CDT RN - NEW PATIENT ENCOUNTER Previous [facility] patient - 2013 L3-5 PSF CC: Lower back pain - hx L1 fracture prior to surgery in 2013 with [facility] ONSET DATE: Improved after initial surgery in 2013, 2015 - issues started again with back pain and mobility issues SYMPTOMS: C/o pain across low back - very light pain when sitting, with any standing the pain worsens across low back - sharp/tingling/shocking pain presents, if patient stands or walks for extended timeframe the pain can extend down the legs, numb/ting also presents in legs with extended standing/walking, patient unable to walk more than 100 feet without severe pain and need to find somewhere tosit down, uses cane prn for extended walking, occasional feeling of weakness in legs, denies b/b issues, denies sleeping issues, denies pain issues when sitting or lying down, SMOKING STATUS: Non-smoker TREATING MD'S: Dr. Torsten Oneil (Pain mgmt/referral), Dr. Gianluca Price (PCP/referral), Dr. Eric Patel (Ortho), TREATMENT: Epidural injections over the past years - very short term relief if any, PT in past, TESTS: February - Lumbar MRI WORK STATUS: Retired Review of Systems Constitutional: Negative for fever. HENT: Negative for sore throat. Eyes: Negative for double vision. Respiratory: Negative for cough. Cardiovascular: Negative for chest pain. Gastrointestinal: Positive for heartburn. Negative for abdominal pain. Genitourinary: Negative for dysuria. Musculoskeletal: Positive for back pain. Negative for myalgias. Skin: Negative for rash. Neurological: Positive for tingling. Negative for dizziness. Endo/Heme/Allergies: Does not bruise/bleed easily. Psychiatric/Behavioral: Negative for depression. OSWESTRY: 33 PHQ: 6 * Lai Sanchez MD - 06/07/2020 11:00 AM CDT Images from the original note were not included. CC: Back pain and leg pain HPI Mr. Anderson is a 64 y.o. year old male referred for evaluation of adjacent level lumbar stenosis byGianluca Price MD. The patient was seen and evaluated after an L1 compression fracture by Dr. Yin in 2013. Dr. Yin performed an L3-L5 decompression and fusion with improvement in preoperative symptoms. He reports that in 2016 he had recurrence of back pain and leg symptoms. He compla ins of pain across his low back great light when sitting. The pain is worsened with standing or activity. He reports sharp, tingling, shocking pain present if he stands or walks for an extended time frame down the legs bilaterally. He gets numbness and tingling in the legs with extended standing and walking. He reports that he is unable to walk more than 100 few without severe pain and needs to fi nd some words down. He uses a cane for extended walking. He occasionally feels weakness in his legs. He denies any bowel or bladder issues. He denies any sleeping issues. He denies any pain sitting or lying down. The patient has comorbidities including obstructive sleep apnea, coronary artery disease, hypertension, mitral regurgitation and atrial fibrillation on anti-platelet therapy. SMOKING STATUS: Non-smoker ?? TREATING MD'S: Dr. Torsten Oneil (Pain mgmt/referral), Dr. Gianluca Price (PCP/referral), Dr. Eric Patel (Ortho), ?? TREATMENT: Epidural injections over the past years - very short term relief if any, PT in past, ?? TESTS: February - Lumbar MRI ?? WORK STATUS: Retired Review of Systems: Constitutional: Negative for fever. HENT: Negative for sore throat. Eyes: Negative for double vision. Respiratory: Negative for cough. Cardiovascular: Negative for chest pain. Gastrointestinal: Positive for heartburn. Negative for abdominal pain. Genitourinary: Negative for dysuria. Musculoskeletal: Positive for back pain. Negative for myalgias. Skin: Negative for rash. Neurological: Positive for tingling. Negative for dizziness. Endo/Heme/Allergies: Does not bruise/bleed easily. Psychiatric/Behavioral: Negative for depression. ?? Allergies: Allergies Allergen Reactions ??? Rosuvastatin Muscle pain Past Medical History: Diagnosis Date ??? Arthritis ??? Atrial fibrillation (CMS/HCC) ??? CHF (congestive heart failure) (CMS/HCC) ??? Coronary artery disease ??? Gout ??? Hypercholesterolemia ??? Hypertension ??? Mitral regurgitation ??? PHILLIP (obstructive sleep apnea) ??? Osteoarthritis ??? Tricuspid regurgitation Past Surgical History: Procedure Laterality Date ??? CARDIAC STENT PLACEMENT 2015 4 ??? CARDIOVERSION WILMER guided ??? POSTERIOR FUSION LUMBAR SPINE 2013 L3-5 PSF ([facility]) ??? TOTAL HIP ARTHROPLASTY 12/2019 ??? TOTAL KNEE ARTHROPLASTY Right 01/2016 ??? TOTAL KNEE ARTHROPLASTY 05/2018 Physical Exam: Resp 14 Ht 193 cm (6' 4 ) Wt (!) 148.8 kg (328 lb) BMI 39.93 kg/m?? OSWESTRY: 33 ?? PHQ: 6 Neurological The patient is a well-developed, well-nourished male in no acute distress. He has grossly intact CN II-XII. The patient has 15?? of extension, 70?? of flexion, 70?? of rotation of the right, and 70?? of rotation to the left of the cervical spine. There is 5?? of extension and 70?? of flexion of the lumbar spine. The patient has good range of motion of the bilateral shoulders, elbows, hips and knees. The patient has grossly normal muscle bulk, tone and strength throughout except for some trace 4+/5 weakness of his left iliopsoas. Sensation is grossly intact to light touch. He walks leaning forward about 10??. The patient has a negative SAMSON sign bilaterally. The patient has a negative piriformis stretch bilaterally. The patient has a negative straight leg raise bilaterally. The patient is able to walk on tiptoes and heels. The patient has a normal gait and normal tandem gait. Review of Xrays: MRI lumbar spine shows posterior fixation L3-L5 with good decompression these levels. There is somefluid pockets in the surgical bed. He has adjacent level stenosis at L2-3 significant lateral recess stenosis bilaterally. Diagnoses and all orders for this visit: Low back pain, non-specific (Primary) Assessment & Plan: Mr. Anderson has recurrent [...] surgical candidate. He will talk to Dr. Nargis fink and will research ketogenic diet for weight loss. We discussed this is a hard stop for surgical intervention and that he need to down to this weight to proceed the surgery. I plan to see him back in three months for re-evaluation. Low back pain, unspecified back pain laterality, unspecified chronicity, unspecified whether sciatica present - Ambulatory referral to Orthopedic Surgery This note has been transcribed by voice recognition software and not thoroughly reviewed; it is subject to assisted sales representative variance. Lai Sanchez MD, FAANS documented in this encounter Miscellaneous Notes * Assessment & Plan Note - Lai Sanchez MD - 06/08/2020 11:06 AM CDT Associated Problem(s): Low back pain, non-specific Mr. Anderson has recurrent low back pain [...] surgical candidate. He will talk to Dr. Nargis fink and will research ketogenic diet for weight loss. We discussed this is a hard stop for surgical intervention and that he need to down to this weight to proceed the surgery. I plan to see him back in three months for re-evaluation. documented in this encounter Plan of Treatment Not on file documented as of this encounter Visit Diagnoses Diagnosis Low back pain, unspecified back pain laterality, unspecified chronicity, unspecified whether sciatica present documented in this encounter Discontinued Medications Medication Sig Discontinue Reason Start Date End Da te fenofibrate nanocrystallized (TRICOR) 145 mg tablet Take by mouth 0 HYDROcodone-acetaminophen (NORCO) 5-325 mg per tabletIndications:Pain 04/05/2018 0 documented as of this encounter Orders Outpatient Referral Count Last Ordered Date Fir st Ordered Date AMB REFERRAL TO ORTHOPEDIC SURGERY 1 2019 documented in this encounter Care Teams Coat Tailor Relationship Specialty Start Date End Date Gianluca Price MD PCP - General 06/18/17 documented as of this encounter
--- OUTSIDE RECORDS SUMMARY | 2024-10-05 02:53 | XMS_ITS | Encounter Summary ---
Author Organization [facility] Address [address] [place] [address] Care Team Providers Care Recreation Engineer Name Role Phone Gianluca Price MD Primary Care Provider Encounter Details Date Type Department Care Team (Latest Contact Info) Description 11/30/2019 8:22 AM EXPORT PACKER - 11/30/2019 4:18 PM EXPORT PACKER Hospital Encounter [facility] [address] [place] [address] Hussain Mitchell MD [address] [facility] [address] [place] [address] Abnormal cardiovascular stress test; Preop cardiovascular exam Discharge Disposition: Discharge to home or self care Social History Tobacco Use Types Packs/Day Years Used Date Smoking Tobacco: Never Smokeless Tobacco: Never Alcohol Use Standard Drinks/Week Comments Yes 0 (1 standard drink = 0.6 oz pur e alcohol) Sex and Gender Information Value Date Recorded Sex Assigned at Not on file Legal Sex Male 3:11 AM EXPORT PACKER Gender Identity Not on file Sexual Orientation Not on file documented as of this encounter Last Filed Vital Signs Vital Sign Reading Time Taken Comments Blood Pressure 108/70 11/30/2019 3:45 PM EXPORT PACKER Pulse 99 11/30/2019 3:45 PM EXPORT PACKER Temperature 36.4 ??C (97.5 ??F) 11/30/2019 11:[address] Respiratory Rate 14 11/30/2019 3:45 PM EXPORT PACKER Oxygen Saturation 98% 11/30/2019 3:45 PM EXPORT PACKER Inhaled Oxygen Concentration - - Weight 149.7 kg (330 lb) 11/30/2019 11:10 AM EXPORT PACKER Height 195.6 cm (6' 5 ) 11/30/2019 11:10 AM EXPORT PACKER Body Mass Index 39.13 11/30/2019 11:10 AM EXPORT PACKER documented in this encounter Discharge Diagnoses Diagnosis 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 - ATHEROSCLEROTIC HEART DISEASE OF IONE CORONARY ARTERY WITHOUT ANGINA PECTORIS Coronary atherosclerosis due to calcified coronary lesion (CODE) - CORONARY ATHEROSCLEROSIS DUE TO CALCIFIED CORONARY LESION Rheumatic disorders of both mitral and tricuspid valves - RHEUMATIC DISORDERS OF BOTH MITRAL AND TRICUSPID VALVES Unspecified atrial fibrillation (HCC) - UNSPECIFIED ATRIAL FIBRILLATION Hypertensive heart disease with heart failure (CMS/HCC) (HCC) - HYPERTENSIVE HEART DISEASE WITH HEART FAILURE Unspecified hypertensive heart disease with heart failure Heart failure, unspecified (CMS/HCC) (HCC) - HEART FAILURE, UNSPECIFIED Heart failure, unspecified Obesity, unspecified - OBESITY, UNSPECIFIED Obstructive sleep apnea (adult) (pediatric) - OBSTRUCTIVE SLEEP APNEA (ADULT) (PEDIATRIC) Localized edema - LOCALIZED EDEMA Edema Unspecified osteoarthritis, unspecified site - UNSPECIFIED OSTEOARTHRITIS, UNSPECIFIED SITE Hyperlipidemia, unspecified - HYPERLIPIDEMIA, UNSPECIFIED Presence of coronary angioplasty implant and graft - PRESENCE OF CORONARY ANGIOPLASTY IMPLANT AND GRAFT Body mass index (bmi) 39.0-39.9, adult - BODY MASS INDEX (BMI) 39.0-39.9, ADULT long-term (current) use of aspirin - INDUSTRIAL WORKERS (CURRENT) USE OF ASPIRIN watermelon inspector (current) use of antithrombotics/antiplatelets - INDUSTRIAL WORKERS (CURRENT) USE OF ANTITHROMBOTICS/ANTIPLATELETS documented in this encounter Discharge Instructions * Discharge Instructions* Patti Montanez, ROBERT - 11/30/2019 1:03 PM EXPORT PACKER Discharge Instructions For Cardiac Catheterization (Radial Approach) [...] M-F call our Outpatient Nurse Coordinators at [phone]. If you need to speak to someone after 5pm please call [facility] at [phone] and ask the comptometer operator topage the Cardiac Agricultural Equipment Salesperson Fellow concrete curer. RT PACKER documented in this encounter Medications at Time [...] Notes * Perioperative Nursing Note - Sera Martinez RN - 11/30/2019 4:15 PM EXPORT PACKER DC instructions to pt/spouse without question/concern, verb understanding. Dressing c/d/i to right wrist without bleeding/hematoma, pulses intact, skin w/d/p, denies pain to site. DC both IV with cathlon intact. Dressed with assist of spouse. Taken out via wc in stable cond for dc home with spouse driving. RT PACKER * Pre-Sedation Documentation - Patti Montanez NP [...] Hussain Mitchell MD at 11/30/2019 11:22 AM EXPORT PACKER RT PACKER RT PACKER * Pre-Cardiac Catheterization Workup and H&P - Patti Montanez NP - 11/26/2019 2:29 PM CST PRE-CARDIAC CATHETERIZATION WORKUP Patient Name: Du Anderson Patient Patient : 1955 Date of Procedure: 11/30/2019 ORDERING EMPLOYMENT PROGRAMS ANALYST: Surgeon(s): Hussain Mitchell MD Procedure(s): LEFT HEART CATHETERIZATION WITH CORONARY ANGIOGRAPHY AND WITH OR WITHOUT LEFT VENTRICULOGRAM 24113 Requested Diagnostic: [] Coronary Angiograms Only [x] [...] multiple CRISTHIAN stents in 2016, atrial fibrillation s/p WILMER/CV 11-05-19. WILMER showed Mod-severe MR and Moderate TR. Patient is pre op hip surgery. MYOCARDIAL PET/CT PERFUSION IMAGING stress test revealed Evidence of moderate size and - severe ischemia in the basal- and mid-segment of the anterior wall extending into the anterolateral wall. Denies chest pain or SOB. Referred for LHC. ALLERGIES: Rosuvastatin Topical Iodine Allergy: [x] No [...] Yes [] No [] Contraindicated Indications for Agricultural Equipment Salesperson visit (Select all that apply): [] ACS [...] ESRD [] Dialysis [] HD []PD: Prior GA: [] Yes [x] No If Yes, Most Recent GA Date: Tobacco Use Social History Tobacco Use [...] Yes, Newly Diagnosed: [] Yes [] No [facility] Class: [] Class I [] Class II [...] 63yoM h/o CAD and MR, here for [facility] Clinical Frailty Scale: [] 1: Very Fit [...] Completed/Reviewed and Assessment Completed by: Name: Patti ALVARENGA Date: 11/30/2019 Time: 1100 Cosigned by Hussain Mitchell MD at 11/30/2019 11:22 AM EXPORT PACKER RT PACKER RT PACKER documented in this encounter Plan of Treatment Not on file documented as of this encounter Procedures Procedure Name Priority Date/Time Associated Diagnosis Comments POCT ACTIVATED CLOTTING TIME, LOW RANGE Routine 11/30/2019 12:42 PM EXPORT PACKER LEFT HEART CATHETERIZATION WITH CORONARY ANGIOGRAPHY AND WITH AND WITHOUT LEFT VENTRICULOGRAM Routine 11/30/2019 12:41 PM EXPORT PACKER CBC WITHOUT DIFFERENTIAL Routine 11/30/2019 10:12 AM EXPORT PACKER BASIC METABOLIC PANEL Routine 11/30/2019 10:12 AM EXPORT PACKER ECG 12-LEAD Routine 11/13/2019 9:27 AM EXPORT PACKER documented in this encounter Results * (ABNORMAL) POCT Activated clotting time, low range (11/30/2019 12:42 PM EXPORT PACKER) ACT 277(H) 123 - 168 sec [facility] Blood specimen (specimen) 11/30/2019 12:42 PM EXPORT PACKER 11/30/2019 12:42 PM EXPORT PACKER us Hussain Mitchell MD LAB POCT ORDERABLES - DEV ICE Final Result [facility] [place] [address] * LEFT HEART CATHETERIZATION WITH CORONARY ANGIOGRAPHY AND WITH AND WITHOUT LEFT VENTRICULOGRAM (11/30/2019 12:41 PM EXPORT PACKER) Anatomical Region Laterality Modality X-Ray Angiograph y Narrative 11/30/2019 1:09 PM EXPORT PACKER ?? Cardiovascular Procedure Center [facility] [address], [address] [place] [id number] CORONARY ANGIOGRAM AND PERCUTANEOUS CORONARY INTERVENTION REPORT Patient: Du Anderson : ??1955 MR number: [id number] Date of Service: ??11/30/2019 Field Mechanic: ?? Hussain Mitchell MD Fellow: ?Shashi Oliva [...] was canceled and we brought him to [facility] for a WILMER guided cardioversion. ??The WILMER [...] obtained. The patient was brought to the dock or pier laborer and placed on the table. The planned [...] no procedural complications. ?? I provided direct [id number]-uw-[id number] monitoring of conscious sedation which was administered [...] AND THERAPEUTIC RECOMMENDATIONS: ?? Du Anderson has irfo-is-gnscjiya 3 vessel disease of the RCA, LAD [...] (ABNORMAL) Basic metabolic panel (11/30/2019 10:12 AM EXPORT PACKER) Sodium 135 135 - 145 mmol/L [facility] Potassium, pl 3.5 3.3 - 4.9 mmol/L [facility] Chloride 100 97 - 110 mmol/L [facility] CO2 23 22 - 32 mmol/L [facility] Anion gap 12 2 - 15 mmol/L [facility] BUN 11 8 - 25 mg/dL [facility] Creatinine 0.79(L) 0.80 - 1.30 mg/dL [facility] Glucose 110 70 - 199 mg/dL [facility] Comment: Interpretive Data Fasting glucose >/= 126 [...] 2017. Calcium 10.2 8.5 - 10.3 mg/dL [facility] Blood specimen (specimen) 11/30/2019 10:12 AM EXPORT PACKER 11/30/2019 11:25 AM EXPORT PACKER us Patti Cobb [employer]GR[employer] LAB BLOOD ORDERABLES Final Re sult [facility] Department [place] [address] * (ABNORMAL) CBC without differential (11/30/2019 10:12 AM EXPORT PACKER) WBC 10.5(H) 3.8 - 9.9 K/cumm [facility] Hgb 14.6 13.0 - 17.5 g/dL [facility] Hct 42.9 38.9 - 50.3 % [facility] Plt 294 150 - 400 K/cumm [facility] MPV 11.3 9.1 - 12.3 fL [facility] RBC 4.93 4.30 - 5.80 M/cumm [facility] MCV 87.0 81.3 - 96.4 fL [facility] MCH 29.6 27.1 - 33.3 pg [facility] MCHC 34.0 32.3 - 35.7 g/dL [facility] RDW CV 13.1 11.1 - 14.9 % [facility] RDW SD 41.1 35.7 - 48.1 fL [facility] NRBC abs 0.00 0.00 - 0.01 K/cumm [facility] Blood specimen (specimen) 11/30/2019 10:12 AM EXPORT PACKER 11/30/2019 12:49 PM EXPORT PACKER Narrative [facility] - 11/30/2019 1:01 PM EXPORT PACKER To be drawn after hydration bolus complete us Patti Cobb NP LAB BLOOD ORDERABLES Final Re sult [facility] Department [place] [address] * ECG 12 lead (11/13/2019 9:27 AM EXPORT PACKER) Ventricular Rate EKG/Min 95 BPM [facility] Atrial Rate 92 BPM [facility] QRS-Interval (MSEC) 104 ms [facility] QT-Interval (MSEC) 386 ms [facility] QTc 485 ms [facility] R Forest -3 degrees [facility] T Forest 7 degrees [facility] Diagnosis Atrial fibrillation Prolonged QT Abnormal ECG When compared with ECG of 26-DEC-2015 06:46, Atrial fibrillation is new Confirmed by AGUSTIN MENA M.D ([id number]) on 11/30/2019 1:19:08 PM [facility] 11/13/2019 9:27 AM EXPORT PACKER 11/30/2019 1:19 PM EXPORT PACKER Patti Cobb NP ECG ORDERABLES Final Result [facility] documented in this encounter Visit Diagnoses Diagnosis Abnormal cardiovascular stress test Other nonspecific abnormal cardiovascular system function study Preop cardiovascular exam Pre-operative cardiovascular examination documented in this encounter Administered Medications Inactive Administered Medications - up to 3 most recent administrations Medication Order MAR Action Action Date Dose Rate Site aspirin chewable tablet 162 mg 162 mg, oral, Once, On Sat11/30/19 at 1130, For 1 dose Given 11/30/2019 11:09 AM EXPORT PACKER 162 mg HYDROcodone-acetaminophe n (NORCO) 5-325 mg per tablet 1 tablet 1 tablet, oral, Once, On Sat11/30/19 at 1130, For 1 dose, Indications: PainIndications:Pain Given 11/30/2019 11:09 AM EXPORT PACKER 1 tablet sodium chloride 0.9% flush 0.5-20 mL 0.5-20 mL, intra-catheter, As needed, line care, Starting on Sat11/30/19 at 1011, Pre-Procedure (CV), Flush volume based on line type and size. Flush before and after each use. , Indications: FlushingIndications:Flus leah sodium chloride 0.9% infusion 50 mL/hr, intravenous, Continuous, Starting on Sat11/30/19 at 1045, Pre-Procedure (CV) Rate/Dose Change 11/30/2019 12:42 PM EXPORT PACKER 100 mL/hr 100 mL/hr New Bag 11/30/2019 11:19 AM EXPORT PACKER 50 mL/hr 50 mL/hr sodium chloride 0.9% infusion 30 mL/hr, intravenous, Continuous, Starting on Sat11/30/19 at 1200, Pre-Procedure (CV) New Bag 11/30/2019 11:21 AM EXPORT PACKER 30 mL/hr 30 mL/hr documented in this encounter Active and Recently Administered Medications Times are shown in EXPORT PACKER. Scheduled Medication Order 11/28/2019 11/29/2019 11/30/2019 aspirin chewable tablet 162 mg (COMPLETED) 162 mg, oral, Once, On Sat11/30/19 at 1130, For 1 dose 1109 (Given - Provid er: Charlene Trejo RN) HYDROcodone-acetaminophen (NORCO) 5-325 mg per tablet 1 tablet (COMPLETED) 1 tablet, oral, Once, On Sat11/30/19 at 1130, For 1 dose, Indications: Pain 1109 (Given - Provid er: Charlene Trejo RN) Continuous Medication Order 11/28/2019 11/29/2019 11/30/2019 sodium [...] intra-catheter, As needed, line care, Starting on 11/30/19 at 1011, Pre-Procedure (CV), Flush volume based on line type and size. Flush before and after each use. , Indications: Flushing 1153 (DEC Hold - Pro vider: Automatic Transfer Provider - Reason: Patient not available)2018 (DEC Unhold - Provider: Automatic Discharge Provider) verapamil (ISOPTIN) injection (CANCELED) Administer over 2 Minutes, As needed, Starting on Sat11/30/19 at 1222, Intra-Procedure (CV) 1222 (Given - Provid er: Shashi Oliva MD) documented in this encounter Orders Medications Ordered That Laith ht Not Have Been Administered Count Last Ordered Date First Ordered Date acetaminophen (TYLENOL) tablet 650 mg 1 fentaNYL (SUBLIMAZE) preserv ative free injection 1 11/30/2019 heparin 1,000 unit/mL injection 1 0 ioversol (OPTIRAY 350) injection 1 11/30/19 20 lidocaine (XYLOCAINE) 10 mg/ mL (1 %) injection 1 11/30/2019 midazolam (VERSED) preservat cristy free injection 1 11/30/2019 niCARdipine (CARDENE) 1 mg/1 0 mL in sodium chloride 0.9% (premix) 1 11/30/2019 sodium chloride 0.9% flush 0.5-20 mL 1 11/08 verapamil (ISOPTIN) injection 1 11/30/2019 CORE MEASURES Count Last Ordered Date First Ord ered Date REASON FOR NO VTE PROPHYLAXIS AT ADMISSION 1 11/30/2019 documented in this encounter Care Teams Recreation Engineer Relationship Specialty Start Date End Date Gianluca Price MD PCP - General 06/18/17 documented as of this encounter
--- OUTSIDE RECORDS SUMMARY | 2024-10-05 02:53 | XMS_ITS | Encounter Summary ---
Author Organization [facility] Address [address] [place] [address] Phone Care Team Providers Care Reel System Operator Name Role Phone Gianluca Price MD Primary Care Provider Encounter Details Date Type Department Care Team (Late st Contact Info) Description 11/11/2019 Telephone [facility] Cardiology [address] [facility] 8th [place] [address] [place] [address] Hussain Mitchell MD [address] [place], [place] [id number] Social History Tobacco Use Types Packs/Day Years Used Date Smoking Tobacco: Never Smokeless Tobacco: Never Alcohol Use Standard Drinks/Week Comments Yes 0 (1 standard drink = 0.6 oz pur e alcohol) Sex and Gender Information Value Date Recorded Sex Assigned at Not on file Legal Sex Male 3:11 AM KITCHEN LEAD Gender Identity Not on file Sexual Orientation Not on file documented as of this encounter Miscellaneous Notes * Telephone Encounter - Verenice Caldwell RN - 11/11/2019 3:22 PM CST I spoke to pt. He had his BMP today. Informed I will call him with results as soon as Dr. Mitchell reviews. Pt verbalizes understanding. HEN LEAD * Telephone Encounter - Vickie Ann - 11/11/2019 1:50 PM KITCHEN LEAD Mitchell He had his INR drawn today (was due tomorrow) at [facility]. He has some questions for you HEN LEAD documented in this encounter Plan of Treatment Not on file documented as of this encounter Visit Diagnoses Not on filedocumented in this encounter Care Teams Reel System Operator Relationship Specialty Start Date End Date Gianluca Price MD PCP - General 06/18/17 documented as of this encounter
--- OUTSIDE RECORDS SUMMARY | 2024-10-05 02:54 | XMS_ITS | Encounter Summary ---
Author Organization [facility] Address [address] [place] [address] Phone Care Team Providers Care Business Services Manager Name Role Phone Gianluca Price MD Primary Care Provider Encounter Details Date Type Department Care Team (Late st Contact Info) Description 09/23/2018 Orders Only [facility] Cardiology [address] [facility] 8th [place] [address] [place] [address] Hussain Mitchell MD [address] [place], [place] [id number] Social History Tobacco Use Types Packs/Day Years Used Date Smoking Tobacco: Never Smokeless Tobacco: Never Sex and Gender Information Value Date Recorded Sex Assigned at Not on file Legal Sex Male 3:11 AM ULTRASOUND TECH Gender Identity Not on file Sexual Orientation Not on file documented as of this encounter Plan of Treatment Not on file documented as of this encounter Procedures Procedure Name Priority Date/Time Associated Diagnosis Comments LIPID PANEL Routine 09/23/2018 9:26 AM ULTRASOUND TECH documented in this encounter Results * (ABNORMAL) Lipid panel (09/23/2018 9:26 AM ULTRASOUND TECH) Cholesterol 139 <200 mg/dL [facility] [place] HDL 55 >40 mg/dL [facility] [place] Triglycerides 207(H) <150 mg/dL [facility] [place] LDL 57 mg/dL (calc) [facility] [place] Comment: Reference range: <100 Desirable range <100 mg/dL for primary prevention; ?? <70 mg/dL for patients with CHD or diabetic patients with > or = 2 CHD risk factors. LDL-C is now calculated using the Kenyon calculation, which is a validated novel method providing better accuracy than the Friedewald equation in the estimation of LDL-C. Carroll SS et al. LULA. 2013;310(19): 8191-6980 (http://education.[employer]/faq/OZC944) Chol/HDL ratio 2.5 <5.0 (calc) [facility] [place] Non-HDL, (LDL+VLDL) 84 <130 mg/dL (calc) [facility] [place] Comment: For patients with diabetes plus 1 major ASCVD risk factor, treating to a non-HDL-C goal of <100 mg/dL (LDL-C of <70 mg/dL) is considered a therapeutic option. 09/23/2018 9:26 AM ULTRASOUND TECH 09/23/2018 9:26 AM ULTRASOUND TECH Narrative [facility] - 09/24/2018 1:59 AM ULTRASOUND TECH FASTING:YES FASTING: YES Resulting Agency Comment Performing Organization Information: ?Site ID: [id number] ?Name: [facility] ?Address: [address] [id number] ?Director: Mohamud Li D.O., MPH Hussain Mitchell MD LAB BLOOD ORDERABLES Zayra l Result [facility] [place] documented in this encounter Visit Diagnoses Not on filedocumented in this encounter Care Teams Business Services Manager Relationship Specialty Start Date End Date Gianluca Price MD PCP - General 06/18/17 documented as of this encounter
--- OUTSIDE RECORDS SUMMARY | 2024-10-05 02:54 | XMS_ITS | Encounter Summary ---
Author Organization [facility] Address [address] [place] [address] Phone Care Team Providers Care Non Cdl Driver Name Role Phone Gianluca Price MD Primary Care Provider Reason for Visit * Reason Onset Date Comments FUROSAMIDE DOSE? 08/06/2018 Encounter Details Date Type Department Care Team (Late st Contact Info) Description 08/06/2018 Telephone [facility] Cardiology [address] [facility] Advanced Medicine 8th [place] [address] [place] [address] Hussain Sal MD [address] [place] [address] FUROSAMIDE DOSE? Social History Tobacco Use Types Packs/Day Years Used Date Smoking Tobacco: Never Smokeless Tobacco: Never Sex and Gender Information Value Date Recorded Sex Assigned at Not on file Legal Sex Male 3:11 AM LEGISLATIVE CORRESPONDENT Gender Identity Not on file Sexual Orientation Not on file documented as of this encounter Ordered Prescriptions Prescription Sig Dispense Quantity Refills Last Filled Start Date End Date niacin 500 mg tablet Take 1 tablet (500 mg total) by mouth 2 (two) times a day with meals. 180 tablet 3 08/06/2018 10/05/2019 potassium chloride ER (KLOR-CON,K-DUR) 10 mEq CR tablet Take 1 tablet/capsu le (10 mEq total) by mouth 3 (three) times a day. 270 tablet 3 08/06/2018 06/30/2019 furosemide (LASIX) 20 mg tablet Take 1 tablet (20 mg total) by mouth daily. 90 tablet 3 08/06/2018 08/20/2018 carvedilol (COREG) 6.25 mg tablet Take 1 tablet (6.25 mg total) by mouth 2 (two) times a day with meals. 180 tablet 3 08/06/2018 10/05/2019 amLODIPine (NORVASC) 5 mg tabletIndications: Hypertension, unspecified type Take 1 tablet (5 mg total) by mouth daily. 90 tablet 3 08/06/2018 07/21/2019 atorvastatin (LIPITOR) 40 mg tablet Take 1 tablet (40 mg total) by mouth daily. 90 tablet 3 08/06/2018 07/21/2019 documented in this encounter Miscellaneous Notes * Telephone Encounter - Verenice Caldwell RN - 08/25/2018 11:46 AM CST I spoke to Joby at [facility]. They have they updated script and will send to pt. Pt notified SLATIVE CORRESPONDENT * Telephone Encounter - Gilda Del Castillo - 08/25/2018 11:03 AM CST Pt states that [facility] correct the Furosemide script dosage, please call rx. SLATIVE CORRESPONDENT * Telephone Encounter - Verenice Caldwell RN - 08/20/2018 11:53 AM CST I spoke with pt. States he is taking lasix 60mg daily. Updated script sent to [facility] SLATIVE CORRESPONDENT * Telephone Encounter - Ghazal Paul MPH - 08/20/2018 11:20 AM CST PATIENT/[phone] SAL PT WAS TAKING 60MG OF FUROSAMIDE. NEW SCRIPT IS ONLY FOR 20MG QD. WHAT SHOULD CORRECT DOSE BE? PLEASE CALL. FYI: PHARMACY WILL NOT FILL NIACIN. HE WILL BUY OVER THE COUNTER. SLATIVE CORRESPONDENT * Telephone Encounter - Verenice Caldwell RN - 08/06/2018 11:21 AM CDT Scripts sent * Telephone Encounter - Vickie Ann - 08/06/2018 10:40 AM CDT Sal New Pharmacy He starts Medicare tomorrow and needs to get scripts refilled for 90 day supply w/refills He needs: Atorvastatin Amlodipine Besolate Carvedilol Furosemide Potassium CLER MEQ Niacin 500mg tablet (not the extended release) He said you will have to have his member ID when you call-it is [id number] [facility] [id number] Pharmacy is [facility] Mail order @ [phone] and fax [phone] documented in this encounter Plan of Treatment Not on file documented as of this encounter Visit Diagnoses Diagnosis Hypertension, unspecified type documented in this encounter Discontinued Medications Medication Sig Discontinue Reason Start Date End Da te atorvastatin (LIPITOR) 40 mg tablet Reorder 06/15/2018 08/06/2018 amLODIPine (NORVASC) 5 mg tabletIndications:Hypert ension, unspecified type Take 1 tablet (5 mg total) by mouth daily. Reorder 03/14/2018 08/06/2018 carvedilol (COREG) 6.25 mg tablet Reorder 05/23/2018 08/06/2018 furosemide (LASIX) 20 mg tablet Reorder 06/15/2018 08/06/2018 potassium chloride ER (KLOR-CON,K-DUR) 10 mEq CR tablet Take 1 tablet/capsule (10 mEq total) by mouth 3 (three) times a day. Reorder 06/24/2018 08/06/2018 niacin 500 mg tablet Take 2 tablets (1,000 mg total) by mouth 2 (two) times a day with meals. Reorder 06/24/2018 08/06/2018 documented as of this encounter Care Teams Non Cdl Driver Relationship Specialty Start Date End Date Gianluca Price MD PCP - General 06/18/17 documented as of this encounter
--- OUTSIDE RECORDS SUMMARY | 2024-10-05 02:54 | XMS_ITS | Encounter Summary ---
Author Organization [facility] Facility Care Team Providers Care Shearer Printed [employer] Boards Name Role Phone Unavailable Primary Care Provider Unavailabl e Encounter Details Date Type Department Care Team (Latest Contact Info) Description 03/22/2014 10:31 AM CDT - 03/22/2014 11:59 PM CDT Hospital Encounter [facility] Juan Antonio Harper MD [address] [place] [id number] Postlaminectomy syndrome, lumbar region; Arthrodesis status; Other postprocedural states Social History Tobacco Use Types Packs/Day Years Used Date Smoking Tobacco: Never Assessed Sex and Gender Information Value Date Recorded Sex Assigned at Not on file 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 ??ICD-9: 722.83 TECHNIQUE: AP, lateral, coned-down lateral. COMPARISON: 02/04/2014 FINDINGS: Patient has evidence of posterior fusion at L3-L4 and L4-L5 levels using pedicle screw and mariama device. ??Laminectomy has been performed at L4. ??There is posterior bone graft material that is poorly visualized. The findings are unchanged compared with the previous spine radiographs of 02/04/2014. ??There is no evidence of instrument failure or fracture. ?? Moderate degenerative disc disease is seen at L5-S1. Moderate degenerative disc disease is seen at L2-L3. The patient has a chronic compression fracture deformity at L1. ??This compression fracture deformity was seen on the previous examination of 02/04/2014 and is unchanged. ??This has chronic morphology. Today's exam is unchanged compared with the previous examination of 02/04/2014. SUMMARY: 1. Postoperative changes, stable. 2. L1 compression fracture, stable. ?? WB/ Radiologist: GILBERT BLOOD MD, M.D. ?? Attending: ??JUAN ANTONIO HARPER M.D. Requesting: JUAN ANTONIO HARPER M.D. Requesting Fax: ?? Requesting ID: [id number] Attending Fax: ?? Attending ID: ?? [id number] Completed Time: ?? 03/22/2014 11:22 AM Dictated Time: ?03/22/2014 3:17 PM Transcribed Time: 03/22/2014 7:48 PM Signed by: ?GILBERT BLOOD MD ??Rukhsana on 03/22/2014 8:26 PM Report To 1 ID: Report To 1 Name: , Report To 1 FAX: Report To 2 ID: Report To 2 Name: , Report To 2 FAX: Report To 3 ID: Report To 3 Name: , Report To 3 FAX: NextGen Order #: Procedure Note Provider, MD Abran - 02/11/2017 LUMBAR SPINE, THREE VIEW: HISTORY: Laminectomy syndrome. ICD-9: 722.83 TECHNIQUE: AP, lateral, coned-down lateral. COMPARISON: 02/04/2014 FINDINGS: Patient has evidence of posterior fusion at L3-L4 and L4-L5 levels using pedicle screw and mariama device. Laminectomy has been performed at L4. There is posterior bone graft material that is poorly visualized. The findings are unchanged compared with the previous spine radiographs of 02/04/2014. There is no evidence of instrument failure or fracture. Moderate degenerative disc disease is seen at L5-S1. Moderate degenerative disc disease is seen at L2-L3. The patient has a chronic compression fracture deformity at L1. This compression fracture deformity was seen on the previous examination of 02/04/2014 and is unchanged. This has chronic morphology. Today's exam is unchanged compared with the previous examination of 02/04/2014. SUMMARY: 1. Postoperative changes, stable. 2. L1 compression fracture, stable. WB/ Radiologist: GILBERT BLOOD MD, M.D. Attending: JUAN ANTONIO HARPER M.D. Requesting: JUAN ANTONIO HARPER M.D. Requesting Requesting ID: [id number] Attending Attending ID: [id number] Completed Time: 03/22/2014 11:22 AM Dictated Time: 03/22/2014 3:17 PM Transcribed Time: 03/22/2014 7:48 PM Signed by: GILBERT BLOOD MD, M.D. on 03/22/2014 8:26 PM Report To 1 ID: Report To 1 Name: , Report To 1 FAX: Report To 2 ID: Report To 2 Name: , Report To 2 FAX: Report To 3 ID: Report To 3 Name: , Report To 3 FAX: NextGen Order #: us Historical Provider MD FRANK XR PROCEDURES Final R esult documented in this encounter Visit Diagnoses Diagnosis Postlaminectomy syndrome, lumbar region Arthrodesis status Other postprocedural states documented in this encounter
--- OUTSIDE RECORDS SUMMARY | 2024-10-05 02:54 | XMS_ITS | Encounter Summary ---
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 Gender Identity Not on file Sexual Orientation Not on file documented as of this encounter Plan of Treatment Not on file documented as of this encounter Procedures Procedure Name Priority Date/Time Associated Diagnosis Comments CARDIOLOGY DOCUMENT SCAN 04/28/2018 documented in this encounter Results * SCAN - CARDIOLOGY (04/28/2018) Anatomical Region Laterality Modality Other us Provider Scanning [facility] C[facility]IAC SERVICES PROCEDURES Final Result documented in this encounter Visit Diagnoses Not on filedocumented in this encounter Care Teams Size Roller Operator Relationship Specialty Start Date End Date Gianluca Price MD PCP - General 06/18/17 documented as of this encounter
--- OUTSIDE RECORDS SUMMARY | 2024-10-05 02:54 | XMS_ITS | Encounter Summary ---
Author Organization [facility] Address [address] [place] [address] Phone Care Team Providers Care Auto Clutch Rebuilder Name Role Phone Gianluca Price MD Primary Care Provider Encounter Details Date Type Department Care Team (Late st Contact Info) Description 10/05/2019 Telephone [facility] Cardiology [address] [facility] 8th [place] [address] [place] [address] Hussain Mitchell MD [address] [place] [address] Social History Tobacco Use Types Packs/Day Years Used Date Smoking Tobacco: Never Smokeless Tobacco: Never Alcohol Use Standard Drinks/Week Comments Yes 0 (1 standard drink = 0.6 oz pur e alcohol) Sex and Gender Information Value Date Recorded Sex Assigned at Not on file 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 Gender Identity Not on file Sexual [...] times a day 180 tablet 3 9 01/31/20 20 furosemide (LASIX) 20 mg tablet TAKE 3 TABLETS DAILY DOSAGEINCREASE 270 tablet 3 9 11/06/19 20 clopidogrel (PLAVIX) 75 mg tablet Take 1 tablet (75 mg total) by mouth daily 90 tablet 3 9 09/06/20 20 carvedilol (COREG) 6.25 mg tablet Take 1 tablet (6.25 mg total) by mouth 2 (two) times a day with meals 180 tablet 3 9 07/18/20 20 atorvastatin (LIPITOR) 40 mg tablet Take 1 tablet (40 mg total) by mouth daily 90 tablet 3 9 09/06/20 20 amLODIPine (NORVASC) 5 mg tabletIndications :Hypertension, unspecified type Take 1 tablet (5 mg total) by mouth daily 90 tablet 3 9 09/27/20 20 documented in this encounter Miscellaneous Notes * Telephone Encounter - Verenice Caldwell RN - 10/05/2019 1:13 PM CST Scripts sent to [facility] UTER AIDED DESIGN TECHNICIAN * Telephone Encounter - Hill Harrison - 10/05/2019 12:46 PM CST Mitchell Patient calling to update new pharmacy to [facility] phone # [phone]. All for 90# supplies. UTER AIDED DESIGN TECHNICIAN documented in this encounter Plan of Treatment Not on file documented as of this encounter Visit Diagnoses Diagnosis Hypertension, unspecified type documented in this encounter Discontinued Medications Medication Sig Discontinue Reason Start Date End Da te amLODIPine (NORVASC) 5 mg tabletIndications:Hyp ertension, unspecified type TAKE 1 TABLET DAILY Reorder 07/21/2019 10/05/2019 atorvastatin (LIPITOR) 40 mg tablet TAKE 1 TABLET DAILY Reorder 07/21/2019 10/05/2019 carvedilol (COREG) 6.25 mg tablet Take 1 tablet (6.25 mg total) by mouth 2 (two) times a day with meals. Reorder 08/06/2018 10/05/2019 clopidogrel (PLAVIX) 75 mg tablet Take 1 tablet (75 mg total) by mouth daily Reorder 06/30/2019 10/05/2019 furosemide (LASIX) 20 mg tablet TAKE 3 TABLETS DAILY DOSAGEINCREASE Reorder 07/21/2019 10/05/2019 potassium chloride ER (KLOR-CON) 20 mEq CR tablet Take 1 tablet (20 mEq total) by mouth 2 (two) times a day Reorder 06/30/2019 10/05/2019 niacin 500 mg tablet Take 1 tablet (500 mg total) by mouth 2 (two) times a day with meals. Reorder 08/06/2018 10/05/2019 documented as of this encounter Care Teams Auto Clutch Rebuilder Relationship Specialty Start Date End Date iGanluca Price MD PCP - General 06/18/17 documented as of this encounter
--- OUTSIDE RECORDS SUMMARY | 2024-10-05 02:54 | XMS_ITS | Encounter Summary ---
Author Organization [facility] Address [address] [facility] [address] [place] [address] Care Team Providers Care Accounts Payable Processor Name Role Phone Jono Price MD Primary Care Provider Encounter Details Date Type Department Care Team (Late st Contact Info) Description 06/04/2018 Orders Only [facility] [id number] Jono Price MD [address] [facility] [address] [place] [address] Social History Tobacco Use Types Packs/Day Years Used Date Smoking Tobacco: Never Sex and Gender Information Value Date Recorded Sex Assigned at Not on file 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 Gender Identity Not on file Sexual Orientation Not on file documented as of this encounter Plan of Treatment Not on file documented as of this encounter Procedures Procedure Name Priority Date/Time Associated Diagnosis Comments COPY RECEIVED FROM Routine 06/04/2018 9: 38 AM CDT TSH+FREE T4 Routine 06/04/2018 9:38 AM CDT COMPREHENSIVE METABOLIC PANEL (OUTREACH) Routine 06/04/2018 9:38 AM CDT CBC WITH AUTO DIFFERENTIAL Routine 06/04/2018 9:38 AM CDT URIC ACID Routine 06/04/2018 9:38 AM CDT LIPID PANEL Routine 06/04/2018 9:38 AM CDT documented in this encounter Results * TSH+Free T4 (06/04/2018 9:38 AM CDT) TSH 1.68 0.40 - 4.50 mIU/L [facility] [place] Free T4 1.2 0.8 - 1.8 ng/dL [facility] [place] 06/04/2018 9:38 AM CDT 06/04/2018 9:39 AM CDT Narrative [facility] - 06/05/2018 5:13 AM CDT PT FORGOT INS CARD SAME ON FILE FASTING:YES FASTING: YES Resulting Agency Comment Performing Organization Information: ?Site ID: [place] ?Name: [facility] ?Address: [address] [place], [place] [address]ner [facility] [place] [address] ?Director: Mohamud Li D.O., MPH Jono Price MD LAB BLOOD ORDERABLES F inal Result [facility] [place] * (ABNORMAL) CBC with auto differential (06/04/2018 9:38 AM CDT) WBC 3.9 3.8 - 10.8 Thousand/ uL [facility] [place] RBC, POC 3.92(L) 4.20 - 5.80 Million/u L [facility] [place] Hgb 12.6(L) 13.2 - 17.1 g/dL [facility] [place] Hct 37.9(L) 38.5 - 50.0 % [facility] [place] MCV 96.7 80.0 - 100.0 fL [facility] [place] MCH 32.1 27.0 - 33.0 pg [facility] [place] MCHC 33.2 32.0 - 36.0 g/dL [facility] [place] Rdw 13.4 11.0 - 15.0 % [facility] [place] Platelets 185 140 - 400 Thousand/ uL [facility] [place] MPV 11.7 7.5 - 12.5 fL [facility] [place] Neutrophils, abs 2,063 1,500 - 7,800 cells/uL [facility] [place] Neutrophil bands, abs CANCELED 0 - 750 cells/uL [facility] [place] Comment:Result canceled by t he ancillary Metamyelocytes, abs CANCELED 0 cells/uL [facility] [place] Comment:Result canceled by t he ancillary Absolute Myelocytes CANCELED 0 cells/uL [facility] [place] Comment:Result canceled by t he ancillary Promyelocytes, abs CANCELED 0 cells/uL [facility] [place] Comment:Result canceled by t he ancillary Lymphocytes, abs 1,151 850 - 3,900 cells/uL [facility] [place] Monocyte abs 425 200 - 950 cells/uL [facility] [place] Eosinophils, abs 191 15 - 500 cells/uL [facility] [place] Basophils, abs 70 0 - 200 cells/uL [facility] [place] Blast, cell CANCELED 0 cells/uL [facility] [place] Comment:Result canceled by t he ancillary NRBC abs CANCELED 0 cells/uL [facility] [place] Comment:Result canceled by t he ancillary Neutrophils 52.9 % [facility] [place] Neutrophilic bands CANCELED % [facility] [place] Comment:Result canceled by t he ancillary Metamyelocyte pct CANCELED % [facility] [place] Comment:Result canceled by t he ancillary Myelocyte pct CANCELED % [facility] [place] Comment:Result canceled by t he ancillary Promyelocyte pct CANCELED % [facility] [place] Comment:Result canceled by t he ancillary Lymphocyte pct 29.5 % [facility] [place] Reactive lymph CANCELED 0 - 10 % [facility] [place] Comment:Result canceled by t he ancillary Monocytes 10.9 % [facility] [place] Eosinophils 4.9 % [facility] [place] Basophils 1.8 % [facility] [place] Blast pct CANCELED % [facility] [place] Comment:Result canceled by t he ancillary NRBC CANCELED 0 /100 WBC [facility] [place] Comment:Result canceled by t he ancillary Comment CANCELED [facility] [place] Comment:Result canceled by t he ancillary 06/04/2018 9:38 AM CDT 06/04/2018 9:39 AM CDT Narrative [facility] - 06/05/2018 5:13 AM CDT PT FORGOT INS CARD SAME ON FILE FASTING:YES FASTING: YES Resulting Agency Comment Performing Organization Information: ?Site ID: [place] ?Name: [facility] ?Address: [address] [place] [address] ?Director: Mohamud Li D.O., MPH us Jono Price MD LAB BLOOD ORDERABLES F inal Result [facility] [place] * (ABNORMAL) Comprehensive metabolic panel (Outreach) (06/04/2018 9:38 AM CDT) Pathologist [facility] Glucose 104(H) 65 - 99 mg/dL [facility] [place] Comment: ? Fasting reference interval For someone without known diabetes, a glucose value between 100 and 125 mg/dL is consistent with prediabetes and should be confirmed with a follow-up test. BUN 14 7 - 25 mg/dL [facility] [place] Creatinine 0.89 0.70 - 1.25 mg/dL [facility] [place] Comment: For patients >49 years of age, the reference limit for Creatinine is approximately 13% higher for people identified as -[place] Citizen. eGFR NON-AFR. ROMANIAN 92 > OR = 60 mL/min/1 .73m2 [facility] [place] EGFR 106 > OR = 60 mL/min/1 .73m2 [facility] [place] BUN/creat ratio NOT APPLICABLE 6 - 22 (calc) [facility] [place] Sodium 139 135 - 146 mmol/L [facility] [place] Potassium 3.6 3.4 - 4.8 mmol/L [facility] [place] Chloride 104 98 - 110 mmol/L [facility] [place] CO2 25 20 - 32 mmol/L [facility] [place] Calcium 9.4 8.6 - 10.3 mg/dL [facility] [place] Protein, Total 6.9 6.4 - 8.4 g/dL [facility] [place] Albumin 4.2 3.6 - 5.1 g/dL [facility] [place] Globulin 2.7 2.2 - 4.0 g/dL (calc) [facility] [place] Alb/glob ratio 1.6 0.9 - 2.3 (calc) [facility] [place] Bilirubin, total 0.6 0.2 - 1.2 mg/dL [facility] [place] Alk phos 95 40 - 115 U/L [facility] [place] AST 25 10 - 35 U/L [facility] [place] ALT (SGPT) 27 9 - 46 U/L [facility] [place] 06/04/2018 9:38 AM CDT 06/04/2018 9:39 AM CDT Narrative [facility] - 06/05/2018 5:13 AM CDT PT FORGOT INS CARD SAME ON FILE FASTING:YES FASTING: YES Resulting Agency Comment Performing Organization Information: ?Site ID: RAN ?Name: [facility] ?Address: [address] [place] [address] [place] [address] ?Director: Mohamud Li D.O., MPH us Jono Price MD LAB BLOOD ORDERABLES F inal Result Performing Organization Address [facility] Phone Number [facility] [place] * Uric acid (06/04/2018 9:38 AM CDT) Uric acid 6.6 4.0 - 8.0 mg/dL [facility] - [place] Comment: Therapeutic target for gout patients: <6.0 mg/dL ?? 06/04/2018 9:38 AM CDT 06/04/2018 9:39 AM CDT Narrative [facility] - 06/05/2018 5:13 AM CDT PT FORGOT INS CARD SAME ON FILE FASTING:YES FASTING: YES Resulting Agency Comment Performing Organization Information: ?Site ID: RAN ?Name: [facility] ?Address: [address] [place], [place] [address] [address] ?Director: Mohamud Li D.O., MPH us Jono Price MD LAB BLOOD ORDERABLES F inal Result Performing Organization Address [facility] de Phone Number [facility] [place] * (ABNORMAL) Lipid panel (06/04/2018 9:38 AM CDT) Cholesterol 147 <200 mg/dL [facility] [place] HDL 45 >40 mg/dL [facility] [place] Triglycerides 169(H) <150 mg/dL [facility] [place] LDL 75 mg/dL (calc) [facility] [place] Comment: Reference range: <100 Desirable range <100 mg/dL for primary prevention; ?? <70 mg/dL for patients with CHD or diabetic patients with > or = 2 CHD risk factors. LDL-C is now calculated using the Kenyon calculation, which is a validated novel method providing better accuracy than the Friedewald equation in the estimation of LDL-C. Carroll SS et al. LULA. 2013;310(69): 5629-4543 (http://education.Wantster/faq/JEA790) Chol/HDL ratio 3.3 <5.0 (calc) [facility] [place] Non-HDL, (LDL+VLDL) 102 <130 mg/dL (calc) [facility] [place] Comment: For patients with diabetes plus 1 major ASCVD risk factor, treating to a non-HDL-C goal of <100 mg/dL (LDL-C of <70 mg/dL) is considered a therapeutic option. 06/04/2018 9:38 AM CDT 06/04/2018 9:39 AM CDT Narrative [facility] - 06/05/2018 5:13 AM CDT PT FORGOT INS CARD SAME ON FILE FASTING:YES FASTING: YES Resulting Agency Comment Performing Organization Information: ?Site ID: RAN ?Name: [facility] ?Address: [address] [place] [address] [place] [address] ?Director: Mohamud Li D.O., MPH us Jono Price MD LAB BLOOD ORDERABLES F inal Result [facility] [place] * Copy received from (06/04/2018 9:38 AM CDT) Copy Rec'd from: [facility] Comment: ?JONO PRICE MD ?[address] ?[place] [address] 06/04/2018 9:38 AM CDT 06/04/2018 9:39 AM CDT Narrative [facility] - 06/05/2018 5:13 AM CDT PT FORGOT INS CARD SAME ON FILE FASTING:YES FASTING: YES us Jono Price MD LAB BLOOD ORDERABLES F inal Result [facility] documented in this encounter Visit Diagnoses Not on filedocumented in this encounter Care Teams Accounts Payable Processor Relationship Specialty Start Date End Date Jono Priec MD PCP - General 06/18/17 documented as of this encounter
--- OUTSIDE RECORDS SUMMARY | 2024-10-05 02:54 | XMS_ITS | Encounter Summary ---
Author Organization [facility] Address [address] [place] [address] Phone Care Team Providers Care Suture Gauger Name Role Phone Gianluca Price MD Primary Care Provider Reason for Visit * Reason Onset Date Comments Holding Medication Request 11/24/2018 Encounter Details Date Type Department Care Team (Late st Contact Info) Description 11/24/2018 Telephone [facility] Cardiology [address] [facility] 8th [place] [address] [place] [address] Coreen Rowley MS Holding Medication Request Social History Tobacco Use Types Packs/Day Years Used Date Smoking Tobacco: Never Smokeless Tobacco: Never Sex and Gender Information Value Date Recorded Sex Assigned at Not on file 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 Martinez's office at [phone] P BLOWER * Telephone Encounter - Hussain Mitchell MD - 11/26/2018 9:24 AM STUMP BLOWER To Whom it May Concern: Du Anderson may hold Brilinta 5 days prior to his spine procedure. Aspirin 81 mg daily should becontinued if possible during the periprocedural period. He has had complex left main and trifurcating LAD, circumflex and ramus intervention in October 2015. Please call me for questions, if any. Thank you. Hussain Mitchell MD P BLOWER * Telephone Encounter - Coreen Rowley, - 11/24/2018 3:[address] Martinez's office sent a fax requesting permission for pt to come off blood thinner (ASA & Brilinta) 7 days prior to ILESI Ly-5 procedure that is scheduled for 12/18/18. Pls write note. P BLOWER documented in this encounter Plan of Treatment Not on file documented as of this encounter Visit Diagnoses Not on filedocumented in this encounter Care Teams Suture Gauger Relationship Specialty Start Date End Date Gianluca Price MD PCP - General 06/18/17 documented as of this encounter
--- OUTSIDE RECORDS SUMMARY | 2024-10-05 02:54 | XMS_ITS | Encounter Summary ---
Author Organization [facility] Address [address] [place] [address] Phone Care Team Providers Care Stone Product Fabricator Name Role Phone Gianluca Price MD Primary Care Provider Reason for Visit * Cardiology (Routine) - Closed Specialty Diagnoses / Procedures Referred By Antonietta livingston Referred To Contact Cardiology Diagnoses Appt Comment: 1 YR FUP Procedures RETURN Gianluca Price MD Phone: tel: fax: Hussain Mitchell MD [address] [place] [address] Phone: tel: fax: Referral ID Status Reason Start Date Expiration Date Visits Re quested Visits Authorized [id number] Closed 06/04/2019 06/03/2020 6 6 Encounter Details Date Type Department Care Team (Latest Contact Info) Description 06/30/2019 2:15 PM CDT Office Visit [facility] Cardiology [address] [place] [address] Hussain Mitchell MD [address] [place] [address] Hypertension, unspecified type (Primary Dx); Triple vessel coronary artery disease; Hyperlipidemia, unspecified hyperlipidemia type; Shortness of breath Social History Tobacco Use Types Packs/Day Years Used Date Smoking Tobacco: Never Smokeless Tobacco: Never Alcohol Use Standard Drinks/Week Comments Yes 0 (1 standard drink = 0.6 oz pur e alcohol) Sex and Gender Information Value Date Recorded Sex Assigned at Not on file 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 Gender Identity Not on file Sexual Orientation Not on file documented as of this encounter Last Filed Vital Signs Vital Sign Reading Time Taken Comments Blood Pressure 106/56 06/30/2019 2:26 PM CDT Pulse 90 06/30/2019 2:26 PM CDT Temperature 37.1 ??C (98.7 ??F) 06/30/2019 2:26 PM CD T Respiratory Rate - - Oxygen Saturation 96% 06/30/2019 2:26 PM CDT Inhaled Oxygen Concentration - - Weight 156.9 kg (346 lb) 06/30/2019 2:26 PM CDT Height 193 cm (6' 4 ) 06/30/2019 2:26 PM CDT Body Mass Index 42.12 06/30/2019 2:26 PM CDT documented in this encounter Patient Instructions * Patient Instructions* Hussain Mitchell MD - 06/30/2019 2:15 PM CDT Stop Brillinta and please switch to Plavix 75 mg daily (Clopidogrel). Please increase your KCL to 20 mg twice daily documented in this encounter Ordered Prescriptions Prescription Sig Dispense Quantity Refills Last Filled Start Date End Date clopidogrel (PLAVIX) 75 mg tablet Take 1 tablet (75 mg total) by mouth daily 30 tablet 11 06/30/2019 10/05/2019 potassium chloride ER (KLOR-CON) 20 mEq CR tablet Take 1 tablet (20 mEq total) by mouth 2 (two) times a day 60 tablet/capsule 11 06/30/2019 10/05/2019 documented in this encounter Progress Notes * Hussain Mitchell MD - 06/30/2019 2:15 PM CDT Images from the original note were not included. Patient's Name: Du Anderson : 1955 [place]: 06/30/2019 PRINCIPAL AND SECONDARY DIAGNOSES: 1. Complex coronary disease. PCI of trifurcating left main circumflex, inferior ramus, superior ramus, and ostial LAD in a staged manner with multiple CRISTHIAN stents in 2016. 2. Hypertension. 3. Morbid obesity which is central abdominal obesity. 4. Obstructive sleep apnea. 5. Dyslipidemia. Very atherogenic LDL particle size of 215 as well as type B pattern. 6. Elevated lipoprotein A of 215 which is three times the reference value of 75. INTERVAL HISTORY: Du Anderson returns for follow-up. We have done stenting of his ostial LAD, ostial ramus, and ostial circumflex in the past. He continues to do well. He underwent left knee replacement recently. He is still on Brillinta. It is expensive he states. We will switch to Plavix given his complex stenting. He does not describe any chest pain [...] twice a day PHYSICAL EXAM: Vitals BP 106/56 Pulse 90 Temp 37.1 ??C (98.7 ??F) Ht 193 cm (6' 4 ) Wt (!) 156.9 kg (346 lb) SpO2 96% BMI 42.12 kg/m?? GEN: pleasant in NAD; alert, comfortable HENT: NCAT, MMM, anicteric Neck: no trauma, no JVD CVS: RRR, S1S2, no rubs/murmurs/gallops PULM: non-labored, CTAB, good inspiratory effort ABD: soft, not tender to palpation EXT: equal radial pulses, no edema Neuro: motor and sensation grossly intact Skin: warm, dry, no cyanosis OBJECTIVE DATA: Lab Results Component Value Date GLUCOSE 98 06/02/2019 CALCIUM 9.2 06/02/2019 SODIUM 139 06/02/2019 POTASSIUM 3.3 (L) 06/02/2019 CO2 26 06/02/2019 CHLORIDE 103 06/02/2019 BUNSER 14 06/02/2019 CREATININE 0.79 06/02/2019 No results found for: NTPROBNP Lab Results Component Value Date WBC 4.0 06/02/2019 HGB 13.6 06/02/2019 HCT 39.9 06/02/2019 MCV 97.1 06/02/2019 LABPLAT 137 (L) 06/02/2019 Lab Results Component Value Date LDL 44 06/02/2019 HDL 44 06/02/2019 ASSESSMENT AND PLAN: Du Anderson is a very pleasant 61-year-old gentleman here for follow-up. 1. Coronary disease. He continues to do well. We will make no change to his regimen other than Brillinta. It is expensive he states. We will switch to Plavix given his complex stenting. 2. Hypertension, well controlled. 3. Dyslipidemia. He is on high-dose Lipitor and Niacin 1,000 mg BID. He states the flushing does not bother him. A repeat lipid profile showed well controlled LDL and TG. 4. Obstructive sleep apnea. 5. Osteoarthritis. He has done well after B/l knee replacements. 6. Lifestyle. I advised daily exercise. 7. Hypokalemia. We will increase his KCL to 40 mEq daily It was pleasure to participate in the care of Du Anderson. We will see him back in six months. Sincerely, Hussain Mitchell MD, MSc Senior Training Specialist of Cardiology [facility] documented in this encounter Plan of Treatment Not on file documented as of this encounter Visit Diagnoses Diagnosis Hypertension, unspecified type- Primary Triple vessel coronary artery disease Coronary atherosclerosis of unspecified type of vessel, [place] or graft Hyperlipidemia, unspecified hyperlipidemia type Shortness of breath documented in this encounter Discontinued Medications Medication Sig Discontinue Reason Start Date End Da te potassium chloride ER (KLOR-CON,K-DUR) 10 mEq CR tablet Take 1 tablet/capsule (10 mEq total) by mouth 3 (three) times a day. 08/06/2018 06/30/2019 BRILINTA 90 mg tablet TAKE ONE TABLET BY MOUTH TWICE A DAY Other 04/13/2019 06/30/2019 documented as of this encounter Historical Medications * This list may reflect changes made after this encounter. fenofibrate nanocrystallized (TRICOR) 145 mg tablet Take by mouth 0 added in this encounter Care Teams Stone Product Fabricator Relationship Specialty Start Date End Date Gianluca Price MD PCP - General 06/18/17 documented as of this encounter
--- OUTSIDE RECORDS SUMMARY | 2024-10-05 02:54 | XMS_ITS | Encounter Summary ---
Author Organization [facility] Address [address] [place] [address] Phone Care Team Providers Care Cold Roll Inspector Name Role Phone Gianluca Price MD Primary Care Provider Encounter Details Date Type Department Care Team (Late st Contact Info) Description 05/20/2019 Telephone [facility] Cardiology [address] [facility] [address] [facility] 8th [place] [address] [place] [address] Hussain Mitchell MD [address] [place], [place] [id number] Social History Tobacco Use Types Packs/Day Years Used Date Smoking Tobacco: Never Smokeless Tobacco: Never Sex and Gender Information Value Date Recorded Sex Assigned at Not on file 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 It needs to be restarted as soon as possible after the procedure. * Telephone Encounter - Coreen Rowley, - 05/20/2019 3:14 PM CDT Hussain, Disregard my comment about the note being refaxed. This pt needs to have an epidural injection and they need to know if his aspirin can be held for 7 days. Pls advise. * Telephone Encounter - Coreen Rowley, - 05/20/2019 2:35 PM CDT Refaxed w/ note re: aspirin; conf rcv'd * Telephone Encounter - Selena Fletcher - 05/20/2019 11:17 AM CDT holding medication CALLER NAME: [facility] NAME: [facility] PHONE NUMBER: [phone] FAX NUMBER: [phone] TYPE OF SURGERY: NAME OF SURGEON: Dr. Martinez SCHEDULED FOR: Has not been scheduled MEDICATION TO BE HELD:Aspirin FOR 7 DAYS COMMENTS: Please call to discuss documented in this encounter Plan of Treatment Not on file documented as of this encounter Visit Diagnoses Not on filedocumented in this encounter Care Teams Cold Roll Inspector Relationship Specialty Start Date End Date Gianluca Price MD PCP - General 06/18/17 documented as of this encounter
--- OUTSIDE RECORDS SUMMARY | 2024-10-05 02:54 | XMS_ITS | Encounter Summary ---
Author Organization [facility] Address [address] [facility] [address] [place] [address] Care Team Providers Care Flight Crew Time Clerk Name Role Phone Jono Price MD Primary Care Provider Encounter Details Date Type Department Care Team (Late st Contact Info) Description 06/02/2019 Orders Only [facility] INTERFACE [id number] Jono Price MD [address] [facility] [address] [place] [address] Social History Tobacco Use Types Packs/Day Years Used Date Smoking Tobacco: Never Smokeless Tobacco: Never Sex and Gender Information Value Date Recorded Sex Assigned at Not on file 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 Gender Identity Not on file Sexual Orientation Not on file documented as of this encounter Plan of Treatment Not on file documented as of this encounter Procedures Procedure Name Priority Date/Time Associated Diagnosis Comments COPY RECEIVED FROM Routine 06/02/2019 9: 49 AM CDT TSH+FREE T4 Routine 06/02/2019 9:49 AM CDT COMPREHENSIVE METABOLIC PANEL (OUTREACH) Routine 06/02/2019 9:49 AM CDT CBC WITH AUTO DIFFERENTIAL Routine 06/02/2019 9:49 AM CDT URIC ACID Routine 06/02/2019 9:49 AM CDT LIPID PANEL Routine 06/02/2019 9:49 AM CDT documented in this encounter Results * (ABNORMAL) CBC with auto differential (06/02/2019 9:49 AM CDT) WBC 4.0 3.8 - 10.8 Thousand/u L [facility] [place] RBC, POC 4.11(L) 4.20 - 5.80 Million/uL [facility] [place] Hgb 13.6 13.2 - 17.1 g/dL [facility] [place] Hct 39.9 38.5 - 50.0 % [facility] [place] MCV 97.1 80.0 - 100.0 fL [facility] [place] MCH 33.1(H) 27.0 - 33.0 pg [facility] [place] MCHC 34.1 32.0 - 36.0 g/dL [facility] [place] Rdw 13.2 11.0 - 15.0 % [facility] [place] Platelets 137(L) 140 - 400 Thousand/u L [facility] [place] MPV 12.0 7.5 - 12.5 fL [facility] [place] Neutrophils, abs 2,036 1,500 - 7,800 cells/uL [facility] [place] Lymphocytes, abs 1,244 850 - 3,900 cells/uL [facility] [place] Monocyte abs 464 200 - 950 cells/uL [facility] [place] Eosinophils, abs 204 15 - 500 cells/uL [facility] [place] Basophils, abs 52 0 - 200 cells/uL [facility] [place] Neutrophils 50.9 % [facility] [place] Lymphocyte pct 31.1 % [facility] [place] Monocytes 11.6 % [facility] [place] Eosinophils 5.1 % [facility] [place] Basophils 1.3 % [facility] [place] 06/02/2019 9:49 AM CDT 06/02/2019 9:51 AM CDT Narrative [facility] - 06/03/2019 4:02 AM CDT FASTING:YES FASTING: YES Resulting Agency Comment Performing Organization Information: ?Site ID: [place] ?Name: [facility] ?Address: [facility] [place] [address] ?Director: Mohamud Li D.O., MPH us Jono Price MD LAB BLOOD ORDERABLES F inal Result [facility] [place] * (ABNORMAL) Comprehensive metabolic panel (Outreach) (06/02/2019 9:49 AM CDT) Glucose 98 65 - 99 mg/dL [facility] [place] Comment: ? Fasting reference interval BUN 14 7 - 25 mg/dL [facility] [place] Creatinine 0.79 0.70 - 1.25 mg/dL [facility] [place] Comment: For patients >49 years of age, the reference limit for Creatinine is approximately 13% higher for people identified as -Berm[place]. eGFR NON-AFR. [place] 96 > OR = 60 mL/min/1 .73m2 [facility] [place] EGFR 111 > OR = 60 mL/min/1 .73m2 [facility] [place] BUN/creat ratio NOT APPLICABLE 6 - 22 (calc) [facility] [place] Sodium 139 135 - 146 mmol/L [facility] [place] Potassium 3.3(L) 3.4 - 4.8 mmol/L [facility] [place] Chloride 103 98 - 110 mmol/L [facility] [place] CO2 26 20 - 32 mmol/L [facility] [place] Calcium 9.2 8.6 - 10.3 mg/dL [facility] [place] Protein, Total 6.5 6.4 - 8.4 g/dL [facility] [place] Albumin 4.0 3.6 - 5.1 g/dL [facility] [place] Globulin 2.5 2.2 - 4.0 g/dL (calc) [facility] [place] Alb/glob ratio 1.6 0.9 - 2.3 (calc) [facility] [place] Bilirubin, total 0.6 0.2 - 1.2 mg/dL [facility] [place] Alk phos 65 40 - 115 U/L [facility] [place] AST 42(H) 10 - 35 U/L [facility] [place] ALT (SGPT) 58(H) 9 - 46 U/L [facility] [place] 06/02/2019 9:49 AM CDT 06/02/2019 9:51 AM CDT Narrative [facility] - 06/03/2019 4:02 AM CDT FASTING:YES FASTING: YES Resulting Agency Comment Performing Organization Information: ?Site ID: [place] ?Name: [facility] ?Address: [facility] [place] [address] ?Director: Mohamud Li D.O., MPH Jono Price MD LAB BLOOD ORDERABLES F inal Result Performing Organization Address [facility] de Phone Number [facility] [place] * Uric acid (06/02/2019 9:49 AM CDT) Uric acid 5.7 4.0 - 8.0 mg/dL [facility] Comment: Therapeutic target for gout patients: <6.0 mg/dL ?? 06/02/2019 9:49 AM CDT 06/02/2019 9:51 AM CDT Narrative [facility] - 06/03/2019 4:02 AM CDT FASTING:YES FASTING: YES Resulting Agency Comment Performing Organization Information: ?Site ID: [place] ?Name: [facility] ?Address: [facility] [place] [address] ?Director: Mohamud Li D.O., MPH Jono Price MD LAB BLOOD ORDERABLES F inal Result Performing Organization Address [facility] de Phone Number [facility] [place] * TSH+Free T4 (06/02/2019 9:49 AM CDT) TSH 1.83 0.40 - 4.50 mIU/L [facility] Free T4 1.1 0.8 - 1.8 ng/dL [facility] 06/02/2019 9:49 AM CDT 06/02/2019 9:51 AM CDT Narrative [facility] - 06/03/2019 4:02 AM CDT FASTING:YES FASTING: YES Resulting Agency Comment Performing Organization Information: ?Site ID: [place] ?Name: [facility] ?Address: [facility] [place] [address] ?Director: Mohamud Li D.O. MPH us Jono Price MD LAB BLOOD ORDERABLES F inal Result Performing Organization Address City/[facility]/ZIP Co de Phone Number [facility] [place] * Lipid panel (06/02/2019 9:49 AM CDT) Cholesterol 111 <200 mg/dL [facility] [place] HDL 44 >40 mg/dL [facility] [place] Triglycerides 146 <150 mg/dL [facility] [place] LDL 44 mg/dL (calc) [facility] [place] Comment: Reference range: <100 Desirable range <100 mg/dL for primary prevention; ?? <70 mg/dL for patients with CHD or diabetic patients with > or = 2 CHD risk factors. LDL-C is now calculated using the Kenyon calculation, which is a validated novel method providing better accuracy than the Friedewald equation in the estimation of LDL-C. Carroll SS et al. LULA. 2013;310(19): 4101-9323 (http://education.[employer]/faq/MXA041) Chol/HDL ratio 2.5 <5.0 (calc) [facility] [place] Non-HDL, (LDL+VLDL) 67 <130 mg/dL (calc) [facility] [place] Comment: For patients with diabetes plus 1 major ASCVD risk factor, treating to a non-HDL-C goal of <100 mg/dL (LDL-C of <70 mg/dL) is considered a therapeutic option. 06/02/2019 9:49 AM CDT 06/02/2019 9:51 AM CDT Narrative [facility] - 06/03/2019 4:02 AM CDT FASTING:YES FASTING: YES Resulting Agency Comment Performing Organization Information: ?Site ID: [place] ?Name: [facility] ?Address: [address] [place] [address] ?Director: Mohamud Li D.O., MPH us Jono Price MD LAB BLOOD ORDERABLES F inal Result Performing Organization Address City/[facility]/ZIP Co de Phone Number [place] * Copy received from (06/02/2019 9:49 AM CDT) Copy Rec'd from: [facility] Comment: ?JONO PRICE MD ?[address] ?[place] [address] 06/02/2019 9:49 AM CDT 06/02/2019 9:51 AM CDT Narrative [facility] - 06/03/2019 4:02 AM CDT FASTING:YES FASTING: YES us Jono Price MD LAB BLOOD ORDERABLES F inal Result [facility] documented in this encounter Visit Diagnoses Not on filedocumented in this encounter Care Teams Flight Crew Time Clerk Relationship Specialty Start Date End Date Jono Price MD PCP - General 06/18/17 documented as of this encounter
--- OUTSIDE RECORDS SUMMARY | 2024-10-05 02:54 | XMS_ITS | Encounter Summary ---
Author Organization [facility] Facility Care Team Providers Care Production Line Worker Name Role Phone Unavailable Primary Care Provider Unavailabl e Encounter Details Date Type Department Care Team (Latest Contact Info) Description 11/04/2015 7:32 AM INTENSIVE CARE MEDICINE SPECIALIST - 11/04/2015 4:00 PM INTENSIVE CARE MEDICINE SPECIALIST Hospital Encounter [facility] Hussain Carlin MD [address] [facility] [address] [place] [address] Atherosclerotic heart disease of [place] coronary artery without angina pectoris; Osteoarthritis; Sleep apnea; Morbid (severe) obesity due to excess calories (HCC); Essential (primary) hypertension; Edema; Heart failure (CMS/HCC); Hyperlipidemia; Pure hypercholesterolemia; roasterman current use of anticoagulant; roasterman current use of aspirin; Abnormal result of other cardiovascular function study; Diastolic congestive heart failure (CMS/HCC); Arthrodesis status; Other fatigue Social History Tobacco Use Types Packs/Day Years Used Date Smoking Tobacco: Never Assessed Sex and Gender Information Value Date Recorded Sex Assigned at Not on file Legal Sex Male 3:11 AM INTENSIVE CARE MEDICINE SPECIALIST Gender Identity Not on file Sexual Orientation Not on file documented as of this encounter Medications at Time of Discharge niacin ER (NIASPAN) 1,000 mg CR tablet TAKE 1 TABLET AT BEDTIME. 10/20/2015 05/26/2018 documented as of this encounter Plan of Treatment Not on file documented as of this encounter Procedures Procedure Name Priority Date/Time Associated Diagnosis Comments BLOOD ACTIVATED CLOTTING TIME, LOW Routine 11/04/2015 12:34 PM INTENSIVE CARE MEDICINE SPECIALIST BLOOD ACTIVATED CLOTTING TIME, LOW Routine 11/04/2015 11:46 AM INTENSIVE CARE MEDICINE SPECIALIST CARDIAC CATHETERIZATION Routine 11/04/19 16 10:57 AM INTENSIVE CARE MEDICINE SPECIALIST BLOOD CELL COUNT Routine 11/04/2015 7:57 AM INTENSIVE CARE MEDICINE SPECIALIST DISCHARGE LABORATORY CUMULATIVE REPORT 11/04/2015 documented in this encounter Results * (ABNORMAL) Blood activated clotting time, low (11/04/2015 12:34 PM INTENSIVE CARE MEDICINE SPECIALIST) Coagulation time, activated 207(H) 123 - 168 seconds HISTORICAL RESULTS Blood specimen (specimen) 11/04/2015 12:34 PM INTENSIVE CARE MEDICINE SPECIALIST Hussain Sal MD LAB BLOOD ORDERABLES Zayra l Result Performing Organization Address [facility] de Phone Number HISTORICAL RESULTS * (ABNORMAL) Blood activated clotting time, low (11/04/2015 11:46 AM INTENSIVE CARE MEDICINE SPECIALIST) Coagulation time, activated 224(H) 123 - 168 seconds HISTORICAL RESULTS Blood specimen (specimen) 11/04/2015 11:46 AM INTENSIVE CARE MEDICINE SPECIALIST Hussain Sal MD LAB BLOOD ORDERABLES Zayra l Result Performing Organization Address [facility] de Phone Number HISTORICAL RESULTS * Cardiac catheterization (11/04/2015 10:57 AM INTENSIVE CARE MEDICINE SPECIALIST) Anatomical Region Laterality Modality Other 11/04/2015 10:5 7 AM INTENSIVE CARE MEDICINE SPECIALIST Narrative 11/04/2015 1:38 PM INTENSIVE CARE MEDICINE SPECIALIST Cardiovascular Procedure Center [facility] [address] [place] [address] Cardiac Catheterization Report Patient: LIAN ANDERSON : 1955 Age-Gender: 59 years- Male MR number: [id number] Study date: 11/04/2015 Height: 76 in Weight: 314.4 lb BSA: 2.69 m squared Fluoro time: 20.9 min Laminating Machine Operator Helper: ??HUSSAIN SAL MD INDICATIONS: Mr. Lian Anderson is a very pleasant 59-year-old gentleman who has a history of hypertension, morbid obesity (central abdominal obesity), sedentary lifestyle, obstructive sleep apnea, on CPAP for 7-8 years, chronic leg edema and congestive heart failure on Lasix, severe osteoarthritis, dyslipidemia, atherogenic LDL particle size of 215 as well as a type B pattern, and an elevated lipoprotein (a) test done at his primary MD's office with a value of 215 (3 times the reference value of 75), who had been having symptoms of chronic shortness of breath, which have recently worsened. He underwent a nuclear stress test which was high risk with 3-[address] depression in multiple leads and a large sized anterolateral defect. He is now undergoing cardiac catheterization to evaluate his worsening symptoms of shortness of breath and a high risk stress test. PROCEDURES PERFORMED: -- ??Left heart catheterization. -- ??Left coronary angiography. -- ??Right coronary angiography. -- ??Intervention on mid LAD: fractional flow reserve measurement. -- ??Intervention on mid RCA: fractional flow reserve measurement. PROCEDURE: The risks, benefits and alternatives of the procedures and moderate sedation were explained to the patient and informed consent was obtained. The patient was brought to the malthouse laborer and placed on the table. The planned puncture sites were prepped and draped in the usual sterile fashion. Cardiac catheterization performed. -- ??Right radial artery access. The puncture site was infiltrated with 2 % lidocaine. The vessel was accessed using the modified Seldinger technique, a wire was threaded into the vessel, and a 6 Fr x 10cm GlideSheath Slender was advanced over the wire into the vessel. Heparin was given after access was obtained. Vasodilators and heparin were given after access obtained. -- ??Left heart catheterization. A 5Fr 110cm Ghanshyam Radial 3.5 catheter was advanced to the ascending aorta.The catheter was advanced across the aortic valve and left ventricular pressure was recorded. The catheter was pulled back across the valve and ascending aortic pressure was obtained. -- ??Left coronary artery angiography. A 5Fr 110cm Ghanshyam Radial 3.5 catheter was advanced to the aorta and positioned in the vessel ostium under fluoroscopic guidance. Angiography was performed in multiple projections. Intracoronary nitroglycerin was given in order to achieve maximal vasodilatation. -- ??Right coronary artery angiography. A 5Fr 110cm Ghanshyam Radial 3.5 catheter was advanced to the aorta and positioned in the vessel ostium under fluoroscopic guidance. Angiography was performed in multiple projections. Intracoronary nitroglycerin was given in order to achieve maximal vasodilatation. LESION #1 : A fractional flow reserve measurement was performed on the lesion in the mid LAD. -- ??Fractional Flow [place] measurement was performed using a 0.014 pressure-monitoring 185 cm [place] Pressure guide-wire positioned at the distal tip of the 6Fr [place] 4.0 Heartrail III catheter. Steady baseline values were obtained and intracoronary adenosine was given. Mean arterial pressure and mean distal pressures were then obtained at maximum hyperemia. FFR was calculated to be 0.75. Based on the results, the lesion was judged to be significant. LESION #2: A fractional flow reserve measurement was performed on the lesion in the mid RCA. -- ??Fractional Flow [place] measurement was performed using a 0.014 pressure-monitoring 185 cm [place] Pressure guide-wire positioned at the distal tip of the 6Fr IL 4.0 Heartrail III catheter. Steady baseline values were obtained and intracoronary adenosine was given. Mean arterial pressure and mean distal pressures were then obtained at maximum hyperemia. FFR was calculated to be 0.93. Based on the results of this study, the lesion was judged to be non-significant and no intervention was performed. COMPLICATIONS: There were no adverse outcomes. HEMOSTASIS: The sheath was removed. Hemostasis was successful using TR Band device. CONTRAST GIVEN: 158 ml Optiray 350. RESULTS: HEMODYNAMICS: Hemodynamic assessment demonstrates moderately elevated LVEDP of 20 mmHg. CORONARY CIRCULATION: The coronary circulation is right dominant. There was severe 2-vessel coronary artery disease ( 70 % LAD and 95 % circumflex). Left main: Normal. Ostial LAD: There was a 40 % stenosis. Proximal LAD: There was a 70 % stenosis. An FFR of this lesion was hemodynamically significant (0.75). Mid LAD: Angiography showed diffuse narrowings less than 40%. 1st diagonal: Angiography showed minor luminal irregularities. Mid circumflex: There was a 95 % stenosis. The lesion was calcified. Proximal ramus intermedius: There was a 90 % stenosis. There is a second inferior Ramus which has a 80-90% lesion. In addition, a branch of this Ramus vessel is 100% occluded, filling via collaterals. Mid RCA: There was a 50 % stenosis. An FFR of this lesion was hemodynamically not significant (0.93). Right PDA: Angiography showed minor luminal irregularities. Right posterolateral segment: Angiography showed minor luminal irregularities. SUMMARY: -- ??HEMODYNAMICS: -- ??Hemodynamic assessment demonstrates moderately elevated LVEDP of 20 mmHg. -- ??CORONARY CIRCULATION: -- ??There was severe 2-vessel coronary artery disease ( 70 % LAD and 95 % circumflex). -- ??Proximal LAD: There was a 70 % stenosis. An FFR of this lesion was hemodynamically significant (0.75). -- ??Mid circumflex: There was a 95 % stenosis. The lesion was calcified. -- ??Proximal ramus intermedius: There was a 90 % stenosis. There is a second inferior Ramus which has a 80-90% lesion. In addition, a branch of this Ramus vessel is 100% occluded, filling via collaterals. -- ??1ST LESION: -- ??A fractional flow reserve measurement was performed on the lesion in the mid LAD. -- ??Fractional Flow [place] measurement was performed using a 0.014 pressure-monitoring 185 cm [place] Pressure guide-wire positioned at the distal tip of the 6Fr IL 4.0 Heartrail III catheter. Steady baseline values were obtained and intracoronary adenosine was given. Mean arterial pressure and mean distal pressures were then obtained at maximum hyperemia. FFR was calculated to be 0.75. Based on the results, the lesion was judged to be significant. -- ??2ND LESION: -- ??A fractional flow reserve measurement was performed on the lesion in the mid RCA. -- ??Fractional Flow [place] measurement was performed using a 0.014 pressure-monitoring 185 cm [place] Pressure guide-wire positioned at the distal tip of the 6Fr IL 4.0 Heartrail III catheter. Steady baseline values were obtained and intracoronary adenosine was given. Mean arterial pressure and mean distal pressures were then obtained at maximum hyperemia. FFR was calculated to be 0.93. Based on the results of this study, the lesion was judged to be non-significant and no intervention was performed. RECOMMENDATIONS: Mr. Lian Anderson has complex and calcified left coronary artery disease with a hemodynamically significant LAD lesion, a severe circumflex lesion and two ramus intermedius vessels which have severe lesions too. I have advised him that surgical revascularization will have a better long-term prognosis. We will stop today to discuss revascularization options and refer him to CT surgery. The RCA is not hemodynamically significant and may be medically managed. I was present during the entire procedure and personally dictated or confirmed the above report. Prepared and signed by HUSSAIN SAL MD Signed 11/04/2015 13:51:52 HEMODYNAMIC TABLES Pressures: ??Baseline Pressures: ??- HR: 66 Pressures: ??- Rhythm: Pressures: ??-- Aortic Pressure (S/D/M): 103/71/80 Pressures: ??-- Left Ventricle (s/edp): 90/22/-- Outputs: ??Baseline Outputs: ??-- CALCULATIONS[age] Outputs: ??-- CALCULATIONS: Body Surface Area: 2.69 Outputs: ??-- CALCULATIONS: Height in cm: 193.00 Outputs: ??-- CALCULATIONS: Sex: Male Outputs: ??-- CALCULATIONS: Weight in k.90 Procedure Note Provider, MD Abran - 02/05/2017 Cardiovascular Procedure Center [facility] [address], [address] [place], [place] [address] Cardiac Catheterization Report Patient: LIAN ANDERSON : 1955 Age-Gender: 59 years- Male MR number: [id number] Study date: 11/04/2015 Height: 76 in Weight: 314.4 lb BSA: 2.69 m squared Fluoro time: 20.9 min Laminating Machine Operator Helper: HUSSAIN SAL MD INDICATIONS: Mr. Lian Anderson is a very pleasant [id number] gentleman who has a history of hypertension, morbid obesity (centralabdominal obesity), sedentary lifestyle, obstructive sleep apnea, on CPAP for 7-8years, chronic leg edema and congestive heart failure on Lasix, severeosteoarthritis, dyslipidemia, atherogenic LDL particle size of 215 as well as a type Bpattern, and an elevated lipoprotein (a) test done at his primary MD's office witha value of 215 (3 times the reference value of 75), who had been havingsymptoms of chronic shortness of breath, which have recently worsened. He underwenta nuclear stress test which was high risk with 3-[address] depression inmultiple leads and a large sized anterolateral defect. He is now undergoingcardiac catheterization to evaluate his worsening symptoms of shortness of breathand a high risk stress test. PROCEDURES PERFORMED: -- Left heart catheterization. -- Left coronary angiography. -- Right coronary angiography. -- Intervention on mid LAD: fractional flow reserve measurement. -- Intervention on mid RCA: fractional flow reserve measurement. PROCEDURE: The risks, benefits and alternatives of the procedures andmoderate sedation were explained to the patient and informed consent was obtained.The patient was brought to the malthouse laborer and placed on the table. The planned puncture sites were prepped and draped in the usual sterile fashion.Cardiac catheterization performed. -- Right radial artery access. The puncture site was infiltrated with 2% lidocaine. The vessel was accessed using the modified Seldinger technique,a wire was threaded into the vessel, and a 6 Fr x 10cm GlideSheath Slenderwas advanced over the wire into the vessel. Heparin was given after accesswas obtained. Vasodilators and heparin were given after access obtained. -- Left heart catheterization. A 5Fr 110cm Ghanshyam Radial 3.5 catheterwas advanced to the ascending aorta.The catheter was advanced across theaortic valve and left ventricular pressure was recorded. The catheter was pulledback across the valve and ascending aortic pressure was obtained. -- Left coronary artery angiography. A 5Fr 110cm Ghanshyam Radial 3.5catheter was advanced to the aorta and positioned in the vessel ostium underfluoroscopic guidance. Angiography was performed in multiple projections.Intracoronary nitroglycerin was given in order to achieve maximal vasodilatation. -- Right coronary artery angiography. A 5Fr 110cm Ghanshyam Radial 3.5catheter was advanced to the aorta and positioned in the vessel ostium under fluoroscopic guidance. Angiography was performed in multipleprojections. Intracoronary nitroglycerin was given in order to achieve maximal vasodilatation. LESION #1 : A fractional flow reserve measurement was performed on thelesion in the mid LAD. -- Fractional Flow [place] measurement was performed using a 0.014 pressure-monitoring 185 cm [place] Pressure guide-wire positionedat the distal tip of the 6Fr IL 4.0 Heartrail III catheter. Steady baselinevalues were obtained and intracoronary adenosine was given. Mean arterialpressure and mean distal pressures were then obtained at maximum hyperemia. FFR was calculated to be 0.75. Based on the results, the lesion was judged to be significant. LESION #2: A fractional flow reserve measurement was performed on thelesion in the mid RCA. -- Fractional Flow [place] measurement was performed using a 0.014 pressure-monitoring 185 cm [place] Pressure guide-wire positionedat the distal tip of the 6Fr IL 4.0 Heartrail III catheter. Steady baselinevalues were obtained and intracoronary adenosine was given. Mean arterialpressure and mean distal pressures were then obtained at maximum hyperemia. FFR was calculated to be 0.93. Based on the results of this study, the lesionwas judged to be non-significant and no intervention was performed. COMPLICATIONS: There were no adverse outcomes. HEMOSTASIS: The sheath was removed. Hemostasis was successful using TRBand device. CONTRAST GIVEN: 158 ml Optiray 350. RESULTS: HEMODYNAMICS: Hemodynamic assessment demonstrates moderately elevatedLVEDP of 20 mmHg. CORONARY CIRCULATION: The coronary circulation is right dominant. Therewas severe 2-vessel coronary artery disease ( 70 % LAD and 95 % circumflex). Left main: Normal. Ostial LAD: There was a 40 % stenosis. Proximal LAD: There was a 70 % stenosis. An FFR of this lesion was hemodynamically significant (0.75). Mid LAD: Angiography showed diffuse narrowings less than 40%. 1st diagonal: Angiography showed minor luminal irregularities. Mid circumflex: There was a 95 % stenosis. The lesion was calcified. Proximal ramus intermedius: There was a 90 % stenosis. There is a second inferior Ramus which has a 80-90% lesion. In addition, a branch of thisRamus vessel is 100% occluded, filling via collaterals. Mid RCA: There was a 50% stenosis. An FFR of this lesion was hemodynamically not significant(0.93). Right PDA: Angiography showed minor luminal irregularities. Right posterolateral segment: Angiography showed minor luminalirregularities. SUMMARY: -- HEMODYNAMICS: -- Hemodynamic assessment demonstrates moderately elevated LVEDP of 20mmHg. -- CORONARY CIRCULATION: -- There was severe 2-vessel coronary artery disease ( 70 % LAD and 95% circumflex). -- Proximal LAD: There was a 70 % stenosis. An FFR of thislesion was hemodynamically significant (0.75). -- Mid circumflex: There was a 95 % stenosis. The lesion was calcified. -- Proximal ramus intermedius: There was a 90 % stenosis. There is asecond inferior Ramus which has a 80-90% lesion. In addition, a branch of thisRamus vessel is 100% occluded, filling via collaterals. -- 1ST LESION: -- A fractional flow reserve measurement was performed on the lesion inthe mid LAD. -- Fractional Flow [place] measurement was performed using a0.014 pressure-monitoring 185 cm [place] Pressure guide-wire positionedat the distal tip of the 6Fr IL 4.0 Heartrail III catheter. Steady baselinevalues were obtained and intracoronary adenosine was given. Mean arterialpressure and mean distal pressures were then obtained at maximum hyperemia. FFR was calculated to be 0.75. Based on the results, the lesion was judged to be significant. -- 2ND LESION: -- A fractional flow reserve measurement was performed on the lesion inthe mid RCA. -- Fractional Flow [place] measurement was performed using a0.014 pressure-monitoring 185 cm [place] Pressure guide-wire positionedat the distal tip of the 6Fr [place] 4.0 Heartrail III catheter. Steady baselinevalues were obtained and intracoronary adenosine was given. Mean arterialpressure and mean distal pressures were then obtained at maximum hyperemia. FFR was calculated to be 0.93. Based on the results of this study, the lesionwas judged to be non-significant and no intervention was performed. RECOMMENDATIONS: Mr. Lian Anderson has complex and calcified left coronary artery diseasewith a hemodynamically significant LAD lesion, a severe circumflex lesion andtwo ramus intermedius vessels which have severe lesions too. I have advisedhim that surgical revascularization will have a better long-term prognosis. Wewill stop today to discuss revascularization options and refer him to CTsurgery. The RCA is not hemodynamically significant and may be medically managed. I was present during the entire procedure and personally dictated orconfirmed the above report. Prepared and signed by HUSSAIN SAL MD Signed 11/04/2015 13:51:52 HEMODYNAMIC TABLES Pressures: Baseline Pressures: - HR: 66 Pressures: - Rhythm: Pressures: -- Aortic Pressure (S/D/M): 103/71/80 Pressures: -- Left Ventricle (s/edp): 90/22/-- Outputs: Baseline Outputs: -- CALCULATIONS[age] Outputs: -- CALCULATIONS: Body Surface Area: 2.69 Outputs: -- CALCULATIONS: Height in cm: 193.00 Outputs: -- CALCULATIONS: Sex: Male Outputs: -- CALCULATIONS: Weight in k.90 Historical Provider CV CARDIAC CATH PROCEDURE S Final Result * (ABNORMAL) Blood cell count [CBC] express (11/04/2015 7:57 AM INTENSIVE CARE MEDICINE SPECIALIST) Pathologist [facility] WBC 6.5 3.8 - 9.8 K/cumm HISTORICAL RESULTS RBC 4.42(L) 4.50 - 5.70 M/cumm HISTORICAL RESULTS Hgb 14.2 13.8 - 17.2 g/dl HISTORICAL RESULTS Hct 41.0 40.7 - 50.3 % HISTORICAL RESULTS MCV 92.7 80.0 - 97.6 fl HISTORICAL RESULTS MCH 32.1 26.7 - 33.7 pg HISTORICAL RESULTS MCHC 34.7 32.7 - 35.5 g/dl HISTORICAL RESULTS Rdw 12.8 11.8 - 14.6 % HISTORICAL RESULTS Platelets 138(L) 140 - 440 K/cumm HISTORICAL RESULTS MPV 9.9 6.8 - 10.4 fl HISTORICAL RESULTS Blood specimen (specimen) 11/04/2015 7:57 AM INTENSIVE CARE MEDICINE SPECIALIST Hussain Sal MD LAB BLOOD ORDERABLES Zayra l Result HISTORICAL RESULTS * DISCHARGE LABORATORY CUMULATIVE REPORT (11/04/2015) Narrative 11/04/2015 Ordered by an unspecified provider. Historical Provider LAB BLOOD ORDERABLES Zayra l Result documented in this encounter Visit Diagnoses Diagnosis Atherosclerotic heart disease of [place] coronary artery without angina pectoris Osteoarthritis Osteoarthrosis, unspecified whether generalized or localized, unspecified site Sleep apnea Unspecified sleep apnea Morbid (severe) obesity due to excess calories (HCC) Essential (primary) hypertension Unspecified essential hypertension Edema Heart failure (HCC) Unspecified heart failure Hyperlipidemia Other and unspecified hyperlipidemia Pure hypercholesterolemia roasterman current use of anticoagulant roasterman current use of aspirin Abnormal result of other cardiovascular function study Diastolic congestive heart failure (CMS/HCC) (HCC) Arthrodesis status Other fatigue documented in this encounter
--- OUTSIDE RECORDS SUMMARY | 2024-10-05 02:54 | XMS_ITS | Encounter Summary ---
Author Organization [facility] Care Team Providers Care Food Service Assistant Name Role Phone Unavailable Primary Care Provider Unavailabl e Encounter Details Date Type Department Care Team (Latest Contact Info) Description 05/13/2014 9:54 AM CDT - 05/13/2014 11:59 PM CDT Hospital Encounter [facility] Juan Antonio Harper MD [address] [place] [id number] Postlaminectomy syndrome, lumbar region; Vitamin D deficiency Social History Tobacco Use Types Packs/Day Years Used Date Smoking Tobacco: Never Assessed Sex and Gender Information Value Date Recorded Sex Assigned at Not on file 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 Gender Identity Not on file Sexual Orientation Not on file documented as of this encounter Plan of Treatment Not on file documented as of this encounter Procedures Procedure Name Priority Date/Time Associated Diagnosis Comments SERUM 25-HYDROXYCHOLECALCI FEROL (VITAMIN D) Routine 05/13/2014 10:43 AM CDT XR SPINE LUMBAR 2 OR 3 VIEWS Routine 05/13/2014 10:35 AM CDT DISCHARGE LABORATORY CUMULATIVE REPORT 05/13/2014 documented in this encounter Results * Serum 25-hydroxycholecalciferol (vitamin D) (05/13/2014 10:43 AM CDT) 25-OH Vit D 52 30 - 100 ng/ml HISTORICAL RESULTS Serum 05/13/2014 10:4 3 AM CDT us Juan Antonio Harper MD LAB BLOOD ORDERABLES Final R esult HISTORICAL RESULTS * XR Spine Lumbar 2 or 3 Views (05/13/2014 10:35 AM CDT) Anatomical Region Laterality Modality Spine N/A Radiographic Alexandra ging 05/13/2014 10:3 5 AM CDT Narrative 05/13/2014 2:52 PM CDT Two view lumbar spine radiograph 05/13/2014 HISTORY: Status post surgery. FINDINGS: Two views of the lumbar spine are compared to previous study 03/22/2014. Bilateral transpedicle screws are seen from L3 through L5 with posterolateral bone in place. ??The postoperative changes appear to be stable. ??Laminectomy has been performed at L4. There is a trace anterolisthesis of L3 on L4, stable. ??Degenerative spondylosis is seen at all levels and there is chronic L1 compression fracture. SUMMARY: 1. Stable. ?? LP/tab Radiologist: STEFFI LATIF M.D. ?? Attending: ??JUAN ANTONIO HARPER M.D. Requesting: JUAN ANTONIO HARPER M.D. Requesting Fax: ?? Requesting ID: [id number] Attending Fax: ?? Attending ID: ?? [id number] Completed Time: ?? 05/13/2014 10:35 AM Dictated Time: ?05/13/2014 10:54 AM Transcribed Time: 05/13/2014 2:00 PM Signed by: ?STEFFI LATIF ??Rukhsana on 05/13/2014 2:52 PM Report To 1 ID: Report To 1 Name: , Report To 1 FAX: Report To 2 ID: Report To 2 Name: , Report To 2 FAX: Report To 3 ID: Report To 3 Name: , Report To 3 FAX: NextGen Order #: Procedure Note Provider, MD Abran - 02/11/2017 Two view lumbar spine radiograph 05/13/2014 HISTORY: Status post surgery. FINDINGS: Two views of the lumbar spine are compared to previous study 03/22/2014. Bilateral transpedicle screws are seen from L3 through L5 with posterolateral bone in place. The postoperative changes appear to be stable. Laminectomy has been performed at L4. There is a trace anterolisthesis of L3 on L4, stable. Degenerative spondylosis is seen at all levels and there is chronic L1 compression fracture. SUMMARY: 1. Stable. LP/tab Radiologist: STEFFI LATIF M.D. Attending: JUAN ANTONIO HARPER M.D. Requesting: JUAN ANTONIO HARPER M.D. Requesting Requesting ID: [id number] Attending Attending ID: [id number] Completed Time: 05/13/2014 10:35 AM Dictated Time: 05/13/2014 10:54 AM Transcribed Time: 05/13/2014 2:00 PM Signed by: STEFFI LATIF M.D. on 05/13/2014 2:52 PM Report To 1 ID: Report To 1 Name: , Report To 1 FAX: Report To 2 ID: Report To 2 Name: , Report To 2 FAX: Report To 3 ID: Report To 3 Name: , Report To 3 FAX: NextGen Order #: us Historical Provider IMMariano XR PROCEDURES Final R esult * DISCHARGE LABORATORY CUMULATIVE REPORT (05/13/2014) Narrative 05/13/2014 Ordered by an unspecified provider. us Historical Provider LAB BLOOD ORDERABLES Zayra l Result documented in this encounter Visit Diagnoses Diagnosis Postlaminectomy syndrome, lumbar region Vitamin D deficiency documented in this encounter
--- OUTSIDE RECORDS SUMMARY | 2024-10-05 02:54 | XMS_ITS | Encounter Summary ---
Author Organization [facility] Address [address] [place] [address] Phone Care Team Providers Care Chemical Plant Operator Supervisor Name Role Phone Gianluca Price MD Primary Care Provider Reason for Visit * Cardiology (Routine) - Closed Specialty Diagnoses / Procedures Referred By Antonietta livingston Referred To Contact Cardiology Diagnoses Appt Comment: 1 YR FUP Procedures RETURN Gianluca Price MD Phone: tel: fax: Hussain Mitchell MD [address] [place] [address] Phone: tel: fax: Referral ID Status Reason Start Date Expiration Date Visits Re quested Visits Authorized [id number] Closed 06/04/2019 06/03/2020 6 6 Encounter Details Date Type Department Care Team (Latest Contact Info) Description 06/24/2018 1:45 PM CDT Office Visit [facility] Cardiology [address] [place] [address] Hussain Mitchell MD [address] [place] [address] Shortness of breath (Primary Dx); Abnormal cardiovascular stress test; Hypertension, unspecified type; Triple vessel coronary artery disease; Hyperlipidemia, unspecified hyperlipidemia type Social History Tobacco Use Types Packs/Day Years Used Date Smoking Tobacco: Never Smokeless Tobacco: Never Sex and Gender Information Value Date Recorded Sex Assigned at Not on file 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 Gender Identity Not on file Sexual Orientation Not on file documented as of this encounter Last Filed Vital Signs Vital Sign Reading Time Taken Comments Blood Pressure 123/67 06/24/2018 2:00 PM CDT Pulse 84 06/24/2018 2:00 PM CDT Temperature 37 ??C (98.6 ??F) 06/24/2018 2:00 PM CDT Respiratory Rate - - Oxygen Saturation 98% 06/24/2018 2:00 PM CDT Inhaled Oxygen Concentration - - Weight 152.3 kg (335 lb 11.2 oz) 06/24/2018 2:00 PM CDT Height 193 cm (6' 4 ) 06/24/2018 2:00 PM CDT Body Mass Index 40.86 06/24/2018 2:00 PM CDT documented in this encounter Patient Instructions * Patient Instructions* Hussain Mitchell MD - 06/24/2018 1:45 PM CDT 1. Please pick up man your Brillinta discount card. 2. Please continue Brillinta. 3. We have switched to regular Niacin. 4. Please check lipid profile in 3 months. 5. Walk daily. documented in this encounter Ordered Prescriptions Prescription Sig Dispense Quantity Refills Last Filled Start Date End Date niacin 500 mg tablet Take 2 tablets (1,000 mg total) by mouth 2 (two) times a day with meals. 120 tablet 11 06/24/2018 8 documented in this encounter Progress Notes * Hussain Mitchell MD - 06/24/2018 1:45 PM CDT Images from the original note were not included. Patient's Name: Du Anderson : 1955 [place]: 06/24/2018 PRINCIPAL AND SECONDARY DIAGNOSES: 1. Complex coronary disease. Complex PCI of trifurcating left main circumflex, inferior ramus, superior ramus, and ostial LAD in a staged manner with multiple CRISTHIAN stents. 2. Hypertension. 3. Morbid obesity which is central abdominal obesity. 4. Obstructive sleep apnea. 5. Dyslipidemia. Very atherogenic LDL particle size of 215 as well as type B pattern. 6. Elevated lipoprotein A of 215 which is three times the reference value of 75. INTERVAL HISTORY: Du Anderson returns for follow-up. We have done a complex stenting of his ostialLAD, ostial ramus, and ostial circumflex in the past. He continues to do well. He underwent left knee replacement recently. Previously he had undergone right knee replacement. His Brilinta was restarted after the procedure. He has some 1+ edema today. He has undergone rehab. He is now exercising onthe recumbent bike for 15 minutes. He does not describe any chest pain nor shortness of breath. Overall he is doing very well. He mentions today that with Medicare he will be in the donut hole and is requesting change to his more expensive medications which include: Brillinta, Niacin and KCL capsu les. REVIEW OF SYMPTOMS: All systems were reviewed [...] twice a day PHYSICAL EXAM: Vitals BP 123/67 Pulse 84 Temp 37 ??C (98.6 ??F) Ht 193 cm (6' 4 ) Wt (!) 152.3 kg (335 lb 11.2 oz) SpO2 98% BMI 40.86 kg/m?? GEN: pleasant in NAD; alert, comfortable HENT: NCAT, MMM, anicteric Neck: no trauma, no JVD CVS: RRR, S1S2, no rubs/murmurs/gallops PULM: non-labored, CTAB, good inspiratory effort ABD: soft, not tender to palpation EXT: equal radial pulses, no edema Neuro: motor and sensation grossly intact Skin: warm, dry, no cyanosis OBJECTIVE DATA: Lab Results Component Value Date GLUCOSE 104 (H) 06/04/2018 CALCIUM 9.4 06/04/2018 SODIUM 139 06/04/2018 POTASSIUM 3.6 06/04/2018 CO2 25 06/04/2018 CHLORIDE 104 06/04/2018 BUNSER 14 06/04/2018 CREATININE 0.89 06/04/2018 No results found for: NTPROBNP Lab Results Component Value Date WBC 3.9 06/04/2018 HGB 12.6 (L) 06/04/2018 HCT 37.9 (L) 06/04/2018 MCV 96.7 06/04/2018 LABPLAT 185 06/04/2018 Lab Results Component Value Date LDL 75 06/04/2018 HDL 45 06/04/2018 ASSESSMENT AND PLAN: Du Anderson is a very pleasant 61-year-old gentleman here for follow-up. 1. Coronary disease. He continues to do well. We will make no change to his regimen. We have advised he continue on Brillinta. We will provide him with the new Brillinta discount coupons. 2. Hypertension, well controlled. 3. Dyslipidemia. He is on high-dose Lipitor and Niacin ER 1000 mg daily. His We will switch to regular Niacin 1,000 mg BID. He states the flushing does not bother him. We will need a lipid profile in3 months. 4. Obstructive sleep apnea. 5. Osteoarthritis. He has done well after right knee replacement. He is scheduled for left knee surgery soon. 6. Lifestyle. I advised daily exercise. It was pleasure to participate in the care of Du Anderson. We will see him back in six months. Sincerely, Hussain Mitchell MD, MSc Analyst Programmer of Cardiology [facility] [employer] documented in this encounter Plan of Treatment Not on file documented as of this encounter Visit Diagnoses Diagnosis Shortness of breath- Primary Abnormal cardiovascular stress test Other nonspecific abnormal cardiovascular system function study Hypertension, unspecified type Triple vessel coronary artery disease Coronary atherosclerosis of unspecified type of vessel, [place] or graft Hyperlipidemia, unspecified hyperlipidemia type documented in this encounter Discontinued Medications Medication Sig Discontinue Reason Start Date End Da te niacin ER (NIASPAN) 1,000 mg CR tablet Take 1 tablet (1,000 mg total) by mouth nightly. at bedtime. Other 05/26/2018 06/24/2018 POTASSIUM CHLORIDE ER 10 mEq CR capsule Other 06/10/2018 06/24/2018 documented as of this encounter Historical Medications * This list may reflect changes made after this encounter. allopurinol (ZYLOPRIM) 300 mg tabletIndications :prevention of acute gout attack Take 1 tablet (300 mg total) by mouth nightly 06/01/2018 aspirin 81 mg tablet Take 81 mg by mouth daily. 10/22/2019 POTASSIUM CHLORIDE ER 10 mEq CR capsule 06/10/2018 06/24/2018 hydroCHLOROthiazi de (HYDRODIURIL) 25 mg tablet Take 25 mg by mouth daily 06/03/2018 02/13/2022 furosemide (LASIX) 20 mg tablet 06/15/2018 08/06/2018 quinapril (ACCUPRIL) 40 mg tablet Take 40 mg by mouth daily 05/23/2018 02/13/2022 carvedilol (COREG) 6.25 mg tablet 05/23/2018 08/06/2018 atorvastatin (LIPITOR) 40 mg tablet 06/15/2018 08/06/2018 ticagrelor (BRILINTA) 90 mg tablet Take one Tablet by mouth twice a day 11/16/2015 08/25/2018 HYDROcodone-aceta minophen (NORCO) 5-325 mg per tabletIndications :Pain 0 04/05/2018 06/07/2020 added in this encounter Care Teams Chemical Plant Operator Supervisor Relationship Specialty Start Date End Date Gianluca Price MD PCP - General 06/18/17 documented as of this encounter
--- OUTSIDE RECORDS SUMMARY | 2024-10-05 02:54 | XMS_ITS | Encounter Summary ---
Author Organization [facility] Care Team Providers Care Clinical Research Physician Name Role Phone Unavailable Primary Care Provider Unavailabl e Encounter Details Date Type Department Care Team (Latest Contact Info) Description 12/21/2013 11:06 AM CDT - 12/21/2013 11:59 PM CDT Hospital Encounter [facility] Juan Antonio Harper MD [address] [place] [id number] Postlaminectomy syndrome, lumbar region; Vitamin D deficiency Social History Tobacco Use Types Packs/Day Years Used Date Smoking Tobacco: Never Assessed Sex and Gender Information Value Date Recorded Sex Assigned at Not on file 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 Gender Identity Not on file Sexual Orientation Not on file documented as of this encounter Plan of Treatment Not on file documented as of this encounter Procedures Procedure Name Priority Date/Time Associated Diagnosis Comments SERUM 25-HYDROXYCHOLECALCI FEROL (VITAMIN D) Routine 12/21/2013 11:59 AM CDT XR SPINE LUMBAR 2 OR 3 VIEWS Routine 12/21/2013 11:55 AM CDT DISCHARGE LABORATORY CUMULATIVE REPORT 12/21/2013 documented in this encounter Results * Serum 25-hydroxycholecalciferol (vitamin D) (12/21/2013 11:59 AM CDT) 25-OH Vit D 32 30 - 100 ng/ml HISTORICAL RESULTS Serum 12/21/2013 11:5 9 AM CDT us Juan Antonio Harper MD LAB BLOOD ORDERABLES Final R esult HISTORICAL RESULTS * XR Spine Lumbar 2 or 3 Views (12/21/2013 11:55 AM CDT) Anatomical Region Laterality Modality Spine N/A Radiographic Alexandar ging 12/21/2013 11:5 5 AM CDT Narrative 12/21/2013 3:50 PM CDT Examination: Lumbar spine two or three views DATE: 12/21/2013. HISTORY: Post laminectomy syndrome. FINDINGS: Frontal, lateral and coned-down lateral views of the lumbar spine are submitted without comparison. ??There has been posterior instrumented lumbar fusion procedure performed from L3 through L5 with bi-pedicular screws and vertically connecting rods. L4 laminectomy, L3 laminotomy and L5 laminotomies have been performed. Posterolateral bone graft is in place. There is minimal grade 1 anterolisthesis of L3 upon L4. Lumbar alignment is otherwise normal. Multilevel degenerative disc disease is present. Superior endplate compression deformity is noted at L1. Correlate with prior imaging studies. IMPRESSION: 1. Posterior instrumented lumbar fusion procedure L3-L5 as detailed above. 2. Multilevel degenerative disc disease lumbar spine. 3. Grade 1 anterolisthesis L3 upon L4. 4. Age indeterminate L1 compression deformity. Correlate with prior imaging studies. TOBI/tab Radiologist: LILLIE REILLY M.D. ?? Attending: ??JUAN ANTONIO HARPER M.D. Requesting: JUAN ANTONIO HARPER M.D. Requesting Fax: ?? Attending Fax: ?? Attending ID: ?? [id number] Completed Time: ?? 12/21/2013 11:55 AM Dictated Time: ?12/21/2013 2:02 PM Transcribed Time: 12/21/2013 2:47 PM Signed by: ?LILLIE REILLY on 12/21/2013 3:50 PM Report To 1 ID: Report To 1 Name: , Report To 1 FAX: Report To 2 ID: Report To 2 Name: , Report To 2 FAX: Report To 3 ID: Report To 3 Name: , Report To 3 FAX: NextGen Order #: Procedure Note Provider, MD Abran - 02/11/2017 Examination: Lumbar spine two or three views DATE: 12/21/2013. HISTORY: Post laminectomy syndrome. FINDINGS: Frontal, lateral and coned-down lateral views of the lumbar spine are submitted without comparison. There has been posterior instrumented lumbar fusion procedure performed from L3 through L5 with bi-pedicular screws and vertically connecting rods. L4 laminectomy, L3 laminotomy and L5 laminotomies have been performed. Posterolateral bone graft is in place. There is minimal grade 1 anterolisthesis of L3 upon L4. Lumbar alignment is otherwise normal. Multilevel degenerative disc disease is present. Superior endplate compression deformity is noted at L1. Correlate with prior imaging studies. IMPRESSION: 1. Posterior instrumented lumbar fusion procedure L3-L5 as detailed above. 2. Multilevel degenerative disc disease lumbar spine. 3. Grade 1 anterolisthesis L3 upon L4. 4. Age indeterminate L1 compression deformity. Correlate with prior imaging studies. TOBI/tab Radiologist: LILLIE REILLY M.D. Attending: JUAN ANTONIO HARPER M.D. Requesting: JUAN ANTONIO HARPER M.D. Requesting Attending Attending ID: [id number] Completed Time: 12/21/2013 11:55 AM Dictated Time: 12/21/2013 2:02 PM Transcribed Time: 12/21/2013 2:47 PM Signed by: LILLIE REILLY M.D. on 12/21/2013 3:50 PM Report To 1 ID: Report To 1 Name: , Report To 1 FAX: Report To 2 ID: Report To 2 Name: , Report To 2 FAX: Report To 3 ID: Report To 3 Name: , Report To 3 FAX: NextGen Order #: Historical Provider IMG XR PROCEDURES Final R esult * DISCHARGE LABORATORY CUMULATIVE REPORT (12/21/2013) Narrative 12/21/2013 Ordered by an unspecified provider. Historical Provider LAB BLOOD ORDERABLES Zayra l Result documented in this encounter Visit Diagnoses Diagnosis Postlaminectomy syndrome, lumbar region Vitamin D deficiency documented in this encounter
--- OUTSIDE RECORDS SUMMARY | 2024-10-05 02:54 | XMS_ITS | Encounter Summary ---
Author Organization [facility] Facility Care Team Providers Care Supervisor [facility] Name Role Phone Unavailable Primary Care Provider Unavailabl e Encounter Details Date Type Department Care Team (Late st Contact Info) Description 10/19/2015 - 10/19/2015 11:59 PM CLASSIFIED ADVERTISING MANAGER Hospital Encounter [facility] Hussain Carlin MD [address] [facility] [address] [place] [address] Encounter for general adult medical examination without abnormal findings Social History Tobacco Use Types Packs/Day Years Used Date Smoking Tobacco: Never Assessed Sex and Gender Information Value Date Recorded Sex Assigned at Not on file 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 Gender Identity Not on file Sexual Orientation Not on file documented as of this encounter Plan of Treatment Not on file documented as of this encounter Procedures Procedure Name Priority Date/Time Associated Diagnosis Comments SERUM LIPID PANEL Routine 10/19/2015 1:0 6 PM CLASSIFIED ADVERTISING MANAGER SERUM ASPARTATE TRANSAMINASE (AST) Routine 10/19/2015 1:06 PM CLASSIFIED ADVERTISING MANAGER SERUM ALANINE TRANSAMINASE (ALT) Routine 10/19/2015 1:06 PM CLASSIFIED ADVERTISING MANAGER PLASMA BASIC METABOLIC PANEL Routine 10/19/2015 1:06 PM CLASSIFIED ADVERTISING MANAGER BLOOD CELL COUNT (CBC) Routine 10/19/2015 1:06 PM CLASSIFIED ADVERTISING MANAGER SERUM LIPOPROTEIN A Routine 10/19/2015 1 :02 PM CLASSIFIED ADVERTISING MANAGER DISCHARGE LABORATORY CUMULATIVE REPORT 10/19/2015 documented in this encounter Results * Serum alanine transaminase (ALT) (10/19/2015 1:06 PM CLASSIFIED ADVERTISING MANAGER) ALT 53 7 - 53 Units/L HISTORICAL RESULTS Serum 10/19/2015 1:06 PM CLASSIFIED ADVERTISING MANAGER Hussain Mitchell MD LAB BLOOD ORDERABLES Zayra l Result Performing Organization Address [facility] de Phone Number HISTORICAL RESULTS * Serum aspartate transaminase (AST) (10/19/2015 1:06 PM CLASSIFIED ADVERTISING MANAGER) AST 37 11 - 47 Units/L HISTORICAL RESULTS Serum 10/19/2015 1:06 PM CLASSIFIED ADVERTISING MANAGER us Hussain Mitchell MD LAB BLOOD ORDERABLES Zayra l Result Performing Organization Address [facility] de Phone Number HISTORICAL RESULTS * (ABNORMAL) Serum lipid panel (10/19/2015 1:06 PM CLASSIFIED ADVERTISING MANAGER) Cholesterol 155 0 - 200 mg/dl HISTORICAL RESULTS Comment: Interpretive Data Desirable: ?<200 mg/dL Borderline high: ??200-239 mg/dL High: ? >240 mg/dL Literature Reference: National Cholesterol Education Program (NCEP) Expert Panel on Detection, Evaluation, and Treatment of High Blood Cholesterol in Adults (Adult Treatment Panel III). ??Circulation 2004; 110:227. Current interpretive data was last revised on 2005. Triglycerides 306(H) 0 - 150 mg/dl HISTORICAL RESULTS Comment: Interpretive Data Desirable: ? < 150 mg/dL Borderline High: ? 150 - 199 mg/dL High: ?> 200 mg/dL Literature Reference: See Cholesterol Current interpretive data was last revised on 07. HDL 46 40 - 199 mg/dl HISTORICAL RESULTS Comment: Interpretive Data Less than 40 mg/dL - low; A major risk factor for heart disease. Greater than or equal to 60 mg/dL - High; ??considered protective of heart disease. Literature Reference: See Cholesterol Current interpretive data was last revised on 2008. LDL 48 0 - 129 mg/dl HISTORICAL RESULTS Comment: Interpretive Data Optimal: ? < 100 mg/dL Near Optimal: ?100 - 129 mg/dL Borderline High: ?? 130 - 159 mg/dL High: ?> 160 mg/dL Literature Reference: See Cholesterol Current interpretive data was last revised on 07. Non-HDL cholesterol, calculated 109 mg/dl HISTORICAL RESULTS Comment: Interpretive Data When triglycerides are >200 mg/dL, non-HDL C is a secondary target of therapy, with a goal 30 mg/dL higher than the identified LDL-C goal. Reference: ??See Cholesterol Reference. Current interpretive data was last revised 2012. Serum 10/19/2015 1:06 PM CLASSIFIED ADVERTISING MANAGER Hussain Mitchell MD LAB BLOOD ORDERABLES Zayra l Result Performing Organization Address [facility] Co de Phone Number HISTORICAL RESULTS * Plasma basic metabolic panel (10/19/2015 1:06 PM CLASSIFIED ADVERTISING MANAGER) Sodium 140 135 - 145 mmol/L HISTORICAL RESULTS K, pl 4.0 3.3 - 4.9 mmol/L HISTORICAL RESULTS Chloride 103 97 - 110 mmol/L HISTORICAL RESULTS CO2 27 22 - 32 mmol/L HISTORICAL RESULTS A. gap 10 0 - 16 mmol/L HISTORICAL RESULTS Glucose 97 70 - 199 mg/dl HISTORICAL RESULTS BUN 18 8 - 25 mg/dl HISTORICAL RESULTS Creatinine 0.87 0.70 - 1.30 mg/dl HISTORICAL RESULTS Calcium 9.6 8.6 - 10.3 mg/dl HISTORICAL RESULTS Plasma 10/19/2015 1:06 PM CLASSIFIED ADVERTISING MANAGER us Hussain Mitchell MD LAB BLOOD ORDERABLES Zayra l Result Performing Organization Address [facility] Co de Phone Number HISTORICAL RESULTS * (ABNORMAL) Blood cell count (CBC) (10/19/2015 1:06 PM CLASSIFIED ADVERTISING MANAGER) WBC 5.9 3.8 - 9.8 K/cumm HISTORICAL RESULTS RBC 4.73 4.50 - 5.70 M/cumm HISTORICAL RESULTS Hgb 15.1 13.8 - 17.2 g/dl HISTORICAL RESULTS Hct 44.3 40.7 - 50.3 % HISTORICAL RESULTS MCV 93.7 80.0 - 97.6 fl HISTORICAL RESULTS MCH 32.0 26.7 - 33.7 pg HISTORICAL RESULTS MCHC 34.1 32.7 - 35.5 g/dl HISTORICAL RESULTS Rdw 13.2 11.8 - 14.6 % HISTORICAL RESULTS Platelets 161 140 - 440 K/cumm HISTORICAL RESULTS MPV 11.5(H) 6.8 - 10.4 fl HISTORICAL RESULTS Neutrophils 58.2 38.7 - 74.5 % HISTORICAL RESULTS Lymphocytes 25.6 20.0 - 54.3 % HISTORICAL RESULTS Monos 8.7 4.3 - 13.5 % HISTORICAL RESULTS Eosinophils 6.8(H) 0.0 - 6.0 % HISTORICAL RESULTS Basophils 0.7 0.0 - 3.0 % HISTORICAL RESULTS Neutrophils, abs 3.4 1.8 - 6.6 K/cumm HISTORICAL RESULTS Lymphocytes, abs 1.5 1.2 - 3.3 K/cumm HISTORICAL RESULTS Monocytes, absolute 0.5 0.2 - 1.2 K/cumm HISTORICAL RESULTS Eosinophils, abs 0.4 0.0 - 0.5 K/cumm HISTORICAL RESULTS Basophils, abs 0.0 0.0 - 0.2 K/cumm HISTORICAL RESULTS Blood specimen (specimen) 10/19/2015 1:06 PM CLASSIFIED ADVERTISING MANAGER Hussain Mejia Mitchell MD LAB BLOOD ORDERABLES Zayra l Result HISTORICAL RESULTS * (ABNORMAL) Serum lipoprotein a (10/19/2015 1:02 PM CLASSIFIED ADVERTISING MANAGER) Lipoprotein A 102(H) <=30 mg/dl HISTORICAL RESULTS Comment: Elevated Lp(a). Lp(a) is prothrombotic and proatherogenic. Lp(a) expression is primarily genetically driven and is minimally altered by therapeutic lifestyle changes. Patients with large isoforms of Lp(a) may have elevated Lp(a) protein concentrations without increased risk. Measurement of Lp(a) cholesterol (test LPAWS/Lp(a) Cholesterol,S) may better facilitate cardiovascular risk assessment, since it is not influenced by isoform size. The National Lipid Association, the Atherosclerosis Society, and NCEP/ATPIII consider elevated Lp(a) an optional indicator for atherosclerotic cardiovascular disease risk refinement. Test Performed by: [place] [address] Hydraulic Boom Operator: Mohamud Soares II, M.D., Ph.D. Serum 10/19/2015 1:02 PM CLASSIFIED ADVERTISING MANAGER Hussain Mitchell MD LAB BLOOD ORDERABLES Zayra l Result HISTORICAL RESULTS * DISCHARGE LABORATORY CUMULATIVE REPORT (10/19/2015) Narrative 10/19/2015 Ordered by an unspecified provider. Historical Provider LAB BLOOD ORDERABLES Zayra l Result documented in this encounter Visit Diagnoses Diagnosis Encounter for general adult medical examination without abnormal findings documented in this encounter
--- OUTSIDE RECORDS SUMMARY | 2024-10-05 02:54 | XMS_ITS | Encounter Summary ---
Author Organization [facility] Facility Care Team Providers Care Continuous Improvement Black Belt Name Role Phone Unavailable Primary Care Provider Unavailabl e Encounter Details Date Type Department Care Team (Latest Contact Info) Description 11/21/2015 5:59 AM GLASS WORKER - 11/21/2015 4:00 PM [facility] Hospital Encounter 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 10/20/2015 05/26/2018 ticagrelor (BRILINTA) 90 mg tablet Take one Tablet by mouth twice a day 11/16/2015 08/25/2018 documented as of this encounter Plan of Treatment Not on file documented as of this encounter Procedures Procedure Name Priority Date/Time Associated Diagnosis Comments BLOOD ANTIBODY IDENTIFICATION Routine 11/21/2015 3:08 PM GLASS WORKER PLASMA BASIC METABOLIC PANEL Routine 11/21/2015 3:04 PM GLASS WORKER PLASMA BASIC METABOLIC PANEL Routine 11/21/2015 1:29 PM GLASS WORKER BLOOD CELL COUNT (CBC) Routine 6 1:29 PM GLASS WORKER BLOOD ACTIVATED CLOTTING TIME, LOW Routine 11/21/2015 9:52 AM GLASS WORKER BLOOD ACTIVATED CLOTTING TIME, LOW Routine 11/21/2015 8:21 AM GLASS WORKER CARDIAC CATHETERIZATION Routine 11/21/19 16 7:45 AM GLASS WORKER BLOOD CELL COUNT Routine 11/21/2015 6:17 AM GLASS WORKER BLOOD ABO, RH, INDIRECT AB SCREEN Routine 11/21/2015 6:17 AM GLASS WORKER ELECTROCARDIOGRAPHY (ECG) 11/21/2015 DISCHARGE LABORATORY CUMULATIVE REPORT 11/21/2015 documented in this encounter Results * Blood antibody identification (11/21/2015 3:08 PM GLASS WORKER) RBC ab, ID #2 Anti-V HISTOR ICAL RESULTS RBC ab, ID #1 Antibody of Undetermined Specificity HISTORICAL RESULTS Blood specimen (specimen) 11/21/2015 3:08 PM GLASS WORKER Hussain Sal MD LAB BLOOD ORDERABLES Zayra l Result HISTORICAL RESULTS * (ABNORMAL) Plasma basic metabolic panel (11/21/2015 3:04 PM GLASS WORKER) Sodium 137 135 - 145 mmol/L HISTORICAL RESULTS K, pl 3.3 3.3 - 4.9 mmol/L HISTORICAL RESULTS Chloride 104 97 - 110 mmol/L HISTORICAL RESULTS CO2 26 22 - 32 mmol/L HISTORICAL RESULTS A. gap 7 0 - 16 mmol/L HISTORICAL RESULTS Glucose 125 70 - 199 mg/dl HISTORICAL RESULTS BUN 23 8 - 25 mg/dl HISTORICAL RESULTS Creatinine 0.69(L) 0.70 - 1.30 mg/dl HISTORICAL RESULTS Calcium 9.1 8.6 - 10.3 mg/dl HISTORICAL RESULTS Plasma 11/21/2015 3:04 PM GLASS WORKER Hussain Sal MD LAB BLOOD ORDERABLES Zayra l Result Performing Organization Address [facility] de Phone Number HISTORICAL RESULTS * (ABNORMAL) Plasma basic metabolic panel (11/21/2015 1:29 PM GLASS WORKER) Sodium 138 135 - 145 mmol/L HISTORICAL RESULTS K, pl 3.2(L) 3.3 - 4.9 mmol/L HISTORICAL RESULTS Chloride 103 97 - 110 mmol/L HISTORICAL RESULTS CO2 27 22 - 32 mmol/L HISTORICAL RESULTS A. gap 8 0 - 16 mmol/L HISTORICAL RESULTS Glucose 122 70 - 199 mg/dl HISTORICAL RESULTS BUN 24 8 - 25 mg/dl HISTORICAL RESULTS Creatinine 0.71 0.70 - 1.30 mg/dl HISTORICAL RESULTS Calcium 9.3 8.6 - 10.3 mg/dl HISTORICAL RESULTS Plasma 11/21/2015 1:29 PM GLASS WORKER Hussain Sal MD LAB BLOOD ORDERABLES Zayra l Result Performing Organization Address [facility] de Phone Number HISTORICAL RESULTS * (ABNORMAL) Blood cell count (CBC) (11/21/2015 1:29 PM GLASS WORKER) WBC 4.7 3.8 - 9.8 K/cumm HISTORICAL RESULTS RBC 4.35(L) 4.50 - 5.70 M/cumm HISTORICAL RESULTS Hgb 13.9 13.8 - 17.2 g/dl HISTORICAL RESULTS Hct 40.9 40.7 - 50.3 % HISTORICAL RESULTS MCV 93.9 80.0 - 97.6 fl HISTORICAL RESULTS MCH 31.8 26.7 - 33.7 pg HISTORICAL RESULTS MCHC 33.9 32.7 - 35.5 g/dl HISTORICAL RESULTS Rdw 12.5 11.8 - 14.6 % HISTORICAL RESULTS Platelets 152 140 - 440 K/cumm HISTORICAL RESULTS MPV 10.1 6.8 - 10.4 fl HISTORICAL RESULTS Neutrophils 59.1 38.7 - 74.5 % HISTORICAL RESULTS Lymphocytes 26.1 20.0 - 54.3 % HISTORICAL RESULTS Monos 10.4 4.3 - 13.5 % HISTORICAL RESULTS Eosinophils 3.6 0.0 - 6.0 % HISTORICAL RESULTS Basophils 0.8 0.0 - 3.0 % HISTORICAL RESULTS Neutrophils, abs 2.8 1.8 - 6.6 K/cumm HISTORICAL RESULTS Lymphocytes, abs 1.2 1.2 - 3.3 K/cumm HISTORICAL RESULTS Monocytes, absolute 0.5 0.2 - 1.2 K/cumm HISTORICAL RESULTS Eosinophils, abs 0.2 0.0 - 0.5 K/cumm HISTORICAL RESULTS Basophils, abs 0.0 0.0 - 0.2 K/cumm HISTORICAL RESULTS Blood specimen (specimen) 11/21/2015 1:29 PM GLASS WORKER Result [facility] Hussain Sal MD LAB BLOOD ORDERABLES Zayra l Result Performing Organization Address [facility] de Phone Number HISTORICAL RESULTS * (ABNORMAL) Blood activated clotting time, low (11/21/2015 9:52 AM GLASS WORKER) Coagulation time, activated 386(H) 123 - 168 seconds HISTORICAL RESULTS Blood specimen (specimen) 11/21/2015 9:52 AM GLASS WORKER Result [facility] Hussain Sal MD LAB BLOOD ORDERABLES Zayra l Result Performing Organization Address [facility] Co de Phone Number HISTORICAL RESULTS * (ABNORMAL) Blood activated clotting time, low (11/21/2015 8:21 AM GLASS WORKER) Coagulation time, activated >400(H) 123 - 168 seconds HISTORICAL RESULTS Blood specimen (specimen) 11/21/2015 8:21 AM GLASS WORKER Result [facility] Hussain Sal MD LAB BLOOD ORDERABLES Zayra candy Result HISTORICAL RESULTS * Cardiac catheterization (11/21/2015 7:45 AM GLASS WORKER) Anatomical Region Laterality Modality Other 11/21/2015 7:45 AM GLASS WORKER Narrative 11/21/2015 5:01 PM GLASS WORKER Cardiovascular Procedure Center [facility] [address], [address] [place] [id number] Cardiac Catheterization Report Patient: LIAN ANDERSON : 1955 Age-Gender: 59 years- Male MR number: [id number] Study date: 11/21/2015 Height: 76 in Weight: 305.4 lb BSA: 2.65 m squared Fluoro time: 25.4 min Receptionist Airline Lounge: ??HUSSAIN SAL MD INDICATIONS: Mr. Lian Anderson is now undergoing a PCI of the circumflex and inferior ramus lesions. He is a very pleasant 59-year-old gentleman who has a history of hypertension, morbid obesity (central abdominal obesity), sedentary lifestyle, obstructive sleep apnea, on CPAP for 7-8 years, chronic leg edema and congestive heart failure on Lasix, LVEDP 22 mmHg last cath, severe osteoarthritis, dyslipidemia, atherogenic LDL particle size [...] and a large sized anterolateral defect. He then underwent cardiac catheterization on 11/04/2015 which showed complex and calcified left coronary artery disease with a hemodynamically significant LAD lesion, a severe proximal circumflex lesion and two ramus intermedius vessels with severe lesions and a GLOBAL COMPENSATION DIRECTOR of the mid superior Ramus too. We advised surgical revascularization, however patient refused. We even offerred him to discuss with CT surgery if he would reconsider, but he was quite adamant he did not wish to undergo CABG surgery. He is now being brought back for a PCI of the LCX and inferior ramus for his worsening symptoms of shortness of breath and a high risk stress test. Please note the RCA is not hemodynamically significant and is being medically managed. PROCEDURES PERFORMED: -- ??Left coronary angiography. -- ??Intervention on mid circumflex: percutaneous intervention. -- ??Intervention on ramus intermedius: percutaneous intervention. -- ??Intervention on mid LAD: percutaneous intervention. PROCEDURE: The risks, benefits and alternatives of the procedures and moderate sedation were explained to the patient and informed consent was obtained. The patient was brought to the union laborer and placed on the table. The planned puncture sites were prepped and draped in the usual sterile fashion. Cardiac catheterization performed. Coronary intervention performed. -- ??Right radial artery access. The puncture site was infiltrated with 2 % lidocaine. The vessel was accessed using the modified Seldinger technique, a wire was threaded into the vessel, and a 7Fr x 10cm GlideSheath Slender was advanced over the wire into the vessel. Heparin was given after access was obtained. Vasodilators and heparin were given after access obtained. -- ??Left coronary artery angiography. A 7F Convey LeftBU3.5 catheter was advanced to the aorta and positioned in the vessel ostia under fluoroscopic guidance. Intracoronary nitroglycerin was given in order to achieve maximal vasodilatation. LESION #1 : PCI of the proximal LCX: A successful trans radial PCI was performed on the 99 % calcified lesion in the proximal circumflex at the site of an angulated bend. We used a 7 Fr LBU CONVEY 3.5 guide, administered Bivalirudin and Ticagrelor 180 mg and wired the circumflex with a short RunThrough wire. The calcified lesion was dilated with a 2.5 x 12 mm Emerge balloon to 12 migue. IVUS was performed for vessel sizing. Based on IVUS a 2.75 x 12 mm PROMUS Premier CRISTHIAN stent was delivered in the lesion and deployed at 14 migue. It was post-dilated using a 3.0 x 8 mm NC Emerge to 18 migue. Final IVUS showed excellent stent apposition and no dissection. Following intervention there was an excellent angiographic appearance with a 0 % residual stenosis. We next turned our attention to the ostial lesion in the inferior Ramus Intermedius. -- ??A 7F Convey LeftBU3.5 guiding catheter was used to cannulate the vessel and angiography was performed in two orthogonal planes. -- ??A .014/180 Runthrough NS wire was used to cross the lesion. -- ??Balloon angioplasty was performed, using a NC Emerge RX 2.5mm x 12mm balloon, with 1 inflations and a maximum inflation pressure of 10 migue. -- ??Intravascular ultrasound was performed using a(n) Rooftop [employer] Short Tip catheter over a previously placed guidewire. -- ??A Promus Premier MR 2.75mm x 12mm drug-eluting stent was placed across the lesion and deployed at a maximum inflation pressure of 15 migue. -- ??Balloon angioplasty was performed, using a NC [employer] RX 3.0mm x 8mm balloon, with 1 inflations and a maximum inflation pressure of 10 migue. LESION #2: PCI of the inferior ramus intermedius: A successful trans radial PCI was performed on the 95% lesion in the inferior ramus intermedius, at the trifurcation of the distal left main, ostial LAD, ostial LCX and two ramus vessels. The inferior ramus was wired with a Forte moderate support wire. We retained the RunThrough in the circumflex and wired the superior ramus intermedius with a second RunThrough wire. We used a 2.5 x 12 mm Emerge to dilate the calcified ostial inferior ramus lesion to 14 to 18 migue X 3 to crack the calcium. IVUS assessment showed the calcified lesion extended to the ostium. The ostium was marked with IVUS. IVUS also showed a long diffusely diseased and calcified vessel. Based on this we chose a 2.5 x 28 mm PROMUS Premier CRISTHIAN stent and delivered it precisely at the ostium. We used a jailed balloon technique where we landed a 2.25 x 15 mm Emerge in the superior Ramus. The stent in the inferior ramus was deployed at 18 migue. Next the jailed balloon in the superior ramus was inflated to 12 migue. The stent balloon in the inferior ramus was pulled 2 mm in the left main and the stent was post-dilated to 20 migue high pressure at the calcified ostium. Next we used a second 3.0 x 20 mm NC Emerge to post-dilate the stent to 20 migue high pressure. Final IVUS showed precise deployment of the stent at the ostium of the inferior ramus and no compromise of the superior ramus, the LAD nor the LCX. There was brisk flow in the ramus and 0% residual stenosis. -- ??Balloon angioplasty was performed, using a NC Emerge RX 2.5mm x 12mm balloon, with 3 inflations and a maximum inflation pressure of 10 migue. During the procedure, a new .014/185 Straight Forte Moderate Support wire was exchanged through the catheter and advanced to the distal vessel. -- ??Intravascular ultrasound was performed using a(n) Rooftop [employer] Short Tip catheter over a previously placed guidewire. -- ??A Promus Premier MR 2.5mm x 28mm drug-eluting stent was placed across the lesion and deployed at a maximum inflation pressure of 20 migue. -- ??Balloon angioplasty was performed, using a Pubelo Shuttle Express NC RX 3.0mm x 20mm balloon, with 1 inflations and a maximum inflation pressure of 16 migue. LESION #3: Angioplasty of the superior Ramus Intermedius: As described above a jailed balloon angioplasty was performed on the lesion in the ostial superior Ramus Intermedius to protect it. Please note this vessel is a small vessel with an occluded branch and will ultimately be medically managed. -- ??Balloon angioplasty was attempted, but could not be successfully completed, using a Emerge 2.25 x 15 balloon, with 1 inflations and a maximum inflation pressure of 8 migue. During the procedure, a new .014/180 Runthrough NS wire was exchanged through the catheter and advanced to the distal vessel. COMPLICATIONS: There were no adverse outcomes. HEMOSTASIS: The sheath was removed. Hemostasis was successful using TR Band device. CONTRAST GIVEN: 200 ml Optiray 350. RESULTS: CORONARY CIRCULATION: The coronary circulation is right dominant. Mid LAD: Mid circumflex: There was a 99 % stenosis. The lesion was eccentric and calcified and in an angulated segment. ACC/AHA lesion class B1, lesion length 12 mm, ANTHONY 3 flow. Ramus intermedius: Ostial ramus intermedius: There was a 95 % stenosis at the ostium of the vessel segment. The lesion was hazy, eccentric, and calcified. ACC/AHA lesion class C, lesion length 20 mm, ANTHONY 3 flow. SUMMARY: -- ??CORONARY CIRCULATION: -- ??Mid circumflex: There was a 99 % stenosis. The lesion was eccentric and calcified and in an angulated segment. ACC/AHA lesion class B1, lesion length 12 mm, ANTHONY 3 flow. -- ??Ostial ramus intermedius: There was a 95 % stenosis at the ostium of the vessel segment. The lesion was hazy, eccentric, and calcified. ACC/AHA lesion class C, lesion length 20 mm, ANTHONY 3 flow. -- ??1ST LESION: -- ??PCI of the proximal LCX: A successful trans radial PCI was performed on the 99 % calcified lesion in the proximal circumflex at the site of an angulated bend. We used a 7 Fr LBU CONVEY 3.5 guide, administered Bivalirudin and Ticagrelor 180 mg and wired the circumflex with a short RunThrough wire. The calcified lesion was dilated with a 2.5 x 12 mm Emerge balloon to 12 migue. IVUS was performed for vessel sizing. Based on IVUS a 2.75 x 12 mm PROMUS Premier CRISTHIAN stent was delivered in the lesion and deployed at 14 migue. It was post-dilated using a 3.0 x 8 mm NC Emerge to 18 migue. Final IVUS showed excellent stent apposition and no dissection. Following intervention there was an excellent angiographic appearance with a 0 % residual stenosis. We next turned our attention to the ostial lesion in the inferior Ramus Intermedius. -- ??2ND LESION: -- ??PCI of the inferior ramus intermedius: A successful trans radial PCI was performed on the 95% lesion in the inferior ramus intermedius, at the trifurcation of the distal left main, ostial LAD, ostial LCX and two ramus vessels. The inferior ramus was wired with a Forte moderate support wire. We retained the RunThrough in the circumflex and wired the superior ramus intermedius with a second RunThrough wire. We used a 2.5 x 12 mm Emerge to dilate the calcified ostial inferior ramus lesion to 14 to 18 migue X 3 to crack the calcium. IVUS assessment showed the calcified lesion extended to the ostium. The ostium was marked with IVUS. IVUS also showed a long diffusely diseased and calcified vessel. Based on this we chose a 2.5 x 28 mm PROMUS Premier CRISTHIAN stent and delivered it precisely at the ostium. We used a jailed balloon technique where we landed a 2.25 x 15 mm Emerge in the superior Ramus. The stent in the inferior ramus was deployed at 18 migue. Next the jailed balloon in the superior ramus was inflated to 12 migue. The stent balloon in the inferior ramus was pulled 2 mm in the left main and the stent was post-dilated to 20 migue high pressure at the calcified ostium. Next we used a second 3.0 x 20 mm NC Emerge to post-dilate the stent to 20 migue high pressure. Final IVUS showed precise deployment of the stent at the ostium of the inferior ramus and no compromise of the superior ramus, the LAD nor the LCX. There was brisk flow in the ramus and 0% residual stenosis. -- ??3RD LESION: -- ??Angioplasty of the superior Ramus Intermedius: As described above a jailed balloon angioplasty was performed on the lesion in the ostial superior Ramus Intermedius to protect it. Please note this vessel is a small vessel with an occluded branch and will ultimately be medically managed. RECOMMENDATIONS: Successful PCI of a proximal LCX and an ostial inferior ramus intermedius vessel with two PROMUS Premier CRISTHIAN stents. We will continue aspirin 81 mg, Ticagrelor 90 mg BID and high dose statin. Clinic follow-up in 1-2 weeks. He still has an ostial and proximal heavily calcified LAD lesion which is hemodynamically significant. We will re-assess symptoms in clinic next week and decide revascularization. I was present during the entire procedure and personally dictated or confirmed the above report. Prepared and signed by HUSSAIN SAL MD Signed 11/21/2015 17:14:47 HEMODYNAMIC TABLES Pressures: ??Baseline Pressures: ??- HR: 80 Pressures: ??- Rhythm: Pressures: ??-- Aortic Pressure (S/D/M): 100/63/80 Outputs: ??Baseline Outputs: ??-- CALCULATIONS[age] Outputs: ??-- CALCULATIONS: Body Surface Area: 2.65 Outputs: ??-- CALCULATIONS: Height in cm: 193.00 Outputs: ??-- CALCULATIONS: Sex: Male Outputs: ??-- CALCULATIONS: Weight in k.80 Procedure Note Provider, MD Abran - 02/05/2017 Cardiovascular Procedure Center [facility] [address], [address] [place] [address] Cardiac Catheterization Report Patient: LIAN ANDERSON : 1955 Age-Gender: 59 years- Male MR number: [id number] Study date: 11/21/2015 Height: 76 in Weight: 305.4 lb BSA: 2.65 m squared Fluoro time: 25.4 min Receptionist Airline Lounge: HUSSAIN SAL MD INDICATIONS: Mr. Lian Anderson is now undergoing a PCI of the circumflexand inferior ramus lesions. He is a very pleasant 59-year-old Caucasi[place]entleman who has a history of hypertension, morbid obesity (central abdominalobesity), sedentary lifestyle, obstructive sleep apnea, on CPAP for 7-8 years,chronic leg edema and congestive heart failure on Lasix, LVEDP 22 mmHg lastcath, severe osteoarthritis, dyslipidemia, atherogenic LDL particle size of 215as well as a type B pattern, and an elevated lipoprotein (a) test done athis primary MD's office with a value of 215 (3 times the reference value of75), who had been having symptoms of chronic shortness of breath, which have recently worsened. He underwent a nuclear stress test which was high riskwith 3-[address] depression in multiple leads and a large sized anterolateraldefect. He then underwent cardiac catheterization on 11/04/2015 which showedcomplex and calcified left coronary artery disease with a hemodynamicallysignificant LAD lesion, a severe proximal circumflex lesion and two ramusintermedius vessels with severe lesions and a GLOBAL COMPENSATION DIRECTOR of the mid superior Ramus too. Weadvised surgical revascularization, however patient refused. We even offerred himto discuss with CT surgery if he would reconsider, but he was quite adamanthe did not wish to undergo CABG surgery. He is now being brought back for a PCIof the LCX and inferior ramus for his worsening symptoms of shortness of breathand a high risk stress test. Please note the RCA is not hemodynamicallysignificant and is being medically managed. PROCEDURES PERFORMED: -- Left coronary angiography. -- Intervention on mid circumflex: percutaneous intervention. -- Intervention on ramus intermedius: percutaneous intervention. -- Intervention on mid LAD: percutaneous intervention. PROCEDURE: The risks, benefits and alternatives of the procedures andmoderate sedation were explained to the patient and informed consent was obtained.The patient was brought to the union laborer and placed on the table. The planned puncture sites were prepped and draped in the usual sterile fashion.Cardiac catheterization performed. Coronary intervention performed. -- Right radial artery access. The puncture site was infiltrated with 2% lidocaine. The vessel was accessed using the modified Seldinger technique,a wire was threaded into the vessel, and a 7Fr x 10cm GlideSheath Slenderwas advanced over the wire into the vessel. Heparin was given after accesswas obtained. Vasodilators and heparin were given after access obtained. -- Left coronary artery angiography. A 7F Convey LeftBU3.5 catheter was advanced to the aorta and positioned in the vessel ostia underfluoroscopic guidance. Intracoronary nitroglycerin was given in order to achievemaximal vasodilatation. LESION #1 : PCI of the proximal LCX: A successful trans radial PCI was performed on the 99 % calcified lesion in the proximal circumflex at thesite of an angulated bend. We used a 7 Fr LBU CONVEY 3.5 guide, administered Bivalirudin and Ticagrelor 180 mg and wired the circumflex with a short RunThrough wire. The calcified lesion was dilated with a 2.5 x 12 mmEmerge balloon to 12 migue. IVUS was performed for vessel sizing. Based on IVUS a2.75 x 12 mm PROMUS Premier CRISTHIAN stent was delivered in the lesion and deployed at14 migue. It was post-dilated using a 3.0 x 8 mm NC Emerge to 18 migue. FinalIVUS showed excellent stent apposition and no dissection. Followingintervention there was an excellent angiographic appearance with a 0 % residualstenosis. We next turned our attention to the ostial lesion in the inferior Ramus Intermedius. -- A 7F Convey LeftBU3.5 guiding catheter was used to cannulate thevessel and angiography was performed in two orthogonal planes. -- A .014/180 Runthrough NS wire was used to cross the lesion. -- Balloon angioplasty was performed, using a NC Emerge RX 2.5mm x 12mm balloon, with 1 inflations and a maximum inflation pressure of 10 migue. -- Intravascular ultrasound was performed using a(n) Rooftop Down Eye PlatinumShort Tip catheter over a previously placed guidewire. -- A Promus Premier MR 2.75mm x 12mm drug-eluting stent was placed acrossthe lesion and deployed at a maximum inflation pressure of 15 migue. -- Balloon angioplasty was performed, using a NC Emerge RX 3.0mm x 8mm balloon, with 1 inflations and a maximum inflation pressure of 10 migue. LESION #2: PCI of the inferior ramus intermedius: A successful transradial PCI was performed on the 95% lesion in the inferior ramus intermedius, atthe trifurcation of the distal left main, ostial LAD, ostial LCX and tworamus vessels. The inferior ramus was wired with a Forte moderate support wire.We retained the RunThrough in the circumflex and wired the superior ramus intermedius with a second RunThrough wire. We used a 2.5 x 12 mm Emergeto dilate the calcified ostial inferior ramus lesion to 14 to 18 migue X 3 tocrack the calcium. IVUS assessment showed the calcified lesion extended to the ostium. The ostium was marked with IVUS. IVUS also showed a longdiffusely diseased and calcified vessel. Based on this we chose a 2.5 x 28 mmPROMUS Premier CRISTHIAN stent and delivered it precisely at the ostium. We used a jailed balloon technique where we landed a 2.25 x 15 mm Emerge in the superiorRamus. The stent in the inferior ramus was deployed at 18 migue. Next the jailedballoon in the superior ramus was inflated to 12 migue. The stent balloon in theinferior ramus was pulled 2 mm in the left main and the stent was post-dilated to20 migue high pressure at the calcified ostium. Next we used a second 3.0 x 20 mmNC Emerge to post-dilate the stent to 20 migue high pressure. Final IVUSshowed precise deployment of the stent at the ostium of the inferior ramus andno compromise of the superior ramus, the LAD nor the LCX. There was briskflow in the ramus and 0% residual stenosis. -- Balloon angioplasty was performed, using a NC Emerge RX 2.5mm x 12mm balloon, with 3 inflations and a maximum inflation pressure of 10 migue.During the procedure, a new .014/185 Straight Forte Moderate Support wire was exchanged through the catheter and advanced to the distal vessel. -- Intravascular ultrasound was performed using a(n) [place] PlatinumShort Tip catheter over a previously placed guidewire. -- A Promus Premier MR 2.5mm x 28mm drug-eluting stent was placed acrossthe lesion and deployed at a maximum inflation pressure of 20 migue. -- Balloon angioplasty was performed, using a Euphora NC RX 3.0mm x20mm balloon, with 1 inflations and a maximum inflation pressure of 16 migue. LESION #3: Angioplasty of the superior Ramus Intermedius: As describedabove a jailed balloon angioplasty was performed on the lesion in the ostialsuperior Ramus Intermedius to protect it. Please note this vessel is a small vesselwith an occluded branch and will ultimately be medically managed. -- Balloon angioplasty was attempted, but could not be successfullycompleted, using a Emerge 2.25 x 15 balloon, with 1 inflations and a maximuminflation pressure of 8 migue. During the procedure, a new .014/180 Runthrough NS wirewas exchanged through the catheter and advanced to the distal vessel. COMPLICATIONS: There were no adverse outcomes. HEMOSTASIS: The sheath was removed. Hemostasis was successful using TRBand device. CONTRAST GIVEN: 200 ml Optiray 350. RESULTS: CORONARY CIRCULATION: The coronary circulation is right dominant. Mid LAD: Mid circumflex: There was a 99 % stenosis. The lesion was eccentric and calcified and in an angulated segment. ACC/AHA lesion class B1, lesionlength 12 mm, ANTHONY 3 flow. Ramus intermedius: Ostial ramus intermedius: There was a 95 % stenosis at the ostium of thevessel segment. The lesion was hazy, eccentric, and calcified. ACC/AHA lesionclass C, lesion length 20 mm, ANTHONY 3 flow. SUMMARY: -- CORONARY CIRCULATION: -- Mid circumflex: There was a 99 % stenosis. The lesion was eccentricand calcified and in an angulated segment. ACC/AHA lesion class B1, lesionlength 12 mm, ANTHONY 3 flow. -- Ostial ramus intermedius: There was a 95 %stenosis at the ostium of the vessel segment. The lesion was hazy, eccentric, and calcified. ACC/AHA lesion class C, lesion length 20 mm, ANTHONY 3 flow. -- 1ST LESION: -- PCI of the proximal LCX: A successful trans radial PCI was performedon the 99 % calcified lesion in the proximal circumflex at the site of anangulated bend. We used a 7 Fr LBU CONVEY 3.5 guide, administered Bivalirudin and Ticagrelor 180 mg and wired the circumflex with a short RunThrough wire.The calcified lesion was dilated with a 2.5 x 12 mm Emerge balloon to 12 migue.IVUS was performed for vessel sizing. Based on IVUS a 2.75 x 12 mm PROMUSPremier CRISTHIAN stent was delivered in the lesion and deployed at 14 migue. It was post-dilated using a 3.0 x 8 mm NC Emerge to 18 migue. Final IVUS showed excellent stent apposition and no dissection. Following intervention therewas an excellent angiographic appearance with a 0 % residual stenosis. Wenext turned our attention to the ostial lesion in the inferior RamusIntermedius. -- 2ND LESION: -- PCI of the inferior ramus intermedius: A successful trans radial PCIwas performed on the 95% lesion in the inferior ramus intermedius, at the trifurcation of the distal left main, ostial LAD, ostial LCX and tworamus vessels. The inferior ramus was wired with a Forte moderate support wire.We retained the RunThrough in the circumflex and wired the superior ramus intermedius with a second RunThrough wire. We used a 2.5 x 12 mm Emergeto dilate the calcified ostial inferior ramus lesion to 14 to 18 migue X 3 tocrack the calcium. IVUS assessment showed the calcified lesion extended to the ostium. The ostium was marked with IVUS. IVUS also showed a longdiffusely diseased and calcified vessel. Based on this we chose a 2.5 x 28 mmPROMUS Premier CRISTHIAN stent and delivered it precisely at the ostium. We used a jailed balloon technique where we landed a 2.25 x 15 mm Emerge in the superiorRamus. The stent in the inferior ramus was deployed at 18 migue. Next the jailedballoon in the superior ramus was inflated to 12 migue. The stent balloon in theinferior ramus was pulled 2 mm in the left main and the stent was post-dilated to20 migue high pressure at the calcified ostium. Next we used a second 3.0 x 20 mmNC Emerge to post-dilate the stent to 20 migue high pressure. Final IVUSshowed precise deployment of the stent at the ostium of the inferior ramus andno compromise of the superior ramus, the LAD nor the LCX. There was briskflow in the ramus and 0% residual stenosis. -- 3RD LESION: -- Angioplasty of the superior Ramus Intermedius: As described above a jailed balloon angioplasty was performed on the lesion in the ostial superiorRamus Intermedius to protect it. Please note this vessel is a small vessel withan occluded branch and will ultimately be medically managed. RECOMMENDATIONS: Successful PCI of a proximal LCX and an ostial inferior ramusintermedius vessel with two PROMUS Premier CRISTHIAN stents. We will continue aspirin 81mg, Ticagrelor 90 mg BID and high dose statin. Clinic follow-up in 1-2 weeks.He still has an ostial and proximal heavily calcified LAD lesion which is hemodynamically significant. We will re-assess symptoms in clinic nextweek and decide revascularization. I was present during the entire procedure and personally dictated orconfirmed the above report. Prepared and signed by HUSSAIN SAL MD Signed 11/21/2015 17:14:47 HEMODYNAMIC TABLES Pressures: Baseline Pressures: - HR: 80 Pressures: - Rhythm: Pressures: -- Aortic Pressure (S/D/M): 100/63/80 Outputs: Baseline Outputs: -- CALCULATIONS[age] Outputs: -- CALCULATIONS: Body Surface Area: 2.65 Outputs: -- CALCULATIONS: Height in cm: 193.00 Outputs: -- CALCULATIONS: Sex: Male Outputs: -- CALCULATIONS: Weight in k.80 Historical Provider CV CARDIAC CATH PROCEDURE S Final Result * (ABNORMAL) Blood ABO, Rh, indirect ab screen (11/21/2015 6:17 AM GLASS WORKER) ABO, Rho(D) O Positive HISTORI QUINTIN RESULTS Eddie, indirect Positive(A) HISTORICAL RESULTS Blood specimen (specimen) 11/21/2015 6:17 AM GLASS WORKER Hussain Sal MD LAB BLOOD ORDERABLES Zayra l Result HISTORICAL RESULTS * (ABNORMAL) Blood cell count [CBC] express (11/21/2015 6:17 AM GLASS WORKER) WBC 5.2 3.8 - 9.8 K/cumm HISTORICAL RESULTS RBC 4.36(L) 4.50 - 5.70 M/cumm HISTORICAL RESULTS Hgb 13.5(L) 13.8 - 17.2 g/dl HISTORICAL RESULTS Hct 39.8(L) 40.7 - 50.3 % HISTORICAL RESULTS MCV 91.4 80.0 - 97.6 fl HISTORICAL RESULTS MCH 31.0 26.7 - 33.7 pg HISTORICAL RESULTS MCHC 33.9 32.7 - 35.5 g/dl HISTORICAL RESULTS Rdw 12.4 11.8 - 14.6 % HISTORICAL RESULTS Platelets 134(L) 140 - 440 K/cumm HISTORICAL RESULTS MPV 10.0 6.8 - 10.4 fl HISTORICAL RESULTS Blood specimen (specimen) 11/21/2015 6:17 AM GLASS WORKER Result [facility] Hussain Sal MD LAB BLOOD ORDERABLES Zayra l Result HISTORICAL RESULTS * DISCHARGE LABORATORY CUMULATIVE REPORT (11/21/2015) Narrative 11/21/2015 Ordered by an unspecified provider. [facility] Provider LAB BLOOD ORDERABLES Zayra l Result * ELECTROCARDIOGRAPHY (ECG) (11/21/2015) Narrative 11/21/2015 Ordered by an unspecified provider. Result [facility] Provider ECG ORDERABLES Final Res ult documented in this encounter Visit Diagnoses Diagnosis Atherosclerotic heart disease of [place] coronary artery without angina pectoris Coronary atherosclerosis due to calcified coronary lesion (CODE) Essential (primary) hypertension Unspecified essential hypertension Morbid (severe) obesity due to excess calories (HCC) Obstructive sleep apnea Obstructive sleep apnea (adult) (pediatric) Localized edema Edema Heart failure (HCC) Unspecified heart failure Osteoarthritis Osteoarthrosis, unspecified whether generalized or localized, unspecified site Hyperlipidemia Other and unspecified hyperlipidemia Shortness of breath Pain in joint Sleep apnea Unspecified sleep apnea senior care current use of aspirin superintendent terminal current use of antithrombotics/antiplatelets documented in this encounter
--- OUTSIDE RECORDS SUMMARY | 2024-10-05 02:54 | XMS_ITS | Encounter Summary ---
Author Organization [facility] Address [address] [place] [address] Phone Care Team Providers Care Clerical Methods Analyst Name Role Phone Gianluca Price MD Primary Care Provider Encounter Details Date Type Department Care Team (Late st Contact Info) Description 06/24/2018 Orders Only [facility] Cardiology [address] [place] [address] Hussain Mitchell MD [address] [place] [address] Social History Tobacco Use Types Packs/Day Years Used Date Smoking Tobacco: Never Smokeless Tobacco: Never Sex and Gender Information Value Date Recorded Sex Assigned at Not on file 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
--- OUTSIDE RECORDS SUMMARY | 2024-10-05 02:54 | XMS_ITS | Encounter Summary ---
Author Organization [facility] Address [address] [place] [address] Phone Care Team Providers Care Sales Stock Associate Name Role Phone Gianluca Price MD Primary Care Provider Reason for Visit * Reason Onset Date Comments Surgical Clearance 05/06/2018 Encounter Details Date Type Department Care Team (Late st Contact Info) Description 05/06/2018 Telephone 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 We'll let you know if anything else comes up. * Telephone Encounter - Hussain Mitchell MD - 05/07/2018 3:57 AM CDT Need anything else on him? * Telephone Encounter - Rosetta Godinez - 05/06/2018 1:08 PM CDT Clearance faxed * Telephone Encounter - Verenice Caldwell, SURJIT - 05/06/2018 8:39 AM CDT Please sign clearance note Rosetta-do you have this in Jeniffer's folder? It not, please request. * Telephone Encounter - Amina Cobb - 05/06/2018 8:26 AM CDT JONELLE CLEARANCE WAS FAXED OVER ON 04/28/18 cardiac clearance CALLER NAME: WACO FACILITY NAME: [facility] PHONE NUMBER: [phone] FAX NUMBER: [phone] TYPE OF SURGERY: LEFT TOTAL KNEE REPLACEMENT NAME OF SURGEON: DR.PETER MARCUS SCHEDULED FOR: 05/07/2018 MEDICATION TO BE HELD: FOR DAYS COMMENTS: documented in this encounter Plan of Treatment Not on file documented as of this encounter Visit Diagnoses Not on filedocumented in this encounter Care Teams Sales Stock Associate Relationship Specialty Start Date End Date Gianluca Price MD PCP - General 06/18/17 documented as of this encounter
--- OUTSIDE RECORDS SUMMARY | 2024-10-05 02:54 | XMS_ITS | Encounter Summary ---
Author Organization [facility] Facility Care Team Providers Care Linter Saw Sharpener Name Role Phone Unavailable Primary Care Provider Unavailabl e Encounter Details Date Type Department Care Team (Latest Contact Info) Description 02/04/2014 10:13 AM CDT - 02/04/2014 11:59 PM CDT Hospital Encounter [facility] Juan Antonio Harper MD [address] [place] [address] Postlaminectomy syndrome, lumbar region; Other postprocedural states Social History Tobacco Use Types Packs/Day Years Used Date Smoking Tobacco: Never Assessed Sex and Gender Information Value Date Recorded Sex Assigned at Not on file 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 FINDINGS: Three views of the lumbar spine are compared to previous study 12/21/2013. Bilateral transpedicle screws and mariama fixation span the level L3-L5 with laminectomy noted at L4 and laminotomies at L3 and L5. ??Posterolateral bone is stable in appearance without solid fusion at this time. ??Vertebral body alignment is stable. ??There is a trace anterolisthesis of L3 on L4. SUMMARY: 1. Stable postoperative changes in alignment. LP: [facility] Radiologist: STEFFI LATIF M.D. ?? Attending: ??JUAN ANTONIO HARPER M.D. Requesting: JUAN ANTONIO HARPER M.D. Requesting Fax: ?? Requesting ID: [id number] Attending Fax: ?? Attending ID: ?? [id number] Completed Time: ?? 02/04/2014 10:41 AM Dictated Time: ?02/04/2014 11:06 AM Transcribed Time: 02/04/2014 3:54 PM Signed by: ?STEFFI LATIF ??Rukhsana on 02/04/2014 4:42 PM Report To 1 ID: Report To 1 Name: , Report To 1 FAX: Report To 2 ID: Report To 2 Name: , Report To 2 FAX: Report To 3 ID: Report To 3 Name: , Report To 3 FAX: NextGen Order #: Procedure Note Provider, MD Abran - 02/11/2017 Three-view lumbar spine radiograph 02/04/2014 HISTORY: Follow-up surgery. FINDINGS: Three views of the lumbar spine are compared to previous study 12/21/2013. Bilateral transpedicle screws and mariama fixation span the level L3-L5 with laminectomy noted at L4 and laminotomies at L3 and L5. Posterolateral bone is stable in appearance without solid fusion at this time. Vertebral body alignment is stable. There is a trace anterolisthesis of L3 on L4. SUMMARY: 1. Stable postoperative changes in alignment. LP: [facility] Radiologist: STEFFI LATIF M.D. Attending: JUAN ANTONIO HARPER M.D. Requesting: JUAN ANTONIO HARPER M.D. Requesting Requesting ID: [id number] Attending Attending ID: [id number] Completed Time: 02/04/2014 10:41 AM Dictated Time: 02/04/2014 11:06 AM Transcribed Time: 02/04/2014 3:54 PM Signed by: STEFFI LATIF M.D. on 02/04/2014 4:42 PM Report To 1 ID: Report To 1 Name: , Report To 1 FAX: Report To 2 ID: Report To 2 Name: , Report To 2 FAX: Report To 3 ID: Report To 3 Name: , Report To 3 FAX: NextGen Order #: Historical Provider MD FRANK XR PROCEDURES Final R esult documented in this encounter Visit Diagnoses Diagnosis Postlaminectomy syndrome, lumbar region Other postprocedural states documented in this encounter
--- OUTSIDE RECORDS SUMMARY | 2024-10-05 02:54 | XMS_ITS | Encounter Summary ---
Author Organization [facility] Facility Care Team Providers Care Tipping Machine Operator Name Role Phone Unavailable Primary Care Provider Unavailabl e Encounter Details Date Type Department Care Team (Latest Contact Info) Description 07/21/2014 1:06 PM CDT - 07/21/2014 11:59 PM CDT Hospital Encounter [facility] Juan Antonio Harper MD [address] [place] [address] Postlaminectomy syndrome, lumbar region; Arthrodesis status; Degeneration of lumbar or lumbosacral intervertebral disc; Congenital spondylolisthesis Social History Tobacco Use Types Packs/Day Years Used Date Smoking Tobacco: Never Assessed Sex and Gender Information Value Date Recorded Sex Assigned at Not on file Legal Sex Male 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 Gender Identity Not on file Sexual Orientation Not on file documented as of this encounter Plan of Treatment Not on file documented as of this encounter Procedures Procedure Name Priority Date/Time Associated Diagnosis Comments XR SPINE LUMBAR 2 OR 3 VIEWS Routine 07/21/2014 1:41 PM CDT documented in this encounter Results * XR Spine Lumbar 2 or 3 Views (07/21/2014 1:41 PM CDT) Anatomical Region Laterality Modality Spine N/A Radiographic Alexandra ging 07/21/2014 1:41 PM CDT Narrative 07/23/2014 7:11 AM CDT EXAMINATION: Lumbar spine, two or three views: DATE: 07/21/2014 HISTORY: Postlaminectomy syndrome. ??722.83. FINDINGS: Frontal, lateral and coned-down lateral views of the lumbar spine are compared to a prior from 05/13/2014. ??There has been prior posterior instrumented lumbar fusion procedure from L3 through L5. ?? L4 laminectomy defect is noted. ??Subtle lucencies seen about the pedicle screws at L5 appears more pronounced than on prior studies. ?? Could not exclude loosening. ??Otherwise no interval change of the instrumentation. ??The lumbar alignment is unchanged with grade 1 anterolisthesis of L3 upon L4. ??Multilevel degenerative disc disease is present, most severe at L3-L4 and L5-S1. ??Superior endplate compression fracture at L1 is stable. IMPRESSION: 1. Posterior instrumented lumbar fusion procedure L3-L5. ??Question more pronounced lucency about the pedicle screws at L5. ??Cannot exclude loosening. 2. Unchanged alignment with grade 1 anterolisthesis L3 upon L4. 3. Unchanged moderate to severe multilevel degenerative disc disease. ?? TOBI/mvb Radiologist: LILLIE REILLY M.D. ?? Attending: ??JUAN ANTONIO HARPER M.D. Requesting: JUAN ANTONIO HARPER M.D. Requesting Fax: ?? Requesting ID: [id number] Attending Fax: ?? Attending ID: ?? [id number] Completed Time: ?? 07/21/2014 1:41 PM Dictated Time: ?07/21/2014 4:41 PM Transcribed Time: 07/22/2014 09:23 AM Signed by: ?LILLIE REILLY ??Rukhsana on 07/23/2014 07:11 AM Report To 1 ID: Report To 1 Name: , Report To 1 FAX: Report To 2 ID: Report To 2 Name: , Report To 2 FAX: Report To 3 ID: Report To 3 Name: , Report To 3 FAX: NextGen Order #: Procedure Note Provider, MD Abran - 02/11/2017 EXAMINATION: Lumbar spine, two or three views: DATE: 07/21/2014 HISTORY: Postlaminectomy syndrome. 722.83. FINDINGS: Frontal, lateral and coned-down lateral views of the lumbar spine are compared to a prior from 05/13/2014. There has been prior posterior instrumented lumbar fusion procedure from L3 through L5. L4 laminectomy defect is noted. Subtle lucencies seen about the pedicle screws at L5 appears more pronounced than on prior studies. Could not exclude loosening. Otherwise no interval change of the instrumentation. The lumbar alignment is unchanged with grade 1 anterolisthesis of L3 upon L4. Multilevel degenerative disc disease is present, most severe at L3-L4 and L5-S1. Superior endplate compression fracture at L1 is stable. IMPRESSION: 1. Posterior instrumented lumbar fusion procedure L3-L5. Question more pronounced lucency about the pedicle screws at L5. Cannot exclude loosening. 2. Unchanged alignment with grade 1 anterolisthesis L3 upon L4. 3. Unchanged moderate to severe multilevel degenerative disc disease. TOBI/mvb Radiologist: LILLIE REILLY M.D. Attending: JUAN ANTONIO HARPER M.D. Requesting: JUAN ANTONIO HARPER M.D. Requesting Requesting ID: [id number] Attending Attending ID: [id number] Completed Time: 07/21/2014 1:41 PM Dictated Time: 07/21/2014 4:41 PM Transcribed Time: 07/22/2014 09:23 AM Signed by: LILLIE REILLY M.D. on 07/23/2014 07:11 AM Report To 1 ID: Report To 1 [...] Diagnosis Postlaminectomy syndrome, lumbar region Arthrodesis status Degeneration of lumbar or lumbosacral intervertebral disc Congenital spondylolisthesis documented in this encounter
--- OUTSIDE RECORDS SUMMARY | 2024-10-05 02:54 | XMS_ITS | Encounter Summary ---
Author Organization [facility] Address [address] [place] [address] Phone Care Team Providers Care Scraper Meat Name Role Phone Gianluca Price MD Primary Care Provider Encounter Details Date Type Department Care Team (Late st Contact Info) Description 10/13/2019 Telephone [facility] Cardiology 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 Trevino's office T ACCOUNTANT * Telephone Encounter - Hussain Mitchell MD - 10/14/2019 10:04 AM ASSET ACCOUNTANT To Whom it May concern Lian Anderson may undergo the hip replacement surgery with a low and acceptable risk of periprocedural myocardial infarction. He has had stenting of his ostial LAD, ostial ramus, and ostial circumflex in the past. He underwent left knee replacement recently without any problem. We recently switched Brilinta to Plavix. He may hold his Plavix for 5 days prior to the procedure. Please continue low-dose aspirin 81 mg daily if possible. Please resume Plavix after the procedure. Please call us with questions if any. Hussain Mitchell MD T ACCOUNTANT * Telephone Encounter - Sandra Pitts BS - 10/13/2019 1:22 PM CST cardiac clearance JONELLE CALLER NAME: LIAN CA FACILITY NAME: [facility] PHONE NUMBER: [phone] FAX NUMBER: [phone] TYPE OF SURGERY: HIP REPLACEMENT NAME OF SURGEON: DR JANY TREVINO MEDICATION TO BE HELD: ? T ACCOUNTANT documented in this encounter Plan of Treatment Not on file documented as of this encounter Visit Diagnoses Not on filedocumented in this encounter Care Teams Scraper Meat Relationship Specialty Start Date End Date Gianluca Price MD PCP - General 06/18/17 documented as of this encounter
--- OUTSIDE RECORDS SUMMARY | 2024-10-05 02:54 | XMS_ITS | Encounter Summary ---
Author Organization [facility] Address [address] [place] [address] Phone Care Team Providers Care Promotional Representative Name Role Phone Gianluca Price MD Primary Care Provider Ayden Corona DO Unavailable [phone] Roberto Medley MD Unavailable [phone] Encounter Details Date Type Department Care Team (Late st Contact Info) Description 08/20/2018 Telephone [facility] Cardiology [address] [facility] [address]th [place] [address] [place] [address] Hussain Mitchell MD [address] [place] [address] Social History Tobacco Use Types Packs/Day Years Used Date Smoking Tobacco: Never Smokeless Tobacco: Never Sex and Gender Information Value Date Recorded Sex Assigned at Not on file 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 Reorder 08/06/2018 08/20/2018 documented as of this encounter Care Teams Promotional Representative Relationship Specialty Start Date End Date Gianluca Price MD PCP - General 06/18/17 Ayden Corona DO [address] [facility] [address] [place] [address] Referring Physician Surgery 10/29/22 Roberto Medley MD [id number] [place] [address] Surgeon Colon and Rectal Surgery 11/23/22 documented as of this encounter
--- OUTSIDE RECORDS SUMMARY | 2024-10-05 02:54 | XMS_ITS | Encounter Summary ---
Author Organization [facility] Address [address] [place] [address] Phone Care Team Providers Care Oleo Hasher And Renderer Name Role Phone Gianluca Price MD Primary Care Provider Encounter Details Date Type Department Care Team (Late st Contact Info) Description 05/26/2018 Telephone [facility] Cardiology [address] [facility] 8[address] [place] [address] [place] [id number] Hussain Mitchell MD [address] [place] [address] Social History Tobacco Use Types Packs/Day Years Used Date Smoking Tobacco: Never Sex and Gender Information Value Date Recorded Sex Assigned at Not on file 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 at bedtime. 90 tablet 2 05/26/2018 06/24/2018 documented in this encounter Miscellaneous Notes * Telephone Encounter - Adele Angel RN - 05/26/2018 7:05 PM CDT Received rx refill request for Niacin ER 1,000mg daily. Dr Mitchell last filled 05/2017 . Refill sent documented in this encounter Plan of Treatment Not on file documented as of this encounter Visit Diagnoses Not on filedocumented in this encounter Discontinued Medications Medication Sig Discontinue Reason Start Date End Da te niacin ER (NIASPAN) 1,000 mg CR tablet TAKE 1 TABLET AT BEDTIME. Reorder 10/20/2015 05/26/2018 documented as of this encounter Historical Medications * This list may reflect changes made after this encounter. niacin ER (NIASPAN) 1,000 mg CR tablet TAKE 1 TABLET AT BEDTIME. 10/20/2015 05/26/2018 added in this encounter Care Teams Oleo Hasher And Renderer Relationship Specialty Start Date End Date Gianluca Price MD PCP - General 06/18/17 documented as of this encounter
--- OUTSIDE RECORDS SUMMARY | 2024-10-05 02:54 | XMS_ITS | Encounter Summary ---
Author Organization [facility] Care Team Providers Care Deputy Jailer Name Role Phone Unavailable Primary Care Provider Unavailabl e Encounter Details Date Type Department Care Team (Latest Contact Info) Description 12/26/2015 6:27 AM CDT - 12/26/2015 4:00 PM T Hospital Encounter [facility] Hussain Carlin MD [address] [place] [address] Atherosclerotic heart disease of [place] coronary artery without angina pectoris; Coronary atherosclerosis due to calcified coronary lesion (CODE); Presence of coronary angioplasty implant and graft; Essential (primary) hypertension; Obesity; Obstructive sleep apnea; Localized edema; Heart failure (CMS/HCC); Osteoarthritis; Hyperlipidemia; Arthrodesis status; Family history of ischemic heart disease and other diseases of the circulatory system; senior care current use of aspirin; Other halfway (current) drug therapy Social History Tobacco Use Types Packs/Day Years Used Date Smoking Tobacco: Never Assessed Sex and Gender Information Value Date Recorded Sex Assigned at Not on file 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 Gender Identity Not on file Sexual [...] Procedure Name Priority Date/Time Associated Diagnosis Comments PLASMA BASIC METABOLIC PANEL Routine 12/26/2015 1:31 PM CDT BLOOD CELL COUNT Routine 12/26/2015 1:31 PM CDT BLOOD ACTIVATED CLOTTING TIME, LOW Routine 12/26/2015 10:15 AM CDT BLOOD ACTIVATED CLOTTING TIME, LOW Routine 12/26/2015 8:49 AM CDT CARDIAC CATHETERIZATION Routine 12/26/19 16 8:09 AM CDT BLOOD ANTIBODY IDENTIFICATION Routine 12/26/2015 8:00 AM CDT BLOOD M ANTIGEN TYPE Routine 12/26/2015 6:36 AM CDT BLOOD CELL COUNT Routine 12/26/2015 6:36 AM CDT BLOOD ABO, RH, INDIRECT AB SCREEN Routine 12/26/2015 6:36 AM CDT ELECTROCARDIOGRAPHY (ECG) 12/26/2015 DISCHARGE LABORATORY CUMULATIVE REPORT 12/26/2015 documented in this encounter Results * (ABNORMAL) Plasma basic metabolic panel (12/26/2015 1:31 PM CDT) Sodium 138 135 - 145 mmol/L HISTORICAL RESULTS K, pl 3.6 3.3 - 4.9 mmol/L HISTORICAL RESULTS Chloride 104 97 - 110 mmol/L HISTORICAL RESULTS CO2 25 22 - 32 mmol/L HISTORICAL RESULTS A. gap 9 0 - 16 mmol/L HISTORICAL RESULTS Glucose 106 70 - 199 mg/dl HISTORICAL RESULTS BUN 15 8 - 25 mg/dl HISTORICAL RESULTS Creatinine 0.65(L) 0.70 - 1.30 mg/dl HISTORICAL RESULTS Calcium 9.4 8.6 - 10.3 mg/dl HISTORICAL RESULTS Plasma 12/26/2015 1:31 PM CDT Hussain Sal MD LAB BLOOD ORDERABLES Zayra l Result Performing Organization Address [facility] Co de Phone Number HISTORICAL RESULTS * (ABNORMAL) Blood cell count [CBC] express (12/26/2015 1:31 PM CDT) WBC 5.9 3.8 - 9.8 K/cumm HISTORICAL RESULTS RBC 4.20(L) 4.50 - 5.70 M/cumm HISTORICAL RESULTS Hgb 13.5(L) 13.8 - 17.2 g/dl HISTORICAL RESULTS Hct 39.0(L) 40.7 - 50.3 % HISTORICAL RESULTS MCV 92.9 80.0 - 97.6 fl HISTORICAL RESULTS MCH 32.2 26.7 - 33.7 pg HISTORICAL RESULTS MCHC 34.7 32.7 - 35.5 g/dl HISTORICAL RESULTS Rdw 13.1 11.8 - 14.6 % HISTORICAL RESULTS Platelets 163 140 - 440 K/cumm HISTORICAL RESULTS MPV 9.1 6.8 - 10.4 fl HISTORICAL RESULTS Blood specimen (specimen) 12/26/2015 1:31 PM CDT Hussain Sal MD LAB BLOOD ORDERABLES Zayra l Result Performing Organization Address [facility] de Phone Number HISTORICAL RESULTS * (ABNORMAL) Blood activated clotting time, low (12/26/2015 10:15 AM CDT) Coagulation time, activated 369(H) 123 - 168 seconds HISTORICAL RESULTS Blood specimen (specimen) 12/26/2015 10:15 AM CDT Hussain Sal MD LAB BLOOD ORDERABLES Zayra l Result Performing Organization Address [facility] Co de Phone Number HISTORICAL RESULTS * (ABNORMAL) Blood activated clotting time, low (12/26/2015 8:49 AM CDT) Coagulation time, activated >400(H) 123 - 168 seconds HISTORICAL RESULTS Blood specimen (specimen) 12/26/2015 8:49 AM CDT Hussain Sal MD LAB BLOOD ORDERABLES Zayra gupta Result HISTORICAL RESULTS * Cardiac catheterization (12/26/2015 8:09 AM CDT) Anatomical Region Laterality Modality Other 12/26/2015 8:09 AM CDT Narrative 12/26/2015 11:40 AM CDT Cardiovascular Procedure Center [facility] [address], [address] [place] [id number] Cardiac Catheterization Report Patient: LIAN ANDERSON : 1955 Age-Gender: 59 years- Male MR number: [id number] Study date: 12/26/2015 Height: 76 in Weight: 305.4 lb BSA: 2.65 m squared Fluoro time: 32.7 min Prom Burn Off Operator: ??HUSSAIN SAL MD INDICATIONS: Mr. Lian Anderson is now undergoing a PCI of the LAD and superior Ramus, after a recent PCI of the circumflex and inferior ramus [...] chronic shortness of breath, which recently worsened. He underwent a nuclear stress [...] We advised surgical revascularization, however patient refused. Then on 11/21/2015 he underwent a PCI of the LCX and inferior ramus with two CRISTHIAN stents. At that a complex ostial LAD and proximal superior ramus was deferred given the heavy calcification and complexity. I saw him in clinic when he was still having chest pains and SOB and we decided to bring him back for a PCI. He is now undergoing a PCI of his ostial and proximal LAD and proximal superior ramus for his worsening symptoms of shortness of breath and a high risk stress test. PROCEDURES PERFORMED: -- ??Intervention on proximal LAD: drug-eluting stent. -- ??Intervention on ostial LAD: percutaneous intervention. PROCEDURE: The risks, benefits and alternatives of the procedures and moderate sedation were explained to the patient and informed consent was obtained. The patient was brought to the laborer general and placed on the table. The planned puncture sites were prepped and draped in the usual sterile fashion. Cardiac catheterization performed. Coronary intervention performed. -- ??Right radial artery access. The puncture site was infiltrated with 2 % lidocaine. The vessel was accessed using the modified Seldinger technique, a wire was threaded into the vessel, and a 6/7 Fr x 10cm Eyesquad GLIDESHEATH SLENDER was advanced over the wire into the vessel. Vasodilators and heparin were given after access obtained. LESION #1 : PCI of the SUPERIOR RAMUS: A successful trans radial PCI was performed on the heavily calcified 95 % lesion in the proximal and mid ramus intermedius. We used a 7 Fr system and a supportive 7 Fr CONVEY RBL 4.0 (Radial Back-up 4.0 ) guide, and administered Bivalirudin and Ticagrelor. The Ramus was wired with a Forte moderate and the LAD was wired with a RunThrough wire. We used a 2.25 x 15 mm Emerge balloon to dilate the lesion to 26 migue X 4. We tried to deliver IVUS but IVUS would not cross the calcified proximal angulated bend. We dilated the lesion again with the same balloon to 26 migue x 3. Then with moderate difficulty a 2.25 x 28 mm PROMUS Premier CRISTHIAN stent crossed and was deployed at high pressure of 20 migue. The stent was post-dilated using a 2.5 x 20 mm NC Emerge also to very high pressures of 26 migue. Following intervention there was an excellent angiographic appearance with a 0 % residual stenosis. We then turned our attention to the LAD. -- ??A 7F Convey RBL4 guiding catheter was used to cannulate the vessel and angiography was performed in two orthogonal planes. -- ??A .014/185 Straight Forte Moderate Support wire was used to cross the lesion. -- ??A .014/180 Runthrough NS wire was used to cross the lesion. -- ??Intravascular ultrasound was performed using a(n) Diomede Eye [place] Short Tip catheter over a previously placed guidewire. -- ??Balloon angioplasty was performed, using a NC Emerge RX 2.5mm x 20mm balloon, with 1 inflations and a maximum inflation pressure of 24 migue. -- ??Balloon angioplasty was performed, using a Chocolate 3.0 x 15 balloon, with 2 inflations and a maximum inflation pressure of 18 migue. -- ??A Promus Premier MR 3.5mm x 24mm drug-eluting stent was placed across the lesion and deployed at a maximum inflation pressure of 20 migue. -- ??Intravascular ultrasound was performed using a(n) Diomede Eye [place] Short Tip catheter over a previously placed guidewire. LESION #2: PCI of the 80 % OSTIAL and PROXIMAL LAD. Previously this was the site of abnormal FFR and IFR pullback. We first performed IVUS assessment which showed 360 degree arc of heavy calcification in the entire ostial and proximal LAD. We first tried to deliver a CHOCOLATE balloon but it would not cross this lesion. We then dilated this lesion using a 2.5 X 20 mm NC Emerge to very high pressures of 26 migue X 4. Then we were able to deliver a 3.0 x 15 mm CHOCOLATE scoring balloon and dilated the lesion to high pressures of 20 migue X 2. We then delivered a large 3.5 x 24 mm PROMUS Premier CRISTHIAN stent. We retained a 2.5 x 20 mm NC balloon in the superior ramus to protect the newly deployed ostial ramus stent. The LAD stent was deployed at the LAD ostium at 20 migue. The superior ramus balloon was next inflated to 20 migue. We then performed a kissing balloon angioplasty with the 3.5 balloon in the LAD and the 2.5 NC balloon in the superior ramus, both to 20 migue. Final IVUS showed excellent stent apposition, precise placement at the LAD ostium, and no dissections. The vy of the LAD and superior ramus was well formed. Following intervention there was an excellent angiographic appearance with a 0 % residual stenosis. -- ??A 7F Convey RBL4 guiding catheter was used to cannulate the vessel and angiography was performed in two orthogonal planes. -- ??A .014/185 Straight Forte Moderate Support wire was used to cross the lesion. -- ??Balloon angioplasty was performed, using a Emerge 2.25 x 15 balloon, with 4 inflations and a maximum inflation pressure of 18 migue. -- ??Intravascular ultrasound was performed using a(n) Diomede Eye [place] Short Tip catheter over a previously placed guidewire. -- ??Balloon angioplasty was performed, using a Emerge 2.25 x 15 balloon, with 4 inflations and a maximum inflation pressure of 20 migue. -- ??A Promus Premier MR 2.25mm x 28mm drug-eluting stent was placed across the lesion and deployed at a maximum inflation pressure of 16 migue. -- ??Balloon angioplasty was performed, using a NC Emerge RX 2.5mm x 20mm balloon, with 3 inflations and a maximum inflation pressure of 26 migue. -- ??Balloon angioplasty was performed, using a NC Emerge RX 2.5mm x 20mm balloon, with 2 inflations and a maximum inflation pressure of 20 migue. COMPLICATIONS: There were no adverse outcomes. CONTRAST GIVEN: 225 ml Optiray 350. RESULTS: CORONARY CIRCULATION: The coronary circulation is right dominant. Ostial LAD: There was a 70 % stenosis. Proximal LAD: There was a 80 % stenosis. The lesion was hazy, complex, and heavily calcified. An FFR of this lesion was previously abnormal. ACC/AHA lesion class C, lesion length 20 mm, ANTHONY 3 flow. Ramus intermedius: Proximal ramus intermedius: There was a 95 % stenosis. The lesion was irregularly contoured, hazy, complex, and calcified. ACC/AHA lesion class C, lesion length 20 mm, ANTHONY 2 flow. SUMMARY: -- ??CORONARY CIRCULATION: -- ??Ostial LAD: There was a 70 % stenosis. -- ??Proximal LAD: There was a 80 % stenosis. The lesion was hazy, complex, and heavily calcified. An FFR of this lesion was previously abnormal. ACC/AHA lesion class C, lesion length 20 mm, ANTHONY 3 flow. -- ??Proximal ramus intermedius: There was a 95 % stenosis. The lesion was irregularly contoured, hazy, complex, and calcified. ACC/AHA lesion class C, lesion length 20 mm, ANTHONY 2 flow. -- ??1ST LESION: -- ??PCI of the SUPERIOR RAMUS: A successful trans radial PCI was performed on the heavily calcified 95 % lesion in the proximal and mid ramus intermedius. We used a 7 Fr system and a supportive 7 Fr CONVEY RBL 4.0 (Radial Back-up 4.0 ) guide, and administered Bivalirudin and Ticagrelor. The Ramus was wired with a Forte moderate and the LAD was wired with a RunThrough wire. We used a 2.25 x 15 mm Emerge balloon to dilate the lesion to 26 migue X 4. We tried to deliver IVUS but IVUS would not cross the calcified proximal angulated bend. We dilated the lesion again with the same balloon to 26 migue x 3. Then with moderate difficulty a 2.25 x 28 mm PROMUS Premier CRISTHIAN stent crossed and was deployed at high pressure of 20 migue. The stent was post-dilated using a 2.5 x 20 mm NC Emerge also to very high pressures of 26 migue. Following intervention there was an excellent angiographic appearance with a 0 % residual stenosis. We then turned our attention to the LAD. -- ??2ND LESION: -- ??PCI of the 80 % OSTIAL and PROXIMAL LAD. Previously this was the site of abnormal FFR and IFR pullback. We first performed IVUS assessment which showed 360 degree arc of heavy calcification in the entire ostial and proximal LAD. We first tried to deliver a CHOCOLATE balloon but it would not cross this lesion. We then dilated this lesion using a 2.5 X 20 mm NC Emerge to very high pressures of 26 migue X 4. Then we were able to deliver a 3.0 x 15 mm CHOCOLATE scoring balloon and dilated the lesion to high pressures of 20 migue X 2. We then delivered a large 3.5 x 24 mm PROMUS Premier CRISTHIAN stent. We retained a 2.5 x 20 mm NC balloon in the superior ramus to protect the newly deployed ostial ramus stent. The LAD stent was deployed at the LAD ostium at 20 migue. The superior ramus balloon was next inflated to 20 migue. We then performed a kissing balloon angioplasty with the 3.5 balloon in the LAD and the 2.5 NC balloon in the superior ramus, both to 20 migue. Final IVUS showed excellent stent apposition, precise placement at the LAD ostium, and no dissections. The vy of the LAD and superior ramus was well formed. Following intervention there was an excellent angiographic appearance with a 0 % residual stenosis. RECOMMENDATIONS: This completes revascularization of all his left sided vessels: mid LCX, ostial and proximal inferior Ramus, ostial and proximal superior Ramus, ostial and proximal LAD at the trifurcation of the left main. He will be maximally medically managed. We are increasing his Niaspan to 1500 mg daily and continuing high dose Lipitor, aspirin 81 mg, Ticagrelor 90 mg BID. I advised cardiac rehab. I was present during the entire procedure and personally dictated or confirmed the above report. Prepared and signed by HUSSAIN SAL MD Signed 12/26/2015 11:54:12 HEMODYNAMIC TABLES Pressures: ??Baseline Pressures: ??- HR: 69 Pressures: ??- Rhythm: Pressures: ??-- Aortic Pressure (S/D/M): 121/65/84 Outputs: ??Baseline Outputs: ??-- CALCULATIONS: [age] Outputs: ??-- CALCULATIONS: Body Surface Area: 2.65 Outputs: ??-- CALCULATIONS: Height in cm: 193.00 Outputs: ??-- CALCULATIONS: Sex: Male Outputs: ??-- CALCULATIONS: Weight in k.80 Procedure Note Provider, MD Abran - 02/05/2017 Cardiovascular Procedure Center [facility] [address], [address] [place] [id number] Cardiac Catheterization Report Patient: LIAN ANDERSON : 1955 Age-Gender: 59 years- Male MR number: [id number] Study date: 12/26/2015 Height: 76 in Weight: 305.4 lb BSA: 2.65 m squared Fluoro time: 32.7 min Prom Burn Off Operator: HUSSAIN SAL MD INDICATIONS: Mr. Lian Anderson is now undergoing a PCI of the LAD and superior Ramus, after a recent PCI of the circumflex and inferior ramus lesions. He is a very pleasant 59-year-old gentleman who has a history of hypertension, obesity (central abdominal obesity), sedentary lifestyle, obstructive sleep apnea, on CPAP for 7-8 years, chronic legedema and congestive heart failure on Lasix, LVEDP 22 mmHg last cath,osteoarthritis, dyslipidemia, atherogenic LDL particle size of 215, type B pattern, andan elevated lipoprotein (a) of 215 (3 times the reference value of 75), whohad been having symptoms of chronic shortness of breath, which recentlyworsened. He underwent a nuclear stress test which was high risk with 3-[address] depression in multiple leads and a large sized anterolateral defect. Arthur underwent cardiac catheterization on 11/04/2015 which showed complex and calcified left coronary disease at the trifurcation of an ostial LAD, a superior ramus, and an inferior ramus. We tested an FFR of the LAD and RCAand he did have a hemodynamically significant LAD lesion, but not the RCA.We advised surgical revascularization, however patient refused. Then on11/21/2015 he underwent a PCI of the LCX and inferior ramus with two CRISTHIAN stents. Atthat a complex ostial LAD and proximal superior ramus was deferred given theheavy calcification and complexity. I saw him in clinic when he was stillhaving chest pains and SOB and we decided to bring him back for a PCI. He isnow undergoing a PCI of his ostial and proximal LAD and proximal superiorramus for his worsening symptoms of shortness of breath and a high risk stresstest. PROCEDURES PERFORMED: -- Intervention on proximal LAD: drug-eluting stent. -- Intervention on ostial LAD: percutaneous intervention. PROCEDURE: The risks, benefits and alternatives of the procedures andmoderate sedation were explained to the patient and informed consent was obtained.The patient was brought to the laborer general and placed on the table. The planned puncture sites were prepped and draped in the usual sterile fashion.Cardiac catheterization performed. Coronary intervention performed. -- Right radial artery access. The puncture site was infiltrated with 2% lidocaine. The vessel was accessed using the modified Seldinger technique,a wire was threaded into the vessel, and a 6/7 Fr x 10cm TerumoGLIDESHEATH SLENDER was advanced over the wire into the vessel. Vasodilators andheparin were given after access obtained. LESION #1 : PCI of the SUPERIOR RAMUS: A successful trans radial PCI was performed on the heavily calcified 95 % lesion in the proximal and midramus intermedius. We used a 7 Fr system and a supportive 7 Fr CONVEY RBL 4.0(Radial Back-up 4.0 ) guide, and administered Bivalirudin and Ticagrelor. TheRamus was wired with a Forte moderate and the LAD was wired with a RunThrough wire.We used a 2.25 x 15 mm Emerge balloon to dilate the lesion to 26 migue X 4. Wetried to deliver IVUS but IVUS would not cross the calcified proximal angulatedbend. We dilated the lesion again with the same balloon to 26 migue x 3. Thenwith moderate difficulty a 2.25 x 28 mm PROMUS Premier CRISTHIAN stent crossed andwas deployed at high pressure of 20 migue. The stent was post-dilated using a2.5 x 20 mm NC Emerge also to very high pressures of 26 migue. Followingintervention there was an excellent angiographic appearance with a 0 % residualstenosis. We then turned our attention to the LAD. -- A 7F Convey RBL4 guiding catheter was used to cannulate the vesseland angiography was performed in two orthogonal planes. -- A .014/185 Straight Forte Moderate Support wire was used to crossthe lesion. -- A .014/180 Runthrough NS wire was used to cross the lesion. -- Intravascular ultrasound was performed using a(n) Diomede Eye PlatinumShort Tip catheter over a previously placed guidewire. -- Balloon angioplasty was performed, using a NC Emerge RX 2.5mm x 20mm balloon, with 1 inflations and a maximum inflation pressure of 24 migue. -- Balloon angioplasty was performed, using a Chocolate 3.0 x 15 balloon,with 2 inflations and a maximum inflation pressure of 18 migue. -- A Promus Premier MR 3.5mm x 24mm drug-eluting stent was placed acrossthe lesion and deployed at a maximum inflation pressure of 20 migue. -- Intravascular ultrasound was performed using a(n) Diomede Eye PlatinumShort Tip catheter over a previously placed guidewire. LESION #2: PCI of the 80 % OSTIAL and PROXIMAL LAD. Previously this wasthe site of abnormal FFR and IFR pullback. We first performed IVUS assessmentwhich showed 360 degree arc of heavy calcification in the entire ostial andproximal LAD. We first tried to deliver a CHOCOLATE balloon but it would not crossthis lesion. We then dilated this lesion using a 2.5 X 20 mm NC Emerge to veryhigh pressures of 26 migue X 4. Then we were able to deliver a 3.0 x 15 mmCHOCOLATE scoring balloon and dilated the lesion to high pressures of 20 migue X 2. Jassi delivered a large 3.5 x 24 mm PROMUS Premier CRISTHIAN stent. We retained a 2.5x 20 mm NC balloon in the superior ramus to protect the newly deployed ostialramus stent. The LAD stent was deployed at the LAD ostium at 20 migue. Thesuperior ramus balloon was next inflated to 20 migue. We then performed a kissingballoon angioplasty with the 3.5 balloon in the LAD and the 2.5 NC balloon inthe superior ramus, both to 20 migue. Final IVUS showed excellent stentapposition, precise placement at the LAD ostium, and no dissections. The vy of theLAD and superior ramus was well formed. Following intervention there was an excellent angiographic appearance with a 0 % residual stenosis. -- A 7F Convey RBL4 guiding catheter was used to cannulate the vesseland angiography was performed in two orthogonal planes. -- A .014/185 Straight Forte Moderate Support wire was used to crossthe lesion. -- Balloon angioplasty was performed, using a Emerge 2.25 x 15 balloon,with 4 inflations and a maximum inflation pressure of 18 migue. -- Intravascular ultrasound was performed using a(n) Diomede Eye PlatinumShort Tip catheter over a previously placed guidewire. -- Balloon angioplasty was performed, using a Emerge 2.25 x 15 balloon,with 4 inflations and a maximum inflation pressure of 20 migue. -- A Promus Premier MR 2.25mm x 28mm drug-eluting stent was placed acrossthe lesion and deployed at a maximum inflation pressure of 16 migue. -- Balloon angioplasty was performed, using a NC Emerge RX 2.5mm x 20mm balloon, with 3 inflations and a maximum inflation pressure of 26 migue. -- Balloon angioplasty was performed, using a NC Emerge RX 2.5mm x 20mm balloon, with 2 inflations and a maximum inflation pressure of 20 migue. COMPLICATIONS: There were no adverse outcomes. CONTRAST GIVEN: 225 ml Optiray 350. RESULTS: CORONARY CIRCULATION: The coronary circulation is right dominant. Ostial LAD: There was a 70 % stenosis. Proximal LAD: There was a 80 % stenosis. The lesion was hazy, complex,and heavily calcified. An FFR of this lesion was previously abnormal.ACC/AHA lesion class C, lesion length 20 mm, ANTHONY 3 flow. Ramus intermedius: Proximal ramus intermedius: There was a 95 % stenosis. The lesion was irregularly contoured, hazy, complex, and calcified. ACC/AHA lesion classC, lesion length 20 mm, ANTHONY 2 flow. SUMMARY: -- CORONARY CIRCULATION: -- Ostial LAD: There was a 70 % stenosis. -- Proximal LAD: There was a 80 % stenosis. The lesion was hazy, complex,and heavily calcified. An FFR of this lesion was previously abnormal.ACC/AHA lesion class C, lesion length 20 mm, ANTHONY 3 flow. -- Proximal ramus intermedius: There was a 95 % stenosis. The lesion was irregularlycontoured, hazy, complex, and calcified. ACC/AHA lesion class C, lesion length 20 mm,ANTHONY 2 flow. -- 1ST LESION: -- PCI of the SUPERIOR RAMUS: A successful trans radial PCI was performedon the heavily calcified 95 % lesion in the proximal and mid ramusintermedius. We used a 7 Fr system and a supportive 7 Fr CONVEY RBL 4.0 (Radial Back-up4.0 ) guide, and administered Bivalirudin and Ticagrelor. The Ramus was wiredwith a Forte moderate and the LAD was wired with a RunThrough wire. We used a2.25 x 15 mm Emerge balloon to dilate the lesion to 26 migue X 4. We tried todeliver IVUS but IVUS would not cross the calcified proximal angulated bend. Wedilated the lesion again with the same balloon to 26 migue x 3. Then with moderate difficulty a 2.25 x 28 mm PROMUS Premier CRISTHIAN stent crossed and wasdeployed at high pressure of 20 migue. The stent was post-dilated using a 2.5 x 20 mmNC Emerge also to very high pressures of 26 migue. Following intervention therewas an excellent angiographic appearance with a 0 % residual stenosis. Jassi turned our attention to the LAD. -- 2ND LESION: -- PCI of the 80 % OSTIAL and PROXIMAL LAD. Previously this was the siteof abnormal FFR and IFR pullback. We first performed IVUS assessment whichshowed 360 degree arc of heavy calcification in the entire ostial and proximalLAD. We first tried to deliver a CHOCOLATE balloon but it would not cross thislesion. We then dilated this lesion using a 2.5 X 20 mm NC Emerge to very high pressures of 26 migue X 4. Then we were able to deliver a 3.0 x 15 mmCHOCOLATE scoring balloon and dilated the lesion to high pressures of 20 migue X 2. Jassi delivered a large 3.5 x 24 mm PROMUS Premier CRISTHIAN stent. We retained a 2.5x 20 mm NC balloon in the superior ramus to protect the newly deployed ostialramus stent. The LAD stent was deployed at the LAD ostium at 20 migue. Thesuperior ramus balloon was next inflated to 20 migue. We then performed a kissingballoon angioplasty with the 3.5 balloon in the LAD and the 2.5 NC balloon inthe superior ramus, both to 20 migue. Final IVUS showed excellent stentapposition, precise placement at the LAD ostium, and no dissections. The vy of theLAD and superior ramus was well formed. Following intervention there was an excellent angiographic appearance with a 0 % residual stenosis. RECOMMENDATIONS: This completes revascularization of all his left sided vessels: mid LCX,ostial and proximal inferior Ramus, ostial and proximal superior Ramus, ostialand proximal LAD at the trifurcation of the left main. He will be maximally medically managed. We are increasing his Niaspan to 1500 mg daily and continuing high dose Lipitor, aspirin 81 mg, Ticagrelor 90 mg BID. Iadvised cardiac rehab. I was present during the entire procedure and personally dictated orconfirmed the above report. Prepared and signed by HUSSAIN SAL MD Signed 12/26/2015 11:54:12 HEMODYNAMIC TABLES Pressures: Baseline Pressures: - HR: 69 Pressures: - Rhythm: Pressures: -- Aortic Pressure (S/D/M): 121/65/84 Outputs: Baseline Outputs: -- CALCULATIONS: [age] Outputs: -- CALCULATIONS: Body Surface Area: 2.65 Outputs: -- CALCULATIONS: Height in cm: 193.00 Outputs: -- CALCULATIONS: Sex: Male Outputs: -- CALCULATIONS: Weight in k.80 us Historical Provider CV CARDIAC CATH PROCEDURE S Final Result * Blood antibody identification (12/26/2015 8:00 AM CDT) RBC ab, ID #1 Anti-M HISTOR ICAL RESULTS Blood specimen (specimen) 12/26/2015 8:00 AM CDT Hussain Sal MD LAB BLOOD ORDERABLES Zayra l Result Performing Organization Address [facility] de Phone Number HISTORICAL RESULTS * Blood M antigen type (12/26/2015 6:36 AM CDT) RBC phenotyping, M ag Positive HISTORICAL RESULTS Blood specimen (specimen) 12/26/2015 6:36 AM CDT Hussain Sal MD LAB BLOOD ORDERABLES Zayra l Result Performing Organization Address [facility] Phone Number HISTORICAL RESULTS * (ABNORMAL) Blood ABO, Rh, indirect ab screen (12/26/2015 6:36 AM CDT) Pathologist [facility] ABO, Rho(D) O Positive HISTORI QUINTIN RESULTS Eddie, indirect Positive(A) HISTORICAL RESULTS Blood specimen (specimen) 12/26/2015 6:36 AM CDT Hussain Sal MD LAB BLOOD ORDERABLES Zayra l Result Performing Organization Address [facility] de Phone Number HISTORICAL RESULTS * (ABNORMAL) Blood cell count [CBC] express (12/26/2015 6:36 AM CDT) WBC 6.0 3.8 - 9.8 K/cumm HISTORICAL RESULTS RBC 4.21(L) 4.50 - 5.70 M/cumm HISTORICAL RESULTS Hgb 13.4(L) 13.8 - 17.2 g/dl HISTORICAL RESULTS Hct 38.8(L) 40.7 - 50.3 % HISTORICAL RESULTS MCV 92.0 80.0 - 97.6 fl HISTORICAL RESULTS MCH 31.8 26.7 - 33.7 pg HISTORICAL RESULTS MCHC 34.6 32.7 - 35.5 g/dl HISTORICAL RESULTS Rdw 13.2 11.8 - 14.6 % HISTORICAL RESULTS Platelets 157 140 - 440 K/cumm HISTORICAL RESULTS MPV 9.5 6.8 - 10.4 fl HISTORICAL RESULTS Blood specimen (specimen) 12/26/2015 6:[address] [facility] Hussain Sal MD LAB BLOOD ORDERABLES Zayra l Result HISTORICAL RESULTS * DISCHARGE LABORATORY CUMULATIVE REPORT (12/26/2015) Narrative 12/26/2015 Ordered by an unspecified provider. Historical Provider LAB BLOOD ORDERABLES Zayra l Result * ELECTROCARDIOGRAPHY (ECG) (12/26/2015) Narrative 12/26/2015 Ordered by an unspecified provider. Historical Provider ECG ORDERABLES Final Res ult documented in this encounter Visit Diagnoses Diagnosis Atherosclerotic heart disease of [place] coronary artery without angina pectoris Coronary atherosclerosis due to calcified coronary lesion (CODE) Presence of coronary angioplasty implant and graft Essential (primary) hypertension Unspecified essential hypertension Obesity Obesity, unspecified Obstructive sleep apnea Obstructive sleep apnea (adult) (pediatric) Localized edema Edema Heart failure (HCC) Unspecified heart failure Osteoarthritis Osteoarthrosis, unspecified whether generalized or localized, unspecified site Hyperlipidemia Other and unspecified hyperlipidemia Arthrodesis status Family history of ischemic heart disease and other diseases of the circulatory system 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
--- OUTSIDE RECORDS SUMMARY | 2024-10-05 02:55 | XMS_ITS | Encounter Summary ---
Author Organization [facility] Care Team Providers Care Editor Producer Name Role Phone Unavailable Primary Care Provider Unavailabl e Encounter Details Date Type Department Care Team (Latest Contact Info) Description 11/11/2013 3:53 PM SHINGLE CUTTER - 11/17/2013 4:21 PM SHINGLE CUTTER Hospital Encounter [facility] Lydia Baron MD [id number] [place] [address] Other specified rehabilitation procedure; Diverticulitis of colon; Hyposmolality and/or hyponatremia; Paralytic ileus (CMS/HCC) (HCC); Other B-complex deficiencies; Obstructive sleep apnea; Essential hypertension; Osteoarthrosis; Obesity; Pure hypercholesterolemia; Anemia; Other disorders of plasma protein metabolism; Other and unspecified hyperlipidemia; Constipation; Edema; Other malaise and fatigue; Hypopotassemia Social History Tobacco Use Types Packs/Day Years Used Date Smoking Tobacco: Never Assessed Sex and Gender Information Value Date Recorded Sex Assigned at Not on file Legal Sex Male 3:11 AM SHINGLE CUTTER Gender Identity Not on file Sexual Orientation Not on file documented as of this encounter Last Filed Vital Signs Vital Sign Reading Time Taken Comments Blood Pressure 133/75 11/11/2013 5:25 PM SHINGLE CUTTER Pulse 73 11/11/2013 5:25 PM SHINGLE CUTTER Temperature - - Respiratory Rate - - Oxygen Saturation - - Inhaled Oxygen Concentration - - Weight 151.3 kg (333 lb 7.9 oz) 11/17/2013 6:37 AM SHINGLE CUTTER Height 193 cm (6' 3.98 ) 11/14/2013 2:42 PM SHINGLE CUTTER Body Mass Index 40.61 11/14/2013 2:42 PM SHINGLE CUTTER documented in this encounter Discharge Summaries * Provider, MD Abran - 11/17/2013 12:00 AM CST Patient: LIAN ANDERSON Account: [id number] Room No: 1454-A : 1955 Admit Date: 11/11/2013 Attending: LYDIA BARON M.D. Disch. Date: 11/17/2013 Dictating: LYDIA BARON M.D. Patient Type: IP Primary Diagnosis: Need for rehabilitation, patient with lumbar spinal stenosis at L3 to L5, status post decompression and fusion by Dr Harper on November 06, 2013. Secondary Diagnoses: 1. Obstructive sleep apnea. 2. Obesity. 3. Hypertension. 4. Hyperlipidemia. 5. Osteoarthritis. 6. Constipation. 7. Ileus. 8. Anemia. 9. Edema. 10. Hyponatremia. 11. Vitamin B12 deficiency. Hospital Course: Mr Anderson was admitted to [facility] on November 11, 2013, for comprehensive inpatient rehabilitation following lumbar decompression and fusion from L3 to L5 by Dr Harper on November 06, 2013. The patient was continued on a lumbar brace. He had a bone stimulator. He was evaluated by Physical and Occupational Therapy. The patient did have postoperative ileus, which resolved during his rehabilitation stay. He was bladder continent. The patient was on Accupril and Lasix for hypertension. He was on Lipitor for hypercholesterolemia. The patient was on a CPAP for his obstructive sleep apnea. He progressed well in therapy, and by the time of discharge, he was at a modified independent to standby assistance level. Diet At Discharge: Heart-healthy. Discharge Medications (Refer to Medication Reconciliation Sheet): 1. Aspirin 325 mg 1 p.o. daily. 2. Lipitor 20 mg p.o. nightly at bedtime. 3. Vitamin B 12, 1000 mcg p.o. q.a.m. 4. Multivitamin 1 p.o. daily. 5. Colace 100 mg p.o. b.i.d. 6. Lasix 40 mg p.o. daily. 7. Reglan as needed. 8. Miralax 1 packet p.o. daily. 9. Pyridoxine 50 mg p.o. daily. 10. Accupril 40 mg p.o. daily. 11. Tylenol as needed for pain. 12. Flexeril as needed for spasms. 13. [place] as needed for severe pain. Followup at Discharge: The patient should follow up with his primary care physician and with Dr Juan Antonio Harper. Therapy at Discharge: Outpatient therapy. Rukhsana OCAMPO/flakito TD: 11/17/2013 17:36 CC: JUAN ANTONIO HARPER MD Authenticated by Lydia Baron MD On 11/18/2013 06:31:06 AM * Provider, MD Abran - 11/17/2013 12:00 AM CST Patient: LIAN ANDERSON Account: [id number] Room No: 1454-A : 1955 Admit Date: 11/11/2013 Attending: LYDIA BARON M.D. Disch. Date: 11/17/2013 Dictating: JUAN ANTONIO HARPER MD Patient Type: IP History of Present Illness: The patient is a 57-year-old gentleman admitted for elective lumbar decompression for severe neurogenic claudication due to spinal stenosis at L3-4 and L4-5. Please refer to admission note for past medical history and physical examination. Hospital Course: The patient underwent a lumbar decompression and fusion. Postoperatively, he made a good recovery from the standpoint of lumbar and leg pain but he had problems with ileus, which was addressed. Because of deconditioning, the patient was felt to be a candidate for rehabilitation services at [facility] and was subsequently transferred to the rehabilitation service. Discharge Medications (Refer to Medication Reconciliation Sheet): Disposition medications and diet will be at the discretion of the rehabilitation service. Followup Appointment: He will be seen in the office in 2 weeks and will notify immediately for fever, redness, swelling, discharge, or untoward complications. MD MARLEY BAHENA/flakito TD: 11/18/2013 16:50 Authenticated by Juan Antonio Harper MD On 11/25/2013 11:39:59 AM documented in this encounter Consult Notes * ProviderAbran MD - 11/12/2013 12:00 AM CST Patient: LIAN ANDERSON Account: [id number] Room No: 1454-A : 1955 Consult Date: 11/12/2013 Attending: LYDIA BARON M.D. Admit Date: 11/11/2013 Consult.: EVAN TIMMONS M.D. Disch. Date: Patient Type: IP REASON FOR CONSULTATION: Medical management. HISTORY OF PRESENT ILLNESS: The patient is a very pleasant 57-year-old gentleman with a history of hypertension, dyslipidemia, obesity and obstructive sleep apnea who presents for further aggressive inpatient rehabilitation. The patient was in his usual state of health until fairly recently. He has developed worsening low-back pain with radiation to his legs. He has had difficulty walking. The patient was evaluated by spinal surgery. He was found to have evidence of severe spinal stenosis at L3 through L5. The patient was cleared preoperatively and determined to be a reasonable candidate for surgical intervention. He underwent elective decompression and fusion. The patient was monitored closely postoperatively. He developed abdominal distention and abdominal pain. Further evaluation revealed evidence of a postoperative ileus. The patient was continued on supportive care. The patient did show signs of improvement, but remained quite debilitated. It was felt that he would benefit from further aggressive inpatient rehabilitation at this time. REVIEW OF SYSTEMS: The patient denies fevers or chills. He denies odynophagia or dysphagia. He denies chest pain, palpitations or acute shortness of breath. He does have sleep apnea and uses CPAP. He denies dysuria or hematuria. He has ongoing abdominal distention. He did have a bowel movement last night. He has ongoing arthralgias. He has expected postoperative back pain. He continues to have some weakness in his legs. He denies any other acute complaint at this time. ALLERGIES: No known drug allergies. CURRENT MEDICATIONS: 1. Aspirin 325 mg p.o. daily. 2. [place] 5/325 one to two tablets p.o. q.4 hours p.r.n. 3. Lipitor 20 mg p.o. daily. 4. Vitamin B12 1000 mcg p.o. daily. 5. Flexeril 10 mg p.o. q.8 hours p.r.n. 6. Colace 100 mg p.o. b.i.d. 7. Lasix 40 mg p.o. daily. 8. Hydrochlorothiazide 25 mg p.o. daily. 9. Multivitamin one tablet p.o. daily. 10. MiraLax 17 grams p.o. daily. 11. Potassium chloride 40 mg p.o. b.i.d. 12. Quinapril 40 mg p.o. daily. 13. Pyridoxine 50 mg p.o. daily. PAST MEDICAL HISTORY: Remarkable for obesity, hypertension, dyslipidemia, degenerative joint disease, spinal stenosis, obstructive sleep apnea on CPAP, chronic lower extremity edema. He is status post previous knee surgery. SOCIAL HISTORY: The patient does not use tobacco. He drinks alcohol regularly. He lives alone. FAMILY HISTORY: Noncontributory. PHYSICAL EXAMINATION: VITAL SIGNS: He is afebrile, blood pressure 124/71, pulse of 75, respiratory rate is 18, O2 saturations 95 percent on room air. GENERAL: He is awake, alert and in no acute distress. HEAD: Head exam shows normocephalic, atraumatic head. EYES: Pupils equal, round, reactive to light. Extraocular movements are intact. Sclerae are anicteric. Mucous membranes are moist without lesions. NECK: Supple with no appreciable jugular venous distention. ABDOMEN: Obese, mildly distended with normal active bowel sounds. His abdomen is nontender. There is no rebound or guarding. EXTREMITIES: Show trace to 1+ bilateral lower extremity edema. Peripheral pulses are diminished, but present. BACK: Reveals postoperative changes. NEUROLOGIC: Shows that he is alert and oriented x3. He has mildly decreased strength and sensation over his bilateral lower extremities. LABORATORY STUDIES: Show sodium 134, potassium 4, chloride 95, bicarbonate is 31, BUN is 9, creatinine is 0.8, glucose 149, calcium is 9.2. White blood cell is 9.5, hemoglobin 12.2, hematocrit is 36.1, MCV is 94, platelet count is 221,000. KUB shows distended colon and small bowel, favoring ileus. IMPRESSION: Problem No. 1: Severe spinal stenosis at L3 to L5 status post decompression and fusion. Problem No. 2: Postoperative ileus. Problem No. 3: Hypertension. Problem No. 4: Dyslipidemia. Problem No. 5: Degenerative joint disease. Problem No. 6: Obstructive sleep apnea on CPAP. Problem No. 7: Chronic lower extremity edema. Problem No. 8: Obesity. Problem No. 9: Electrolyte imbalance with hypokalemia and mild hyponatremia. PLAN: He has been admitted to [facility]. The patient will undergo a comprehensive rehabilitation program. He will require close followup with spinal surgery is arranged. His pain will be controlled. He will be continued on wound care. He will be maintained on fall precautions. He will be maintained on a bowel regimen. A followup KUB will be obtained. He will be maintained on a clear liquid diet for the time being. His diet will be advanced as tolerated. His blood pressure will be monitored very closely. He will be continued on an CATIE inhibitor and diuretic medications as tolerated. His hydrochlorothiazide will be held at this time given his electrolyte abnormalities. He will be continued on Lasix for now as tolerated. Lower extremity Doppler ultrasounds will be performed given his lower extremity edema and postoperative status. He will be maintained on an aspirin. He will receive a vitamin B12 supplement. A followup vitamin B12 level will be obtained. Recent 25-hydroxyvitamin D level which was measured at 47. Thank you for involving me in the care of this very pleasant patient. I will continue to follow along with you. EVAN TIMMONS M.D. BRENDAN/ TD: 11/12/2013 09:35 Authenticated by Evan Timmons MD On 11/17/2013 08:55:16 AM documented in this encounter Miscellaneous Notes * Admission Note - Provider, MD Abran - 11/11/2013 12:00 AM CST Patient: LIAN ANDERSON Account: [id number] Room No: 1454-A : 1955 Admit Date: 11/11/2013 Attending: LYDIA BARON M.D. Disch. Date: Dictating: LYDIA BARON M.D. Patient Type: IP PRIMARY DIAGNOSIS: Need for rehabilitation in patient status post a L3-L5 decompression with cord length instrumentation bone graft by Dr. Harper on 11/06/13. HISTORY OF PRESENT ILLNESS: A very pleasant 57-year-old right handed gentleman with a history of hypertension, hyperlipidemia, obesity and diverticulitis admitted to [facility] on 11/06/13 with progressive low back pain resistant to conservative treatment. The patient's back pain radiated into both lower extremities. It was worsened with walking even short distances. A CT of the lumbosacral spine had revealed severe spinal stenosis at L3-4 and L4-5. The patient was seen by Dr. Harper and on 11/06 underwent spinal decompression and fusion by Dr. Harper and Dr. Sanchez. The patient postoperative course was complicated by an ileus. He has had postoperative anemia. He was started on physical and occupational therapy. He has been progressive well and has now been transferred for comprehensive inpatient rehabilitation. Of note is that the patient has also been hypokalemic. He has been participating in therapy and is now being transferred for comprehensive inpatient rehabilitation. PAST MEDICAL HISTORY: 1. Obstructive sleep apnea.. 2. Hypertension. 3. Hyperlipidemia. 4. Diverticulitis. 5. Osteoarthritis. 6. Obesity. PAST SURGICAL HISTORY: 1. Arthroscopic knee surgery. 2. Left breast lumpectomy at 18 years old. ALLERGIES: No known drug allergies. CURRENT MEDICATIONS: 1. Aspirin enteric coated 325 mg p.o. q day. 2. Lipitor 20 mg p.o. q.h.s. 3. Vitamin B12 1000 mcg p.o. q day. 4. Colace 100 mg p.o. b.i.d. 5. Lasix 40 mg p.o. q day. 6. Hydrochlorothiazide 25 mg p.o. q day. 7. Multivitamins one p.o. q day. 8. MiraLAX one packet p.o. q day. 9. K-Dur 20 mg p.o. b.i.d. time two days. 10. Vitamin B6 50 mg p.o. q day. 11. Accupril 40 mg p.o. q.a.m. 12. Mylicon 80 mg q.i.d. p.r.n. 13. Flexeril as needed for spasms. SOCIAL HISTORY: The patient lives alone in a one story apartment with one step. Prior to admission he was completely independent. He was driving, he was ambulating without assistive devices. He was able to bathe standing up. 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 He was able to climb ladders without difficulty. The patient denies smoking or drinking. Currently the patient requires standby assistance for grooming, minimal assistance for bathing and dressing, minimal to moderate assistance for bed mobility, minimal assistance for transfers and a multi-contact guard assistance for ambulation. REVIEW OF SYSTEMS: The patient admits to low back pain. He admits to some lower extremity weakness. He denies any numbness. He admits to constipation. PHYSICAL EXAM: GENERAL: Reveals a very pleasant gentleman in no acute distress. VITAL SIGNS: 124/71, 75, 18, 97.1. HEENT: Normocephalic, atraumatic, sclerae white, conjunctivae clear, oropharynx clear and moist. NECK: Supple. HEART: Regular rate and rhythm. LUNGS: Essentially clear to auscultation. ABDOMEN: Bowel sounds decreased, distended, not tender. MUSCULOSKELETAL: Reveals mild ankle edema, calves were soft and nontender, range of motion was within functional limits. He has a back incision with gio in place, borders well approximated, no erythema, no drainage. NEUROLOGIC: Reveals that the patient is alert, coherent and oriented times three. He was able to follow multistep commands without difficulty. Cranial nerves examination was unremarkable. There were no obvious speech or language deficits. Strength was normal throughout with the exception of the hip flexors which were about 4- secondary to discomfort. Sensation was intact to light touch. Reflexes were hypoactive throughout. IMPRESSION/COMORBIDITIES: 1. The patient is status post L3-L5 decompressive laminectomy and fusion by Dr. Harper and Dr. Sanchez.. 2. Osteoarthritis. 3. Hypercholesterolemia. 4. Hypertension. 5. Obesity. 6. Obstructive sleep apnea. 7. Anemia. 8. Hypoalbuminemia. 9. History of diverticulitis. 10. Ileus, resolving. REHABILITATION PLAN: The patient will be evaluated by Physical Medicine and Rehabilitation board of physicians. He will be treated in a structured unit. He will be undergoing physical and occupational therapy. The goal will be to improve his overall strength, endurance, balance and ability to perform ADLs, transfers and ambulation in order for him to return home with intermittent assistance of his family at a modified independent to independent level. ESTIMATED LENGTH OF STAY: Two weeks. GOALS: MD goals for the patient to be at a modified independent to independent level. The patient's goals the same as MD goals. REHAB POTENTIAL: Excellent. BARRIERS TO DISCHARGE: 1. Pain. 2. Impaired mobility. 3. Impaired ability to perform ADLs, transfer and ambulation. 4. Step to enter home. 5. Limited family availability. 6. Ileus. 7. Hypokalemia. THERAPY INTERVENTIONS: The patient will be undergoing physical therapy ninety minutes twice a day. They will work on improving his lower extremity strength, range of motion, balance, endurance and ability to perform bed mobility transfers and ambulation. Occupational Therapy will work with the patient ninety minutes twice a day. They will work on improving his upper extremity strength, range of motion, fine motor skills, visual spacial skills and ability to perform ADLs and advance transfers. PT and OT will do family training prior to discharge. MEDICAL COMORBIDITY PLAN/RISK OF COMPLICATIONS: 1. The patient status post L3-L5 decompression and fusion by Dr. Harper and Dr. Sanchez on 11/06/13: the patient will be continued on lumbar precautions, he has a lumbosacral brace. He will be undergoing a structured therapy program. 2. Pain: Control with medications and will limit the pain medications until his ileus resolves. 3. Ileus: Resolving. The patient had results after a Fleets last night. The patient does have a history of diverticulitis. Will continue the clear liquid diet and monitor the patient symptomatically. 4. Hyperkalemia: Multifactorial in nature. Will supplement potassium and recheck in the morning. 5. Hypercholesterolemia: Will check a lipid panel. The patient will be continued on Lipitor. Will have our telemetry registered nurse follow this patient. 6. Hypertension: The patient will be continued on Lasix, hypercholesterolemia and Accupril. Will monitor and adjust medications as needed. 7. Obesity: Will have our telemetry registered nurse follow this patient, give recommendations in patient with obesity and hypoalbuminemia. 8. Osteoarthritis: The patient is off of his nonsteroidal antiinflammatory agent secondary to the recent fusion. 9. Anemia: Postoperative in nature, will monitor. 10. Obstructive sleep apnea: Tolerating CPAP at night. 11. DVT prophylaxis: On TEDS and sequential compression devices. STATEMENT OF MEDICAL NECESSITY: I have reviewed this patient's preadmission screening information. I have personally evaluated the patient. The patient is sufficiently stable to participate in the rehab program. In my professional judgment and my rehabilitation experience, Mr. Anderson meets medical necessity criteria and requires an inpatient stay to manage his needs for nursing and medical management. The patient requires supervision by a rehabilitation physician at least three times a week and requires an interdisciplinary team approach of an intensive inpatient rehabilitation program. Mr. Anderson can reasonably be expected to return to his prior living situation after the comprehensive inpatient rehabilitation program. LYDIA BARON M.D. ONOFRE/jay TD: 11/12/2013 08:41 CC: MD BEST BAHENA MD Authenticated by Lydia Baron MD On 11/17/2013 08:04:57 AM documented in this encounter Plan of Treatment Not on file documented as of this encounter Procedures Procedure Name Priority Date/Time Associated Diagnosis Comments DISCHARGE LABORATORY CUMULATIVE REPORT 11/17/2013 PLASMA BASIC METABOLIC PANEL Routine 11/15/2013 6:02 AM SHINGLE CUTTER BLOOD CELL COUNT (CBC), MORPHOLOGIC EXAM Routine 11/15/2013 6:02 AM SHINGLE CUTTER XR ABDOMEN AP 1V Routine 11/14/2013 5:22 AM SHINGLE CUTTER XR ABDOMEN AP 1V Routine 11/13/2013 5:39 AM SHINGLE CUTTER PLASMA THYROID-STIMULATING HORMONE (TSH) Routine 11/13/2013 5:09 AM SHINGLE CUTTER PLASMA LIPID PANEL Routine 11/13/2013 5: 09 AM SHINGLE CUTTER PLASMA IRON PROFILE Routine 11/13/2013 5 :09 AM SHINGLE CUTTER PLASMA FERRITIN Routine 11/13/2013 5:09 AM SHINGLE CUTTER PLASMA CYANOCOBALAMIN (VITAMIN B12) Routine 11/13/2013 5:09 AM SHINGLE CUTTER PLASMA BASIC METABOLIC PANEL Routine 11/13/2013 5:09 AM SHINGLE CUTTER BLOOD HEMOGLOBIN A1C Routine 11/13/2013 5:09 AM SHINGLE CUTTER BLOOD CELL COUNT (CBC), MORPHOLOGIC EXAM Routine 11/13/2013 5:09 AM SHINGLE CUTTER BLOOD CELL MORPHOLOGIC EXAM Routine 11/13/2013 5:09 AM SHINGLE CUTTER US GUIDED VEIN MAPPING BILATERAL COMPELTE Routine 11/12/2013 11:01 AM SHINGLE CUTTER PLASMA COMPREHENSIVE METABOLIC PANEL Routine 11/12/2013 4:24 AM SHINGLE CUTTER BLOOD CELL COUNT (CBC), MORPHOLOGIC EXAM Routine 11/12/2013 4:24 AM SHINGLE CUTTER documented in this encounter Results * DISCHARGE LABORATORY CUMULATIVE REPORT (11/17/2013) Narrative 11/17/2013 Ordered by an unspecified provider. us Historical Provider LAB BLOOD ORDERABLES Zayra gupta Result * (ABNORMAL) Blood cell count (CBC), morphologic exam (11/15/2013 6:02 AM SHINGLE CUTTER) WBC 6.1 4.5 - 11.0 K/cumm HISTORICAL RESULTS RBC 3.64(L) 4.50 - 6.20 M/cumm HISTORICAL RESULTS Hgb 11.5(L) 13.0 - 17.0 g/dl HISTORICAL RESULTS Comment:As of October 21, the hemoglobin alert value has changed from less than 7.0 g/dL to less than or equal to 6.5 g/dL, first time per admission. Hct 33.8(L) 39.0 - 52.0 % HISTORICAL RESULTS Comment:As of October 21, the hematocrit alert value has changed from less than 21% to less than or equal to 19.5%, first time per admission. MCV 92.8 80.0 - 100.0 fl HISTORICAL RESULTS MCH 31.6 27.0 - 33.0 pg HISTORICAL RESULTS MCHC 34.0 32.0 - 36.0 g/dl HISTORICAL RESULTS Rdw 13.0 11.5 - 14.5 % HISTORICAL RESULTS Platelets 270 140 - 400 K/cumm HISTORICAL RESULTS MPV 8.0 7.4 - 10.4 fl HISTORICAL RESULTS Neutrophils 64.5 42.0 - 75.0 % HISTORICAL RESULTS Lymphocytes 21.3 21.0 - 51.0 % HISTORICAL RESULTS Monos 9.8(H) 2.0 - 9.0 % HISTORICAL RESULTS Eosinophils 4.1 0.0 - 10.0 % HISTORICAL RESULTS Basophils 0.3 0.0 - 1.0 % HISTORICAL RESULTS Neutrophils, abs 3.9 1.8 - 7.7 K/cumm HISTORICAL RESULTS Lymphocytes, abs 1.3 1.0 - 4.8 K/cumm HISTORICAL RESULTS Monocytes, absolute 0.6 0.0 - 0.8 K/cumm HISTORICAL RESULTS Eosinophils, abs 0.2 0.0 - 0.5 K/cumm HISTORICAL RESULTS Basophils, abs 0.0 0.0 - 0.2 K/cumm HISTORICAL RESULTS Blood specimen (specimen) 11/15/2013 6:02 AM SHINGLE CUTTER us Evan Timmons MD LAB BLOOD ORDERABLES Final Re sult HISTORICAL RESULTS * Plasma basic metabolic panel (11/15/2013 6:02 AM SHINGLE CUTTER) Sodium 137 136 - 146 mmol/L HISTORICAL RESULTS K, pl 3.8 3.3 - 4.9 mmol/L HISTORICAL RESULTS Chloride 105 98 - 108 mmol/L HISTORICAL RESULTS CO2 25 22 - 33 mmol/L HISTORICAL RESULTS BUN 7 7 - 18 mg/dl HISTORICAL RESULTS Glucose 104 70 - 140 mg/dl HISTORICAL RESULTS Comment: Glucose is assumed to be non-fasting. ?? Fasting Glucose normal ranges are: 0 days - 2 months: ? 40 mg/dL - 100 mg/dL 2 months - 999 years: ?70 mg/dL - 99 mg/dL Creatinine 0.80 0.50 - 1.50 mg/dl HISTORICAL RESULTS eGFR >60 ml/min/1.7 3 m2 HISTORICAL RESULTS Comment: GFR Reference Range: = > 60 mL/min/1.73 m2 This result has been calculated assuming the patient is Non-. ??If the patient is , please multiply this result by 1.21. The GFR value is not recommended for medication dose adjustment for renal function, creatinine clearance values should be used. Calcium 8.9 8.5 - 10.5 mg/dl HISTORICAL RESULTS Plasma 11/15/2013 6:02 AM SHINGLE CUTTER us Evan Timmons MD LAB BLOOD ORDERABLES Final Re sult HISTORICAL RESULTS * XR Abdomen AP 1V (11/14/2013 5:22 AM SHINGLE CUTTER) Anatomical Region Laterality Modality Body N/A Radiographic Alexandra ging 11/14/2013 5:22 AM SHINGLE CUTTER Narrative 11/14/2013 9:49 AM SHINGLE CUTTER ABDOMEN SINGLE VIEW HISTORY: Assess for ileus. ?? A supine abdominal film shows a midline excision with back surgery changes. ??There is dilatation of the right colon including the cecum with gaseous distention of the transverse colon. The pattern is certainly compatible with an ileus. ??Follow-up radiographs may be necessary to evaluate the dilated right colon and ensure that it does not progress. ??Degenerative changes are noted in the bony structures. SUMMARY: 1. Abnormal radiograph with dilatation of the right colon. ??Findings compatible but not specific for ileus. ??Similar findings were noted on 11/13/2013 although the amount of colonic gas has decreased. ?? JE/carlos Radiologist: NATI BRAMBILA MD, M.D. ?? Attending: ??LYDIA BARON ?? Requesting: EVAN TIMMONS M.D. Requesting Fax: ?? Attending Fax: ?? Attending ID: ?? [id number] Completed Time: ?? 11/14/2013 05:22 AM Dictated Time: ?N/A Transcribed Time: 11/14/2013 08:49 AM Signed by: ?NATI BRAMBILA MD ??Rukhsana on 11/14/2013 09:49 AM Report To 1 ID: Report To 1 Name: , Report To 1 FAX: Report To 2 ID: Report To 2 Name: , Report To 2 FAX: Report To 3 ID: Report To 3 Name: , Report To 3 FAX: NextGen Order #: Procedure Note Provider, MD Abran - 02/11/2017 ABDOMEN SINGLE VIEW HISTORY: Assess for ileus. A supine abdominal film shows a midline excision with back surgery changes. There is dilatation of the right colon including the cecum with gaseous distention of the transverse colon. The pattern is certainly compatible with an ileus. Follow-up radiographs may be necessary to evaluate the dilated right colon and ensure that it does not progress. Degenerative changes are noted in the bony structures. SUMMARY: 1. Abnormal radiograph with dilatation of the right colon. Findings compatible but not specific for ileus. Similar findings were noted on 11/13/2013 although the amount of colonic gas has decreased. JE/pab Radiologist: NATI BRAMBILA MD, M.D. Attending: LYDIA BARON Requesting: EVAN TIMMONS M.D. Requesting Attending Attending ID: [id number] Completed Time: 11/14/2013 05:22 AM Dictated Time: N/A Transcribed Time: 11/14/2013 08:49 AM Signed by: NATI BRAMBILA MD, M.D. on 11/14/2013 09:49 AM Report To 1 ID: Report To 1 Name: , Report To 1 FAX: Report To 2 ID: Report To 2 Name: , Report To 2 FAX: Report To 3 ID: Report To 3 Name: , Report To 3 FAX: NextGen Order #: Historical Provider IMG XR PROCEDURES Final R esult * XR Abdomen AP 1V (11/13/2013 5:39 AM SHINGLE CUTTER) Anatomical Region Laterality Modality Body N/A Radiographic Alexandra ging 11/13/2013 5:39 AM SHINGLE CUTTER Narrative 11/13/2013 8:13 AM SHINGLE CUTTER Supine abdominal radiograph: CLINICAL HISTORY: Ileus. FINDINGS: Comparison is with obstructive series dated 11/10/2013. ?? Midline surgical skin gio are identified. ??The patient is status post posterior spinal fusion procedure in the lumbar spine. ??There is moderate generalized large and small bowel gaseous distention. ??This may reflect ileus in the appropriate clinical setting. ??Overall, there has been no significant interval change compared with the patient's prior study. IMPRESSION: 1. Stable abnormal bowel gas pattern with an appearance that favors ileus and continued follow-up is recommended. CT/mvb Radiologist: ANTON STROUD ??Cecelia. ?? Attending: ??LYDIA BARON ?? Requesting: EVAN TIMMONS M.D. Requesting Fax: ?? Attending Fax: ?? Attending ID: ?? [id number] Completed Time: ?? 11/13/2013 05:39 AM Dictated Time: ?11/13/2013 07:30 AM Transcribed Time: 11/13/2013 08:09 AM Signed by: ?ANTON STROUD ?? MJulia on 11/13/2013 08:13 AM Report To 1 ID: Report To 1 Name: , Report To 1 FAX: Report To 2 ID: Report To 2 Name: , Report To 2 FAX: Report To 3 ID: Report To 3 Name: , Report To 3 FAX: NextGen Order #: Procedure Note Provider, MD Abran - 02/11/2017 Supine abdominal radiograph: CLINICAL HISTORY: Ileus. FINDINGS: Comparison is with obstructive series dated 11/10/2013. Midline surgical skin gio are identified. The patient is status post posterior spinal fusion procedure in the lumbar spine. There is moderate generalized large and small bowel gaseous distention. This may reflect ileus in the appropriate clinical setting. Overall, there has been no significant interval change compared with the patient's prior study. IMPRESSION: 1. Stable abnormal bowel gas pattern with an appearance that favors ileus and continued follow-up is recommended. CT/mvb Radiologist: ANTON STROUD M.D. Attending: LYDIA BARON Requesting: EVAN TIMMONS M.D. Requesting Attending Attending ID: [id number] Completed Time: 11/13/2013 05:39 AM Dictated Time: 11/13/2013 07:30 AM Transcribed Time: 11/13/2013 08:09 AM Signed by: ANTON STROUD M.D. on 11/13/2013 08:13 AM Report To 1 ID: Report To 1 Name: , Report To 1 FAX: Report To 2 ID: Report To 2 Name: , Report To 2 FAX: Report To 3 ID: Report To 3 Name: , Report To 3 FAX: NextGen Order #: us Historical Provider IMG XR PROCEDURES Final R esult * (ABNORMAL) Blood cell morphologic exam (11/13/2013 5:09 AM SHINGLE CUTTER) Pathologist [facility] Neutrophils 61 42 - 75 % HISTORICAL RESULTS Lymphocytes 10(L) 21 - 51 % HISTORICAL RESULTS Monos 8 2 - 9 % HISTORICAL RESULTS Eosinophils 7 0 - 10 % HISTORIC AL RESULTS Atypical lymphs 14(H) 0 - 5 % HIST ORICAL RESULTS Platelet morphology Large platelets present HISTORICAL RESULTS Platelet estimate Preliminary results verified HISTORICAL RESULTS Anisocytosis Moderate HISTORI QUINTIN RESULTS Macrocytosis Moderate HISTORI QUINTIN RESULTS Blood specimen (specimen) 11/13/2013 5:09 AM SHINGLE CUTTER Lydia Baron MD LAB BLOOD ORDERABLES Final Re sult HISTORICAL RESULTS * (ABNORMAL) Blood cell count (CBC), morphologic exam (11/13/2013 5:09 AM SHINGLE CUTTER) WBC 6.1 4.5 - 11.0 K/cumm HISTORICAL RESULTS RBC 3.67(L) 4.50 - 6.20 M/cumm HISTORICAL RESULTS Hgb 11.6(L) 13.0 - 17.0 g/dl HISTORICAL RESULTS Comment:As of October 21, the hemoglobin alert value has changed from less than 7.0 g/dL to less than or equal to 6.5 g/dL, first time per admission. Hct 34.1(L) 39.0 - 52.0 % HISTORICAL RESULTS Comment:As of October 21, the hematocrit alert value has changed from less than 21% to less than or equal to 19.5%, first time per admission. MCV 92.8 80.0 - 100.0 fl HISTORICAL RESULTS MCH 31.7 27.0 - 33.0 pg HISTORICAL RESULTS MCHC 34.1 32.0 - 36.0 g/dl HISTORICAL RESULTS Rdw 13.0 11.5 - 14.5 % HISTORICAL RESULTS Platelets 253 140 - 400 K/cumm HISTORICAL RESULTS MPV 8.8 7.4 - 10.4 fl HISTORICAL RESULTS Blood specimen (specimen) 11/13/2013 5:09 AM SHINGLE CUTTER Lydia Baron MD LAB BLOOD ORDERABLES Final Re sult Performing Organization Address [facility] Co de Phone Number HISTORICAL RESULTS * Blood hemoglobin A1C (11/13/2013 5:09 AM SHINGLE CUTTER) Glycated hemoglobin 5.0 4.0 - 6.0 % HISTORICAL RESULTS Blood specimen (specimen) 11/13/2013 5:09 AM SHINGLE CUTTER Lydia Baron MD LAB BLOOD ORDERABLES Final Re sult Performing Organization Address [facility] de Phone Number HISTORICAL RESULTS * (ABNORMAL) Plasma basic metabolic panel (11/13/2013 5:09 AM SHINGLE CUTTER) Sodium 135(L) 136 - 146 mmol/L HISTORICAL RESULTS K, pl 3.4 3.3 - 4.9 mmol/L HISTORICAL RESULTS Chloride 99 98 - 108 mmol/L HISTORICAL RESULTS CO2 28 22 - 33 mmol/L HISTORICAL RESULTS BUN 9 7 - 18 mg/dl HISTORICAL RESULTS Glucose 107 70 - 140 mg/dl HISTORICAL RESULTS Comment: Glucose is assumed to be non-fasting. ?? Fasting Glucose normal ranges are: 0 days - 2 months: ? 40 mg/dL - 100 mg/dL 2 months - 999 years: ?70 mg/dL - 99 mg/dL Creatinine 0.87 0.50 - 1.50 mg/dl HISTORICAL RESULTS eGFR >60 ml/min/1.7 3 m2 HISTORICAL RESULTS Comment: GFR Reference Range: = > 60 mL/min/1.73 m2 This result has been calculated assuming the patient is Non-. ??If the patient is , please multiply this result by 1.21. The GFR value is not recommended for medication dose adjustment for renal function, creatinine clearance values should be used. Calcium 8.8 8.5 - 10.5 mg/dl HISTORICAL RESULTS Plasma 11/13/2013 5:09 AM SHINGLE CUTTER Result [facility] Lydia Baron MD LAB BLOOD ORDERABLES Final Re sult Performing Organization Address [facility] Phone Number HISTORICAL RESULTS * Plasma ferritin (11/13/2013 5:09 AM SHINGLE CUTTER) Ferritin 317.0 24.0 - 336.0 ng/ml HISTORICAL RESULTS Plasma 11/13/2013 5:09 AM SHINGLE CUTTER Result [facility] Historical Provider LAB BLOOD ORDERABLES Zayra l Result Performing Organization Address [facility] Phone Number HISTORICAL RESULTS * (ABNORMAL) Plasma cyanocobalamin (vitamin B12) (11/13/2013 5:09 AM SHINGLE CUTTER) Pathologist [facility] Cyanocobalamin (Vit B12) 3163(H) 180 - 999 pg/ml HISTORICAL RESULTS Plasma 11/13/2013 5:09 AM SHINGLE CUTTER Result [facility] Lydia Baron MD LAB BLOOD ORDERABLES Final Re sult Performing Organization Address [facility] Phone Number HISTORICAL RESULTS * (ABNORMAL) Plasma iron profile (11/13/2013 5:09 AM SHINGLE CUTTER) Iron 42(L) 45 - 182 mcg/dl HISTORICAL RESULTS TIBC 232(L) 250 - 450 mcg/dl HISTORICAL RESULTS Transferrin 166(L) 215 - 365 mg/dl HISTORICAL RESULTS Iron saturation 18(L) 20 - 55 % HIST ORICAL RESULTS Plasma 11/13/2013 5:09 AM SHINGLE CUTTER Result [facility] Historical Provider LAB BLOOD ORDERABLES Zayra l Result Performing Organization Address [facility] Co de Phone Number HISTORICAL RESULTS * (ABNORMAL) Plasma lipid panel (11/13/2013 5:09 AM SHINGLE CUTTER) Cholesterol 115(L) 140 - 199 mg/dl HISTORICAL RESULTS Triglycerides 98 20 - 150 mg/dl HISTORICAL RESULTS HDL 32(L) 40 - 60 mg/dl HISTORICAL RESULTS LDL 63(L) 65 - 100 mg/dl HISTORICAL RESULTS Comment: Desirable ?Borderline ? High CHOL ?< 200 ? 200 - 239 ?>= 240 mg/dL TRIG ? < 150 ? 150 - 199 ?>= 200 mg/dL HDL ? > ??60 ?40 - ??60 ?<= 40 mg/dL LDL ? < 100 ?130 - 159 ? >= 160 mg/dL Risk Assessment interpretation based on the April 2001 NCEP ATPIII guideline. Chol/HDL ratio 3.6 0.0 - 4.9 HISTO RICAL RESULTS Comment:Effective Saturday, Pablo pril 2011, [facility] Laboratory will begin reporting the Total Cholesterol/HDL Ratio Plasma 11/13/2013 5:09 AM SHINGLE CUTTER us Lydia Baron MD LAB BLOOD ORDERABLES Final Re sult HISTORICAL RESULTS * Plasma thyroid-stimulating hormone (TSH) (11/13/2013 5:09 AM SHINGLE CUTTER) TSH 1.98 0.34 - 5.60 mcIUnits/m l HISTORICAL RESULTS Comment: TSH Interpretive Guide: : ??TSH surges within the first 15 to 60 minutes of life reaching peak levels at about 30 minutes. ??Values then decline rapidly and after 1 week are within the Adult Normal Range . Adult: Hyperthyroid ?< ?? 0.1 ?mcIUnits/mL Euthyroid ?0.34 ??- ??5.60 ? mcIUnits/mL Hypothyroid ? > 12.0 ? mcIUnits/mL Plasma 11/13/2013 5:09 AM SHINGLE CUTTER us Lydia Baron MD LAB BLOOD ORDERABLES Final Re sult HISTORICAL RESULTS * US Guided Vein Mapping Bilateral Complete (11/12/2013 11:01 AM SHINGLE CUTTER) Anatomical Region Laterality Modality Body Bilateral Ultrasound 11/12/2013 11:0 1 AM SHINGLE CUTTER Narrative 11/13/2013 5:54 PM [facility] C[facility]TER VASCULAR LABORATORY REPORT TYPE OF STUDY: Bilateral lower extremity venous duplex scan INDICATION FOR STUDY: Leg swelling. Rule out DVT. RIGHT SIDE: ?? Image quality: Good. FILLING DEFECTS: ??There is no evidence of filling defects in the veins of the extremity. COMPRESSIBILITY: Compressibility is maintained. DOPPLER EVALUATION: Flow can be augmented and responds to respirations. REFLUX FLOW: ??No reflux is noted at any level. LEFT SIDE: ?? Image quality: Good. FILLING DEFECTS: There is no evidence of filling defects in the deep veins of the extremity. COMPRESSIBILITY: Compressibility is maintained. DOPPLER EVALUATION: Flow can be augmented and responds to respirations. REFLUX FLOW: No reflux is noted at any level. IMPRESSION: 1. This study does not demonstrate evidence of deep vein thrombosis in the right or left lower extremity. BA/tab Radiologist: LOUISE WHITTEN M.D. ?? Attending: ??LYDIA BARON ?? Requesting: EVAN TIMMONS M.D. Requesting Fax: ?? Attending Fax: ?? Attending ID: ?? [id number] Completed Time: ?? 11/12/2013 11:01 AM Dictated Time: ?11/12/2013 5:09 PM Transcribed Time: 11/12/2013 6:29 PM Signed by: ?LOUISE WHITTEN on 11/13/2013 5:54 PM Report To 1 ID: Report To 1 Name: , Report To 1 FAX: Report To 2 ID: Report To 2 Name: , Report To 2 FAX: Report To 3 ID: Report To 3 Name: , Report To 3 FAX: NextGen Order #: Procedure Note Provider, MD Abran - 02/11/2017 VASCULAR LABORATORY REPORT TYPE OF STUDY: Bilateral lower extremity venous duplex scan INDICATION FOR STUDY: Leg swelling. Rule out DVT. RIGHT SIDE: Image quality: Good. FILLING DEFECTS: There is no evidence of filling defects in the veins of the extremity. COMPRESSIBILITY: Compressibility is maintained. DOPPLER EVALUATION: Flow can be augmented and responds to respirations. REFLUX FLOW: No reflux is noted at any level. LEFT SIDE: Image quality: Good. FILLING DEFECTS: There is no evidence of filling defects in the deep veins of the extremity. COMPRESSIBILITY: Compressibility is maintained. DOPPLER EVALUATION: Flow can be augmented and responds to respirations. REFLUX FLOW: No reflux is noted at any level. IMPRESSION: 1. This study does not demonstrate evidence of deep vein thrombosis in the right or left lower extremity. BA/tab Radiologist: LOUISE WHITTEN M.D. Attending: LYDIA BARON Requesting: EVAN TIMMONS M.D. Requesting Attending Attending ID: [id number] Completed Time: 11/12/2013 11:01 AM Dictated Time: 11/12/2013 5:09 PM Transcribed Time: 11/12/2013 6:29 PM Signed by: LOUISE WHITTEN M.D. on 11/13/2013 5:54 PM Report To 1 ID: Report To 1 Name: , Report To 1 FAX: Report To 2 ID: Report To 2 Name: , Report To 2 FAX: Report To 3 ID: Report To 3 Name: , Report To 3 FAX: NextGen Order #: us Historical Provider IMMariano US PROCEDURES Final R esult * (ABNORMAL) Blood cell count (CBC), morphologic exam (11/12/2013 4:24 AM SHINGLE CUTTER) WBC 7.1 4.5 - 11.0 K/cumm HISTORICAL RESULTS RBC 3.60(L) 4.50 - 6.20 M/cumm HISTORICAL RESULTS Hgb 11.4(L) 13.0 - 17.0 g/dl HISTORICAL RESULTS Hct 33.9(L) 39.0 - 52.0 % HISTORICAL RESULTS MCV 94.2 80.0 - 100.0 fl HISTORICAL RESULTS MCH 31.8 27.0 - 33.0 pg HISTORICAL RESULTS MCHC 33.7 32.0 - 36.0 g/dl HISTORICAL RESULTS Rdw 12.9 11.5 - 14.5 % HISTORICAL RESULTS Platelets 233 140 - 400 K/cumm HISTORICAL RESULTS MPV 8.7 7.4 - 10.4 fl HISTORICAL RESULTS Neutrophils 67.3 42.0 - 75.0 % HISTORICAL RESULTS Lymphocytes 16.4(L) 21.0 - 51.0 % HISTORICAL RESULTS Monos 13.0(H) 2.0 - 9.0 % HISTORICAL RESULTS Eosinophils 2.7 0.0 - 10.0 % HISTORICAL RESULTS Basophils 0.6 0.0 - 1.0 % HISTORICAL RESULTS Neutrophils, abs 4.8 1.8 - 7.7 K/cumm HISTORICAL RESULTS Lymphocytes, abs 1.2 1.0 - 4.8 K/cumm HISTORICAL RESULTS Monocytes, absolute 0.9(H) 0.0 - 0.8 K/cumm HISTORICAL RESULTS Eosinophils, abs 0.2 0.0 - 0.5 K/cumm HISTORICAL RESULTS Basophils, abs 0.0 0.0 - 0.2 K/cumm HISTORICAL RESULTS Blood specimen (specimen) 11/12/2013 4:24 AM SHINGLE CUTTER us Lydia Baron MD LAB BLOOD ORDERABLES Final Re sult HISTORICAL RESULTS * (ABNORMAL) Plasma comprehensive metabolic panel (11/12/2013 4:24 AM SHINGLE CUTTER) Sodium 136 136 - 146 mmol/L HISTORICAL RESULTS K, pl 2.9(L) 3.3 - 4.9 mmol/L HISTORICAL RESULTS Chloride 97(L) 98 - 108 mmol/L HISTORICAL RESULTS CO2 30 22 - 33 mmol/L HISTORICAL RESULTS BUN 10 7 - 18 mg/dl HISTORICAL RESULTS Glucose 115 70 - 140 mg/dl HISTORICAL RESULTS Comment: Glucose is assumed to be non-fasting. ?? Fasting Glucose normal ranges are: 0 days - 2 months: ? 40 mg/dL - 100 mg/dL 2 months - 999 years: ?70 mg/dL - 99 mg/dL Creatinine 0.80 0.50 - 1.50 mg/dl HISTORICAL RESULTS eGFR >60 ml/min/1.7 3 m2 HISTORICAL RESULTS Comment: GFR Reference Range: = > 60 mL/min/1.73 m2 This result has been calculated assuming the patient is Non-. ??If the patient is , please multiply this result by 1.21. The GFR value is not recommended for medication dose adjustment for renal function, creatinine clearance values should be used. Calcium 8.8 8.5 - 10.5 mg/dl HISTORICAL RESULTS Bilirubin 0.9 0.1 - 1.2 mg/dl HISTORICAL RESULTS Protein, pl 5.9(L) 6.0 - 8.5 g/dl HISTORICAL RESULTS Alb 3.0(L) 3.4 - 5.0 g/dl HISTORICAL RESULTS Alk phos 56 38 - 126 IUnits/L HISTORICAL RESULTS ALT 45 17 - 63 IUnits/L HISTORICAL RESULTS AST 36 15 - 41 IUnits/L HISTORICAL RESULTS Plasma 11/12/2013 4:24 AM SHINGLE CUTTER us Lydia Baron MD LAB BLOOD ORDERABLES Final Re sult HISTORICAL RESULTS documented in this encounter Visit Diagnoses Diagnosis Other specified rehabilitation procedure Diverticulitis of colon Diverticulitis of colon (without mention of hemorrhage) Hyposmolality and/or hyponatremia Paralytic ileus (CMS/HCC) (HCC) Paralytic ileus Other B-complex deficiencies Obstructive sleep apnea Obstructive sleep apnea (adult) (pediatric) Essential hypertension Unspecified essential hypertension Osteoarthrosis Osteoarthrosis, unspecified whether generalized or localized, unspecified site Obesity Obesity, unspecified Pure hypercholesterolemia Anemia Unspecified anemia Other disorders of plasma protein metabolism Other and unspecified hyperlipidemia Constipation Unspecified constipation Edema Other malaise and fatigue Hypopotassemia documented in this encounter
--- OUTSIDE RECORDS SUMMARY | 2024-10-05 02:55 | XMS_ITS | Encounter Summary ---
Author Organization [facility] Facility Care Team Providers Care Horologist Apprentice Name Role Phone Unavailable Primary Care Provider Unavailabl e Encounter Details Date Type Department Care Team (Latest Contact Info) Description 11/06/2013 5:53 AM BOILER COVERER - 11/11/2013 3:40 PM BOILER COVERER Hospital Encounter [facility] Juan Antonio Harper MD [address] [place] [id number] Spinal stenosis of lumbar region with neurogenic claudication; Paralytic ileus (CMS/HCC) (HCC); Body mass index (BMI) of 40.0-44.9 in adult (HCC); Essential hypertension; Pure hypercholesterolemia ; Arthropathy; Sleep apnea; Obesity; History of other diseases of digestive system; Family history of ischemic heart disease Social History Tobacco Use Types Packs/Day Years Used Date Smoking Tobacco: Never Assessed Sex and Gender Information Value Date Recorded Sex Assigned at Not on file Legal Sex Male 3:11 AM BOILER COVERER Gender Identity Not on file Sexual Orientation Not on file documented as of this encounter Last Filed Vital Signs Vital Sign Reading Time Taken Comments Blood Pressure 126/78 11/11/2013 12:00 PM BOILER COVERER Pulse 77 11/11/2013 12:00 PM BOILER COVERER Temperature - - Respiratory Rate - - Oxygen Saturation - - Inhaled Oxygen Concentration - - Weight 152 kg (334 lb 15.9 oz) 11/09/2013 7:55 A M BOILER COVERER Height 193 cm (6' 3.98 ) 11/09/2013 7:55 AM BOILER COVERER Body Mass Index 40.79 11/09/2013 7:55 AM BOILER COVERER documented in this encounter Discharge Summaries * ProviderAbran MD - 11/11/2013 12:00 AM CST Patient: LIAN ANDERSON Account: [id number] Room No: 1408-A : 1955 Admit Date: 11/06/2013 Attending: JUAN ANTONIO HARPER MD Disch. Date: 11/11/2013 Dictating: JUAN ANTONIO HARPER MD Patient Type: IP History of Present Illness: The patient is a 57-year-old gentleman with severe spinal stenosis at L3-4 and L4-5 with resultant neurogenic claudication. He was admitted for elective decompression and fusion. Please refer to admission note for past medical history and physical examination. Hospital Course: The patient underwent a lumbar decompression and fusion. Postoperatively, he did very well. At the time of discharge, incisions were clean and dry. He was fully ambulatory. He was instructed on appropriate activity restrictions. Because of issues with ileus and significant preoperative deconditioning, he will be transferred to the rehabilitation service of Dr Sagastume at [facility]. Medication and activity will be at the discretion of the rehabilitation service. Discharge Medications (Refer to Medication Reconciliation Sheet): JUAN ANTONIO HARPER MD DK/mt TD: 11/25/2013 13:35 Authenticated by Juan Antonio Harper MD On 11/27/2013 02:00:05 PM documented in this encounter Consult Notes * ProviderAbran MD - 11/10/2013 12:00 AM CST Patient: LIAN ANDERSON Account: [id number] Room No: 1408-A : 1955 Consult Date: 11/10/2013 Attending: JUAN ANTONIO HARPER MD Admit Date: 11/06/2013 Consult.: DERIAN GIFFORD M.D. Disch. Date: Patient Type: IP MEDICINE SERVICE CONSULTATION Primary Care Physician: Referring Physician: Dr Juan Antonio Harper. Reason for Consultation: Advice regarding the patient's abdominal pain and bloating. History of Present Illness: This is a 57-year-old man somewhat obese, who underwent a left lumbar fusion on November 06, 2013. The patient did well initially, but the following day he had some postprandial abdominal pain and bloating. The patient has been given a variety of stool softeners and laxatives in an attempt to get him to have a successful bowel movement. However the patient finds that every time he eats something, he gets more abdominal pain and more bloating. Today an x-ray was done that documents dilated loops of colon. The consultation was requested for advice regarding the best way to manage him. The patient admits to having a similar episode 5 a 6 years ago when he was treated for diverticulitis at an outside hospital. The episode at that time was not as severe. Past Medical History: Significant for obesity, hypercholesterolemia, and hypertension. Medications: Prior to admission: 1. Accupril 40 mg daily. 2. Celebrex at an unknown dose, off since October 21, 2013. 3. Lipitor 20 mg p.o. daily. Past Medical History: Includes arthroscopic surgery on the right knee. Past Illnesses: Include a bout of diverticulitis 5 or 6 years ago. Social History: He does not smoke. He drinks rarely. He lives alone. He runs a [employer] and [employer]. Family History: His father at 59 of an [facility]. Mother at 77 of leukemia. There are 5 brothers and sisters. One brother at age 42 of an [facility]. Review of Systems: There has been no weight loss. No change in vision or hearing. No difficulty swallowing. No chest pain, PND, or orthopnea. No change in bowel habits other than as listed above. No dysuria or frequency. Occasional joint pains. He denies diabetes. He denies depression. He denies any rashes or easy bruisability. Physical Examination: Vital Signs: Temperature 97.9, pulse 89 and regular, blood pressure 135/81. General: He is a pleasant but obese 325 pounds male in no acute distress. HEENT: Extraocular movements are intact. Oral cavity is unremarkable. Neck: Carotids show no bruits. There is no lymphadenopathy. Lungs: Clear Cardiac: Normal S1, S2 without murmurs, rubs, or gallops. Abdomen: Distended and tender. No rebound or guarding. Infrequent bowel sounds. Genitourinary: No CVA tenderness. Extremities: No clubbing, cyanosis, or edema. Neurologic: Nonfocal. Skin: No rashes. Pulses: Are 2+. Laboratory Data: CBC from today shows a white count of 9500, hemoglobin 12.2, hematocrit 36.1, platelet count is 221,000. Chemistries: Sodium 134, potassium 4.0, chloride 95, CO2 is 31, BUN 9, glucose 149, calcium 9.2, creatinine 0.80. Abdominal film shows distended colon and small bowel, consistent with an ileus. Assessment and Recommendations: 1. This is definitely a postoperative ileus. The patient has had a couple of bowel movements, albeit with the help of laxatives. An obstruction therefore is unlikely to virtually impossible. The source of this is multifactorial and comes from a combination of narcotics and inactivity. I have told the patient point blank that he needs to ambulate more. The nurses report that he has been refusing therapy, which is not helping matters. I have also discussed with him coming off of Percocet and using hydrocodone instead, which he has had better success with as an outpatient. In addition, I would recommend going back from a regular diet down to full liquids as the patient has had mostly postprandial pain; if fells as if the food is sitting. If he improves, his diet could be re-advanced and the patient could be transferred to a penitentiary facility or acute rehabilitation. 2. Obesity. Patient needs to lose weight, but this is an outpatient matter. 3. Hypertension, stable. 4. Hypercholesterolemia, currently stable. Thank you very much for allowing me to see this patient in consultations. DERIAN GIFFORD M.D. RTS/mt TD: 11/10/2013 18:11 Authenticated and Edited by Derian Gifford MD On 11/22/13 10:05:22 AM documented in this encounter Miscellaneous Notes * Admission Note - Provider, MD Abran - 11/06/2013 12:00 AM CST Patient: LIAN ANDERSON Account: [id number] Room No: : 1955 Admit Date: 11/06/2013 Attending: JUAN ANTONIO HARPER MD Disch. Date: Dictating: JUAN ANTONIO HARPER MD Patient Type: IP The patient is a 57-year-old gentleman with a history of severe lower lumbar pain with radiating pain into both legs, worsened with walking even for brief periods of time. Myelogram with followup CT scan demonstrates severe spinal stenosis at L3-4 and L4-5. He is admitted for elective decompression and fusion at these levels and has been briefed on the goals, risks, limitations, and alternatives to surgical intervention. I reviewed the radiographic studies and clinical course of the patient with Dr. Taveras, the co-surgeon. MEDICAL HISTORY: 1. Hypercholesterolemia. 2. Hypertension. PAST MEDICAL HISTORY: Is notable for arthritis. SURGICAL HISTORY: Knee surgery in 1985. ALLERGIES: None. CURRENT MEDICATIONS: 1. Accupril. 2. Celebrex. 3. Lipitor. SOCIAL HISTORY: Nonsmoker. Drinks a 6-pack of beer per week. PHYSICAL EXAMINATION: GENERAL: Height 6 feet 4 inches. Weight 325. HEENT: Within normal limits. HEART: Shows a regular rate and rhythm. LUNGS: Clear. ABDOMEN: Benign. EXTREMITIES: Showed a full range of motion. NEUROLOGIC EXAMINATION: Alert and oriented x3. Cranial nerves intact. Motor and sensory examination reveals normal reflexes, 1+ and symmetric. JUAN ANTONIO HARPER MD DK/ss TD: 11/05/2013 15:38 Authenticated by Juan Antonio Harper MD On 11/06/2013 09:54:42 AM * Op Note - Provider, MD Abran - 11/06/2013 12:00 AM CST Patient: LIAN ANDERSON Account: [id number] Room No: 1408-A : 1955 Proc. Date: 11/06/2013 Surgeon: BEST HERNANDEZ MD Admit Date: 11/06/2013 Disch. Date: 11/11/2013 Patient Type: IP PREOPERATIVE DIAGNOSIS: Spinal stenosis with neurogenic claudication at L3-4 and L4-5. POSTOPERATIVE DIAGNOSIS: Spinal stenosis with neurogenic claudication at L3-4 and L4-5. NAME OF PROCEDURE: 1. Posterolateral fusion L3-L4, L4-L5. 2. Pedicle screw fixation, L3-L5 (CoreLink [place] screws). 3. Wide bilateral L3-4 laminectomy, medial facetectomy and foraminotomy. 4. Wide bilateral L4-5 laminectomy, medial facetectomy and foraminotomy. ATTENDING PHYSICIAN: Best Hernandez MD SURGEON: Best Hernandez MD CO-SURGEON: Juan Antonio Harper MD ANESTHESIA: General endotracheal anesthesia. COUNTS: Needle and sponge counts correct. SPECIMENS: None. ESTIMATED BLOOD LOSS, FLUID, AND URINE: See Anesthesia note. BLOOD TRANSFUSIONS: None. COMPLICATIONS: None. CONDITION: On discharge from the operating room, stable. INDICATIONS: The patient has a lumbar stenosis at L3-4 and L4-5 unresponsive to conservative treatment. Risks, alternatives, and benefits of the procedure have been discussed with the patient and he wishes to proceed. PROCEDURE: The patient was brought to the operating room and placed supine on the OR gurney. He was intubated and general endotracheal anesthesia was induced. He was turned into the prone position on a Matthew frame. All surfaces were padded. His back was prepped and draped in the usual fashion. The skin was infiltrated with 0.05% Marcaine with epinephrine. A #10 blade was used to make a linear midline incision and sharp dissection was carried down to the fascia. A subperiosteal dissection was undertaken to expose the spinous processes, lamina and transverse processes at L3, L4, and L5 bilaterally. This was verified by x-ray. The pedicles of L3, L4 and L5 were cannulated. Large facet hypertrophy was noted. The medial facets at L3 and L4 were moved bilaterally. The superior facets of L5 and L4 were removed with rongeurs. Autograft laminectomies were then used to remove the entire spinous process and lamina of L3 and L4. This morselized autograft was later used for fusion. Lateral recess decompression was performed bilaterally at L3-4 and L4-5 and bilateral foraminotomies were performed. After decompression of the thecal sac, the nerve roots were widely patent. The exposed bony surfaces were drilled with gently bleeding bone and the morselized autograft was packed in the posterolateral recesses bilaterally. Pedicle screws were then placed at L3, L4 and L5 bilaterally. Rods were in their natural place and final-tightened. This was seen to be in good position by fluoroscopy. The wound was then irrigated with antibiotic containing solution and closed in layers. A percutaneous epidural catheter was placed prior to closure. A fascial drain was also placed. Hudson were used to approximate the skin. A dry dressing was placed. The patient tolerated the procedure well without complication and was discharged in stable condition to the PACU moving all extremities. PRESENCE STATEMENT: I was present throughout and performed my entire portion of the procedure. BEST HERNANDEZ MD TS/km TD: 11/12/2013 14:13 Authenticated by Best Hernandez MD On 11/17/2013 11:23:15 AM * Op Note - Provider, MD Abran - 11/06/2013 12:00 AM CST Patient: LIAN ANDERSON Account: [id number] Room No: 1408-A : 1955 Proc. Date: 11/06/2013 Surgeon: JUAN ANTONIO HARPER MD Admit Date: 11/06/2013 Disch. Date: Patient Type: IP Preoperative Diagnosis: Spinal stenosis with neurogenic claudication, L3-4 and L4-5. Postoperative Diagnosis: Spinal stenosis with neurogenic claudication, L3-4 and L4-5. Procedure Performed: 1. L3-4 and L4-5 laminectomy, facetectomy, and foraminotomy (bilateral). 2. Pedicle screw fixation, L3-5. 3. Posterolateral fusion L3-5. Anesthesia: General. Surgeon: Juan Antonio Harper MD Co-surgeon: Best Hernandez MD Introduction: After careful review of the radiographic studies and clinical course with the patient, we agreed to the above-noted procedure. The patient previously had been briefed on the goals, risks, limitations, and alternatives to surgical intervention. Description of Procedure: After the induction of adequate endotracheal anesthesia, the patient was placed in a Matthew frame. The frame was flexed. Sterile prep and drape of the lower lumbar area was undertaken. A midline skin incision was outlined, infiltrated with local anesthetic, and carried down through the skin and subcutaneous tissue. Subperiosteal dissection was undertaken to expose the spinous process, lamina, and transverse processes of L3, L4, and L5. Radiographic verification probe of the level was verified. There was significant facet hypertrophy noted. We sounded and tapped the pedicles in preparation for later screw placement. We then removed the spinous processes and large medial facets, processed this for bone grafting purposes, and then decompressed the nerve roots well in the foramen bilaterally at L3-4 and L4-5. Following this, instrumentation and graft was placed. The locking heads were tightened and radiographic verification of appropriate instrumentation placement was verified. We then threaded an epidural catheter rostrally out separately, placed FloSeal and Gelfoam over the exposed thecal sac and nerve root, and closed the lumbodorsal fascia with a 0 Vicryl suture, irrigated, placed a subcutaneous drain, and closed the skin with 2-0 subcutaneous sutures, followed by gio. Sterile dressing was then applied. JUAN ANTONIO HARPER MD DK/mt TD: 11/06/2013 14:54 Authenticated by Juan Antonio Harper MD On 11/09/2013 09:23:18 AM documented in this encounter Plan of Treatment Not on file documented as of this encounter Procedures Procedure Name Priority Date/Time Associated Diagnosis Comments DISCHARGE LABORATORY CUMULATIVE REPORT 11/11/2013 ABDOMINAL RADIOGRAPHY, FRONTAL (AP) Routine 11/10/2013 9:54 AM BOILER COVERER PLASMA BASIC METABOLIC PANEL Routine 11/10/2013 9:22 AM BOILER COVERER BLOOD CELL COUNT (CBC), MORPHOLOGIC EXAM Routine 11/10/2013 9:22 AM BOILER COVERER PLASMA TROPONIN I Routine 11/08/2013 5:2 5 AM BOILER COVERER PLASMA TROPONIN I Routine 11/07/2013 4:3 2 PM BOILER COVERER BLOOD CELL COUNT (CBC), MORPHOLOGIC EXAM Routine 11/07/2013 4:32 PM BOILER COVERER PLASMA COMPREHENSIVE METABOLIC PANEL Routine 11/07/2013 12:20 PM BOILER COVERER BLOOD HEMOGLOBIN, HEMATOCRIT Routine 11/07/2013 5:49 AM BOILER COVERER ELECTROCARDIOGRAPHY (ECG) 11/07/2013 ELECTROCARDIOGRAPHY (ECG) 11/07/2013 SPINE RADIOGRAPHY Routine 11/06/2013 9:3 6 AM BOILER COVERER SPINE RADIOGRAPHY Routine 11/06/2013 9:3 6 AM BOILER COVERER SPINE RADIOGRAPHY Routine 11/06/2013 8:2 6 AM BOILER COVERER BLOOD ABO, RH, INDIRECT AB SCREEN Routine 11/06/2013 6:48 AM BOILER COVERER SERUM 25-HYDROXYCHOLECALCIFEROL (VITAMIN D) Routine 11/06/2013 6:42 AM BOILER COVERER BLOOD CELL COUNT (CBC), MORPHOLOGIC EXAM Routine 11/06/2013 6:42 AM BOILER COVERER BLOOD HEMOGLOBIN, HEMATOCRIT Routine 11/06/2013 2:40 AM BOILER COVERER documented in this encounter Results * DISCHARGE LABORATORY CUMULATIVE REPORT (11/11/2013) Narrative 11/11/2013 Ordered by an unspecified provider. us Historical Provider LAB BLOOD ORDERABLES Zayra l Result * ABDOMINAL RADIOGRAPHY, FRONTAL (AP) (11/10/2013 9:54 AM BOILER COVERER) Anatomical Region Laterality Modality N/A Radiographic Alexandra ging 11/10/2013 9:54 AM BOILER COVERER Narrative 11/10/2013 10:22 AM BOILER COVERER ABDOMEN HISTORY: Abdominal pain. ??Diarrhea. FINDINGS: Five abdomen films. ??Limited detail. ??Air-fluid levels in the colon. ??The colon is mildly distended throughout. ??No definite evidence of free air. ??Postoperative changes spine with some skin gio and screws and rods. ??There is some small bowel gas in the central abdomen with some distention of small bowel. ??Limited detail. ?? Fairly large patient. IMPRESSION: 1. ??Distended colon and small bowel. ??Favor ileus. ??Consider CT scanning for more complete evaluation. ??Clinical correlation recommended. DC/pab Radiologist: MECCA GARDNER MD ?? Attending: ??JUAN ANTONIO HARPER M.D. Requesting: JUAN ANTONIO HARPER M.D. Requesting Fax: ?? Attending Fax: ?? Attending ID: ?? [id number] Completed Time: ?? 11/10/2013 09:54 AM Dictated Time: ?11/10/2013 10:01 AM Transcribed Time: 11/10/2013 10:05 AM Signed by: ?MECCA GARDNER MD. ?? on 11/10/2013 10:22 AM Report To 1 ID: Report To 1 Name: , Report To 1 FAX: Report To 2 ID: Report To 2 Name: , Report To 2 FAX: Report To 3 ID: Report To 3 Name: , Report To 3 FAX: NextGen Order #: Procedure Note Provider, MD Abran - 02/11/2017 ABDOMEN HISTORY: Abdominal pain. Diarrhea. FINDINGS: Five abdomen films. Limited detail. Air-fluid levels in the colon. The colon is mildly distended throughout. No definite evidence of free air. Postoperative changes spine with some skin gio and screws and rods. There is some small bowel gas in the central abdomen with some distention of small bowel. Limited detail. Fairly large patient. IMPRESSION: 1. Distended colon and small bowel. Favor ileus. Consider CT scanning for more complete evaluation. Clinical correlation recommended. IN/pab Radiologist: MECCA GARDNER MD Attending: JUAN ANTONIO HARPER M.D. Requesting: JUAN ANTONIO HARPER M.D. Requesting Attending Attending ID: [id number] Completed Time: 11/10/2013 09:54 AM Dictated Time: 11/10/2013 10:01 AM Transcribed Time: 11/10/2013 10:05 AM Signed by: MECCA GARDNER MD on 11/10/2013 10:22 AM Report To 1 ID: Report To 1 Name: , Report To 1 FAX: Report To 2 ID: Report To 2 Name: , Report To 2 FAX: Report To 3 ID: Report To 3 Name: , Report To 3 FAX: NextGen Order #: us Historical Provider IMMariano XR PROCEDURES Final R esult * (ABNORMAL) Blood cell count (CBC), morphologic exam (11/10/2013 9:22 AM BOILER COVERER) WBC 9.5 4.5 - 11.0 K/cumm HISTORICAL RESULTS RBC 3.82(L) 4.50 - 6.20 M/cumm HISTORICAL RESULTS Hgb 12.2(L) 13.0 - 17.0 g/dl HISTORICAL RESULTS Hct 36.1(L) 39.0 - 52.0 % HISTORICAL RESULTS MCV 94.5 80.0 - 100.0 fl HISTORICAL RESULTS MCH 31.9 27.0 - 33.0 pg HISTORICAL RESULTS MCHC 33.8 32.0 - 36.0 g/dl HISTORICAL RESULTS Rdw 13.0 11.5 - 14.5 % HISTORICAL RESULTS Platelets 221 140 - 400 K/cumm HISTORICAL RESULTS MPV 8.9 7.4 - 10.4 fl HISTORICAL RESULTS Neutrophils 84.4(H) 42.0 - 75.0 % HISTORICAL RESULTS Lymphocytes 8.7(L) 21.0 - 51.0 % HISTORICAL RESULTS Monos 6.4 2.0 - 9.0 % HISTORICAL RESULTS Eosinophils 0.3 0.0 - 10.0 % HISTORICAL RESULTS Basophils 0.2 0.0 - 1.0 % HISTORICAL RESULTS Neutrophils, abs 8.0(H) 1.8 - 7.7 K/cumm HISTORICAL RESULTS Lymphocytes, abs 0.8(L) 1.0 - 4.8 K/cumm HISTORICAL RESULTS Monocytes, absolute 0.6 0.0 - 0.8 K/cumm HISTORICAL RESULTS Eosinophils, abs 0.0 0.0 - 0.5 K/cumm HISTORICAL RESULTS Basophils, abs 0.0 0.0 - 0.2 K/cumm HISTORICAL RESULTS Blood specimen (specimen) 11/10/2013 9:22 AM BOILER COVERER Juan Antonio Harper MD LAB BLOOD ORDERABLES Final R esult HISTORICAL RESULTS * (ABNORMAL) Plasma basic metabolic panel (11/10/2013 9:22 AM BOILER COVERER) Sodium 134(L) 136 - 146 mmol/L HISTORICAL RESULTS K, pl 4.0 3.3 - 4.9 mmol/L HISTORICAL RESULTS Chloride 95(L) 98 - 108 mmol/L HISTORICAL RESULTS CO2 31 22 - 33 mmol/L HISTORICAL RESULTS BUN 9 7 - 18 mg/dl HISTORICAL RESULTS Glucose 149(H) 70 - 140 mg/dl HISTORICAL RESULTS Comment: [...] creatinine clearance values should be used. Calcium 9.2 8.5 - 10.5 mg/dl HISTORICAL RESULTS Plasma 11/10/2013 9:22 AM BOILER COVERER Juan Antonio Harper MD LAB BLOOD ORDERABLES [facility] [employer] Performing Organization Address [facility] de Phone Number HISTORICAL RESULTS * Plasma troponin I (11/08/2013 5:25 AM BOILER COVERER) Pathologist [facility] Troponin I <0.01 0.00 - 0.04 ng/ml HISTORICAL RESULTS Comment: < 0.04 ng/mL ??No evidence of myocardial damage. 0.04 - 0.78 ng/mL Indeterminate-repeat analysis assess the possibility of myocardial damage. >0.78 ng/mL ??Consistent with myocardial damage. Plasma 11/08/2013 5:25 AM BOILER COVERER Juan Antonio Harper MD LAB BLOOD ORDERABLES Final [facility] Performing Organization Address [facility]/ZIP Co de Phone Number HISTORICAL RESULTS * (ABNORMAL) Blood cell count (CBC), morphologic exam (11/07/2013 4:32 PM BOILER COVERER) WBC 9.7 4.5 - 11.0 K/cumm HISTORICAL RESULTS RBC 3.65(L) 4.50 - 6.20 M/cumm HISTORICAL RESULTS Hgb 11.6(L) 13.0 - 17.0 g/dl HISTORICAL RESULTS Hct 34.3(L) 39.0 - 52.0 % HISTORICAL RESULTS MCV 94.0 80.0 - 100.0 fl HISTORICAL RESULTS MCH 31.8 27.0 - 33.0 pg HISTORICAL RESULTS MCHC 33.8 32.0 - 36.0 g/dl HISTORICAL RESULTS Rdw 13.2 11.5 - 14.5 % HISTORICAL RESULTS Platelets 161 140 - 400 K/cumm HISTORICAL RESULTS MPV 9.9 7.4 - 10.4 fl HISTORICAL RESULTS Neutrophils 79.4(H) 42.0 - 75.0 % HISTORICAL RESULTS Lymphocytes 8.1(L) 21.0 - 51.0 % HISTORICAL RESULTS Monos 11.6(H) 2.0 - 9.0 % HISTORICAL RESULTS Eosinophils 0.5 0.0 - 10.0 % HISTORICAL RESULTS Basophils 0.4 0.0 - 1.0 % HISTORICAL RESULTS Neutrophils, abs 7.7 1.8 - 7.7 K/cumm HISTORICAL RESULTS Lymphocytes, abs 0.8(L) 1.0 - 4.8 K/cumm HISTORICAL RESULTS Monocytes, absolute 1.1(H) 0.0 - 0.8 K/cumm HISTORICAL RESULTS Eosinophils, abs 0.0 0.0 - 0.5 K/cumm HISTORICAL RESULTS Basophils, abs 0.0 0.0 - 0.2 K/cumm HISTORICAL RESULTS Blood specimen (specimen) 11/07/2013 4:32 PM BOILER COVERER Juan Antonio Harper MD LAB BLOOD ORDERABLES Final R esult HISTORICAL RESULTS * Plasma troponin I (11/07/2013 4:32 PM BOILER COVERER) Troponin I <0.01 0.00 - 0.04 ng/ml HISTORICAL RESULTS Comment: < 0.04 ng/mL ??No evidence of myocardial damage. 0.04 - 0.78 ng/mL Indeterminate-repeat analysis assess the possibility of myocardial damage. >0.78 ng/mL ??Consistent with myocardial damage. Plasma 11/07/2013 4:32 PM BOILER COVERER Juan Antonio Harper MD LAB BLOOD ORDERABLES Final R esult HISTORICAL RESULTS * (ABNORMAL) Plasma comprehensive metabolic panel (11/07/2013 12:20 PM BOILER COVERER) Sodium 133(L) 136 - 146 mmol/L HISTORICAL RESULTS K, pl 3.2(L) 3.3 - 4.9 mmol/L HISTORICAL RESULTS Chloride 99 98 - 108 mmol/L HISTORICAL RESULTS CO2 27 22 - 33 mmol/L HISTORICAL RESULTS BUN 8 7 - 18 mg/dl HISTORICAL RESULTS Glucose 132 70 - 140 mg/dl HISTORICAL RESULTS Comment: Glucose is assumed to be non-fasting. ?? Fasting Glucose normal ranges are: 0 days - 2 months: ? 40 mg/dL - 100 mg/dL 2 months - 999 years: ?70 mg/dL - 99 mg/dL Creatinine 0.70 0.50 - 1.50 mg/dl HISTORICAL RESULTS eGFR >60 ml/min/1.7 3 m2 HISTORICAL RESULTS Comment: GFR Reference Range: = > 60 mL/min/1.73 m2 This result has been calculated assuming the patient is Non-. ??If the patient is , please multiply this result by 1.21. The GFR value is not recommended for medication dose adjustment for renal function, creatinine clearance values should be used. Calcium 8.6 8.5 - 10.5 mg/dl HISTORICAL RESULTS Bilirubin 1.1 0.1 - 1.2 mg/dl HISTORICAL RESULTS Protein, pl 6.0 6.0 - 8.5 g/dl HISTORICAL RESULTS Alb 3.4 3.4 - 5.0 g/dl HISTORICAL RESULTS Alk phos 52 38 - 126 IUnits/L HISTORICAL RESULTS ALT 45 17 - 63 IUnits/L HISTORICAL RESULTS AST 34 15 - 41 IUnits/L HISTORICAL RESULTS Plasma 11/07/2013 12:2 0 PM BOILER COVERER Narrative HISTORICAL RESULTS - 11/07/2013 12:49 PM BOILER COVERER This order is a replacement of the rejected order with accession number [id number] Juan Antonio Harper MD LAB BLOOD ORDERABLES Final R esult Performing Organization Address [facility] Co de Phone Number HISTORICAL RESULTS * (ABNORMAL) Blood hemoglobin, hematocrit (11/07/2013 5:49 AM BOILER COVERER) Hgb 11.7(L) 13.0 - 17.0 g/dl HISTORICAL RESULTS Hct 34.7(L) 39.0 - 52.0 % HISTORICAL RESULTS Blood specimen (specimen) 11/07/2013 5:49 AM BOILER COVERER Result [facility] Juan Antonio Harper MD LAB BLOOD ORDERABLES Final R esult Performing Organization Address [facility] de Phone Number HISTORICAL RESULTS * ELECTROCARDIOGRAPHY (ECG) (11/07/2013) Narrative 11/07/2013 Ordered by an unspecified provider. Result [facility] Provider ECG ORDERABLES Final Res ult * ELECTROCARDIOGRAPHY (ECG) (11/07/2013) Narrative 11/07/2013 Ordered by an unspecified provider. Result [facility] Provider ECG ORDERABLES Final Res ult * SPINE RADIOGRAPHY (11/06/2013 9:36 AM BOILER COVERER) Anatomical Region Laterality Modality N/A Radiographic Alexandra ging 11/06/2013 9:36 AM BOILER COVERER Narrative 11/07/2013 9:32 AM BOILER COVERER EXAMINATION: ??Lumbar spine single view - intraoperative DATE: 11/06/2013. HISTORY: ??Lumbar decompression. FINDINGS: ??A single intraoperative lateral view of the lumbar spine is submitted. ??There is ongoing posterior instrumented lumbar fusion procedure extending from L3 through L5. ??A linear metallic density overlies the posterior elements and the upper/superior aspect of the L3 vertebral body. ??Correlate clinically. ??Retractors are noted overlying the soft tissues posteriorly. ??Lumbar alignment is unchanged from earlier in the day. ??There is multilevel degenerative disc disease present. ??Age-indeterminate compression deformity is seen at L1. IMPRESSION: 1. ??Ongoing posterior instrumented lumbar fusion procedure at L3 through L5, as detailed above. ?? TOBI:asad Radiologist: LILLIE REILLY M.D. ?? Attending: ??JUAN ANTONIO HARPER M.D. Requesting: JUAN ANTONIO HARPER M.D. Requesting Fax: ?? Completed Time: ?? 11/06/2013 09:36 AM Dictated Time: ?11/06/2013 11:50 AM Transcribed Time: 11/06/2013 2:08 PM Signed by: ?LILLIE REILLY ?Cesar on 11/07/2013 09:32 AM Report To 1 ID: Report To 1 Name: , Report To 1 FAX: Report To 2 ID: Report To 2 Name: , Report To 2 FAX: Report To 3 ID: Report To 3 Name: , Report To 3 FAX: NextGen Order #: Procedure Note Provider, MD Abran - 02/11/2017 EXAMINATION: Lumbar spine single view - intraoperative DATE: 11/06/2013. HISTORY: Lumbar decompression. FINDINGS: A single intraoperative lateral view of the lumbar spine is submitted. There is ongoing posterior instrumented lumbar fusion procedure extending from L3 through L5. A linear metallic density overlies the posterior elements and the upper/superior aspect of the L3 vertebral body. Correlate clinically. Retractors are noted overlying the soft tissues posteriorly. Lumbar alignment is unchanged from earlier in the day. There is multilevel degenerative disc disease present. Age-indeterminate compression deformity is seen at L1. IMPRESSION: 1. Ongoing posterior instrumented lumbar fusion procedure at L3 through L5, as detailed above. TOBI:llc Radiologist: LILLIE REILLY M.D. Attending: JUAN ANTONIO HARPER M.D. Requesting: JUAN ANTONIO HARPER M.D. Requesting Completed Time: 11/06/2013 09:36 AM Dictated Time: 11/06/2013 11:50 AM Transcribed Time: 11/06/2013 2:08 PM Signed by: LILLIE REILLY M.D. on 11/07/2013 09:32 AM Report To 1 ID: Report To 1 Name: , Report To 1 FAX: Report To 2 ID: Report To 2 Name: , Report To 2 FAX: Report To 3 ID: Report To 3 Name: , Report To 3 FAX: NextGen Order #: us Historical Provider MD FRANK XR PROCEDURES Final R esult * SPINE RADIOGRAPHY (11/06/2013 9:36 AM BOILER COVERER) Anatomical Region Laterality Modality N/A Radiographic Alexandra ging 11/06/2013 9:36 AM BOILER COVERER Narrative 11/07/2013 9:32 AM BOILER COVERER EXAMINATION: Lumbar spine single view-intraoperative: DATE: 11/06/2013 HISTORY: Posterior lumbar fusion. ??Decompression. FINDINGS: Single intraoperative lateral view of the lumbar spine is compared to a prior from earlier in the morning. ??There is ongoing posterior instrumented lumbar fusion procedure extending from L3 through L5 with pedicle screws and vertically connecting rods. ?? Previously seen metallic density overlying the superior endplate at L3 is no longer identified. ??Correlate with ongoing procedure. ?? Posterior retractors are in place. ??There is multilevel degenerative disk disease. ??Age indeterminate compression deformity is seen at L1. IMPRESSION: 1. ??Intraoperative lumbar image with findings as above. ?? TOBI/mvb Radiologist: LILLIE REILLY M.D. ?? Attending: ??JUAN ANTONIO HARPER M.D. Requesting: JUAN ANTONIO HARPER M.D. Requesting Fax: ?? Completed Time: ?? 11/06/2013 09:36 AM Dictated Time: ?11/06/2013 11:52 AM Transcribed Time: 11/06/2013 2:09 PM Signed by: ?LILLIE REILLY ??Rukhsana on 11/07/2013 09:32 AM Report To 1 ID: Report To 1 Name: , Report To 1 FAX: Report To 2 ID: Report To 2 Name: , Report To 2 FAX: Report To 3 ID: Report To 3 Name: , Report To 3 FAX: NextGen Order #: Procedure Note Provider, MD Abran - 02/11/2017 EXAMINATION: Lumbar spine single view-intraoperative: DATE: 11/06/2013 HISTORY: Posterior lumbar fusion. Decompression. FINDINGS: Single intraoperative lateral view of the lumbar spine is compared to a prior from earlier in the morning. There is ongoing posterior instrumented lumbar fusion procedure extending from L3 through L5 with pedicle screws and vertically connecting rods. Previously seen metallic density overlying the superior endplate at L3 is no longer identified. Correlate with ongoing procedure. Posterior retractors are in place. There is multilevel degenerative disk disease. Age indeterminate compression deformity is seen at L1. IMPRESSION: 1. Intraoperative lumbar image with findings as above. TOBI/mvb Radiologist: LILLIE REILLY M.D. Attending: JUAN ANTONIO HARPER M.D. Requesting: JUAN ANTONIO HARPER M.D. Requesting Completed Time: 11/06/2013 09:36 AM Dictated Time: 11/06/2013 11:52 AM Transcribed Time: 11/06/2013 2:09 PM Signed by: LILLIE REILLY M.D. on 11/07/2013 09:32 AM Report To 1 ID: Report To 1 Name: , Report To 1 FAX: Report To 2 ID: Report To 2 Name: , Report To 2 FAX: Report To 3 ID: Report To 3 Name: , Report To 3 FAX: NextGen Order #: us Historical Provider IMMariano XR PROCEDURES Final R esult * SPINE RADIOGRAPHY (11/06/2013 8:26 AM BOILER COVERER) Anatomical Region Laterality Modality N/A Radiographic Alexandra ging 11/06/2013 8:26 AM BOILER COVERER Narrative 11/06/2013 10:19 AM BOILER COVERER Lumbar spine: HISTORY: ??L3-L5 posterior lumbar fusion and decompression with CoreLink. Intraoperative lateral radiograph of the lumbar spine at about 0821 hours. ??Surgical clamp projects posteriorly over the L3 posterior elements. ??Surgical retractors and surgical sponges are in the field. ?? Compression fracture deformity of L1 is present. IMPRESSION: 1. ??Operative lumbar spine film for localization purposes. AM/mvb Radiologist: OLVIN PINO MD ??Cecelia. ?? Attending: ??JUAN ANTONIO HARPER M.D. Requesting: JUAN ANTONIO HARPER M.D. Requesting Fax: ?? Completed Time: ?? 11/06/2013 08:26 AM Dictated Time: ?11/06/2013 08:51 AM Transcribed Time: 11/06/2013 10:09 AM Signed by: ?ODETTE SUN, OLVIN ?Mali Milian on 11/06/2013 10:19 AM Report To 1 ID: Report To 1 Name: , Report To 1 FAX: Report To 2 ID: Report To 2 Name: , Report To 2 FAX: Report To 3 ID: Report To 3 Name: , Report To 3 FAX: NextGen Order #: Procedure Note Provider, MD Abran - 02/11/2017 Lumbar spine: HISTORY: L3-L5 posterior lumbar fusion and decompression with CoreLink. Intraoperative lateral radiograph of the lumbar spine at about 0821 hours. Surgical clamp projects posteriorly over the L3 posterior elements. Surgical retractors and surgical sponges are in the field. Compression fracture deformity of L1 is present. IMPRESSION: 1. Operative lumbar spine film for localization purposes. AM/mvb Radiologist: OLVIN PINO MD, M.D. Attending: JUAN ANTONIO HARPER M.D. Requesting: JUAN ANTONIO HARPER M.D. Requesting Completed Time: 11/06/2013 08:26 AM Dictated Time: 11/06/2013 08:51 AM Transcribed Time: 11/06/2013 10:09 AM Signed by: OLVIN PINO MD, M.D. on 11/06/2013 10:19 AM Report To 1 ID: Report To 1 Name: , Report To 1 FAX: Report To 2 ID: Report To 2 Name: , Report To 2 FAX: Report To 3 ID: Report To 3 Name: , Report To 3 FAX: NextGen Order #: us Historical Provider IMG XR PROCEDURES Final R esult * Blood ABO, Rh, indirect ab screen (11/06/2013 6:48 AM BOILER COVERER) ABO typing O HISTORICA L RESULTS Rho(D) typing Positive HISTOR ICAL RESULTS Eddie, indirect Negative HISTORICAL RESULTS Blood specimen (specimen) 11/06/2013 6:48 AM BOILER COVERER Juan Antonio Harper MD LAB BLOOD ORDERABLES Final R esult HISTORICAL RESULTS * (ABNORMAL) Blood cell count (CBC), morphologic exam (11/06/2013 6:42 AM BOILER COVERER) WBC 5.9 4.5 - 11.0 K/cumm HISTORICAL RESULTS RBC 4.41(L) 4.50 - 6.20 M/cumm HISTORICAL RESULTS Hgb 14.1 13.0 - 17.0 g/dl HISTORICAL RESULTS Hct 41.3 39.0 - 52.0 % HISTORICAL RESULTS MCV 93.5 80.0 - 100.0 fl HISTORICAL RESULTS MCH 31.9 27.0 - 33.0 pg HISTORICAL RESULTS MCHC 34.1 32.0 - 36.0 g/dl HISTORICAL RESULTS Rdw 12.7 11.5 - 14.5 % HISTORICAL RESULTS Platelets 188 140 - 400 K/cumm HISTORICAL RESULTS MPV 9.5 7.4 - 10.4 fl HISTORICAL RESULTS Neutrophils 56.9 42.0 - 75.0 % HISTORICAL RESULTS Lymphocytes 26.1 21.0 - 51.0 % HISTORICAL RESULTS Monos 10.9(H) 2.0 - 9.0 % HISTORICAL RESULTS Eosinophils 5.2 0.0 - 10.0 % HISTORICAL RESULTS Basophils 0.9 0.0 - 1.0 % HISTORICAL RESULTS Neutrophils, abs 3.4 1.8 - 7.7 K/cumm HISTORICAL RESULTS Lymphocytes, abs 1.5 1.0 - 4.8 K/cumm HISTORICAL RESULTS Monocytes, absolute 0.6 0.0 - 0.8 K/cumm HISTORICAL RESULTS Eosinophils, abs 0.3 0.0 - 0.5 K/cumm HISTORICAL RESULTS Basophils, abs 0.1 0.0 - 0.2 K/cumm HISTORICAL RESULTS Blood specimen (specimen) 11/06/2013 6:42 AM BOILER COVERER Juan Antonio Harper MD LAB BLOOD ORDERABLES Final R esult HISTORICAL RESULTS * Serum 25-hydroxycholecalciferol (vitamin D) (11/06/2013 6:42 AM BOILER COVERER) 25-OH Vit D 47 30 - 100 ng/ml HISTORICAL RESULTS Serum 11/06/2013 6:42 AM BOILER COVERER Juan Antonio Harper MD LAB BLOOD ORDERABLES Final R [facility] HISTORICAL RESULTS * Blood hemoglobin, hematocrit (11/06/2013 2:40 AM BOILER COVERER) Hgb 14.1 13.0 - 17.0 g/dl HISTORICAL RESULTS Hct 42.4 39.0 - 52.0 % HISTORICAL RESULTS Blood specimen (specimen) 11/06/2013 2:40 AM BOILER COVERER Narrative HISTORICAL RESULTS - 11/06/2013 3:14 AM BOILER COVERER call [place] room [id number] with results Juan Antonio Harper MD LAB BLOOD ORDERABLES Final R [facility] HISTORICAL RESULTS documented in this encounter Visit Diagnoses Diagnosis Spinal stenosis of lumbar region with neurogenic claudication Paralytic ileus (CMS/HCC) (HCC) Paralytic ileus Body mass index (BMI) of 40.0-44.9 in adult (HCC) Essential hypertension Unspecified essential hypertension Pure hypercholesterolemia Arthropathy Unspecified arthropathy, site unspecified Sleep apnea Unspecified sleep apnea Obesity Obesity, unspecified History of other diseases of digestive system Family history of ischemic heart disease documented in this encounter
--- OUTSIDE RECORDS SUMMARY | 2024-10-05 03:03 | XMS_ITS | Continuity of Care Document ---
Author Organization [facility] Address [address] [place] [address] Phone Care Team Providers Care Circulation Crew Leader Name Role Phone Maryjane Segura MD Unavailable [...] MG - Active Procedures Procedure Date OFFICE [id number] POSTOPERATIVE FOLLOW-UP VISIT, INCLUDED IN [facility] POSTOPERATIVE FOLLOW-UP VISIT, INCLUDED IN [facility] Xray Exam, Hip, Unilat, Two Or Three Vie ws POSTOPERATIVE FOLLOW-UP VISIT, INCLUDED IN [facility] POSTOPERATIVE FOLLOW-UP VISIT, INCLUDED IN [facility] TOTAL HIP ARTHROPLASTY Xray Exam, Hip, Unilat, Two Or Three Vie ws OFFICE [id number] POSTOPERATIVE FOLLOW-UP VISIT, INCLUDED IN [facility] POSTOPERATIVE FOLLOW-UP VISIT, INCLUDED IN [facility] Xray Exam, Hip, Unilat, Two Or Three Vie ws POSTOPERATIVE FOLLOW-UP VISIT, INCLUDED IN [facility] TOTAL HIP ARTHROPLASTY OFFICE [id number] Advance Directives Directive Yes / No Effective Date File Name No Information Encounters Encounter Description Practice Location Reason(s) For Visit Diagnoses Date Provider Providers Copied on Encounter OFFICE [id number] ANDED [facility], [address], [place], [place], [id number], tel:[phone] [facility] RIGHT HIP (chief complaint) Primary osteoarthritis of right hip [address], [place], [address] , . tel:[phone] Referring Provider: [address], [place], [address] . tel:[phone] [facility], [address], [place], [place], [address], tel:[phone] [facility] RIGHT HIP (chief complaint) Status post total replacement of right hip [address], [place], [place], [address] , . tel:[phone] Referring Provider: [address], [place], [address] . tel:[phone] [facility], [address], [place], [place], [address], tel:[phone] [facility] Right Hip (chief complaint) Status post total replacement of right hip [facility]. [address], [place], [place], [address] , . tel:[phone] Referring Provider: Maryjane Segura, [address], [place], [address] . tel:[phone] [facility], [address], [place], [place], [address], tel:[phone] [facility] No Information [facility]. [address], [place], [place], [address] , . tel:[phone] Referring Provider: Maryjane Segura, [address], [place], [address] . tel:[phone] OFFICE UNLIN-IGT-QGC ELLEN [facility], [address], [place], [place], [address], tel:[phone] [facility] Right Hip (chief complaint) Primary osteoarthritis of right hip [facility]. [address], [place], [place], [address] , [place]. tel:[phone] Referring Provider: Maryjane Segura, [address], [place], [address] . tel:[phone] [facility], [address], [place], [place], [address], tel:[phone] [facility] Telehealth (chief complaint) Status post total hip replacement, left [facility]. [address], [place], [place], [address] , [place]. tel: [phone] Referring Provider: Maryjane Segura, [address], [place], [address] . tel:[phone] [facility] [address], [place], [place], [address], tel:[phone] [facility] Left Hip (chief complaint) Status post total hip replacement, left [facility]. [address], [place], [place], [address] , [place]. tel: [phone] Referring Provider: Maryjane Segura, [address], [place], [address] . tel:[phone] [address] [address], [place], [place], [address], tel:[phone] [facility] No Information [address] [place] [address]. [address], [place], [place], [address] , [place]. tel: [phone] Referring Provider: Maryjane Segura, [address], [place], [address] . tel:[phone] [facility] [address], [place], [place], [address], tel:[phone] [facility] No Information [address] [place] [address]. [address], [place], [place], [address] , [place]. tel: [phone] OFFICE AYCEA-HFO-JDF ELLEN [facility], [address], [place], [place], [address], [place] tel:[phone] [facility] Left Hip (chief complaint) Primary osteoarthritis of left hip 0 [facility]. [address], [place], [place], [address] , . tel: [phone] Referring Provider: [address], [place], [address] . tel:[phone] Family History Family Member Type Diagnosis Age At Onset Problem (finding) Family history of hyper tension Problem (finding) Family history of coronary arteriosclerosis Problem (finding) Myocardial infarction Payers Payer name Insurance type Covered constitution party ID Jessica ly(s) [facility] [employer] COMPLETE HMO MB [id number] Social History Type Description Quantity Date Captured [...] GIVEN TO PATIENT. Telehealth PT CONFIRMED TEL [employer] CHARGES - 1:12-1:14Telemedicine call- 2 months post [...] Mental Status Date Cognitive Assessment Orientation - [place] ed to time, place, person, situation. Patient Care Teams Name Effective Dates (start - stop) Status Members No Information
== END 2024-09-28 09:20 | disposition home or self-care (01) ==
PROVIDERS: PCP Internal Medicine; Visit Provider Internal Medicine Gastroenterology
PROC: 0DJD8ZZ Inspection of Lower Intestinal Tract, Via Natural or Artificial Opening Endoscopic (ICD-10-PCS; CPT 45378; principal; 2024-09-28 08:30)
DX: Z09 Encounter for follow-up examination after completed treatment for conditions other than malignant neoplasm (principal); K57.30 Diverticulosis of large intestine without perforation or abscess without bleeding; K63.5 Polyp of colon; K63.89 Other specified diseases of intestine; I48.91 Unspecified atrial fibrillation; I10 Essential (primary) hypertension; I25.10 Atherosclerotic heart disease of native coronary artery without angina pectoris; E78.5 Hyperlipidemia, unspecified; Z95.5 Presence of coronary angioplasty implant and graft; E66.01 Morbid (severe) obesity due to excess calories; Z68.41 Body mass index [BMI] 40.0-44.9, adult; Z87.19 Personal history of other diseases of the digestive system
CPT/HCPCS: 45380; 45385; 88305; J2003; J2704; J7120

== ENCOUNTER 2025-06-14 10:03 | Outpatient (CLI) | payer MEDICARE, SELFPAY ==
--- OUTSIDE RECORDS SUMMARY | 2022-02-01 05:50 | XMS_ITS | Continuity of Care Document ---
Author Organization [facility] Address [address] [place] [address] Phone Care Team Providers Care Vamp Seamer Name Role Phone Maryjane Segura MD Unavailable [...] MG - Active Procedures Procedure Date OFFICE [id number] POSTOPERATIVE FOLLOW-UP VISIT, INCLUDED IN [facility] POSTOPERATIVE FOLLOW-UP VISIT, INCLUDED IN [facility] Xray Exam, Hip, Unilat, Two Or Three Vie ws POSTOPERATIVE FOLLOW-UP VISIT, INCLUDED IN [facility] POSTOPERATIVE FOLLOW-UP VISIT, INCLUDED IN [facility] TOTAL HIP ARTHROPLASTY Xray Exam, Hip, Unilat, Two Or Three Vie ws OFFICE [id number] POSTOPERATIVE FOLLOW-UP VISIT, INCLUDED IN [facility] POSTOPERATIVE FOLLOW-UP VISIT, INCLUDED IN [facility] Xray Exam, Hip, Unilat, Two Or Three Vie ws POSTOPERATIVE FOLLOW-UP VISIT, INCLUDED IN [facility] TOTAL HIP ARTHROPLASTY OFFICE [id number] Advance Directives Directive Yes / No Effective Date File Name No Information Encounters Encounter Description Practice Location Reason(s) For Visit Diagnoses Date Provider Providers Copied on Encounter OFFICE [id number] ANDED [facility], [address], [place], [place], [address], tel:[phone] [facility] RIGHT HIP (chief complaint) Primary osteoarthritis of right hip [address], [place], [address] , . tel:[phone] Referring Provider: [address], [place], [address] . tel:[phone] [facility], [address], [place], [place], [address], tel:[phone] [facility] RIGHT HIP (chief complaint) Status post total replacement of right hip 2 [address]. [address], [place], [place], [address] , . tel:[phone] Referring Provider: [address], [place], [address] . tel:[phone] [facility], [address], [place], [place], [address], tel:[phone] [facility] Right Hip (chief complaint) Status post total replacement of right hip [facility]. [address], [place], [place], [address] , . tel:[phone] Referring Provider: Maryjane Segura, [address], [place], [address] . tel:[phone] [facility], [address], [place], [place], [address], tel:[phone] [facility] No Information [facility]. [address], [place], [place], [address] , . tel:[phone] Referring Provider: Maryjane Segura, [address], [place], [address] . tel:[phone] OFFICE [id number] ELLEN [facility], [address], [place], [place], [address], tel:[phone] [facility] Right Hip (chief complaint) Primary osteoarthritis of right hip [facility]. [address], [place], [place], [address] , [place]. tel:[phone] Referring Provider: Maryjane Segura, [address], [place], [address] . tel:[phone] [facility], [address], [place], [place], [address], tel:[phone] [facility] (chief complaint) Status post total hip replacement, left [facility]. [address], [place], [place], [address] , [place]. tel: [phone] Referring Provider: Maryjane Segura, [address], [place], [address] . tel:[phone] [facility] [address], [place], [place], [address], tel:[phone] [facility] Left Hip (chief complaint) Status post total hip replacement, left [facility]. [address], [place], [place], [address] , [place]. tel: [phone] Referring Provider: Maryjane Segura, [address], [place], [address] . tel:[phone] [address], [place], [place], [address], tel:[phone] [facility] No Information [address] [place] [address]. [address], [place], [place], [address] , [place]. tel: [phone] Referring Provider: Maryjane Segura, [address], [place], [address] . tel:[phone] [facility] [address], [place], [place], [address], tel:[phone] [facility] No Information [address] [place] [address]. [address], [place], [place], [address] , [place]. tel: [phone] OFFICE [id number] ELLEN [facility], [address], [place], [place], [address], [place] tel:[phone] [facility] Left Hip (chief complaint) Primary osteoarthritis of left hip 0 [facility]. [address], [place], [place], [address] , . tel: [phone] Referring Provider: [address], [place], [address] . tel:[phone] Family History Family Member Type Diagnosis Age At Onset Problem (finding) Myocardial infarction Problem (finding) Family history of coronary arteriosclerosis Problem (finding) Family history of hyper tension Payers Payer name Insurance type Covered constitution party ID Authoreamon ly(s) [facility] MDCR COMPLETE HMO [place] [id number] Social History Type Description Quantity Date Captured [...] GIVEN TO PATIENT. Telehealth PT CONFIRMED TEL [employer] CHARGES - 1:12-1:14Telemedicine call- 2 months post [...] Mental Status Date Cognitive Assessment Orientation - Pall Mall ed to time, place, person, situation. Patient Care Teams Name Effective Dates (start - stop) Status Members No Information
--- OUTSIDE RECORDS SUMMARY | 2025-06-14 10:24 | XMS_ITS | Encounter Summary ---
Author Organization [facility] Address [address] [place] [address] Phone Care Team Providers Care Pin Maker Name Role Phone Gianluca Price MD Primary Care Provider Ayden Corona DO Unavailable [phone] Roberto Medley MD Unavailable [phone] Encounter Details Date Type Department Care Team (Late st Contact Info) Description 01/18/2021 Telephone [facility] Cardiology [address] [place] [address] [place] [address] Ari Bradley MD [address] [place] [address] Social History Tobacco Use Types [...] on file Legal Sex Male 3:11 AM 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 STRIPPER Gender Identity Not on file Sexual Orientation Not on file Occupation Industry Job Start Date Job End Date Retired Not on file Not on file Not on file documented as of this encounter Plan of Treatment Not on file documented as of this encounter Visit Diagnoses Not on filedocumented in this encounter Care Teams Pin Maker Relationship Specialty Start Date End Date Gianluca Price MD PCP - General 06/18/17 Ayden Corona DO [address] [facility] [address] [place] [address] Referring Physician Surgery 10/29/22 Roberto Medley MD [id number] [place] [address] Surgeon Colon and Rectal Surgery 11/23/22 documented as of this encounter
--- OUTSIDE RECORDS SUMMARY | 2025-06-14 10:24 | XMS_ITS | Clinical Summary ---
Author Organization [facility] [facility] Address [address] [place] [address] Care Team Providers Care International Student Counselor Name Role Phone Gianluca Price MD Primary Care Provider [phone] Source Comments [facility],non-owned Affiliates and Associated Physician Practices is amultiple site organization consisting of ambulatory clinics and hospital sitesin [place], [place], [place] and [place]. This disclosure is being madepursuant to the Care Everywhere program and may not contain all information available regarding this patient. Last updated 18.[facility] Allergies Active Allergy Reactions Criticality Noted Date Comments Rosuvastatin Myalgias 12/22/2019 Medications * Be aware that medications may not be up to date on this document. Alwaysverify current medications with the patient. allopurinol (ZYLOPRIM) 300 MG tabletIndicati ons:Primary Gout Take 300 mg by mouth once daily Reasons: Primary Gout Active quinapril (ACCUPRIL) 40 MG tabletIndicati ons:Hypertensi on Take 40 mg by mouth once daily Reasons: High Blood Pressure Disorder Active hydroCHLOROthi azide (HYDRODIURIL) 25 MG tabletIndicati ons:Hypertensi on Take 25 mg by mouth once daily Reasons: High Blood Pressure Disorder Active atorvastatin (LIPITOR) 40 MG tabletIndicati ons:Hyperlipid emia Take 40 mg by mouth once daily Reasons: High Amount of Fats in the Blood Active clopidogrel (PLAVIX) 75 MG tabletIndicati ons:Acute Coronary Syndrome Take 75 mg by mouth once daily Reasons: Acute Coronary Syndrome Active carvedilol (COREG) 6.25 MG tabletIndicati ons:Hypertensi on Take 6.25 mg by mouth 2 times daily with morning and evening meal Reasons: High Blood Pressure Disorder Active furosemide (LASIX) 20 MG tabletIndicati ons:Hypertensi on Take 20 mg by mouth 2 times daily Reasons: High Blood Pressure Disorder Active potassium chloride ER (KLOR-CON M) 20 MEQ tabletIndicati ons:Hypokalemi a Take 20 mEq by mouth once daily Reasons: Low Amount of Potassium in the Blood Active amLODIPine (NORVASC) 5 MG tabletIndicati ons:Hypertensi on Take 5 mg by mouth once daily Reasons: High Blood Pressure Disorder Active apixaban (ELIQUIS) 5 MG tabletIndicati ons:Cerebrovas cular Accident Take 5 mg by mouth 2 times daily Reasons: Cerebrovascular Accident or Stroke Active HYDROcodone-ac etaminophen (NORCO) 7.5-325 MG tablet Take 1 (one) tablet by mouth every 4 hours as needed for Pain 40 tablet 09/15/20 21 Active Active Problems Problem Noted Date Diagnosed [...] at Not on file Legal Sex Male 9:23 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 Gender Identity Not on file Sexual Orientation Not on file Last Filed Vital Signs Vital Sign Reading Time Taken Comments Blood Pressure 149/93 09/16/2021 7:19 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 Pulse 89 09/16/2021 7:19 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 Temperature 36.3 C (97.3 F) 09/16/2021 7:19 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 Respiratory Rate 17 09/16/2021 7:19 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 Oxygen Saturation 99% 09/16/2021 7:19 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 Inhaled Oxygen Concentration - - Weight 159.6 kg (351 lb 12.8 oz) 09/13/2021 7:45 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 Height 195.6 cm (6' 5) 09/13/2021 7:45 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 Body Mass Index 41.72 09/13/2021 7:45 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 Plan of Treatment Health Maintenance Due Date Last Done Comments COLOGUARD (AGES 45-75) - COLON CA SCREENING 1955 COLON MONITORING 1955 COLONOSCOPY - COLON CA SCREENING 1955 CT COLONOGRAPHY - COLON CA SCREENING 1955 Colorectal Cancer Screening 1955 FIT - COLON CA SCREENING 1955 FLEX SIG - COLON CA SCREENING 1955 HEPATITIS C SCREENING 12/23/1973 DTAP/TDAP/TD VACCINES (1 - Tdap) 12/27/1974 PNEUMOCOCCAL VACCINE 50+ (1 of 1 - PCV) 12/27/2005 ZOSTER VACCINE (1 of 2) 12/27/2005 Respiratory Syncytial Virus (RSV) Vaccine Pt: or over 60 yrs (1 - Risk 60-74 years 1-dose series) 2015 COVID-19 VACCINE (3 - 2023- season) 2024 08/02/2021, 12/08/2020 DEPRESSION SCREENING 10/07/2024 MEDICARE AWV CALENDAR YEAR 2024 INFLUENZA VACCINE (#1) 2025 , 06/28/2021, 06/27/2020, Additional history exists HEPATITIS B VACCINE Aged Out No longe r eligible based on patient's age to complete this topic HIB VACCINE Aged Out No longer eligi ble based on patient's age to complete this topic HPV VACCINE Aged Out No longer eligi ble based on patient's age to complete this topic MENINGOCOCCAL (Group B) VACCINE SHARED DECISION-MAKING Aged Out No longer eligible based on patient's age to complete this topic MENINGOCOCCAL GROUPS A/C/Y/W VACCINE Aged Out No longer eligible based on patient's age to complete this topic Medical Devices Implanted Type Area Core Driller Device Identifier Shelf Expiration Date Model / Serial / Lot Screw 6.5mm 35mm Dome Hip Actb Canc Implanted:Qty: 1 on 12/22/2019 by Maryjane Segura MD at [facility] Left: Hip [employer] 09/14/2026 [id number] / / [id number] Shell Actb 58mm Hip Lmt Hl Rnglc+ Implanted:Qty: 1 on 12/22/2019 by Maryjane Segura MD at [facility] Left: Hip [employer] 08/08/2029 [id number] / / [id number] Acetabular Liner E1 Antioxidant Infused 36mm Head Size Liner Size 25 Implanted:Qty: 1 on 12/22/2019 by Maryjane Segura MD at [facility] Left: Hip [employer] 09/12/2023 [id number] / / [id number] Standard Femoral Stemsize 12 X 140mm Implanted:Qty: 1 on 12/22/2019 by Maryjane Segura MD at [facility] Left: Hip [employer] 07/31/2029 [id number] / / [id number] Head Fem 36mm Hip Blx D Optn G7 Implanted:Qty: 1 on 12/22/2019 by Maryjane Segura MD at [facility] Left: Hip [employer] 08/28/2028 [id number] / / [id number] Slv Centering G7 +3mm Ofst Tpr Hip Ti Ty Implanted:Qty: 1 on 12/22/2019 by Maryjane Segura MD at [facility] Left: Hip [employer] 09/23/2028 [id number] / / [id number] Head Fem 36mm Hip Blx D Optn G7 Implanted:Qty: 1 on 09/13/2021 by Maryjane Segura MD at [facility] Right: Hip [employer] 01/10/2031 [id number] / / [id number] Slv Centering G7 Std Ofst Tpr Hip Ti Ty Implanted:Qty: 1 on 09/13/2021 by Maryjane Segura MD at [facility] Right: Hip [employer] 03/16/2031 [id number] / / [id number] Stem Fem 11mm 135mm Hip 135d Std Ofst Implanted:Qty: 1 on 09/13/2021 by Maryjane Segura MD at [facility] Right: Hip [employer] 03/10/2031 [id number] / / [id number] Self Tapping Bone Screw 6.5 X35mm Implanted:Qty: 1 on 09/13/2021 by Maryjane Segura MD at [facility] Right: Hip 06/20/2031 / / [id number] High Wall Loaner Implanted:Qty: 1 on 09/13/2021 by Maryjane Segura MD at [facility] Right: Hip 05/20/2026 [id number] / / [id number] Shell Actb 54mm Hip Lmt Hl Clr Cd Pps G7 Implanted:Qty: 1 on 09/13/2021 by Maryjane Segura MD at [facility] Right: Hip [employer] 05/19/2031 [id number] / / [id number] Insurance [facility] MEDICARE ADV AETNA MEDICARE ADV SELF PAY NO INSURANCE Member Subscriber Plan / Payer (Ef fective for All Dates) Name:Lian Anderson Member ID:Not on file Relation to Subscriber:Not on file Name:LIAN ANDERSON Subscriber ID:Not on file (Home) Address: [address] [place] [id number] Payer ID:Not on file Group ID:Not on file Type:Self Pay Address: [place], [place] [facility] MEDICARE ADV Advance Directives * Full Code (Latest Code Status on File) Date Activated Date Inactivated Comments 09/13/2021 2:02 PM 09/16/2021 1:57 PM * Full Code Date Activated Date Inactivated Comments 12/22/2019 3:46 PM 12/25/2019 4:57 PM Care Teams International Student Counselor Relationship Specialty Start Date End Date Gianluca Price MD [address] [place] [address] [address] [place] [address] PCP - General Internal Medicine 08/29/21
--- OUTSIDE RECORDS SUMMARY | 2025-06-14 10:24 | XMS_ITS | Clinical Summary ---
Author Organization [facility] Address [address] [place] [address] Care Team Providers Care Melter Helper Name Role Phone Gianluca Price MD Primary Care Provider Ayden Corona DO Unavailable [phone] Roberto Medley MD Unavailable [phone] Allergies Active Allergy Reactions Criticality Noted Date Comments Rosuvastatin Muscle pain Medium 06/30/2019 Medications allopurinol (ZYLOPRIM) 300 mg tabletIndicatio ns:prevention of acute gout attack Take 1 tablet (300 mg total) by mouth nightly 8 Active multivitamin capsuleIndicati ons:Vitamin Deficiency Prevention Take 1 capsule by mouth jewel bearing turner before breakfast Active cholecalciferol (VITAMIN D-3) 41179 unit capsuleIndicati ons:supplement Take 1 capsule (10,000 Units total) by mouth jewel bearing turner before breakfast Active acetaminophen (TYLENOL) 500 mg tablet Take 2 tablets (1,000 mg total) by mouth every 6 (six) hours as needed for pain Active potassium chloride ER 20 mEq CR tablet Take 1 tablet (20 mEq total) by mouth 2 (two) times a day 200 tablet 2 4 Active atorvastatin (LIPITOR) 80 mg tablet TAKE 1 TABLET BY MOUTH LEASING SPECIALIST BEFORE BREAKFAST 90 tablet 3 4 Active nitroglycerin (NITROSTAT) 0.4 mg SL tabletIndicatio ns:acute episode of anginal pain Place 1 tablet (0.4 mg total) under the tongue every 5 (five) minutes as needed for chest pain (prn) Up to 3 doses per episode. If chest pain persists after the 3rd dose, call 911. 25 tablet 4 4 Active apixaban (ELIQUIS) 5 mg tablet Take 1 tablet (5 mg total) by mouth 2 (two) times a day 180 tablet 3 5 Active sacubitriL-vals kayleigh (ENTRESTO) 24-26 mg tabletIndicatio ns:chronic heart failure Take 1 tablet by mouth 2 (two) times a day 180 tablet 3 5 Active Farxiga 10 mg tablet TAKE 1 TABLET BY MOUTH EVERY DAY 30 tablet 5 5 Active furosemide (LASIX) 80 mg tablet TAKE 1 TABLET BY MOUTH EVERY DAY 90 tablet 3 5 Active carvediloL (COREG) 6.25 mg tablet TAKE 1 TABLET BY MOUTH TWICE A DAY WITH FOOD 180 tablet 3 5 Active clopidogreL (PLAVIX) 75 mg tabletIndicatio ns:stent placed 2019 Take 1 tablet (75 mg total) by mouth every morning 90 tablet 3 5 Active Active Problems Problem Noted Date Diagnosed Date Anal fistula 01/10/2024 Surgical wound, non healing 11/08/2023 Abnormal EKG 04/19/2022 Overview (04/19/2022): Added automatically from request for surgery [id number] Chest pain 04/19/2022 Overview (04/19/2022): Added automatically from request for surgery [id number] Acute diastolic congestive heart failure 022 Overview (04/19/2022): Added automatically from request for surgery [id number] Low back pain, non-specific 06/08/2020 Assessment & [...] for re-evaluation. Coronary artery disease invo lving elim ira coronary artery of elim ira heart without angina pectoris 11/04/2015 Abnormal cardiovascular stress test 10/19/2015 Shortness of breath 10/19/2015 Hyperlipidemia 10/19/2015 Hypertension 10/19/2015 Resolved Problems Problem Noted Date Diagnosed Date Resolved Date Anal fistula 11/26/2022 01/10/2024 Overview (11/26/2022): Added automatically from request for surgery [id number] Encounters Date Type Department Care Team Description 04/27/2025 9:45 AM CDT Office Visit [facility] [address] [facility] [address] [place] [address] Ari Bradley MD Coronary artery disease involving elim ira coronary artery of elim ira heart without angina pectoris (Primary Dx) 03/15/2025 Telephone [facility] [address] 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 Gender Identity Not on file Sexual Orientation Not on file Occupation Industry Job Start Date Job End Date Retired Not on file Not on file Not on file Obstetrics History Last Filed Vital Signs Vital Sign Reading Time Taken Comments Blood Pressure 131/89 04/27/2025 10:00 AM CDT Pulse 94 04/27/2025 10:00 AM CDT Temperature 36.4 C (97.6 F) 04/27/2025 10:00 AM CDT Respiratory Rate 17 01/10/2024 3:30 AM CDT Oxygen Saturation 98% 04/27/2025 10: 00 AM CDT Inhaled Oxygen Concentration - - Weight 159.6 kg (351 lb 12.8 oz) 2024 10:00 AM CDT Height 195.6 cm (6' 5.01) 04/27/2025 1 0:00 AM CDT Body Mass Index 41.71 04/27/2025 10:00 AM CDT Plan of Treatment Health Maintenance Due Date Last Done Comments Colon Cancer Screening-Colonoscopy 1955 Hepatitis C Screening 1955 Prostate Cancer Screening-PSA 1955 Hepatitis B Screening 12/27/1973 Zoster Vaccine (2 of 3) 06/10/2019 04/15/2019, 12/03 Well Visit 65+ 12/27/2020 Depression Screening 06/07/2021 06/07/2020, 06/07/20 Fall Risk Assessment 01/09/2025 01/10/2024 Influenza Vaccine (#1) 2025 , 07/06/2022, 07/07/2021, Additional history exists DTaP/Tdap/Td Vaccine (2 - Td or Tdap) 08/22/2025 08/22/2015 Pneumococcal vaccine 65+ Completed 05/04/2022, 02/04 Medical Devices Implanted Type Area Custodial Officer Device Identifier Shelf Expiration Date Model / Serial / Lot [employer] Petros Synergy Xd 4mm 48mm System Coronary Stent Everolimus [id number] - [id number] - [id number] Implanted:Qty: 1 on 04/25/2022 by Kam Adamson MD at [facility] Stent Right: Coronary Artery [place] [employer] Petros 07/04/2023 [id number] / [id number] / [id number] Insurance UHC MEDICARE ADVANTAGE [facility] MED[facility] Address: [address] [address] [place] [address] AETNA MEDICARE GOLD [employer] [facility] MDCR HMO REF [facility] MED[facility] Address: [address] [address] [place] [address] AETNA MEDICARE GOLD Advance Directives For more information, please contact: [phone] * Full Code (Latest Code Status on File) Date Activated Date Inactivated Comments 01/09/2024 2:20 PM 01/10/2024 3:26 PM * Full Code Date Activated Date Inactivated Comments 04/25/2022 5:48 PM 04/26/2022 1:03 AM * Full Code Date Activated Date Inactivated Comments 11/30/2019 1:02 PM 11/30/2019 8:23 PM Care Teams Melter Helper Relationship Specialty Start Date End Date Gianluca Price MD PCP - General 06/18/17 Ayden Corona DO [address] [address] Referring Physician Surgery 10/29/22 Roberto Medley MD [phone] [place] [address] Surgeon Colon and Rectal Surgery 11/23/22
--- OUTSIDE RECORDS SUMMARY | 2025-06-14 10:24 | XMS_ITS | Encounter Summary ---
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
--- OUTSIDE RECORDS SUMMARY | 2025-06-14 10:24 | XMS_ITS | Encounter Summary ---
Author Organization [facility] Address [address] [place] [address] Phone Care Team Providers Care Classification And Treatment Director Name Role Phone Gianluca Price MD Primary Care Provider Ayden Corona DO Unavailable [phone] Roberto Medley MD Unavailable [phone] Encounter Details Date Type Department Care Team (Late st Contact Info) Description 08/20/2018 Telephone [facility] Cardiology [address] [facility] 8th [place] [address] [place] [address] Hussain Mitchell MD [address] [place] [address] Social History Tobacco Use Types Packs/Day Years Used Date Smoking Tobacco: Never Smokeless Tobacco: Never Sex and Gender Information Value Date Recorded Sex Assigned at Not on file 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
--- NOTE | 2025-06-14 10:40 | NEURO_ITS ---
Impression: # Complains of left hand numbness. ? # No Carpal Tunnel Syndrome. ? # Left Ulnar Neuropathy across the elbow. ? # Needle/ EMG exam neurogenic. ? Nerve Conduction Studies ?Stim Site NR Peak (ms) P-T Amp (?V) Site1 Site2 Delta-P (ms) Dist (cm) Donny (m/s) Left Median Anti Sensory (2-3nd Digit) Wrist ? 3.8 23.7 Wrist 2-3nd Digit 3.8 14.0 37 Wrist ? 3.8 22.1 Wrist 2-3nd Digit 3.8 14.0 37 Left Radial Anti Sensory (Base 1st Digit) Wrist ? 2.0 11.6 Wrist Base 1st Digit 2.0 0.0 Left Ulnar Anti Sensory (5th Digit) Wrist ? 3.1 19.0 Wrist 5th Digit 3.1 14.0 45 ?Stim Site NR Onset (ms) O-P Amp (mV) Site1 Site2 Delta-0 (ms) Dist (cm) Donny (m/s) Left Median Motor (Abd Poll Brev) Wrist ? 3.8 1.1 Elbow Wrist 6.3 36.0 57 Elbow ? 10.1 1.0 Left Ulnar Motor (Abd Dig Minimi) Wrist ? 2.8 4.5 A Elbow Wrist 8.1 36.0 44 A Elbow ? 10.9 3.9 B Elbow Wrist 5.3 26.0 49 B Elbow ? 8.1 3.2 F Wave Studies ?NR F-Lat (ms) L-R F-Lat (ms) Left Median (Mrkrs) (Abd Poll Brev) ? 33.59 Left Ulnar (Mrkrs) (Abd Dig Min) ? 35.36 Electromyography ?Side Muscle Nerve Root Ins Act Fibs Amp Dur Recrt Comment Left 1stDorInt Ulnar C8-T1 Nml Nml Nml >12ms +2 Left Ext Indicis Radial (Post Int) C7-8 Nml Nml Nml Nml Nml Left Ext Digitorum Radial (Post Int) C7-8 Nml Nml Nml Nml Nml Left BrachioRad Radial C5-6 Nml Nml Nml Nml Nml Left PronatorTeres Median C6-7 Nml Nml Nml Nml Nml Left Abd Poll Brev Median C8-T1 Nml Nml Nml Nml Nml Left ABD Dig Min Ulnar C8-T1 Nml Nml Nml >12ms +2 Left FlexPolLong Median (Ant Int) C7-8 Nml Nml Nml Nml Nml Left Abd Poll Long Radial (Post Int) C7-8 Nml Nml Nml Nml Nml
== END 2025-06-14 10:04 | disposition home or self-care (01) ==
PROVIDERS: PCP Internal Medicine; Visit Provider Orthopaedic Surgery
DX: R20.0 Anesthesia of skin (principal); R20.2 Paresthesia of skin
CPT/HCPCS: 95886; 95909

== ENCOUNTER 2025-07-24 20:15 | Emergency (ER) | payer MEDICARE, SELFPAY ==
--- OUTSIDE RECORDS SUMMARY | 2022-02-01 05:50 | XMS_ITS | Continuity of Care Document ---
Author Organization [facility] Address [address] [place] [address] Phone Care Team Providers Care Corrosion Control Engineer Name Role Phone Maryjane Segura MD Unavailable Unavailable Allergies, Adverse Reactions, Alerts Substance Reaction Status Criticality No Known Allergies Active No Inform ation Medications Medication Instructions Dosage Effective Dates (start - stop) Status Comments hydrocodone 5 mg-acetaminophen 325 mg tablet take 1 tablet by oral route every 8 hours as needed for pain 1 tablet - Active tramadol 50 mg tablet take 1 tablet by oral route every 12 hours as needed 50 MG - Active spironolactone 25 mg tablet take 1 tablet by oral route every day 25 MG - Active quinapril 40 mg tablet take 1 tablet by oral route every day 40 MG - Active niacin ER 500 mg capsule,extended release take 1 capsule by oral route every day 500 MG - Active hydrochlorothiazide 25 mg tablet take 1 tablet by oral route every day 25 MG - Active furosemide 20 mg tablet take 1 tablet by oral route every day 20 MG - Active Effer-K 20 mEq effervescent tablet take 1 tablet by oral route 4 times every day dissolved in 3-4 ounces of cold juice or ice water and then drink 20 MEQ - Active carvedilol 6.25 mg tablet take 1 tablet by oral route 2 times every day with food 6.25 MG - Active atorvastatin 40 mg tablet take 1 tablet by oral route every day 40 MG - Active Aspirin Low Dose 81 mg tablet,delayed release take 1 tablet by oral route every day 81 MG - Active amlodipine 5 mg tablet take 1 tablet by oral route every day 5 MG - Active allopurinol 300 mg tablet take 1 tablet by oral route every day 300 MG - Active Procedures Procedure Date OFFICE [id number] POSTOPERATIVE FOLLOW-UP VISIT, INCLUDED IN [facility] POSTOPERATIVE FOLLOW-UP VISIT, INCLUDED IN [facility] Xray Exam, Hip, Unilat, Two Or Three Vie ws POSTOPERATIVE FOLLOW-UP VISIT, INCLUDED IN [facility] POSTOPERATIVE FOLLOW-UP VISIT, INCLUDED IN [facility] TOTAL HIP ARTHROPLASTY Xray Exam, Hip, Unilat, Two Or Three Vie ws OFFICE [id number] POSTOPERATIVE FOLLOW-UP VISIT, INCLUDED IN [facility] POSTOPERATIVE FOLLOW-UP VISIT, INCLUDED IN [facility] Xray Exam, Hip, Unilat, Two Or Three Vie ws POSTOPERATIVE FOLLOW-UP VISIT, INCLUDED IN [facility] TOTAL HIP ARTHROPLASTY OFFICE [id number] Advance Directives Directive Yes / No Effective Date File Name No Information Encounters Encounter Description Practice Location Reason(s) For Visit Diagnoses Date Provider Providers Copied on Encounter OFFICE [id number] ANDED [facility], [address], [place], [place], [address], tel:[phone] [facility] RIGHT HIP (chief complaint) Primary osteoarthritis of right hip [address], [place], [address] , . tel:[phone] Referring Provider: [address], [place], [address] . tel:[phone] [facility], [address], [place], [place], [address], tel:[phone] [facility] RIGHT HIP (chief complaint) Status post total replacement of right hip 2 [address], [place], [place], [address] , . tel:[phone] Referring Provider: H[address], [place], [address] . tel:[phone] [facility], [address], [place], [place], [address], tel:[phone] [facility] Right Hip (chief complaint) Status post total replacement of right hip [facility]. [address], [place], [place], [address] , . tel:[phone] Referring Provider: Maryjane Segura, [address], [place], [address] . tel:[phone] [facility], [address], [place], [place], [address], tel:[phone] [facility] No Information [facility]. [address], [place], [place], [address] , . tel:[phone] Referring Provider: Maryjane Segura, [address], [place], [address] . tel:[phone] OFFICE [id number] ELLEN [facility], [address], [place], [place], [address], tel:[phone] [facility] Right Hip (chief complaint) Primary osteoarthritis of right hip [facility]. [address], [place], [place], [address] , [place]. tel:[phone] Referring Provider: Maryjane Segura, [address], [place], [address] . tel:[phone] [facility], [address], [place], [place], [address], tel:[phone] [facility] Telehealth (chief complaint) Status post total hip replacement, left [facility]. [address], [place], [place], [address] , [place]. tel: [phone] Referring Provider: Maryjane Segura, [address], [place], [address] . tel:[phone] [facility] [address], [place], [place], [address], tel:[phone] [facility] Left Hip (chief complaint) Status post total hip replacement, left [facility]. [address], [place], [place], [address] , [place]. tel: [phone] Referring Provider: Maryjane Segura, [address], [place], [address] . tel:[phone] [address], [place], [place], [address], tel:[phone] [facility] No Information [address] [place] [address]. [address], [place], [place], [address] , [place]. tel: [phone] Referring Provider: Maryjane Segura, [address], [place], [address] . tel:[phone] [facility] [address], [place], [place], [address], tel:[phone] [facility] No Information [address] [place] [address]. [address], [place], [place], [address] , [place]. tel: [phone] OFFICE [id number] ELLEN [facility], [address], [place], [place], [address], [place] tel:[phone] [facility] Left Hip (chief complaint) Primary osteoarthritis of left hip 0 [facility]. [address], [place], [place], [address] , . tel: [phone] Referring Provider: [address], [address] . tel:[phone] Family History Family Member Type Diagnosis Age At Onset Problem (finding) Myocardial infarction Problem (finding) Family history of coronary arteriosclerosis Problem (finding) Family history of hyper tension Payers Payer name Insurance type Covered constitution party ID Authoreamon ly(s) [facility] [facility] COMPLETE HMO [place] [id number] Social History Type Description Quantity Date Captured Comments Alcohol Use Details > 5 glasses weekly 022 Caffeine Use Details Unknown Tobacco Use Status Current non-smoker Smoking Status Never smoker Sex Male Sexual Orientation Straight or heterosexual Gender Identity Male Chief Complaint And Reason For Visit From encounter dated '02/01/2022 10:50'. RIGHT HIP (chief complaint). Description: here for exam and eval right thr now 5 months postop and feeling great without pain or problems plan continue full acitivyt fu as needed Reason For Referral Reason For Referral No Information Plan Of Treatment Date Type Action Status Referral Ordered: Xray Exam, Hip, Unilat, Two Or Three Views Right ordered Referral Ordered: Xray Exam, Hip, Unilat, Two Or Three Views Left ordered History Of Present Illness Encounter Date Complaint History Of Prese nt Illness RIGHT HIP here for exam an d eval right thr now 5 months postop and feeling great without pain or problems plan continue full acitivyt fu as needed RIGHT HIP 5 weeks postop r ight thr and doing very well without pain or problems plan continue exercise and full activity fu check 3 months Right Hip first post op ri gh t thr and doing very well with minimal pain and no problems xrays good position and fixation plan continue home exercises fu 5 weeks Right Hip 5 plus year of p rogressive right hip and groin daily 8/10 stabbing pain. No longer relieved by NSAIDs, 6 months of physician, home exercise program and therapy and with loss of function and ability to stand, walk, stoop, bend or climb. Left THR doing well - painless. X-rays - advanced DJD right hip, Kellgren-Gianluca grade 4, with joint space loss, osteophytes and femoral head deformity. Impression - advanced DJD right hip.Plan - right total hip. PATIENT SCHEDULED FOR R THR SX 09-13-21. PRE & POST OP INSTRUCTIONS GIVEN TO PATIENT. Telehealth PT CONFIRMED TEL [employer] CHARGES - 1:12-1:14Telemedicine call- 2 months post op thr and doing great without pain or problems and walking without assistive device.No questions. Plan - continue exercises and advancement to full activity. F/U or call in 2 months. Left Hip First post-op le ft THR and doing very well without pain or problems. X-rays - good position and fixation left THR.Plan - continue exercises and full WB. F/U 4-6 weeks for check. Left Hip Riana brother w ith 10 years of progressive left groin and hip pain 8/10, sharp/stabbing, daily and constant, and no longer helped by NSAIDs and therapy. Pain is limiting his ability to stand, walk, sleep, exercise, climb and work. HX of bilateral TKR. X-rays - advanced DJD of left hip.Reviewed options. Plan is left THR.PATIENT T.B.S. FOR SX OF L THR AFTER CLEARED. PRE & POST OP INSTRUCTIONS GIVEN. Functional Status Date Functional Assessmen t No Information Instructions Date Instruction Additional Infor roly right thr doing well 5 moths psotp ok full activity fu as needed Related to Primary osteoarthritis of right hip Disease process doing well 5 weeks p ostop fu 3 months Related to Status post total replacement of right hip Disease process painless rom and gai t and doing very well at first postop visit fu 5 weeks Related to Status post total replacement of right hip Disease process Advanced DJD right h ip with pain, loss of function and failure of conservative care Plan - right total hip The patient has clinical and radiographic evidence of degenerative joint disease of the hip. It is causing pain, limp and dysfunction including but not limited to an inability to walk, climb stairs, travel and perform hygiene and activities of daily living. The disease has not responded to conservative measures including but not limited to rest, ice/heat, NSAIDs, exercise therapy. The patient understands the natural history of the disease. The patient was given a review of the treatment options including continued non-surgical versus surgical treatment. The patient understands to the indications, risks and potential complications of each treatment option and having failed conservative treatment now wishes to proceed with surgical total hip replacement. I concur. Related to Primary osteoarthritis of right hip Disease process Continue exercises and activity Related to Status post total hip replacement, left Disease process Doing well Ok contin ue home exercise and therapy F/U 4-6 weeks Related to Status post total hip replacement, left Disease process Reviewed findings an d treatment options. Advanced DJD left hip with joint space loss and osteophytes, Kellgren-Gianluca grade 4. Heat, gentle ROM and physician directed home exercises.Plan is left THRThe patient has clinical and radiographic evidence of degenerative joint disease of the hip. It is causing pain, limp and dysfunction including but not limited to an inability to walk, climb stairs, travel and perform hygiene and activities of daily living. The disease has not responded to conservative measures including but not limited to rest, ice/heat, NSAIDs, exercise therapy. The patient understands the natural history of the disease. The patient was given a review of the treatment options including continued non-surgical versus surgical treatment. The patient understands to the indications, risks and potential complications of each treatment option and having failed conservative treatment now wishes to proceed with surgical total hip replacement. I concur. Related to Primary osteoarthritis of left hip Disease process Assessments Type Assessment Date assessment Primary osteoarthritis of right hip Mental Status Date Cognitive Assessment Orientation - Kimmell ed to time, place, person, situation. Patient Care Teams Name Effective Dates (start - stop) Status Members No Information
--- NOTE | ~2025-07-24 | CT_ITS ---
EXAMINATION: CT brain wo con DATE: 07/24/2025 22:50 INDICATION: Head injury. TECHNIQUE: Computed tomography (CT) of the head was performed without intravenous contrast. The mA was adjusted according to patient size. Iterative reconstruction technique was employed. The dose-length product was 681.00 mGy-cm. COMPARISON: None FINDINGS: There is no intracranial hemorrhage, acute infarction, or abnormal intracranial mass lesion. The ventricles are normal in size. The orbits are normal. There is mucosal thickening in the paranasal sinuses. There is thickening and sclerosis of the mccarthy of left maxillary sinus, consistent with chronic sinusitis. The mastoid air cells are normal. IMPRESSION: 1. Normal aging brain. 2. Chronic left maxillary sinusitis. Reviewed, dictated and finalized at location E.
--- NOTE | ~2025-07-24 | CT_ITS ---
EXAMINATION: CT thoracic lumbar wo con DATE: 07/24/2025 22:50 INDICATION: Back pain. Fall. TECHNIQUE: Computed tomography (CT) of the thoracic and lumbar spine was performed without intravenous contrast. Automated exposure control and iterative reconstruction technique were employed. The dose-length product was 2098.23 mGy-cm. COMPARISON: None FINDINGS: CT THORACIC SPINE: Left thyroid lobe is enlarged and heterogeneous. There is 8 degrees dextrocurvature of thoracic spine. There is kyphosis of thoracic spine. There is mild chronic anterior wedging of T5-T12 vertebral bodies. There are bridging endplate osteophytes from T4 to T11, consistent with diffuse idiopathic skeletal hyperostosis (DISH). There is mild to moderately decreased disc height at many levels. There is multilevel severe facet joint osteoarthritis. There is mild neural foraminal stenosis at most levels on either side. There is mild central canal stenosis at T1-T2. CT LUMBAR SPINE: There is 4 mm anterolisthesis of L3 on L4. There are changes of posterior fusion procedure from L3 to L5 with pedicle screws. There is a fracture involving the L1 vertebral body, left pedicle, and left inferior facet with 2.0 cm distraction anteriorly. There is severely decreased disc height at L1-L2, L2-L3, and L3-L4, moderately decreased disc height at L4-L5, and severely decreased disc height at L5-S1. There is mild neural foraminal stenosis at multiple levels on either side. On the left, there is moderate neural foraminal stenosis at L2-L3 and L5-S1. There is mild central canal stenosis at L1-L2, moderate central canal stenosis at L2-L3 and L3-L4 and L4-L5, and mild neural foraminal stenosis at L5-S1. There is posterior decompression at L3-L4. IMPRESSION: 1. Fracture involving L1 vertebral body and posterior elements with up to 2.0 cm distraction anteriorly. 2. Thoracic DISH. 3. Posterior fusion procedure from L3 to L5. 4. Mild thoracic spondylosis and severe lumbar spondylosis. Reviewed, dictated and finalized at location E. IMPRESSION: 1. Fracture involving L1 vertebral body and posterior elements with up to 2.0 c m distraction anteriorly. 2. Thoracic DISH. 3. Posterior fusion procedure from L3 to L5. 4. Mild thoracic spondylosis and severe lumbar spondylosis.
--- NOTE | ~2025-07-24 | CT_ITS ---
EXAMINATION: CT cervical spine wo con DATE: 07/24/2025 22:50 INDICATION: Fall. TECHNIQUE: Computed tomography (CT) of the cervical spine was performed without intravenous contrast. Automated exposure control and iterative reconstruction technique were employed. The dose-length product was 599.94 mGy-cm. COMPARISON: None FINDINGS: Left thyroid lobe lobe is enlarged and heterogeneous. There is 8 degrees levocurvature of cervical spine. There is 2 mm anterolisthesis of C4 on C5. Vertebral body heights are normal. There is severely decreased disc height at C3-C4, mildly decreased disc height at C4-C5, severely decreased disc height at C5-C6, and moderately decreased disc height at C6-C7. There is multilevel severe uncovertebral joint and facet joint osteoarthritis. There is mild neural foraminal stenosis at multiple levels on either side. On the right, there is moderate neural foraminal stenosis at C3-C4 and C5-C6. There is moderate central canal stenosis at C3-C4. There is mild central canal stenosis at C4-C5, C5-C6, and C6-C7. IMPRESSION: 1. No fracture. 2. Severe cervical spondylosis. Reviewed, dictated and finalized at location E.
[2025-07-24 20:21] VITALS: BP 127/85; PULSE 87; RESP 14; TEMP 36.6; O2SAT 95
[2025-07-24] MEDS: MORPHINE SULFATE (*CRX) 4 MG/ML INJ IV PUSH (21:05)
[2025-07-24] MEDS: ONDANSETRON INJ 4 MG/2 ML VIAL IV PUSH (21:05)
[2025-07-24 21:11] VITALS: BP 131/83; PULSE 80; RESP 14; O2SAT 100
[2025-07-24 21:16] VITALS: BP 116/74; PULSE 74; RESP 17; O2SAT 99
--- OUTSIDE RECORDS SUMMARY | 2025-07-24 21:18 | XMS_ITS | Encounter Summary ---
Author Organization [facility] Address [address] [place] [address] Phone Care Team Providers Care Watchstander Name Role Phone Gianluca Price MD Primary Care Provider Ayden Corona DO Unavailable [phone] Roberto Medley MD Unavailable [phone] Encounter Details Date Type Department Care Team (Late st Contact Info) Description 08/20/2018 Telephone [facility] Cardiology [address] [facility] 8th [place] [address] [place] [address] Hussain Mitchell MD [address] [place] [address] Social History Tobacco Use Types Packs/Day Years Used Date Smoking Tobacco: Never Smokeless Tobacco: Never Sex and Gender Information Value Date Recorded Sex Assigned at Not on file 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
--- OUTSIDE RECORDS SUMMARY | 2025-07-24 21:18 | XMS_ITS | Clinical Summary ---
Author Organization [facility] Address [address] [place] [address] Care Team Providers Care Inspection Supervisor Name Role Phone Gianluca Price MD Primary Care Provider [phone] Source Comments [facility],non-owned Affiliates and Associated Physician Practices is amultiple site organization consisting of ambulatory clinics and hospital sitesin [place], [place], [place] and [place]. This disclosure is being madepursuant to the Care Everywhere program and may not contain all information available regarding this patient. 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 Gender Identity Not on file Sexual Orientation Not on file Last Filed Vital Signs Vital Sign Reading Time Taken Comments Blood Pressure 149/93 09/16/2021 7:19 AM SUPERVISOR DATA PROCESSING Pulse 89 09/16/2021 7:19 AM SUPERVISOR DATA PROCESSING Temperature 36.3 C (97.3 F) 09/16/2021 7:19 AM SUPERVISOR DATA PROCESSING Respiratory Rate 17 09/16/2021 7:19 AM SUPERVISOR DATA PROCESSING Oxygen Saturation 99% 09/16/2021 7:19 AM SUPERVISOR DATA PROCESSING Inhaled Oxygen Concentration - - Weight 159.6 kg (351 lb 12.8 oz) 09/13/2021 7:45 AM SUPERVISOR DATA PROCESSING Height 195.6 cm (6' 5) 09/13/2021 7:45 AM SUPERVISOR DATA PROCESSING Body Mass Index 41.72 09/13/2021 7:45 AM SUPERVISOR DATA PROCESSING Plan of Treatment Health Maintenance Due Date [...] - Risk 60-74 years 1-dose series) 2015 DEPRESSION SCREENING 10/07/2024 MEDICARE AWV CALENDAR YEAR 2024 COVID-19 VACCINE ( season) 2025 08/02/2021, 12/08/2020 INFLUENZA VACCINE (#1) 2025 , 06/28/2021, 06/27/2020, [...] this topic Medical Devices Implanted Type Area Python Java Developer Device Identifier Shelf Expiration Date Model / Serial / Lot Screw 6.5mm 35mm Dome Hip Actb Canc Implanted:Qty: 1 on 12/22/2019 by Maryjane Segura MD at [facility] Left: Hip [employer] 09/14/2026 [id number] / / [id number] Shell Actb 58mm Hip Lmt Hl Rnglc+ Implanted:Qty: 1 on 12/22/2019 by Maryjane Segura MD at [facility] Left: Hip [employer] 08/08/2029 [id number] / / [id number] Acetabular Liner E1 Antioxidant Infused 36mm Head Size Liner Size 25 Implanted:Qty: 1 on 12/22/2019 by Maryjane Segura MD at [facility] Left: Hip [employer] 09/12/2023 [id number] / / [id number] Standard Femoral Stemsize 12 X 140mm Implanted:Qty: 1 on 12/22/2019 by Maryjane Segura MD at [facility] Left: Hip [employer] 07/31/2029 [id number] / / [id number] Head Fem 36mm Hip Blx D Optn G7 Implanted:Qty: 1 on 12/22/2019 by Maryjane Segura MD at [facility] Left: Hip [employer] 08/28/2028 [id number] / / [id number] Slv Centering G7 +3mm Ofst Tpr Hip Ti Ty Implanted:Qty: 1 on 12/22/2019 by Maryjane Segura MD at [facility] Left: Hip [employer] 09/23/2028 [id number] / / [id number] Head Fem 36mm Hip Blx D Optn G7 Implanted:Qty: 1 on 09/13/2021 by Maryjane Segura MD at [facility] Right: Hip [employer] 01/10/2031 [id number] / / [id number] Slv Centering G7 Std Ofst Tpr Hip Ti Ty Implanted:Qty: 1 on 09/13/2021 by Maryjane Segura MD at [facility] Right: Hip [employer] 03/16/2031 [id number] / / [id number] Stem Fem 11mm 135mm Hip 135d Std Ofst Implanted:Qty: 1 on 09/13/2021 by Maryjane Segura MD at [facility] Right: Hip [employer] 03/10/2031 [id number] / / [id number] Self Tapping Bone Screw 6.5 X35mm Implanted:Qty: 1 on 09/13/2021 by Maryjane Segura MD at [facility] Right: Hip 06/20/2031 / / [id number] High Wall Loaner Implanted:Qty: 1 on 09/13/2021 by Maryjane Segura MD at [facility] Right: Hip 05/20/2026 [id number] / / [id number] Shell Actb 54mm Hip Lmt Hl Clr Cd Pps G7 Implanted:Qty: 1 on 09/13/2021 by Maryjane Segura MD at [facility] Right: Hip [employer] 05/19/2031 [id number] / / [id number] Insurance [facility] MEDICARE ADV AETNA MEDICARE ADV SELF PAY NO INSURANCE Member Subscriber Plan / Payer (Ef fective for All Dates) Name:Lian Anderson Member ID:Not on file Relation to Subscriber:Not on file Name:LIAN ANDERSON Subscriber ID:Not on file (Home) Address: [address] [place] [id number] Payer ID:Not on file Group ID:Not on file Type:Self Pay Address: [place], [place] [facility] MANAGED MEDICARE ADV Advance Directives * Full Code (Latest Code Status on File) Date Activated Date Inactivated Comments 09/13/2021 2:02 PM 09/16/2021 1:57 PM * Full Code Date Activated Date Inactivated Comments 12/22/2019 3:46 PM 12/25/2019 4:57 PM Care Teams Inspection Supervisor Relationship Specialty Start Date End Date Gianluca Price MD [address] [place] [address] [address] [place] [address] PCP - General Internal Medicine 08/29/21
--- OUTSIDE RECORDS SUMMARY | 2025-07-24 21:18 | XMS_ITS | Encounter Summary ---
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 [address] [place] [address] Referring Physician Surgery 10/29/22 Roberto Medley MD [phone] [place] [address] Surgeon Colon and Rectal Surgery 11/23/22 documented as of this encounter
--- OUTSIDE RECORDS SUMMARY | 2025-07-24 21:18 | XMS_ITS | Encounter Summary ---
Author Organization [facility] Address [address] [place] [address] Phone Care Team Providers Care Resource Center Teacher Name Role Phone Gianluca Price MD Primary Care Provider Ayden Corona DO Unavailable [phone] Roberto Medley MD Unavailable [phone] Encounter Details Date Type Department Care Team (Late st Contact Info) Description 01/18/2021 Telephone [facility] Cardiology [address] [facility] [address] Advanced Medicine 8th [place] [address] [place] [address] rAi Bradley MD [address] [facility] [address] [place] [address] Social History Tobacco Use Types [...] on file 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 Gender Identity Not on file Sexual Orientation Not on file Occupation Industry Job Start Date Job End Date Retired Not on file Not on file Not on file documented as of this encounter Plan of Treatment Not on file documented as of this encounter Visit Diagnoses Not on filedocumented in this encounter Care Teams Resource Center Teacher Relationship Specialty Start Date End Date Gianluca Price MD PCP - General 06/18/17 Ayden Corona DO [address] [facility] [address] [place] [address] Referring Physician Surgery 10/29/22 Roberto Medley MD [phone] [place] [address] Surgeon Colon and Rectal Surgery 11/23/22 documented as of this encounter
--- OUTSIDE RECORDS SUMMARY | 2025-07-24 21:18 | XMS_ITS | Clinical Summary ---
Author Organization [facility] Address [address] [place] [address] Care Team Providers Care Straightening Press Operator Name Role Phone Gianluca Price MD Primary Care Provider [phone] Allergies Active Allergy Reactions Criticality Noted Date Comments Rosuvastatin Myalgias Medium 06/30/2019 Medications CPAP MACHINE CPAP11 CM HS use while [id number] ohan, VentrapragadaActive Activ e carvedilol 6.25 MG [...] 04/19/20 22 Active Cholecalcifer ol 250 MCG (79123 UT) Cap Take 10,000 Units by mouth [...] Shortness of breath 10/19/2015 Essential hypertension 10/19/2015 Encounters Date Type Department Care Team Description 06/17/2025 10:20 AM CDT Office Visit [facility] Multispecialty Care - [facility] [address] [facility] [place] [address] Shola Cunha MD Follow Up 06/17/2025 Travel 06/16/2025 Scan [facility] SRVCS Scanned, Doc [facility] Sleep Study (SCAN) from Last 3 Months Immunizations Immunization Administration Dates Next Due COVID-19 Vaccine (Generic) 07/06/2022,01/05/2021 ,12/08/2020 Fluzone 6 Months+ Quad (0.5 mL Prefilled Syringe) 06/27/2020 Influenza (Generic) 07/06/2022 Influenza Adult (Generic) 07/07/2021,06/27/2020, 09/05/2018 MODERNA COVID-19 (12+) MRNA, LNP-S, PF, 100 MCG/ 0.5 ML DOSE 12/08/2020 PFIZER COVID-19 (CHILD 6M-4Y ), MRNA [place]-SUCROSE, 3 MCG/0.2ML DOSE 08/09/2021 Pneumococcal (Pneumovax 23) 05/04/2022 Pneumococcal (Prevnar 13) 02/21/2021 Tdap (Generic) 08/22/2015 Zoster (Zostavax) 51807 Unt/0.65Ml 04/15/2019, Family History Medical History Relation [...] Sign Reading Time Taken Comments Blood Pressure 107/68 06/17/2025 10:35 AM CDT Pulse 85 06/17/2025 10:20 AM CDT Temperature 36.9 C (98.4 F) 12/20/2023 11:31 AM CDT Respiratory Rate 18 06/17/2025 10:20 AM CDT Oxygen Saturation 98% 06/17/2025 10:20 AM CDT RA Inhaled Oxygen Concentration - - Weight 159.7 kg (352 lb) 06/17/2025 10:20 AM CDT Height 193 cm (6' 4) 06/17/2025 10:20 AM CDT Body Mass Index 42.85 06/17/2025 10:20 AM CDT Plan of Treatment Upcoming Encounters Date Type Department Care Team (Late st Contact Info) Description 06/23/2026 10:00 AM CDT Office Visit [facility] Medical [facility] Multispecialty Care - [facility] [address] [facility] [place] [id number] Shola Cunha MD [address] [facility] [address] [place] [address] Health Maintenance Due Date Last Done Comments ASCVD LDL 1955 Colorectal Cancer Screening Colonoscopy (10 Years) 1955 Hepatitis C 12/27/1973 RSV Immunization or 60+ Years (1 - Risk 60-74 years 1-dose series) 2015 Zoster Vaccines (2 of 3) 06/10/2019 04/15/2019, 11/08 Annual Medicare Wellness Visit 12/27/2020 PHQ-2 (Physician [place]) 10/07/2024 12/20/2023 COVID-19 Vaccine ( season) 2025 07/06/2022, 08/09/2021, 01/05/2021, Additional history exists Influenza Adult (#1) 2025 07/06/2022, 07/07/2021, 06/27/2020, Additional history exists DTaP, Tdap and Td Vaccines (2 - Td or Tdap) 08/22/2025 08/22/2015 Pneumococcal Vaccine: 50+ Years Completed 05/04/2022, 02/21/2021 Meningococcal B Vaccine Aged Out No l onger eligible based on patient's age to complete this topic Meningococcal Vaccine Aged Out No wyatt lynnette eligible based on patient's age to complete this topic RSV Immunizations Under 20 Months Aged Out No longer eligible based on patient's age to complete this topic Procedures Procedure Name Priority Date/Time Associated Diagnosis Comments SLEEP STUDY GENERIC (SCAN ORDER) 06/16/2025 from Last 3 Months Results * SLEEP STUDY GENERIC (SCAN ORDER) (06/16/2025) 06/16/2025 us [facility] Scanned SCANNING Final Resu lt from Last 3 Months Insurance [facility] MEDICARE AET MEDICARE Care Teams Straightening Press Operator Relationship Specialty Start Date End Date Gianluca Price MD [address] [facility] [address] [place] [id number] PCP - General INTERNAL MEDICINE 09/04/18
--- NOTE | 2025-07-24 21:43 | ED.FALL ---
HPI - Fall General Chief Complaint: Fall <Kia Gipson PA-C - Last Filed: 07/25/25 00:34> Stated Complaint: FALL <Kia Gipson PA-C - Last Filed: 07/25/25 00:34> Time Seen by Provider: 07/24/25 20:42 <Kia Gipson PA-C - Last Filed: 07/25/25 00:34> Source: patient <Kia Gipson PA-C - Last Filed: 07/25/25 00:34> Mode of arrival: EMS <Kia Gipson PA-C - Last Filed: 07/25/25 00:34> Limitations: no limitations <ADAM Kaiser Last Filed: 07/25/25 00:34> History of Present Illness HPI Narrative: This is a 69 year old male that presents to the ER for back pain. Reports he slipped and fell onto his back. Reports he has not been able to move his feet. Having numbness, tingling to the bilateral lower extremities. Unable to ambulate. He does not believe he hit his head. He did not lose consciousness. Patient is on anticoagulation. Reports previous lumbar spine surgery. Denies saddle anesthesia, bowel/bladder incontinence. <Kia Gipson PA-C - Last Filed: 07/25/25 00:34> Related Data Home Medications: Home Medications ?Medication ?Instructions ?Recorded ?Confirmed ?Last Taken ?Type allopurinol 300 mg tablet 300 mg PO DAILY 11/07/20 03/25/25 09/27/24 History apixaban 5 mg tablet (Eliquis) 5 mg PO DAILY 11/07/20 03/25/25 09/25/24 History atorvastatin 40 mg tablet 40 mg PO DAILY 11/07/20 03/25/25 09/27/24 History carvedilol 6.25 mg tablet 6.25 mg PO BID 11/07/20 03/25/25 09/27/24 History cholecalciferol (vitamin D3) 25 50 mcg PO DAILY 11/07/20 03/25/25 09/27/24 History mcg (1,000 unit) capsule clopidogrel 75 mg tablet 75 mg PO DAILY 11/07/20 03/25/25 09/23/24 History furosemide 20 mg tablet 20 mg PO DAILY 11/07/20 03/25/25 09/27/24 History aithvwkg-niobtpzm-wispj acid 400 1 tablet PO DAILY 11/07/20 03/25/25 09/27/24 History mcg-vit K 20 mcg-lycop 300 mcg tablet (Men's Multivitamin) potassium chloride 20 mEq 20 meq PO DAILY 11/07/20 03/25/25 09/27/24 History tablet,extended release(part/cryst) dapagliflozin propanediol 5 mg 5 mg PO DAILY 09/17/22 03/25/25 09/27/24 History tablet (Farxiga) sacubitril 24 mg-valsartan 26 mg 1 tablet PO BID 09/17/22 03/25/25 09/27/24 History tablet (Entresto) <Kia Gipson PA-C - Last Filed: 07/25/25 00:34> Allergies/Adverse Reactions: Allergies Allergy/AdvReac Type Severity Reaction Status Date / Time rosuvastatin (From Crestor) AdvReac Abdominal Verified 06/29/25 07:57 Pain <Kia Gipson PA-C - Last Filed: 07/25/25 00:34> Review of Systems Review of Systems: All systems reviewed & are unremarkable except as noted in HPI and below <Kia Gipson PA-C - Last Filed: 07/25/25 00:34> FORMERLY [facility] Past Medical History Medical History: Medical History Adenomatous colon polyp Atrial fibrillation Coronary artery disease Hyperlipidemia Hypertension <Kia Gipson PA-C - Last Filed: 07/25/25 00:34> Surgical History Surgical History: Surgical History History of incision and drainage I&D perirectal abscess 09/17/2022 History of coronary artery stent placement <Kia Gipson PA-C - Last Filed: 07/25/25 00:34> Family History Family History: Family History Other Heart disease Hypertension <Kia Gipson PA-C - Last Filed: 07/25/25 00:34> Social History Social History: Social History (Updated 06/29/25 @ 10:10 by Jennifer Hill [facility]) Smoking status: Never smoker Alcohol intake: current Alcohol use details: once a week Substance use: never Substance use type: does not use Lack of Transportation: No Lack of Food: Never True Current Housing: I Have Housing Concerned About Future Housing: No Difficulty Paying Gas/Electric Bills: No Difficulty Paying for Meds: No Currently Unemployed: No Education: Bachelor's Degree Difficulty w/ Childcare or Family Care: No Living arrangements: with family Gender identity (if verbalized by the patient): Male Spiritual care concerns: No <Kia Gipson PA-C - Last Filed: 07/25/25 00:34> Exam Narrative: GENERAL: Well-appearing, well-nourished, and in no acute distress. HEAD: Normocephalic, atraumatic. EYES: PERRLA and EOMI. ENT: Nares clear, no rhinorrhea or epistaxis. Mucous membranes moist. Oropharynx without tonsillar hypertrophy exudate or other lesions. Bilateral TMs pearly casas non-bulging NECK: Supple. No adenopathy or masses. CHEST: Clear to auscultation. No respiratory distress. No wheezes rales or rhonchi HEART: Regular rate and rhythm. No murmur heard. Normal peripheral pulses. ABDOMEN: Soft, nontender, nondistended, normal active bowel sounds. EXTREMITIES: Normal range of motion in the upper extremities. No edema. Only able to do slight flexion at the knees. Normal DP pulses SKIN: Warm, dry, no rash. NEURO: No focal deficits. Alert and oriented x3. CN II-XII grossly intact PSYCH: Normal mood and affect <Kia Gipson PA-C - Last Filed: 07/25/25 00:34> Course CHIEF ENVIRONMENTAL COMMITMENT OFFICER/PA Physician Supervision I did review the chart I agree with the management <Rohan Olmedo MD - Last Filed: 07/25/25 03:19> Consultations Consultation #1: Spoke with [facility] transfer center, patient is accepted as transfer to [facility] <Kia Gipson PA-C - Last Filed: 07/25/25 00:34> Date: 07/24/25 <Kia Gipson PA-C - Last Filed: 07/25/25 00:34> Vital Signs Vital signs: Vital Signs Temperature 36.6 C 07/24/25 20:21 Pulse Rate 87 07/24/25 20:21 Respiratory Rate 14 07/24/25 20:21 Blood Pressure 127/85 07/24/25 20:21 Pulse Oximetry 95 07/24/25 20:21 Oxygen Delivery Room Air 07/24/25 20:21 Temperature 36.6 C 07/24/25 20:21 Pulse Rate 68 07/25/25 00:16 Respiratory Rate 16 07/25/25 00:16 Blood Pressure 130/99 H 07/25/25 00:16 Pulse Oximetry 95 07/25/25 00:16 Oxygen Delivery Room Air 07/24/25 20:21 <ADAM Kaiser Last Filed: 07/25/25 00:34> Vital Signs Temperature 36.6 C 07/24/25 20:21 Pulse Rate 87 07/24/25 20:21 Respiratory Rate 14 07/24/25 20:21 Blood Pressure 127/85 07/24/25 20:21 Pulse Oximetry 95 07/24/25 20:21 Oxygen Delivery Room Air 07/24/25 20:21 Temperature 36.6 C 07/24/25 20:21 Pulse Rate 68 07/25/25 00:16 Respiratory Rate 16 07/25/25 00:16 Blood Pressure 130/99 H 07/25/25 00:16 Pulse Oximetry 95 07/25/25 00:16 Oxygen Delivery Room Air 07/24/25 20:21 <Rohan Olmedo MD - Last Filed: 07/25/25 03:19> MDM - Fall MDM Narrative Medical decision making narrative: Patient presents to the emergency department after a ground level fall with low back pain, weakness, numbness in the bilateral lower extremities. No saddle anesthesia, bowel/bladder incontinence. Patient with severe weakness in lower extremities. Normal DP pulses. Vitals are stable. Cranial nerves are intact. Patient is on anticoagulation. CT brain, cervical spine, thoracic spine without acute findings. CT of the lumbar spine shows fracture of L1 vertebrae with 1.3 cm distraction of the fracture fragments. Associated posttraumatic soft tissue stranding/hematoma and central canal stenosis. <ADAM Kaiser Last Filed: 07/25/25 00:34> Differential Diagnosis Differential diagnosis: Likely compression fracture, concussion with loss of consciousness, concussion without loss of consciousness and other (subdural hematoma, central canal stenosis, burst fracture) <Kia Gipson PA-C - Last Filed: 07/25/25 00:34> Lab Data Result diagrams: 07/24/25 23:28 07/24/25 23:28 <Kia Gipson PA-C - Last Filed: 07/25/25 00:34> Labs: Lab Results 07/24/25 Range/Units 23:28 WBC 12.5 H (4.5-10.0) K/mm3 RBC 4.77 (4.6-6.20) M/mm3 Hgb 15.1 (14.0-18.0) g/dL Hct 46.0 (42.0-52.0) % MCV 96.4 (80-100) fl MCH 31.7 (26-34) pg MCHC 32.8 (32-36) g/dl RDW 13.0 (11.5-14.5) % Plt Count 205 (150-375) k/mm3 MPV 10.9 H (7.4-10.4) fl Immature Gran % (Auto) 0.6 H (0-0.5) % Neut % (Auto) 83.0 H (45.5-73.1) % Lymph % (Auto) 11.3 L (18.3-44.2) % [place] % (Auto) 4.3 (2.6-8.5) % Eos % (Auto) 0.3 (0-4.4) % Baso % (Auto) 0.5 (0.2-1.2) % Lymph # (Auto) 1.41 (0.9-3.2) K/mm3 [place] # (Auto) 0.5 (0.1-0.6) K/mm3 Eos # (Auto) 0.0 (0-0.3) K/mm3 Baso # (Auto) 0.1 (0.0-0.1) K/mm3 Abs Immat Gran (auto) 0.07 H (0.00-0.031) K/mm3 Absolute Neuts (auto) 10.4 H (1.3-6.7) K/mm3 Absolute Nucleated RBC 0.000 (0.0-0.012) K/mm3 Nucleated RBC % 0.0 (0.0-0.2) % PT 13.4 (11.1-14.7) Seconds INR 1.0 APTT 25.3 (22.3-36.8) Seconds Sodium 140 (137-145) mmol/L Potassium 3.5 (3.4-5.0) mmol/L Chloride 107 (98-107) mmol/L Carbon Dioxide 20 L (22-30) mmol/L Anion Gap 13 H (4-12) mmol/L BUN 14 (9-20) mg/dL Creatinine 0.83 (0.7-1.3) mg/dL Estim Creat Clear Calc 123 ml/min Estimated GFR > 60 (59 - ) Glucose 147 H (65-110) mg/dL Calcium 9.2 (8.4-10.2) mg/dL Total Bilirubin 0.6 (0.2-1.3) mg/dL AST 42 (17-59) U/L ALT 49 (6-50) U/L Alkaline Phosphatase 107 (38-126) U/L Total Protein 7.6 (6.3-8.2) g/dL Albumin 4.4 (3.5-5.1) g/dL <Kia Gipson PA-C - Last Filed: 07/25/25 00:34> Lab Results 07/24/25 Range/Units 23:28 WBC 12.5 H (4.5-10.0) K/mm3 RBC 4.77 (4.6-6.20) M/mm3 Hgb 15.1 (14.0-18.0) g/dL Hct 46.0 (42.0-52.0) % MCV 96.4 (80-100) fl MCH 31.7 (26-34) pg MCHC 32.8 (32-36) g/dl RDW 13.0 (11.5-14.5) % Plt Count 205 (150-375) k/mm3 MPV 10.9 H (7.4-10.4) fl Immature Gran % (Auto) 0.6 H (0-0.5) % Neut % (Auto) 83.0 H (45.5-73.1) % Lymph % (Auto) 11.3 L (18.3-44.2) % [place] % (Auto) 4.3 (2.6-8.5) % Eos % (Auto) 0.3 (0-4.4) % Baso % (Auto) 0.5 (0.2-1.2) % Lymph # (Auto) 1.41 (0.9-3.2) K/mm3 [place] # (Auto) 0.5 (0.1-0.6) K/mm3 Eos # (Auto) 0.0 (0-0.3) K/mm3 Baso # (Auto) 0.1 (0.0-0.1) K/mm3 Abs Immat Gran (auto) 0.07 H (0.00-0.031) K/mm3 Absolute Neuts (auto) 10.4 H (1.3-6.7) K/mm3 Absolute Nucleated RBC 0.000 (0.0-0.012) K/mm3 Nucleated RBC % 0.0 (0.0-0.2) % PT 13.4 (11.1-14.7) Seconds INR 1.0 APTT 25.3 (22.3-36.8) Seconds Sodium 140 (137-145) mmol/L Potassium 3.5 (3.4-5.0) mmol/L Chloride 107 (98-107) mmol/L Carbon Dioxide 20 L (22-30) mmol/L Anion Gap 13 H (4-12) mmol/L BUN 14 (9-20) mg/dL Creatinine 0.83 (0.7-1.3) mg/dL Estim Creat Clear Calc 123 ml/min Estimated GFR > 60 (59 - ) Glucose 147 H (65-110) mg/dL Calcium 9.2 (8.4-10.2) mg/dL Total Bilirubin 0.6 (0.2-1.3) mg/dL AST 42 (17-59) U/L ALT 49 (6-50) U/L Alkaline Phosphatase 107 (38-126) U/L Total Protein 7.6 (6.3-8.2) g/dL Albumin 4.4 (3.5-5.1) g/dL <Rohan Olmedo MD - Last Filed: 07/25/25 03:19> Imaging Data Radiologist's impression: CT brain: No evidence of acute intracranial abnormality. No ICH, mass effect or edema. No skull fracture. CT cervical spine: No evidence of acute fracture or traumatic subluxation. Multilevel spondylosis. Moderate central canal stenosis at C3/C4. CT thoracic spine: No evidence of acute fracture or traumatic subluxation. No high-grade central canal stenosis. Multilevel spondylosis CT lumbar spine: Fracture of L1 vertebral body with 1.3 cm distraction of the fracture fragments. Associated posttraumatic soft tissue stranding/hematoma and central canal stenosis. Correlate with MRI for cord compromise. Multilevel spondylosis. Severe multilevel lumbar central canal stenosis. Posterior fusion L3-L5 <Kia Gipson PA-C - Last Filed: 07/25/25 00:34> Critical Care Time Critical Care Time Critical Care Time: Yes <Kia Gipson PA-C - Last Filed: 07/25/25 00:34> Total Critical Care Time: 35 <ADAM Kaiser Last Filed: 07/25/25 00:34> Discharge Plan Discharge Clinical Impression: Bilateral leg weakness Closed L1 vertebral fracture Qualifiers: Encounter type: initial encounter Fracture morphology: unspecified fracture morphology Qualified Code(s): S32.019A - Unspecified fracture of first lumbar vertebra, initial encounter for closed fracture <Kia Gipson PA-C - Last Filed: 07/25/25 00:34> Patient Disposition: Acute Care Hospital <ADAM Kaiser Last Filed: 07/25/25 00:34> Condition: Serious <ADAM Kaiser Last Filed: 07/25/25 00:34> Patient Language: Surinamese <ADAM Kaiser Last Filed: 07/25/25 00:34> Prescriptions: No Action Entresto 24-26 mg tablet 1 tablet PO BID Farxiga 5 mg tablet 5 mg PO DAILY atorvastatin 40 mg tablet 40 mg PO DAILY carvedilol 6.25 mg tablet 6.25 mg PO BID clopidogrel 75 mg tablet 75 mg PO DAILY potassium chloride 20 mEq tablet,ER particles/crystals 20 meq PO DAILY allopurinol 300 mg tablet 300 mg PO DAILY furosemide 20 mg tablet 20 mg PO DAILY cholecalciferol (vitamin D3) 25 mcg (1,000 unit) Capsule 50 mcg PO DAILY Men's Multivitamin 400-20-300 mcg Tablet 1 tablet PO DAILY Eliquis 5 mg tablet 5 mg PO DAILY <Kia Gipson PA-C - Last Filed: 07/25/25 00:34> Follow-up/Referrals: Albert,Gianluca Chu MD [Primary Care Provider] <Kia Gipson PA-C - Last Filed: 07/25/25 00:34>
[2025-07-24] MEDS: HYDROmorphone HCL INJ (*CRX) 1 MG/ML SYR IV PUSH (21:46)
[2025-07-24 23:39] LABS: Hematocrit 46.0 % (42.0-52.0); Hemoglobin 15.1 g/dL (14.0-18.0); Immature Granulocyte Percent A 0.6 % (0-0.5); Lymphocytes Absolute Auto 1.41 K/mm3 (0.9-3.2); Mean Corpuscular HGB Conc 32.8 g/dl (32-36); Mean Corpuscular Hemoglobin 31.7 pg (26-34); Mean Corpuscular Volume 96.4 fl (80-100); Nucleated Red Blood Cells Absolute Auto 0.000 K/mm3 (0.0-0.012); Nucleated Red Blood Cells Perc 0.0 % (0.0-0.2); Platelet Count Result 205 k/mm3 (150-375); Red Blood Count 4.77 M/mm3 (4.6-6.20); White Blood Count 12.5 K/mm3 (4.5-10.0)
[2025-07-24 23:49] LABS: Alanine Aminotransferase 49 U/L (6-50); Albumin Level 4.4 g/dL (3.5-5.1); Alkaline Phosphatase 107 U/L (38-126); Anion Gap 13 mmol/L (4-12); Aspartate Amino Transferase 42 U/L (17-59); Bilirubin,Total 0.6 mg/dL (0.2-1.3); Blood Urea Nitrogen 14 mg/dL (9-20); Calcium 9.2 mg/dL (8.4-10.2); Carbon Dioxide 20 mmol/L (22-30); Chloride 107 mmol/L (98-107); Estimated CRCL calculation 123 ml/min; Estimated Glomerular Filt Rate > 60; Glucose 147 mg/dL (65-110); Potassium 3.5 mmol/L (3.4-5.0); Sodium 140 mmol/L (137-145); Total Protein 7.6 g/dL (6.3-8.2)
[2025-07-24 23:55] LABS: INR 1.0; Prothrombin Time 13.4 Seconds (11.1-14.7)
[2025-07-24 23:56] LABS: Partial Thromboplastin Time 25.3 Seconds (22.3-36.8)
[2025-07-25] MEDS: HYDROmorphone HCL INJ (*CRX) 1 MG/ML SYR 0.5 MG IV PUSH (00:10)
[2025-07-25 00:16] VITALS: BP 130/99; PULSE 68; RESP 16; O2SAT 95
== END 2025-07-25 00:34 | disposition short-term general hospital (02) ==
PROVIDERS: Emergency Provider Physician Assistant; PCP Internal Medicine
DX: S32.018A Other fracture of first lumbar vertebra, initial encounter for closed fracture (principal); R53.1 Weakness; I48.91 Unspecified atrial fibrillation; I25.10 Atherosclerotic heart disease of native coronary artery without angina pectoris; I10 Essential (primary) hypertension; E78.5 Hyperlipidemia, unspecified; Z95.5 Presence of coronary angioplasty implant and graft; Z86.0101 Personal history of adenomatous and serrated colon polyps; Z79.02 Long term (current) use of antithrombotics/antiplatelets; Z79.899 Other long term (current) drug therapy; Z79.01 Long term (current) use of anticoagulants; M48.14 Ankylosing hyperostosis [Forestier], thoracic region; Z98.1 Arthrodesis status; M47.816 Spondylosis without myelopathy or radiculopathy, lumbar region; M47.814 Spondylosis without myelopathy or radiculopathy, thoracic region; M47.812 Spondylosis without myelopathy or radiculopathy, cervical region; J32.0 Chronic maxillary sinusitis; W01.0XXA Fall on same level from slipping, tripping and stumbling without subsequent striking against object, initial encounter
CPT/HCPCS: 36415; 70450; 72125; 72128; 72131; 80053; 85025; 85610; 85730; 96374; 96375; 96376; 99285; J1171; J2270; J2405